=== PATIENT | female | born 1945 | race Hispanic/Latino ===

== ENCOUNTER 2017-02-19 13:09 | Inpatient (IN) | payer MEDICARE ==
[2017-02-19 13:09] VITALS: PULSE 92
[2017-02-19 13:57] VITALS: BMI 27.7
[2017-02-19] MEDS ORDERED: cefTRIAXone 1 gm 100 ML IV STA (14:40)
[2017-02-19] MEDS ORDERED: Albuterol-Ipratrop 3 mg / 0.5 (3 ml) UD IH STA (14:40)
[2017-02-19] MEDS ORDERED: Azithromycin 500MG/NS 250ml 250 ML IVPB STA (14:40)
[2017-02-19 15:26] LABS: ADD MANUAL DIFF? NO
[2017-02-19 15:40] LABS: BASO # 0.02 K/mm3 (0.0-2.0); BASO % 0.2 % (0.0-3.0); EOS # 0.2 (0.0-0.7); EOS % 1.5 % (1.5-5.0); GRAN # 10.27 (1.4-6.5); GRAN % 80.1 % (50.0-68.0); LYMPH # 1.4 (1.2-3.4); LYMPH % 10.6 % (22.0-35.0); MEAN CELL VOLUME 95.1 fL (80.0-105.0); MEAN CORPUSCULAR HEMOGLOBIN 32.3 pg (25.0-35.0); MEAN PLATELET VOLUME 9.9 fl (7.0-11.0); MONO % 7.6 % (1.0-6.0); PLATELET COUNT 207 10^3/uL (120.0-450.0); RED CELL DISTRIBUTION WIDTH 12.9 % (11.5-14.5); WHITE BLOOD COUNT 12.8 10^3/ul (4.5-11.0)
[2017-02-19 15:43] LABS: BILIRUBIN,TOTAL 0.5 mg/dL (0.2-1.3); CALCIUM 9.1 mg/dL (8.4-10.5); TOTAL PROTEIN 7.6 g/dL (5.8-8.3)
[2017-02-19 15:54] LABS: TROPONIN I 0.03 ng/mL
--- NOTE | 2017-02-19 15:54 | ED PDOC ---
Arrival/HPI - General Chief Complaint: Medical Clearance Time Seen by Provider: 02/19/17 13:26 - History of Present Illness Narrative History of Present Illness (Text): 02/19/17 15:54 71yo female with hx of CAD, CHF, DM, with cough. Also reports low grade fevers at home. No sob/clancy. Denies cp. Denies relieving or exacerbating symptoms. No other complaints. Past Medical History - Provider Review Nursing Documentation Reviewed: Yes - Infectious Disease Hx of Infectious Diseases: None - Tetanus Immunization Tetanus Immunization: Unknown - Cardiac Hx Cardiac Disorders: Yes Hx Congestive Heart Failure: Yes Hx Hypertension: Yes - Pulmonary Hx Respiratory Disorders: No - Neurological Hx Neurological Disorder: No - HEENT Hx Cataracts: Yes (bilateral laser sx) - Renal Hx Renal Failure: Yes - Endocrine/Metabolic Hx Diabetes Mellitus Type 2: Yes - Hematological/Oncological Hx Blood Disorders: No (MRSA H/O) - Integumentary Other/Comment: STage 3 sacral ulcers. BLE redness w/ scattered scabs. Under breasts folds redness. Bilateral under belly Folds redness skin excoriated - Musculoskeletal/Rheumatological Hx Arthritis: Yes - Gastrointestinal Hx Gastrointestinal Disorders: Yes (umbilical hernia) Hx Ileostomy: Yes - Genitourinary/Gynecological Hx Genitourinary Disorders: No - Psychiatric Hx Psychophysiologic Disorder: No Hx Substance Use: No - Surgical History Hx Amputation: Yes (Left great toe) Hx Cholecystectomy: Yes Hx Open Heart Surgery: Yes Other/Comment: ILEOSTOMY - Anesthesia Hx Anesthesia: Yes Hx Anesthesia Reactions: No Hx Malignant Hyperthermia: No - Suicidal Assessment Feels Threatened In Home Enviroment: No Family/Social History Family/Social History: Unknown Family HX Smoking Status: Former Smoker Hx Alcohol Use: No Hx Substance Use: No Hx Substance Use Treatment: No Allergies/Home Meds Allergies/Adverse Reactions: Allergies shellfish derived Allergy (Verified 02/19/17 13:57) ANAPHYLAXIS Home Medications: Home Meds Medication Instructions Recorded Confirmed Ascorbic Acid [Vitamin C 500 mg 500 mg PO DAILY 02/19/17 02/19/17 Tab] Aspirin [Ecotrin] 81 mg PO DAILY 02/19/17 02/19/17 Cholecalciferol [Vitamin D 1000 IU] 1,000 iu PO DAILY 02/19/17 02/19/17 Cyanocobalamin (Vitamin B-12) 1,000 mcg PO BID 02/19/17 02/19/17 [B-12] Furosemide [Lasix] 80 mg PO BID 02/19/17 02/19/17 Insulin Human NPH [Humulin N] 0 units SC BID 02/19/17 02/19/17 Insulin Human Regular [HumuLIN R] 0 units SC ACHS 02/19/17 02/19/17 Isosorbide Dinitrate 60 mg PO DAILY 02/19/17 02/19/17 Magnesium Glycinate [Mag Glycinate] 500 mg PO DAILY 02/19/17 02/19/17 Metoprolol Tartrate [Lopressor] 100 mg PO BID 02/19/17 02/19/17 Multivitamin [Multivitamins] 1 tab PO DAILY 02/19/17 02/19/17 Pantoprazole Sodium [Protonix] 40 mg PO DAILY 02/19/17 02/19/17 Potassium Chloride [Klor-Con 10 meq PO DAILY 02/19/17 02/19/17 Sprinkle] Primidone [Mysoline] 50 mg PO DAILY 02/19/17 02/19/17 metOLazone [Zaroxolyn] 2.5 mg PO DAILY 02/19/17 02/19/17 Physical Exam - Physical Exam Narrative Physical Exam (Text): - Review of Systems Constitutional: Fevers. absent: Fatigue, Weight Change Eyes: Normal ENT: denies sore throat, denies tristhmus Respiratory: cough. absent: SOB, Sputum Cardiovascular: absent: Chest Pain, Palpitations, Syncope Gastrointestinal: Normal. absent: Abdominal Pain, Diarrhea, Nausea, Vomiting Genitourinary: Normal. absent: Dysuria, Frequency, Hematuria, vaginal bleeding Musculoskeletal: Normal. absent: Arthralgias, Back Pain, Neck Pain Skin: no rashes, no erythema Neurological: absent: Focal Weakness Endocrine: Normal Hemo/Lymphatic: Normal Psychiatric: No suicidal or homicidal ideations Physical exam Patient appears age appropriate in no distress, speaking full sentences without difficulty - Systems Exam Head: Present: Atraumatic, Normocephalic Pupils: Present: PERRL Extroacular Muscles: Present: EOMI Conjunctiva: Present: Normal Mouth: Present: Moist Mucous Membranes Neck: Present: Normal Range of Motion. No: MIDLINE TENDERNESS, Paraspinal Tenderness Respiratory/Chest: Present: L. sided rhonchi, Good Air Exchange. No: Respiratory Distress, Accessory Muscle Use, Tachypneic Cardiovascular: Present: Regular Rate and Rhythm, Normal S1, S2, Peripheal Pulses Present. No: Murmurs Abdomen: Present: Normal Bowel Sounds. No: Tenderness, Distention, Peritoneal Signs, Rebound, Guarding Back: Present: Normal Inspection. No: Midline Tenderness, Paraspinal Tenderness Upper Extremity: Present: Normal Inspection. No: Cyanosis, Edema Lower Extremity: Present: Normal Inspection. No: Edema Neurological: Present: GCS=15, Speech Normal, cranial nerves II through XII fully intact with no cerebellar abnormality, neurosensory fully intact. No focal neurological deficits. Skin: Present: Warm, Dry, Normal Color. No: Rashes Lymphatic: Present: OX3, NI, NC Psychiatric: Present: Alert, Oriented x 3, Normal Insight, Normal Concentration Vital Signs Reviewed: Yes Vital Signs Temp Pulse Resp BP Pulse Ox 02/19/17 19:08 75 16 101/69 98 02/19/17 17:18 68 18 108/65 97 02/19/17 15:08 67 18 105/69 97 02/19/17 13:59 98.3 F 69 16 103/67 97 Temperature: Afebrile Blood Pressure: Normal Pulse: Regular Respiratory Rate: Normal Appearance: Positive for: Well-Appearing Pain Distress: None Mental Status: Positive for: Alert and Oriented X 3 Medical Decision Making ED Course and Treatment: 71-year-old female with history of CHF and coronary artery disease presents the emergency department with fevers, chills, cough, and left sided rhonchi on examination. Differential diagnoses includes but not limited to: Pneumonia versus CHF 02/19/17 17:06 CXR shows R. lobar infiltrate, cardiomegaly, pacemaker, no effusions. Interpreted by de abx ordered case dw Marlyn Flannery and Stephanie, aware of remote tele admission pt aware of and agrees with plan 02/19/17 17:24 EKG shows normal sinus, 80 bpm, no ST segment elevations. Interpreted by me - Lab Interpretations Microbiology Results: Microbiology Results 02/19/17 15:35 Blood-Venous Blood Culture - Preliminary NO GROWTH AFTER 3 DAYS 02/19/17 15:15 Blood-Venous Blood Culture - Preliminary NO GROWTH AFTER 3 DAYS Lab Results: 02/19/17 15:15 02/19/17 15:15 Lab Results 02/19/17 15:15: Phosphorus 4.4, Magnesium 2.2 02/19/17 15:15: Sodium 133, Potassium 4.0, Chloride 96 L, Carbon Dioxide 23, Anion Gap 18, BUN 67 H, Creatinine 2.6 H, Est GFR ( Amer) 22, Est GFR ( Non-Af Amer) 18, Random Glucose 146 H, Calcium 9.1, Total Bilirubin 0.5, AST 32 , ALT 29, Alkaline Phosphatase 100, Troponin I 0.03 D, NT-Pro-B Natriuret Pep 30057 H, Total Protein 7.6, Albumin 3.8, Globulin 3.8, Albumin/Globulin Ratio 1.0 L 02/19/17 15:15: PT 11.3, INR 1.05, APTT 34.5 H 02/19/17 15:15: WBC 12.8 H, RBC 3.68, Hgb 11.9 L, Hct 35.0 L, MCV 95.1, MCH 32.3 , MCHC 34.0, RDW 12.9, Plt Count 207, MPV 9.9, Gran % 80.1 H, Lymph % (Auto) 10.6 L, [place] % (Auto) 7.6 H, Eos % (Auto) 1.5, Baso % (Auto) 0.2, Gran # 10.27 H , Lymph # 1.4, [place] # 1.0 H, Eos # 0.2, Baso # 0.02 - RAD Interpretation Radiology Orders: 02/19/17 15:49 CHEST PORTABLE [RAD] Stat - Medication Orders Current Medication Orders: Discontinued Medications Acetaminophen (Tylenol 325mg Tab) Confirm Administered Dose 650 mg .ROUTE .STK- MED ONE Stop: 02/20/17 04:33 Last Admin: 02/20/17 22:23 Dose: Acetaminophen (Tylenol 325mg Tab) 650 mg PO ONCE ONE Stop: 02/20/17 04:31 Last Admin: 02/20/17 22:23 Dose: Acetaminophen (Tylenol 325mg Tab) 650 mg PO Q6H PRN PRN Reason: Pain, moderate (4-7) Last Admin: 02/22/17 07:51 Dose: 650 mg Albuterol/Ipratropium (Duoneb 3 Mg/0.5 Mg (3 Ml) Ud) 3 ml IH STAT STA Stop: 02/19/17 14:41 Last Admin: 02/19/17 15:25 Dose: 3 ml Ascorbic Acid (Vitamin C 500 Mg Tab) 500 mg PO DAILY [facility] Last Admin: 02/22/17 09:24 Dose: 500 mg Aspirin (Ecotrin) 81 mg PO DAILY [facility] Last Admin: 02/22/17 09:19 Dose: 81 mg Budesonide (Pulmicort Respules) 0.5 mg IH [id number] [facility] Last Admin: 02/22/17 08:39 Dose: 0.5 mg Cholecalciferol (Vitamin D) 1,000 iu PO DAILY [facility] Last Admin: 02/22/17 09:24 Dose: 1,000 iu Cyanocobalamin (Vitamin B12 1000 Mcg Tab) 1,000 mcg PO BID [facility] Last Admin: 02/22/17 09:24 Dose: 1,000 mcg Furosemide (Lasix) 80 mg PO BID [facility] Last Admin: 02/22/17 09:21 Dose: 80 mg Heparin Sodium (Porcine) (Heparin) 5,000 units SC Q12 [facility] Last Admin: 02/22/17 09:19 Dose: 5,000 units Heparin Sodium (Porcine) (Heparin Lock Flush) Confirm Administered Dose 900 unit .ROUTE .STK-MED ONE Stop: 02/20/17 12:36 Last Admin: 02/20/17 12:41 Dose: 900 unit Azithromycin (Zithromax 500mg In Ns) 250 mls @ 167 mls/hr IVPB STAT STA PRN Reason: Protocol Stop: 02/19/17 16:09 Last Admin: 02/19/17 16:26 Dose: 167 mls/hr Ceftriaxone Sodium (Rocephin 1 Gram Ivpb) 100 mls @ 200 mls/hr IV STAT STA PRN Reason: Protocol Stop: 02/19/17 15:09 Last Admin: 02/19/17 15:15 Dose: 200 mls/hr Azithromycin (Zithromax 500mg In Ns) 250 mls @ 167 mls/hr IVPB DAILY [facility] PRN Reason: Protocol Ceftriaxone Sodium (Rocephin 1 Gram Ivpb) 100 mls @ 100 mls/hr IVPB DAILY [facility] PRN Reason: Protocol Last Admin: 02/22/17 09:22 Dose: 100 mls/hr Doxycycline Hyclate 100 mg/ (Sodium Chloride) 100 mls @ 100 mls/hr IVPB Q12H [facility] Last Admin: 02/22/17 09:23 Dose: 100 mls/hr Insulin Human Lispro (Humalog Low) 0 units SC ACHS [facility] PRN Reason: Protocol Last Admin: 02/22/17 07:49 Dose: 2 units Isosorbide Mononitrate (Imdur) 60 mg PO DAILY [facility] Last Admin: 02/22/17 09:20 Dose: 60 mg Levalbuterol HCl (Xopenex) 0.63 mg IH [id number] [facility] Last Admin: 02/22/17 08:39 Dose: 0.63 mg Levalbuterol HCl (Xopenex) 0.63 mg IH Q2 PRN PRN Reason: Shortness of Breath Metolazone (Zaroxolyn) 2.5 mg PO DAILY [facility] Last Admin: 02/22/17 09:25 Dose: 2.5 mg Metoprolol Tartrate (Lopressor) 100 mg PO BID [facility] Last Admin: 02/22/17 09:21 Dose: 100 mg Multivitamins (Thera Tab) 1 tab PO DAILY [facility] Last Admin: 02/22/17 09:23 Dose: 1 tab Non-Formulary Medication (Magnesium Glycinate [Mag Glycinate]) 500 mg PO DAILY [facility] Last Admin: 02/21/17 16:42 Dose: Pantoprazole Sodium (Protonix Ec Tab) 40 mg PO DAILY [facility] Last Admin: 02/22/17 09:22 Dose: 40 mg Potassium Chloride (Klor-Con 10) 10 meq PO BRK [facility] Last Admin: 02/22/17 09:20 Dose: 10 meq Primidone (Mysoline) 50 mg PO HS [facility] Last Admin: 02/21/17 22:33 Dose: 50 mg Disposition/Present on Arrival - Present on Arrival Any Indicators Present on Arrival: No History of DVT/PE: No History of Uncontrolled Diabetes: No Urinary Catheter: No History of Decub. Ulcer: No History Surgical Site Infection Following: None - Disposition Have Diagnosis and Disposition been Completed?: Yes Diagnosis: Pneumonia Disposition: HOSPITALIZED Disposition Time: 17:09 Patient Plan: Admission Condition: GOOD
[2017-02-19 17:14] LABS: INR 1.05 (0.93-1.08); PARTIAL THROMBOPLASTIN TIME 34.5 Seconds (23.7-30.8)
--- NOTE | 2017-02-19 17:49 | CP.PCM.HP ---
<Anthony Colbert - Last Filed: 02/19/17 21:19> History of Present Illness - History of Present Illness History of Present Illness: cc: fever/cough HPI: Patient is a 71yo female with past medical history of CAD s/p CABG, CHF s/ p pacemaker placement, DM type 2, CKD, AAA s/p repair that presented c/o cough and low-grade fevers at home. Patient states that her symptoms started 5 days ago when she began to have productive cough (white phlegm) and low grade fevers (temp 99.3F) at home. She reported taking tylenol which provided moderate relief at first. She stated that she was feeling better originally, however lately her cough has been getting worse. She stated that she was seen by her PMD today, Dr. Flannery who instructed her to come to the emergency room. On arrival to the ED, patient's vitals were as follows: temperature 98.3F, heart rate 69bpm, blood pressure 103/67, respiratory rate 16, o2 saturation 97% on room air. Her labs were notable for a WBC count of 12.8 with left shift, H/H of 11.9/35.0, BUN 67, creatinine 2[place]6 [place] [address]. She denied chest pain , palpitations, SOB, abdominal pain, nausea, vomiting, focal weakness, numbness , tingling, dysuria, frequency, urgency, sick contacts, recent travel. 12 point ROS as per HPI above, otherwise negative PMHx: CAD s/p CABG, CHF s/p pacemaker placement, DM type 2, CKD, AAA s/p repair PSHx: CABG, ileostomy, endovascular repair of AAA, cholecystectomy, pacemaker placement, left toe amputation Allergies: shellfish Medications: reviewed and as per chart Social hx: former tobacco use (quit 16 yrs ago), denies alcohol and illicit drugs Family Hx: Mother: Uterine/Breast Ca; Father: CHF, throat Ca; Brother: leukemia , heart transplant Present on Admission - Present on Admission Any Indicators Present on Admission: No Past Patient History - Infectious Disease Hx of Infectious Diseases: None - Tetanus Immunizations Tetanus Immunization: Unknown - Past Social History Smoking Status: Former Smoker - CARDIAC Hx Cardiac Disorders: Yes Hx Congestive Heart Failure: Yes Hx Hypertension: Yes - PULMONARY Hx Respiratory Disorders: No - NEUROLOGICAL Hx Neurological Disorder: No - HEENT Hx Cataracts: Yes (bilateral laser sx) - RENAL Hx Renal Failure: Yes - ENDOCRINE/METABOLIC Hx Diabetes Mellitus Type 2: Yes - HEMATOLOGICAL/ONCOLOGICAL Hx Blood Disorders: No (MRSA H/O) - INTEGUMENTARY Other/Comment: STage 3 sacral ulcers. BLE redness w/ scattered scabs. Under breasts folds redness. Bilateral under belly Folds redness skin excoriated - MUSCULOSKELETAL/RHEUMATOLOGICAL Hx Arthritis: Yes - GASTROINTESTINAL Hx Gastrointestinal Disorders: Yes (umbilical hernia) Hx Ileostomy: Yes - GENITOURINARY/GYNECOLOGICAL Hx Genitourinary Disorders: No - PSYCHIATRIC Hx Psychophysiologic Disorder: No Hx Substance Use: No - SURGICAL HISTORY Hx Amputation: Yes (Left great toe) Hx Cholecystectomy: Yes Hx Open Heart Surgery: Yes Other/Comment: ILEOSTOMY - ANESTHESIA Hx Anesthesia: Yes Hx Anesthesia Reactions: No Hx Malignant Hyperthermia: No Meds Allergies/Adverse Reactions: Allergies Allergy/AdvReac Type Severity Reaction Status Date / Time shellfish derived Allergy ANAPHYLAXIS Verified 02/19/17 13:57 Physical Exam - Constitutional Appears: Non-toxic, No Acute Distress - Head Exam Head Exam: ATRAUMATIC, NORMAL INSPECTION, NORMOCEPHALIC - Eye Exam Eye Exam: EOMI, PERRL - ENT Exam ENT Exam: Mucous Membranes Moist - Neck Exam Neck exam: Positive for: Normal Inspection. Negative for: Lymphadenopathy, Tenderness, Thyromegaly - Respiratory Exam Respiratory Exam: Rhonchi. absent: Accessory Muscle Use, Clear to Auscultation Bilateral, Rales, Wheezes, Stridor - Cardiovascular Exam Cardiovascular Exam: RRR, +S1, +S2. absent: Clicks, Gallop, JVD, Rubs - GI/Abdominal Exam GI & Abdominal Exam: Normal Bowel Sounds, Soft. absent: Distended, Firm, Guarding, Rebound, Tenderness - Extremities Exam Extremities exam: Negative for: pedal edema - Neurological Exam Neurological exam: Alert, Oriented x3 - Psychiatric Exam Psychiatric exam: Normal Affect, Normal Mood - Skin Skin Exam: Dry, Intact, Normal Color, Warm Results - Vital Signs Recent Vital Signs: Last Vital Signs Temp 98.3 F 02/19/17 13:59 Pulse 68 02/19/17 17:18 Resp 18 02/19/17 17:18 BP 108/65 02/19/17 17:18 Pulse Ox 97 02/19/17 17:18 - Labs Result Diagrams: 02/19/17 15:15 02/19/17 15:15 Labs: Laboratory Results - last 24 hr 02/19/17 15:15 WBC 12.8 H RBC 3.68 Hgb 11.9 L Hct 35.0 L MCV 95.1 MCH 32.3 MCHC 34.0 RDW 12.9 Plt Count 207 MPV 9.9 Gran % 80.1 H Lymph % (Auto) 10.6 L [place] % (Auto) 7.6 H Eos % (Auto) 1.5 Baso % (Auto) 0.2 Gran # 10.27 H Lymph # 1.4 [place] # 1.0 H Eos # 0.2 Baso # 0.02 PT 11.3 INR 1.05 APTT 34.5 H Sodium 133 Potassium 4.0 Chloride 96 L Carbon Dioxide 23 Anion Gap 18 BUN 67 H Creatinine 2.6 H Est GFR ( Amer) 22 Est GFR (Non-Af Amer) 18 Random Glucose 146 H Calcium 9.1 Total Bilirubin 0.5 AST 32 ALT 29 Alkaline Phosphatase 100 Troponin I 0.03 D NT-Pro-B Natriuret Pep 55151 H Total Protein 7.6 Albumin 3.8 Globulin 3.8 Albumin/Globulin Ratio 1.0 L Assessment & Plan - Assessment and Plan (Free Text) Assessment: 71yo female with history of CAD s/p CABG, CHF s/p pacemaker placement, DM type 2 , CKD, AAA s/p repair that presented c/o cough and low-grade fevers at home admitted for community acquired pneumonia Plan: 1. Cough likely 2/2 community acquired pneumonia vs CHF exacerbation -Leukocytosis of 12.8 with left shift on admission, afebrile -CXR reviewed; concerning for possible RML infiltrate, pending official read -Continue with rocephin and azithromycin -Pending: Blood and urine cultures, strep pneum, legionella antigen 2. CHF, likely compensated -NT-proBNP 38473 -Continue home medications lasix, metolazone -Monitor I's and O's -Daily weight 3. DM type 2 -Humalog low dose ISS -Fingersticks ACHS -Consistent carb/heart healthy diet 4. CKD -Will continue to monitor renal function -monitor and replete electrolytes as needed 5. CAD -Continue metoprolol, isosorbide, ASA 81 6. GI/DVT prophylaxis -Protonix/Heparin Case discussed with attending, Dr. Flannery - Date & Time Date: 02/19/17 Time: 18:14 <Yariel Flannery - Last Filed: 03/30/17 08:06> Results - Vital Signs Recent Vital Signs: Last Vital Signs Temp 97.6 F 02/22/17 06:00 Pulse 75 02/22/17 10:00 Resp 19 02/22/17 06:00 BP 140/75 02/22/17 09:21 Pulse Ox 98 02/22/17 06:00 - Labs Result Diagrams: 02/22/17 06:30 02/22/17 06:30 Attending/Attestation - Attestation I have personally seen and examined this patient.: Yes I have fully participated in the care of the patient.: Yes I have reviewed all pertinent clinical information: Yes Notes (Text): 03/30/17 08:04 Medical record note made by the resident after discussion with my direction and input after the patient was personally seen and examined by me. I have reviewed the chart and agree that the record reflects my personal performance of history, physical, data review and course for the patient that I have planned.
[2017-02-19] MEDS ORDERED: CYANOCOBALAMIN 1000 MCG PO SCH (18:00)
[2017-02-19 18:51] LABS: MAGNESIUM 2.2 mg/dL (1.7-2.2); PHOSPHOROUS 4.4 mg/dL (2.5-4.5)
[2017-02-19] MEDS: Insulin Lispro (humaLOG) LOW Coverage SC SCH (22:45)
[2017-02-20 00:14] LABS: URINE BILIRUBIN NEGATIVE (NEGATIVE); URINE BLOOD TRACE-INTACT (NEGATIVE); URINE GLUCOSE (UA) NEGATIVE (NEGATIVE); URINE KETONE NEGATIVE (NEGATIVE); URINE LEUKOCYTE ESTERASE NEGATIVE Leu/uL (NEGATIVE); URINE PROTEIN 100 mg/dL (<30 mg/dL); URINE UROBILINOGEN 0.2 E.U./dL (<1 E.U./dL)
[2017-02-20 00:21] LABS: URINE APPEARANCE CLEAR (CLEAR); URINE COLOR YELLOW (YELLOW)
[2017-02-20 00:26] LABS: URINE EPITHELIAL CELLS 0 - 2 /hpf (0-5); URINE WBC 0 - 2 /hpf (0-6)
[2017-02-20 06:51] LABS: ADD MANUAL DIFF? NO
[2017-02-20 07:05] LABS: BASO # 0.02 K/mm3 (0.0-2.0); BASO % 0.2 % (0.0-3.0); EOS # 0.2 (0.0-0.7); EOS % 1.6 % (1.5-5.0); GRAN # 8.45 (1.4-6.5); GRAN % 77.2 % (50.0-68.0); HEMATOCRIT 34.8 % (36.0-48.0); LYMPH # 1.3 (1.2-3.4); LYMPH % 12.1 % (22.0-35.0); MEAN CELL VOLUME 94.3 fL (80.0-105.0); MEAN CORPUSCULAR HEMOGLOBIN 31.7 pg (25.0-35.0); MEAN CORPUSCULAR HGB CONC 33.6 g/dl (31.0-37.0); MONO % 8.9 % (1.0-6.0); PLATELET COUNT 202 10^3/uL (120.0-450.0); RED CELL DISTRIBUTION WIDTH 12.8 % (11.5-14.5)
[2017-02-20 07:21] LABS: BILIRUBIN,TOTAL 0.6 mg/dL (0.2-1.3); POTASSIUM 3.7 mmol/L (3.6-5.0); TOTAL PROTEIN 7.4 g/dL (5.8-8.3)
--- NOTE | 2017-02-20 08:07 | RAD ---
HISTORY: cough COMPARISON: 12/12/2014 FINDINGS: LUNGS: Bibasilar opacity new since prior examination. Infiltrate versus atelectasis. Follow-up advised. PLEURA: No significant pleural effusion identified, no pneumothorax apparent. CARDIOVASCULAR: AICD. Right central venous infusion port. No change. Sternotomy wires. Normal heart size. OSSEOUS STRUCTURES: No significant abnormalities. VISUALIZED UPPER ABDOMEN: Normal. OTHER FINDINGS: None. IMPRESSION: New bibasilar opacities, nonspecific. Rule out pneumonia. Followup advised.
[2017-02-20] MEDS ORDERED: Levalbuterol 0.63 MG/3 ML Inhal Soln UD IH PRN (08:30)
[2017-02-20] MEDS: Insulin Lispro (humaLOG) LOW Coverage SC SCH ×4 (08:30→22:05)
[2017-02-20] MEDS: Potassium Chloride 10 mEq ER Tab PO SCH (09:00)
[2017-02-20] MEDS ORDERED: Azithromycin 500MG/NS 250ml 250 ML IVPB SCH (10:00)
--- NOTE | 2017-02-20 10:04 | CON ---
DATE: 02/20/2017 PULMONARY CONSULTATION REASON FOR CONSULTATION: Pneumonia. REFERRING PHYSICIAN: Yariel Flannery MD. HISTORY OF PRESENT ILLNESS: The patient is a 71-year-old female with past medical history significant for coronary artery disease, status post coronary bypass graft surgery, recurrent congestive heart failure, end-stage cardiomyopathy, status post permanent pacemaker, diabetes mellitus, chronic kidney disease, peripheral vascular disease, who presents to [facility] with a 5-day history of progressive shortness of breath at rest, dyspnea on exertion, cough, and minimal sputum production. There is no history of chest pain, coughing up of blood, or chest pain - made worse with deep respirations. The patient does state to low-grade fevers at home. No history of chills or infectious exposure. No history of night sweats, weight loss, or appetite change prior to the above events. No history of leg or calf pains. No history of syncope or diaphoresis. No history of recent travel or trauma. REVIEW OF SYSTEMS: No history of nausea, vomiting, or diarrhea. No acute urinary symptoms. No new neurological or musculoskeletal complaints. The rest of the review of systems is negative. ALLERGIES: SHELLFISH. SOCIAL HISTORY: Positive for tobacco, negative for alcohol. FAMILY HISTORY: No inheritable diseases. HOME MEDICATIONS: Include Mysoline, Humulin, Zaroxolyn, Ecotrin, Protonix, Lopressor, Lasix, isosorbide dinitrate. PHYSICAL EXAMINATION: GENERAL: The patient appears comfortable this morning. She is not short of breath at rest. VITAL SIGNS: Temperature is 98.3, pulse 86, respirations 19, blood pressure 117 /80. Oxygen saturation on nasal cannula is 98%. HEENT: Normocephalic, atraumatic. NECK: No JVD. CARDIOVASCULAR: Systolic ejection murmur at the lower left sternal border. Positive S3 gallop. LUNGS: Minimal crackles at the bases. Minimal rhonchi. No wheezing. EXTREMITIES: Mild edema. No cyanosis, no clubbing. Calves are nontender to palpation. GASTROINTESTINAL: Abdomen is soft, nontender, nondistended. Bowel sounds are positive. SKIN: Positive for edema. No cyanosis, no clubbing. Calves are nontender to palpation. NEUROLOGIC: Limited at the present time. PERTINENT LABORATORY DATA: Chest x-ray was done and reviewed. There is a new small patchy infiltrate noted at the right base. There is also a mild increase in pulmonary vascular congestive changes. CBC: White count 11.0, hemoglobin 11.7, hematocrit 34.8, platelets of 202. Initial white count 12.8. Complete metabolic profile: BUN 63, creatinine 2.3, glucose 176, B-type natriuretic peptide 62069. The rest of the metabolic profile is within normal limits. IMPRESSION: 1. Right lower lobe pneumonia. 2. Recurrent congestive heart failure. 3. End-stage cardiomyopathy. 4. Coronary artery disease. 5. Chronic kidney disease. PLAN: The patient presents to [facility] with a 5-day history of worsening pulmonary symptoms. I did review the chest x-ray as above. There is a new patchy infiltrate noted at the right lower lobe. Arce cultures have been ordered and will be analyzed when feasible. The patient has been started on appropriate antibiotic therapy. I would continue with the current antibiotic therapy for now. There have been no temperatures measured in the hospital. The leukocytosis has now resolved. On physical exam, the patient is mild bronchospasm. I will start Xopenex nebulizer treatments and inhaled steroids this morning. The patient remains on Lasix/afterload reduction. The patient does state to feeling much better this morning - compared to the past few days. She is clinically improved. Additional pulmonary intervention will be based on the clinical status of the patient. I will discuss the above with Dr. Flannery. Thank you very much for this pulmonary consultation. Andrei Corona MD cc: [phone] TT: 02/20/2017 10:04:34 Confirmation # [id number] Dictation # [id number] MTDD
[2017-02-20] MEDS: Pantoprazole 40 mg EC Tab PO SCH (10:27)
[2017-02-20] MEDS: Multivitamin Therapeutic Tab PO SCH (10:27)
[2017-02-20] MEDS: MAGNESIUM GLYCINATE PO SCH (10:28)
[2017-02-20] MEDS: cefTRIAXone 1 gm 100 ML IVPB SCH (10:28)
[2017-02-20] MEDS: metOLazone 2.5 MG TAB PO SCH (10:38)
--- NOTE | 2017-02-20 11:22 | CARD ---
APPROVED REPORT EKG Measurement Heart [id number] <Conclusion> Normal sinus rhythm Possible Left atrial enlargement Left ventricular hypertrophy with repolarization abnormality Abnormal ECG
--- NOTE | 2017-02-20 12:47 | CON ---
DATE: 02/20/2017 HISTORY OF PRESENT ILLNESS: The patient is a 71-year-old woman who presents with pneumonia. The patient denies shortness of breath. PAST MEDICAL HISTORY: Notable for end-stage dilated cardiomyopathy with recurrent CHF and which she was treated with home inotropic therapy for a while. After much control with diet and salt intake, t he patient was weaned off the inotropic therapy and has been off inotropes for several months now. Her ejection fraction is approximately 20%. She is status post ICD placement. She denies chest pain, denies edema in the lower extremities. SOCIAL HISTORY: Denies active smoking. REVIEW OF SYSTEMS: A 14-point review of systems was reviewed in detail. The patient is free of card iac symptomatology. PHYSICAL EXAMINATION: VITAL SIGNS: Blood pressure is 120/70, heart rate is in the 80s. NECK: Negative JVD. LUNGS: Minimal crackles at the bases. HEART: Reveals S1, S2. EXTREMITIES: Without edema. LABORATORY DATA: EKG shows no acute changes. Hemoglobin is 11.7. Chemistries: Glucose is 176 with a BUN and creatinine of 63 and 2.3. ProBNP is greater than 14,000. IMPRESSION: 1. Pneumonia. 2. Mild acute systolic congestive heart failure. 3. End-stage dilated cardiomyopathy. 4. Diabetes mellitus. 5. Renal insufficiency. 6. Anemia. PLAN: Given these findings, I agree with giving IV Lasix. IV antibiotics have been ordered. There is no indication at this time for IV inotropic therapy. Vinnie Vidales MD cc: [id number] TT: 02/20/2017 12:46:22 Confirmation # [id number] Dictation # [id number] chu
[2017-02-20] MEDS: Levalbuterol 0.63 MG/3 ML Inhal Soln UD IH SCH ×2 (13:29→20:29)
--- NOTE | 2017-02-20 14:10 | CP.PCM.PN ---
<Anthony Colbert - Last Filed: 02/20/17 17:55> Subjective - Date & Time of Evaluation Date of Evaluation: 02/20/17 Time of Evaluation: 14:07 - Subjective Subjective: Medicine progress note - Anthony Colbert PGY1 Patient seen and examined at bedside this morning. No acute overnight events or new complaints. Discussed patient's test results and current plan of treatment. She is getting IV antibiotics for her CAP infection. Patient to be evaluated by cardiology and pulmonology. Objective - Vital Signs/Intake and Output Vital Signs (last 24 hours): Temp Pulse Resp BP Pulse Ox 98.3 F 90 19 120/70 98 02/20/17 01:03 02/20/17 02:00 02/20/17 01:03 02/20/17 11:59 02/20/17 13:31 - Medications Medications: Current Medications Ascorbic Acid (Vitamin C 500 Mg Tab) 500 mg PO DAILY [facility] Last Admin: 02/20/17 10:27 Dose: 500 mg Aspirin (Ecotrin) 81 mg PO DAILY [facility] Last Admin: 02/20/17 10:27 Dose: 81 mg Budesonide (Pulmicort Respules) 0.5 mg IH [id number] [facility] Cholecalciferol (Vitamin D) 1,000 iu PO DAILY [facility] Last Admin: 02/20/17 10:27 Dose: 1,000 iu Cyanocobalamin (Vitamin B12 1000 Mcg Tab) 1,000 mcg PO BID [facility] Last Admin: 02/20/17 10:38 Dose: 1,000 mcg Furosemide (Lasix) 80 mg PO BID [facility] Last Admin: 02/19/17 19:54 Dose: Not Given Heparin Sodium (Porcine) (Heparin) 5,000 units SC Q12 [facility] Last Admin: 02/20/17 10:29 Dose: 5,000 units Ceftriaxone Sodium (Rocephin 1 Gram Ivpb) 100 mls @ 100 mls/hr IVPB DAILY [facility] PRN Reason: Protocol Last Admin: 02/20/17 10:28 Dose: 100 mls/hr Doxycycline Hyclate 100 mg/ (Sodium Chloride) 100 mls @ 100 mls/hr IVPB Q12H [facility] Last Admin: 02/20/17 10:38 Dose: 100 mls/hr Insulin Human Lispro (Humalog Low) 0 units SC ACHS [facility] PRN Reason: Protocol Last Admin: 02/20/17 11:59 Dose: 4 units Isosorbide Mononitrate (Imdur) 60 mg PO DAILY [facility] Last Admin: 02/20/17 10:27 Dose: 60 mg Levalbuterol HCl (Xopenex) 0.63 mg IH [id number] [facility] Last Admin: 02/20/17 13:29 Dose: 0.63 mg Levalbuterol HCl (Xopenex) 0.63 mg IH Q2 PRN PRN Reason: Shortness of Breath Metolazone (Zaroxolyn) 2.5 mg PO DAILY [facility] Last Admin: 02/20/17 10:38 Dose: 2.5 mg Metoprolol Tartrate (Lopressor) 100 mg PO BID [facility] Last Admin: 02/19/17 19:54 Dose: Not Given Multivitamins (Thera Tab) 1 tab PO DAILY [facility] Last Admin: 02/20/17 10:27 Dose: 1 tab Non-Formulary Medication (Magnesium Glycinate [Mag Glycinate]) 500 mg PO DAILY [facility] Last Admin: 02/20/17 10:28 Dose: 500 mg Pantoprazole Sodium (Protonix Ec Tab) 40 mg PO DAILY [facility] Last Admin: 02/20/17 10:27 Dose: 40 mg Potassium Chloride (Klor-Con 10) 10 meq PO BRK [facility] Last Admin: 02/20/17 09:00 Dose: 10 meq Primidone (Mysoline) 50 mg PO HS [facility] Last Admin: 02/20/17 02:11 Dose: Not Given - Labs Labs: 02/20/17 05:00 02/20/17 06:25 PT 11.3 Seconds (9.9-11.8) 02/19/17 15:15 INR 1.05 (0.93-1.08) 02/19/17 15:15 APTT 34.5 Seconds (23.7-30.8) H 02/19/17 15:15 - Constitutional Appears: Non-toxic, No Acute Distress - Head Exam Head Exam: ATRAUMATIC, NORMAL INSPECTION, NORMOCEPHALIC - Eye Exam Eye Exam: EOMI, PERRL - ENT Exam ENT Exam: Mucous Membranes Moist - Neck Exam Neck Exam: Normal Inspection - Respiratory Exam Respiratory Exam: Rhonchi. absent: Clear to Ausculation Bilateral, Rales, Wheezes - Cardiovascular Exam Cardiovascular Exam: RRR, +S1, +S2. absent: Clicks, Gallop, Rubs, Murmur - GI/Abdominal Exam GI & Abdominal Exam: Soft, Normal Bowel Sounds. absent: Distended, Firm, Guarding, Tenderness, Rebound - Extremities Exam Extremities Exam: Normal Inspection - Neurological Exam Neurological Exam: Alert, Awake, Oriented x3 - Psychiatric Exam Psychiatric exam: Normal Affect, Normal Mood - Skin Skin Exam: Dry, Intact, Normal Color, Warm Assessment and Plan - Assessment and Plan (Free Text) Plan: 71yo female with history of CAD s/p CABG, CHF s/p pacemaker placement, DM type 2 , CKD, AAA s/p repair that presented c/o cough and low-grade fevers at home admitted for community acquired pneumonia 1. Cough likely 2/2 community acquired pneumonia vs CHF exacerbation -Leukocytosis of 12.8 with left shift on admission, afebrile -CXR reviewed; consistent with bibasilar community acquired pneumonia -Continue with rocephin and doxycycline -Pending: Blood and urine cultures, strep pneum, legionella antigen -Pulmonology consulted - Dr. Corona 2. CHF, likely compensated -NT-proBNP 35045 -Continue home medications lasix, metolazone -Monitor I's and O's -Daily weight -Cardiology consulted - Dr. Vidales 3. DM type 2 -Humalog low dose ISS -Fingersticks ACHS -Consistent carb/heart healthy diet 4. CKD -Will continue to monitor renal function -monitor and replete electrolytes as needed 5. CAD -Continue metoprolol, isosorbide, ASA 81 6. GI/DVT prophylaxis -Protonix/Heparin Case discussed with attending, Dr. Flannery <Yariel Flannery - Last Filed: 03/30/17 08:07> Objective - Vital Signs/Intake and Output Vital Signs (last 24 hours): Temp Pulse Resp BP Pulse Ox 97.6 F 75 19 140/75 98 02/22/17 06:00 02/22/17 10:00 02/22/17 06:00 02/22/17 09:21 02/22/17 06:00 - Labs Labs: 02/22/17 06:30 02/22/17 06:30 PT 11.3 Seconds (9.9-11.8) 02/19/17 15:15 INR 1.05 (0.93-1.08) 02/19/17 15:15 APTT 34.5 Seconds (23.7-30.8) H 02/19/17 15:15 Attending/Attestation - Attestation I have personally seen and examined this patient.: Yes I have fully participated in the care of the patient.: Yes I have reviewed all pertinent clinical information, including history, physical exam and plan: Yes Notes (Text): 03/30/17 08:06 Medical record note made by the resident after discussion with my direction and input after the patient was personally seen and examined by me. I have reviewed the chart and agree that the record reflects my personal performance of history, physical, data review and course for the patient that I have planned.
[2017-02-20] MEDS: Budesonide 0.5 mg/2 ml Inhal Susp UD IH SCH (20:29)
[2017-02-21] MEDS: Levalbuterol 0.63 MG/3 ML Inhal Soln UD IH SCH ×3 (02:10→19:46)
[2017-02-21] MEDS: Budesonide 0.5 mg/2 ml Inhal Susp UD IH SCH ×2 (07:49→19:46)
[2017-02-21] MEDS: Potassium Chloride 10 mEq ER Tab PO SCH (08:02)
[2017-02-21] MEDS: Insulin Lispro (humaLOG) LOW Coverage SC SCH ×4 (08:03→22:40)
[2017-02-21 08:36] LABS: ADD MANUAL DIFF? NO
[2017-02-21 08:39] LABS: BASO # 0.02 K/mm3 (0.0-2.0); BASO % 0.3 % (0.0-3.0); EOS # 0.3 (0.0-0.7); EOS % 3.7 % (1.5-5.0); GRAN # 5.25 (1.4-6.5); GRAN % 71.3 % (50.0-68.0); HEMATOCRIT 35.2 % (36.0-48.0); LYMPH # 1.2 (1.2-3.4); LYMPH % 16.7 % (22.0-35.0); MEAN CELL VOLUME 93.6 fL (80.0-105.0); MEAN CORPUSCULAR HEMOGLOBIN 31.4 pg (25.0-35.0); MEAN CORPUSCULAR HGB CONC 33.5 g/dl (31.0-37.0); MEAN PLATELET VOLUME 9.5 fl (7.0-11.0); MONO # 0.6 (0.1-0.6); PLATELET COUNT 194 10^3/uL (120.0-450.0); RED CELL DISTRIBUTION WIDTH 12.7 % (11.5-14.5); WHITE BLOOD COUNT 7.4 10^3/ul (4.5-11.0)
[2017-02-21 08:51] LABS: BILIRUBIN,TOTAL 0.5 mg/dL (0.2-1.3); CALCIUM 9.2 mg/dL (8.4-10.5); POTASSIUM 3.9 mmol/L (3.6-5.0); TOTAL PROTEIN 7.4 g/dL (5.8-8.3)
--- NOTE | 2017-02-21 10:29 | PN ---
DATE: 02/21/2017 SUBJECTIVE: The patient appears comfortable this morning. She is not short of breath at rest. PHYSICAL EXAMINATION: VITAL SIGNS: Temperature is 98.2, pulse 80, respirations 18/20, blood pressure 132/74. Oxygen saturation on room air is 97%. HEENT: Normocephalic, atraumatic. No JVD. CARDIOVASCULAR: Systolic ejection murmur at the lower left sternal border. Positive S3 gallop. LUNGS: Minimal crackles at the bases. Less rhonchi. No wheezing. EXTREMITIES: Mild edema. No cyanosis, no clubbing. Calves are nontender to palpation. GASTROINTESTINAL: Abdomen is soft, nontender, nondistended. Bowel sounds are positive. SKIN: No acute rash. NEUROLOGIC: Limited at the present time. IMPRESSION: 1. Right lower lobe pneumonia. 2. Recurrent congestive heart failure. 3. End-stage cardiomyopathy. 4. Coronary artery disease. 5. Chronic kidney disease. PLAN: The patient appears much more comfortable this morning. She is not short of breath at rest. She states she is feeling much better overall. On physical exam, there is certainly less bronchospasm noted. I will continue with the current nebulizer treatments and inhaled steroids for now. The patient also remains on antibiotic therapy. Her temperatures have resolved. Her leukocytosis has also resolved. Input by Dr. Vidales -- cardiology -- is noted. The patient remains on Lasix/afterload reduction. I have also ordered a repeat chest x-ray -- for this morning, and will check that when feasible. Clinical status of the patient is certainly improved. I have advised the patient to be out of bed and slowly increasing her activity as tolerated. I will discuss the above with Dr. Flannery. Andrei Corona MD cc: [phone] TT: 02/21/2017 10:29:13 Confirmation # [id number] Dictation # [id number] en MTDD
[2017-02-21] MEDS: cefTRIAXone 1 gm 100 ML IVPB SCH (10:34)
[2017-02-21] MEDS: Multivitamin Therapeutic Tab PO SCH (10:36)
[2017-02-21] MEDS: Pantoprazole 40 mg EC Tab PO SCH (10:36)
[2017-02-21] MEDS: metOLazone 2.5 MG TAB PO SCH (10:37)
--- NOTE | 2017-02-21 10:38 | RAD ---
HISTORY: follow up COMPARISON: 02/19/2017 TECHNIQUE: Chest PA and lateral FINDINGS: LUNGS: The bibasilar in near patchy opacities at each lung base are renoted and similar-appearing. As mentioned previously -bibasilar infiltrates and/or atelectatic changes are consistent with this. PLEURA: No significant pleural effusion identified. No pneumothorax apparent. Minimal left inferolateral pleural thickening reaction is probable CARDIOVASCULAR: Probable left ventricular enlargement -not significantly changed. AICD device in place. And a wires in place. Minimal tortuosity of the thoracic aorta similar-appearing. Right central venous port inserted- tip similar in appearance to the superior vena cava. OSSEOUS STRUCTURES: Inferior thoracic bilateral shoulder mild arthrosis VISUALIZED UPPER ABDOMEN: Normal. OTHER FINDINGS: None. IMPRESSION: Similar bibasilar linear and patchy opacities - bibasilar patchy infiltrate need be considered. Minimal left inferolateral pleural thickening also suggested. Overall the appearance is not significantly changed. No pulmonary venous congestion suggested on this exam
--- NOTE | 2017-02-21 14:29 | PN ---
DATE: 02/21/2017 The patient's breathing is stable. No shortness of breath noted. PHYSICAL EXAMINATION: VITAL SIGNS: Blood pressure varies from 132-170 systolic. The heart rate is in the 80s. NECK: Negative JVD. LUNGS: Without rales. HEART: Reveals S1, S2. EXTREMITIES: Without edema. LABORATORY DATA: BUN and creatinine are 54/1.9, glucose is 235. IMPRESSION: 1. Pneumonia. 2. End-stage dilated cardiomyopathy. 3. Coronary artery disease. 4. Diabetes mellitus. 5. Recurrent congestive heart failure, which is stable now. 6. Renal insufficiency. Given these findings, the patient is doing well. The patient is currently on antibiotics. There is no need to go back on IV Primacor. Vinnie Vidales MD cc: [id number] TT: 02/21/2017 14:28:36 Confirmation # [id number] Dictation # [id number] [email or web address]
--- NOTE | 2017-02-21 15:25 | CP.PCM.PN ---
<Anthony Colbert - Last Filed: 02/21/17 21:00> Subjective - Date & Time of Evaluation Date of Evaluation: 02/21/17 Time of Evaluation: 15:22 - Subjective Subjective: Medicine progress note - Anthony Colbert PGY1 Patient seen and examined at bedside this morning. No acute events overnight or new complaints. Patient currently on IV antibiotics for CAP, tolerating treatment well. Discussed plan with patient. Denies chest pain, palpitations, SOB. Objective - Vital Signs/Intake and Output Vital Signs (last 24 hours): Temp Pulse Resp BP Pulse Ox 98.2 F 83 20 170/93 H 97 02/21/17 06:00 02/21/17 10:36 02/21/17 06:00 02/21/17 10:36 02/21/17 06:00 Intake and Output: 02/21/17 02/21/17 06:59 18:59 Intake Total 1140 700 Balance 1140 700 - Medications Medications: Current Medications Acetaminophen (Tylenol 325mg Tab) 650 mg PO Q6H PRN PRN Reason: Pain, moderate (4-7) Last Admin: 02/21/17 00:41 Dose: 650 mg Ascorbic Acid (Vitamin C 500 Mg Tab) 500 mg PO DAILY [facility] Last Admin: 02/21/17 10:37 Dose: 500 mg Aspirin (Ecotrin) 81 mg PO DAILY [facility] Last Admin: 02/21/17 10:36 Dose: 81 mg Budesonide (Pulmicort Respules) 0.5 mg IH [id number] [facility] Last Admin: 02/21/17 07:49 Dose: 0.5 mg Cholecalciferol (Vitamin D) 1,000 iu PO DAILY [facility] Last Admin: 02/21/17 10:37 Dose: 1,000 iu Cyanocobalamin (Vitamin B12 1000 Mcg Tab) 1,000 mcg PO BID [facility] Last Admin: 02/21/17 10:37 Dose: 1,000 mcg Furosemide (Lasix) 80 mg PO BID [facility] Last Admin: 02/21/17 10:36 Dose: 80 mg Heparin Sodium (Porcine) (Heparin) 5,000 units SC Q12 [facility] Last Admin: 02/21/17 10:34 Dose: 5,000 units Ceftriaxone Sodium (Rocephin 1 Gram Ivpb) 100 mls @ 100 mls/hr IVPB DAILY [facility] PRN Reason: Protocol Last Admin: 02/21/17 10:34 Dose: 100 mls/hr Doxycycline Hyclate 100 mg/ (Sodium Chloride) 100 mls @ 100 mls/hr IVPB Q12H [facility] Last Admin: 02/21/17 10:37 Dose: 100 mls/hr Insulin Human Lispro (Humalog Low) 0 units SC ACHS [id number] PRN Reason: Protocol Last Admin: 02/21/17 12:32 Dose: 4 units Isosorbide Mononitrate (Imdur) 60 mg PO DAILY [facility] Last Admin: 02/21/17 10:36 Dose: 60 mg Levalbuterol HCl (Xopenex) 0.63 mg IH [id number] [facility] Last Admin: 02/21/17 07:49 Dose: 0.63 mg Levalbuterol HCl (Xopenex) 0.63 mg IH Q2 PRN PRN Reason: Shortness of Breath Metolazone (Zaroxolyn) 2.5 mg PO DAILY [facility] Last Admin: 02/21/17 10:37 Dose: 2.5 mg Metoprolol Tartrate (Lopressor) 100 mg PO BID [facility] Last Admin: 02/21/17 10:36 Dose: 100 mg Multivitamins (Thera Tab) 1 tab PO DAILY [facility] Last Admin: 02/21/17 10:36 Dose: 1 tab Non-Formulary Medication (Magnesium Glycinate [Mag Glycinate]) 500 mg PO DAILY [facility] Last Admin: 02/20/17 10:28 Dose: 500 mg Pantoprazole Sodium (Protonix Ec Tab) 40 mg PO DAILY [facility] Last Admin: 02/21/17 10:36 Dose: 40 mg Potassium Chloride (Klor-Con 10) 10 meq PO BRK [facility] Last Admin: 02/21/17 08:02 Dose: 10 meq Primidone (Mysoline) 50 mg PO HS [facility] Last Admin: 02/20/17 22:03 Dose: Not Given - Labs Labs: 02/21/17 07:50 02/21/17 07:50 PT 11.3 Seconds (9.9-11.8) 02/19/17 15:15 INR 1.05 (0.93-1.08) 02/19/17 15:15 APTT 34.5 Seconds (23.7-30.8) H 02/19/17 15:15 - Constitutional Appears: Well, Non-toxic, No Acute Distress - Head Exam Head Exam: ATRAUMATIC, NORMAL INSPECTION, NORMOCEPHALIC - Eye Exam Eye Exam: EOMI Pupil Exam: PERRL - ENT Exam ENT Exam: Mucous Membranes Moist - Neck Exam Neck Exam: Normal Inspection - Respiratory Exam Respiratory Exam: Rhonchi. absent: Accessory Muscle Use, Rales, Wheezes Additional comments: bilateral ronchi at the bases, improved since admission - Cardiovascular Exam Cardiovascular Exam: +S1, +S2. absent: Bradycardia, Tachycardia, Clicks, Diastolic murmur, Gallop, Rubs, Murmur - GI/Abdominal Exam GI & Abdominal Exam: Soft, Normal Bowel Sounds. absent: Firm, Guarding, Rigid, Tenderness, Rebound - Extremities Exam Extremities Exam: Normal Inspection. absent: Pedal Edema - Neurological Exam Neurological Exam: Alert, Awake, Oriented x3 - Psychiatric Exam Psychiatric exam: Normal Affect, Normal Mood - Skin Skin Exam: Dry, Intact, Normal Color, Warm Assessment and Plan - Assessment and Plan (Free Text) Plan: 71yo female with history of CAD s/p CABG, CHF s/p pacemaker placement, DM type 2 , CKD, AAA s/p repair that presented c/o cough and low-grade fevers at home admitted for community acquired pneumonia 1. Community acquired pneumonia -Leukocytosis of 12.8 with left shift on admission, afebrile -CXR reviewed; consistent with bibasilar community acquired pneumonia -Continue with rocephin and doxycycline -Blood and urine cultures reveal no growth -Pulmonology consulted - Dr. Corona 2. CHF, compensated -NT-proBNP 39885 -Continue home medications lasix, metolazone -Monitor I's and O's -Daily weight -Cardiology consulted - Dr. Vidales 3. DM type 2 -Humalog low dose ISS -Fingersticks ACHS -Consistent carb/heart healthy diet 4. CKD -Will continue to monitor renal function -monitor and replete electrolytes as needed 5. CAD -Continue metoprolol, isosorbide, ASA 81 6. GI/DVT prophylaxis -Protonix/Heparin Case discussed with attending, Dr. Flannery <Yariel Flannery - Last Filed: 03/30/17 08:07> Objective - Vital Signs/Intake and Output Vital Signs (last 24 hours): Temp Pulse Resp BP Pulse Ox 97.6 F 75 19 140/75 98 02/22/17 06:00 02/22/17 10:00 02/22/17 06:00 02/22/17 09:21 02/22/17 06:00 - Labs Labs: 02/22/17 06:30 02/22/17 06:30 PT 11.3 Seconds (9.9-11.8) 02/19/17 15:15 INR 1.05 (0.93-1.08) 02/19/17 15:15 APTT 34.5 Seconds (23.7-30.8) H 02/19/17 15:15 Attending/Attestation - Attestation I have personally seen and examined this patient.: Yes I have fully participated in the care of the patient.: Yes I have reviewed all pertinent clinical information, including history, physical exam and plan: Yes Notes (Text): 03/30/17 08:07 Medical record note made by the resident after discussion with my direction and input after the patient was personally seen and examined by me. I have reviewed the chart and agree that the record reflects my personal performance of history, physical, data review and course for the patient that I have planned.
[2017-02-21] MEDS: MAGNESIUM GLYCINATE PO SCH (16:42)
[2017-02-21 19:10] VITALS: TEMP 97.6
[2017-02-22] MEDS: Levalbuterol 0.63 MG/3 ML Inhal Soln UD IH SCH ×2 (01:56→08:39)
--- NOTE | 2017-02-22 07:48 | PN ---
DATE: 02/22/2017 SUBJECTIVE: The patient appears very comfortable at rest. She is not short of breath. PHYSICAL EXAMINATION: VITAL SIGNS: Temperature is 97.6, pulse is 70, respirations 18, blood pressure 150/86. Oxygen saturation on room air is 100%. HEENT: Normocephalic, atraumatic. No JVD. CARDIOVASCULAR: Systolic ejection murmur at the lower left sternal border. No S3 gallop. LUNGS: Very minimal crackles at the bases. Otherwise clear. EXTREMITIES: Less edema. No cyanosis, no clubbing. Calves are nontender to palpation. GASTROINTESTINAL: Abdomen is soft, nontender, nondistended. Bowel sounds are positive. SKIN: No acute rash. NEUROLOGIC: Limited at the present time. PERTINENT LABORATORY DATA: Repeat chest x-ray was done and reviewed. Compared to the film of 02/19/2017, the most current film is improved and shows a decrease in the right lower lobe infiltrate. IMPRESSION: 1. Right lower lobe pneumonia -- resolving. 2. Recurrent congestive heart failure. 3. End-stage cardiomyopathy. 4. Coronary artery disease. 5. Chronic kidney disease. PLAN: The patient appears very comfortable this morning. She is not short of breath at rest. She states she is feeling much better overall. On physical exam, her bronchospasm continues to resolve. In addition, the oxygen saturation on room air is now 100%. I will continue with the current nebulizer treatments and inhaled steroids for now. I did review the latest x-ray as above. The x-ray is improved -- with a decrease in the infiltrate noted at the right lower lobe. The patient remains on antibiotic therapy. All cultures remain negative so far. There are no temperatures noted. The leukocytosis has resolved. We can probably change to oral antibiotic therapy at this point in time. Clinical status of the patient is significantly improved -- compared to the initial presentation. I will discuss the above with Dr. Flannery. Andrei Corona MD cc: [phone] TT: 02/22/2017 07:47:32 Confirmation # [id number] Dictation # [id number] en MTDD
[2017-02-22] MEDS: Insulin Lispro (humaLOG) LOW Coverage SC SCH (07:49)
[2017-02-22 07:55] LABS: ADD MANUAL DIFF? NO
[2017-02-22 08:02] LABS: BASO # 0.01 K/mm3 (0.0-2.0); BASO % 0.1 % (0.0-3.0); EOS # 0.3 (0.0-0.7); EOS % 3.3 % (1.5-5.0); GRAN % 78.3 % (50.0-68.0); HEMATOCRIT 36.1 % (36.0-48.0); LYMPH # 1.1 (1.2-3.4); LYMPH % 12.5 % (22.0-35.0); MEAN CELL VOLUME 93.3 fL (80.0-105.0); MEAN CORPUSCULAR HEMOGLOBIN 31.5 pg (25.0-35.0); MEAN CORPUSCULAR HGB CONC 33.8 g/dl (31.0-37.0); MEAN PLATELET VOLUME 9.7 fl (7.0-11.0); MONO # 0.5 (0.1-0.6); MONO % 5.8 % (1.0-6.0); PLATELET COUNT 227 10^3/uL (120.0-450.0); RED CELL DISTRIBUTION WIDTH 12.6 % (11.5-14.5); WHITE BLOOD COUNT 8.6 10^3/ul (4.5-11.0)
[2017-02-22 08:08] VITALS: RESP 19; O2SAT 98
[2017-02-22 08:13] LABS: BILIRUBIN,TOTAL 0.5 mg/dL (0.2-1.3); CALCIUM 9.2 mg/dL (8.4-10.5); TOTAL PROTEIN 7.5 g/dL (5.8-8.3)
[2017-02-22] MEDS: Budesonide 0.5 mg/2 ml Inhal Susp UD IH SCH (08:39)
[2017-02-22] MEDS: Potassium Chloride 10 mEq ER Tab PO SCH (09:20)
[2017-02-22] MEDS: cefTRIAXone 1 gm 100 ML IVPB SCH (09:22)
[2017-02-22] MEDS: Pantoprazole 40 mg EC Tab PO SCH (09:22)
[2017-02-22] MEDS: Multivitamin Therapeutic Tab PO SCH (09:23)
[2017-02-22] MEDS: metOLazone 2.5 MG TAB PO SCH (09:25)
[2017-02-22 09:32] VITALS: BP 140/75
[2017-02-22 10:56] VITALS: PULSE 75
--- NOTE | 2017-02-22 10:59 | CP.PCM.DIS ---
<Anthony Colbert - Last Filed: 02/25/17 11:40> Provider - Provider Date of Admission: 02/19/17 17:09 Attending physician: Yariel Flannery MD Primary care physician: Yariel Flannery MD Consults: Pulmonary - Dr. Corona Cardiology - Dr. Vidales Time Spent in preparation of Discharge (in minutes): 30 Hospital Course - Lab Results Lab Results: Micro Results 02/19/17 23:45 Urine,Clean Catch Urine Culture - Final No Growth (<1,000 CFU/ML) Most Recent Lab Values WBC 8.6 10^3/ul (4.5-11.0) 02/22/17 06:30 RBC 3.87 10^6/uL (3.5-6.1) 02/22/17 06:30 Hgb 12.2 gm/dL (12.0-16.0) 02/22/17 06:30 Hct 36.1 % (36.0-48.0) 02/22/17 06:30 MCV 93.3 fL (80.0-105.0) 02/22/17 06:30 MCH 31.5 pg (25.0-35.0) 02/22/17 06:30 MCHC 33.8 g/dl (31.0-37.0) 02/22/17 06:30 RDW 12.6 % (11.5-14.5) 02/22/17 06:30 Plt Count 227 10^3/uL (120.0-450.0) 02/22/17 06:30 MPV 9.7 fl (7.0-11.0) 02/22/17 06:30 Gran % 78.3 % (50.0-68.0) H 02/22/17 06:30 Lymph % (Auto) 12.5 % (22.0-35.0) L 02/22/17 06:30 Leon % (Auto) 5.8 % (1.0-6.0) 02/22/17 06:30 Eos % (Auto) 3.3 % (1.5-5.0) 02/22/17 06:30 Baso % (Auto) 0.1 % (0.0-3.0) 02/22/17 06:30 Gran # 6.70 (1.4-6.5) H 02/22/17 06:30 Lymph # 1.1 (1.2-3.4) L 02/22/17 06:30 Leon # 0.5 (0.1-0.6) 02/22/17 06:30 Eos # 0.3 (0.0-0.7) 02/22/17 06:30 Baso # 0.01 K/mm3 (0.0-2.0) 02/22/17 06:30 PT 11.3 Seconds (9.9-11.8) 02/19/17 15:15 INR 1.05 (0.93-1.08) 02/19/17 15:15 APTT 34.5 Seconds (23.7-30.8) H 02/19/17 15:15 Sodium 133 mmol/L (132-148) 02/22/17 06:30 Potassium 4.0 mmol/L (3.6-5.0) 02/22/17 06:30 Chloride 98 mmol/L (98-107) 02/22/17 06:30 Carbon Dioxide 22 mmol/L (21-33) 02/22/17 06:30 Anion Gap 17 (10-20) 02/22/17 06:30 BUN 56 mg/dL (7-21) H 02/22/17 06:30 Creatinine 2.0 mg/dL (0.5-1.4) H 02/22/17 06:30 Est GFR ( Amer) 02/22/17 06:30 Est GFR (Non-Af Amer) 02/22/17 06:30 POC Glucose (mg/dL) 242 mg/dL (65-110) H 02/22/17 07:27 Random Glucose 222 mg/dL (70-110) H 02/22/17 06:30 Lactic Acid 1.1 mmol/L (0.7-2.1) 02/20/17 06:25 Calcium 9.2 mg/dL (8.4-10.5) 02/22/17 06:30 Phosphorus 4.4 mg/dL (2.5-4.5) 02/19/17 15:15 Magnesium 2.2 mg/dL (1.7-2.2) 02/19/17 15:15 Total Bilirubin 0.5 mg/dL (0.2-1.3) 02/22/17 06:30 AST 30 U/L (15-39) 02/22/17 06:30 ALT 24 U/L (7-56) 02/22/17 06:30 Alkaline Phosphatase 119 U/L (38-133) 02/22/17 06:30 Troponin I 0.03 ng/mL D 02/19/17 15:15 NT-Pro-B Natriuret Pep 44966 pg/mL (0-450) H 02/20/17 06:25 Total Protein 7.5 g/dL (5.8-8.3) 02/22/17 06:30 Albumin 3.8 g/dL (3.0-4.8) 02/22/17 06:30 Globulin 3.7 gm/dL 02/22/17 06:30 Albumin/Globulin Ratio 1.0 (1.1-1.8) L 02/22/17 06:30 Urine Color Yellow (YELLOW) 02/19/17 23:45 Urine Appearance Clear (CLEAR) 02/19/17 23:45 Urine pH 6.0 (4.7-8.0) 02/19/17 23:45 Ur Specific [place] 1.020 (1.005-1.035) 02/19/17 23:45 Urine Protein 100 mg/dL (<30 mg/dL) H 02/19/17 23:45 Urine Glucose (UA) Negative mg/dL (NEGATIVE) 02/19/17 23:45 Urine Ketones Negative mg/dL (NEGATIVE) 02/19/17 23:45 Urine Blood Trace-intact (NEGATIVE) H 02/19/17 23:45 Urine Nitrate Negative (NEGATIVE) 02/19/17 23:45 Urine Bilirubin Negative (NEGATIVE) 02/19/17 23:45 Urine Urobilinogen 0.2 E.U./dL (<1 E.U./dL) 02/19/17 23:45 Ur Leukocyte Esterase Negative Collins/uL (NEGATIVE) 02/19/17 23:45 Urine RBC 2 - 5 /hpf (0-2) 02/19/17 23:45 Urine WBC 0 - 2 /hpf (0-6) 02/19/17 23:45 Ur Epithelial Cells 0 - 2 /hpf (0-5) 02/19/17 23:45 - Hospital Course Hospital Course: Patient is a 71yo female with PHMx of CAD s/p CABG, CHF s/p pacemaker , DM type 2, CKD, AAA s/p repair who presented to the ED c/o cough and low- grade fevers for 5 days. In the ED, patients temperature was 98.3F. Labs were notable for WBC of 12.8 w/ left shift, H/H of 11.9/35.0, BUN 67, Cr 2[place]6 [place] [address]. On physical exam, rhonchi were noted on bilateral lower lungs. CXR revealed new bibasilar opacities. Pt immediately began antibiotic treatment for CAP with rocephin and doxycyline. Due to patients bronchospasm, pulmonlogy was consulted and nebulizer treatment was given. Given patients extensive cardiac history and labs, cardiology was also consulted. After admission, repeat CXR (PA/LAT) showed similar bibasilar linear and patchy opacities, however patient reported feeling subjectively better. Leukocytosis resolved with antibiotic treatment and the patient remained afebrile. Blood and urine cultures revealed no growth. Patient was ultimately discharged on antibiotics and was advised to f/u with PMD. Discharge Exam - Head Exam Head Exam: ATRAUMATIC, NORMAL INSPECTION, NORMOCEPHALIC - Eye Exam Eye Exam: EOMI, PERRL - Neck Exam Neck exam: Normal Inspection - Respiratory Exam Respiratory Exam: Rhonchi (mild ronchi in bilateral bases). absent: Accessory Muscle Use, Rales, Wheezes, Respiratory Distress, Stridor - Cardiovascular Exam Cardiovascular Exam: RRR, +S1, +S2. absent: Gallop, JVD, Rubs - GI/Abdominal Exam GI & Abdominal Exam: Soft. absent: Distended, Firm, Guarding, Rebound, Tenderness - Extremities Exam Extremities exam: normal inspection - Neurological Exam Neurological exam: Alert, CN II-XII Intact, Normal Gait, Oriented x3 - Psychiatric Exam Psychiatric exam: Normal Affect, Normal Mood - Skin Skin Exam: Dry, Intact, Normal Color, Warm Discharge Plan - Follow Up Plan Condition: GOOD Disposition: HOME/ ROUTINE Instructions: Pneumococcal Vaccine for Adults (DC), Pneumonia (GEN) Additional Instructions: 1. Follow up with your primary doctor, Dr. Flannery within 1-2 weeks 2. Follow up with your coach cleaner, Dr. Corona within 1-2 weeks 3. Fill the antibiotics prescribed to you and take as directed 4. Return to the emergency room should you have worsening symptoms or feel unwell Referrals: Yariel Flannery MD [Primary Care Provider] - Andrei Corona MD [Staff Provider] - <Yariel Flannery - Last Filed: 03/30/17 08:07> Provider - Provider Date of Admission: 02/19/17 17:09 Attending physician: Yariel Flannery MD Primary care physician: Yariel Flannery MD Hospital Course - Lab Results Lab Results: Micro Results 02/19/17 23:45 Urine,Clean Catch Urine Culture - Final No Growth (<1,000 CFU/ML) Most Recent Lab Values WBC 8.6 10^3/ul (4.5-11.0) 02/22/17 06:30 RBC 3.87 10^6/uL (3.5-6.1) 02/22/17 06:30 Hgb 12.2 gm/dL (12.0-16.0) 02/22/17 06:30 Hct 36.1 % (36.0-48.0) 02/22/17 06:30 MCV 93.3 fL (80.0-105.0) 02/22/17 06:30 MCH 31.5 pg (25.0-35.0) 02/22/17 06:30 MCHC 33.8 g/dl (31.0-37.0) 02/22/17 06:30 RDW 12.6 % (11.5-14.5) 02/22/17 06:30 Plt Count 227 10^3/uL (120.0-450.0) 02/22/17 06:30 MPV 9.7 fl (7.0-11.0) 02/22/17 06:30 Gran % 78.3 % (50.0-68.0) H 02/22/17 06:30 Lymph % (Auto) 12.5 % (22.0-35.0) L 02/22/17 06:30 Leon % (Auto) 5.8 % (1.0-6.0) 02/22/17 06:30 Eos % (Auto) 3.3 % (1.5-5.0) 02/22/17 06:30 Baso % (Auto) 0.1 % (0.0-3.0) 02/22/17 06:30 Gran # 6.70 (1.4-6.5) H 02/22/17 06:30 Lymph # 1.1 (1.2-3.4) L 02/22/17 06:30 Leon # 0.5 (0.1-0.6) 02/22/17 06:30 Eos # 0.3 (0.0-0.7) 02/22/17 06:30 Baso # 0.01 K/mm3 (0.0-2.0) 02/22/17 06:30 PT 11.3 Seconds (9.9-11.8) 02/19/17 15:15 INR 1.05 (0.93-1.08) 02/19/17 15:15 APTT 34.5 Seconds (23.7-30.8) H 02/19/17 15:15 Sodium 133 mmol/L (132-148) 02/22/17 06:30 Potassium 4.0 mmol/L (3.6-5.0) 02/22/17 06:30 Chloride 98 mmol/L (98-107) 02/22/17 06:30 Carbon Dioxide 22 mmol/L (21-33) 02/22/17 06:30 Anion Gap 17 (10-20) 02/22/17 06:30 BUN 56 mg/dL (7-21) H 02/22/17 06:30 Creatinine 2.0 mg/dL (0.5-1.4) H 02/22/17 06:30 Est GFR ( Amer) 02/22/17 06:30 Est GFR (Non-Af Amer) 02/22/17 06:30 POC Glucose (mg/dL) 242 mg/dL (65-110) H 02/22/17 07:27 Random Glucose 222 mg/dL (70-110) H 02/22/17 06:30 Lactic Acid 1.1 mmol/L (0.7-2.1) 02/20/17 06:25 Calcium 9.2 mg/dL (8.4-10.5) 02/22/17 06:30 Phosphorus 4.4 mg/dL (2.5-4.5) 02/19/17 15:15 Magnesium 2.2 mg/dL (1.7-2.2) 02/19/17 15:15 Total Bilirubin 0.5 mg/dL (0.2-1.3) 02/22/17 06:30 AST 30 U/L (15-39) 02/22/17 06:30 ALT 24 U/L (7-56) 02/22/17 06:30 Alkaline Phosphatase 119 U/L (38-133) 02/22/17 06:30 Troponin I 0.03 ng/mL D 02/19/17 15:15 NT-Pro-B Natriuret Pep 24751 pg/mL (0-450) H 02/20/17 06:25 Total Protein 7.5 g/dL (5.8-8.3) 02/22/17 06:30 Albumin 3.8 g/dL (3.0-4.8) 02/22/17 06:30 Globulin 3.7 gm/dL 02/22/17 06:30 Albumin/Globulin Ratio 1.0 (1.1-1.8) L 02/22/17 06:30 Urine Color Yellow (YELLOW) 02/19/17 23:45 Urine Appearance Clear (CLEAR) 02/19/17 23:45 Urine pH 6.0 (4.7-8.0) 02/19/17 23:45 Ur Specific [place] 1.020 (1.005-1.035) 02/19/17 23:45 Urine Protein 100 mg/dL (<30 mg/dL) H 02/19/17 23:45 Urine Glucose (UA) Negative mg/dL (NEGATIVE) 02/19/17 23:45 Urine Ketones Negative mg/dL (NEGATIVE) 02/19/17 23:45 Urine Blood Trace-intact (NEGATIVE) H 02/19/17 23:45 Urine Nitrate Negative (NEGATIVE) 02/19/17 23:45 Urine Bilirubin Negative (NEGATIVE) 02/19/17 23:45 Urine Urobilinogen 0.2 E.U./dL (<1 E.U./dL) 02/19/17 23:45 Ur Leukocyte Esterase Negative Collins/uL (NEGATIVE) 02/19/17 23:45 Urine RBC 2 - 5 /hpf (0-2) 02/19/17 23:45 Urine WBC 0 - 2 /hpf (0-6) 02/19/17 23:45 Ur Epithelial Cells 0 - 2 /hpf (0-5) 02/19/17 23:45 Pneumocystis Source Serum 02/19/17 15:15 S. pneumoniae Antigen Not detected 02/19/17 15:15 Attending/Attestation - Attestation I have personally seen and examined this patient.: Yes I have fully participated in the care of the patient.: Yes I have reviewed all pertinent clinical information, including history, physical exam and plan: Yes Notes (Text): 03/30/17 08:07 Medical record note made by the resident after discussion with my direction and input after the patient was personally seen and examined by me. I have reviewed the chart and agree that the record reflects my personal performance of history, physical, data review and course for the patient that I have planned.
--- NOTE | 2017-02-22 11:40 | PN ---
DATE: 02/22/2017 The patient is without shortness of breath. She is feeling well. PHYSICAL EXAMINATION: VITAL SIGNS: Blood pressure is 140/75, the heart rate is in the 70s. NECK: Negative JVD. LUNGS: Without rales. HEART: Reveals S1, S2. EXTREMITIES: Without edema. Hemoglobin is 12.2, white count is 8.6. BUN and creatinine are 56 and 2.0. IMPRESSION: 1. End-stage dilated cardiomyopathy. 2. Diabetes mellitus. 3. Renal insufficiency. 4. Pneumonia. Given these findings, the patient's cardiac status is doing well. The patient can be discharged from a cardiac perspective. Vinnie Vidales MD cc: [id number] TT: 02/22/2017 11:40:06 Confirmation # [id number] Dictation # [id number]
== END 2017-02-22 13:44 | disposition home or self-care (01) | DRG 193 ==
LOC: ED 13:09 → ERH 17:09 → 2RSO 02-20 00:02 → 3RSO 02-21 10:17
PROVIDERS: ADMIT Internal Medicine; ATTEND Internal Medicine
PROC: 3E0F7GC Introduction of Other Therapeutic Substance into Respiratory Tract, Via Natural or Artificial Opening (ICD-10-PCS; principal; 2017-02-20)
DX: J18.9 Pneumonia, unspecified organism (principal); I13.0 Hypertensive heart and chronic kidney disease with heart failure and stage 1 through stage 4 chronic kidney disease, or unspecified chronic kidney disease; I50.21 Acute systolic (congestive) heart failure; I42.0 Dilated cardiomyopathy; E11.22 Type 2 diabetes mellitus with diabetic chronic kidney disease; E11.51 Type 2 diabetes mellitus with diabetic peripheral angiopathy without gangrene; N18.9 Chronic kidney disease, unspecified; I25.10 Atherosclerotic heart disease of native coronary artery without angina pectoris; D64.9 Anemia, unspecified; Z95.810 Presence of automatic (implantable) cardiac defibrillator; Z95.1 Presence of aortocoronary bypass graft; Z87.891 Personal history of nicotine dependence; Z90.49 Acquired absence of other specified parts of digestive tract; Z82.49 Family history of ischemic heart disease and other diseases of the circulatory system; Z80.8 Family history of malignant neoplasm of other organs or systems; Z80.3 Family history of malignant neoplasm of breast; Z80.6 Family history of leukemia

== ENCOUNTER 2018-02-21 18:09 | Inpatient (IN) | payer MEDICARE ==
[2018-02-21 18:09] VITALS: PULSE 92
[2018-02-21 19:20] VITALS: BMI 28.0
--- NOTE | 2018-02-21 19:30 | ED PDOC ---
Arrival/HPI - General Chief Complaint: Medical Clearance Time Seen by Provider: 02/21/18 19:21 Historian: Patient - History of Present Illness Narrative History of Present Illness (Text): 02/21/18 19:27 A 72 year old female, whose past medical history includes CAD, stents, diabetes , and hypertension, presents to the emergency department for medical clearance to be admitted for foot surgery. Patient sent by her doctor to be admitted for scheduled further foot surgery. Patient reports having prolonged infection in the 2nd digit of left foot. Patient is currently on antibiotics. denies any fever, chills, or any other complaints at this time. PMD: Dr. Flannery Past Medical History - Provider Review Nursing Documentation Reviewed: Yes - Infectious Disease Hx of Infectious Diseases: None - Tetanus Immunization Tetanus Immunization: Unknown - Cardiac Hx Pacemaker: Yes - Pulmonary Hx Respiratory Disorders: No - Neurological Hx Neurological Disorder: No - HEENT Hx Cataracts: Yes (bilateral laser sx) - Renal Hx Renal Disorder: Yes - Endocrine/Metabolic Hx Diabetes Mellitus Type 2: Yes - Hematological/Oncological Hx Blood Disorders: No (MRSA H/O) - Integumentary Other/Comment: STage 3 sacral ulcers. BLE redness w/ scattered scabs. Under breasts folds redness. Bilateral under belly Folds redness skin excoriated - Musculoskeletal/Rheumatological Hx Arthritis: Yes - Gastrointestinal Hx Gastrointestinal Disorders: Yes (umbilical hernia) Hx Ileostomy: Yes - Genitourinary/Gynecological Hx Genitourinary Disorders: No - Psychiatric Hx Psychophysiologic Disorder: No Hx Substance Use: No - Surgical History Hx Cardiac Catheterization: Yes Hx Coronary Artery Bypass Graft: Yes (QUADRUPLE) - Anesthesia Hx Anesthesia: Yes Hx Anesthesia Reactions: No Hx Malignant Hyperthermia: No - Suicidal Assessment Feels Threatened In Home Enviroment: No Family/Social History - Physician Review Nursing Documentation Reviewed: Yes Family/Social History: No Known Family HX Smoking Status: Former Smoker Hx Alcohol Use: No Hx Substance Use: No Hx Substance Use Treatment: No Allergies/Home Meds Allergies/Adverse Reactions: Allergies shellfish derived Allergy (Verified 02/19/17 13:57) ANAPHYLAXIS Home Medications: Home Meds Medication Instructions Recorded Confirmed Ascorbic Acid [Vitamin C 500 mg 500 mg PO DAILY 02/19/17 02/21/18 Tab] Aspirin [Ecotrin] 81 mg PO DAILY 02/19/17 02/21/18 Cholecalciferol [Vitamin D 1000 IU] 1,000 iu PO DAILY 02/19/17 02/21/18 Cyanocobalamin (Vitamin B-12) 1,000 mcg PO BID 02/19/17 02/21/18 [B-12] Furosemide [Lasix] 80 mg PO BID 02/19/17 02/21/18 Insulin Human NPH [Humulin N] 6 units SC BID 02/19/17 02/21/18 Insulin Human Regular [HumuLIN R] 6 units SC ACHS 02/19/17 02/21/18 Isosorbide Dinitrate 60 mg PO DAILY 02/19/17 02/21/18 Magnesium Glycinate [Mag Glycinate] 500 mg PO DAILY 02/19/17 02/21/18 Metoprolol Tartrate [Lopressor] 100 mg PO BID 02/19/17 02/21/18 Multivitamin [Multivitamins] 1 tab PO DAILY 02/19/17 02/21/18 Pantoprazole Sodium [Protonix] 40 mg PO DAILY 02/19/17 02/21/18 Potassium Chloride [Klor-Con 10 meq PO DAILY 02/19/17 02/21/18 Sprinkle] Primidone [Mysoline] 50 mg PO HS 02/19/17 02/21/18 metOLazone [Zaroxolyn] 2.5 mg PO DAILY 02/19/17 02/21/18 Pravastatin Sodium [Pravachol] 20 mg PO DAILY 05/17/17 02/21/18 Mupirocin 1 gm TP DAILY 02/21/18 02/21/18 Review of Systems - Physician Review All systems were reviewed & negative as marked: Yes - Review of Systems Constitutional: absent: Fevers, Night Sweats Musculoskeletal: Other (prolonged infection to 2nd digit of left foot) Physical Exam Vital Signs Temp Pulse Resp BP Pulse Ox 02/21/18 18:09 97.5 F L 73 18 127/62 97 Temperature: Afebrile Blood Pressure: Normal Pulse: Regular Respiratory Rate: Normal Appearance: Positive for: Well-Appearing, Non-Toxic, Comfortable Pain Distress: None Mental Status: Positive for: Alert and Oriented X 3 - Systems Exam Head: Present: Atraumatic, Normocephalic Pupils: Present: PERRL Extroacular Muscles: Present: EOMI Respiratory/Chest: Present: Clear to Auscultation, Good Air Exchange. No: Respiratory Distress, Accessory Muscle Use Cardiovascular: Present: Regular Rate and Rhythm, Normal S1, S2. No: Murmurs Abdomen: No: Tenderness, Distention, Peritoneal Signs Upper Extremity: Present: Normal Inspection. No: Cyanosis, Edema Lower Extremity: Present: NORMAL PULSES, Normal ROM, Neurovascularly Intact, Other (healed partially amputated left great toe/erythema left 2nd toe). No: CALF TENDERNESS Neurological: Present: GCS=15, CN II-XII Intact, Speech Normal, Motor Func Grossly Intact, Normal Sensory Function Skin: Present: Warm, Dry, Normal Color. No: Rashes Psychiatric: Present: Alert, Oriented x 3, Normal Insight, Normal Concentration Medical Decision Making ED Course and Treatment: 02/21/18 19:30 Impression: 72 year old female here for medical clearance in order to be admitted for scheduled foot surgery due to prolonged infection to 2nd digit of left foot. Plan: -- EKG -- Chest X-ray -- Labs -- Blood Culture -- Reassess and disposition Progress Notes: EKG: Ordered, reviewed, and independently interpreted the EKG. Rate : 72 BPM Rhythm : NSR Interpretation : Non- specific ST-T changes. 02/21/18 21:38: Case was discussed with the medical terminologist and Dr. Winston. He accepts patient to his service. Chest X-ray read and interpreted by me shows no acute processes. - Lab Interpretations Lab Results: 02/21/18 19:55 02/21/18 19:55 Lab Results 02/21/18 19:55: PT 12.6 H, INR 1.10 H, APTT 41.8 H 02/21/18 19:55: WBC 8.8, RBC 3.53, Hgb 10.9 L, Hct 33.6 L, MCV 95.2, MCH 30.9, MCHC 32.4, RDW 12.9, Plt Count 254, MPV 9.1 02/21/18 19:55: Sodium 141, Potassium 4.8, Chloride 104, Carbon Dioxide 20 L, Anion Gap 21 H, BUN 42 H, Creatinine 3.5 H, Est GFR ( Amer) 16, Est GFR ( Non-Af Amer) 13, Random Glucose 151 H, Calcium 8.7, Total Bilirubin 0.2, AST 37 H, ALT 18, Alkaline Phosphatase 106, Total Protein 7.0, Albumin 3.9, Globulin 3.1, Albumin/Globulin Ratio 1.2 02/21/18 19:54: POC Glucose (mg/dL) 150 H - RAD Interpretation Radiology Orders: 02/21/18 19:27 CHEST PORTABLE [RAD] Stat 02/21/18 20:10 FOOT LEFT 3 VIEWS ROUTINE [RAD] Stat - Medication Orders Current Medication Orders: Ceftriaxone Sodium (Rocephin 1 Gram Ivpb) 1 gm in 100 mls @ 200 mls/hr IV ONCE STA PRN Reason: Protocol Stop: 02/21/18 22:05 Last Admin: 02/21/18 21:47 Dose: 200 mls/hr eMAR Start Stop Document 02/21/18 21:47 CNR (Rec: 02/21/18 21:48 CNR [id number]) Intravenous Solution Start Date 02/21/18 Start Time 21:47 End Date 02/21/18 End time 22:17 Total Infusion Time 30 - Scribe Statement The provider has reviewed the documentation as recorded by the Francisca Rothman Provider Scribe Attestation: All medical record entries made by the Scribjose were at my direction and personally dictated by me. I have reviewed the chart and agree that the record accurately reflects my personal performance of the history, physical exam, medical decision making, and the department course for this patient. I have also personally directed, reviewed, and agree with the discharge instructions and disposition. Disposition/Present on Arrival - Present on Arrival Any Indicators Present on Arrival: No History of DVT/PE: No History of Uncontrolled Diabetes: No Urinary Catheter: No History of Decub. Ulcer: No History Surgical Site Infection Following: None - Disposition Have Diagnosis and Disposition been Completed?: Yes Diagnosis: Toe infection, Cellulitis Disposition: HOSPITALIZED Disposition Time: 21:47 Patient Problems: Current Active Problems Problem Status Onset Cellulitis Acute Toe infection Acute Condition: STABLE Discharge Instructions (ExitCare): Cellulitis (ED) Referrals: Yariel Flannery MD [Primary Care Provider] - Follow up with primary Forms: [employer] (Azerbaijani)
[2018-02-21 20:20] LABS: HEMOGLOBIN 10.9 g/dL (12.0-16.0); MEAN CELL VOLUME 95.2 fl (80.0-105.0); MEAN CORPUSCULAR HEMOGLOBIN 30.9 pg (25.0-35.0); MEAN CORPUSCULAR HGB CONC 32.4 g/dl (31.0-37.0); MEAN PLATELET VOLUME 9.1 fl (7.0-11.0); RBC 3.53 10^6/uL (3.5-6.1); RED CELL DISTRIBUTION WIDTH 12.9 % (11.5-14.5); WHITE BLOOD COUNT 8.8 10^3/ul (4.5-11.0)
[2018-02-21 20:22] LABS: ALB/GLOB RATIO 1.2 (1.1-1.8); ALBUMIN 3.9 g/dL (3.0-4.8); CALCIUM 8.7 mg/dL (8.4-10.5)
[2018-02-21 20:23] LABS: PROTHROMBIN TIME 12.6 SECONDS (9.4-12.5)
[2018-02-21 20:24] LABS: INR 1.1 (0.93-1.08); PARTIAL THROMBOPLASTIN TIME 41.8 Seconds (25.1-36.5)
[2018-02-21] MEDS ORDERED: cefTRIAXone 1 gm 1 GM/100 ML BAG IV STA (21:36)
--- NOTE | 2018-02-21 22:32 | CP.PCM.HP ---
<Anastacio Lazaro - Last Filed: 02/22/18 00:32> History of Present Illness - History of Present Illness History of Present Illness: Medicine H&P: Dr. Winston Chief Complaint: Medical Clearance HPI: 71yo female with history of CAD s/p CABG, CHF s/p pacemaker placement, DM type 2 , CKD, AAA s/p repair presents from Dr. Flannery's office for medical clearance before getting foot surgery on her Left second digit. Patient states that her surgery is set up for Sunday morning. She states that she has had this foot infection for the past week and is taking bactrim for it at home; she admits that the infection is secondary to poor glycemic control given her past history of diabetes. 12 point ROS as per HPI above, otherwise negative PSHx: CABG, ileostomy, endovascular repair of AAA, cholecystectomy, pacemaker placement, left toe amputation PMHx: CAD s/p CABG, CHF s/p pacemaker placement, DM type 2, CKD, AAA s/p repair Allergies: Shellfish Medications: Reviewed and as per chart Social hx: Former tobacco use (quit 16 yrs ago), denies alcohol and illicit drugs Family Hx: Mother: Uterine/Breast Ca; Father: CHF, throat Ca; Brother: leukemia, heart transplant PMD: Dr. Flannery Present on Admission - Present on Admission Any Indicators Present on Admission: No Past Patient History - Infectious Disease Hx of Infectious Diseases: None - Tetanus Immunizations Tetanus Immunization: Unknown - Past Social History Smoking Status: Former Smoker - CARDIAC Hx Pacemaker: Yes - PULMONARY Hx Respiratory Disorders: No - NEUROLOGICAL Hx Neurological Disorder: No - HEENT Hx Cataracts: Yes (bilateral laser sx) - RENAL Hx Chronic Kidney Disease: Yes - ENDOCRINE/METABOLIC Hx Diabetes Mellitus Type 2: Yes - HEMATOLOGICAL/ONCOLOGICAL Hx Blood Disorders: No (MRSA H/O) - INTEGUMENTARY Other/Comment: STage 3 sacral ulcers. BLE redness w/ scattered scabs. Under breasts folds redness. Bilateral under belly Folds redness skin excoriated - MUSCULOSKELETAL/RHEUMATOLOGICAL Hx Arthritis: Yes - GASTROINTESTINAL Hx Gastrointestinal Disorders: Yes (umbilical hernia) Hx Ileostomy: Yes - GENITOURINARY/GYNECOLOGICAL Hx Genitourinary Disorders: No - PSYCHIATRIC Hx Psychophysiologic Disorder: No Hx Substance Use: No - SURGICAL HISTORY Hx Cardiac Catheterization: Yes Hx Coronary Artery Bypass Graft: Yes (QUADRUPLE) - ANESTHESIA Hx Anesthesia: Yes Hx Anesthesia Reactions: No Hx Malignant Hyperthermia: No Meds Allergies/Adverse Reactions: Allergies Allergy/AdvReac Type Severity Reaction Status Date / Time shellfish derived Allergy ANAPHYLAXIS Verified 02/19/17 13:57 Physical Exam - Constitutional Appears: Well - Head Exam Head Exam: ATRAUMATIC, NORMAL INSPECTION, NORMOCEPHALIC - Eye Exam Eye Exam: EOMI, Normal appearance, PERRL Pupil Exam: NORMAL ACCOMODATION, PERRL - ENT Exam ENT Exam: Mucous Membranes Moist, Normal Exam - Neck Exam Neck exam: Positive for: Normal Inspection - Respiratory Exam Respiratory Exam: Clear to Auscultation Bilateral, NORMAL BREATHING PATTERN - Cardiovascular Exam Cardiovascular Exam: REGULAR RHYTHM - GI/Abdominal Exam GI & Abdominal Exam: Normal Bowel Sounds, Soft. absent: Tenderness - Extremities Exam Extremities exam: Positive for: normal inspection - Back Exam Back exam: NORMAL INSPECTION - Neurological Exam Neurological exam: Alert, CN II-XII Intact, Normal Gait, Oriented x3, Reflexes Normal - Psychiatric Exam Psychiatric exam: Normal Affect, Normal Mood - Skin Skin Exam: Dry, Intact, Normal Color, Warm Results - Vital Signs Recent Vital Signs: Last Vital Signs Temp 97.5 F L 02/21/18 18:09 Pulse 73 02/21/18 18:09 Resp 18 02/21/18 18:09 BP 127/62 02/21/18 18:09 Pulse Ox 97 02/21/18 18:09 - Labs Result Diagrams: 02/21/18 19:55 02/21/18 19:55 Assessment & Plan - Assessment and Plan (Free Text) Assessment: 71yo female with history of CAD s/p CABG, CHF s/p pacemaker placement, DM type 2 , CKD, AAA s/p repair that presents for medical clearance for her left second digit foot infection. Patient has no complaints. L Foot Infection - Rocephin - Podiatry consult: Dr. Cortés Medical Clearance - EKG, Blood culture, Foot XR, Chest XR in ER CHF, likely compensated - Continue home medications lasix, metolazone - Monitor I's and O's, Daily weight DM type 2 - Humalog Med dose ISS - Fingersticks ACHS - Consistent carb/heart healthy diet CKD - Will continue to monitor renal function CAD - Continue metoprolol, isosorbide, ASA 81 GI/DVT prophylaxis -Protonix/Lovenox <Jasmyn Winston - Last Filed: 02/22/18 05:08> Results - Vital Signs Recent Vital Signs: Last Vital Signs Temp 97.9 F 02/22/18 00:24 Pulse 82 02/22/18 00:24 Resp 18 02/22/18 00:24 BP 134/73 02/22/18 00:24 Pulse Ox 97 02/21/18 22:37 - Labs Result Diagrams: 02/21/18 19:55 02/21/18 19:55 Attending/Attestation - Attestation I have personally seen and examined this patient.: Yes I have fully participated in the care of the patient.: Yes I have reviewed all pertinent clinical information: Yes Notes (Text): 02/22/18 05:04 Patient was seen when she was in the ER in bed # 5. Agree with history, physical examination, assessment and plan. ROS:chronic back pain, fracture ribs last year, b/l cataract surgery, reading glasses, left ear hearing diminished, sinusitis problem, uses inhaler sometimes, umbilical hernia presence, hld, blood transfusion history.
[2018-02-22] MEDS ORDERED: Oxycodone/Acetaminophen 5/325 mg Tab PO ONE (00:15)
[2018-02-22] MEDS: Pantoprazole 40 mg EC Tab PO SCH (06:58)
[2018-02-22 07:48] LABS: BASO # 0.02 K/mm3 (0.0-2.0); BASO % 0.2 % (0.0-3.0); EOS # 0.5 (0.0-0.7); EOS % 4.6 % (1.5-5.0); GRAN # 8.86 (1.4-6.5); GRAN % 82.9 % (50.0-68.0); HEMOGLOBIN 11.9 g/dL (12.0-16.0); LYMPH # 0.7 (1.2-3.4); LYMPH % 6.6 % (22.0-35.0); MEAN CELL VOLUME 95.1 fl (80.0-105.0); MEAN CORPUSCULAR HEMOGLOBIN 30.4 pg (25.0-35.0); MEAN PLATELET VOLUME 9.1 fl (7.0-11.0); MONO # 0.6 (0.1-0.6); MONO % 5.7 % (1.0-6.0); RBC 3.91 10^6/uL (3.5-6.1); RED CELL DISTRIBUTION WIDTH 13.1 % (11.5-14.5); WHITE BLOOD COUNT 10.7 10^3/ul (4.5-11.0)
[2018-02-22 08:18] LABS: ALB/GLOB RATIO 1.2 (1.1-1.8)
--- NOTE | 2018-02-22 08:25 | RAD ---
HISTORY: medical clearance COMPARISON: 03/20/2017 FINDINGS: LUNGS: No active pulmonary disease. PLEURA: No significant pleural effusion identified, no pneumothorax apparent. CARDIOVASCULAR: Cardiomegaly. Position/ configuration of pacemaker Satisfactory. Venous access catheter in stable, satisfactory position. OSSEOUS STRUCTURES: No significant abnormalities. VISUALIZED UPPER ABDOMEN: Normal. OTHER FINDINGS: None. IMPRESSION: No active disease. No significant interval change compared to the prior examination(s).
[2018-02-22] MEDS ORDERED: Sodium Chloride 0.9% 1,000 ML IV SCH ×2 (08:30→10:12)
--- NOTE | 2018-02-22 08:39 | RAD ---
PROCEDURE: Left Foot Radiographs. HISTORY: infection COMPARISON: 01/23/2014 FINDINGS: BONES: Status post resection of the 1st digit. JOINTS: Multiple hammertoe deformities SOFT TISSUES: Soft tissue swelling at the site of the surgical resection. No radiographic evidence of acute osteomyelitis. There appears to be a small ulcer medially. The finding is marked on the study for review. OTHER FINDINGS: None. IMPRESSION: Soft tissue swelling without acute articular or osseous abnormality.
[2018-02-22] MEDS: Insulin Reg-MEDIUM-Coverage SC SCH ×4 (08:45→23:06)
--- NOTE | 2018-02-22 09:12 | CARD ---
APPROVED REPORT EKG Measurement Heart [id number] <Conclusion> Normal sinus rhythm Possible Left atrial enlargement ST & T wave abnormality, consider lateral ischemia Prolonged QT Abnormal ECG
[2018-02-22] MEDS: metOLazone 2.5 MG TAB PO SCH (09:20)
[2018-02-22] MEDS: Potassium Chloride 10 mEq ER Tab PO SCH (09:20)
[2018-02-22] MEDS: Multivitamin Therapeutic Tab PO SCH (09:20)
[2018-02-22] MEDS: MAGNESIUM GLYCINATE PO SCH (09:29)
[2018-02-22] MEDS ORDERED: cefTRIAXone 1 gm 1 GM/100 ML BAG IVPB SCH (10:00)
[2018-02-22] MEDS ORDERED: Enoxaparin 30 mg Syringe SC SCH (10:00)
[2018-02-22] MEDS: Cholecalciferol 1,000 INTLU TAB PO SCH (10:51)
--- NOTE | 2018-02-22 11:20 | CP.PCM.PN ---
<Bri Morgan - Last Filed: 02/22/18 11:50> Subjective - Date & Time of Evaluation Date of Evaluation: 02/22/18 Time of Evaluation: 11:12 - Subjective Subjective: Internal Medicine Progress Note: Patient seen and examined at bedside. Per nursing no acute events overnight. Patient for OR on Sunday for left toe wound debridement. Medical clearance is pending. Patient reports having right hip pain, requesting Tylenol. Offers no other complaints. Denies headaches, dizziness, cp, palpitations, sob, abdominal pain, urinary symptoms, changes in bowel habits. Objective - Vital Signs/Intake and Output Vital Signs (last 24 hours): Temp Pulse Resp BP Pulse Ox 97.8 F 93 H 20 120/64 100 02/22/18 08:11 02/22/18 08:11 02/22/18 08:11 02/22/18 09:19 02/22/18 08:11 - Medications Medications: Current Medications Acetaminophen (Tylenol 325mg Tab) 650 mg PO Q6H PRN PRN Reason: Pain, moderate (4-7) Last Admin: 02/22/18 10:49 Dose: 650 mg Ascorbic Acid (Vitamin C 500 Mg Tab) 500 mg PO DAILY [facility] Last Admin: 02/22/18 09:20 Dose: 500 mg Aspirin (Ecotrin) 81 mg PO DAILY [facility] Last Admin: 02/22/18 09:20 Dose: 81 mg Atorvastatin Calcium (Lipitor) 10 mg PO DIN [facility] Cholecalciferol (Vitamin D) 1,000 intlu PO DAILY [facility] Last Admin: 02/22/18 10:51 Dose: 1,000 intlu Cyanocobalamin (Vitamin B12 1000 Mcg Tab) 1,000 mcg PO BID [facility] Last Admin: 02/22/18 09:19 Dose: 1,000 mcg Enoxaparin Sodium (Lovenox) 30 mg SC DAILY [facility] PRN Reason: Protocol Last Admin: 02/22/18 09:21 Dose: 30 mg Furosemide (Lasix) 80 mg PO BID [facility] Last Admin: 02/22/18 09:19 Dose: 80 mg Ceftriaxone Sodium (Rocephin 1 Gram Ivpb) 1 gm in 100 mls @ 100 mls/hr IVPB DAILY [facility] PRN Reason: Protocol Last Admin: 02/22/18 09:21 Dose: 100 mls/hr Sodium Chloride (Sodium Chloride 0.9%) 1,000 mls @ 50 mls/hr IV .Q20H [facility] Insulin Human Regular (Humulin R Med) 0 units SC ACHS [facility] PRN Reason: Protocol Last Admin: 02/22/18 08:45 Dose: Not Given Isosorbide Dinitrate (Isordil) 60 mg PO DAILY [facility] Last Admin: 02/22/18 10:46 Dose: 60 mg Metolazone (Zaroxolyn) 2.5 mg PO DAILY [facility] Last Admin: 02/22/18 09:20 Dose: 2.5 mg Metoprolol Tartrate (Lopressor) 100 mg PO BID [facility] Last Admin: 02/22/18 09:18 Dose: 100 mg Multivitamins (Thera Tab) 1 tab PO DAILY [facility] Last Admin: 02/22/18 09:20 Dose: 1 tab Mupirocin (Bactroban Ointment) 1 gm TOP DAILY [facility] Magnesium Glycinate [Mag Glycinate] 500 Mg (Home Med) 500 mg PO DAILY [facility] Last Admin: 02/22/18 09:29 Dose: Not Given Pantoprazole Sodium (Protonix Ec Tab) 40 mg PO 0600 [facility] Last Admin: 02/22/18 06:58 Dose: 40 mg Potassium Chloride (Klor-Con 10) 10 meq PO BRK [facility] Last Admin: 02/22/18 09:20 Dose: 10 meq Primidone (Mysoline) 50 mg PO HS [facility] - Labs Labs: PT 12.6 SECONDS (9.4-12.5) H 02/21/18 19:55 INR 1.10 (0.93-1.08) H 02/21/18 19:55 APTT 41.8 Seconds (25.1-36.5) H 02/21/18 19:55 - Constitutional Appears: Well, No Acute Distress - Head Exam Head Exam: ATRAUMATIC, NORMAL INSPECTION, NORMOCEPHALIC - Eye Exam Eye Exam: EOMI, Normal appearance Pupil Exam: NORMAL ACCOMODATION - ENT Exam ENT Exam: Mucous Membranes Moist - Neck Exam Neck Exam: Full ROM - Respiratory Exam Respiratory Exam: Clear to Ausculation Bilateral, NORMAL BREATHING PATTERN. absent: Rales, Rhonchi, Wheezes - Cardiovascular Exam Cardiovascular Exam: REGULAR RHYTHM, +S1, +S2 - GI/Abdominal Exam GI & Abdominal Exam: Soft, Normal Bowel Sounds. absent: Guarding, Rigid, Tenderness - Extremities Exam Additional comments: Left foot exam: dime sized ulceration on plantar surface on left foot; small ulceration on left toe Chronic venous stasis skin changes bilaterally - Back Exam Back Exam: NORMAL INSPECTION - Neurological Exam Neurological Exam: Alert, Awake, Oriented x3 - Psychiatric Exam Psychiatric exam: Normal Affect, Normal Mood - Skin Skin Exam: Normal Color, Warm Assessment and Plan - Assessment and Plan (Free Text) Assessment: Patient is a 71 yo female with history of CAD s/p CABG, CHF s/p pacemaker placement, DM type 2, CKD, AAA s/p repair that presents for medical clearance for her left second digit foot infection. Patient has no complaints. Left Toe ulceration -Stable, afebrile -No leukocytosis of fevers -Foot Xray shows soft tissue swelling without acute articular or osseous abnormality -Antibiotics: Rocephin 1gm daily -Podiatry consult: Dr. Cortés -Patient for OR on sunday for wound debridement with podiatry -Medical Clearance pending -Wound care as needed -Lower extremity US ordered CHF -Continue home medications Lasix, Metolazone -Monitor I's and O's, Daily weight -Last stress test showed fixed, apical inferior, inferolateralm anterolaterl defects, severe LV dysfunction -Last Echo showed LVEF 33%, moderately dilated LV, markedly dilated LA/RA -Cardiology on consult, Dr Vidales, help appreciated DM type 2 -Humalog Med dose ISS -Accuchecks ACHS -F/U HgA1C -Consistent carb/heart healthy diet Acute on Chronic Kidney Disease -BUN/Cr 42/3.5 -Baseline CR 1.5-2.0 -Patient was recently taking Bactrim for foot infection -Urine lytes pending -Will start gentle IV fluids -Monitor I/Os, daily weights -Nephrology on consult, help appreciated CAD -Continue Metoprolol, isosorbide, ASA 81 -Continue Lipitor Osteoarthritis -Tylenol 650mg PO q6H prn GI/DVT prophylaxis -Protonix/Heparin <Hermila Gusman - Last Filed: 02/22/18 16:40> Objective - Vital Signs/Intake and Output Vital Signs (last 24 hours): Temp Pulse Resp BP Pulse Ox 97.1 F L 78 20 126/71 99 02/22/18 14:00 02/22/18 14:00 02/22/18 14:00 02/22/18 14:00 02/22/18 14:00 Intake and Output: 02/22/18 02/22/18 06:59 18:59 Intake Total 960 Balance 960 - Medications Medications: Current Medications Acetaminophen (Tylenol 325mg Tab) 650 mg PO Q6H PRN PRN Reason: Pain, moderate (4-7) Last Admin: 02/22/18 10:49 Dose: 650 mg Ascorbic Acid (Vitamin C 500 Mg Tab) 500 mg PO DAILY [facility] Last Admin: 02/22/18 09:20 Dose: 500 mg Aspirin (Ecotrin) 81 mg PO DAILY [facility] Last Admin: 02/22/18 09:20 Dose: 81 mg Atorvastatin Calcium (Lipitor) 10 mg PO DIN [facility] Cholecalciferol (Vitamin D) 1,000 intlu PO DAILY [facility] Last Admin: 02/22/18 10:51 Dose: 1,000 intlu Cyanocobalamin (Vitamin B12 1000 Mcg Tab) 1,000 mcg PO BID [facility] Last Admin: 02/22/18 09:19 Dose: 1,000 mcg Furosemide (Lasix) 80 mg PO BID [facility] Last Admin: 02/22/18 09:19 Dose: 80 mg Heparin Sodium (Porcine) (Heparin) 5,000 units SC Q12 [facility] PRN Reason: Protocol Sodium Chloride (Sodium Chloride 0.9%) 1,000 mls @ 50 mls/hr IV .Q20H [facility] Ceftaroline Fosamil 200 mg/ (Sodium Chloride) 50 mls @ 50 mls/hr IVPB Q12H [facility] PRN Reason: Protocol Stop: 03/01/18 14:01 Insulin Human Regular (Humulin R Med) 0 units SC ACHS [facility] PRN Reason: Protocol Last Admin: 02/22/18 12:27 Dose: 3 units Isosorbide Dinitrate (Isordil) 60 mg PO DAILY [facility] Last Admin: 02/22/18 10:46 Dose: 60 mg Metolazone (Zaroxolyn) 2.5 mg PO DAILY [facility] Last Admin: 02/22/18 09:20 Dose: 2.5 mg Metoprolol Tartrate (Lopressor) 100 mg PO BID [facility] Last Admin: 02/22/18 09:18 Dose: 100 mg Multivitamins (Thera Tab) 1 tab PO DAILY [facility] Last Admin: 02/22/18 09:20 Dose: 1 tab Mupirocin (Bactroban Ointment) 1 gm TOP DAILY [facility] Mupirocin (Bactroban Ointment) 1 gm TOP BID [facility] Magnesium Glycinate [Mag Glycinate] 500 Mg (Home Med) 500 mg PO DAILY [facility] Last Admin: 02/22/18 09:29 Dose: Not Given Pantoprazole Sodium (Protonix Ec Tab) 40 mg PO 0600 [facility] Last Admin: 02/22/18 06:58 Dose: 40 mg Potassium Chloride (Klor-Con 10) 10 meq PO BRK [facility] Last Admin: 02/22/18 09:20 Dose: 10 meq Primidone (Mysoline) 50 mg PO HS [facility] - Labs Labs: PT 12.6 SECONDS (9.4-12.5) H 02/21/18 19:55 INR 1.10 (0.93-1.08) H 02/21/18 19:55 APTT 41.8 Seconds (25.1-36.5) H 02/21/18 19:55 Attending/Attestation - Attestation I have personally seen and examined this patient.: Yes I have fully participated in the care of the patient.: Yes I have reviewed all pertinent clinical information, including history, physical exam and plan: Yes Notes (Text): 02/22/18 16:28 71 year old female with past medical history of CAD s/p CABG, CHF s/p PPM, diabetes, CKD and AAA s/p repair who presented with left second digit foot infection. Podiatry and ID evaluations were requested. Continue with iv antibiotics. Foot xray was reviewed. CT lower extremity and extremity US is ordered. \Cardiology evaluation is requested for cardiac risk stratification for possible surgery on Sunday. Nephrology evaluation is requested for acute on chronic kidney disease. She is on gentle hydration. Hermila Gusman MD Hospitalist.
--- NOTE | 2018-02-22 13:43 | CP.PCM.CON ---
History of Present Illness - History of Present Illness History of Present Illness: Podiatry Consult note: Dr. Cortés 71 year old female patient with PMHx of CAD, CHF, DM type 2, CKD, AAA was seen and evaluated for left foot 2nd digit and submetatarsal head one wound. Patient reports that she was seen by Dr. Cortés recently who advised her to get medical clearance prior to 2nd digit procedure and sent her to PCP. Patient reports that her PCP sent her to the hospital for all the work up to be done prior to taking the patient to the OR. Patient reports that she has been taking bactrim for the past week to control the infection in her foot but has not been successful. Patient denies of having any pain today. Denies of having any recent F/N/V/C/SOB/CP. Patient denies of having any other pedal complains. PSHx: CABG, ileostomy, endovascular repair of AAA, cholecystectomy, pacemaker placement, left toe amputation PMHx: CAD s/p CABG, CHF s/p pacemaker placement, DM type 2, CKD, AAA s/p repair SHx: Former tobacco use (quit 16 yrs ago), denies alcohol and illicit drugs Allergies: N.K.D.A Review of Systems - Constitutional Constitutional: As Per HPI Past Patient History - Infectious Disease Hx of Infectious Diseases: None - Tetanus Immunizations Tetanus Immunization: Unknown - Past Social History Smoking Status: Former Smoker - CARDIAC Hx Pacemaker: Yes - PULMONARY Hx Respiratory Disorders: No - NEUROLOGICAL Hx Neurological Disorder: No - HEENT Hx Cataracts: Yes (bilateral laser sx) - RENAL Hx Chronic Kidney Disease: Yes - ENDOCRINE/METABOLIC Hx Diabetes Mellitus Type 2: Yes - HEMATOLOGICAL/ONCOLOGICAL Hx Blood Disorders: No (MRSA H/O) - INTEGUMENTARY Other/Comment: STage 3 sacral ulcers. BLE redness w/ scattered scabs. Under breasts folds redness. Bilateral under belly Folds redness skin excoriated - MUSCULOSKELETAL/RHEUMATOLOGICAL Hx Arthritis: Yes - GASTROINTESTINAL Hx Gastrointestinal Disorders: Yes (umbilical hernia) Hx Ileostomy: Yes - GENITOURINARY/GYNECOLOGICAL Hx Genitourinary Disorders: No - PSYCHIATRIC Hx Psychophysiologic Disorder: No Hx Substance Use: No - SURGICAL HISTORY Hx Cardiac Catheterization: Yes Hx Coronary Artery Bypass Graft: Yes (QUADRUPLE) - ANESTHESIA Hx Anesthesia: Yes Hx Anesthesia Reactions: No Hx Malignant Hyperthermia: No Meds Allergies/Adverse Reactions: Allergies Allergy/AdvReac Type Severity Reaction Status Date / Time shellfish derived Allergy ANAPHYLAXIS Verified 02/19/17 13:57 - Medications Medications: Current Medications Acetaminophen (Tylenol 325mg Tab) 650 mg PO Q6H PRN PRN Reason: Pain, moderate (4-7) Last Admin: 02/22/18 10:49 Dose: 650 mg Ascorbic Acid (Vitamin C 500 Mg Tab) 500 mg PO DAILY [facility] Last Admin: 02/22/18 09:20 Dose: 500 mg Aspirin (Ecotrin) 81 mg PO DAILY [facility] Last Admin: 02/22/18 09:20 Dose: 81 mg Atorvastatin Calcium (Lipitor) 10 mg PO DIN [facility] Cholecalciferol (Vitamin D) 1,000 intlu PO DAILY [facility] Last Admin: 02/22/18 10:51 Dose: 1,000 intlu Cyanocobalamin (Vitamin B12 1000 Mcg Tab) 1,000 mcg PO BID [facility] Last Admin: 02/22/18 09:19 Dose: 1,000 mcg Furosemide (Lasix) 80 mg PO BID [facility] Last Admin: 02/22/18 09:19 Dose: 80 mg Heparin Sodium (Porcine) (Heparin) 5,000 units SC Q12 [facility] PRN Reason: Protocol Ceftriaxone Sodium (Rocephin 1 Gram Ivpb) 1 gm in 100 mls @ 100 mls/hr IVPB DAILY [facility] PRN Reason: Protocol Last Admin: 02/22/18 09:21 Dose: 100 mls/hr Sodium Chloride (Sodium Chloride 0.9%) 1,000 mls @ 50 mls/hr IV .Q20H [facility] Insulin Human Regular (Humulin R Med) 0 units SC ACHS [facility] PRN Reason: Protocol Last Admin: 02/22/18 12:27 Dose: 3 units Isosorbide Dinitrate (Isordil) 60 mg PO DAILY [facility] Last Admin: 02/22/18 10:46 Dose: 60 mg Metolazone (Zaroxolyn) 2.5 mg PO DAILY [facility] Last Admin: 02/22/18 09:20 Dose: 2.5 mg Metoprolol Tartrate (Lopressor) 100 mg PO BID [facility] Last Admin: 02/22/18 09:18 Dose: 100 mg Multivitamins (Thera Tab) 1 tab PO DAILY [facility] Last Admin: 02/22/18 09:20 Dose: 1 tab Mupirocin (Bactroban Ointment) 1 gm TOP DAILY [facility] Magnesium Glycinate [Mag Glycinate] 500 Mg (Home Med) 500 mg PO DAILY [facility] Last Admin: 02/22/18 09:29 Dose: Not Given Pantoprazole Sodium (Protonix Ec Tab) 40 mg PO 0600 [facility] Last Admin: 02/22/18 06:58 Dose: 40 mg Potassium Chloride (Klor-Con 10) 10 meq PO BRK [facility] Last Admin: 02/22/18 09:20 Dose: 10 meq Primidone (Mysoline) 50 mg PO HS [facility] Physical Exam - Constitutional Appears: Well, Non-toxic, No Acute Distress - Extremities Exam Additional comments: Left LE focused exam VASC: DP/PT pulses are palpable 2/4, Cap refill time: < 3 sec to all digits, Temp gradient is warm to warm from proximal to distal, 1+ pitting edema noted on the distal medial aspect of the leg and dorsum of the left foot DERM: Circular wound measuring approx 1.5 cm x 1.5 cm x 0.1 cm noted submetatarsal head 1, no tunneling, no undermining, no active drainage, no malodor, no probe to bone, no erythema, no clinical suspicion of active infection; Wound on the dorsal aspect of the 2nd digit with active sanguineous drainage, no tunneling, no undermining, no probe to bone, periwound maceration with increase in erythema and edema noted on the digit NEURO: Protective sensation grossly diminished ORTHO: Hallux amputation on the left foot, no pain on palpation of the wound - Neurological Exam Neurological exam: Alert, Oriented x3 - Psychiatric Exam Psychiatric exam: Normal Affect, Normal Mood Results - Vital Signs Recent Vital Signs: Last Vital Signs Temp 97.8 F 02/22/18 08:11 Pulse 93 H 02/22/18 08:11 Resp 20 02/22/18 08:11 BP 120/64 02/22/18 09:19 Pulse Ox 100 02/22/18 08:11 - Labs Result Diagrams: 02/22/18 07:30 02/22/18 07:30 Labs: Laboratory Results - last 24 hr 02/22/18 11:29 POC Glucose (mg/dL) 246 H Assessment & Plan - Assessment and Plan (Free Text) Assessment: 72 year old female with cellulitic changes secondary to left 2nd digit and plantar sub-metatarsal head 1 wound Plan: Patient seen and evaluated Discussed plan with attending Dr. Cortés Labs, vitals and charts reviewed - afebrile Wound cleaned using sterile saline and dressing applied using betadine DSD Unable to obtain MRI to r/o OM due to pacemaker - CT scan ordered Plan for wound debridement/possible 2nd digit amputation of the left foot on Sunday Patient will require medical optimization Continue IV abx as per ID Bactroban ordered Surgical shoe ordered Thank you for the podiatry consult and allowing to take part in patient care Podiatry to follow patient while in-house - Date & Time Date: 02/22/18 Time: 13:58
--- NOTE | 2018-02-22 13:57 | CP.PCM.CON ---
History of Present Illness - History of Present Illness History of Present Illness: 72 year old female with PMH of CAD S/P CABG, abdominal aortic aneurysm S/P repair, S/P cholecystectomy, S/P pacemaker placement, DM, S/P left toe amputation came in to [facility] after she was sent by her Business Services Intern since it is planned that her left 2nd digit needs to be amputated. She has been on PO Bactrim for about a week now without improvement in her left 2nd digit on her foot. She denies soaking her feet in water, no walking barefoot on soil, no fever or chills, no nausea or vomiting, no chest pain, no SOB, no headache or dizziness, no abdominal pain, no diarrhea, on dysuria, no cough or colds. Infectious diseases consult is requested to further evaluate and manage. Review of Systems - Review of Systems All systems: reviewed and no additional remarkable complaints except (as per HPI ) Past Patient History - Infectious Disease Hx of Infectious Diseases: None - Tetanus Immunizations Tetanus Immunization: Unknown - Past Social History Smoking Status: Former Smoker - CARDIAC Hx Pacemaker: Yes - PULMONARY Hx Respiratory Disorders: No - NEUROLOGICAL Hx Neurological Disorder: No - HEENT Hx Cataracts: Yes (bilateral laser sx) - RENAL Hx Chronic Kidney Disease: Yes - ENDOCRINE/METABOLIC Hx Diabetes Mellitus Type 2: Yes - HEMATOLOGICAL/ONCOLOGICAL Hx Blood Disorders: No (MRSA H/O) - INTEGUMENTARY Other/Comment: STage 3 sacral ulcers. BLE redness w/ scattered scabs. Under breasts folds redness. Bilateral under belly Folds redness skin excoriated - MUSCULOSKELETAL/RHEUMATOLOGICAL Hx Arthritis: Yes - GASTROINTESTINAL Hx Gastrointestinal Disorders: Yes (umbilical hernia) Hx Ileostomy: Yes - GENITOURINARY/GYNECOLOGICAL Hx Genitourinary Disorders: No - PSYCHIATRIC Hx Psychophysiologic Disorder: No Hx Substance Use: No - SURGICAL HISTORY Hx Cardiac Catheterization: Yes Hx Coronary Artery Bypass Graft: Yes (QUADRUPLE) - ANESTHESIA Hx Anesthesia: Yes Hx Anesthesia Reactions: No Hx Malignant Hyperthermia: No Meds Allergies/Adverse Reactions: Allergies Allergy/AdvReac Type Severity Reaction Status Date / Time shellfish derived Allergy ANAPHYLAXIS Verified 02/19/17 13:57 - Medications Medications: Current Medications Acetaminophen (Tylenol 325mg Tab) 650 mg PO Q6H PRN PRN Reason: Pain, moderate (4-7) Ascorbic Acid (Vitamin C 500 Mg Tab) 500 mg PO DAILY [facility] Last Admin: 02/22/18 09:20 Dose: 500 mg Aspirin (Ecotrin) 81 mg PO DAILY [facility] Last Admin: 02/22/18 09:20 Dose: 81 mg Atorvastatin Calcium (Lipitor) 10 mg PO DIN [facility] Cholecalciferol (Vitamin D) 1,000 intlu PO DAILY [facility] Cyanocobalamin (Vitamin B12 1000 Mcg Tab) 1,000 mcg PO BID [facility] Last Admin: 02/22/18 09:19 Dose: 1,000 mcg Enoxaparin Sodium (Lovenox) 30 mg SC DAILY [facility] PRN Reason: Protocol Last Admin: 02/22/18 09:21 Dose: 30 mg Furosemide (Lasix) 80 mg PO BID [facility] Last Admin: 02/22/18 09:19 Dose: 80 mg Ceftriaxone Sodium (Rocephin 1 Gram Ivpb) 1 gm in 100 mls @ 100 mls/hr IVPB DAILY [facility] PRN Reason: Protocol Last Admin: 02/22/18 09:21 Dose: 100 mls/hr Sodium Chloride (Sodium Chloride 0.9%) 1,000 mls @ 50 mls/hr IV .Q20H [facility] Insulin Human Regular (Humulin R Med) 0 units SC ACHS [facility] PRN Reason: Protocol Last Admin: 02/22/18 08:45 Dose: Not Given Isosorbide Dinitrate (Isordil) 60 mg PO DAILY [facility] Metolazone (Zaroxolyn) 2.5 mg PO DAILY [facility] Last Admin: 02/22/18 09:20 Dose: 2.5 mg Metoprolol Tartrate (Lopressor) 100 mg PO BID [facility] Last Admin: 02/22/18 09:18 Dose: 100 mg Multivitamins (Thera Tab) 1 tab PO DAILY [facility] Last Admin: 02/22/18 09:20 Dose: 1 tab Mupirocin (Bactroban Ointment) 1 gm TOP DAILY [facility] Magnesium Glycinate [Mag Glycinate] 500 Mg (Home Med) 500 mg PO DAILY [facility] Last Admin: 02/22/18 09:29 Dose: Not Given Pantoprazole Sodium (Protonix Ec Tab) 40 mg PO 0600 [facility] Last Admin: 02/22/18 06:58 Dose: 40 mg Potassium Chloride (Klor-Con 10) 10 meq PO BRK [facility] Last Admin: 02/22/18 09:20 Dose: 10 meq Primidone (Mysoline) 50 mg PO HS [facility] Physical Exam - Constitutional Appears: Non-toxic, Chronically Ill - Head Exam Head Exam: NORMAL INSPECTION - ENT Exam ENT Exam: Mucous Membranes Moist - Neck Exam Neck exam: Negative for: Meningismus - Respiratory Exam Respiratory Exam: Decreased Breath Sounds - Cardiovascular Exam Cardiovascular Exam: +S1, +S2 - GI/Abdominal Exam GI & Abdominal Exam: Soft. absent: Tenderness - Extremities Exam Additional comments: left foot with dressings in place Results - Vital Signs Recent Vital Signs: Last Vital Signs Temp 97.8 F 02/22/18 08:11 Pulse 93 H 02/22/18 08:11 Resp 20 02/22/18 08:11 BP 120/64 02/22/18 09:19 Pulse Ox 100 02/22/18 08:11 - Labs Result Diagrams: 02/22/18 07:30 02/22/18 07:30 Assessment & Plan - Assessment and Plan (Free Text) Plan: Assessment Consider left foot 2nd digit skin and skin structure infection R/O osteomyelitis CAD S/P CABG abdominal aortic aneurysm S/P repair S/P cholecystectomy S/P pacemaker placement DM S/P left toe amputation Plan started the patient on Teflaro pending blood and wound cx; will also order duplex U/S of lower extremities to rule out PAD for OR on Sunday and will await OR cx and pathology then
--- NOTE | 2018-02-22 15:54 | US ---
PROCEDURE: Lower extremity GORDY exam HISTORY: Peripheral vascular disease with pain and ulceration. Previous smoker. Diabetes. PHYSICIAN(S): Vinnie Sarmiento MD. FINDINGS: The right resting GORDY is mildly abnormal, 0.72. The left resting GORDY is borderline abnormal, 0.88 The brachial systolic pressures are symmetric. The high thigh pressures and waveforms are relatively normal. There is a 37 mm gradient across the right knee. The right calf ankle and metatarsal waveforms are severely blunted. Findings are consistent with right distal SFA, popliteal, and/ or tibial disease. The left calf PVR waveform augments normally. The left ankle and metatarsal waveforms are relatively normal. IMPRESSION: 1. Mildly abnormal right GORDY at rest. 2. Distal right SFA, popliteal, and/ or tibial disease.
--- NOTE | 2018-02-22 17:17 | CT ---
PROCEDURE: Left Foot CT without Contrast HISTORY: r/o OM of 2nd digit COMPARISON: Left foot radiographs 02/21/2018. TECHNIQUE: A volumetric CT of the left foot was performed without intravenous contrast with reformatted datasets provided sagittal axial coronal planes. Intravenous contrast not administered as per referring physician request. Radiation dose:Total exam DLP = 327.03 mGy-cm. This CT exam was performed using one or more of the following dose reduction techniques: Automated exposure control, adjustment of the mA and/or kV according to patient size, and/or use of iterative reconstruction technique. FINDINGS: Flexion deformities of the remaining digits in this patient is status post partial amputation of the great toe limit evaluation of the digits. There is a heterogeneous density identified at the distal portion of the 2nd digit including the middle and distal phalanges suspicious for potential osteomyelitis related osteopenia but no obvious periosteal reaction is appreciable. Clinically correlate further. These changes are not appreciated at the 3rd 4th and 5th digits making this more suspicious for osteomyelitis. Three-phase nuclear bone scan may be helpful for additional characterization. Diffuse osteopenia suggests osteoporosis. No fracture or subluxation appreciable grossly. No dislocation either. degenerative osteoarthritis is appreciate throughout the interphalangeal joints diffusely as well as the metatarsophalangeal joints diffusely. Pain status post amputation across the proximal phalanx great toe. No emphysematous changes seen throughout the soft tissues of the left foot diffusely with moderate degenerative cortical sclerosis appreciate throughout the mid and hindfoot joints. Relatively prominent soft tissue edema seen throughout the digits and proximal forefoot and is mild otherwise throughout the remainder of the left foot. IMPRESSION: Findings suspicious for osteomyelitis of the middle and distal phalanges of the 2nd digit. Prominent forefoot cellulitis without emphysema or definite retained radiodense foreign body related. Prior partial amputation proximal phalanx left great toe. Moderate degenerative changes diffusely noted as per above.
--- NOTE | 2018-02-22 20:35 | CON ---
DATE: 02/22/2018 CARDIOLOGY CONSULTATION HISTORY OF PRESENT ILLNESS: The patient is a 72-year-old woman who presents with an abscess in her lower extremity. There are plans for excision. The patient's past medical history has an extensive cardiac history. 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 She was on IV Primacor for recurrent CHF for several years, it was finally stopped for almost 2 years ago when diet as well as personal behavior resulted in her CHF symptoms being controlled. She has been off Primacor for the past two years. In addition, she suffers from hypertension, diabetes mellitus, and history of recurrent pedal edema. Because of her cellulitis and abscess in the lower extremity, the patient was admitted on IV antibiotics. SOCIAL HISTORY: The patient does not smoke. REVIEW OF SYSTEMS: Reviewed in detail. All her cardiac symptoms are well-controlled. PHYSICAL EXAMINATION: VITAL SIGNS: Blood pressure 120/64, heart rates in the 90s. NECK: Negative JVD. LUNGS: Clear to auscultation. No rales noted. HEART: Reveals S1, S2. EXTREMITIES: Chronic edematous changes noted. There is cellulitis in the lower extremity. LABORATORY DATA: EKG shows a paced rhythm. Hemoglobin is 11.9, white count is 10.7. BUN and creatinine are 40 and 3.2. Glucose is 126. IMPRESSION: 1. Cellulitis and abscess in the lower extremity. 2. End-stage dilated cardiomyopathy with an ejection fraction of 23%. 3. Diabetes mellitus. 4. Renal insufficiency. 5. Peripheral vascular disease. 6. Chronic pedal edema. 7. Recurrent congestive heart failure, which is now well-controlled. 8. History of implantable cardioverter defibrillator placement. Given these findings, the patient is at increased risk for any anesthesia. However, her cardiac status is at its optimum at this time. Vinnie Vidales MD
--- NOTE | 2018-02-22 23:42 | CON ---
DATE: NEPHROLOGY CONSULTATION LOCATION: [facility], [place]. HISTORY OF PRESENT ILLNESS: A 72-year-old female with past medical history of CAD status post CABG, ischemic cardiomyopathy with severe systolic dysfunction, status post pacemaker placement, diabetes, hypertension, CKD stage IIIB, peripheral arterial disease with AAA status post endovascular repair, sent from PMD's office for medical clearance and optimization prior to left foot second digit debridement; Nephrology being consulted for acute renal failure. Patient reports feeling well overall; being treated for foot infection with Bactrim lately; otherwise patient reports no fevers or chills, having good appetite; no chest pain or palpitations; has been adherent to low-salt diet and has been on diuretics with Lasix 80 mg twice a day; lately reports increased ostomy output and more liquidy stool; patient otherwise urinating well. PAST MEDICAL HISTORY: As above. PAST SURGICAL HISTORY: Status post CABG, status post ileostomy for ischemic colitis, status post endovascular repair of AAA, status post cholecystectomy, status post pacemaker placement, status post left toe amputation. SOCIAL HISTORY: Former smoker. FAMILY HISTORY: Mother with uterine/breast cancer. Father with CHF, throat cancer. Brother with leukemia, status post placement. REVIEW OF SYSTEMS: CONSTITUTIONAL: No anorexia. No fevers, chills. HEENT: Reports vision being stable, denies being told about diabetic retinopathy. No sore throat or URI symptoms. RESPIRATORY: No difficulty breathing. CARDIOVASCULAR: No chest pain, palpitations. GASTROINTESTINAL: As per HPI. No nausea, vomiting. GENITOURINARY: No dysuria. NEUROLOGIC: Numbness in feet due to neuropathy, also with tremor of hands. PSYCHIATRIC: Denies any depression or anxiety. SKIN: Denies any itching or rashes. MUSCULOSKELETAL: Gets right hip pain, only using Tylenol and Percocet. Denies NSAID use. PHYSICAL EXAMINATION: VITAL SIGNS: This morning blood pressure 112/69, heart rate 93, respirations 20, temperature 97.8, O2 sat 100% on room air. GENERAL: No distress. Conversing coherently in full sentences. Sitting up in chair. HEENT: Moist mucous membranes. Nonicteric. No cervical lymphadenopathy. No obvious JVD. RESPIRATORY: Lungs are clear to auscultation bilaterally. No rales, no rhonchi, no wheezes. CARDIOVASCULAR: Heart sounds, S1, S2 normal. No murmurs, no gallops, no rubs. PMI displaced laterally. GASTROINTESTINAL: Abdomen soft, nontender, nondistended. GENITOURINARY: No obvious bladder distention. EXTREMITIES: No lower leg edema. SKIN: Warm. No cyanosis. PSYCHIATRIC: Normal mood, normal affect. NEUROLOGICAL: Mild tremor at rest of outstretched hands. LABORATORY DATA: This morning CBC: WBC 10.7, hemoglobin 11.9, hematocrit 37.2, platelets 235. Chemistry panel: Sodium 140, potassium 4.8, chloride 105, bicarb 23, BUN 40, creatinine 3.2, glucose 126, calcium 9, magnesium 2.1. AST 29, ALT 18, albumin 4. Hemoglobin A1c is 6.5. Chest x-ray, directly reviewed from yesterday showing some mild pulmonary vascular congestion, possibly; otherwise lungs clear. ASSESSMENT AND PLAN: 1. Acute kidney injury on chronic kidney disease, stage IIIB, most likely prerenal etiology in the setting of increased gastrointestinal losses from ostomy; otherwise, patient appears euvolemic on exam; doubt cardiorenal component currently. I agree with gentle IV fluids with NS at 60 mL/hour for next 24 hours. Should hold diuretics in the interim as we would like to expand intravascular space. Continue to avoid nephrotoxic agents. We will follow up urine electrolytes. 2. Chronic kidney disease, stage IIIB. Patient with slowly progressive proteinuric chronic kidney disease. On perusal of previous record, baseline serum creatinine four years ago was 1.4, recent baseline creatinine is about 2.2. Patient had some workup done about 5 years ago during which 24-hour urine protein revealed nephrotic range proteinuria with 11 g on collection; recent UA's have shown 2+ proteinuria; would have expected more rapid decline in renal function given severe proteinuria. However, currently shows no signs of having nephrotic syndrome (no peripheral edema, normal serum albumin). We will repeat serologic and urine workup for etiology of chronic kidney disease. We will check chronic kidney disease parameters for mineral bone disease and anemia; 3. Congestive heart failure with severe systolic dysfunction. Patient currently is not in exacerbation; however, given history of being on inotrope one year ago, would be very cautious in giving IV fluids; should reassess after 1 liter normal saline is given. 4. Hypertension. Blood pressure is currently controlled. Continue current medications while holding diuretics. 5. Foot infection. Patient is currently on ceftriaxone. No renal dose adjustment needed. Thank you for this referral. We will be following up closely. Derek Cedeno MD
[2018-02-23] MEDS: Pantoprazole 40 mg EC Tab PO SCH (06:05)
[2018-02-23 07:32] LABS: BASO # 0.01 K/mm3 (0.0-2.0); BASO % 0.1 % (0.0-3.0); EOS # 0.4 (0.0-0.7); GRAN % 80.9 % (50.0-68.0); HEMOGLOBIN 11.5 g/dL (12.0-16.0); LYMPH # 0.9 (1.2-3.4); LYMPH % 10.5 % (22.0-35.0); MEAN CELL VOLUME 95.5 fl (80.0-105.0); MEAN CORPUSCULAR HEMOGLOBIN 30.2 pg (25.0-35.0); MEAN CORPUSCULAR HGB CONC 31.6 g/dl (31.0-37.0); MEAN PLATELET VOLUME 9.3 fl (7.0-11.0); MONO # 0.4 (0.1-0.6); MONO % 4.5 % (1.0-6.0); RBC 3.81 10^6/uL (3.5-6.1); WHITE BLOOD COUNT 8.7 10^3/ul (4.5-11.0)
[2018-02-23 07:52] LABS: IRON 56 ug/dL (45-180)
[2018-02-23 08:01] LABS: % IRON SATURATION 24 % (20-55); TOTAL IRON BINDING CAPACITY 230 ug/dL (265-497)
[2018-02-23 08:04] LABS: ALB/GLOB RATIO 1.2 (1.1-1.8); ALBUMIN 3.8 g/dL (3.0-4.8); CALCIUM 8.8 mg/dL (8.4-10.5); URIC ACID 8.1 mg/dL (2.5-6.2)
--- NOTE | 2018-02-23 09:12 | CP.PCM.PN ---
Subjective - Date & Time of Evaluation Date of Evaluation: 02/23/18 Time of Evaluation: 09:09 - Subjective Subjective: Podiatry progress note: Dr. Cortés 71 year old female patient seen and evaluated for left foot 2nd digit and submetatarsal head one wound. Patient reports that she was seen by Dr. Cortés recently who advised her to get medical clearance prior to 2nd digit procedure and sent her to PCP. Patient denies of having any pain today. Denies of having any recent F/N/V/C/SOB/CP. Patient denies of having any other pedal complains. Dressing to left foot remains c/d/i. Objective - Vital Signs/Intake and Output Vital Signs (last 24 hours): Temp Pulse Resp BP Pulse Ox 97.1 F L 78 20 128/72 99 02/22/18 14:00 02/22/18 14:00 02/22/18 14:00 02/22/18 17:38 02/22/18 14:00 Intake and Output: 02/23/18 02/23/18 06:59 18:59 Intake Total 1320 Balance 1320 - Medications Medications: Current Medications Acetaminophen (Tylenol 325mg Tab) 650 mg PO Q6H PRN PRN Reason: Pain, moderate (4-7) Last Admin: 02/23/18 06:05 Dose: 650 mg Ascorbic Acid (Vitamin C 500 Mg Tab) [address] [facility] Last Admin: 02/22/18 09:20 Dose: 500 mg Aspirin (Ecotrin) [address] [facility] Last Admin: 02/22/18 09:20 Dose: 81 mg Atorvastatin Calcium (Lipitor) [address] [facility] Last Admin: 02/22/18 17:38 Dose: 10 mg Cholecalciferol (Vitamin D) 1,[address] [facility] Last Admin: 02/22/18 10:51 Dose: 1,000 intlu Cyanocobalamin (Vitamin B12 1000 Mcg Tab) 1,[address] [facility] Last Admin: 02/22/18 17:39 Dose: 1,000 mcg Furosemide (Lasix) [address] [facility] Last Admin: 02/22/18 09:19 Dose: 80 mg Heparin Sodium (Porcine) (Heparin) 5,000 units SC Q12 [facility] PRN Reason: Protocol Last Admin: 02/22/18 21:50 Dose: 5,000 units Sodium Chloride (Sodium Chloride 0.9%) 1,000 mls @ 50 mls/hr IV .Q20H [facility] Last Admin: 02/22/18 21:58 Dose: 50 mls/hr Ceftaroline Fosamil 200 mg/ (Sodium Chloride) 50 mls @ 50 mls/hr IVPB Q12H [facility] PRN Reason: Protocol Stop: 03/01/18 14:01 Last Admin: 02/23/18 01:29 Dose: 50 mls/hr Insulin Human Regular (Humulin R Med) [address] [facility] PRN Reason: Protocol Last Admin: 02/22/18 23:06 Dose: Not Given Isosorbide Dinitrate (Isordil) [address] [facility] Last Admin: 02/22/18 10:46 Dose: 60 mg Metolazone (Zaroxolyn) 2.[address] [facility] Last Admin: 02/22/18 09:20 Dose: 2.5 mg Metoprolol Tartrate (Lopressor) [address] [facility] Last Admin: 02/22/18 17:38 Dose: 100 mg Multivitamins (Thera Tab) [address] [facility] Last Admin: 02/22/18 09:20 Dose: 1 tab Mupirocin (Bactroban Ointment) [address] [facility] Last Admin: 02/22/18 09:00 Dose: Not Given Mupirocin (Bactroban Ointment) [address] [facility] Last Admin: 02/22/18 17:29 Dose: Not Given Magnesium Glycinate [Mag Glycinate] 500 Mg (Home Med) [address] [facility] Last Admin: 02/22/18 09:29 Dose: Not Given Pantoprazole Sodium (Protonix Ec Tab) [address] [facility] Last Admin: 02/23/18 06:05 Dose: 40 mg Potassium Chloride (Klor-Con 10) [address] [facility] Last Admin: 02/22/18 09:20 Dose: 10 meq Primidone (Mysoline) [address] [facility] Last Admin: 02/22/18 21:50 Dose: 50 mg - Labs Labs: 02/23/18 06:40 02/23/18 06:40 PT 12.6 SECONDS (9.4-12.5) H 02/21/18 19:55 INR 1.10 (0.93-1.08) H 02/21/18 19:55 APTT 41.8 Seconds (25.1-36.5) H 02/21/18 19:55 - Constitutional Appears: Well, Non-toxic, No Acute Distress - Extremities Exam Additional comments: Left LE focused exam VASC: DP/PT pulses are palpable 2/4, Cap refill time: < 3 sec to all digits, Temp gradient is warm to warm from proximal to distal, 1+ pitting edema noted on the distal medial aspect of the leg and dorsum of the left foot DERM: Circular wound measuring approx 1.5 cm x 1.5 cm x 0.1 cm noted submetatarsal head 1, no tunneling, no undermining, no active drainage, no malodor, no probe to bone, no erythema, no clinical suspicion of active infection; Wound on the dorsal aspect of the 2nd digit with active sanguineous drainage, no tunneling, no undermining, no probe to bone, periwound maceration with increase in erythema and edema noted on the digit NEURO: Protective sensation grossly diminished ORTHO: Hallux amputation on the left foot, no pain on palpation of the wound - Neurological Exam Neurological Exam: Alert, Awake, Oriented x3 - Psychiatric Exam Psychiatric exam: Normal Affect, Normal Mood Assessment and Plan - Assessment and Plan (Free Text) Assessment: 72 year old female with cellulitic changes secondary to left 2nd digit and plantar sub-metatarsal head 1 wound Plan: Patient seen and evaluated Discussed plan with attending Dr. Cortés Labs, vitals and charts reviewed - afebrile, WBC 8.7 Wound cleaned using sterile saline and dressing applied using betadine DSD Unable to obtain MRI to r/o OM due to pacemaker - CT scan ordered: OM of middle and distal phalanx of 2nd digit left foot Plan for wound debridement/ 2nd digit amputation of the left foot on Sunday f/u medical optimization Continue IV abx as per ID Bactroban ordered Surgical shoe ordered Podiatry to follow patient while in-house
[2018-02-23] MEDS: Cholecalciferol 1,000 INTLU TAB PO SCH (09:36)
[2018-02-23] MEDS: Potassium Chloride 10 mEq ER Tab PO SCH (09:36)
[2018-02-23] MEDS: Insulin Reg-MEDIUM-Coverage SC SCH ×3 (09:37→16:23)
[2018-02-23] MEDS: MAGNESIUM GLYCINATE PO SCH (09:50)
[2018-02-23] MEDS: Multivitamin Therapeutic Tab PO SCH (10:07)
--- NOTE | 2018-02-23 10:29 | CP.PCM.PN ---
<Bri Morgan - Last Filed: 02/23/18 11:00> Subjective - Date & Time of Evaluation Date of Evaluation: 02/23/18 Time of Evaluation: 10:27 - Subjective Subjective: Internal Medicine Progress Note: Patient seen and examined at bedside. Per nursing no acute events overnight. Patient is doing well, pain is controlled. Tolerating diet and ambulating. Denies fevers, chills, headaches, dizziness, cp, palpitations, sob, abdominal pain, urinary symptoms. Objective - Vital Signs/Intake and Output Vital Signs (last 24 hours): Temp Pulse Resp BP Pulse Ox 98.0 F 94 H 20 150/90 98 02/23/18 06:00 02/23/18 06:00 02/23/18 06:00 02/23/18 06:00 02/23/18 06:00 Intake and Output: 02/23/18 02/23/18 06:59 18:59 Intake Total 1320 Balance 1320 - Medications Medications: Current Medications Acetaminophen (Tylenol 325mg Tab) 650 mg PO Q6H PRN PRN Reason: Pain, moderate (4-7) Last Admin: 02/23/18 06:05 Dose: 650 mg Ascorbic Acid (Vitamin C 500 Mg Tab) 500 mg PO DAILY [facility] Last Admin: 02/23/18 09:36 Dose: 500 mg Aspirin (Ecotrin) 81 mg PO DAILY [facility] Last Admin: 02/23/18 09:36 Dose: 81 mg Atorvastatin Calcium (Lipitor) 10 mg PO DIN [facility] Last Admin: 02/22/18 17:38 Dose: 10 mg Cholecalciferol (Vitamin D) 1,000 intlu PO DAILY [facility] Last Admin: 02/23/18 09:36 Dose: 1,000 intlu Cyanocobalamin (Vitamin B12 1000 Mcg Tab) 1,000 mcg PO BID [facility] Last Admin: 02/22/18 17:39 Dose: 1,000 mcg Furosemide (Lasix) 80 mg PO BID [facility] Last Admin: 02/22/18 09:19 Dose: 80 mg Heparin Sodium (Porcine) (Heparin) 5,000 units SC Q12 [facility] PRN Reason: Protocol Last Admin: 02/23/18 09:35 Dose: 5,000 units Sodium Chloride (Sodium Chloride 0.9%) 1,000 mls @ 50 mls/hr IV .Q20H [facility] Last Admin: 02/22/18 21:58 Dose: 50 mls/hr Ceftaroline Fosamil 200 mg/ (Sodium Chloride) 50 mls @ 50 mls/hr IVPB Q12H [facility] PRN Reason: Protocol Stop: 03/01/18 14:01 Last Admin: 02/23/18 01:29 Dose: 50 mls/hr Insulin Human Regular (Humulin R Med) 0 units SC ACHS [facility] PRN Reason: Protocol Last Admin: 02/23/18 09:37 Dose: 1 units Isosorbide Dinitrate (Isordil) 60 mg PO DAILY [facility] Last Admin: 02/23/18 10:07 Dose: 60 mg Metolazone (Zaroxolyn) 2.5 mg PO DAILY [facility] Last Admin: 02/22/18 09:20 Dose: 2.5 mg Metoprolol Tartrate (Lopressor) 100 mg PO BID [facility] Last Admin: 02/23/18 09:36 Dose: 100 mg Multivitamins (Thera Tab) 1 tab PO DAILY [facility] Last Admin: 02/23/18 10:07 Dose: 1 tab Mupirocin (Bactroban Ointment) 1 gm TOP DAILY [facility] Last Admin: 02/23/18 09:35 Dose: 1 applic Mupirocin (Bactroban Ointment) 1 gm TOP BID [facility] Last Admin: 02/22/18 17:29 Dose: Not Given Magnesium Glycinate [Mag Glycinate] 500 Mg (Home Med) 500 mg PO DAILY [facility] Last Admin: 02/23/18 09:50 Dose: Not Given Pantoprazole Sodium (Protonix Ec Tab) 40 mg PO 0600 [facility] Last Admin: 02/23/18 06:05 Dose: 40 mg Potassium Chloride (Klor-Con 10) 10 meq PO BRK [facility] Last Admin: 02/23/18 09:36 Dose: 10 meq Primidone (Mysoline) 50 mg PO HS [facility] Last Admin: 02/22/18 21:50 Dose: 50 mg - Labs Labs: 02/23/18 06:40 02/23/18 06:40 PT 12.6 SECONDS (9.4-12.5) H 02/21/18 19:55 INR 1.10 (0.93-1.08) H 02/21/18 19:55 APTT 41.8 Seconds (25.1-36.5) H 02/21/18 19:55 - Additional Findings Additional findings: - Constitutional Appears: Well, No Acute Distress - Head Exam Head Exam: ATRAUMATIC, NORMAL INSPECTION, NORMOCEPHALIC - Eye Exam Eye Exam: EOMI, Normal appearance Pupil Exam: NORMAL ACCOMODATION - ENT Exam ENT Exam: Mucous Membranes Moist - Neck Exam Neck Exam: Full ROM - Respiratory Exam Respiratory Exam: Clear to Ausculation Bilateral, NORMAL BREATHING PATTERN. absent: Rales, Rhonchi, Wheezes - Cardiovascular Exam Cardiovascular Exam: REGULAR RHYTHM, +S1, +S2 - GI/Abdominal Exam GI & Abdominal Exam: Soft, Normal Bowel Sounds, +Ileostomy. absent: Guarding, Rigid, Tenderness - Extremities Exam Additional comments: Left foot exam: dime sized ulceration on plantar surface on left foot; small ulceration on left toe Chronic venous stasis skin changes bilaterally - Back Exam Back Exam: NORMAL INSPECTION - Neurological Exam Neurological Exam: Alert, Awake, Oriented x3 - Psychiatric Exam Psychiatric exam: Normal Affect, Normal Mood - Skin Skin Exam: Normal Color, Warm Assessment and Plan - Assessment and Plan (Free Text) Assessment: Patient is a 71 yo female with history of CAD s/p CABG, CHF s/p pacemaker placement, DM type 2, CKD, AAA s/p repair that presents for medical clearance for her left second digit foot infection. Patient has no complaints. Left Toe Osteomyeolitis/ulceration -Stable, afebrile -No leukocytosis -Foot Xray shows soft tissue swelling without acute articular or osseous abnormality -Foot CT showed findings suspicious for osteomyelolitis of middle and distal phalanges of second digit -Blood cultures no growth x 24 hours -Patient going to the OR Sunday for left 2nd digit debridement/amputation -Antibiotics: Teflaro 200mg q12H -Podiatry consult: Dr. Cortés -Cardiology: Patient increased risk for any anesthesia, cardiac status is optimum -Lower extremity US showed mildly normal Right GORDY at rest; distal right SFA, popliteal, tibial disease History CHF -Patient not in exacerbation -Will hold diuretics at this time -Monitor I's and O's, Daily weight -Last stress test showed fixed, apical inferior, inferolateral anterolateral defects, severe LV dysfunction -Last Echo showed LVEF 33%, moderately dilated LV, markedly dilated LA/RA -Cardiology on consult, Dr Vidales, help appreciated DM type 2 -Humalog Med dose ISS -Accuchecks ACHS -Hga1c 6.5 -Consistent carb/heart healthy diet Acute on Chronic Kidney Disease -BUN/Cr 43/2.9, improved with gentle hydration -Baseline CR 1.5-2.0 -Urine lytes pending -Renal workup in progress -Will discontinue fluids at this time -Hold diuresis at this time -Monitor I/Os, daily weights -Nephrology on consult, help appreciated CAD -Continue Metoprolol, isosorbide, ASA 81 -Continue Lipitor Osteoarthritis -Tylenol 650mg PO q6H prn GI/DVT prophylaxis -Protonix/Heparin Plan discussed with Dr Gusman <Hermila Gusman - Last Filed: 02/23/18 13:54> Objective - Vital Signs/Intake and Output Vital Signs (last 24 hours): Temp Pulse Resp BP Pulse Ox 98.0 F 94 H 20 150/90 98 02/23/18 06:00 02/23/18 06:00 02/23/18 06:00 02/23/18 06:00 02/23/18 06:00 Intake and Output: 02/23/18 02/23/18 06:59 18:59 Intake Total 1320 Balance 1320 - Medications Medications: Current Medications Acetaminophen (Tylenol 325mg Tab) 650 mg PO Q6H PRN PRN Reason: Pain, moderate (4-7) Last Admin: 02/23/18 06:05 Dose: 650 mg Ascorbic Acid (Vitamin C 500 Mg Tab) 500 mg PO DAILY [facility] Last Admin: 02/23/18 09:36 Dose: 500 mg Aspirin (Ecotrin) 81 mg PO DAILY [facility] Last Admin: 02/23/18 09:36 Dose: 81 mg Atorvastatin Calcium (Lipitor) 10 mg PO DIN [facility] Last Admin: 02/22/18 17:38 Dose: 10 mg Cholecalciferol (Vitamin D) 1,000 intlu PO DAILY [facility] Last Admin: 02/23/18 09:36 Dose: 1,000 intlu Cyanocobalamin (Vitamin B12 1000 Mcg Tab) 1,000 mcg PO BID [facility] Last Admin: 02/22/18 17:39 Dose: 1,000 mcg Furosemide (Lasix) 80 mg PO BID [facility] Last Admin: 02/22/18 09:19 Dose: 80 mg Heparin Sodium (Porcine) (Heparin) 5,000 units SC Q12 [facility] PRN Reason: Protocol Last Admin: 02/23/18 09:35 Dose: 5,000 units Ceftaroline Fosamil 200 mg/ (Sodium Chloride) 50 mls @ 50 mls/hr IVPB Q12H [facility] PRN Reason: Protocol Stop: 03/01/18 14:01 Last Admin: 02/23/18 01:29 Dose: 50 mls/hr Insulin Human Regular (Humulin R Med) 0 units SC ACHS [facility] PRN Reason: Protocol Last Admin: 02/23/18 09:37 Dose: 1 units Isosorbide Dinitrate (Isordil) 60 mg PO DAILY [facility] Last Admin: 02/23/18 10:07 Dose: 60 mg Metolazone (Zaroxolyn) 2.5 mg PO DAILY [facility] Last Admin: 02/22/18 09:20 Dose: 2.5 mg Metoprolol Tartrate (Lopressor) 100 mg PO BID [facility] Last Admin: 02/23/18 09:36 Dose: 100 mg Multivitamins (Thera Tab) 1 tab PO DAILY [facility] Last Admin: 02/23/18 10:07 Dose: 1 tab Mupirocin (Bactroban Ointment) 1 gm TOP DAILY [facility] Last Admin: 02/23/18 09:35 Dose: 1 applic Mupirocin (Bactroban Ointment) 1 gm TOP BID [facility] Last Admin: 02/22/18 17:29 Dose: Not Given Magnesium Glycinate [Mag Glycinate] 500 Mg (Home Med) 500 mg PO DAILY [facility] Last Admin: 02/23/18 09:50 Dose: Not Given Pantoprazole Sodium (Protonix Ec Tab) 40 mg PO 0600 [facility] Last Admin: 02/23/18 06:05 Dose: 40 mg Potassium Chloride (Klor-Con 10) 10 meq PO BRK [facility] Last Admin: 02/23/18 09:36 Dose: 10 meq Primidone (Mysoline) 50 mg PO HS [facility] Last Admin: 02/22/18 21:50 Dose: 50 mg - Labs Labs: 02/23/18 06:40 02/23/18 06:40 PT 12.6 SECONDS (9.4-12.5) H 02/21/18 19:55 INR 1.10 (0.93-1.08) H 02/21/18 19:55 APTT 41.8 Seconds (25.1-36.5) H 02/21/18 19:55 Attending/Attestation - Attestation I have personally seen and examined this patient.: Yes I have fully participated in the care of the patient.: Yes I have reviewed all pertinent clinical information, including history, physical exam and plan: Yes Notes (Text): 02/23/18 13:52 71 year old female with past medical history of CAD s/p CABG, CHF s/p PPM, diabetes, CKD and AAA s/p repair who presented with left second digit foot infection. Foot xray was reviewed. CT lower extremity is suspicous for osteomyelitis. LE ultasound was reviewed as well. Continue with iv antibiotics. ID and podiatry are followeing the patient. Cardiology evaluation was appreciated for cardiac risk stratification for possible surgery on Sunday. She is also being seen by nephrology for acute on chronic kidney disease which is improving. Hermila Gusman MD Hospitalist.
--- NOTE | 2018-02-23 13:41 | CP.PCM.PN ---
Subjective - Date & Time of Evaluation Date of Evaluation: 02/23/18 Time of Evaluation: 12:35 - Subjective Subjective: Afebrile, not in distress. Objective - Vital Signs/Intake and Output Vital Signs (last 24 hours): Temp Pulse Resp BP Pulse Ox 98.0 F 94 H 20 150/90 98 02/23/18 06:00 02/23/18 06:00 02/23/18 06:00 02/23/18 06:00 02/23/18 06:00 Intake and Output: 02/23/18 02/23/18 06:59 18:59 Intake Total 1320 Balance 1320 - Medications Medications: Current Medications Acetaminophen (Tylenol 325mg Tab) 650 mg PO Q6H PRN PRN Reason: Pain, moderate (4-7) Last Admin: 02/23/18 06:05 Dose: 650 mg Ascorbic Acid (Vitamin C 500 Mg Tab) 500 mg PO DAILY [facility] Last Admin: 02/23/18 09:36 Dose: 500 mg Aspirin (Ecotrin) 81 mg PO DAILY [facility] Last Admin: 02/23/18 09:36 Dose: 81 mg Atorvastatin Calcium (Lipitor) 10 mg PO DIN [facility] Last Admin: 02/22/18 17:38 Dose: 10 mg Cholecalciferol (Vitamin D) 1,000 intlu PO DAILY [facility] Last Admin: 02/23/18 09:36 Dose: 1,000 intlu Cyanocobalamin (Vitamin B12 1000 Mcg Tab) 1,000 mcg PO BID [facility] Last Admin: 02/22/18 17:39 Dose: 1,000 mcg Furosemide (Lasix) 80 mg PO BID [facility] Last Admin: 02/22/18 09:19 Dose: 80 mg Heparin Sodium (Porcine) (Heparin) 5,000 units SC Q12 [facility] PRN Reason: Protocol Last Admin: 02/23/18 09:35 Dose: 5,000 units Ceftaroline Fosamil 200 mg/ (Sodium Chloride) 50 mls @ 50 mls/hr IVPB Q12H [facility] PRN Reason: Protocol Stop: 03/01/18 14:01 Last Admin: 02/23/18 01:29 Dose: 50 mls/hr Insulin Human Regular (Humulin R Med) 0 units SC ACHS [facility] PRN Reason: Protocol Last Admin: 02/23/18 09:37 Dose: 1 units Isosorbide Dinitrate (Isordil) 60 mg PO DAILY [facility] Last Admin: 02/23/18 10:07 Dose: 60 mg Metolazone (Zaroxolyn) 2.5 mg PO DAILY [facility] Last Admin: 02/22/18 09:20 Dose: 2.5 mg Metoprolol Tartrate (Lopressor) 100 mg PO BID [facility] Last Admin: 02/23/18 09:36 Dose: 100 mg Multivitamins (Thera Tab) 1 tab PO DAILY [facility] Last Admin: 02/23/18 10:07 Dose: 1 tab Mupirocin (Bactroban Ointment) 1 gm TOP DAILY [facility] Last Admin: 02/23/18 09:35 Dose: 1 applic Mupirocin (Bactroban Ointment) 1 gm TOP BID [facility] Last Admin: 02/22/18 17:29 Dose: Not Given Magnesium Glycinate [Mag Glycinate] 500 Mg (Home Med) 500 mg PO DAILY [facility] Last Admin: 02/23/18 09:50 Dose: Not Given Pantoprazole Sodium (Protonix Ec Tab) 40 mg PO 0600 [facility] Last Admin: 02/23/18 06:05 Dose: 40 mg Potassium Chloride (Klor-Con 10) 10 meq PO BRK [facility] Last Admin: 02/23/18 09:36 Dose: 10 meq Primidone (Mysoline) 50 mg PO HS [facility] Last Admin: 02/22/18 21:50 Dose: 50 mg - Labs Labs: 02/23/18 06:40 02/23/18 06:40 PT 12.6 SECONDS (9.4-12.5) H 02/21/18 19:55 INR 1.10 (0.93-1.08) H 02/21/18 19:55 APTT 41.8 Seconds (25.1-36.5) H 02/21/18 19:55 - Constitutional Appears: Chronically Ill - Head Exam Head Exam: NORMAL INSPECTION - Neck Exam Neck Exam: absent: Meningismus - Respiratory Exam Respiratory Exam: Decreased Breath Sounds - Cardiovascular Exam Cardiovascular Exam: +S1, +S2 - GI/Abdominal Exam GI & Abdominal Exam: Soft. absent: Tenderness Assessment and Plan - Assessment and Plan (Free Text) Plan: Assessment Consider left foot 2nd digit skin and skin structure infection R/O osteomyelitis CAD S/P CABG abdominal aortic aneurysm S/P repair S/P cholecystectomy S/P pacemaker placement DM S/P left toe amputation Plan continue Teflaro pending blood and wound cx; follow up duplex U/S of lower extremities to rule out PAD for OR on Sunday and will await OR cx and pathology then
--- NOTE | 2018-02-23 17:49 | CP.PCM.PN ---
Subjective - Date & Time of Evaluation Date of Evaluation: 02/23/18 Time of Evaluation: 11:30 - Subjective Subjective: Patient reports feeling well; no shortness of breath, fevers/chills; tolerating diet well; no leg swelling; Objective - Vital Signs/Intake and Output Vital Signs (last 24 hours): Temp Pulse Resp BP Pulse Ox 98.0 F 73 20 134/77 99 02/23/18 14:00 02/23/18 14:00 02/23/18 14:00 02/23/18 14:00 02/23/18 14:00 Intake and Output: 02/23/18 02/23/18 06:59 18:59 Intake Total 1320 780 Balance 1320 780 - Medications Medications: Current Medications Acetaminophen (Tylenol 325mg Tab) 650 mg PO Q6H PRN PRN Reason: Pain, moderate (4-7) Last Admin: 02/23/18 16:23 Dose: 650 mg Ascorbic Acid (Vitamin C 500 Mg Tab) 500 mg PO DAILY [facility] Last Admin: 02/23/18 09:36 Dose: 500 mg Aspirin (Ecotrin) 81 mg PO DAILY [facility] Last Admin: 02/23/18 09:36 Dose: 81 mg Atorvastatin Calcium (Lipitor) 10 mg PO DIN [facility] Last Admin: 02/23/18 16:23 Dose: 10 mg Cholecalciferol (Vitamin D) 1,000 intlu PO DAILY [facility] Last Admin: 02/23/18 09:36 Dose: 1,000 intlu Cyanocobalamin (Vitamin B12 1000 Mcg Tab) 1,000 mcg PO BID [facility] Last Admin: 02/23/18 16:46 Dose: 1,000 mcg Furosemide (Lasix) 80 mg PO BID [facility] Last Admin: 02/22/18 09:19 Dose: 80 mg Heparin Sodium (Porcine) (Heparin) 5,000 units SC Q12 [facility] PRN Reason: Protocol Last Admin: 02/23/18 09:35 Dose: 5,000 units Ceftaroline Fosamil 200 mg/ (Sodium Chloride) 50 mls @ 50 mls/hr IVPB Q12H [facility] PRN Reason: Protocol Stop: 03/01/18 14:01 Last Admin: 02/23/18 15:19 Dose: 50 mls/hr Insulin Human Regular (Humulin R Med) 0 units SC ACHS [facility] PRN Reason: Protocol Last Admin: 02/23/18 16:23 Dose: 1 units Isosorbide Dinitrate (Isordil) 60 mg PO DAILY [facility] Last Admin: 02/23/18 10:07 Dose: 60 mg Metolazone (Zaroxolyn) 2.5 mg PO DAILY [facility] Last Admin: 02/22/18 09:20 Dose: 2.5 mg Metoprolol Tartrate (Lopressor) 100 mg PO BID [facility] Last Admin: 02/23/18 09:36 Dose: 100 mg Multivitamins (Thera Tab) 1 tab PO DAILY [facility] Last Admin: 02/23/18 10:07 Dose: 1 tab Mupirocin (Bactroban Ointment) 1 gm TOP DAILY [facility] Last Admin: 02/23/18 09:35 Dose: 1 applic Mupirocin (Bactroban Ointment) 1 gm TOP BID [facility] Last Admin: 02/22/18 17:29 Dose: Not Given Magnesium Glycinate [Mag Glycinate] 500 Mg (Home Med) 500 mg PO DAILY [facility] Last Admin: 02/23/18 09:50 Dose: Not Given Pantoprazole Sodium (Protonix Ec Tab) 40 mg PO 0600 [facility] Last Admin: 02/23/18 06:05 Dose: 40 mg Potassium Chloride (Klor-Con 10) 10 meq PO BRK [facility] Last Admin: 02/23/18 09:36 Dose: 10 meq Primidone (Mysoline) 50 mg PO HS [facility] Last Admin: 02/22/18 21:50 Dose: 50 mg - Labs Labs: 02/23/18 06:40 02/23/18 06:40 PT 12.6 SECONDS (9.4-12.5) H 02/21/18 19:55 INR 1.10 (0.93-1.08) H 02/21/18 19:55 APTT 41.8 Seconds (25.1-36.5) H 02/21/18 19:55 - Constitutional Appears: Non-toxic, No Acute Distress - Eye Exam Eye Exam: Scleral icterus - ENT Exam ENT Exam: Mucous Membranes Moist - Respiratory Exam Respiratory Exam: Clear to Ausculation Bilateral. absent: Respiratory Distress - Cardiovascular Exam Cardiovascular Exam: RRR, +S1, +S2. absent: Gallop, JVD - GI/Abdominal Exam GI & Abdominal Exam: Soft. absent: Distended, Tenderness - Extremities Exam Additional comments: minimal lower leg edema; - Neurological Exam Neurological Exam: Alert, Awake - Psychiatric Exam Psychiatric exam: Normal Mood. absent: Agitated - Skin Skin Exam: Warm. absent: Cyanosis Assessment and Plan (1) VALE (acute kidney injury) Assessment & Plan: VALE on CKD IIIB; consistent with pre-renal etiology in the setting of increased ostomy losses and being on aggressive diuretic regimen; renal function improved with volume replenishment; -will continue to hold diuretics and monitor renal function; holding further IVF to avoid CHF exacerbation; Status: Acute (2) CKD (chronic kidney disease) stage 3, GFR 30-59 ml/min Assessment & Plan: Proteinuric kidney disease likely due to DM; complements normal; awaiting 24 hr urine collection to assess proteinuria; Status: Chronic (3) Proteinuria Assessment & Plan: Nephrotic range proteinuria at one point; no indication of nephrotic syndrome currently; not on BRENT blockade; will make recommendations after assessing degree of proteinuria; Status: Chronic (4) CHF (congestive heart failure) Assessment & Plan: Currently euvolemic by exam/symptoms; holding diuretics as above; continue B- blockers; Status: Chronic (5) Toe infection Assessment & Plan: Currently on ceftaroline 200 mg q12h, dosed for CrCl < 15 ml/min; may need to increase dose as renal function improves; Status: Acute
[2018-02-24] MEDS: Insulin Reg-MEDIUM-Coverage SC SCH ×5 (01:28→22:00)
[2018-02-24 02:12] LABS: PH,URINE 5.5 (4.7-8.0); URINE BILIRUBIN NEGATIVE (NEGATIVE); URINE BLOOD SMALL (NEGATIVE); URINE GLUCOSE (UA) NEGATIVE (NEGATIVE); URINE LEUKOCYTE ESTERASE TRACE Leu/uL (NEGATIVE); URINE PROTEIN >=300 mg/dL (<30 mg/dL); URINE UROBILINOGEN 0.2 E.U./dL (<1 E.U./dL)
[2018-02-24 02:57] LABS: URINE APPEARANCE SLIGHT-CLOUDY (CLEAR)
[2018-02-24 02:59] LABS: URINE AMORPHOUS SEDIMENT SMALL; URINE BACTERIA TRACE (NEG); URINE RBC 15 - 20 /hpf (0-2)
[2018-02-24 03:06] LABS: CREATININE,RANDOM URINE 62 mg/dL
[2018-02-24] MEDS: Pantoprazole 40 mg EC Tab PO SCH (06:06)
[2018-02-24 07:49] LABS: BASO # 0.01 K/mm3 (0.0-2.0); BASO % 0.1 % (0.0-3.0); EOS # 0.3 (0.0-0.7); EOS % 4.4 % (1.5-5.0); GRAN # 5.61 (1.4-6.5); GRAN % 77.4 % (50.0-68.0); LYMPH # 0.9 (1.2-3.4); LYMPH % 12.6 % (22.0-35.0); MEAN CELL VOLUME 95.3 fl (80.0-105.0); MEAN CORPUSCULAR HEMOGLOBIN 30.2 pg (25.0-35.0); MEAN CORPUSCULAR HGB CONC 31.7 g/dl (31.0-37.0); MEAN PLATELET VOLUME 9.5 fl (7.0-11.0); MONO # 0.4 (0.1-0.6); MONO % 5.5 % (1.0-6.0); RBC 3.64 10^6/uL (3.5-6.1); RED CELL DISTRIBUTION WIDTH 12.9 % (11.5-14.5); WHITE BLOOD COUNT 7.3 10^3/ul (4.5-11.0)
[2018-02-24 07:51] LABS: ALB/GLOB RATIO 1.2 (1.1-1.8); ALBUMIN 3.6 g/dL (3.0-4.8)
[2018-02-24] MEDS: Potassium Chloride 10 mEq ER Tab PO SCH (08:13)
[2018-02-24] MEDS: metOLazone 2.5 MG TAB PO SCH (10:10)
[2018-02-24] MEDS: Cholecalciferol 1,000 INTLU TAB PO SCH (10:10)
[2018-02-24] MEDS: Multivitamin Therapeutic Tab PO SCH (10:10)
[2018-02-24] MEDS: MAGNESIUM GLYCINATE PO SCH (10:14)
--- NOTE | 2018-02-24 10:37 | CP.PCM.PN ---
<Bri Morgan - Last Filed: 02/24/18 11:56> Subjective - Date & Time of Evaluation Date of Evaluation: 02/24/18 Time of Evaluation: 10:35 - Subjective Subjective: Internal Medicine Progress Note: Patient seen and examined at bedside. Per nursing no acute events overnight. Patient is doing well, offers no complaints at this time. Denies headaches, dizziness, cp, palpitations, sob, abdominal pain, urinary symptoms. Possibly going to the OR tomorrow for left 2nd digit debridement/amputation. Objective - Vital Signs/Intake and Output Vital Signs (last 24 hours): Temp Pulse Resp BP Pulse Ox 98.1 F 91 H 20 115/90 97 02/24/18 06:00 02/24/18 10:11 02/24/18 06:00 02/24/18 10:11 02/24/18 06:00 Intake and Output: 02/24/18 02/24/18 06:59 18:59 Intake Total 600 180 Balance 600 180 - Medications Medications: Current Medications Acetaminophen (Tylenol 325mg Tab) 650 mg PO Q6H PRN PRN Reason: Pain, moderate (4-7) Last Admin: 02/24/18 08:06 Dose: 650 mg Ascorbic Acid (Vitamin C 500 Mg Tab) 500 mg PO DAILY [facility] Last Admin: 02/24/18 10:20 Dose: 500 mg Aspirin (Ecotrin) 81 mg PO DAILY [facility] Last Admin: 02/24/18 10:10 Dose: 81 mg Atorvastatin Calcium (Lipitor) 10 mg PO DIN [facility] Last Admin: 02/23/18 16:23 Dose: 10 mg Cholecalciferol (Vitamin D) 1,000 intlu PO DAILY [facility] Last Admin: 02/24/18 10:10 Dose: 1,000 intlu Cyanocobalamin (Vitamin B12 1000 Mcg Tab) 1,000 mcg PO BID [facility] Last Admin: 02/24/18 10:09 Dose: 1,000 mcg Furosemide (Lasix) 80 mg PO BID [facility] Last Admin: 02/22/18 09:19 Dose: 80 mg Heparin Sodium (Porcine) (Heparin) 5,000 units SC Q12 [facility] PRN Reason: Protocol Last Admin: 02/24/18 10:11 Dose: 5,000 units Ceftaroline Fosamil 200 mg/ (Sodium Chloride) 50 mls @ 50 mls/hr IVPB Q12H [facility] PRN Reason: Protocol Stop: 05/04/18 14:01 Last Admin: 02/24/18 02:11 Dose: 50 mls/hr Insulin Human Regular (Humulin R Med) 0 units SC ACHS [facility] PRN Reason: Protocol Last Admin: 02/24/18 08:13 Dose: 1 units Isosorbide Dinitrate (Isordil) 60 mg PO DAILY [facility] Last Admin: 02/24/18 10:11 Dose: 60 mg Metolazone (Zaroxolyn) 2.5 mg PO DAILY [facility] Last Admin: 02/24/18 10:10 Dose: 2.5 mg Metoprolol Tartrate (Lopressor) 100 mg PO BID [facility] Last Admin: 02/24/18 10:11 Dose: 100 mg Multivitamins (Thera Tab) 1 tab PO DAILY [facility] Last Admin: 02/24/18 10:10 Dose: 1 tab Mupirocin (Bactroban Ointment) 1 gm TOP DAILY [facility] Last Admin: 02/24/18 10:21 Dose: 1 applic Mupirocin (Bactroban Ointment) 1 gm TOP BID [facility] Last Admin: 02/22/18 17:29 Dose: Not Given Magnesium Glycinate [Mag Glycinate] 500 Mg (Home Med) 500 mg PO DAILY [facility] Last Admin: 02/24/18 10:14 Dose: Not Given Pantoprazole Sodium (Protonix Ec Tab) 40 mg PO 0600 [facility] Last Admin: 02/24/18 06:06 Dose: Not Given Potassium Chloride (Klor-Con 10) 10 meq PO BRK [facility] Last Admin: 02/24/18 08:13 Dose: 10 meq Primidone (Mysoline) 50 mg PO HS [facility] Last Admin: 02/23/18 21:46 Dose: 50 mg - Labs Labs: 02/24/18 07:00 02/24/18 07:00 PT 12.6 SECONDS (9.4-12.5) H 02/21/18 19:55 INR 1.10 (0.93-1.08) H 02/21/18 19:55 APTT 41.8 Seconds (25.1-36.5) H 02/21/18 19:55 - Additional Findings Additional findings: - Additional Findings Additional findings: - Constitutional Appears: Well, No Acute Distress - Head Exam Head Exam: ATRAUMATIC, NORMAL INSPECTION, NORMOCEPHALIC - Eye Exam Eye Exam: EOMI, Normal appearance Pupil Exam: NORMAL ACCOMODATION - ENT Exam ENT Exam: Mucous Membranes Moist - Neck Exam Neck Exam: Full ROM - Respiratory Exam Respiratory Exam: Clear to Ausculation Bilateral, NORMAL BREATHING PATTERN. absent: Rales, Rhonchi, Wheezes - Cardiovascular Exam Cardiovascular Exam: REGULAR RHYTHM, +S1, +S2 - GI/Abdominal Exam GI & Abdominal Exam: Soft, Normal Bowel Sounds, +Ileostomy. absent: Guarding, Rigid, Tenderness - Extremities Exam Additional comments: Left foot exam: dime sized ulceration on plantar surface on left foot; small ulceration on left toe Chronic venous stasis skin changes bilaterally - Back Exam Back Exam: NORMAL INSPECTION - Neurological Exam Neurological Exam: Alert, Awake, Oriented x3 - Psychiatric Exam Psychiatric exam: Normal Affect, Normal Mood - Skin Skin Exam: Normal Color, Warm Assessment and Plan - Assessment and Plan (Free Text) Assessment: Patient is a 71 yo female with history of CAD s/p CABG, CHF s/p pacemaker placement, DM type 2, CKD, AAA s/p repair that presents for medical clearance for her left second digit foot infection. Patient has no complaints. Left Toe Osteomyeolitis/ulceration -Stable, afebrile -No leukocytosis -Foot Xray shows soft tissue swelling without acute articular or osseous abnormality -Foot CT showed findings suspicious for osteomyelolitis of middle and distal phalanges of second digit -Blood cultures no growth x 48 hours -Patient going to the OR Sunday for left 2nd digit debridement/amputation -NPO after breakfast tomorrow -Antibiotics: Teflaro 200mg q12H -Podiatry consult: Dr. Cortés -Cardiology: Patient increased risk for any anesthesia, cardiac status is optimum for the OR -Lower extremity US showed mildly normal Right GORDY at rest; distal right SFA, popliteal, tibial disease History CHF -Patient not in exacerbation -Will hold diuretics at this time -Monitor I's and O's, Daily weight -Last stress test showed fixed, apical inferior, inferolateral anterolateral defects, severe LV dysfunction -Last Echo showed LVEF 33%, moderately dilated LV, markedly dilated LA/RA -Cardiology on consult, Dr Vidales, help appreciated Hyperkalemia -Potassium 5.1 today -Held oral potassium supplements -Repeat BMP this afternoon DM type 2 -Humalog Med dose ISS -Accuchecks ACHS -Hga1c 6.5 -Consistent carb/heart healthy diet Acute on Chronic Kidney Disease -BUN/Cr 41/2.5, improving -Baseline CR 1.5-2.0 -Renal workup in progress -Hold diuresis at this time -Monitor I/Os, daily weights -Nephrology on consult, help appreciated CAD -Continue Metoprolol, isosorbide, ASA 81 -Continue Lipitor Osteoarthritis -Tylenol 650mg PO q6H prn GI/DVT prophylaxis -Protonix/Heparin Plan discussed with Dr Gusman <Hermila Gusman - Last Filed: 02/24/18 12:24> Objective - Vital Signs/Intake and Output Vital Signs (last 24 hours): Temp Pulse Resp BP Pulse Ox 98.1 F 91 H 20 115/90 97 02/24/18 06:00 02/24/18 10:11 02/24/18 06:00 02/24/18 10:11 02/24/18 06:00 Intake and Output: 02/24/18 02/24/18 06:59 18:59 Intake Total 600 180 Balance 600 180 - Medications Medications: Current Medications Acetaminophen (Tylenol 325mg Tab) 650 mg PO Q6H PRN PRN Reason: Pain, moderate (4-7) Last Admin: 02/24/18 08:06 Dose: 650 mg Ascorbic Acid (Vitamin C 500 Mg Tab) 500 mg PO DAILY [facility] Last Admin: 02/24/18 10:20 Dose: 500 mg Aspirin (Ecotrin) 81 mg PO DAILY [facility] Last Admin: 02/24/18 10:10 Dose: 81 mg Atorvastatin Calcium (Lipitor) 10 mg PO DIN [facility] Last Admin: 02/23/18 16:23 Dose: 10 mg Cholecalciferol (Vitamin D) 1,000 intlu PO DAILY [facility] Last Admin: 02/24/18 10:10 Dose: 1,000 intlu Cyanocobalamin (Vitamin B12 1000 Mcg Tab) 1,000 mcg PO BID [facility] Last Admin: 02/24/18 10:09 Dose: 1,000 mcg Furosemide (Lasix) 80 mg PO BID [facility] Last Admin: 02/22/18 09:19 Dose: 80 mg Heparin Sodium (Porcine) (Heparin) 5,000 units SC Q12 [facility] PRN Reason: Protocol Last Admin: 02/24/18 10:11 Dose: 5,000 units Ceftaroline Fosamil 200 mg/ (Sodium Chloride) 50 mls @ 50 mls/hr IVPB Q12H [facility] PRN Reason: Protocol Stop: 03/01/18 14:01 Last Admin: 02/24/18 02:11 Dose: 50 mls/hr Insulin Human Regular (Humulin R Med) 0 units SC ACHS [facility] PRN Reason: Protocol Last Admin: 02/24/18 08:13 Dose: 1 units Isosorbide Dinitrate (Isordil) 60 mg PO DAILY [facility] Last Admin: 02/24/18 10:11 Dose: 60 mg Metolazone (Zaroxolyn) 2.5 mg PO DAILY [facility] Last Admin: 02/24/18 10:10 Dose: 2.5 mg Metoprolol Tartrate (Lopressor) 100 mg PO BID [facility] Last Admin: 02/24/18 10:11 Dose: 100 mg Multivitamins (Thera Tab) 1 tab PO DAILY [facility] Last Admin: 02/24/18 10:10 Dose: 1 tab Mupirocin (Bactroban Ointment) 1 gm TOP DAILY [facility] Last Admin: 02/24/18 10:21 Dose: 1 applic Mupirocin (Bactroban Ointment) 1 gm TOP BID [facility] Last Admin: 02/22/18 17:29 Dose: Not Given Magnesium Glycinate [Mag Glycinate] 500 Mg (Home Med) 500 mg PO DAILY [facility] Last Admin: 02/24/18 10:14 Dose: Not Given Pantoprazole Sodium (Protonix Ec Tab) 40 mg PO 0600 [facility] Last Admin: 02/24/18 06:06 Dose: Not Given Potassium Chloride (Klor-Con 10) 10 meq PO BRK [facility] Last Admin: 02/24/18 08:13 Dose: 10 meq Primidone (Mysoline) 50 mg PO HS [facility] Last Admin: 02/23/18 21:46 Dose: 50 mg - Labs Labs: 02/24/18 07:00 02/24/18 07:00 PT 12.6 SECONDS (9.4-12.5) H 02/21/18 19:55 INR 1.10 (0.93-1.08) H 02/21/18 19:55 APTT 41.8 Seconds (25.1-36.5) H 02/21/18 19:55 Attending/Attestation - Attestation I have personally seen and examined this patient.: Yes I have fully participated in the care of the patient.: Yes I have reviewed all pertinent clinical information, including history, physical exam and plan: Yes Notes (Text): 02/24/18 12:23 71 year old female with past medical history of CAD s/p CABG, CHF s/p PPM, diabetes, CKD and AAA s/p repair who presented with left second digit foot infection. Foot xray was reviewed. CT lower extremity is suspicious for osteomyelitis. LE ultasound was reviewed as well. Continue with iv antibiotics. ID and podiatry are following the patient. Plan is for OR tomorrow per podiatry. Cardiology evaluation was appreciated for cardiac risk stratification for above procedure. She is also being seen by nephrology for acute on chronic kidney disease which is improving. Hermila Gusman MD Hospitalist.
--- NOTE | 2018-02-24 11:30 | CP.PCM.PN ---
Subjective - Date & Time of Evaluation Date of Evaluation: 02/24/18 Time of Evaluation: 11:27 - Subjective Subjective: Podiatry progress note: Dr. Cortés 71 year old female patient seen and evaluated for left foot 2nd digit and submetatarsal head one wound. Patient reports that she was seen by Dr. Cortés recently who advised her to get medical clearance prior to 2nd digit procedure and sent her to PCP. Patient denies of having any pain today. Denies of having any recent F/N/V/C/SOB/CP. Patient denies of having any other pedal complains. Dressing to left foot remains c/d/i. Objective - Vital Signs/Intake and Output Vital Signs (last 24 hours): Temp Pulse Resp BP Pulse Ox 98.1 F 91 H 20 115/90 97 02/24/18 06:00 02/24/18 10:11 02/24/18 06:00 02/24/18 10:11 02/24/18 06:00 Intake and Output: 02/24/18 02/24/18 06:59 18:59 Intake Total 600 180 Balance 600 180 - Medications Medications: Current Medications Acetaminophen (Tylenol 325mg Tab) 650 mg PO Q6H PRN PRN Reason: Pain, moderate (4-7) Last Admin: 02/24/18 08:06 Dose: 650 mg Ascorbic Acid (Vitamin C 500 Mg Tab) 500 mg PO DAILY [facility] Last Admin: 02/24/18 10:20 Dose: 500 mg Aspirin (Ecotrin) 81 mg PO DAILY [facility] Last Admin: 02/24/18 10:10 Dose: 81 mg Atorvastatin Calcium (Lipitor) 10 mg PO DIN [facility] Last Admin: 02/23/18 16:23 Dose: 10 mg Cholecalciferol (Vitamin D) 1,000 intlu PO DAILY [facility] Last Admin: 02/24/18 10:10 Dose: 1,000 intlu Cyanocobalamin (Vitamin B12 1000 Mcg Tab) 1,000 mcg PO BID [facility] Last Admin: 02/24/18 10:09 Dose: 1,000 mcg Furosemide (Lasix) 80 mg PO BID [facility] Last Admin: 02/22/18 09:19 Dose: 80 mg Heparin Sodium (Porcine) (Heparin) 5,000 units SC Q12 [facility] PRN Reason: Protocol Last Admin: 02/24/18 10:11 Dose: 5,000 units Ceftaroline Fosamil 200 mg/ (Sodium Chloride) 50 mls @ 50 mls/hr IVPB Q12H [facility] PRN Reason: Protocol Stop: 03/01/18 14:01 Last Admin: 02/24/18 02:11 Dose: 50 mls/hr Insulin Human Regular (Humulin R Med) 0 units SC ACHS [facility] PRN Reason: Protocol Last Admin: 02/24/18 08:13 Dose: 1 units Isosorbide Dinitrate (Isordil) 60 mg PO DAILY [facility] Last Admin: 02/24/18 10:11 Dose: 60 mg Metolazone (Zaroxolyn) 2.5 mg PO DAILY [facility] Last Admin: 02/24/18 10:10 Dose: 2.5 mg Metoprolol Tartrate (Lopressor) 100 mg PO BID [facility] Last Admin: 02/24/18 10:11 Dose: 100 mg Multivitamins (Thera Tab) 1 tab PO DAILY [facility] Last Admin: 02/24/18 10:10 Dose: 1 tab Mupirocin (Bactroban Ointment) 1 gm TOP DAILY [facility] Last Admin: 02/24/18 10:21 Dose: 1 applic Mupirocin (Bactroban Ointment) 1 gm TOP BID [facility] Last Admin: 02/22/18 17:29 Dose: Not Given Magnesium Glycinate [Mag Glycinate] 500 Mg (Home Med) 500 mg PO DAILY [facility] Last Admin: 02/24/18 10:14 Dose: Not Given Pantoprazole Sodium (Protonix Ec Tab) 40 mg PO 0600 [facility] Last Admin: 02/24/18 06:06 Dose: Not Given Potassium Chloride (Klor-Con 10) 10 meq PO BRK [facility] Last Admin: 02/24/18 08:13 Dose: 10 meq Primidone (Mysoline) 50 mg PO HS [facility] Last Admin: 02/23/18 21:46 Dose: 50 mg - Labs Labs: 02/24/18 07:00 02/24/18 07:00 PT 12.6 SECONDS (9.4-12.5) H 02/21/18 19:55 INR 1.10 (0.93-1.08) H 02/21/18 19:55 APTT 41.8 Seconds (25.1-36.5) H 02/21/18 19:55 - Constitutional Appears: Well, Non-toxic, No Acute Distress - Extremities Exam Additional comments: Left LE focused exam VASC: DP/PT pulses are palpable 2/4, Cap refill time: < 3 sec to all digits, Temp gradient is warm to warm from proximal to distal, 1+ pitting edema noted on the distal medial aspect of the leg and dorsum of the left foot DERM: Circular wound measuring approx 1.5 cm x 1.5 cm x 0.1 cm noted submetatarsal head 1, no tunneling, no undermining, no active drainage, no malodor, no probe to bone, no erythema, no clinical suspicion of active infection; Wound on the dorsal aspect of the 2nd digit with no drainage, no tunneling, no undermining, no probe to bone, periwound maceration with increase in erythema and edema noted on the digit NEURO: Protective sensation grossly diminished ORTHO: Hallux amputation on the left foot, no pain on palpation of the wound - Neurological Exam Neurological Exam: Alert, Awake, Oriented x3 - Psychiatric Exam Psychiatric exam: Normal Affect, Normal Mood Assessment and Plan - Assessment and Plan (Free Text) Assessment: 72 year old female with cellulitic changes secondary to left 2nd digit and plantar sub-metatarsal head 1 wound Plan: Patient seen and evaluated Discussed plan with attending Dr. Cortés Labs, vitals and charts reviewed - afebrile, WBC 7.3 Wound cleaned using sterile saline and dressing applied using bactroban,DSD Unable to obtain MRI to r/o OM due to pacemaker - CT scan ordered: OM of middle and distal phalanx of 2nd digit left foot Plan for wound debridement/ 2nd digit amputation of the left foot on Sunday f/u medical optimization NPO after breakfast tomorrow Continue IV abx as per ID Surgical shoe ordered Podiatry to follow patient while in-house
[2018-02-24] MEDS ORDERED: Insulin Lispro 1 UNITS/0.01 ML SC STA (15:30)
[2018-02-24] MEDS ORDERED: Sod Polystyrene Sulf 15 gm/60 ml Susp PO ONE (15:30)
[2018-02-24] MEDS ORDERED: Dextrose 50% SYRINGE Inj (50 ml) IVP ONE ×2 (15:31→22:52)
[2018-02-24] MEDS ORDERED: Sodium Chloride 0.9% 250 ML IV SCH (18:45)
--- NOTE | 2018-02-24 19:19 | CP.PCM.PN ---
Subjective - Date & Time of Evaluation Date of Evaluation: 02/24/18 Time of Evaluation: 19:00 - Subjective Subjective: Patient denies sob; tolerating diet; received kayexalate earlier today for hyperkalemia; denies ever having issues with high K (get K supplementation at home); Objective - Vital Signs/Intake and Output Vital Signs (last 24 hours): Temp Pulse Resp BP Pulse Ox 97.7 F 81 20 150/81 100 02/24/18 14:00 02/24/18 17:25 02/24/18 14:00 02/24/18 18:59 02/24/18 14:00 Intake and Output: 02/24/18 02/25/18 18:59 06:59 Intake Total 1380 Balance 1380 - Medications Medications: Current Medications Acetaminophen (Tylenol 325mg Tab) 650 mg PO Q6H PRN PRN Reason: Pain, moderate (4-7) Last Admin: 02/24/18 16:30 Dose: 650 mg Ascorbic Acid (Vitamin C 500 Mg Tab) 500 mg PO DAILY [facility] Last Admin: 02/24/18 10:20 Dose: 500 mg Aspirin (Ecotrin) 81 mg PO DAILY [facility] Last Admin: 02/24/18 10:10 Dose: 81 mg Atorvastatin Calcium (Lipitor) 10 mg PO DIN [facility] Last Admin: 02/24/18 17:25 Dose: 10 mg Cholecalciferol (Vitamin D) 1,000 intlu PO DAILY [facility] Last Admin: 02/24/18 10:10 Dose: 1,000 intlu Cyanocobalamin (Vitamin B12 1000 Mcg Tab) 1,000 mcg PO BID [facility] Last Admin: 02/24/18 17:25 Dose: 1,000 mcg Furosemide (Lasix) 80 mg PO BID [facility] Last Admin: 02/24/18 17:26 Dose: Not Given Heparin Sodium (Porcine) (Heparin) 5,000 units SC Q12 [facility] PRN Reason: Protocol Last Admin: 02/24/18 10:11 Dose: 5,000 units Ceftaroline Fosamil 200 mg/ (Sodium Chloride) 50 mls @ 50 mls/hr IVPB Q12H [facility] PRN Reason: Protocol Stop: 03/01/18 14:01 Last Admin: 02/24/18 16:25 Dose: 50 mls/hr Sodium Chloride (Sodium Chloride 0.9%) 250 mls @ 60 mls/hr IV .Q4H10M [facility] Last Admin: 02/24/18 19:00 Dose: 60 mls/hr Insulin Human Regular (Humulin R Med) 0 units SC ACHS [facility] PRN Reason: Protocol Last Admin: 02/24/18 17:25 Dose: 3 units Isosorbide Dinitrate (Isordil) 60 mg PO DAILY [facility] Last Admin: 02/24/18 10:11 Dose: 60 mg Metolazone (Zaroxolyn) 2.5 mg PO DAILY [facility] Last Admin: 02/24/18 10:10 Dose: 2.5 mg Metoprolol Tartrate (Lopressor) 100 mg PO BID [facility] Last Admin: 02/24/18 17:25 Dose: 100 mg Multivitamins (Thera Tab) 1 tab PO DAILY [facility] Last Admin: 02/24/18 10:10 Dose: 1 tab Mupirocin (Bactroban Ointment) 1 gm TOP DAILY [facility] Last Admin: 02/24/18 10:21 Dose: 1 applic Mupirocin (Bactroban Ointment) 1 gm TOP BID [facility] Last Admin: 02/24/18 17:26 Dose: Not Given Magnesium Glycinate [Mag Glycinate] 500 Mg (Home Med) 500 mg PO DAILY [facility] Last Admin: 02/24/18 10:14 Dose: Not Given Pantoprazole Sodium (Protonix Ec Tab) 40 mg PO 0600 [facility] Last Admin: 02/24/18 06:06 Dose: Not Given Potassium Chloride (Klor-Con 10) 10 meq PO BRK [facility] Last Admin: 02/24/18 08:13 Dose: 10 meq Primidone (Mysoline) 50 mg PO HS [facility] Last Admin: 02/23/18 21:46 Dose: 50 mg Tramadol HCl (Ultram) 50 mg PO TID PRN PRN Reason: Pain, severe (8-10) Last Admin: 02/24/18 18:59 Dose: 50 mg - Labs Labs: 02/24/18 07:00 02/24/18 14:00 PT 12.6 SECONDS (9.4-12.5) H 02/21/18 19:55 INR 1.10 (0.93-1.08) H 02/21/18 19:55 APTT 41.8 Seconds (25.1-36.5) H 04/26/18 19:55 - Constitutional Appears: Non-toxic, No Acute Distress - Eye Exam Eye Exam: absent: Scleral icterus - ENT Exam ENT Exam: Mucous Membranes Moist - Respiratory Exam Respiratory Exam: Clear to Ausculation Bilateral. absent: Respiratory Distress - Cardiovascular Exam Cardiovascular Exam: RRR, +S1, +S2 - GI/Abdominal Exam GI & Abdominal Exam: Soft. absent: Distended, Tenderness - Extremities Exam Additional comments: Mild L lower leg edema; - Neurological Exam Neurological Exam: Alert, Awake - Psychiatric Exam Psychiatric exam: Normal Mood. absent: Agitated - Skin Skin Exam: Warm. absent: Cyanosis Assessment and Plan (1) VALE (acute kidney injury) Assessment & Plan: VALE on CKD IIIB; pre-renal etiology, improving with diuretics being held; diuretics being restarted today due to severe CHF history; should hold diuretics if ostomy output increases signficantly; Status: Acute (2) CKD (chronic kidney disease) stage 3, GFR 30-59 ml/min Assessment & Plan: Proteinuric kidney disease (~2g on 24 hr collection); likely due to DM, still awaiting rest of serologic workup; Status: Chronic (3) Proteinuria Status: Chronic (4) CHF (congestive heart failure) Assessment & Plan: Appears euvolemic, restarting diuretics as above; Status: Chronic (5) Toe infection Assessment & Plan: On ceftaroline 200 mg q12h, consider increasing dose if CrCl remains in 15-30 ml /min range; Status: Acute (6) Hyperkalemia Assessment & Plan: Etiology is unclear with no prior history; no obvious drugs that are contributory (ceftaroline has only rarely been associated with hyperkalemia); Given kayexalate, insulin, and forced diuresis with IVF/IV lasix; K improved; continue to monitor closely; low K diet; Status: Acute
[2018-02-24 20:17] LABS: CREATININE, 24 HOUR URINE 0.68 g/24 h (0.63-2.50)
[2018-02-24 20:35] LABS: ALB/GLOB RATIO 1.2 (1.1-1.8); ALBUMIN 4.3 g/dL (3.0-4.8); CALCIUM 9.3 mg/dL (8.4-10.5)
[2018-02-24] MEDS ORDERED: Dextrose 50% SYRINGE Inj (50 ml) ONE (22:52)
[2018-02-25] MEDS: Pantoprazole 40 mg EC Tab PO SCH (05:20)
[2018-02-25 06:59] LABS: BASO # 0.02 K/mm3 (0.0-2.0); BASO % 0.2 % (0.0-3.0); EOS # 0.4 (0.0-0.7); EOS % 5.1 % (1.5-5.0); GRAN # 6.57 (1.4-6.5); GRAN % 76.3 % (50.0-68.0); HEMOGLOBIN 11.2 g/dL (12.0-16.0); LYMPH # 1.1 (1.2-3.4); LYMPH % 12.6 % (22.0-35.0); MEAN CELL VOLUME 95.4 fl (80.0-105.0); MEAN CORPUSCULAR HEMOGLOBIN 30.4 pg (25.0-35.0); MEAN CORPUSCULAR HGB CONC 31.9 g/dl (31.0-37.0); MEAN PLATELET VOLUME 9.1 fl (7.0-11.0); MONO # 0.5 (0.1-0.6); MONO % 5.8 % (1.0-6.0); RBC 3.68 10^6/uL (3.5-6.1); WHITE BLOOD COUNT 8.6 10^3/ul (4.5-11.0)
[2018-02-25 07:30] LABS: ALB/GLOB RATIO 1.2 (1.1-1.8); ALBUMIN 3.8 g/dL (3.0-4.8); CALCIUM 8.9 mg/dL (8.4-10.5)
[2018-02-25] MEDS: Insulin Reg-MEDIUM-Coverage SC SCH ×4 (08:17→22:03)
[2018-02-25] MEDS ORDERED: Sod Polystyrene Sulf 15 gm/60 ml Susp PO ONE (08:18)
--- NOTE | 2018-02-25 10:20 | CP.PCM.PN ---
Subjective - Date & Time of Evaluation Date of Evaluation: 02/25/18 Time of Evaluation: 10:17 - Subjective Subjective: Podiatry progress note: Dr. Cortés 71 year old female patient seen and evaluated for left foot 2nd digit and submetatarsal head one wound. Patient reports that she was seen by Dr. Cortés earlier this morning. Patient is aware of going to surgery today for amputation of the distal 2nd digit. Denies of having any pain today. Denies of having any recent F/N/V/C/SOB/CP/headache. Denies of any other pedal complains at this time. Objective - Vital Signs/Intake and Output Vital Signs (last 24 hours): Temp Pulse Resp BP Pulse Ox 98 F 87 20 136/82 97 02/25/18 08:20 02/25/18 08:20 02/25/18 08:20 02/25/18 08:20 02/25/18 08:20 Intake and Output: 02/25/18 02/25/18 06:59 18:59 Intake Total 590 Output Total 4 Balance 586 - Medications Medications: Current Medications Acetaminophen (Tylenol 325mg Tab) 650 mg PO Q6H PRN PRN Reason: Pain, moderate (4-7) Last Admin: 02/24/18 16:30 Dose: 650 mg Ascorbic Acid (Vitamin C 500 Mg Tab) 500 mg PO DAILY [facility] Last Admin: 02/24/18 10:20 Dose: 500 mg Aspirin (Ecotrin) 81 mg PO DAILY [facility] Last Admin: 02/24/18 10:10 Dose: 81 mg Atorvastatin Calcium (Lipitor) 10 mg PO DIN [facility] Last Admin: 02/24/18 17:25 Dose: 10 mg Cholecalciferol (Vitamin D) 1,000 intlu PO DAILY [facility] Last Admin: 02/24/18 10:10 Dose: 1,000 intlu Cyanocobalamin (Vitamin B12 1000 Mcg Tab) 1,000 mcg PO BID [facility] Last Admin: 02/24/18 17:25 Dose: 1,000 mcg Furosemide (Lasix) 80 mg PO BID [facility] Last Admin: 02/24/18 17:26 Dose: Not Given Heparin Sodium (Porcine) (Heparin) 5,000 units SC Q12 [facility] PRN Reason: Protocol Last Admin: 02/24/18 10:11 Dose: 5,000 units Ceftaroline Fosamil 200 mg/ (Sodium Chloride) 50 mls @ 50 mls/hr IVPB Q12H [facility] PRN Reason: Protocol Stop: 03/01/18 14:01 Last Admin: 02/25/18 03:30 Dose: 50 mls/hr Sodium Chloride (Sodium Chloride 0.9%) 250 mls @ 60 mls/hr IV .Q4H10M [facility] Last Admin: 02/24/18 19:00 Dose: 60 mls/hr Insulin Human Regular (Humulin R Med) 0 units SC ACHS [facility] PRN Reason: Protocol Last Admin: 02/25/18 08:17 Dose: Not Given Isosorbide Dinitrate (Isordil) 60 mg PO DAILY [facility] Last Admin: 02/24/18 10:11 Dose: 60 mg Metolazone (Zaroxolyn) 2.5 mg PO DAILY [facility] Last Admin: 02/24/18 10:10 Dose: 2.5 mg Metoprolol Tartrate (Lopressor) 100 mg PO BID [facility] Last Admin: 02/24/18 17:25 Dose: 100 mg Multivitamins (Thera Tab) 1 tab PO DAILY [facility] Last Admin: 02/24/18 10:10 Dose: 1 tab Mupirocin (Bactroban Ointment) 1 gm TOP DAILY [facility] Last Admin: 02/24/18 10:21 Dose: 1 applic Mupirocin (Bactroban Ointment) 1 gm TOP BID [facility] Last Admin: 02/24/18 17:26 Dose: Not Given Magnesium Glycinate [Mag Glycinate] 500 Mg (Home Med) 500 mg PO DAILY [facility] Last Admin: 02/24/18 10:14 Dose: Not Given Pantoprazole Sodium (Protonix Ec Tab) 40 mg PO 0600 [facility] Last Admin: 02/25/18 05:20 Dose: 40 mg Potassium Chloride (Klor-Con 10) 10 meq PO BRK [facility] Last Admin: 02/24/18 08:13 Dose: 10 meq Primidone (Mysoline) 50 mg PO HS [facility] Last Admin: 02/24/18 22:25 Dose: 50 mg Tramadol HCl (Ultram) 50 mg PO TID PRN PRN Reason: Pain, severe (8-10) Last Admin: 02/24/18 18:59 Dose: 50 mg - Labs Labs: 02/25/18 06:15 02/25/18 06:15 PT 12.6 SECONDS (9.4-12.5) H 02/21/18 19:55 INR 1.10 (0.93-1.08) H 18 19:55 APTT 41.8 Seconds (25.1-36.5) H 02/21/18 19:55 - Constitutional Appears: Well, Non-toxic, No Acute Distress - Extremities Exam Additional comments: Dressing is clean, dry and intact. No strike-through noted - Neurological Exam Neurological Exam: Alert, Awake, Oriented x3 - Psychiatric Exam Psychiatric exam: Normal Affect, Normal Mood Assessment and Plan - Assessment and Plan (Free Text) Assessment: 72 year old female with cellulitic changes secondary to left 2nd digit and plantar sub-metatarsal head 1 wound Plan: Patient seen and evaluated Discussed plan with attending Dr. Cortés Labs, vitals and charts reviewed - afebrile, WBC 8.6 Dressing is clean, dry and intact Unable to obtain MRI to r/o OM due to pacemaker - CT scan ordered: OM of middle and distal phalanx of 2nd digit left foot Plan for wound debridement/ 2nd digit amputation today at 6:00 PM medical optimization appreciated NPO after breakfast today Continue IV abx as per ID Surgical shoe while ambulating Podiatry to follow patient while in-house
[2018-02-25] MEDS: Cholecalciferol 1,000 INTLU TAB PO SCH (10:50)
[2018-02-25] MEDS: Multivitamin Therapeutic Tab PO SCH (10:50)
[2018-02-25] MEDS: metOLazone 2.5 MG TAB PO SCH (10:50)
[2018-02-25] MEDS: MAGNESIUM GLYCINATE PO SCH (10:51)
--- NOTE | 2018-02-25 11:18 | CP.PCM.PN ---
<Bri Morgan - Last Filed: 02/25/18 14:11> Subjective - Date & Time of Evaluation Date of Evaluation: 02/25/18 Time of Evaluation: 11:16 - Subjective Subjective: Internal Medicine Progress Note: Patient seen and examined at bedside. Per nursing overnight patient had passing of stool per rectum twice. Patient states that since ileostomy placement 3 years ago she never experienced this. Denies any passage of stool today. She is NPO for left toe debridement/amputation. Denies headaches, dizziness, cp, palpitations, sob, abdominal pain, urinary symptoms. She did have low blood sugars yesterday, as low at 37, which has normalized after juice and D50. Objective - Vital Signs/Intake and Output Vital Signs (last 24 hours): Temp Pulse Resp BP Pulse Ox 98 F 87 20 136/82 97 02/25/18 08:20 02/25/18 08:20 02/25/18 08:20 02/25/18 08:20 02/25/18 08:20 Intake and Output: 02/25/18 02/25/18 06:59 18:59 Intake Total 590 Output Total 4 Balance 586 - Medications Medications: Current Medications Acetaminophen (Tylenol 325mg Tab) 650 mg PO Q6H PRN PRN Reason: Pain, moderate (4-7) Last Admin: 02/24/18 16:30 Dose: 650 mg Ascorbic Acid (Vitamin C 500 Mg Tab) 500 mg PO DAILY [facility] Last Admin: 02/24/18 10:20 Dose: 500 mg Aspirin (Ecotrin) 81 mg PO DAILY [facility] Last Admin: 02/24/18 10:10 Dose: 81 mg Atorvastatin Calcium (Lipitor) 10 mg PO DIN [facility] Last Admin: 02/24/18 17:25 Dose: 10 mg Cholecalciferol (Vitamin D) 1,000 intlu PO DAILY [facility] Last Admin: 02/24/18 10:10 Dose: 1,000 intlu Cyanocobalamin (Vitamin B12 1000 Mcg Tab) 1,000 mcg PO BID [facility] Last Admin: 02/24/18 17:25 Dose: 1,000 mcg Furosemide (Lasix) 80 mg PO BID [facility] Last Admin: 02/24/18 17:26 Dose: Not Given Heparin Sodium (Porcine) (Heparin) 5,000 units SC Q12 [facility] PRN Reason: Protocol Last Admin: 02/24/18 10:11 Dose: 5,000 units Ceftaroline Fosamil 200 mg/ (Sodium Chloride) 50 mls @ 50 mls/hr IVPB Q12H [facility] PRN Reason: Protocol Stop: 03/01/18 14:01 Last Admin: 02/25/18 03:30 Dose: 50 mls/hr Sodium Chloride (Sodium Chloride 0.9%) 250 mls @ 60 mls/hr IV .Q4H10M [facility] Last Admin: 02/24/18 19:00 Dose: 60 mls/hr Insulin Human Regular (Humulin R Med) 0 units SC ACHS [facility] PRN Reason: Protocol Last Admin: 02/25/18 08:17 Dose: Not Given Isosorbide Dinitrate (Isordil) 60 mg PO DAILY [facility] Last Admin: 02/24/18 10:11 Dose: 60 mg Metolazone (Zaroxolyn) 2.5 mg PO DAILY [facility] Last Admin: 02/24/18 10:10 Dose: 2.5 mg Metoprolol Tartrate (Lopressor) 100 mg PO BID [facility] Last Admin: 02/24/18 17:25 Dose: 100 mg Multivitamins (Thera Tab) 1 tab PO DAILY [facility] Last Admin: 02/24/18 10:10 Dose: 1 tab Mupirocin (Bactroban Ointment) 1 gm TOP DAILY [facility] Last Admin: 02/24/18 10:21 Dose: 1 applic Mupirocin (Bactroban Ointment) 1 gm TOP BID [facility] Last Admin: 02/24/18 17:26 Dose: Not Given Magnesium Glycinate [Mag Glycinate] 500 Mg (Home Med) 500 mg PO DAILY [facility] Last Admin: 02/24/18 10:14 Dose: Not Given Pantoprazole Sodium (Protonix Ec Tab) 40 mg PO 0600 [facility] Last Admin: 02/25/18 05:20 Dose: 40 mg Potassium Chloride (Klor-Con 10) 10 meq PO BRK [facility] Last Admin: 02/24/18 08:13 Dose: 10 meq Primidone (Mysoline) 50 mg PO HS [facility] Last Admin: 02/24/18 22:25 Dose: 50 mg Tramadol HCl (Ultram) 50 mg PO TID PRN PRN Reason: Pain, severe (8-10) Last Admin: 02/24/18 18:59 Dose: 50 mg - Labs Labs: 02/25/18 06:15 04/30/18 06:15 PT 12.6 SECONDS (9.4-12.5) H 02/21/18 19:55 INR 1.10 (0.93-1.08) H 02/21/18 19:55 APTT 41.8 Seconds (25.1-36.5) H 02/21/18 19:55 - Additional Findings Additional findings: - Constitutional Appears: Well, No Acute Distress - Head Exam Head Exam: ATRAUMATIC, NORMAL INSPECTION, NORMOCEPHALIC - Eye Exam Eye Exam: EOMI, Normal appearance Pupil Exam: NORMAL ACCOMODATION - ENT Exam ENT Exam: Mucous Membranes Moist - Neck Exam Neck Exam: Full ROM - Respiratory Exam Respiratory Exam: Clear to Ausculation Bilateral, NORMAL BREATHING PATTERN. absent: Rales, Rhonchi, Wheezes - Cardiovascular Exam Cardiovascular Exam: REGULAR RHYTHM, +S1, +S2 - GI/Abdominal Exam GI & Abdominal Exam: Soft, Normal Bowel Sounds, +Ileostomy. absent: Guarding, Rigid, Tenderness - Extremities Exam Additional comments: Left foot exam: dime sized ulceration on plantar surface on left foot; small ulceration on left toe Chronic venous stasis skin changes bilaterally - Back Exam Back Exam: NORMAL INSPECTION - Neurological Exam Neurological Exam: Alert, Awake, Oriented x3 - Psychiatric Exam Psychiatric exam: Normal Affect, Normal Mood - Skin Skin Exam: Normal Color, Warm Assessment and Plan - Assessment and Plan (Free Text) Assessment: Patient is a 71 yo female with history of CAD s/p CABG, CHF s/p pacemaker placement, DM type 2, CKD, AAA s/p repair that presents for medical clearance for her left second digit foot infection. Patient has no complaints. Left Toe Osteomyeolitis/ulceration -Stable, afebrile -No leukocytosis -Foot Xray shows soft tissue swelling without acute articular or osseous abnormality -Foot CT showed findings suspicious for osteomyelolitis of middle and distal phalanges of second digit -Blood cultures no growth x 3 days -Patient going to the OR this evening for left 2nd digit debridement/amputation -NPO after breakfast -Antibiotics: Teflaro 200mg q12H -Podiatry consult: Dr. Cortés -Cardiology: Patient increased risk for any anesthesia, cardiac status is optimum for the OR -Lower extremity US showed mildly normal Right GORDY at rest; distal right SFA, popliteal, tibial disease History CHF -Patient not in exacerbation -Diuretics restarted -Monitor I's and O's, Daily weight -Last stress test showed fixed, apical inferior, inferolateral anterolateral defects, severe LV dysfunction -Last Echo showed LVEF 33%, moderately dilated LV, markedly dilated LA/RA -Cardiology on consult, Dr Vidales, help appreciated Hyperkalemia -Potassium 6.5 yesterday, was given Kayexlate, insulin and D50 -No EKG changes were noted -Potassium this morning 5.3, another dose of Kayexylate ordered -Diuretics restarted -Will continue to monitor DM type 2 -Humalog Med dose ISS -Accuchecks Q4H while NPO -Hga1c 6.5 -Consistent carb/heart healthy diet Acute on Chronic Kidney Disease -BUN/Cr 44/2.3, improving -Baseline CR 1.5-2.0 -Renal workup in progress -Monitor I/Os, daily weights -Nephrology on consult, help appreciated CAD -Continue Metoprolol, isosorbide, ASA 81 -Continue Lipitor Osteoarthritis -Tylenol 650mg PO q6H prn GI/DVT prophylaxis -Protonix/Heparin Plan discussed with Dr Pablo <Sofía Pablo - Last Filed: 02/28/18 15:36> Objective - Vital Signs/Intake and Output Vital Signs (last 24 hours): Temp Pulse Resp BP Pulse Ox 97.9 F 72 20 122/58 L 97 02/27/18 15:02 02/27/18 15:02 02/27/18 15:02 02/27/18 16:29 02/27/18 15:02 - Labs Labs: 02/27/18 07:00 02/27/18 07:00 PT 12.6 SECONDS (9.4-12.5) H 02/21/18 19:55 INR 1.10 (0.93-1.08) H 02/21/18 19:55 APTT 41.8 Seconds (25.1-36.5) H 02/21/18 19:55 Attending/Attestation - Attestation I have personally seen and examined this patient.: Yes I have fully participated in the care of the patient.: Yes I have reviewed all pertinent clinical information, including history, physical exam and plan: Yes Notes (Text): 05/03/18 15:33 Medical record note made by the resident after discussion with my direction and input after the patient was personally seen and examined by me. I have reviewed the chart and agree that the record accurately reflects by personal performance of the history, physical exam, data review, and medical decision-making, in the course for the patient. I have also personally directed the plan of care. 71 year old female with PMH of CAD s/p CABG, CHF diabetes, CKD and AAA s/p repair who presented with left second digit foot infection. CT lower extremity is suspicous for osteomyelitis. She is on IV antibiotics as per ID .She is scheduled for amputation of toe today by Podiatry. Cardiology evaluation is appreciated. Acute on chronic renal failure is improving.Creatinin has come down to 2.3, close to base line.Nephrology is following. Management plan was discussed in detail with patient. Education was provided.
--- NOTE | 2018-02-25 11:42 | CP.PCM.PN ---
Subjective - Date & Time of Evaluation Date of Evaluation: 02/25/18 Time of Evaluation: 11:36 - Subjective Subjective: Patient reports feeling well; tolerating diet; reports urinating overnight ( after being given IV lasix dose) but not more than usual; no sob; Objective - Vital Signs/Intake and Output Vital Signs (last 24 hours): Temp Pulse Resp BP Pulse Ox 98 F 87 20 136/82 97 02/25/18 08:20 02/25/18 10:49 02/25/18 08:20 02/25/18 10:50 02/25/18 08:20 Intake and Output: 02/25/18 02/25/18 06:59 18:59 Intake Total 590 Output Total 4 Balance 586 - Medications Medications: Current Medications Acetaminophen (Tylenol 325mg Tab) 650 mg PO Q6H PRN PRN Reason: Pain, moderate (4-7) Last Admin: 02/24/18 16:30 Dose: 650 mg Ascorbic Acid (Vitamin C 500 Mg Tab) 500 mg PO DAILY [facility] Last Admin: 02/25/18 10:50 Dose: Not Given Aspirin (Ecotrin) 81 mg PO DAILY [facility] [place] Last Admin: 02/25/18 10:51 Dose: Not Given Atorvastatin Calcium (Lipitor) 10 mg PO DIN [facility] [place] Last Admin: 02/24/18 17:25 Dose: 10 mg Cholecalciferol (Vitamin D) 1,000 intlu PO DAILY [facility] [place] Last Admin: 02/25/18 10:50 Dose: Not Given Cyanocobalamin (Vitamin B12 1000 Mcg Tab) 1,000 mcg PO BID [facility] [place] Last Admin: 02/25/18 10:50 Dose: Not Given Furosemide (Lasix) 80 mg PO BID [facility] [place] Last Admin: 02/25/18 10:50 Dose: 80 mg Heparin Sodium (Porcine) (Heparin) 5,000 units SC Q12 [facility] PRN Reason: Protocol Last Admin: 02/24/18 10:11 Dose: 5,000 units Ceftaroline Fosamil 200 mg/ (Sodium Chloride) 50 mls @ 50 mls/hr IVPB Q12H [facility] [place] PRN Reason: Protocol Stop: 03/01/18 14:01 Last Admin: 02/25/18 03:30 Dose: 50 mls/hr Sodium Chloride (Sodium Chloride 0.9%) 250 mls @ 60 mls/hr IV .Q4H10M [facility] [place] Last Admin: 02/24/18 19:00 Dose: 60 mls/hr Sodium Chloride (Sodium Chloride 0.9%) 500 mls @ 80 mls/hr IV .Q6H15M [facility] [place] Stop: 02/25/18 17:59 Insulin Human Regular (Humulin R Med) 0 units SC ACHS [facility] [place] PRN Reason: Protocol Last Admin: 02/25/18 08:17 Dose: Not Given Isosorbide Dinitrate (Isordil) 60 mg PO DAILY [facility] [place] Last Admin: 02/25/18 11:01 Dose: 60 mg Metolazone (Zaroxolyn) 2.5 mg PO DAILY [facility] [place] Last Admin: 02/25/18 10:50 Dose: 2.5 mg Metoprolol Tartrate (Lopressor) 100 mg PO BID [facility] [place] Last Admin: 02/25/18 10:49 Dose: 100 mg Multivitamins (Thera Tab) 1 tab PO DAILY [facility] [place] Last Admin: 02/25/18 10:50 Dose: Not Given Mupirocin (Bactroban Ointment) 1 gm TOP DAILY [facility] [place] Last Admin: 02/24/18 10:21 Dose: 1 applic Mupirocin (Bactroban Ointment) 1 gm TOP BID [facility] [place] Last Admin: 02/24/18 17:26 Dose: Not Given Magnesium Glycinate [Mag Glycinate] 500 Mg (Home Med) 500 mg PO DAILY [facility] [place] Last Admin: 02/25/18 10:51 Dose: Not Given Pantoprazole Sodium (Protonix Ec Tab) 40 mg PO 0600 [facility] [place] Last Admin: 02/25/18 05:20 Dose: 40 mg Potassium Chloride (Klor-Con 10) 10 meq PO BRK [facility] [place] Last Admin: 02/24/18 08:13 Dose: 10 meq Primidone (Mysoline) 50 mg PO HS [facility] [place] Last Admin: 02/24/18 22:25 Dose: 50 mg Tramadol HCl (Ultram) 50 mg PO TID PRN PRN Reason: Pain, severe (8-10) Last Admin: 02/24/18 18:59 Dose: 50 mg - Labs Labs: 02/25/18 06:15 02/25/18 06:15 PT 12.6 SECONDS (9.4-12.5) H 02/21/18 19:55 INR 1.10 (0.93-1.08) H 04/26/18 19:55 APTT 41.8 Seconds (25.1-36.5) H 02/21/18 19:55 - Constitutional Appears: Non-toxic, No Acute Distress - Respiratory Exam Respiratory Exam: Clear to Ausculation Bilateral. absent: Respiratory Distress - Cardiovascular Exam Cardiovascular Exam: RRR, +S1, +S2 - GI/Abdominal Exam GI & Abdominal Exam: Soft. absent: Distended, Tenderness - Exam Exam: absent: Bladder Distension - Extremities Exam Additional comments: mild b/l lower leg edema; - Neurological Exam Neurological Exam: Alert, Awake - Psychiatric Exam Psychiatric exam: Normal Affect, Normal Mood. absent: Agitated - Skin Skin Exam: Warm. absent: Cyanosis Assessment and Plan (1) VALE (acute kidney injury) Assessment & Plan: VALE on CKD IIIB, pre-renal etiology, resolving; restarted on diuretics yesterday , continue same; Status: Acute (2) Hyperkalemia Assessment & Plan: Improved but K still mildly elevated; efficacy of kayexlate unclear s/p santino- colectomy (may work if she has some segment of colon at ostomy site); will discuss with ID regarding changing ceftaroline in the rare case that it is contributing to hyperkalemia; -continuing with IVF and lasix/metolazone for forced kaliuresis; Status: Acute (3) CKD (chronic kidney disease) stage 3, GFR 30-59 ml/min Assessment & Plan: CKD IIIB, discussed with patient regarding progressive nature of CKD; snf may benefit from BRENT blockade (2g proteinuria); still awaiting rest of serologic workup results; Status: Chronic (4) Proteinuria Status: Chronic (5) CHF (congestive heart failure) Assessment & Plan: Appears euvolemic on exam; continuing home diuretic doses; Status: Chronic (6) Toe infection Assessment & Plan: On ceftaroline; recommend to dose abx for CrCl 15-30 ml/min; Status: Acute
[2018-02-25] MEDS ORDERED: Sodium Chloride 0.9% 500 ML IV SCH (11:45)
--- NOTE | 2018-02-25 13:15 | PN ---
DATE: 02/25/2018 TIME OF PROGRESS NOTE: 0700 hours. LOCATION: Room 570, bed 2. SUBJECTIVE: This is a geriatric patient well known to me who had been followed for the last several weeks with ulceration of the second toe on the left foot over the dorsal surface. She had undergone some wound care and antibiotic treatment, which failed to alleviate or improve her symptoms. She was planned for a toe debridement this week and in attempt to get medical clearance from primary doctor, was admitted for further workup including Cardiac and Renal workup. She has been hospitalized over the weekend and had undergone workup by Cardiology, Renal, and Infectious Disease and has been cleared for surgical debridement. As of this morning, she has no general complaints. She is responsive to questioning and she reports herself anxious and anticipating her procedure today. OBJECTIVE: GENERAL: This is a 72-year-old female sitting in bed, conversational, seen with the nurse at bedside. Alert and oriented x3. VITAL SIGNS: Stable. EXTREMITIES: Her pedal pulses are palpable. Capillary return is slightly delayed at 3 seconds. Color and temperature is normal and there is +1 edema in the left foot and there continues to be a draining abscess on the dorsal aspect of the PIP joint on the left foot. The dorsal second wound continues to be with serosanguinous drainage with manipulation. The patient's epicritic sensation is significantly reduced and there is no significant pain in the left foot. There is a previously performed partial toe amputation on the first toe with a continued partial thickness ulceration on the sole of the left foot in the vicinity of the MTP, which is clean without any erythema, without any discharge. There is no significant lymphangitis. The patient has been on antibiotics for the last several days. LABORATORY DATA: Negative blood cultures. The wound cultures are still pending at this time from the hospital. Previous microbiology wound culture from 02/05/2018 reveals heavy growth of MRSA, which is sensitive to Bactrim. Arterial Doppler studies performed by Dr. Sarmiento on this admission revealed a minimal deficit on the left side in her GORDY. x-rays reveal significant claw hammer toe deformities on the toes 2 through 5 on the left foot, significant soft tissue swelling of the second toe and no evidence of acute osteo changes. A CT scan performed reveals density changes in the distal and middle phalanx of the second toe, not confirmed in the third, fourth or fifth toes. Clinically suggestive of osteomyelitis, but no obvious periosteal elevation is noted. ASSESSMENT: Diabetic foot ulcer with cellulitis in the left second toe and probable osteomyelitis of the distal half of the left second toe, probably just subacute. PLAN: The findings and plan are discussed with the patient at bedside and witnessed with the floor nurse. The anticipation is to return late this afternoon, approximately 0700 hours and to take the patient to the OR under local sedation. Since she is neuropathic, no need for general anesthesia given her cardiac and renal status. We will elect to perform amputation of the left second toe and to include the risk of that, the two distal phalanxes, middle and distal phalanx are going to stay in and cause future problem, the amputation is the better way to go in the current situation. The patient understands the plan. The patient understands the risks of proposed surgery including the possible need for future amputation or further amputation and she signed the consent form, witnessed by the nurse on the floor. We will allow breakfast and make her n.p.o. after breakfast and we will take her to the OR this evening. Vinnie Cortés DPM
[2018-02-25] MEDS ORDERED: Vancomycin 1 g Inj ONE (18:05)
[2018-02-25] MEDS ORDERED: Lidocaine 1% Inj (20ml) ONE (18:15)
[2018-02-25] MEDS ORDERED: Bupivacaine 0.5% Inj(30mL) ONE (18:15)
[2018-02-25] MEDS ORDERED: Midazolam 2 MG/2 ML VIAL ONE (18:16)
[2018-02-25] MEDS ORDERED: Metoprolol 1 mg/ml Inj IVP ONE (18:31)
[2018-02-25] MEDS ORDERED: Morphine 4 mg/ml ISec ONE (19:04)
[2018-02-25] MEDS ORDERED: Morphine 2 mg/ml ISec IVP PRN (19:15)
--- NOTE | 2018-02-25 19:19 | PCM.SURG1 ---
Surgeon's Initial Post Op Note - Surgeon's Notes Surgeon: Dr. Vinnie Cortés DPM [place]: Dr. Juliano Shaver DPM PGY-1 Type of Anesthesia: IV Sedation, Local Anesthesia Administered By: Dr. Sky BOBO Pre-Operative Diagnosis: Left foot 2nd digit OM Operative Findings: See dictation. M: Vancomycin beads; 3-0 prolene. I: Pre-op : 10 cc of 1:1 1% lidocaine plain:0.5% marcaine plain Post-Operative Diagnosis: Same Operation Performed: Left foot 2nd digit resection with application of antibiotic beads Specimen/Specimens Removed: Left foot 2nd digit at the level of mid proximal phalnax. Intra-op wound cultures Estimated Blood Loss: EBL {In ML}: 20 Blood Products Given: N/A Drains Used: No Drains Post-Op Condition: Good Date of Surgery/Procedure: 02/25/18 Time of Surgery/Procedure: 19:20
[2018-02-25] MEDS ORDERED: Oxycodone/Acetaminophen 5/325 mg Tab PO PRN (19:22)
[2018-02-26] MEDS: Oxycodone/Acetaminophen 5/325 mg Tab PO PRN ×3 (02:10→19:57)
[2018-02-26] MEDS: Pantoprazole 40 mg EC Tab PO SCH (07:12)
[2018-02-26 07:36] LABS: BASO # 0.02 K/mm3 (0.0-2.0); BASO % 0.2 % (0.0-3.0); EOS # 0.4 (0.0-0.7); EOS % 4.9 % (1.5-5.0); GRAN # 6.55 (1.4-6.5); GRAN % 77.5 % (50.0-68.0); HEMOGLOBIN 11.2 g/dL (12.0-16.0); LYMPH % 11.2 % (22.0-35.0); MEAN CELL VOLUME 96.4 fl (80.0-105.0); MEAN CORPUSCULAR HEMOGLOBIN 30.9 pg (25.0-35.0); MEAN CORPUSCULAR HGB CONC 32.1 g/dl (31.0-37.0); MEAN PLATELET VOLUME 9.5 fl (7.0-11.0); MONO # 0.5 (0.1-0.6); MONO % 6.2 % (1.0-6.0); RBC 3.62 10^6/uL (3.5-6.1); RED CELL DISTRIBUTION WIDTH 13.1 % (11.5-14.5); WHITE BLOOD COUNT 8.5 10^3/ul (4.5-11.0)
[2018-02-26] MEDS: Insulin Reg-MEDIUM-Coverage SC SCH ×4 (08:24→22:17)
[2018-02-26 08:38] LABS: ALB/GLOB RATIO 1.2 (1.1-1.8); CALCIUM 8.7 mg/dL (8.4-10.5)
[2018-02-26] MEDS: metOLazone 2.5 MG TAB PO SCH (09:25)
[2018-02-26] MEDS: Multivitamin Therapeutic Tab PO SCH (09:27)
[2018-02-26] MEDS: Cholecalciferol 1,000 INTLU TAB PO SCH (09:37)
--- NOTE | 2018-02-26 10:19 | RAD ---
PROCEDURE: Left Foot Radiographs. HISTORY: s/p left foot surgery COMPARISON: None. FINDINGS: BONES: There has been recent amputation of the 2nd toe. There is surgical packing at this site. Previous amputation of the big toe. JOINTS: Normal. SOFT TISSUES: Normal. OTHER FINDINGS: None. IMPRESSION: There has been recent amputation of the 2nd toe. There is surgical packing at this site
--- NOTE | 2018-02-26 12:23 | CP.PCM.PN ---
<Bri Morgan - Last Filed: 02/26/18 13:41> Subjective - Date & Time of Evaluation Date of Evaluation: 02/26/18 Time of Evaluation: 12:22 - Subjective Subjective: Internal Medicine Progress Note: Patient seen and examined at bedside. Per nursing no acute events overnight. Patient is s/p Left foot 2nd digit resection with application of antibiotic beads POD#1. She is doing well, pain is controlled. Ambulating and tolerating diet. Denies headaches, dizziness, cp, palpitations, sob, abdominal pain, urinary symptoms. Objective - Vital Signs/Intake and Output Vital Signs (last 24 hours): Temp Pulse Resp BP Pulse Ox 98 F 73 20 125/62 98 02/26/18 08:23 02/26/18 08:23 02/26/18 08:23 02/26/18 09:26 02/26/18 08:23 Intake and Output: 02/26/18 02/26/18 06:59 18:59 Intake Total 120 400 Balance 120 400 - Medications Medications: Current Medications Acetaminophen (Tylenol 325mg Tab) 650 mg PO Q6H PRN PRN Reason: Pain, moderate (4-7) Last Admin: 02/25/18 23:43 Dose: 650 mg Ascorbic Acid (Vitamin C 500 Mg Tab) 500 mg PO DAILY [facility] Last Admin: 02/26/18 09:25 Dose: 500 mg Aspirin (Ecotrin) 81 mg PO DAILY [facility] Last Admin: 02/26/18 09:27 Dose: 81 mg Atorvastatin Calcium (Lipitor) 10 mg PO DIN [facility] Last Admin: 02/25/18 19:53 Dose: Not Given Cholecalciferol (Vitamin D) 1,000 intlu PO DAILY [facility] Last Admin: 02/26/18 09:37 Dose: 1,000 intlu Cyanocobalamin (Vitamin B12 1000 Mcg Tab) 1,000 mcg PO BID [facility] Last Admin: 02/26/18 09:25 Dose: 1,000 mcg Furosemide (Lasix) 80 mg PO BID [facility] Last Admin: 02/26/18 09:26 Dose: 80 mg Heparin Sodium (Porcine) (Heparin) 5,000 units SC Q12 [facility] PRN Reason: Protocol Last Admin: 02/24/18 10:11 Dose: 5,000 units Ceftaroline Fosamil 200 mg/ (Sodium Chloride) 50 mls @ 50 mls/hr IVPB Q12H [facility] PRN Reason: Protocol Stop: 03/01/18 14:01 Last Admin: 02/26/18 02:18 Dose: 50 mls/hr Sodium Chloride (Sodium Chloride 0.9%) 250 mls @ 60 mls/hr IV .Q4H10M [facility] Last Admin: 02/24/18 19:00 Dose: 60 mls/hr Insulin Human Regular (Humulin R Med) 0 units SC ACHS [facility] PRN Reason: Protocol Last Admin: 02/26/18 08:24 Dose: Not Given Isosorbide Dinitrate (Isordil) 60 mg PO DAILY [facility] Last Admin: 02/26/18 10:47 Dose: 60 mg Metolazone (Zaroxolyn) 2.5 mg PO DAILY [facility] Last Admin: 02/26/18 09:25 Dose: 2.5 mg Metoprolol Tartrate (Lopressor) 100 mg PO BID [facility] Last Admin: 02/26/18 09:25 Dose: 100 mg Multivitamins (Thera Tab) 1 tab PO DAILY [facility] Last Admin: 02/26/18 09:27 Dose: 1 tab Mupirocin (Bactroban Ointment) 1 gm TOP DAILY [facility] Last Admin: 02/25/18 14:46 Dose: Not Given Mupirocin (Bactroban Ointment) 1 gm TOP BID [facility] Last Admin: 02/25/18 19:53 Dose: Not Given Magnesium Glycinate [Mag Glycinate] 500 Mg (Home Med) 500 mg PO DAILY [facility] Last Admin: 02/25/18 10:51 Dose: Not Given Oxycodone/Acetaminophen (Percocet 5/325 Mg Tab) 1 tab PO Q4H PRN PRN Reason: Pain, moderate (4-7) Stop: 02/28/18 19:23 Last Admin: 02/26/18 09:37 Dose: 1 tab Oxycodone/Acetaminophen (Percocet 5/325 Mg Tab) 2 tab PO Q4H PRN PRN Reason: Pain, severe (8-10) Stop: 02/28/18 19:23 Pantoprazole Sodium (Protonix Ec Tab) 40 mg PO 0600 [facility] Last Admin: 02/26/18 07:12 Dose: Not Given Potassium Chloride (Klor-Con 10) 10 meq PO BRK [facility] Last Admin: 02/24/18 08:13 Dose: 10 meq Primidone (Mysoline) 50 mg PO HS [facility] Last Admin: 02/25/18 22:07 Dose: 50 mg - Labs Labs: 02/26/18 07:00 02/26/18 07:00 PT 12.6 SECONDS (9.4-12.5) H 02/21/18 19:55 INR 1.10 (0.93-1.08) H 02/21/18 19:55 APTT 41.8 Seconds (25.1-36.5) H 02/21/18 19:55 - Constitutional Appears: Well, Non-toxic, No Acute Distress - Head Exam Head Exam: ATRAUMATIC, NORMAL INSPECTION, NORMOCEPHALIC - Eye Exam Eye Exam: EOMI, Normal appearance Pupil Exam: NORMAL ACCOMODATION - ENT Exam ENT Exam: Mucous Membranes Moist - Respiratory Exam Respiratory Exam: Clear to Ausculation Bilateral, NORMAL BREATHING PATTERN. absent: Rales, Rhonchi, Wheezes - Cardiovascular Exam Cardiovascular Exam: REGULAR RHYTHM, +S1, +S2 - GI/Abdominal Exam GI & Abdominal Exam: Soft, Normal Bowel Sounds. absent: Rigid, Tenderness Additional comments: +ileostomy - Extremities Exam Additional comments: left foot dressing c/d/i - Neurological Exam Neurological Exam: Alert, Awake, Oriented x3 - Psychiatric Exam Psychiatric exam: Normal Affect, Normal Mood - Skin Skin Exam: Dry, Normal Color, Warm Assessment and Plan - Assessment and Plan (Free Text) Assessment: Patient is a 71 yo female with history of CAD s/p CABG, CHF s/p pacemaker placement, DM type 2, CKD, AAA s/p repair that presents for medical clearance for her left second digit foot infection. Patient has no complaints. Left Toe Osteomyeolitis/ulceration -Stable, afebrile -No leukocytosis -Foot Xray shows soft tissue swelling without acute articular or osseous abnormality -Foot CT showed findings suspicious for osteomyelolitis of middle and distal phalanges of second digit -Patient is s/p Left foot 2nd digit resection with application of antibiotic beads POD#1 -Blood cultures no growth x 4 days -Intraop cultures and pathology pending -Antibiotics: Teflaro 200mg q12H -Podiatry consult: Dr. Cortés -Lower extremity US showed mildly normal Right GORDY at rest; distal right SFA, popliteal, tibial disease History CHF -Patient not in exacerbation -Diuretics restarted -Monitor I's and O's, Daily weight -Last stress test showed fixed, apical inferior, inferolateral anterolateral defects, severe LV dysfunction -Last Echo showed LVEF 33%, moderately dilated LV, markedly dilated LA/RA -Cardiology on consult, Dr Vidales, help appreciated Hyperkalemia -Potassium 4.5 today -Diuretics restarted -Will continue to monitor DM type 2 -Humalog Med dose ISS -Accuchecks ACHS -Hga1c 6.5 -Consistent carb/heart healthy diet Acute on Chronic Kidney Disease -BUN/Cr 43/2.4, stable -Baseline CR 1.5-2.0 -Renal workup in progress -Monitor I/Os, daily weights -Nephrology on consult, help appreciated CAD -Continue Metoprolol, isosorbide, ASA 81 -Continue Lipitor Osteoarthritis -Tylenol 650mg PO q6H prn GI/DVT prophylaxis -Protonix/Heparin Plan discussed with Dr Pablo <Sofía Pablo - Last Filed: 02/28/18 15:39> Objective - Vital Signs/Intake and Output Vital Signs (last 24 hours): Temp Pulse Resp BP Pulse Ox 97.9 F 72 20 122/58 L 97 02/27/18 15:02 02/27/18 15:02 02/27/18 15:02 02/27/18 16:29 02/27/18 15:02 - Labs Labs: 02/27/18 07:00 02/27/18 07:00 PT 12.6 SECONDS (9.4-12.5) H 02/21/18 19:55 INR 1.10 (0.93-1.08) H 02/21/18 19:55 APTT 41.8 Seconds (25.1-36.5) H 02/21/18 19:55 Attending/Attestation - Attestation I have personally seen and examined this patient.: Yes I have fully participated in the care of the patient.: Yes I have reviewed all pertinent clinical information, including history, physical exam and plan: Yes Notes (Text): 02/28/18 15:38 Medical record note made by the resident after discussion with my direction and input after the patient was personally seen and examined by me. I have reviewed the chart and agree that the record accurately reflects by personal performance of the history, physical exam, data review, and medical decision-making, in the course for the patient. I have also personally directed the plan of care. 71 year old female with PMH of CAD s/p CABG, CHF diabetes, CKD and AAA s/p repair who presented with left second digit foot infection. CT lower extremity is suspicious for osteomyelitis..She underwent Left foot 2nd digit resection with application of antibiotic beads . She is on IV antibiotics as per ID .She is scheduled for amputation of toe today by Podiatry. Acute on chronic renal failure is improving.Creatinin has come down to 2.4.Hyperkalemia os resolved.,.Nephrology is following. Management plan was discussed in detail with patient. Education was provided.
[2018-02-26 13:54] VITALS: O2SAT 97
[2018-02-26 15:18] LABS: ALBUMIN 71.9 Relative %; ALPHA-1 GLOBULIN 3.2 Relative %
--- NOTE | 2018-02-26 16:29 | CP.PCM.PN ---
Subjective - Date & Time of Evaluation Date of Evaluation: 02/26/18 Time of Evaluation: 12:20 - Subjective Subjective: No fevers, not in distress, afebrile. Had amputation of left foot 2nd digit yesterday. No diarrhea. Objective - Vital Signs/Intake and Output Vital Signs (last 24 hours): Temp Pulse Resp BP Pulse Ox 98 F 73 20 125/62 98 02/26/18 08:23 02/26/18 08:23 02/26/18 08:23 02/26/18 09:26 02/26/18 08:23 Intake and Output: 02/26/18 02/26/18 06:59 18:59 Intake Total 120 Balance 120 - Medications Medications: Current Medications Acetaminophen (Tylenol 325mg Tab) 650 mg PO Q6H PRN PRN Reason: Pain, moderate (4-7) Last Admin: 02/25/18 23:43 Dose: 650 mg Ascorbic Acid (Vitamin C 500 Mg Tab) 500 mg PO DAILY [facility] Last Admin: 02/26/18 09:25 Dose: 500 mg Aspirin (Ecotrin) 81 mg PO DAILY [facility] Last Admin: 02/26/18 09:27 Dose: 81 mg Atorvastatin Calcium (Lipitor) 10 mg PO DIN [facility] Last Admin: 02/25/18 19:53 Dose: Not Given Cholecalciferol (Vitamin D) 1,000 intlu PO DAILY [facility] Last Admin: 02/26/18 09:37 Dose: 1,000 intlu Cyanocobalamin (Vitamin B12 1000 Mcg Tab) 1,000 mcg PO BID [facility] Last Admin: 02/26/18 09:25 Dose: 1,000 mcg Furosemide (Lasix) 80 mg PO BID [facility] Last Admin: 02/26/18 09:26 Dose: 80 mg Heparin Sodium (Porcine) (Heparin) 5,000 units SC Q12 [facility] PRN Reason: Protocol Last Admin: 02/24/18 10:11 Dose: 5,000 units Ceftaroline Fosamil 200 mg/ (Sodium Chloride) 50 mls @ 50 mls/hr IVPB Q12H [facility] PRN Reason: Protocol Stop: 03/01/18 14:01 Last Admin: 02/26/18 02:18 Dose: 50 mls/hr Sodium Chloride (Sodium Chloride 0.9%) 250 mls @ 60 mls/hr IV .Q4H10M [facility] Last Admin: 02/24/18 19:00 Dose: 60 mls/hr Insulin Human Regular (Humulin R Med) 0 units SC [facility] PRN Reason: Protocol Last Admin: 02/26/18 08:24 Dose: Not Given Isosorbide Dinitrate (Isordil) 60 mg PO DAILY [facility] Last Admin: 02/25/18 11:01 Dose: 60 mg Metolazone (Zaroxolyn) 2.5 mg PO DAILY [facility] Last Admin: 02/26/18 09:25 Dose: 2.5 mg Metoprolol Tartrate (Lopressor) 100 mg PO BID [facility] Last Admin: 02/26/18 09:25 Dose: 100 mg Multivitamins (Thera Tab) 1 tab PO DAILY [facility] Last Admin: 02/26/18 09:27 Dose: 1 tab Mupirocin (Bactroban Ointment) 1 gm TOP DAILY [facility] Last Admin: 02/25/18 14:46 Dose: Not Given Mupirocin (Bactroban Ointment) 1 gm TOP BID [facility] Last Admin: 02/25/18 19:53 Dose: Not Given Magnesium Glycinate [Mag Glycinate] 500 Mg (Home Med) 500 mg PO DAILY [facility] Last Admin: 02/25/18 10:51 Dose: Not Given Oxycodone/Acetaminophen (Percocet 5/325 Mg Tab) 1 tab PO Q4H PRN PRN Reason: Pain, moderate (4-7) Stop: 02/28/18 19:23 Last Admin: 02/26/18 09:37 Dose: 1 tab Oxycodone/Acetaminophen (Percocet 5/325 Mg Tab) 2 tab PO Q4H PRN PRN Reason: Pain, severe (8-10) Stop: 02/28/18 19:23 Pantoprazole Sodium (Protonix Ec Tab) 40 mg PO 0600 [facility] Last Admin: 02/26/18 07:12 Dose: Not Given Potassium Chloride (Klor-Con 10) 10 meq PO BRK [facility] Last Admin: 02/24/18 08:13 Dose: 10 meq Primidone (Mysoline) 50 mg PO HS [facility] Last Admin: 02/25/18 22:07 Dose: 50 mg - Labs Labs: 02/26/18 07:00 02/26/18 07:00 PT 12.6 SECONDS (9.4-12.5) H 02/21/18 19:55 INR 1.10 (0.93-1.08) H 02/21/18 19:55 APTT 41.8 Seconds (25.1-36.5) H 02/21/18 19:55 - Constitutional Appears: Non-toxic, Chronically Ill - Head Exam Head Exam: NORMAL INSPECTION - ENT Exam ENT Exam: Mucous Membranes Moist - Neck Exam Neck Exam: absent: Meningismus - Respiratory Exam Respiratory Exam: Decreased Breath Sounds - Cardiovascular Exam Cardiovascular Exam: +S1, +S2 - GI/Abdominal Exam GI & Abdominal Exam: Soft. absent: Tenderness - Extremities Exam Additional comments: left foot with dressings in place Assessment and Plan - Assessment and Plan (Free Text) Plan: Assessment Consider left foot 2nd digit skin and skin structure infection R/O osteomyelitis S/P amputation CAD S/P CABG abdominal aortic aneurysm S/P repair S/P cholecystectomy S/P pacemaker placement DM S/P left toe amputation Plan continue Teflaro pending OR cultures and pathology discussed with Dr. Cedeno about patient's hyperkalemia which may be from Teflaro - serum potassium today is normal at 4.5 - will monitor clinically
[2018-02-26] MEDS: MAGNESIUM GLYCINATE PO SCH (18:17)
--- NOTE | 2018-02-26 19:18 | CP.PCM.PN ---
Subjective - Date & Time of Evaluation Date of Evaluation: 02/26/18 Time of Evaluation: 12:00 - Subjective Subjective: Patient reports feeling well; no sob; no leg swelling; Objective - Vital Signs/Intake and Output Vital Signs (last 24 hours): Temp Pulse Resp BP Pulse Ox 97.8 F 66 20 151/86 H 97 02/26/18 13:54 02/26/18 13:54 02/26/18 13:54 02/26/18 17:02 02/26/18 13:54 Intake and Output: 02/26/18 02/27/18 18:59 06:59 Intake Total 400 Balance 400 - Medications Medications: Current Medications Acetaminophen (Tylenol 325mg Tab) 650 mg PO Q6H PRN PRN Reason: Pain, moderate (4-7) Last Admin: 02/25/18 23:43 Dose: 650 mg Ascorbic Acid (Vitamin C 500 Mg Tab) 500 mg PO DAILY [facility] Last Admin: 02/26/18 09:25 Dose: 500 mg Aspirin (Ecotrin) 81 mg PO DAILY [facility] Last Admin: 02/26/18 09:27 Dose: 81 mg Atorvastatin Calcium (Lipitor) 10 mg PO DIN [facility] Last Admin: 02/26/18 17:02 Dose: 10 mg Cholecalciferol (Vitamin D) 1,000 intlu PO DAILY [facility] Last Admin: 02/26/18 09:37 Dose: 1,000 intlu Cyanocobalamin (Vitamin B12 1000 Mcg Tab) 1,000 mcg PO BID [facility] Last Admin: 02/26/18 17:00 Dose: 1,000 mcg Furosemide (Lasix) 80 mg PO BID [facility] Last Admin: 02/26/18 17:02 Dose: 80 mg Heparin Sodium (Porcine) (Heparin) 5,000 units SC Q12 [facility] PRN Reason: Protocol Last Admin: 02/24/18 10:11 Dose: 5,000 units Ceftaroline Fosamil 200 mg/ (Sodium Chloride) 50 mls @ 50 mls/hr IVPB Q12H [facility] PRN Reason: Protocol Stop: 03/01/18 14:01 Last Admin: 02/26/18 14:59 Dose: 50 mls/hr Sodium Chloride (Sodium Chloride 0.9%) 250 mls @ 60 mls/hr IV .Q4H10M [facility] Last Admin: 02/24/18 19:00 Dose: 60 mls/hr Insulin Human Regular (Humulin R Med) 0 units SC ACHS [facility] PRN Reason: Protocol Last Admin: 02/26/18 16:57 Dose: 1 units Isosorbide Dinitrate (Isordil) 60 mg PO DAILY [facility] Last Admin: 02/26/18 10:47 Dose: 60 mg Metolazone (Zaroxolyn) 2.5 mg PO DAILY [facility] Last Admin: 02/26/18 09:25 Dose: 2.5 mg Metoprolol Tartrate (Lopressor) 100 mg PO BID [facility] Last Admin: 02/26/18 17:02 Dose: 100 mg Multivitamins (Thera Tab) 1 tab PO DAILY [facility] Last Admin: 02/26/18 09:27 Dose: 1 tab Mupirocin (Bactroban Ointment) 1 gm TOP DAILY [facility] Last Admin: 02/26/18 10:00 Dose: Not Given Mupirocin (Bactroban Ointment) 1 gm TOP BID [facility] Last Admin: 02/26/18 19:04 Dose: Not Given Magnesium Glycinate [Mag Glycinate] 500 Mg (Home Med) 500 mg PO DAILY [facility] Last Admin: 02/26/18 18:17 Dose: Not Given Oxycodone/Acetaminophen (Percocet 5/325 Mg Tab) 1 tab PO Q4H PRN PRN Reason: Pain, moderate (4-7) Stop: 02/28/18 19:23 Last Admin: 02/26/18 09:37 Dose: 1 tab Oxycodone/Acetaminophen (Percocet 5/325 Mg Tab) 2 tab PO Q4H PRN PRN Reason: Pain, severe (8-10) Stop: 02/28/18 19:23 Pantoprazole Sodium (Protonix Ec Tab) 40 mg PO 0600 [facility] Last Admin: 02/26/18 07:12 Dose: Not Given Potassium Chloride (Klor-Con 10) 10 meq PO BRK [facility] Last Admin: 02/24/18 08:13 Dose: 10 meq Primidone (Mysoline) 50 mg PO HS [facility] Last Admin: 02/25/18 22:07 Dose: 50 mg - Labs Labs: 02/26/18 07:00 02/26/18 07:00 PT 12.6 SECONDS (9.4-12.5) H 02/21/18 19:55 INR 1.10 (0.93-1.08) H 02/21/18 19:55 APTT 41.8 Seconds (25.1-36.5) H 02/21/18 19:55 - Constitutional Appears: Non-toxic, No Acute Distress - Eye Exam Eye Exam: Normal appearance - ENT Exam ENT Exam: Mucous Membranes Moist - Respiratory Exam Respiratory Exam: Clear to Ausculation Bilateral. absent: Respiratory Distress - Cardiovascular Exam Cardiovascular Exam: RRR, +S1, +S2 - GI/Abdominal Exam GI & Abdominal Exam: Soft. absent: Distended, Tenderness - Extremities Exam Additional comments: mild lower leg edema; - Neurological Exam Neurological Exam: Alert, Awake - Psychiatric Exam Psychiatric exam: Normal Affect, Normal Mood. absent: Agitated - Skin Skin Exam: Warm. absent: Cyanosis Assessment and Plan (1) VALE (acute kidney injury) Assessment & Plan: VALE, improved, pre-renal etiology; patient told to cut back diuretics to lasix 40 mg bid and continue with metolazone 2.5 mg daily; needs to carefully monitor weights and edema, if any increase should go back to lasix 80 mg bid; Status: Acute (2) Hyperkalemia Assessment & Plan: Improved, advised to stay on low K diet and hold K replenishment; Status: Acute (3) CKD (chronic kidney disease) stage 3, GFR 30-59 ml/min Assessment & Plan: Proteinuric kidney disease likely due to DM; discussed role of adding ARB/FIDEL inhibitor sales recruitment specialist; should be discussed with PMD before starting; Status: Chronic (4) Proteinuria Status: Chronic (5) CHF (congestive heart failure) Assessment & Plan: Stable volume status; continuing lasix 80 mg bid today since patient was given lot of IVF earlier; Status: Chronic (6) Toe infection Status: Acute
[2018-02-27] MEDS: Pantoprazole 40 mg EC Tab PO SCH (05:33)
[2018-02-27 07:30] LABS: BASO # 0.03 K/mm3 (0.0-2.0); BASO % 0.4 % (0.0-3.0); EOS # 0.6 (0.0-0.7); EOS % 7.4 % (1.5-5.0); GRAN # 5.16 (1.4-6.5); GRAN % 69.4 % (50.0-68.0); HEMOGLOBIN 10.7 g/dL (12.0-16.0); LYMPH # 1.3 (1.2-3.4); LYMPH % 17.3 % (22.0-35.0); MEAN CELL VOLUME 95.7 fl (80.0-105.0); MEAN CORPUSCULAR HEMOGLOBIN 30.8 pg (25.0-35.0); MEAN CORPUSCULAR HGB CONC 32.2 g/dl (31.0-37.0); MEAN PLATELET VOLUME 9.3 fl (7.0-11.0); MONO # 0.4 (0.1-0.6); MONO % 5.5 % (1.0-6.0); RBC 3.47 10^6/uL (3.5-6.1); RED CELL DISTRIBUTION WIDTH 12.9 % (11.5-14.5); WHITE BLOOD COUNT 7.4 10^3/ul (4.5-11.0)
[2018-02-27] MEDS: Insulin Reg-MEDIUM-Coverage SC SCH ×2 (07:38→11:58)
[2018-02-27 07:54] LABS: ALB/GLOB RATIO 1.2 (1.1-1.8); ALBUMIN 3.5 g/dL (3.0-4.8); CALCIUM 8.5 mg/dL (8.4-10.5)
[2018-02-27 08:17] VITALS: RESP 20
[2018-02-27 09:06] LABS: ALBUMIN (PEP) 3.1 g/dL (3.8-4.8); ALPHA-1-GLOBULIN (PEP) 0.4 g/dL (0.2-0.3)
--- NOTE | 2018-02-27 09:20 | OP ---
PROCEDURE DATE: 02/25/2018 SURGEON: Vinnie Cortés DPM DISPLAY SCREEN FABRICATOR: Juliano Shaver DPM, PGY-1 ANESTHESIOLOGIST: Dr. Swanson ANESTHESIA: IV sedation with local. PREOPERATIVE DIAGNOSIS: Left foot second digit osteomyelitis. POSTOPERATIVE DIAGNOSIS: Left foot second digit osteomyelitis. NAME OF THE PROCEDURE: Left partial second digit resection with application of antibiotic beads. INDICATION: The patient is a 72-year-old female with the above diagnosis. The patient has exhausted all conservative treatment at this time and now requires surgical intervention. The patient signed the consent after careful explanation of risks, benefits, and complications and alternatives for surgical procedure, no guarantees were given or implied. The n.p.o. status was confirmed prior to taking the patient to the OR. PREPARATION: The patient was brought into the operating room and placed on the operating room table in a supine position. The timeout was performed for identification of the correct patient and the procedure. After induction of the IV sedation, the patient received total of 10 mL of 1:1 mixture of 1% lidocaine plain to 0.5% Marcaine plain in a local block V-type fashion. The left foot was then prepped and draped in a normal sterile manner and the procedure began. No tourniquet was utilized during this procedure. DESCRIPTION OF PROCEDURE: Attention was then drawn to the distal aspect of the left foot, second digit where the wound at the level of PIP joint and the wound in the plantar crease was noted. The incision was carefully planned out using a marking pen. Using a #15 blade, the incision was made over the planned site, which extended circumferentially around the level of the PIPJ on the second digit. Using a phalangeal clip the second digit was stabilized and the incision was deepened with the blade down to the level of the bone. At this time, the periosteal eric elevator was utilized to retract the periosteum from the proximal phalanx using a double action bone cutter , the proximal phalanx was cut at the level of the mid shaft. A #15 blade was utilized to detach the digit from all its attachment on the plantar aspect and the digit was passed off the operative field and was sent to pathology at this time. All nonviable soft tissue was surgically debrided down to the level of the bone and to the level of the healthy bleeding tissue. The surgical site was then copiously irrigated with saline infused with bacitracin. Deep wound cultures were taken at this time. Prior to starting this procedure, vancomycin beads were prepared on the back table in a sterile manner. The beads were now inserted into the surgical site. The surgical site was then re-approximated using 3-0 Prolene. The surgical site was then dressed with Betadine-soaked Adaptic, 4x4, and Kerlix. POSTOPERATIVE CONDITION: The patient tolerated the anesthesia and the procedure well and was escorted to the recovery room with neurovascular status intact to the left foot. The patient is to remain partial weightbearing to the heel in a surgical shoe. The patient will keep the dressing clean, dry and intact and will return to the floor where she will be followed up by Podiatry on a daily basis. Upon discharge, patient will be seen by Dr. Cortés in his office. Juliano Shaver DPM Vinnie Cortés DPM
[2018-02-27] MEDS: Oxycodone/Acetaminophen 5/325 mg Tab PO PRN ×2 (09:48→16:28)
[2018-02-27] MEDS: Cholecalciferol 1,000 INTLU TAB PO SCH (09:49)
[2018-02-27] MEDS: Multivitamin Therapeutic Tab PO SCH (09:49)
[2018-02-27] MEDS: metOLazone 2.5 MG TAB PO SCH (09:50)
--- NOTE | 2018-02-27 13:10 | CP.PCM.DIS ---
<Bri Morgan - Last Filed: 02/27/18 15:03> Provider - Provider Date of Admission: 02/22/18 08:16 Attending physician: Sofía Pablo MD Primary care physician: Yariel Flannery MD Consults: Nephrology: Wilian Cardiology: Flash Podiatry: Milana Time Spent in preparation of Discharge (in minutes): 35 Hospital Course - Lab Results Lab Results: Micro Results 02/25/18 18:50 Toe Gram Stain - Final 02/25/18 18:50 Toe Wound Culture - Preliminary NO GROWTH AFTER 24 HOURS 02/25/18 18:50 Other: Please Indicate Tissue Culture - Preliminary NO GROWTH AFTER 24 HOURS Most Recent Lab Values WBC 7.4 10^3/ul (4.5-11.0) 02/27/18 07:00 RBC 3.47 10^6/uL (3.5-6.1) L 02/27/18 07:00 Hgb 10.7 g/dL (12.0-16.0) L 02/27/18 07:00 Hct 33.2 % (36.0-48.0) L 02/27/18 07:00 MCV 95.7 fl (80.0-105.0) 02/27/18 07:00 MCH 30.8 pg (25.0-35.0) 02/27/18 07:00 MCHC 32.2 g/dl (31.0-37.0) 02/27/18 07:00 RDW 12.9 % (11.5-14.5) 02/27/18 07:00 Plt Count 185 10^3/uL (120.0-450.0) 02/27/18 07:00 MPV 9.3 fl (7.0-11.0) 02/27/18 07:00 Gran % 69.4 % (50.0-68.0) H 02/27/18 07:00 Lymph % (Auto) 17.3 % (22.0-35.0) L 02/27/18 07:00 Perkins % (Auto) 5.5 % (1.0-6.0) 02/27/18 07:00 Eos % (Auto) 7.4 % (1.5-5.0) H 02/27/18 07:00 Baso % (Auto) 0.4 % (0.0-3.0) 02/27/18 07:00 Gran # 5.16 (1.4-6.5) 02/27/18 07:00 Lymph # (Auto) 1.3 (1.2-3.4) 02/27/18 07:00 Perkins # (Auto) 0.4 (0.1-0.6) 02/27/18 07:00 Eos # (Auto) 0.6 (0.0-0.7) 02/27/18 07:00 Baso # (Auto) 0.03 K/mm3 (0.0-2.0) 02/27/18 07:00 PT 12.6 SECONDS (9.4-12.5) H 02/21/18 19:55 INR 1.10 (0.93-1.08) H 02/21/18 19:55 APTT 41.8 Seconds (25.1-36.5) H 02/21/18 19:55 Sodium 136 mmol/L (132-148) 02/27/18 07:00 Potassium 4.2 mmol/L (3.6-5.0) 02/27/18 07:00 Chloride 105 mmol/L (98-107) 02/27/18 07:00 Carbon Dioxide 20 mmol/L (21-33) L 02/27/18 07:00 Anion Gap 15 (10-20) 02/27/18 07:00 BUN 46 mg/dL (7-21) H 02/27/18 07:00 Creatinine 2.4 mg/dl (0.7-1.2) H 02/27/18 07:00 Est GFR ( Amer) 24 02/27/18 07:00 Est GFR (Non-Af Amer) 20 02/27/18 07:00 POC Glucose (mg/dL) 217 mg/dL (65-110) H 02/27/18 11:35 Random Glucose 125 mg/dL (70-110) H 02/27/18 07:00 Hemoglobin A1c 6.5 % (4.2-6.5) 02/22/18 08:00 Uric Acid 8.1 mg/dL (2.5-6.2) H 02/23/18 06:40 Calcium 8.5 mg/dL (8.4-10.5) 02/27/18 07:00 Phosphorus 4.1 mg/dL (2.5-4.5) 02/23/18 06:40 Magnesium 1.9 mg/dL (1.7-2.2) 02/25/18 06:15 Iron 56 ug/dL (45-180) 02/23/18 06:40 TIBC 230 ug/dL (265-497) L 02/23/18 06:40 % Saturation 24 % (20-55) 02/23/18 06:40 Ferritin 242.0 ng/mL 02/23/18 06:40 Total Bilirubin 0.3 mg/dL (0.2-1.3) 02/27/18 07:00 AST 26 U/L (14-36) 02/27/18 07:00 ALT 31 U/L (7-56) 02/27/18 07:00 Alkaline Phosphatase 87 U/L (38-126) 02/27/18 07:00 Total Creatine Kinase 105 U/L (35-230) 02/24/18 20:00 Total Protein 6.4 g/dL (5.8-8.3) 02/27/18 07:00 Total Protein (PEP) 6.3 g/dL (6.1-8.1) 02/23/18 06:40 Albumin 3.5 g/dL (3.0-4.8) 02/27/18 07:00 Albumin (PEP) 3.1 g/dL (3.8-4.8) L 02/23/18 06:40 Globulin 3.0 gm/dL 02/27/18 07:00 Albumin/Globulin Ratio 1.2 (1.1-1.8) 02/27/18 07:00 Yrcbp-9-Gywudzbgq 3.2 Relative % 02/23/18 19:00 Avyat-2-Keisycykg 5.0 Relative % 02/23/18 19:00 Beta Globulins 8.2 Relative % 02/23/18 19:00 Mgmy-7-Aiirglmv 0.3 g/dL (0.4-0.6) L 02/23/18 06:40 Zhcx-7-Lfzzbenr 0.3 g/dL (0.2-0.5) 02/23/18 06:40 Gamma Globulins 11.8 Relative % 02/23/18 19:00 Abnorm Protein Band 1 TEST NOT PERFORMED 02/23/18 06:40 Abnorm Protein Band 2 TEST NOT PERFORMED 02/23/18 06:40 Abnorm Protein Band 3 TEST NOT PERFORMED 02/23/18 06:40 PTH Intact Whole Molec 122 pg/mL (14-64) H 02/23/18 06:40 Urine Color yellow (YELLOW) 02/24/18 01:30 Urine Appearance Slight-cloudy (CLEAR) 02/24/18 01:30 Urine pH 5.5 (4.7-8.0) 02/24/18 01:30 Ur Specific [place] 1.020 (1.005-1.035) 02/24/18 01:30 Urine Protein >=300 mg/dL (<30 mg/dL) H 02/24/18 01:30 Urine Glucose (UA) Negative mg/dL (NEGATIVE) 02/24/18 01:30 Urine Ketones Negative mg/dL (NEGATIVE) 02/24/18 01:30 Urine Blood Small (NEGATIVE) H 02/24/18 01:30 Urine Nitrate Negative (NEGATIVE) 02/24/18 01:30 Urine Bilirubin Negative (NEGATIVE) 02/24/18 01:30 Urine Urobilinogen 0.2 E.U./dL (<1 E.U./dL) 02/24/18 01:30 Ur Leukocyte Esterase Trace Collins/uL (NEGATIVE) H 02/24/18 01:30 Urine RBC 15 - 20 /hpf (0-2) 02/24/18 01:30 Urine WBC 2 - 5 /hpf (0-6) 02/24/18 01:30 Ur Epithelial Cells 6 - 8 /hpf (0-5) 02/24/18 01:30 Amorphous Sediment Small 02/24/18 01:30 Urine Bacteria Trace (NEG) 02/24/18 01:30 Ur Random Creatinine 62 mg/dL 02/24/18 01:30 Ur Random Urea Nitrogn 454 mg/dL 02/24/18 01:30 Urine Creatinine 0.71 g/L 02/23/18 19:00 Ur Creatinine 24 Hour 0.68 g/24 h (0.63-2.50) 02/23/18 19:00 Urine Microalbumin 123.1 mg/dL 02/23/18 19:00 Ur Microalbumin 24 Hr 1169 mg/24 h (<30) H 02/23/18 19:00 Ur Total Protein 24 Hr 2114 mg/24 h (<150) H 02/23/18 19:00 Protein/Creat Ratio 24h 3125 mg/g creat (</=84) H 02/23/18 19:00 Urine Total Protein 2225 mg/L (50-240) H 02/23/18 19:00 Urine Albumin (PEP) 71.9 Relative % 02/23/18 19:00 Ur Protein Fractions See note 02/23/18 19:00 BECKY & SPEP Interp See note 02/23/18 06:40 Serum Immunofixation Not detected (Not Detected) 02/23/18 06:40 Complement C3 104.0 mg/dL (88.0-165.0) 02/23/18 06:40 Complement C4 34.0 mg/dL (14.0-44.0) 02/23/18 06:40 - Hospital Course Hospital Course: History of Present Illness: Patient is a 71 yo female with history of CAD s/p CABG, CHF s/p pacemaker placement, DM type 2, CKD, AAA s/p repair presents from Dr. Flannery's office for medical clearance before getting foot surgery on her Left second digit. Patient states that her surgery is set up for Sunday morning. She states that she has had this foot infection for the past week and is taking bactrim for it at home; she admits that the infection is secondary to poor glycemic control given her past history of diabetes. Hospital Course: Patient was admitted to Med/Surg. Foot xray showed soft tissue swelling without acute articular or osseous abnormality. Lower extremity ultrasound showed mildly abnormal right GORDY at rest, distal right SFA. popliteal, and or tibial disease. Podiatry was consulted and following. CT lower extremity was suspicious for osteomyelitis. Patient was on IV Teflaro for antibiotics. ID was consulted. Cardiology was also consulted for cardiac risk stratification. Patient was seen by Nephrology for acute on chronic kidney disease, likely pre- renal etiology. Diuretics were held initially. Patient became hyperkalemic with potassium of 6.5. EKG showed no changes. Was given Kayexylate, Insulin and D50. Potassium supplementation were discontinued. Diuretics were restarted, Potassium improved. VALE also improved and renal function stable. Patient went to the OR for Left foot 2nd digit resection with application of antibiotic beads (see operative report). Patient tolerated the procedure well. Patient was seen by PT who recommended disposition home with services. Wound culture showing no growth. Pathology pending. Per ID can discharge on PO augmentin and doxycycline. Per nephro, patient to decrease Lasix 40mg PO daily, continue with metolazone 2.5 mg daily; Patient needs to carefully monitor weights and edema, if any increase should go back to lasix 80 mg bid. On day of discharge patient is doing well, pain is controlled. She was ambulating and tolerating diet. Patient cleared for discharge home with outpatient follow up with Podiatry, Nephrology and PMD. All questions and concerns addressed. Discharge Medications: Augmentin 500/125mg PO Q12H x 10 days (renally dosed for CrCl <30) Doxycycline 100mg PO BID x 10 days Lasix 40mg PO BID Discharge Diagnosis: L 2nd digit osteomyelitis s/p resection Acute on Chronic Kidney Disease Discharge Exam - Head Exam Head Exam: ATRAUMATIC, NORMAL INSPECTION, NORMOCEPHALIC - Eye Exam Eye Exam: EOMI, Normal appearance Pupil Exam: NORMAL ACCOMODATION, PERRL - ENT Exam ENT Exam: Mucous Membranes Moist - Respiratory Exam Respiratory Exam: Clear to PA & Lateral, NORMAL BREATHING PATTERN, UNREMARKABLE. absent: Decreased Breath Sounds, Rales, Rhonchi, Wheezes, Respiratory Distress - Cardiovascular Exam Cardiovascular Exam: REGULAR RHYTHM, +S1, +S2 - GI/Abdominal Exam GI & Abdominal Exam: Normal Bowel Sounds, Soft. absent: Hyperactive Bowel Sounds, Tenderness Additional comments: +ileostomy - Extremities Exam Extremities exam: normal inspection, pedal pulses present Additional comments: No lower extremity edema - Neurological Exam Neurological exam: Alert, Normal Gait, Oriented x3 - Psychiatric Exam Psychiatric exam: Normal Affect, Normal Mood - Skin Skin Exam: Dry, Normal Color, Warm Discharge Plan - Discharge Medications Prescriptions: Amoxicillin/Clavulanate [Augmentin 500 MG-125 MG] 1 tab PO Q12H #20 tab Doxycycline Hyclate 100 mg PO BID #20 capsule Furosemide [Lasix] 40 mg PO BID #60 tab - Follow Up Plan Condition: STABLE Disposition: HOME/ ROUTINE Instructions: Dangers of Secondhand Smoke, Kidney Failure (DC), Preventing Falls, Wound Infection, Heart Failure (DC) Additional Instructions: 1. Patient clear for discharge home 2. Patient to continue medications, Lasix decreased to 40mg PO BID, Potassium has been held 3. Please have BMP rechecked in 1 week to monitor renal function and electrolytes 4. Continue measuring weights daily 5. Follow up with Podiatry, Nephrology, PMD within 1 week 6. Continue antibiotics as prescribed x 10 days Referrals: Yariel Flannery MD [Primary Care Provider] - Derek Cedeno MD [Staff Provider] - Vinnie Cortés DPM [Staff Provider] - <Sofía Pablo - Last Filed: 02/28/18 15:43> Provider - Provider Date of Admission: 02/22/18 08:16 Attending physician: Sofía Pablo MD Primary care physician: Yariel Flannery MD Hospital Course - Lab Results Lab Results: Micro Results 02/25/18 18:50 Toe Gram Stain - Final 02/25/18 18:50 Toe Anaerobic Culture - Final NO ANAEROBES ISOLATED. 02/25/18 18:50 Toe Wound Culture - Preliminary No growth. 02/25/18 18:50 Other: Please Indicate Tissue Culture - Preliminary NO GROWTH AFTER 48 HOURS Most Recent Lab Values WBC 7.4 10^3/ul (4.5-11.0) 02/27/18 07:00 RBC 3.47 10^6/uL (3.5-6.1) L 02/27/18 07:00 Hgb 10.7 g/dL (12.0-16.0) L 02/27/18 07:00 Hct 33.2 % (36.0-48.0) L 02/27/18 07:00 MCV 95.7 fl (80.0-105.0) 02/27/18 07:00 MCH 30.8 pg (25.0-35.0) 02/27/18 07:00 MCHC 32.2 g/dl (31.0-37.0) 02/27/18 07:00 RDW 12.9 % (11.5-14.5) 02/27/18 07:00 Plt Count 185 10^3/uL (120.0-450.0) 02/27/18 07:00 MPV 9.3 fl (7.0-11.0) 02/27/18 07:00 Gran % 69.4 % (50.0-68.0) H 02/27/18 07:00 Lymph % (Auto) 17.3 % (22.0-35.0) L 02/27/18 07:00 Perkins % (Auto) 5.5 % (1.0-6.0) 02/27/18 07:00 Eos % (Auto) 7.4 % (1.5-5.0) H 02/27/18 07:00 Baso % (Auto) 0.4 % (0.0-3.0) 02/27/18 07:00 Gran # 5.16 (1.4-6.5) 02/27/18 07:00 Lymph # (Auto) 1.3 (1.2-3.4) 02/27/18 07:00 Perkins # (Auto) 0.4 (0.1-0.6) 02/27/18 07:00 Eos # (Auto) 0.6 (0.0-0.7) 02/27/18 07:00 Baso # (Auto) 0.03 K/mm3 (0.0-2.0) 02/27/18 07:00 PT 12.6 SECONDS (9.4-12.5) H 02/21/18 19:55 INR 1.10 (0.93-1.08) H 02/21/18 19:55 APTT 41.8 Seconds (25.1-36.5) H 02/21/18 19:55 Sodium 136 mmol/L (132-148) 02/27/18 07:00 Potassium 4.2 mmol/L (3.6-5.0) 02/27/18 07:00 Chloride 105 mmol/L (98-107) 02/27/18 07:00 Carbon Dioxide 20 mmol/L (21-33) L 02/27/18 07:00 Anion Gap 15 (10-20) 02/27/18 07:00 BUN 46 mg/dL (7-21) H 02/27/18 07:00 Creatinine 2.4 mg/dl (0.7-1.2) H 02/27/18 07:00 Est GFR ( Amer) 24 02/27/18 07:00 Est GFR (Non-Af Amer) 20 02/27/18 07:00 POC Glucose (mg/dL) 150 mg/dL (65-110) H 02/27/18 16:03 Random Glucose 125 mg/dL (70-110) H 02/27/18 07:00 Hemoglobin A1c 6.5 % (4.2-6.5) 02/22/18 08:00 Uric Acid 8.1 mg/dL (2.5-6.2) H 02/23/18 06:40 Calcium 8.5 mg/dL (8.4-10.5) 02/27/18 07:00 Phosphorus 4.1 mg/dL (2.5-4.5) 02/23/18 06:40 Magnesium 1.9 mg/dL (1.7-2.2) 02/25/18 06:15 Iron 56 ug/dL (45-180) 02/23/18 06:40 TIBC 230 ug/dL (265-497) L 02/23/18 06:40 % Saturation 24 % (20-55) 02/23/18 06:40 Ferritin 242.0 ng/mL 02/23/18 06:40 Total Bilirubin 0.3 mg/dL (0.2-1.3) 02/27/18 07:00 AST 26 U/L (14-36) 02/27/18 07:00 ALT 31 U/L (7-56) 02/27/18 07:00 Alkaline Phosphatase 87 U/L (38-126) 02/27/18 07:00 Total Creatine Kinase 105 U/L (35-230) 02/24/18 20:00 Total Protein 6.4 g/dL (5.8-8.3) 02/27/18 07:00 Total Protein (PEP) 6.3 g/dL (6.1-8.1) 02/23/18 06:40 Albumin 3.5 g/dL (3.0-4.8) 02/27/18 07:00 Albumin (PEP) 3.1 g/dL (3.8-4.8) L 02/23/18 06:40 Globulin 3.0 gm/dL 02/27/18 07:00 Albumin/Globulin Ratio 1.2 (1.1-1.8) 02/27/18 07:00 Zepvc-8-Cpatsqvpl 3.2 Relative % 02/23/18 19:00 Blvkw-0-Fiajfsqwq 5.0 Relative % 02/23/18 19:00 Beta Globulins 8.2 Relative % 02/23/18 19:00 Xehj-9-Kdqlndqo 0.3 g/dL (0.4-0.6) L 02/23/18 06:40 Fxtk-6-Yspbbepv 0.3 g/dL (0.2-0.5) 02/23/18 06:40 Gamma Globulins 11.8 Relative % 02/23/18 19:00 Abnorm Protein Band 1 TEST NOT PERFORMED 02/23/18 06:40 Abnorm Protein Band 2 TEST NOT PERFORMED 02/23/18 06:40 Abnorm Protein Band 3 TEST NOT PERFORMED 02/23/18 06:40 25-OH Vitamin D Total 15.7 NG/ML (30.0-100.0) L 02/27/18 08:30 PTH Intact Whole Molec 122 pg/mL (14-64) H 02/23/18 06:40 Urine Color yellow (YELLOW) 02/24/18 01:30 Urine Appearance Slight-cloudy (CLEAR) 02/24/18 01:30 Urine pH 5.5 (4.7-8.0) 02/24/18 01:30 Ur Specific [place] 1.020 (1.005-1.035) 02/24/18 01:30 Urine Protein >=300 mg/dL (<30 mg/dL) H 02/24/18 01:30 Urine Glucose (UA) Negative mg/dL (NEGATIVE) 02/24/18 01:30 Urine Ketones Negative mg/dL (NEGATIVE) 02/24/18 01:30 Urine Blood Small (NEGATIVE) H 02/24/18 01:30 Urine Nitrate Negative (NEGATIVE) 02/24/18 01:30 Urine Bilirubin Negative (NEGATIVE) 02/24/18 01:30 Urine Urobilinogen 0.2 E.U./dL (<1 E.U./dL) 02/24/18 01:30 Ur Leukocyte Esterase Trace Collins/uL (NEGATIVE) H 02/24/18 01:30 Urine RBC 15 - 20 /hpf (0-2) 02/24/18 01:30 Urine WBC 2 - 5 /hpf (0-6) 02/24/18 01:30 Ur Epithelial Cells 6 - 8 /hpf (0-5) 02/24/18 01:30 Amorphous Sediment Small 02/24/18 01:30 Urine Bacteria Trace (NEG) 02/24/18 01:30 Ur Random Creatinine 62 mg/dL 02/24/18 01:30 Ur Random Urea Nitrogn 454 mg/dL 02/24/18 01:30 Ur 24 Hour Volume 0.95 liters 02/23/18 19:00 Urine Creatinine 0.71 g/L 02/23/18 19:00 Ur Creatinine 24 Hour 0.68 g/24 h (0.63-2.50) 02/23/18 19:00 Urine Microalbumin 123.1 mg/dL 02/23/18 19:00 Ur Microalbumin 24 Hr 1169 mg/24 h (<30) H 02/23/18 19:00 Ur Total Protein 24 Hr 2114 mg/24 h (<150) H 02/23/18 19:00 Protein/Creat Ratio 24h 3125 mg/g creat (</=84) H 02/23/18 19:00 Urine Total Protein 2225 mg/L (50-240) H 02/23/18 19:00 Urine Albumin (PEP) 71.9 Relative % 02/23/18 19:00 Ur Protein Fractions See note 02/23/18 19:00 BECKY & SPEP Interp See note 02/23/18 06:40 Serum Immunofixation Not detected (Not Detected) 02/23/18 06:40 Complement C3 104.0 mg/dL (88.0-165.0) 02/23/18 06:40 Complement C4 34.0 mg/dL (14.0-44.0) 02/23/18 06:40 Attending/Attestation - Attestation I have personally seen and examined this patient.: Yes I have fully participated in the care of the patient.: Yes I have reviewed all pertinent clinical information, including history, physical exam and plan: Yes Notes (Text): 02/28/18 15:40 Medical record note made by the resident after discussion with my direction and input after the patient was personally seen and examined by me. I have reviewed the chart and agree that the record accurately reflects by personal performance of the history, physical exam, data review, and medical decision-making, in the course for the patient. I have also personally directed the plan of care. 71 year old female with PMH of CAD s/p CABG, CHF diabetes, CKD and AAA s/p repair who presented with left second digit foot infection. CT lower extremity is suspicious for osteomyelitis..She is SP Left foot 2nd digit resection with application of antibiotic beads day# 2. Cultures are negative for any frowth.As per Podiatry notes, the margins were clear at the time of amputation. Case was discussed with ID and patient will be discharged home on oral Augmentrin and dixyxycline.She will follow up with Podiatry and PCP. Acute on chronic renal failure is improving.Creatinin has come down to 2.4.Hyperkalemia os resolved.,.Nephrology is following. Management plan was discussed in detail with patient. Education was provided.
[2018-02-27 15:03] VITALS: PULSE 72; TEMP 97.9
--- NOTE | 2018-02-27 15:30 | CP.PCM.PN ---
Subjective - Date & Time of Evaluation Date of Evaluation: 02/27/18 Time of Evaluation: 15:26 - Subjective Subjective: Podiatry progress note: Dr. Cortés 71 year old female patient seen at bedside 2 days s/p L foot partial 2nd digit amputation. Denies any pain to the left foot. Denies any overnight events. Denies any recent F/N/V/C/SOB/CP/headache. Objective - Vital Signs/Intake and Output Vital Signs (last 24 hours): Temp Pulse Resp BP Pulse Ox 97.9 F 72 20 130/71 97 02/27/18 15:02 02/27/18 15:02 02/27/18 15:02 02/27/18 15:02 02/27/18 15:02 Intake and Output: 02/27/18 02/27/18 06:59 18:59 Intake Total 720 Output Total 100 Balance 620 - Medications Medications: Current Medications Acetaminophen (Tylenol 325mg Tab) 650 mg PO Q6H PRN PRN Reason: Pain, moderate (4-7) Last Admin: 02/25/18 23:43 Dose: 650 mg Ascorbic Acid (Vitamin C 500 Mg Tab) 500 mg PO DAILY [facility] Last Admin: 02/27/18 09:50 Dose: 500 mg Aspirin (Ecotrin) 81 mg PO DAILY [facility] Last Admin: 02/27/18 09:47 Dose: 81 mg Atorvastatin Calcium (Lipitor) 10 mg PO DIN [facility] Last Admin: 02/26/18 17:02 Dose: 10 mg Cholecalciferol (Vitamin D) 1,000 intlu PO DAILY [facility] Last Admin: 02/27/18 09:49 Dose: 1,000 intlu Cyanocobalamin (Vitamin B12 1000 Mcg Tab) 1,000 mcg PO BID [facility] Last Admin: 02/27/18 09:50 Dose: 1,000 mcg Furosemide (Lasix) 40 mg PO BID [facility] Heparin Sodium (Porcine) (Heparin) 5,000 units SC Q12 [facility]ADHAVI PRN Reason: Protocol Last Admin: 02/27/18 09:47 Dose: 5,000 units Ceftaroline Fosamil 200 mg/ (Sodium Chloride) 50 mls @ 50 mls/hr IVPB Q12H [facility]ADHAVI PRN Reason: Protocol Stop: 03/01/18 14:01 Last Admin: 02/27/18 14:33 Dose: 50 mls/hr Insulin Human Regular (Humulin R Med) 0 units SC ACHS [facility] PRN Reason: Protocol Last Admin: 02/27/18 11:58 Dose: 3 units Isosorbide Dinitrate (Isordil) 60 mg PO DAILY [facility] Last Admin: 02/27/18 09:50 Dose: 60 mg Metolazone (Zaroxolyn) 2.5 mg PO DAILY [facility] Last Admin: 02/27/18 09:50 Dose: 2.5 mg Metoprolol Tartrate (Lopressor) 100 mg PO BID [facility] Last Admin: 02/27/18 09:49 Dose: 100 mg Multivitamins (Thera Tab) 1 tab PO DAILY [facility] Last Admin: 02/27/18 09:49 Dose: 1 tab Mupirocin (Bactroban Ointment) 1 gm TOP DAILY [facility] Last Admin: 02/26/18 10:00 Dose: Not Given Mupirocin (Bactroban Ointment) 1 gm TOP BID [facility] Last Admin: 02/26/18 19:04 Dose: Not Given Magnesium Glycinate [Mag Glycinate] 500 Mg (Home Med) 500 mg PO DAILY [facility] Last Admin: 02/26/18 18:17 Dose: Not Given Oxycodone/Acetaminophen (Percocet 5/325 Mg Tab) 1 tab PO Q4H PRN PRN Reason: Pain, moderate (4-7) Stop: 02/28/18 19:23 Last Admin: 02/27/18 09:48 Dose: 1 tab Oxycodone/Acetaminophen (Percocet 5/325 Mg Tab) 2 tab PO Q4H PRN PRN Reason: Pain, severe (8-10) Stop: 02/28/18 19:23 Last Admin: 02/26/18 23:59 Dose: 2 tab Pantoprazole Sodium (Protonix Ec Tab) 40 mg PO 0600 [facility] Last Admin: 02/27/18 05:33 Dose: Not Given Primidone (Mysoline) 50 mg PO HS [facility] Last Admin: 02/26/18 22:24 Dose: 50 mg - Labs Labs: 02/27/18 07:00 02/27/18 07:00 PT 12.6 SECONDS (9.4-12.5) H 02/21/18 19:55 INR 1.10 (0.93-1.08) H 02/21/18 19:55 APTT 41.8 Seconds (25.1-36.5) H 02/21/18 19:55 - Constitutional Appears: Well, Non-toxic, No Acute Distress - Extremities Exam Additional comments: left focused exam: Vasc: DP/PT pulses palpable 2/4. Temperature gradient warm to cool. CFT < 3 sec x 3 digits Derm: Surgical site noted to 2nd digit amputation site with prolene sutures intact, skin edges well coapted, no signs of dehiscence. Mild interdigital maceration noted between 2nd digit amp site and 3rd digit. No active drainage or purulence, no malodor, no fluctuance. No other open lesions present Neuro: Protective sensation grossly diminished Ortho: No tenderness to palpation of surgical site. Hallux and 2nd digit amputations noted - Neurological Exam Neurological Exam: Alert, Awake, Oriented x3 - Psychiatric Exam Psychiatric exam: Normal Affect, Normal Mood Assessment and Plan - Assessment and Plan (Free Text) Assessment: 72 y/o female 2 days s/p left foot partial 2nd digit amputation Plan: Patient seen and evaluated Discussed plan with attending Dr. Cortés Labs, vitals and charts reviewed - afebrile, WBC 7.4 Wound cleaned with saline and dressed with betadine, Adaptic and DSD Pt allowed full WB with use of surgical shoe at all times ambulating Upon d/c, patient to follow up with Dr. Cortés's office within 1 week
--- NOTE | 2018-02-27 15:57 | CP.PCM.PN ---
Subjective - Date & Time of Evaluation Date of Evaluation: 02/27/18 Time of Evaluation: 12:40 - Subjective Subjective: Comfortable, no fevers, had amputation of left 2nd toe of the foot done. No diarrhea. Objective - Vital Signs/Intake and Output Vital Signs (last 24 hours): Temp Pulse Resp BP Pulse Ox 98.6 F 76 20 143/68 97 02/27/18 08:16 02/27/18 08:16 02/27/18 08:16 02/27/18 09:48 02/27/18 08:16 Intake and Output: 02/27/18 02/27/18 06:59 18:59 Intake Total 720 Output Total 100 Balance 620 - Medications Medications: Current Medications Acetaminophen (Tylenol 325mg Tab) 650 mg PO Q6H PRN PRN Reason: Pain, moderate (4-7) Last Admin: 02/25/18 23:43 Dose: 650 mg Ascorbic Acid (Vitamin C 500 Mg Tab) 500 mg PO DAILY [facility] Last Admin: 02/27/18 09:50 Dose: 500 mg Aspirin (Ecotrin) 81 mg PO DAILY [facility] Last Admin: 02/27/18 09:47 Dose: 81 mg Atorvastatin Calcium (Lipitor) 10 mg PO DIN [facility] Last Admin: 02/26/18 17:02 Dose: 10 mg Cholecalciferol (Vitamin D) 1,000 intlu PO DAILY [facility] Last Admin: 02/27/18 09:49 Dose: 1,000 intlu Cyanocobalamin (Vitamin B12 1000 Mcg Tab) 1,000 mcg PO BID [facility] Last Admin: 02/27/18 09:50 Dose: 1,000 mcg Furosemide (Lasix) 40 mg PO BID [facility] Heparin Sodium (Porcine) (Heparin) 5,000 units SC Q12 [facility] PRN Reason: Protocol Last Admin: 02/27/18 09:47 Dose: 5,000 units Ceftaroline Fosamil 200 mg/ (Sodium Chloride) 50 mls @ 50 mls/hr IVPB Q12H [facility] PRN Reason: Protocol Stop: 03/01/18 14:01 Last Admin: 02/27/18 03:13 Dose: 50 mls/hr Insulin Human Regular (Humulin R Med) 0 units SC ACHS [facility] PRN Reason: Protocol Last Admin: 02/27/18 07:38 Dose: Not Given Isosorbide Dinitrate (Isordil) 60 mg PO DAILY [facility] Last Admin: 02/27/18 09:50 Dose: 60 mg Metolazone (Zaroxolyn) 2.5 mg PO DAILY [facility] Last Admin: 02/27/18 09:50 Dose: 2.5 mg Metoprolol Tartrate (Lopressor) 100 mg PO BID [facility] Last Admin: 02/27/18 09:49 Dose: 100 mg Multivitamins (Thera Tab) 1 tab PO DAILY [facility] Last Admin: 02/27/18 09:49 Dose: 1 tab Mupirocin (Bactroban Ointment) 1 gm TOP DAILY [facility] Last Admin: 02/26/18 10:00 Dose: Not Given Mupirocin (Bactroban Ointment) 1 gm TOP BID [facility] Last Admin: 02/26/18 19:04 Dose: Not Given Magnesium Glycinate [Mag Glycinate] 500 Mg (Home Med) 500 mg PO DAILY [facility] Last Admin: 02/26/18 18:17 Dose: Not Given Oxycodone/Acetaminophen (Percocet 5/325 Mg Tab) 1 tab PO Q4H PRN PRN Reason: Pain, moderate (4-7) Stop: 02/28/18 19:23 Last Admin: 02/27/18 09:48 Dose: 1 tab Oxycodone/Acetaminophen (Percocet 5/325 Mg Tab) 2 tab PO Q4H PRN PRN Reason: Pain, severe (8-10) Stop: 02/28/18 19:23 Last Admin: 02/26/18 23:59 Dose: 2 tab Pantoprazole Sodium (Protonix Ec Tab) 40 mg PO 0600 [facility] Last Admin: 02/27/18 05:33 Dose: Not Given Primidone (Mysoline) 50 mg PO [facility] Last Admin: 02/26/18 22:24 Dose: 50 mg - Labs Labs: 02/27/18 07:00 02/27/18 07:00 PT 12.6 SECONDS (9.4-12.5) H 02/21/18 19:55 INR 1.10 (0.93-1.08) H 02/21/18 19:55 APTT 41.8 Seconds (25.1-36.5) H 02/21/18 19:55 - Constitutional Appears: Non-toxic, Chronically Ill - Head Exam Head Exam: NORMAL INSPECTION - ENT Exam ENT Exam: Mucous Membranes Moist - Respiratory Exam Respiratory Exam: Decreased Breath Sounds - Cardiovascular Exam Cardiovascular Exam: +S1, +S2 - GI/Abdominal Exam GI & Abdominal Exam: Soft. absent: Tenderness - Extremities Exam Additional comments: left foot with dressings in place Assessment and Plan - Assessment and Plan (Free Text) Plan: Assessment Consider left foot 2nd digit skin and skin structure infection R/O osteomyelitis S/P amputation POD #1 CAD S/P CABG abdominal aortic aneurysm S/P repair S/P cholecystectomy S/P pacemaker placement DM S/P left toe amputation Plan continue Teflaro pending OR cultures and pathology discussed with Dr. Cedeno about patient's hyperkalemia which may be from Teflaro - serum potassium today is normal at 4.2 - will continue to monitor clinically
[2018-02-27 16:30] VITALS: BP 122/58
--- NOTE | 2018-02-27 19:00 | CP.PCM.PN ---
Objective - Vital Signs/Intake and Output Vital Signs (last 24 hours): Temp Pulse Resp BP Pulse Ox 97.9 F 72 20 122/58 L 97 02/27/18 15:02 02/27/18 15:02 02/27/18 15:02 02/27/18 16:29 02/27/18 15:02 - Labs Labs: 02/27/18 07:00 02/27/18 07:00 PT 12.6 SECONDS (9.4-12.5) H 02/21/18 19:55 INR 1.10 (0.93-1.08) H 02/21/18 19:55 APTT 41.8 Seconds (25.1-36.5) H 02/21/18 19:55 Assessment and Plan (1) VALE (acute kidney injury) Status: Acute (2) Hyperkalemia Status: Acute (3) CKD (chronic kidney disease) stage 3, GFR 30-59 ml/min Status: Chronic (4) Proteinuria Status: Chronic (5) CHF (congestive heart failure) Status: Chronic (6) Toe infection Status: Acute
[2018-02-28 09:59] LABS: COLLECTION TIME 24 Hours; TOTAL VOLUME 0.95 Liters
[2018-02-28 10:00] LABS: COLLECTION TIME 24 Hours
== END 2018-02-27 17:53 | disposition home or self-care (01) | DRG 617 ==
LOC: ED 18:09 → ERH 21:48 → 5RSO 02-22 00:15 → OBSVTOIN 02-22 08:16
PROVIDERS: ADMIT Hospitalist; ATTEND Internal Medicine
PROC: 0Y6S0Z2 Detachment at Left 2nd Toe, Mid, Open Approach (ICD-10-PCS; principal; 2018-02-25 18:00)
DX: E11.621 Type 2 diabetes mellitus with foot ulcer (principal); I13.0 Hypertensive heart and chronic kidney disease with heart failure and stage 1 through stage 4 chronic kidney disease, or unspecified chronic kidney disease; I42.0 Dilated cardiomyopathy; I50.20 Unspecified systolic (congestive) heart failure; M86.8X7 Other osteomyelitis, ankle and foot; L03.039 Cellulitis of unspecified toe; N17.9 Acute kidney failure, unspecified; E11.22 Type 2 diabetes mellitus with diabetic chronic kidney disease; E11.51 Type 2 diabetes mellitus with diabetic peripheral angiopathy without gangrene; E11.69 Type 2 diabetes mellitus with other specified complication; E87.5 Hyperkalemia; I25.10 Atherosclerotic heart disease of native coronary artery without angina pectoris; I25.5 Ischemic cardiomyopathy; I71.4 Abdominal aortic aneurysm, without rupture; L97.529 Non-pressure chronic ulcer of other part of left foot with unspecified severity; M19.90 Unspecified osteoarthritis, unspecified site; N18.3 Chronic kidney disease, stage 3 (moderate); Z79.82 Long term (current) use of aspirin; Z80.3 Family history of malignant neoplasm of breast; Z80.6 Family history of leukemia; Z80.8 Family history of malignant neoplasm of other organs or systems; Z82.49 Family history of ischemic heart disease and other diseases of the circulatory system; Z86.79 Personal history of other diseases of the circulatory system; Z87.891 Personal history of nicotine dependence; Z89.422 Acquired absence of other left toe(s); Z90.49 Acquired absence of other specified parts of digestive tract; Z93.2 Ileostomy status; Z95.0 Presence of cardiac pacemaker; Z95.1 Presence of aortocoronary bypass graft; Z95.810 Presence of automatic (implantable) cardiac defibrillator

== ENCOUNTER 2018-03-17 11:01 | Inpatient (IN) | payer MEDICARE ==
[2018-03-17 11:01] VITALS: PULSE 92
[2018-03-17 11:54] VITALS: BMI 25.3
[2018-03-17] MEDS ORDERED: Sodium Chloride 0.9% 1,000 ML IV STA (11:58)
[2018-03-17 12:18] LABS: BASO # 0.02 K/mm3 (0.0-2.0); BASO % 0.1 % (0.0-3.0); EOS % 0.3 % (1.5-5.0); GRAN # 12.13 (1.4-6.5); GRAN % 81.1 % (50.0-68.0); HEMOGLOBIN 13.2 g/dL (12.0-16.0); LYMPH # 1.7 (1.2-3.4); LYMPH % 11.3 % (22.0-35.0); MEAN CELL VOLUME 91.4 fl (80.0-105.0); MEAN CORPUSCULAR HEMOGLOBIN 31.4 pg (25.0-35.0); MEAN CORPUSCULAR HGB CONC 34.4 g/dl (31.0-37.0); MEAN PLATELET VOLUME 10.9 fl (7.0-11.0); MONO # 1.1 (0.1-0.6); MONO % 7.2 % (1.0-6.0); RBC 4.2 10^6/uL (3.5-6.1)
[2018-03-17 12:34] LABS: ALBUMIN 3.5 g/dL (3.0-4.8); CALCIUM 8.6 mg/dL (8.4-10.5)
[2018-03-17] MEDS ORDERED: Morphine 2 mg/ml ISec IVP STA (12:58)
--- NOTE | 2018-03-17 12:59 | CT ---
PROCEDURE: CT Abdomen and Pelvis without intravenous contrast HISTORY: diffuse abdominal pain COMPARISON: 01/22/2017 abdominal ultrasound. 08/14/2014 CT abdomen and pelvis. TECHNIQUE: Unenhanced study. Neither oral nor intravenous contrast administered. Sensitivity and specificity for acute inflammatory processes limited by the absence of oral and intravenous contrast. Radiation dose: Total exam DLP = 731.96 mGy-cm. This CT exam was performed using one or more of the following dose reduction techniques: Automated exposure control, adjustment of the mA and/or kV according to patient size, and/or use of iterative reconstruction technique. FINDINGS: LOWER THORAX: Unremarkable. LIVER: Unremarkable. No gross lesion or ductal dilatation. GALLBLADDER AND BILE DUCTS: Status post cholecystectomy. No abnormality is seen in the gallbladder fossa. PANCREAS: Unremarkable. No gross lesion or ductal dilatation. SPLEEN: Unremarkable. ADRENALS: Unremarkable. No mass. KIDNEYS AND URETERS: Right kidney: Multiple simple cysts. 4 mm upper pole nonobstructing calculus. Left kidney: Multiple simple exophytic cysts. Unremarkable. No hydronephrosis. No solid mass. VASCULATURE: Stable could appearance, configuration of [place] abdominal aortic aneurysm and stent grafts. Maximum measurements of the [place] aorta 6.3 x 7.1 cm. BOWEL: Large ventral hernia similar finding identified previously. Right lower quadrant ostomy. This appears to be unremarkable without evidence of incarceration or proximal obstruction. Fecal impaction without mechanical obstruction. APPENDIX: Unremarkable. Normal appendix. PERITONEUM: Unremarkable. No free fluid. No free air. LYMPH NODES: Unremarkable. No enlarged lymph nodes. BLADDER: Unremarkable. REPRODUCTIVE: Unremarkable. BONES: No acute fracture. Severe degenerative changes right hip with subchondral sclerosis and cyst formation in the acetabulum and femoral head. Kyphosis related to compression deformity L1 vertebral body a new finding compared to the prior CT 08/14/2014. OTHER FINDINGS: None. IMPRESSION: No acute findings related to/accounting for the clinical presentation. Additional benign and/or incidental findings described above. Limitations of the current examination: Absence of oral and intravenous contrast given the findings on the current study an the clinical presentation.
--- NOTE | 2018-03-17 13:15 | ED PDOC ---
Arrival/HPI - General Chief Complaint: Abdominal Pain Time Seen by Provider: 03/17/18 11:41 Historian: Patient - History of Present Illness Narrative History of Present Illness (Text): 03/17/18 11:55 A 73 year old female, whose past medical history includes CAD, stents, diabetes , and hypertension, presents to the emergency department complaining of increasing abdominal pain 6 days. Patient reports also experiencing nausea and appetite changes. Mentions having recent toe amputation 2 weeks ago. Patient denies any fever, vomiting, diarrhea, hematuria, bloody stool, or any other complaints at this time. PMD: Dr. Flannery Time/Duration: < week (6 days) Past Medical History - Provider Review Nursing Documentation Reviewed: Yes - Infectious Disease Hx of Infectious Diseases: None - Tetanus Immunization Tetanus Immunization: Unknown - Cardiac Hx Pacemaker: Yes - Pulmonary Hx Respiratory Disorders: No - Neurological Hx Neurological Disorder: No - HEENT Hx Cataracts: Yes (bilateral laser sx) - Renal Hx Renal Disorder: Yes - Endocrine/Metabolic Hx Diabetes Mellitus Type 2: Yes - Hematological/Oncological Hx Blood Transfusions: No Hx Blood Transfusion Reaction: No - Integumentary Other/Comment: STage 3 sacral ulcers. BLE redness w/ scattered scabs. Under breasts folds redness. Bilateral under belly Folds redness skin excoriated - Musculoskeletal/Rheumatological Hx Arthritis: Yes - Gastrointestinal Hx Gastrointestinal Disorders: Yes (umbilical hernia) Hx Ileostomy: Yes - Genitourinary/Gynecological Hx Genitourinary Disorders: No - Psychiatric Hx Psychophysiologic Disorder: No Hx Substance Use: No - Surgical History Hx Amputation: Yes (left foot 2nd digit) - Anesthesia Hx Anesthesia Reactions: No Hx Malignant Hyperthermia: No - Suicidal Assessment Feels Threatened In Home Enviroment: No Family/Social History - Physician Review Nursing Documentation Reviewed: Yes Family/Social History: No Known Family HX Smoking Status: Former Smoker Hx Alcohol Use: No Hx Substance Use: No Hx Substance Use Treatment: No Allergies/Home Meds Allergies/Adverse Reactions: Allergies shellfish derived Allergy (Verified 02/19/17 13:57) ANAPHYLAXIS Home Medications: Home Meds Medication Instructions Recorded Confirmed Ascorbic Acid [Vitamin C 500 mg 500 mg PO DAILY 02/19/17 03/17/18 Tab] Aspirin [Ecotrin] 81 mg PO DAILY 02/19/17 03/17/18 Cholecalciferol [Vitamin D 1000 IU] 1,000 iu PO DAILY 02/19/17 03/17/18 Cyanocobalamin (Vitamin B-12) 1,000 mcg PO BID 02/19/17 03/17/18 [B-12] Insulin Human NPH [Humulin N] 6 units SC BID 02/19/17 03/17/18 Insulin Human Regular [HumuLIN R] 6 units SC ACHS 02/19/17 03/17/18 Isosorbide Dinitrate 60 mg PO DAILY 02/19/17 03/17/18 Magnesium Glycinate [Mag Glycinate] 500 mg PO DAILY 02/19/17 03/17/18 Metoprolol Tartrate [Lopressor] 100 mg PO BID 02/19/17 03/17/18 Multivitamin [Multivitamins] 1 tab PO DAILY 02/19/17 03/17/18 Pantoprazole Sodium [Protonix] 40 mg PO 0700 02/19/17 03/17/18 Primidone [Mysoline] 50 mg PO HS 02/19/17 03/17/18 metOLazone [Zaroxolyn] 2.5 mg PO DAILY 02/19/17 03/17/18 Pravastatin Sodium [Pravachol] 20 mg PO DIN 05/17/17 03/17/18 Review of Systems - Physician Review All systems were reviewed & negative as marked: Yes - Review of Systems Constitutional: absent: Fevers Gastrointestinal: Abdominal Pain, Nausea, Appetite Changes. absent: Stool Changes (no bloody stool), Diarrhea, Vomiting Genitourinary Female: absent: Hematuria Physical Exam Vital Signs Temp Pulse Resp BP Pulse Ox 03/17/18 13:39 80 18 151/78 H 100 03/17/18 11:02 97.7 F 67 18 119/74 100 Temperature: Afebrile Blood Pressure: Normal Pulse: Regular Respiratory Rate: Normal Appearance: Positive for: Well-Appearing, Non-Toxic, Comfortable Pain Distress: None Mental Status: Positive for: Alert and Oriented X 3 - Systems Exam Head: Present: Atraumatic, Normocephalic Pupils: Present: PERRL Extroacular Muscles: Present: EOMI Conjunctiva: Present: Normal Mouth: Present: Moist Mucous Membranes Respiratory/Chest: Present: Clear to Auscultation, Good Air Exchange. No: Respiratory Distress, Accessory Muscle Use Cardiovascular: Present: Regular Rate and Rhythm, Normal S1, S2. No: Murmurs Abdomen: Present: Tenderness (diffusely tender ecchymosis to left side) Rectal: Present: Other (normal color stool) Upper Extremity: Present: Normal Inspection. No: Cyanosis, Edema Lower Extremity: Present: Normal Inspection. No: Edema Neurological: Present: GCS=15, CN II-XII Intact, Speech Normal Skin: Present: Warm, Dry, Normal Color. No: Rashes, Other (no skin infections) Psychiatric: Present: Alert, Oriented x 3, Normal Insight, Normal Concentration Medical Decision Making ED Course and Treatment: 03/17/18 11:58 Impression: 73 year old female with increasing abdominal pain, nausea, and appetite changes. Physical exam shows diffusely tender ecchymosis to left side secondary to heparin injection from previous admission; no skin infection; normal color stool; no other acute findings on examination. Plan: -- Abd/Pelvis CT -- Labs -- Zofran -- IV Fluids -- Urinalysis -- Urine Culture -- Reassess and disposition Prior Visits: Notes and results from previous visits were reviewed. Patient was last seen in the emergency department on 02/21/2018 for medical clearance to be admitted for foot surgery. Patient was admitted. Progress Notes: 03/17/2018 12:57 Abd/Pelvis CT FINDINGS: LOWER THORAX: Unremarkable. LIVER: Unremarkable. No gross lesion or ductal dilatation. GALLBLADDER AND BILE DUCTS: Status post cholecystectomy. No abnormality is seen in the gallbladder fossa. PANCREAS: Unremarkable. No gross lesion or ductal dilatation. SPLEEN: Unremarkable. ADRENALS: Unremarkable. No mass. KIDNEY AND URETERS: Right kidney: Multiple simple cysts. 4mm upper pole nonobstructing calculus. Left kidney: Multiple simple exophytic cysts. Unremarkable. No hydroneprosis. No solid mass. VASCULATURE: Stable could appearance, configuration of [place] abdominal aoritc anerysm and stent grafts. maximum measurements of the [place] aortic 6.3 x 7.1 cm. BOWEL: Large ventral hernia similar finding identified previously. Right lower quadrant ostomy. This appears to be unremarkable without evidence of incarceration or proximal obstruction. Fecal impaction without mechanical obstruction. APPENDIX: Unremarkable. Normal appendix. PERITONEUM: Unremarkable. No free fluid. No free air. LYMPH NODES: Unremarkable. No enlarged lymph nodes. BLADDER: Unremarkable. REPRODUCTIVE: Unremarkable. bones: No acute fracture. Severe degenerative changes right hip with subchondral scelorsis and cyst formation in the acetabulum and femoral head. Kyphosis related to compression deformity L1 vertebral body a new finding compared to the prior CT 08/14/2014. OTHER FINDINGS: None. IMPRESSION: No acute findings related to/accounting for the clinical presentation. Additional benig and/or incidental findings described above. Limitattions of the current examination: Absence of oral and intravenous contrast given the findings on the current study and the clinical presentation. Dictator: Erich Oconnor MD 03/17/2018 13:32 Patient known to have pancreatitis in the past. Patient to be admitted to hospitalist on medical floor. - Lab Interpretations Lab Results: 03/17/18 12:00 03/17/18 12:00 Lab Results 03/17/18 12:00: Triglycerides 101, Cholesterol 100 L, LDL Cholesterol Direct 43 , HDL Cholesterol 35 03/17/18 12:00: Sodium 137, Potassium 3.8, Chloride 96 L, Carbon Dioxide 24, Anion Gap 21 H, BUN 106 H, Creatinine 2.3 H, Est GFR ( Amer) 25, Est GFR (Non-Af Amer) 21, Random Glucose 195 H, Calcium 8.6, Magnesium 1.8, Total Bilirubin 0.8, AST 31, ALT 27, Alkaline Phosphatase 211 H D, Total Protein 7.0, Albumin 3.5, Globulin 3.4, Albumin/Globulin Ratio 1.0 L, Lipase 2873 H 03/17/18 12:00: WBC 15.0 H D, RBC 4.20, Hgb 13.2 D, Hct 38.4, MCV 91.4 D, MCH 31.4, MCHC 34.4, RDW 13.0, Plt Count 196, MPV 10.9, Gran % 81.1 H, Lymph % (Auto ) 11.3 L, [place] % (Auto) 7.2 H, Eos % (Auto) 0.3 L, Baso % (Auto) 0.1, Gran # 12.13 H, Lymph # (Auto) 1.7, [place] # (Auto) 1.1 H, Eos # (Auto) 0.0, Baso # (Auto ) 0.02 I have reviewed the lab results: Yes - RAD Interpretation Radiology Orders: 03/17/18 11:58 ABD & PELVIS W/O PO OR IV CONT [CT] Stat - Medication Orders Current Medication Orders: Amoxicillin/Clavulanate Potassium (Augmentin 500 Mg-125 Mg Tab) 1 tab PO Q12H [facility] PRN Reason: Protocol Last Admin: 03/17/18 18:11 Dose: 1 tab Ascorbic Acid (Vitamin C 500 Mg Tab) 500 mg PO DAILY [facility] Aspirin (Ecotrin) 81 mg PO DAILY [facility] Atorvastatin Calcium (Lipitor) 10 mg PO DIN [facility] Last Admin: 03/17/18 18:06 Dose: 10 mg Cholecalciferol (Vitamin D) 1,000 intlu PO DAILY [facility] Cyanocobalamin (Vitamin B12 1000 Mcg Tab) 1,000 mcg PO BID [facility] Last Admin: 03/17/18 18:09 Dose: 1,000 mcg Doxycycline Hyclate (Doryx) 100 mg PO BID [facility] PRN Reason: Protocol Last Admin: 03/17/18 18:48 Dose: 100 mg Sodium Chloride (Sodium Chloride 0.9%) 1,500 mls @ 75 mls/hr IV .Q20H [facility] Last Admin: 03/17/18 18:16 Dose: 75 mls/hr eMAR Start Stop Document 03/17/18 18:16 [facility] (Rec: 03/17/18 18[facility]16 [id number] Solution Start Date 03/17/18 Start Time 16:00 Insulin Human Regular (Humulin R Med) 0 units SC ACHS [facility] PRN Reason: Protocol Metoprolol Tartrate (Lopressor) 100 mg PO BRKDIN [facility] Last Admin: 03/17/18 18:06 Dose: 100 mg MAR Pulse and Blood Pressure Document 03/17/18 18:06 [facility] (Rec: 03/17/18 18:07 [id number] Blood Pressure Blood Pressure (100/60-150/90) 140/80 Morphine Sulfate (Morphine) 1 mg IVP Q3H PRN PRN Reason: Pain, severe (8-10) Multivitamins (Thera Tab) 1 tab PO DAILY [facility] Non-Formulary Medication (Isosorbide Dinitrate [Isosorbide Dinitrate]) 60 mg PO DAILY [facility] Non-Formulary Medication (Magnesium Glycinate [Mag Glycinate]) 500 mg PO DAILY [facility] Ondansetron HCl (Zofran Inj) 4 mg IVP Q6H PRN PRN Reason: Nausea/Vomiting Pantoprazole Sodium (Protonix Inj) 40 mg IVP DAILY [facility] Last Admin: 03/17/18 18:09 Dose: 40 mg IVP Administration Document 03/17/18 18:09 [facility] (Rec: 03/17/18 18:09 [id number]) Charges for Administration # of IVP Administrations 1 Primidone (Mysoline) 50 mg PO HS [facility] Discontinued Medications Sodium Chloride (Sodium Chloride 0.9%) 1,000 mls @ 100 mls/hr IV .Q10H [facility] Stop: 03/17/18 21:57 Last Admin: 03/17/18 12:18 Dose: 100 mls/hr eMAR Start Stop Document 03/17/18 12:18 [facility] (Rec: 03/17/18 12:18 [facility] [id number]) Intravenous Solution Start Date 03/17/18 Start Time 12:18 Morphine Sulfate (Morphine) 2 mg IVP STAT STA Stop: 03/17/18 12:59 Last Admin: 03/17/18 13:05 Dose: 2 mg MAR Pain Assessment Document 03/17/18 13:05 [facility] (Rec: 03/17/18 13:05 [facility]MD [id number]) Pain Reassessment Is this a pain reassessment? No Presence of Pain Presence of Pain Yes IVP Administration Document 03/17/18 13:05 [facility] (Rec: 03/17/18 13:05 [facility]MD [id number]) Charges for Administration # of IVP Administrations 1 Ondansetron HCl (Zofran Inj) 8 mg IVP STAT STA Stop: 03/17/18 11:59 Last Admin: 03/17/18 12:18 Dose: 8 mg IVP Administration Document 03/17/18 12:18 [facility] (Rec: 03/17/18 12:18 GMD [id number]) Charges for Administration # of IVP Administrations 1 - Scribe Statement The provider has reviewed the documentation as recorded by the Francisca Rothman Provider Scribe Attestation: All medical record entries made by the Scribe were at my direction and personally dictated by me. I have reviewed the chart and agree that the record accurately reflects my personal performance of the history, physical exam, medical decision making, and the department course for this patient. I have also personally directed, reviewed, and agree with the discharge instructions and disposition. Disposition/Present on Arrival - Present on Arrival Any Indicators Present on Arrival: No History of DVT/PE: No History of Uncontrolled Diabetes: No Urinary Catheter: No History of Decub. Ulcer: No History Surgical Site Infection Following: None - Disposition Have Diagnosis and Disposition been Completed?: Yes Diagnosis: CKD (chronic kidney disease) stage 3, GFR 30-59 ml/min, Pancreatitis Disposition: HOSPITALIZED Disposition Time: 12:40 Condition: STABLE
[2018-03-17 14:25] LABS: HDL CHOLESTEROL 35 mg/dL (29-60)
[2018-03-17 14:36] LABS: LDL CHOLESTEROL 43 mg/dL (0-129)
[2018-03-17] MEDS ORDERED: Morphine 2 mg/ml ISec IVP PRN (15:45)
[2018-03-17 15:58] LABS: URINE APPEARANCE SLIGHT-CLOUDY (CLEAR); URINE BILIRUBIN NEGATIVE (NEGATIVE); URINE BLOOD TRACE-INTACT (NEGATIVE); URINE COLOR YELLOW (YELLOW); URINE GLUCOSE (UA) NEGATIVE (NEGATIVE); URINE LEUKOCYTE ESTERASE TRACE Leu/uL (NEGATIVE); URINE PROTEIN 100 mg/dL (<30 mg/dL); URINE UROBILINOGEN 0.2 E.U./dL (<1 E.U./dL)
--- NOTE | 2018-03-17 16:27 | CP.PCM.HP ---
History of Present Illness - History of Present Illness History of Present Illness: PGY-[address] Pablo Ms Suma Min, 71 F, with PMHx CAD s/p CABG, cardiomyopathy/CHF s/p pacemaker placement, DM type 2 (IDDM), CKD stage 4, AAA s/p repair, coloectomy due to surgical complication, came to the ED for abdominal pain. Pt started to have epigastric abdominal comfort 1 week ago and progressively getting worse to 8/10 today. (+) poor appetite. Denies watery bowel movement, N/V, Pt had L 2nd toe amputation on 02/[address] Cortés and discharged with (and currently on) PO Doxycycline and augmentin for a total of 6-8 week course. In the ED: VS stable. WBC 15. Cre 2.3 at baseline. LFT normal. Lipase 2873. triglyceride 101. CT A/P w/o contrast showed unremarkable pancreas. ROS: (+) 17 lb loss from 179 lb (02/21/18) to 162 lb today (+) epigastric abdominal pain (+) decrease sensation distal legs Denies BLANCO, dizziness, CP, SOB, N/V/D/C, change in ostomy output, dysuria PSHx: CAD s/p CABG cardiomyopathy/CHF s/p pacemaker placement DM type 2 (IDDM) A1C 6.5 on 02/22/18 CKD stage 4 AAA s/p repair PSH: coloectomy due to surgical complication leading to bowel gangrene CABG, pacemaker placement, AAA with endovascular repair and stent cholecystectomy left toe amputation Family Hx: Mother: Uterine/Breast Ca Father: CHF, throat Ca Brother: leukemia, heart transplant SH: Former tobacco use (quit 2000) Denies alcohol and illicit drugs Allergies: Shellfish Medications: Reviewed PMD: Dr. Flannery Present on Admission - Present on Admission Any Indicators Present on Admission: No Past Patient History - Infectious Disease Hx of Infectious Diseases: None - Tetanus Immunizations Tetanus Immunization: Unknown - Past Social History Smoking Status: Former Smoker - CARDIAC Hx Congestive Heart Failure: Yes Hx Hypertension: Yes Hx Mitral Valve Prolapse: Yes Hx Pacemaker: Yes Hx Peripheral Edema: Yes - PULMONARY Hx Respiratory Disorders: No - NEUROLOGICAL Hx Neurological Disorder: No - HEENT Hx Cataracts: Yes (bilateral laser sx) - RENAL Hx Chronic Kidney Disease: Yes - ENDOCRINE/METABOLIC Hx Diabetes Mellitus Type 2: Yes - HEMATOLOGICAL/ONCOLOGICAL Hx Blood Disorders: No (MRSA H/O) - INTEGUMENTARY Other/Comment: STage 3 sacral ulcers. BLE redness w/ scattered scabs. Under breasts folds redness. Bilateral under belly Folds redness skin excoriated - MUSCULOSKELETAL/RHEUMATOLOGICAL Hx Arthritis: Yes Hx Back Pain: Yes Hx Falls: No - GASTROINTESTINAL Hx Gastrointestinal Disorders: Yes (umbilical hernia) Hx Ileostomy: Yes - GENITOURINARY/GYNECOLOGICAL Hx Genitourinary Disorders: No - PSYCHIATRIC Hx Psychophysiologic Disorder: No - SURGICAL HISTORY Hx Surgeries: Yes Hx Amputation: Yes (left foot 2nd digit) Hx Cholecystectomy: Yes Hx Coronary Stent: Yes Hx Open Heart Surgery: Yes - ANESTHESIA Hx Anesthesia Reactions: No Hx Malignant Hyperthermia: No Meds Allergies/Adverse Reactions: Allergies Allergy/AdvReac Type Severity Reaction Status Date / Time shellfish derived Allergy ANAPHYLAXIS Verified 02/19/17 13:57 Physical Exam - Constitutional Appears: No Acute Distress - Head Exam Head Exam: ATRAUMATIC, NORMAL INSPECTION, NORMOCEPHALIC - Eye Exam Eye Exam: EOMI, Normal appearance, PERRL. absent: Scleral icterus Pupil Exam: NORMAL ACCOMODATION - ENT Exam ENT Exam: Mucous Membranes Moist - Neck Exam Additional comments: supple, no jvd - Respiratory Exam Respiratory Exam: Clear to Auscultation Bilateral. absent: Rales, Rhonchi, Wheezes - Cardiovascular Exam Cardiovascular Exam: REGULAR RHYTHM, +S1, +S2. absent: Systolic Murmur - GI/Abdominal Exam GI & Abdominal Exam: Normal Bowel Sounds, Soft, Tenderness (epigastric). absent : Rigid - Extremities Exam Extremities exam: Positive for: normal capillary refill, normal inspection, pedal pulses present. Negative for: calf tenderness, pedal edema - Neurological Exam Neurological exam: Alert, Oriented x3 - Psychiatric Exam Psychiatric exam: Normal Affect, Normal Mood - Skin Skin Exam: Dry, Warm Results - Vital Signs Recent Vital Signs: Last Vital Signs Temp 97.6 F 03/17/18 15:04 Pulse 52 L 03/17/18 15:04 Resp 20 03/17/18 15:04 BP 138/78 03/17/18 15:04 Pulse Ox 100 03/17/18 15:04 - Labs Result Diagrams: 03/17/18 12:00 03/17/18 12:00 Labs: Laboratory Results - last 24 hr 03/17/18 15:53 Urine Color Yellow Urine Appearance Slight-cloudy Urine pH 6.0 Ur Specific [place] 1.020 Urine Protein 100 H Urine Glucose (UA) Negative Urine Ketones Negative Urine Blood Trace-intact H Urine Nitrate Negative Urine Bilirubin Negative Urine Urobilinogen 0.2 Ur Leukocyte Esterase Trace H Urine RBC 1 - 3 Urine WBC 1 - 3 Ur Epithelial Cells 1 - 3 Assessment & Plan - Assessment and Plan (Free Text) Plan: Ms Suma Min, 71 F, with PMHx CAD s/p CABG (EF 33 in 2017), cardiomyopathy/ CHF s/p pacemaker placement, DM type 2 (IDDM), CKD stage 4, AAA s/p repair, coloectomy due to surgical complication, came to the ED for abdominal pain. Pt started to have epigastric abdominal comfort 1 week ago and progressively getting worse to 8/10 today. Pt had L 2nd toe amputation on 02/[address] Cortés and discharged with (and currently on) PO Doxycycline and augmentin for a total of 6-8 week course. In the ED, VS stable. WBC 15. Cre 2.3 at baseline. LFT normal. Lipase 2873. triglyceride 101. CT A/P w/o contrast showed unremarkable pancreas. No urinary symptoms. Pancreatitis Not caused by ETOH, Triglyceride, gallstone. Questionable Medication induce - likely diuretics causing ischemia at pancreas. No documented pancreatitis s/e on augmentin/doxycycline PDRs - Consult GI - NS@75 for 1.5 L, repeat CXR AM to r/o fluid overload - Hold BP meds because fluid is given. Re-assess tomorrow whether to resume BP meds Leukocytosis likely reactive to pancreatitis - Pending urine culture. U/A looks unremarkable S/P amputation for cellulitis - consult Dr Cortés - Continue ABX, f/u with Podiatry IDDM2 - A1C 6.5 on 02/22/18 - ISSS and Accucheck Hx CAD s/p CABG Hx cardiomyopathy/CHF s/p pacemaker placement HLD - Continue home Imdur 30 daily, statin, metoprolol CKD stage 4. Cre 2.3 at baseline - continue to trend cre Prophylaxis - heparin Q8 SC - protonix IV ?Essential tremor on primidone CLD with home vitamins PVX: heparin SC q8, home protonix s/r/d/w Dr. Pablo
[2018-03-17] MEDS ORDERED: Non Formulary Medication (Metoprolol Tartrate [Lopressor] 100 MG) PO SCH (18:00)
[2018-03-17] MEDS ORDERED: CYANOCOBALAMIN 1000 MCG PO SCH (18:00)
[2018-03-17] MEDS: Amoxicillin-Clav 500-125 mg Tab PO SCH (18:11)
[2018-03-17] MEDS: Sodium Chloride 0.9% 1,500 ML IV SCH (18:16)
[2018-03-17] MEDS: Morphine 4 mg/ml ISec IVP PRN (21:38)
[2018-03-17] MEDS: Insulin Reg-MEDIUM-Coverage SC SCH (21:40)
[2018-03-18] MEDS: Morphine 4 mg/ml ISec IVP PRN ×5 (01:34→17:22)
[2018-03-18] MEDS: Amoxicillin-Clav 500-125 mg Tab PO SCH ×2 (05:27→17:21)
[2018-03-18] MEDS ORDERED: Pantoprazole 40 mg EC Tab PO SCH (07:00)
[2018-03-18 07:03] LABS: BASO # 0.03 K/mm3 (0.0-2.0); BASO % 0.2 % (0.0-3.0); EOS # 0.2 (0.0-0.7); EOS % 1.8 % (1.5-5.0); GRAN # 8.61 (1.4-6.5); GRAN % 65.8 % (50.0-68.0); HEMOGLOBIN 12.8 g/dL (12.0-16.0); LYMPH # 2.7 (1.2-3.4); LYMPH % 20.9 % (22.0-35.0); MEAN CELL VOLUME 92.9 fl (80.0-105.0); MEAN CORPUSCULAR HEMOGLOBIN 31.1 pg (25.0-35.0); MEAN CORPUSCULAR HGB CONC 33.5 g/dl (31.0-37.0); MEAN PLATELET VOLUME 11.1 fl (7.0-11.0); MONO # 1.5 (0.1-0.6); MONO % 11.3 % (1.0-6.0); RBC 4.11 10^6/uL (3.5-6.1); RED CELL DISTRIBUTION WIDTH 13.2 % (11.5-14.5); WHITE BLOOD COUNT 13.1 10^3/ul (4.5-11.0)
[2018-03-18 07:56] LABS: ALB/GLOB RATIO 0.9 (1.1-1.8); ALBUMIN 3.2 g/dL (3.0-4.8); CALCIUM 8.4 mg/dL (8.4-10.5)
[2018-03-18] MEDS: Insulin Reg-MEDIUM-Coverage SC SCH ×3 (08:00→17:00)
[2018-03-18] MEDS: Cholecalciferol 1,000 INTLU TAB PO SCH (09:23)
[2018-03-18] MEDS: Multivitamin Therapeutic Tab PO SCH (09:24)
[2018-03-18] MEDS: MAGNESIUM GLYCINATE PO SCH (10:00)
[2018-03-18] MEDS ORDERED: Non Formulary Medication (Multivitamin [Multivitamins] 1 TAB) PO SCH (10:00)
--- NOTE | 2018-03-18 10:37 | RAD ---
HISTORY: R/O fluid overload COMPARISON: 02/21/2018 TECHNIQUE: Chest PA and lateral FINDINGS: LUNGS: No active pulmonary disease. PLEURA: No significant pleural effusion identified. No pneumothorax apparent. CARDIOVASCULAR: Moderate cardiomegaly OSSEOUS STRUCTURES: No significant abnormalities. VISUALIZED UPPER ABDOMEN: Normal. OTHER FINDINGS: Pacemaker and Port-A-Cath IMPRESSION: No active disease.
--- NOTE | 2018-03-18 10:51 | CP.PCM.CON ---
<Emy Holder - Last Filed: 03/18/18 17:19> History of Present Illness - History of Present Illness History of Present Illness: PGY- 2 GI consult note for Dr. Tomas's service 71 yo Female with PMH CAD s/p CABG, cardiomyopathy, CHF s/p pacemaker placement , DM type 2, CKD stage 4, AAA s/p repair, coloectomy due to surgical complication, came to the ED for abdominal pain. Patient states that she started to have epigastric abdominal comfort 1 week ago and progressively getting worse to 7/10 today, she states the worse was yesterday. She states that pain radiates to the back. She also reports poor appetite. She states that the stool from her ostomy is normal. She denies N/V, Patient recently had toe amputation and is currently on PO Doxycycline and augmentin for a total of 6-8 week course. In the ED LFT were normal however Lipase was elevated at 2873. CT A /P w/o contrast showed unremarkable pancreas with cholecystectomy. Patient states that she previously had pancreatitis. She denies headache, dizziness, CP , SOB, N/V, diarrhea, constipation change in ostomy output, dysuria PMH: CAD s/p CABG, cardiomyopathy, CHF s/p pacemaker placement, DM type 2, CKD stage 4, AAA s/p repair, coloectomy PSH: CABG, pacemaker placement, coloectomy due to surgical complication leading to bowel gangrene, AAA with endovascular repair and stent, cholecystectomy, left toe amputation family History: Mother: Uterine/Breast Ca, Father: CHF, throat Ca, Brother: leukemia, heart transplant social history: Former tobacco use (quit 2000), Denies alcohol and illicit drugs Allergies: Shellfish Review of Systems - Review of Systems All systems: reviewed and no additional remarkable complaints except Past Patient History - Infectious Disease Hx of Infectious Diseases: None - Tetanus Immunizations Tetanus Immunization: Unknown - Past Social History Smoking Status: Former Smoker - CARDIAC Hx Pacemaker: Yes - PULMONARY Hx Respiratory Disorders: No - NEUROLOGICAL Hx Neurological Disorder: No - HEENT Hx Cataracts: Yes (bilateral laser sx) - RENAL Hx Chronic Kidney Disease: Yes - ENDOCRINE/METABOLIC Hx Diabetes Mellitus Type 2: Yes - HEMATOLOGICAL/ONCOLOGICAL Hx Blood Transfusions: No Hx Blood Transfusion Reaction: No - INTEGUMENTARY Other/Comment: STage 3 sacral ulcers. BLE redness w/ scattered scabs. Under breasts folds redness. Bilateral under belly Folds redness skin excoriated - MUSCULOSKELETAL/RHEUMATOLOGICAL Hx Arthritis: Yes - GASTROINTESTINAL Hx Gastrointestinal Disorders: Yes (umbilical hernia) Hx Ileostomy: Yes - GENITOURINARY/GYNECOLOGICAL Hx Genitourinary Disorders: No - PSYCHIATRIC Hx Psychophysiologic Disorder: No Hx Substance Use: No - SURGICAL HISTORY Hx Amputation: Yes (left foot 2nd digit) - ANESTHESIA Hx Anesthesia Reactions: No Hx Malignant Hyperthermia: No Meds Allergies/Adverse Reactions: Allergies Allergy/AdvReac Type Severity Reaction Status Date / Time shellfish derived Allergy ANAPHYLAXIS Verified 02/19/17 13:57 - Medications Medications: Current Medications Amoxicillin/Clavulanate Potassium (Augmentin 500 Mg-125 Mg Tab) 1 tab PO Q12H [facility] PRN Reason: Protocol Last Admin: 03/18/18 05:27 Dose: 1 tab Ascorbic Acid (Vitamin C 500 Mg Tab) 500 mg PO DAILY [facility] Last Admin: 03/18/18 09:23 Dose: 500 mg Aspirin (Ecotrin) 81 mg PO DAILY [facility] Last Admin: 03/18/18 09:24 Dose: 81 mg Atorvastatin Calcium (Lipitor) 10 mg PO DIN [facility] Last Admin: 03/17/18 18:06 Dose: 10 mg Cholecalciferol (Vitamin D) 1,000 intlu PO DAILY [facility] Last Admin: 03/18/18 09:23 Dose: 1,000 intlu Cyanocobalamin (Vitamin B12 1000 Mcg Tab) 1,000 mcg PO BID [facility] Last Admin: 03/18/18 09:23 Dose: 1,000 mcg Doxycycline Hyclate (Doryx) 100 mg PO BID [facility] PRN Reason: Protocol Last Admin: 03/18/18 09:23 Dose: 100 mg Heparin Sodium (Porcine) (Heparin) 5,000 units SC Q8 [facility] PRN Reason: Protocol Sodium Chloride (Sodium Chloride 0.9%) 1,500 mls @ 75 mls/hr IV .Q20H [facility] Last Admin: 03/17/18 18:16 Dose: 75 mls/hr Insulin Human Regular (Humulin R Med) 0 units SC ACHS [facility] PRN Reason: Protocol Last Admin: 03/18/18 08:00 Dose: Not Given Isosorbide Dinitrate (Isordil) 60 mg PO DAILY [facility] Metoprolol Tartrate (Lopressor) 100 mg PO BRKDIN [facility] Last Admin: 03/18/18 09:23 Dose: 100 mg Morphine Sulfate (Morphine) 1 mg IVP Q3H PRN PRN Reason: Pain, severe (8-10) Last Admin: 03/18/18 08:45 Dose: 1 mg Multivitamins (Thera Tab) 1 tab PO DAILY [facility] Last Admin: 03/18/18 09:24 Dose: 1 tab Magnesium Glycinate [Mag Glycinate] 500 Mg 500 mg PO DAILY [facility] Ondansetron HCl (Zofran Inj) 4 mg IVP Q6H PRN PRN Reason: Nausea/Vomiting Pantoprazole Sodium (Protonix Inj) 40 mg IVP DAILY [facility] Last Admin: 03/18/18 09:24 Dose: 40 mg Primidone (Mysoline) 50 mg PO HS [facility] Last Admin: 03/17/18 21:40 Dose: 50 mg Physical Exam - Constitutional Appears: No Acute Distress - Head Exam Head Exam: ATRAUMATIC, NORMOCEPHALIC - Eye Exam Eye Exam: EOMI, Normal appearance - ENT Exam ENT Exam: Mucous Membranes Moist - Respiratory Exam Respiratory Exam: Clear to Auscultation Bilateral, NORMAL BREATHING PATTERN. absent: Decreased Breath Sounds, Rales, Rhonchi, Wheezes, Respiratory Distress - Cardiovascular Exam Cardiovascular Exam: REGULAR RHYTHM, +S1, +S2. absent: Bradycardia, Tachycardia , Systolic Murmur - GI/Abdominal Exam GI & Abdominal Exam: Normal Bowel Sounds, Soft, Tenderness (mild, epigastric). absent: Distended, Firm, Guarding, Hernia Additional comments: ostomy in place - Extremities Exam Extremities exam: Positive for: normal inspection. Negative for: pedal edema, tenderness - Neurological Exam Neurological exam: Alert, Oriented x3 - Skin Skin Exam: Dry, Intact, Normal Color, Warm Results - Vital Signs Recent Vital Signs: Last Vital Signs Temp 98.2 F 03/18/18 06:00 Pulse 72 03/18/18 09:23 Resp 20 03/18/18 06:00 BP 134/70 03/18/18 09:23 Pulse Ox 98 03/18/18 06:00 - Labs Result Diagrams: 03/18/18 06:15 03/18/18 06:15 Labs: Laboratory Results - last 24 hr 03/17/18 03/18/18 03/18/18 15:53 06:15 06:15 WBC 13.1 H RBC 4.11 Hgb 12.8 Hct 38.2 MCV 92.9 MCH 31.1 MCHC 33.5 RDW 13.2 Plt Count 201 MPV 11.1 H Gran % 65.8 Lymph % (Auto) 20.9 L [place] % (Auto) 11.3 H Eos % (Auto) 1.8 Baso % (Auto) 0.2 Gran # 8.61 H Lymph # (Auto) 2.7 [place] # (Auto) 1.5 H Eos # (Auto) 0.2 Baso # (Auto) 0.03 Sodium 137 Potassium 4.1 Chloride 99 Carbon Dioxide 27 Anion Gap 15 BUN 87 H Creatinine 2.0 H Est GFR ( Amer) 30 Est GFR (Non-Af Amer) 24 Random Glucose 139 H Calcium 8.4 Total Bilirubin 0.5 AST 33 ALT 24 Alkaline Phosphatase 194 H Total Protein 6.6 Albumin 3.2 Globulin 3.4 Albumin/Globulin Ratio 0.9 L Urine Color Yellow Urine Appearance Slight-cloudy Urine pH 6.0 Ur Specific [place] 1.020 Urine Protein 100 H Urine Glucose (UA) Negative Urine Ketones Negative Urine Blood Trace-intact H Urine Nitrate Negative Urine Bilirubin Negative Urine Urobilinogen 0.2 Ur Leukocyte Esterase Trace H Urine RBC 1 - 3 Urine WBC 1 - 3 Ur Epithelial Cells 1 - 3 Assessment & Plan - Assessment and Plan (Free Text) Assessment: 71 yo Female with PMH CAD s/p CABG, cardiomyopathy, CHF s/p pacemaker placement , DM type 2, CKD stage 4, AAA s/p repair, coloectomy due to surgical complication, came to the ED for abdominal pain due to pancreatits vs enteritis vs ischemic bowel . Plan: - CT abd/pel without contrast showed no acute findings - patient can not have MRI due to pacemaker - consider US to r/o CBD pathology or CT with PO contrast - continue abx - continue CLD case maximiliano nd discussed with Dr. Tomas <Crystal Tomas V - Last Filed: 03/19/18 00:13> Meds - Medications Medications: Current Medications Ascorbic Acid (Vitamin C 500 Mg Tab) 500 mg PO DAILY [facility] Last Admin: 03/18/18 09:23 Dose: 500 mg Aspirin (Ecotrin) 81 mg PO DAILY [facility] Last Admin: 03/18/18 09:24 Dose: 81 mg Atorvastatin Calcium (Lipitor) 10 mg PO DIN [facility] Last Admin: 03/18/18 17:21 Dose: 10 mg Cholecalciferol (Vitamin D) 1,000 intlu PO DAILY [facility] Last Admin: 03/18/18 09:23 Dose: 1,000 intlu Cyanocobalamin (Vitamin B12 1000 Mcg Tab) 1,000 mcg PO BID [facility] Last Admin: 03/18/18 17:21 Dose: 1,000 mcg Heparin Sodium (Porcine) (Heparin) 5,000 units SC Q8 [facility] PRN Reason: Protocol Last Admin: 03/18/18 21:28 Dose: 5,000 units Sodium Chloride (Sodium Chloride 0.9%) 1,500 mls @ 75 mls/hr IV .Q20H [facility] Last Admin: 03/17/18 18:16 Dose: 75 mls/hr Piperacillin Sod/Tazobactam Sod (Zosyn 2.25 Gm In 0.9% 100 Ml) 2.25 gm in 100 mls @ 100 mls/hr IVPB Q8 [facility] PRN Reason: Protocol Stop: 03/25/18 22:01 Last Admin: 03/18/18 21:29 Dose: 100 mls/hr Insulin Human Regular (Humulin R Med) 0 units SC ACHS [facility] PRN Reason: Protocol Last Admin: 03/18/18 17:00 Dose: 5 units Isosorbide Dinitrate (Isordil) 60 mg PO DAILY [facility] Last Admin: 03/18/18 11:00 Dose: 60 mg Metoprolol Tartrate (Lopressor) 100 mg PO BRKDIN [facility] Last Admin: 03/18/18 17:21 Dose: 100 mg Morphine Sulfate (Morphine) 1 mg IVP Q3H PRN PRN Reason: Pain, severe (8-10) Last Admin: 03/18/18 17:22 Dose: 1 mg Multivitamins (Thera Tab) 1 tab PO DAILY [facility] Last Admin: 03/18/18 09:24 Dose: 1 tab Magnesium Glycinate [Mag Glycinate] 500 Mg 500 mg PO DAILY [facility] Last Admin: 03/18/18 10:00 Dose: Not Given Ondansetron HCl (Zofran Inj) 4 mg IVP Q6H PRN PRN Reason: Nausea/Vomiting Pantoprazole Sodium (Protonix Inj) 40 mg IVP DAILY [facility] Last Admin: 03/18/18 09:24 Dose: 40 mg Primidone (Mysoline) 50 mg PO HS [id number] Last Admin: 03/18/18 21:29 Dose: 50 mg Results - Vital Signs Recent Vital Signs: Last Vital Signs Temp 98.2 F 03/18/18 23:12 Pulse 58 L 03/18/18 23:12 Resp 16 03/18/18 23:12 BP 139/74 03/18/18 23:12 Pulse Ox 100 03/18/18 23:12 - Labs Result Diagrams: 03/18/18 06:15 03/18/18 06:15 Labs: Laboratory Results - last 24 hr 03/17/18 03/17/18 03/18/18 15:57 21:35 06:15 WBC 13.1 H RBC 4.11 Hgb 12.8 Hct 38.2 MCV 92.9 MCH 31.1 MCHC 33.5 RDW 13.2 Plt Count 201 MPV 11.1 H Gran % 65.8 Lymph % (Auto) 20.9 L [place] % (Auto) 11.3 H Eos % (Auto) 1.8 Baso % (Auto) 0.2 Gran # 8.61 H Lymph # (Auto) 2.7 [place] # (Auto) 1.5 H Eos # (Auto) 0.2 Baso # (Auto) 0.03 Sodium Potassium Chloride Carbon Dioxide Anion Gap BUN Creatinine Est GFR ( Amer) Est GFR (Non-Af Amer) POC Glucose (mg/dL) 177 H 212 H Random Glucose Calcium Total Bilirubin AST ALT Alkaline Phosphatase Total Protein Albumin Globulin Albumin/Globulin Ratio 03/18/18 03/18/18 03/18/18 06:15 06:46 11:17 WBC RBC Hgb Hct MCV MCH MCHC RDW Plt Count MPV Gran % Lymph % (Auto) [place] % (Auto) Eos % (Auto) Baso % (Auto) Gran # Lymph # (Auto) [place] # (Auto) Eos # (Auto) Baso # (Auto) Sodium 137 Potassium 4.1 Chloride 99 Carbon Dioxide 27 Anion Gap 15 BUN 87 H Creatinine 2.0 H Est GFR ( Amer) 30 Est GFR (Non-Af Amer) 24 POC Glucose (mg/dL) 125 H 302 H Random Glucose 139 H Calcium 8.4 Total Bilirubin 0.5 AST 33 ALT 24 Alkaline Phosphatase 194 H Total Protein 6.6 Albumin 3.2 Globulin 3.4 Albumin/Globulin Ratio 0.9 L 03/18/18 03/18/18 03/18/18 15:57 21:59 23:02 WBC RBC Hgb Hct MCV MCH MCHC RDW Plt Count MPV Gran % Lymph % (Auto) [place] % (Auto) Eos % (Auto) Baso % (Auto) Gran # Lymph # (Auto) [place] # (Auto) Eos # (Auto) Baso # (Auto) Sodium Potassium Chloride Carbon Dioxide Anion Gap BUN Creatinine Est GFR ( Amer) Est GFR (Non-Af Amer) POC Glucose (mg/dL) 255 H 65 127 H Random Glucose Calcium Total Bilirubin AST ALT Alkaline Phosphatase Total Protein Albumin Globulin Albumin/Globulin Ratio Attending/Attestation - Attestation I have personally seen and examined this patient.: Yes I have fully participated in the care of the patient.: Yes I have reviewed all pertinent clinical information: Yes Notes (Text): rosanna 03/19/18 00:13
--- NOTE | 2018-03-18 12:43 | CP.PCM.CON ---
History of Present Illness - History of Present Illness History of Present Illness: Podiatry Consult Note- Dr. Cortés 73 y.o female with PMHx of CAD s/p CABG, cardiomyopathy, CHF s/p pacemaker placement, DM type 2, CKD stage 4, AAA s/p repair, coloectomy seen and evaluated at bedside for s/p 2nd left amputation (DOS: 02/25/18) by Dr. Cortés and left hallux ulceration. Patient was admitted for abdominal pain. Patient reports that she had OM of the 2nd digit in which the digit was amputated and given oral antibiotics Doxycycline and Augmentin to take. Patient reports that she has been taking the antibiotics for 2 weeks. Reports no problems with the antibiotics for the first week. Reports that last week her abdominal pain started in which she reports may be due to the antibiotics. Patient reports she is suppose to follow up with Dr. Cortés this for a post op check and removal of sutures. Per Dr. Cortés, her dressing has to be changed daily with clean gauze and dsd which she has been compliant. She has been ambulating in surgical shoe. Patient has no complaints to her LE at this time. Denies any pain to the LE. Denies nausea, fever, shortness of breath, chest pain, or chills. Denies calf tenderness or pain. PMH: CAD s/p CABG, cardiomyopathy, CHF s/p pacemaker placement, DM type 2, CKD stage 4, AAA s/p repair, coloectomy PSH: CABG, pacemaker placement, coloectomy due to surgical complication leading to bowel gangrene, AAA with endovascular repair and stent, cholecystectomy, left toe amputation FH: Mother: Uterine/Breast Ca, Father: CHF, throat Ca, Brother: leukemia, heart transplant SH: Former tobacco use (quit 2000), denies alcohol and illicit drugs ALL: Shellfish MEDS: see DEC list Past Patient History - Infectious Disease Hx of Infectious Diseases: None - Tetanus Immunizations Tetanus Immunization: Unknown - Past Social History Smoking Status: Former Smoker - CARDIAC Hx Pacemaker: Yes - PULMONARY Hx Respiratory Disorders: No - NEUROLOGICAL Hx Neurological Disorder: No - HEENT Hx Cataracts: Yes (bilateral laser sx) - RENAL Hx Chronic Kidney Disease: Yes - ENDOCRINE/METABOLIC Hx Diabetes Mellitus Type 2: Yes - HEMATOLOGICAL/ONCOLOGICAL Hx Blood Transfusions: No Hx Blood Transfusion Reaction: No - INTEGUMENTARY Other/Comment: STage 3 sacral ulcers. BLE redness w/ scattered scabs. Under breasts folds redness. Bilateral under belly Folds redness skin excoriated - MUSCULOSKELETAL/RHEUMATOLOGICAL Hx Arthritis: Yes - GASTROINTESTINAL Hx Gastrointestinal Disorders: Yes (umbilical hernia) Hx Ileostomy: Yes - GENITOURINARY/GYNECOLOGICAL Hx Genitourinary Disorders: No - PSYCHIATRIC Hx Psychophysiologic Disorder: No Hx Substance Use: No - SURGICAL HISTORY Hx Amputation: Yes (left foot 2nd digit) - ANESTHESIA Hx Anesthesia Reactions: No Hx Malignant Hyperthermia: No Meds Allergies/Adverse Reactions: Allergies Allergy/AdvReac Type Severity Reaction Status Date / Time shellfish derived Allergy ANAPHYLAXIS Verified 02/19/17 13:57 - Medications Medications: Current Medications Amoxicillin/Clavulanate Potassium (Augmentin 500 Mg-125 Mg Tab) 1 tab PO Q12H [facility] PRN Reason: Protocol Last Admin: 03/18/18 05:27 Dose: 1 tab Ascorbic Acid (Vitamin C 500 Mg Tab) 500 mg PO DAILY [facility] Last Admin: 03/18/18 09:23 Dose: 500 mg Aspirin (Ecotrin) 81 mg PO DAILY [facility] Last Admin: 03/18/18 09:24 Dose: 81 mg Atorvastatin Calcium (Lipitor) 10 mg PO DIN [facility] Last Admin: 03/17/18 18:06 Dose: 10 mg Cholecalciferol (Vitamin D) 1,000 intlu PO DAILY [facility] Last Admin: 03/18/18 09:23 Dose: 1,000 intlu Cyanocobalamin (Vitamin B12 1000 Mcg Tab) 1,000 mcg PO BID [facility] Last Admin: 03/18/18 09:23 Dose: 1,000 mcg Doxycycline Hyclate (Doryx) 100 mg PO BID [facility] PRN Reason: Protocol Last Admin: 03/18/18 09:23 Dose: 100 mg Heparin Sodium (Porcine) (Heparin) 5,000 units SC Q8 [facility] PRN Reason: Protocol Sodium Chloride (Sodium Chloride 0.9%) 1,500 mls @ 75 mls/hr IV .Q20H [facility] Last Admin: 03/17/18 18:16 Dose: 75 mls/hr Insulin Human Regular (Humulin R Med) 0 units SC ACHS [facility] PRN Reason: Protocol Last Admin: 03/18/18 11:55 Dose: 7 units Isosorbide Dinitrate (Isordil) 60 mg PO DAILY [facility] Metoprolol Tartrate (Lopressor) 100 mg PO BRKDIN [facility] Last Admin: 03/18/18 09:23 Dose: 100 mg Morphine Sulfate (Morphine) 1 mg IVP Q3H PRN PRN Reason: Pain, severe (8-10) Last Admin: 03/18/18 11:54 Dose: 1 mg Multivitamins (Thera Tab) 1 tab PO DAILY [facility] Last Admin: 03/18/18 09:24 Dose: 1 tab Magnesium Glycinate [Mag Glycinate] 500 Mg 500 mg PO DAILY [facility] Ondansetron HCl (Zofran Inj) 4 mg IVP Q6H PRN PRN Reason: Nausea/Vomiting Pantoprazole Sodium (Protonix Inj) 40 mg IVP DAILY [facility] Last Admin: 03/18/18 09:24 Dose: 40 mg Primidone (Mysoline) 50 mg PO HS [facility] Last Admin: 03/17/18 21:40 Dose: 50 mg Physical Exam - Constitutional Appears: Well, Non-toxic, No Acute Distress - Extremities Exam Extremities exam: Negative for: calf tenderness Additional comments: VASC: DP/PT pulses palpable 1/4. Temperature gradient warm to cool. CFT < 3 sec x 3 digits. No edema noted to the LE. Venous stasis changes noted to the anterior leg. DERM: Surgical site noted to 2nd digit amputation site with prolene sutures intact, skin edges well coapted, no signs of dehiscence. No interdigital maceration No active drainage or purulence, no malodor, no fluctuance. No erythema. No streaking. Mild xerosis noted to dorsum of the left foot. Circular ulceration noted to submet 1 callus to the left foot measures approximately .5 x .5 x .1 cm with mainly granular base, intact hyperkeratotic rim to the periwound, no erythema, no streaking, no probe to bone, no malodor, no purulence, no maceration, no tunneling noted. There are no clinical signs of infection to the lower extremity. NEURO: Protective sensation grossly diminished ORTHO: No tenderness to palpation of surgical site. Hallux and 2nd digit amputations noted. - Neurological Exam Neurological exam: Alert, Oriented x3 - Psychiatric Exam Psychiatric exam: Normal Affect, Normal Mood Results - Vital Signs Recent Vital Signs: Last Vital Signs Temp 98.2 F 03/18/18 06:00 Pulse 72 03/18/18 09:23 Resp 20 03/18/18 06:00 BP 134/70 03/18/18 09:23 Pulse Ox 98 03/18/18 06:00 - Labs Result Diagrams: 03/18/18 06:15 03/18/18 06:15 Labs: Laboratory Results - last 24 hr 03/17/18 03/18/18 03/18/18 15:53 06:15 06:15 WBC 13.1 H RBC 4.11 Hgb 12.8 Hct 38.2 MCV 92.9 MCH 31.1 MCHC 33.5 RDW 13.2 Plt Count 201 MPV 11.1 H Gran % 65.8 Lymph % (Auto) 20.9 L [place] % (Auto) 11.3 H Eos % (Auto) 1.8 Baso % (Auto) 0.2 Gran # 8.61 H Lymph # (Auto) 2.7 [place] # (Auto) 1.5 H Eos # (Auto) 0.2 Baso # (Auto) 0.03 Sodium 137 Potassium 4.1 Chloride 99 Carbon Dioxide 27 Anion Gap 15 BUN 87 H Creatinine 2.0 H Est GFR ( Amer) 30 Est GFR (Non-Af Amer) 24 Random Glucose 139 H Calcium 8.4 Total Bilirubin 0.5 AST 33 ALT 24 Alkaline Phosphatase 194 H Total Protein 6.6 Albumin 3.2 Globulin 3.4 Albumin/Globulin Ratio 0.9 L Urine Color Yellow Urine Appearance Slight-cloudy Urine pH 6.0 Ur Specific [place] 1.020 Urine Protein 100 H Urine Glucose (UA) Negative Urine Ketones Negative Urine Blood Trace-intact H Urine Nitrate Negative Urine Bilirubin Negative Urine Urobilinogen 0.2 Ur Leukocyte Esterase Trace H Urine RBC 1 - 3 Urine WBC 1 - 3 Ur Epithelial Cells 1 - 3 Assessment & Plan - Assessment and Plan (Free Text) Assessment: 73 y.o female with PMHx of CAD s/p CABG, cardiomyopathy, CHF s/p pacemaker placement, DM type 2, CKD stage 4, AAA s/p repair, coloectomy s/p 2nd left amputation secondary to 2nd digit OM (DOS: 02/25/18) by Dr. Cortés and left hallux ulceration secondary to pressure and DM- stable, no infection Plan: Patient examined and evaluated Discussed plan in detail with attending Dr. Cortés Labs, vitals, chart reviewed- afebrile, WBC=13.1 today (15.0 on 03/17/18) Cleansed ulceration and surgical site with saline and betadine Dressed ulceration and surgical site with gauze, dsd and paper tape Continue with abx Patient to ambulate with surgical shoe Will continue to follow patient while in house Thank you for allowing us to take part in patient's care
--- NOTE | 2018-03-18 14:30 | CP.PCM.PN ---
<Alex Barnes - Last Filed: 03/18/18 14:26> Subjective - Date & Time of Evaluation Date of Evaluation: 03/18/18 Time of Evaluation: 14:26 - Subjective Subjective: patient seen and examined at bedside. Doing well. Belly pain has almost resolved. Tolerating diet with no issue. No other complaints at this time. Objective - Vital Signs/Intake and Output Vital Signs (last 24 hours): Temp Pulse Resp BP Pulse Ox 98.2 F 72 20 134/70 98 03/18/18 06:00 03/18/18 09:23 03/18/18 06:00 03/18/18 09:23 03/18/18 06:00 Intake and Output: 03/18/18 03/18/18 06:59 18:59 Intake Total 780 960 Balance 780 960 - Medications Medications: Current Medications Amoxicillin/Clavulanate Potassium (Augmentin 500 Mg-125 Mg Tab) 1 tab PO Q12H [facility] PRN Reason: Protocol Last Admin: 03/18/18 05:27 Dose: 1 tab Ascorbic Acid (Vitamin C 500 Mg Tab) 500 mg PO DAILY [facility] Last Admin: 03/18/18 09:23 Dose: 500 mg Aspirin (Ecotrin) 81 mg PO DAILY [facility] Last Admin: 03/18/18 09:24 Dose: 81 mg Atorvastatin Calcium (Lipitor) 10 mg PO DIN [facility] Last Admin: 03/17/18 18:06 Dose: 10 mg Cholecalciferol (Vitamin D) 1,000 intlu PO DAILY [facility] Last Admin: 03/18/18 09:23 Dose: 1,000 intlu Cyanocobalamin (Vitamin B12 1000 Mcg Tab) 1,000 mcg PO BID [facility] Last Admin: 03/18/18 09:23 Dose: 1,000 mcg Doxycycline Hyclate (Doryx) 100 mg PO BID [facility] PRN Reason: Protocol Last Admin: 03/18/18 09:23 Dose: 100 mg Heparin Sodium (Porcine) (Heparin) 5,000 units SC Q8 [facility] PRN Reason: Protocol Sodium Chloride (Sodium Chloride 0.9%) 1,500 mls @ 75 mls/hr IV .Q20H [facility] Last Admin: 03/17/18 18:16 Dose: 75 mls/hr Insulin Human Regular (Humulin R Med) 0 units SC ACHS [facility] PRN Reason: Protocol Last Admin: 03/18/18 11:55 Dose: 7 units Isosorbide Dinitrate (Isordil) 60 mg PO DAILY [facility] Metoprolol Tartrate (Lopressor) 100 mg PO BRKDIN [facility] Last Admin: 03/18/18 09:23 Dose: 100 mg Morphine Sulfate (Morphine) 1 mg IVP Q3H PRN PRN Reason: Pain, severe (8-10) Last Admin: 03/18/18 11:54 Dose: 1 mg Multivitamins (Thera Tab) 1 tab PO DAILY [facility] Last Admin: 03/18/18 09:24 Dose: 1 tab Magnesium Glycinate [Mag Glycinate] 500 Mg 500 mg PO DAILY [facility] Ondansetron HCl (Zofran Inj) 4 mg IVP Q6H PRN PRN Reason: Nausea/Vomiting Pantoprazole Sodium (Protonix Inj) 40 mg IVP DAILY [facility] Last Admin: 03/18/18 09:24 Dose: 40 mg Primidone (Mysoline) 50 mg PO HS [facility] Last Admin: 03/17/18 21:40 Dose: 50 mg - Labs Labs: 03/18/18 06:15 03/18/18 06:15 - Constitutional Appears: Well - Head Exam Head Exam: ATRAUMATIC, NORMAL INSPECTION, NORMOCEPHALIC - Eye Exam Eye Exam: EOMI, Normal appearance, PERRL Pupil Exam: NORMAL ACCOMODATION, PERRL - ENT Exam ENT Exam: Mucous Membranes Moist, Normal Exam - Neck Exam Neck Exam: Full ROM, Normal Inspection. absent: Lymphadenopathy - Respiratory Exam Respiratory Exam: Clear to Ausculation Bilateral, NORMAL BREATHING PATTERN - Cardiovascular Exam Cardiovascular Exam: REGULAR RHYTHM, +S1, +S2. absent: Murmur - GI/Abdominal Exam GI & Abdominal Exam: Soft, Normal Bowel Sounds. absent: Tenderness - Extremities Exam Extremities Exam: Full ROM, Normal Capillary Refill, Normal Inspection. absent : Joint Swelling, Pedal Edema - Back Exam Back Exam: NORMAL INSPECTION - Neurological Exam Neurological Exam: Alert, Awake, CN II-XII Intact, Normal Gait, Oriented x3 - Psychiatric Exam Psychiatric exam: Normal Affect, Normal Mood - Skin Skin Exam: Dry, Intact, Normal Color, Warm Assessment and Plan (1) Pancreatitis Assessment & Plan: GI (Genoveva) CLD Zofran Morphine NS @ 75, low because of CHF Status: Acute (2) Amputated toe Assessment & Plan: Pods (Cortés) ID (Nnamdi) Patient has been on Augmentin/doxy. Will need ID to see if we can change antibiotics Status: Chronic (3) CHF (congestive heart failure) Assessment & Plan: Lipitor 10 PO QD ASA 81mg QD Metoprolol 100 PO BID Isordil 60 PO QD Primidone 50 PO HS Status: Chronic (4) Prophylactic measure Assessment & Plan: heparin SC Q8 Protonix 50 IV QD SCD Status: Acute <Doris eKlley B - Last Filed: 03/19/18 11:50> Objective - Vital Signs/Intake and Output Vital Signs (last 24 hours): Temp Pulse Resp BP Pulse Ox 97.5 F L 66 20 121/61 100 03/19/18 08:29 03/19/18 08:29 03/19/18 08:29 03/19/18 08:29 03/19/18 08:29 Intake and Output: 03/19/18 03/19/18 06:59 18:59 Intake Total 120 Balance 120 - Medications Medications: Current Medications Ascorbic Acid (Vitamin C 500 Mg Tab) 500 mg PO DAILY [facility] Last Admin: 03/19/18 09:40 Dose: 500 mg Aspirin (Ecotrin) 81 mg PO DAILY [facility] Last Admin: 03/19/18 09:40 Dose: 81 mg Atorvastatin Calcium (Lipitor) 10 mg PO DIN [facility] Last Admin: 03/18/18 17:21 Dose: 10 mg Cholecalciferol (Vitamin D) 1,000 intlu PO DAILY [facility] Last Admin: 03/19/18 09:40 Dose: 1,000 intlu Cyanocobalamin (Vitamin B12 1000 Mcg Tab) 1,000 mcg PO BID [facility] Last Admin: 03/19/18 09:44 Dose: 1,000 mcg Heparin Sodium (Porcine) (Heparin) 5,000 units SC Q8 [facility] PRN Reason: Protocol Last Admin: 03/19/18 05:40 Dose: 5,000 units Piperacillin Sod/Tazobactam Sod (Zosyn 2.25 Gm In 0.9% 100 Ml) 2.25 gm in 100 mls @ 100 mls/hr IVPB Q8 [facility] PRN Reason: Protocol Stop: 03/25/18 22:01 Last Admin: 03/19/18 05:35 Dose: 100 mls/hr Insulin Human Regular (Humulin R Med) 0 units SC ACHS [facility] PRN Reason: Protocol Last Admin: 03/19/18 07:23 Dose: Not Given Isosorbide Dinitrate (Isordil) 60 mg PO DAILY [facility] Last Admin: 03/19/18 09:44 Dose: 60 mg Metoprolol Tartrate (Lopressor) 100 mg PO BRKDIN [facility] Last Admin: 03/19/18 08:01 Dose: 100 mg Morphine Sulfate (Morphine) 1 mg IVP Q3H PRN PRN Reason: Pain, severe (8-10) Last Admin: 03/19/18 07:32 Dose: 1 mg Multivitamins (Thera Tab) 1 tab PO DAILY [facility] Last Admin: 03/19/18 09:44 Dose: 1 tab Magnesium Glycinate [Mag Glycinate] 500 Mg 500 mg PO DAILY [facility] Last Admin: 03/19/18 09:40 Dose: Not Given Ondansetron HCl (Zofran Inj) 4 mg IVP Q6H PRN PRN Reason: Nausea/Vomiting Pantoprazole Sodium (Protonix Inj) 40 mg IVP DAILY [facility] Last Admin: 03/19/18 09:40 Dose: 40 mg Primidone (Mysoline) 50 mg PO HS [facility] Last Admin: 03/18/18 21:29 Dose: 50 mg - Labs Labs: 03/19/18 07:00 03/19/18 07:00 Attending/Attestation - Attestation I have personally seen and examined this patient.: Yes I have fully participated in the care of the patient.: Yes I have reviewed all pertinent clinical information, including history, physical exam and plan: Yes Notes (Text): I have seen and examined the patient at the bedside. Agree with the above note with the following additions/ exceptions: Briefly this is 71 year old female with history of CAD s/p CABG, cardiomyopathy, CHF due to systolic dysfunction ( EF~33%), CKD stage 4, DM-2, AAA s/p repair, coloectomy due to surgical complication, came to the ED for abdominal pain. elevate lipase most likely due to pancreatits. CT was unremarkable. Will start clear liquid diet. Patient had cholecystectomy in the past. Denies use of alcohol. She was on augmentin and doxy for diabetic foot s/p toe resection. Will hold tetracycline as there is some evidence of doxy causing drug induced pancreatitis. Will consult ID. Upon discharge patient will follow up with Dr Walters.
[2018-03-18] MEDS: Piperacillin/Tazobact 2.25gm 2.25 GM/100 ML BAG IVPB SCH (21:29)
[2018-03-19] MEDS: Insulin Reg-MEDIUM-Coverage SC SCH ×4 (01:26→17:18)
[2018-03-19] MEDS: Morphine 4 mg/ml ISec IVP PRN ×5 (02:19→22:14)
[2018-03-19] MEDS: Sodium Chloride 0.9% 1,500 ML IV SCH ×2 (03:40→09:40)
[2018-03-19] MEDS: Piperacillin/Tazobact 2.25gm 2.25 GM/100 ML BAG IVPB SCH ×3 (05:35→22:05)
[2018-03-19 07:58] LABS: BASO # 0.02 K/mm3 (0.0-2.0); BASO % 0.2 % (0.0-3.0); EOS # 0.3 (0.0-0.7); EOS % 2.7 % (1.5-5.0); GRAN # 8.41 (1.4-6.5); GRAN % 66.8 % (50.0-68.0); HEMOGLOBIN 12.1 g/dL (12.0-16.0); LYMPH # 2.9 (1.2-3.4); LYMPH % 22.7 % (22.0-35.0); MEAN CELL VOLUME 93.4 fl (80.0-105.0); MEAN CORPUSCULAR HEMOGLOBIN 30.6 pg (25.0-35.0); MEAN CORPUSCULAR HGB CONC 32.7 g/dl (31.0-37.0); MEAN PLATELET VOLUME 10.8 fl (7.0-11.0); MONO % 7.6 % (1.0-6.0); RBC 3.96 10^6/uL (3.5-6.1); RED CELL DISTRIBUTION WIDTH 13.1 % (11.5-14.5); WHITE BLOOD COUNT 12.6 10^3/ul (4.5-11.0)
[2018-03-19 08:04] LABS: ALB/GLOB RATIO 0.9 (1.1-1.8); ALBUMIN 2.9 g/dL (3.0-4.8); CALCIUM 8.3 mg/dL (8.4-10.5)
[2018-03-19] MEDS: Cholecalciferol 1,000 INTLU TAB PO SCH (09:40)
[2018-03-19] MEDS: MAGNESIUM GLYCINATE PO SCH (09:40)
[2018-03-19] MEDS: Multivitamin Therapeutic Tab PO SCH (09:44)
--- NOTE | 2018-03-19 09:48 | PN ---
DATE: 03/19/2018 TIME OF PROGRESS NOTE: 0700 hours. LOCATION OF THE PATIENT: In room 571, bed 2 of [facility]. SUBJECTIVE: The patient was admitted 2 days ago with acute onset of epigastric abdominal pain and progressive worsening over several days. She is currently inpatient, actively under workup for possible pancreatitis. Her past medical history includes significant diabetes with neuropathy; previous amputations; most recently is 02/25/2018, the left second toe was amputated for osteomyelitis of the digit. She is currently finishing a prolonged course of oral antibiotic at home prior to this episode. Past medical history is also positive for significant CAD, previous aortic repair, previous abdominal surgery with complications, significant neuropathy, hypertension, CKD and weak ambulation because of neuropathy and prior amputations. Other than her current GI complaints, the patient reports no complaints of discomfort or pain or problems with bandaging of the feet or the left foot particularly. OBJECTIVE: The patient is coming out of the bathroom this morning, alert and oriented x3. Vital signs stable. Ambulating with assistance. She lies in the bed for examination. Her vital signs are stable. She is in no apparent acute distress. The bilateral lower extremity examination reveals no evidence of significant lower extremity edema. There is the bandaging on the left foot where there remains a partial-thickness, less than 0.5 cm diameter improving diabetic ulcer under the stump of the previously amputated first toe. There is the surgical wound site approximately 3 weeks old today with 6 simple sutures and a well coapted incision with no evidence of erythema. No discharge noted. There is no erythema in the left foot at all. There is no proximal lymphangitis or striations. There is no decubitus on the heel or the ankle of either foot. There is a small dry blood blister at the distal tuft of the right third toe. There is a standard onychomycosis of the remaining toes and a significant pes planovalgus and ankle valgus consistent with her neuro arthropathy. ASSESSMENT AND PLAN: This is a 73-year-old white female, well known to me, currently admitted for gastrointestinal workup and possible pancreatitis, who is 3 weeks status post amputation of left second digit and no other significant pedal complaints. We elected to perform suture removal this morning using suture removal kit at the bedside. All 6 simple sutures were removed from the surgical site. There is no dehiscence. There is no discharge. There is no failure of the coaptation of the incisional edges. The small one half centimeter partial thickness remaining ulceration on the stump of the left first toe is cleaned. It is dressed with an Optifoam and Hydrogel. The surgical suture removal site is painted with Betadine, just a dry gauze. The patient will undergo dressing changes every 1 to 2 days with Hydrogel and Optifoam on the remaining ulcer. She will continue to use her cut open postoperative surgical shoe on the left side with her diabetic insole to ensure completion of the ulcer care on the left side. My resident will follow the patient during her hospital course for her pedal conditions and we will follow the patient after discharge in our office as per usual. Vinnie Cortés DPM
--- NOTE | 2018-03-19 11:23 | CP.PCM.PN ---
<Aishwarya Alicia - Last Filed: 03/19/18 14:00> Subjective - Date & Time of Evaluation Date of Evaluation: 03/19/18 Time of Evaluation: 07:20 - Subjective Subjective: IM progress note for Dr. Mela Alicia, PGY-1 Pt S & E at bedside at 0720 Pt reports continued, mild-moderate periumbilical & epigastric pain. Having normal fecal output to ileostomy. Denies N & V, F & C, diarrhea, constipation, chest pain, SOB. Objective - Vital Signs/Intake and Output Vital Signs (last 24 hours): Temp Pulse Resp BP Pulse Ox 97.5 F L 66 20 121/61 100 03/19/18 08:29 03/19/18 08:29 03/19/18 08:29 03/19/18 08:29 03/19/18 08:29 Intake and Output: 03/19/18 03/19/18 06:59 18:59 Intake Total 120 Balance 120 - Medications Medications: Current Medications Ascorbic Acid (Vitamin C 500 Mg Tab) 500 mg PO DAILY [facility] Last Admin: 03/19/18 09:40 Dose: 500 mg Aspirin (Ecotrin) 81 mg PO DAILY [facility] Last Admin: 03/19/18 09:40 Dose: 81 mg Atorvastatin Calcium (Lipitor) 10 mg PO DIN [facility] Last Admin: 03/18/18 17:21 Dose: 10 mg Cholecalciferol (Vitamin D) 1,000 intlu PO DAILY [facility] Last Admin: 03/19/18 09:40 Dose: 1,000 intlu Cyanocobalamin (Vitamin B12 1000 Mcg Tab) 1,000 mcg PO BID [facility] Last Admin: 03/19/18 09:44 Dose: 1,000 mcg Heparin Sodium (Porcine) (Heparin) 5,000 units SC Q8 [facility] PRN Reason: Protocol Last Admin: 03/19/18 05:40 Dose: 5,000 units Sodium Chloride (Sodium Chloride 0.9%) 1,500 mls @ 75 mls/hr IV .Q20H [facility] Last Admin: 03/19/18 09:40 Dose: 75 mls/hr Piperacillin Sod/Tazobactam Sod (Zosyn 2.25 Gm In 0.9% 100 Ml) 2.25 gm in 100 mls @ 100 mls/hr IVPB Q8 [facility] PRN Reason: Protocol Stop: 03/25/18 22:01 Last Admin: 03/19/18 05:35 Dose: 100 mls/hr Insulin Human Regular (Humulin R Med) 0 units SC ACHS [facility] PRN Reason: Protocol Last Admin: 03/19/18 07:23 Dose: Not Given Isosorbide Dinitrate (Isordil) 60 mg PO DAILY [facility] Last Admin: 03/19/18 09:44 Dose: 60 mg Metoprolol Tartrate (Lopressor) 100 mg PO BRKDIN [facility] Last Admin: 03/19/18 08:01 Dose: 100 mg Morphine Sulfate (Morphine) 1 mg IVP Q3H PRN PRN Reason: Pain, severe (8-10) Last Admin: 03/19/18 07:32 Dose: 1 mg Multivitamins (Thera Tab) 1 tab PO DAILY [facility] Last Admin: 03/19/18 09:44 Dose: 1 tab Magnesium Glycinate [Mag Glycinate] 500 Mg 500 mg PO DAILY [facility] Last Admin: 03/19/18 09:40 Dose: Not Given Ondansetron HCl (Zofran Inj) 4 mg IVP Q6H PRN PRN Reason: Nausea/Vomiting Pantoprazole Sodium (Protonix Inj) 40 mg IVP DAILY [facility] Last Admin: 03/19/18 09:40 Dose: 40 mg Primidone (Mysoline) 50 mg PO HS [facility] Last Admin: 03/18/18 21:29 Dose: 50 mg - Labs Labs: 03/19/18 07:00 03/19/18 07:00 - Constitutional Appears: Non-toxic, No Acute Distress - Head Exam Head Exam: ATRAUMATIC, NORMAL INSPECTION, NORMOCEPHALIC - Eye Exam Eye Exam: EOMI, Normal appearance - ENT Exam ENT Exam: Mucous Membranes Moist, Normal Exam - Neck Exam Neck Exam: Full ROM, Normal Inspection - Respiratory Exam Respiratory Exam: Clear to Ausculation Bilateral, NORMAL BREATHING PATTERN. absent: Rales, Rhonchi, Wheezes - Cardiovascular Exam Cardiovascular Exam: REGULAR RHYTHM, +S1, +S2 - GI/Abdominal Exam GI & Abdominal Exam: Soft, Tenderness (epigastric, periumbilical), Normal Bowel Sounds. absent: Distended, Guarding, Rigid - Extremities Exam Extremities Exam: Full ROM, Normal Inspection - Neurological Exam Neurological Exam: Alert, Awake, CN II-XII Intact, Oriented x3 - Psychiatric Exam Psychiatric exam: Normal Affect, Normal Mood - Skin Skin Exam: Dry, Intact, Normal Color, Warm Assessment and Plan - Assessment and Plan (Free Text) Assessment: 73F w/abdominal pain 2/2 pancreatitis Plan: pancreatitis FLD Zofran Morphine NS@75 FU Ab U/S FU urine cx GI following Amputated toe Zosyn FU blood cx Pods following- cont abx, ambulate w/surgical shoe, wound care ID following DM ISS Accuchecks Diabetic diet CHF Lipitor ASA Metoprolol Isordil Primidone Vitamin imbalances Cont home med- Vitamin D, MV, Mag glycinate GI/DVT ppx Heparin PTX SCD Dispo: PT cameron STARR attending Maral, PGY-1 <Doris Kelley B - Last Filed: 03/19/18 14:40> Objective - Vital Signs/Intake and Output Vital Signs (last 24 hours): Temp Pulse Resp BP Pulse Ox 97.5 F L 66 20 121/61 100 03/19/18 08:29 03/19/18 08:29 03/19/18 08:29 03/19/18 08:29 03/19/18 08:29 Intake and Output: 03/19/18 03/19/18 06:59 18:59 Intake Total 120 Balance 120 - Medications Medications: Current Medications Ascorbic Acid (Vitamin C 500 Mg Tab) 500 mg PO DAILY [facility] Last Admin: 03/19/18 09:40 Dose: 500 mg Aspirin (Ecotrin) 81 mg PO DAILY [facility] Last Admin: 03/19/18 09:40 Dose: 81 mg Atorvastatin Calcium (Lipitor) 10 mg PO DIN [facility] Last Admin: 03/18/18 17:21 Dose: 10 mg Cholecalciferol (Vitamin D) 1,000 intlu PO DAILY [facility] Last Admin: 03/19/18 09:40 Dose: 1,000 intlu Cyanocobalamin (Vitamin B12 1000 Mcg Tab) 1,000 mcg PO BID [facility] Last Admin: 03/19/18 09:44 Dose: 1,000 mcg Heparin Sodium (Porcine) (Heparin) 5,000 units SC Q8 [facility] PRN Reason: Protocol Last Admin: 03/19/18 13:30 Dose: Not Given Piperacillin Sod/Tazobactam Sod (Zosyn 2.25 Gm In 0.9% 100 Ml) 2.25 gm in 100 mls @ 100 mls/hr IVPB Q8 [facility] PRN Reason: Protocol Stop: 03/25/18 22:01 Last Admin: 03/19/18 13:30 Dose: 100 mls/hr Insulin Human Regular (Humulin R Med) 0 units SC ACHS [facility] PRN Reason: Protocol Last Admin: 03/19/18 11:40 Dose: Not Given Isosorbide Dinitrate (Isordil) 60 mg PO DAILY [facility] Last Admin: 03/19/18 09:44 Dose: 60 mg Metoprolol Tartrate (Lopressor) 100 mg PO BRKDIN [facility] Last Admin: 03/19/18 08:01 Dose: 100 mg Morphine Sulfate (Morphine) 1 mg IVP Q3H PRN PRN Reason: Pain, severe (8-10) Last Admin: 03/19/18 13:15 Dose: 1 mg Multivitamins (Thera Tab) 1 tab PO DAILY [facility] Last Admin: 03/19/18 09:44 Dose: 1 tab Magnesium Glycinate [Mag Glycinate] 500 Mg 500 mg PO DAILY [facility] Last Admin: 03/19/18 09:40 Dose: Not Given Ondansetron HCl (Zofran Inj) 4 mg IVP Q6H PRN PRN Reason: Nausea/Vomiting Pantoprazole Sodium (Protonix Inj) 40 mg IVP DAILY [facility] Last Admin: 03/19/18 09:40 Dose: 40 mg Primidone (Mysoline) 50 mg PO HS [facility] Last Admin: 03/18/18 21:29 Dose: 50 mg - Labs Labs: 03/19/18 07:00 03/19/18 07:00 Attending/Attestation - Attestation I have personally seen and examined this patient.: Yes I have fully participated in the care of the patient.: Yes I have reviewed all pertinent clinical information, including history, physical exam and plan: Yes Notes (Text): I have seen and examined the patient at the bedside. Agree with the above note with the following additions/ exceptions: Briefly this is 71 year old female with history of CAD s/p CABG, cardiomyopathy, CHF due to systolic dysfunction ( EF~33%), CKD stage 4, DM-2, AAA s/p repair, coloectomy due to surgical complication, came to the ED for abdominal pain, elevated lipase most likely due to pancreatits. CT was unremarkable. Patient is tolerating clear liquid diet. Patient had cholecystectomy in the past. Denies use of alcohol. She was on augmentin and doxy for diabetic foot infection s/p toe resection. Will hold tetracycline as there is some evidence of tetracycline causing drug induced pancreatitis. ID consult appreciated. Antibiotics switched to zosyn for now. Etiology of pancreatitis is unclear. US ordered to rule out CBD stone. Upon discharge patient will follow up with Dr Walters.
--- NOTE | 2018-03-19 11:45 | CP.PCM.PN ---
<Emy Holder - Last Filed: 03/20/18 07:23> Subjective - Date & Time of Evaluation Date of Evaluation: 03/19/18 Time of Evaluation: 10:30 - Subjective Subjective: PGY-[address] Tomas's service Patient seen and examined at bedside. No acute distress. Patient states the pain is better and she denies n/v, diarrhea. Patient states that she is tolerating the CLD, and has an appetite and would like at advance her diet. Objective - Vital Signs/Intake and Output Vital Signs (last 24 hours): Temp Pulse Resp BP Pulse Ox 97.5 F L 66 20 121/61 100 03/19/18 08:29 03/19/18 08:29 03/19/18 08:29 03/19/18 08:29 03/19/18 08:29 Intake and Output: 03/19/18 03/19/18 06:59 18:59 Intake Total 120 Balance 120 - Medications Medications: Current Medications Ascorbic Acid (Vitamin C 500 Mg Tab) 500 mg PO DAILY [facility] Last Admin: 03/19/18 09:40 Dose: 500 mg Aspirin (Ecotrin) 81 mg PO DAILY [facility] Last Admin: 03/19/18 09:40 Dose: 81 mg Atorvastatin Calcium (Lipitor) 10 mg PO DIN [facility] Last Admin: 03/18/18 17:21 Dose: 10 mg Cholecalciferol (Vitamin D) 1,000 intlu PO DAILY [facility] Last Admin: 03/19/18 09:40 Dose: 1,000 intlu Cyanocobalamin (Vitamin B12 1000 Mcg Tab) 1,000 mcg PO BID [facility] Last Admin: 03/19/18 09:44 Dose: 1,000 mcg Heparin Sodium (Porcine) (Heparin) 5,000 units SC Q8 [facility] PRN Reason: Protocol Last Admin: 03/19/18 05:40 Dose: 5,000 units Piperacillin Sod/Tazobactam Sod (Zosyn 2.25 Gm In 0.9% 100 Ml) 2.25 gm in 100 mls @ 100 mls/hr IVPB Q8 [facility] PRN Reason: Protocol Stop: 03/25/18 22:01 Last Admin: 03/19/18 05:35 Dose: 100 mls/hr Insulin Human Regular (Humulin R Med) 0 units SC ACHS [facility] PRN Reason: Protocol Last Admin: 03/19/18 11:40 Dose: Not Given Isosorbide Dinitrate (Isordil) 60 mg PO DAILY [facility] Last Admin: 03/19/18 09:44 Dose: 60 mg Metoprolol Tartrate (Lopressor) 100 mg PO BRKDIN [facility] Last Admin: 03/19/18 08:01 Dose: 100 mg Morphine Sulfate (Morphine) 1 mg IVP Q3H PRN PRN Reason: Pain, severe (8-10) Last Admin: 03/19/18 07:32 Dose: 1 mg Multivitamins (Thera Tab) 1 tab PO DAILY [facility] Last Admin: 03/19/18 09:44 Dose: 1 tab Magnesium Glycinate [Mag Glycinate] 500 Mg 500 mg PO DAILY [facility] Last Admin: 03/19/18 09:40 Dose: Not Given Ondansetron HCl (Zofran Inj) 4 mg IVP Q6H PRN PRN Reason: Nausea/Vomiting Pantoprazole Sodium (Protonix Inj) 40 mg IVP DAILY [facility] Last Admin: 03/19/18 09:40 Dose: 40 mg Primidone (Mysoline) 50 mg PO HS [facility] Last Admin: 03/18/18 21:29 Dose: 50 mg - Labs Labs: 03/19/18 07:00 03/19/18 07:00 - Constitutional Appears: No Acute Distress - Head Exam Head Exam: ATRAUMATIC, NORMAL INSPECTION, NORMOCEPHALIC - Eye Exam Eye Exam: EOMI, Normal appearance - ENT Exam ENT Exam: Mucous Membranes Moist - Respiratory Exam Respiratory Exam: Clear to Ausculation Bilateral, NORMAL BREATHING PATTERN. absent: Rales, Rhonchi, Wheezes, Respiratory Distress, Stridor - Cardiovascular Exam Cardiovascular Exam: REGULAR RHYTHM, +S1, +S2. absent: Bradycardia, Tachycardia , Murmur - GI/Abdominal Exam GI & Abdominal Exam: Soft, Tenderness, Normal Bowel Sounds. absent: Distended, Firm, Guarding, Hypoactive Bowel Sounds - Extremities Exam Extremities Exam: Normal Inspection. absent: Pedal Edema, Tenderness - Neurological Exam Neurological Exam: Alert, Awake, Oriented x3 - Skin Skin Exam: Dry, Intact, Normal Color, Warm Assessment and Plan - Assessment and Plan (Free Text) Assessment: 71 yo Female with PMH CAD s/p CABG, cardiomyopathy, CHF s/p pacemaker placement , DM type 2, CKD stage 4, AAA s/p repair, coloectomy due to surgical complication, came to the ED for abdominal pain due to pancreatits vs enteritis vs ischemic bowel . Plan: - CT abd/pel without contrast showed no acute findings - patient can not have MRI due to pacemaker - US is pending - continue abx - diet advance to full liquid diet - consider EUS if no improvement case seen and discussed with Dr. Tomas <Crystal Tomas V - Last Filed: 03/21/18 00:00> Objective - Vital Signs/Intake and Output Vital Signs (last 24 hours): Temp Pulse Resp BP Pulse Ox 98.2 F 66 22 133/77 97 03/20/18 22:00 03/20/18 22:00 03/20/18 22:00 03/20/18 22:00 03/20/18 22:00 Intake and Output: 03/20/18 03/21/18 18:59 06:59 Intake Total 720 960 Output Total 4 Balance 720 956 - Medications Medications: Current Medications Ascorbic Acid (Vitamin C 500 Mg Tab) 500 mg PO DAILY [facility] Last Admin: 03/20/18 09:23 Dose: 500 mg Aspirin (Ecotrin) 81 mg PO DAILY [facility] Last Admin: 03/20/18 09:23 Dose: 81 mg Atorvastatin Calcium (Lipitor) 10 mg PO DIN [facility] Last Admin: 03/20/18 17:39 Dose: 10 mg Cholecalciferol (Vitamin D) 1,000 intlu PO DAILY [facility] Last Admin: 03/20/18 09:22 Dose: 1,000 intlu Cyanocobalamin (Vitamin B12 1000 Mcg Tab) 1,000 mcg PO BID [facility] Last Admin: 03/20/18 17:39 Dose: 1,000 mcg Heparin Sodium (Porcine) (Heparin) 5,000 units SC Q8 [facility] PRN Reason: Protocol Last Admin: 03/20/18 21:33 Dose: 5,000 units Insulin Human Regular (Humulin R Med) 0 units SC ACHS [facility] PRN Reason: Protocol Last Admin: 03/20/18 16:49 Dose: 3 units Isosorbide Dinitrate (Isordil) 60 mg PO DAILY [facility] Last Admin: 03/20/18 09:22 Dose: 60 mg Metoprolol Tartrate (Lopressor) 100 mg PO BRKDIN [facility] Last Admin: 03/20/18 17:38 Dose: 100 mg Multivitamins (Thera Tab) 1 tab PO DAILY [facility] Last Admin: 03/20/18 09:22 Dose: 1 tab Magnesium Glycinate [Mag Glycinate] 500 Mg 500 mg PO DAILY [facility] Last Admin: 03/20/18 10:00 Dose: Not Given Ondansetron HCl (Zofran Inj) 4 mg IVP Q6H PRN PRN Reason: Nausea/Vomiting Pantoprazole Sodium (Protonix Ec Tab) 40 mg PO ACB [facility] Primidone (Mysoline) 50 mg PO HS [facility] Last Admin: 03/20/18 21:33 Dose: 50 mg - Labs Labs: 03/20/18 06:30 03/20/18 06:30 Attending/Attestation - Attestation I have personally seen and examined this patient.: Yes I have fully participated in the care of the patient.: Yes I have reviewed all pertinent clinical information, including history, physical exam and plan: Yes Notes (Text): This is an addendum to GI progress report dictated by the [employer]maker [employer].The patient was seen and examined earlier. Medical records, lab studies, imagings were reviewed. Last 24 hours events reviewed. Agreed with the above treatment plan as outlined in [employer] 's notes the with the addition of the following 03/21/18 00:00
--- NOTE | 2018-03-19 16:02 | US ---
HISTORY: ab pain COMPARISON: None. TECHNIQUE: Sonographic evaluation of the abdomen. FINDINGS: LIVER: Measures 15.3 cm. Normal echogenicity of the liver parenchyma. No mass. No intrahepatic bile duct dilatation. GALLBLADDER: Removed COMMON BILE DUCT: Measures 10 mm. No stones. No dilatation. PANCREAS: Unremarkable as visualized. No mass. No ductal dilatation. RIGHT KIDNEY: Measures 11.7 x 5.0 x 4.5cm. Normal echogenicity. No calculus, mass, or hydronephrosis. Multiple simple cysts ranging in size from 1-1.8 cm LEFT KIDNEY: Measures 10.3 x 4.8 x 4.8cm. Normal echogenicity. No calculus, mass, or hydronephrosis. Multiple simple cysts ranging in size from 0.9 cm to 2.5 cm SPLEEN: Normal in size and contour. No mass. 9.0 x 4.2 x 4.4 cm AORTA: No aneurysmal dilatation. IVC: Unremarkable. OTHER FINDINGS: None. IMPRESSION: No acute findings
--- NOTE | 2018-03-20 01:41 | CON ---
DATE: 03/19/2018 HISTORY OF PRESENT ILLNESS: The patient is in bed, in room 571, bed 2, was seen. The patient's at the bedside. Had complained of a chief complaint of abdominal pain times several days. HISTORY OF PRESENT ILLNESS: This is a 73-year-old female, known from previous admissions with chronic obstructive lung disease that is end-stage with diabetes mellitus, congestive heart failure, cardiomyopathy, peripheral artery disease, hypertension, ischemic colitis, renal insufficiency, history of Clostridium bacteremia, who has had colectomy, ileostomy, coronary bypass graft, cholecystectomy, abdominal aortic aneurysm repair, cataract surgery, tonsillectomy, has a pacemaker. Has allergy to shellfish. Admitted with diagnosis of abdominal pain. Infectious Disease consultation requested. The patient has had abdominal pain in her midepigastric location and radiating to the back, associated with nausea and no fevers and no chills. No chest pain or shortness of breath. No dysuria or frequency. No headaches or blurred vision. No new joint pain. REVIEW OF SYSTEMS: Twelve-point review of systems is performed. PAST MEDICAL HISTORY: Significant for end-stage chronic obstructive lung disease, also with diabetes mellitus, cardiomyopathy, congestive heart failure, peripheral artery disease, hypertension, ischemic colitis, renal insufficiency, Clostridium bacteremia. PAST SURGICAL HISTORY: Significant for tonsillectomy, pacemaker, cataract surgery, abdominal aortic aneurysm repair, cholecystectomy, coronary artery bypass graft, ileostomy and colectomy. The patient is allergic to shellfish. MEDICATIONS: With pravastatin, pantoprazole, primidone, vitamins, metoprolol, isosorbide, insulin, Lasix. PHYSICAL EXAMINATION: VITAL SIGNS: The patient is in bed with a temperature of 97, blood pressure is 130/60, respiratory rate of 20, heart rate of 58. HEENT: Examination of HEENT is unremarkable. NECK: Supple. LUNGS: Have decreased breath sounds. HEART: Normal S1, S2. ABDOMEN: Mild tenderness. No rebound or guarding. No masses. LABORATORY DATA: Laboratory examination reveals a white count of 12,600, it was as high as 15,000; hemoglobin of 13; platelets of 196. BUN of 69, creatinine of 1.8, creatinine was higher at 2.4. The patient has had renal disease. The patient's lipase is almost 2873. Urinalysis is noted. ASSESSMENT AND PLAN: A 73-year-old female with end-stage chronic obstructive lung disease, diabetes, congestive heart failure and cardiomyopathy, peripheral artery disease, hypertension, ischemic colitis, renal insufficiency, Clostridium bacteremia in the past, presenting with epigastric pain consistent with pancreatitis and with elevated lipase. The patient meets the #1 criteria for pancreatitis, although had a CT scan which was negative for pancreatitis. The patient's urine culture is negative. The blood cultures are pending. Must rule out gastrointestinal pathology, retained stones, although the CAT scan does not show. An ultrasound of the abdomen is also negative and alk phos is mildly elevated. We will treat the patient with Zosyn, must also rule out medication induced. On the summary, it is written that the patient is on doxycycline and as the patient was on doxycycline as outpatient, it can cause pancreatitis. We will obtain more information on that and we will make further recommendations upon availability of the gastrointestinal workup and we will follow with you. José Luis Trevino MD
[2018-03-20] MEDS: Morphine 4 mg/ml ISec IVP PRN ×2 (04:10→09:22)
[2018-03-20] MEDS: Insulin Reg-MEDIUM-Coverage SC SCH ×5 (04:31→22:03)
[2018-03-20] MEDS: Piperacillin/Tazobact 2.25gm 2.25 GM/100 ML BAG IVPB SCH (05:22)
[2018-03-20 06:55] LABS: BASO # 0.03 K/mm3 (0.0-2.0); BASO % 0.2 % (0.0-3.0); EOS # 0.4 (0.0-0.7); EOS % 2.7 % (1.5-5.0); GRAN # 10.12 (1.4-6.5); GRAN % 72.3 % (50.0-68.0); HEMOGLOBIN 12.2 g/dL (12.0-16.0); LYMPH # 2.6 (1.2-3.4); LYMPH % 18.4 % (22.0-35.0); MEAN CELL VOLUME 94.7 fl (80.0-105.0); MEAN CORPUSCULAR HEMOGLOBIN 30.8 pg (25.0-35.0); MEAN CORPUSCULAR HGB CONC 32.5 g/dl (31.0-37.0); MEAN PLATELET VOLUME 10.8 fl (7.0-11.0); MONO # 0.9 (0.1-0.6); MONO % 6.4 % (1.0-6.0); RBC 3.96 10^6/uL (3.5-6.1); RED CELL DISTRIBUTION WIDTH 13.3 % (11.5-14.5)
[2018-03-20 07:08] LABS: ALB/GLOB RATIO 0.8 (1.1-1.8); ALBUMIN 2.8 g/dL (3.0-4.8); CALCIUM 8.4 mg/dL (8.4-10.5)
--- NOTE | 2018-03-20 08:22 | CP.PCM.PN ---
<Vinod Hester - Last Filed: 03/20/18 14:34> Subjective - Date & Time of Evaluation Date of Evaluation: 03/20/18 Time of Evaluation: 09:00 - Subjective Subjective: Medicine Note for Dr. eVntura Patient seen and examined at bedside. No acute event overnight. Patient has mild pain today but states has improved. SHe is tolerating full liquids. She would like to try soft diet. Denies fever/chills and nausea/vomiting. She is having normal BMs. No other complaints at this time. Objective - Vital Signs/Intake and Output Vital Signs (last 24 hours): Temp Pulse Resp BP Pulse Ox 97.8 F 62 20 151/70 H 97 03/20/18 07:54 03/20/18 07:54 03/20/18 07:54 03/20/18 07:54 03/20/18 07:54 Intake and Output: 03/20/18 03/20/18 06:59 18:59 Intake Total 900 Balance 900 - Medications Medications: Current Medications Ascorbic Acid (Vitamin C 500 Mg Tab) 500 mg PO DAILY [facility] Last Admin: 03/19/18 09:40 Dose: 500 mg Aspirin (Ecotrin) 81 mg PO DAILY [facility] Last Admin: 03/19/18 09:40 Dose: 81 mg Atorvastatin Calcium (Lipitor) 10 mg PO DIN [facility] Last Admin: 03/19/18 17:18 Dose: 10 mg Cholecalciferol (Vitamin D) 1,000 intlu PO DAILY [facility] Last Admin: 03/19/18 09:40 Dose: 1,000 intlu Cyanocobalamin (Vitamin B12 1000 Mcg Tab) 1,000 mcg PO BID [facility] Last Admin: 03/19/18 17:18 Dose: 1,000 mcg Heparin Sodium (Porcine) (Heparin) 5,000 units SC Q8 [facility] PRN Reason: Protocol Last Admin: 03/20/18 05:22 Dose: 5,000 units Piperacillin Sod/Tazobactam Sod (Zosyn 2.25 Gm In 0.9% 100 Ml) 2.25 gm in 100 mls @ 100 mls/hr IVPB Q8 [facility] PRN Reason: Protocol Stop: 03/25/18 22:01 Last Admin: 03/20/18 05:22 Dose: 100 mls/hr Insulin Human Regular (Humulin R Med) 0 units SC ACHS [facility] PRN Reason: Protocol Last Admin: 03/20/18 04:31 Dose: Not Given Isosorbide Dinitrate (Isordil) 60 mg PO DAILY [facility] Last Admin: 03/19/18 09:44 Dose: 60 mg Metoprolol Tartrate (Lopressor) 100 mg PO BRKDIN [facility] Last Admin: 03/19/18 17:18 Dose: 100 mg Morphine Sulfate (Morphine) 1 mg IVP Q3H PRN PRN Reason: Pain, severe (8-10) Last Admin: 03/20/18 04:10 Dose: 1 mg Multivitamins (Thera Tab) 1 tab PO DAILY [facility] Last Admin: 03/19/18 09:44 Dose: 1 tab Magnesium Glycinate [Mag Glycinate] 500 Mg 500 mg PO DAILY [facility] Last Admin: 03/19/18 09:40 Dose: Not Given Ondansetron HCl (Zofran Inj) 4 mg IVP Q6H PRN PRN Reason: Nausea/Vomiting Pantoprazole Sodium (Protonix Inj) 40 mg IVP DAILY [facility] Last Admin: 03/19/18 09:40 Dose: 40 mg Primidone (Mysoline) 50 mg PO HS [facility] Last Admin: 03/19/18 22:04 Dose: 50 mg - Labs Labs: 03/20/18 06:30 03/20/18 06:30 - Additional Findings Additional findings: - Constitutional Appears: Non-toxic, No Acute Distress - Head Exam Head Exam: ATRAUMATIC, NORMAL INSPECTION, NORMOCEPHALIC - Eye Exam Eye Exam: EOMI, Normal appearance - ENT Exam ENT Exam: Mucous Membranes Moist, Normal Exam - Neck Exam Neck Exam: Full ROM, Normal Inspection - Respiratory Exam Respiratory Exam: Clear to Ausculation Bilateral, NORMAL BREATHING PATTERN. absent: Rales, Rhonchi, Wheezes - Cardiovascular Exam Cardiovascular Exam: REGULAR RHYTHM, +S1, +S2 - GI/Abdominal Exam GI & Abdominal Exam: Soft, Tenderness (mild epigastric), Normal Bowel Sounds. absent: Distended, Guarding, Rigid - Extremities Exam Extremities Exam: Full ROM, Normal Inspection - Neurological Exam Neurological Exam: Alert, Awake, CN II-XII Intact, Oriented x3 - Psychiatric Exam Psychiatric exam: Normal Affect, Normal Mood - Skin Skin Exam: Dry, Intact, Normal Color, Warm Assessment and Plan - Assessment and Plan (Free Text) Assessment: 73F presents for acute pancreatitis secondary to outpatient doxycyline use 1. Pancreatitis Sooft Zofran Morphine NS@75 GI consult 2. s/p Left 2nd toe amputation Zosyn f/u blood cx Podiatry consult ambulation with surgical shoe wound care ID consult 3. DM ISS Accuchecks HHD mod carb 4. CHF Lipitor ASA Metoprolol Isordil Primidone Intake and output 5. Prophylactic Measures Heparin PTX SCD PT/OT Case discussed with Dr. Lorenzo Hester PGY1 <Mert Ventura - Last Filed: 03/20/18 17:20> Objective - Vital Signs/Intake and Output Vital Signs (last 24 hours): Temp Pulse Resp BP Pulse Ox 98.6 F 62 20 135/74 98 03/20/18 14:54 03/20/18 14:54 03/20/18 14:54 03/20/18 14:54 03/20/18 14:54 Intake and Output: 03/20/18 03/20/18 06:59 18:59 Intake Total 900 720 Balance 900 720 - Medications Medications: Current Medications Ascorbic Acid (Vitamin C 500 Mg Tab) 500 mg PO DAILY [facility] Last Admin: 03/20/18 09:23 Dose: 500 mg Aspirin (Ecotrin) 81 mg PO DAILY [facility] Last Admin: 03/20/18 09:23 Dose: 81 mg Atorvastatin Calcium (Lipitor) 10 mg PO DIN [facility] Last Admin: 03/19/18 17:18 Dose: 10 mg Cholecalciferol (Vitamin D) 1,000 intlu PO DAILY [facility] Last Admin: 03/20/18 09:22 Dose: 1,000 intlu Cyanocobalamin (Vitamin B12 1000 Mcg Tab) 1,000 mcg PO BID [facility] Last Admin: 03/20/18 09:23 Dose: 1,000 mcg Heparin Sodium (Porcine) (Heparin) 5,000 units SC Q8 [facility] PRN Reason: Protocol Last Admin: 03/20/18 15:20 Dose: 5,000 units Insulin Human Regular (Humulin R Med) 0 units SC ACHS [facility] PRN Reason: Protocol Last Admin: 03/20/18 16:49 Dose: 3 units Isosorbide Dinitrate (Isordil) 60 mg PO DAILY [facility] Last Admin: 03/20/18 09:22 Dose: 60 mg Metoprolol Tartrate (Lopressor) 100 mg PO BRKDIN [facility] Last Admin: 03/20/18 09:24 Dose: 100 mg Multivitamins (Thera Tab) 1 tab PO DAILY [facility] Last Admin: 03/20/18 09:22 Dose: 1 tab Magnesium Glycinate [Mag Glycinate] 500 Mg 500 mg PO DAILY [facility] Last Admin: 03/20/18 10:00 Dose: Not Given Ondansetron HCl (Zofran Inj) 4 mg IVP Q6H PRN PRN Reason: Nausea/Vomiting Pantoprazole Sodium (Protonix Ec Tab) 40 mg PO ACB [facility] Primidone (Mysoline) 50 mg PO HS [facility] Last Admin: 03/19/18 22:04 Dose: 50 mg - Labs Labs: 03/20/18 06:30 03/20/18 06:30 Attending/Attestation - Attestation I have personally seen and examined this patient.: Yes I have fully participated in the care of the patient.: Yes I have reviewed all pertinent clinical information, including history, physical exam and plan: Yes Notes (Text): acute pancreatitis secondary to outpatient doxycyline use
[2018-03-20] MEDS: Multivitamin Therapeutic Tab PO SCH (09:22)
[2018-03-20] MEDS: Cholecalciferol 1,000 INTLU TAB PO SCH (09:22)
[2018-03-20] MEDS: MAGNESIUM GLYCINATE PO SCH (10:00)
--- NOTE | 2018-03-20 10:59 | CP.PCM.PN ---
<Emy Holder - Last Filed: 03/20/18 15:42> Subjective - Date & Time of Evaluation Date of Evaluation: 03/20/18 Time of Evaluation: 09:00 - Subjective Subjective: PGY-[address] Tomas's service Patient seen and examined at bedside. No acute distress. Patient states the pain is better and she denies n/v, diarrhea. Patient states that she is tolerating the CLD, would like at advance her diet. Objective - Vital Signs/Intake and Output Vital Signs (last 24 hours): Temp Pulse Resp BP Pulse Ox 97.8 F 62 20 150/70 97 03/20/18 07:54 03/20/18 09:24 03/20/18 07:54 03/20/18 09:24 03/20/18 07:54 Intake and Output: 03/20/18 03/20/18 06:59 18:59 Intake Total 900 Balance 900 - Medications Medications: Current Medications Ascorbic Acid (Vitamin C 500 Mg Tab) 500 mg PO DAILY [facility] Last Admin: 03/20/18 09:23 Dose: 500 mg Aspirin (Ecotrin) 81 mg PO DAILY [facility] Last Admin: 03/20/18 09:23 Dose: 81 mg Atorvastatin Calcium (Lipitor) 10 mg PO DIN [facility] Last Admin: 03/19/18 17:18 Dose: 10 mg Cholecalciferol (Vitamin D) 1,000 intlu PO DAILY [facility] Last Admin: 03/20/18 09:22 Dose: 1,000 intlu Cyanocobalamin (Vitamin B12 1000 Mcg Tab) 1,000 mcg PO BID [facility] Last Admin: 03/20/18 09:23 Dose: 1,000 mcg Heparin Sodium (Porcine) (Heparin) 5,000 units SC Q8 [facility] PRN Reason: Protocol Last Admin: 03/20/18 05:22 Dose: 5,000 units Piperacillin Sod/Tazobactam Sod (Zosyn 2.25 Gm In 0.9% 100 Ml) 2.25 gm in 100 mls @ 100 mls/hr IVPB Q8 [facility] PRN Reason: Protocol Stop: 03/25/18 22:01 Last Admin: 03/20/18 05:22 Dose: 100 mls/hr Insulin Human Regular (Humulin R Med) 0 units SC ACHS [facility] PRN Reason: Protocol Last Admin: 03/20/18 08:00 Dose: Not Given Isosorbide Dinitrate (Isordil) 60 mg PO DAILY [facility] Last Admin: 03/20/18 09:22 Dose: 60 mg Metoprolol Tartrate (Lopressor) 100 mg PO BRKDIN [facility] Last Admin: 03/20/18 09:24 Dose: 100 mg Multivitamins (Thera Tab) 1 tab PO DAILY [facility] Last Admin: 03/20/18 09:22 Dose: 1 tab Magnesium Glycinate [Mag Glycinate] 500 Mg 500 mg PO DAILY [facility] Last Admin: 03/19/18 09:40 Dose: Not Given Ondansetron HCl (Zofran Inj) 4 mg IVP Q6H PRN PRN Reason: Nausea/Vomiting Pantoprazole Sodium (Protonix Inj) 40 mg IVP DAILY [facility] Last Admin: 03/20/18 09:24 Dose: 40 mg Primidone (Mysoline) 50 mg PO HS [facility] Last Admin: 03/19/18 22:04 Dose: 50 mg - Labs Labs: 03/20/18 06:30 03/20/18 06:30 - Constitutional Appears: No Acute Distress - Head Exam Head Exam: ATRAUMATIC, NORMAL INSPECTION, NORMOCEPHALIC - Eye Exam Eye Exam: EOMI, Normal appearance - ENT Exam ENT Exam: Mucous Membranes Moist - Respiratory Exam Respiratory Exam: NORMAL BREATHING PATTERN. absent: Respiratory Distress - GI/Abdominal Exam GI & Abdominal Exam: Soft. absent: Distended, Firm, Guarding, Rigid, Tenderness , Hernia, Mass - Extremities Exam Extremities Exam: Normal Inspection - Neurological Exam Neurological Exam: Alert, Awake, Oriented x3 Assessment and Plan - Assessment and Plan (Free Text) Assessment: 71 yo Female with PMH CAD s/p CABG, cardiomyopathy, CHF s/p pacemaker placement , DM type 2, CKD stage 4, AAA s/p repair, coloectomy due to surgical complication, came to the ED for abdominal pain due to pancreatits vs enteritis vs ischemic bowel . Plan: - CT abd/pel without contrast showed no acute findings - patient can not have MRI due to pacemaker - US of abd showed no acute findings - lipase down trending - continue reglan - continue abx, will need to be discharged on PO antibiotics for 7-10 days - diet advance to low residual, low fat diet - consider EUS outpatient case seen and discussed with Dr. Tomas <Crystal Tomas Last Filed: 03/20/18 23:45> Objective - Vital Signs/Intake and Output Vital Signs (last 24 hours): Temp Pulse Resp BP Pulse Ox 98.2 F 66 22 133/77 97 03/20/18 22:00 03/20/18 22:00 03/20/18 22:00 03/20/18 22:00 03/20/18 22:00 Intake and Output: 03/20/18 03/21/18 18:59 06:59 Intake Total 720 960 Output Total 4 Balance 720 956 - Medications Medications: Current Medications Ascorbic Acid (Vitamin C 500 Mg Tab) 500 mg PO DAILY [facility] Last Admin: 03/20/18 09:23 Dose: 500 mg Aspirin (Ecotrin) 81 mg PO DAILY [facility] Last Admin: 03/20/18 09:23 Dose: 81 mg Atorvastatin Calcium (Lipitor) 10 mg PO DIN [facility] Last Admin: 03/20/18 17:39 Dose: 10 mg Cholecalciferol (Vitamin D) 1,000 intlu PO DAILY [facility] Last Admin: 03/20/18 09:22 Dose: 1,000 intlu Cyanocobalamin (Vitamin B12 1000 Mcg Tab) 1,000 mcg PO BID [facility] Last Admin: 03/20/18 17:39 Dose: 1,000 mcg Heparin Sodium (Porcine) (Heparin) 5,000 units SC Q8 [facility] PRN Reason: Protocol Last Admin: 03/20/18 21:33 Dose: 5,000 units Insulin Human Regular (Humulin R Med) 0 units SC ACHS [facility] PRN Reason: Protocol Last Admin: 03/20/18 16:49 Dose: 3 units Isosorbide Dinitrate (Isordil) 60 mg PO DAILY [facility] Last Admin: 03/20/18 09:22 Dose: 60 mg Metoprolol Tartrate (Lopressor) 100 mg PO BRKDIN [facility] Last Admin: 03/20/18 17:38 Dose: 100 mg Multivitamins (Thera Tab) 1 tab PO DAILY [facility] Last Admin: 03/20/18 09:22 Dose: 1 tab Magnesium Glycinate [Mag Glycinate] 500 Mg 500 mg PO DAILY [facility] Last Admin: 03/20/18 10:00 Dose: Not Given Ondansetron HCl (Zofran Inj) 4 mg IVP Q6H PRN PRN Reason: Nausea/Vomiting Pantoprazole Sodium (Protonix Ec Tab) 40 mg PO ACB [facility] Primidone (Mysoline) 50 mg PO HS [facility] Last Admin: 03/20/18 21:33 Dose: 50 mg - Labs Labs: 03/20/18 06:30 03/20/18 06:30 Attending/Attestation - Attestation I have personally seen and examined this patient.: Yes I have fully participated in the care of the patient.: Yes I have reviewed all pertinent clinical information, including history, physical exam and plan: Yes Notes (Text): This is an addendum to GI progress report dictated by the Traffic Circuit Engineer.The patient was seen and examined earlier. Medical records, lab studies, imagings were reviewed. Last 24 hours events reviewed. Agreed with the above treatment plan as outlined in Traffic Circuit Engineer 's notes the with the addition of the following 03/20/18 23:45
--- NOTE | 2018-03-20 11:24 | CP.PCM.PN ---
Subjective - Date & Time of Evaluation Date of Evaluation: 03/20/18 Time of Evaluation: 11:20 - Subjective Subjective: Podiatry Progress Note- Dr. Cortés 73 y.o female with PMHx of CAD s/p CABG, cardiomyopathy, CHF s/p pacemaker placement, DM type 2, CKD stage 4, AAA s/p repair, coloectomy seen and evaluated at bedside for s/p 2nd left amputation (DOS: 02/25/18) by Dr. Cortés and left hallux ulceration-stable. Patient is laying comfortably in bed, in NAD , and AA0x3. seen at bedside during visitation. Patient denies acute overnight events. Reports no pain to the LE. Reports pain to the abdominal improved. Feels much better today. No new pedal complaints. Denies nausea, fever , shortness of breath, chest pain, or chills. Objective - Vital Signs/Intake and Output Vital Signs (last 24 hours): Temp Pulse Resp BP Pulse Ox 97.8 F 62 20 150/70 97 03/20/18 07:54 03/20/18 09:24 03/20/18 07:54 03/20/18 09:24 03/20/18 07:54 Intake and Output: 03/20/18 03/20/18 06:59 18:59 Intake Total 900 Balance 900 - Medications Medications: Current Medications Ascorbic Acid (Vitamin C 500 Mg Tab) 500 mg PO DAILY [facility] Last Admin: 03/20/18 09:23 Dose: 500 mg Aspirin (Ecotrin) 81 mg PO DAILY [facility] Last Admin: 03/20/18 09:23 Dose: 81 mg Atorvastatin Calcium (Lipitor) 10 mg PO DIN [facility] Last Admin: 03/19/18 17:18 Dose: 10 mg Cholecalciferol (Vitamin D) 1,000 intlu PO DAILY [facility] Last Admin: 03/20/18 09:22 Dose: 1,000 intlu Cyanocobalamin (Vitamin B12 1000 Mcg Tab) 1,000 mcg PO BID [facility] Last Admin: 03/20/18 09:23 Dose: 1,000 mcg Heparin Sodium (Porcine) (Heparin) 5,000 units SC Q8 [facility] PRN Reason: Protocol Last Admin: 03/20/18 05:22 Dose: 5,000 units Insulin Human Regular (Humulin R Med) 0 units SC ACHS [facility] PRN Reason: Protocol Last Admin: 03/20/18 08:00 Dose: Not Given Isosorbide Dinitrate (Isordil) 60 mg PO DAILY [facility] Last Admin: 03/20/18 09:22 Dose: 60 mg Metoprolol Tartrate (Lopressor) 100 mg PO BRKDIN [facility] Last Admin: 03/20/18 09:24 Dose: 100 mg Multivitamins (Thera Tab) 1 tab PO DAILY [facility] Last Admin: 03/20/18 09:22 Dose: 1 tab Magnesium Glycinate [Mag Glycinate] 500 Mg 500 mg PO DAILY [facility] Last Admin: 03/19/18 09:40 Dose: Not Given Ondansetron HCl (Zofran Inj) 4 mg IVP Q6H PRN PRN Reason: Nausea/Vomiting Pantoprazole Sodium (Protonix Inj) 40 mg IVP DAILY [facility] Last Admin: 03/20/18 09:24 Dose: 40 mg Primidone (Mysoline) 50 mg PO HS [facility] Last Admin: 03/19/18 22:04 Dose: 50 mg - Labs Labs: 03/20/18 06:30 03/20/18 06:30 - Constitutional Appears: Well, Non-toxic, No Acute Distress - Extremities Exam Extremities Exam: absent: Calf Tenderness Additional comments: VASC: DP/PT pulses palpable 1/4. Temperature gradient warm to cool. CFT < 3 sec x 3 digits. No edema noted to the LE. Venous stasis changes noted to the anterior leg. DERM: Dressing c/d/i without strikethrough NEURO: Protective sensation grossly diminished ORTHO: No tenderness to palpation of surgical site. Hallux and 2nd digit amputations noted. - Neurological Exam Neurological Exam: Alert, Awake, Oriented x3 - Psychiatric Exam Psychiatric exam: Normal Affect, Normal Mood Assessment and Plan - Assessment and Plan (Free Text) Assessment: 73 y.o female with PMHx of CAD s/p CABG, cardiomyopathy, CHF s/p pacemaker placement, DM type 2, CKD stage 4, AAA s/p repair, coloectomy s/p 2nd left amputation secondary to 2nd digit OM (DOS: 02/25/18) by Dr. Cortés and left hallux ulceration secondary to pressure and DM- stable, no infection Plan: Patient examined and evaluated Discussed plan in detail with attending Dr. Cortés Labs, vitals, chart reviewed Dressing is c/d/i without strikethrough. Keep dressing on intact. Do not get wet Dressing to be changed every 1-2 days with betadine to the left surgical site and dsd and right ulceration with hydrogel and optifoam Patient to ambulate with surgical shoe Patient is stable per podiatry Upon, discharge patient to follow up with Dr. Cortés in office within 1 week
--- NOTE | 2018-03-20 12:12 | PN ---
DATE: 03/20/2018 SUBJECTIVE: PHYSICAL EXAMINATION: VITAL SIGNS: Blood pressure is 150/70, respiratory rate of 20 heart rate of 57. HEENT: Examination of HEENT is unremarkable. NECK: Supple. LUNGS: Have decreased breath sounds. HEART: Normal S1, S2. ABDOMEN: Soft. LABORATORY EXAMINATION: Reveals a white count of 14,000, hemoglobin of 12, platelet of 185. Chemistries are noted. Urinalysis is noted. Microbiology reveals the blood cultures are negative. ASSESSMENT AND PLAN: A 73-year-old female, admitted with #1 is pancreatitis both clinically with epigastric pain and elevated lipase three times upper above normal. She is by definition has pancreatitis secondary to the patient was on tetracycline, most likely the cause in a patient who has end-stage chronic obstructive lung disease, diabetes, congestive heart failure, cardiomyopathy, peripheral artery disease, hypertension, ischemic colitis, renal insufficiency, history of Clostridium bacteremia. The patient states that she was on amoxicillin and doxycycline. With the doxycycline may give pancreatitis. At this time with negative blood cultures, negative urine cultures, we will discontinue Zosyn. No antibiotics indicated at this time. José Luis Trevino MD
[2018-03-20 22:18] VITALS: TEMP 98.2
[2018-03-21] MEDS: Pantoprazole 40 mg EC Tab PO SCH ×2 (06:02→10:18)
[2018-03-21 07:18] LABS: BASO # 0.02 K/mm3 (0.0-2.0); BASO % 0.2 % (0.0-3.0); EOS # 0.3 (0.0-0.7); EOS % 2.2 % (1.5-5.0); GRAN # 9.2 (1.4-6.5); GRAN % 76.7 % (50.0-68.0); LYMPH # 1.8 (1.2-3.4); LYMPH % 15.3 % (22.0-35.0); MEAN CELL VOLUME 93.3 fl (80.0-105.0); MEAN CORPUSCULAR HEMOGLOBIN 30.8 pg (25.0-35.0); MEAN CORPUSCULAR HGB CONC 33.1 g/dl (31.0-37.0); MEAN PLATELET VOLUME 10.7 fl (7.0-11.0); MONO # 0.7 (0.1-0.6); MONO % 5.6 % (1.0-6.0); RBC 3.89 10^6/uL (3.5-6.1); RED CELL DISTRIBUTION WIDTH 13.1 % (11.5-14.5)
[2018-03-21 08:25] LABS: ALB/GLOB RATIO 0.9 (1.1-1.8); ALBUMIN 2.8 g/dL (3.0-4.8); CALCIUM 8.8 mg/dL (8.4-10.5)
[2018-03-21 08:34] VITALS: BP 130/54; PULSE 60; RESP 20; O2SAT 100
[2018-03-21] MEDS: Insulin Reg-MEDIUM-Coverage SC SCH ×2 (10:17→11:54)
[2018-03-21] MEDS: Cholecalciferol 1,000 INTLU TAB PO SCH (10:18)
[2018-03-21] MEDS: Multivitamin Therapeutic Tab PO SCH (10:18)
[2018-03-21] MEDS: MAGNESIUM GLYCINATE PO SCH (10:18)
--- NOTE | 2018-03-21 11:42 | CP.PCM.DIS ---
<Vinod Hester - Last Filed: 03/21/18 13:09> Provider - Provider Date of Admission: 03/17/18 13:12 Attending physician: Doris Kelley MD Primary care physician: Yariel Flannery MD Consults: GI: Genoveva Podiatry: Cortés ID: Kamila Time Spent in preparation of Discharge (in minutes): 45 Hospital Course - Lab Results Lab Results: Micro Results 03/18/18 20:33 Blood-Venous Blood Culture - Preliminary NO GROWTH AFTER 48 HOURS 03/18/18 20:33 Blood-Venous Blood Culture - Preliminary NO GROWTH AFTER 48 HOURS 03/17/18 15:53 Urine Urine Culture - Final No Growth (<1,000 CFU/ML) Most Recent Lab Values WBC 12.0 10^3/ul (4.5-11.0) H 03/21/18 06:45 RBC 3.89 10^6/uL (3.5-6.1) 03/21/18 06:45 Hgb 12.0 g/dL (12.0-16.0) 03/21/18 06:45 Hct 36.3 % (36.0-48.0) 03/21/18 06:45 MCV 93.3 fl (80.0-105.0) 03/21/18 06:45 MCH 30.8 pg (25.0-35.0) 03/21/18 06:45 MCHC 33.1 g/dl (31.0-37.0) 03/21/18 06:45 RDW 13.1 % (11.5-14.5) 03/21/18 06:45 Plt Count 182 10^3/uL (120.0-450.0) 03/21/18 06:45 MPV 10.7 fl (7.0-11.0) 03/21/18 06:45 Gran % 76.7 % (50.0-68.0) H 03/21/18 06:45 Lymph % (Auto) 15.3 % (22.0-35.0) L 03/21/18 06:45 [place] % (Auto) 5.6 % (1.0-6.0) 03/21/18 06:45 Eos % (Auto) 2.2 % (1.5-5.0) 03/21/18 06:45 Baso % (Auto) 0.2 % (0.0-3.0) 03/21/18 06:45 Gran # 9.20 (1.4-6.5) H 03/21/18 06:45 Lymph # (Auto) 1.8 (1.2-3.4) 03/21/18 06:45 [place] # (Auto) 0.7 (0.1-0.6) H 03/21/18 06:45 Eos # (Auto) 0.3 (0.0-0.7) 03/21/18 06:45 Baso # (Auto) 0.02 K/mm3 (0.0-2.0) 03/21/18 06:45 Sodium 139 mmol/L (132-148) 03/21/18 06:45 Potassium 4.9 mmol/L (3.6-5.0) 03/21/18 06:45 Chloride 103 mmol/L (98-107) 03/21/18 06:45 Carbon Dioxide 23 mmol/L (21-33) 03/21/18 06:45 Anion Gap 18 (10-20) 03/21/18 06:45 BUN 55 mg/dL (7-21) H 03/21/18 06:45 Creatinine 1.6 mg/dl (0.7-1.2) H 03/21/18 06:45 Est GFR ( Amer) 38 03/21/18 06:45 Est GFR (Non-Af Amer) 32 03/21/18 06:45 POC Glucose (mg/dL) 282 mg/dL (65-110) H 03/21/18 11:04 Random Glucose 146 mg/dL (70-110) H 03/21/18 06:45 Calcium 8.8 mg/dL (8.4-10.5) 03/21/18 06:45 Magnesium 1.8 mg/dL (1.7-2.2) 03/17/18 12:00 Total Bilirubin 0.6 mg/dL (0.2-1.3) 03/21/18 06:45 AST 25 U/L (14-36) 03/21/18 06:45 ALT 26 U/L (7-56) 03/21/18 06:45 Alkaline Phosphatase 201 U/L (38-126) H 03/21/18 06:45 Total Protein 6.0 g/dL (5.8-8.3) 03/21/18 06:45 Albumin 2.8 g/dL (3.0-4.8) L 03/21/18 06:45 Globulin 3.1 gm/dL 03/21/18 06:45 Albumin/Globulin Ratio 0.9 (1.1-1.8) L 03/21/18 06:45 Triglycerides 101 mg/dL (35-160) 03/17/18 12:00 Cholesterol 100 mg/dL (130-200) L 03/17/18 12:00 LDL Cholesterol Direct 43 mg/dL (0-129) 03/17/18 12:00 HDL Cholesterol 35 mg/dL (29-60) 03/17/18 12:00 Lipase 1030 U/L (23-300) H 03/20/18 06:30 Urine Color Yellow (YELLOW) 03/17/18 15:53 Urine Appearance Slight-cloudy (CLEAR) 03/17/18 15:53 Urine pH 6.0 (4.7-8.0) 03/17/18 15:53 Ur Specific [place] 1.020 (1.005-1.035) 03/17/18 15:53 Urine Protein 100 mg/dL (<30 mg/dL) H 03/17/18 15:53 Urine Glucose (UA) Negative mg/dL (NEGATIVE) 03/17/18 15:53 Urine Ketones Negative mg/dL (NEGATIVE) 03/17/18 15:53 Urine Blood Trace-intact (NEGATIVE) H 03/17/18 15:53 Urine Nitrate Negative (NEGATIVE) 03/17/18 15:53 Urine Bilirubin Negative (NEGATIVE) 03/17/18 15:53 Urine Urobilinogen 0.2 E.U./dL (<1 E.U./dL) 03/17/18 15:53 Ur Leukocyte Esterase Trace Collins/uL (NEGATIVE) H 03/17/18 15:53 Urine RBC 1 - 3 /hpf (0-2) 03/17/18 15:53 Urine WBC 1 - 3 /hpf (0-6) 03/17/18 15:53 Ur Epithelial Cells 1 - 3 /hpf (0-5) 03/17/18 15:53 - Hospital Course Hospital Course: 71 F, with PMHx CAD s/p CABG, cardiomyopathy/CHF s/p pacemaker placement, DM type 2 (IDDM), CKD stage 4, AAA s/p repair, coloectomy due to surgical complication, came to the ED for abdominal pain. Pt started to have epigastric abdominal comfort 1 week ago and progressively getting worse to 8/10 today. (+) poor appetite. Denies watery bowel movement, N/V, Pt had L 2nd toe amputation on 02/[address] Cortés and discharged with (and currently on) PO Doxycycline and augmentin for a total of 6-8 week course. In the ED: VS stable. WBC 15. Cre 2.3 at baseline. LFT normal. Lipase 2873. triglyceride 101. CT A/P w/o contrast showed unremarkable pancreas. Patient was admitted for acute pancreatitis likely secondary to antibiotic use. She was started on IV fluids and given pain medications as needed. She was ordered Zofran PRN and started on CLD. Her antibiotics were changed. GI, ID and Podiatry were all consulted to assist on the case. Over the next 3 days, patient received conservative management as described above and clinically improved. She was tolerating low residue diet, having normal BM, and not requiring pain medications. On 03/21 she was deemed medically stable for discharge by Dr. Kelley. Patient was instructed to adhere to low residue diet and follow with GI as outpatient. She was also instructed to follow up with PMD. (This is a summary of the hospital course. Please refer to EMR for more details. ) Discharge Exam - Head Exam Head Exam: ATRAUMATIC, NORMAL INSPECTION, NORMOCEPHALIC - Eye Exam Eye Exam: EOMI, Normal appearance Pupil Exam: PERRL - ENT Exam ENT Exam: Mucous Membranes Moist - Respiratory Exam Respiratory Exam: Clear to PA & Lateral, NORMAL BREATHING PATTERN - Cardiovascular Exam Cardiovascular Exam: REGULAR RHYTHM, +S1, +S2 - GI/Abdominal Exam GI & Abdominal Exam: Normal Bowel Sounds, Soft. absent: Distended, Firm, Mass, Rebound, Tenderness - Extremities Exam Extremities exam: normal capillary refill, pedal pulses present - Back Exam Back exam: absent: CVA tenderness (L), CVA tenderness (R) - Neurological Exam Neurological exam: Alert, CN II-XII Intact, Oriented x3 - Psychiatric Exam Psychiatric exam: Normal Affect, Normal Mood - Skin Skin Exam: Dry, Intact, Normal Color, Warm Discharge Plan - Follow Up Plan Condition: GOOD Disposition: HOME/ ROUTINE Instructions: Low Cholesterol, Saturated Fat, and Trans Fat Diet , Low Fiber Diet, Acute Abdomen (Belly Pain), Adult (DC), Pancreatitis (DC) Additional Instructions: Resume all home medications as previously prescribed Follow up with PMD and GI within 1-2 weeks Follow a low residue diet until follow up Please return to ED if symptoms persist or condition worsens Referrals: Yariel Flannery MD [Primary Care Provider] - Crystal Tomas MD [Medical Doctor] - <Doris Kelley - Last Filed: 03/21/18 13:17> Provider - Provider Date of Admission: 03/17/18 13:12 Attending physician: Doris Kelley MD Primary care physician: Yariel Flannery MD Hospital Course - Lab Results Lab Results: Micro Results 03/18/18 20:33 Blood-Venous Blood Culture - Preliminary NO GROWTH AFTER 48 HOURS 03/18/18 20:33 Blood-Venous Blood Culture - Preliminary NO GROWTH AFTER 48 HOURS 03/17/18 15:53 Urine Urine Culture - Final No Growth (<1,000 CFU/ML) Most Recent Lab Values WBC 12.0 10^3/ul (4.5-11.0) H 03/21/18 06:45 RBC 3.89 10^6/uL (3.5-6.1) 03/21/18 06:45 Hgb 12.0 g/dL (12.0-16.0) 03/21/18 06:45 Hct 36.3 % (36.0-48.0) 03/21/18 06:45 MCV 93.3 fl (80.0-105.0) 03/21/18 06:45 MCH 30.8 pg (25.0-35.0) 03/21/18 06:45 MCHC 33.1 g/dl (31.0-37.0) 03/21/18 06:45 RDW 13.1 % (11.5-14.5) 03/21/18 06:45 Plt Count 182 10^3/uL (120.0-450.0) 03/21/18 06:45 MPV 10.7 fl (7.0-11.0) 03/21/18 06:45 Gran % 76.7 % (50.0-68.0) H 03/21/18 06:45 Lymph % (Auto) 15.3 % (22.0-35.0) L 03/21/18 06:45 [place] % (Auto) 5.6 % (1.0-6.0) 03/21/18 06:45 Eos % (Auto) 2.2 % (1.5-5.0) 03/21/18 06:45 Baso % (Auto) 0.2 % (0.0-3.0) 03/21/18 06:45 Gran # 9.20 (1.4-6.5) H 03/21/18 06:45 Lymph # (Auto) 1.8 (1.2-3.4) 03/21/18 06:45 [place] # (Auto) 0.7 (0.1-0.6) H 03/21/18 06:45 Eos # (Auto) 0.3 (0.0-0.7) 03/21/18 06:45 Baso # (Auto) 0.02 K/mm3 (0.0-2.0) 03/21/18 06:45 Sodium 139 mmol/L (132-148) 03/21/18 06:45 Potassium 4.9 mmol/L (3.6-5.0) 03/21/18 06:45 Chloride 103 mmol/L (98-107) 03/21/18 06:45 Carbon Dioxide 23 mmol/L (21-33) 03/21/18 06:45 Anion Gap 18 (10-20) 03/21/18 06:45 BUN 55 mg/dL (7-21) H 03/21/18 06:45 Creatinine 1.6 mg/dl (0.7-1.2) H 03/21/18 06:45 Est GFR ( Amer) 38 03/21/18 06:45 Est GFR (Non-Af Amer) 32 03/21/18 06:45 POC Glucose (mg/dL) 282 mg/dL (65-110) H 03/21/18 11:04 Random Glucose 146 mg/dL (70-110) H 03/21/18 06:45 Calcium 8.8 mg/dL (8.4-10.5) 03/21/18 06:45 Magnesium 1.8 mg/dL (1.7-2.2) 03/17/18 12:00 Total Bilirubin 0.6 mg/dL (0.2-1.3) 03/21/18 06:45 AST 25 U/L (14-36) 03/21/18 06:45 ALT 26 U/L (7-56) 03/21/18 06:45 Alkaline Phosphatase 201 U/L (38-126) H 03/21/18 06:45 Total Protein 6.0 g/dL (5.8-8.3) 03/21/18 06:45 Albumin 2.8 g/dL (3.0-4.8) L 03/21/18 06:45 Globulin 3.1 gm/dL 03/21/18 06:45 Albumin/Globulin Ratio 0.9 (1.1-1.8) L 03/21/18 06:45 Triglycerides 101 mg/dL (35-160) 03/17/18 12:00 Cholesterol 100 mg/dL (130-200) L 03/17/18 12:00 LDL Cholesterol Direct 43 mg/dL (0-129) 03/17/18 12:00 HDL Cholesterol 35 mg/dL (29-60) 03/17/18 12:00 Lipase 1030 U/L (23-300) H 03/20/18 06:30 Urine Color Yellow (YELLOW) 03/17/18 15:53 Urine Appearance Slight-cloudy (CLEAR) 03/17/18 15:53 Urine pH 6.0 (4.7-8.0) 03/17/18 15:53 Ur Specific [place] 1.020 (1.005-1.035) 03/17/18 15:53 Urine Protein 100 mg/dL (<30 mg/dL) H 03/17/18 15:53 Urine Glucose (UA) Negative mg/dL (NEGATIVE) 03/17/18 15:53 Urine Ketones Negative mg/dL (NEGATIVE) 03/17/18 15:53 Urine Blood Trace-intact (NEGATIVE) H 03/17/18 15:53 Urine Nitrate Negative (NEGATIVE) 03/17/18 15:53 Urine Bilirubin Negative (NEGATIVE) 03/17/18 15:53 Urine Urobilinogen 0.2 E.U./dL (<1 E.U./dL) 03/17/18 15:53 Ur Leukocyte Esterase Trace [place]/uL (NEGATIVE) H 03/17/18 15:53 Urine RBC 1 - 3 /hpf (0-2) 03/17/18 15:53 Urine WBC 1 - 3 /hpf (0-6) 03/17/18 15:53 Ur Epithelial Cells 1 - 3 /hpf (0-5) 03/17/18 15:53 Attending/Attestation - Attestation I have personally seen and examined this patient.: Yes I have fully participated in the care of the patient.: Yes I have reviewed all pertinent clinical information, including history, physical exam and plan: Yes Notes (Text): I have seen and examined the patient at the bedside. Agree with the above note with the following additions/ exceptions: Briefly this is 71 year old female with history of CAD s/p CABG, cardiomyopathy, CHF due to systolic dysfunction ( EF~33%), CKD stage 4, DM-2, AAA s/p repair, coloectomy due to surgical complication, came to the ED for abdominal pain, elevated lipase most likely due to pancreatits. CT was unremarkable. Patient is tolerating regular diet. Patient had cholecystectomy in the past. Denies use of alcohol. She was on augmentin and doxy for diabetic foot infection s/p toe resection. Will hold tetracycline as there is some evidence of tetracycline causing drug induced pancreatitis. ID consult appreciated. No need for antibiotics as per podiatry and ID. Etiology of pancreatitis is unclear. US negative for CBD stone. Patient need EUS as an outpatient. Upon discharge patient will follow up with Dr Walters.
--- NOTE | 2018-03-21 13:06 | CP.PCM.PN ---
Subjective - Date & Time of Evaluation Date of Evaluation: 03/21/18 Time of Evaluation: 13:03 - Subjective Subjective: Podiatry Progress Note- Dr. Cortés 73 y.o female with PMHx of CAD s/p CABG, cardiomyopathy, CHF s/p pacemaker placement, DM type 2, CKD stage 4, AAA s/p repair, coloectomy seen and evaluated at bedside for s/p 2nd left amputation (DOS: 02/25/18) by Dr. Cortés and left hallux ulceration-stable. Patient is laying comfortably in bed, in NAD , and AA0x3. Patient denies acute overnight events. Reports no pain to the LE. No new pedal complaints. Denies nausea, fever, shortness of breath, chest pain, or chills. Objective - Vital Signs/Intake and Output Vital Signs (last 24 hours): Temp Pulse Resp BP Pulse Ox 98.2 F 60 20 130/54 L 100 03/21/18 08:33 03/21/18 08:40 03/21/18 08:33 03/21/18 08:40 03/21/18 08:33 Intake and Output: 03/21/18 03/21/18 06:59 18:59 Intake Total 960 Output Total 4 Balance 956 - Medications Medications: Current Medications Ascorbic Acid (Vitamin C 500 Mg Tab) 500 mg PO DAILY [facility] Last Admin: 03/21/18 10:18 Dose: 500 mg Aspirin (Ecotrin) 81 mg PO DAILY [facility] Last Admin: 03/21/18 10:18 Dose: 81 mg Atorvastatin Calcium (Lipitor) 10 mg PO DIN [facility] Last Admin: 03/20/18 17:39 Dose: 10 mg Cholecalciferol (Vitamin D) 1,000 intlu PO DAILY [facility] Last Admin: 03/21/18 10:18 Dose: 1,000 intlu Cyanocobalamin (Vitamin B12 1000 Mcg Tab) 1,000 mcg PO BID [facility] Last Admin: 03/21/18 10:18 Dose: 1,000 mcg Famotidine (Pepcid) 20 mg PO 1000,2200 [facility] Heparin Sodium (Porcine) (Heparin) 5,000 units SC Q8 [facility] PRN Reason: Protocol Last Admin: 03/21/18 06:02 Dose: 5,000 units Insulin Human Regular (Humulin R Med) 0 units SC ACHS [facility] PRN Reason: Protocol Last Admin: 03/21/18 11:54 Dose: 5 units Isosorbide Dinitrate (Isordil) 60 mg PO DAILY [facility] Last Admin: 03/21/18 10:18 Dose: 60 mg Metoprolol Tartrate (Lopressor) 100 mg PO BRKDIN [facility] Last Admin: 03/21/18 08:40 Dose: 100 mg Multivitamins (Thera Tab) 1 tab PO DAILY [facility] Last Admin: 03/21/18 10:18 Dose: 1 tab Magnesium Glycinate [Mag Glycinate] 500 Mg 500 mg PO DAILY [facility] Last Admin: 03/21/18 10:18 Dose: Not Given Ondansetron HCl (Zofran Inj) 4 mg IVP Q6H PRN PRN Reason: Nausea/Vomiting Primidone (Mysoline) 50 mg PO HS [facility] Last Admin: 03/20/18 21:33 Dose: 50 mg - Labs Labs: 03/21/18 06:45 03/21/18 06:45 - Constitutional Appears: Well, Non-toxic, No Acute Distress - Extremities Exam Extremities Exam: absent: Calf Tenderness Additional comments: VASC: DP/PT pulses palpable 1/4. Temperature gradient warm to cool. CFT < 3 sec x 3 digits. No edema noted to the LE. Venous stasis changes noted to the anterior leg. DERM: completely healed 2nd digit amputation site, tiny circular ulceration noted to submet 1 callus to the left foot measures approximately .5 x .5 x .1 cm with mainly granular base, intact hyperkeratotic rim to the periwound, no erythema, no streaking, no probe to bone, no malodor, no purulence, no maceration, no tunneling noted. There are no clinical signs of infection to the lower extremity. NEURO: Protective sensation grossly diminished ORTHO: No tenderness to palpation of surgical site. Hallux and 2nd digit amputations noted. - Neurological Exam Neurological Exam: Alert, Awake, Oriented x3 - Psychiatric Exam Psychiatric exam: Normal Affect, Normal Mood Assessment and Plan - Assessment and Plan (Free Text) Assessment: 73 y.o female with PMHx of CAD s/p CABG, cardiomyopathy, CHF s/p pacemaker placement, DM type 2, CKD stage 4, AAA s/p repair, coloectomy s/p 2nd left amputation secondary to 2nd digit OM (DOS: 02/25/18) by Dr. Cortés with left hallux ulceration secondary to pressure and DM- stable, no infection Plan: Patient examined and evaluated Discussed plan in detail with attending Dr. Cortés Labs, vitals, chart reviewed No dressing to the 2nd digit amputation site- completely healed left ulceration with hydrogel and optifoam Patient to ambulate with surgical shoe Patient is stable per podiatry Upon, discharge patient to follow up with Dr. Cortés in office within 1 week Dressing to be changed every 1-2 days to left ulceration with hydrogel and optifoam
--- NOTE | 2018-03-21 16:49 | CP.PCM.PN ---
Subjective - Date & Time of Evaluation Date of Evaluation: 03/21/18 Time of Evaluation: 10:20 - Subjective Subjective: Seen and examined at the bedside earlier today, chart reviewed. at bedside. Patient with no new complaints. Denies nausea, vomiting, or abdominal pain. No reports of diarrhea. Tolerating oral intake. No complaints of overt GIB. Objective - Vital Signs/Intake and Output Vital Signs (last 24 hours): Temp Pulse Resp BP Pulse Ox 98.2 F 60 20 130/54 L 100 03/21/18 08:33 03/21/18 08:40 03/21/18 08:33 03/21/18 08:40 03/21/18 08:33 Intake and Output: 03/21/18 03/21/18 06:59 18:59 Intake Total 960 840 Output Total 4 Balance 956 840 - Labs Labs: 03/21/18 06:45 03/21/18 06:45 - Constitutional Appears: No Acute Distress - Head Exam Head Exam: NORMOCEPHALIC - Eye Exam Eye Exam: Normal appearance. absent: Scleral icterus - ENT Exam ENT Exam: Mucous Membranes Moist - Respiratory Exam Respiratory Exam: NORMAL BREATHING PATTERN. absent: Respiratory Distress - Cardiovascular Exam Cardiovascular Exam: +S1, +S2 - GI/Abdominal Exam GI & Abdominal Exam: Soft, Normal Bowel Sounds. absent: Guarding, Tenderness, Rebound - Extremities Exam Extremities Exam: absent: Calf Tenderness, Pedal Edema - Neurological Exam Neurological Exam: Alert, Awake, Oriented x3 - Skin Skin Exam: absent: Dry, Warm Assessment and Plan - Assessment and Plan (Free Text) Assessment: Assessment: Abdominal pain, pancreatitis versus enteritis versus ischemic bowel Diarrhea likely secondary to antibiotics Coronary artery disease status post CABG Pacemaker Chronic kidney disease History of AAA status post repair Colectomy secondary to surgical complication Plan: - CT abd/pel without contrast showed no acute findings - patient can not have MRI due to pacemaker - US of abd showed no acute findings - lipase down trending - continue reglan - on antibiotic, recommend to discharge on PO antibiotics for 7-10 days - diet advance to low residual, low fat diet - consider EUS outpatient Seen and discussed with Dr. Tomas
--- NOTE | 2018-03-21 22:03 | PN ---
DATE: 03/21/2018 SUBJECTIVE: The patient was seen earlier this morning in room 571, bed 2. The patient's was present in the room and she is doing much better. No nausea. No vomiting. No abdominal pain. No diarrhea or constipation. PHYSICAL EXAMINATION: VITAL SIGNS: Temperature is 98, blood pressure is 130/50, respiratory rate of 20, heart rate of 60. HEENT: Examination of HEENT is unremarkable. NECK: Supple. LUNGS: Have decreased breath sounds. HEART: Normal S1 and S2. ABDOMEN: Soft. There is no rebound or guarding. LABORATORY DATA: Laboratory examination reveals a white count of 12,000, hemoglobin of 12, platelets of 182. Chemistries reveals a BUN of 65, creatinine of 1.6. Urinalysis is noted. Microbiology is negative. ASSESSMENT AND PLAN: This is a 73-year-old female, admitted with pancreatitis. She both meets clinical criteria and elevated lipase three times the upper limit that was normal. Pancreatitis secondary to the patient was on doxycycline, most likely the cause in a patient with end-stage obstructive lung disease, diabetes, congestive heart failure, cardiomyopathy and peripheral artery disease, hypertension, ischemic colitis, renal insufficiency, history of Clostridium bacteremia. Currently, now off of antibiotics. The patient will discharge today. No further antibiotics. Case is discussed with the patient and the patient's . José Luis Trevino MD
== END 2018-03-21 13:28 | disposition home or self-care (01) | DRG 439 ==
LOC: ED 11:01 → ERH 13:12 → 5RSO 14:12
PROVIDERS: ADMIT Internal Medicine; ATTEND Hospitalist
DX: K85.30 Drug induced acute pancreatitis without necrosis or infection (principal); I13.0 Hypertensive heart and chronic kidney disease with heart failure and stage 1 through stage 4 chronic kidney disease, or unspecified chronic kidney disease; N18.4 Chronic kidney disease, stage 4 (severe); I42.9 Cardiomyopathy, unspecified; I50.20 Unspecified systolic (congestive) heart failure; E11.22 Type 2 diabetes mellitus with diabetic chronic kidney disease; E11.40 Type 2 diabetes mellitus with diabetic neuropathy, unspecified; E11.51 Type 2 diabetes mellitus with diabetic peripheral angiopathy without gangrene; E11.628 Type 2 diabetes mellitus with other skin complications; I25.10 Atherosclerotic heart disease of native coronary artery without angina pectoris; I34.1 Nonrheumatic mitral (valve) prolapse; J44.9 Chronic obstructive pulmonary disease, unspecified; L08.9 Local infection of the skin and subcutaneous tissue, unspecified; Z79.4 Long term (current) use of insulin; Z79.82 Long term (current) use of aspirin; Z80.3 Family history of malignant neoplasm of breast; Z80.6 Family history of leukemia; Z80.8 Family history of malignant neoplasm of other organs or systems; Z82.49 Family history of ischemic heart disease and other diseases of the circulatory system; Z86.79 Personal history of other diseases of the circulatory system; Z87.891 Personal history of nicotine dependence; Z89.422 Acquired absence of other left toe(s); Z90.49 Acquired absence of other specified parts of digestive tract; Z91.013 Allergy to seafood; Z95.0 Presence of cardiac pacemaker; Z95.1 Presence of aortocoronary bypass graft; Z95.5 Presence of coronary angioplasty implant and graft

== ENCOUNTER 2018-04-25 17:05 | Inpatient (IN) | payer MEDICARE ==
[2018-04-25 17:06] VITALS: PULSE 92
[2018-04-25 17:13] VITALS: BMI 27.6
--- NOTE | 2018-04-25 18:05 | ED PDOC ---
Arrival/HPI - General Chief Complaint: Lower Extremity Problem/Injury Time Seen by Provider: 04/25/18 17:21 Historian: Patient - History of Present Illness Narrative History of Present Illness (Text): 04/25/18 18:00 73 year old female, whose past medical history includes CAD s/p CABG, cardiomyopathy, CHF, pacemaker, diabetes, AAA repair, coloectomy, CKD stage 4, who presents to the emergency department complaining of difficulty walking today. Patient has arthritis in hips and knees, usually uses a walker. Today, patient notes her knees and hips were too weak to walk up the stairs, so she had to crawl up on her knees. Patient denies any fever, chills, chest pain, shortness of breath, nausea, vomiting, diarrhea, back pain, neck pain, headache , dizziness, or any other complaints. PMD: Dr. Kennedy Time/Duration: Other (today) Symptom Onset: Sudden Symptom Course: Unchanged Activities at Onset: Light Context: Home Past Medical History - Provider Review Nursing Documentation Reviewed: Yes - Infectious Disease Hx of Infectious Diseases: None - Tetanus Immunization Tetanus Immunization: Unknown - Cardiac Hx Pacemaker: Yes - Pulmonary Hx Respiratory Disorders: No - Neurological Hx Neurological Disorder: No - HEENT Hx Cataracts: Yes (bilateral laser sx) - Renal Hx Renal Disorder: Yes - Endocrine/Metabolic Hx Diabetes Mellitus Type 2: Yes - Hematological/Oncological Hx Blood Transfusions: No Hx Blood Transfusion Reaction: No - Integumentary Other/Comment: STage 3 sacral ulcers. BLE redness w/ scattered scabs. Under breasts folds redness. Bilateral under belly Folds redness skin excoriated - Musculoskeletal/Rheumatological Hx Arthritis: Yes - Gastrointestinal Hx Gastrointestinal Disorders: Yes (umbilical hernia) Hx Ileostomy: Yes - Genitourinary/Gynecological Hx Genitourinary Disorders: No - Psychiatric Hx Psychophysiologic Disorder: No Hx Substance Use: No - Surgical History Hx Amputation: Yes (left foot 2nd digit) - Anesthesia Hx Anesthesia: Yes Hx Anesthesia Reactions: No Hx Malignant Hyperthermia: No - Suicidal Assessment Feels Threatened In Home Enviroment: No Family/Social History - Physician Review Nursing Documentation Reviewed: Yes Family/Social History: Unknown Family HX Smoking Status: Former Smoker Hx Alcohol Use: No Hx Substance Use: No Hx Substance Use Treatment: No Allergies/Home Meds Allergies/Adverse Reactions: Allergies doxycycline Allergy (Verified 04/25/18 18:00) ANAPHYLAXIS shellfish derived Allergy (Verified 02/19/17 13:57) ANAPHYLAXIS Home Medications: Home Meds Medication Instructions Recorded Confirmed Ascorbic Acid [Vitamin C 500 mg 500 mg PO DAILY 02/19/17 03/28/18 Tab] Aspirin [Ecotrin] 81 mg PO DAILY 02/19/17 03/28/18 Cholecalciferol [Vitamin D 1000 IU] 1,000 iu PO DAILY 02/19/17 03/28/18 Cyanocobalamin (Vitamin B-12) 1,000 mcg PO BID 02/19/17 03/28/18 [B-12] Insulin Human NPH [Humulin N] 6 units SC BID 02/19/17 03/28/18 Insulin Human Regular [HumuLIN R] 6 units SC ACHS 02/19/17 03/28/18 Isosorbide Dinitrate 60 mg PO DAILY 02/19/17 03/28/18 Magnesium Glycinate [Mag Glycinate] 500 mg PO DAILY 02/19/17 03/28/18 Metoprolol Tartrate [Lopressor] 100 mg PO BID 02/19/17 03/28/18 Multivitamin [Multivitamins] 1 tab PO DAILY 02/19/17 03/28/18 Pantoprazole Sodium [Protonix] 40 mg PO 0700 02/19/17 03/28/18 Primidone [Mysoline] 50 mg PO HS 02/19/17 03/28/18 metOLazone [Zaroxolyn] 2.5 mg PO DAILY 02/19/17 03/28/18 Pravastatin Sodium [Pravachol] 20 mg PO DIN 05/17/17 03/28/18 Review of Systems - Physician Review All systems were reviewed & negative as marked: Yes - Review of Systems Constitutional: Normal Eyes: Normal ENT: Normal Respiratory: Normal. absent: SOB, Cough Cardiovascular: Normal. absent: Chest Pain Gastrointestinal: Normal. absent: Abdominal Pain, Diarrhea, Nausea, Vomiting Genitourinary Female: Normal. absent: Dysuria, Frequency, Hematuria Musculoskeletal: Other (knee and hip pain). absent: Back Pain, Neck Pain Skin: Normal. absent: Rash Neurological: Normal. absent: Headache, Dizziness Endocrine: Normal Hemo/Lymphatic: Normal Psychiatric: Normal Physical Exam Vital Signs Reviewed: Yes Vital Signs Temp Pulse Resp BP Pulse Ox 04/25/18 17:12 97.9 F 83 18 125/76 100 Temperature: Afebrile Blood Pressure: Normal Pulse: Regular Respiratory Rate: Normal Appearance: Positive for: Well-Appearing, Non-Toxic, Comfortable Pain Distress: None Mental Status: Positive for: Alert and Oriented X 3 - Systems Exam Head: Present: Atraumatic, Normocephalic Pupils: Present: PERRL Extroacular Muscles: Present: EOMI Conjunctiva: Present: Normal Mouth: Present: Moist Mucous Membranes Neck: Present: Normal Range of Motion. No: Meningeal Signs, MIDLINE TENDERNESS , Paraspinal Tenderness Respiratory/Chest: Present: Clear to Auscultation, Good Air Exchange. No: Respiratory Distress, Accessory Muscle Use Cardiovascular: Present: Regular Rate and Rhythm, Normal S1, S2. No: Murmurs Abdomen: No: Tenderness, Distention, Peritoneal Signs Back: Present: Normal Inspection. No: CVA Tenderness, Midline Tenderness Upper Extremity: Present: Normal Inspection. No: Cyanosis, Edema Lower Extremity: Present: Normal ROM (Full ROM hips bilaterally), Other (Pain with movement in knees bilaterally). No: Edema, CALF TENDERNESS Neurological: Present: GCS=15, CN II-XII Intact, Speech Normal Skin: Present: Warm, Dry, Abrasion (abrasions on knees bilaterally). No: Rashes Psychiatric: Present: Alert, Oriented x 3, Normal Insight, Normal Concentration Medical Decision Making ED Course and Treatment: 04/25/18 18:08 Impression: 73 year old female presents to the emergency department complaining of difficulty walking. Differential Diagnosis included but are not limited to: Knee Abrasions Plan: -- Labs -- Xray knees bilateral -- Xray Pelvis -- Tylenol -- RN applied bacitracin to wounds -- Tetanus up to date. -- Reassess and disposition Progress Notes: 04/25/18 18:53 Patient signed out to Dr. Coker to f/u Xrays, Labs, reevaluate and disposition. - RAD Interpretation Radiology Orders: 04/25/18 18:03 KNEES BILATERAL [RAD] Stat 04/25/18 18:04 PELVIS ONE VIEW [RAD] Stat - Medication Orders Current Medication Orders: Discontinued Medications Acetaminophen (Tylenol 325mg Tab) 650 mg PO STAT STA Stop: 04/25/18 18:04 Last Admin: 04/25/18 18:42 Dose: 650 mg MAR Pain/Vitals Document 04/25/18 18:42 EQ (Rec: 04/25/18 18:43 EQ [id number] Pain Reassessment Is This A Pain ReAssessment? No Sleep Is patient sleeping during reassessment? No Presence of Pain Presence of Pain Yes Bacitracin (Bacitracin) 1 ea TOP ONCE ONE Stop: 04/25/18 18:47 - Scribe Statement The provider has reviewed the documentation as recorded by the Scribjose Lares All medical record entries made by the Scribe were at my direction and personally dictated by me. I have reviewed the chart and agree that the record accurately reflects my personal performance of the history, physical exam, medical decision making, and the department course for this patient. I have also personally directed, reviewed, and agree with the discharge instructions and disposition. Disposition/Present on Arrival - Present on Arrival Any Indicators Present on Arrival: No History of DVT/PE: No History of Uncontrolled Diabetes: No Urinary Catheter: No History of Decub. Ulcer: No History Surgical Site Infection Following: None - Disposition Have Diagnosis and Disposition been Completed?: No Diagnosis: Abrasion of knee, bilateral, Leg weakness, bilateral Disposition Time: 18:55 Condition: FAIR Discharge Instructions (ExitCare): Weakness (ED) Forms: [employer] [place] ([place])
[2018-04-25] MEDS ORDERED: Bacitracin 500 Units/gm Oint Foilpak UD TOP ONE (18:46)
[2018-04-25 18:59] LABS: ALB/GLOB RATIO 1.1 (1.1-1.8); ALBUMIN 3.4 g/dL (3.0-4.8); ALT/SGPT 16 U/L (7-56); AST/SGOT 31 U/L (14-36); BLOOD UREA NITROGEN 27 mg/dL (7-21); CALCIUM 8.6 mg/dL (8.4-10.5); GFR AFRICAN-AMERICAN 33; GFR NON-AFRICAN AMERICAN 28
[2018-04-25 19:01] LABS: BASO # 0.02 K/mm3 (0.0-2.0); BASO % 0.2 % (0.0-3.0); EOS # 0.1 (0.0-0.7); EOS % 0.7 % (1.5-5.0); GRAN # 10.02 (1.4-6.5); GRAN % 83.7 % (50.0-68.0); HEMOGLOBIN 11.6 g/dL (12.0-16.0); LYMPH # 1.3 (1.2-3.4); LYMPH % 10.6 % (22.0-35.0); MEAN CELL VOLUME 98.7 fl (80.0-105.0); MEAN CORPUSCULAR HEMOGLOBIN 31.3 pg (25.0-35.0); MEAN CORPUSCULAR HGB CONC 31.7 g/dl (31.0-37.0); MEAN PLATELET VOLUME 9.7 fl (7.0-11.0); MONO # 0.6 (0.1-0.6); MONO % 4.8 % (1.0-6.0); RBC 3.71 10^6/uL (3.5-6.1); RED CELL DISTRIBUTION WIDTH 13.7 % (11.5-14.5)
[2018-04-25] MEDS ORDERED: Oxycodone/Acetaminophen 5/325 mg Tab PO STA (19:52)
[2018-04-25 20:20] LABS: URINE BILIRUBIN NEGATIVE (NEGATIVE); URINE BLOOD TRACE-INTACT (NEGATIVE); URINE GLUCOSE (UA) NEGATIVE (NEGATIVE); URINE LEUKOCYTE ESTERASE SMALL Leu/uL (NEGATIVE); URINE PROTEIN 100 mg/dL (<30 mg/dL); URINE UROBILINOGEN 0.2 E.U./dL (<1 E.U./dL)
[2018-04-25 20:21] LABS: URINE APPEARANCE CLEAR (CLEAR); URINE COLOR STRAW (YELLOW)
[2018-04-25 20:25] LABS: URINE RBC 0 - 2 /hpf (0-2); URINE WBC 0 - 2 /hpf (0-6)
--- NOTE | 2018-04-25 22:02 | CP.PCM.HP ---
<Jeff Rico - Last Filed: 04/26/18 05:51> History of Present Illness - History of Present Illness History of Present Illness: 73 year old male with a past medical history of aaa repair, colectomy, ckd stage 4, cap s/p CABG, cardiomyopathy, CHF, pacemaker, DM, who comes in today complaining of difficulty walking that started today. The patient states she was returning home and walking up her stairs when mid-way to the top she felt her knees get weak like they would silvio under her. She reports having to climb the remainder of the stairs on her hands and feet to reach the top. The patient reports this was the instance of this occurring. She denies any chest pain, palpitations, lightheadedness, dizziness, headache, syncopal episodes, fevers, chills, or any other complaints. PMD: Dr. Walters Tailercpa: Dr. Vidales Past medical history: AA repair, colectomy, CKD stage 4, cad s/p CABG, cardiomyopathy, chf, pacemaker, DM Medications: Allergies: Doxycycline, shellfish Surgical history: Left toes removal, ileostomy,Cholecystectomy Present on Admission - Present on Admission Any Indicators Present on Admission: No Review of Systems - Constitutional Constitutional: Weakness. absent: Anorexia, Daytime Sleepiness, Headache, Night Sweats, Sleep Apnea - EENT Eyes: absent: Blurred Vision, Discharge, Loss of Peripheral Vision, Sees Flashes , Loss of Vision Ears: absent: Ear Discharge, Dizziness Nose/Mouth/Throat: absent: Nasal Congestion, Post Nasal Drip, Dental Pain, Mouth Lesions, Throat Swelling - Cardiovascular Cardiovascular: absent: Chest Pain, Claudication, Irregular Heart Rhythm, Leg Edema, Paroxysmal Nocturnal Dyspnea, Rapid Heart Rate, Syncope - Respiratory Respiratory: absent: Cough, Dyspnea, Hemoptysis, Pain on Inspiration - Gastrointestinal Gastrointestinal: absent: Belching, Bloating, Coffee Ground Emesis, Constipation , Dysphagia, Excessive Flatus, Vomiting - Musculoskeletal Musculoskeletal: Muscle Weakness. absent: Arthralgias, Loss of Height, Myalgias , Neck Pain, Numbness - Integumentary Integumentary: absent: Alopecia, Bleeding Lesions, Lesions, Skin Pain, Jaundice - Neurological Neurological: absent: Headaches, Lack of Coordination, Tremor, Vertigo, Weakness - Psychiatric Psychiatric: absent: Anxiety, Change in Appetite, Difficulty Concentrating, Paranoia, Suicidal Ideation - Endocrine Endocrine: absent: Polydipsia, Polyphagia, Polyuria - Hematologic/Lymphatic Hematologic: absent: Easy Bleeding (Difficulty ambulating), Easy Bruising Past Patient History - Infectious Disease Hx of Infectious Diseases: None - Tetanus Immunizations Tetanus Immunization: Unknown - Past Social History Smoking Status: Former Smoker - CARDIAC Hx Pacemaker: Yes - PULMONARY Hx Respiratory Disorders: No - NEUROLOGICAL Hx Neurological Disorder: No - HEENT Hx Cataracts: Yes (bilateral laser sx) - RENAL Hx Chronic Kidney Disease: Yes - ENDOCRINE/METABOLIC Hx Diabetes Mellitus Type 2: Yes - HEMATOLOGICAL/ONCOLOGICAL Hx Blood Transfusions: No Hx Blood Transfusion Reaction: No - INTEGUMENTARY Other/Comment: STage 3 sacral ulcers. BLE redness w/ scattered scabs. Under breasts folds redness. Bilateral under belly Folds redness skin excoriated - MUSCULOSKELETAL/RHEUMATOLOGICAL Hx Arthritis: Yes - GASTROINTESTINAL Hx Gastrointestinal Disorders: Yes (umbilical hernia) Hx Ileostomy: Yes - GENITOURINARY/GYNECOLOGICAL Hx Genitourinary Disorders: No - PSYCHIATRIC Hx Psychophysiologic Disorder: No Hx Substance Use: No - SURGICAL HISTORY Hx Amputation: Yes (left foot 2nd digit) - ANESTHESIA Hx Anesthesia: Yes Hx Anesthesia Reactions: No Hx Malignant Hyperthermia: No Meds Allergies/Adverse Reactions: Allergies Allergy/AdvReac Type Severity Reaction Status Date / Time doxycycline Allergy ANAPHYLAXIS Verified 04/25/18 18:00 shellfish derived Allergy ANAPHYLAXIS Verified 02/19/17 13:57 Physical Exam - Head Exam Head Exam: ATRAUMATIC, NORMAL INSPECTION, NORMOCEPHALIC - Eye Exam Eye Exam: EOMI, Normal appearance, PERRL. absent: Periorbital tenderness Pupil Exam: NORMAL ACCOMODATION, PERRL - ENT Exam ENT Exam: Mucous Membranes Moist, Normal Exam. absent: Normal Oropharynx - Neck Exam Neck exam: Positive for: Normal Inspection - Respiratory Exam Respiratory Exam: Clear to Auscultation Bilateral, NORMAL BREATHING PATTERN - Cardiovascular Exam Cardiovascular Exam: REGULAR RHYTHM, +S1, +S2 - GI/Abdominal Exam GI & Abdominal Exam: Normal Bowel Sounds, Soft - Extremities Exam Extremities exam: Positive for: normal inspection. Negative for: pedal edema, tenderness - Back Exam Back exam: NORMAL INSPECTION. absent: CVA tenderness (L), CVA tenderness (R), paraspinal tenderness - Neurological Exam Neurological exam: Alert, Oriented x3 - Psychiatric Exam Psychiatric exam: Normal Mood - Skin Skin Exam: Dry, Intact Results - Vital Signs Recent Vital Signs: Last Vital Signs Temp 97.9 F 04/25/18 17:12 Pulse 79 04/25/18 19:17 Resp 18 04/25/18 19:17 BP 121/71 04/25/18 19:17 Pulse Ox 100 04/25/18 19:17 - Labs Result Diagrams: 04/25/18 18:40 04/25/18 18:40 Labs: Laboratory Results - last 24 hr 04/25/18 20:02 Urine Color Straw Urine Appearance Clear Urine pH 6.0 Ur Specific [place] 1.015 Urine Protein 100 H Urine Glucose (UA) Negative Urine Ketones Negative Urine Blood Trace-intact H Urine Nitrate Negative Urine Bilirubin Negative Urine Urobilinogen 0.2 Ur Leukocyte Esterase Small H Urine RBC 0 - 2 Urine WBC 0 - 2 Ur Epithelial Cells None Assessment & Plan - Assessment and Plan (Free Text) Assessment: 73 year old male with a past medical history of aaa repair, colectomy, ckd stage 4, cap s/p CABG, cardiomyopathy, CHF, pacemaker and DM who is being admitted for difficulty walking. Plan: 1. Difficulty ambulating/walking -Pelvis and knee xray are negative. -Hip ct ordered. Will f/u with results. -IV Morphine for pain medication -Physical therapy consulted. Help appreciated. 2.hx of DM -Home medications held. -ISS. -Accu checks ACHS -Mod consistent carb diet. 3. hx of CHF -ASA -Metoprolol -Intake and output 4. Leukocytosis -WBC 12,000 upon admission. -Repeat CBC in A.M. -Urine culture ordered. F/u with results. 5.?UTI -Small leukocyte esterase upon admission. -Patient asymptomatic. Will repeat U/A in the A.M. PPX -Protonix -SCD's Case discussed with Dr. Catrachito Rico, PGY-1 <Jasmyn Winston - Last Filed: 04/26/18 06:02> Results - Vital Signs Recent Vital Signs: Last Vital Signs Temp 97.4 F L 04/26/18 00:58 Pulse 84 04/26/18 00:58 Resp 20 04/26/18 00:58 BP 152/87 H 04/26/18 00:58 Pulse Ox 100 04/25/18 22:35 - Labs Result Diagrams: 04/25/18 18:40 04/25/18 18:40 Labs: Laboratory Results - last 24 hr 04/25/18 04/25/18 20:02 22:49 POC Glucose (mg/dL) 94 Urine Color Straw Urine Appearance Clear Urine pH 6.0 Ur Specific [place] 1.015 Urine Protein 100 H Urine Glucose (UA) Negative Urine Ketones Negative Urine Blood Trace-intact H Urine Nitrate Negative Urine Bilirubin Negative Urine Urobilinogen 0.2 Ur Leukocyte Esterase Small H Urine RBC 0 - 2 Urine WBC 0 - 2 Ur Epithelial Cells None Attending/Attestation - Attestation I have personally seen and examined this patient.: Yes I have fully participated in the care of the patient.: Yes I have reviewed all pertinent clinical information: Yes Notes (Text): 04/26/18 06:01 Oli was seen when she was in bed # 18 in the ER . Agree with history, physical examination, assessment and plan.
--- NOTE | 2018-04-25 23:28 | ED PDOC ---
Physical Exam Vital Signs Temp Pulse Resp BP Pulse Ox 04/25/18 22:35 78 18 122/79 100 04/25/18 22:17 74 18 118/68 100 04/25/18 19:17 79 18 121/71 100 04/25/18 17:12 97.9 F 83 18 125/76 100 Medical Decision Making ED Course and Treatment: 04/25/18 19:00 Patient endorsed to me by . Urinalysis and X-ray was negative. Ordered CT to rule out hip fracture. 04/25/18 Patient admitted for gait disturbance. 04/25/18 CT Left Lower Extremity Without Intravenous Contrast, Hip: FINDINGS: Bones/joints: No acute fracture. No dislocation. Soft tissues: Unremarkable. IMPRESSION: No acute traumatic osseous injury. CT Right Lower Extremity Without Intravenous Contrast, Hip: COMPARISON: CT - EXT LOWER W/O CONTRAST LEFT 2018-02-22 16:00 FINDINGS: Bones/joints: No acute fracture. No dislocation. Severe degenerative changes in the right hip with joint space narrowing, irregularity along the articular surfaces of the acetabulum and femoral head, increased sclerosis and subchondral cyst formation. Irregular increased sclerosis in the right femoral neck, stable. Suggestion of a mild right hip joint effusion Soft tissues: Unremarkable. Vasculature: Distal end of left iliac stent. Iliac and femoral arterial calcified plaque. Bowel: Partially visualized broad midline ventral pelvic wall hernia containing multiple segments of nonobstructed bowel. Partially visualized right ventral wall ostomy and parastomal hernia containing segment of nonobstructed bowel. Feces mildly distends the rectosigmoid colon, stable from prior exam. Sigmoid colon is otherwise diffusely decompressed with a suture line proximally likely relating to large bowel resection. IMPRESSION: Advanced degenerative/arthritic changes in the right hip with no acute traumatic osseous injury. Possible mild right hip joint effusion, stable. Nonacute findings as above. Dictated and Authenticated by: Segundo Jimenez MD - Lab Interpretations Lab Results: 04/25/18 18:40 04/25/18 18:40 Lab Results 04/25/18 18:40: Sodium 139, Potassium 5.0, Chloride 104, Carbon Dioxide 24, Anion Gap 16, BUN 27 H, Creatinine 1.8 H, Est GFR ( Amer) 33, Est GFR ( Non-Af Amer) 28, Random Glucose 137 H, Calcium 8.6, Total Bilirubin < 0.1 L, AST 31, ALT 16, Alkaline Phosphatase 129 H D, Total Protein 6.5, Albumin 3.4, Globulin 3.1, Albumin/Globulin Ratio 1.1 04/25/18 18:40: WBC 12.0 H, RBC 3.71, Hgb 11.6 L, Hct 36.6, MCV 98.7 D, MCH 31.3, MCHC 31.7, RDW 13.7, Plt Count 211, MPV 9.7, Gran % 83.7 H, Lymph % (Auto ) 10.6 L, Bartholomew % (Auto) 4.8, Eos % (Auto) 0.7 L, Baso % (Auto) 0.2, Gran # 10.02 H, Lymph # (Auto) 1.3, Bartholomew # (Auto) 0.6, Eos # (Auto) 0.1, Baso # (Auto) 0.02 - RAD Interpretation Radiology Orders: 04/25/18 18:03 KNEES BILATERAL [RAD] Stat 04/25/18 18:04 PELVIS ONE VIEW [RAD] Stat 04/25/18 19:38 CT HIP W/O CONTRAST BILATERAL [CT] Stat - Medication Orders Current Medication Orders: Insulin Human Regular (Humulin R Low) 0 units SC ACHS MADHAVI PRN Reason: Protocol Pantoprazole Sodium (Protonix Inj) 40 mg IVP DAILY MADHAVI Discontinued Medications Acetaminophen (Tylenol 325mg Tab) 650 mg PO STAT STA Stop: 04/25/18 18:04 Last Admin: 04/25/18 18:42 Dose: 650 mg MAR Pain/Vitals Document 04/25/18 18:42 EQ (Rec: 04/25/18 18:43 EQ [email or web address] Pain Reassessment Is This A Pain ReAssessment? No Sleep Is patient sleeping during reassessment? No Presence of Pain Presence of Pain Yes Bacitracin (Bacitracin) 1 ea TOP ONCE ONE Stop: 04/25/18 18:47 Oxycodone/Acetaminophen (Percocet 5/325 Mg Tab) 1 tab PO STAT STA Stop: 04/25/18 19:53 Last Admin: 04/25/18 20:08 Dose: 1 tab MAR Pain Assessment Document 04/25/18 20:08 AD (Rec: 04/25/18 20:08 AD [email or web address] Pain Reassessment Is this a pain reassessment? No Presence of Pain Presence of Pain Yes Description Intensity of Pain at present 8 Disposition/Present on Arrival - Present on Arrival Any Indicators Present on Arrival: No History of DVT/PE: No History of Uncontrolled Diabetes: No Urinary Catheter: No History of Decub. Ulcer: No History Surgical Site Infection Following: None - Disposition Have Diagnosis and Disposition been Completed?: Yes Diagnosis: Abrasion of knee, bilateral, Leg weakness, bilateral, Effusion of hip joint, right Disposition: HOSPITALIZED Disposition Time: 22:00 Patient Plan: Admission Patient Problems: Current Active Problems Problem Status Onset Abrasion of knee, bilateral Acute Leg weakness, bilateral Acute Condition: FAIR
[2018-04-26] MEDS: Morphine 2 mg/2 mL syringe IVP PRN ×5 (00:04→22:40)
[2018-04-26 07:03] LABS: BASO # 0.02 K/mm3 (0.0-2.0); BASO % 0.2 % (0.0-3.0); EOS # 0.2 (0.0-0.7); EOS % 1.7 % (1.5-5.0); GRAN # 7.47 (1.4-6.5); GRAN % 79.6 % (50.0-68.0); HEMOGLOBIN 10.9 g/dL (12.0-16.0); LYMPH # 1.2 (1.2-3.4); LYMPH % 12.3 % (22.0-35.0); MEAN CELL VOLUME 97.2 fl (80.0-105.0); MEAN CORPUSCULAR HGB CONC 31.9 g/dl (31.0-37.0); MEAN PLATELET VOLUME 9.8 fl (7.0-11.0); MONO # 0.6 (0.1-0.6); MONO % 6.2 % (1.0-6.0); RBC 3.52 10^6/uL (3.5-6.1); RED CELL DISTRIBUTION WIDTH 13.8 % (11.5-14.5); WHITE BLOOD COUNT 9.4 10^3/ul (4.5-11.0)
[2018-04-26] MEDS ORDERED: Magnesium Sulfate 2 gm/50 ml 2 GM/50 ML BAG IV ONE (07:08)
[2018-04-26] MEDS: Insulin Reg-LOW-Coverage SC SCH ×4 (08:00→23:58)
--- NOTE | 2018-04-26 09:06 | CT ---
PROCEDURE: HISTORY: non ambulatory COMPARISON: none TECHNIQUE: FINDINGS: Markedly severe degenerative changes of the right hip with joint space narrowing, subchondral sclerosis, marginal spur formation as well as extensive subchondral cyst formation in the femoral and acetabulum. No acute fracture or dislocation. No acute fracture dislocation of the left hip. Lower anterior abdominal wall hernia as well as right lower quadrant ostomy. IMPRESSION: Markedly severe degenerative changes of the right hip.
[2018-04-26] MEDS: metOLazone 2.5 MG TAB PO SCH (10:05)
--- NOTE | 2018-04-26 10:25 | RAD ---
PROCEDURE: Radiographs of the pelvis. HISTORY: Pain; rule out fracture. COMPARISON: Comparison made with CT scan of the pelvis dated 04/25/2018 FINDINGS: BONES: Significant degenerative osteoarthritis right hip. No evidence of acute displaced fracture nor dislocation. Osseous structures otherwise intact. JOINTS: Sacroiliac Joints: Intact though there does appear to be mild sclerosis. Pubic Symphysis: Intact. OTHER FINDINGS: Note also made of multiple endovascular stent grafts within the abdominal aorta and iliac arteries. IMPRESSION: No evidence of acute fracture. Significant degenerative osteoarthritis right hip joint.
--- NOTE | 2018-04-26 10:53 | RAD ---
PROCEDURE: Bilateral Knee Radiographs. HISTORY: knee pain r/o fx COMPARISON: None. FINDINGS: BONES: No evidence of acute displaced fracture nor dislocation. The osseous structures intact. JOINTS: Left knee findings: No evidence of acute displaced fracture nor dislocation. Tricompartmental degenerative osteoarthritis with joint space narrowing, with small marginal medial and lateral osteophyte formation. In addition, there also appears to be a small amount of calcification within the lateral joint space margin possibly representing chondrocalcinosis. Rule out CPPD. Questionable tiny amount of calcification medial aspect medial compartment. In addition, significant patellofemoral degenerative osteoarthritis with anterior patella enthesophyte formation. Small to medium size suprapatellar joint effusion. Right knee findings: No evidence of acute displaced fracture nor dislocation. . There appears to be some very minor medial joint space narrowing. . Minor degenerative changes patellofemoral compartment. Anterior patella enthesophyte formation. There is a small suprapatellar joint effusion. SOFT TISSUES: Vascular calcifications are present bilaterally. Mental column small vascular clips medial soft tissues of the left lower extremity consistent with prior venous graft harvest JOINT EFFUSION: As above OTHER FINDINGS: None. IMPRESSION: DJD both knees left greater than right with bilateral joint effusions left slightly larger than right as well.
--- NOTE | 2018-04-26 12:00 | CP.PCM.PN ---
<Marycarmen Hanks - Last Filed: 04/26/18 12:16> Subjective - Date & Time of Evaluation Date of Evaluation: 04/26/18 Time of Evaluation: 11:57 - Subjective Subjective: Marycarmen Hanks, PGY1, Medicine Progress Note for Dr Parada: Patient seen and examined at bedside. No acute events overnight. Patient states that she still feels generalized weakness. Denies cough, cold, paralysis, diarrhea, constipation, fevers, chills, nausea, vomiting, cp, sob, abdominal pain, leg swelling. Objective - Vital Signs/Intake and Output Vital Signs (last 24 hours): Temp Pulse Resp BP Pulse Ox 98.7 F 88 18 150/90 95 04/26/18 06:00 04/26/18 06:00 04/26/18 06:00 04/26/18 10:04 04/26/18 06:00 Intake and Output: 04/26/18 04/26/18 06:59 18:59 Intake Total 120 Balance 120 - Medications Medications: Current Medications Ascorbic Acid (Vitamin C 500 Mg Tab) 500 mg PO DAILY [facility] Last Admin: 04/26/18 10:05 Dose: 500 mg Aspirin (Ecotrin) 81 mg PO DAILY [facility] Last Admin: 04/26/18 10:05 Dose: 81 mg Cholecalciferol (Vitamin D) 1,000 intlu PO DAILY [facility] Cyanocobalamin (Vitamin B12 1000 Mcg Tab) 1,000 mcg PO BID [facility] Last Admin: 04/26/18 10:05 Dose: 1,000 mcg Furosemide (Lasix) 40 mg PO BID [facility] Last Admin: 04/26/18 10:04 Dose: 40 mg Insulin Human Regular (Humulin R Low) 0 units SC ACHS [facility] PRN Reason: Protocol Last Admin: 04/26/18 08:00 Dose: Not Given Isosorbide Dinitrate (Isordil) 60 mg PO DAILY [facility] Last Admin: 04/26/18 10:04 Dose: 60 mg Metolazone (Zaroxolyn) 2.5 mg PO DAILY [facility] Last Admin: 04/26/18 10:05 Dose: 2.5 mg Metoprolol Tartrate (Lopressor) 100 mg PO BRKDIN [facility] Last Admin: 04/26/18 10:04 Dose: 100 mg Morphine Sulfate (Morphine) 1 mg IVP Q4H PRN PRN Reason: Pain, severe (8-10) Last Admin: 04/26/18 10:02 Dose: 1 mg Pantoprazole Sodium (Protonix Ec Tab) 40 mg PO 0600 [facility] Primidone (Mysoline) 50 mg PO HS [facility] - Labs Labs: 04/26/18 05:00 04/26/18 05:00 - Constitutional Appears: Non-toxic, No Acute Distress - Head Exam Head Exam: ATRAUMATIC, NORMOCEPHALIC - Eye Exam Eye Exam: EOMI, PERRL. absent: Conjunctival injection, Nystagmus, Scleral icterus Pupil Exam: NORMAL ACCOMODATION, PERRL. absent: Fixed, Irregular, Miosis, Unequal - ENT Exam ENT Exam: Mucous Membranes Moist - Neck Exam Neck Exam: Full ROM - Respiratory Exam Respiratory Exam: Clear to Ausculation Bilateral, NORMAL BREATHING PATTERN. absent: Accessory Muscle Use, Chest Wall Tenderness, Rales, Rhonchi, Wheezes, Respiratory Distress, Stridor - Cardiovascular Exam Cardiovascular Exam: RRR, +S1, +S2, Murmur - GI/Abdominal Exam GI & Abdominal Exam: Soft, Normal Bowel Sounds. absent: Distended, Firm, Rigid , Tenderness, Mass, Organomegaly, Rebound Additional comments: + ileostomy bag in RLQ - Extremities Exam Extremities Exam: Normal Inspection. absent: Calf Tenderness, Pedal Edema - Back Exam Back Exam: NORMAL INSPECTION. absent: CVA tenderness (L), CVA tenderness (R) - Neurological Exam Neurological Exam: Alert, Awake, Oriented x3 Neuro motor strength exam: Left Upper Extremity: 5, Right Upper Extremity: 5, Left Lower Extremity: 4, Right Lower Extremity: 4 Additional comments: + sensation intact. Left big toe covered in dressing - Psychiatric Exam Psychiatric exam: Normal Affect, Normal Mood - Skin Skin Exam: Dry, Normal Color, Warm Assessment and Plan - Assessment and Plan (Free Text) Assessment: 73 year old male with PMH AAA repair, CAD s/p CABG, chronic ataxia, colectomy s/ p ischemic colitis, ckd stage 4, cardiomyopathy, CHF (EF 33% on 04/2017), pacemaker and DM, admitted for difficulty ambulating: Difficulty ambulating: -Pelvis and knee xray are negative. -Hip CT shows markedly severe degenerative changes of right hip. Discussed with patient and , states that she is aware and does not want hip replacement. -IV Morphine prn pain -Physical therapy: TCU -TCU eval -Podiatry consulted. f/u recs hx of DM: -Home medications held. -A1c 6.5 on 01/2018 -ISS. -Accu checks ACHS -Mod consistent carb diet. hx of CHF: -ASA -Metoprolol -Intake and output Leukocytosis -WBC 12,000 upon admission. -Resolved -UA shows mild infection. Patient asymptomatic. -monitor PPX -Protonix -SCD's Dispo: TCU eval. Case seen and discussed with Dr Parada. Marycarmen Hanks, PGY1 <Gerry Parada - Last Filed: 04/28/18 10:01> Objective - Vital Signs/Intake and Output Vital Signs (last 24 hours): Temp Pulse Resp BP Pulse Ox 99 F 91 H 20 138/71 96 04/28/18 08:22 04/28/18 08:22 04/28/18 08:22 04/28/18 08:22 04/28/18 08:22 Intake and Output: 04/28/18 04/28/18 06:59 18:59 Intake Total 660 Output Total 300 Balance 360 - Medications Medications: Current Medications Ascorbic Acid (Vitamin C 500 Mg Tab) 500 mg PO DAILY [facility] Last Admin: 04/27/18 10:23 Dose: 500 mg Aspirin (Ecotrin) 81 mg PO DAILY [facility] Last Admin: 04/27/18 10:23 Dose: 81 mg Cholecalciferol (Vitamin D) 1,000 intlu PO DAILY [facility] Last Admin: 04/27/18 10:23 Dose: 1,000 intlu Cyanocobalamin (Vitamin B12 1000 Mcg Tab) 1,000 mcg PO BID [facility] Last Admin: 04/27/18 17:18 Dose: 1,000 mcg Furosemide (Lasix) 40 mg PO BID [facility] Last Admin: 04/27/18 17:18 Dose: 40 mg Insulin Human Regular (Humulin R Low) 0 units SC [facility] PRN Reason: Protocol Last Admin: 04/28/18 08:07 Dose: 2 units Isosorbide Dinitrate (Isordil) 60 mg PO DAILY [facility] Last Admin: 04/27/18 10:23 Dose: 60 mg Metolazone (Zaroxolyn) 2.5 mg PO DAILY [facility] Last Admin: 04/27/18 10:23 Dose: 2.5 mg Metoprolol Tartrate (Lopressor) 100 mg PO BRKDIN [facility] Last Admin: 04/28/18 08:09 Dose: 100 mg Morphine Sulfate (Morphine) 1 mg IVP Q4H PRN PRN Reason: Pain, severe (8-10) Last Admin: 04/28/18 05:21 Dose: 1 mg Pantoprazole Sodium (Protonix Ec Tab) 40 mg PO 0600 [facility] Last Admin: 04/28/18 05:22 Dose: 40 mg Primidone (Mysoline) 50 mg PO HS [facility] Last Admin: 04/27/18 21:55 Dose: 50 mg - Labs Labs: 04/28/18 05:15 04/28/18 05:15 Attending/Attestation - Attestation I have personally seen and examined this patient.: Yes I have fully participated in the care of the patient.: Yes I have reviewed all pertinent clinical information, including history, physical exam and plan: Yes Notes (Text): 04/28/18 09:59 Attending note; Patient seen and examined with resident. Patient is a 73 year old male with PMH AAA repair, CAD s/p CABG, chronic ataxia , colectomy s/p ischemic colitis, ckd stage , cardiomyopathy, CHF (EF 33% on 2016), pacemaker and DM, admitted for difficulty and fall. Patient has recent toe amputation. Currently walking with the shoe. Podiatry evaluation with Dr. Cortés requested. Continue local wound care of the left toe. gait instability; physical therapy evaluation requested. TCU recommended. We'll transfer to TCU once accepted.
[2018-04-26] MEDS: Cholecalciferol 1,000 INTLU TAB PO SCH (17:02)
[2018-04-27 05:51] LABS: BASO # 0.02 K/mm3 (0.0-2.0); BASO % 0.2 % (0.0-3.0); EOS # 0.4 (0.0-0.7); GRAN # 6.44 (1.4-6.5); GRAN % 69.8 % (50.0-68.0); HEMOGLOBIN 10.5 g/dL (12.0-16.0); LYMPH # 1.7 (1.2-3.4); LYMPH % 18.1 % (22.0-35.0); MEAN CELL VOLUME 98.2 fl (80.0-105.0); MEAN CORPUSCULAR HEMOGLOBIN 30.8 pg (25.0-35.0); MEAN CORPUSCULAR HGB CONC 31.3 g/dl (31.0-37.0); MONO # 0.7 (0.1-0.6); MONO % 7.9 % (1.0-6.0); RBC 3.41 10^6/uL (3.5-6.1); RED CELL DISTRIBUTION WIDTH 13.6 % (11.5-14.5); WHITE BLOOD COUNT 9.2 10^3/ul (4.5-11.0)
[2018-04-27] MEDS: Pantoprazole 40 mg EC Tab PO SCH (06:05)
[2018-04-27] MEDS: Morphine 2 mg/2 mL syringe IVP PRN (06:05)
[2018-04-27 06:09] LABS: ALBUMIN 2.9 g/dL (3.0-4.8); CALCIUM 8.1 mg/dL (8.4-10.5)
[2018-04-27] MEDS: Insulin Reg-LOW-Coverage SC SCH ×4 (08:22→21:55)
--- NOTE | 2018-04-27 09:30 | CP.PCM.CON ---
History of Present Illness - History of Present Illness History of Present Illness: Podiatry Consult Note for Dr. Vinnie Cortés 73 yo female with PMHx of CAD s/p CABG, cardiomyopathy, CHF s/p pacemaker placement, DM type 2, CKD stage 4, AAA s/p repair, coloectomy seen at bedside for left submetatarsal 1 wound. Patient is AAOX3 and in NAD. She notes that she has had the wound for over a year, and sees Dr. Cortés in office for continued local wound care. Patient believes that the wound is improving. Patient states that she is in no pain today to the left plantar wound. However, she does note that she has been experiencing lower extremity weakness when she walks, which led her to present to [facility] [place] [facility] [place]. Denies any other pedal complaints at this time. She denies any N/V/F/SOB/CP/C. Review of Systems - Review of Systems All systems: reviewed and no additional remarkable complaints except (as per HPI ) Past Patient History - Infectious Disease Hx of Infectious Diseases: None - Tetanus Immunizations Tetanus Immunization: Unknown - Past Social History Smoking Status: Former Smoker - CARDIAC Hx Pacemaker: Yes - PULMONARY Hx Respiratory Disorders: No - NEUROLOGICAL Hx Neurological Disorder: No - HEENT Hx Cataracts: Yes (bilateral laser sx) - RENAL Hx Chronic Kidney Disease: Yes - ENDOCRINE/METABOLIC Hx Diabetes Mellitus Type 2: Yes - HEMATOLOGICAL/ONCOLOGICAL Hx Blood Transfusions: No Hx Blood Transfusion Reaction: No - INTEGUMENTARY Other/Comment: STage 3 sacral ulcers. BLE redness w/ scattered scabs. Under breasts folds redness. Bilateral under belly Folds redness skin excoriated - MUSCULOSKELETAL/RHEUMATOLOGICAL Hx Arthritis: Yes - GASTROINTESTINAL Hx Gastrointestinal Disorders: Yes (umbilical hernia) Hx Ileostomy: Yes - GENITOURINARY/GYNECOLOGICAL Hx Genitourinary Disorders: No - PSYCHIATRIC Hx Psychophysiologic Disorder: No Hx Substance Use: No - SURGICAL HISTORY Hx Amputation: Yes (left foot 2nd digit) - ANESTHESIA Hx Anesthesia: Yes Hx Anesthesia Reactions: No Hx Malignant Hyperthermia: No Meds Allergies/Adverse Reactions: Allergies Allergy/AdvReac Type Severity Reaction Status Date / Time doxycycline Allergy ANAPHYLAXIS Verified 04/25/18 18:00 shellfish derived Allergy ANAPHYLAXIS Verified 02/19/17 13:57 - Medications Medications: Current Medications Ascorbic Acid (Vitamin C 500 Mg Tab) 500 mg PO DAILY [facility] Last Admin: 04/26/18 10:05 Dose: 500 mg Aspirin (Ecotrin) 81 mg PO DAILY [facility] Last Admin: 04/26/18 10:05 Dose: 81 mg Cholecalciferol (Vitamin D) 1,000 intlu PO DAILY [facility] Last Admin: 04/26/18 17:02 Dose: 1,000 intlu Cyanocobalamin (Vitamin B12 1000 Mcg Tab) 1,000 mcg PO BID [facility] Last Admin: 04/26/18 17:02 Dose: 1,000 mcg Furosemide (Lasix) 40 mg PO BID [facility] Last Admin: 04/26/18 17:02 Dose: 40 mg Insulin Human Regular (Humulin R Low) 0 units SC ACHS [facility] PRN Reason: Protocol Last Admin: 04/27/18 08:22 Dose: 1 units Isosorbide Dinitrate (Isordil) 60 mg PO DAILY [facility] Last Admin: 04/26/18 10:04 Dose: 60 mg Metolazone (Zaroxolyn) 2.5 mg PO DAILY [facility] Last Admin: 04/26/18 10:05 Dose: 2.5 mg Metoprolol Tartrate (Lopressor) 100 mg PO BRKDIN [facility] Last Admin: 04/27/18 08:23 Dose: 100 mg Morphine Sulfate (Morphine) 1 mg IVP Q4H PRN PRN Reason: Pain, severe (8-10) Last Admin: 04/27/18 06:05 Dose: 1 mg Pantoprazole Sodium (Protonix Ec Tab) 40 mg PO 0600 [facility] Last Admin: 04/27/18 06:05 Dose: 40 mg Primidone (Mysoline) 50 mg PO HS [facility] Last Admin: 04/26/18 21:27 Dose: 50 mg Physical Exam - Constitutional Appears: Well, Non-toxic, No Acute Distress - Head Exam Head Exam: ATRAUMATIC, NORMOCEPHALIC - Extremities Exam Additional comments: LLE focused exam: Vascular: DP 1/4 and PT 1/4. CFT <3 seconds to 3 digits. Pedal hair absent. Temperature gradient warm to cool. No edema noted to leg. Ortho: Partial hallux amputation. Second digit amputation. MMT 5/5. No tenderness to palpation to left hallux wound. Neuro: Gross sensation intact. Protective sensation diminished. Derm: Left plantar submetatarsal head 1 wound measuring .9x.8x.2 cm. Minimal maceration periwound. Mild serous drainage. No evidence of purulence. No erythema noted. No signs of ascending cellulitis. No clinical signs of infection. Hemosiderin deposits and hyperpigmentation noted to anterior leg. Second digit amputation site healed with skin edges well coapted and no open lesions noted. - Neurological Exam Neurological exam: Alert, Oriented x3 - Psychiatric Exam Psychiatric exam: Normal Affect, Normal Mood Results - Vital Signs Recent Vital Signs: Last Vital Signs Temp 98.2 F 04/27/18 08:00 Pulse 82 04/27/18 08:23 Resp 18 04/27/18 08:00 BP 175/81 H 04/27/18 08:23 Pulse Ox 94 L 04/27/18 08:00 - Labs Result Diagrams: 04/27/18 05:27 04/27/18 05:27 Labs: Laboratory Results - last 24 hr 04/26/18 04/26/18 04/26/18 12:30 16:38 21:58 WBC RBC Hgb Hct MCV MCH MCHC RDW Plt Count MPV Gran % Lymph % (Auto) Major % (Auto) Eos % (Auto) Baso % (Auto) Gran # Lymph # (Auto) Major # (Auto) Eos # (Auto) Baso # (Auto) Sodium Potassium Chloride Carbon Dioxide Anion Gap BUN Creatinine Est GFR ( Amer) Est GFR (Non-Af Amer) POC Glucose (mg/dL) 222 H 169 H Random Glucose Hemoglobin A1c 6.1 Calcium Total Bilirubin AST ALT Alkaline Phosphatase Total Protein Albumin Globulin Albumin/Globulin Ratio 04/27/18 04/27/18 04/27/18 05:27 05:27 06:33 WBC 9.2 RBC 3.41 L Hgb 10.5 L Hct 33.5 L MCV 98.2 MCH 30.8 MCHC 31.3 RDW 13.6 Plt Count 180 MPV 10.0 Gran % 69.8 H Lymph % (Auto) 18.1 L Major % (Auto) 7.9 H Eos % (Auto) 4.0 Baso % (Auto) 0.2 Gran # 6.44 Lymph # (Auto) 1.7 Major # (Auto) 0.7 H Eos # (Auto) 0.4 Baso # (Auto) 0.02 Sodium 135 Potassium 4.1 Chloride 100 Carbon Dioxide 27 Anion Gap 11 BUN 36 H Creatinine 2.0 H Est GFR ( Amer) 30 Est GFR (Non-Af Amer) 24 POC Glucose (mg/dL) 168 H Random Glucose 163 H Hemoglobin A1c Calcium 8.1 L Total Bilirubin 0.6 AST 35 ALT 18 Alkaline Phosphatase 96 Total Protein 5.8 Albumin 2.9 L Globulin 2.9 Albumin/Globulin Ratio 1.0 L Assessment & Plan - Assessment and Plan (Free Text) Assessment: 73 yo female with PMHx of CAD s/p CABG, cardiomyopathy, CHF s/p pacemaker placement, DM type 2, CKD stage 4, AAA s/p repair, coloectomy seen at bedside for left submetatarsal head 1 wound. Plan: Patient seen and evaluated Discussed plan with Dr. Cortés Afebrile overnight- 98.2 (04/26/2018) Absent leukocytosis Bilateral foot and ankle XR reviewed: unremarkable Wound cleansed with saline and dressed with Maxorb and Optifoam Culture of left ulceration taken Continue PT/OT Podiatry to follow while patient is in house
--- NOTE | 2018-04-27 09:35 | RAD ---
PROCEDURE: Bilateral Feet Radiographs. HISTORY: Pain comment eric dysfunction COMPARISON: None. FINDINGS: BONES: Right Foot: Normal. No fracture. Left Foot: Postoperative findings related to 1st and 2nd digit resection. JOINTS: Right Foot: Severe hallux valgus deformity. Multiple hammertoe deformities. Left Foot: Hammertoe deformity/ subluxed 3rd metatarsal phalangeal joint. SOFT TISSUES: Right Foot: Normal. Left Foot: Normal. OTHER FINDINGS: None. IMPRESSION: No acute findings related to/accounting for the clinical presentation.
--- NOTE | 2018-04-27 09:36 | RAD ---
PROCEDURE: Bilateral ankles HISTORY: pain COMPARISON: April 26, 2018. TECHNIQUE: Standard protocol for this study/examination. FINDINGS: No acute osseous or articular abnormalities. Asymmetrical soft tissue swelling lateral malleolar region right ankle compared to. IMPRESSION: No acute findings related to/accounting for the clinical presentation.
--- NOTE | 2018-04-27 10:19 | CP.PCM.PN ---
<Marycarmen Hanks - Last Filed: 04/27/18 10:14> Subjective - Date & Time of Evaluation Date of Evaluation: 04/27/18 Time of Evaluation: 10:14 - Subjective Subjective: Marycarmen Hanks, PGY1, Medicine Progress Note for Dr Parada: Patient seen and examined at bedside. No acute events overnight. Patient still reports difficulty ambulating and decreased strength. Denies fever, chills, nausea, vomiting, progressive weakness, abdominal pain, leg swelling, wound drainage from left toe amputation. Objective - Vital Signs/Intake and Output Vital Signs (last 24 hours): Temp Pulse Resp BP Pulse Ox 98.2 F 82 18 175/81 H 94 L 04/27/18 08:00 04/27/18 08:23 04/27/18 08:00 04/27/18 08:23 04/27/18 08:00 Intake and Output: 04/27/18 04/27/18 06:59 18:59 Intake Total 180 Balance 180 - Medications Medications: Current Medications Ascorbic Acid (Vitamin C 500 Mg Tab) 500 mg PO DAILY [facility] Last Admin: 04/26/18 10:05 Dose: 500 mg Aspirin (Ecotrin) 81 mg PO DAILY [facility] Last Admin: 04/26/18 10:05 Dose: 81 mg Cholecalciferol (Vitamin D) 1,000 intlu PO DAILY [facility] Last Admin: 04/26/18 17:02 Dose: 1,000 intlu Cyanocobalamin (Vitamin B12 1000 Mcg Tab) 1,000 mcg PO BID [facility] Last Admin: 04/26/18 17:02 Dose: 1,000 mcg Furosemide (Lasix) 40 mg PO BID [facility] Last Admin: 04/26/18 17:02 Dose: 40 mg Insulin Human Regular (Humulin R Low) 0 units SC [facility] PRN Reason: Protocol Last Admin: 04/27/18 08:22 Dose: 1 units Isosorbide Dinitrate (Isordil) 60 mg PO DAILY [facility] Last Admin: 04/26/18 10:04 Dose: 60 mg Metolazone (Zaroxolyn) 2.5 mg PO DAILY [facility] Last Admin: 04/26/18 10:05 Dose: 2.5 mg Metoprolol Tartrate (Lopressor) 100 mg PO BRKDIN [facility] Last Admin: 04/27/18 08:23 Dose: 100 mg Morphine Sulfate (Morphine) 1 mg IVP Q4H PRN PRN Reason: Pain, severe (8-10) Last Admin: 04/27/18 06:05 Dose: 1 mg Pantoprazole Sodium (Protonix Ec Tab) 40 mg PO 0600 [facility] Last Admin: 04/27/18 06:05 Dose: 40 mg Primidone (Mysoline) 50 mg PO HS [facility] Last Admin: 04/26/18 21:27 Dose: 50 mg - Labs Labs: 04/27/18 05:27 04/27/18 05:27 - Additional Findings Additional findings: - Constitutional Appears: Non-toxic, No Acute Distress - Head Exam Head Exam: ATRAUMATIC, NORMOCEPHALIC - Eye Exam Eye Exam: EOMI, PERRL. absent: Conjunctival injection, Nystagmus, Scleral icterus Pupil Exam: NORMAL ACCOMODATION, PERRL. absent: Fixed, Irregular, Miosis, Unequal - ENT Exam ENT Exam: Mucous Membranes Moist - Neck Exam Neck Exam: Full ROM - Respiratory Exam Respiratory Exam: Clear to Ausculation Bilateral, NORMAL BREATHING PATTERN. absent: Accessory Muscle Use, Chest Wall Tenderness, Rales, Rhonchi, Wheezes, Respiratory Distress, Stridor - Cardiovascular Exam Cardiovascular Exam: RRR, +S1, +S2, Murmur - GI/Abdominal Exam GI & Abdominal Exam: Soft, Normal Bowel Sounds. absent: Distended, Firm, Rigid , Tenderness, Mass, Organomegaly, Rebound Additional comments: + ileostomy bag in RLQ - Extremities Exam Extremities Exam: Normal Inspection. absent: Calf Tenderness, Pedal Edema - Back Exam Back Exam: NORMAL INSPECTION. absent: CVA tenderness (L), CVA tenderness (R) - Neurological Exam Neurological Exam: Alert, Awake, Oriented x3 Neuro motor strength exam: Left Upper Extremity: 5, Right Upper Extremity: 5, Left Lower Extremity: 4, Right Lower Extremity: 4 Additional comments: + sensation intact. Left big toe, amputated, covered in dressing - Psychiatric Exam Psychiatric exam: Normal Affect, Normal Mood - Skin Skin Exam: Dry, Normal Color, Warm Assessment and Plan - Assessment and Plan (Free Text) Assessment: 73 year old male with PMH AAA repair, CAD s/p CABG, chronic ataxia, colectomy s/ p ischemic colitis, ckd stage 4, cardiomyopathy, CHF (EF 33% on 04/2017), pacemaker and DM, admitted for difficulty ambulating likely multifactorial ( peripheral neuropathy, left foot wound/amputation, right hip OA). Physical therapy recommends TCU, scheduled for placement tomorrow: Difficulty ambulating: -Pelvis, knee, bilateral ankle xrays are negative. -Hip CT shows markedly severe degenerative changes of right hip. Discussed with patient and , states that she is aware and does not want hip replacement. -IV Morphine prn pain -Physical therapy: TCU -Podiatry consulted. appreciate recs. f/u would culture. hx of DM: -Home medications held. -A1c 6.5 on 01/2018 -ISS. -Accu checks ACHS -Mod consistent carb diet. hx of CHF: -ASA -Metoprolol -Intake and output Leukocytosis -WBC 12,000 upon admission. -Resolved -UA shows mild infection. Patient asymptomatic. -monitor PPX -Protonix -SCD's Dispo: to be transferred to TCU on Sunday. Case seen and discussed with Dr Parada. Marycarmen Hanks, PGY1 <Gerry Parada - Last Filed: 04/28/18 10:04> Objective - Vital Signs/Intake and Output Vital Signs (last 24 hours): Temp Pulse Resp BP Pulse Ox 99 F 91 H 20 128/76 96 04/28/18 08:22 04/28/18 08:22 04/28/18 08:22 04/28/18 09:53 04/28/18 08:22 Intake and Output: 04/28/18 04/28/18 06:59 18:59 Intake Total 660 Output Total 300 Balance 360 - Medications Medications: Current Medications Ascorbic Acid (Vitamin C 500 Mg Tab) 500 mg PO DAILY [facility] Last Admin: 04/28/18 09:54 Dose: 500 mg Aspirin (Ecotrin) 81 mg PO DAILY [facility] Last Admin: 04/28/18 09:53 Dose: 81 mg Cholecalciferol (Vitamin D) 1,000 intlu PO DAILY [facility] Last Admin: 04/28/18 09:54 Dose: 1,000 intlu Cyanocobalamin (Vitamin B12 1000 Mcg Tab) 1,000 mcg PO BID [facility] Last Admin: 04/28/18 09:54 Dose: 1,000 mcg Furosemide (Lasix) 40 mg PO BID [facility] Last Admin: 04/28/18 09:53 Dose: 40 mg Insulin Human Regular (Humulin R Low) 0 units SC [facility] PRN Reason: Protocol Last Admin: 04/28/18 08:07 Dose: 2 units Isosorbide Dinitrate (Isordil) 60 mg PO DAILY [facility] Last Admin: 04/28/18 09:53 Dose: 60 mg Metolazone (Zaroxolyn) 2.5 mg PO DAILY [facility] Last Admin: 04/28/18 09:54 Dose: 2.5 mg Metoprolol Tartrate (Lopressor) 100 mg PO BRKDIN [facility] Last Admin: 04/28/18 08:09 Dose: 100 mg Morphine Sulfate (Morphine) 1 mg IVP Q4H PRN PRN Reason: Pain, severe (8-10) Last Admin: 04/28/18 09:54 Dose: 1 mg Pantoprazole Sodium (Protonix Ec Tab) 40 mg PO 0600 [facility] Last Admin: 04/28/18 05:22 Dose: 40 mg Primidone (Mysoline) 50 mg PO HS [facility] Last Admin: 04/27/18 21:55 Dose: 50 mg - Labs Labs: 04/28/18 05:15 04/28/18 05:15 Attending/Attestation - Attestation I have personally seen and examined this patient.: Yes I have fully participated in the care of the patient.: Yes I have reviewed all pertinent clinical information, including history, physical exam and plan: Yes Notes (Text): 04/28/18 10:01 Attending note; Patient seen and examined with resident. Patient is a 73 year old male with PMH AAA repair, CAD s/p CABG, chronic ataxia , colectomy s/p ischemic colitis, ckd stage , cardiomyopathy, CHF (EF 33% on 2016), pacemaker and DM, admitted for difficulty and fall. Patient has recent toe amputation with clear margin. Currently walking with the shoe. Continue local wound care of the left toe. Patient is afebrile and nontoxic. Wound culture sent. Podiatry evaluation appreciated. chronic kidney disease; creatinine is stable at 1.9-2. gait instability; physical therapy evaluation appreciated . TCU recommended. We'll transfer to TCU once accepted. Upon discharge patient will follow-up with PMD . 04/28/18 10:02 04/28/18 10:04
[2018-04-27] MEDS: metOLazone 2.5 MG TAB PO SCH (10:23)
[2018-04-27] MEDS: Cholecalciferol 1,000 INTLU TAB PO SCH (10:23)
[2018-04-27] MEDS: Morphine 2 mg/ml ISec IVP PRN ×2 (10:45→20:47)
[2018-04-28] MEDS: Morphine 2 mg/ml ISec IVP PRN ×3 (01:20→09:54)
[2018-04-28] MEDS: Pantoprazole 40 mg EC Tab PO SCH (05:22)
[2018-04-28 05:49] LABS: BASO # 0.01 K/mm3 (0.0-2.0); BASO % 0.1 % (0.0-3.0); EOS # 0.3 (0.0-0.7); EOS % 2.2 % (1.5-5.0); GRAN # 8.82 (1.4-6.5); HEMOGLOBIN 10.4 g/dL (12.0-16.0); LYMPH # 1.4 (1.2-3.4); LYMPH % 12.6 % (22.0-35.0); MEAN CORPUSCULAR HGB CONC 31.9 g/dl (31.0-37.0); MEAN PLATELET VOLUME 9.7 fl (7.0-11.0); MONO # 0.9 (0.1-0.6); MONO % 8.1 % (1.0-6.0); RBC 3.36 10^6/uL (3.5-6.1); RED CELL DISTRIBUTION WIDTH 13.3 % (11.5-14.5); WHITE BLOOD COUNT 11.5 10^3/ul (4.5-11.0)
[2018-04-28 06:18] LABS: ALBUMIN 2.9 g/dL (3.0-4.8); CALCIUM 7.9 mg/dL (8.4-10.5)
[2018-04-28] MEDS: Insulin Reg-LOW-Coverage SC SCH ×4 (08:07→22:28)
[2018-04-28] MEDS: Cholecalciferol 1,000 INTLU TAB PO SCH (09:54)
[2018-04-28] MEDS: metOLazone 2.5 MG TAB PO SCH (09:54)
--- NOTE | 2018-04-28 10:09 | CP.PCM.PN ---
Subjective - Date & Time of Evaluation Date of Evaluation: 04/28/18 Time of Evaluation: 10:06 - Subjective Subjective: Podiatry Progress notes for attending Dr. Vinnie Cortés 73 Y/O F patient seen and evaluated at bedside for L sub 1st met head wound. Patient resting comfortably in bed, NAD. No acute events overnight. Patient reports pain in her feet from previous lower extremity weakness s/p fall at home , however states pain is slowly improving. Patient states she has not tried ambulating this admission. Dressing to left foot remains clean/dry/intact. Denies N/V/F/D/C/SOB/BLANCO/dizziness. Offers no other complaints. Objective - Vital Signs/Intake and Output Vital Signs (last 24 hours): Temp Pulse Resp BP Pulse Ox 99 F 91 H 20 128/76 96 04/28/18 08:22 04/28/18 08:22 04/28/18 08:22 04/28/18 09:53 04/28/18 08:22 Intake and Output: 04/28/18 04/28/18 06:59 18:59 Intake Total 660 Output Total 300 Balance 360 - Medications Medications: Current Medications Ascorbic Acid (Vitamin C 500 Mg Tab) 500 mg PO DAILY [facility] Last Admin: 04/28/18 09:54 Dose: 500 mg Aspirin (Ecotrin) 81 mg PO DAILY [facility] Last Admin: 04/28/18 09:53 Dose: 81 mg Cholecalciferol (Vitamin D) 1,000 intlu PO DAILY [facility] Last Admin: 04/28/18 09:54 Dose: 1,000 intlu Cyanocobalamin (Vitamin B12 1000 Mcg Tab) 1,000 mcg PO BID [facility] Last Admin: 04/28/18 09:54 Dose: 1,000 mcg Furosemide (Lasix) 40 mg PO BID [facility] Last Admin: 04/28/18 09:53 Dose: 40 mg Insulin Human Regular (Humulin R Low) 0 units SC ACHS [facility] PRN Reason: Protocol Last Admin: 04/28/18 08:07 Dose: 2 units Isosorbide Dinitrate (Isordil) 60 mg PO DAILY [facility] Last Admin: 04/28/18 09:53 Dose: 60 mg Metolazone (Zaroxolyn) 2.5 mg PO DAILY [facility] Last Admin: 04/28/18 09:54 Dose: 2.5 mg Metoprolol Tartrate (Lopressor) 100 mg PO BRKDIN [facility] Last Admin: 04/28/18 08:09 Dose: 100 mg Morphine Sulfate (Morphine) 2 mg IVP Q6 [facility] Nystatin (Nystop Topical Powder) 1 gm TOP BID [facility] Pantoprazole Sodium (Protonix Ec Tab) 40 mg PO 0600 [facility] Last Admin: 04/28/18 05:22 Dose: 40 mg Primidone (Mysoline) 50 mg PO HS [facility] Last Admin: 04/27/18 21:55 Dose: 50 mg - Labs Labs: 04/28/18 05:15 04/28/18 05:15 - Constitutional Appears: Well, Non-toxic, No Acute Distress - Head Exam Head Exam: ATRAUMATIC, NORMOCEPHALIC - Extremities Exam Additional comments: Left LE focused exam: Vascular: DP 1/4, PT 1/4. Cap refill <3 seconds to all digits. Pedal hair absent. Temperature gradient warm to cool. No edema noted to leg. Neuro: Gross sensation intact. Protective sensation diminished. Derm: Left plantar submetatarsal head 1 wound measuring 0.9x0.8x0.2 cm. No maceration noted serafin-wound. Minimal serous drainage. No purulence. No erythema noted. No signs of ascending cellulitis. No clinical signs of active infection. Hemosiderin deposits with hyperpigmentation noted to anterior leg. Second digit amputation site healed with no open lesions noted. MSK: Partial hallux amputation. Second digit amputation. MMT 5/5. No tenderness to palpation to left hallux wound. - Neurological Exam Neurological Exam: Alert, Awake, Oriented x3 - Psychiatric Exam Psychiatric exam: Normal Affect, Normal Mood Assessment and Plan - Assessment and Plan (Free Text) Assessment: 73 Y/O F patient with L sub 1st met head ulcer, stable Plan: Patient seen and evaluated at bedside Discussed with attending, Dr. Vinnie Cortés Afebrile T99, WBC increasing 11.5 (trending upwards, 9.2 yesterday 04/27/18) Bilateral foot and ankle XR: unremarkable Continue local wound care - Maxorb and Optifoam L foot f/u left foot wound culture Continue PT/OT Podiatry will follow
--- NOTE | 2018-04-28 10:20 | CP.PCM.PN ---
<Marycarmen Hanks - Last Filed: 04/28/18 10:33> Subjective - Date & Time of Evaluation Date of Evaluation: 04/28/18 Time of Evaluation: 10:18 - Subjective Subjective: Marycarmen Hanks, PGY1, Medicine Progress Note for Dr Parada: Patient seen and examined at bedside. No acute events overnight. Patient reports increased pain in LLE. Also reports redness/rash beneath breasts. Patient still reports difficulty ambulating and decreased strength. Denies fever , chills, nausea, vomiting, leg swelling, urinary symptoms. Objective - Vital Signs/Intake and Output Vital Signs (last 24 hours): Temp Pulse Resp BP Pulse Ox 99 F 91 H 20 128/76 96 04/28/18 08:22 04/28/18 08:22 04/28/18 08:22 04/28/18 09:53 04/28/18 08:22 Intake and Output: 04/28/18 04/28/18 06:59 18:59 Intake Total 660 Output Total 300 Balance 360 - Medications Medications: Current Medications Ascorbic Acid (Vitamin C 500 Mg Tab) 500 mg PO DAILY [facility] Last Admin: 04/28/18 09:54 Dose: 500 mg Aspirin (Ecotrin) 81 mg PO DAILY [facility] Last Admin: 04/28/18 09:53 Dose: 81 mg Cholecalciferol (Vitamin D) 1,000 intlu PO DAILY [facility] Last Admin: 04/28/18 09:54 Dose: 1,000 intlu Cyanocobalamin (Vitamin B12 1000 Mcg Tab) 1,000 mcg PO BID [facility] Last Admin: 04/28/18 09:54 Dose: 1,000 mcg Furosemide (Lasix) 40 mg PO BID [facility] Last Admin: 04/28/18 09:53 Dose: 40 mg Insulin Human Regular (Humulin R Low) 0 units SC [facility] PRN Reason: Protocol Last Admin: 04/28/18 08:07 Dose: 2 units Isosorbide Dinitrate (Isordil) 60 mg PO DAILY [facility] Last Admin: 04/28/18 09:53 Dose: 60 mg Metolazone (Zaroxolyn) 2.5 mg PO DAILY [facility] Last Admin: 04/28/18 09:54 Dose: 2.5 mg Metoprolol Tartrate (Lopressor) 100 mg PO BRKDIN [facility] Last Admin: 04/28/18 08:09 Dose: 100 mg Morphine Sulfate (Morphine) 2 mg IVP Q6 [facility] Nystatin (Nystop Topical Powder) 1 gm TOP BID [facility] Pantoprazole Sodium (Protonix Ec Tab) 40 mg PO 0600 [facility] Last Admin: 04/28/18 05:22 Dose: 40 mg Primidone (Mysoline) 50 mg PO HS [facility] Last Admin: 04/27/18 21:55 Dose: 50 mg - Labs Labs: 04/28/18 05:15 04/28/18 05:15 - Additional Findings Additional findings: - Constitutional Appears: Non-toxic, No Acute Distress - Head Exam Head Exam: ATRAUMATIC, NORMOCEPHALIC - Eye Exam Eye Exam: EOMI, PERRL. absent: Conjunctival injection, Nystagmus, Scleral icterus Pupil Exam: NORMAL ACCOMODATION, PERRL. absent: Fixed, Irregular, Miosis, Unequal - ENT Exam ENT Exam: Mucous Membranes Moist - Neck Exam Neck Exam: Full ROM - Respiratory Exam Respiratory Exam: Clear to Ausculation Bilateral, NORMAL BREATHING PATTERN. absent: Accessory Muscle Use, Chest Wall Tenderness, Rales, Rhonchi, Wheezes, Respiratory Distress, Stridor - Cardiovascular Exam Cardiovascular Exam: RRR, +S1, +S2, Murmur - GI/Abdominal Exam GI & Abdominal Exam: Soft, Normal Bowel Sounds. absent: Distended, Firm, Rigid , Tenderness, Mass, Organomegaly, Rebound Additional comments: + ileostomy bag in RLQ - Extremities Exam Extremities Exam: Normal Inspection. absent: Calf Tenderness, Pedal Edema - Back Exam Back Exam: NORMAL INSPECTION. absent: CVA tenderness (L), CVA tenderness (R) - Neurological Exam Neurological Exam: Alert, Awake, Oriented x3 Neuro motor strength exam: Left Upper Extremity: 5, Right Upper Extremity: 5, Left Lower Extremity: 4, Right Lower Extremity: 4 Additional comments: + sensation intact. Left big toe, amputated, covered in dressing - Psychiatric Exam Psychiatric exam: Normal Affect, Normal Mood - Skin Skin Exam: Dry, Normal Color, Warm Assessment and Plan - Assessment and Plan (Free Text) Assessment: 73 year old male with PMH AAA repair, CAD s/p CABG, chronic ataxia, colectomy s/ p ischemic colitis, ckd stage 4, cardiomyopathy, CHF (EF 33% on 04/2017), pacemaker and DM, admitted for difficulty ambulating likely multifactorial ( peripheral neuropathy, left foot wound/amputation, right hip OA). Physical therapy recommends TCU, awaiting insurance authorization: Difficulty ambulating: -Pelvis, knee, bilateral ankle xrays are negative. -Hip CT shows markedly severe degenerative changes of right hip. Discussed with patient and , states that she is aware and does not want hip replacement. -IV Morphine 2 q6 prn pain -Physical therapy: TCU -Podiatry consulted. appreciate recs. f/u would culture. Rash: - noted under breasts - Nystatin hx of DM: -Home medications held. -A1c 6.5 on 01/2018 -ISS. -Accu checks ACHS -Mod consistent carb diet. hx of CHF: -ASA -Metoprolol -Intake and output Leukocytosis -mild 11.5 today -UA shows mild infection. Patient asymptomatic. -monitor PPX -Protonix -SCD's Dispo: awaiting insurance authorization to go to TCU Case seen and discussed with Dr Parada. Marycarmen Hanks, PGY1 <Gerry Parada - Last Filed: 04/28/18 11:08> Objective - Vital Signs/Intake and Output Vital Signs (last 24 hours): Temp Pulse Resp BP Pulse Ox 99 F 91 H 20 128/76 96 04/28/18 08:22 04/28/18 08:22 04/28/18 08:22 04/28/18 09:53 04/28/18 08:22 Intake and Output: 04/28/18 04/28/18 06:59 18:59 Intake Total 660 Output Total 300 Balance 360 - Medications Medications: Current Medications Ascorbic Acid (Vitamin C 500 Mg Tab) 500 mg PO DAILY [facility] Last Admin: 04/28/18 09:54 Dose: 500 mg Aspirin (Ecotrin) 81 mg PO DAILY [facility] Last Admin: 04/28/18 09:53 Dose: 81 mg Cholecalciferol (Vitamin D) 1,000 intlu PO DAILY [facility] Last Admin: 04/28/18 09:54 Dose: 1,000 intlu Cyanocobalamin (Vitamin B12 1000 Mcg Tab) 1,000 mcg PO BID [facility] Last Admin: 04/28/18 09:54 Dose: 1,000 mcg Furosemide (Lasix) 40 mg PO BID [facility] Last Admin: 04/28/18 09:53 Dose: 40 mg Insulin Human Regular (Humulin R Low) 0 units SC ACHS [facility] PRN Reason: Protocol Last Admin: 04/28/18 08:07 Dose: 2 units Isosorbide Dinitrate (Isordil) 60 mg PO DAILY [facility] Last Admin: 04/28/18 09:53 Dose: 60 mg Metolazone (Zaroxolyn) 2.5 mg PO DAILY [facility] Last Admin: 04/28/18 09:54 Dose: 2.5 mg Metoprolol Tartrate (Lopressor) 100 mg PO BRKDIN [facility] Last Admin: 04/28/18 08:09 Dose: 100 mg Morphine Sulfate (Morphine) 2 mg IVP Q6 [facility] Nystatin (Nystop Topical Powder) 1 gm TOP BID [facility] Pantoprazole Sodium (Protonix Ec Tab) 40 mg PO 0600 [facility] Last Admin: 04/28/18 05:22 Dose: 40 mg Primidone (Mysoline) 50 mg PO HS [facility] Last Admin: 04/27/18 21:55 Dose: 50 mg - Labs Labs: 04/28/18 05:15 04/28/18 05:15 Attending/Attestation - Attestation I have personally seen and examined this patient.: Yes I have fully participated in the care of the patient.: Yes I have reviewed all pertinent clinical information, including history, physical exam and plan: Yes Notes (Text): 04/28/18 11:05 Attending note; Patient seen and examined with resident. Patient is a 73 year old male with PMH AAA repair, CAD s/p CABG, chronic ataxia , colectomy s/p ischemic colitis, ckd stage , cardiomyopathy, CHF (EF 33% on 2016), pacemaker and DM, admitted for difficulty and fall. X-rays negative so far. Patient has significant degenerative right hip disease. Refused surgery/ orthopedic consultation. Patient has recent toe amputation with clear margin. Currently walking with the shoe. Continue local wound care of the left toe. Patient is afebrile and nontoxic. Wound culture sent. Podiatry evaluation appreciated. dressing done. chronic kidney disease; creatinine is stable at 1.9-2. gait instability; physical therapy evaluation appreciated. TCU recommended. evaluation requested. Pending authorization. Possible transfer to TCU tomorrow. Upon discharge patient will follow-up with PMD .
[2018-04-28] MEDS: Nystatin 100,000 Units/gm Topical Pow(15 gm) TOP SCH ×2 (10:30→17:38)
[2018-04-28] MEDS: Morphine 2 mg/ml ISec IVP SCH ×3 (11:57→23:30)
[2018-04-28 13:21] LABS: URINE BILIRUBIN NEGATIVE (NEGATIVE); URINE BLOOD SMALL (NEGATIVE); URINE GLUCOSE (UA) 100 mg/dL (NEGATIVE); URINE LEUKOCYTE ESTERASE MODERATE Leu/uL (NEGATIVE); URINE PROTEIN 100 mg/dL (<30 mg/dL); URINE UROBILINOGEN 0.2 E.U./dL (<1 E.U./dL)
[2018-04-28 13:22] LABS: URINE APPEARANCE CLEAR (CLEAR); URINE COLOR YELLOW (YELLOW)
[2018-04-28 13:24] LABS: URINE BACTERIA LARGE (NEG)
[2018-04-28 13:25] LABS: URINE AMORPHOUS SEDIMENT FEW; URINE WBC 25 - 30 /hpf (0-6)
[2018-04-29] MEDS: Morphine 2 mg/ml ISec IVP SCH ×2 (05:54→12:46)
[2018-04-29] MEDS: Pantoprazole 40 mg EC Tab PO SCH (05:55)
[2018-04-29 07:21] VITALS: RESP 20
[2018-04-29 07:37] LABS: BASO # 0.02 K/mm3 (0.0-2.0); BASO % 0.2 % (0.0-3.0); EOS # 0.4 (0.0-0.7); EOS % 4.3 % (1.5-5.0); GRAN # 7.29 (1.4-6.5); GRAN % 74.2 % (50.0-68.0); LYMPH # 1.3 (1.2-3.4); LYMPH % 12.9 % (22.0-35.0); MEAN CELL VOLUME 96.9 fl (80.0-105.0); MEAN CORPUSCULAR HEMOGLOBIN 31.1 pg (25.0-35.0); MEAN CORPUSCULAR HGB CONC 32.1 g/dl (31.0-37.0); MEAN PLATELET VOLUME 10.3 fl (7.0-11.0); MONO # 0.8 (0.1-0.6); MONO % 8.4 % (1.0-6.0); RBC 3.22 10^6/uL (3.5-6.1); RED CELL DISTRIBUTION WIDTH 13.2 % (11.5-14.5); WHITE BLOOD COUNT 9.8 10^3/ul (4.5-11.0)
[2018-04-29 07:44] LABS: ALBUMIN 2.9 g/dL (3.0-4.8)
[2018-04-29] MEDS: Insulin Reg-LOW-Coverage SC SCH ×3 (08:15→16:15)
--- NOTE | 2018-04-29 08:49 | CP.PCM.PN ---
Subjective - Date & Time of Evaluation Date of Evaluation: 04/29/18 Time of Evaluation: 08:41 - Subjective Subjective: Podiatry Progress Note - Dr. Vinnie Cortés 73 y/o female patient seen and evaluated at bedside this morning with attending Dr. Cortés for left foot sub 1st met head ulceration. Patient resting comfortably in bed in NAD. No acute events overnight. Dressing to left foot remains clean/dry/intact. She denies having any pain to the left foot. States her pain and discomfort is in her legs. Denies N/V/F/D/C/SOB/BLANCO/dizziness. Objective - Vital Signs/Intake and Output Vital Signs (last 24 hours): Temp Pulse Resp BP Pulse Ox 98.8 F 85 20 131/80 96 04/29/18 07:20 04/29/18 07:20 04/29/18 07:20 04/29/18 07:20 04/29/18 07:20 Intake and Output: 04/29/18 04/29/18 06:59 18:59 Intake Total 620 Output Total 450 Balance 170 - Medications Medications: Current Medications Ascorbic Acid (Vitamin C 500 Mg Tab) 500 mg PO DAILY [facility] Last Admin: 04/28/18 09:54 Dose: 500 mg Aspirin (Ecotrin) 81 mg PO DAILY [facility] Last Admin: 04/28/18 09:53 Dose: 81 mg Cholecalciferol (Vitamin D) 1,000 intlu PO DAILY [facility] Last Admin: 04/28/18 09:54 Dose: 1,000 intlu Cyanocobalamin (Vitamin B12 1000 Mcg Tab) 1,000 mcg PO BID [facility] Last Admin: 04/28/18 17:37 Dose: 1,000 mcg Furosemide (Lasix) 40 mg PO BID [facility] Last Admin: 04/28/18 17:36 Dose: 40 mg Insulin Human Regular (Humulin R Low) 0 units SC [facility] PRN Reason: Protocol Last Admin: 04/29/18 08:15 Dose: 2 units Isosorbide Dinitrate (Isordil) 60 mg PO DAILY [facility] Last Admin: 04/28/18 09:53 Dose: 60 mg Metolazone (Zaroxolyn) 2.5 mg PO DAILY [facility] Last Admin: 04/28/18 09:54 Dose: 2.5 mg Metoprolol Tartrate (Lopressor) 100 mg PO BRKDIN [facility] Last Admin: 04/28/18 17:36 Dose: 100 mg Morphine Sulfate (Morphine) 2 mg IVP Q6 [facility] Last Admin: 04/29/18 05:54 Dose: 2 mg Nystatin (Nystop Topical Powder) 1 gm TOP BID [facility] Last Admin: 04/28/18 17:38 Dose: 1 applic Pantoprazole Sodium (Protonix Ec Tab) 40 mg PO 0600 [facility] Last Admin: 04/29/18 05:55 Dose: 40 mg Primidone (Mysoline) 50 mg PO HS [facility] Last Admin: 04/28/18 22:32 Dose: 50 mg - Labs Labs: 04/29/18 06:00 04/29/18 06:00 - Constitutional Appears: Well, Non-toxic, No Acute Distress - Extremities Exam Additional comments: Left LE focused exam: Vascular: DP 1/4, PT 1/4. Cap refill <3 seconds to all digits. Pedal hair growth absent. Temperature gradient warm to cool. No edema noted to leg. Neuro: Gross sensation intact. Protective sensation diminished. Derm: Left plantar submetatarsal head 1 wound measuring 0.9cm x0.8cm x 0.2 cm. Wound bed is fibrogranular in nature. Erika-wound (-) for erythema or maceration. Mild hyperkeratotic skin formation noted to wound borders. Minimal serous drainage noted on prior dressing. No purulence. No signs of ascending cellulitis. No clinical signs of active infection. Hemosiderin deposits with hyperpigmentation noted to anterior leg. Second digit amputation site healed with no open lesions noted. Ortho: Partial hallux amputation noted. Second digit amputation. MMT 5/5. No tenderness to palpation to plantar hallux wound. - Neurological Exam Neurological Exam: Alert, Awake, Oriented x3 - Psychiatric Exam Psychiatric exam: Normal Affect, Normal Mood Assessment and Plan - Assessment and Plan (Free Text) Assessment: 73 y/o female patient with left foot sub 1st met head ulceration Plan: Patient seen and evaluated at bedside with attending, Dr. Vinnie Cortés Bilateral foot and ankle x-rays show no remarkable findings Podiatry to continue with local wound care Wound cleaned with saline and dressed with Maxorb and Optifoam Wound cx left foot prelim shows growth of gram + cocci Continue PT/OT Podiatry will continue to follow
[2018-04-29] MEDS: metOLazone 2.5 MG TAB PO SCH (10:14)
[2018-04-29] MEDS: Cholecalciferol 1,000 INTLU TAB PO SCH (10:15)
[2018-04-29] MEDS: Nystatin 100,000 Units/gm Topical Pow(15 gm) TOP SCH (10:16)
--- NOTE | 2018-04-29 12:27 | CP.PCM.DIS ---
Provider - Provider Date of Admission: 04/26/18 12:03 Attending physician: Gerry Parada MD Time Spent in preparation of Discharge (in minutes): 45 Hospital Course - Lab Results Lab Results: Micro Results 04/28/18 13:00 Urine,Clean Catch Urine Culture - Preliminary Gram Positive Cocci 04/27/18 14:29 Foot - Left Gram Stain - Final 04/27/18 14:29 Foot - Left Wound Culture - Final Enterococcus Faecalis Most Recent Lab Values WBC 9.8 10^3/ul (4.5-11.0) 04/29/18 06:00 RBC 3.22 10^6/uL (3.5-6.1) L 04/29/18 06:00 Hgb 10.0 g/dL (12.0-16.0) L 04/29/18 06:00 Hct 31.2 % (36.0-48.0) L 04/29/18 06:00 MCV 96.9 fl (80.0-105.0) 04/29/18 06:00 MCH 31.1 pg (25.0-35.0) 04/29/18 06:00 MCHC 32.1 g/dl (31.0-37.0) 04/29/18 06:00 RDW 13.2 % (11.5-14.5) 04/29/18 06:00 Plt Count 183 10^3/uL (120.0-450.0) 04/29/18 06:00 MPV 10.3 fl (7.0-11.0) 04/29/18 06:00 Gran % 74.2 % (50.0-68.0) H 04/29/18 06:00 Lymph % (Auto) 12.9 % (22.0-35.0) L 04/29/18 06:00 Cobb % (Auto) 8.4 % (1.0-6.0) H 04/29/18 06:00 Eos % (Auto) 4.3 % (1.5-5.0) 04/29/18 06:00 Baso % (Auto) 0.2 % (0.0-3.0) 04/29/18 06:00 Gran # 7.29 (1.4-6.5) H 04/29/18 06:00 Lymph # (Auto) 1.3 (1.2-3.4) 04/29/18 06:00 Cobb # (Auto) 0.8 (0.1-0.6) H 04/29/18 06:00 Eos # (Auto) 0.4 (0.0-0.7) 04/29/18 06:00 Baso # (Auto) 0.02 K/mm3 (0.0-2.0) 04/29/18 06:00 Sodium 132 mmol/L (132-148) 04/29/18 06:00 Potassium 4.1 mmol/L (3.6-5.0) 04/29/18 06:00 Chloride 97 mmol/L (98-107) L 04/29/18 06:00 Carbon Dioxide 27 mmol/L (21-33) 04/29/18 06:00 Anion Gap 13 (10-20) 04/29/18 06:00 BUN 47 mg/dL (7-21) H 04/29/18 06:00 Creatinine 2.1 mg/dl (0.7-1.2) H 04/29/18 06:00 Est GFR ( Amer) 28 04/29/18 06:00 Est GFR (Non-Af Amer) 23 04/29/18 06:00 POC Glucose (mg/dL) 294 mg/dL (65-110) H 04/29/18 11:17 Random Glucose 237 mg/dL (70-110) H 04/29/18 06:00 Hemoglobin A1c 6.1 % (4.2-6.5) 04/26/18 12:30 Calcium 8.0 mg/dL (8.4-10.5) L 04/29/18 06:00 Phosphorus 3.7 mg/dL (2.5-4.5) 04/26/18 05:00 Magnesium 1.5 mg/dL (1.7-2.2) L 04/26/18 05:00 Total Bilirubin 0.5 mg/dL (0.2-1.3) 04/29/18 06:00 AST 22 U/L (14-36) 04/29/18 06:00 ALT 18 U/L (7-56) 04/29/18 06:00 Alkaline Phosphatase 87 U/L (38-126) 04/29/18 06:00 Total Protein 5.9 g/dL (5.8-8.3) 04/29/18 06:00 Albumin 2.9 g/dL (3.0-4.8) L 04/29/18 06:00 Globulin 2.9 gm/dL 04/29/18 06:00 Albumin/Globulin Ratio 1.0 (1.1-1.8) L 04/29/18 06:00 Urine Color Yellow (YELLOW) 04/28/18 13:00 Urine Appearance Clear (CLEAR) 04/28/18 13:00 Urine pH 6.0 (4.7-8.0) 04/28/18 13:00 Ur Specific [place] 1.025 (1.005-1.035) 04/28/18 13:00 Urine Protein 100 mg/dL (<30 mg/dL) H 04/28/18 13:00 Urine Glucose (UA) 100 mg/dL (NEGATIVE) H 04/28/18 13:00 Urine Ketones Negative mg/dL (NEGATIVE) 04/28/18 13:00 Urine Blood Small (NEGATIVE) H 04/28/18 13:00 Urine Nitrate Negative (NEGATIVE) 04/28/18 13:00 Urine Bilirubin Negative (NEGATIVE) 04/28/18 13:00 Urine Urobilinogen 0.2 E.U./dL (<1 E.U./dL) 04/28/18 13:00 Ur Leukocyte Esterase Moderate [place]/uL (NEGATIVE) H 04/28/18 13:00 Urine RBC 10 - 15 /hpf (0-2) 04/28/18 13:00 Urine WBC 25 - 30 /hpf (0-6) 04/28/18 13:00 Ur Epithelial Cells 4 - 5 /hpf (0-5) 04/28/18 13:00 Amorphous Sediment Few 04/28/18 13:00 Urine Bacteria Large (NEG) 04/28/18 13:00 Urine Other Uyeast 04/28/18 13:00 - Hospital Course Hospital Course: Patient is a 73 year old female with a past medical history of aaa repair, colectomy, ckd stage 4, cap s/p CABG, cardiomyopathy, CHF, pacemaker, DM, who comes in today complaining of difficulty walking. With the use of physical examination, labwork, and imaging the patient was treated for her difficulty in ambulating along with her chronic medical conditions. During her hospital stay, the patient was seen by podiatry (Dr. Cortés). Whose recommendations were appreciated in the management of this patient. Podiatry recommended local wound care and continue with physical therapy. During the course of her stay, the patient underwent x-rays of the foot, ankle, knees, and hips. Patient also underwent hip CT and EKG which were utilized in the management of her care. EKG showed sinus rhythm with premature atrial complexes, left ventricular hypertrophy with repolarization abnormality, and marked ST abnormality consistent with ischemia. Foot and ankle xrays were negative for fractures or acute changes. Knee xray showed degenerative changes to both knees with the left greater than the right with bilateral joint effusions on the left slightly larger than the right.Hip xray showed significant degenerative osteoarthritis of the right hip. CT of the hip also showed severe degenerative changes of the right hip. Patient is now medically stable for transfer to the TCU. Discharge Exam - Head Exam Head Exam: ATRAUMATIC, NORMOCEPHALIC Discharge Plan - Follow Up Plan Condition: FAIR Disposition: TRANSF TO SNF Instructions: Skin Abrasions, Chronic Kidney Disease, Weakness (GEN) Additional Instructions: You have been discharged from [facility]. You will be going to TRCU your pmd will follow you there. Referrals: Vinnie Cortés DPM [Staff Provider] -
--- NOTE | 2018-04-29 15:18 | CARD ---
APPROVED REPORT EKG Measurement Heart [id number] <Conclusion> Sinus rhythm with premature atrial complexes Left ventricular hypertrophy with repolarization abnormality Marked ST abnormality c/w ischemia IMI, age unknown Mildly prolonged QTc
[2018-04-29 15:50] VITALS: BP 132/69; PULSE 76; TEMP 98.6; O2SAT 94
== END 2018-04-29 16:56 | DRG 554 ==
LOC: ED 17:05 → ERH 19:55 → 5RNO 22:40 → OBSVTOIN 04-26 12:03 → 5RSO 04-26 18:03
PROVIDERS: ADMIT Internal Medicine; ATTEND Internal Medicine
DX: M16.11 Unilateral primary osteoarthritis, right hip (principal); N18.4 Chronic kidney disease, stage 4 (severe); I42.9 Cardiomyopathy, unspecified; I25.10 Atherosclerotic heart disease of native coronary artery without angina pectoris; E11.22 Type 2 diabetes mellitus with diabetic chronic kidney disease; I50.9 Heart failure, unspecified; R21 Rash and other nonspecific skin eruption; R27.0 Ataxia, unspecified; L97.529 Non-pressure chronic ulcer of other part of left foot with unspecified severity; E11.621 Type 2 diabetes mellitus with foot ulcer; S80.211A Abrasion, right knee, initial encounter; S80.212A Abrasion, left knee, initial encounter; W19.XXXA Unspecified fall, initial encounter; Y92.009 Unspecified place in unspecified non-institutional (private) residence as the place of occurrence of the external cause; Z86.79 Personal history of other diseases of the circulatory system; Z95.1 Presence of aortocoronary bypass graft; Z95.0 Presence of cardiac pacemaker; Z90.49 Acquired absence of other specified parts of digestive tract; Z87.891 Personal history of nicotine dependence

== ENCOUNTER 2018-04-29 17:00 | Inpatient (IN) | payer OTHER, MEDICARE ==
[2018-04-29] MEDS: Morphine 2 mg/ml ISec IVP SCH (19:28)
[2018-04-29] MEDS: Insulin Reg-LOW-Coverage SC SCH (22:46)
[2018-04-30] MEDS: Morphine 2 mg/ml ISec IVP SCH ×3 (00:06→13:33)
[2018-04-30] MEDS: Pantoprazole 40 mg EC Tab PO SCH (05:41)
[2018-04-30] MEDS: Insulin Reg-LOW-Coverage SC SCH ×4 (06:41→22:21)
[2018-04-30] MEDS: Nystatin 100,000 Units/gm Topical Pow(15 gm) TOP SCH ×2 (10:10→18:11)
[2018-04-30] MEDS: Cholecalciferol 1,000 INTLU TAB PO SCH (10:10)
[2018-04-30] MEDS: metOLazone 2.5 MG TAB PO SCH (10:11)
[2018-04-30] MEDS ORDERED: Bacitracin 500 Units/gm Oint Foilpak UD TOP SCH (10:45)
--- NOTE | 2018-04-30 11:50 | CP.PCM.CON ---
History of Present Illness - History of Present Illness History of Present Illness: Podiatry Consult Note - Dr. Ginger Cortés 73 yo female with PMHx of CAD s/p CABG, cardiomyopathy, CHF s/p pacemaker placement, DM type 2, CKD stage 4, AAA s/p repair, colectomy seen in TCU this afternoon regarding left foot ulceration sub met 1. Pt is known to Dr. Cortés's service and was recently followed while in house at [facility] for lower extremity weakness and gait dysfunction. Pt denies any pain to the foot at the ulceration site. States her legs are uncomfortable but she plans on doing her best to participate in physical therapy. Denies any other pedal complaints. Denies F/C/N/V/CP/SOB Past Patient History - Infectious Disease Hx of Infectious Diseases: None - Tetanus Immunizations Tetanus Immunization: Unknown - Past Social History Smoking Status: Former Smoker - CARDIAC Hx Pacemaker: Yes - PULMONARY Hx Respiratory Disorders: No - NEUROLOGICAL Hx Neurological Disorder: No - HEENT Hx Cataracts: Yes (bilateral laser sx) - RENAL Hx Chronic Kidney Disease: Yes - ENDOCRINE/METABOLIC Hx Diabetes Mellitus Type 2: Yes - HEMATOLOGICAL/ONCOLOGICAL Hx Blood Transfusions: No Hx Blood Transfusion Reaction: No - INTEGUMENTARY Other/Comment: STage 3 sacral ulcers. BLE redness w/ scattered scabs. Under breasts folds redness. Bilateral under belly Folds redness skin excoriated - MUSCULOSKELETAL/RHEUMATOLOGICAL Hx Arthritis: Yes - GASTROINTESTINAL Hx Gastrointestinal Disorders: Yes (umbilical hernia) Hx Ileostomy: Yes - GENITOURINARY/GYNECOLOGICAL Hx Reproductive Disorders: Yes - PSYCHIATRIC Hx Psychophysiologic Disorder: No Hx Substance Use: No - SURGICAL HISTORY Hx Amputation: Yes (left foot 2nd digit) - ANESTHESIA Hx Anesthesia: Yes Hx Anesthesia Reactions: No Hx Malignant Hyperthermia: No Meds Allergies/Adverse Reactions: Allergies Allergy/AdvReac Type Severity Reaction Status Date / Time doxycycline Allergy ANAPHYLAXIS Verified 04/29/18 21:11 shellfish derived Allergy ANAPHYLAXIS Verified 04/29/18 21:11 - Medications Medications: Current Medications Ascorbic Acid (Vitamin C 500 Mg Tab) 500 mg PO DAILY MADHAVI PRN Reason: Protocol Last Admin: 04/30/18 10:10 Dose: 500 mg Aspirin (Ecotrin) 81 mg PO 0800 MADHAVI PRN Reason: Protocol Last Admin: 04/30/18 08:10 Dose: 81 mg Bacitracin (Bacitracin) 1 ea TOP BID MADHAVI PRN Reason: Protocol Bacitracin (Bacitracin) 1 gm TOP DAILY MADHAVI Cholecalciferol (Vitamin D) 1,000 intlu PO DAILY MADHAVI PRN Reason: Protocol Last Admin: 04/30/18 10:10 Dose: 1,000 intlu Ciprofloxacin (Cipro) 500 mg PO Q18H MADHAVI PRN Reason: Protocol Stop: 04/30/18 18:24 Last Admin: 04/29/18 21:45 Dose: 500 mg Cyanocobalamin (Vitamin B12 1000 Mcg Tab) 1,000 mcg PO DAILY MADHAVI PRN Reason: Protocol Last Admin: 04/30/18 10:11 Dose: 1,000 mcg Furosemide (Lasix) 40 mg PO 0600,1800 MADHAVI PRN Reason: Protocol Last Admin: 04/30/18 05:40 Dose: 40 mg Insulin Human Regular (Humulin R Low) 0 units SC ACHS MADHAVI PRN Reason: Protocol Last Admin: 04/30/18 06:41 Dose: 2 unit Isosorbide Dinitrate (Isordil) 60 mg PO 0600 MADHAVI PRN Reason: Protocol Last Admin: 04/30/18 05:41 Dose: 60 mg Metolazone (Zaroxolyn) 2.5 mg PO DAILY MADHAVI PRN Reason: Protocol Last Admin: 04/30/18 10:11 Dose: 2.5 mg Metoprolol Tartrate (Lopressor) 100 mg PO 0800,1800 MADHAVI PRN Reason: Protocol Last Admin: 04/30/18 08:10 Dose: 100 mg Morphine Sulfate (Morphine) 2 mg IVP Q6H MADHAVI Last Admin: 04/30/18 05:41 Dose: 2 mg Nystatin (Nystop Topical Powder) 0 gm TOP BID MADHAVI PRN Reason: Protocol Last Admin: 04/30/18 10:10 Dose: 1 applic Pantoprazole Sodium (Protonix Ec Tab) 40 mg PO 0600 MADHAVI PRN Reason: Protocol Last Admin: 04/30/18 05:41 Dose: 40 mg Primidone (Mysoline) 50 mg PO HS MADHAVI PRN Reason: Protocol Last Admin: 04/29/18 21:46 Dose: 50 mg Physical Exam - Constitutional Appears: Well, Non-toxic, No Acute Distress - Extremities Exam Additional comments: Left LE focused exam: Vascular: DP 1/4, PT 1/4. CFT <3 seconds to all digits. Pedal hair growth absent. Temperature gradient warm to cool. No edema noted to leg. Neuro: Gross sensation intact. Protective sensation diminished. Derm: Left plantar submetatarsal head 1 wound measuring 0.9cm x0.8cm x 0.2 cm. Wound bed is fibrogranular in nature. Erika-wound (-) for erythema or maceration. Mild hyperkeratotic skin formation noted to wound borders. Minimal serous drainage noted on prior dressing. No purulence. No signs of ascending cellulitis. No clinical signs of active infection. Hemosiderin deposits with hyperpigmentation noted to anterior leg. Second digit amputation site healed with no open lesions noted. Ortho: Partial hallux amputation noted. Second digit amputation. MMT 5/5. No tenderness to palpation to plantar hallux wound. - Neurological Exam Neurological exam: Alert, Oriented x3 - Psychiatric Exam Psychiatric exam: Normal Affect, Normal Mood Results - Vital Signs Recent Vital Signs: Last Vital Signs Temp 98.4 F 04/30/18 10:00 Pulse 78 04/30/18 10:46 Resp 18 04/30/18 10:00 BP 114/70 04/30/18 10:00 Pulse Ox 96 04/30/18 10:00 - Labs Labs: Laboratory Results - last 24 hr 04/29/18 04/30/18 22:12 04:36 POC Glucose (mg/dL) 213 H 206 H Assessment & Plan - Assessment and Plan (Free Text) Assessment: 73 y/o female patient with left foot sub 1st met head ulceration Plan: Patient seen and evaluated at bedside in TCU Discussed with attending, Dr. Vinnie Cortés Bilateral foot and ankle x-rays show no remarkable findings Wound cleaned with saline and dressed with Maxorb and Optifoam Wound cx left foot - Enterococcus faecalis Continue abx- Ciprofloxacin Podiatry to continue with local wound care Continue PT/OT in TCU Podiatry will continue to follow patient
[2018-04-30] MEDS: Bacitracin Ointment 30 GM TUBE TOP SCH (12:17)
[2018-04-30] MEDS ORDERED: Morphine 2 mg/ml ISec IVP PRN (13:51)
--- NOTE | 2018-04-30 15:08 | CP.PCM.HP ---
<Javier Boyce - Last Filed: 04/30/18 15:01> History of Present Illness - History of Present Illness History of Present Illness: Patient is a 73 year old female with a past medical history of aaa repair, colectomy s/p iscemic colitis, Chronic Kidney Disease stage 4, Coronary artery disease s/p CABG, cardiomyopathy, Congestive heart failure with pacemaker, Diabetes mellitus type 2. Patient was admitted to [facility] for difficulty in ambulating on 04/25/2018. The patient states she was walking up the stairs of her apartment when mid-way to the top she felt her knees buckled and she fell hitting her head. She reports having to climb the remainder of the stairs on her hands and feet to reach the top. She denies any chest pain, palpitations, lightheadedness, dizziness, headache, syncopal episodes, fevers, chills, or any other complaints. PMD: Dr. Walters Acid Operator: Dr. Vidales Present on Admission - Present on Admission Any Indicators Present on Admission: No History of DVT/PE: No History of Uncontrolled Diabetes: No Urinary Catheter: No Decubitus Ulcer Present: No History Surgical Site Infection Following: None Review of Systems - Constitutional Constitutional: absent: Anorexia, Chills, Frequent Falls, Headache, Weight Gain , Weight Loss - EENT Eyes: absent: Blurred Vision, Change in Vision Ears: absent: Decreased Hearing, Ear Pain Nose/Mouth/Throat: absent: Nasal Congestion, Nasal Discharge - Breasts Breasts: Skin Changes, Other (Rash area under breasts) - Cardiovascular Cardiovascular: Leg Edema. absent: Chest Pain, Irregular Heart Rhythm - Respiratory Respiratory: absent: Cough, Dyspnea, Wheezing - Genitourinary Genitourinary: absent: Dysuria, Flank Pain - Musculoskeletal Musculoskeletal: Abnormal Gait (Patient has trouble ambulating), Deformity ( Left foot second digit s/p amputation) - Integumentary Integumentary: Pruritus, Rash (Skin underneath the breast) - Neurological Neurological: Abnormal Gait. absent: Dizziness, Headaches - Psychiatric Psychiatric: absent: Confusion, Depression - Endocrine Endocrine: absent: Fatigue, Palpitations - Hematologic/Lymphatic Hematologic: absent: Easy Bleeding, Easy Bruising Past Patient History - Infectious Disease Hx of Infectious Diseases: None - Tetanus Immunizations Tetanus Immunization: Unknown - Past Medical History & Family History Past Medical History?: Yes - Past Social History Smoking Status: Former Smoker Drugs: Denies Home Situation {Lives}: With Family Domestic Violence: Negative - CARDIAC Hx Cardiac Disorders: Yes (CAD s/p CABG) Hx Pacemaker: Yes - PULMONARY Hx Respiratory Disorders: No - NEUROLOGICAL Hx Neurological Disorder: No - HEENT Hx Cataracts: Yes (bilateral laser sx) - RENAL Hx Chronic Kidney Disease: Yes - ENDOCRINE/METABOLIC Hx Diabetes Mellitus Type 2: Yes - HEMATOLOGICAL/ONCOLOGICAL Hx Blood Transfusions: No Hx Blood Transfusion Reaction: No - INTEGUMENTARY Other/Comment: STage 3 sacral ulcers. BLE redness w/ scattered scabs. Under breasts folds redness. Bilateral under belly Folds redness skin excoriated - MUSCULOSKELETAL/RHEUMATOLOGICAL Hx Arthritis: Yes - GASTROINTESTINAL Hx Gastrointestinal Disorders: Yes (umbilical hernia) Hx Ileostomy: Yes (s/p ischemic colitis) - GENITOURINARY/GYNECOLOGICAL Hx Reproductive Disorders: No - PSYCHIATRIC Hx Psychophysiologic Disorder: No Hx Substance Use: No - SURGICAL HISTORY Hx Abdominal Aortic Aneurysm Repair: Yes Hx Amputation: Yes (left foot 2nd digit) Hx Coronary Artery Bypass Graft: Yes Hx Eye Surgery: Yes (Cataracts laser) - ANESTHESIA Hx Anesthesia: Yes Hx Anesthesia Reactions: No Hx Malignant Hyperthermia: No Meds Allergies/Adverse Reactions: Allergies Allergy/AdvReac Type Severity Reaction Status Date / Time doxycycline Allergy ANAPHYLAXIS Verified 04/29/18 21:11 shellfish derived Allergy ANAPHYLAXIS Verified 04/29/18 21:11 Physical Exam - Constitutional Appears: Well, No Acute Distress - Head Exam Head Exam: ATRAUMATIC, NORMAL INSPECTION, NORMOCEPHALIC - Eye Exam Eye Exam: Normal appearance - ENT Exam ENT Exam: Mucous Membranes Moist - Respiratory Exam Respiratory Exam: Clear to Auscultation Bilateral, NORMAL BREATHING PATTERN - Cardiovascular Exam Cardiovascular Exam: REGULAR RHYTHM, +S1, +S2 - GI/Abdominal Exam GI & Abdominal Exam: Normal Bowel Sounds, Soft - Rectal Exam Rectal Exam: Deferred - Extremities Exam Extremities exam: Negative for: normal inspection (left second toe s/p amputation, wound dressing left big toe) - Neurological Exam Neurological exam: Abnormal Gait, Alert, Oriented x3 - Psychiatric Exam Psychiatric exam: Normal Affect, Normal Mood - Skin Skin Exam: Dry, Warm Results - Vital Signs Recent Vital Signs: Last Vital Signs Temp 98.4 F 04/30/18 10:00 Pulse 78 04/30/18 10:46 Resp 18 04/30/18 10:00 BP 114/70 04/30/18 10:00 Pulse Ox 96 04/30/18 10:00 - Labs Labs: Laboratory Results - last 24 hr 04/29/18 04/30/18 04/30/18 22:12 04:36 11:50 POC Glucose (mg/dL) 213 H 206 H 281 H Assessment & Plan - Assessment and Plan (Free Text) Assessment: 73 year old female with a past medical history of AAA repair, colectomy s/p ischemic colitis, CKD stage 4, CAD s/p CABG, cardiomyopathy, CHF, pacemaker and DM who is being admitted for difficulty ambulating. 1. Difficulty ambulating/walking -Pelvis and knee xray are negative. -Hip CT showed severe degenerative changes on the right. Patient is aware and declined hip replacement surgery. -IV Morphine PRN for pain medication 2. UTI -UA: Leukocyte esterase is positive, bacteria and yeast present. -Urine culture: Gram positive cocci -Patient is on Ciprofloxacin 500mg BID 3. Wound on left toe -Regular dressing changes -continue to monitor 4. Hx of DM -Home medications held. -ISS. -Accu checks ACHS -Mod consistent carb diet. 5. Hx of CHF -ASA 81mg -Metoprolol -Intake and output - Date & Time Date: 04/30/18 Time: 15:26 <Melissa Shaver - Last Filed: 05/01/18 14:46> Results - Vital Signs Recent Vital Signs: Last Vital Signs Temp 97.9 F 05/01/18 06:00 Pulse 83 05/01/18 08:23 Resp 20 05/01/18 06:00 BP 156/85 H 05/01/18 08:23 Pulse Ox 95 05/01/18 06:00 - Labs Labs: Laboratory Results - last 24 hr 04/30/18 04/30/18 05/01/18 17:21 21:42 04:46 POC Glucose (mg/dL) 300 H 306 H 324 H 05/01/18 11:04 POC Glucose (mg/dL) 352 H Attending/Attestation - Attestation I have personally seen and examined this patient.: Yes I have fully participated in the care of the patient.: Yes I have reviewed all pertinent clinical information: Yes Notes (Text): Patient seen and examined by me at 9:45 AM 04/30/18 with resident at bedside. Case including physical assessment and plan discussed in detail with resident. Agree with above with following additions/changes. Patient was admitted to the hospital 04/26/2018 for gait instability. Patient had x-rays of the knees done which showed bilateral DJD with left being worse than the right as well as bilateral joint effusions. Pelvic x-ray showed significant degenerative osteoarthritis of the right hip joint. CT of the hips showed markedly severe degenerative changes of the right hip. Patient did not want to see orthopedics and does not want any intervention done for this. This was discussed in detail with the patient. Patient also had bilateral knee abrasions. Patient also had a left metatarsal head ulcer of the left foot. She was followed by podiatry. Patient was seen by physical therapy. Rehabilitation was recommended. Patient was transferred to rehabilitation. Patient seen in TCU. Patient states that she is feeling pretty good. Roe of right hip pain and bilateral knee pain. States she is, however, doing well and physical therapy. She states that she is ambulating with physical therapy. She denies any chest pain or shortness of breath. No nausea vomiting or abdominal pain. No dysuria. No diarrhea or constipation. Physical exam: Gen: Patient is awake and alert sitting up in chair in no acute distress HEENT: Normocephalic atraumatic. extraocular muscles intact. Pupils equal and reactive. Pharynx is pink and moist. No pharyngeal erythema or exudate appreciated. Neck is supple. Pulmonary: Normal respiratory effort No rhonchi, rales or wheezing appreciated. Cardiovascular: Normal rhythm. Normal S1 and S2. No murmurs or gallops appreciated. Gastrointestinal: Soft, nontender, nondistended. Positive bowel sounds all 4 quadrants. No guarding. No masses appreciated. Musculoskeletal: Moves all extremities. No calf tenderness. No CVA tenderness. Central nervous system: AAO 3 Dermatologic: Skin warm and dry, positive healing left metatarsal head ulcer of left foot, positive bilateral healing knee abrasions Assessment and plan: Patient is a 73-year-old female with past medical history significant for ischemic cardiomyopathy, chronic systolic CHF, coronary artery disease status post CABG, type 2 diabetes, and chronic kidney disease that presented with gait instability. Patient was seen by physical therapy who recommended TCU. Patient has severe degenerative changes of the right hip as well as bilateral knee DJD. She refuses any intervention. Patient to continue physical therapy. Ischemic cardiomyopathy, chronic systolic CHF, coronary artery disease, are stable. Continue with current medications. Patient is being followed by podiatry for left foot ulcer. Continue local wound care. Case was discussed with patient regarding current diagnosis and treatment
[2018-04-30] MEDS: Morphine 2 mg/2 mL syringe IVP PRN ×2 (15:47→23:39)
[2018-05-01] MEDS: Pantoprazole 40 mg EC Tab PO SCH (05:36)
[2018-05-01] MEDS: Morphine 2 mg/2 mL syringe IVP PRN (05:40)
[2018-05-01] MEDS: Insulin Reg-LOW-Coverage SC SCH ×4 (06:39→21:28)
[2018-05-01] MEDS: Nystatin 100,000 Units/gm Topical Pow(15 gm) TOP SCH ×2 (10:50→18:23)
[2018-05-01] MEDS: Bacitracin Ointment 30 GM TUBE TOP SCH (11:04)
[2018-05-01] MEDS: Cholecalciferol 1,000 INTLU TAB PO SCH (11:06)
[2018-05-01] MEDS: metOLazone 2.5 MG TAB PO SCH (11:07)
--- NOTE | 2018-05-01 12:46 | CP.PCM.PN ---
Subjective - Date & Time of Evaluation Date of Evaluation: 05/01/18 Time of Evaluation: 12:43 - Subjective Subjective: Podiatry progress note for Dr Cortés, 73 yo female seen in TCU this morning regarding left foot ulceration sub met 1. Pt denies any pain to the foot at the ulceration site. Patient denies any acute overnight events. Dressing is noted to be clean, dry and intact. Denies any other pedal complaints. Denies F/C/N/V/CP/SOB Objective - Vital Signs/Intake and Output Vital Signs (last 24 hours): Temp Pulse Resp BP Pulse Ox 97.9 F 83 20 156/85 H 95 05/01/18 06:00 05/01/18 08:23 05/01/18 06:00 05/01/18 08:23 05/01/18 06:00 - Medications Medications: Current Medications Ascorbic Acid (Vitamin C 500 Mg Tab) 500 mg PO DAILY MADHAVI PRN Reason: Protocol Last Admin: 05/01/18 11:06 Dose: 500 mg Aspirin (Ecotrin) 81 mg PO 0800 MADHAVI PRN Reason: Protocol Last Admin: 05/01/18 08:19 Dose: 81 mg Bacitracin (Bacitracin) 1 gm TOP DAILY MADHAVI Last Admin: 05/01/18 11:04 Dose: 1 applic Cholecalciferol (Vitamin D) 1,000 intlu PO DAILY MADHAVI PRN Reason: Protocol Last Admin: 05/01/18 11:06 Dose: 1,000 intlu Cyanocobalamin (Vitamin B12 1000 Mcg Tab) 1,000 mcg PO DAILY MADHAVI PRN Reason: Protocol Last Admin: 05/01/18 11:06 Dose: 1,000 mcg Furosemide (Lasix) 40 mg PO 0600,1800 MADHAVI PRN Reason: Protocol Last Admin: 05/01/18 05:37 Dose: 40 mg Insulin Human Regular (Humulin R Low) 0 units SC ACHS MADHAVI PRN Reason: Protocol Last Admin: 05/01/18 12:22 Dose: 5 unit Isosorbide Dinitrate (Isordil) 60 mg PO 0600 MADHAVI PRN Reason: Protocol Last Admin: 05/01/18 05:37 Dose: 60 mg Metolazone (Zaroxolyn) 2.5 mg PO DAILY MADHAVI PRN Reason: Protocol Last Admin: 05/01/18 11:07 Dose: 2.5 mg Metoprolol Tartrate (Lopressor) 100 mg PO 0800,1800 MADHAVI PRN Reason: Protocol Last Admin: 05/01/18 08:23 Dose: 100 mg Nystatin (Nystop Topical Powder) 0 gm TOP BID MADHAVI PRN Reason: Protocol Last Admin: 05/01/18 10:50 Dose: 1 applic Oxycodone/Acetaminophen (Percocet 5/325 Mg Tab) 1 tab PO Q6H PRN PRN Reason: Pain, severe (8-10) Stop: 05/04/18 08:45 Pantoprazole Sodium (Protonix Ec Tab) 40 mg PO 0600 MADHAVI PRN Reason: Protocol Last Admin: 05/01/18 05:36 Dose: 40 mg Primidone (Mysoline) 50 mg PO HS MADHAVI PRN Reason: Protocol Last Admin: 04/30/18 21:14 Dose: 50 mg - Constitutional Appears: Well, Non-toxic, No Acute Distress - Head Exam Head Exam: ATRAUMATIC, NORMOCEPHALIC - Extremities Exam Additional comments: Left LE focused exam: Vascular: DP 1/4, PT 1/4. CFT <3 seconds to all digits. Pedal hair growth absent. Temperature gradient warm to cool. No edema noted to leg. Neuro: Protective sensation diminished. Derm: Left plantar submetatarsal head 1 wound measuring 0.9cm x0.8cm x 0.2 cm. Wound bed is fibrogranular in nature. Erika-wound (-) for erythema or maceration. Mild hyperkeratotic skin formation noted to wound borders. Minimal serous drainage noted on prior dressing. No purulence. No signs of ascending cellulitis. No clinical signs of active infection. Previous second digit amp noted Ortho: Partial hallux amputation noted. Second digit amputation. MMT 5/5. No tenderness to palpation to plantar hallux wound. - Neurological Exam Neurological Exam: Alert, Awake, Oriented x3 - Psychiatric Exam Psychiatric exam: Normal Affect, Normal Mood - Skin Skin Exam: Normal Color Assessment and Plan - Assessment and Plan (Free Text) Assessment: 73 y/o female patient with left foot sub 1st met head ulceration Plan: Plan: Patient seen and evaluated at bedside in TCU Discussed with attending, Dr. Vinnie Cortés Chart, labs and vitals reviewed; afebrile Bilateral foot and ankle x-rays show no remarkable findings Wound dressed with Maxorb and Optifoam Wound cx left foot - Enterococcus faecalis Continue abx- Ciprofloxacin Podiatry to continue with local wound care Continue PT/OT in TCU Podiatry will continue to follow patient
[2018-05-01] MEDS: Oxycodone/Acetaminophen 5/325 mg Tab PO PRN ×2 (15:31→23:24)
[2018-05-02] MEDS: Pantoprazole 40 mg EC Tab PO SCH (05:28)
[2018-05-02] MEDS: Oxycodone/Acetaminophen 5/325 mg Tab PO PRN ×3 (06:32→21:49)
[2018-05-02] MEDS: Insulin Reg-LOW-Coverage SC SCH ×4 (06:37→22:29)
--- NOTE | 2018-05-02 09:08 | CP.PCM.PN ---
<Javier Boyce - Last Filed: 05/02/18 16:39> Subjective - Date & Time of Evaluation Date of Evaluation: 05/02/18 Time of Evaluation: 13:22 - Subjective Subjective: Patient seen and examined at bedside. Patient has no complains at this time. Patient denies having any chest pain, shortness of breath, fevers, or chills. Objective - Vital Signs/Intake and Output Vital Signs (last 24 hours): Temp Pulse Resp BP Pulse Ox 98.3 F 69 18 145/79 98 05/01/18 16:00 05/01/18 16:00 05/01/18 16:00 05/02/18 08:24 05/01/18 16:00 - Medications Medications: Current Medications Ascorbic Acid (Vitamin C 500 Mg Tab) 500 mg PO DAILY MADHAVI PRN Reason: Protocol Last Admin: 05/01/18 11:06 Dose: 500 mg Aspirin (Ecotrin) 81 mg PO 0800 MADHAVI PRN Reason: Protocol Last Admin: 05/02/18 08:25 Dose: 81 mg Bacitracin (Bacitracin) 1 gm TOP DAILY MADHAVI Last Admin: 05/01/18 11:04 Dose: 1 applic Cholecalciferol (Vitamin D) 1,000 intlu PO DAILY MADHAVI PRN Reason: Protocol Last Admin: 05/01/18 11:06 Dose: 1,000 intlu Ciprofloxacin (Cipro) 500 mg PO Q12 MADHAVI PRN Reason: Protocol Stop: 05/02/18 13:29 Last Admin: 05/01/18 21:26 Dose: 500 mg Cyanocobalamin (Vitamin B12 1000 Mcg Tab) 1,000 mcg PO DAILY MADHAVI PRN Reason: Protocol Last Admin: 05/01/18 11:06 Dose: 1,000 mcg Furosemide (Lasix) 40 mg PO 0600,1800 MADHAVI PRN Reason: Protocol Last Admin: 05/02/18 05:28 Dose: 40 mg Insulin Human Regular (Humulin R Low) 0 units SC ACHS MADHAVI PRN Reason: Protocol Last Admin: 05/02/18 06:37 Dose: 2 unit Isosorbide Dinitrate (Isordil) 60 mg PO 0600 MADHAVI PRN Reason: Protocol Last Admin: 05/02/18 05:28 Dose: 60 mg Metolazone (Zaroxolyn) 2.5 mg PO DAILY MADHAVI PRN Reason: Protocol Last Admin: 05/01/18 11:07 Dose: 2.5 mg Metoprolol Tartrate (Lopressor) 100 mg PO 0800,1800 MADHAVI PRN Reason: Protocol Last Admin: 05/02/18 08:24 Dose: 100 mg Nystatin (Nystop Topical Powder) 0 gm TOP BID MADHAVI PRN Reason: Protocol Last Admin: 05/01/18 18:23 Dose: 1 applic Oxycodone/Acetaminophen (Percocet 5/325 Mg Tab) 1 tab PO Q6H PRN PRN Reason: Pain, severe (8-10) Stop: 05/04/18 08:45 Last Admin: 05/02/18 06:32 Dose: 1 tab Pantoprazole Sodium (Protonix Ec Tab) 40 mg PO 0600 MADHAVI PRN Reason: Protocol Last Admin: 05/02/18 05:28 Dose: 40 mg Primidone (Mysoline) 50 mg PO HS MADHAVI PRN Reason: Protocol Last Admin: 05/01/18 21:26 Dose: 50 mg - Head Exam Head Exam: ATRAUMATIC, NORMAL INSPECTION - Eye Exam Eye Exam: Normal appearance - ENT Exam ENT Exam: Mucous Membranes Moist - Respiratory Exam Respiratory Exam: Clear to Ausculation Bilateral, NORMAL BREATHING PATTERN - Cardiovascular Exam Cardiovascular Exam: REGULAR RHYTHM, +S1, +S2 - GI/Abdominal Exam GI & Abdominal Exam: Soft, Normal Bowel Sounds. absent: Tenderness - Extremities Exam Extremities Exam: absent: Calf Tenderness, Full ROM Additional comments: Left foot wound dressing Clean, dry, and intact - Neurological Exam Neurological Exam: Alert, Awake, Oriented x3 - Psychiatric Exam Psychiatric exam: Normal Affect, Normal Mood - Skin Skin Exam: Dry, Normal Color, Warm Assessment and Plan - Assessment and Plan (Free Text) Assessment: Assessment: 73 year old female with a past medical history of AAA repair, colectomy s/p ischemic colitis, CKD stage 4, CAD s/p CABG, cardiomyopathy, CHF, pacemaker and DM who is being admitted for difficulty ambulating and wound on the left foot. Plan: Difficulty ambulating - Pelvis and knee xray are negative. - Hip CT showed severe degenerative changes on the right. Patient is aware and declined hip replacement surgery. - V Morphine PRN for pain medication - Continue PT/OT in TCU UTI - UA: Leukocyte esterase is positive, bacteria and yeast present. - Urine culture: Gram positive cocci - Patient received her last dose of Ciprofloxacin 500mg today. - Patient does not show any urinary symptoms - Will repeat UA tomorrow Wound on left toe - Regular dressing changes - Podiatry is on board, recommendations appreciated - Wound cx left foot - Enterococcus faecalis Hx of DM - Home medications held. - Blood glucose levels have been in the 300's. - Start Insulin Nph (intermediate-acting) - Continue Insulin regular - Accu checks ACHS - Mod consistent carb diet. Hx of CHF - Continue ASA 81mg - Continue Metoprolol Patient seen with and planned approved by attending physician Dr. Shaver <Melissa Shaver R - Last Filed: 05/02/18 18:12> Objective - Vital Signs/Intake and Output Vital Signs (last 24 hours): Temp Pulse Resp BP Pulse Ox 98.6 F 75 18 149/76 96 05/02/18 16:00 05/02/18 16:00 05/02/18 16:00 05/02/18 16:00 05/02/18 16:00 - Medications Medications: Current Medications Ascorbic Acid (Vitamin C 500 Mg Tab) 500 mg PO DAILY MADHAVI PRN Reason: Protocol Last Admin: 05/02/18 09:58 Dose: 500 mg Aspirin (Ecotrin) 81 mg PO 0800 MADHAVI PRN Reason: Protocol Last Admin: 05/02/18 08:25 Dose: 81 mg Bacitracin (Bacitracin) 1 gm TOP DAILY MADHAVI Last Admin: 05/02/18 09:46 Dose: 1 applic Cholecalciferol (Vitamin D) 1,000 intlu PO DAILY MADHAVI PRN Reason: Protocol Last Admin: 05/02/18 09:47 Dose: 1,000 intlu Cyanocobalamin (Vitamin B12 1000 Mcg Tab) 1,000 mcg PO DAILY MADHAVI PRN Reason: Protocol Last Admin: 05/02/18 09:59 Dose: 1,000 mcg Furosemide (Lasix) 40 mg PO 0600,1800 MADHAVI PRN Reason: Protocol Last Admin: 05/02/18 05:28 Dose: 40 mg Insulin Human NPH (Humulin N) 6 units SC BID MADHAVI Last Admin: 05/02/18 17:38 Dose: 6 units Insulin Human Regular (Humulin R Low) 0 units SC ACHS MADHAVI PRN Reason: Protocol Last Admin: 05/02/18 17:39 Dose: 4 unit Isosorbide Dinitrate (Isordil) 60 mg PO 0600 MADHAVI PRN Reason: Protocol Last Admin: 05/02/18 05:28 Dose: 60 mg Metolazone (Zaroxolyn) 2.5 mg PO DAILY MADHAVI PRN Reason: Protocol Last Admin: 05/02/18 09:47 Dose: 2.5 mg Metoprolol Tartrate (Lopressor) 100 mg PO 0800,1800 MADHAVI PRN Reason: Protocol Last Admin: 05/02/18 08:24 Dose: 100 mg Nystatin (Nystop Topical Powder) 0 gm TOP BID MADHAVI PRN Reason: Protocol Last Admin: 05/02/18 09:47 Dose: 1 applic Oxycodone/Acetaminophen (Percocet 5/325 Mg Tab) 1 tab PO Q6H PRN PRN Reason: Pain, severe (8-10) Stop: 05/04/18 08:45 Last Admin: 05/02/18 14:48 Dose: 1 tab Pantoprazole Sodium (Protonix Ec Tab) 40 mg PO 0600 MADHAVI PRN Reason: Protocol Last Admin: 05/02/18 05:28 Dose: 40 mg Primidone (Mysoline) 50 mg PO HS MADHAVI PRN Reason: Protocol Last Admin: 05/01/18 21:26 Dose: 50 mg Attending/Attestation - Attestation I have personally seen and examined this patient.: Yes I have fully participated in the care of the patient.: Yes I have reviewed all pertinent clinical information, including history, physical exam and plan: Yes Notes (Text): Patient seen and examined by me at 11:30AM with resident at bedside. Case including physical assessment and plan discussed in detail with resident. Agree with above with following additions/changes. Patient states she is doing pretty good. She states that she is doing well with physical therapy. Still has bilateral knee pain. Also with chronic right hip pain. States knee abrasions are improving. She denies any chest pain or shortness of breath. No nausea vomiting or abdominal pain. No dysuria. No diarrhea or constipation. No headaches or dizziness. No fevers or chills. Physical exam: Gen: Patient is awake and alert sitting up in bed in no acute distress HEENT: Normocephalic atraumatic. extraocular muscles intact. Pupils equal and reactive. Pharynx is pink and moist. No pharyngeal erythema or exudate appreciated. Neck is supple. Pulmonary: Normal respiratory effort No rhonchi, rales or wheezing appreciated. Cardiovascular: Normal rhythm. Normal S1 and S2. No murmurs or gallops appreciated. Gastrointestinal: Soft, nontender, nondistended. Positive bowel sounds all 4 quadrants. No guarding. No masses appreciated. Musculoskeletal: Moves all extremities. No calf tenderness. No CVA tenderness. Central nervous system: AAO 3 Dermatologic: Skin warm and dry, positive healing left metatarsal head ulcer of left foot, positive bilateral healing knee abrasions Assessment and plan: Patient is a 73-year-old female with past medical history significant for ischemic cardiomyopathy, chronic systolic CHF, coronary artery disease status post CABG, type 2 diabetes, and chronic kidney disease that presented with gait instability. Patient has severe degenerative changes of the right hip as well as bilateral knee DJD. Refusing any intervention. Continue physical therapy as tolerated. Ischemic cardiomyopathy, chronic systolic CHF, coronary artery disease, are stable. Continue with current medications. Continue local wound care for left diabetic foot ulcer. Podiatry following recommendations appreciated. Patient is status post debridement, postop day #1. Patient completed ciprofloxacin for Enterococcus faecalis UTI as well as Enterococcus faecalis positive wound culture. Patient with uncontrolled blood sugars. Patient restarted on her home insulin. Continue with insulin sliding scale. Monitor Accu-Cheks. Case was discussed in detail with patient regarding current diagnosis and treatment
[2018-05-02] MEDS: Bacitracin Ointment 30 GM TUBE TOP SCH (09:46)
[2018-05-02] MEDS: Nystatin 100,000 Units/gm Topical Pow(15 gm) TOP SCH ×2 (09:47→18:02)
[2018-05-02] MEDS: Cholecalciferol 1,000 INTLU TAB PO SCH (09:47)
[2018-05-02] MEDS: metOLazone 2.5 MG TAB PO SCH (09:47)
--- NOTE | 2018-05-02 11:42 | CP.PCM.PN ---
Subjective - Date & Time of Evaluation Date of Evaluation: 05/02/18 Time of Evaluation: 11:36 - Subjective Subjective: Podiatry Progress Note - Dr. Ginger Cortés 73 y/o female seen at bedside in TCU with attending Dr. Vinnie Cortés for left foot diabetic ulcer. Pt resting comfortably in bed in NAD. States she has been walking a lot with physical therapy and her legs are feeling much better. Continues to deny pain at ulcer site. States she has some pain in the toenails as they are long and press into her skin. Denies F/C/N/V/CP/SOB. Objective - Vital Signs/Intake and Output Vital Signs (last 24 hours): Temp Pulse Resp BP Pulse Ox 98.3 F 69 18 145/79 98 05/01/18 16:00 05/01/18 16:00 05/01/18 16:00 05/02/18 08:24 05/01/18 16:00 - Medications Medications: Current Medications Ascorbic Acid (Vitamin C 500 Mg Tab) 500 mg PO DAILY MADHAVI PRN Reason: Protocol Last Admin: 05/02/18 09:58 Dose: 500 mg Aspirin (Ecotrin) 81 mg PO 0800 MADHAVI PRN Reason: Protocol Last Admin: 05/02/18 08:25 Dose: 81 mg Bacitracin (Bacitracin) 1 gm TOP DAILY MADHAVI Last Admin: 05/02/18 09:46 Dose: 1 applic Cholecalciferol (Vitamin D) 1,000 intlu PO DAILY MADHAVI PRN Reason: Protocol Last Admin: 05/02/18 09:47 Dose: 1,000 intlu Cyanocobalamin (Vitamin B12 1000 Mcg Tab) 1,000 mcg PO DAILY MADHAVI PRN Reason: Protocol Last Admin: 05/02/18 09:59 Dose: 1,000 mcg Furosemide (Lasix) 40 mg PO 0600,1800 MADHAVI PRN Reason: Protocol Last Admin: 05/02/18 05:28 Dose: 40 mg Insulin Human Regular (Humulin R Low) 0 units SC ACHS MADHAVI PRN Reason: Protocol Last Admin: 05/02/18 06:37 Dose: 2 unit Isosorbide Dinitrate (Isordil) 60 mg PO 0600 MADHAVI PRN Reason: Protocol Last Admin: 05/02/18 05:28 Dose: 60 mg Metolazone (Zaroxolyn) 2.5 mg PO DAILY MADHAVI PRN Reason: Protocol Last Admin: 05/02/18 09:47 Dose: 2.5 mg Metoprolol Tartrate (Lopressor) 100 mg PO 0800,1800 MADHAVI PRN Reason: Protocol Last Admin: 05/02/18 08:24 Dose: 100 mg Nystatin (Nystop Topical Powder) 0 gm TOP BID MADHAVI PRN Reason: Protocol Last Admin: 05/02/18 09:47 Dose: 1 applic Oxycodone/Acetaminophen (Percocet 5/325 Mg Tab) 1 tab PO Q6H PRN PRN Reason: Pain, severe (8-10) Stop: 05/04/18 08:45 Last Admin: 05/02/18 06:32 Dose: 1 tab Pantoprazole Sodium (Protonix Ec Tab) 40 mg PO 0600 MADHAVI PRN Reason: Protocol Last Admin: 05/02/18 05:28 Dose: 40 mg Primidone (Mysoline) 50 mg PO HS MADHAVI PRN Reason: Protocol Last Admin: 05/01/18 21:26 Dose: 50 mg - Constitutional Appears: Well, Non-toxic, No Acute Distress - Extremities Exam Additional comments: LE focused exam: Vascular: DP 1/4, PT 1/4 B/L. CFT <3 seconds to all digits. Pedal hair growth absent. Temperature gradient warm to cool. No edema noted to leg. Neuro: Protective sensation diminished. Derm: Left plantar submetatarsal head 1 wound measuring 0.9cm x0.8cm x 0.2 cm. Wound bed is fibrogranular in nature. Erika-wound (-) for erythema or maceration. Mild hyperkeratotic skin formation noted to wound borders. Minimal serous drainage noted on prior dressing. No purulence. No signs of ascending cellulitis. No clinical signs of active infection. Thickened elongated toenails x 8 with subungual debris noted. Ortho: Partial left hallux amputation noted. Left second digit amputation.Tenderness to palpation of thickened toenails. Rigid hammertoe contractures are noted to all lesser digits of R foot and 3rd-5th digits of L foot. MMT 5/5. No tenderness to palpation to plantar hallux wound. - Neurological Exam Neurological Exam: Alert, Awake, Oriented x3 - Psychiatric Exam Psychiatric exam: Normal Affect, Normal Mood - Skin Skin Exam: Normal Color Assessment and Plan - Assessment and Plan (Free Text) Assessment: 73 y/o female patient with left foot sub 1st met head ulceration Plan: Plan: Patient seen and evaluated at bedside in TCU Discussed with attending, Dr. Vinnie Cortés Chart, labs and vitals reviewed; afebrile Bilateral foot and ankle x-rays show no remarkable findings Wound dressed with Maxorb and Optifoam Wound cx left foot - Enterococcus faecalis Continue abx- Ciprofloxacin Podiatry to continue with local wound care Continue PT/OT in TCU Podiatry will continue to follow patient - Neurological Exam Neurological Exam: Alert, Awake, Oriented x3 - Psychiatric Exam Psychiatric exam: Normal Affect, Normal Mood Assessment and Plan - Assessment and Plan (Free Text) Assessment: 73 y/o female patient with 1) left foot sub 1st met head ulceration and 2) painful tinea unguium to bilateral feet Plan: Patient seen and evaluated at bedside in TCU with attending, Dr. Vinnie Cortés Chart, labs and vitals reviewed; afebrile Bilateral foot and ankle x-rays show no remarkable findings Wound dressed with Maxorb and Optifoam Wound cx left foot - Enterococcus faecalis Podiatry to continue with local wound care Aseptic debridement of toenails x8 with sterile nippers and curette Pt tolerated procedure without incident Continue PT/OT in TCU Podiatry will continue to follow patient
[2018-05-02] MEDS: Insulin Human NPH 1 UNITS/0.01 ML SC SCH (17:38)
[2018-05-03] MEDS: Pantoprazole 40 mg EC Tab PO SCH (06:33)
[2018-05-03] MEDS: Oxycodone/Acetaminophen 5/325 mg Tab PO PRN ×3 (06:39→21:14)
[2018-05-03] MEDS: Insulin Reg-LOW-Coverage SC SCH ×4 (07:36→21:43)
--- NOTE | 2018-05-03 08:10 | PN ---
DATE: 05/02/2018 TIME OF PROGRESS NOTE: 0730 hours. LOCATION: The patient is in Transitional Care Unit, room 304, bed 1. SUBJECTIVE: This is a white female, insensate diabetic. The patient is well known to me over the years with multiple previous pedal history of diabetic ulceration and diabetic partial amputation. Currently struggling for the last six months with an off again and on again diabetic ulcer on the sole of the left foot under the stump of the first metatarsal head. She has progressed well recently with orthopedic shoes and orthopedic molds to offload the pressure area and the wound is near healing at the time that she ended up having a fall and admitted to the hospital and now in Transitional Unit for rehabilitation and gait training. Extensive medical history is reviewed with her including cardiac valvular history of aortic aneurysm and currently increasing orthopedic complaints of lower extremity adding to her relative gait weakness and high risk fall. OBJECTIVE: GENERAL: The patient is alert and oriented x3. In no acute distress, sitting in bed, preparing to have breakfast. VITAL SIGNS: Stable. EXTREMITIES: She has no complaints of lower extremity pain; as we speak, she admits to getting daily exercise and wearing her orthopedic shoe gear when doing so. She has weak pulses. The extremity is warm on both sides. There is no calf edema or calf tenderness. There is no foot edema. There is no evidence of erythema, heat, or cellulitis. There is no active discharge. The dressing on the sole of the left foot is removed and there is no significant discharge on the dressing. There is no malodor. There is hyperkeratosis in the area of the first metatarsal stump on the left foot with a small fissure-style residual dermal ulceration in the skin. No discharge. No sinus. No penetration. LABORATORY DATA: Prior x-rays are read as unremarkable. She does have hypertrophic and mycotic toenails and complaints of some discomfort with these currently. ASSESSMENT AND PLAN: The patient is currently medically stable and giving her active rehabilitation while in the Transitional Care Unit. The left foot ulceration is minimal and with no evidence of any infectious processes going on and appears to be responding to the local wound care and the orthopedic shoe use. The wound is redressed today with Optifoam and the patient is advised to maintain the local wound care even after discharge while in the TCU, will be performed by my resident. I see no indication from the respective for any antibiotic requirements for the patient and no limitations in her ability to gait train and muscle strengthen for fall prevention purposes and recommend that the therapy be continued and performed aggressively. I advised the patient that we will follow up next week to make a final predischarge assessment and follow up in the office for her local wound care. We will arrange for some diabetic foot care to be performed today or tomorrow with dressing changes. Vinnie Cortés DPM
--- NOTE | 2018-05-03 08:22 | CON ---
DATE: 05/02/2018 LOCATION: The patient is seen earlier this morning in room 304. CHIEF COMPLAINT: Left toe ulcer times several months. HISTORY OF PRESENT ILLNESS: This is a 73-year-old female known to me from previous admissions, history of coronary artery disease, history of abdominal aortic aneurysm with repair, history of diabetes mellitus. On last admission, the patient had pancreatitis secondary to doxycycline was given as an outpatient and chronic obstructive lung disease, congestive heart failure, cardiomyopathy, severe peripheral arterial disease. The patient had ischemic colitis in the past, renal disease, Clostridium bacteremia, who is now on Transitional Care and the patient had a foot ulcer that was being cared for Podiatry and Infectious Disease consultation was requested for antibiotic choice. REVIEW OF SYSTEMS: Reveals the patient has no fevers, no chills, no nausea. It has been there for months, has been followed by Dr. Cortés and has been managing foot. No chest pain, no shortness of breath. The patient is doing well. No abdominal pain or diarrhea. REVIEW OF SYSTEMS: A 12-point review of systems is performed. PAST MEDICAL HISTORY: Significant for diabetes mellitus, coronary artery disease, abdominal aortic aneurysm, pancreatitis, chronic congestive heart failure, cardiomyopathy, peripheral artery disease, ischemic colitis and Clostridium bacteremia, renal insufficiency and chronic left foot ulcer. PAST SURGICAL HISTORY: Significant for coronary artery bypass graft, abdominal aortic aneurysm repair, cholecystectomy, pacemaker, left toe amputation and colectomy. ALLERGIES: IT SHOULD BE LISTED THAT THE PATIENT IS ALLERGIC TO DOXYCYCLINE, IT IS NOT TRUE ALLERGY. SHE DEVELOPED PANCREATITIS FROM IT. MEDICATIONS AT HOME: Revealed propofol, Protonix, multivitamins, Lopressor, insulin, Ecotrin and furosemide. PHYSICAL EXAMINATION GENERAL: The patient is in bed, in no acute distress, answering questions appropriately. VITAL SIGNS: Temperature of 98, blood pressure is 140/70, pulse of 69, respiratory rate of 18. HEENT: Unremarkable. NECK: Supple. LUNGS: Have decreased breath sounds. HEART: Normal S1, S2. ABDOMEN: Soft, nontender. EXTREMITIES: Examination of the foot reveals the foot is clean with very small opening, no discharge, no erythema, no evidence of infection. LABORATORY DATA: Microbiology reveals the patient's foot culture had grown Enterococcus and urine culture also had grown Enterococcus. ASSESSMENT AND PLAN: A 73-year-old female who has a history of coronary artery disease, abdominal aortic aneurysm, diabetes, chronic obstructive lung disease, congestive heart failure, cardiomyopathy, peripheral artery disease, history of ischemic colitis, renal disease. Now, the patient also with a pacemaker and multiple surgeries including colectomy with left foot sub first metatarsal head ulceration, no evidence of infection with Enterococcus, probably not a pathogen and only a colonizer. We will discontinue the Cipro. No need for any antibiotics. This has been going on for some time and the patient did have a foot x-ray which has no evidence of osteomyelitis. By now it would have been positive since it has been going on for months. Soft tissue infection, no need for antibiotics, local wound care. We will follow with you. José Luis Trevino MD
[2018-05-03] MEDS: Bacitracin Ointment 30 GM TUBE TOP SCH (10:53)
[2018-05-03] MEDS: Insulin Human NPH 1 UNITS/0.01 ML SC SCH ×2 (10:53→17:28)
[2018-05-03] MEDS: metOLazone 2.5 MG TAB PO SCH (10:54)
[2018-05-03] MEDS: Cholecalciferol 1,000 INTLU TAB PO SCH (10:54)
[2018-05-03] MEDS: Nystatin 100,000 Units/gm Topical Pow(15 gm) TOP SCH ×2 (10:54→18:14)
--- NOTE | 2018-05-03 12:43 | CP.PCM.PN ---
Subjective - Date & Time of Evaluation Date of Evaluation: 05/03/18 Time of Evaluation: 12:41 - Subjective Subjective: Podiatry Progress Note - Dr. Ginger Cortés 73 y/o female seen at bedside in TCU for left foot diabetic ulcer. Pt resting comfortably in bedside chair today in NAD. Says her legs feel better and the walking has improved daily. Continues to deny pain at ulcer site. Denies F/C/N/V /CP/SOB. Objective - Vital Signs/Intake and Output Vital Signs (last 24 hours): Temp Pulse Resp BP Pulse Ox 97.5 F L 75 16 141/48 L 96 05/03/18 05:53 05/03/18 08:20 05/03/18 05:53 05/03/18 08:20 05/03/18 05:53 - Medications Medications: Current Medications Ascorbic Acid (Vitamin C 500 Mg Tab) 500 mg PO DAILY [facility] PRN Reason: Protocol Last Admin: 05/03/18 10:54 Dose: 500 mg Aspirin (Ecotrin) 81 mg PO 0800 [facility] PRN Reason: Protocol Last Admin: 05/03/18 08:19 Dose: 81 mg Bacitracin (Bacitracin) 1 gm TOP DAILY [facility] Last Admin: 05/03/18 10:53 Dose: 1 applic Cholecalciferol (Vitamin D) 1,000 intlu PO DAILY [facility] PRN Reason: Protocol Last Admin: 05/03/18 10:54 Dose: 1,000 intlu Cyanocobalamin (Vitamin B12 1000 Mcg Tab) 1,000 mcg PO DAILY [facility] PRN Reason: Protocol Last Admin: 05/03/18 10:54 Dose: 1,000 mcg Furosemide (Lasix) 40 mg PO 0600,1800 [facility] PRN Reason: Protocol Last Admin: 05/03/18 06:33 Dose: 40 mg Insulin Human NPH (Humulin N) 6 units SC BID [facility] Last Admin: 05/03/18 10:53 Dose: 6 units Insulin Human Regular (Humulin R Low) 0 units SC ACHS [facility] PRN Reason: Protocol Last Admin: 05/03/18 12:11 Dose: 5 unit Isosorbide Dinitrate (Isordil) 60 mg PO 0600 [facility] PRN Reason: Protocol Last Admin: 05/03/18 06:32 Dose: 60 mg Metolazone (Zaroxolyn) 2.5 mg PO DAILY [facility] PRN Reason: Protocol Last Admin: 05/03/18 10:54 Dose: 2.5 mg Metoprolol Tartrate (Lopressor) 100 mg PO 0800,1800 [facility] PRN Reason: Protocol Last Admin: 05/03/18 08:20 Dose: 100 mg Nystatin (Nystop Topical Powder) 0 gm TOP BID [facility] PRN Reason: Protocol Last Admin: 05/03/18 10:54 Dose: 1 applic Oxycodone/Acetaminophen (Percocet 5/325 Mg Tab) 1 tab PO Q6H PRN PRN Reason: Pain, severe (8-10) Stop: 05/04/18 08:45 Last Admin: 05/03/18 06:39 Dose: 1 tab Pantoprazole Sodium (Protonix Ec Tab) 40 mg PO 0600 [facility] PRN Reason: Protocol Last Admin: 05/03/18 06:33 Dose: 40 mg Primidone (Mysoline) 50 mg PO HS [facility] PRN Reason: Protocol Last Admin: 05/02/18 21:45 Dose: 50 mg - Constitutional Appears: Well, Non-toxic, No Acute Distress - Extremities Exam Additional comments: LE focused exam: Vascular: DP 1/4, PT 1/4 B/L. CFT <3 seconds to all digits. Pedal hair growth absent. Temperature gradient warm to cool. No edema noted to leg. Neuro: Protective sensation diminished. Derm: Left plantar submetatarsal head 1 wound measuring 0.7cm x0.7cm x 0.2 cm. Wound bed is fibrogranular in nature. Erika-wound (-) for erythema or maceration. Mild hyperkeratotic skin formation noted to wound borders. Minimal serous drainage noted on prior dressing. No purulence. No signs of ascending cellulitis. No clinical signs of active infection. Ortho: Partial left hallux amputation noted. Left second digit amputation. Rigid hammertoe contractures are noted to all lesser digits of R foot and 3rd- 5th digits of L foot. MMT 5/5. No tenderness to palpation to plantar hallux wound. - Neurological Exam Neurological Exam: Alert, Awake, Oriented x3 - Psychiatric Exam Psychiatric exam: Normal Affect, Normal Mood Assessment and Plan - Assessment and Plan (Free Text) Assessment: 73 y/o female patient with left foot sub 1st met head ulceration Plan: Patient seen and evaluated at bedside in TCU Discussed with attending, Dr. Vinnie Cortés Chart, labs and vitals reviewed; afebrile Bilateral foot and ankle x-rays show no remarkable findings Wound cx left foot - Enterococcus faecalis Continue abx- Ciprofloxacin Podiatry to continue with local wound care - wound cleaned with saline and dressed with Maxorb and Optifoam Continue PT/OT in TCU Podiatry will continue to follow patient
--- NOTE | 2018-05-03 23:49 | PN ---
DATE: 05/03/2018 SUBJECTIVE: The patient is in bed, in no acute distress. Seen early this morning in room 304. PHYSICAL EXAMINATION: VITAL SIGNS: Temperature is 98, blood pressure is 150/80, respiratory rate of 20. HEENT: Unremarkable. NECK: Supple. LUNGS: Decreased breath sounds. HEART: Normal S1, S2. ABDOMEN: Soft. LABORATORY EXAMINATION: Labs are reviewed. ASSESSMENT AND PLAN: A 73-year-old female with diabetes mellitus, coronary artery disease, abdominal aortic aneurysm, pancreatitis, chronic congestive heart failure, cardiomyopathy, peripheral arterial disease, ischemic colitis, history of Clostridium, bacteremia, renal insufficiency, chronic left foot ulcer with pacemaker and with a left foot sub first metatarsal head ulceration, no evidence of infection, off of antibiotics, Enterococcus Citrobacter not a pathogen of the foot. José Luis Trevino MD
[2018-05-04] MEDS: Oxycodone/Acetaminophen 5/325 mg Tab PO PRN ×4 (02:15→23:24)
[2018-05-04] MEDS: Pantoprazole 40 mg EC Tab PO SCH (06:02)
[2018-05-04] MEDS: Insulin Reg-LOW-Coverage SC SCH (06:31)
--- NOTE | 2018-05-04 07:52 | CP.PCM.PN ---
<Geneva Mckeon - Last Filed: 05/04/18 17:06> Subjective - Date & Time of Evaluation Date of Evaluation: 05/04/18 Time of Evaluation: 07:37 - Subjective Subjective: Geneva Mckeon D.O. PGY1 -- Nurseryperson -- Medicine Progress Note Patient was seen at bedside this morning. Per patient, she is doing well today. Patient reports itchy left knee, otherwise no complaints. Patient is tolerating PO diet, and ostomy is functioning properly with stool present. Patient says she was able to get out of bed with PT twice yesterday and was able to walk to the nursing station and back with resting in between. Patient denies chest pain , shortness of breath, abdominal pain, knee pain, muscle aches, fever, chills, dizziness, and/or nausea. Objective - Vital Signs/Intake and Output Vital Signs (last 24 hours): Temp Pulse Resp BP Pulse Ox 98 F 70 20 151/69 H 99 05/03/18 16:00 05/03/18 16:00 05/03/18 16:00 05/04/18 06:00 05/03/18 16:00 Intake and Output: 05/04/18 05/04/18 06:59 18:59 Intake Total 580 Output Total 1151 Balance -571 - Medications Medications: Current Medications Ascorbic Acid (Vitamin C 500 Mg Tab) 500 mg PO DAILY [facility]I PRN Reason: Protocol Last Admin: 05/03/18 10:54 Dose: 500 mg Aspirin (Ecotrin) 81 mg PO 0800 [facility] PRN Reason: Protocol Last Admin: 05/03/18 08:19 Dose: 81 mg Bacitracin (Bacitracin) 1 gm TOP DAILY [facility] Last Admin: 05/03/18 10:53 Dose: 1 applic Cholecalciferol (Vitamin D) 1,000 intlu PO DAILY [facility] PRN Reason: Protocol Last Admin: 05/03/18 10:54 Dose: 1,000 intlu Cyanocobalamin (Vitamin B12 1000 Mcg Tab) 1,000 mcg PO DAILY [facility] PRN Reason: Protocol Last Admin: 05/03/18 10:54 Dose: 1,000 mcg Furosemide (Lasix) 40 mg PO 0600,1800 [facility] PRN Reason: Protocol Last Admin: 05/04/18 06:00 Dose: 40 mg Insulin Human NPH (Humulin N) 6 units SC BID [facility] Last Admin: 05/03/18 17:28 Dose: 6 units Insulin Human Regular (Humulin R Med) 0 units SC ACHS [facility] PRN Reason: Protocol Isosorbide Dinitrate (Isordil) 60 mg PO 0600 [facility] PRN Reason: Protocol Last Admin: 05/04/18 06:00 Dose: 60 mg Metolazone (Zaroxolyn) 2.5 mg PO DAILY [facility] PRN Reason: Protocol Last Admin: 05/03/18 10:54 Dose: 2.5 mg Metoprolol Tartrate (Lopressor) 100 mg PO 0800,1800 [facility] PRN Reason: Protocol Last Admin: 05/03/18 18:13 Dose: 100 mg Nystatin (Nystop Topical Powder) 0 gm TOP BID [facility] PRN Reason: Protocol Last Admin: 05/03/18 18:14 Dose: 1 applic Oxycodone/Acetaminophen (Percocet 5/325 Mg Tab) 1 tab PO Q6H PRN PRN Reason: Pain, severe (8-10) Stop: 05/04/18 08:45 Last Admin: 05/04/18 02:15 Dose: 1 tab Pantoprazole Sodium (Protonix Ec Tab) 40 mg PO 0600 [facility] PRN Reason: Protocol Last Admin: 05/04/18 06:02 Dose: 40 mg Primidone (Mysoline) 50 mg PO HS [facility] PRN Reason: Protocol Last Admin: 05/03/18 21:14 Dose: 50 mg - Constitutional Appears: Well, Non-toxic, No Acute Distress - Head Exam Head Exam: ATRAUMATIC, NORMAL INSPECTION, NORMOCEPHALIC - Eye Exam Eye Exam: EOMI, Normal appearance Pupil Exam: NORMAL ACCOMODATION - ENT Exam ENT Exam: Mucous Membranes Moist, Normal Exam - Neck Exam Neck Exam: Full ROM, Normal Inspection - Respiratory Exam Respiratory Exam: Clear to Ausculation Bilateral, NORMAL BREATHING PATTERN. absent: Accessory Muscle Use, Chest Wall Tenderness, Decreased Breath Sounds, Rhonchi, Wheezes, Respiratory Distress - Cardiovascular Exam Cardiovascular Exam: REGULAR RHYTHM. absent: Bradycardia, Tachycardia, Gallop, Rubs, Murmur - GI/Abdominal Exam GI & Abdominal Exam: Soft, Normal Bowel Sounds. absent: Distended, Firm, Guarding, Tenderness, Hypoactive Bowel Sounds Additional comments: ostomy is properly placed and is functioning properly. - Extremities Exam Extremities Exam: Full ROM, Normal Capillary Refill, Normal Inspection Additional comments: bilateral knees with dressing and with mild saturation with serosanguineous output. wound on left toe with dressing. - Back Exam Back Exam: NORMAL INSPECTION. absent: muscle spasm - Neurological Exam Neurological Exam: Alert, Awake, CN II-XII Intact, Normal Gait, Oriented x3 - Psychiatric Exam Psychiatric exam: Normal Affect, Normal Mood - Skin Skin Exam: Dry, Intact, Normal Color, Warm Assessment and Plan - Assessment and Plan (Free Text) Assessment: 73 year old female with a past medical history of abdominal aortic aneurysm repair, colectomy status post ischemic colitis, chronic kidney disease stage 4, coronary artery disease status post coronary artery bypass grafting, cardiomyopathy, congestive heart failure, pacemaker and diabetes mellitus who was admitted for difficulty ambulating and wound on the left foot. Patient now in TCU for rehab. Assessment and Plan: Difficulty ambulating, improved Continue PT/OT Pelvis and knee xray are negative Hip CT showed severe degenerative changes on the right. Patient is aware and declined hip replacement surgery Percocet 5/325 PRN for severe pain Wound on left toe, improved Regular dressing changes Podiatry is on board, recommendations appreciated Wound culture left foot - Enterococcus faecalis Urinary tract infection, resolved Patient was treated with Cipro for 5 days Currently asymptomatic Urine analysis: Leukocyte esterase is positive, bacteria and yeast present Urine culture: Gram positive cocci History of Diabetes Mellitus, POC Glucose today: 169 Insulin sliding scale changed from low to medium POC glucose on 7: 356 Start Insulin NPH Continue insulin regular Accu checks before eating and before bedtime Mod consistent carb diet History of Congestive Heart Failure Continue ASA 81mg Continue Metoprolol Monitor Patient seen with and case discussed in detail with Attending Physician Christine Vora D.O. -- Nurseryperson PGY1 <Melissa Shaver R - Last Filed: 05/04/18 20:32> Objective - Vital Signs/Intake and Output Vital Signs (last 24 hours): Temp Pulse Resp BP Pulse Ox 97.7 F 65 18 132/66 100 05/04/18 16:00 05/04/18 17:19 05/04/18 16:00 05/04/18 17:19 05/04/18 16:12 - Medications Medications: Current Medications Ascorbic Acid (Vitamin C 500 Mg Tab) 500 mg PO DAILY [facility] PRN Reason: Protocol Last Admin: 05/04/18 10:22 Dose: 500 mg Aspirin (Ecotrin) 81 mg PO 0800 [facility] PRN Reason: Protocol Last Admin: 05/04/18 07:49 Dose: 81 mg Bacitracin (Bacitracin) 1 gm TOP DAILY [facility] Last Admin: 05/04/18 10:21 Dose: 1 applic Cholecalciferol (Vitamin D) 1,000 intlu PO DAILY [facility] PRN Reason: Protocol Last Admin: 05/04/18 10:22 Dose: 1,000 intlu Cyanocobalamin (Vitamin B12 1000 Mcg Tab) 1,000 mcg PO DAILY [facility] PRN Reason: Protocol Last Admin: 05/04/18 10:22 Dose: 1,000 mcg Furosemide (Lasix) 40 mg PO 0600,1800 [facility] PRN Reason: Protocol Last Admin: 05/04/18 17:19 Dose: 40 mg Insulin Human NPH (Humulin N) 6 units SC BID [facility] Last Admin: 05/04/18 17:20 Dose: 6 units Insulin Human Regular (Humulin R Med) 0 units SC ACHS [facility] PRN Reason: Protocol Last Admin: 05/04/18 17:13 Dose: Not Given Isosorbide Dinitrate (Isordil) 60 mg PO 0600 [facility] PRN Reason: Protocol Last Admin: 05/04/18 06:00 Dose: 60 mg Metolazone (Zaroxolyn) 2.5 mg PO DAILY [facility] PRN Reason: Protocol Last Admin: 05/04/18 10:22 Dose: 2.5 mg Metoprolol Tartrate (Lopressor) 100 mg PO 0800,1800 [facility] PRN Reason: Protocol Last Admin: 05/04/18 17:19 Dose: 100 mg Nystatin (Nystop Topical Powder) 0 gm TOP BID [facility] PRN Reason: Protocol Last Admin: 05/04/18 17:20 Dose: 1 applic Oxycodone/Acetaminophen (Percocet 5/325 Mg Tab) 1 tab PO Q6H PRN PRN Reason: Pain, severe (8-10) Stop: 05/07/18 10:37 Last Admin: 05/04/18 17:30 Dose: 1 tab Pantoprazole Sodium (Protonix Ec Tab) 40 mg PO 0600 [facility] PRN Reason: Protocol Last Admin: 05/04/18 06:02 Dose: 40 mg Primidone (Mysoline) 50 mg PO HS [facility] PRN Reason: Protocol Last Admin: 05/03/18 21:14 Dose: 50 mg Attending/Attestation - Attestation I have personally seen and examined this patient.: Yes I have fully participated in the care of the patient.: Yes I have reviewed all pertinent clinical information, including history, physical exam and plan: Yes Notes (Text): Patient seen and examined by me at 12:35PM with resident at bedside. Case including physical assessment and plan discussed in detail with resident. Agree with above with following additions/changes. Patient states she is doing well. Complains of itching at left knee abrasion site. Patient states knee pain has improved. Right hip pain is stable. States she takes pain medications when pain is severe. She denies any chest pain or shortness of breath. No nausea vomiting or abdominal pain. No dysuria. No diarrhea or constipation. No headaches or dizziness. No fevers or chills. Physical exam: Gen: Patient is awake and alert sitting up in bed in no acute distress HEENT: Normocephalic atraumatic. extraocular muscles intact. Pupils equal and reactive. Pharynx is pink and moist. No pharyngeal erythema or exudate appreciated. Neck is supple. Pulmonary: Normal respiratory effort No rhonchi, rales or wheezing appreciated. Cardiovascular: Normal rhythm. Normal S1 and S2. No murmurs or gallops appreciated. Gastrointestinal: Soft, nontender, nondistended. Positive bowel sounds all 4 quadrants. No guarding. No masses appreciated. Musculoskeletal: Moves all extremities. No calf tenderness. No CVA tenderness. Central nervous system: AAO 3 Dermatologic: Skin warm and dry, positive healing left metatarsal head ulcer of left foot, positive bilateral healing knee abrasions Assessment and plan: Patient is a 73-year-old female with past medical history significant for ischemic cardiomyopathy, chronic systolic CHF, coronary artery disease status post CABG, type 2 diabetes, and chronic kidney disease that presented with gait instability likely secondary to severe degenerative changes of the right hip as well as bilateral knee DJD. Continues to refuse any intervention. Continue physical therapy as tolerated. Ischemic cardiomyopathy, chronic systolic CHF, coronary artery disease, are stable, no acute issues. Continue with current medications. Continue local wound care for left diabetic foot ulcer. Podiatry following recommendations appreciated. Patient is status post debridement, postop day #2. Patient completed ciprofloxacin for Enterococcus faecalis UTI. Enterococcus faecalis positive wound culture unlikely true positive per ID. ID following, recommendations appreciated. Blood sugars better controlled. Continue with home insulin. Continue with insulin sliding scale. Continue to monitor Accu-Cheks. Case was discussed in detail with patient and biomedical field service engineer regarding current diagnosis and treatment
--- NOTE | 2018-05-04 08:17 | PN ---
DATE: 05/04/2018 SUBJECTIVE: The patient is in bed, in no acute distress. PHYSICAL EXAMINATION: VITAL SIGNS: Temperature is 98, blood pressure is 150/60, respiratory rate of 20, heart rate of 70. HEENT: Examination of HEENT is unremarkable. NECK: Supple. LUNGS: Have decreased breath sounds. HEART: Normal S1 and S2. ABDOMEN: Soft. LABORATORY DATA: Laboratory examination is noted. ASSESSMENT AND PLAN: A 73-year-old female with diabetes, coronary artery disease, abdominal aortic aneurysm, pancreatitis, congestive heart failure, cardiomyopathy, peripheral arterial disease, ischemic colitis, history of Clostridium bacteremia, renal insufficiency, chronic left foot ulcer, pacemaker with a left foot first metatarsal head ulceration. No evidence of infection. She is currently off of antibiotics. The Enterococcus is cultured. Enterococcus is most likely not a pathogen. Review of orders reveals the patient is off of antibiotics. José Luis Trevino MD
[2018-05-04] MEDS: Bacitracin Ointment 30 GM TUBE TOP SCH (10:21)
[2018-05-04] MEDS: Nystatin 100,000 Units/gm Topical Pow(15 gm) TOP SCH ×2 (10:21→17:20)
[2018-05-04] MEDS: Cholecalciferol 1,000 INTLU TAB PO SCH (10:22)
[2018-05-04] MEDS: metOLazone 2.5 MG TAB PO SCH (10:22)
[2018-05-04] MEDS: Insulin Human NPH 1 UNITS/0.01 ML SC SCH ×2 (10:24→17:20)
--- NOTE | 2018-05-04 11:22 | CP.PCM.PN ---
Subjective - Date & Time of Evaluation Date of Evaluation: 05/04/18 Time of Evaluation: 11:18 - Subjective Subjective: Podiatry progress note for Dr. Cortés 73 y/o female seen at bedside in TCU resting comfortably for left foot diabetic ulcer. Pt NAD and AAOx3. Says her legs feel better and the walking has improved daily. Continues to deny pain at ulcer site. Denies F/C/N/V/CP/SOB/posterior calf pain. Denies new pedal complaints. Objective - Vital Signs/Intake and Output Vital Signs (last 24 hours): Temp Pulse Resp BP Pulse Ox 98.1 F 72 20 129/82 97 05/04/18 10:00 05/04/18 10:00 05/04/18 10:00 05/04/18 10:00 05/04/18 10:00 Intake and Output: 05/04/18 05/04/18 06:59 18:59 Intake Total 580 Output Total 1151 Balance -571 - Medications Medications: Current Medications Ascorbic Acid (Vitamin C 500 Mg Tab) 500 mg PO DAILY [facility] PRN Reason: Protocol Last Admin: 05/04/18 10:22 Dose: 500 mg Aspirin (Ecotrin) 81 mg PO 0800 [facility] PRN Reason: Protocol Last Admin: 05/04/18 07:49 Dose: 81 mg Bacitracin (Bacitracin) 1 gm TOP DAILY [facility] Last Admin: 05/04/18 10:21 Dose: 1 applic Cholecalciferol (Vitamin D) 1,000 intlu PO DAILY [facility] PRN Reason: Protocol Last Admin: 05/04/18 10:22 Dose: 1,000 intlu Cyanocobalamin (Vitamin B12 1000 Mcg Tab) 1,000 mcg PO DAILY [facility] PRN Reason: Protocol Last Admin: 05/04/18 10:22 Dose: 1,000 mcg Furosemide (Lasix) 40 mg PO 0600,1800 [facility] PRN Reason: Protocol Last Admin: 05/04/18 06:00 Dose: 40 mg Insulin Human NPH (Humulin N) 6 units SC BID [facility] Last Admin: 05/04/18 10:24 Dose: 6 units Insulin Human Regular (Humulin R Med) 0 units SC ACHS [facility] PRN Reason: Protocol Isosorbide Dinitrate (Isordil) 60 mg PO 0600 [facility] PRN Reason: Protocol Last Admin: 05/04/18 06:00 Dose: 60 mg Metolazone (Zaroxolyn) 2.5 mg PO DAILY [facility] PRN Reason: Protocol Last Admin: 05/04/18 10:22 Dose: 2.5 mg Metoprolol Tartrate (Lopressor) 100 mg PO 0800,1800 [facility] PRN Reason: Protocol Last Admin: 05/04/18 07:58 Dose: 100 mg Nystatin (Nystop Topical Powder) 0 gm TOP BID [facility] PRN Reason: Protocol Last Admin: 05/04/18 10:21 Dose: 1 applic Oxycodone/Acetaminophen (Percocet 5/325 Mg Tab) 1 tab PO Q6H PRN PRN Reason: Pain, severe (8-10) Stop: 05/07/18 10:37 Last Admin: 05/04/18 10:59 Dose: 1 tab Pantoprazole Sodium (Protonix Ec Tab) 40 mg PO 0600 [facility] PRN Reason: Protocol Last Admin: 05/04/18 06:02 Dose: 40 mg Primidone (Mysoline) 50 mg PO HS [facility] PRN Reason: Protocol Last Admin: 05/03/18 21:14 Dose: 50 mg - Constitutional Appears: Well, Non-toxic, No Acute Distress - Head Exam Head Exam: ATRAUMATIC, NORMOCEPHALIC - Extremities Exam Additional comments: LE focused exam Vasc - DP 1/4, PT 1/4 B/L. CFT <3 seconds to all digits. Pedal hair growth absent. Temperature gradient warm to cool. No edema noted to leg. Neuro - Protective sensation diminished. Derm - Left plantar submetatarsal head 1 wound measuring 0.7cm x0.7cm x 0.2 cm. Wound bed is fibrogranular in nature. Erika-wound (-) for erythema or maceration. Mild hyperkeratotic skin formation noted to wound borders. Minimal serous drainage noted on prior dressing. No purulence. No signs of ascending cellulitis. No clinical signs of active infection. Ortho - Partial left hallux amputation noted. Left second digit amputation. Rigid hammertoe contractures are noted to all lesser digits of R foot and 3rd- 5th digits of L foot. MMT 5/5. No tenderness to palpation to plantar hallux wound. - Neurological Exam Neurological Exam: Alert, Awake, Oriented x3 - Psychiatric Exam Psychiatric exam: Normal Affect, Normal Mood Assessment and Plan - Assessment and Plan (Free Text) Assessment: 73 y/o female patient with left foot sub 1st met head ulceration Plan: Pt seen and examined Discussed in detail with attending Dr. Cortés Chart, labs and vitals reviewed; afebrile Bilateral foot and ankle x-rays show no remarkable findings Wound cx left foot - Enterococcus faecalis Continue abx- Ciprofloxacin Podiatry to continue with local wound care - wound cleaned with saline and dressed with Maxorb and Optifoam Continue PT/OT in TCU Podiatry will continue to follow patient
[2018-05-04] MEDS: Insulin Reg-MEDIUM-Coverage SC SCH ×3 (12:08→21:42)
[2018-05-05] MEDS: Pantoprazole 40 mg EC Tab PO SCH (06:11)
[2018-05-05] MEDS: Insulin Reg-MEDIUM-Coverage SC SCH ×4 (06:34→21:29)
[2018-05-05] MEDS: Oxycodone/Acetaminophen 5/325 mg Tab PO PRN ×3 (06:56→21:26)
[2018-05-05] MEDS: Bacitracin Ointment 30 GM TUBE TOP SCH (10:24)
[2018-05-05] MEDS: Insulin Human NPH 1 UNITS/0.01 ML SC SCH ×2 (10:24→17:28)
[2018-05-05] MEDS: Nystatin 100,000 Units/gm Topical Pow(15 gm) TOP SCH ×2 (10:25→17:29)
[2018-05-05] MEDS: Cholecalciferol 1,000 INTLU TAB PO SCH (10:25)
[2018-05-05] MEDS: metOLazone 2.5 MG TAB PO SCH (10:25)
--- NOTE | 2018-05-05 10:34 | CP.PCM.PN ---
Subjective - Date & Time of Evaluation Date of Evaluation: 05/05/18 Time of Evaluation: 10:30 - Subjective Subjective: Podiatry progress note for Dr. Cortés 73 y/o female seen at bedside in TCU resting comfortably for left foot diabetic ulcer. Pt NAD and AAOx3. Says her legs feel better and the walking has improved daily. States that her ankles were bothering her a little more than usual while at PT today. Continues to deny pain at ulcer site. Denies F/C/N/V/CP/SOB/ posterior calf pain. Denies new pedal complaints. Objective - Vital Signs/Intake and Output Vital Signs (last 24 hours): Temp Pulse Resp BP Pulse Ox 98.3 F 77 18 130/74 96 05/05/18 10:00 05/05/18 10:00 05/05/18 10:00 05/05/18 10:00 05/05/18 10:00 Intake and Output: 05/05/18 05/05/18 06:59 18:59 Intake Total 420 Output Total 600 Balance -180 - Medications Medications: Current Medications Ascorbic Acid (Vitamin C 500 Mg Tab) 500 mg PO DAILY MADHAVI PRN Reason: Protocol Last Admin: 05/05/18 10:25 Dose: 500 mg Aspirin (Ecotrin) 81 mg PO 0800 MADHAVI PRN Reason: Protocol Last Admin: 05/05/18 07:50 Dose: 81 mg Bacitracin (Bacitracin) 1 gm TOP DAILY MADHAVI Last Admin: 05/05/18 10:24 Dose: 1 applic Cholecalciferol (Vitamin D) 1,000 intlu PO DAILY MADHAVI PRN Reason: Protocol Last Admin: 05/05/18 10:25 Dose: 1,000 intlu Cyanocobalamin (Vitamin B12 1000 Mcg Tab) 1,000 mcg PO DAILY MADHAVI PRN Reason: Protocol Last Admin: 05/05/18 10:25 Dose: 1,000 mcg Furosemide (Lasix) 40 mg PO 0600,1800 MADHAVI PRN Reason: Protocol Last Admin: 05/05/18 06:11 Dose: 40 mg Insulin Human NPH (Humulin N) 6 units SC BID MADHAVI Last Admin: 05/05/18 10:24 Dose: 6 units Insulin Human Regular (Humulin R Med) 0 units SC ACHS MADHAVI PRN Reason: Protocol Last Admin: 05/05/18 06:34 Dose: 1 unit Isosorbide Dinitrate (Isordil) 60 mg PO 0600 MADHAVI PRN Reason: Protocol Last Admin: 05/05/18 06:11 Dose: 60 mg Metolazone (Zaroxolyn) 2.5 mg PO DAILY MADHAVI PRN Reason: Protocol Last Admin: 05/05/18 10:25 Dose: 2.5 mg Metoprolol Tartrate (Lopressor) 100 mg PO 0800,1800 MADHAVI PRN Reason: Protocol Last Admin: 05/05/18 07:50 Dose: 100 mg Nystatin (Nystop Topical Powder) 0 gm TOP BID MADHAVI PRN Reason: Protocol Last Admin: 05/05/18 10:25 Dose: 1 applic Oxycodone/Acetaminophen (Percocet 5/325 Mg Tab) 1 tab PO Q6H PRN PRN Reason: Pain, severe (8-10) Stop: 05/07/18 10:37 Last Admin: 05/05/18 06:56 Dose: 1 tab Pantoprazole Sodium (Protonix Ec Tab) 40 mg PO 0600 MADHAVI PRN Reason: Protocol Last Admin: 05/05/18 06:11 Dose: 40 mg Primidone (Mysoline) 50 mg PO HS MADHAVI PRN Reason: Protocol Last Admin: 05/04/18 21:16 Dose: 50 mg - Constitutional Appears: Well, Non-toxic, No Acute Distress - Head Exam Head Exam: ATRAUMATIC, NORMOCEPHALIC - Extremities Exam Additional comments: LE focused exam Vasc - DP 1/4, PT 1/4 B/L. CFT <3 seconds to all digits. Pedal hair growth absent. Temperature gradient warm to cool. No edema noted to leg. Neuro - Protective sensation diminished. Derm - Left plantar submetatarsal head 1 wound measuring 0.7cm x0.7cm x 0.2 cm. Wound bed is fibrogranular in nature. Erika-wound (-) for erythema or maceration. Mild hyperkeratotic skin formation noted to wound borders. Minimal serous drainage noted on prior dressing. No purulence. No signs of ascending cellulitis. No clinical signs of active infection. Ortho - Partial left hallux amputation noted. Left second digit amputation. Rigid hammertoe contractures are noted to all lesser digits of R foot and 3rd- 5th digits of L foot. MMT 5/5. No tenderness to palpation to plantar hallux wound. - Neurological Exam Neurological Exam: Alert, Awake, Oriented x3 - Psychiatric Exam Psychiatric exam: Normal Affect, Normal Mood Assessment and Plan - Assessment and Plan (Free Text) Assessment: 73 y/o female patient with left foot sub 1st met head ulceration Plan: Pt seen and examined Discussed in detail with attending Dr. Cortés Chart, labs and vitals reviewed; afebrile Bilateral foot and ankle x-rays show no remarkable findings Wound cx left foot - Enterococcus faecalis Podiatry to continue with local wound care - wound cleaned with saline and dressed with Maxorb and Optifoam Continue PT/OT in TCU Podiatry will continue to follow patient
--- NOTE | 2018-05-05 14:40 | PN ---
DATE: 05/05/2018 SUBJECTIVE: The patient is in 304, was seen in no acute distress, nontoxic. PHYSICAL EXAMINATION: VITAL SIGNS: On exam, temperature is 97, blood pressure is 136/70, respiratory rate of 18. HEENT: Examination of HEENT is unremarkable. NECK: Supple. LUNGS: Have decreased breath sounds. HEART: Normal S1, S2. ABDOMEN: Soft, nontender. LABORATORY DATA: Laboratory examination reveals as noted. ASSESSMENT AND PLAN: A 73-year-old female with diabetes mellitus, coronary artery disease, abdominal aortic aneurysm, pancreatitis, congestive heart failure, cardiomyopathy, peripheral arterial disease, ischemic colitis, history of Clostridium bacteremia, renal insufficiency, chronic left foot ulcer, pacemaker, left first metatarsal head ulceration. No evidence of infection. Currently, off of antibiotics and the patient is at risk for developing nosocomial infections. We will follow with you. José Luis Trevino MD
[2018-05-06] MEDS: Pantoprazole 40 mg EC Tab PO SCH (05:38)
[2018-05-06] MEDS: Oxycodone/Acetaminophen 5/325 mg Tab PO PRN ×3 (05:38→22:17)
[2018-05-06] MEDS: Insulin Reg-MEDIUM-Coverage SC SCH ×4 (06:33→22:15)
--- NOTE | 2018-05-06 07:34 | CP.PCM.PN ---
Subjective - Date & Time of Evaluation Date of Evaluation: 05/06/18 Time of Evaluation: 07:34 - Subjective Subjective: Podiatry Progress Note 73 y/o female seen and examined at bedside this morning with attending Dr. Cortés regarding left foot sub met 1 ulceration. Pt says she is walking well and working with physical therapy often while in rehab. Denies pain to the left foot or to either leg at this time. Dressings have remained clean dry and intact to her left foot. States she is walking with a surgical shoe for her left foot. Denies F/C/N/V/CP/SOB Objective - Vital Signs/Intake and Output Vital Signs (last 24 hours): Temp Pulse Resp BP Pulse Ox 98.5 F 75 20 138/73 95 05/06/18 06:00 05/06/18 06:00 05/06/18 06:00 05/06/18 06:00 05/06/18 06:00 Intake and Output: 05/06/18 05/06/18 06:59 18:59 Intake Total 420 Output Total 600 Balance -180 - Medications Medications: Current Medications Ascorbic Acid (Vitamin C 500 Mg Tab) 500 mg PO DAILY MADHAVI PRN Reason: Protocol Last Admin: 05/05/18 10:25 Dose: 500 mg Aspirin (Ecotrin) 81 mg PO 0800 MADHAVI PRN Reason: Protocol Last Admin: 05/05/18 07:50 Dose: 81 mg Bacitracin (Bacitracin) 1 gm TOP DAILY MADHAVI Last Admin: 05/05/18 10:24 Dose: 1 applic Cholecalciferol (Vitamin D) 1,000 intlu PO DAILY MADHAVI PRN Reason: Protocol Last Admin: 05/05/18 10:25 Dose: 1,000 intlu Cyanocobalamin (Vitamin B12 1000 Mcg Tab) 1,000 mcg PO DAILY MADHAVI PRN Reason: Protocol Last Admin: 05/05/18 10:25 Dose: 1,000 mcg Furosemide (Lasix) 40 mg PO 0600,1800 MADHAVI PRN Reason: Protocol Last Admin: 05/06/18 05:38 Dose: 40 mg Insulin Human NPH (Humulin N) 6 units SC BID MADHAVI Last Admin: 05/05/18 17:28 Dose: 6 units Insulin Human Regular (Humulin R Med) 0 units SC ACHS MADHAVI PRN Reason: Protocol Last Admin: 05/06/18 06:33 Dose: 1 unit Isosorbide Dinitrate (Isordil) 60 mg PO 0600 MADHAVI PRN Reason: Protocol Last Admin: 05/06/18 05:39 Dose: 60 mg Metolazone (Zaroxolyn) 2.5 mg PO DAILY MADHAVI PRN Reason: Protocol Last Admin: 05/05/18 10:25 Dose: 2.5 mg Metoprolol Tartrate (Lopressor) 100 mg PO 0800,1800 MADHAVI PRN Reason: Protocol Last Admin: 05/05/18 17:27 Dose: 100 mg Nystatin (Nystop Topical Powder) 0 gm TOP BID MADHAVI PRN Reason: Protocol Last Admin: 05/05/18 17:29 Dose: 1 applic Oxycodone/Acetaminophen (Percocet 5/325 Mg Tab) 1 tab PO Q6H PRN PRN Reason: Pain, severe (8-10) Stop: 05/07/18 10:37 Last Admin: 05/06/18 05:38 Dose: 1 tab Pantoprazole Sodium (Protonix Ec Tab) 40 mg PO 0600 MADHAVI PRN Reason: Protocol Last Admin: 05/06/18 05:38 Dose: 40 mg Primidone (Mysoline) 50 mg PO HS MADHAVI PRN Reason: Protocol Last Admin: 05/05/18 21:27 Dose: 50 mg - Constitutional Appears: Well, Non-toxic, No Acute Distress - Extremities Exam Additional comments: Lower extremity focused exam: Vasc - DP 1/4, PT 1/4 B/L. CFT <3 seconds to all digits. Pedal hair growth absent. Temperature gradient warm to cool. No edema noted to leg. Neuro - Protective sensation diminished. Derm - Left plantar submetatarsal head 1 ulceration noted to be healed at this time with overlying hyperkeratotic tissue noted to roof of ulceration site. Erika -wound (-) for erythema or maceration. No purulence or drainage noted. No signs of ascending cellulitis. No clinical signs of active infection. Ortho - Partial left hallux amputation noted. Left second digit amputation. Rigid hammertoe contractures are noted to all lesser digits of R foot and 3rd- 5th digits of L foot. MMT 5/5. No tenderness to palpation to plantar hallux wound. - Neurological Exam Neurological Exam: Alert, Awake, Oriented x3 - Psychiatric Exam Psychiatric exam: Normal Affect, Normal Mood Assessment and Plan - Assessment and Plan (Free Text) Assessment: 73 y/o female patient with left foot sub 1st met head ulceration Plan: Pt seen and examined with attending Dr. Cortés Chart, labs and vitals reviewed; afebrile, NNL Bilateral foot and ankle x-rays show no remarkable findings Wound cx left foot - Enterococcus faecalis Pt has completed course of abx Optifoam bandage applied to ulcer site for protection when ambulating Continue PT/OT in TCU Pt is stable for discharge from podiatry standpoint Podiatry will continue to follow patient
--- NOTE | 2018-05-06 09:12 | CP.PCM.PN ---
<Javier Boyce - Last Filed: 05/06/18 13:42> Subjective - Date & Time of Evaluation Date of Evaluation: 05/06/18 Time of Evaluation: 12:51 - Subjective Subjective: Medicine progress note: Patient seen and examined at bedside, no acute events overnight. Patient offered no new complaints at this time. Denies chest pain, shortness of breath, fevers, or chills. Objective - Vital Signs/Intake and Output Vital Signs (last 24 hours): Temp Pulse Resp BP Pulse Ox 98.5 F 75 20 138/73 95 05/06/18 06:00 05/06/18 06:00 05/06/18 06:00 05/06/18 07:36 05/06/18 06:00 Intake and Output: 05/06/18 05/06/18 06:59 18:59 Intake Total 420 Output Total 600 Balance -180 - Medications Medications: Current Medications Ascorbic Acid (Vitamin C 500 Mg Tab) 500 mg PO DAILY MADHAVI PRN Reason: Protocol Last Admin: 05/05/18 10:25 Dose: 500 mg Aspirin (Ecotrin) 81 mg PO 0800 MADHAVI PRN Reason: Protocol Last Admin: 05/06/18 07:36 Dose: 81 mg Bacitracin (Bacitracin) 1 gm TOP DAILY MADHAVI Last Admin: 05/05/18 10:24 Dose: 1 applic Cholecalciferol (Vitamin D) 1,000 intlu PO DAILY MADHAVI PRN Reason: Protocol Last Admin: 05/05/18 10:25 Dose: 1,000 intlu Cyanocobalamin (Vitamin B12 1000 Mcg Tab) 1,000 mcg PO DAILY MADHAVI PRN Reason: Protocol Last Admin: 05/05/18 10:25 Dose: 1,000 mcg Furosemide (Lasix) 40 mg PO 0600,1800 MADHAVI PRN Reason: Protocol Last Admin: 05/06/18 05:38 Dose: 40 mg Insulin Human NPH (Humulin N) 6 units SC BID MADHAVI Last Admin: 05/05/18 17:28 Dose: 6 units Insulin Human Regular (Humulin R Med) 0 units SC ACHS MADHAVI PRN Reason: Protocol Last Admin: 05/06/18 06:33 Dose: 1 unit Isosorbide Dinitrate (Isordil) 60 mg PO 0600 MADHAVI PRN Reason: Protocol Last Admin: 05/06/18 05:39 Dose: 60 mg Metolazone (Zaroxolyn) 2.5 mg PO DAILY MADHAVI PRN Reason: Protocol Last Admin: 05/05/18 10:25 Dose: 2.5 mg Metoprolol Tartrate (Lopressor) 100 mg PO 0800,1800 MADHAVI PRN Reason: Protocol Last Admin: 05/06/18 07:36 Dose: 100 mg Nystatin (Nystop Topical Powder) 0 gm TOP BID MADHAVI PRN Reason: Protocol Last Admin: 05/05/18 17:29 Dose: 1 applic Oxycodone/Acetaminophen (Percocet 5/325 Mg Tab) 1 tab PO Q6H PRN PRN Reason: Pain, severe (8-10) Stop: 05/07/18 10:37 Last Admin: 05/06/18 05:38 Dose: 1 tab Pantoprazole Sodium (Protonix Ec Tab) 40 mg PO 0600 MADHAVI PRN Reason: Protocol Last Admin: 05/06/18 05:38 Dose: 40 mg Primidone (Mysoline) 50 mg PO HS MADHAVI PRN Reason: Protocol Last Admin: 05/05/18 21:27 Dose: 50 mg - Constitutional Appears: Well, No Acute Distress - Head Exam Head Exam: ATRAUMATIC, NORMAL INSPECTION - Eye Exam Eye Exam: Normal appearance - ENT Exam ENT Exam: Mucous Membranes Moist - Respiratory Exam Respiratory Exam: Clear to Ausculation Bilateral. absent: Rales, Rhonchi, Wheezes - Cardiovascular Exam Cardiovascular Exam: REGULAR RHYTHM, +S1, +S2. absent: Rubs, Murmur - GI/Abdominal Exam GI & Abdominal Exam: Soft, Normal Bowel Sounds. absent: Tenderness - Extremities Exam Additional comments: Dressing on left foot is clean/dry/intact - Neurological Exam Neurological Exam: Alert, Awake, Oriented x3 - Psychiatric Exam Psychiatric exam: Normal Affect, Normal Mood - Skin Skin Exam: Dry, Warm Assessment and Plan - Assessment and Plan (Free Text) Assessment: 73 year old female with a past medical history of AAA repair, colectomy s/p ischemic colitis, CKD stage 4, CAD s/p CABG, cardiomyopathy, CHF, pacemaker and DM who is being admitted for difficulty ambulating and wound on the left foot. Plan: Difficulty ambulating: Likely due to severe osteoarthritis of the right hip and recent amputated left toes. - Pelvis and knee xray are negative. - Hip CT showed severe degenerative changes on the right. Patient is aware and declined hip replacement surgery. - Continue PT/OT in TCU UTI- Gram positive cocci- resolved - Patient received 5 days of cipro - Remains afebrile - Patient does not show any urinary symptoms Wound on left toe - Regular dressing changes as per podiatry. - Wound cx left foot - Enterococcus faecalis - Status post 5 days of Cipro - Pt is stable for discharge as from podiatry point of view - As per podiatry, the wound is healed and no signs of active infection Hx of DM - Continue long acting and pre-meal insulin. - Continue with insulin sliding scale. - Accu checks ACHS - Mod consistent carb diet. Hx of CHF - Continue ASA, metoprolol, lasix - As per cardiology, patient's cardiac status is optimized at this time Patient seen, examined, and case discussed with Dr. Parada. <Gerry Parada - Last Filed: 05/06/18 16:37> Objective - Vital Signs/Intake and Output Vital Signs (last 24 hours): Temp Pulse Resp BP Pulse Ox 98.5 F 75 20 138/73 95 05/06/18 06:00 05/06/18 06:00 05/06/18 06:00 05/06/18 07:36 05/06/18 06:00 Intake and Output: 05/06/18 05/06/18 06:59 18:59 Intake Total 420 Output Total 600 Balance -180 - Medications Medications: Current Medications Ascorbic Acid (Vitamin C 500 Mg Tab) 500 mg PO DAILY MADHAVI PRN Reason: Protocol Last Admin: 05/06/18 10:29 Dose: 500 mg Aspirin (Ecotrin) 81 mg PO 0800 MADHAVI PRN Reason: Protocol Last Admin: 05/06/18 07:36 Dose: 81 mg Bacitracin (Bacitracin) 1 gm TOP DAILY MADHAVI Last Admin: 05/06/18 10:28 Dose: 1 applic Cholecalciferol (Vitamin D) 1,000 intlu PO DAILY MADHAVI PRN Reason: Protocol Last Admin: 05/06/18 10:29 Dose: 1,000 intlu Cyanocobalamin (Vitamin B12 1000 Mcg Tab) 1,000 mcg PO DAILY MADHAVI PRN Reason: Protocol Last Admin: 05/06/18 10:29 Dose: 1,000 mcg Furosemide (Lasix) 40 mg PO 0600,1800 MADHAVI PRN Reason: Protocol Last Admin: 05/06/18 05:38 Dose: 40 mg Insulin Human NPH (Humulin N) 6 units SC BID MADHAVI Last Admin: 05/06/18 10:28 Dose: 6 units Insulin Human Regular (Humulin R Med) 0 units SC ACHS MADHAVI PRN Reason: Protocol Last Admin: 05/06/18 12:02 Dose: 7 unit Isosorbide Dinitrate (Isordil) 60 mg PO 0600 MADHAVI PRN Reason: Protocol Last Admin: 05/06/18 05:39 Dose: 60 mg Metolazone (Zaroxolyn) 2.5 mg PO DAILY MADHAVI PRN Reason: Protocol Last Admin: 05/06/18 10:29 Dose: 2.5 mg Metoprolol Tartrate (Lopressor) 100 mg PO 0800,1800 MADHAVI PRN Reason: Protocol Last Admin: 05/06/18 07:36 Dose: 100 mg Nystatin (Nystop Topical Powder) 0 gm TOP BID MADHAVI PRN Reason: Protocol Last Admin: 05/06/18 10:29 Dose: 1 applic Oxycodone/Acetaminophen (Percocet 5/325 Mg Tab) 1 tab PO Q6H PRN PRN Reason: Pain, severe (8-10) Stop: 05/07/18 10:37 Last Admin: 05/06/18 15:54 Dose: 1 tab Pantoprazole Sodium (Protonix Ec Tab) 40 mg PO 0600 MADHAVI PRN Reason: Protocol Last Admin: 05/06/18 05:38 Dose: 40 mg Primidone (Mysoline) 50 mg PO HS MADHAVI PRN Reason: Protocol Last Admin: 05/05/18 21:27 Dose: 50 mg Attending/Attestation - Attestation I have personally seen and examined this patient.: Yes I have fully participated in the care of the patient.: Yes I have reviewed all pertinent clinical information, including history, physical exam and plan: Yes Notes (Text): 05/06/18 16:32 Attending note; Patient seen and examined with resident in TCU. Patient's by the bedside. Patient denies any complaints. Getting physical therapy. Patient is a 73 year old male with PMH AAA repair, CAD s/p CABG, chronic ataxia , colectomy s/p ischemic colitis, ckd , cardiomyopathy, dilated cardiomyopathy, pacemaker and DM is admitted for difficulty and fall. Patient has significant degenerative right hip disease. Refused surgery/ orthopedic consultation. Currently getting physical therapy and occupational therapy. Left foot dressing done by podiatry. Needs follow-up with Dr. Cortés as outpatient. Cardiology evaluation with Dr. Vidales appreciated. Continue aspirin, metoprolol and Lasix. stable cardiac status. Plan for discharge tomorrow. Case discussed with physical therapist and social worker school in detail. Case discussed with PMD in detail. Upon discharge patient will follow-up with PMD .
[2018-05-06] MEDS: Bacitracin Ointment 30 GM TUBE TOP SCH (10:28)
[2018-05-06] MEDS: Insulin Human NPH 1 UNITS/0.01 ML SC SCH ×2 (10:28→18:07)
[2018-05-06] MEDS: metOLazone 2.5 MG TAB PO SCH (10:29)
[2018-05-06] MEDS: Cholecalciferol 1,000 INTLU TAB PO SCH (10:29)
[2018-05-06] MEDS: Nystatin 100,000 Units/gm Topical Pow(15 gm) TOP SCH ×2 (10:29→18:07)
--- NOTE | 2018-05-06 10:47 | CON ---
DATE: 05/06/2018 CARDIOLOGY CONSULTATION HISTORY: The patient is a 73-year-old woman, who presents with difficulty walking. The patient's past medical history includes end-stage dilated cardiomyopathy, treated for prolonged period of time on intravenous home ionotropic therapy. The patient suffers from coronary artery disease. Her cardiac risk factors includes diabetes mellitus and hypercholesterolemia. Currently, the patient is without shortness of breath, without chest pain. SOCIAL HISTORY: The patient does not smoke. REVIEW OF SYSTEMS: Fourteen-point review of systems reveals no angina, no dyspnea. Trace edema. Marked weakness with difficulty walking. No PND. No orthopnea. PHYSICAL EXAMINATION: VITAL SIGNS: Stable. NECK: Negative JVD. LUNGS: Without rales. HEART: Reveals S1, S2. EXTREMITIES: Without edema. LABORATORY DATA: Laboratories were reviewed. IMPRESSION: 1. No active congestive heart failure. 2. End-stage dilated cardiomyopathy. 3. Coronary artery disease. 4. Diabetes mellitus. 5. Weakness. PLAN: Given these findings, the patient's cardiac status is at its optimum at this time. We will continue her Lasix twice a day. Continue physical therapy in the TCU. Vinnie Vidales MD
[2018-05-06 16:34] VITALS: RESP 16; TEMP 98.6; O2SAT 97
--- NOTE | 2018-05-06 21:22 | CP.PCM.PN ---
Subjective - Date & Time of Evaluation Date of Evaluation: 05/06/18 Time of Evaluation: 08:50 - Subjective Subjective: No fevers, comfortable. Objective - Vital Signs/Intake and Output Vital Signs (last 24 hours): Temp Pulse Resp BP Pulse Ox 98.5 F 75 20 138/73 95 05/06/18 06:00 05/06/18 06:00 05/06/18 06:00 05/06/18 07:36 05/06/18 06:00 Intake and Output: 05/06/18 05/06/18 06:59 18:59 Intake Total 420 Output Total 600 Balance -180 - Medications Medications: Current Medications Ascorbic Acid (Vitamin C 500 Mg Tab) 500 mg PO DAILY MADHAVI PRN Reason: Protocol Last Admin: 05/05/18 10:25 Dose: 500 mg Aspirin (Ecotrin) 81 mg PO 0800 MADHAVI PRN Reason: Protocol Last Admin: 05/06/18 07:36 Dose: 81 mg Bacitracin (Bacitracin) 1 gm TOP DAILY MADHAVI Last Admin: 05/05/18 10:24 Dose: 1 applic Cholecalciferol (Vitamin D) 1,000 intlu PO DAILY MADHAVI PRN Reason: Protocol Last Admin: 05/05/18 10:25 Dose: 1,000 intlu Cyanocobalamin (Vitamin B12 1000 Mcg Tab) 1,000 mcg PO DAILY MADHAVI PRN Reason: Protocol Last Admin: 05/05/18 10:25 Dose: 1,000 mcg Furosemide (Lasix) 40 mg PO 0600,1800 MADHAVI PRN Reason: Protocol Last Admin: 05/06/18 05:38 Dose: 40 mg Insulin Human NPH (Humulin N) 6 units SC BID MADHAVI Last Admin: 05/05/18 17:28 Dose: 6 units Insulin Human Regular (Humulin R Med) 0 units SC ACHS MADHAVI PRN Reason: Protocol Last Admin: 05/06/18 06:33 Dose: 1 unit Isosorbide Dinitrate (Isordil) 60 mg PO 0600 MADHAVI PRN Reason: Protocol Last Admin: 05/06/18 05:39 Dose: 60 mg Metolazone (Zaroxolyn) 2.5 mg PO DAILY MADHAVI PRN Reason: Protocol Last Admin: 05/05/18 10:25 Dose: 2.5 mg Metoprolol Tartrate (Lopressor) 100 mg PO 0800,1800 MADHAVI PRN Reason: Protocol Last Admin: 05/06/18 07:36 Dose: 100 mg Nystatin (Nystop Topical Powder) 0 gm TOP BID MADHAVI PRN Reason: Protocol Last Admin: 05/05/18 17:29 Dose: 1 applic Oxycodone/Acetaminophen (Percocet 5/325 Mg Tab) 1 tab PO Q6H PRN PRN Reason: Pain, severe (8-10) Stop: 05/07/18 10:37 Last Admin: 05/06/18 05:38 Dose: 1 tab Pantoprazole Sodium (Protonix Ec Tab) 40 mg PO 0600 MADHAVI PRN Reason: Protocol Last Admin: 05/06/18 05:38 Dose: 40 mg Primidone (Mysoline) 50 mg PO HS MADHAVI PRN Reason: Protocol Last Admin: 05/05/18 21:27 Dose: 50 mg - Constitutional Appears: Chronically Ill - Head Exam Head Exam: NORMAL INSPECTION - Respiratory Exam Respiratory Exam: Decreased Breath Sounds - Cardiovascular Exam Cardiovascular Exam: +S1, +S2 - GI/Abdominal Exam GI & Abdominal Exam: Soft. absent: Tenderness Assessment and Plan - Assessment and Plan (Free Text) Plan: Assessment S/P left foot 2nd digit skin and skin structure infection CAD S/P CABG abdominal aortic aneurysm S/P repair S/P cholecystectomy S/P pacemaker placement DM S/P left toe amputation Plan continue to monitor off antibiotics since she is at risk for nosocomial infections
[2018-05-07] MEDS: Pantoprazole 40 mg EC Tab PO SCH (05:53)
[2018-05-07 05:55] VITALS: BP 153/72
[2018-05-07] MEDS: Insulin Reg-MEDIUM-Coverage SC SCH ×2 (06:57→11:47)
[2018-05-07] MEDS: Insulin Human NPH 1 UNITS/0.01 ML SC SCH (09:32)
[2018-05-07] MEDS: Bacitracin Ointment 30 GM TUBE TOP SCH (09:32)
[2018-05-07] MEDS: Cholecalciferol 1,000 INTLU TAB PO SCH (09:33)
[2018-05-07] MEDS: Nystatin 100,000 Units/gm Topical Pow(15 gm) TOP SCH (09:33)
[2018-05-07] MEDS: metOLazone 2.5 MG TAB PO SCH (09:34)
[2018-05-07 09:37] VITALS: PULSE 78
--- NOTE | 2018-05-07 10:08 | PN ---
DATE: 05/07/2018 CARDIOLOGY FOLLOWUP SUBJECTIVE: The patient is without shortness of breath. PHYSICAL EXAMINATION VITAL SIGNS: Blood pressure is 153/72, heart rate is in the 80s. NECK: Negative JVD LUNGS: No rales noted. HEART: Reveals S1, S2. EXTREMITIES: Mild edema. LABORATORY DATA: Glucose is 183. IMPRESSION: 1. Wound care. 2. Dilated cardiomyopathy. 3. Coronary artery disease. 4. Coronary artery bypass surgery. 5. Diabetes mellitus. 6. Chronic obstructive pulmonary disease. Given these findings, the patient is hemodynamically stable. We will continue on antibiotics. Vinnie Vidales MD
--- NOTE | 2018-05-07 10:51 | CP.PCM.PN ---
Subjective - Date & Time of Evaluation Date of Evaluation: 05/07/18 Time of Evaluation: 09:45 - Subjective Subjective: Comfortable in bed, no fevers. Objective - Vital Signs/Intake and Output Vital Signs (last 24 hours): Temp Pulse Resp BP Pulse Ox 98.6 F 68 16 153/72 H 97 05/06/18 16:00 05/06/18 18:06 05/06/18 16:00 05/07/18 05:52 05/06/18 16:00 Intake and Output: 05/07/18 05/07/18 06:59 18:59 Intake Total 360 Output Total 600 Balance -240 - Medications Medications: Current Medications Ascorbic Acid (Vitamin C 500 Mg Tab) 500 mg PO DAILY MADHAVI PRN Reason: Protocol Last Admin: 05/06/18 10:29 Dose: 500 mg Aspirin (Ecotrin) 81 mg PO 0800 MADHAVI PRN Reason: Protocol Last Admin: 05/06/18 07:36 Dose: 81 mg Bacitracin (Bacitracin) 1 gm TOP DAILY MADHAVI Last Admin: 05/06/18 10:28 Dose: 1 applic Cholecalciferol (Vitamin D) 1,000 intlu PO DAILY MADHAVI PRN Reason: Protocol Last Admin: 05/06/18 10:29 Dose: 1,000 intlu Cyanocobalamin (Vitamin B12 1000 Mcg Tab) 1,000 mcg PO DAILY MADHAVI PRN Reason: Protocol Last Admin: 05/06/18 10:29 Dose: 1,000 mcg Furosemide (Lasix) 40 mg PO 0600,1800 MADHAVI PRN Reason: Protocol Last Admin: 05/07/18 05:52 Dose: 40 mg Insulin Human NPH (Humulin N) 6 units SC BID MADHAVI Last Admin: 05/06/18 18:07 Dose: 6 units Insulin Human Regular (Humulin R Med) 0 units SC ACHS MADHAVI PRN Reason: Protocol Last Admin: 05/07/18 06:57 Dose: 1 unit Isosorbide Dinitrate (Isordil) 60 mg PO 0600 MADHAVI PRN Reason: Protocol Last Admin: 05/07/18 05:51 Dose: 60 mg Metolazone (Zaroxolyn) 2.5 mg PO DAILY MADHAVI PRN Reason: Protocol Last Admin: 05/06/18 10:29 Dose: 2.5 mg Metoprolol Tartrate (Lopressor) 100 mg PO 0800,1800 MADHAVI PRN Reason: Protocol Last Admin: 05/06/18 18:06 Dose: 100 mg Nystatin (Nystop Topical Powder) 0 gm TOP BID MADHAVI PRN Reason: Protocol Last Admin: 05/06/18 18:07 Dose: 1 applic Oxycodone/Acetaminophen (Percocet 5/325 Mg Tab) 1 tab PO Q6H PRN PRN Reason: Pain, severe (8-10) Stop: 05/07/18 10:37 Last Admin: 05/06/18 22:17 Dose: 1 tab Pantoprazole Sodium (Protonix Ec Tab) 40 mg PO 0600 MADHAVI PRN Reason: Protocol Last Admin: 05/07/18 05:53 Dose: 40 mg Primidone (Mysoline) 50 mg PO HS MADHAVI PRN Reason: Protocol Last Admin: 05/06/18 22:16 Dose: 50 mg - Constitutional Appears: Chronically Ill - Head Exam Head Exam: NORMAL INSPECTION - Respiratory Exam Respiratory Exam: Decreased Breath Sounds - Cardiovascular Exam Cardiovascular Exam: +S1, +S2 - GI/Abdominal Exam GI & Abdominal Exam: Soft. absent: Tenderness Assessment and Plan - Assessment and Plan (Free Text) Plan: Assessment S/P left foot 2nd digit skin and skin structure infection CAD S/P CABG abdominal aortic aneurysm S/P repair S/P cholecystectomy S/P pacemaker placement DM S/P left toe amputation Plan continue to monitor off antibiotics since she is at risk for hospital-acquired infections
--- NOTE | 2018-05-07 12:28 | CP.PCM.DIS ---
<IsabellJavier ernst - Last Filed: 05/07/18 21:14> Provider - Provider Date of Admission: 04/29/18 17:00 Attending physician: Gerry Parada MD Time Spent in preparation of Discharge (in minutes): 45 Hospital Course - Lab Results Lab Results: Most Recent Lab Values POC Glucose (mg/dL) 387 mg/dL (65-110) H 05/07/18 11:16 - Hospital Course Hospital Course: Ms. Min is a 73 year old female with a past medical history of abdominal aortic aneurysm repair, colectomy status post ischemic colitis, chronic kidney disease stage 4, coronary artery disease status post coronary artery bypass grafting, cardiomyopathy, congestive heart failure, pacemaker and diabetes mellitus who was admitted for difficulty ambulating and wound on the left foot. During her hospital stay, the patient was seen by podiatry (Dr. Cortés). Podiatry managed the patient's wound and continue to keep the dressing clean with daily dressing changes. Optifoam bandage was also applied to the ulcer site for protection when ambulating. Cardiology (Dr. Vidales) examined the patient for her cardiac history of non-active CHF, cardiomyopathy, and CAD. Cardiology recommended the patient to continue taking her furosemide twice a day and found that the patient's cardiac status is at its optimum at this time. Infectious disease (Dr. Trevino and Dr. Coto) examined the patient and recommended that the wound to be monitored closely since the patient is at risk for nosocomial infections. However, no antibiotics was needed at the time. During the course of her stay, the patient underwent x-rays of the foot, ankle, knees, and hips. Patient also underwent hip CT and EKG which were utilized in the management of her care. EKG showed sinus rhythm with premature atrial complexes , left ventricular hypertrophy with repolarization abnormality, and marked ST abnormality consistent with ischemia. Foot and ankle x-rays were negative for fractures or acute changes. Knee x-ray showed degenerative changes to both knees with the left greater than the right with bilateral joint effusions on the left slightly larger than the right. Hip x-ray showed significant degenerative osteoarthritis of the right hip. CT of the hip also showed severe degenerative changes of the right hip. Patient was instructed to resume home medications which include: ASA, metolazone, primidone, pravastatin, metoprolol, isosorbide nitrate, insulin, furosemide, vitamin B12, Vitamin D, and vitamin C. Patient was instructed to resume activity as tolerated and continue to eat a heart healthy diet at home. Patient was educated on the correct way to take medications and asked to follow up with her primary care doctor and podiatry within 3-5 days after discharge. Patient further informed to return to the ED for worsening of symptoms.Patient is now medically optimized for discharge. Discharge Exam - Head Exam Head Exam: ATRAUMATIC, NORMAL INSPECTION - Eye Exam Eye Exam: Normal appearance - ENT Exam ENT Exam: Mucous Membranes Moist - Respiratory Exam Respiratory Exam: Clear to PA & Lateral. absent: Rales, Rhonchi, Wheezes - Cardiovascular Exam Cardiovascular Exam: REGULAR RHYTHM, +S1, +S2. absent: Gallop, Rubs, Systolic Murmur - GI/Abdominal Exam GI & Abdominal Exam: Normal Bowel Sounds, Soft. absent: Tenderness Additional comments: Colostomy bag present on right side of the abdomen. - Extremities Exam Additional comments: Dressing on left foot is clean, dry, and intact - Neurological Exam Neurological exam: Alert, Oriented x3 - Psychiatric Exam Psychiatric exam: Normal Affect, Normal Mood - Skin Skin Exam: Dry, Warm Discharge Plan - Follow Up Plan Condition: GOOD Disposition: DISCHARGED TO HOME CARE Instructions: Renal Failure Diet (DC) Additional Instructions: 1. Follow up with primary care doctor 5-7 days after discharge, please discuss with primary care doctor for blood sugar monitoring. 2. Resume home medications as per discharge instructions. 3. Please follow up with podiatry as outpatient. 4. Please return to emergency department for reoccurring symptoms or any other symptoms requiring any medical attention. <Gerry Parada - Last Filed: 05/08/18 15:23> Provider - Provider Date of Admission: 04/29/18 17:00 Attending physician: Gerry Parada MD Hospital Course - Lab Results Lab Results: Most Recent Lab Values POC Glucose (mg/dL) 387 mg/dL (65-110) H 05/07/18 11:16 Attending/Attestation - Attestation I have personally seen and examined this patient.: Yes I have fully participated in the care of the patient.: Yes I have reviewed all pertinent clinical information, including history, physical exam and plan: Yes Notes (Text): 05/08/18 15:22 Attending note; Patient seen and examined with resident in TCU. Patient's by the bedside. Patient denies any complaints. Patient is a 73 year old male with PMH AAA repair, CAD s/p CABG, chronic ataxia , colectomy s/p ischemic colitis, ckd , cardiomyopathy, dilated cardiomyopathy, pacemaker and DM is admitted for difficulty and fall. Patient has significant degenerative right hip disease. Refused surgery/ orthopedic consultation. Currently getting physical therapy and occupational therapy. Left foot dressing done by podiatry. Needs follow-up with Dr. Cortés as outpatient. Cardiology evaluation with Dr. Vidales appreciated. Continue aspirin, metoprolol and Lasix. stable cardiac status. Case discussed with physical therapist and mental health social worker in detail. discharge home today. Case discussed with PMD in detail. Upon discharge patient will follow-up with PMD .
== END 2018-05-07 14:30 | disposition home health service (06) | DRG 637 ==
LOC: TRCU 17:00
PROVIDERS: ADMIT Internal Medicine; ATTEND Internal Medicine
PROC: F07Z9FZ Gait Training/Functional Ambulation Treatment using Assistive, Adaptive, Supportive or Protective Equipment (ICD-10-PCS; principal; 2018-04-30)
PROC: F07M6ZZ Therapeutic Exercise Treatment of Musculoskeletal System - Whole Body (ICD-10-PCS; 2018-04-30)
PROC: F08Z2ZZ Grooming/Personal Hygiene Treatment (ICD-10-PCS; 2018-04-30)
PROC: F08Z1ZZ Dressing Techniques Treatment (ICD-10-PCS; 2018-04-30)
PROC: F08Z4ZZ Home Management Treatment (ICD-10-PCS; 2018-04-30)
PROC: F08Z0ZZ Bathing/Showering Techniques Treatment (ICD-10-PCS; 2018-04-30)
DX: E11.621 Type 2 diabetes mellitus with foot ulcer (principal); K85.90 Acute pancreatitis without necrosis or infection, unspecified; N39.0 Urinary tract infection, site not specified; R78.81 Bacteremia; I42.0 Dilated cardiomyopathy; I50.22 Chronic systolic (congestive) heart failure; K55.9 Vascular disorder of intestine, unspecified; E11.51 Type 2 diabetes mellitus with diabetic peripheral angiopathy without gangrene; G89.29 Other chronic pain; B35.1 Tinea unguium; B95.2 Enterococcus as the cause of diseases classified elsewhere; E11.22 Type 2 diabetes mellitus with diabetic chronic kidney disease; L97.529 Non-pressure chronic ulcer of other part of left foot with unspecified severity; M16.11 Unilateral primary osteoarthritis, right hip; M17.0 Bilateral primary osteoarthritis of knee; N18.4 Chronic kidney disease, stage 4 (severe); S80.212A Abrasion, left knee, initial encounter; I25.10 Atherosclerotic heart disease of native coronary artery without angina pectoris; I25.5 Ischemic cardiomyopathy; I49.1 Atrial premature depolarization; J44.9 Chronic obstructive pulmonary disease, unspecified; T36.4X5A Adverse effect of tetracyclines, initial encounter; W19.XXXA Unspecified fall, initial encounter; Y93.01 Activity, walking, marching and hiking; Y92.039 Unspecified place in apartment as the place of occurrence of the external cause; Z79.4 Long term (current) use of insulin; Z79.82 Long term (current) use of aspirin; Z86.79 Personal history of other diseases of the circulatory system; Z87.19 Personal history of other diseases of the digestive system; Z87.891 Personal history of nicotine dependence; Z89.422 Acquired absence of other left toe(s); Z90.49 Acquired absence of other specified parts of digestive tract; Z95.0 Presence of cardiac pacemaker; Z95.1 Presence of aortocoronary bypass graft

== ENCOUNTER 2018-07-29 16:04 | Inpatient (IN) | payer MEDICARE ==
[2018-07-29 16:05] VITALS: PULSE 92
--- NOTE | 2018-07-29 16:59 | ED PDOC ---
Arrival/HPI - General Chief Complaint: Lower Extremity Problem/Injury Time Seen by Provider: 07/29/18 16:13 Historian: Patient - History of Present Illness Narrative History of Present Illness (Text): 07/29/18 16:37 A 73 year old female, whose past medical history includes CAD s/p CABG, cardiomyopathy, CHF, pacemaker, diabetes, AAA repair, colectomy, and CKD stage 4, presents to the emergency department complaining of generalized weakness and fatigue for 3 months. Patient reports she was admitted here before in the past and was in rehab for some time. She was assigned a home physical therapist, however the PT resulted in leaving the patient. Afterwards, patient's condition worsened, with developing shortness of breath and left lower extremity swelling. Over the last few days/weeks, patient's condition has worsened. Patient saw her PMD, who sent patient to the emergency department for evaluation. Patient denies fever, cough, chest pain, or any other complaints at this time. Denies any history of EtOH abuse, and no longer a smoker. PMD: Dr. Flannery Associated Symptoms (Text): 07/29/18 17:18 Patient and family complaining of generalized weakness and fatigue and difficulty ambulating for approximately 3 months. Patient was admitted with similar complaints at that time. She had physical therapy while in the hospital. She had physical therapy at home, but her insurance benefits ran out and her physical therapy was stopped. Since then she has begun to go downhill. There is now some swelling of the left lower extremity. She also has some shortness of breath. No cough. No chest pain. No fever or chills. Past Medical History - Provider Review Nursing Documentation Reviewed: Yes - Infectious Disease Hx of Infectious Diseases: None - Tetanus Immunization Tetanus Immunization: Unknown - Cardiac Hx Cardiac Disorders: Yes (CAD s/p CABG) Hx Pacemaker: Yes - Pulmonary Hx Respiratory Disorders: No - Neurological Hx Neurological Disorder: No - HEENT Hx Cataracts: Yes (bilateral laser sx) - Renal Hx Renal Disorder: Yes - Endocrine/Metabolic Hx Diabetes Mellitus Type 2: Yes - Hematological/Oncological Hx Blood Transfusions: No Hx Blood Transfusion Reaction: No - Integumentary Other/Comment: STage 3 sacral ulcers. BLE redness w/ scattered scabs. Under breasts folds redness. Bilateral under belly Folds redness skin excoriated - Musculoskeletal/Rheumatological Hx Arthritis: Yes - Gastrointestinal Hx Gastrointestinal Disorders: Yes (umbilical hernia) Hx Ileostomy: Yes (s/p ischemic colitis) - Genitourinary/Gynecological Hx Reproductive Disorders: No - Psychiatric Hx Psychophysiologic Disorder: No Hx Substance Use: No - Surgical History Hx Abdominal Aortic Aneurysm Repair: Yes Hx Eye Surgery: Yes (Cataracts laser) - Anesthesia Hx Anesthesia: Yes Hx Anesthesia Reactions: No Hx Malignant Hyperthermia: No - Suicidal Assessment Feels Threatened In Home Enviroment: No Family/Social History - Physician Review Nursing Documentation Reviewed: Yes Family/Social History: No Known Family HX Smoking Status: Former Smoker Hx Alcohol Use: No Hx Substance Use: No Hx Substance Use Treatment: No Allergies/Home Meds Allergies/Adverse Reactions: Allergies doxycycline Allergy (Verified 04/29/18 21:11) ANAPHYLAXIS shellfish derived Allergy (Verified 04/29/18 21:11) ANAPHYLAXIS Home Medications: Home Meds Medication Instructions Recorded Confirmed Ascorbic Acid [Vitamin C 500 mg 500 mg PO DAILY 02/19/17 04/29/18 Tab] Aspirin [Ecotrin] 81 mg PO DAILY 02/19/17 04/29/18 Cholecalciferol [Vitamin D 1000 IU] 1,000 iu PO DAILY 02/19/17 04/29/18 Cyanocobalamin (Vitamin B-12) 1,000 mcg PO BID 02/19/17 04/29/18 [B-12] Insulin Human NPH [Humulin N] 6 units SC BID 02/19/17 04/29/18 Insulin Human Regular [HumuLIN R] 6 units SC ACHS 02/19/17 04/29/18 Isosorbide Dinitrate 60 mg PO DAILY 02/19/17 04/29/18 Metoprolol Tartrate [Lopressor] 100 mg PO BID 02/19/17 04/29/18 Multivitamin [Multivitamins] 1 tab PO DAILY 02/19/17 04/29/18 Primidone [Mysoline] 50 mg PO HS 02/19/17 04/29/18 metOLazone [Zaroxolyn] 2.5 mg PO DAILY 02/19/17 04/29/18 Pravastatin Sodium [Pravachol] 20 mg PO DIN 05/17/17 04/29/18 Review of Systems - Physician Review All systems were reviewed & negative as marked: Yes - Review of Systems Constitutional: Fatigue, Other (generalized weakness). absent: Fevers Respiratory: SOB. absent: Cough, Wheezing Cardiovascular: absent: Chest Pain, Palpitations, Syncope Gastrointestinal: absent: Abdominal Pain, Nausea, Vomiting Musculoskeletal: Other (left lower extremity swelling) Neurological: absent: Headache, Dizziness, Focal Weakness Physical Exam Vital Signs Reviewed: Yes Vital Signs Temp Pulse Resp BP Pulse Ox 07/29/18 16:39 98.3 F 67 18 138/85 100 Temperature: Afebrile Blood Pressure: Normal Pulse: Regular Respiratory Rate: Normal Appearance: Positive for: Well-Appearing, Non-Toxic, Comfortable Pain Distress: None Mental Status: Positive for: Alert and Oriented X 3 Finger Stick Blood Glucose: 179 - Systems Exam Head: Present: Atraumatic, Normocephalic Pupils: Present: PERRL Extroacular Muscles: Present: EOMI Conjunctiva: Present: Normal Mouth: Present: Moist Mucous Membranes Pharnyx: No: ERYTHEMA, EXUDATE, TONSILS ENLARGED Neck: Present: Normal Range of Motion Respiratory/Chest: Present: Good Air Exchange, Decreased Breath Sounds, Rales (mild bibasilar rales). No: Respiratory Distress, Accessory Muscle Use, Wheezes, Retracting, Rhonchi, Tachypneic, Tender to Palpation Cardiovascular: Present: Regular Rate and Rhythm, Normal S1, S2. No: Murmurs Abdomen: No: Tenderness, Distention, Peritoneal Signs, Rebound, Guarding Back: Present: Normal Inspection Upper Extremity: Present: Normal Inspection. No: Cyanosis, Edema Lower Extremity: Present: Tenderness (left lower extremity), Swelling (left lower extremity), Other (left foot 1st and 2nd digit amputation, healing ulcer to anterior left grover; chronic venous stasis bilaterally.). No: NORMAL PULSES (unable to palpate pulse) Neurological: Present: GCS=15, CN II-XII Intact, Speech Normal, Motor Func Grossly Intact Skin: Present: Warm, Dry, Normal Color. No: Rashes Psychiatric: Present: Alert, Oriented x 3, Normal Insight, Normal Concentration Medical Decision Making ED Course and Treatment: 07/29/18 16:40 Impression: 73 year old female with generalized weakness and fatigue. Plan: -- EKG -- Chest X-ray -- Labs -- Venous Blood Gas -- Lower Extremity Ultrasound -- Reassess and disposition Prior Visits: Notes and results from previous visits were reviewed. Patient was last seen here in the emergency department on 04/26/2018 for difficulty ambulating. Progress Notes: 07/29/18 17:20 EKG shows normal sinus rhythm rate approximately [address] and T- wave changes 07/29/2018 17:14 Chest X-ray IMPRESSION: Possible early right lower lobe infiltrate. Follow-up advised. Dictator: Vinnie Landaverde MD - RAD Interpretation Radiology Orders: 07/29/18 16:40 DUPLEX LOWER EXTRM VEIN BILAT [US] Stat 07/29/18 16:41 CHEST PORTABLE [RAD] Stat X-ray chest one view as read by the radiologist is positive for a right lower lobe pneumonia. Bilateral lower extremity venous Doppler is read by the radiologist as negative for DVT. Fashion Marketer: Radiologist - Scribe Statement The provider has reviewed the documentation as recorded by the Scribe Bernadette Rothman Provider Scribe Provider Scribe Attestation: All medical record entries made by the Scribe were at my direction and personally dictated by me. I have reviewed the chart and agree that the record accurately reflects my personal performance of the history, physical exam, medical decision making, and the department course for this patient. I have also personally directed, reviewed, and agree with the discharge instructions and disposition. Disposition/Present on Arrival - Present on Arrival Any Indicators Present on Arrival: No History of DVT/PE: No History of Uncontrolled Diabetes: No Urinary Catheter: No History of Decub. Ulcer: No History Surgical Site Infection Following: None - Disposition Have Diagnosis and Disposition been Completed?: Yes Diagnosis: CHF (congestive heart failure), Leg weakness, bilateral, Pneumonia Disposition: HOSPITALIZED Disposition Time: 18:53 Patient Plan: Admission, Telemetry Condition: FAIR Discharge Instructions (ExitCare): Heart Failure (ED), Weakness (ED) Referrals: Yariel Flannery MD [Primary Care Provider] - Follow up with primary Forms: [employer] (Polish)
--- NOTE | 2018-07-29 17:16 | RAD ---
Date of service: 07/29/2018 HISTORY: sob COMPARISON: 03/18/2018 FINDINGS: LUNGS: Patchy opacity at right base. Possible pneumonia. Follow-up advised. PLEURA: No significant pleural effusion identified, no pneumothorax apparent. CARDIOVASCULAR: Mild cardiomegaly. AICD. Sternotomy wires. Right central venous infusion port. OSSEOUS STRUCTURES: No significant abnormalities. VISUALIZED UPPER ABDOMEN: Normal. OTHER FINDINGS: None. IMPRESSION: Possible early right lower lobe infiltrate. Follow-up advised.
[2018-07-29 17:48] LABS: BASO # 0.02 K/mm3 (0.0-2.0); BASO % 0.2 % (0.0-3.0); EOS # 0.2 (0.0-0.7); EOS % 1.8 % (1.5-5.0); GRAN # 6.61 (1.4-6.5); GRAN % 77.9 % (50.0-68.0); HEMOGLOBIN 11.3 g/dL (12.0-16.0); LYMPH % 12.3 % (22.0-35.0); MEAN CELL VOLUME 95.1 fl (80.0-105.0); MEAN CORPUSCULAR HEMOGLOBIN 30.8 pg (25.0-35.0); MEAN CORPUSCULAR HGB CONC 32.4 g/dl (31.0-37.0); MEAN PLATELET VOLUME 8.8 fl (7.0-11.0); MONO # 0.7 (0.1-0.6); MONO % 7.8 % (1.0-6.0); RBC 3.67 10^6/uL (3.5-6.1); RED CELL DISTRIBUTION WIDTH 14.6 % (11.5-14.5); WHITE BLOOD COUNT 8.5 10^3/ul (4.5-11.0)
[2018-07-29 17:51] LABS: VENOUS BLOOD GAS BASE EXCESS -2.5 mmol/L (0.0-2.0); VENOUS BLOOD GAS PO2 48 mm/Hg (30-55); VENOUS BLOOD PH 7.31 (7.32-7.43)
[2018-07-29 18:00] LABS: ALB/GLOB RATIO 1.3 (1.1-1.8); ALBUMIN 3.6 g/dL (3.0-4.8); CALCIUM 8.4 mg/dL (8.4-10.5)
[2018-07-29] MEDS ORDERED: cefTRIAXone 1 gm 1 GM/100 ML BAG IVPB STA (18:09)
[2018-07-29] MEDS ORDERED: Azithromycin 500MG/NS 250ml 500 MG/250 ML BAG IVPB STA (18:10)
[2018-07-29 18:11] LABS: TROPONIN I 0.02 ng/mL
[2018-07-29 18:34] LABS: INR 1.25; PARTIAL THROMBOPLASTIN TIME 35.1 Seconds (25.1-36.5); PROTHROMBIN TIME 14.3 SECONDS (9.4-12.5)
--- NOTE | 2018-07-29 19:43 | CP.PCM.HP ---
History of Present Illness - History of Present Illness History of Present Illness: PGY-[address] Kelley CC: Sudden weakness and ambulation difficulty Ms Min, 73 F, with PMH CAD s/p CABG & AICD, systolic CHF with End-staged dilated cardiomyopathy s/p IV home inotropic therapy, diabetes with L toe amputation, AAA repair, colostomy s/p colectomy due to ischemic colitis, CKD stage 4, and chronic ataxia with DJD, presents to the emergency department complaining of sudden worsening of generalized weakness, fatigue, and difficulty ambulating x 1 day. Pt was celebrating her 62 anniversary yesterday at home with family. She ate some high salt food, eg pizza, wings. At 8pm, pt suddenly could not stand up from sitting to use the bathroom, and required 2 people assist. She didn't want to came to ED last night because of the anniversary so she came to the ED today. She noticed that she started to have dry coughs x 2 days and increase SOB while ambulating at home. Denies sick contact, recent travel, change in meds, nor skip meds. At baseline, she slept on 2 pillows, (+) mild orthopnea, no home o2, off milrinone gtt x 3 years, (+) SOB yesterday ambulate at home, but no SOB at home at baseline. Pt was admitted at [facility] 3 months ago for gait instability s/p fall, found to have severe R hip DJD, opted not to have ortho-intervention, finished rehab in [facility], and started home PT. However, her insurance benefits ran out and her physical therapy was stopped 2-3weeks ago. ROS - (+) cough, (+) increase SOB Denies fever, chills, runny nose, sore throat, CP, palpitation, N/V/D/C, abdominal pain, dysuria. Denies focal neurol deficit, diploplia, BLANCO Denies any history of EtOH abuse, and no longer a smoker. PMD: Dr. Flannery Cardio: Dr Vidales PMH CAD s/p CABG and AICD End-staged dilated cardiomyopathy s/p IV home inotropic therapy 2014 CHF, systolic (EF 30s, 2017, RVSP 24) diabetes (IDDM x 20 years, A1C 6.29 March 2018) with L toes amputation CKD stage 4 chronic ataxia with DJD Chronic sacral ulcers Umbilical hernia PSH L foot 1st and 2nd digit amputation, 2016, 2017 Port-a-cath placement for milrinone, 2015 AAA repair colectomy s/p ischemic colitis & colostomy creation Cataract b/l s/p pura Sx FH Mom - breast ca, DM; Dad - throat ca SH Former smoker. Denies drug/drink. Walk w rolling walker Independent in 5/6 ADLs at baseline (eating, bathing, dressing, toling, transfering, toileting) cooks and help sort/administer pills All Doxycycline Shell-fish Med See BROOK Present on Admission - Present on Admission Any Indicators Present on Admission: Yes Decubitus Ulcer Present: Yes Decubitus Ulcer Stage: I Past Patient History - Infectious Disease Hx of Infectious Diseases: None - Tetanus Immunizations Tetanus Immunization: Unknown - Past Medical History & Family History Past Medical History?: Yes - Past Social History Smoking Status: Former Smoker - CARDIAC Hx Cardiac Disorders: Yes (CAD s/p CABG) Hx Pacemaker: Yes - PULMONARY Hx Respiratory Disorders: No - NEUROLOGICAL Hx Neurological Disorder: No - HEENT Hx Cataracts: Yes (bilateral laser sx) - RENAL Hx Chronic Kidney Disease: Yes - ENDOCRINE/METABOLIC Hx Diabetes Mellitus Type 2: Yes - HEMATOLOGICAL/ONCOLOGICAL Hx Blood Transfusions: No Hx Blood Transfusion Reaction: No - INTEGUMENTARY Other/Comment: STage 3 sacral ulcers. BLE redness w/ scattered scabs. Under breasts folds redness. Bilateral under belly Folds redness skin excoriated - MUSCULOSKELETAL/RHEUMATOLOGICAL Hx Arthritis: Yes - GASTROINTESTINAL Hx Gastrointestinal Disorders: Yes (umbilical hernia) Hx Ileostomy: Yes (s/p ischemic colitis) - GENITOURINARY/GYNECOLOGICAL Hx Reproductive Disorders: No - PSYCHIATRIC Hx Psychophysiologic Disorder: No Hx Substance Use: No - SURGICAL HISTORY Hx Abdominal Aortic Aneurysm Repair: Yes Hx Eye Surgery: Yes (Cataracts laser) - ANESTHESIA Hx Anesthesia: Yes Hx Anesthesia Reactions: No Hx Malignant Hyperthermia: No Meds Allergies/Adverse Reactions: Allergies Allergy/AdvReac Type Severity Reaction Status Date / Time amoxicillin [From Augmentin] Allergy ANAPHYLAXIS Verified 07/29/18 20:50 clavulanic acid Allergy ANAPHYLAXIS Verified 07/29/18 20:50 [From Augmentin] doxycycline Allergy ANAPHYLAXIS Verified 04/29/18 21:11 shellfish derived Allergy ANAPHYLAXIS Verified 04/29/18 21:11 Physical Exam - Constitutional Appears: No Acute Distress - Head Exam Head Exam: ATRAUMATIC, NORMAL INSPECTION, NORMOCEPHALIC - Eye Exam Eye Exam: EOMI, Normal appearance, PERRL. absent: Scleral icterus Pupil Exam: NORMAL ACCOMODATION - ENT Exam ENT Exam: Mucous Membranes Moist - Neck Exam Additional comments: (+) JVD distention - Respiratory Exam Respiratory Exam: Decreased Breath Sounds (RLL with mild E-A egophony), Clear to Auscultation Bilateral, Rales (b/l lung bases). absent: Rhonchi, Wheezes - Cardiovascular Exam Cardiovascular Exam: REGULAR RHYTHM, +S1, +S2 - GI/Abdominal Exam GI & Abdominal Exam: Normal Bowel Sounds, Soft. absent: Tenderness Additional comments: (+) hernia; (+) colostomy intact, no leakage/erythema - Extremities Exam Extremities exam: Positive for: pedal edema (mild 1+ pitting), pedal pulses present (barely able to palpate b/l; (+) stasis dermatitis; L toes #1-2 amputation, healed well. Dressing at bottom L foot d/c/i). Negative for: calf tenderness, tenderness - Back Exam Back exam: absent: CVA tenderness (L), CVA tenderness (R), paraspinal tenderness Additional comments: (+) 4 inch x 4 inch, erythema sacral, stage 1 - Neurological Exam Neurological exam: Alert, CN II-XII Intact, Oriented x3 Additional comments: No slurred speech Move all extremities equally sensation and motor grossly intact - Psychiatric Exam Psychiatric exam: Normal Affect, Normal Mood - Skin Skin Exam: Dry, Warm Results - Vital Signs Recent Vital Signs: Last Vital Signs Temp 98.3 F 07/29/18 16:39 Pulse 67 07/29/18 16:39 Resp 18 07/29/18 16:39 BP 138/85 07/29/18 19:30 Pulse Ox 100 07/29/18 16:39 - Labs Result Diagrams: 07/29/18 17:30 07/29/18 17:30 Labs: Laboratory Results - last 24 hr 07/29/18 07/29/18 07/29/18 17:30 17:30 17:30 WBC 8.5 RBC 3.67 Hgb 11.3 L Hct 34.9 L MCV 95.1 MCH 30.8 MCHC 32.4 RDW 14.6 H Plt Count 205 MPV 8.8 Gran % 77.9 H Lymph % (Auto) 12.3 L Cooper % (Auto) 7.8 H Eos % (Auto) 1.8 Baso % (Auto) 0.2 Gran # 6.61 H Lymph # (Auto) 1.0 L Cooper # (Auto) 0.7 H Eos # (Auto) 0.2 Baso # (Auto) 0.02 PT 14.3 H INR 1.25 APTT 35.1 D-Dimer, Quantitative 1478 H pO2 48 VBG pH 7.31 L VBG pCO2 48.0 VBG HCO3 24.2 VBG Total CO2 25.7 VBG O2 Sat (Calc) 83.1 H VBG Base Excess -2.5 L VBG Potassium 3.8 Sodium 132.0 Chloride 101.0 Glucose 125 H Lactate 1.2 FiO2 21.0 Potassium Carbon Dioxide Anion Gap BUN Creatinine Est GFR ( Amer) Est GFR (Non-Af Amer) Random Glucose Calcium Magnesium Total Bilirubin AST ALT Alkaline Phosphatase Lactate Dehydrogenase Total Creatine Kinase Troponin I NT-Pro-B Natriuret Pep Total Protein Albumin Globulin Albumin/Globulin Ratio Venous Blood Potassium 3.8 07/29/18 17:30 WBC RBC Hgb Hct MCV MCH MCHC RDW Plt Count MPV Gran % Lymph % (Auto) Cooper % (Auto) Eos % (Auto) Baso % (Auto) Gran # Lymph # (Auto) Cooper # (Auto) Eos # (Auto) Baso # (Auto) PT INR APTT D-Dimer, Quantitative pO2 VBG pH VBG pCO2 VBG HCO3 VBG Total CO2 VBG O2 Sat (Calc) VBG Base Excess VBG Potassium Sodium 133 Chloride 100 Glucose Lactate FiO2 Potassium 3.9 Carbon Dioxide 24 Anion Gap 13 BUN 52 H Creatinine 1.8 H Est GFR ( Amer) 33 Est GFR (Non-Af Amer) 28 Random Glucose 118 H Calcium 8.4 Magnesium 2.3 H Total Bilirubin 0.3 AST 27 ALT 25 Alkaline Phosphatase 91 Lactate Dehydrogenase 519 Total Creatine Kinase 127 Troponin I 0.02 D NT-Pro-B Natriuret Pep 28922 H Total Protein 6.4 Albumin 3.6 Globulin 2.9 Albumin/Globulin Ratio 1.3 Venous Blood Potassium Assessment & Plan - Assessment and Plan (Free Text) Plan: Ms Min, 73 F, with PMH CAD s/p CABG & AICD, systolic CHF (EF 30s, 2017, RVSP 24) with End-staged dilated cardiomyopathy s/p IV home inotropic therapy, diabetes with L toe amputation, AAA repair, colostomy s/p colectomy due to ischemic colitis, CKD stage 4, and chronic ataxia with DJD, admitted for sudden worsening of generalized weakness, difficulty ambulating, community acquired pneumonia, possibly systolic CHF exacerbation. In the ED, VS stable. No leukocytosis. lactate 1.2. CXR showed RLL infiltrates likely Pneumonia. EKG showed NSR @65, TWI @ lateral inferior leads, with QTc 475. D-dimer 1478 but negative b/l LLE doppler, which had ruled out PE/DVT Community acquired pneumina (CURB-65: 2/5 for age and BUN > 20) Questionable amoxicillin allergy Doxycyclin allergy QT prolong at 475 - S/p 1 dose of rocephin and azithromycin in ED with no adverse reaction. Pt's hushand endorsed that pt became very sick last time on these abx, and Dr Flannery advised not to use augmentin/doxy. ID consult for possibly switch to levoquine. If ID wants to continue rocephin/azithromycin, next dose due at Sunday 18:00. - Blood cx and urine cx to r/o other sources of infection because pt has a chronic port - pending procalc CHF exacerbation, systolic - Got lasix 40 IVx1 in ED - Telemetry; EKG has no sig changes compared to the one in February - strict i/o; daily wt - Increase lasix to 40IV BID. Monitor K, Na, and Bun/Cre - For CAD, Continue home ASA, isosorbide, metoprolol, statin - For LE edema, continue home metolazine Worsening of LE strength & gait dysfunction likely due to infection and deconditioning - physical and occupational therapy - may need podiatry to clarify wt bearing status due to chronic L foot wound Chronic sacral ulcer, leg wound (possibly due to sub-optimal circulation), and colostomy - Wound care referral - Podiatry counsult - Turn Q2 DM - A1C, continue home insulin NPH 6 BID and inulin 6 ACHS with sliding scale coverage. Accucheck CKD stage 4 - at baseline. Continue to trend BUN/Cre Stage 1 scral ulcer - turn q2, multivitamin chronic anemia at baseline Hb 10-11, asymptomatic - continue to observe. Consider outpatient work-up Essential tremor - continue home primidone Prophylaxis - protonix, heparin SC s/r/d/w Dr Kelley
--- NOTE | 2018-07-29 19:46 | US ---
HISTORY: Leg pain and swelling. Evaluate for DVT PHYSICIAN(S): Vinnie Sarmiento MD. TECHNIQUE: Duplex sonography and color-flow Doppler with graded compression were used to evaluate the deep venous systems of both lower extremities. The exam is somewhat limited by edema FINDINGS: The visualized deep venous systems of both lower extremities are sonographically normal and compressible. Normal wave forms and augmentation are seen. There is no sonographic evidence for deep venous thrombosis in the visualized segments of both lower extremities. IMPRESSION: No sonographic evidence for deep venous thrombosis in the visualized segments of both lower extremities.
--- NOTE | 2018-07-29 20:41 | CARD ---
APPROVED REPORT Date of service: 07/29/2018 EKG Measurement Heart [id number] <Conclusion> Normal sinus rhythm ST & T wave abnormality, consider inferolateral ischemia Prolonged QT Abnormal ECG
[2018-07-29 21:15] LABS: URINE BILIRUBIN NEGATIVE (NEGATIVE); URINE BLOOD LARGE (NEGATIVE); URINE GLUCOSE (UA) NEGATIVE (NEGATIVE); URINE LEUKOCYTE ESTERASE TRACE Leu/uL (NEGATIVE); URINE PROTEIN 100 mg/dL (<30 mg/dL); URINE UROBILINOGEN 0.2 E.U./dL (<1 E.U./dL)
[2018-07-29 21:21] LABS: URINE APPEARANCE CLEAR (CLEAR); URINE COLOR LIGHT YELLOW (YELLOW)
[2018-07-29 21:41] LABS: URINE EPITHELIAL CELLS 0 - 2 /hpf (0-5); URINE WBC 0 - 2 /hpf (0-6)
[2018-07-29 21:42] LABS: URINE BACTERIA NEG (NEG)
[2018-07-29] MEDS: Insulin Lispro (humaLOG) LOW Coverage SC SCH (22:30)
[2018-07-29] MEDS: Aztreonam 1 Gm in NS 100mL 100 ML IVPB SCH (23:00)
[2018-07-30] MEDS: Linezolid 600 mg in D5W 300 ml 600 MG/300 ML BAG IVPB SCH ×3 (01:26→21:30)
[2018-07-30] MEDS ORDERED: Morphine 2 mg/ml ISec IM STA (02:00)
[2018-07-30] MEDS ORDERED: Morphine 2 mg/ml ISec IVP STA (02:01)
[2018-07-30] MEDS: Insulin Reg-MEDIUM-Coverage SC SCH ×3 (02:08→12:38)
[2018-07-30 05:04] VITALS: BMI 29.4
[2018-07-30] MEDS: Pantoprazole 40 mg EC Tab PO SCH (05:46)
[2018-07-30 06:35] LABS: BASO # 0.02 K/mm3 (0.0-2.0); BASO % 0.2 % (0.0-3.0); EOS # 0.1 (0.0-0.7); EOS % 0.5 % (1.5-5.0); GRAN # 10.46 (1.4-6.5); GRAN % 90.4 % (50.0-68.0); HEMOGLOBIN 11.8 g/dL (12.0-16.0); LYMPH # 0.5 (1.2-3.4); LYMPH % 4.1 % (22.0-35.0); MEAN CELL VOLUME 94.6 fl (80.0-105.0); MEAN CORPUSCULAR HEMOGLOBIN 30.5 pg (25.0-35.0); MEAN CORPUSCULAR HGB CONC 32.2 g/dl (31.0-37.0); MONO # 0.6 (0.1-0.6); MONO % 4.8 % (1.0-6.0); PLATELET COUNT 215 10^3/uL (120.0-450.0); RBC 3.87 10^6/uL (3.5-6.1); RED CELL DISTRIBUTION WIDTH 14.5 % (11.5-14.5); WHITE BLOOD COUNT 11.6 10^3/ul (4.5-11.0)
[2018-07-30 07:24] LABS: ALB/GLOB RATIO 1.2 (1.1-1.8); ALBUMIN 3.6 g/dL (3.0-4.8); CALCIUM 8.6 mg/dL (8.4-10.5)
[2018-07-30] MEDS: Insulin Lispro (humaLOG) LOW Coverage SC SCH ×2 (08:21→12:39)
[2018-07-30] MEDS: Milrinone 20mg/100ml D5W 100 ML IV PRN ×2 (08:27→18:04)
[2018-07-30 08:32] LABS: EOSINOPHIL 1 % (0.0-3.0); LYMPHOCYTE 1 % (22.0-35.0); MONOCYTE 4 % (1.0-6.0); NEUTROPHIL 95 % (50.0-70.0)
[2018-07-30 08:33] LABS: OVALOCYTES SLIGHT; PLATELET ESTIMATE NORMAL (NORMAL)
[2018-07-30] MEDS ORDERED: Primacor 1 mg/ml Inj (10 ml) IVP ONE (09:00)
[2018-07-30] MEDS: Multivitamin Therapeutic Tab PO SCH (09:58)
[2018-07-30] MEDS: Cholecalciferol 1,000 INTLU TAB PO SCH (09:58)
[2018-07-30] MEDS: Aztreonam 1 Gm in NS 100mL 100 ML IVPB SCH ×2 (09:59→21:30)
[2018-07-30] MEDS: metOLazone 2.5 MG TAB PO SCH (09:59)
[2018-07-30] MEDS ORDERED: Insulin Human NPH 1 UNITS/0.01 ML SC SCH (10:00)
--- NOTE | 2018-07-30 13:08 | CP.PCM.CON ---
History of Present Illness - History of Present Illness History of Present Illness: Podiatry Consult Note for Dr. Cortés: 73 yo female patient, with PMHx of CAD, cardiomyopathy, CHF with pacemaker placement, DM, CKD stage 4, seen and evaluated, for left foot pain. Patient is resting in bed comfortably and in NAD. She states she is a regular patient of Dr. Cortés. She notes that she has been having pain to the left heel while she lays in bed and also to the left bottom of her big toe. Patient denies any other pedal complaints at this time. Denies N/V/F/SOB/CP PMHx: CAD, cardiomyopathy, CHF with pacemaker placement, DM, CKD stage 4 ALL: Amoxicillin, Clavulanic acid, Doxycycline, Shellfish SHx: Former tobacco use Review of Systems - Review of Systems Review of Systems: As per HPI Past Patient History - Infectious Disease Hx of Infectious Diseases: None - Tetanus Immunizations Tetanus Immunization: Unknown - Past Medical History & Family History Past Medical History?: Yes - Past Social History Smoking Status: Former Smoker - CARDIAC Hx Cardiac Disorders: Yes (CAD s/p CABG, AICD, AAA repair,) Hx Congestive Heart Failure: Yes (Systolic CHF with end stage dilated cardiomyopathy) - PULMONARY Hx Respiratory Disorders: No - NEUROLOGICAL Hx Neurological Disorder: No - HEENT Hx Cataracts: Yes (bilateral laser sx) - RENAL Hx Chronic Kidney Disease: Yes - ENDOCRINE/METABOLIC Hx Diabetes Mellitus Type 2: Yes - HEMATOLOGICAL/ONCOLOGICAL Hx Blood Transfusions: No Hx Blood Transfusion Reaction: No - INTEGUMENTARY Other/Comment: STage 3 sacral ulcers. BLE redness w/ scattered scabs. Under b reasts folds redness. Bilateral under belly Folds redness skin excoriated - MUSCULOSKELETAL/RHEUMATOLOGICAL Hx Arthritis: Yes - GASTROINTESTINAL Hx Gastrointestinal Disorders: Yes (umbilical hernia) Hx Ileostomy: Yes (s/p ischemic colitis) - GENITOURINARY/GYNECOLOGICAL Hx Reproductive Disorders: No - PSYCHIATRIC Hx Psychophysiologic Disorder: No Hx Substance Use: No - SURGICAL HISTORY Hx Abdominal Aortic Aneurysm Repair: Yes Hx Eye Surgery: Yes (Cataracts laser) - ANESTHESIA Hx Anesthesia: Yes Hx Anesthesia Reactions: No Hx Malignant Hyperthermia: No Meds Allergies/Adverse Reactions: Allergies Allergy/AdvReac Type Severity Reaction Status Date / Time amoxicillin [From Augmentin] Allergy ANAPHYLAXIS Verified 07/29/18 20:50 clavulanic acid Allergy ANAPHYLAXIS Verified 07/29/18 20:50 [From Augmentin] doxycycline Allergy ANAPHYLAXIS Verified 04/29/18 21:11 shellfish derived Allergy ANAPHYLAXIS Verified 04/29/18 21:11 - Medications Medications: Current Medications Ascorbic Acid (Vitamin C 500 Mg Tab) 500 mg PO DAILY [facility] Last Admin: 07/30/18 09:59 Dose: 500 mg Aspirin (Ecotrin) 81 mg PO DAILY [facility] Last Admin: 07/30/18 09:58 Dose: 81 mg Atorvastatin Calcium (Lipitor) 10 mg PO DIN [facility] Cholecalciferol (Vitamin D) 1,000 intlu PO DAILY [facility] Last Admin: 07/30/18 09:58 Dose: 1,000 intlu Cyanocobalamin (Vitamin B12 1000 Mcg Tab) 1,000 mcg PO BID [facility] Last Admin: 07/30/18 09:58 Dose: 1,000 mcg Furosemide (Lasix) 40 mg IVP BID [facility] Last Admin: 07/30/18 09:58 Dose: 40 mg Heparin Sodium (Porcine) (Heparin) 5,000 units SC Q8 [facility]; Protocol Last Admin: 07/30/18 05:46 Dose: Not Given Aztreonam (Azactam 1 Gm) 100 mls @ 100 mls/hr IVPB Q12 [facility]; Protocol Stop: 08/05/18 22:01 Last Admin: 07/30/18 09:59 Dose: 100 mls/hr Linezolid (Zyvox 600mg/300ml D5w) 600 mg in 300 mls @ 200 mls/hr IVPB Q12 [facility]; Protocol Stop: 08/05/18 23:46 Last Admin: 07/30/18 01:26 Dose: 200 mls/hr Milrinone Lactate/Dextrose (Primacor 20mg/100ml D5w) 100 mls @ 9.338 mls/hr IV .[id number] PRN; Protocol PRN Reason: TITRATE PER MD ORDER Last Admin: 07/30/18 08:27 Dose: 0.375 mcg/kg/min, 9.338 mls/hr Insulin Human Regular (Humulin R Low) 0 units SC ACHS [facility]; Protocol Isosorbide Mononitrate (Imdur) 60 mg PO DAILY [facility] Last Admin: 07/30/18 09:58 Dose: 60 mg Metolazone (Zaroxolyn) 2.5 mg PO DAILY [facility] Last Admin: 07/30/18 09:59 Dose: 2.5 mg Metoprolol Tartrate (Lopressor) 100 mg PO BRKDIN [facility] Last Admin: 07/30/18 08:27 Dose: 100 mg Multivitamins (Thera Tab) 1 tab PO DAILY [facility] Last Admin: 07/30/18 09:58 Dose: 1 tab Pantoprazole Sodium (Protonix Ec Tab) 40 mg PO 0600 [facility] Last Admin: 07/30/18 05:46 Dose: 40 mg Primidone (Mysoline) 50 mg PO HS [facility] Last Admin: 07/29/18 23:00 Dose: 50 mg Physical Exam - Constitutional Appears: Well, Non-toxic, No Acute Distress - Head Exam Head Exam: ATRAUMATIC, NORMOCEPHALIC - Extremities Exam Additional comments: Lower extremity focused exam: Vasc: DP 1/4, PT 1/4 bilaterally. CFT <3 seconds to digits, temperature gradient warm to cool, mild edema noted circumfrentially to legs bilaterally Ortho: Partial left hallux amputation and second digit amputation. Rigid hammertoe contractures to lesser digits on the R foot. Tenderness to palpation of left heel Neuro: Gross sensation intact, protective sensation diminished Derm: Left plantar submetatarsal head 1 ulceration noted, purulence noted, macerated serafin-wound, does not probe to bone, granular base, no malodor, no tunneling or tracking noted. No cellulitis or erythema noted. Hyperpigmentation noted to anterior aspect of legs bilaterally. Previous anterior leg wound with scab noted in place. Friable skin noted to left plantar heel. - Neurological Exam Neurological exam: Alert, Oriented x3 - Psychiatric Exam Psychiatric exam: Normal Affect, Normal Mood Results - Vital Signs Recent Vital Signs: Last Vital Signs Temp 99 F 07/30/18 12:00 Pulse 78 07/30/18 12:00 Resp 18 07/30/18 12:00 BP 114/54 L 07/30/18 12:00 Pulse Ox 97 07/30/18 06:00 - Labs Result Diagrams: 07/30/18 06:00 07/30/18 06:00 Labs: Laboratory Results - last 24 hr 07/29/18 07/29/18 07/29/18 17:30 17:30 17:30 WBC 8.5 RBC 3.67 Hgb 11.3 L Hct 34.9 L MCV 95.1 MCH 30.8 MCHC 32.4 RDW 14.6 H Plt Count 205 MPV 8.8 Gran % 77.9 H Lymph % (Auto) 12.3 L Garden % (Auto) 7.8 H Eos % (Auto) 1.8 Baso % (Auto) 0.2 Gran # 6.61 H Lymph # (Auto) 1.0 L [place] # (Auto) 0.7 H Eos # (Auto) 0.2 Baso # (Auto) 0.02 Neutrophils % (Manual) Lymphocytes % (Manual) Monocytes % (Manual) Eosinophils % (Manual) Platelet Evaluation Ovalocytes PT 14.3 H INR 1.25 APTT 35.1 D-Dimer, Quantitative 1478 H pO2 48 VBG pH 7.31 L VBG pCO2 48.0 VBG HCO3 24.2 VBG Total CO2 25.7 VBG O2 Sat (Calc) 83.1 H VBG Base Excess -2.5 L VBG Potassium 3.8 Sodium 132.0 Chloride 101.0 Glucose 125 H Lactate 1.2 FiO2 21.0 Potassium Carbon Dioxide Anion Gap BUN Creatinine Est GFR ( Amer) Est GFR (Non-Af Amer) POC Glucose (mg/dL) Random Glucose Calcium Magnesium Total Bilirubin AST ALT Alkaline Phosphatase Lactate Dehydrogenase Total Creatine Kinase Troponin I NT-Pro-B Natriuret Pep Total Protein Albumin Globulin Albumin/Globulin Ratio Procalcitonin Venous Blood Potassium 3.8 Urine Color Urine Appearance Urine pH Ur Specific [place] Urine Protein Urine Glucose (UA) Urine Ketones Urine Blood Urine Nitrate Urine Bilirubin Urine Urobilinogen Ur Leukocyte Esterase Urine RBC Urine WBC Ur Epithelial Cells Urine Bacteria 07/29/18 07/29/18 07/29/18 17:30 19:37 22:10 WBC RBC Hgb Hct MCV MCH MCHC RDW Plt Count MPV Gran % Lymph % (Auto) Garden % (Auto) Eos % (Auto) Baso % (Auto) Gran # Lymph # (Auto) [place] # (Auto) Eos # (Auto) Baso # (Auto) Neutrophils % (Manual) Lymphocytes % (Manual) Monocytes % (Manual) Eosinophils % (Manual) Platelet Evaluation Ovalocytes PT INR APTT D-Dimer, Quantitative pO2 VBG pH VBG pCO2 VBG HCO3 VBG Total CO2 VBG O2 Sat (Calc) VBG Base Excess VBG Potassium Sodium 133 Chloride 100 Glucose Lactate FiO2 Potassium 3.9 Carbon Dioxide 24 Anion Gap 13 BUN 52 H Creatinine 1.8 H Est GFR ( Amer) 33 Est GFR (Non-Af Amer) 28 POC Glucose (mg/dL) 92 Random Glucose 118 H Calcium 8.4 Magnesium 2.3 H Total Bilirubin 0.3 AST 27 ALT 25 Alkaline Phosphatase 91 Lactate Dehydrogenase 519 Total Creatine Kinase 127 Troponin I 0.02 D NT-Pro-B Natriuret Pep 92666 H Total Protein 6.4 Albumin 3.6 Globulin 2.9 Albumin/Globulin Ratio 1.3 Procalcitonin Venous Blood Potassium Urine Color Light yellow Urine Appearance Clear Urine pH 6.0 Ur Specific [place] 1.015 Urine Protein 100 H Urine Glucose (UA) Negative Urine Ketones Negative Urine Blood Large H Urine Nitrate Negative Urine Bilirubin Negative Urine Urobilinogen 0.2 Ur Leukocyte Esterase Trace H Urine RBC 2 - 5 Urine WBC 0 - 2 Ur Epithelial Cells 0 - 2 Urine Bacteria Neg 07/30/18 07/30/18 07/30/18 06:00 06:00 06:00 WBC 11.6 H D RBC 3.87 Hgb 11.8 L Hct 36.6 MCV 94.6 MCH 30.5 MCHC 32.2 RDW 14.5 Plt Count 215 MPV 9.0 Gran % 90.4 H Lymph % (Auto) 4.1 L [place] % (Auto) 4.8 Eos % (Auto) 0.5 L Baso % (Auto) 0.2 Gran # 10.46 H Lymph # (Auto) 0.5 L [place] # (Auto) 0.6 Eos # (Auto) 0.1 Baso # (Auto) 0.02 Neutrophils % (Manual) 95 H Lymphocytes % (Manual) 1 L Monocytes % (Manual) 4 Eosinophils % (Manual) 1 Platelet Evaluation Normal Ovalocytes Slight PT INR APTT D-Dimer, Quantitative pO2 VBG pH VBG pCO2 VBG HCO3 VBG Total CO2 VBG O2 Sat (Calc) VBG Base Excess VBG Potassium Sodium 133 Chloride 99 Glucose Lactate FiO2 Potassium 3.6 Carbon Dioxide 23 Anion Gap 15 BUN 48 H Creatinine 1.6 H Est GFR ( Amer) 38 Est GFR (Non-Af Amer) 32 POC Glucose (mg/dL) Random Glucose 160 H Calcium 8.6 Magnesium 2.0 Total Bilirubin 0.4 AST 29 ALT 17 Alkaline Phosphatase 100 Lactate Dehydrogenase Total Creatine Kinase Troponin I NT-Pro-B Natriuret Pep Total Protein 6.6 Albumin 3.6 Globulin 3.1 Albumin/Globulin Ratio 1.2 Procalcitonin 0.07 L Venous Blood Potassium Urine Color Urine Appearance Urine pH Ur Specific [place] Urine Protein Urine Glucose (UA) Urine Ketones Urine Blood Urine Nitrate Urine Bilirubin Urine Urobilinogen Ur Leukocyte Esterase Urine RBC Urine WBC Ur Epithelial Cells Urine Bacteria 07/30/18 07/30/18 08:12 11:24 WBC RBC Hgb Hct MCV MCH MCHC RDW Plt Count MPV Gran % Lymph % (Auto) [place] % (Auto) Eos % (Auto) Baso % (Auto) Gran # Lymph # (Auto) [place] # (Auto) Eos # (Auto) Baso # (Auto) Neutrophils % (Manual) Lymphocytes % (Manual) Monocytes % (Manual) Eosinophils % (Manual) Platelet Evaluation Ovalocytes PT INR APTT D-Dimer, Quantitative pO2 VBG pH VBG pCO2 VBG HCO3 VBG Total CO2 VBG O2 Sat (Calc) VBG Base Excess VBG Potassium Sodium Chloride Glucose Lactate FiO2 Potassium Carbon Dioxide Anion Gap BUN Creatinine Est GFR ( Amer) Est GFR (Non-Af Amer) POC Glucose (mg/dL) 140 H 190 H Random Glucose Calcium Magnesium Total Bilirubin AST ALT Alkaline Phosphatase Lactate Dehydrogenase Total Creatine Kinase Troponin I NT-Pro-B Natriuret Pep Total Protein Albumin Globulin Albumin/Globulin Ratio Procalcitonin Venous Blood Potassium Urine Color Urine Appearance Urine pH Ur Specific [place] Urine Protein Urine Glucose (UA) Urine Ketones Urine Blood Urine Nitrate Urine Bilirubin Urine Urobilinogen Ur Leukocyte Esterase Urine RBC Urine WBC Ur Epithelial Cells Urine Bacteria Assessment & Plan - Assessment and Plan (Free Text) Assessment: 73 yo female patient, with PMHx of CAD, cardiomyopathy, CHF with pacemaker placement, DM, CKD stage 4, seen and evaluated, for left submetatarsal 1 ulc eration Plan: Patient seen and evaluated at bedside Discussed in detail with Dr. Cortés Chart, labs, and vitals reviewed; afebrile, leukocytosis Sub met 1 hallux wound cultured; pending Wound cleansed and dressed with optifoam Multipodus boots ordered and patient encouraged to wear them at all times while in bed ID reccs appreciated Podiatry will continue to follow while in house Thank you for the consult - Date & Time Date: 07/30/18 Time: 13:12
[2018-07-30] MEDS: Insulin Reg-LOW-Coverage SC SCH ×2 (17:23→23:01)
--- NOTE | 2018-07-30 18:28 | CP.PCM.PN ---
<Tiffany Egan - Last Filed: 07/30/18 18:24> Subjective - Date & Time of Evaluation Date of Evaluation: 07/30/18 Time of Evaluation: 09:50 - Subjective Subjective: PGY-1 Tiffany Egan Medicine Progress Note for Dr. Pablo's service Patient seen and examined at bedside. She still complains of feeling fatigued, short of breath and right lower extremity pain worse than right. She also admits to orthopnea and using the bathroom more often due to being on Lasix. She otherwise denies any chest pain, fever, cough, chills, N/V/D. Objective - Vital Signs/Intake and Output Vital Signs (last 24 hours): Temp Pulse Resp BP Pulse Ox 97.8 F 79 18 109/60 97 07/30/18 17:53 07/30/18 18:04 07/30/18 17:53 07/30/18 18:04 07/30/18 06:00 Intake and Output: 07/30/18 07/30/18 06:59 18:59 Intake Total 360 610 Output Total 950 Balance -590 610 - Medications Medications: Current Medications Ascorbic Acid (Vitamin C 500 Mg Tab) 500 mg PO DAILY [facility] Last Admin: 07/30/18 09:59 Dose: 500 mg Aspirin (Ecotrin) 81 mg PO DAILY [facility] Last Admin: 07/30/18 09:58 Dose: 81 mg Atorvastatin Calcium (Lipitor) 10 mg PO DIN [facility] Last Admin: 07/30/18 17:28 Dose: 10 mg Cholecalciferol (Vitamin D) 1,000 intlu PO DAILY [facility] Last Admin: 07/30/18 09:58 Dose: 1,000 intlu Cyanocobalamin (Vitamin B12 1000 Mcg Tab) 1,000 mcg PO BID [facility] Last Admin: 07/30/18 17:28 Dose: 1,000 mcg Furosemide (Lasix) 40 mg IVP BID [facility] Last Admin: 07/30/18 17:28 Dose: 40 mg Heparin Sodium (Porcine) (Heparin) 5,000 units SC Q8 [facility]; Protocol Last Admin: 07/30/18 14:32 Dose: 5,000 units Aztreonam (Azactam 1 Gm) 100 mls @ 100 mls/hr IVPB Q12 [facility]; Protocol Stop: 08/05/18 22:01 Last Admin: 07/30/18 09:59 Dose: 100 mls/hr Linezolid (Zyvox 600mg/300ml D5w) 600 mg in 300 mls @ 200 mls/hr IVPB Q12 [facility]; Protocol Stop: 08/05/18 23:46 Last Admin: 07/30/18 14:32 Dose: 200 mls/hr Milrinone Lactate/Dextrose (Primacor 20mg/100ml D5w) 100 mls @ 9.338 mls/hr IV .[id number] PRN; Protocol PRN Reason: TITRATE PER MD ORDER Last Admin: 07/30/18 18:04 Dose: 0.375 mcg/kg/min, 9.338 mls/hr Insulin Human Regular (Humulin R Low) 0 units SC ACHS [facility]; Protocol Last Admin: 07/30/18 17:23 Dose: Not Given Isosorbide Mononitrate (Imdur) 60 mg PO DAILY [facility] Last Admin: 07/30/18 09:58 Dose: 60 mg Metolazone (Zaroxolyn) 2.5 mg PO DAILY [facility] Last Admin: 07/30/18 09:59 Dose: 2.5 mg Metoprolol Tartrate (Lopressor) 100 mg PO BRKDIN [facility] Last Admin: 07/30/18 17:28 Dose: 100 mg Multivitamins (Thera Tab) 1 tab PO DAILY [facility] Last Admin: 07/30/18 09:58 Dose: 1 tab Pantoprazole Sodium (Protonix Ec Tab) 40 mg PO 0600 [facility] Last Admin: 07/30/18 05:46 Dose: 40 mg Primidone (Mysoline) 50 mg PO HS [facility] Last Admin: 07/29/18 23:00 Dose: 50 mg - Labs Labs: 07/30/18 06:00 07/30/18 06:00 PT 14.3 SECONDS (9.4-12.5) H 07/29/18 17:30 INR 1.25 07/29/18 17:30 APTT 35.1 Seconds (25.1-36.5) 07/29/18 17:30 - Constitutional Appears: Non-toxic, No Acute Distress - Head Exam Head Exam: NORMAL INSPECTION, NORMOCEPHALIC - Eye Exam Eye Exam: EOMI, Normal appearance. absent: Nystagmus, Scleral icterus - ENT Exam ENT Exam: Mucous Membranes Moist - Respiratory Exam Respiratory Exam: Rales, NORMAL BREATHING PATTERN. absent: Accessory Muscle Use, Rhonchi, Wheezes, Respiratory Distress - Cardiovascular Exam Cardiovascular Exam: REGULAR RHYTHM, +S1, +S2 - GI/Abdominal Exam GI & Abdominal Exam: Soft, Normal Bowel Sounds. absent: Tenderness - Extremities Exam Extremities Exam: Normal Inspection, Pedal Edema. absent: Calf Tenderness - Back Exam Back Exam: NORMAL INSPECTION - Neurological Exam Neurological Exam: Alert, Awake, Oriented x3 - Psychiatric Exam Psychiatric exam: Normal Affect, Normal Mood - Skin Skin Exam: Intact, Normal Color Assessment and Plan - Assessment and Plan (Free Text) Assessment: Ms Min, 73 F, with PMH CAD s/p CABG & AICD, systolic CHF (EF 30s, 2017, RVSP 24) with End-staged dilated cardiomyopathy s/p IV home inotropic therapy, diabetes with L toe amputation, AAA repair, colostomy s/p colectomy due to ischemic colitis, CKD stage 4, and chronic ataxia with DJD, admitted for systolic CHF exacerbation and community acquired pneumonia. Plan: Acute Exacerbation of CHF Patient recieved got Lasix 40 IV x 1 in ED. Continue with Lasix 40 mg IV BID. Imdur 60mg po daily Strict I/O and daily weights Continue with Milrinone 20 mg/ 100 ml drip as per Cardio recc. Stop IV fluids. For CAD- continue ASA, isosorbide, metoprolol, statin For leg edema Left worse than right, continue with metolazone 2.5 mg Community acquired Pneumonia ID consulted- Dr. Trevino- appreciate recs S/p 1 dose of rocephin and azithromycin in ED with no adverse reaction. Continue on Azactam 1 gm IV q12h and Zyvox 600 mg IV q12h. Mild leukocytosis noted; afebrile Follow up on blood and urine culture to rule out other sources of infection as patient has a chronic port. Lower extremity weakness and gait dysfunction Podiatry to follow while in house ambulates with walker and assistance at home Left submetatarsal ulceration and stage 1 sacral ulcer Sub met 1 hallux wound cultured; pending, wound cleansed and dressed with optifoam. Awaiting ID recc. Multipodus boots ordered and patient encouraged to wear them at all times while in bed Turn Q2 DM ISS- low dose ACHS CKD Stage 4 Patient at baseline. Continue to trend BUN/Creat Chronic anemia Baseline Hgb of 11.8 and asymptomatic. Hemodynamically stable Essential tremor Continue home primidone Ppx: GI ppx- Protonix 40 mg qd DVT ppx- heparin 5000 C q8h <Sofía Pablo - Last Filed: 08/03/18 16:08> Objective - Vital Signs/Intake and Output Vital Signs (last 24 hours): Temp Pulse Resp BP Pulse Ox 98.1 F 97 H 18 146/83 97 08/03/18 12:00 08/03/18 12:00 08/03/18 12:00 08/03/18 12:00 08/03/18 05:38 Intake and Output: 08/03/18 08/03/18 06:59 18:59 Intake Total 540 Output Total 800 Balance -260 - Medications Medications: Current Medications Acetaminophen (Tylenol 325mg Tab) 650 mg PO Q6H PRN PRN Reason: Pain, Mild (1-3) Last Admin: 08/02/18 22:23 Dose: 650 mg Albuterol/Ipratropium (Duoneb 3 Mg/0.5 Mg (3 Ml) Ud) 3 ml IH [id number] PRN PRN Reason: Shortness of Breath Last Admin: 08/02/18 05:48 Dose: 3 ml Ascorbic Acid (Vitamin C 500 Mg Tab) 500 mg PO DAILY [facility] Last Admin: 08/03/18 10:14 Dose: 500 mg Aspirin (Ecotrin) 81 mg PO DAILY [facility] Last Admin: 08/03/18 10:14 Dose: 81 mg Atorvastatin Calcium (Lipitor) 10 mg PO DIN [facility] Last Admin: 08/02/18 17:40 Dose: 10 mg Calcium Carbonate (Oscal) 500 mg PO DAILY [facility] Last Admin: 08/03/18 10:14 Dose: 500 mg Cholecalciferol (Vitamin D) 1,000 intlu PO DAILY [facility] Last Admin: 08/03/18 10:14 Dose: 1,000 intlu Cyanocobalamin (Vitamin B12 1000 Mcg Tab) 1,000 mcg PO BID [facility] Last Admin: 08/03/18 10:14 Dose: 1,000 mcg Furosemide (Lasix) 40 mg PO BID [facility] Last Admin: 08/03/18 10:14 Dose: 40 mg Heparin Sodium (Porcine) (Heparin) 5,000 units SC Q8 [facility]; Protocol Last Admin: 08/03/18 14:31 Dose: Not Given Aztreonam (Azactam 1 Gm) 100 mls @ 100 mls/hr IVPB Q12 [facility]; Protocol Stop: 08/05/18 22:01 Last Admin: 08/03/18 10:07 Dose: 100 mls/hr Linezolid (Zyvox 600mg/300ml D5w) 600 mg in 300 mls @ 200 mls/hr IVPB Q12 [facility]; Protocol Stop: 08/05/18 23:46 Last Admin: 08/03/18 11:11 Dose: 200 mls/hr Insulin Human Regular (Humulin R Low) 0 units SC ACHS [facility]; Protocol Last Admin: 08/03/18 12:21 Dose: 2 unit Isosorbide Mononitrate (Imdur) 60 mg PO DAILY [facility] Last Admin: 08/03/18 10:14 Dose: 60 mg Lisinopril (Zestril) 5 mg PO DAILY [facility] Last Admin: 08/03/18 10:05 Dose: 5 mg Metolazone (Zaroxolyn) 5 mg PO DAILY [facility] Metoprolol Tartrate (Lopressor) 100 mg PO BRKDIN [facility] Last Admin: 08/03/18 08:04 Dose: 100 mg Multivitamins (Thera Tab) 1 tab PO DAILY [facility] Last Admin: 08/03/18 10:14 Dose: 1 tab Pantoprazole Sodium (Protonix Ec Tab) 40 mg PO 0600 [facility] Last Admin: 08/03/18 05:54 Dose: 40 mg Primidone (Mysoline) 50 mg PO HS [facility] Last Admin: 08/02/18 22:23 Dose: 50 mg Spironolactone (Aldactone) 25 mg PO DAILY [facility] Last Admin: 08/02/18 10:28 Dose: 25 mg - Labs Labs: 08/03/18 05:30 08/03/18 05:30 PT 14.3 SECONDS (9.4-12.5) H 07/29/18 17:30 INR 1.25 07/29/18 17:30 APTT 35.1 Seconds (25.1-36.5) 07/29/18 17:30 Attending/Attestation - Attestation I have personally seen and examined this patient.: Yes I have fully participated in the care of the patient.: Yes I have reviewed all pertinent clinical information, including history, physical exam and plan: Yes
[2018-07-31] MEDS: Milrinone 20mg/100ml D5W 100 ML IV PRN ×3 (02:02→22:06)
[2018-07-31] MEDS: Pantoprazole 40 mg EC Tab PO SCH (05:02)
--- NOTE | 2018-07-31 05:14 | CON ---
DATE: 07/30/2018 LOCATION: The patient was seen earlier this morning in 263, bed 1. CHIEF COMPLAINT: Shortness of breath, lower extremity edema and erythema times several days. HISTORY OF PRESENT ILLNESS: This is a 73-year-old female known to me from multiple admissions with coronary artery disease, cardiomyopathy, congestive heart failure, diabetes mellitus, history of Clostridium bacteremia, history of abdominal aortic aneurysm, chronic kidney disease, cataract, history of ischemic colitis requiring ileostomy, colectomy. The patient also had a left toe amputation and cholecystectomy, coronary bypass graft, pacemaker, who is admitted now with shortness of breath that is progressing with lower extremity edema and erythema, more so on the left than on right leg. No fevers, no chills. REVIEW OF SYSTEMS: Reveals no chest pain. There is shortness of breath. No hemoptysis. No abdominal pain, diarrhea or constipation. No dysuria or frequency. No headaches or blurred vision. A 12-point review of systems is performed. PAST MEDICAL HISTORY: Significant for cardiomyopathy, coronary artery disease, congestive heart failure, diabetes, Clostridium bacteremia, abdominal aortic aneurysm, chronic kidney disease, cataract, ischemic colitis. PAST SURGICAL HISTORY: Significant for coronary bypass graft, pacemaker, colectomy, ileostomy, umbilical hernia, left toe amputation and cholecystectomy. ALLERGIES: THE PATIENT IS ALLERGIC TO AMOXICILLIN, CLAVULANIC ACID, DOXYCYCLINE, SHELLFISH. MEDICATIONS AT HOME: Reviewed, include the patient to be on pravastatin, vitamins, insulin, isosorbide. PHYSICAL EXAMINATION: GENERAL: The patient is in bed, comfortable with mild shortness of breath, answered questions appropriately, awake and alert, oriented x3. VITAL SIGNS: With a temperature of 99; heart rate was 93, was up to 121 earlier; respiratory rate of 18, was up to 20; with a blood pressure of 109/60. HEENT: Examination of HEENT is unremarkable. NECK: Supple. LUNGS: Have decreased breath sounds. HEART: Normal S1, S2. ABDOMEN: Soft, nontender. No organomegaly. No rebound, no guarding, no masses. EXTREMITIES: Examination of lower extremities reveals bilateral edema and erythema on the left leg more than the right. No discharge. Chronic changes on top of acute changes. LABORATORY EXAMINATION: Reveals a white count of 8.5, hemoglobin of 11.6 and coagulation is noted. Chemistries reveals a BUN of 48, creatinine of 1.6, procalcitonin 0.07. Urinalysis is noted. BNP shows to be 32,900. Urinalysis is noted. Chest x-ray shows a right lower lobe infiltrate. ASSESSMENT AND PLAN: This 73-year-old female with coronary artery disease, cardiomyopathy, congestive heart failure, diabetes mellitus, abdominal aortic aneurysm, chronic kidney disease stage IV with cataract with ischemic colitis. 1. Acute systolic congestive heart failure on top of chronic congestive heart failure with a right community-acquired pneumonia and left lower leg cellulitis and multiple allergies. We will treat the patient with Zyvox and Azactam pending pancultures, blood, urine, sputum, methicillin-resistant Staphylococcus aureus screen, urine for Legionella antigen and we will make further recommendations upon availability of initial workup results and culture results and clinical response. José Luis Trevino MD
[2018-07-31 07:17] LABS: BASO # 0.01 K/mm3 (0.0-2.0); BASO % 0.1 % (0.0-3.0); EOS # 0.4 (0.0-0.7); EOS % 3.4 % (1.5-5.0); GRAN # 10.11 (1.4-6.5); GRAN % 80.9 % (50.0-68.0); HEMOGLOBIN 10.8 g/dL (12.0-16.0); LYMPH % 7.9 % (22.0-35.0); MEAN CELL VOLUME 94.8 fl (80.0-105.0); MEAN CORPUSCULAR HEMOGLOBIN 29.7 pg (25.0-35.0); MEAN CORPUSCULAR HGB CONC 31.3 g/dl (31.0-37.0); MEAN PLATELET VOLUME 9.4 fl (7.0-11.0); MONO % 7.7 % (1.0-6.0); RBC 3.64 10^6/uL (3.5-6.1); RED CELL DISTRIBUTION WIDTH 14.7 % (11.5-14.5); WHITE BLOOD COUNT 12.5 10^3/ul (4.5-11.0)
[2018-07-31 07:28] LABS: ALB/GLOB RATIO 1.2 (1.1-1.8); CALCIUM 7.9 mg/dL (8.4-10.5)
[2018-07-31] MEDS: Insulin Reg-LOW-Coverage SC SCH ×4 (08:26→21:40)
--- NOTE | 2018-07-31 08:26 | CON ---
DATE: 07/31/2018 CARDIOLOGY CONSULTATION HISTORY: The patient is a 73-year-old woman with history of end-stage dilated cardiomyopathy secondary to diffuse coronary artery disease, who presents with pedal edema as well as recurrent CHF. The patient's past medical history is notable for diabetes mellitus, multivessel PTCA, history of recurrent CHF, treated with home Primacor, which over the past several months has been stopped due to improvement of her LV function. Currently, the patient denies chest pain. She does admit to pedal edema. SOCIAL HISTORY: The patient does not smoke. REVIEW OF SYSTEMS: Fourteen-point review of systems is reviewed in detail. Erythema in the lower extremities and swelling are her primary concern as well as dyspnea. No angina. PHYSICAL EXAMINATION: VITAL SIGNS: Blood pressure is 113/68, the heart rate is in the 80s. NECK: Negative JVD. LUNGS: Crackles at the bases. HEART: Reveals S1, S2. II/ systolic ejection murmur. EXTREMITIES: Erythema as well as edema in the lower extremities. LABORATORY DATA: BUN and creatinine are 48 and 1.6, glucose is 172, hemoglobin is 11.8 with a white count of 11.6. IMPRESSION: 1. Acute systolic congestive heart failure. 2. End-stage ischemic dilated cardiomyopathy. 3. Multivessel coronary artery disease. 4. Cellulitis of the lower extremities. 5. Diabetes mellitus. 6. Dyspnea. 7. Renal insufficiency with a prerenal component. PLAN: Given these findings, we will continue on IV Primacor for the next 24-48 hours. IV antibiotics have been ordered. We will continue with the IV Lasix. Vinnie Vidales MD
[2018-07-31] MEDS: Multivitamin Therapeutic Tab PO SCH (09:38)
[2018-07-31] MEDS: Cholecalciferol 1,000 INTLU TAB PO SCH (09:38)
[2018-07-31] MEDS: Aztreonam 1 Gm in NS 100mL 100 ML IVPB SCH ×2 (09:38→21:00)
[2018-07-31] MEDS: metOLazone 2.5 MG TAB PO SCH (09:38)
[2018-07-31] MEDS: Linezolid 600 mg in D5W 300 ml 600 MG/300 ML BAG IVPB SCH ×2 (11:11→21:00)
--- NOTE | 2018-07-31 12:02 | CP.PCM.PN ---
Subjective - Date & Time of Evaluation Date of Evaluation: 07/31/18 Time of Evaluation: 11:59 - Subjective Subjective: Podiatry Progress Note for Dr. Cortés: 73 yo female patient, seen and evaluated, for left foot submet 1 ulceration. Patient is AAOx3 and in NAD. Patient admits to pain L > R in her heels. Patient denies any other pedal complaints at this time. Denies N/V/F. Objective - Vital Signs/Intake and Output Vital Signs (last 24 hours): Temp Pulse Resp BP Pulse Ox 98.0 F 73 19 125/65 99 07/31/18 06:00 07/31/18 11:48 07/31/18 06:00 07/31/18 11:48 07/31/18 06:00 Intake and Output: 07/31/18 07/31/18 06:59 18:59 Intake Total 1360 Output Total 1300 Balance 60 - Medications Medications: Current Medications Ascorbic Acid (Vitamin C 500 Mg Tab) 500 mg PO DAILY [facility] Last Admin: 07/31/18 09:38 Dose: 500 mg Aspirin (Ecotrin) 81 mg PO DAILY [facility] Last Admin: 07/31/18 09:38 Dose: 81 mg Atorvastatin Calcium (Lipitor) 10 mg PO DIN [facility] Last Admin: 07/30/18 17:28 Dose: 10 mg Cholecalciferol (Vitamin D) 1,000 intlu PO DAILY [facility] Last Admin: 07/31/18 09:38 Dose: 1,000 intlu Cyanocobalamin (Vitamin B12 1000 Mcg Tab) 1,000 mcg PO BID [facility] Last Admin: 07/31/18 09:38 Dose: 1,000 mcg Furosemide (Lasix) 40 mg IVP BID [facility] Last Admin: 07/31/18 09:37 Dose: 40 mg Heparin Sodium (Porcine) (Heparin) 5,000 units SC Q8 [facility]; Protocol Last Admin: 07/31/18 05:02 Dose: 5,000 units Aztreonam (Azactam 1 Gm) 100 mls @ 100 mls/hr IVPB Q12 [id number]; Protocol Stop: 08/05/18 22:01 Last Admin: 07/31/18 09:38 Dose: 100 mls/hr Linezolid (Zyvox 600mg/300ml D5w) 600 mg in 300 mls @ 200 mls/hr IVPB Q12 [facility]; Protocol Stop: 08/05/18 23:46 Last Admin: 07/31/18 11:11 Dose: 200 mls/hr Milrinone Lactate/Dextrose (Primacor 20mg/100ml D5w) 100 mls @ 9.338 mls/hr IV .[id number] PRN; Protocol PRN Reason: TITRATE PER MD ORDER Last Admin: 07/31/18 02:02 Dose: 0.375 mcg/kg/min, 9.338 mls/hr Insulin Human Regular (Humulin R Low) 0 units SC ACHS [facility]; Protocol Last Admin: 07/31/18 08:26 Dose: Not Given Isosorbide Mononitrate (Imdur) 60 mg PO DAILY [facility] Last Admin: 07/31/18 09:38 Dose: 60 mg Lisinopril (Zestril) 5 mg PO DAILY [facility] Last Admin: 07/31/18 11:48 Dose: 5 mg Metolazone (Zaroxolyn) 2.5 mg PO DAILY [facility] Last Admin: 07/31/18 09:38 Dose: 2.5 mg Metoprolol Tartrate (Lopressor) 100 mg PO BRKDIN [facility] Last Admin: 07/31/18 09:37 Dose: 100 mg Multivitamins (Thera Tab) 1 tab PO DAILY [facility] Last Admin: 07/31/18 09:38 Dose: 1 tab Pantoprazole Sodium (Protonix Ec Tab) 40 mg PO 0600 [facility] Last Admin: 07/31/18 05:02 Dose: 40 mg Primidone (Mysoline) 50 mg PO HS [facility] Last Admin: 07/30/18 21:31 Dose: 50 mg Spironolactone (Aldactone) 25 mg PO DAILY [facility] Last Admin: 07/31/18 11:44 Dose: 25 mg - Labs Labs: 07/31/18 06:30 07/31/18 06:30 PT 14.3 SECONDS (9.4-12.5) H 07/29/18 17:30 INR 1.25 07/29/18 17:30 APTT 35.1 Seconds (25.1-36.5) 07/29/18 17:30 - Constitutional Appears: Well, Non-toxic, No Acute Distress - Head Exam Head Exam: ATRAUMATIC, NORMOCEPHALIC - Extremities Exam Additional comments: Lower extremity focused exam: Vasc: DP 1/4, PT 1/4 bilaterally. CFT <3 seconds to digits, temperature gradient warm to cool, mild edema noted circumfrentially to legs bilaterally Ortho: Partial left hallux amputation and second digit amputation. Rigid hammertoe contractures to lesser digits on the R foot. Tenderness to palpation of left heel Neuro: Gross sensation intact, protective sensation diminished Derm: Left plantar submetatarsal head 1 ulceration noted, purulence noted, about 1/2 cc of purulence expressed, resolving macerated serafin-wound, does not probe to bone, granular base, no malodor, no tunneling or tracking noted. No cellulitis or erythema noted. Hyperpigmentation noted to anterior aspect of legs bilaterally. Friable skin noted to left plantar heel. - Neurological Exam Neurological Exam: Alert, Awake, Oriented x3 - Skin Skin Exam: Normal Color, Warm Assessment and Plan - Assessment and Plan (Free Text) Assessment: 73 yo female patient, seen and evaluated, for left submetatarsal 1 ulceration Plan: Patient seen and evaluated at bedside Discussed in detail with Dr. Cortés Chart, labs, and vitals reviewed; afebrile, leukocytosis L foot x-ray; ordered Sub met 1 hallux wound cultured; pending Purulence expressed from wound, wound cleansed with saline and dressed with optifoam Multipodus boots worn by patient; patient to wear them at all times while in bed to prevent heel breakdown Antibiotics per ID reccs; Zyvox and Azactam Podiatry will continue to follow while in house
[2018-07-31] MEDS ORDERED: Potassium Chloride 20 mEq ER Tab PO STA (13:03)
--- NOTE | 2018-07-31 14:53 | RAD ---
Date of service: 07/31/2018 PROCEDURE: Left Foot Radiographs. HISTORY: foot ulcer COMPARISON: None. FINDINGS: BONES: Previous amputations of the 1st and 2nd toes. Chronic appearing fractures of the medial and lateral malleolus. No evidence of osteomyelitis JOINTS: Normal. SOFT TISSUES: Normal. OTHER FINDINGS: None. IMPRESSION: No evidence of osteomyelitis
--- NOTE | 2018-07-31 15:43 | CP.PCM.PN ---
<Tiffany Egan - Last Filed: 07/31/18 15:40> Subjective - Date & Time of Evaluation Date of Evaluation: 07/31/18 Time of Evaluation: 10:20 - Subjective Subjective: PGY-1 Tiffany Egan Medicine Progress Note for Dr. Pablo's service Patient seen and examined at bedside. She states she feels much better today-she is less fatigued, less short of breath, but still complains of pain in her right leg worse than left. Yesterday, patient received tramadol for her leg pain, which somewhat alleviated her pain. She still admits to orthopnea and using the bathroom more often due to being on Lasix. She otherwise denies any chest pain, fever, cough, chills, N/V/D, fevers, or dysuria. Objective - Vital Signs/Intake and Output Vital Signs (last 24 hours): Temp Pulse Resp BP Pulse Ox 97.5 F L 77 19 137/74 97 07/31/18 12:00 07/31/18 14:00 07/31/18 12:00 07/31/18 12:00 07/31/18 13:40 Intake and Output: 07/31/18 07/31/18 06:59 18:59 Intake Total 1360 100 Output Total 1300 Balance 60 100 - Medications Medications: Current Medications Ascorbic Acid (Vitamin C 500 Mg Tab) 500 mg PO DAILY [facility] Last Admin: 07/31/18 09:38 Dose: 500 mg Aspirin (Ecotrin) 81 mg PO DAILY [facility] Last Admin: 07/31/18 09:38 Dose: 81 mg Atorvastatin Calcium (Lipitor) 10 mg PO DIN [facility] Last Admin: 07/30/18 17:28 Dose: 10 mg Cholecalciferol (Vitamin D) 1,000 intlu PO DAILY [facility] Last Admin: 07/31/18 09:38 Dose: 1,000 intlu Cyanocobalamin (Vitamin B12 1000 Mcg Tab) 1,000 mcg PO BID [facility] Last Admin: 07/31/18 09:38 Dose: 1,000 mcg Furosemide (Lasix) 40 mg IVP BID [facility] Last Admin: 07/31/18 09:37 Dose: 40 mg Heparin Sodium (Porcine) (Heparin) 5,000 units SC Q8 [facility]; Protocol Last Admin: 07/31/18 13:31 Dose: 5,000 units Aztreonam (Azactam 1 Gm) 100 mls @ 100 mls/hr IVPB Q12 [facility]; Protocol Stop: 08/05/18 22:01 Last Admin: 07/31/18 09:38 Dose: 100 mls/hr Linezolid (Zyvox 600mg/300ml D5w) 600 mg in 300 mls @ 200 mls/hr IVPB Q12 [facility]; Protocol Stop: 08/05/18 23:46 Last Admin: 07/31/18 11:11 Dose: 200 mls/hr Milrinone Lactate/Dextrose (Primacor 20mg/100ml D5w) 100 mls @ 9.338 mls/hr IV .[id number] PRN; Protocol PRN Reason: TITRATE PER MD ORDER Last Admin: 07/31/18 13:31 Dose: 0.375 mcg/kg/min, 9.338 mls/hr Insulin Human Regular (Humulin R Low) 0 units SC ACHS [facility]; Protocol Last Admin: 07/31/18 15:25 Dose: 1 unit Isosorbide Mononitrate (Imdur) 60 mg PO DAILY [facility] Last Admin: 07/31/18 09:38 Dose: 60 mg Lisinopril (Zestril) 5 mg PO DAILY [facility] Last Admin: 07/31/18 11:48 Dose: 5 mg Metolazone (Zaroxolyn) 2.5 mg PO DAILY [facility] Last Admin: 07/31/18 09:38 Dose: 2.5 mg Metoprolol Tartrate (Lopressor) 100 mg PO BRKDIN [facility] Last Admin: 07/31/18 09:37 Dose: 100 mg Multivitamins (Thera Tab) 1 tab PO DAILY [facility] Last Admin: 07/31/18 09:38 Dose: 1 tab Pantoprazole Sodium (Protonix Ec Tab) 40 mg PO 0600 [facility] Last Admin: 07/31/18 05:02 Dose: 40 mg Primidone (Mysoline) 50 mg PO HS [facility] Last Admin: 07/30/18 21:31 Dose: 50 mg Spironolactone (Aldactone) 25 mg PO DAILY [facility] Last Admin: 07/31/18 11:44 Dose: 25 mg - Labs Labs: 07/31/18 06:30 07/31/18 06:30 PT 14.3 SECONDS (9.4-12.5) H 07/29/18 17:30 INR 1.25 07/29/18 17:30 APTT 35.1 Seconds (25.1-36.5) 07/29/18 17:30 - Constitutional Appears: Non-toxic, No Acute Distress - Eye Exam Eye Exam: EOMI, Normal appearance. absent: Nystagmus, Scleral icterus - Respiratory Exam Respiratory Exam: Clear to Ausculation Bilateral, NORMAL BREATHING PATTERN. absent: Rales, Rhonchi, Wheezes - Cardiovascular Exam Cardiovascular Exam: REGULAR RHYTHM, +S1, +S2. absent: JVD - GI/Abdominal Exam GI & Abdominal Exam: Soft, Normal Bowel Sounds. absent: Tenderness - Extremities Exam Additional comments: +1 pedal edema - Neurological Exam Neurological Exam: Alert, Awake, Oriented x3 - Psychiatric Exam Psychiatric exam: Normal Affect, Normal Mood - Skin Skin Exam: Intact, Normal Color Assessment and Plan - Assessment and Plan (Free Text) Assessment: Patient is a 73 F, with PMH CAD s/p CABG & AICD, systolic CHF (EF 30s, 2017, RVSP 24) with End-staged dilated cardiomyopathy s/p IV home inotropic therapy, diabetes with L toe amputation, AAA repair, colostomy s/p colectomy due to ischemic colitis, CKD stage 4, and chronic ataxia with DJD, admitted for systolic CHF exacerbation and community acquired pneumonia. On milirinone and lasix 40mg IVP bid for exacerbation of chf Plan: Acute Exacerbation of CHF Cardio consult: Cotinue on IV primacor 20 mg/100 ml for next 24-48 hours. Continue with IV lasix 40 mg bid. Strict I/O and daily weights, fluid restriction 1200 with diet Continue with Lopressor 100 mg bid, aspirin 81 mg, imdur 60 mg qd, lipitor 10 mg qd. Added lisinopril 5 mg qd and spirinolactone 25 mg qd. Hyponatremia noted likely 2/2 fluid overload; Patient on lasix and fluid restriction and milirinone Imdur 60mg po daily; Metolazone 2.5mg po daily; Last echo- 05/14. Repeat Echo pending Community acquired Pneumonia ID consulted- Dr. Trevino- Continue on Azactam 1 gm IV q12h and Zyvox 600 mg IV q12h. Procalcitonin; 0.07, Blood cultures no growth day 2, pending urine and sputum culture Mild leukocytosis noted; afebrile Repeat chest x-ray in AM Lower extremity weakness and gait dysfunction Likely 2/2 DJD Podiatry to follow while in house ambulates with walker and assistance at home Left submetatarsal ulceration and stage 1 sacral ulcer Sub met 1 hallux wound cultured; pending. Purulence expressed from wound, wound cleansed with saline and dressed with optifoam Continue with Zyvox and Azactam Foot Xrays ordered Multipodus boots worn by patient and encouraged to wear them at all times while in bed Turn Q2 Hypokalemia K: 3.5, Ordered K-Cl 20 meq PO Recheck CMP tomorrow DM ISS- low dose ACHS CKD Stage 4 Patient at baseline. Continue to trend BUN/Creat Chronic anemia Baseline Hgb of 11.8 and asymptomatic. Hemodynamically stable Essential tremor Primidone 50mg po HS PPx GI ppx- Protonix 40 mg qd DVT ppx- heparin 5000 C q8h <Sofía Pablo - Last Filed: 08/03/18 16:07> Objective - Vital Signs/Intake and Output Vital Signs (last 24 hours): Temp Pulse Resp BP Pulse Ox 98.1 F 97 H 18 146/83 97 08/03/18 12:00 08/03/18 12:00 08/03/18 12:00 08/03/18 12:00 08/03/18 05:38 Intake and Output: 08/03/18 08/03/18 06:59 18:59 Intake Total 540 Output Total 800 Balance -260 - Medications Medications: Current Medications Acetaminophen (Tylenol 325mg Tab) 650 mg PO Q6H PRN PRN Reason: Pain, Mild (1-3) Last Admin: 08/02/18 22:23 Dose: 650 mg Albuterol/Ipratropium (Duoneb 3 Mg/0.5 Mg (3 Ml) Ud) 3 ml IH [id number] PRN PRN Reason: Shortness of Breath Last Admin: 08/02/18 05:48 Dose: 3 ml Ascorbic Acid (Vitamin C 500 Mg Tab) 500 mg PO DAILY [facility] Last Admin: 08/03/18 10:14 Dose: 500 mg Aspirin (Ecotrin) 81 mg PO DAILY [facility] Last Admin: 08/03/18 10:14 Dose: 81 mg Atorvastatin Calcium (Lipitor) 10 mg PO DIN [facility] Last Admin: 08/02/18 17:40 Dose: 10 mg Calcium Carbonate (Oscal) 500 mg PO DAILY [facility] Last Admin: 08/03/18 10:14 Dose: 500 mg Cholecalciferol (Vitamin D) 1,000 intlu PO DAILY [facility] Last Admin: 08/03/18 10:14 Dose: 1,000 intlu Cyanocobalamin (Vitamin B12 1000 Mcg Tab) 1,000 mcg PO BID [facility] Last Admin: 08/03/18 10:14 Dose: 1,000 mcg Furosemide (Lasix) 40 mg PO BID [facility] Last Admin: 08/03/18 10:14 Dose: 40 mg Heparin Sodium (Porcine) (Heparin) 5,000 units SC Q8 [facility]; Protocol Last Admin: 08/03/18 14:31 Dose: Not Given Aztreonam (Azactam 1 Gm) 100 mls @ 100 mls/hr IVPB Q12 [facility]; Protocol Stop: 08/05/18 22:01 Last Admin: 08/03/18 10:07 Dose: 100 mls/hr Linezolid (Zyvox 600mg/300ml D5w) 600 mg in 300 mls @ 200 mls/hr IVPB Q12 [facility]; Protocol Stop: 08/05/18 23:46 Last Admin: 08/03/18 11:11 Dose: 200 mls/hr Insulin Human Regular (Humulin R Low) 0 units SC ACHS [facility]; Protocol Last Admin: 08/03/18 12:21 Dose: 2 unit Isosorbide Mononitrate (Imdur) 60 mg PO DAILY [facility] Last Admin: 08/03/18 10:14 Dose: 60 mg Lisinopril (Zestril) 5 mg PO DAILY [facility] Last Admin: 08/03/18 10:05 Dose: 5 mg Metolazone (Zaroxolyn) 5 mg PO DAILY [facility] Metoprolol Tartrate (Lopressor) 100 mg PO BRKDIN [facility] Last Admin: 08/03/18 08:04 Dose: 100 mg Multivitamins (Thera Tab) 1 tab PO DAILY [facility] Last Admin: 08/03/18 10:14 Dose: 1 tab Pantoprazole Sodium (Protonix Ec Tab) 40 mg PO 0600 [facility] Last Admin: 08/03/18 05:54 Dose: 40 mg Primidone (Mysoline) 50 mg PO HS [facility] Last Admin: 08/02/18 22:23 Dose: 50 mg Spironolactone (Aldactone) 25 mg PO DAILY [facility] Last Admin: 08/02/18 10:28 Dose: 25 mg - Labs Labs: 08/03/18 05:30 08/03/18 05:30 PT 14.3 SECONDS (9.4-12.5) H 07/29/18 17:30 INR 1.25 07/29/18 17:30 APTT 35.1 Seconds (25.1-36.5) 07/29/18 17:30 Attending/Attestation - Attestation I have personally seen and examined this patient.: Yes I have fully participated in the care of the patient.: Yes I have reviewed all pertinent clinical information, including history, physical exam and plan: Yes Notes (Text): 08/03/18 16:07 Medical record note made by the resident after discussion with my direction and input after the patient was personally seen and examined by me. I have reviewed the chart and agree that the record accurately reflects by personal performance of the history, physical exam, data review, and medical decision-making, in the course for the patient. I have also personally directed the plan of care.
--- NOTE | 2018-07-31 16:18 | PN ---
DATE: 07/30/2018 TIME OF CONSULTATION: 1815 hours. LOCATION OF CONSULTATION: Room 263, bed 1. REASON FOR PROGRESS NOTE: The patient had been seen by my resident on consultation for a wound on the left leg and left foot earlier this afternoon and we need to evaluate the same. SUBJECTIVE: The patient is a longstanding patient of mine who has been a longstanding diabetic with multiple comorbidities including CAD and congestive heart failure, previous septic conditions, history of abdominal aortic aneurysm, CKD and more recently, gait weakness with history of falls. She presented to the ED on Sunday after having had a day of inability to walk, having to crawl and be carried about her apartment of a fairly sudden onset over a 24 to 48 hour period. She is currently under workup by Medicine, Cardiology, Renal and Infectious Disease with suspected pneumonia and flare of congestive heart conditions. She is awake and in bed at the time of my visit and complains of no pain or problems with either leg or foot except her inability to walk. She had Therapy visit earlier today and was unable to get out of bed. She will need assistance with walking. She has still a flare up in her previously healed submet 1 left foot ulceration and continued to improve old blister formation on the anterior left grover that she reports no pain and although there is a history of neuropathy. OBJECTIVE: GENERAL: She is alert and oriented x3. Her is with her at bedside. Her general appearance is comfortable without any shortness of breath and she answers questions appropriately. VITAL SIGNS: Essentially stable. She has significant cardiomyopathy and CAD with congestive heart failure. EXTREMITIES: Her lower extremity evaluation reveals warm extremities. No evidence of acute cellulitis. There is nonpalpable PT and very weak DP consistent with a PAD status. There is reduced light touch and proprioception consistent with her longstanding diabetic neuropathy. There is previous amputation of the left great toe of multiple years, which is well healed. There is an anterior left grover 0.75 cm dry, almost escharotic previous blister with no local erythema or discharge of any kind. There is a plantar ulceration on the sole of the left first met with an opening to the subcutaneous tissues. No tendon or deep fascial structures are appreciated in the wound. The size is approximately 1 x 1 cm with a surrounding 1.5 cm area of loose macerated epidermis and dermis. Upon palpation, there is serosanguineous pus excrescence, which had been previously cultured this afternoon by my resident. There is no lymphangitis or streaking noted on the sole of the foot or course to the top of the left foot. There was no heel decubiti, no ankle decubiti, no calf tenderness and a negative Bryant's sign on both feet. The right foot has no open wounds of any kind. The muscle power is reduced and muscle mass is somewhat reduced in the lower legs bilaterally. ASSESSMENT: This is a neuropathic, diabetic with chronic kidney disease, coronary artery disease, peripheral artery disease, congestive heart condition. Workup and under care for probable pneumonia and congestive heart failure flare-up who presents with a preexisting ongoing diabetic ulceration on the sole of the left foot, which is currently in a mild flare-up. PLAN: Podiatry will follow and manage the ulceration on the sole of the left foot for this patient. My resident will everyday and do wound care dressing changes. On next followup, we will probably do a wound debridement at this bedside. No need to take the patient to the operating room. No need for any form of anesthesia because of the neuropathy. We will not anticipate any major interactions. We will ensure that x-ray and possible MRI are obtained when convenient with rest of the patient's medical workup. We will maintain wound care and dressing on a daily basis and the patient will be allowed physical therapy to improve her gait status so long as she wears her orthopedic molded shoe during out of bed events. Vinnie Cortés DPM
[2018-08-01] MEDS ORDERED: Oxycodone/Acetaminophen 5/325 mg Tab PO STA (01:20)
[2018-08-01] MEDS: Pantoprazole 40 mg EC Tab PO SCH (05:14)
[2018-08-01 06:23] LABS: BASO # 0.01 K/mm3 (0.0-2.0); BASO % 0.1 % (0.0-3.0); EOS # 0.6 (0.0-0.7); EOS % 7.2 % (1.5-5.0); GRAN # 5.54 (1.4-6.5); GRAN % 68.8 % (50.0-68.0); HEMOGLOBIN 10.1 g/dL (12.0-16.0); LYMPH # 1.2 (1.2-3.4); LYMPH % 14.8 % (22.0-35.0); MEAN CELL VOLUME 94.6 fl (80.0-105.0); MEAN CORPUSCULAR HEMOGLOBIN 30.1 pg (25.0-35.0); MEAN CORPUSCULAR HGB CONC 31.9 g/dl (31.0-37.0); MONO # 0.7 (0.1-0.6); MONO % 9.1 % (1.0-6.0); RBC 3.35 10^6/uL (3.5-6.1); RED CELL DISTRIBUTION WIDTH 14.3 % (11.5-14.5); WHITE BLOOD COUNT 8.1 10^3/ul (4.5-11.0)
[2018-08-01] MEDS: Milrinone 20mg/100ml D5W 100 ML IV PRN (06:31)
[2018-08-01 06:46] LABS: ALB/GLOB RATIO 1.1 (1.1-1.8); ALBUMIN 2.9 g/dL (3.0-4.8); CALCIUM 7.5 mg/dL (8.4-10.5)
--- NOTE | 2018-08-01 07:22 | CP.PCM.PN ---
<Tiffany Egan - Last Filed: 08/01/18 15:03> Subjective - Date & Time of Evaluation Date of Evaluation: 08/01/18 Time of Evaluation: 09:50 - Subjective Subjective: PGY-1 Medicine Progress Note For Dr. Pablo's service Patient seen and examined at bedside. Patient offers no acute complaints. Patient reports improved breathing from yesterday. Patient denies chest pain, sob, n/v, constipation or diarrhea, dysuria. Objective - Vital Signs/Intake and Output Vital Signs (last 24 hours): Temp Pulse Resp BP Pulse Ox 98.0 F 74 20 106/49 L 99 08/01/18 05:56 08/01/18 06:31 08/01/18 05:56 08/01/18 06:31 08/01/18 05:56 Intake and Output: 08/01/18 08/01/18 06:59 18:59 Intake Total 1848 Output Total 800 Balance 1048 - Medications Medications: Current Medications Ascorbic Acid (Vitamin C 500 Mg Tab) 500 mg PO DAILY [facility] Last Admin: 07/31/18 09:38 Dose: 500 mg Aspirin (Ecotrin) 81 mg PO DAILY [facility] Last Admin: 07/31/18 09:38 Dose: 81 mg Atorvastatin Calcium (Lipitor) 10 mg PO DIN [facility] Last Admin: 07/31/18 18:18 Dose: 10 mg Cholecalciferol (Vitamin D) 1,000 intlu PO DAILY [facility] Last Admin: 07/31/18 09:38 Dose: 1,000 intlu Cyanocobalamin (Vitamin B12 1000 Mcg Tab) 1,000 mcg PO BID [facility] Last Admin: 07/31/18 18:18 Dose: 1,000 mcg Furosemide (Lasix) 40 mg IVP BID [facility] Last Admin: 07/31/18 18:17 Dose: 40 mg Heparin Sodium (Porcine) (Heparin) 5,000 units SC Q8 [facility]; Protocol Last Admin: 08/01/18 05:15 Dose: 5,000 units Aztreonam (Azactam 1 Gm) 100 mls @ 100 mls/hr IVPB Q12 [facility]; Protocol Stop: 08/05/18 22:01 Last Admin: 07/31/18 21:00 Dose: 100 mls/hr Linezolid (Zyvox 600mg/300ml D5w) 600 mg in 300 mls @ 200 mls/hr IVPB Q12 [facility]; Protocol Stop: 08/05/18 23:46 Last Admin: 07/31/18 21:00 Dose: 200 mls/hr Milrinone Lactate/Dextrose (Primacor 20mg/100ml D5w) 100 mls @ 9.338 mls/hr IV .[id number] PRN; Protocol PRN Reason: TITRATE PER MD ORDER Last Admin: 08/01/18 06:31 Dose: 0.375 mcg/kg/min, 9.338 mls/hr Insulin Human Regular (Humulin R Low) 0 units SC ACHS [facility]; Protocol Last Admin: 07/31/18 21:40 Dose: Not Given Isosorbide Mononitrate (Imdur) 60 mg PO DAILY [facility] Last Admin: 07/31/18 09:38 Dose: 60 mg Lisinopril (Zestril) 5 mg PO DAILY [facility] Last Admin: 07/31/18 11:48 Dose: 5 mg Metolazone (Zaroxolyn) 2.5 mg PO DAILY [facility] Last Admin: 07/31/18 09:38 Dose: 2.5 mg Metoprolol Tartrate (Lopressor) 100 mg PO BRKDIN [facility] Last Admin: 07/31/18 18:17 Dose: 100 mg Multivitamins (Thera Tab) 1 tab PO DAILY [facility] Last Admin: 07/31/18 09:38 Dose: 1 tab Pantoprazole Sodium (Protonix Ec Tab) 40 mg PO 0600 [facility] Last Admin: 08/01/18 05:14 Dose: 40 mg Primidone (Mysoline) 50 mg PO HS [facility] Last Admin: 07/31/18 20:59 Dose: 50 mg Spironolactone (Aldactone) 25 mg PO DAILY [facility] Last Admin: 07/31/18 11:44 Dose: 25 mg - Labs Labs: 08/01/18 05:55 08/01/18 05:55 PT 14.3 SECONDS (9.4-12.5) H 07/29/18 17:30 INR 1.25 07/29/18 17:30 APTT 35.1 Seconds (25.1-36.5) 07/29/18 17:30 - Constitutional Appears: Non-toxic, No Acute Distress - Head Exam Head Exam: NORMAL INSPECTION, NORMOCEPHALIC - Eye Exam Eye Exam: EOMI, Normal appearance. absent: Nystagmus, Scleral icterus - ENT Exam ENT Exam: Mucous Membranes Moist - Respiratory Exam Respiratory Exam: Rales, NORMAL BREATHING PATTERN. absent: Accessory Muscle Use, Rhonchi, Wheezes, Respiratory Distress - Cardiovascular Exam Cardiovascular Exam: REGULAR RHYTHM, +S1, +S2. absent: JVD - GI/Abdominal Exam GI & Abdominal Exam: Soft, Normal Bowel Sounds. absent: Distended, Firm, Guarding, Tenderness - Extremities Exam Additional comments: currently wearing multipodus boots +1 pedal edema submetatarsal 1 ulceration dressed wtih xeroform optifoam and DSD - Neurological Exam Neurological Exam: Alert, Awake, Oriented x3 - Psychiatric Exam Psychiatric exam: Normal Affect, Normal Mood - Skin Skin Exam: Intact, Normal Color Assessment and Plan - Assessment and Plan (Free Text) Assessment: Patient is a 73 F, with PMH CAD s/p CABG & AICD, systolic CHF (EF 30s, 2017, RVSP 24) with End-staged dilated cardiomyopathy s/p IV home inotropic therapy, diabetes with L toe amputation, AAA repair, colostomy s/p colectomy due to ischemic colitis, CKD stage 4, and chronic ataxia with DJD, admitted for systoli c CHF exacerbation and community acquired pneumonia. On milirinone and lasix 40mg IVP bid for exacerbation of chf. Discontinued milirinone as per cardio. Hyponatremia noted will trend daily weights and Is/Os for further medication adjustments Plan: Acute Exacerbation of CHF Cardio consult: Dc'ed Primicor. Continue with IV lasix 40 mg bid. Strict I/O and daily weights, fluid restriction 1200 with diet BNP trending down; Repeat Cxray 08-01-18 shows less congestion Continue with Lopressor 100 mg bid, aspirin 81 mg, imdur 60 mg qd, lipitor 10 mg qd. Added lisinopril 5 mg qd and spirinolactone 25 mg qd; Metolazone 2.5mg po daily; Last echo- 05/14. Repeat Echo pending Community acquired Pneumonia ID consulted- Dr. Trevino- Continue on Azactam 1 gm IV q12h and Zyvox 600 mg IV q12h. Procalcitonin; 0.07, Blood cultures no growth day 2, pending urine and sputum culture Mild leukocytosis noted; afebrile Repeat chest x-ray in AM Hyponatremia noted likely 2/2 fluid overload Patient on lasix and fluid restriction and milirinone Strict I/O and daily weights; Repeat CMP in AM Left submetatarsal ulceration and stage 1 sacral ulcer Podiatry consulted- surgical debridement perfromed bedside with blade and pickup; previous cultures pending Sub met 1 hallux wound cultured; pending. Purulence expressed from wound, wound cleansed with saline and dressed with optifoam Continue with Zyvox and Azactam Foot Xrays shows no signs of osteomyeltisi Multipodus boots worn by patient and encouraged to wear them at all times while in bed Lower extremity weakness and gait dysfunction Likely 2/2 DJD Podiatry to follow while in house ambulates with walker and assistance at home DM ISS- low dose ACHS CKD Stage 4 Patient at baseline. Continue to trend BUN/Creat Chronic anemia Hemodynamically stable Continue to monitor with serial CBCs Essential tremor Primidone 50mg po HS PPx GI ppx- Protonix 40 mg qd DVT ppx- heparin 5000 C q8h Medical Management discussed with Dr. Bev Egan PGY-1 <Sofía Pablo - Last Filed: 08/03/18 16:07> Objective - Vital Signs/Intake and Output Vital Signs (last 24 hours): Temp Pulse Resp BP Pulse Ox 98.1 F 97 H 18 146/83 97 08/03/18 12:00 08/03/18 12:00 08/03/18 12:00 08/03/18 12:00 08/03/18 05:38 Intake and Output: 08/03/18 08/03/18 06:59 18:59 Intake Total 540 Output Total 800 Balance -260 - Medications Medications: Current Medications Acetaminophen (Tylenol 325mg Tab) 650 mg PO Q6H PRN PRN Reason: Pain, Mild (1-3) Last Admin: 08/02/18 22:23 Dose: 650 mg Albuterol/Ipratropium (Duoneb 3 Mg/0.5 Mg (3 Ml) Ud) 3 ml IH [id number] PRN PRN Reason: Shortness of Breath Last Admin: 08/02/18 05:48 Dose: 3 ml Ascorbic Acid (Vitamin C 500 Mg Tab) 500 mg PO DAILY [facility] Last Admin: 08/03/18 10:14 Dose: 500 mg Aspirin (Ecotrin) 81 mg PO DAILY [facility] Last Admin: 08/03/18 10:14 Dose: 81 mg Atorvastatin Calcium (Lipitor) 10 mg PO DIN [facility] Last Admin: 08/02/18 17:40 Dose: 10 mg Calcium Carbonate (Oscal) 500 mg PO DAILY [facility] Last Admin: 08/03/18 10:14 Dose: 500 mg Cholecalciferol (Vitamin D) 1,000 intlu PO DAILY [facility] Last Admin: 08/03/18 10:14 Dose: 1,000 intlu Cyanocobalamin (Vitamin B12 1000 Mcg Tab) 1,000 mcg PO BID [facility] Last Admin: 08/03/18 10:14 Dose: 1,000 mcg Furosemide (Lasix) 40 mg PO BID [facility] Last Admin: 08/03/18 10:14 Dose: 40 mg Heparin Sodium (Porcine) (Heparin) 5,000 units SC Q8 [facility]; Protocol Last Admin: 08/03/18 14:31 Dose: Not Given Aztreonam (Azactam 1 Gm) 100 mls @ 100 mls/hr IVPB Q12 [facility]; Protocol Stop: 08/05/18 22:01 Last Admin: 08/03/18 10:07 Dose: 100 mls/hr Linezolid (Zyvox 600mg/300ml D5w) 600 mg in 300 mls @ 200 mls/hr IVPB Q12 [facility]; Protocol Stop: 08/05/18 23:46 Last Admin: 08/03/18 11:11 Dose: 200 mls/hr Insulin Human Regular (Humulin R Low) 0 units SC ACHS [facility]; Protocol Last Admin: 08/03/18 12:21 Dose: 2 unit Isosorbide Mononitrate (Imdur) 60 mg PO DAILY [facility] Last Admin: 08/03/18 10:14 Dose: 60 mg Lisinopril (Zestril) 5 mg PO DAILY [facility] Last Admin: 08/03/18 10:05 Dose: 5 mg Metolazone (Zaroxolyn) 5 mg PO DAILY [facility] Metoprolol Tartrate (Lopressor) 100 mg PO BRKDIN [facility] Last Admin: 08/03/18 08:04 Dose: 100 mg Multivitamins (Thera Tab) 1 tab PO DAILY [facility] Last Admin: 08/03/18 10:14 Dose: 1 tab Pantoprazole Sodium (Protonix Ec Tab) 40 mg PO 0600 [facility] Last Admin: 08/03/18 05:54 Dose: 40 mg Primidone (Mysoline) 50 mg PO HS [facility] Last Admin: 08/02/18 22:23 Dose: 50 mg Spironolactone (Aldactone) 25 mg PO DAILY [facility] Last Admin: 08/02/18 10:28 Dose: 25 mg - Labs Labs: 08/03/18 05:30 08/03/18 05:30 PT 14.3 SECONDS (9.4-12.5) H 07/29/18 17:30 INR 1.25 07/29/18 17:30 APTT 35.1 Seconds (25.1-36.5) 07/29/18 17:30 Attending/Attestation - Attestation I have personally seen and examined this patient.: Yes I have fully participated in the care of the patient.: Yes I have reviewed all pertinent clinical information, including history, physical exam and plan: Yes Notes (Text): 08/03/18 16:07 Medical record note made by the resident after discussion with my direction and input after the patient was personally seen and examined by me. I have reviewed the chart and agree that the record accurately reflects by personal performance of the history, physical exam, data review, and medical decision-making, in the course for the patient. I have also personally directed the plan of care.
--- NOTE | 2018-08-01 08:12 | PN ---
DATE: 07/31/2018 SUBJECTIVE: The patient seen early this morning in room 263, bed 1. No fevers, no chills. Uneventful night. PHYSICAL EXAMINATION: VITAL SIGNS: Temperature is 97, blood pressure is 130/70, respiratory rate of 19, heart rate of 73. HEENT: Unremarkable. NECK: Supple. LUNGS: Decreased breath sounds. HEART: Normal S1, S2. ABDOMEN: Soft. LABORATORY EXAMINATION: Reveals a white count of 12,500, hemoglobin of 10, and platelets of 200. Chemistries reveal a BUN of 47, creatinine of 1.8. Urinalysis is noted. Serology, urine for Legionella antigen is negative. Microbiology reveals the blood cultures are no growth. Left foot culture is pending. Examination of leg with less edema in the left leg with erythema is improved. The patient is on aztreonam and linezolid. ASSESSMENT AND PLAN: A 73-year-old female with coronary artery disease, cardiomyopathy, congestive heart failure, diabetes mellitus, abdominal aortic aneurysm, chronic kidney disease stage IV, cataracts, and ischemic colitis by history; admitted with; 1. Acute systolic congestive heart failure on top of chronic congestive heart failure with right community-acquired pneumonia and left lower leg extremity cellulitis. THE PATIENT WITH MULTIPLE ALLERGIES. Currently on day #3 of Zyvox and aztreonam. The left leg is improving and we will follow with you. Urine for Legionella antigen is negative. Urinalysis is noted. We will check on the final culture results and make further recommendations including the wound culture results. José Luis Trevino MD
[2018-08-01] MEDS: Insulin Reg-LOW-Coverage SC SCH ×4 (08:34→22:43)
--- NOTE | 2018-08-01 09:08 | PN ---
DATE: 08/01/2018 SUBJECTIVE: Patient is comfortable without shortness of breath. PHYSICAL EXAMINATION: VITAL SIGNS: Blood pressure is 106/50, heart rate is in the 70s. NECK: Negative JVD. LUNGS: Without rales. HEART: S1, S2. EXTREMITIES: Bandaged secondary to after the procedure. LABORATORY DATA: BUN and creatinine 54 and 2.2. Hemoglobin is 10.1. IMPRESSION: 1. End-stage dilated cardiomyopathy. 2. Coronary artery disease. 3. Congestive heart failure, which is better. 4. Cellulitis. 5. Renal insufficiency. Given these findings, will discontinue the milrinone today. Patient's cardiac status is at its baseline. Vinnie Vidales MD
--- NOTE | 2018-08-01 09:46 | RAD ---
Date of service: 08/01/2018 HISTORY: shortness of breath COMPARISON: 07/29/2018. FINDINGS: Right-sided MediPort terminates at the cavoatrial junction. LUNGS: The lungs are hyperinflated. There is severe pulmonary venous congestion. PLEURA: No significant pleural effusion identified, no pneumothorax apparent. CARDIOVASCULAR: There is severe cardiomegaly. Status post CAB Stable position of left-sided permanent pacing device. OSSEOUS STRUCTURES: No significant abnormalities. VISUALIZED UPPER ABDOMEN: Normal. OTHER FINDINGS: None. IMPRESSION: Interval development of congestive heart failure. Background of COPD.
--- NOTE | 2018-08-01 10:46 | CP.PCM.PN ---
Subjective - Date & Time of Evaluation Date of Evaluation: 08/01/18 Time of Evaluation: 10:43 - Subjective Subjective: Podiatry Progress Note for Dr. Cortés: 73 yo female patient, seen and evaluated, at bedside with Dr. Cortés for left submetatarsal 1 ulceration. Patient is AAOx3 and in NAD. She states that the pain in her heels is resolving. She continues to wear multipodus boots while in bed. Patient denies N/V/F/SOB/CP. Objective - Vital Signs/Intake and Output Vital Signs (last 24 hours): Temp Pulse Resp BP Pulse Ox 98.0 F 74 20 106/49 L 99 08/01/18 05:56 08/01/18 08:34 08/01/18 05:56 08/01/18 06:31 08/01/18 05:56 Intake and Output: 08/01/18 08/01/18 06:59 18:59 Intake Total 1848 Output Total 800 Balance 1048 - Medications Medications: Current Medications Ascorbic Acid (Vitamin C 500 Mg Tab) 500 mg PO DAILY [facility] Last Admin: 07/31/18 09:38 Dose: 500 mg Aspirin (Ecotrin) 81 mg PO DAILY [facility] Last Admin: 07/31/18 09:38 Dose: 81 mg Atorvastatin Calcium (Lipitor) 10 mg PO DIN [facility] Last Admin: 07/31/18 18:18 Dose: 10 mg Cholecalciferol (Vitamin D) 1,000 intlu PO DAILY [facility] Last Admin: 07/31/18 09:38 Dose: 1,000 intlu Cyanocobalamin (Vitamin B12 1000 Mcg Tab) 1,000 mcg PO BID [facility] Last Admin: 07/31/18 18:18 Dose: 1,000 mcg Furosemide (Lasix) 40 mg IVP BID [facility] Last Admin: 07/31/18 18:17 Dose: 40 mg Heparin Sodium (Porcine) (Heparin) 5,000 units SC Q8 [facility]; Protocol Last Admin: 08/01/18 05:15 Dose: 5,000 units Aztreonam (Azactam 1 Gm) 100 mls @ 100 mls/hr IVPB Q12 [facility]; Protocol Stop: 08/05/18 22:01 Last Admin: 07/31/18 21:00 Dose: 100 mls/hr Linezolid (Zyvox 600mg/300ml D5w) 600 mg in 300 mls @ 200 mls/hr IVPB Q12 [facility]; Protocol Stop: 08/05/18 23:46 Last Admin: 07/31/18 21:00 Dose: 200 mls/hr Insulin Human Regular (Humulin R Low) 0 units SC ACHS [facility]; Protocol Last Admin: 08/01/18 08:34 Dose: 1 unit Isosorbide Mononitrate (Imdur) 60 mg PO DAILY [facility] Last Admin: 07/31/18 09:38 Dose: 60 mg Lisinopril (Zestril) 5 mg PO DAILY [facility] Last Admin: 07/31/18 11:48 Dose: 5 mg Metolazone (Zaroxolyn) 2.5 mg PO DAILY [facility] Last Admin: 07/31/18 09:38 Dose: 2.5 mg Metoprolol Tartrate (Lopressor) 100 mg PO BRKDIN [facility] Last Admin: 08/01/18 08:34 Dose: 100 mg Multivitamins (Thera Tab) 1 tab PO DAILY [facility] Last Admin: 07/31/18 09:38 Dose: 1 tab Pantoprazole Sodium (Protonix Ec Tab) 40 mg PO 0600 [facility] Last Admin: 08/01/18 05:14 Dose: 40 mg Primidone (Mysoline) 50 mg PO HS [facility] Last Admin: 07/31/18 20:59 Dose: 50 mg Spironolactone (Aldactone) 25 mg PO DAILY [facility] Last Admin: 07/31/18 11:44 Dose: 25 mg - Labs Labs: 08/01/18 05:55 08/01/18 05:55 PT 14.3 SECONDS (9.4-12.5) H 07/29/18 17:30 INR 1.25 07/29/18 17:30 APTT 35.1 Seconds (25.1-36.5) 07/29/18 17:30 - Constitutional Appears: Well, Non-toxic, No Acute Distress - Head Exam Head Exam: ATRAUMATIC, NORMOCEPHALIC - Extremities Exam Additional comments: Lower extremity focused exam: Vasc: DP 1/4, PT 1/4 bilaterally, CFT <3 seconds to digits, TG warm to cool, mild edema noted circumfrentially to legs bilaterally Ortho: Partial left hallux amputation and second digit amputation. Rigid hammertoe contractures to lesser digits on the R foot. Neuro: Gross sensation intact, protective sensation diminished/absent Derm: Left plantar submetatarsal head 1 ulceration, no purulence or drainage appreciated, no probe to bone, no malodor, no tunneling or tracking. No cellulitis or erythema noted. - Neurological Exam Neurological Exam: Alert, Awake, Oriented x3 - Psychiatric Exam Psychiatric exam: Normal Affect, Normal Mood Assessment and Plan - Assessment and Plan (Free Text) Assessment: 73 yo female patient, seen and evaluated, at bedside with Dr. Cortés for left submetatarsal 1 ulceration Plan: Patient seen and evaluated at bedside with Dr. Cortés Chart, labs, vitals reviewed; afebrile, absent leukocytosis (08/01/18) L foot x-ray; No OM appreciated Submetatarsal 1 ulceration surgical debridement performed bedside with blade and pickup. No anesthesia administered due to neuropathy. No specimens sent, previous cultures taken and pending Wound dressed with xeroform, optifoam, and DSD Continue with multipodus boots; patient to wear at all times while in bed Antibiotics per ID reccs; Zyvox Azactam Will continue to follow while in house
[2018-08-01] MEDS: Cholecalciferol 1,000 INTLU TAB PO SCH (11:00)
[2018-08-01] MEDS: metOLazone 2.5 MG TAB PO SCH (11:00)
[2018-08-01] MEDS: Multivitamin Therapeutic Tab PO SCH (11:00)
[2018-08-01] MEDS: Aztreonam 1 Gm in NS 100mL 100 ML IVPB SCH ×2 (11:00→21:40)
[2018-08-01] MEDS: Linezolid 600 mg in D5W 300 ml 600 MG/300 ML BAG IVPB SCH ×2 (12:10→21:39)
--- NOTE | 2018-08-01 15:02 | RAD ---
Date of service: 08/01/2018 HISTORY: shortness of breath COMPARISON: Earlier same day FINDINGS: LUNGS: There is moderate vascular congestion and interstitial infiltrate at the right lung base. PLEURA: No significant pleural effusion identified, no pneumothorax apparent. CARDIOVASCULAR: Moderate cardiomegaly OSSEOUS STRUCTURES: No significant abnormalities. VISUALIZED UPPER ABDOMEN: Normal. OTHER FINDINGS: Pacemaker. Port-A-Cath IMPRESSION: There is moderate vascular congestion and interstitial infiltrate at the right lung base.
--- NOTE | 2018-08-01 16:14 | CARD ---
APPROVED REPORT Date of service: 07/31/2018 EXAM: Two-dimensional and M-mode echocardiogram with Doppler and color Doppler. INDICATION Congestive Heart Failure 2D DIMENSIONS Left Atrium (2D)5.6 (1.6-4.0cm)IVSd1.1 (0.7-1.1cm) LVDd6.3 (3.9-5.9cm)PWd1.1 (0.7-1.1cm) LVDs5.4 (2.5-4.0cm)FS (%) 14.9 % LVEF (%)30.8 (>50%) M-Mode DIMENSIONS Aortic Root2.40 (2.2-3.7cm)Aortic Cusp Exc.1.30 (1.5-2.0cm) Aortic Valve AoV Peak Roansvat806.0cm/Nelly Peak GR.7mmHg Mitral Valve E/A ratio0.0 TDI E/Lateral E'0.0E/Medial E'0.0 Tricuspid Valve TR Peak [id number] Peak Gr.48mmHg [id number] LEFT VENTRICLE There is mild concentric left ventricular hypertrophy. The ejection fraction is moderately to severely impaired. RIGHT VENTRICLE The right ventricle is mildly dilated. There is a pacemaker lead in the right ventricle. ATRIA The left atrium is moderately dilated. The right atrium is moderately dilated. AORTIC VALVE The aortic valve is calcified but opens well. MITRAL VALVE The mitral valve is calcified but opens well. Mitral annular calcification is mild to moderate. Mitral regurgitation is moderate. TRICUSPID VALVE The tricuspid valve leaflets are thickened , but open well. There is moderate tricuspid regurgitation. There is moderate pulmonary hypertension. PULMONIC VALVE The pulmonic valve is mildly thickened. PERICARDIAL EFFUSION There is no pericardial effusion. <Conclusion> Dilated LV Moderate to severe LV hypokinesis Moderate MR and TR Dilated LA and RA Moderate pulmonary hypertension PPM in RV noted
[2018-08-01] MEDS ORDERED: oxyCODONE 5 mg Immediate Release Tab PO STA (16:52)
[2018-08-02] MEDS: Albuterol-Ipratrop 3 mg / 0.5 (3 ml) UD IH PRN ×2 (02:29→05:48)
[2018-08-02] MEDS: Pantoprazole 40 mg EC Tab PO SCH (05:29)
[2018-08-02 06:36] LABS: BASO # 0.01 K/mm3 (0.0-2.0); BASO % 0.1 % (0.0-3.0); EOS # 0.5 (0.0-0.7); EOS % 5.6 % (1.5-5.0); GRAN # 6.03 (1.4-6.5); GRAN % 75.2 % (50.0-68.0); HEMOGLOBIN 11.1 g/dL (12.0-16.0); LYMPH # 0.9 (1.2-3.4); MEAN CELL VOLUME 93.2 fl (80.0-105.0); MEAN CORPUSCULAR HEMOGLOBIN 30.4 pg (25.0-35.0); MEAN CORPUSCULAR HGB CONC 32.6 g/dl (31.0-37.0); MEAN PLATELET VOLUME 9.4 fl (7.0-11.0); MONO # 0.7 (0.1-0.6); MONO % 8.1 % (1.0-6.0); RBC 3.65 10^6/uL (3.5-6.1)
[2018-08-02 07:41] LABS: ALB/GLOB RATIO 1.1 (1.1-1.8); ALBUMIN 3.2 g/dL (3.0-4.8); CALCIUM 7.4 mg/dL (8.4-10.5)
[2018-08-02] MEDS: Insulin Reg-LOW-Coverage SC SCH ×4 (08:37→22:08)
--- NOTE | 2018-08-02 09:01 | PN ---
DATE: 08/01/2018 SUBJECTIVE: The patient is in bed, was seen earlier in [facility], bed 2. Her respiration has much improved. She is much more comfortable. PHYSICAL EXAMINATION: VITAL SIGNS: On exam, temperature is 97, blood pressure is 130/70, respiratory rate of 18. HEENT: Examination of HEENT is unremarkable. NECK: Supple. LUNGS: Have decreased breath sounds. HEART: Normal S1, S2. ABDOMEN: Soft, nontender. LABORATORY DATA: Laboratory examination reveals the patient's white count is 8, hemoglobin of 10. Chemistries are noted. Creatinine is 2.2. Serology is noted. Microbiology reveals the blood cultures are no growth. Urine cultures are contamination. MRSA screen is negative. The foot culture is with gram-positive cocci. Examination of leg is much improved. The patient is currently on Zyvox and Azactam. ASSESSMENT AND PLAN: A 73-year-old female known to me from previous admissions, who was admitted with acute, systolic congestive heart failure on top of chronic congestive heart failure and right community-acquired pneumonia, left lower leg extremity cellulitis with gram-positive cocci, on Zyvox and aztreonam day #4, in a patient with history of cardiomyopathy, congestive heart failure, diabetes, abdominal aortic aneurysm, ischemic colitis and stage IV kidney disease. Overall prognosis is poor. We will follow closely with you. José Luis Trevino MD
[2018-08-02] MEDS: Cholecalciferol 1,000 INTLU TAB PO SCH (10:28)
[2018-08-02] MEDS: metOLazone 2.5 MG TAB PO SCH (10:28)
[2018-08-02] MEDS: Multivitamin Therapeutic Tab PO SCH (10:28)
[2018-08-02] MEDS: Aztreonam 1 Gm in NS 100mL 100 ML IVPB SCH ×2 (10:29→22:22)
--- NOTE | 2018-08-02 10:49 | PN ---
DATE: 08/02/2018 SUBJECTIVE: The patient is off IV Primacor. Her breathing is good. PHYSICAL EXAMINATION: VITAL SIGNS: Blood pressure 130/70, heart rate is in the 80s. NECK: Negative JVD. LUNGS: Without rales. HEART: S1, S2. EXTREMITIES: Still bandaged. LABORATORY DATA: Hemoglobin is 11.1. Chemistries, BUN and creatinine of 52 and 2.3, glucose is 192. IMPRESSION: 1. Cellulitis of the lower extremities. 2. Renal insufficiency. 3. End-stage dilated cardiomyopathy. 4. Resolution of congestive heart failure. 5. Coronary artery disease. 6. Diabetes mellitus. Given these findings, we will discontinue her nasal O2. We will change her Lasix to p.o. Lasix. Vinnie Vidales MD
--- NOTE | 2018-08-02 10:50 | CP.PCM.PN ---
Subjective - Date & Time of Evaluation Date of Evaluation: 08/02/18 Time of Evaluation: 10:45 - Subjective Subjective: Podiatry Progress Note for Dr. Cortés: 73 yo female patient, seen and evaluated for submetatarsal 1 ulceration. Patient is resting comfortably in bed and denies any acute overnight events. She states that the pain to her heels has resolved but she is having right groin pain. Denies any new pedal complaints. Denies N/V/F/SOB/CP. Objective - Vital Signs/Intake and Output Vital Signs (last 24 hours): Temp Pulse Resp BP Pulse Ox 97.4 F L 75 20 128/69 99 08/02/18 06:00 08/02/18 10:26 08/02/18 06:00 08/02/18 10:33 08/02/18 06:00 Intake and Output: 08/02/18 08/02/18 06:59 18:59 Intake Total 400 Output Total 600 Balance -200 - Medications Medications: Current Medications Albuterol/Ipratropium (Duoneb 3 Mg/0.5 Mg (3 Ml) Ud) 3 ml IH [id number] PRN PRN Reason: Shortness of Breath Last Admin: 08/02/18 05:48 Dose: 3 ml Ascorbic Acid (Vitamin C 500 Mg Tab) 500 mg PO DAILY [facility] [place] Last Admin: 08/02/18 10:28 Dose: 500 mg Aspirin (Ecotrin) 81 mg PO DAILY [facility] Last Admin: 08/02/18 10:28 Dose: 81 mg Atorvastatin Calcium (Lipitor) 10 mg PO DIN [facility] Last Admin: 08/01/18 17:32 Dose: 10 mg Cholecalciferol (Vitamin D) 1,000 intlu PO DAILY [facility] [place] Last Admin: 08/02/18 10:28 Dose: 1,000 intlu Cyanocobalamin (Vitamin B12 1000 Mcg Tab) 1,000 mcg PO BID [facility] Last Admin: 08/01/18 17:32 Dose: 1,000 mcg Furosemide (Lasix) 40 mg PO BID [facility] Last Admin: 08/02/18 10:33 Dose: 40 mg Heparin Sodium (Porcine) (Heparin) 5,000 units SC Q8 [facility] [place]; Protocol Last Admin: 08/02/18 05:29 Dose: 5,000 units Aztreonam (Azactam 1 Gm) 100 mls @ 100 mls/hr IVPB Q12 [facility] [place]; Protocol Stop: 08/05/18 22:01 Last Admin: 08/02/18 10:29 Dose: 100 mls/hr Linezolid (Zyvox 600mg/300ml D5w) 600 mg in 300 mls @ 200 mls/hr IVPB Q12 [facility] [place]; Protocol Stop: 08/05/18 23:46 Last Admin: 08/01/18 21:39 Dose: 200 mls/hr Insulin Human Regular (Humulin R Low) 0 units SC ACHS [facility] [place]; Protocol Last Admin: 08/02/18 08:37 Dose: 3 unit Isosorbide Mononitrate (Imdur) 60 mg PO DAILY [facility] [place] Last Admin: 08/02/18 10:26 Dose: 60 mg Lisinopril (Zestril) 5 mg PO DAILY [facility] [place] Last Admin: 08/02/18 10:26 Dose: 5 mg Metolazone (Zaroxolyn) 2.5 mg PO DAILY [facility] [place] Last Admin: 08/02/18 10:28 Dose: 2.5 mg Metoprolol Tartrate (Lopressor) 100 mg PO BRKDIN [facility] Last Admin: 08/02/18 08:37 Dose: 100 mg Multivitamins (Thera Tab) 1 tab PO DAILY [facility] [place] Last Admin: 08/02/18 10:28 Dose: 1 tab Pantoprazole Sodium (Protonix Ec Tab) 40 mg PO 0600 [facility] Last Admin: 08/02/18 05:29 Dose: 40 mg Primidone (Mysoline) 50 mg PO HS [facility] [place] Last Admin: 08/01/18 21:38 Dose: 50 mg Spironolactone (Aldactone) 25 mg PO DAILY [facility] [place] Last Admin: 08/02/18 10:28 Dose: 25 mg - Labs Labs: 08/02/18 06:00 08/02/18 06:00 PT 14.3 SECONDS (9.4-12.5) H 07/29/18 17:30 INR 1.25 07/29/18 17:30 APTT 35.1 Seconds (25.1-36.5) 07/29/18 17:30 - Constitutional Appears: Well, Non-toxic, No Acute Distress - Head Exam Head Exam: ATRAUMATIC, NORMOCEPHALIC - Extremities Exam Additional comments: Lower extremity focused exam: Vasc: DP 1/4, PT 1/4 bilaterally, CFT <3 seconds to digits, TG warm to cool, mild edema noted circumfrentially to legs bilaterally Ortho: Partial left hallux amputation and second digit amputation. Rigid hammertoe contractures to lesser digits on the R foot, no tenderness upon palpation upon calf compression bilaterallly Neuro: Gross sensation intact, protective sensation absent Derm: Left plantar submetatarsal head 1 ulceration, mild sanginous drainage appreciated, no probe to bone, no malodor, no tunneling or tracking. No cellulitis or erythema noted. - Neurological Exam Neurological Exam: Alert, Awake, Oriented x3 - Psychiatric Exam Psychiatric exam: Normal Affect, Normal Mood Assessment and Plan - Assessment and Plan (Free Text) Assessment: 73 yo female patient, seen and evaluated, for left submetatarsal 1 ulceration Plan: Patient seen and evaluated at bedside Patient plan discussed in detail with Dr. Cortés Chart, labs, vitals reviewed; afebrile, absent leukocytosis (08/02/18) Submetarsal 1 ulceration cleansed with saline and dressed with Optifoam and DSD. Wound cx (07/30); gram + cocci, final report pending L foot x-ray (07/31); No OM appreciated Continue with multipodus boots; patient to wear at all times while in bed Antibiotics per ID reccs; Zyvox Azactam Will continue to follow while in house
--- NOTE | 2018-08-02 11:43 | CP.PCM.CON ---
<Talia Ratliff - Last Filed: 08/02/18 14:45> History of Present Illness - History of Present Illness History of Present Illness: Talia Ratliff DO, PGY-2: Nephrology Consult Note for Dr. 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 Cardiology and Infectious Disease are following. Nephrology was consulted for VALE on CKD and Hyponatremia in the setting of aggressive diuresis. Patient denies fever, chills, nausea, vomiting, diarrhea, chest pain, palpitations, dysgeusia, dyspnea (but is not ambulating). Otherwise, 12 point ROS is negative. 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, AAA repair, colectomy s/p ischemic colitis & colostomy creation, Cataract b/l s/p pura Sx FH: Mom - breast ca, DM; Dad - throat ca Social History: Former smoker, denies alcohol or illicit drug use; cooks and help sort/administer pills Allergies: Doxycycline, Shellfish, Augmentin Review of Systems - Review of Systems All systems: reviewed and no additional remarkable complaints except (as per HPI) Past Patient History - Infectious Disease Hx of Infectious Diseases: None - Tetanus Immunizations Tetanus Immunization: Unknown - Past Medical History & Family History Past Medical History?: Yes - Past Social History Smoking Status: Former Smoker - CARDIAC Hx Cardiac Disorders: Yes (CABG; AICD) Hx Congestive Heart Failure: Yes Hx Hypertension: Yes - PULMONARY Hx Respiratory Disorders: No - NEUROLOGICAL Hx Neurological Disorder: No - HEENT Hx Cataracts: Yes (bilateral laser sx) - RENAL Hx Chronic Kidney Disease: Yes - ENDOCRINE/METABOLIC Hx Diabetes Mellitus Type 2: Yes - HEMATOLOGICAL/ONCOLOGICAL Hx Blood Transfusions: No Hx Blood Transfusion Reaction: No - INTEGUMENTARY Other/Comment: STage 3 sacral ulcers. BLE redness w/ scattered scabs. Under breasts folds redness. Bilateral under belly Folds redness skin excoriated - MUSCULOSKELETAL/RHEUMATOLOGICAL Hx Arthritis: Yes - GASTROINTESTINAL Hx Gastrointestinal Disorders: Yes (umbilical hernia) Hx Ileostomy: Yes (s/p ischemic colitis) - GENITOURINARY/GYNECOLOGICAL Hx Reproductive Disorders: No - PSYCHIATRIC Hx Psychophysiologic Disorder: No Hx Substance Use: No - SURGICAL HISTORY Hx Abdominal Aortic Aneurysm Repair: Yes Hx Eye Surgery: Yes (Cataracts laser) - ANESTHESIA Hx Anesthesia: Yes Hx Anesthesia Reactions: No Hx Malignant Hyperthermia: No Meds Allergies/Adverse Reactions: Allergies Allergy/AdvReac Type Severity Reaction Status Date / Time amoxicillin [From Augmentin] Allergy ANAPHYLAXIS Verified 07/29/18 20:50 clavulanic acid Allergy ANAPHYLAXIS Verified 07/29/18 20:50 [From Augmentin] doxycycline Allergy ANAPHYLAXIS Verified 04/29/18 21:11 shellfish derived Allergy ANAPHYLAXIS Verified 04/29/18 21:11 - Medications Medications: Current Medications Albuterol/Ipratropium (Duoneb 3 Mg/0.5 Mg (3 Ml) Ud) 3 ml IH [id number] PRN PRN Reason: Shortness of Breath Last Admin: 08/02/18 05:48 Dose: 3 ml Ascorbic Acid (Vitamin C 500 Mg Tab) 500 mg PO DAILY [facility] Last Admin: 08/02/18 10:28 Dose: 500 mg Aspirin (Ecotrin) 81 mg PO DAILY [facility] Last Admin: 08/02/18 10:28 Dose: 81 mg Atorvastatin Calcium (Lipitor) 10 mg PO DIN [facility] Last Admin: 08/01/18 17:32 Dose: 10 mg Cholecalciferol (Vitamin D) 1,000 intlu PO DAILY [facility] Last Admin: 08/02/18 10:28 Dose: 1,000 intlu Cyanocobalamin (Vitamin B12 1000 Mcg Tab) 1,000 mcg PO BID [facility] Last Admin: 08/01/18 17:32 Dose: 1,000 mcg Furosemide (Lasix) 40 mg PO BID [facility] Last Admin: 08/02/18 10:33 Dose: 40 mg Heparin Sodium (Porcine) (Heparin) 5,000 units SC Q8 [facility]; Protocol Last Admin: 08/02/18 05:29 Dose: 5,000 units Aztreonam (Azactam 1 Gm) 100 mls @ 100 mls/hr IVPB Q12 [facility]; Protocol Stop: 08/05/18 22:01 Last Admin: 08/02/18 10:29 Dose: 100 mls/hr Linezolid (Zyvox 600mg/300ml D5w) 600 mg in 300 mls @ 200 mls/hr IVPB Q12 [facility]; Protocol Stop: 08/05/18 23:46 Last Admin: 08/01/18 21:39 Dose: 200 mls/hr Insulin Human Regular (Humulin R Low) 0 units SC ACHS [facility]; Protocol Last Admin: 08/02/18 08:37 Dose: 3 unit Isosorbide Mononitrate (Imdur) 60 mg PO DAILY [facility] Last Admin: 08/02/18 10:26 Dose: 60 mg Lisinopril (Zestril) 5 mg PO DAILY [facility] Last Admin: 08/02/18 10:26 Dose: 5 mg Metolazone (Zaroxolyn) 2.5 mg PO DAILY [facility] Last Admin: 08/02/18 10:28 Dose: 2.5 mg Metoprolol Tartrate (Lopressor) 100 mg PO BRKDIN [facility] Last Admin: 08/02/18 08:37 Dose: 100 mg Multivitamins (Thera Tab) 1 tab PO DAILY [facility] Last Admin: 08/02/18 10:28 Dose: 1 tab Pantoprazole Sodium (Protonix Ec Tab) 40 mg PO 0600 [facility] Last Admin: 08/02/18 05:29 Dose: 40 mg Primidone (Mysoline) 50 mg PO HS [facility] Last Admin: 08/01/18 21:38 Dose: 50 mg Spironolactone (Aldactone) 25 mg PO DAILY [facility] Last Admin: 08/02/18 10:28 Dose: 25 mg Physical Exam - Constitutional Appears: Non-toxic, No Acute Distress - Head Exam Head Exam: ATRAUMATIC, NORMOCEPHALIC - Eye Exam Eye Exam: EOMI, Normal appearance - ENT Exam ENT Exam: Mucous Membranes Moist - Neck Exam Neck exam: Positive for: Normal Inspection - Respiratory Exam Respiratory Exam: Rales, NORMAL BREATHING PATTERN. absent: Accessory Muscle Use - Cardiovascular Exam Cardiovascular Exam: RRR, +S1, +S2 - GI/Abdominal Exam GI & Abdominal Exam: Normal Bowel Sounds, Soft - Extremities Exam Extremities exam: Negative for: calf tenderness, pedal edema Additional comments: changes of chronic venous stasis and ulcers in anterior shins b/l, left foot dressing intact - Neurological Exam Neurological exam: Alert, CN II-XII Intact, Oriented x3 - Psychiatric Exam Psychiatric exam: Normal Affect, Normal Mood - Skin Skin Exam: Dry, Intact, Normal Color, Warm Results - Vital Signs Recent Vital Signs: Last Vital Signs Temp 97.4 F L 08/02/18 06:00 Pulse 75 08/02/18 10:26 Resp 20 08/02/18 06:00 BP 128/69 08/02/18 10:33 Pulse Ox 99 08/02/18 06:00 - Labs Result Diagrams: 08/02/18 06:00 08/02/18 06:00 Labs: Laboratory Results - last 24 hr 08/01/18 08/01/18 08/01/18 06:00 11:54 17:13 WBC RBC Hgb Hct MCV MCH MCHC RDW Plt Count MPV Gran % Lymph % (Auto) [place] % (Auto) Eos % (Auto) Baso % (Auto) Gran # Lymph # (Auto) [place] # (Auto) Eos # (Auto) Baso # (Auto) Sodium Potassium Chloride Carbon Dioxide Anion Gap BUN Creatinine Est GFR ( Amer) Est GFR (Non-Af Amer) POC Glucose (mg/dL) 193 H 197 H Random Glucose Calcium Magnesium Total Bilirubin AST ALT Alkaline Phosphatase NT-Pro-B Natriuret Pep 78554 H Total Protein Albumin Globulin Albumin/Globulin Ratio 08/01/18 08/02/18 08/02/18 22:24 06:00 06:00 WBC 8.0 RBC 3.65 Hgb 11.1 L Hct 34.0 L MCV 93.2 MCH 30.4 MCHC 32.6 RDW 14.0 Plt Count 193 MPV 9.4 Gran % 75.2 H Lymph % (Auto) 11.0 L [place] % (Auto) 8.1 H Eos % (Auto) 5.6 H Baso % (Auto) 0.1 Gran # 6.03 Lymph # (Auto) 0.9 L [place] # (Auto) 0.7 H Eos # (Auto) 0.5 Baso # (Auto) 0.01 Sodium 124 L Potassium 4.3 Chloride 92 L Carbon Dioxide 21 Anion Gap 15 BUN 52 H Creatinine 2.3 H Est GFR ( Amer) 25 Est GFR (Non-Af Amer) 21 POC Glucose (mg/dL) 247 H Random Glucose 192 H Calcium 7.4 L Magnesium 1.8 Total Bilirubin 0.2 AST 24 ALT 19 Alkaline Phosphatase 91 NT-Pro-B Natriuret Pep Total Protein 6.0 Albumin 3.2 Globulin 2.8 Albumin/Globulin Ratio 1.1 Assessment & Plan - Assessment and Plan (Free Text) Assessment: 73 year old female with a past medical history of CAD, CABG, DM II, CKD 3/4A, left foot surgery who presented with pain and difficulty with ambulation and was found to have a CHF exacerbation, left leg cellulitis, and possible pneumonia. She was treated with aggressive diuresis and IV antibiotics. She has a corrected Na of 126 and has had a rise in her serum Creatinine. Nephrology was consulted for hyponatremia and VALE on CKD. We recommend holding Aldactone and the thiazide diuretic. Continue with Lasix and ACEI. Etiology of VALE is likely secondary to aggressive diuresis. We will given a one time dose of Tolvaptan 15 mg for her hyponatremia. We will continue to follow with you. Case was reviewed and discussed with attending physician, Dr. Cedeno - Date & Time Date: 08/02/18 Time: 14:53 <Derek Cedeno - Last Filed: 08/03/18 03:05> Meds - Medications Medications: Current Medications Acetaminophen (Tylenol 325mg Tab) 650 mg PO Q6H PRN PRN Reason: Pain, Mild (1-3) Last Admin: 08/02/18 22:23 Dose: 650 mg Albuterol/Ipratropium (Duoneb 3 Mg/0.5 Mg (3 Ml) Ud) 3 ml IH [id number] PRN PRN Reason: Shortness of Breath Last Admin: 08/02/18 05:48 Dose: 3 ml Ascorbic Acid (Vitamin C 500 Mg Tab) 500 mg PO DAILY [facility] Last Admin: 08/02/18 10:28 Dose: 500 mg Aspirin (Ecotrin) 81 mg PO DAILY [facility] Last Admin: 08/02/18 10:28 Dose: 81 mg Atorvastatin Calcium (Lipitor) 10 mg PO DIN [facility] Last Admin: 08/02/18 17:40 Dose: 10 mg Calcium Carbonate (Oscal) 500 mg PO DAILY [facility] Cholecalciferol (Vitamin D) 1,000 intlu PO DAILY [facility] Last Admin: 08/02/18 10:28 Dose: 1,000 intlu Cyanocobalamin (Vitamin B12 1000 Mcg Tab) 1,000 mcg PO BID [facility] Last Admin: 08/02/18 17:40 Dose: 1,000 mcg Furosemide (Lasix) 40 mg PO BID [facility] Last Admin: 08/02/18 17:40 Dose: 40 mg Heparin Sodium (Porcine) (Heparin) 5,000 units SC Q8 [facility]; Protocol Last Admin: 08/02/18 22:07 Dose: Not Given Aztreonam (Azactam 1 Gm) 100 mls @ 100 mls/hr IVPB Q12 [facility]; Protocol Stop: 08/05/18 22:01 Last Admin: 08/02/18 22:22 Dose: 100 mls/hr Linezolid (Zyvox 600mg/300ml D5w) 600 mg in 300 mls @ 200 mls/hr IVPB Q12 [facility]; Protocol Stop: 08/05/18 23:46 Last Admin: 08/02/18 22:22 Dose: 200 mls/hr Insulin Human Regular (Humulin R Low) 0 units SC ACHS [facility]; Protocol Last Admin: 08/02/18 22:08 Dose: Not Given Isosorbide Mononitrate (Imdur) 60 mg PO DAILY [facility] Last Admin: 08/02/18 10:26 Dose: 60 mg Lisinopril (Zestril) 5 mg PO DAILY [facility] Last Admin: 08/02/18 10:26 Dose: 5 mg Metolazone (Zaroxolyn) 2.5 mg PO DAILY [facility] Last Admin: 08/02/18 10:28 Dose: 2.5 mg Metoprolol Tartrate (Lopressor) 100 mg PO BRKDIN [facility] Last Admin: 08/02/18 17:40 Dose: 100 mg Multivitamins (Thera Tab) 1 tab PO DAILY [facility] Last Admin: 08/02/18 10:28 Dose: 1 tab Pantoprazole Sodium (Protonix Ec Tab) 40 mg PO 0600 [facility] Last Admin: 08/02/18 05:29 Dose: 40 mg Primidone (Mysoline) 50 mg PO HS [facility] Last Admin: 08/02/18 22:23 Dose: 50 mg Spironolactone (Aldactone) 25 mg PO DAILY [facility] Last Admin: 08/02/18 10:28 Dose: 25 mg Results - Vital Signs Recent Vital Signs: Last Vital Signs Temp 97.5 F L 08/02/18 23:58 Pulse 75 08/02/18 23:58 Resp 20 08/02/18 23:58 BP 119/78 08/02/18 23:58 Pulse Ox 98 08/02/18 23:58 - Labs Result Diagrams: 08/02/18 06:00 08/02/18 06:00 Labs: Laboratory Results - last 24 hr 08/01/18 08/02/18 08/02/18 22:24 06:00 06:00 WBC 8.0 RBC 3.65 Hgb 11.1 L Hct 34.0 L MCV 93.2 MCH 30.4 MCHC 32.6 RDW 14.0 Plt Count 193 MPV 9.4 Gran % 75.2 H Lymph % (Auto) 11.0 L [place] % (Auto) 8.1 H Eos % (Auto) 5.6 H Baso % (Auto) 0.1 Gran # 6.03 Lymph # (Auto) 0.9 L [place] # (Auto) 0.7 H Eos # (Auto) 0.5 Baso # (Auto) 0.01 Sodium 124 L Potassium 4.3 Chloride 92 L Carbon Dioxide 21 Anion Gap 15 BUN 52 H Creatinine 2.3 H Est GFR ( Amer) 25 Est GFR (Non-Af Amer) 21 POC Glucose (mg/dL) 247 H Random Glucose 192 H Calcium 7.4 L Magnesium 1.8 Total Bilirubin 0.2 AST 24 ALT 19 Alkaline Phosphatase 91 Total Protein 6.0 Albumin 3.2 Globulin 2.8 Albumin/Globulin Ratio 1.1 25-OH Vitamin D Total Urine Osmolality Ur Random Sodium Ur Random Urea Nitrogn 08/02/18 08/02/18 08/02/18 07:16 11:45 12:22 WBC RBC Hgb Hct MCV MCH MCHC RDW Plt Count MPV Gran % Lymph % (Auto) [place] % (Auto) Eos % (Auto) Baso % (Auto) Gran # Lymph # (Auto) [place] # (Auto) Eos # (Auto) Baso # (Auto) Sodium Potassium Chloride Carbon Dioxide Anion Gap BUN Creatinine Est GFR ( Amer) Est GFR (Non-Af Amer) POC Glucose (mg/dL) 225 H 246 H Random Glucose Calcium Magnesium Total Bilirubin AST ALT Alkaline Phosphatase Total Protein Albumin Globulin Albumin/Globulin Ratio 25-OH Vitamin D Total 25.9 L Urine Osmolality Ur Random Sodium Ur Random Urea Nitrogn 08/02/18 08/02/18 08/02/18 13:30 17:09 21:02 WBC RBC Hgb Hct MCV MCH MCHC RDW Plt Count MPV Gran % Lymph % (Auto) [place] % (Auto) Eos % (Auto) Baso % (Auto) Gran # Lymph # (Auto) [place] # (Auto) Eos # (Auto) Baso # (Auto) Sodium Potassium Chloride Carbon Dioxide Anion Gap BUN Creatinine Est GFR ( Amer) Est GFR (Non-Af Amer) POC Glucose (mg/dL) 180 H 154 H Random Glucose Calcium Magnesium Total Bilirubin AST ALT Alkaline Phosphatase Total Protein Albumin Globulin Albumin/Globulin Ratio 25-OH Vitamin D Total Urine Osmolality 263 L Ur Random Sodium 22 Ur Random Urea Nitrogn 362 08/03/18 00:30 WBC RBC Hgb Hct MCV MCH MCHC RDW Plt Count MPV Gran % Lymph % (Auto) [place] % (Auto) Eos % (Auto) Baso % (Auto) Gran # Lymph # (Auto) [place] # (Auto) Eos # (Auto) Baso # (Auto) Sodium Potassium Chloride Carbon Dioxide Anion Gap BUN Creatinine Est GFR ( Amer) Est GFR (Non-Af Amer) POC Glucose (mg/dL) Random Glucose Calcium Magnesium Total Bilirubin AST ALT Alkaline Phosphatase Total Protein Albumin Globulin Albumin/Globulin Ratio 25-OH Vitamin D Total Urine Osmolality 245 L Ur Random Sodium 16 Ur Random Urea Nitrogn Attending/Attestation - Attestation I have personally seen and examined this patient.: Yes I have fully participated in the care of the patient.: Yes I have reviewed all pertinent clinical information: Yes Notes (Text): Patient seen and examined; I agree with the resident's note as above with the following additions/edits: 73 yo F w/ pmh of CAD s/p CABG, systolic CHF with EF of 30% s/p AICD (on home milrinone at one point but able to be discontinued), diabetes mellitus, abdomina l aortic aneurysm repair, CKD stage IIIB, admitted with generalized weakness; nephrology being consulted for VALE and hyponatremia that ensued during current admission; Patient denies having any increased dyspnea lately, however, did have significant leg swelling on presentation and was started on IV lasix 40 mg bid (takes PO lasix 40 mg bid at home); currently appears euvolemic on exam; VALE likely secondary to over-diuresis; stable respiratory status with review of CXR showing no significant increase in vascular congestion; Hyponatremia also likely secondary to volume depletion with inadequate PO fluid restriction; Otherwise, patient has 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; previous serologic workup for other causes was unremarkable; of note, patient had a previous 24 hr urine collection that showed grossly nephrotic range proteinuria, but when repeated earlier this year was only ~2g; -Agree with changing back IV lasix to PO; -Holding thiazide diuretic and aldactone (both pre-dispose to hyponatremia compared to loop diuretic); -Giving dose of tolvaptan 15 mg x 1; -PO fluid restriction to 1.5L daily (can start from tomorrow as generally fluid restriction is not advised with tolvaptan); -Continue lisinopril and rest of anti-htn agents; BP relatively controlled; Thank you for this referral, we will continue to follow.
[2018-08-02] MEDS: Linezolid 600 mg in D5W 300 ml 600 MG/300 ML BAG IVPB SCH ×2 (12:33→22:22)
[2018-08-02 13:59] LABS: OSMOLALITY,URINE 263 mosm/kg (300-1000)
--- NOTE | 2018-08-02 14:41 | CP.PCM.PN ---
Addendum entered and electronically signed by Tiffany Egan DO 08/02/18 15:32: As per nephro Tolvaptan 15mg po once Original Note: <Tiffany Egan - Last Filed: 08/02/18 14:38> Subjective - Date & Time of Evaluation Date of Evaluation: 08/02/18 Time of Evaluation: 10:25 - Subjective Subjective: PGY-1 Medicine Progress Note for Dr. Pablo's service Patient seen and examined at bedside. Patient reports her breathing is much better from yesterday. Patient reports right hip pain which is a chronic issue for her. She denies any other complaints such as fever, chills, chest pain, n/v/c/d, generalized weakness. Objective - Vital Signs/Intake and Output Vital Signs (last 24 hours): Temp Pulse Resp BP Pulse Ox 97.5 F L 73 18 134/81 99 08/02/18 12:00 08/02/18 12:00 08/02/18 12:00 08/02/18 12:00 08/02/18 06:00 Intake and Output: 08/02/18 08/02/18 06:59 18:59 Intake Total 400 Output Total 600 Balance -200 - Medications Medications: Current Medications Acetaminophen (Tylenol 325mg Tab) 650 mg PO Q6H PRN PRN Reason: Pain, Mild (1-3) Albuterol/Ipratropium (Duoneb 3 Mg/0.5 Mg (3 Ml) Ud) 3 ml IH [id number] PRN PRN Reason: Shortness of Breath Last Admin: 08/02/18 05:48 Dose: 3 ml Ascorbic Acid (Vitamin C 500 Mg Tab) 500 mg PO DAILY [facility] Last Admin: 08/02/18 10:28 Dose: 500 mg Aspirin (Ecotrin) 81 mg PO DAILY [facility] Last Admin: 08/02/18 10:28 Dose: 81 mg Atorvastatin Calcium (Lipitor) 10 mg PO DIN [facility] Last Admin: 08/01/18 17:32 Dose: 10 mg Calcium Carbonate (Oscal) 500 mg PO DAILY [facility] Cholecalciferol (Vitamin D) 1,000 intlu PO DAILY [facility] Last Admin: 08/02/18 10:28 Dose: 1,000 intlu Cyanocobalamin (Vitamin B12 1000 Mcg Tab) 1,000 mcg PO BID [facility] Last Admin: 08/02/18 10:28 Dose: 1,000 mcg Furosemide (Lasix) 40 mg PO BID [facility] Last Admin: 08/02/18 10:33 Dose: 40 mg Heparin Sodium (Porcine) (Heparin) 5,000 units SC Q8 [facility]; Protocol Last Admin: 08/02/18 13:29 Dose: 5,000 units Aztreonam (Azactam 1 Gm) 100 mls @ 100 mls/hr IVPB Q12 [facility]; Protocol Stop: 08/05/18 22:01 Last Admin: 08/02/18 10:29 Dose: 100 mls/hr Linezolid (Zyvox 600mg/300ml D5w) 600 mg in 300 mls @ 200 mls/hr IVPB Q12 [facility]; Protocol Stop: 08/05/18 23:46 Last Admin: 08/02/18 12:33 Dose: 200 mls/hr Calcium Gluconate 1,000 mg/ (Sodium Chloride) 110 mls @ 110 mls/hr IVPB ONCE ONE Stop: 08/02/18 15:29 Insulin Human Regular (Humulin R Low) 0 units SC ACHS [facility]; Protocol Last Admin: 08/02/18 12:32 Dose: 2 unit Isosorbide Mononitrate (Imdur) 60 mg PO DAILY [facility] Last Admin: 08/02/18 10:26 Dose: 60 mg Lisinopril (Zestril) 5 mg PO DAILY [facility] Last Admin: 08/02/18 10:26 Dose: 5 mg Metolazone (Zaroxolyn) 2.5 mg PO DAILY [facility] Last Admin: 08/02/18 10:28 Dose: 2.5 mg Metoprolol Tartrate (Lopressor) 100 mg PO BRKDIN [facility] Last Admin: 08/02/18 08:37 Dose: 100 mg Multivitamins (Thera Tab) 1 tab PO DAILY [facility] Last Admin: 08/02/18 10:28 Dose: 1 tab Pantoprazole Sodium (Protonix Ec Tab) 40 mg PO 0600 [facility] Last Admin: 08/02/18 05:29 Dose: 40 mg Primidone (Mysoline) 50 mg PO HS [facility] Last Admin: 08/01/18 21:38 Dose: 50 mg Spironolactone (Aldactone) 25 mg PO DAILY [facility] Last Admin: 08/02/18 10:28 Dose: 25 mg - Labs Labs: 08/02/18 06:00 08/02/18 06:00 PT 14.3 SECONDS (9.4-12.5) H 07/29/18 17:30 INR 1.25 07/29/18 17:30 APTT 35.1 Seconds (25.1-36.5) 07/29/18 17:30 - Constitutional Appears: Non-toxic, No Acute Distress - Head Exam Head Exam: NORMAL INSPECTION, NORMOCEPHALIC - Eye Exam Eye Exam: EOMI, Normal appearance. absent: Nystagmus, Scleral icterus - Respiratory Exam Respiratory Exam: Clear to Ausculation Bilateral, NORMAL BREATHING PATTERN. absent: Rales, Rhonchi, Wheezes - Cardiovascular Exam Cardiovascular Exam: REGULAR RHYTHM, +S1, +S2 - GI/Abdominal Exam GI & Abdominal Exam: Soft, Normal Bowel Sounds. absent: Distended, Firm, Guarding, Tenderness Additional comments: colostomy bag in place - Extremities Exam Extremities Exam: Normal Inspection. absent: Calf Tenderness, Pedal Edema Additional comments: currently wearing multipodus boots submetatarsal 1 ulceration dressed wtih xeroform optifoam and DSD - Neurological Exam Neurological Exam: Alert, Awake, Oriented x3 - Psychiatric Exam Psychiatric exam: Normal Affect, Normal Mood - Skin Skin Exam: Intact, Normal Color Assessment and Plan - Assessment and Plan (Free Text) Assessment: Patient is a 73 F, with PMH CAD s/p CABG & AICD, systolic CHF (EF 30s, 2017, RVSP 24) with End-staged dilated cardiomyopathy s/p IV home inotropic therapy, diabetes with L toe amputation, AAA repair, colostomy s/p colectomy due to ischemic colitis, CKD stage 4, and chronic ataxia with DJD, admitted for systolic CHF exacerbation and community acquired pneumonia. On milirinone and lasix 40mg IVP bid for exacerbation of chf. Discontinued milirinone as per cardio. Hyponatremia noted will trend daily weights and Is/Os for further medication adjustments. Nero consulted for worsening hyponatremia and VALE. Plan: Acute Exacerbation of CHF Cardio consult: - Will change to Lasix 40 mg PO bid Echo from 07/31- Dilated LV. Moderate to severe LV hypokinesis. Moderate MR and TR. Dilated LA and RA. Moderate pulmonary hypertension. PPM in RV noted. LVEF: 30.8% Strict I/O and daily weights, fluid restriction 1200 with diet Continue with Lopressor 100 mg bid, aspirin 81 mg, imdur 60 mg qd, lipitor 10 mg qd, lisinopril 5 mg qd, spirinolactone 25 mg qd; Metolazone 2.5mg po daily. Community acquired Pneumonia ID consulted- Dr. Trevino- Continue on Azactam 1 gm IV q12h (Day 5) and Zyvox 600 mg IV q12h (Day 5) Chest xray from 08/01-There is moderate vascular congestion and interstitial infiltrate at the right lung base. MRSA-negative, Urine culture-multiple species, probable contamination, Blood culture-no growth after 3 days, procalcitonin: 0.07, L.pneumophilia ag: negative No leukocytosis, afebrile, asymptomatic VALE on CKD stage 4 Nephro Consulted- Dr. Cornelio castro appreciated Likely prerenal in the setting of over diuresis Switched Lasix to 40 po bid Hyponatremia Nephro consulted: Dr. Cornelio castro appreciated Fluid restrictio; Lasix 40mg po bid Strict I/O and daily weights; Repeat CMP in AM Hypocalcemia noted likely 2/2 diuretic use vs. Vit. D deficiency Dr. Cedeno consulted- recommendations appreciated Ca today: 7.4. Ordered Calcium gluconate 1000 mg IV once, then Calcium carbonate 500 mg 1QD. Also ordered Vit D level. Vit D level pending; Repeat CMP in AM Left submetatarsal ulceration and stage 1 sacral ulcer ID consulted - Dr. Trevino - recommendations appreciated Podiatry consulted- Submetarsal 1 ulceration cleansed with saline and dressed with Optifoam and DSD after surgical debridement yesterday. Foot Xrays shows no signs of osteomyelitis Sub met 1 hallux wound cultured: coagulase negative staph. Await ID reccs. Continue with Zyvox and Azactam Lower extremity weakness and gait dysfunction Complains of right hip/lower extremity pain-ordered Tylenol 650 mg po Q6h prn Likely 2/2 DJD Podiatry to follow while in house ambulates with walker and assistance at home DM ISS- low dose ACHS Chronic anemia Hemodynamically stable Continue to monitor with serial CBCs Essential tremor Primidone 50mg po HS PPx GI ppx- Protonix 40 mg qd DVT ppx- heparin 5000 C q8h <Sofía Pablo - Last Filed: 08/03/18 16:06> Objective - Vital Signs/Intake and Output Vital Signs (last 24 hours): Temp Pulse Resp BP Pulse Ox 98.1 F 97 H 18 146/83 97 08/03/18 12:00 08/03/18 12:00 08/03/18 12:00 08/03/18 12:00 08/03/18 05:38 Intake and Output: 08/03/18 08/03/18 06:59 18:59 Intake Total 540 Output Total 800 Balance -260 - Medications Medications: Current Medications Acetaminophen (Tylenol 325mg Tab) 650 mg PO Q6H PRN PRN Reason: Pain, Mild (1-3) Last Admin: 08/02/18 22:23 Dose: 650 mg Albuterol/Ipratropium (Duoneb 3 Mg/0.5 Mg (3 Ml) Ud) 3 ml IH [id number] PRN PRN Reason: Shortness of Breath Last Admin: 08/02/18 05:48 Dose: 3 ml Ascorbic Acid (Vitamin C 500 Mg Tab) 500 mg PO DAILY [facility] Last Admin: 08/03/18 10:14 Dose: 500 mg Aspirin (Ecotrin) 81 mg PO DAILY [facility] Last Admin: 08/03/18 10:14 Dose: 81 mg Atorvastatin Calcium (Lipitor) 10 mg PO DIN [facility] Last Admin: 08/02/18 17:40 Dose: 10 mg Calcium Carbonate (Oscal) 500 mg PO DAILY [facility] Last Admin: 08/03/18 10:14 Dose: 500 mg Cholecalciferol (Vitamin D) 1,000 intlu PO DAILY [facility] Last Admin: 08/03/18 10:14 Dose: 1,000 intlu Cyanocobalamin (Vitamin B12 1000 Mcg Tab) 1,000 mcg PO BID [facility] Last Admin: 08/03/18 10:14 Dose: 1,000 mcg Furosemide (Lasix) 40 mg PO BID [facility] Last Admin: 08/03/18 10:14 Dose: 40 mg Heparin Sodium (Porcine) (Heparin) 5,000 units SC Q8 [facility]; Protocol Last Admin: 08/03/18 14:31 Dose: Not Given Aztreonam (Azactam 1 Gm) 100 mls @ 100 mls/hr IVPB Q12 [facility]; Protocol Stop: 08/05/18 22:01 Last Admin: 08/03/18 10:07 Dose: 100 mls/hr Linezolid (Zyvox 600mg/300ml D5w) 600 mg in 300 mls @ 200 mls/hr IVPB Q12 [facility]; Protocol Stop: 08/05/18 23:46 Last Admin: 08/03/18 11:11 Dose: 200 mls/hr Insulin Human Regular (Humulin R Low) 0 units SC ACHS [facility]; Protocol Last Admin: 08/03/18 12:21 Dose: 2 unit Isosorbide Mononitrate (Imdur) 60 mg PO DAILY [facility] Last Admin: 08/03/18 10:14 Dose: 60 mg Lisinopril (Zestril) 5 mg PO DAILY [facility] Last Admin: 08/03/18 10:05 Dose: 5 mg Metolazone (Zaroxolyn) 5 mg PO DAILY [facility] Metoprolol Tartrate (Lopressor) 100 mg PO BRKDIN [facility] Last Admin: 08/03/18 08:04 Dose: 100 mg Multivitamins (Thera Tab) 1 tab PO DAILY [facility] Last Admin: 08/03/18 10:14 Dose: 1 tab Pantoprazole Sodium (Protonix Ec Tab) 40 mg PO 0600 [facility] Last Admin: 08/03/18 05:54 Dose: 40 mg Primidone (Mysoline) 50 mg PO HS [facility] Last Admin: 08/02/18 22:23 Dose: 50 mg Spironolactone (Aldactone) 25 mg PO DAILY [facility] Last Admin: 08/02/18 10:28 Dose: 25 mg - Labs Labs: 08/03/18 05:30 08/03/18 05:30 PT 14.3 SECONDS (9.4-12.5) H 07/29/18 17:30 INR 1.25 07/29/18 17:30 APTT 35.1 Seconds (25.1-36.5) 07/29/18 17:30 Attending/Attestation - Attestation I have personally seen and examined this patient.: Yes I have fully participated in the care of the patient.: Yes I have reviewed all pertinent clinical information, including history, physical exam and plan: Yes Notes (Text): 08/03/18 16:06 Medical record note made by the resident after discussion with my direction and input after the patient was personally seen and examined by me. I have reviewed the chart and agree that the record accurately reflects by personal performance of the history, physical exam, data review, and medical decision-making, in the course for the patient. I have also personally directed the plan of care.
[2018-08-02] MEDS ORDERED: Tolvaptan 15 MG TAB PO ONE (14:51)
--- NOTE | 2018-08-02 17:28 | CP.PCM.PN ---
Subjective - Date & Time of Evaluation Date of Evaluation: 08/02/18 Time of Evaluation: 08:10 - Subjective Subjective: Left leg is feeling better, no fevers, not in distress. Objective - Vital Signs/Intake and Output Vital Signs (last 24 hours): Temp Pulse Resp BP Pulse Ox 98.2 F 75 18 149/94 H 98 08/02/18 17:08 08/02/18 17:08 08/02/18 17:08 08/02/18 17:08 08/02/18 17:08 Intake and Output: 08/02/18 08/02/18 06:59 18:59 Intake Total 400 Output Total 600 Balance -200 - Medications Medications: Current Medications Acetaminophen (Tylenol 325mg Tab) 650 mg PO Q6H PRN PRN Reason: Pain, Mild (1-3) Last Admin: 08/02/18 16:07 Dose: 650 mg Albuterol/Ipratropium (Duoneb 3 Mg/0.5 Mg (3 Ml) Ud) 3 ml IH [id number] PRN PRN Reason: Shortness of Breath Last Admin: 08/02/18 05:48 Dose: 3 ml Ascorbic Acid (Vitamin C 500 Mg Tab) 500 mg PO DAILY [facility] Last Admin: 08/02/18 10:28 Dose: 500 mg Aspirin (Ecotrin) 81 mg PO DAILY [facility] Last Admin: 08/02/18 10:28 Dose: 81 mg Atorvastatin Calcium (Lipitor) 10 mg PO DIN [facility] Last Admin: 08/01/18 17:32 Dose: 10 mg Calcium Carbonate (Oscal) 500 mg PO DAILY [facility] Cholecalciferol (Vitamin D) 1,000 intlu PO DAILY [facility] Last Admin: 08/02/18 10:28 Dose: 1,000 intlu Cyanocobalamin (Vitamin B12 1000 Mcg Tab) 1,000 mcg PO BID [facility] Last Admin: 08/02/18 10:28 Dose: 1,000 mcg Furosemide (Lasix) 40 mg PO BID [facility] Last Admin: 08/02/18 10:33 Dose: 40 mg Heparin Sodium (Porcine) (Heparin) 5,000 units SC Q8 [facility]; Protocol Last Admin: 08/02/18 13:29 Dose: 5,000 units Aztreonam (Azactam 1 Gm) 100 mls @ 100 mls/hr IVPB Q12 [facility]; Protocol Stop: 08/05/18 22:01 Last Admin: 08/02/18 10:29 Dose: 100 mls/hr Linezolid (Zyvox 600mg/300ml D5w) 600 mg in 300 mls @ 200 mls/hr IVPB Q12 [facility]; Protocol Stop: 08/05/18 23:46 Last Admin: 08/02/18 12:33 Dose: 200 mls/hr Insulin Human Regular (Humulin R Low) 0 units SC ACHS [facility]; Protocol Last Admin: 08/02/18 12:32 Dose: 2 unit Isosorbide Mononitrate (Imdur) 60 mg PO DAILY [facility] Last Admin: 08/02/18 10:26 Dose: 60 mg Lisinopril (Zestril) 5 mg PO DAILY [facility] Last Admin: 08/02/18 10:26 Dose: 5 mg Metolazone (Zaroxolyn) 2.5 mg PO DAILY [facility] Last Admin: 08/02/18 10:28 Dose: 2.5 mg Metoprolol Tartrate (Lopressor) 100 mg PO BRKDIN [facility] Last Admin: 08/02/18 08:37 Dose: 100 mg Multivitamins (Thera Tab) 1 tab PO DAILY [facility] Last Admin: 08/02/18 10:28 Dose: 1 tab Pantoprazole Sodium (Protonix Ec Tab) 40 mg PO 0600 [facility] Last Admin: 08/02/18 05:29 Dose: 40 mg Primidone (Mysoline) 50 mg PO HS [facility] Last Admin: 08/01/18 21:38 Dose: 50 mg Spironolactone (Aldactone) 25 mg PO DAILY [facility] Last Admin: 08/02/18 10:28 Dose: 25 mg - Labs Labs: 08/02/18 06:00 08/02/18 06:00 PT 14.3 SECONDS (9.4-12.5) H 07/29/18 17:30 INR 1.25 07/29/18 17:30 APTT 35.1 Seconds (25.1-36.5) 07/29/18 17:30 - Constitutional Appears: Chronically Ill - Head Exam Head Exam: NORMAL INSPECTION - Respiratory Exam Respiratory Exam: Decreased Breath Sounds - Cardiovascular Exam Cardiovascular Exam: +S1, +S2 - GI/Abdominal Exam GI & Abdominal Exam: Soft. absent: Tenderness Assessment and Plan - Assessment and Plan (Free Text) Plan: Assessment left leg cellulitis as well as right sided community-acquired pneumonia S/P left foot 2nd digit skin and skin structure infection CAD S/P CABG abdominal aortic aneurysm S/P repair S/P cholecystectomy S/P pacemaker placement DM S/P left toe amputation Plan continue Zyovx and Azactam day 4 for 7-10 days
[2018-08-03 00:55] LABS: OSMOLALITY,URINE 245 mosm/kg (300-1000)
[2018-08-03] MEDS: Pantoprazole 40 mg EC Tab PO SCH (05:54)
[2018-08-03 06:28] LABS: BASO # 0.02 K/mm3 (0.0-2.0); BASO % 0.3 % (0.0-3.0); EOS # 0.5 (0.0-0.7); EOS % 6.3 % (1.5-5.0); GRAN # 5.15 (1.4-6.5); GRAN % 70.2 % (50.0-68.0); HEMOGLOBIN 11.6 g/dL (12.0-16.0); LYMPH # 1.2 (1.2-3.4); LYMPH % 15.7 % (22.0-35.0); MEAN CELL VOLUME 90.9 fl (80.0-105.0); MEAN CORPUSCULAR HEMOGLOBIN 30.1 pg (25.0-35.0); MEAN CORPUSCULAR HGB CONC 33.1 g/dl (31.0-37.0); MONO # 0.6 (0.1-0.6); MONO % 7.5 % (1.0-6.0); RBC 3.85 10^6/uL (3.5-6.1); RED CELL DISTRIBUTION WIDTH 13.9 % (11.5-14.5); WHITE BLOOD COUNT 7.3 10^3/ul (4.5-11.0)
[2018-08-03 06:32] LABS: IRON 47 ug/dL (45-180)
[2018-08-03 06:36] LABS: ALB/GLOB RATIO 1.1 (1.1-1.8); ALBUMIN 3.3 g/dL (3.0-4.8); CALCIUM 8.2 mg/dL (8.4-10.5)
[2018-08-03 06:42] LABS: % IRON SATURATION 16 % (20-55); TOTAL IRON BINDING CAPACITY 288 ug/dL (265-497)
[2018-08-03] MEDS: Insulin Reg-LOW-Coverage SC SCH ×4 (08:04→23:11)
--- NOTE | 2018-08-03 08:23 | CP.PCM.PN ---
Subjective - Date & Time of Evaluation Date of Evaluation: 08/03/18 Time of Evaluation: 08:12 - Subjective Subjective: Podiatry - Dr. Cortés 73F seen and examined at bedside this AM for left foot submetatarsal 1 ulceration. Patient resting comfortably, NAD. No acute events overnight. Denies any pain to left foot wound; offers no new pedal complaints. Denies N/V/F/D/C/SOB/BLANCO/CP. Objective - Vital Signs/Intake and Output Vital Signs (last 24 hours): Temp Pulse Resp BP Pulse Ox 98.0 F 75 19 150/66 97 08/03/18 05:38 08/03/18 08:04 08/03/18 05:38 08/03/18 08:04 08/03/18 05:38 Intake and Output: 08/03/18 08/03/18 06:59 18:59 Intake Total 540 Output Total 800 Balance -260 - Medications Medications: Current Medications Acetaminophen (Tylenol 325mg Tab) 650 mg PO Q6H PRN PRN Reason: Pain, Mild (1-3) Last Admin: 08/02/18 22:23 Dose: 650 mg Albuterol/Ipratropium (Duoneb 3 Mg/0.5 Mg (3 Ml) Ud) 3 ml IH [id number] PRN PRN Reason: Shortness of Breath Last Admin: 08/02/18 05:48 Dose: 3 ml Ascorbic Acid (Vitamin C 500 Mg Tab) 500 mg PO DAILY [facility] Last Admin: 08/02/18 10:28 Dose: 500 mg Aspirin (Ecotrin) 81 mg PO DAILY [facility] Last Admin: 08/02/18 10:28 Dose: 81 mg Atorvastatin Calcium (Lipitor) 10 mg PO DIN [facility] Last Admin: 08/02/18 17:40 Dose: 10 mg Calcium Carbonate (Oscal) 500 mg PO DAILY [facility] Cholecalciferol (Vitamin D) 1,000 intlu PO DAILY [facility] Last Admin: 08/02/18 10:28 Dose: 1,000 intlu Cyanocobalamin (Vitamin B12 1000 Mcg Tab) 1,000 mcg PO BID [facility] Last Admin: 08/02/18 17:40 Dose: 1,000 mcg Furosemide (Lasix) 40 mg PO BID [facility] Last Admin: 08/02/18 17:40 Dose: 40 mg Heparin Sodium (Porcine) (Heparin) 5,000 units SC Q8 [facility]; Protocol Last Admin: 08/03/18 05:05 Dose: Not Given Aztreonam (Azactam 1 Gm) 100 mls @ 100 mls/hr IVPB Q12 [facility]; Protocol Stop: 08/05/18 22:01 Last Admin: 08/02/18 22:22 Dose: 100 mls/hr Linezolid (Zyvox 600mg/300ml D5w) 600 mg in 300 mls @ 200 mls/hr IVPB Q12 [facility]; Protocol Stop: 08/05/18 23:46 Last Admin: 08/02/18 22:22 Dose: 200 mls/hr Insulin Human Regular (Humulin R Low) 0 units SC ACHS [facility]; Protocol Last Admin: 08/03/18 08:04 Dose: 1 unit Isosorbide Mononitrate (Imdur) 60 mg PO DAILY [facility] Last Admin: 08/02/18 10:26 Dose: 60 mg Lisinopril (Zestril) 5 mg PO DAILY [facility] Last Admin: 08/02/18 10:26 Dose: 5 mg Metolazone (Zaroxolyn) 2.5 mg PO DAILY [facility] Last Admin: 08/02/18 10:28 Dose: 2.5 mg Metoprolol Tartrate (Lopressor) 100 mg PO BRKDIN [facility] Last Admin: 08/03/18 08:04 Dose: 100 mg Multivitamins (Thera Tab) 1 tab PO DAILY [facility] Last Admin: 08/02/18 10:28 Dose: 1 tab Pantoprazole Sodium (Protonix Ec Tab) 40 mg PO 0600 [facility] Last Admin: 08/03/18 05:54 Dose: 40 mg Primidone (Mysoline) 50 mg PO HS [facility] Last Admin: 08/02/18 22:23 Dose: 50 mg Spironolactone (Aldactone) 25 mg PO DAILY [facility] Last Admin: 08/02/18 10:28 Dose: 25 mg - Labs Labs: 08/03/18 05:30 08/03/18 05:30 PT 14.3 SECONDS (9.4-12.5) H 07/29/18 17:30 INR 1.25 07/29/18 17:30 APTT 35.1 Seconds (25.1-36.5) 07/29/18 17:30 - Constitutional Appears: Well, Non-toxic, No Acute Distress - Extremities Exam Additional comments: Lower extremity focused exam: Vasc: DP 1/4, PT 1/4 bilaterally, CFT <3 seconds to digits, TG warm to warm, +1 pitting edema noted circumfrentially to legs bilaterally Ortho: No pain on palpation left plantar foot wound. Partial left hallux amputation and second digit amputation. Rigid hammertoe contractures to lesser digits on the R foot, no tenderness upon palpation upon calf compression bilaterallly Neuro: Gross sensation intact, protective sensation absent Derm: Left plantar submetatarsal head 1 ulceration measuring approximately 0.1 x 0.1 x 0.1 cm - noted to have a 100% granular base with evidence of epithelialization, mild serosanginous drainage appreciated, no probe to bone, no malodor, no tunneling or tracking. No cellulitis or erythema noted. - Neurological Exam Neurological Exam: Alert, Awake, Oriented x3 - Psychiatric Exam Psychiatric exam: Normal Affect, Normal Mood Assessment and Plan - Assessment and Plan (Free Text) Assessment: 73F with left submetatarsal 1 ulceration Plan: Patient seen and evaluated Discussed with attending, Dr. Milana TEAGUE, WBC 7.3 L foot x-ray (07/31); No OM appreciated L foot wound culture (07/30): coagulase neg staphylococcus Continue local wound care: saline cleanse, optifoam Continue multipodus boots at all times in bed ID recs appreciated - continue Zyovx and Azactam day 5 for 7-10 days Podiatry will continue to follow
[2018-08-03] MEDS: Aztreonam 1 Gm in NS 100mL 100 ML IVPB SCH ×2 (10:07→21:20)
[2018-08-03] MEDS: Cholecalciferol 1,000 INTLU TAB PO SCH (10:14)
[2018-08-03] MEDS: Multivitamin Therapeutic Tab PO SCH (10:14)
[2018-08-03] MEDS: Linezolid 600 mg in D5W 300 ml 600 MG/300 ML BAG IVPB SCH ×2 (11:11→21:20)
[2018-08-03] MEDS ORDERED: metOLazone 5 MG TAB PO SCH (12:06)
--- NOTE | 2018-08-03 12:22 | RAD ---
Date of service: 08/03/2018 HISTORY: shortness of breath, chf COMPARISON: 08/01/2018 FINDINGS: LUNGS: Improved vascular and interstitial congestion PLEURA: No significant pleural effusion identified, no pneumothorax apparent. CARDIOVASCULAR: Moderate cardiomegaly. OSSEOUS STRUCTURES: No significant abnormalities. VISUALIZED UPPER ABDOMEN: Normal. OTHER FINDINGS: None. IMPRESSION: Improved CHF
--- NOTE | 2018-08-03 12:25 | CP.PCM.PN ---
<Tiffany Egan - Last Filed: 08/03/18 12:22> Subjective - Date & Time of Evaluation Date of Evaluation: 08/03/18 Time of Evaluation: 10:10 - Subjective Subjective: PGY-1 Medicine Progress Note Patient seen and examined at bedside. Patient reports improved breathing requiring no nasal cannula. Patient denies chest pain, sob, n/v, constipation or diarrhea, dysuria. Objective - Vital Signs/Intake and Output Vital Signs (last 24 hours): Temp Pulse Resp BP Pulse Ox 98.0 F 74 19 125/75 97 08/03/18 05:38 08/03/18 10:05 08/03/18 05:38 08/03/18 10:14 08/03/18 05:38 Intake and Output: 08/03/18 08/03/18 06:59 18:59 Intake Total 540 Output Total 800 Balance -260 - Medications Medications: Current Medications Acetaminophen (Tylenol 325mg Tab) 650 mg PO Q6H PRN PRN Reason: Pain, Mild (1-3) Last Admin: 08/02/18 22:23 Dose: 650 mg Albuterol/Ipratropium (Duoneb 3 Mg/0.5 Mg (3 Ml) Ud) 3 ml IH [id number] PRN PRN Reason: Shortness of Breath Last Admin: 08/02/18 05:48 Dose: 3 ml Ascorbic Acid (Vitamin C 500 Mg Tab) 500 mg PO DAILY [facility] Last Admin: 08/03/18 10:14 Dose: 500 mg Aspirin (Ecotrin) 81 mg PO DAILY [facility] Last Admin: 08/03/18 10:14 Dose: 81 mg Atorvastatin Calcium (Lipitor) 10 mg PO DIN [facility] Last Admin: 08/02/18 17:40 Dose: 10 mg Calcium Carbonate (Oscal) 500 mg PO DAILY [facility] Last Admin: 08/03/18 10:14 Dose: 500 mg Cholecalciferol (Vitamin D) 1,000 intlu PO DAILY [facility] Last Admin: 08/03/18 10:14 Dose: 1,000 intlu Cyanocobalamin (Vitamin B12 1000 Mcg Tab) 1,000 mcg PO BID [facility] Last Admin: 08/03/18 10:14 Dose: 1,000 mcg Furosemide (Lasix) 40 mg PO BID [facility] Last Admin: 08/03/18 10:14 Dose: 40 mg Heparin Sodium (Porcine) (Heparin) 5,000 units SC Q8 [facility]; Protocol Last Admin: 08/03/18 05:05 Dose: Not Given Aztreonam (Azactam 1 Gm) 100 mls @ 100 mls/hr IVPB Q12 [id number]; Protocol Stop: 08/05/18 22:01 Last Admin: 08/03/18 10:07 Dose: 100 mls/hr Linezolid (Zyvox 600mg/300ml D5w) 600 mg in 300 mls @ 200 mls/hr IVPB Q12 [id number]; Protocol Stop: 08/05/18 23:46 Last Admin: 08/03/18 11:11 Dose: 200 mls/hr Insulin Human Regular (Humulin R Low) 0 units SC ACHS [facility]; Protocol Last Admin: 08/03/18 08:04 Dose: 1 unit Isosorbide Mononitrate (Imdur) 60 mg PO DAILY [facility] Last Admin: 08/03/18 10:14 Dose: 60 mg Lisinopril (Zestril) 5 mg PO DAILY [facility] Last Admin: 08/03/18 10:05 Dose: 5 mg Metolazone (Zaroxolyn) 2.5 mg PO DAILY [facility] Last Admin: 08/02/18 10:28 Dose: 2.5 mg Metoprolol Tartrate (Lopressor) 100 mg PO BRKDIN [facility] Last Admin: 08/03/18 08:04 Dose: 100 mg Multivitamins (Thera Tab) 1 tab PO DAILY [facility] Last Admin: 08/03/18 10:14 Dose: 1 tab Pantoprazole Sodium (Protonix Ec Tab) 40 mg PO 0600 [facility] Last Admin: 08/03/18 05:54 Dose: 40 mg Primidone (Mysoline) 50 mg PO HS [facility] Last Admin: 08/02/18 22:23 Dose: 50 mg Spironolactone (Aldactone) 25 mg PO DAILY [facility] Last Admin: 08/02/18 10:28 Dose: 25 mg - Labs Labs: 08/03/18 05:30 08/03/18 05:30 PT 14.3 SECONDS (9.4-12.5) H 07/29/18 17:30 INR 1.25 07/29/18 17:30 APTT 35.1 Seconds (25.1-36.5) 07/29/18 17:30 - Additional Findings Additional findings: - Constitutional Appears: Non-toxic, No Acute Distress - Head Exam Head Exam: NORMAL INSPECTION, NORMOCEPHALIC - Eye Exam Eye Exam: EOMI, Normal appearance. absent: Nystagmus, Scleral icterus - Respiratory Exam Respiratory Exam: Clear to Ausculation Bilateral, NORMAL BREATHING PATTERN. absent: Rales, Rhonchi, Wheezes - Cardiovascular Exam Cardiovascular Exam: REGULAR RHYTHM, +S1, +S2 - GI/Abdominal Exam GI & Abdominal Exam: Soft, Normal Bowel Sounds. absent: Distended, Firm, Guarding, Tenderness Additional comments: colostomy bag in place - Extremities Exam Extremities Exam: Normal Inspection. absent: Calf Tenderness, Pedal Edema Additional comments: currently wearing multipodus boots submetatarsal 1 ulceration dressed wtih xeroform optifoam and DSD - Neurological Exam Neurological Exam: Alert, Awake, Oriented x3 - Psychiatric Exam Psychiatric exam: Normal Affect, Normal Mood - Skin Skin Exam: Intact, Normal Color Assessment and Plan - Assessment and Plan (Free Text) Assessment: Patient is a 73 F, with PMH CAD s/p CABG & AICD, systolic CHF (EF 30s, 2017, RV SP 24) with End-staged dilated cardiomyopathy s/p IV home inotropic therapy, diabetes with L toe amputation, AAA repair, colostomy s/p colectomy due to ischemic colitis, CKD stage 4, and chronic ataxia with DJD, admitted for systolic CHF exacerbation and community acquired pneumonia. On milirinone and lasix 40mg IVP bid for exacerbation of chf. Discontinued milirinone as per cardio. Hyponatremia noted will trend daily weights and Is/Os for further medication adjustments. Nero consulted for worsening hyponatremia and VALE. Tolvaptan was administered yesterday. Plan: Acute Exacerbation of CHF Cardio consult: - Will change to Lasix 40 mg PO bid, Held lisinopril 5 mg qd, spirinolactone 25 mg qd in setting of hyponatremia Echo from 07/31- Dilated LV. Moderate to severe LV hypokinesis. Moderate MR and TR. Dilated LA and RA. Moderate pulmonary hypertension. PPM in RV noted. LVEF: 30% Strict I/O and daily weights, fluid restriction 1200 with diet; Lasix 40mg po bid Continue with Lopressor 100 mg bid, aspirin 81 mg, imdur 60 mg qd, lipitor 10 mg qd, Metolazone 2.5mg po daily. Community acquired Pneumonia ID consulted- Dr. Trevino- Continue on Azactam 1 gm IV q12h (Day 6) and Zyvox 600 mg IV q12h (Day 6) Chest xray from 08/01-There is moderate vascular congestion and interstitial infiltrate at the right lung base. MRSA-negative, Urine culture-multiple species, probable contamination, Blood culture-no growth after 3 days, procalcitonin: 0.07, L.pneumophilia ag: negative No leukocytosis, afebrile, asymptomatic VALE on CKD stage 4 Nephro Consulted- Dr. Cedeno- recs appreciated Likely prerenal in the setting of over diuresis Switched Lasix to 40 po bid Monitor with repeat CMPs Hyponatremia Nephro consulted: Dr. Cedeno- Tolvaptan 15mg x 1, Held lisinopril 5 mg qd, spirinolactone 25 mg qd in setting of hyponatremia Fluid restrictio; Lasix 40mg po bid Strict I/O and daily weights; Repeat CMP in AM Hypocalcemia noted likely 2/2 diuretic use vs. Vit. D deficiency Dr. Cedeno consulted- recommendations appreciated Ca today: 8.2. Calcium carbonate 500 mg daily Vit D level 25.9; Cholecalciferol 1000 intlu po daily Left submetatarsal ulceration and stage 1 sacral ulcer ID consulted - Dr. Trevino - recommendations appreciated Podiatry consulted- Submetarsal 1 ulceration cleansed with saline and dressed with Optifoam and DSD after surgical debridement yesterday. Foot Xrays shows no signs of osteomyelitis Sub met 1 hallux wound cultured: coagulase negative staph. Await ID reccs. Continue with Zyvox and Azactam Lower extremity weakness and gait dysfunction Complains of right hip/lower extremity pain-ordered Tylenol 650 mg po Q6h prn Likely 2/2 DJD Podiatry to follow while in house ambulates with walker and assistance at home DM ISS- low dose ACHS Chronic anemia Hemodynamically stable Continue to monitor with serial CBCs Essential tremor Primidone 50mg po HS PPx GI ppx- Protonix 40 mg qd DVT ppx- heparin 5000 C q8h Medical Management discussed with Dr. Pablo PGY-1 Tiffany Egan <Sofía Pablo - Last Filed: 08/03/18 16:06> Objective - Vital Signs/Intake and Output Vital Signs (last 24 hours): Temp Pulse Resp BP Pulse Ox 98.1 F 97 H 18 146/83 97 08/03/18 12:00 08/03/18 12:00 08/03/18 12:00 08/03/18 12:00 08/03/18 05:38 Intake and Output: 08/03/18 08/03/18 06:59 18:59 Intake Total 540 Output Total 800 Balance -260 - Medications Medications: Current Medications Acetaminophen (Tylenol 325mg Tab) 650 mg PO Q6H PRN PRN Reason: Pain, Mild (1-3) Last Admin: 08/02/18 22:23 Dose: 650 mg Albuterol/Ipratropium (Duoneb 3 Mg/0.5 Mg (3 Ml) Ud) 3 ml IH [id number] PRN PRN Reason: Shortness of Breath Last Admin: 08/02/18 05:48 Dose: 3 ml Ascorbic Acid (Vitamin C 500 Mg Tab) 500 mg PO DAILY [facility] Last Admin: 08/03/18 10:14 Dose: 500 mg Aspirin (Ecotrin) 81 mg PO DAILY [facility] Last Admin: 08/03/18 10:14 Dose: 81 mg Atorvastatin Calcium (Lipitor) 10 mg PO DIN [facility] Last Admin: 08/02/18 17:40 Dose: 10 mg Calcium Carbonate (Oscal) 500 mg PO DAILY [facility] Last Admin: 08/03/18 10:14 Dose: 500 mg Cholecalciferol (Vitamin D) 1,000 intlu PO DAILY [facility] Last Admin: 08/03/18 10:14 Dose: 1,000 intlu Cyanocobalamin (Vitamin B12 1000 Mcg Tab) 1,000 mcg PO BID [facility] Last Admin: 08/03/18 10:14 Dose: 1,000 mcg Furosemide (Lasix) 40 mg PO BID [facility] Last Admin: 08/03/18 10:14 Dose: 40 mg Heparin Sodium (Porcine) (Heparin) 5,000 units SC Q8 [facility]; Protocol Last Admin: 08/03/18 14:31 Dose: Not Given Aztreonam (Azactam 1 Gm) 100 mls @ 100 mls/hr IVPB Q12 [facility]; Protocol Stop: 08/05/18 22:01 Last Admin: 08/03/18 10:07 Dose: 100 mls/hr Linezolid (Zyvox 600mg/300ml D5w) 600 mg in 300 mls @ 200 mls/hr IVPB Q12 [facility]; Protocol Stop: 08/05/18 23:46 Last Admin: 08/03/18 11:11 Dose: 200 mls/hr Insulin Human Regular (Humulin R Low) 0 units SC ACHS [facility]; Protocol Last Admin: 08/03/18 12:21 Dose: 2 unit Isosorbide Mononitrate (Imdur) 60 mg PO DAILY [facility] Last Admin: 08/03/18 10:14 Dose: 60 mg Lisinopril (Zestril) 5 mg PO DAILY [facility] Last Admin: 08/03/18 10:05 Dose: 5 mg Metolazone (Zaroxolyn) 5 mg PO DAILY [facility] Metoprolol Tartrate (Lopressor) 100 mg PO BRKDIN [facility] Last Admin: 08/03/18 08:04 Dose: 100 mg Multivitamins (Thera Tab) 1 tab PO DAILY [facility] Last Admin: 08/03/18 10:14 Dose: 1 tab Pantoprazole Sodium (Protonix Ec Tab) 40 mg PO 0600 [facility] Last Admin: 08/03/18 05:54 Dose: 40 mg Primidone (Mysoline) 50 mg PO HS [facility] Last Admin: 08/02/18 22:23 Dose: 50 mg Spironolactone (Aldactone) 25 mg PO DAILY [facility] Last Admin: 08/02/18 10:28 Dose: 25 mg - Labs Labs: 08/03/18 05:30 08/03/18 05:30 PT 14.3 SECONDS (9.4-12.5) H 07/29/18 17:30 INR 1.25 07/29/18 17:30 APTT 35.1 Seconds (25.1-36.5) 07/29/18 17:30 Attending/Attestation - Attestation I have personally seen and examined this patient.: Yes I have fully participated in the care of the patient.: Yes I have reviewed all pertinent clinical information, including history, physical exam and plan: Yes Notes (Text): 08/03/18 15:59 Medical record note made by the resident after discussion with my direction and input after the patient was personally seen and examined by me. I have reviewed the chart and agree that the record accurately reflects by personal performance of the history, physical exam, data review, and medical decision-making, in the course for the patient. I have also personally directed the plan of care. 73 F, with PMH CAD s/p CABG & AICD, systolic CHF (EF 30s, 2017, RVSP 24) with End-staged dilated cardiomyopathy previously was IV home inotropic therapy, diabetes with L toe amputation, AAA repair, colostomy s/p colectomy due to ischemic colitis, CKD stage 4, and chronic ataxia with DJD,was admitted for acute on chronic systolic CHF exacerbation and pneumonia. CHF .She is SP milirinone and IV lasix 40mg IVP BID Leg Now on oral lasix.Leg swelling and lung congestion has improved.She is also on Lisinopril and Metoprolol. Pneumonia, Procalcitonin level was normal.Antibiotics can be changed to oral,ID is following. Left foot infected Diabetic foot, SP I/D wound cultures are growing coagulase negative stap.Foot X ray was negative for osteomylitis. ID and Podiatry is following Hyponatremia is likely due to overdiuresis. Hyponatremia is stable.Nephrology is following. Management plan was discussed in detail with patient. Education was provided. 08/03/18 16:05
[2018-08-03] MEDS ORDERED: Oxycodone/Acetaminophen 5/325 mg Tab PO ONE (14:40)
--- NOTE | 2018-08-03 16:00 | CP.PCM.PN ---
Subjective - Date & Time of Evaluation Date of Evaluation: 08/03/18 Time of Evaluation: 11:40 - Subjective Subjective: Left leg and foot is feeling better, no fevers, not in distress. Objective - Vital Signs/Intake and Output Vital Signs (last 24 hours): Temp Pulse Resp BP Pulse Ox 98.0 F 74 19 125/75 97 08/03/18 05:38 08/03/18 10:05 08/03/18 05:38 08/03/18 10:14 08/03/18 05:38 Intake and Output: 08/03/18 08/03/18 06:59 18:59 Intake Total 540 Output Total 800 Balance -260 - Medications Medications: Current Medications Acetaminophen (Tylenol 325mg Tab) 650 mg PO Q6H PRN PRN Reason: Pain, Mild (1-3) Last Admin: 08/02/18 22:23 Dose: 650 mg Albuterol/Ipratropium (Duoneb 3 Mg/0.5 Mg (3 Ml) Ud) 3 ml IH [id number] PRN PRN Reason: Shortness of Breath Last Admin: 08/02/18 05:48 Dose: 3 ml Ascorbic Acid (Vitamin C 500 Mg Tab) 500 mg PO DAILY [facility] Last Admin: 08/03/18 10:14 Dose: 500 mg Aspirin (Ecotrin) 81 mg PO DAILY [facility] Last Admin: 08/03/18 10:14 Dose: 81 mg Atorvastatin Calcium (Lipitor) 10 mg PO DIN [facility] Last Admin: 08/02/18 17:40 Dose: 10 mg Calcium Carbonate (Oscal) 500 mg PO DAILY [facility] Last Admin: 08/03/18 10:14 Dose: 500 mg Cholecalciferol (Vitamin D) 1,000 intlu PO DAILY [facility] Last Admin: 08/03/18 10:14 Dose: 1,000 intlu Cyanocobalamin (Vitamin B12 1000 Mcg Tab) 1,000 mcg PO BID [facility] Last Admin: 08/03/18 10:14 Dose: 1,000 mcg Furosemide (Lasix) 40 mg PO BID [facility] Last Admin: 08/03/18 10:14 Dose: 40 mg Heparin Sodium (Porcine) (Heparin) 5,000 units SC Q8 [facility]; Protocol Last Admin: 08/03/18 05:05 Dose: Not Given Aztreonam (Azactam 1 Gm) 100 mls @ 100 mls/hr IVPB Q12 [facility]; Protocol Stop: 08/05/18 22:01 Last Admin: 08/03/18 10:07 Dose: 100 mls/hr Linezolid (Zyvox 600mg/300ml D5w) 600 mg in 300 mls @ 200 mls/hr IVPB Q12 [facility]; Protocol Stop: 08/05/18 23:46 Last Admin: 08/03/18 11:11 Dose: 200 mls/hr Insulin Human Regular (Humulin R Low) 0 units SC ACHS [facility]; Protocol Last Admin: 08/03/18 08:04 Dose: 1 unit Isosorbide Mononitrate (Imdur) 60 mg PO DAILY [facility] Last Admin: 08/03/18 10:14 Dose: 60 mg Lisinopril (Zestril) 5 mg PO DAILY [facility] Last Admin: 08/03/18 10:05 Dose: 5 mg Metolazone (Zaroxolyn) 2.5 mg PO DAILY [facility] Last Admin: 08/02/18 10:28 Dose: 2.5 mg Metoprolol Tartrate (Lopressor) 100 mg PO BRKDIN [facility] Last Admin: 08/03/18 08:04 Dose: 100 mg Multivitamins (Thera Tab) 1 tab PO DAILY [facility] Last Admin: 08/03/18 10:14 Dose: 1 tab Pantoprazole Sodium (Protonix Ec Tab) 40 mg PO 0600 [facility] Last Admin: 08/03/18 05:54 Dose: 40 mg Primidone (Mysoline) 50 mg PO HS [facility] Last Admin: 08/02/18 22:23 Dose: 50 mg Spironolactone (Aldactone) 25 mg PO DAILY [facility] Last Admin: 08/02/18 10:28 Dose: 25 mg - Labs Labs: 08/03/18 05:30 08/03/18 05:30 PT 14.3 SECONDS (9.4-12.5) H 07/29/18 17:30 INR 1.25 07/29/18 17:30 APTT 35.1 Seconds (25.1-36.5) 07/29/18 17:30 - Constitutional Appears: Chronically Ill - Head Exam Head Exam: NORMAL INSPECTION - Neck Exam Neck Exam: absent: Meningismus - Respiratory Exam Respiratory Exam: Decreased Breath Sounds - Cardiovascular Exam Cardiovascular Exam: +S1, +S2 - GI/Abdominal Exam GI & Abdominal Exam: Soft. absent: Tenderness Assessment and Plan - Assessment and Plan (Free Text) Plan: Assessment left leg cellulitis as well as right sided community-acquired pneumonia S/P left foot 2nd digit skin and skin structure infection CAD S/P CABG abdominal aortic aneurysm S/P repair S/P cholecystectomy S/P pacemaker placement DM S/P left toe amputation Plan continue Zyovx and Azactam day 5 for 7-10 days
--- NOTE | 2018-08-03 17:15 | PN ---
DATE: 08/03/2018 SUBJECTIVE: The patient has no complaints of any chest pain, no shortness of breath. PHYSICAL EXAMINATION: VITAL SIGNS: Temperature is 98, pulse is 75, blood pressure is 125/75, respirations 19, O2 saturation 97%. GENERAL: The patient is lying in bed, flat, comfortable. HEENT: No oral lesion. Anicteric sclerae. Moist mucosa. NECK: No JVD, adenopathy, or thyromegaly. CARDIOVASCULAR: S1 and S2, regular. No murmurs, rubs, or gallops. LUNGS: Clear to auscultation bilaterally. No wheeze, rales, or rhonchi. ABDOMEN: Bowel sounds are positive, soft, nontender and nondistended. EXTREMITIES: No cyanosis, clubbing or edema. LABORATORY DATA: White count is 7.3, hemoglobin of 11.6. Chemistry shows sodium of 125, creatinine is 2.1, iron saturation is 16%. Urine sodium is 16. Urine osmolality is 245. ASSESSMENT: 1. Hyponatremia. 2. Acute kidney injury with chronic kidney disease 3. 3. Congestive heart failure secondary to systolic dysfunction with ejection fraction of 30%. 4. Coronary artery disease status post coronary artery bypass grafting. 5. Diabetes type 2. 6. Lower extremity edema. 7. Community-acquired pneumonia. 8. Left leg cellulitis. PLAN: The patient has hyponatremia. The patient's sodium is stable at 125. She is on Aldactone for her CHF, but has been placed on hold. She is receiving aztreonam for antibiotics. She has blood cultures that have been negative. She does have coag-negative staph on her wound culture. The patient is on Lipitor for dyslipidemia. The patient is on lisinopril for her CHF. She is getting antibiotics with the linezolid. Her BNP was significantly elevated when she came into the hospital. She had a chest x-ray that shows moderate vascular congestion. The patient will need fluid restriction. I think that the patient is hypovolemic given the chest x-ray, lower extremity edema and elevated BNP. The patient had 1800 of urine output, a total in was 1020. She should continue with diuresis. The patient was given a dose of tolvaptan yesterday. She is receiving metolazone. The patient is on Lasix 40 mg b.i.d. I will increase the patient's Zaroxolyn to 5 mg. To continue with the diuresis process. The patient's blood pressure is 125/75, so she could be able to tolerate. The patient has left leg cellulitis and community-acquired pneumonia. The patient's ferritin is pending, maybe iron deficient and we will await ferritin results. She has a chest x-ray that has been ordered and the result is pending. I did review the ID note. The patient is on day #5 of antibiotics with Zyvox and Azactam. THE PATIENT HAS PENICILLIN ALLERGY. This is coverage from Nephrology with Dr. Cedeno. Lucas Hernandez MD
[2018-08-04] MEDS ORDERED: Oxycodone/Acetaminophen 5/325 mg Tab PO STA (02:10)
[2018-08-04] MEDS: Albuterol-Ipratrop 3 mg / 0.5 (3 ml) UD IH PRN ×2 (02:32→07:50)
[2018-08-04] MEDS ORDERED: Albuterol-Ipratrop 3 mg / 0.5 (3 ml) UD IH STA (03:29)
--- NOTE | 2018-08-04 06:26 | CP.PCM.PN ---
Subjective - Date & Time of Evaluation Date of Evaluation: 08/04/18 Time of Evaluation: 09:45 - Subjective Subjective: PGY-1 Medicine Progress Note for Dr. Pablo's service Patient seen and examined at bedside. Patient offers no acute complaints. Patient later in the day complained of leg pain. Patient denies fevers, chills, chest pain, sob, n/v, constipation or diarrhea, weakness. Objective - Vital Signs/Intake and Output Vital Signs (last 24 hours): Temp Pulse Resp BP Pulse Ox 98 F 81 20 149/99 H 99 08/04/18 00:01 08/04/18 05:21 08/04/18 03:01 08/04/18 03:14 08/04/18 03:01 Intake and Output: 08/03/18 08/04/18 18:59 06:59 Intake Total 1000 240 Output Total 3000 300 Balance -1999 -60 - Medications Medications: Current Medications Acetaminophen (Tylenol 325mg Tab) 650 mg PO Q6H PRN PRN Reason: Pain, Mild (1-3) Last Admin: 08/03/18 21:22 Dose: 650 mg Albuterol/Ipratropium (Duoneb 3 Mg/0.5 Mg (3 Ml) Ud) 3 ml IH [id number] PRN PRN Reason: Shortness of Breath Last Admin: 08/04/18 02:32 Dose: 3 ml Ascorbic Acid (Vitamin C 500 Mg Tab) 500 mg PO DAILY [facility] Last Admin: 08/03/18 10:14 Dose: 500 mg Aspirin (Ecotrin) 81 mg PO DAILY [facility] Last Admin: 08/03/18 10:14 Dose: 81 mg Atorvastatin Calcium (Lipitor) 10 mg PO DIN [facility] Last Admin: 08/03/18 17:55 Dose: 10 mg Calcium Carbonate (Oscal) 500 mg PO DAILY [facility] Last Admin: 08/03/18 10:14 Dose: 500 mg Cholecalciferol (Vitamin D) 1,000 intlu PO DAILY [facility] Last Admin: 08/03/18 10:14 Dose: 1,000 intlu Cyanocobalamin (Vitamin B12 1000 Mcg Tab) 1,000 mcg PO BID [facility] Last Admin: 08/03/18 17:57 Dose: 1,000 mcg Furosemide (Lasix) 40 mg PO BID [facility] Last Admin: 08/03/18 17:55 Dose: 40 mg Heparin Sodium (Porcine) (Heparin) 5,000 units SC Q8 [facility]; Protocol Last Admin: 08/03/18 21:18 Dose: 5,000 units Aztreonam (Azactam 1 Gm) 100 mls @ 100 mls/hr IVPB Q12 [facility]; Protocol Stop: 08/05/18 22:01 Last Admin: 08/03/18 21:20 Dose: 100 mls/hr Linezolid (Zyvox 600mg/300ml D5w) 600 mg in 300 mls @ 200 mls/hr IVPB Q12 [facility]; Protocol Stop: 08/05/18 23:46 Last Admin: 08/03/18 21:20 Dose: 200 mls/hr Insulin Human Regular (Humulin R Low) 0 units SC ACHS [facility]; Protocol Last Admin: 08/03/18 23:11 Dose: Not Given Isosorbide Mononitrate (Imdur) 60 mg PO DAILY [facility] Last Admin: 08/03/18 10:14 Dose: 60 mg Lisinopril (Zestril) 5 mg PO DAILY [facility] Last Admin: 08/03/18 10:05 Dose: 5 mg Metolazone (Zaroxolyn) 5 mg PO DAILY [facility] Metoprolol Tartrate (Lopressor) 100 mg PO BRKDIN [facility] Last Admin: 08/03/18 17:55 Dose: 100 mg Multivitamins (Thera Tab) 1 tab PO DAILY [facility] Last Admin: 08/03/18 10:14 Dose: 1 tab Pantoprazole Sodium (Protonix Ec Tab) 40 mg PO 0600 [facility] Last Admin: 08/03/18 05:54 Dose: 40 mg Primidone (Mysoline) 50 mg PO HS [facility] Last Admin: 08/03/18 21:18 Dose: 50 mg Spironolactone (Aldactone) 25 mg PO DAILY [facility] Last Admin: 08/02/18 10:28 Dose: 25 mg - Labs Labs: 08/03/18 05:30 08/03/18 05:30 PT 14.3 SECONDS (9.4-12.5) H 07/29/18 17:30 INR 1.25 07/29/18 17:30 APTT 35.1 Seconds (25.1-36.5) 07/29/18 17:30 - Additional Findings Additional findings: - Constitutional Appears: Non-toxic, No Acute Distress - Head Exam Head Exam: NORMAL INSPECTION, NORMOCEPHALIC - Eye Exam Eye Exam: EOMI, Normal appearance. absent: Nystagmus, Scleral icterus - Respiratory Exam Respiratory Exam: Clear to Ausculation Bilateral, NORMAL BREATHING PATTERN. absent: Rales, Rhonchi, Wheezes - Cardiovascular Exam Cardiovascular Exam: REGULAR RHYTHM, +S1, +S2 - GI/Abdominal Exam GI & Abdominal Exam: Soft, Normal Bowel Sounds. absent: Distended, Firm, Guarding, Tenderness Additional comments: colostomy bag in place - Extremities Exam Extremities Exam: Normal Inspection. absent: Calf Tenderness, Pedal Edema Additional comments: currently wearing multipodus boots submetatarsal 1 ulceration dressed wtih xeroform optifoam and DSD - Neurological Exam Neurological Exam: Alert, Awake, Oriented x3 - Psychiatric Exam Psychiatric exam: Normal Affect, Normal Mood - Skin Skin Exam: Intact, Normal Color Assessment and Plan - Assessment and Plan (Free Text) Assessment: Patient is a 73 F, with PMH CAD s/p CABG & AICD, systolic CHF (EF 30s, 2017, RVSP 24) with End-staged dilated cardiomyopathy s/p IV home inotropic therapy, diabetes with L toe amputation, AAA repair, colostomy s/p colectomy due to ischemic colitis, CKD stage 4, and chronic ataxia with DJD, admitted for systolic CHF exacerbation and community acquired pneumonia. On milirinone and lasix 40mg IVP bid for exacerbation of chf. Discontinued milirinone as per cardio. Hyponatremia noted will trend daily weights and Is/Os for further medication adjustments. Nero consulted for worsening hyponatremia and VALE. Tolvaptan was administered yesterday. TCU eval placed. Course of Abx to be completed 08/04 and 08/05 for azactam and Linezolid respectively Plan: Acute Exacerbation of CHF Cardio consult: - Will change to Lasix 40 mg PO bid, Held lisinopril 5 mg qd, spirinolactone 25 mg qd in setting of hyponatremia Echo from 07/31- Dilated LV. Moderate to severe LV hypokinesis. Moderate MR and TR. Dilated LA and RA. Moderate pulmonary hypertension. PPM in RV noted. LVEF: 30% Strict I/O and daily weights, fluid restriction 1200 with diet; Lasix 40mg po bid Continue with Lopressor 100 mg bid, aspirin 81 mg, imdur 60 mg qd, lipitor 10 mg qd, Metolazone 2.5mg po daily. Community acquired Pneumonia ID consulted- Dr. Trevino- Continue on Azactam 1 gm IV q12h (Day 8) and Zyvox 600 mg IV q12h (Day 7) Chest xray from 08/01-There is moderate vascular congestion and interstitial infiltrate at the right lung base. MRSA-negative, Urine culture-multiple species, probable contamination, Blood culture-no growth after 3 days, procalcitonin: 0.07, L.pneumophilia ag: negative No leukocytosis, afebrile, asymptomatic VALE on CKD stage 4 Nephro Consulted- Dr. Cedeno- recs updated as below Likely prerenal in the setting of over diuresis Switched Lasix to 40 po bid, continue metolazone, fluid restriction Monitor with repeat CMPs Hyponatremia Nephro consulted: Dr. Cedeno- Tolvaptan 15mg x 1, Held lisinopril 5 mg qd, spirinolactone 25 mg qd in setting of hyponatremia Fluid restrictio; Lasix 40mg po bid Strict I/O and daily weights; Repeat CMP in AM Hypocalcemia noted likely 2/2 diuretic use vs. Vit. D deficiency Dr. Cedeno consulted- recommendations appreciated Ca today: 8.2. Calcium carbonate 500 mg daily Vit D level 25.9; Cholecalciferol 1000 intlu po daily Left submetatarsal ulceration and stage 1 sacral ulcer ID consulted - Dr. Trevino - recommendations appreciated Podiatry consulted- Submetarsal 1 ulceration cleansed with saline and dressed with Optifoam and DSD after surgical debridement yesterday. Foot Xrays shows no signs of osteomyelitis Sub met 1 hallux wound cultured: coagulase negative staph. Await ID reccs. Continue with Zyvox and Azactam Lower extremity weakness and gait dysfunction Complains of right hip/lower extremity pain-ordered Tylenol 650 mg po Q6h prn Likely 2/2 DJD Podiatry to follow while in house ambulates with walker and assistance at home DM ISS- low dose ACHS Chronic anemia Hemodynamically stable Continue to monitor with serial CBCs Essential tremor Primidone 50mg po HS PPx GI ppx- Protonix 40 mg qd DVT ppx- heparin 5000 C q8h Medical Management discussed with Dr. Pablo PGY-1 Tiffany Egan
[2018-08-04] MEDS: Pantoprazole 40 mg EC Tab PO SCH (06:45)
[2018-08-04 07:54] LABS: BASO # 0.02 K/mm3 (0.0-2.0); BASO % 0.3 % (0.0-3.0); EOS # 0.2 (0.0-0.7); EOS % 3.4 % (1.5-5.0); GRAN # 4.77 (1.4-6.5); GRAN % 70.5 % (50.0-68.0); HEMOGLOBIN 11.9 g/dL (12.0-16.0); LYMPH # 1.3 (1.2-3.4); LYMPH % 19.4 % (22.0-35.0); MEAN CELL VOLUME 91.9 fl (80.0-105.0); MEAN CORPUSCULAR HEMOGLOBIN 30.1 pg (25.0-35.0); MEAN CORPUSCULAR HGB CONC 32.7 g/dl (31.0-37.0); MEAN PLATELET VOLUME 9.4 fl (7.0-11.0); MONO # 0.4 (0.1-0.6); MONO % 6.4 % (1.0-6.0); RBC 3.96 10^6/uL (3.5-6.1); RED CELL DISTRIBUTION WIDTH 13.9 % (11.5-14.5); WHITE BLOOD COUNT 6.8 10^3/ul (4.5-11.0)
[2018-08-04] MEDS: Insulin Reg-LOW-Coverage SC SCH ×4 (08:33→21:16)
[2018-08-04 08:48] LABS: ALB/GLOB RATIO 1.1 (1.1-1.8); ALBUMIN 3.3 g/dL (3.0-4.8); CALCIUM 8.2 mg/dL (8.4-10.5)
--- NOTE | 2018-08-04 09:57 | PN ---
DATE: 08/04/2018 SUBJECTIVE: The patient has no complaints of any chest pain. No shortness of breath. She states she does feel better. PHYSICAL EXAMINATION: VITAL SIGNS: Temperature is 98, pulse of 82, blood pressure is 147/84, respirations 20. GENERAL: The patient is lying in bed, flat, comfortable. HEENT: No oral lesion. Anicteric sclerae. Moist mucosa. NECK: No JVD, adenopathy, or thyromegaly. CARDIOVASCULAR: S1 and S2, regular. No murmurs, rubs, or gallops. LUNGS: Clear to auscultation bilaterally. No wheeze, rales, or rhonchi. ABDOMEN: Bowel sounds are positive, soft, nontender and nondistended. EXTREMITIES: No cyanosis, clubbing. Lower extremity, 1+ edema. Chest x-ray shows improved CHF. ASSESSMENT: 1. Hyponatremia. 2. Acute kidney injury with chronic kidney disease stage 3. 3. Congestive heart failure secondary to systolic dysfunction with an ejection fraction of 30%. 4. Coronary artery disease, status post coronary artery bypass graft. 5. Diabetes type 2. 6. Lower extremity edema, improving. 7. Community acquired pneumonia. 8. Left leg cellulitis. PLAN: The patient has sodium that is mildly improved at 127. She has a creatinine that is 2.2, which is about the same as the last few days. Clinically, she does feel that she is feeling that she is breathing much better. She has a chest x-ray that is improved as well. The patient is currently receiving Lasix twice a day. She is on Lipitor for dyslipidemia. She is going to continue with her metolazone. I did increase the metolazone yesterday. The patient's output has been fairly significant. She has about 3 L of urine output. She does have water at the bedside and she should have fluid restriction. She is on aztreonam for antibiotic. She has left foot culture that shows coag-negative Staph. She is currently on a renal diet. She is to have repeat blood work done again tomorrow. Continue current treatment. Lucas Hernandez MD [facility] # [id number]
[2018-08-04] MEDS: Linezolid 600 mg in D5W 300 ml 600 MG/300 ML BAG IVPB SCH ×2 (10:18→21:39)
[2018-08-04] MEDS: Cholecalciferol 1,000 INTLU TAB PO SCH (10:19)
[2018-08-04] MEDS: Multivitamin Therapeutic Tab PO SCH (10:19)
[2018-08-04] MEDS: Aztreonam 1 Gm in NS 100mL 100 ML IVPB SCH ×2 (12:37→21:38)
--- NOTE | 2018-08-04 13:34 | CP.PCM.PN ---
Subjective - Date & Time of Evaluation Date of Evaluation: 08/04/18 Time of Evaluation: 13:31 - Subjective Subjective: Podiatry - Dr. Cortés 73F seen and examined at bedside this AM concerning left foot submetatarsal 1 ulceration. Patient resting comfortably, hemodynamically stable and NAD. No acute events overnight. No new lower extremity complaints. Dressing to LLE clean/dry/intact with multipodus boots present bilaterally. Denies N/V/F/D/C/SOB/BLANCO/CP. Objective - Vital Signs/Intake and Output Vital Signs (last 24 hours): Temp Pulse Resp BP Pulse Ox 97.7 F 69 19 144/89 98 08/04/18 12:00 08/04/18 12:00 08/04/18 12:00 08/04/18 12:00 08/04/18 06:00 Intake and Output: 08/04/18 08/04/18 06:59 18:59 Intake Total 640 Output Total 300 Balance 340 - Medications Medications: Current Medications Acetaminophen (Tylenol 325mg Tab) 650 mg PO Q6H PRN PRN Reason: Pain, Mild (1-3) Last Admin: 08/03/18 21:22 Dose: 650 mg Albuterol/Ipratropium (Duoneb 3 Mg/0.5 Mg (3 Ml) Ud) 3 ml IH [id number] PRN PRN Reason: Shortness of Breath Last Admin: 08/04/18 07:50 Dose: 3 ml Ascorbic Acid (Vitamin C 500 Mg Tab) 500 mg PO DAILY [facility] Last Admin: 08/04/18 10:19 Dose: 500 mg Aspirin (Ecotrin) 81 mg PO DAILY [facility] Last Admin: 08/04/18 10:19 Dose: 81 mg Atorvastatin Calcium (Lipitor) 10 mg PO DIN [facility] Last Admin: 08/03/18 17:55 Dose: 10 mg Calcium Carbonate (Oscal) 500 mg PO DAILY [facility] Last Admin: 08/04/18 10:19 Dose: 500 mg Cholecalciferol (Vitamin D) 1,000 intlu PO DAILY [facility] Last Admin: 08/04/18 10:19 Dose: 1,000 intlu Cyanocobalamin (Vitamin B12 1000 Mcg Tab) 1,000 mcg PO BID [facility] Last Admin: 08/04/18 10:19 Dose: 1,000 mcg Furosemide (Lasix) 40 mg PO BID [facility] Last Admin: 08/04/18 10:19 Dose: 40 mg Heparin Sodium (Porcine) (Heparin) 5,000 units SC Q8 [facility]; Protocol Last Admin: 08/04/18 06:45 Dose: Not Given Aztreonam (Azactam 1 Gm) 100 mls @ 100 mls/hr IVPB Q12 [facility]; Protocol Stop: 08/05/18 22:01 Last Admin: 08/04/18 12:37 Dose: 100 mls/hr Linezolid (Zyvox 600mg/300ml D5w) 600 mg in 300 mls @ 200 mls/hr IVPB Q12 [facility]; Protocol Stop: 08/05/18 23:46 Last Admin: 08/04/18 10:18 Dose: 200 mls/hr Insulin Human Regular (Humulin R Low) 0 units SC ACHS [facility]; Protocol Last Admin: 08/04/18 12:37 Dose: 2 unit Isosorbide Mononitrate (Imdur) 60 mg PO DAILY [facility] Last Admin: 08/04/18 10:19 Dose: 60 mg Lisinopril (Zestril) 5 mg PO DAILY [facility] Last Admin: 08/04/18 10:19 Dose: 5 mg Metolazone (Zaroxolyn) 5 mg PO DAILY [facility] Metoprolol Tartrate (Lopressor) 100 mg PO BRKDIN [facility] Last Admin: 08/04/18 08:33 Dose: 100 mg Multivitamins (Thera Tab) 1 tab PO DAILY [facility] Last Admin: 08/04/18 10:19 Dose: 1 tab Pantoprazole Sodium (Protonix Ec Tab) 40 mg PO 0600 [facility] Last Admin: 08/04/18 06:45 Dose: 40 mg Primidone (Mysoline) 50 mg PO HS [facility] Last Admin: 08/03/18 21:18 Dose: 50 mg Spironolactone (Aldactone) 25 mg PO DAILY [facility] Last Admin: 08/02/18 10:28 Dose: 25 mg - Labs Labs: 08/04/18 07:00 08/04/18 07:00 PT 14.3 SECONDS (9.4-12.5) H 07/29/18 17:30 INR 1.25 07/29/18 17:30 APTT 35.1 Seconds (25.1-36.5) 07/29/18 17:30 - Constitutional Appears: Well, Non-toxic, No Acute Distress - Extremities Exam Additional comments: Lower extremity focused exam: Vasc: DP 1/4, PT 1/4 bilaterally, CFT <3 seconds to digits, TG warm to warm, +1 pitting edema noted circumfrentially to legs bilaterally Ortho: No pain on palpation left plantar foot wound. Partial left hallux amputation and second digit amputation. Rigid hammertoe contractures to lesser digits on the R foot, no tenderness upon palpation upon calf compression bila terallly Neuro: Gross sensation intact, protective sensation absent Derm: Left plantar submetatarsal head 1 ulceration measuring approximately 0.1 x 0.2 x 0.1 cm - noted to have a 100% granular base with evidence of epithelialization, mild serosanginous drainage appreciated, no probe to bone, no malodor, no tunneling or tracking. No cellulitis or erythema noted. - Neurological Exam Neurological Exam: Alert, Awake, Oriented x3 - Psychiatric Exam Psychiatric exam: Normal Affect, Normal Mood Assessment and Plan - Assessment and Plan (Free Text) Assessment: 73F with left submetatarsal 1 ulceration Plan: Patient seen and evaluated Discussed with attending, Dr. Milana TEAGUE, WBC 6.8 L foot x-ray (07/31); No OM appreciated L foot wound culture (07/30): coagulase neg staphylococcus Continue local wound care: saline cleanse, optifoam Continue multipodus boots at all times in bed ID recs appreciated - continue Zyovx and Azactam day 6 for 7-10 days Continue PT/OT Podiatry will continue to follow
--- NOTE | 2018-08-04 14:27 | CP.PCM.PN ---
Subjective - Date & Time of Evaluation Date of Evaluation: 08/04/18 Time of Evaluation: 13:00 - Subjective Subjective: No fevers, no increased pain in the left foot or leg. Objective - Vital Signs/Intake and Output Vital Signs (last 24 hours): Temp Pulse Resp BP Pulse Ox 98 F 83 20 152/88 H 98 08/04/18 06:00 08/04/18 06:00 08/04/18 06:00 08/04/18 06:00 08/04/18 06:00 Intake and Output: 08/04/18 08/04/18 06:59 18:59 Intake Total 640 Output Total 300 Balance 340 - Medications Medications: Current Medications Acetaminophen (Tylenol 325mg Tab) 650 mg PO Q6H PRN PRN Reason: Pain, Mild (1-3) Last Admin: 08/03/18 21:22 Dose: 650 mg Albuterol/Ipratropium (Duoneb 3 Mg/0.5 Mg (3 Ml) Ud) 3 ml IH [id number] PRN PRN Reason: Shortness of Breath Last Admin: 08/04/18 07:50 Dose: 3 ml Ascorbic Acid (Vitamin C 500 Mg Tab) 500 mg PO DAILY [facility] Last Admin: 08/03/18 10:14 Dose: 500 mg Aspirin (Ecotrin) 81 mg PO DAILY [facility] Last Admin: 08/03/18 10:14 Dose: 81 mg Atorvastatin Calcium (Lipitor) 10 mg PO DIN [facility] Last Admin: 08/03/18 17:55 Dose: 10 mg Calcium Carbonate (Oscal) 500 mg PO DAILY [facility] Last Admin: 08/03/18 10:14 Dose: 500 mg Cholecalciferol (Vitamin D) 1,000 intlu PO DAILY [facility] Last Admin: 08/03/18 10:14 Dose: 1,000 intlu Cyanocobalamin (Vitamin B12 1000 Mcg Tab) 1,000 mcg PO BID [facility] Last Admin: 08/03/18 17:57 Dose: 1,000 mcg Furosemide (Lasix) 40 mg PO BID [facility] Last Admin: 08/03/18 17:55 Dose: 40 mg Heparin Sodium (Porcine) (Heparin) 5,000 units SC Q8 [facility]; Protocol Last Admin: 08/04/18 06:45 Dose: Not Given Aztreonam (Azactam 1 Gm) 100 mls @ 100 mls/hr IVPB Q12 [facility]; Protocol Stop: 10/08/18 22:01 Last Admin: 08/03/18 21:20 Dose: 100 mls/hr Linezolid (Zyvox 600mg/300ml D5w) 600 mg in 300 mls @ 200 mls/hr IVPB Q12 [facility]; Protocol Stop: 08/05/18 23:46 Last Admin: 08/03/18 21:20 Dose: 200 mls/hr Insulin Human Regular (Humulin R Low) 0 units SC ACHS [facility]; Protocol Last Admin: 08/03/18 23:11 Dose: Not Given Isosorbide Mononitrate (Imdur) 60 mg PO DAILY [facility] Last Admin: 08/03/18 10:14 Dose: 60 mg Lisinopril (Zestril) 5 mg PO DAILY [facility] Last Admin: 08/03/18 10:05 Dose: 5 mg Metolazone (Zaroxolyn) 5 mg PO DAILY [facility] Metoprolol Tartrate (Lopressor) 100 mg PO BRKDIN [facility] Last Admin: 08/03/18 17:55 Dose: 100 mg Multivitamins (Thera Tab) 1 tab PO DAILY [facility] Last Admin: 08/03/18 10:14 Dose: 1 tab Pantoprazole Sodium (Protonix Ec Tab) 40 mg PO 0600 [facility] Last Admin: 08/04/18 06:45 Dose: 40 mg Primidone (Mysoline) 50 mg PO HS [facility] Last Admin: 08/03/18 21:18 Dose: 50 mg Spironolactone (Aldactone) 25 mg PO DAILY [facility] Last Admin: 08/02/18 10:28 Dose: 25 mg - Labs Labs: 08/04/18 07:00 08/03/18 05:30 PT 14.3 SECONDS (9.4-12.5) H 07/29/18 17:30 INR 1.25 07/29/18 17:30 APTT 35.1 Seconds (25.1-36.5) 07/29/18 17:30 - Constitutional Appears: No Acute Distress, Chronically Ill - Head Exam Head Exam: NORMAL INSPECTION - Respiratory Exam Respiratory Exam: Decreased Breath Sounds - Cardiovascular Exam Cardiovascular Exam: +S1, +S2 - GI/Abdominal Exam GI & Abdominal Exam: Soft. absent: Tenderness - Extremities Exam Additional comments: left leg and foot with dressings in place Assessment and Plan - Assessment and Plan (Free Text) Plan: Assessment left leg cellulitis as well as right sided community-acquired pneumonia S/P left foot 2nd digit skin and skin structure infection CAD S/P CABG abdominal aortic aneurysm S/P repair S/P cholecystectomy S/P pacemaker placement DM S/P left toe amputation Plan continue Zyvox and Azactam day 6 for 7-10 days and will monitor clinically
[2018-08-04] MEDS: Oxycodone/Acetaminophen 5/325 mg Tab PO PRN (15:30)
[2018-08-05] MEDS: Oxycodone/Acetaminophen 5/325 mg Tab PO PRN (03:49)
[2018-08-05] MEDS: Pantoprazole 40 mg EC Tab PO SCH (05:58)
[2018-08-05 07:04] LABS: BASO # 0.03 K/mm3 (0.0-2.0); BASO % 0.4 % (0.0-3.0); EOS # 0.4 (0.0-0.7); EOS % 4.7 % (1.5-5.0); GRAN # 6.17 (1.4-6.5); GRAN % 74.8 % (50.0-68.0); HEMOGLOBIN 11.6 g/dL (12.0-16.0); LYMPH # 1.1 (1.2-3.4); LYMPH % 13.7 % (22.0-35.0); MEAN CELL VOLUME 93.2 fl (80.0-105.0); MEAN CORPUSCULAR HEMOGLOBIN 30.3 pg (25.0-35.0); MEAN CORPUSCULAR HGB CONC 32.5 g/dl (31.0-37.0); MEAN PLATELET VOLUME 9.4 fl (7.0-11.0); MONO # 0.5 (0.1-0.6); MONO % 6.4 % (1.0-6.0); RBC 3.83 10^6/uL (3.5-6.1); RED CELL DISTRIBUTION WIDTH 14.2 % (11.5-14.5); WHITE BLOOD COUNT 8.3 10^3/ul (4.5-11.0)
[2018-08-05 07:17] LABS: ALB/GLOB RATIO 1.1 (1.1-1.8); ALBUMIN 2.9 g/dL (3.0-4.8)
[2018-08-05] MEDS ORDERED: Tolvaptan 15 MG TAB PO ONE (07:58)
[2018-08-05] MEDS: Albuterol-Ipratrop 3 mg / 0.5 (3 ml) UD IH PRN ×2 (08:04→15:20)
[2018-08-05] MEDS: Insulin Reg-LOW-Coverage SC SCH ×3 (08:16→17:10)
--- NOTE | 2018-08-05 09:04 | CP.PCM.PN ---
Objective - Vital Signs/Intake and Output Vital Signs (last 24 hours): Temp Pulse Resp BP Pulse Ox 98.2 F 95 H 18 160/82 H 96 08/05/18 06:00 08/05/18 08:16 08/05/18 06:00 08/05/18 08:16 08/05/18 06:00 Intake and Output: 08/05/18 08/05/18 06:59 18:59 Intake Total 880 Output Total 700 Balance 180 - Medications Medications: Current Medications Acetaminophen (Tylenol 325mg Tab) 650 mg PO Q6H PRN PRN Reason: Pain, Mild (1-3) Last Admin: 08/04/18 21:41 Dose: 650 mg Albuterol/Ipratropium (Duoneb 3 Mg/0.5 Mg (3 Ml) Ud) 3 ml IH [id number] PRN PRN Reason: Shortness of Breath Last Admin: 08/05/18 08:04 Dose: 3 ml Ascorbic Acid (Vitamin C 500 Mg Tab) 500 mg PO DAILY [facility] Last Admin: 08/04/18 10:19 Dose: 500 mg Aspirin (Ecotrin) 81 mg PO DAILY [facility] Last Admin: 08/04/18 10:19 Dose: 81 mg Atorvastatin Calcium (Lipitor) 10 mg PO DIN [facility] Last Admin: 08/04/18 17:38 Dose: 10 mg Calcium Carbonate (Oscal) 500 mg PO DAILY [facility] Last Admin: 08/04/18 10:19 Dose: 500 mg Cholecalciferol (Vitamin D) 1,000 intlu PO DAILY [facility] Last Admin: 08/04/18 10:19 Dose: 1,000 intlu Cyanocobalamin (Vitamin B12 1000 Mcg Tab) 1,000 mcg PO BID [facility] Last Admin: 08/04/18 17:38 Dose: 1,000 mcg Furosemide (Lasix) 40 mg PO BID [facility] Last Admin: 08/04/18 17:39 Dose: 40 mg Heparin Sodium (Porcine) (Heparin) 5,000 units SC Q8 [facility]; Protocol Last Admin: 08/05/18 05:59 Dose: 5,000 units Aztreonam (Azactam 1 Gm) 100 mls @ 100 mls/hr IVPB Q12 [facility]; Protocol Stop: 08/05/18 22:01 Last Admin: 08/04/18 21:38 Dose: 100 mls/hr Linezolid (Zyvox 600mg/300ml D5w) 600 mg in 300 mls @ 200 mls/hr IVPB Q12 [facility]; Protocol Stop: 08/05/18 23:46 Last Admin: 08/04/18 21:39 Dose: 200 mls/hr Insulin Human Regular (Humulin R Low) 0 units SC ACHS [facility]; Protocol Last Admin: 08/05/18 08:16 Dose: 1 unit Isosorbide Mononitrate (Imdur) 60 mg PO DAILY [facility] Last Admin: 08/04/18 10:19 Dose: 60 mg Lisinopril (Zestril) 10 mg PO DAILY [facility] Metolazone (Zaroxolyn) 5 mg PO DAILY [facility] Metoprolol Tartrate (Lopressor) 100 mg PO BRKDIN [facility] Last Admin: 08/05/18 08:16 Dose: 100 mg Multivitamins (Thera Tab) 1 tab PO DAILY [facility] Last Admin: 08/04/18 10:19 Dose: 1 tab Oxycodone/Acetaminophen (Percocet 5/325 Mg Tab) 1 tab PO DAILY PRN PRN Reason: Pain, Mild (1-3) Stop: 08/07/18 15:16 Last Admin: 08/05/18 03:49 Dose: 1 tab Pantoprazole Sodium (Protonix Ec Tab) 40 mg PO 0600 [facility] Last Admin: 08/05/18 05:58 Dose: 40 mg Primidone (Mysoline) 50 mg PO HS [facility] Last Admin: 08/04/18 21:38 Dose: 50 mg Spironolactone (Aldactone) 25 mg PO DAILY [facility] Last Admin: 08/02/18 10:28 Dose: 25 mg - Labs Labs: 08/05/18 06:30 08/05/18 06:30 PT 14.3 SECONDS (9.4-12.5) H 07/29/18 17:30 INR 1.25 07/29/18 17:30 APTT 35.1 Seconds (25.1-36.5) 07/29/18 17:30
[2018-08-05] MEDS: Linezolid 600 mg in D5W 300 ml 600 MG/300 ML BAG IVPB SCH (09:49)
[2018-08-05] MEDS: Multivitamin Therapeutic Tab PO SCH (09:50)
[2018-08-05] MEDS: Aztreonam 1 Gm in NS 100mL 100 ML IVPB SCH (09:50)
[2018-08-05] MEDS: Cholecalciferol 1,000 INTLU TAB PO SCH (09:51)
[2018-08-05] MEDS ORDERED: Magnesium Sulfate 2 GM in Sodium Chloride 0.9% 100 ML IVPB ONE (10:10)
--- NOTE | 2018-08-05 10:58 | CP.PCM.PN ---
Subjective - Date & Time of Evaluation Date of Evaluation: 08/05/18 Time of Evaluation: 10:57 - Subjective Subjective: Podiatry Progress Note for Dr. Cortés 73 yo female seen and examined at bedside this morning for left foot submetatarsal 1 ulceration. Patient is resting comfortably and in NAD. She denies any pain to the ulceration site. Patient is accompanied by her at bedside. Denies N/V/F/SOB/CP/C. Objective - Vital Signs/Intake and Output Vital Signs (last 24 hours): Temp Pulse Resp BP Pulse Ox 98.2 F 83 18 150/80 96 08/05/18 06:00 08/05/18 10:00 08/05/18 06:00 08/05/18 09:53 08/05/18 06:00 Intake and Output: 08/05/18 08/05/18 06:59 18:59 Intake Total 880 Output Total 700 Balance 180 - Medications Medications: Current Medications Acetaminophen (Tylenol 325mg Tab) 650 mg PO Q6H PRN PRN Reason: Pain, Mild (1-3) Last Admin: 08/04/18 21:41 Dose: 650 mg Albuterol/Ipratropium (Duoneb 3 Mg/0.5 Mg (3 Ml) Ud) 3 ml IH [id number] PRN PRN Reason: Shortness of Breath Last Admin: 08/05/18 08:04 Dose: 3 ml Ascorbic Acid (Vitamin C 500 Mg Tab) 500 mg PO DAILY [facility] Last Admin: 08/05/18 09:50 Dose: 500 mg Aspirin (Ecotrin) 81 mg PO DAILY [facility] Last Admin: 08/05/18 09:50 Dose: 81 mg Atorvastatin Calcium (Lipitor) 10 mg PO DIN [facility] Last Admin: 08/04/18 17:38 Dose: 10 mg Calcium Carbonate (Oscal) 500 mg PO DAILY [facility] Last Admin: 08/05/18 09:52 Dose: 500 mg Cholecalciferol (Vitamin D) 1,000 intlu PO DAILY [facility] Last Admin: 08/05/18 09:51 Dose: 1,000 intlu Cyanocobalamin (Vitamin B12 1000 Mcg Tab) 1,000 mcg PO BID [facility] Last Admin: 08/05/18 09:50 Dose: 1,000 mcg Furosemide (Lasix) 40 mg PO BID [facility] Last Admin: 10/08/18 09:53 Dose: 40 mg Heparin Sodium (Porcine) (Heparin) 5,000 units SC Q8 [facility]; Protocol Last Admin: 08/05/18 05:59 Dose: 5,000 units Aztreonam (Azactam 1 Gm) 100 mls @ 100 mls/hr IVPB Q12 [facility]; Protocol Stop: 08/05/18 22:01 Last Admin: 08/05/18 09:50 Dose: 100 mls/hr Linezolid (Zyvox 600mg/300ml D5w) 600 mg in 300 mls @ 200 mls/hr IVPB Q12 [facility]; Protocol Stop: 08/05/18 23:46 Last Admin: 08/05/18 09:49 Dose: 200 mls/hr Magnesium Sulfate 2 gm/ Sodium (Chloride) 104 mls @ 102 mls/hr IVPB ONCE ONE Stop: 08/05/18 11:11 Insulin Human Regular (Humulin R Low) 0 units SC ACHS [facility]; Protocol Last Admin: 08/05/18 08:16 Dose: 1 unit Isosorbide Mononitrate (Imdur) 60 mg PO DAILY [facility] Last Admin: 08/05/18 09:50 Dose: 60 mg Lisinopril (Zestril) 10 mg PO DAILY [facility] Last Admin: 08/05/18 09:53 Dose: 10 mg Metolazone (Zaroxolyn) 5 mg PO DAILY [facility] Metoprolol Tartrate (Lopressor) 100 mg PO BRKDIN [facility] Last Admin: 08/05/18 08:16 Dose: 100 mg Multivitamins (Thera Tab) 1 tab PO DAILY [facility] Last Admin: 08/05/18 09:50 Dose: 1 tab Oxycodone/Acetaminophen (Percocet 5/325 Mg Tab) 1 tab PO DAILY PRN PRN Reason: Pain, Mild (1-3) Stop: 08/07/18 15:16 Last Admin: 08/05/18 03:49 Dose: 1 tab Pantoprazole Sodium (Protonix Ec Tab) 40 mg PO 0600 [facility] Last Admin: 08/05/18 05:58 Dose: 40 mg Primidone (Mysoline) 50 mg PO HS [facility] Last Admin: 08/04/18 21:38 Dose: 50 mg Spironolactone (Aldactone) 25 mg PO DAILY [facility] Last Admin: 08/02/18 10:28 Dose: 25 mg - Labs Labs: 08/05/18 06:30 08/05/18 06:30 PT 14.3 SECONDS (9.4-12.5) H 07/29/18 17:30 INR 1.25 07/29/18 17:30 APTT 35.1 Seconds (25.1-36.5) 07/29/18 17:30 - Constitutional Appears: Well, Non-toxic, No Acute Distress - Head Exam Head Exam: ATRAUMATIC, NORMOCEPHALIC - Extremities Exam Additional comments: Lower extremity focused exam: Vasc: DP 1/4, PT 1/4 bilaterally, CFT <3 seconds to digits, TG warm to warm, +1 pitting edema noted circumfrentially to legs bilaterally Ortho: No pain on palpation left plantar foot wound. Partial left hallux amputation and second digit amputation. Rigid hammertoe contractures to lesser digits on the R foot, no tenderness upon palpation upon calf compression bilaterally Neuro: Gross sensation intact, protective sensation absent Derm: Left plantar submetatarsal head 1 ulceration measuring approximately 0.1 x 0.2 x 0.1 cm - 100% granular base with evidence of epithelialization no drainage appreciated, no probe to bone, no malodor, no tunneling or tracking. No cellulitis or erythema noted. - Neurological Exam Neurological Exam: Alert, Awake, Oriented x3 - Psychiatric Exam Psychiatric exam: Normal Affect, Normal Mood Assessment and Plan - Assessment and Plan (Free Text) Assessment: 73 yo female with left submetatarsal 1 ulceration Plan: Patient seen and evaluated, discussed with attending, Dr. Milana Morgan foot x-ray (07/31); No OM appreciated L foot wound culture (07/30): coagulase neg staphylococcus Continue local wound care: saline cleanse, optifoam to submet 1 ulceration Discussed with patient the importance of wearing multipodus boots at all times in bed ID recs appreciated; continue Zyovx and Azactam day 6 for 7-10 days Podiatry will continue to follow while in house Upon discharge, patient to follow up with Dr. Cortés in office
--- NOTE | 2018-08-05 11:32 | PN ---
DATE: 08/05/2018 CARDIOLOGY FOLLOWUP SUBJECTIVE: The patient is without dyspnea. PHYSICAL EXAMINATION: VITAL SIGNS: Blood pressure is 150/80, heart rates in the 70s. NECK: Negative JVD. LUNGS: Without rales. HEART: S1 and S2. EXTREMITIES: Hemoglobin is 11.6. Chemistries: BUN and creatinine is 56 and 1.8. IMPRESSION: 1. Infection of the lower extremities. 2. End-stage dilated cardiomyopathy. 3. History of congestive heart failure. 4. Coronary artery disease. 5. Dyspnea, which is resolved. PLAN: Given these findings, the patient is currently being treated for infection of the lower extremities. Currently on IV antibiotics. Vinnie Vidales MD
[2018-08-05] MEDS ORDERED: Influenza Vaccine 60 mcg/0.5 mL SYR (4YR UP) IM ONE (13:30)
--- NOTE | 2018-08-05 13:55 | CP.PCM.DIS ---
Provider - Provider Date of Admission: 07/29/18 18:53 Attending physician: Sofía Pablo MD Primary care physician: Yariel Flannery MD Time Spent in preparation of Discharge (in minutes): 45 Hospital Course - Lab Results Lab Results: Micro Results 07/29/18 18:00 Blood-Venous Blood Culture - Final NO GROWTH AFTER 5 DAYS 07/29/18 18:00 Blood-Venous Gram Stain - Final TEST NOT PERFORMED 07/29/18 17:30 Blood-Venous Blood Culture - Final NO GROWTH AFTER 5 DAYS 07/29/18 17:30 Blood-Venous Gram Stain - Final TEST NOT PERFORMED 07/30/18 14:15 Foot - Left Gram Stain - Final 07/30/18 14:15 Foot - Left Wound Culture - Final Coagulase Neg Staphylococcus 07/31/18 04:50 Naris MRSA Culture (Admit) - Final MRSA NOT DETECTED 07/29/18 19:31 Urine Urine Culture - Final 10-50,000 CFU/ML. MULTIPLE SPECIES. PROBABLE CONTAMINATION. Most Recent Lab Values WBC 8.3 10^3/ul (4.5-11.0) D 08/05/18 06:30 RBC 3.83 10^6/uL (3.5-6.1) 08/05/18 06:30 Hgb 11.6 g/dL (12.0-16.0) L 08/05/18 06:30 Hct 35.7 % (36.0-48.0) L 08/05/18 06:30 MCV 93.2 fl (80.0-105.0) 08/05/18 06:30 MCH 30.3 pg (25.0-35.0) 08/05/18 06:30 MCHC 32.5 g/dl (31.0-37.0) 08/05/18 06:30 RDW 14.2 % (11.5-14.5) 08/05/18 06:30 Plt Count 199 10^3/uL (120.0-450.0) 08/05/18 06:30 MPV 9.4 fl (7.0-11.0) 08/05/18 06:30 Gran % 74.8 % (50.0-68.0) H 08/05/18 06:30 Lymph % (Auto) 13.7 % (22.0-35.0) L 08/05/18 06:30 Jerauld % (Auto) 6.4 % (1.0-6.0) H 08/05/18 06:30 Eos % (Auto) 4.7 % (1.5-5.0) 08/05/18 06:30 Baso % (Auto) 0.4 % (0.0-3.0) 08/05/18 06:30 Gran # 6.17 (1.4-6.5) 08/05/18 06:30 Lymph # (Auto) 1.1 (1.2-3.4) L 08/05/18 06:30 Jerauld # (Auto) 0.5 (0.1-0.6) 08/05/18 06:30 Eos # (Auto) 0.4 (0.0-0.7) 08/05/18 06:30 Baso # (Auto) 0.03 K/mm3 (0.0-2.0) 08/05/18 06:30 Neutrophils % (Manual) 95 % (50.0-70.0) H 07/30/18 06:00 Lymphocytes % (Manual) 1 % (22.0-35.0) L 07/30/18 06:00 Monocytes % (Manual) 4 % (1.0-6.0) 07/30/18 06:00 Eosinophils % (Manual) 1 % (0.0-3.0) 07/30/18 06:00 Platelet Evaluation Normal (NORMAL) 07/30/18 06:00 Ovalocytes Slight 07/30/18 06:00 PT 14.3 SECONDS (9.4-12.5) H 07/29/18 17:30 INR 1.25 07/29/18 17:30 APTT 35.1 Seconds (25.1-36.5) 07/29/18 17:30 D-Dimer, Quantitative 1478 ng/mlDDU (0-243) H 07/29/18 17:30 pO2 48 mm/Hg (30-55) 07/29/18 17:30 VBG pH 7.31 (7.32-7.43) L 07/29/18 17:30 VBG pCO2 48.0 (40-60) 07/29/18 17:30 VBG HCO3 24.2 mmol/l (21-28) 07/29/18 17:30 VBG Total CO2 25.7 mmol.L (22-28) 07/29/18 17:30 VBG O2 Sat (Calc) 83.1 % (40-65) H 07/29/18 17:30 VBG Base Excess -2.5 mmol/L (0.0-2.0) L 07/29/18 17:30 VBG Potassium 3.8 mmol/L (3.6-5.2) 07/29/18 17:30 Sodium 132.0 mmol/L (132-148) 07/29/18 17:30 Chloride 101.0 mmol/L (98-107) 07/29/18 17:30 Glucose 125 mg/dl (65-105) H 07/29/18 17:30 Lactate 1.2 mmol/L (0.7-2.1) 07/29/18 17:30 FiO2 21.0 % 07/29/18 17:30 Sodium 127 mmol/L (132-148) L 08/05/18 06:30 Potassium 4.1 mmol/L (3.6-5.0) 08/05/18 06:30 Chloride 98 mmol/L (98-107) 08/05/18 06:30 Carbon Dioxide 19 mmol/L (21-33) L 08/05/18 06:30 Anion Gap 15 (10-20) 08/05/18 06:30 BUN 56 mg/dL (7-21) H 08/05/18 06:30 Creatinine 1.8 mg/dl (0.7-1.2) H 08/05/18 06:30 Est GFR ( Amer) 33 08/05/18 06:30 Est GFR (Non-Af Amer) 28 08/05/18 06:30 POC Glucose (mg/dL) 253 mg/dL (65-110) H 08/05/18 11:16 Random Glucose 188 mg/dL (70-110) H 08/05/18 06:30 Serum Osmolality 277 mosm/kg (272-300) 08/03/18 05:30 Calcium 7.0 mg/dL (8.4-10.5) L 08/05/18 06:30 Magnesium 1.5 mg/dL (1.7-2.2) L 08/05/18 06:30 Iron 47 ug/dL (45-180) 08/03/18 05:30 TIBC 288 ug/dL (265-497) 08/03/18 05:30 % Saturation 16 % (20-55) L 08/03/18 05:30 Ferritin 102.0 ng/mL 08/03/18 05:30 Total Bilirubin 0.3 mg/dL (0.2-1.3) 08/05/18 06:30 AST 27 U/L (14-36) 08/05/18 06:30 ALT 26 U/L (7-56) 08/05/18 06:30 Alkaline Phosphatase 83 U/L (38-126) 08/05/18 06:30 Lactate Dehydrogenase 519 U/L (333-699) 07/29/18 17:30 Total Creatine Kinase 127 U/L (35-230) 07/29/18 17:30 Troponin I 0.02 ng/mL D 07/29/18 17:30 NT-Pro-B Natriuret Pep 22459 pg/mL (0-450) H 08/03/18 12:00 Total Protein 5.5 g/dL (5.8-8.3) L 08/05/18 06:30 Albumin 2.9 g/dL (3.0-4.8) L 08/05/18 06:30 Globulin 2.6 gm/dL 08/05/18 06:30 Albumin/Globulin Ratio 1.1 (1.1-1.8) 08/05/18 06:30 25-OH Vitamin D Total 25.9 NG/ML (30.0-100.0) L 08/02/18 11:45 Procalcitonin 0.07 NG/ML (0.19-0.49) L 07/30/18 06:00 Venous Blood Potassium 3.8 mmol/L (3.6-5.2) 07/29/18 17:30 Urine Color Light yellow (YELLOW) 07/29/18 19:37 Urine Appearance Clear (CLEAR) 07/29/18 19:37 Urine pH 6.0 (4.7-8.0) 07/29/18 19:37 Ur Specific [place] 1.015 (1.005-1.035) 07/29/18 19:37 Urine Protein 100 mg/dL (<30 mg/dL) H 07/29/18 19:37 Urine Glucose (UA) Negative mg/dL (NEGATIVE) 07/29/18 19:37 Urine Ketones Negative mg/dL (NEGATIVE) 07/29/18 19:37 Urine Blood Large (NEGATIVE) H 07/29/18 19:37 Urine Nitrate Negative (NEGATIVE) 07/29/18 19:37 Urine Bilirubin Negative (NEGATIVE) 07/29/18 19:37 Urine Urobilinogen 0.2 E.U./dL (<1 E.U./dL) 07/29/18 19:37 Ur Leukocyte Esterase Trace Collins/uL (NEGATIVE) H 07/29/18 19:37 Urine RBC 2 - 5 /hpf (0-2) 07/29/18 19:37 Urine WBC 0 - 2 /hpf (0-6) 07/29/18 19:37 Ur Epithelial Cells 0 - 2 /hpf (0-5) 07/29/18 19:37 Urine Bacteria Neg (NEG) 07/29/18 19:37 Urine Osmolality 245 mosm/kg (300-1000) L 08/03/18 00:30 Ur Random Sodium 16 meq/L 08/03/18 00:30 Ur Random Urea Nitrogn 362 mg/dL 08/02/18 13:30 Ur L.pneumophila Ag Negative (NEGATIVE) 07/31/18 05:30 - Hospital Course Hospital Course: Upon Admission Ms Min, 73 F, with PMH CAD s/p CABG & AICD, systolic CHF with End-staged dilated cardiomyopathy s/p IV home inotropic therapy, diabetes with L toe amputation, AAA repair, colostomy s/p colectomy due to ischemic colitis, CKD stage 4, and chronic ataxia with DJD, presents to the emergency department complaining of sudden worsening of generalized weakness, fatigue, and difficulty ambulating x 1 day. Pt was celebrating her 62 anniversary yesterday at home with family. She ate some high salt food, eg pizza, wings. At 8pm, pt suddenly could not stand up from sitting to use the bathroom, and required 2 people assist. She didn't want to came to ED last night because of the anniversary so she came to the ED today. She noticed that she started to have dry coughs x 2 days and increase SOB while ambulating at home. Denies sick contact, recent travel, change in meds, nor skip meds. At baseline, she slept on 2 pillows, (+) mild orthopnea, no home o2, off milrinone gtt x 3 years, (+) SOB yesterday ambulate at home, but no SOB at home at baseline. Hospital Course Patient is a 73 F admitted for systolic CHF exacerbation and community acquired pneumonia. Cardiology was consulted and patient was started on milirinone drip and lasix 40mg IVP bid for exacerbation of chf. Patient's EF was 30.8 on echocardiogram. Podiatry was consulted for foot ulcer on the left extremity. Wound was cleaned by podiatry due to purulence expressed from found and ID started patient on a 7 day course of zyvox and azactam. Nephrology was consulted for worsening asymptomatic hyponatremia and VALE. Nephro changed lasix to po because it was believed the VALE was due to aggressive diuresis. Nephro switched diuretics to loop diuretic in setting of hyponatremia and fluid restriction was placed of 1500. Daily weights and strict Is/Os were monitored. 1x dose of tolvaptan was administered due to continued hyponatremia. Patient hyponatremic but likely due to difficulties with fluid restriction secondary to IV abx which will be completed after a 7 day course. Patient stable for transfer to TCU as patient is asymptomatic in terms of hyponatremia. Sodium is trending up. Patient leg swelling and breathing have improved significantly. Patient agrees and has no acute complaints upon transfer to TCU discussion. Discharge Plan Patient is stable for discharge to TCU as per Dr. Herman. Patient will continue to have further rehabilitation to gain her strength before discharge to home. Upon discharge from hospital, patient will continue medications that she is being transferred to TCU with. Patient will followup with her primary medical doctor Dr. Flannery within 3-5 days of discharge from hospital. Patient understands the plan and agrees to the above. Disclaimer: Written above is a synopsis of patient current hospital admission. For full report refer to EMR. Discharge Exam - Head Exam Head Exam: ATRAUMATIC, NORMOCEPHALIC - Eye Exam Eye Exam: EOMI, Normal appearance. absent: Nystagmus, Scleral icterus - Respiratory Exam Respiratory Exam: NORMAL BREATHING PATTERN. absent: Rales, Rhonchi, Wheezes, Respiratory Distress - Cardiovascular Exam Cardiovascular Exam: REGULAR RHYTHM, +S1, +S2. absent: Tachycardia - GI/Abdominal Exam GI & Abdominal Exam: Normal Bowel Sounds. absent: Distended, Firm, Guarding, Tenderness - Extremities Exam Extremities exam: normal inspection Additional comments: minimal edemal in legs - Neurological Exam Neurological exam: Alert, CN II-XII Intact, Oriented x3 - Psychiatric Exam Psychiatric exam: Normal Affect, Normal Mood - Skin Skin Exam: Intact, Normal Color Discharge Plan - Follow Up Plan Condition: FAIR Disposition: REHAB FACILITY/REHAB UNIT Instructions: Heart Failure (ED), Heart Failure (DC), Heart Failure (GEN), Pacemaker (DC), Pacemaker (GEN), Pulmonary Edema (DC), Pulmonary Edema (GEN), Ascites (DC), Ascites (GEN), Weakness (ED) Additional Instructions: Patient is stable for discharge to TCU for further rehabilitation prior to discharge from hospital. Patient will complete final day of antibiotics today as per ID for a 7 day course. If patient requires 10 days will complete in TCU. Resume medications as per medication reconciliation list. Upon discharge from hospital patient should followup within 3-5 days of discharge with primary medical doctor, Dr. Flannery. Patient is to seek medical attention if signs or symptoms return or worsen. Referrals: Yariel Flannery MD [Primary Care Provider] - Follow up with primary
[2018-08-05] MEDS ORDERED: Oxycodone/Acetaminophen 5/325 mg Tab PO STA (15:01)
--- NOTE | 2018-08-05 16:05 | CP.PCM.PN ---
Subjective - Date & Time of Evaluation Date of Evaluation: 08/05/18 Time of Evaluation: 09:50 - Subjective Subjective: No fevers, not in distress, improved pain in the left leg. Objective - Vital Signs/Intake and Output Vital Signs (last 24 hours): Temp Pulse Resp BP Pulse Ox 97.5 F L 68 20 139/78 96 08/05/18 12:00 08/05/18 12:00 08/05/18 12:00 08/05/18 12:00 08/05/18 06:00 Intake and Output: 08/05/18 08/05/18 06:59 18:59 Intake Total 880 Output Total 700 Balance 180 - Medications Medications: Current Medications Acetaminophen (Tylenol 325mg Tab) 650 mg PO Q6H PRN PRN Reason: Pain, Mild (1-3) Last Admin: 08/04/18 21:41 Dose: 650 mg Albuterol/Ipratropium (Duoneb 3 Mg/0.5 Mg (3 Ml) Ud) 3 ml IH [id number] PRN PRN Reason: Shortness of Breath Last Admin: 08/05/18 15:20 Dose: 3 ml Ascorbic Acid (Vitamin C 500 Mg Tab) 500 mg PO DAILY [facility] Last Admin: 08/05/18 09:50 Dose: 500 mg Aspirin (Ecotrin) 81 mg PO DAILY [facility] Last Admin: 08/05/18 09:50 Dose: 81 mg Atorvastatin Calcium (Lipitor) 10 mg PO DIN [facility] Last Admin: 08/04/18 17:38 Dose: 10 mg Calcium Carbonate (Oscal) 500 mg PO DAILY [facility] Last Admin: 08/05/18 09:52 Dose: 500 mg Cholecalciferol (Vitamin D) 1,000 intlu PO DAILY [facility] Last Admin: 08/05/18 09:51 Dose: 1,000 intlu Cyanocobalamin (Vitamin B12 1000 Mcg Tab) 1,000 mcg PO BID [facility] Last Admin: 08/05/18 09:50 Dose: 1,000 mcg Furosemide (Lasix) 40 mg PO BID [facility] Last Admin: 08/05/18 09:53 Dose: 40 mg Heparin Sodium (Porcine) (Heparin) 5,000 units SC Q8 [facility]; Protocol Last Admin: 08/05/18 14:09 Dose: 5,000 units Aztreonam (Azactam 1 Gm) 100 mls @ 100 mls/hr IVPB Q12 [facility]; Protocol Stop: 08/05/18 22:01 Last Admin: 08/05/18 09:50 Dose: 100 mls/hr Linezolid (Zyvox 600mg/300ml D5w) 600 mg in 300 mls @ 200 mls/hr IVPB Q12 [facility]; Protocol Stop: 08/05/18 23:46 Last Admin: 08/05/18 09:49 Dose: 200 mls/hr Insulin Human Regular (Humulin R Low) 0 units SC ACHS [facility]; Protocol Last Admin: 08/05/18 11:37 Dose: 3 unit Isosorbide Mononitrate (Imdur) 60 mg PO DAILY [facility] Last Admin: 08/05/18 09:50 Dose: 60 mg Lisinopril (Zestril) 10 mg PO DAILY [facility] Last Admin: 08/05/18 09:53 Dose: 10 mg Metolazone (Zaroxolyn) 5 mg PO DAILY [facility] Metoprolol Tartrate (Lopressor) 100 mg PO BRKDIN [facility] Last Admin: 08/05/18 08:16 Dose: 100 mg Multivitamins (Thera Tab) 1 tab PO DAILY [facility] Last Admin: 08/05/18 09:50 Dose: 1 tab Oxycodone/Acetaminophen (Percocet 5/325 Mg Tab) 1 tab PO DAILY PRN PRN Reason: Pain, Mild (1-3) Stop: 08/07/18 15:16 Last Admin: 08/05/18 03:49 Dose: 1 tab Pantoprazole Sodium (Protonix Ec Tab) 40 mg PO 0600 [facility] Last Admin: 08/05/18 05:58 Dose: 40 mg Primidone (Mysoline) 50 mg PO HS [facility] Last Admin: 08/04/18 21:38 Dose: 50 mg Spironolactone (Aldactone) 25 mg PO DAILY [facility] Last Admin: 08/02/18 10:28 Dose: 25 mg - Labs Labs: 08/05/18 06:30 08/05/18 06:30 PT 14.3 SECONDS (9.4-12.5) H 07/29/18 17:30 INR 1.25 07/29/18 17:30 APTT 35.1 Seconds (25.1-36.5) 07/29/18 17:30 - Constitutional Appears: No Acute Distress, Chronically Ill - Head Exam Head Exam: NORMAL INSPECTION - Respiratory Exam Respiratory Exam: Decreased Breath Sounds - Cardiovascular Exam Cardiovascular Exam: +S1, +S2 - GI/Abdominal Exam GI & Abdominal Exam: Soft. absent: Tenderness Assessment and Plan - Assessment and Plan (Free Text) Plan: Assessment left leg cellulitis as well as right sided community-acquired pneumonia S/P left foot 2nd digit skin and skin structure infection CAD S/P CABG abdominal aortic aneurysm S/P repair S/P cholecystectomy S/P pacemaker placement DM S/P left toe amputation Plan continue Zyvox and Azactam day 7 for 7-10 days and will continue to monitor clinically
[2018-08-05 17:18] VITALS: BP 143/88
[2018-08-05 17:33] VITALS: PULSE 79; RESP 18; TEMP 97.7; O2SAT 95
--- NOTE | 2018-08-05 21:33 | CP.PCM.PN ---
Objective - Vital Signs/Intake and Output Vital Signs (last 24 hours): Temp Pulse Resp BP Pulse Ox 97.7 F 79 18 143/88 95 08/05/18 17:32 08/05/18 17:32 08/05/18 17:32 08/05/18 17:32 08/05/18 17:32 Intake and Output: 08/05/18 08/06/18 18:59 06:59 Intake Total 800 Balance 800 - Labs Labs: 08/05/18 06:30 08/05/18 06:30 PT 14.3 SECONDS (9.4-12.5) H 07/29/18 17:30 INR 1.25 07/29/18 17:30 APTT 35.1 Seconds (25.1-36.5) 07/29/18 17:30
== END 2018-08-05 18:09 | DRG 193 ==
LOC: ED 16:04 → ERH 18:53 → 2RNO 21:50 → 2RSO 08-01 13:56
PROVIDERS: ADMIT Internal Medicine; ATTEND Internal Medicine
PROC: 0HBNXZZ Excision of Left Foot Skin, External Approach (ICD-10-PCS; principal; 2018-08-01)
PROC: 3E0F7GC Introduction of Other Therapeutic Substance into Respiratory Tract, Via Natural or Artificial Opening (ICD-10-PCS; 2018-08-02)
DX: J18.9 Pneumonia, unspecified organism (principal); I50.23 Acute on chronic systolic (congestive) heart failure; N18.4 Chronic kidney disease, stage 4 (severe); I42.0 Dilated cardiomyopathy; L03.116 Cellulitis of left lower limb; E87.1 Hypo-osmolality and hyponatremia; N17.9 Acute kidney failure, unspecified; I25.10 Atherosclerotic heart disease of native coronary artery without angina pectoris; E11.22 Type 2 diabetes mellitus with diabetic chronic kidney disease; L89.151 Pressure ulcer of sacral region, stage 1; E11.51 Type 2 diabetes mellitus with diabetic peripheral angiopathy without gangrene; E11.40 Type 2 diabetes mellitus with diabetic neuropathy, unspecified; E11.621 Type 2 diabetes mellitus with foot ulcer; L97.529 Non-pressure chronic ulcer of other part of left foot with unspecified severity; I25.5 Ischemic cardiomyopathy; M16.11 Unilateral primary osteoarthritis, right hip; T50.2X5A Adverse effect of carbonic-anhydrase inhibitors, benzothiadiazides and other diuretics, initial encounter; Z93.3 Colostomy status; Z87.891 Personal history of nicotine dependence; Z95.1 Presence of aortocoronary bypass graft; Z90.49 Acquired absence of other specified parts of digestive tract; Z95.810 Presence of automatic (implantable) cardiac defibrillator; Z91.81 History of falling; Z79.4 Long term (current) use of insulin; Z79.82 Long term (current) use of aspirin; Z86.79 Personal history of other diseases of the circulatory system; Z89.422 Acquired absence of other left toe(s)

== ENCOUNTER 2018-08-05 18:07 | Inpatient (IN) | payer OTHER, MEDICARE ==
[2018-08-05 19:01] VITALS: BMI 31.6
[2018-08-05] MEDS ORDERED: Albuterol-Ipratrop 3 mg / 0.5 (3 ml) UD IH PRN (19:01)
[2018-08-05] MEDS: Aztreonam 1 Gm in NS 100mL 100 ML IVPB SCH ×2 (21:00→21:17)
[2018-08-05] MEDS: Linezolid 600 mg in D5W 300 ml 600 MG/300 ML BAG IVPB SCH (23:06)
[2018-08-05] MEDS: Oxycodone/Acetaminophen 5/325 mg Tab PO PRN (23:19)
[2018-08-06] MEDS: Insulin Reg-LOW-Coverage SC SCH ×5 (01:10→21:37)
[2018-08-06] MEDS: Aztreonam 1 Gm in NS 100mL 100 ML IVPB SCH ×3 (02:05→18:23)
[2018-08-06] MEDS: Pantoprazole 40 mg EC Tab PO SCH (05:07)
[2018-08-06 05:34] LABS: BASO # 0.03 K/mm3 (0.0-2.0); BASO % 0.4 % (0.0-3.0); EOS # 0.4 (0.0-0.7); EOS % 5.2 % (1.5-5.0); GRAN # 5.71 (1.4-6.5); GRAN % 72.2 % (50.0-68.0); HEMOGLOBIN 11.4 g/dL (12.0-16.0); LYMPH # 1.2 (1.2-3.4); LYMPH % 15.2 % (22.0-35.0); MEAN CELL VOLUME 92.4 fl (80.0-105.0); MEAN CORPUSCULAR HGB CONC 32.5 g/dl (31.0-37.0); MONO # 0.6 (0.1-0.6); RBC 3.8 10^6/uL (3.5-6.1); RED CELL DISTRIBUTION WIDTH 14.2 % (11.5-14.5); WHITE BLOOD COUNT 7.9 10^3/ul (4.5-11.0)
[2018-08-06] MEDS: Linezolid 600 mg in D5W 300 ml 600 MG/300 ML BAG IVPB SCH ×2 (06:51→18:18)
[2018-08-06 06:53] LABS: ALB/GLOB RATIO 1.1 (1.1-1.8); ALBUMIN 3.3 g/dL (3.0-4.8); CALCIUM 8.4 mg/dL (8.4-10.5)
[2018-08-06] MEDS: Multivitamin Therapeutic Tab PO SCH (08:26)
--- NOTE | 2018-08-06 08:56 | CP.PCM.HP ---
History of Present Illness - History of Present Illness History of Present Illness: Patient is a 73 F admitted for systolic CHF exacerbation and community acquired pneumonia. Cardiology was consulted and patient was started on milirinone drip and lasix 40mg IVP bid for exacerbation of chf. Patient's EF was 30.8 on ech ocardiogram. Podiatry was consulted for foot ulcer on the left extremity. Wound was cleaned by podiatry due to purulence expressed from found and ID started patient on a 7 day course of zyvox and azactam. Nephrology was consulted for worsening asymptomatic hyponatremia and VALE. Nephro changed lasix to po because it was believed the VALE was due to aggressive diuresis. Nephro switched diuretics to loop diuretic in setting of hyponatremia and fluid restriction was placed of 1500. Daily weights and strict Is/Os were monitored. 1x dose of tolvaptan was administered due to continued hyponatremia. Patient hyponatremic but likely due to difficulties with fluid restriction secondary to IV abx which will be completed after a 7 day course. Patient stable for transfer to TCU as patient is asymptomatic in terms of hyponatremia. Sodium is trending up. Patient leg swelling and breathing have improved significantly. Patient agrees and has no acute complaints upon transfer to TCU discussion. Patient seen and examined in TCU. Patient being treated by PT for conditionin. Patient denies fevers, chills, n/v, sob, constipation or diarrhea, dysuria. PMH CAD s/p CABG and AICD End-staged dilated cardiomyopathy s/p IV home inotropic therapy 2014 CHF, systolic (EF 30s, 2017, RVSP 24) diabetes (IDDM x 20 years, A1C 6.29 March 2018) with L toes amputation CKD stage 4 chronic ataxia with DJD Chronic sacral ulcers Umbilical hernia PSH L foot 1st and 2nd digit amputation, 2015, 2017 Port-a-cath placement for milrinone, 2014 AAA repair colectomy s/p ischemic colitis & colostomy creation Cataract b/l s/p pura Sx FH Mom - breast ca, DM; Dad - throat ca SH Former smoker. Denies drug/drink. Walk w rolling walker Independent in 5/6 ADLs at baseline (eating, bathing, dressing, toling, transfering, toileting) cooks and help sort/administer pills All Doxycycline Shell-fish Meds- Please see current medications under this note Present on Admission - Present on Admission Any Indicators Present on Admission: No Review of Systems - Review of Systems Review of Systems: 12 point ROS obtained and noted in HPI Past Patient History - Infectious Disease Hx of Infectious Diseases: None - Tetanus Immunizations Tetanus Immunization: Unknown - Past Medical History & Family History Past Medical History?: Yes - Past Social History Smoking Status: Former Smoker - CARDIAC Hx Cardiac Disorders: Yes (CABG; AICD) Hx Congestive Heart Failure: Yes Hx Hypertension: Yes - PULMONARY Hx Respiratory Disorders: No - NEUROLOGICAL Hx Neurological Disorder: No - HEENT Hx Cataracts: Yes (bilateral laser sx) - RENAL Hx Chronic Kidney Disease: Yes - ENDOCRINE/METABOLIC Hx Diabetes Mellitus Type 2: Yes - HEMATOLOGICAL/ONCOLOGICAL Hx Blood Transfusions: No Hx Blood Transfusion Reaction: No - INTEGUMENTARY Other/Comment: STage 3 sacral ulcers. BLE redness w/ scattered scabs. Under breasts folds redness. Bilateral under belly Folds redness skin excoriated - MUSCULOSKELETAL/RHEUMATOLOGICAL Hx Falls: No - GASTROINTESTINAL Hx Gastrointestinal Disorders: (umbilical hernia ileostomy) - GENITOURINARY/GYNECOLOGICAL Hx Genitourinary Disorders: (external purwick catheter) Hx Reproductive Disorders: No - PSYCHIATRIC Hx Psychophysiologic Disorder: No Hx Substance Use: No - SURGICAL HISTORY Hx Abdominal Aortic Aneurysm Repair: Yes Hx Eye Surgery: Yes (Cataracts laser) - ANESTHESIA Hx Anesthesia: Yes Hx Anesthesia Reactions: No Hx Malignant Hyperthermia: No Meds Allergies/Adverse Reactions: Allergies Allergy/AdvReac Type Severity Reaction Status Date / Time amoxicillin [From Augmentin] Allergy ANAPHYLAXIS Verified 07/29/18 20:50 clavulanic acid Allergy ANAPHYLAXIS Verified 07/29/18 20:50 [From Augmentin] doxycycline Allergy ANAPHYLAXIS Verified 04/29/18 21:11 shellfish derived Allergy ANAPHYLAXIS Verified 04/29/18 21:11 Physical Exam - Additional Findings Additional findings: - Constitutional Appears: Non-toxic, No Acute Distress - Head Exam Head Exam: NORMAL INSPECTION, NORMOCEPHALIC - Eye Exam Eye Exam: EOMI, Normal appearance. absent: Nystagmus, Scleral icterus - Respiratory Exam Respiratory Exam: Clear to Ausculation Bilateral, NORMAL BREATHING PATTERN. absent: Rales, Rhonchi, Wheezes - Cardiovascular Exam Cardiovascular Exam: REGULAR RHYTHM, +S1, +S2 - GI/Abdominal Exam GI & Abdominal Exam: Soft, Normal Bowel Sounds. absent: Distended, Firm, Guarding, Tenderness Additional comments: colostomy bag in place - Extremities Exam Extremities Exam: Normal Inspection. absent: Calf Tenderness, Pedal Edema Additional comments: currently wearing multipodus boots submetatarsal 1 ulceration dressed wtih xeroform optifoam and DSD - Neurological Exam Neurological Exam: Alert, Awake, Oriented x3 - Psychiatric Exam Psychiatric exam: Normal Affect, Normal Mood - Skin Skin Exam: Intact, Normal Color Results - Vital Signs Recent Vital Signs: Last Vital Signs Temp 97.5 F L 08/05/18 22:57 Pulse 75 08/06/18 07:48 Resp 18 08/05/18 22:57 BP 143/87 08/06/18 07:48 Pulse Ox - Labs Result Diagrams: 08/06/18 05:26 08/06/18 05:26 Labs: Laboratory Results - last 24 hr 08/05/18 08/06/18 08/06/18 21:51 04:51 05:26 WBC 7.9 RBC 3.80 Hgb 11.4 L Hct 35.1 L MCV 92.4 MCH 30.0 MCHC 32.5 RDW 14.2 Plt Count 167 MPV 9.0 Gran % 72.2 H Lymph % (Auto) 15.2 L [place] % (Auto) 7.0 H Eos % (Auto) 5.2 H Baso % (Auto) 0.4 Gran # 5.71 Lymph # (Auto) 1.2 [place] # (Auto) 0.6 Eos # (Auto) 0.4 Baso # (Auto) 0.03 Sodium Potassium Chloride Carbon Dioxide Anion Gap BUN Creatinine Est GFR ( Amer) Est GFR (Non-Af Amer) POC Glucose (mg/dL) 161 H 157 H Random Glucose Calcium Total Bilirubin AST ALT Alkaline Phosphatase Total Protein Albumin Globulin Albumin/Globulin Ratio 08/06/18 05:26 WBC RBC Hgb Hct MCV MCH MCHC RDW Plt Count MPV Gran % Lymph % (Auto) [place] % (Auto) Eos % (Auto) Baso % (Auto) Gran # Lymph # (Auto) [place] # (Auto) Eos # (Auto) Baso # (Auto) Sodium 130 L Potassium 4.6 Chloride 96 L Carbon Dioxide 23 Anion Gap 16 BUN 62 H Creatinine 2.0 H Est GFR ( Amer) 30 Est GFR (Non-Af Amer) 24 POC Glucose (mg/dL) Random Glucose 149 H Calcium 8.4 Total Bilirubin 0.3 AST 42 H D ALT 26 Alkaline Phosphatase 104 Total Protein 6.2 Albumin 3.3 Globulin 2.9 Albumin/Globulin Ratio 1.1 Assessment & Plan - Assessment and Plan (Free Text) Assessment: Patient is a 73 F, with PMH CAD s/p CABG & AICD, systolic CHF (EF 30s, 2017, RVSP 24) with End-staged dilated cardiomyopathy s/p IV home inotropic therapy, diabetes with L toe amputation, AAA repair, colostomy s/p colectomy due to ischemic colitis, CKD stage 4, and chronic ataxia with DJD, admitted for systolic CHF exacerbation and community acquired pneumonia. Patient transferred to TCU after medical evaluation and treatment for PNA and CHF exacerbation. Patient will receive 10 days of antibiotics for complete PNA treatment. Plan: Acute Exacerbation of CHF Cardio consult: - Will change to Lasix 40 mg PO bid, Held lisinopril 5 mg qd, spirinolactone 25 mg qd in setting of hyponatremia Echo from 07/31- Dilated LV. Moderate to severe LV hypokinesis. Moderate MR and TR. Dilated LA and RA. Moderate pulmonary hypertension. PPM in RV noted. LVEF: 30% Strict I/O and daily weights, fluid restriction 1200 with diet; Lasix 40mg po bid Continue with Lopressor 100 mg bid, aspirin 81 mg, imdur 60 mg qd, lipitor 10 mg qd, Metolazone 2.5mg po daily. Community acquired Pneumonia ID consulted- Dr. Trevino- Continue on Azactam 1 gm IV q12h (Day 8) and Zyvox 600 mg IV q12h (Day 7) Chest xray from 08/01-There is moderate vascular congestion and interstitial infiltrate at the right lung base. MRSA-negative, Urine culture-multiple species, probable contamination, Blood culture-no growth after 3 days, procalcitonin: 0.07, L.pneumophilia ag: negative No leukocytosis, afebrile, asymptomatic VALE on CKD stage 4 Nephro Consulted- Dr. Cedeno- recs updated as below Likely prerenal in the setting of over diuresis Switched Lasix to 40 po bid, continue metolazone, fluid restriction Monitor with repeat CMPs Hyponatremia Nephro consulted: Dr. Cedeno- Tolvaptan 15mg x 1, Held lisinopril 5 mg qd, spiri nolactone 25 mg qd in setting of hyponatremia Fluid restrictio; Lasix 40mg po bid Strict I/O and daily weights; Repeat CMP in AM Hypocalcemia noted likely 2/2 diuretic use vs. Vit. D deficiency Dr. Cedeno consulted- recommendations appreciated Ca today: 8.2. Calcium carbonate 500 mg daily Vit D level 25.9; Cholecalciferol 1000 intlu po daily Left submetatarsal ulceration and stage 1 sacral ulcer ID consulted - Dr. Trevino - recommendations appreciated Podiatry consulted- Submetarsal 1 ulceration cleansed with saline and dressed with Optifoam and DSD after surgical debridement yesterday. Foot Xrays shows no signs of osteomyelitis Sub met 1 hallux wound cultured: coagulase negative staph. Await ID reccs. Continue with Zyvox and Azactam Lower extremity weakness and gait dysfunction Complains of right hip/lower extremity pain-ordered Tylenol 650 mg po Q6h prn Likely 2/2 DJD Podiatry to follow while in house ambulates with walker and assistance at home DM ISS- low dose ACHS Chronic anemia Hemodynamically stable Continue to monitor with serial CBCs Essential tremor Primidone 50mg po HS PPx GI ppx- Protonix 40 mg qd DVT ppx- heparin 5000 C q8h Dispo: Discharge pending TCU evaluation Medical Management discussed with Dr. Herman PGY-1 Tiffany Egan
[2018-08-06] MEDS: metOLazone 5 MG TAB PO SCH (09:56)
[2018-08-06] MEDS: Cholecalciferol 1,000 INTLU TAB PO SCH (09:56)
[2018-08-06] MEDS ORDERED: Furosemide 40 mg/5 mL Oral Soln UD PO SCH (10:00)
--- NOTE | 2018-08-06 11:23 | CP.PCM.PN ---
Subjective - Date & Time of Evaluation Date of Evaluation: 08/06/18 Time of Evaluation: 11:20 - Subjective Subjective: Podiatry Progress Note for Dr. Cortés 73 yo female patient, seen and evaluated, at bedside with Dr. Cortés. Patient is AAOx3 and in NAD. She continues to have pain to her right hip which has not resolved during her hospital stay. She denies any other pedal complaints at this time. Patient denies N/V/F. Objective - Vital Signs/Intake and Output Vital Signs (last 24 hours): Temp Pulse Resp BP Pulse Ox 97.5 F L 67 18 107/74 08/05/18 22:57 08/06/18 09:57 08/05/18 22:57 08/06/18 10:19 Intake and Output: 08/06/18 08/06/18 06:59 18:59 Intake Total 240 Output Total 250 Balance -10 - Medications Medications: Current Medications Acetaminophen (Tylenol 325mg Tab) 650 mg PO Q6H PRN; Protocol PRN Reason: Pain, Mild (1-3) Albuterol/Ipratropium (Duoneb 3 Mg/0.5 Mg (3 Ml) Ud) 3 ml IH [id number] PRN; Protocol PRN Reason: Shortness of Breath Ascorbic Acid (Vitamin C 500 Mg Tab) 500 mg PO DAILY MADHAVI; Protocol Last Admin: 08/06/18 09:57 Dose: 500 mg Aspirin (Ecotrin) 81 mg PO 0800 MADHAVI; Protocol Last Admin: 08/06/18 07:49 Dose: 81 mg Atorvastatin Calcium (Lipitor) 10 mg PO DIN MADHAVI; Protocol Calcium Carbonate (Oscal) 500 mg PO DAILY MADHAVI; Protocol Last Admin: 08/06/18 09:57 Dose: 500 mg Cholecalciferol (Vitamin D) 1,000 intlu PO DAILY MADHAVI; Protocol Last Admin: 08/06/18 09:56 Dose: 1,000 intlu Cyanocobalamin (Vitamin B12 1000 Mcg Tab) 1,000 mcg PO BID MADHAVI; Protocol Last Admin: 08/06/18 09:57 Dose: 1,000 mcg Furosemide (Lasix) 40 mg PO DAILY MADHAVI; Protocol Heparin Sodium (Porcine) (Heparin) 5,000 units SC Q8 MADHAVI; Protocol Last Admin: 08/06/18 05:09 Dose: 5,000 units Aztreonam (Azactam 1 Gm) 100 mls @ 100 mls/hr IVPB 0600,1800 MADHAVI; Protocol Stop: 08/08/18 06:01 Last Admin: 08/06/18 05:07 Dose: 100 mls/hr Linezolid (Zyvox 600mg/300ml D5w) 600 mg in 300 mls @ 200 mls/hr IVPB 0600,1800 MADHAVI; Protocol Stop: 08/09/18 18:01 Last Admin: 08/06/18 06:51 Dose: 200 mls/hr Insulin Human Regular (Humulin R Low) 0 units SC ACHS MADHAVI; Protocol Last Admin: 08/06/18 06:56 Dose: 1 unit Isosorbide Mononitrate (Imdur) 60 mg PO 0600 MADHAVI; Protocol Last Admin: 08/06/18 05:07 Dose: 60 mg Lisinopril (Zestril) 10 mg PO DAILY MADHAVI; Protocol Last Admin: 08/06/18 09:57 Dose: 10 mg Metolazone (Zaroxolyn) 5 mg PO DAILY MADHAVI; Protocol Last Admin: 08/06/18 09:56 Dose: 5 mg Metoprolol Tartrate (Lopressor) 100 mg PO BRKDIN MADHAVI; Protocol Last Admin: 08/06/18 07:48 Dose: 100 mg Multivitamins (Thera Tab) 1 tab PO 0800 MADHAVI; Protocol Last Admin: 08/06/18 08:26 Dose: 1 tab Oxycodone/Acetaminophen (Percocet 5/325 Mg Tab) 1 tab PO DAILY PRN; Protocol PRN Reason: Pain, moderate (4-7) Stop: 08/09/18 10:01 Last Admin: 08/05/18 23:19 Dose: 1 tab Pantoprazole Sodium (Protonix Ec Tab) 40 mg PO 0600 MADHAVI; Protocol Last Admin: 08/06/18 05:07 Dose: 40 mg Primidone (Mysoline) 50 mg PO HS MADHAVI; Protocol Last Admin: 08/05/18 21:18 Dose: 50 mg - Labs Labs: 08/06/18 05:26 08/06/18 05:26 - Constitutional Appears: Well, Non-toxic, No Acute Distress - Head Exam Head Exam: ATRAUMATIC, NORMOCEPHALIC - Extremities Exam Additional comments: Lower extremity focused exam: Vasc: DP 1/4, PT 1/4 bilaterally, CFT <3 seconds to digits, TG warm to warm, +1 pitting edema noted circumfrentially to legs bilaterally Ortho: Partial left hallux amputation and second digit amputation. Rigid hammertoe contractures to lesser digits on the R foot Neuro: Gross sensation intact, protective sensation absent Derm: Left plantar submetatarsal head 1 ulceration; resolving. Epithelialization appreciated, no drainage, no probe to bone, no malodor, no tunneling or tracking. No cellulitis or erythema noted. - Neurological Exam Neurological Exam: Alert, Awake, Oriented x3 - Psychiatric Exam Psychiatric exam: Normal Affect, Normal Mood Assessment and Plan - Assessment and Plan (Free Text) Assessment: 73 yo female with left plantar submetatarsal head 1 ulceration; resolving. Plan: Patient seen and evaluated at bedside this morning with Dr. Cortés VSS, WBC 7.9 L foot x-ray (07/31); No OM appreciated L foot wound culture (07/30): coagulase neg staphylococcus Continue local wound care: optifoam to submet 1 ulceration Discussed with patient the importance of wearing multipodus boots at all times in bed TCU for continued abx and strengthening Podiatry will continue to follow while in TCU; upon discharge patient to follow up with Dr. Cortés in office
--- NOTE | 2018-08-06 13:31 | PN ---
DATE: 08/06/2018 CARDIOLOGY FOLLOWUP SUBJECTIVE: The patient's breathing is without an issue. PHYSICAL EXAMINATION: VITAL SIGNS: Blood pressure is 143/87, the heart rate is in the 70s. NECK: Negative JVD. LUNGS: Without rales. HEART: Reveals S1, S2. EXTREMITIES: Decreasing edema. LABORATORY DATA: BUN and creatinine 62 and 2, glucose is 157. Hemoglobin is 11.4. IMPRESSION: 1. Progressive prerenal azotemia. 2. End-stage dilated cardiomyopathy. 3. An infection of the lower extremities. 4. Coronary artery disease. 5. Anemia. PLAN: Given these findings, we will lower her Lasix dose to 40 once a day. Vinnie Vidales MD
[2018-08-06] MEDS: Oxycodone/Acetaminophen 5/325 mg Tab PO PRN (13:47)
--- NOTE | 2018-08-06 16:39 | CP.PCM.CON ---
History of Present Illness - History of Present Illness History of Present Illness: 72 year old female with PMH of CAD S/P CABG, abdominal aortic aneurysm S/P repair, S/P cholecystectomy, S/P pacemaker placement, DM, S/P left toe amputation initially came in to [facility] because of pain in her left leg and foot and was found to have foot ulcer associated with left leg and foot cellulitis. She has been improving with antibiotics and local wound care by Podiatry and is now transferred to [facility] for continued medical therapy and physical exam. Infectious Diseases consult is requested to continue her antibiotic therapy. She denies fever or chills, left leg and foot feel better, no nausea or vomiting, no headache or dizziness, no chest pain, no SOB, no rhinorrhea, no cough, no diarrhea, no dysuria. Review of Systems - Review of Systems All systems: reviewed and no additional remarkable complaints except (as per HPI) Past Patient History - Infectious Disease Hx of Infectious Diseases: None - Tetanus Immunizations Tetanus Immunization: Unknown - Past Medical History & Family History Past Medical History?: Yes - Past Social History Smoking Status: Former Smoker - CARDIAC Hx Cardiac Disorders: Yes (CABG; AICD) Hx Congestive Heart Failure: Yes Hx Hypertension: Yes - PULMONARY Hx Respiratory Disorders: No - NEUROLOGICAL Hx Neurological Disorder: No - HEENT Hx Cataracts: Yes (bilateral laser sx) - RENAL Hx Chronic Kidney Disease: Yes - ENDOCRINE/METABOLIC Hx Diabetes Mellitus Type 2: Yes - HEMATOLOGICAL/ONCOLOGICAL Hx Blood Transfusions: No Hx Blood Transfusion Reaction: No - INTEGUMENTARY Other/Comment: STage 3 sacral ulcers. BLE redness w/ scattered scabs. Under breasts folds redness. Bilateral under belly Folds redness skin excoriated - MUSCULOSKELETAL/RHEUMATOLOGICAL Hx Falls: No - GASTROINTESTINAL Hx Gastrointestinal Disorders: (umbilical hernia ileostomy) - GENITOURINARY/GYNECOLOGICAL Hx Genitourinary Disorders: (external purwick catheter) Hx Reproductive Disorders: No - PSYCHIATRIC Hx Psychophysiologic Disorder: No Hx Substance Use: No - SURGICAL HISTORY Hx Abdominal Aortic Aneurysm Repair: Yes Hx Eye Surgery: Yes (Cataracts laser) - ANESTHESIA Hx Anesthesia: Yes Hx Anesthesia Reactions: No Hx Malignant Hyperthermia: No Meds Allergies/Adverse Reactions: Allergies Allergy/AdvReac Type Severity Reaction Status Date / Time amoxicillin [From Augmentin] Allergy ANAPHYLAXIS Verified 07/29/18 20:50 clavulanic acid Allergy ANAPHYLAXIS Verified 07/29/18 20:50 [From Augmentin] doxycycline Allergy ANAPHYLAXIS Verified 04/29/18 21:11 shellfish derived Allergy ANAPHYLAXIS Verified 04/29/18 21:11 - Medications Medications: Current Medications Acetaminophen (Tylenol 325mg Tab) 650 mg PO Q6H PRN; Protocol PRN Reason: Pain, Mild (1-3) Albuterol/Ipratropium (Duoneb 3 Mg/0.5 Mg (3 Ml) Ud) 3 ml IH [id number] PRN; Protocol PRN Reason: Shortness of Breath Ascorbic Acid (Vitamin C 500 Mg Tab) 500 mg PO DAILY MAHDAVI; Protocol Aspirin (Ecotrin) 81 mg PO 0800 MADHAVI; Protocol Atorvastatin Calcium (Lipitor) 10 mg PO DIN MADHAVI; Protocol Calcium Carbonate (Oscal) 500 mg PO DAILY MADHAVI; Protocol Cholecalciferol (Vitamin D) 1,000 intlu PO DAILY MADHAVI; Protocol Cyanocobalamin (Vitamin B12 1000 Mcg Tab) 1,000 mcg PO BID MADHAVI; Protocol Furosemide (Lasix) 40 mg PO DAILY MADHAVI; Protocol Heparin Sodium (Porcine) (Heparin) 5,000 units SC Q8 MADHAVI; Protocol Last Admin: 08/06/18 05:09 Dose: 5,000 units Aztreonam (Azactam 1 Gm) 100 mls @ 100 mls/hr IVPB 0600,1800 MADHAVI; Protocol Stop: 08/08/18 06:01 Last Admin: 08/06/18 05:07 Dose: 100 mls/hr Linezolid (Zyvox 600mg/300ml D5w) 600 mg in 300 mls @ 200 mls/hr IVPB 0600,1800 MADHAVI; Protocol Stop: 08/09/18 18:01 Last Admin: 08/05/18 23:06 Dose: 200 mls/hr Insulin Human Regular (Humulin R Low) 0 units SC ACHS MADHAVI; Protocol Last Admin: 08/06/18 01:10 Dose: Not Given Isosorbide Mononitrate (Imdur) 60 mg PO 0600 MADHAVI; Protocol Last Admin: 08/06/18 05:07 Dose: 60 mg Lisinopril (Zestril) 10 mg PO DAILY MADHAVI; Protocol Metolazone (Zaroxolyn) 5 mg PO DAILY MADHAVI; Protocol Metoprolol Tartrate (Lopressor) 100 mg PO BRKDIN MADHAVI; Protocol Multivitamins (Thera Tab) 1 tab PO 0800 MADHAVI; Protocol Oxycodone/Acetaminophen (Percocet 5/325 Mg Tab) 1 tab PO DAILY PRN; Protocol PRN Reason: Pain, moderate (4-7) Stop: 08/09/18 10:01 Last Admin: 08/05/18 23:19 Dose: 1 tab Pantoprazole Sodium (Protonix Ec Tab) 40 mg PO 0600 MADHAVI; Protocol Last Admin: 08/06/18 05:07 Dose: 40 mg Primidone (Mysoline) 50 mg PO HS MADHAVI; Protocol Last Admin: 08/05/18 21:18 Dose: 50 mg Physical Exam - Constitutional Appears: No Acute Distress, Chronically Ill - Neck Exam Neck exam: Negative for: Meningismus - Respiratory Exam Respiratory Exam: Decreased Breath Sounds - Cardiovascular Exam Cardiovascular Exam: +S1, +S2 - GI/Abdominal Exam GI & Abdominal Exam: Soft. absent: Tenderness - Extremities Exam Additional comments: left foot with dressings in place Results - Vital Signs Recent Vital Signs: Last Vital Signs Temp 97.5 F L 08/05/18 22:57 Pulse 73 08/05/18 22:57 Resp 18 08/05/18 22:57 BP 139/87 08/05/18 22:57 Pulse Ox - Labs Result Diagrams: 08/06/18 05:26 08/06/18 05:26 Labs: Laboratory Results - last 24 hr 08/05/18 08/06/18 08/06/18 21:51 04:51 05:26 WBC 7.9 RBC 3.80 Hgb 11.4 L Hct 35.1 L MCV 92.4 MCH 30.0 MCHC 32.5 RDW 14.2 Plt Count 167 MPV 9.0 Gran % 72.2 H Lymph % (Auto) 15.2 L [place] % (Auto) 7.0 H Eos % (Auto) 5.2 H Baso % (Auto) 0.4 Gran # 5.71 Lymph # (Auto) 1.2 [place] # (Auto) 0.6 Eos # (Auto) 0.4 Baso # (Auto) 0.03 POC Glucose (mg/dL) 161 H 157 H Assessment & Plan - Assessment and Plan (Free Text) Plan: Assessment left leg cellulitis as well as right sided community-acquired pneumonia S/P left foot 2nd digit skin and skin structure infection CAD S/P CABG abdominal aortic aneurysm S/P repair S/P cholecystectomy S/P pacemaker placement DM S/P left toe amputation Plan continue Zyvox and Azactam day 8 for 7-10 days and will continue to monitor clinically
[2018-08-06] MEDS ORDERED: oxyCODONE 5 mg Immediate Release Tab PO STA (23:41)
[2018-08-07] MEDS: Aztreonam 1 Gm in NS 100mL 100 ML IVPB SCH ×2 (05:20→17:15)
[2018-08-07] MEDS: Linezolid 600 mg in D5W 300 ml 600 MG/300 ML BAG IVPB SCH ×2 (05:21→17:15)
[2018-08-07] MEDS: Pantoprazole 40 mg EC Tab PO SCH (05:21)
[2018-08-07] MEDS: Insulin Reg-LOW-Coverage SC SCH ×4 (06:30→22:15)
[2018-08-07] MEDS: Multivitamin Therapeutic Tab PO SCH (08:00)
[2018-08-07] MEDS: Cholecalciferol 1,000 INTLU TAB PO SCH (09:04)
[2018-08-07] MEDS: metOLazone 5 MG TAB PO SCH (09:05)
[2018-08-07] MEDS: Oxycodone/Acetaminophen 5/325 mg Tab PO PRN ×2 (10:45→22:22)
--- NOTE | 2018-08-07 13:38 | CP.PCM.CON ---
<Talia Ratliff - Last Filed: 08/07/18 14:14> History of Present Illness - History of Present Illness History of Present Illness: Talia Ratliff DO, PGY-2: Nephrology Consult Note for Dr. 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 Nephrology was consulted for VALE on CKD and Hyponatremia in the setting of aggressive diuresis. Patient denies fever, chills, nausea, vomiting, diarrhea, chest pain, palpitations, dysgeusia, dyspnea (but is not ambulating). Otherwise, 12 point ROS is negative. The patient is now in the TCU and undergo rehabilitation for her gait. She denies any shortness of breath; reports fair appetite, admits to things tasting flavorless. Otherwise, she endorses no complaints. 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, AAA repair, colectomy s/p ischemic colitis & colostomy creation, Cataract b/l s/p pura Sx FH: Mom - breast ca, DM; Dad - throat ca Social History: Former smoker, denies alcohol or illicit drug use; cooks and help sort/administer pills Allergies: Doxycycline, Shellfish, Augmentin Review of Systems - Review of Systems All systems: reviewed and no additional remarkable complaints except (as per HPI) Past Patient History - Infectious Disease Hx of Infectious Diseases: None - Tetanus Immunizations Tetanus Immunization: Unknown - Past Medical History & Family History Past Medical History?: Yes - Past Social History Smoking Status: Former Smoker - CARDIAC Hx Cardiac Disorders: Yes (CABG; AICD) Hx Congestive Heart Failure: Yes Hx Hypertension: Yes - PULMONARY Hx Respiratory Disorders: No - NEUROLOGICAL Hx Neurological Disorder: No - HEENT Hx Cataracts: Yes (bilateral laser sx) - RENAL Hx Chronic Kidney Disease: Yes - ENDOCRINE/METABOLIC Hx Diabetes Mellitus Type 2: Yes - HEMATOLOGICAL/ONCOLOGICAL Hx Blood Transfusions: No Hx Blood Transfusion Reaction: No - INTEGUMENTARY Other/Comment: STage 3 sacral ulcers. BLE redness w/ scattered scabs. Under breasts folds redness. Bilateral under belly Folds redness skin excoriated - MUSCULOSKELETAL/RHEUMATOLOGICAL Hx Falls: No - GASTROINTESTINAL Hx Gastrointestinal Disorders: (umbilical hernia ileostomy) - GENITOURINARY/GYNECOLOGICAL Hx Genitourinary Disorders: (external purwick catheter) Hx Reproductive Disorders: No - PSYCHIATRIC Hx Psychophysiologic Disorder: No Hx Substance Use: No - SURGICAL HISTORY Hx Abdominal Aortic Aneurysm Repair: Yes Hx Eye Surgery: Yes (Cataracts laser) - ANESTHESIA Hx Anesthesia: Yes Hx Anesthesia Reactions: No Hx Malignant Hyperthermia: No Meds Allergies/Adverse Reactions: Allergies Allergy/AdvReac Type Severity Reaction Status Date / Time amoxicillin [From Augmentin] Allergy ANAPHYLAXIS Verified 07/29/18 20:50 clavulanic acid Allergy ANAPHYLAXIS Verified 07/29/18 20:50 [From Augmentin] doxycycline Allergy ANAPHYLAXIS Verified 04/29/18 21:11 shellfish derived Allergy ANAPHYLAXIS Verified 04/29/18 21:11 - Medications Medications: Current Medications Acetaminophen (Tylenol 325mg Tab) 650 mg PO Q6H PRN; Protocol PRN Reason: Pain, Mild (1-3) Last Admin: 08/06/18 20:34 Dose: 650 mg Albuterol/Ipratropium (Duoneb 3 Mg/0.5 Mg (3 Ml) Ud) 3 ml IH [id number] PRN; Protocol PRN Reason: Shortness of Breath Ascorbic Acid (Vitamin C 500 Mg Tab) 500 mg PO DAILY [facility]; Protocol Last Admin: 08/07/18 09:03 Dose: 500 mg Aspirin (Ecotrin) 81 mg PO 0800 [facility]; Protocol Last Admin: 08/07/18 07:58 Dose: 81 mg Atorvastatin Calcium (Lipitor) 10 mg PO DIN [facility]; Protocol Last Admin: 08/06/18 18:18 Dose: 10 mg Calcitriol (Rocaltrol) 0.25 mcg PO F [facility] Calcium Carbonate (Oscal) 500 mg PO DAILY [facility]; Protocol Last Admin: 08/07/18 09:03 Dose: 500 mg Cholecalciferol (Vitamin D) 1,000 intlu PO DAILY [facility]; Protocol Last Admin: 08/07/18 09:04 Dose: 1,000 intlu Cyanocobalamin (Vitamin B12 1000 Mcg Tab) 1,000 mcg PO BID [facility]; Protocol Last Admin: 08/07/18 09:04 Dose: 1,000 mcg Furosemide (Lasix) 40 mg PO DAILY [facility]; Protocol Last Admin: 08/07/18 09:03 Dose: 40 mg Heparin Sodium (Porcine) (Heparin) 5,000 units SC Q8 [facility]; Protocol Last Admin: 08/07/18 05:20 Dose: 5,000 units Aztreonam (Azactam 1 Gm) 100 mls @ 100 mls/hr IVPB 0600,1800 [facility]; Protocol Stop: 08/08/18 06:01 Last Admin: 08/07/18 05:20 Dose: 100 mls/hr Linezolid (Zyvox 600mg/300ml D5w) 600 mg in 300 mls @ 200 mls/hr IVPB 0600,1800 [facility]; Protocol Stop: 08/09/18 18:01 Last Admin: 08/07/18 05:21 Dose: 200 mls/hr Insulin Human Regular (Humulin R Low) 0 units SC ACHS [facility]; Protocol Last Admin: 08/07/18 12:00 Dose: 2 unit Isosorbide Mononitrate (Imdur) 60 mg PO 0600 [facility]; Protocol Last Admin: 08/07/18 05:21 Dose: 60 mg Lisinopril (Zestril) 10 mg PO DAILY [facility]; Protocol Last Admin: 08/07/18 09:04 Dose: 10 mg Metolazone (Zaroxolyn) 5 mg PO DAILY [facility]; Protocol Last Admin: 08/07/18 09:05 Dose: 5 mg Metoprolol Tartrate (Lopressor) 100 mg PO BRKDIN [facility]; Protocol Last Admin: 08/07/18 07:59 Dose: 100 mg Multivitamins (Thera Tab) 1 tab PO 0800 [facility]; Protocol Last Admin: 08/07/18 08:00 Dose: 1 tab Oxycodone/Acetaminophen (Percocet 5/325 Mg Tab) 1 tab PO DAILY PRN; Protocol PRN Reason: Pain, moderate (4-7) Stop: 08/09/18 10:01 Last Admin: 08/07/18 10:45 Dose: 1 tab Pantoprazole Sodium (Protonix Ec Tab) 40 mg PO 0600 [facility]; Protocol Last Admin: 08/07/18 05:21 Dose: 40 mg Primidone (Mysoline) 50 mg PO HS [facility]; Protocol Last Admin: 08/06/18 21:13 Dose: 50 mg Physical Exam - Constitutional Appears: Non-toxic, No Acute Distress - Head Exam Head Exam: ATRAUMATIC, NORMOCEPHALIC - Eye Exam Eye Exam: EOMI, Normal appearance - Respiratory Exam Respiratory Exam: Clear to Auscultation Bilateral, NORMAL BREATHING PATTERN. absent: Accessory Muscle Use - Cardiovascular Exam Cardiovascular Exam: RRR, +S1, +S2 - GI/Abdominal Exam GI & Abdominal Exam: Normal Bowel Sounds - Extremities Exam Extremities exam: Positive for: normal inspection. Negative for: calf tenderness - Neurological Exam Neurological exam: Alert, CN II-XII Intact, Oriented x3 - Skin Skin Exam: Dry, Intact, Normal Color, Warm Results - Vital Signs Recent Vital Signs: Last Vital Signs Temp 97.9 F 08/06/18 16:00 Pulse 77 08/07/18 09:04 Resp 18 08/06/18 16:00 BP 127/84 08/07/18 09:04 Pulse Ox 98 08/06/18 16:00 - Labs Result Diagrams: 08/06/18 05:26 08/06/18 05:26 Labs: Laboratory Results - last 24 hr 08/06/18 08/06/18 08/07/18 17:18 21:03 05:12 POC Glucose (mg/dL) 136 H 191 H 134 H 08/07/18 11:27 POC Glucose (mg/dL) 207 H Assessment & Plan - Assessment and Plan (Free Text) Plan: 1) CKD with hyperparathyroidism and electrolyte disturbance - Calcitriol 0.25 mcg MWF - 50,000 once weekly of Ergocalciferol - Corrected Na is 131 2) CHF - daily weights - Continue on current diuretics. May increase Diuretics based on patient's weight. We will continue to follow with you Case reviewed and discussed with attending physician, Dr. Cedeno <Derek Cedeno - Last Filed: 08/08/18 08:14> Meds - Medications Medications: Current Medications Acetaminophen (Tylenol 325mg Tab) 650 mg PO Q6H PRN; Protocol PRN Reason: Pain, Mild (1-3) Last Admin: 08/06/18 20:34 Dose: 650 mg Albuterol/Ipratropium (Duoneb 3 Mg/0.5 Mg (3 Ml) Ud) 3 ml IH [id number] PRN; Protocol PRN Reason: Shortness of Breath Ascorbic Acid (Vitamin C 500 Mg Tab) 500 mg PO DAILY [facility]; Protocol Last Admin: 08/07/18 09:03 Dose: 500 mg Aspirin (Ecotrin) 81 mg PO 0800 [facility]; Protocol Last Admin: 08/07/18 07:58 Dose: 81 mg Atorvastatin Calcium (Lipitor) 10 mg PO DIN [facility]; Protocol Last Admin: 08/07/18 17:17 Dose: 10 mg Calcitriol (Rocaltrol) 0.25 mcg PO MWF [facility] Calcium Carbonate (Oscal) 500 mg PO DAILY [facility]; Protocol Last Admin: 08/07/18 09:03 Dose: 500 mg Cholecalciferol (Vitamin D) 1,000 intlu PO DAILY [facility]; Protocol Last Admin: 08/07/18 09:04 Dose: 1,000 intlu Cyanocobalamin (Vitamin B12 1000 Mcg Tab) 1,000 mcg PO BID [facility]; Protocol Last Admin: 08/07/18 17:18 Dose: 1,000 mcg Furosemide (Lasix) 40 mg PO DAILY [facility]; Protocol Last Admin: 08/07/18 09:03 Dose: 40 mg Heparin Sodium (Porcine) (Heparin) 5,000 units SC Q8 [facility]; Protocol Last Admin: 08/08/18 05:02 Dose: 5,000 units Linezolid (Zyvox 600mg/300ml D5w) 600 mg in 300 mls @ 200 mls/hr IVPB 0600,1800 [facility]; Protocol Stop: 08/09/18 18:01 Last Admin: 08/08/18 05:03 Dose: 200 mls/hr Insulin Human Regular (Humulin R Low) 0 units SC ACHS [facility]; Protocol Last Admin: 08/08/18 06:51 Dose: 1 unit Isosorbide Mononitrate (Imdur) 60 mg PO 0600 [facility]; Protocol Last Admin: 08/08/18 05:03 Dose: 60 mg Lisinopril (Zestril) 10 mg PO DAILY [facility]; Protocol Last Admin: 08/07/18 09:04 Dose: 10 mg Metoprolol Tartrate (Lopressor) 100 mg PO BRKDIN [facility]; Protocol Last Admin: 08/08/18 06:51 Dose: 100 mg Multivitamins (Thera Tab) 1 tab PO 0800 [facility]; Protocol Last Admin: 08/07/18 08:00 Dose: 1 tab Oxycodone/Acetaminophen (Percocet 5/325 Mg Tab) 1 tab PO DAILY PRN; Protocol PRN Reason: Pain, moderate (4-7) Stop: 08/09/18 10:01 Last Admin: 08/07/18 22:22 Dose: 1 tab Pantoprazole Sodium (Protonix Ec Tab) 40 mg PO 0600 [facility]; Protocol Last Admin: 08/08/18 05:03 Dose: 40 mg Primidone (Mysoline) 50 mg PO HS [facility]; Protocol Last Admin: 08/07/18 22:24 Dose: 50 mg Results - Vital Signs Recent Vital Signs: Last Vital Signs Temp 97.6 F 08/07/18 16:00 Pulse 78 08/08/18 06:51 Resp 18 08/07/18 16:00 BP 151/95 H 08/08/18 06:51 Pulse Ox 98 08/07/18 16:00 - Labs Result Diagrams: 08/08/18 05:40 08/08/18 05:40 Labs: Laboratory Results - last 24 hr 08/07/18 08/07/18 08/07/18 11:27 16:37 22:02 WBC RBC Hgb Hct MCV MCH MCHC RDW Plt Count MPV Gran % Lymph % (Auto) [place] % (Auto) Eos % (Auto) Baso % (Auto) Gran # Lymph # (Auto) [place] # (Auto) Eos # (Auto) Baso # (Auto) Sodium Potassium Chloride Carbon Dioxide Anion Gap BUN Creatinine Est GFR ( Amer) Est GFR (Non-Af Amer) POC Glucose (mg/dL) 207 H 153 H 171 H Random Glucose Calcium Total Bilirubin AST ALT Alkaline Phosphatase Total Protein Albumin Globulin Albumin/Globulin Ratio 08/08/18 08/08/18 08/08/18 05:01 05:40 05:40 WBC 6.1 D RBC 3.62 Hgb 10.7 L Hct 33.7 L MCV 93.1 MCH 29.6 MCHC 31.8 RDW 14.2 Plt Count 116 L MPV 9.3 Gran % 66.9 Lymph % (Auto) 20.4 L [place] % (Auto) 7.6 H Eos % (Auto) 4.4 Baso % (Auto) 0.7 Gran # 4.08 Lymph # (Auto) 1.2 [place] # (Auto) 0.5 Eos # (Auto) 0.3 Baso # (Auto) 0.04 Sodium 128 L Potassium 4.6 Chloride 98 Carbon Dioxide 21 Anion Gap 14 BUN 56 H Creatinine 1.7 H Est GFR ( Amer) 36 Est GFR (Non-Af Amer) 30 POC Glucose (mg/dL) 156 H Random Glucose 128 H Calcium 7.6 L Total Bilirubin 0.5 AST 30 ALT 23 Alkaline Phosphatase 93 Total Protein 6.1 Albumin 3.3 Globulin 2.8 Albumin/Globulin Ratio 1.2 Attending/Attestation - Attestation I have personally seen and examined this patient.: Yes I have fully participated in the care of the patient.: Yes I have reviewed all pertinent clinical information: Yes Notes (Text): Patient seen and examined; I agree with the resident's note as above with the following additions/edits: 73 yo F w/ pmh of htn, dm, CKD IIIB, CHF w/ systolic dysfunction, admitted with lethargy
--- NOTE | 2018-08-07 13:43 | CP.PCM.PN ---
Subjective - Date & Time of Evaluation Date of Evaluation: 08/07/18 Time of Evaluation: 13:39 - Subjective Subjective: Podiatry Progress Note for Dr. Cortés 73 yo female patient, seen and evaluated for left submetatarsal 1 ulceration. Patient is resting comfortably in bed and denies any acute events overnight. She states that she feels well today and has been continuing with PT as expected. Denies N/F/V/CP. Objective - Vital Signs/Intake and Output Vital Signs (last 24 hours): Temp Pulse Resp BP Pulse Ox 97.9 F 77 18 127/84 98 08/06/18 16:00 08/07/18 09:04 08/06/18 16:00 08/07/18 09:04 08/06/18 16:00 Intake and Output: 08/07/18 08/07/18 06:59 18:59 Intake Total 360 Output Total 905 Balance -545 - Medications Medications: Current Medications Acetaminophen (Tylenol 325mg Tab) 650 mg PO Q6H PRN; Protocol PRN Reason: Pain, Mild (1-3) Last Admin: 08/06/18 20:34 Dose: 650 mg Albuterol/Ipratropium (Duoneb 3 Mg/0.5 Mg (3 Ml) Ud) 3 ml IH [id number] PRN; Protocol PRN Reason: Shortness of Breath Ascorbic Acid (Vitamin C 500 Mg Tab) 500 mg PO DAILY [facility]; Protocol Last Admin: 08/07/18 09:03 Dose: 500 mg Aspirin (Ecotrin) 81 mg PO 0800 [facility]; Protocol Last Admin: 08/07/18 07:58 Dose: 81 mg Atorvastatin Calcium (Lipitor) 10 mg PO DIN [facility]; Protocol Last Admin: 08/06/18 18:18 Dose: 10 mg Calcitriol (Rocaltrol) 0.25 mcg PO MWF [facility] Calcium Carbonate (Oscal) 500 mg PO DAILY [facility]; Protocol Last Admin: 08/07/18 09:03 Dose: 500 mg Cholecalciferol (Vitamin D) 1,000 intlu PO DAILY [facility]; Protocol Last Admin: 08/07/18 09:04 Dose: 1,000 intlu Cyanocobalamin (Vitamin B12 1000 Mcg Tab) 1,000 mcg PO BID [facility]; Protocol Last Admin: 08/07/18 09:04 Dose: 1,000 mcg Furosemide (Lasix) 40 mg PO DAILY [facility]; Protocol Last Admin: 08/07/18 09:03 Dose: 40 mg Heparin Sodium (Porcine) (Heparin) 5,000 units SC Q8 [facility]; Protocol Last Admin: 08/07/18 13:37 Dose: 5,000 units Aztreonam (Azactam 1 Gm) 100 mls @ 100 mls/hr IVPB 0600,1800 [facility]; Protocol Stop: 08/08/18 06:01 Last Admin: 08/07/18 05:20 Dose: 100 mls/hr Linezolid (Zyvox 600mg/300ml D5w) 600 mg in 300 mls @ 200 mls/hr IVPB 0600,1800 [facility]; Protocol Stop: 08/09/18 18:01 Last Admin: 08/07/18 05:21 Dose: 200 mls/hr Insulin Human Regular (Humulin R Low) 0 units SC ACHS [facility]; Protocol Last Admin: 08/07/18 12:00 Dose: 2 unit Isosorbide Mononitrate (Imdur) 60 mg PO 0600 [facility]; Protocol Last Admin: 08/07/18 05:21 Dose: 60 mg Lisinopril (Zestril) 10 mg PO DAILY [facility]; Protocol Last Admin: 08/07/18 09:04 Dose: 10 mg Metolazone (Zaroxolyn) 5 mg PO DAILY [facility]; Protocol Last Admin: 08/07/18 09:05 Dose: 5 mg Metoprolol Tartrate (Lopressor) 100 mg PO BRKDIN [facility]; Protocol Last Admin: 08/07/18 07:59 Dose: 100 mg Multivitamins (Thera Tab) 1 tab PO 0800 [facility]; Protocol Last Admin: 08/07/18 08:00 Dose: 1 tab Oxycodone/Acetaminophen (Percocet 5/325 Mg Tab) 1 tab PO DAILY PRN; Protocol PRN Reason: Pain, moderate (4-7) Stop: 08/09/18 10:01 Last Admin: 08/07/18 10:45 Dose: 1 tab Pantoprazole Sodium (Protonix Ec Tab) 40 mg PO 0600 [facility]; Protocol Last Admin: 08/07/18 05:21 Dose: 40 mg Primidone (Mysoline) 50 mg PO HS [facility]; Protocol Last Admin: 08/06/18 21:13 Dose: 50 mg - Labs Labs: 08/06/18 05:26 08/06/18 05:26 - Constitutional Appears: Well, Non-toxic, No Acute Distress - Head Exam Head Exam: ATRAUMATIC, NORMOCEPHALIC - Extremities Exam Additional comments: Lower extremity focused exam: Vasc: DP 1/4, PT 1/4 bilaterally, CFT <3 seconds to digits, TG warm to warm, +1 pitting edema noted circumfrentially to legs bilaterally Ortho: Partial left hallux amputation and second digit amputation. Rigid hammertoe contractures to lesser digits on the R foot Neuro: Gross sensation intact, protective sensation absent Derm: Left plantar submetatarsal head 1 ulceration; resolved. Epithelialization appreciated, no drainage, no probe to bone, no malodor, no tunneling or tracking. No cellulitis or erythema noted. - Neurological Exam Neurological Exam: Alert, Awake, Oriented x3 - Psychiatric Exam Psychiatric exam: Normal Affect, Normal Mood Assessment and Plan - Assessment and Plan (Free Text) Assessment: 73 yo female with left plantar submetatarsal head 1 ulceration; resolved Plan: Patient seen and evaluated at bedside Patient pland discussed in detail with Dr. Cortés L foot x-ray (07/31); No OM appreciated L foot wound culture (07/30): coagulase neg staphylococcus Optifoam placed on location of submet 1 ulceration to help offload area and prevent breakdown TCU for continued abx and physical therapy Upon discharge from TCU patient to follow up with Dr. Cortés in office
--- NOTE | 2018-08-07 17:25 | CP.PCM.PN ---
Subjective - Date & Time of Evaluation Date of Evaluation: 08/07/18 Time of Evaluation: 10:40 - Subjective Subjective: Afebrile, comfortable, improved left foot pain. Objective - Vital Signs/Intake and Output Vital Signs (last 24 hours): Temp Pulse Resp BP Pulse Ox 97.9 F 74 18 137/85 98 08/06/18 16:00 08/06/18 18:18 08/06/18 16:00 08/06/18 18:18 08/06/18 16:00 Intake and Output: 08/07/18 08/07/18 06:59 18:59 Intake Total 360 Output Total 905 Balance -545 - Medications Medications: Current Medications Acetaminophen (Tylenol 325mg Tab) 650 mg PO Q6H PRN; Protocol PRN Reason: Pain, Mild (1-3) Last Admin: 08/06/18 20:34 Dose: 650 mg Albuterol/Ipratropium (Duoneb 3 Mg/0.5 Mg (3 Ml) Ud) 3 ml IH [id number] PRN; Protocol PRN Reason: Shortness of Breath Ascorbic Acid (Vitamin C 500 Mg Tab) 500 mg PO DAILY [facility]; Protocol Last Admin: 08/06/18 09:57 Dose: 500 mg Aspirin (Ecotrin) 81 mg PO 0800 [facility]; Protocol Last Admin: 08/06/18 07:49 Dose: 81 mg Atorvastatin Calcium (Lipitor) 10 mg PO DIN [facility]; Protocol Last Admin: 08/06/18 18:18 Dose: 10 mg Calcium Carbonate (Oscal) 500 mg PO DAILY [facility]; Protocol Last Admin: 08/06/18 09:57 Dose: 500 mg Cholecalciferol (Vitamin D) 1,000 intlu PO DAILY [facility]; Protocol Last Admin: 08/06/18 09:56 Dose: 1,000 intlu Cyanocobalamin (Vitamin B12 1000 Mcg Tab) 1,000 mcg PO BID [facility]; Protocol Last Admin: 08/06/18 18:22 Dose: 1,000 mcg Furosemide (Lasix) 40 mg PO DAILY [facility]; Protocol Heparin Sodium (Porcine) (Heparin) 5,000 units SC Q8 [facility]; Protocol Last Admin: 08/07/18 05:20 Dose: 5,000 units Aztreonam (Azactam 1 Gm) 100 mls @ 100 mls/hr IVPB 0600,1800 [facility]; Protocol Stop: 08/08/18 06:01 Last Admin: 08/07/18 05:20 Dose: 100 mls/hr Linezolid (Zyvox 600mg/300ml D5w) 600 mg in 300 mls @ 200 mls/hr IVPB 0600,1800 [facility]; Protocol Stop: 08/09/18 18:01 Last Admin: 08/07/18 05:21 Dose: 200 mls/hr Insulin Human Regular (Humulin R Low) 0 units SC ACHS [facility]; Protocol Last Admin: 08/07/18 06:30 Dose: Not Given Isosorbide Mononitrate (Imdur) 60 mg PO 0600 [facility]; Protocol Last Admin: 08/07/18 05:21 Dose: 60 mg Lisinopril (Zestril) 10 mg PO DAILY [facility]; Protocol Last Admin: 08/06/18 09:57 Dose: 10 mg Metolazone (Zaroxolyn) 5 mg PO DAILY [facility]; Protocol Last Admin: 08/06/18 09:56 Dose: 5 mg Metoprolol Tartrate (Lopressor) 100 mg PO BRKDIN [facility]; Protocol Last Admin: 08/06/18 18:18 Dose: 100 mg Multivitamins (Thera Tab) 1 tab PO 0800 [facility]; Protocol Last Admin: 08/06/18 08:26 Dose: 1 tab Oxycodone/Acetaminophen (Percocet 5/325 Mg Tab) 1 tab PO DAILY PRN; Protocol PRN Reason: Pain, moderate (4-7) Stop: 08/09/18 10:01 Last Admin: 08/06/18 13:47 Dose: 1 tab Pantoprazole Sodium (Protonix Ec Tab) 40 mg PO 0600 [facility]; Protocol Last Admin: 08/07/18 05:21 Dose: 40 mg Primidone (Mysoline) 50 mg PO HS [facility]; Protocol Last Admin: 08/06/18 21:13 Dose: 50 mg - Labs Labs: 08/06/18 05:26 08/06/18 05:26 - Constitutional Appears: No Acute Distress, Chronically Ill - Head Exam Head Exam: NORMAL INSPECTION - Respiratory Exam Respiratory Exam: Decreased Breath Sounds - Cardiovascular Exam Cardiovascular Exam: +S1, +S2 - GI/Abdominal Exam GI & Abdominal Exam: Soft. absent: Tenderness - Extremities Exam Additional comments: left foot with dressings in place Assessment and Plan - Assessment and Plan (Free Text) Plan: Assessment left leg cellulitis as well as right sided community-acquired pneumonia S/P left foot 2nd digit skin and skin structure infection CAD S/P CABG abdominal aortic aneurysm S/P repair S/P cholecystectomy S/P pacemaker placement DM S/P left toe amputation Plan continue Zyvox and Azactam day 9 for 7-10 days and will continue to monitor clinically
[2018-08-08] MEDS: Aztreonam 1 Gm in NS 100mL 100 ML IVPB SCH (05:02)
[2018-08-08] MEDS: Pantoprazole 40 mg EC Tab PO SCH (05:03)
[2018-08-08] MEDS: Linezolid 600 mg in D5W 300 ml 600 MG/300 ML BAG IVPB SCH ×2 (05:03→17:50)
[2018-08-08 06:21] LABS: BASO # 0.04 K/mm3 (0.0-2.0); BASO % 0.7 % (0.0-3.0); EOS # 0.3 (0.0-0.7); EOS % 4.4 % (1.5-5.0); GRAN # 4.08 (1.4-6.5); GRAN % 66.9 % (50.0-68.0); HEMOGLOBIN 10.7 g/dL (12.0-16.0); LYMPH # 1.2 (1.2-3.4); LYMPH % 20.4 % (22.0-35.0); MEAN CELL VOLUME 93.1 fl (80.0-105.0); MEAN CORPUSCULAR HEMOGLOBIN 29.6 pg (25.0-35.0); MEAN CORPUSCULAR HGB CONC 31.8 g/dl (31.0-37.0); MEAN PLATELET VOLUME 9.3 fl (7.0-11.0); MONO # 0.5 (0.1-0.6); MONO % 7.6 % (1.0-6.0); RBC 3.62 10^6/uL (3.5-6.1); RED CELL DISTRIBUTION WIDTH 14.2 % (11.5-14.5); WHITE BLOOD COUNT 6.1 10^3/ul (4.5-11.0)
[2018-08-08] MEDS: Insulin Reg-LOW-Coverage SC SCH ×4 (06:51→22:01)
[2018-08-08 07:09] LABS: ALB/GLOB RATIO 1.2 (1.1-1.8); ALBUMIN 3.3 g/dL (3.0-4.8); CALCIUM 7.6 mg/dL (8.4-10.5)
[2018-08-08] MEDS ORDERED: Ergocalciferol 50,000 Intl Units Cap PO SCH (08:15)
[2018-08-08] MEDS: Multivitamin Therapeutic Tab PO SCH (08:16)
[2018-08-08] MEDS: Cholecalciferol 1,000 INTLU TAB PO SCH (09:47)
--- NOTE | 2018-08-08 10:07 | CP.PCM.PN ---
Subjective - Date & Time of Evaluation Date of Evaluation: 08/08/18 Time of Evaluation: 10:04 - Subjective Subjective: Podiatry Progress Note for Dr. Cortés 73 yo female patient, seen and evaluated in TCU for left submetatarsal 1 ulceration; resolved. Patient AAOx3 and in NAD. Patient states she is in no pain today. Denies N/V/F/SOB. Objective - Vital Signs/Intake and Output Vital Signs (last 24 hours): Temp Pulse Resp BP Pulse Ox 97.6 F 78 18 143/97 H 98 08/07/18 16:00 08/08/18 06:51 08/07/18 16:00 08/08/18 09:47 08/07/18 16:00 Intake and Output: 08/08/18 08/08/18 06:59 18:59 Intake Total 240 Output Total 1420 Balance -1180 - Medications Medications: Current Medications Acetaminophen (Tylenol 325mg Tab) 650 mg PO Q6H PRN; Protocol PRN Reason: Pain, Mild (1-3) Last Admin: 08/06/18 20:34 Dose: 650 mg Albuterol/Ipratropium (Duoneb 3 Mg/0.5 Mg (3 Ml) Ud) 3 ml IH [id number] PRN; Protocol PRN Reason: Shortness of Breath Ascorbic Acid (Vitamin C 500 Mg Tab) 500 mg PO DAILY [facility]; Protocol Last Admin: 08/08/18 09:47 Dose: 500 mg Aspirin (Ecotrin) 81 mg PO 0800 [facility]; Protocol Last Admin: 08/08/18 08:15 Dose: 81 mg Atorvastatin Calcium (Lipitor) 10 mg PO DIN [facility]; Protocol Last Admin: 08/07/18 17:17 Dose: 10 mg Calcitriol (Rocaltrol) 0.25 mcg PO MWF [facility] Calcium Carbonate (Oscal) 500 mg PO DAILY [facility]; Protocol Last Admin: 08/08/18 09:46 Dose: 500 mg Cholecalciferol (Vitamin D) 1,000 intlu PO DAILY [facility]; Protocol Last Admin: 08/08/18 09:47 Dose: 1,000 intlu Cyanocobalamin (Vitamin B12 1000 Mcg Tab) 1,000 mcg PO BID [facility]; Protocol Last Admin: 08/07/18 17:18 Dose: 1,000 mcg Ergocalciferol (Drisdol 50,000 Intl Units Cap) 1 cap PO Q7D [facility] Last Admin: 08/08/18 09:45 Dose: 1 cap Furosemide (Lasix) 40 mg PO DAILY [facility]; Protocol Last Admin: 08/08/18 09:46 Dose: 40 mg Heparin Sodium (Porcine) (Heparin) 5,000 units SC Q8 [facility]; Protocol Last Admin: 08/08/18 05:02 Dose: 5,000 units Linezolid (Zyvox 600mg/300ml D5w) 600 mg in 300 mls @ 200 mls/hr IVPB 0600,1800 [facility]; Protocol Stop: 08/09/18 18:01 Last Admin: 08/08/18 05:03 Dose: 200 mls/hr Insulin Human Regular (Humulin R Low) 0 units SC ACHS [facility]; Protocol Last Admin: 08/08/18 06:51 Dose: 1 unit Isosorbide Mononitrate (Imdur) 60 mg PO 0600 [facility]; Protocol Last Admin: 08/08/18 05:03 Dose: 60 mg Lisinopril (Zestril) 10 mg PO DAILY [facility]; Protocol Last Admin: 08/08/18 09:47 Dose: 10 mg Metoprolol Tartrate (Lopressor) 100 mg PO BRKDIN [facility]; Protocol Last Admin: 08/08/18 06:51 Dose: 100 mg Multivitamins (Thera Tab) 1 tab PO 0800 [facility]; Protocol Last Admin: 08/08/18 08:16 Dose: 1 tab Oxycodone/Acetaminophen (Percocet 5/325 Mg Tab) 1 tab PO DAILY PRN; Protocol PRN Reason: Pain, moderate (4-7) Stop: 08/09/18 10:01 Last Admin: 08/07/18 22:22 Dose: 1 tab Pantoprazole Sodium (Protonix Ec Tab) 40 mg PO 0600 [facility]; Protocol Last Admin: 08/08/18 05:03 Dose: 40 mg Primidone (Mysoline) 50 mg PO HS [facility]; Protocol Last Admin: 08/07/18 22:24 Dose: 50 mg - Labs Labs: 08/08/18 05:40 08/08/18 05:40 - Constitutional Appears: Well, Non-toxic, No Acute Distress - Head Exam Head Exam: ATRAUMATIC, NORMOCEPHALIC - Extremities Exam Additional comments: Lower extremity focused exam: Vasc: DP 1/4, PT 1/4 bilaterally, CFT <3 seconds to digits, TG warm to warm, +1 pitting edema noted circumfrentially to legs bilaterally Ortho: Partial left hallux amputation and second digit amputation. Rigid hammertoe contractures to lesser digits on the R foot Neuro: Gross sensation intact, protective sensation absent Derm: Left plantar submetatarsal head 1 ulceration; resolved. Epithelialization appreciated, no drainage, no openings, no probe to bone, no malodor, no tunneling or tracking. No cellulitis or erythema noted. - Neurological Exam Neurological Exam: Alert, Awake, Oriented x3 - Psychiatric Exam Psychiatric exam: Normal Affect, Normal Mood Assessment and Plan - Assessment and Plan (Free Text) Assessment: 73 yo female with left plantar submetatarsal head 1 ulceration; resolved Plan: Patient seen and evaluated at bedside Patient plan discussed in detail with Dr. Cortés WBC 6.1 Optifoam placed on location of submet 1 ulceration to help offload area and prevent breakdown L foot x-ray (07/31); No OM appreciated L foot wound culture (07/30): coagulase neg staphylococcus TCU for continued abx and physical therapy for strengthening F/U in Dr. Cortés's in office upon
--- NOTE | 2018-08-08 12:48 | CP.PCM.PN ---
<Talia Ratliff - Last Filed: 08/08/18 14:14> Subjective - Date & Time of Evaluation Date of Evaluation: 08/08/18 Time of Evaluation: 12:48 - Subjective Subjective: Talia Ratliff DO, PGY-2: Nephrology Progress Note for Dr. Cedeno Patient seen and examined at bedside. Patient reports no dyspnea, chest pain, nausea, vomiting, anorexia, pruritus. No adverse events noted overnight. Objective - Vital Signs/Intake and Output Vital Signs (last 24 hours): Temp Pulse Resp BP Pulse Ox 97.6 F 78 18 143/97 H 98 08/07/18 16:00 08/08/18 06:51 08/07/18 16:00 08/08/18 09:47 08/07/18 16:00 Intake and Output: 08/08/18 08/08/18 06:59 18:59 Intake Total 240 Output Total 1420 Balance -1180 - Medications Medications: Current Medications Acetaminophen (Tylenol 325mg Tab) 650 mg PO Q6H PRN; Protocol PRN Reason: Pain, Mild (1-3) Last Admin: 08/06/18 20:34 Dose: 650 mg Albuterol/Ipratropium (Duoneb 3 Mg/0.5 Mg (3 Ml) Ud) 3 ml IH [id number] PRN; Protocol PRN Reason: Shortness of Breath Ascorbic Acid (Vitamin C 500 Mg Tab) 500 mg PO DAILY [facility]; Protocol Last Admin: 08/08/18 09:47 Dose: 500 mg Aspirin (Ecotrin) 81 mg PO 0800 [facility]; Protocol Last Admin: 08/08/18 08:15 Dose: 81 mg Atorvastatin Calcium (Lipitor) 10 mg PO DIN [facility]; Protocol Last Admin: 08/07/18 17:17 Dose: 10 mg Calcitriol (Rocaltrol) 0.25 mcg PO F [facility] Calcium Carbonate (Oscal) 500 mg PO DAILY [facility]; Protocol Last Admin: 08/08/18 09:46 Dose: 500 mg Cholecalciferol (Vitamin D) 1,000 intlu PO DAILY [facility]; Protocol Last Admin: 08/08/18 09:47 Dose: 1,000 intlu Cyanocobalamin (Vitamin B12 1000 Mcg Tab) 1,000 mcg PO BID [facility]; Protocol Last Admin: 08/07/18 17:18 Dose: 1,000 mcg Ergocalciferol (Drisdol 50,000 Intl Units Cap) 1 cap PO Q7D [facility] Last Admin: 08/08/18 09:45 Dose: 1 cap Furosemide (Lasix) 40 mg PO DAILY [facility]; Protocol Last Admin: 08/08/18 09:46 Dose: 40 mg Furosemide (Lasix) 20 mg PO DIN [facility] Heparin Sodium (Porcine) (Heparin) 5,000 units SC Q8 [facility]; Protocol Last Admin: 08/08/18 05:02 Dose: 5,000 units Linezolid (Zyvox 600mg/300ml D5w) 600 mg in 300 mls @ 200 mls/hr IVPB 0600,1800 [facility]; Protocol Stop: 08/09/18 18:01 Last Admin: 08/08/18 05:03 Dose: 200 mls/hr Insulin Human Regular (Humulin R Low) 0 units SC ACHS [facility]; Protocol Last Admin: 08/08/18 12:23 Dose: 1 unit Isosorbide Mononitrate (Imdur) 60 mg PO 0600 [facility]; Protocol Last Admin: 08/08/18 05:03 Dose: 60 mg Lisinopril (Zestril) 10 mg PO DAILY [facility]; Protocol Last Admin: 08/08/18 09:47 Dose: 10 mg Metoprolol Tartrate (Lopressor) 100 mg PO BRKDIN [facility]; Protocol Last Admin: 08/08/18 06:51 Dose: 100 mg Multivitamins (Thera Tab) 1 tab PO 0800 [facility]; Protocol Last Admin: 08/08/18 08:16 Dose: 1 tab Oxycodone/Acetaminophen (Percocet 5/325 Mg Tab) 1 tab PO DAILY PRN; Protocol PRN Reason: Pain, moderate (4-7) Stop: 08/09/18 10:01 Last Admin: 08/07/18 22:22 Dose: 1 tab Pantoprazole Sodium (Protonix Ec Tab) 40 mg PO 0600 [facility]; Protocol Last Admin: 08/08/18 05:03 Dose: 40 mg Primidone (Mysoline) 50 mg PO HS [facility]; Protocol Last Admin: 08/07/18 22:24 Dose: 50 mg - Labs Labs: 08/08/18 05:40 08/08/18 05:40 - Constitutional Appears: Well, Non-toxic - Head Exam Head Exam: ATRAUMATIC, NORMOCEPHALIC - Eye Exam Eye Exam: EOMI, Normal appearance - ENT Exam ENT Exam: Mucous Membranes Moist - Neck Exam Neck Exam: Normal Inspection - Respiratory Exam Respiratory Exam: Clear to Ausculation Bilateral, NORMAL BREATHING PATTERN. absent: Accessory Muscle Use - Cardiovascular Exam Cardiovascular Exam: RRR, +S1, +S2 - GI/Abdominal Exam GI & Abdominal Exam: Soft, Normal Bowel Sounds - Extremities Exam Extremities Exam: Normal Inspection. absent: Calf Tenderness - Neurological Exam Neurological Exam: Alert, Awake, Oriented x3 - Psychiatric Exam Psychiatric exam: Normal Affect, Normal Mood - Skin Skin Exam: Dry, Intact, Normal Color, Warm Assessment and Plan - Assessment and Plan (Free Text) Assessment: 1) CKD with hyperparathyroidism and electrolyte disturbance - Calcitriol 0.25 mcg MWF (this will also help with elevated phosphate) - 50,000 once weekly of Ergocalciferol - Continues to be hyponatremic 2) CHF - Daily weights - Lasix 40 mg daily - Lasix 20 mg daily added at dinner time We will continue to follow with you Case reviewed and discussed with attending physician, Dr. Cedeno <Derek Cedeno - Last Filed: 08/09/18 08:57> Objective - Vital Signs/Intake and Output Vital Signs (last 24 hours): Temp Pulse Resp BP Pulse Ox 97.9 F 76 20 149/94 H 98 08/08/18 16:00 08/09/18 08:08 08/08/18 16:00 08/09/18 08:08 08/08/18 16:00 Intake and Output: 08/09/18 08/09/18 06:59 18:59 Output Total 750 Balance -750 - Medications Medications: Current Medications Acetaminophen (Tylenol 325mg Tab) 650 mg PO Q6H PRN; Protocol PRN Reason: Pain, Mild (1-3) Last Admin: 08/06/18 20:34 Dose: 650 mg Albuterol/Ipratropium (Duoneb 3 Mg/0.5 Mg (3 Ml) Ud) 3 ml IH [id number] PRN; Protocol PRN Reason: Shortness of Breath Ascorbic Acid (Vitamin C 500 Mg Tab) 500 mg PO DAILY [facility]; Protocol Last Admin: 08/08/18 09:47 Dose: 500 mg Aspirin (Ecotrin) 81 mg PO 0800 [facility]; Protocol Last Admin: 08/09/18 08:07 Dose: 81 mg Atorvastatin Calcium (Lipitor) 10 mg PO DIN [facility]; Protocol Last Admin: 08/08/18 17:49 Dose: 10 mg Calcitriol (Rocaltrol) 0.25 mcg PO MWF [facility] Calcium Carbonate (Oscal) 500 mg PO DAILY [facility]; Protocol Last Admin: 08/08/18 09:46 Dose: 500 mg Cholecalciferol (Vitamin D) 1,000 intlu PO DAILY [facility]; Protocol Last Admin: 08/08/18 09:47 Dose: 1,000 intlu Cyanocobalamin (Vitamin B12 1000 Mcg Tab) 1,000 mcg PO BID [facility]; Protocol Last Admin: 08/08/18 17:50 Dose: 1,000 mcg Ergocalciferol (Drisdol 50,000 Intl Units Cap) 1 cap PO Q7D [facility] Last Admin: 08/08/18 09:45 Dose: 1 cap Furosemide (Lasix) 40 mg PO DAILY [facility]; Protocol Last Admin: 08/08/18 09:46 Dose: 40 mg Furosemide (Lasix) 20 mg PO DIN [facility] Last Admin: 08/08/18 17:13 Dose: 20 mg Heparin Sodium (Porcine) (Heparin) 5,000 units SC Q8 [facility]; Protocol Last Admin: 08/09/18 05:14 Dose: 5,000 units Linezolid (Zyvox 600mg/300ml D5w) 600 mg in 300 mls @ 200 mls/hr IVPB 0600,1800 [facility]; Protocol Stop: 08/09/18 18:01 Last Admin: 08/09/18 05:15 Dose: 200 mls/hr Insulin Human Regular (Humulin R Low) 0 units SC ACHS [facility]; Protocol Last Admin: 08/09/18 06:52 Dose: 1 unit Isosorbide Mononitrate (Imdur) 60 mg PO 0600 [facility]; Protocol Last Admin: 08/09/18 05:14 Dose: 60 mg Lisinopril (Zestril) 10 mg PO DAILY [facility]; Protocol Last Admin: 08/08/18 09:47 Dose: 10 mg Metoprolol Tartrate (Lopressor) 100 mg PO BRKDIN [facility]; Protocol Last Admin: 08/09/18 08:08 Dose: 100 mg Multivitamins (Thera Tab) 1 tab PO 0800 [facility]; Protocol Last Admin: 08/09/18 08:14 Dose: 1 tab Oxycodone/Acetaminophen (Percocet 5/325 Mg Tab) 1 tab PO DAILY PRN; Protocol PRN Reason: Pain, moderate (4-7) Stop: 08/09/18 10:01 Last Admin: 08/09/18 08:14 Dose: 1 tab Pantoprazole Sodium (Protonix Ec Tab) 40 mg PO 0600 [facility]; Protocol Last Admin: 08/09/18 05:15 Dose: 40 mg Primidone (Mysoline) 50 mg PO HS [facility]; Protocol Last Admin: 08/08/18 21:14 Dose: 50 mg - Labs Labs: 08/08/18 05:40 08/08/18 05:40 Attending/Attestation - Attestation I have personally seen and examined this patient.: Yes I have fully participated in the care of the patient.: Yes I have reviewed all pertinent clinical information, including history, physical exam and plan: Yes Notes (Text): Patient seen and examined; I agree with the resident's note as above with the following additions/edits: 73 yo F w/ pmh of htn, dm, CKD IIIB, CHF w/ systolic dysfunction, admitted initially with lethargy, now in TCU; Renal funciton relatively stable; has tenuous volume status given dilated cardiomyopathy but currently euvolemic on exam; weight stable; Mild hyponatremia continues to be an issue; will stop metolazone and keep on bid dosing of lasix (loop diuretics have the effect of limiting free water retention by decreasing medullary concentrating gradient); nevertheless, will still need to maintain 1.5L PO fluid restriction; if still not successful, will need to be on standing dose of tolvaptan; BP currently controlled; -d/c metolazone; continue lasix 40 mg PO in am, add 20 mg in pm; -need daily standing weights; if any increase in weights, need to increase pm lasix dose back to 40 mg; -continue B-blockers and FIDEL inhibitor (can titrate dose upward as tolerated; both for CHF optimization and anti-proteinuric effect);
--- NOTE | 2018-08-08 15:00 | CP.PCM.PN ---
<Tiffany Egan - Last Filed: 08/08/18 14:51> Subjective - Date & Time of Evaluation Date of Evaluation: 08/08/18 Time of Evaluation: 10:40 - Subjective Subjective: PGY-1 Medicine Progress Note for Dr. Gusman's service Patient seen and examined in PT room. Patient offers no acute complaints. Patient denies fevers, chills, sob, n/v, constipation or diarrhea, dysuria, SEGOVIA. Objective - Vital Signs/Intake and Output Vital Signs (last 24 hours): Temp Pulse Resp BP Pulse Ox 97.6 F 78 18 143/97 H 98 08/07/18 16:00 08/08/18 06:51 08/07/18 16:00 08/08/18 09:47 08/07/18 16:00 Intake and Output: 08/08/18 08/08/18 06:59 18:59 Intake Total 240 Output Total 1420 Balance -1180 - Medications Medications: Current Medications Acetaminophen (Tylenol 325mg Tab) 650 mg PO Q6H PRN; Protocol PRN Reason: Pain, Mild (1-3) Last Admin: 08/06/18 20:34 Dose: 650 mg Albuterol/Ipratropium (Duoneb 3 Mg/0.5 Mg (3 Ml) Ud) 3 ml IH [id number] PRN; Protocol PRN Reason: Shortness of Breath Ascorbic Acid (Vitamin C 500 Mg Tab) 500 mg PO DAILY [facility]; Protocol Last Admin: 08/08/18 09:47 Dose: 500 mg Aspirin (Ecotrin) 81 mg PO 0800 [facility]; Protocol Last Admin: 08/08/18 08:15 Dose: 81 mg Atorvastatin Calcium (Lipitor) 10 mg PO DIN [facility]; Protocol Last Admin: 08/07/18 17:17 Dose: 10 mg Calcitriol (Rocaltrol) 0.25 mcg PO F [facility] Calcium Carbonate (Oscal) 500 mg PO DAILY [facility]; Protocol Last Admin: 08/08/18 09:46 Dose: 500 mg Cholecalciferol (Vitamin D) 1,000 intlu PO DAILY [facility]; Protocol Last Admin: 08/08/18 09:47 Dose: 1,000 intlu Cyanocobalamin (Vitamin B12 1000 Mcg Tab) 1,000 mcg PO BID [facility]; Protocol Last Admin: 08/08/18 14:05 Dose: 1,000 mcg Ergocalciferol (Drisdol 50,000 Intl Units Cap) 1 cap PO Q7D [facility] Last Admin: 08/08/18 09:45 Dose: 1 cap Furosemide (Lasix) 40 mg PO DAILY [facility]; Protocol Last Admin: 08/08/18 09:46 Dose: 40 mg Furosemide (Lasix) 20 mg PO DIN [facility] Heparin Sodium (Porcine) (Heparin) 5,000 units SC Q8 [facility]; Protocol Last Admin: 08/08/18 14:04 Dose: 5,000 units Linezolid (Zyvox 600mg/300ml D5w) 600 mg in 300 mls @ 200 mls/hr IVPB 0600,1800 [facility]; Protocol Stop: 08/09/18 18:01 Last Admin: 08/08/18 05:03 Dose: 200 mls/hr Calcium Gluconate 1,000 mg/ (Sodium Chloride) 110 mls @ 110 mls/hr IVPB ONCE ONE Stop: 08/08/18 15:14 Last Admin: 08/08/18 14:32 Dose: 110 mls/hr Insulin Human Regular (Humulin R Low) 0 units SC ACHS [facility]; Protocol Last Admin: 08/08/18 12:23 Dose: 1 unit Isosorbide Mononitrate (Imdur) 60 mg PO 0600 [facility]; Protocol Last Admin: 08/08/18 05:03 Dose: 60 mg Lisinopril (Zestril) 10 mg PO DAILY [facility]; Protocol Last Admin: 08/08/18 09:47 Dose: 10 mg Metoprolol Tartrate (Lopressor) 100 mg PO BRKDIN [facility]; Protocol Last Admin: 08/08/18 06:51 Dose: 100 mg Multivitamins (Thera Tab) 1 tab PO 0800 [facility]; Protocol Last Admin: 08/08/18 08:16 Dose: 1 tab Oxycodone/Acetaminophen (Percocet 5/325 Mg Tab) 1 tab PO DAILY PRN; Protocol PRN Reason: Pain, moderate (4-7) Stop: 08/09/18 10:01 Last Admin: 08/07/18 22:22 Dose: 1 tab Pantoprazole Sodium (Protonix Ec Tab) 40 mg PO 0600 [facility]; Protocol Last Admin: 08/08/18 05:03 Dose: 40 mg Primidone (Mysoline) 50 mg PO HS [facility]; Protocol Last Admin: 10/10/18 22:24 Dose: 50 mg - Labs Labs: 08/08/18 05:40 08/08/18 05:40 - Constitutional Appears: Non-toxic, No Acute Distress - Head Exam Head Exam: NORMAL INSPECTION, NORMOCEPHALIC - Eye Exam Eye Exam: EOMI, Normal appearance. absent: Nystagmus, Scleral icterus - ENT Exam ENT Exam: Mucous Membranes Moist - Respiratory Exam Respiratory Exam: Clear to Ausculation Bilateral, NORMAL BREATHING PATTERN. absent: Rales, Rhonchi, Wheezes - Cardiovascular Exam Cardiovascular Exam: REGULAR RHYTHM, +S1, +S2. absent: Bradycardia, Tachycardia - GI/Abdominal Exam GI & Abdominal Exam: Soft, Normal Bowel Sounds. absent: Distended, Firm, Guarding, Tenderness - Extremities Exam Extremities Exam: Normal Inspection. absent: Calf Tenderness, Pedal Edema - Neurological Exam Neurological Exam: Alert, Awake, Oriented x3 - Psychiatric Exam Psychiatric exam: Normal Affect, Normal Mood - Skin Skin Exam: Intact, Normal Color Assessment and Plan - Assessment and Plan (Free Text) Assessment: Patient is a 73 F, with PMH CAD s/p CABG & AICD, systolic CHF (EF 30s, 2017, RVSP 24) with End-staged dilated cardiomyopathy s/p IV home inotropic therapy, diabetes with L toe amputation, AAA repair, colostomy s/p colectomy due to ischemic colitis, CKD stage 4, and chronic ataxia with DJD, admitted for systolic CHF exacerbation and community acquired pneumonia. Patient transferred to TCU after medical evaluation and treatment for PNA and CHF exacerbation. Patient will receive 10 days of antibiotics for complete PNA treatment. Plan: Hyponatremia Nephro consulted: Dr. Cedeno- recs as below Fluid restrictio; Lasix 40 in AM and 20 at HS Strict I/O and daily weights Community acquired Pneumonia ID consulted- Dr. Trevino- Continue on Azactam 1 gm IV q12h (Day 8) and Zyvox 600 mg IV q12h (Day 7) To complete IV abx on 10-12 Hx of systolic CHF Cardio consult: - Will change to Lasix 40 mg PO bid, Held lisinopril 5 mg qd, spirinolactone 25 mg qd in setting of hyponatremia Echo from 07/31- Dilated LV. Moderate to severe LV hypokinesis. Moderate MR and TR. Dilated LA and RA. Moderate pulmonary hypertension. PPM in RV noted. LVEF: 30% Strict I/O and daily weights, fluid restriction 1200 with diet; Lasix 40mg po bid Continue with Lopressor 100 mg bid, aspirin 81 mg, imdur 60 mg qd, lipitor 10 mg qd, lisinopril 10 mg daily, VALE on CKD stage 4 Nephro Consulted- Dr. Cdeeno- recs updated as below Likely prerenal in the setting of over diuresis Switched Lasix to 40 po daily and 20 po HS, fluid restriction Monitor with repeat CMPs Hypocalcemia noted likely 2/2 diuretic use vs. Vit. D deficiency Dr. Cedeno consulted- recommendations appreciated Calcitriol; Calcium carbonate; Vit D; Ergocalciferol Calcium gluconate IV Left submetatarsal ulceration and stage 1 sacral ulcer ID consulted - Dr. Trevino - recommendations appreciated Podiatry consulted- Submetarsal 1 ulceration cleansed with saline and dressed with Optifoam and DSD after surgical debridement yesterday. Foot Xrays shows no signs of osteomyelitis Sub met 1 hallux wound cultured: coagulase negative staph. Await ID reccs. Continue with Zyvox and Azactam Lower extremity weakness and gait dysfunction Likely 2/2 DJD Podiatry to follow while in house Patient in TCU for rehab DM ISS- low dose ACHS Chronic anemia Hemodynamically stable Continue to monitor with serial CBCs Essential tremor Primidone 50mg po HS PPx GI ppx- Protonix 40 mg qd DVT ppx- heparin 5000 C q8h Dispo: Discharge pending TCU evaluation Medical Management discussed with Dr. Herman PGY-1 Tiffany Egan <Hermila Gusman - Last Filed: 08/08/18 19:15> Objective - Vital Signs/Intake and Output Vital Signs (last 24 hours): Temp Pulse Resp BP Pulse Ox 97.9 F 78 20 133/89 98 08/08/18 16:00 08/08/18 16:00 08/08/18 16:00 08/08/18 17:49 08/08/18 16:00 - Medications Medications: Current Medications Acetaminophen (Tylenol 325mg Tab) 650 mg PO Q6H PRN; Protocol PRN Reason: Pain, Mild (1-3) Last Admin: 08/06/18 20:34 Dose: 650 mg Albuterol/Ipratropium (Duoneb 3 Mg/0.5 Mg (3 Ml) Ud) 3 ml IH [id number] PRN; Protocol PRN Reason: Shortness of Breath Ascorbic Acid (Vitamin C 500 Mg Tab) 500 mg PO DAILY [facility]; Protocol Last Admin: 08/08/18 09:47 Dose: 500 mg Aspirin (Ecotrin) 81 mg PO 0800 [facility]; Protocol Last Admin: 08/08/18 08:15 Dose: 81 mg Atorvastatin Calcium (Lipitor) 10 mg PO DIN [facility]; Protocol Last Admin: 08/08/18 17:49 Dose: 10 mg Calcitriol (Rocaltrol) 0.25 mcg PO MWF [facility] Calcium Carbonate (Oscal) 500 mg PO DAILY [facility]; Protocol Last Admin: 08/08/18 09:46 Dose: 500 mg Cholecalciferol (Vitamin D) 1,000 intlu PO DAILY [facility]; Protocol Last Admin: 08/08/18 09:47 Dose: 1,000 intlu Cyanocobalamin (Vitamin B12 1000 Mcg Tab) 1,000 mcg PO BID [facility]; Protocol Last Admin: 08/08/18 17:50 Dose: 1,000 mcg Ergocalciferol (Drisdol 50,000 Intl Units Cap) 1 cap PO Q7D [facility] Last Admin: 08/08/18 09:45 Dose: 1 cap Furosemide (Lasix) 40 mg PO DAILY [facility]; Protocol Last Admin: 08/08/18 09:46 Dose: 40 mg Furosemide (Lasix) 20 mg PO DIN [facility] Last Admin: 08/08/18 17:13 Dose: 20 mg Heparin Sodium (Porcine) (Heparin) 5,000 units SC Q8 [facility]; Protocol Last Admin: 08/08/18 14:04 Dose: 5,000 units Linezolid (Zyvox 600mg/300ml D5w) 600 mg in 300 mls @ 200 mls/hr IVPB 0600,1800 [facility]; Protocol Stop: 08/09/18 18:01 Last Admin: 08/08/18 17:50 Dose: 200 mls/hr Insulin Human Regular (Humulin R Low) 0 units SC ACHS [facility]; Protocol Last Admin: 08/08/18 17:48 Dose: 1 unit Isosorbide Mononitrate (Imdur) 60 mg PO 0600 [facility]; Protocol Last Admin: 08/08/18 05:03 Dose: 60 mg Lisinopril (Zestril) 10 mg PO DAILY [facility]; Protocol Last Admin: 08/08/18 09:47 Dose: 10 mg Metoprolol Tartrate (Lopressor) 100 mg PO BRKDIN [facility]; Protocol Last Admin: 08/08/18 17:49 Dose: 100 mg Multivitamins (Thera Tab) 1 tab PO 0800 [facility]; Protocol Last Admin: 08/08/18 08:16 Dose: 1 tab Oxycodone/Acetaminophen (Percocet 5/325 Mg Tab) 1 tab PO DAILY [facility]; Protocol PRN Reason: Pain, moderate (4-7) Stop: 08/09/18 10:01 Last Admin: 08/08/18 17:14 Dose: 1 tab Pantoprazole Sodium (Protonix Ec Tab) 40 mg PO 0600 [facility]; Protocol Last Admin: 08/08/18 05:03 Dose: 40 mg Primidone (Mysoline) 50 mg PO HS [facility]; Protocol Last Admin: 08/07/18 22:24 Dose: 50 mg - Labs Labs: 08/08/18 05:40 08/08/18 05:40 Attending/Attestation - Attestation I have personally seen and examined this patient.: Yes I have fully participated in the care of the patient.: Yes I have reviewed all pertinent clinical information, including history, physical exam and plan: Yes Notes (Text): 08/08/18 19:13 73 year old female with past medical history of CHF s/p AICD, CAD s/p CABG, diabetes and CKD who presented with CHF exacerbation and pneumonia. She was transferred to TCU for physical therapy rehabilitation. Continue with PT as tolerated. Nephrology is following for hyponatremia and CKD. Will follow up recommendations. Continue with antibiotics as per ID. She is on lasix; dose adjusted today by nephrology. Hermila Gusman MD Hospitalist.
--- NOTE | 2018-08-08 15:59 | PN ---
DATE: 08/08/2018 CARDIOLOGY FOLLOWUP SUBJECTIVE: The patient is working with physical therapy in the gym. PHYSICAL EXAMINATION: VITAL SIGNS: Blood pressure is 143/97, heart rate is in the 70s. NECK: Negative JVD. LUNGS: Without rales. HEART: Reveals S1, S2. EXTREMITIES: Trace edema. LABORATORY DATA: Hemoglobin is 10.7. Chemistries: BUN and creatinine are 56 and 1.7, glucose is 128. IMPRESSION: 1. End-stage dilated cardiomyopathy. 2. Coronary artery disease. 3. Diabetes mellitus. 4. Renal insufficiency. 5. Recurrent pedal edema. PLAN: Given these findings, the patient is doing as well as can be on physical therapy. She is off inotropes. Vinnie Vidales MD
[2018-08-08] MEDS: Oxycodone/Acetaminophen 5/325 mg Tab PO PRN (17:14)
--- NOTE | 2018-08-08 17:46 | CP.PCM.PN ---
Subjective - Date & Time of Evaluation Date of Evaluation: 08/08/18 Time of Evaluation: 11:40 - Subjective Subjective: No fevers, not in distress. Objective - Vital Signs/Intake and Output Vital Signs (last 24 hours): Temp Pulse Resp BP Pulse Ox 97.6 F 78 18 151/95 H 98 08/07/18 16:00 08/08/18 06:51 08/07/18 16:00 08/08/18 06:51 08/07/18 16:00 Intake and Output: 08/08/18 08/08/18 06:59 18:59 Intake Total 240 Output Total 1420 Balance -1180 - Medications Medications: Current Medications Acetaminophen (Tylenol 325mg Tab) 650 mg PO Q6H PRN; Protocol PRN Reason: Pain, Mild (1-3) Last Admin: 08/06/18 20:34 Dose: 650 mg Albuterol/Ipratropium (Duoneb 3 Mg/0.5 Mg (3 Ml) Ud) 3 ml IH [id number] PRN; Protocol PRN Reason: Shortness of Breath Ascorbic Acid (Vitamin C 500 Mg Tab) 500 mg PO DAILY [facility]; Protocol Last Admin: 08/07/18 09:03 Dose: 500 mg Aspirin (Ecotrin) 81 mg PO 0800 [facility]; Protocol Last Admin: 08/07/18 07:58 Dose: 81 mg Atorvastatin Calcium (Lipitor) 10 mg PO DIN [facility]; Protocol Last Admin: 08/07/18 17:17 Dose: 10 mg Calcitriol (Rocaltrol) 0.25 mcg PO MWF [facility] Calcium Carbonate (Oscal) 500 mg PO DAILY [facility]; Protocol Last Admin: 08/07/18 09:03 Dose: 500 mg Cholecalciferol (Vitamin D) 1,000 intlu PO DAILY [facility]; Protocol Last Admin: 08/07/18 09:04 Dose: 1,000 intlu Cyanocobalamin (Vitamin B12 1000 Mcg Tab) 1,000 mcg PO BID [facility]; Protocol Last Admin: 08/07/18 17:18 Dose: 1,000 mcg Furosemide (Lasix) 40 mg PO DAILY [facility]; Protocol Last Admin: 08/07/18 09:03 Dose: 40 mg Heparin Sodium (Porcine) (Heparin) 5,000 units SC Q8 [facility]; Protocol Last Admin: 08/08/18 05:02 Dose: 5,000 units Linezolid (Zyvox 600mg/300ml D5w) 600 mg in 300 mls @ 200 mls/hr IVPB 0600,1800 [facility]; Protocol Stop: 08/09/18 18:01 Last Admin: 08/08/18 05:03 Dose: 200 mls/hr Insulin Human Regular (Humulin R Low) 0 units SC ACHS [facility]; Protocol Last Admin: 08/08/18 06:51 Dose: 1 unit Isosorbide Mononitrate (Imdur) 60 mg PO 0600 [facility]; Protocol Last Admin: 08/08/18 05:03 Dose: 60 mg Lisinopril (Zestril) 10 mg PO DAILY [facility]; Protocol Last Admin: 08/07/18 09:04 Dose: 10 mg Metolazone (Zaroxolyn) 5 mg PO DAILY [facility]; Protocol Last Admin: 08/07/18 09:05 Dose: 5 mg Metoprolol Tartrate (Lopressor) 100 mg PO BRKDIN [facility]; Protocol Last Admin: 08/08/18 06:51 Dose: 100 mg Multivitamins (Thera Tab) 1 tab PO 0800 [facility]; Protocol Last Admin: 08/07/18 08:00 Dose: 1 tab Oxycodone/Acetaminophen (Percocet 5/325 Mg Tab) 1 tab PO DAILY PRN; Protocol PRN Reason: Pain, moderate (4-7) Stop: 08/09/18 10:01 Last Admin: 08/07/18 22:22 Dose: 1 tab Pantoprazole Sodium (Protonix Ec Tab) 40 mg PO 0600 [facility]; Protocol Last Admin: 08/08/18 05:03 Dose: 40 mg Primidone (Mysoline) 50 mg PO HS [facility]; Protocol Last Admin: 08/07/18 22:24 Dose: 50 mg - Labs Labs: 08/08/18 05:40 08/08/18 05:40 - Constitutional Appears: Chronically Ill - Head Exam Head Exam: NORMAL INSPECTION - Respiratory Exam Respiratory Exam: Decreased Breath Sounds - Cardiovascular Exam Cardiovascular Exam: +S1, +S2 - GI/Abdominal Exam GI & Abdominal Exam: Soft. absent: Tenderness Assessment and Plan - Assessment and Plan (Free Text) Plan: Assessment left leg cellulitis as well as right sided community-acquired pneumonia S/P left foot 2nd digit skin and skin structure infection CAD S/P CABG abdominal aortic aneurysm S/P repair S/P cholecystectomy S/P pacemaker placement DM S/P left toe amputation Plan continue Zyvox and Azactam day 10 for 7-10 days and will continue to monitor clinically - d/c antibiotics after today
[2018-08-09] MEDS: Pantoprazole 40 mg EC Tab PO SCH (05:15)
[2018-08-09] MEDS: Linezolid 600 mg in D5W 300 ml 600 MG/300 ML BAG IVPB SCH ×2 (05:15→18:15)
[2018-08-09] MEDS: Insulin Reg-LOW-Coverage SC SCH ×4 (06:52→23:12)
[2018-08-09] MEDS: Oxycodone/Acetaminophen 5/325 mg Tab PO PRN ×2 (08:14→15:22)
[2018-08-09] MEDS: Multivitamin Therapeutic Tab PO SCH (08:14)
--- NOTE | 2018-08-09 09:05 | CP.PCM.PN ---
<Talia Ratliff - Last Filed: 08/09/18 09:06> Subjective - Date & Time of Evaluation Date of Evaluation: 08/09/18 Time of Evaluation: 09:00 - Subjective Subjective: Talia Ratliff DO, PGY-2: Nephrology Progress Note Patient seen and examined at bedside. Patient denies any chest pain, nausea, vomiting, dyspnea, lower extremity swelling. She reports doing PT two times a day. Nurse reports standing weight is 179 pounds. Objective - Vital Signs/Intake and Output Vital Signs (last 24 hours): Temp Pulse Resp BP Pulse Ox 97.9 F 76 20 149/94 H 98 08/08/18 16:00 08/09/18 08:08 08/08/18 16:00 08/09/18 08:08 08/08/18 16:00 Intake and Output: 08/09/18 08/09/18 06:59 18:59 Output Total 750 Balance -750 - Medications Medications: Current Medications Acetaminophen (Tylenol 325mg Tab) 650 mg PO Q6H PRN; Protocol PRN Reason: Pain, Mild (1-3) Last Admin: 08/06/18 20:34 Dose: 650 mg Albuterol/Ipratropium (Duoneb 3 Mg/0.5 Mg (3 Ml) Ud) 3 ml IH [id number] PRN; Protocol PRN Reason: Shortness of Breath Ascorbic Acid (Vitamin C 500 Mg Tab) 500 mg PO DAILY [facility]; Protocol Last Admin: 08/08/18 09:47 Dose: 500 mg Aspirin (Ecotrin) 81 mg PO 0800 [facility]; Protocol Last Admin: 08/09/18 08:07 Dose: 81 mg Atorvastatin Calcium (Lipitor) 10 mg PO DIN [facility]; Protocol Last Admin: 08/08/18 17:49 Dose: 10 mg Calcitriol (Rocaltrol) 0.25 mcg PO F [facility] Calcium Carbonate (Oscal) 500 mg PO DAILY [facility]; Protocol Last Admin: 08/08/18 09:46 Dose: 500 mg Cholecalciferol (Vitamin D) 1,000 intlu PO DAILY [facility]; Protocol Last Admin: 08/08/18 09:47 Dose: 1,000 intlu Cyanocobalamin (Vitamin B12 1000 Mcg Tab) 1,000 mcg PO BID [facility]; Protocol Last Admin: 08/08/18 17:50 Dose: 1,000 mcg Ergocalciferol (Drisdol 50,000 Intl Units Cap) 1 cap PO Q7D [facility] Last Admin: 08/08/18 09:45 Dose: 1 cap Furosemide (Lasix) 40 mg PO DAILY [facility]; Protocol Last Admin: 08/08/18 09:46 Dose: 40 mg Furosemide (Lasix) 20 mg PO DIN [facility] Last Admin: 08/08/18 17:13 Dose: 20 mg Heparin Sodium (Porcine) (Heparin) 5,000 units SC Q8 [facility]; Protocol Last Admin: 08/09/18 05:14 Dose: 5,000 units Linezolid (Zyvox 600mg/300ml D5w) 600 mg in 300 mls @ 200 mls/hr IVPB 0600,1800 [facility]; Protocol Stop: 08/09/18 18:01 Last Admin: 08/09/18 05:15 Dose: 200 mls/hr Insulin Human Regular (Humulin R Low) 0 units SC ACHS [facility]; Protocol Last Admin: 08/09/18 06:52 Dose: 1 unit Isosorbide Mononitrate (Imdur) 60 mg PO 0600 [facility]; Protocol Last Admin: 08/09/18 05:14 Dose: 60 mg Lisinopril (Zestril) 20 mg PO DAILY [facility]; Protocol Metoprolol Tartrate (Lopressor) 100 mg PO BRKDIN [facility]; Protocol Last Admin: 08/09/18 08:08 Dose: 100 mg Multivitamins (Thera Tab) 1 tab PO 0800 [facility]; Protocol Last Admin: 08/09/18 08:14 Dose: 1 tab Oxycodone/Acetaminophen (Percocet 5/325 Mg Tab) 1 tab PO DAILY PRN; Protocol PRN Reason: Pain, moderate (4-7) Stop: 08/09/18 10:01 Last Admin: 08/09/18 08:14 Dose: 1 tab Pantoprazole Sodium (Protonix Ec Tab) 40 mg PO 0600 [facility]; Protocol Last Admin: 08/09/18 05:15 Dose: 40 mg Primidone (Mysoline) 50 mg PO HS [facility]; Protocol Last Admin: 08/08/18 21:14 Dose: 50 mg - Labs Labs: 08/08/18 05:40 08/08/18 05:40 - Constitutional Appears: Well, Non-toxic - Head Exam Head Exam: ATRAUMATIC, NORMOCEPHALIC - Eye Exam Eye Exam: EOMI, Normal appearance - ENT Exam ENT Exam: Mucous Membranes Moist - Neck Exam Neck Exam: Normal Inspection - Respiratory Exam Respiratory Exam: Clear to Ausculation Bilateral, NORMAL BREATHING PATTERN. absent: Accessory Muscle Use - Cardiovascular Exam Cardiovascular Exam: RRR, +S1, +S2 - Extremities Exam Extremities Exam: Normal Inspection. absent: Calf Tenderness - Neurological Exam Neurological Exam: Alert, Awake, Oriented x3 - Psychiatric Exam Psychiatric exam: Normal Affect, Normal Mood - Skin Skin Exam: Dry, Intact, Normal Color, Warm Assessment and Plan - Assessment and Plan (Free Text) Assessment: 1) CKD with hyperparathyroidism and electrolyte disturbance - Calcitriol 0.25 mcg MWF (this will also help with elevated phosphate) - 50,000 once weekly of Ergocalciferol 2) Hyponatremia - Considering standing dose of Tolvaptan 3) CHF - Daily weights - Lasix 40 mg in AM and 20 mg in PM - If weight goes up will need to re-institute home dose of Lasix of 40 mg BID. We will continue to follow with you Case reviewed and discussed with attending physician, Dr. Cedeno <Derek eCdeno - Last Filed: 08/10/18 09:35> Objective - Vital Signs/Intake and Output Vital Signs (last 24 hours): Temp Pulse Resp BP Pulse Ox 98 F 77 20 148/72 98 08/09/18 16:00 08/09/18 16:00 08/09/18 16:00 08/09/18 18:25 08/09/18 16:00 - Medications Medications: Current Medications Acetaminophen (Tylenol 325mg Tab) 650 mg PO Q6H PRN; Protocol PRN Reason: Pain, Mild (1-3) Last Admin: 08/10/18 05:19 Dose: 650 mg Albuterol/Ipratropium (Duoneb 3 Mg/0.5 Mg (3 Ml) Ud) 3 ml IH [id number] PRN; Protocol PRN Reason: Shortness of Breath Ascorbic Acid (Vitamin C 500 Mg Tab) 500 mg PO DAILY [facility]; Protocol Last Admin: 08/09/18 10:08 Dose: 500 mg Aspirin (Ecotrin) 81 mg PO 0800 [facility]; Protocol Last Admin: 08/09/18 08:07 Dose: 81 mg Atorvastatin Calcium (Lipitor) 10 mg PO DIN [facility]; Protocol Last Admin: 08/09/18 18:14 Dose: 10 mg Calcitriol (Rocaltrol) 0.25 mcg PO MWF [facility] Last Admin: 08/09/18 10:07 Dose: 0.25 mcg Calcium Carbonate (Oscal) 500 mg PO DAILY [facility]; Protocol Last Admin: 08/09/18 10:07 Dose: 500 mg Cholecalciferol (Vitamin D) 1,000 intlu PO DAILY [facility]; Protocol Last Admin: 08/09/18 10:08 Dose: 1,000 intlu Cyanocobalamin (Vitamin B12 1000 Mcg Tab) 1,000 mcg PO BID [facility]; Protocol Last Admin: 08/09/18 18:15 Dose: 1,000 mcg Ergocalciferol (Drisdol 50,000 Intl Units Cap) 1 cap PO Q7D [facility] Last Admin: 08/08/18 09:45 Dose: 1 cap Furosemide (Lasix) 40 mg PO DAILY [facility]; Protocol Last Admin: 08/09/18 10:07 Dose: 40 mg Furosemide (Lasix) 20 mg PO DIN [facility] Last Admin: 08/09/18 18:25 Dose: 20 mg Heparin Sodium (Porcine) (Heparin) 5,000 units SC Q8 [facility]; Protocol Last Admin: 08/10/18 05:31 Dose: 5,000 units Insulin Human Regular (Humulin R Low) 0 units SC ACHS [facility]; Protocol Last Admin: 08/10/18 07:31 Dose: Not Given Isosorbide Mononitrate (Imdur) 60 mg PO 0600 [facility]; Protocol Last Admin: 08/10/18 05:19 Dose: 60 mg Lisinopril (Zestril) 20 mg PO DAILY [facility]; Protocol Last Admin: 08/09/18 10:08 Dose: 20 mg Metoprolol Tartrate (Lopressor) 100 mg PO BRKDIN [facility]; Protocol Last Admin: 08/09/18 18:15 Dose: 100 mg Multivitamins (Thera Tab) 1 tab PO 0800 [facility]; Protocol Last Admin: 08/09/18 08:14 Dose: 1 tab Oxycodone/Acetaminophen (Percocet 5/325 Mg Tab) 1 tab PO Q6H PRN PRN Reason: Pain, moderate (4-7) Stop: 08/12/18 14:36 Last Admin: 08/10/18 01:57 Dose: 1 tab Pantoprazole Sodium (Protonix Ec Tab) 40 mg PO 0600 [facility]; Protocol Last Admin: 08/10/18 05:19 Dose: 40 mg Primidone (Mysoline) 50 mg PO HS [facility]; Protocol Last Admin: 08/09/18 21:15 Dose: 50 mg - Labs Labs: 08/10/18 08:10 08/10/18 08:10 Attending/Attestation - Attestation I have personally seen and examined this patient.: Yes I have fully participated in the care of the patient.: Yes I have reviewed all pertinent clinical information, including history, physical exam and plan: Yes Notes (Text): Patient seen and examined; I agree with the resident's note as above with the following additions/edits: 73 yo F w/ pmh of htn, dm, CKD IIIB, CHF w/ systolic dysfunction, admitted initially with lethargy, now in TCU; Appears euvolemic on exam; unfortunately, weights are erratic; will continue to obtain daily standing weights given tenuous volume status with CHF and advanced CKD; PM lasix 20 dose added yesterday after holding metolazone due to hyponatremia; reports increased urination overnight; Hypertensive CKD, BP elevated, lisinopril dose just increased; -Will monitor labs periodically; if hyponatremia persists, may need to keep on tolvaptan; -Continue lasix PO 40 mg in am, 20 mg in pm; -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
[2018-08-09] MEDS: Cholecalciferol 1,000 INTLU TAB PO SCH (10:08)
--- NOTE | 2018-08-09 10:17 | CP.PCM.PN ---
Subjective - Date & Time of Evaluation Date of Evaluation: 08/09/18 Time of Evaluation: 10:12 - Subjective Subjective: Podiatry Progress Note for Dr. Cortés 73 yo female patient, seen and evaluated in TCU for continued care of left submetatarsal 1 ulceration; resolved. Patient states that she just completed physical therapy this morning and will most likely be d/c today after she completes her antibiotics. Denies N/V/F. Objective - Vital Signs/Intake and Output Vital Signs (last 24 hours): Temp Pulse Resp BP Pulse Ox 97.9 F 76 20 143/92 H 98 08/08/18 16:00 08/09/18 08:08 08/08/18 16:00 08/09/18 10:08 08/08/18 16:00 Intake and Output: 08/09/18 08/09/18 06:59 18:59 Output Total 750 Balance -750 - Medications Medications: Current Medications Acetaminophen (Tylenol 325mg Tab) 650 mg PO Q6H PRN; Protocol PRN Reason: Pain, Mild (1-3) Last Admin: 08/06/18 20:34 Dose: 650 mg Albuterol/Ipratropium (Duoneb 3 Mg/0.5 Mg (3 Ml) Ud) 3 ml IH [id number] PRN; Protocol PRN Reason: Shortness of Breath Ascorbic Acid (Vitamin C 500 Mg Tab) 500 mg PO DAILY [facility]; Protocol Last Admin: 08/09/18 10:08 Dose: 500 mg Aspirin (Ecotrin) 81 mg PO 0800 [facility]; Protocol Last Admin: 08/09/18 08:07 Dose: 81 mg Atorvastatin Calcium (Lipitor) 10 mg PO DIN [facility]; Protocol Last Admin: 08/08/18 17:49 Dose: 10 mg Calcitriol (Rocaltrol) 0.25 mcg PO MWF [facility] Last Admin: 08/09/18 10:07 Dose: 0.25 mcg Calcium Carbonate (Oscal) 500 mg PO DAILY [facility]; Protocol Last Admin: 08/09/18 10:07 Dose: 500 mg Cholecalciferol (Vitamin D) 1,000 intlu PO DAILY [facility]; Protocol Last Admin: 08/09/18 10:08 Dose: 1,000 intlu Cyanocobalamin (Vitamin B12 1000 Mcg Tab) 1,000 mcg PO BID [facility]; Protocol Last Admin: 08/09/18 10:08 Dose: 1,000 mcg Ergocalciferol (Drisdol 50,000 Intl Units Cap) 1 cap PO Q7D [facility] Last Admin: 08/08/18 09:45 Dose: 1 cap Furosemide (Lasix) 40 mg PO DAILY [facility]; Protocol Last Admin: 08/09/18 10:07 Dose: 40 mg Furosemide (Lasix) 20 mg PO DIN [facility] Last Admin: 08/08/18 17:13 Dose: 20 mg Heparin Sodium (Porcine) (Heparin) 5,000 units SC Q8 [facility]; Protocol Last Admin: 08/09/18 05:14 Dose: 5,000 units Linezolid (Zyvox 600mg/300ml D5w) 600 mg in 300 mls @ 200 mls/hr IVPB 0600,1800 [facility]; Protocol Stop: 08/09/18 18:01 Last Admin: 08/09/18 05:15 Dose: 200 mls/hr Insulin Human Regular (Humulin R Low) 0 units SC ACHS [facility]; Protocol Last Admin: 08/09/18 06:52 Dose: 1 unit Isosorbide Mononitrate (Imdur) 60 mg PO 0600 [facility]; Protocol Last Admin: 08/09/18 05:14 Dose: 60 mg Lisinopril (Zestril) 20 mg PO DAILY [facility]; Protocol Last Admin: 08/09/18 10:08 Dose: 20 mg Metoprolol Tartrate (Lopressor) 100 mg PO BRKDIN [facility]; Protocol Last Admin: 08/09/18 08:08 Dose: 100 mg Multivitamins (Thera Tab) 1 tab PO 0800 [facility]; Protocol Last Admin: 08/09/18 08:14 Dose: 1 tab Pantoprazole Sodium (Protonix Ec Tab) 40 mg PO 0600 [facility]; Protocol Last Admin: 08/09/18 05:15 Dose: 40 mg Primidone (Mysoline) 50 mg PO HS [facility]; Protocol Last Admin: 08/08/18 21:14 Dose: 50 mg - Labs Labs: 08/08/18 05:40 08/08/18 05:40 - Constitutional Appears: Well, Non-toxic, No Acute Distress - Head Exam Head Exam: ATRAUMATIC, NORMOCEPHALIC - Extremities Exam Additional comments: Lower extremity focused exam: Vasc: DP 1/4, PT 1/4 bilaterally, CFT <3 seconds to digits, TG warm to warm, edema resolving Ortho: Partial left hallux amputation and second digit amputation. Rigid hammertoe contractures to lesser digits on the R foot Neuro: Gross sensation intact, protective sensation absent Derm: Left plantar submetatarsal head 1 ulceration; resolved. Epithelialization appreciated, no drainage, no openings, no probe to bone, no malodor, no tunneling or tracking. No cellulitis or erythema noted. - Neurological Exam Neurological Exam: Alert, Awake, Oriented x3 - Psychiatric Exam Psychiatric exam: Normal Affect, Normal Mood Assessment and Plan - Assessment and Plan (Free Text) Assessment: 73 yo female with left plantar submetatarsal head 1 ulceration; resolved Plan: Patient seen and evaluated at bedside, patient plan discussed with Dr. Cortés Patient will most likely be d/c today after receiving dose of antibiotics. Optifoam placed on location of submet 1 ulceration to help offload area and prevent breakdown L foot x-ray (07/31); No OM appreciated L foot wound culture (07/30): coagulase neg staphylococcus F/U in Dr. Cortés's in office upon discharge
--- NOTE | 2018-08-09 15:13 | PN ---
DATE: 08/09/2018 CARDIOLOGY FOLLOWUP SUBJECTIVE: The patient is without dyspnea. PHYSICAL EXAMINATION: VITAL SIGNS: Stable. NECK: Negative JVD. LUNGS: Without rales. HEART: Reveals S1, S2. EXTREMITIES: Without edema. LABORATORY DATA: Reviewed. IMPRESSION: 1. End-stage dilated cardiomyopathy. 2. Coronary artery disease. 3. History of ventricular tachycardia. 4. Congestive heart failure is resolved. 5. Weakness. PLAN: Given these findings, we will continue the patient on physical therapy. She is doing well in TCU. Vinnie Vidales MD
--- NOTE | 2018-08-09 23:55 | CP.PCM.PN ---
Subjective - Date & Time of Evaluation Date of Evaluation: 08/09/18 Time of Evaluation: 13:30 - Subjective Subjective: No fevers, not in distress. Objective - Vital Signs/Intake and Output Vital Signs (last 24 hours): Temp Pulse Resp BP Pulse Ox 98 F 77 20 148/72 98 08/09/18 16:00 08/09/18 16:00 08/09/18 16:00 08/09/18 18:25 08/09/18 16:00 - Medications Medications: Current Medications Acetaminophen (Tylenol 325mg Tab) 650 mg PO Q6H PRN; Protocol PRN Reason: Pain, Mild (1-3) Last Admin: 08/06/18 20:34 Dose: 650 mg Albuterol/Ipratropium (Duoneb 3 Mg/0.5 Mg (3 Ml) Ud) 3 ml IH [id number] PRN; Protocol PRN Reason: Shortness of Breath Ascorbic Acid (Vitamin C 500 Mg Tab) 500 mg PO DAILY [facility]; Protocol Last Admin: 08/09/18 10:08 Dose: 500 mg Aspirin (Ecotrin) 81 mg PO 0800 [facility]; Protocol Last Admin: 08/09/18 08:07 Dose: 81 mg Atorvastatin Calcium (Lipitor) 10 mg PO DIN [facility]; Protocol Last Admin: 08/09/18 18:14 Dose: 10 mg Calcitriol (Rocaltrol) 0.25 mcg PO MWF [facility] Last Admin: 08/09/18 10:07 Dose: 0.25 mcg Calcium Carbonate (Oscal) 500 mg PO DAILY [facility]; Protocol Last Admin: 08/09/18 10:07 Dose: 500 mg Cholecalciferol (Vitamin D) 1,000 intlu PO DAILY [facility]; Protocol Last Admin: 08/09/18 10:08 Dose: 1,000 intlu Cyanocobalamin (Vitamin B12 1000 Mcg Tab) 1,000 mcg PO BID [facility]; Protocol Last Admin: 08/09/18 18:15 Dose: 1,000 mcg Ergocalciferol (Drisdol 50,000 Intl Units Cap) 1 cap PO Q7D [facility] Last Admin: 08/08/18 09:45 Dose: 1 cap Furosemide (Lasix) 40 mg PO DAILY [facility]; Protocol Last Admin: 08/09/18 10:07 Dose: 40 mg Furosemide (Lasix) 20 mg PO DIN [facility] Last Admin: 08/09/18 18:25 Dose: 20 mg Heparin Sodium (Porcine) (Heparin) 5,000 units SC Q8 [facility]; Protocol Last Admin: 08/09/18 21:15 Dose: 5,000 units Insulin Human Regular (Humulin R Low) 0 units SC ACHS [facility]; Protocol Last Admin: 08/09/18 23:12 Dose: Not Given Isosorbide Mononitrate (Imdur) 60 mg PO 0600 [facility]; Protocol Last Admin: 08/09/18 05:14 Dose: 60 mg Lisinopril (Zestril) 20 mg PO DAILY [facility]; Protocol Last Admin: 08/09/18 10:08 Dose: 20 mg Metoprolol Tartrate (Lopressor) 100 mg PO BRKDIN [facility]; Protocol Last Admin: 08/09/18 18:15 Dose: 100 mg Multivitamins (Thera Tab) 1 tab PO 0800 [facility]; Protocol Last Admin: 08/09/18 08:14 Dose: 1 tab Oxycodone/Acetaminophen (Percocet 5/325 Mg Tab) 1 tab PO Q6H PRN PRN Reason: Pain, moderate (4-7) Stop: 08/12/18 14:36 Last Admin: 08/09/18 15:22 Dose: 1 tab Pantoprazole Sodium (Protonix Ec Tab) 40 mg PO 0600 [facility]; Protocol Last Admin: 08/09/18 05:15 Dose: 40 mg Primidone (Mysoline) 50 mg PO HS [facility]; Protocol Last Admin: 08/09/18 21:15 Dose: 50 mg - Labs Labs: 08/08/18 05:40 08/08/18 05:40 - Constitutional Appears: No Acute Distress, Chronically Ill - Head Exam Head Exam: NORMAL INSPECTION - Respiratory Exam Respiratory Exam: Decreased Breath Sounds - Cardiovascular Exam Cardiovascular Exam: +S1, +S2 - GI/Abdominal Exam GI & Abdominal Exam: Soft, Tenderness Assessment and Plan - Assessment and Plan (Free Text) Plan: Assessment S/P left leg cellulitis as well as right sided community-acquired pneumonia S/P left foot 2nd digit skin and skin structure infection CAD S/P CABG abdominal aortic aneurysm S/P repair S/P cholecystectomy S/P pacemaker placement DM S/P left toe amputation Plan continue to monitor off antibiotics since she is at risk for nosocomial infections
[2018-08-10] MEDS: Oxycodone/Acetaminophen 5/325 mg Tab PO PRN ×3 (01:57→20:03)
[2018-08-10] MEDS ORDERED: Nystatin 100,000 Units/gm Topical Pow(15 gm) TOP STA (02:13)
[2018-08-10] MEDS: Pantoprazole 40 mg EC Tab PO SCH (05:19)
[2018-08-10] MEDS: Insulin Reg-LOW-Coverage SC SCH ×4 (07:31→22:27)
[2018-08-10 08:28] LABS: BASO # 0.02 K/mm3 (0.0-2.0); BASO % 0.3 % (0.0-3.0); EOS # 0.3 (0.0-0.7); EOS % 3.4 % (1.5-5.0); GRAN # 5.05 (1.4-6.5); GRAN % 69.4 % (50.0-68.0); HEMOGLOBIN 11.8 g/dL (12.0-16.0); LYMPH # 1.5 (1.2-3.4); LYMPH % 20.2 % (22.0-35.0); MEAN CORPUSCULAR HEMOGLOBIN 29.6 pg (25.0-35.0); MEAN CORPUSCULAR HGB CONC 32.2 g/dl (31.0-37.0); MONO # 0.5 (0.1-0.6); MONO % 6.7 % (1.0-6.0); RBC 3.98 10^6/uL (3.5-6.1); RED CELL DISTRIBUTION WIDTH 14.2 % (11.5-14.5); WHITE BLOOD COUNT 7.3 10^3/ul (4.5-11.0)
[2018-08-10 08:55] LABS: ALB/GLOB RATIO 1.2 (1.1-1.8); ALBUMIN 3.4 g/dL (3.0-4.8); CALCIUM 8.9 mg/dL (8.4-10.5)
--- NOTE | 2018-08-10 08:55 | CP.PCM.PN ---
Subjective - Date & Time of Evaluation Date of Evaluation: 08/10/18 Time of Evaluation: 08:53 - Subjective Subjective: Podiatry Progress Note for Dr. Cortés 73 yo female patient, seen and evaluated in TCU for continued care of left submetatarsal 1 ulceration; resolved. patient states she was told she will be d/c after antiobiotics are completed. Denies N/V/F. Objective - Vital Signs/Intake and Output Vital Signs (last 24 hours): Temp Pulse Resp BP Pulse Ox 98 F 77 20 148/72 98 08/09/18 16:00 08/09/18 16:00 08/09/18 16:00 08/09/18 18:25 08/09/18 16:00 - Medications Medications: Current Medications Acetaminophen (Tylenol 325mg Tab) 650 mg PO Q6H PRN; Protocol PRN Reason: Pain, Mild (1-3) Last Admin: 08/10/18 05:19 Dose: 650 mg Albuterol/Ipratropium (Duoneb 3 Mg/0.5 Mg (3 Ml) Ud) 3 ml IH [id number] PRN; Protocol PRN Reason: Shortness of Breath Ascorbic Acid (Vitamin C 500 Mg Tab) 500 mg PO DAILY [facility]; Protocol Last Admin: 08/09/18 10:08 Dose: 500 mg Aspirin (Ecotrin) 81 mg PO 0800 [facility]; Protocol Last Admin: 08/09/18 08:07 Dose: 81 mg Atorvastatin Calcium (Lipitor) 10 mg PO DIN [facility]; Protocol Last Admin: 08/09/18 18:14 Dose: 10 mg Calcitriol (Rocaltrol) 0.25 mcg PO MWF [facility] Last Admin: 08/09/18 10:07 Dose: 0.25 mcg Calcium Carbonate (Oscal) 500 mg PO DAILY [facility]; Protocol Last Admin: 08/09/18 10:07 Dose: 500 mg Cholecalciferol (Vitamin D) 1,000 intlu PO DAILY [facility]; Protocol Last Admin: 08/09/18 10:08 Dose: 1,000 intlu Cyanocobalamin (Vitamin B12 1000 Mcg Tab) 1,000 mcg PO BID [facility]; Protocol Last Admin: 08/09/18 18:15 Dose: 1,000 mcg Ergocalciferol (Drisdol 50,000 Intl Units Cap) 1 cap PO Q7D [facility] Last Admin: 08/08/18 09:45 Dose: 1 cap Furosemide (Lasix) 40 mg PO DAILY [facility]; Protocol Last Admin: 08/09/18 10:07 Dose: 40 mg Furosemide (Lasix) 20 mg PO DIN [facility] Last Admin: 08/09/18 18:25 Dose: 20 mg Heparin Sodium (Porcine) (Heparin) 5,000 units SC Q8 [facility]; Protocol Last Admin: 08/10/18 05:31 Dose: 5,000 units Insulin Human Regular (Humulin R Low) 0 units SC ACHS [facility]; Protocol Last Admin: 08/10/18 07:31 Dose: Not Given Isosorbide Mononitrate (Imdur) 60 mg PO 0600 [facility]; Protocol Last Admin: 08/10/18 05:19 Dose: 60 mg Lisinopril (Zestril) 20 mg PO DAILY [facility]; Protocol Last Admin: 08/09/18 10:08 Dose: 20 mg Metoprolol Tartrate (Lopressor) 100 mg PO BRKDIN [facility]; Protocol Last Admin: 08/09/18 18:15 Dose: 100 mg Multivitamins (Thera Tab) 1 tab PO 0800 [facility]; Protocol Last Admin: 08/09/18 08:14 Dose: 1 tab Oxycodone/Acetaminophen (Percocet 5/325 Mg Tab) 1 tab PO Q6H PRN PRN Reason: Pain, moderate (4-7) Stop: 08/12/18 14:36 Last Admin: 08/10/18 01:57 Dose: 1 tab Pantoprazole Sodium (Protonix Ec Tab) 40 mg PO 0600 [facility]; Protocol Last Admin: 08/10/18 05:19 Dose: 40 mg Primidone (Mysoline) 50 mg PO HS [facility]; Protocol Last Admin: 08/09/18 21:15 Dose: 50 mg - Labs Labs: 08/10/18 08:10 08/08/18 05:40 - Constitutional Appears: Well, Non-toxic, No Acute Distress - Head Exam Head Exam: ATRAUMATIC, NORMOCEPHALIC - Extremities Exam Additional comments: Lower extremity focused exam: Vasc: DP 1/4, PT 1/4 bilaterally, CFT <3 seconds to digits, TG warm to warm, edema resolving Ortho: Partial left hallux amputation and second digit amputation. Rigid hammertoe contractures to lesser digits on the R foot Neuro: Gross sensation intact, protective sensation absent Derm: Left plantar submetatarsal head 1 ulceration; resolved. Epithelialization appreciated, no drainage, no openings, no probe to bone, no malodor, no tunneling or tracking. No cellulitis or erythema noted. - Neurological Exam Neurological Exam: Alert, Oriented x3 - Psychiatric Exam Psychiatric exam: Normal Affect, Normal Mood - Skin Skin Exam: Normal Color Assessment and Plan - Assessment and Plan (Free Text) Assessment: 73 yo female with left plantar submetatarsal head 1 ulceration; resolving Plan: Patient seen and evaluated at bedside, patient plan discussed with Dr. Cortés Patient will most likely be d/c today after receiving dose of antibiotics. Optifoam placed on location of submet 1 ulceration to help offload area and prevent breakdown L foot x-ray (07/31); No OM appreciated L foot wound culture (07/30): coagulase neg staphylococcus F/U in Dr. Cortés's in office upon discharge
[2018-08-10] MEDS: Multivitamin Therapeutic Tab PO SCH (09:41)
[2018-08-10] MEDS: Cholecalciferol 1,000 INTLU TAB PO SCH (09:42)
[2018-08-10 10:32] VITALS: RESP 18
[2018-08-10] MEDS ORDERED: Tolvaptan 15 MG TAB PO ONE (12:10)
--- NOTE | 2018-08-10 14:32 | CP.PCM.PN ---
<Tyshawn Price - Last Filed: 08/10/18 21:00> Subjective - Date & Time of Evaluation Date of Evaluation: 08/10/18 Time of Evaluation: 14:31 - Subjective Subjective: Pt seen and examined this morning. Pt reports perineal itching which has been relieved by nystatin powder. Objective - Vital Signs/Intake and Output Vital Signs (last 24 hours): Temp Pulse Resp BP Pulse Ox 97.1 F L 84 18 150/92 H 97 08/10/18 10:00 08/10/18 10:00 08/10/18 10:00 08/10/18 10:00 08/10/18 10:00 - Medications Medications: Current Medications Acetaminophen (Tylenol 325mg Tab) 650 mg PO Q6H PRN; Protocol PRN Reason: Pain, Mild (1-3) Last Admin: 08/10/18 05:19 Dose: 650 mg Albuterol/Ipratropium (Duoneb 3 Mg/0.5 Mg (3 Ml) Ud) 3 ml IH [id number] PRN; Protocol PRN Reason: Shortness of Breath Ascorbic Acid (Vitamin C 500 Mg Tab) 500 mg PO DAILY [facility]; Protocol Last Admin: 08/10/18 09:43 Dose: 500 mg Aspirin (Ecotrin) 81 mg PO 0800 [facility]; Protocol Last Admin: 08/10/18 09:41 Dose: 81 mg Atorvastatin Calcium (Lipitor) 10 mg PO DIN [facility]; Protocol Last Admin: 08/09/18 18:14 Dose: 10 mg Calcitriol (Rocaltrol) 0.25 mcg PO MWF [facility] Last Admin: 08/09/18 10:07 Dose: 0.25 mcg Calcium Carbonate (Oscal) 500 mg PO DAILY [facility]; Protocol Last Admin: 08/10/18 09:42 Dose: 500 mg Cholecalciferol (Vitamin D) 1,000 intlu PO DAILY [facility]; Protocol Last Admin: 08/10/18 09:42 Dose: 1,000 intlu Cyanocobalamin (Vitamin B12 1000 Mcg Tab) 1,000 mcg PO BID [facility]; Protocol Last Admin: 08/10/18 09:44 Dose: 1,000 mcg Ergocalciferol (Drisdol 50,000 Intl Units Cap) 1 cap PO Q7D [facility] Last Admin: 08/08/18 09:45 Dose: 1 cap Furosemide (Lasix) 40 mg PO DAILY [facility]; Protocol Last Admin: 08/10/18 09:41 Dose: 40 mg Furosemide (Lasix) 20 mg PO DIN [facility] Last Admin: 08/09/18 18:25 Dose: 20 mg Heparin Sodium (Porcine) (Heparin) 5,000 units SC Q8 [facility]; Protocol Last Admin: 08/10/18 14:20 Dose: 5,000 units Insulin Human Regular (Humulin R Low) 0 units SC ACHS [facility]; Protocol Last Admin: 08/10/18 11:50 Dose: 2 unit Isosorbide Mononitrate (Imdur) 60 mg PO 0600 [facility]; Protocol Last Admin: 08/10/18 05:19 Dose: 60 mg Lisinopril (Zestril) 40 mg PO DAILY [facility]; Protocol Metoprolol Tartrate (Lopressor) 100 mg PO BRKDIN [facility]; Protocol Last Admin: 08/10/18 09:40 Dose: 100 mg Multivitamins (Thera Tab) 1 tab PO 0800 [facility]; Protocol Last Admin: 08/10/18 09:41 Dose: 1 tab Oxycodone/Acetaminophen (Percocet 5/325 Mg Tab) 1 tab PO Q6H PRN PRN Reason: Pain, moderate (4-7) Stop: 08/12/18 14:36 Last Admin: 08/10/18 11:49 Dose: 1 tab Pantoprazole Sodium (Protonix Ec Tab) 40 mg PO 0600 [facility]; Protocol Last Admin: 08/10/18 05:19 Dose: 40 mg Primidone (Mysoline) 50 mg PO HS [facility]; Protocol Last Admin: 08/09/18 21:15 Dose: 50 mg - Labs Labs: 08/10/18 08:10 08/10/18 08:10 - Constitutional Appears: Non-toxic, No Acute Distress - Head Exam Head Exam: ATRAUMATIC, NORMAL INSPECTION, NORMOCEPHALIC - Eye Exam Eye Exam: EOMI - ENT Exam ENT Exam: Mucous Membranes Moist, Normal Exam - Neck Exam Neck Exam: Full ROM - Respiratory Exam Respiratory Exam: Clear to Ausculation Bilateral, NORMAL BREATHING PATTERN. absent: Accessory Muscle Use, Wheezes, Respiratory Distress - Cardiovascular Exam Cardiovascular Exam: RRR, +S1, +S2. absent: Diastolic murmur, Murmur - GI/Abdominal Exam GI & Abdominal Exam: Soft, Normal Bowel Sounds. absent: Rigid, Tenderness Additional comments: ileostomy in place, umbilical hernia - Extremities Exam Extremities Exam: Full ROM, Normal Inspection. absent: Calf Tenderness, Pedal Edema - Neurological Exam Neurological Exam: Alert, Awake, Oriented x3 - Psychiatric Exam Psychiatric exam: Normal Affect, Normal Mood - Skin Skin Exam: Dry, Intact, Warm Assessment and Plan - Assessment and Plan (Free Text) Assessment: Patient is a 73 F, with PMH CAD s/p CABG & AICD, systolic CHF (EF 30s, 2017, RVSP 24) with End-staged dilated cardiomyopathy s/p IV home inotropic therapy, diabetes with L toe amputation, AAA repair, colostomy s/p colectomy due to ischemic colitis, CKD stage 4, and chronic ataxia with DJD, admitted for systolic CHF exacerbation and community acquired pneumonia. Patient transferred to TCU after medical evaluation and treatment for PNA and CHF exacerbation. Patient will receive 10 days of antibiotics for complete PNA treatment. Plan: Hyponatremia - Na 129 - Nephro, Dr. Cedeno following - Fluid restriction; Lasix po 40 daily and 20 bedtime - Daily weights Community acquired Pneumonia - ID consulted, Dr. Trevino - Pt treated with Azactam and Zyvox, IV antibiotic treatment completed Hx of systolic CHF - Cardio consulted, - Pt on PO Lasix 40 daily and 20 bedtime - Echo from 07/31: Dilated LV. Moderate to severe LV hypokinesis. Moderate MR and TR. Dilated LA and RA. Moderate pulmonary hypertension. PPM in RV noted. LVEF: 30% - Daily weights, fluid restriction 1200 with diet - Continue Lopressor 100 mg bid, aspirin 81 mg, imdur 60 mg qd, lipitor 10 mg qd, lisinopril 40 mg daily, VALE on CKD stage 4 - Cr 2.0, BUN 58, GFR 30 - On PO Lasix - fluid restriction, continue to monitor - Nephro Consulted Hypocalcemia - Ca 8.9, corrected for albumin 9.38 improved from 08/08/18 - Continue Calcitriol; Calcium carbonate; Vit D; Ergocalciferol - Nephzuleika, Dr. Cedeno following Left submetatarsal ulceration and stage 1 sacral ulcer - Foot Xrays shows no signs of osteomyelitis - Sub met 1 hallux wound cultured: coagulase negative staph - ID consulted, continue to monitor off antibiotics - Podiatry consulted, dressed with Optifoam, followup with Dr. Cortés outpatient Lower extremity weakness and gait dysfunction - Likely 2/2 DJD - Podiatry followup, will need followup with Dr. Cortés outpatient - Patient in TCU for rehab DM - glucose today 131 - last HgbA1C 6.1% on 04/15/18 - ISS low dose - ACHS Chronic anemia - Hgb 11.8, Hemodynamically stable - Continue to monitor H/H Essential tremor - Primidone 50mg po HS PPx - Protonix 40 mg qd - heparin 5000 C q8h Dispo: estimated discharge from TCU 08/13/18 Pt seen, examined, assessment and plan discussed with Dr Naseem Price PGY1, Internal Medicine Resident <Hermila Gusman - Last Filed: 08/11/18 08:26> Objective - Vital Signs/Intake and Output Vital Signs (last 24 hours): Temp Pulse Resp BP Pulse Ox 98 F 72 18 146/88 99 08/10/18 16:00 08/10/18 16:00 08/10/18 16:00 08/11/18 08:11 08/10/18 16:00 Intake and Output: 08/11/18 08/11/18 06:59 18:59 Intake Total 360 Output Total 1250 Balance -890 - Medications Medications: Current Medications Acetaminophen (Tylenol 325mg Tab) 650 mg PO Q6H PRN; Protocol PRN Reason: Pain, Mild (1-3) Last Admin: 08/10/18 05:19 Dose: 650 mg Albuterol/Ipratropium (Duoneb 3 Mg/0.5 Mg (3 Ml) Ud) 3 ml IH [id number] PRN; Protocol PRN Reason: Shortness of Breath Ascorbic Acid (Vitamin C 500 Mg Tab) 500 mg PO DAILY [facility]; Protocol Last Admin: 08/10/18 09:43 Dose: 500 mg Aspirin (Ecotrin) 81 mg PO 0800 [facility]; Protocol Last Admin: 08/11/18 08:11 Dose: 81 mg Atorvastatin Calcium (Lipitor) 10 mg PO DIN [facility]; Protocol Last Admin: 08/10/18 17:14 Dose: 10 mg Calcitriol (Rocaltrol) 0.25 mcg PO MWF [facility] Last Admin: 08/09/18 10:07 Dose: 0.25 mcg Calcium Carbonate (Oscal) 500 mg PO DAILY [facility]; Protocol Last Admin: 08/10/18 09:42 Dose: 500 mg Cholecalciferol (Vitamin D) 1,000 intlu PO DAILY [facility]; Protocol Last Admin: 08/10/18 09:42 Dose: 1,000 intlu Cyanocobalamin (Vitamin B12 1000 Mcg Tab) 1,000 mcg PO BID [facility]; Protocol Last Admin: 08/10/18 17:15 Dose: 1,000 mcg Ergocalciferol (Drisdol 50,000 Intl Units Cap) 1 cap PO Q7D [facility] Last Admin: 08/08/18 09:45 Dose: 1 cap Furosemide (Lasix) 40 mg PO DAILY [facility]; Protocol Last Admin: 08/10/18 09:41 Dose: 40 mg Furosemide (Lasix) 20 mg PO DIN [facility] Last Admin: 08/10/18 17:13 Dose: 20 mg Heparin Sodium (Porcine) (Heparin) 5,000 units SC Q8 [facility]; Protocol Last Admin: 08/11/18 05:20 Dose: 5,000 units Insulin Human Regular (Humulin R Low) 0 units SC ACHS [facility]; Protocol Last Admin: 08/11/18 07:26 Dose: Not Given Isosorbide Mononitrate (Imdur) 60 mg PO 0600 [facility]; Protocol Last Admin: 08/11/18 05:20 Dose: 60 mg Lisinopril (Zestril) 40 mg PO DAILY [facility]; Protocol Metoprolol Tartrate (Lopressor) 100 mg PO BRKDIN [facility]; Protocol Last Admin: 08/11/18 08:11 Dose: 100 mg Multivitamins (Thera Tab) 1 tab PO 0800 [facility]; Protocol Last Admin: 08/11/18 08:11 Dose: 1 tab Oxycodone/Acetaminophen (Percocet 5/325 Mg Tab) 1 tab PO Q6H PRN PRN Reason: Pain, moderate (4-7) Stop: 08/12/18 14:36 Last Admin: 08/11/18 01:33 Dose: 1 tab Pantoprazole Sodium (Protonix Ec Tab) 40 mg PO 0600 [facility]; Protocol Last Admin: 08/11/18 05:20 Dose: 40 mg Primidone (Mysoline) 50 mg PO HS [facility]; Protocol Last Admin: 08/10/18 21:09 Dose: 50 mg - Labs Labs: 08/10/18 08:10 08/10/18 08:10 Attending/Attestation - Attestation I have personally seen and examined this patient.: Yes I have fully participated in the care of the patient.: Yes I have reviewed all pertinent clinical information, including history, physical exam and plan: Yes Notes (Text): 08/10/18 73 year old female with past medical history of CHF s/p AICD, CAD s/p CABG, diabetes and CKD who presented with CHF exacerbation and pneumonia. She was transferred to TCU for physical therapy rehabilitation. Continue with PT as tolerated. Nephrology is following for hyponatremia and CKD. Case was discussed with Dr. Cedeno today. Sodium is stable. Continue to monitory CKD. Will follow up with nephrology recommendations. Hermila Gusman MD Hospitalist.
--- NOTE | 2018-08-10 18:12 | PN ---
DATE: 08/10/2018 SUBJECTIVE: The patient is in no acute distress, nontoxic, was seen in room 316. PHYSICAL EXAMINATION: VITAL SIGNS: On exam, temperature is 98, blood pressure is 150/90, respiratory rate of 18, heart rate of 84. HEENT: Examination of HEENT is unremarkable. NECK: Supple. LUNGS: Have decreased breath sounds. HEART: Normal S1, S2. ABDOMEN: Soft. LABORATORY DATA: Laboratory examination reveals a white count of 7.3, hemoglobin of 11, platelets of 120. BUN of 58, creatinine is 2. Microbiology is reviewed. Review of orders confirms the patient's antibiotics are completed and on no antibiotics. ASSESSMENT AND PLAN: A 73-year-old female with a left leg cellulitis, right-sided community-acquired pneumonia and coronary artery disease, history of coronary bypass graft, history abdominal aortic aneurysm and repair, history of cholecystectomy, history of pacemaker placement, diabetic, currently now off of antibiotics, afebrile. The patient is at risk for developing nosocomial infections. José Luis Trevino MD
--- NOTE | 2018-08-10 23:20 | CP.PCM.PN ---
Subjective - Date & Time of Evaluation Date of Evaluation: 08/10/18 Time of Evaluation: 12:30 - Subjective Subjective: Patient reports feeling well; breathing ok; still having difficulty with ambulation and weak legs; Objective - Vital Signs/Intake and Output Vital Signs (last 24 hours): Temp Pulse Resp BP Pulse Ox 98 F 72 18 153/93 H 99 08/10/18 16:00 08/10/18 16:00 08/10/18 16:00 08/10/18 17:14 08/10/18 16:00 Intake and Output: 08/10/18 08/11/18 18:59 06:59 Intake Total 360 Output Total 1000 Balance -640 - Medications Medications: Current Medications Acetaminophen (Tylenol 325mg Tab) 650 mg PO Q6H PRN; Protocol PRN Reason: Pain, Mild (1-3) Last Admin: 08/10/18 05:19 Dose: 650 mg Albuterol/Ipratropium (Duoneb 3 Mg/0.5 Mg (3 Ml) Ud) 3 ml IH [id number] PRN; Protocol PRN Reason: Shortness of Breath Ascorbic Acid (Vitamin C 500 Mg Tab) 500 mg PO DAILY [facility]; Protocol Last Admin: 08/10/18 09:43 Dose: 500 mg Aspirin (Ecotrin) 81 mg PO 0800 [facility]; Protocol Last Admin: 08/10/18 09:41 Dose: 81 mg Atorvastatin Calcium (Lipitor) 10 mg PO DIN [facility]; Protocol Last Admin: 08/10/18 17:14 Dose: 10 mg Calcitriol (Rocaltrol) 0.25 mcg PO MWF [facility] Last Admin: 08/09/18 10:07 Dose: 0.25 mcg Calcium Carbonate (Oscal) 500 mg PO DAILY [facility]; Protocol Last Admin: 08/10/18 09:42 Dose: 500 mg Cholecalciferol (Vitamin D) 1,000 intlu PO DAILY [facility]; Protocol Last Admin: 08/10/18 09:42 Dose: 1,000 intlu Cyanocobalamin (Vitamin B12 1000 Mcg Tab) 1,000 mcg PO BID [facility]; Protocol Last Admin: 08/10/18 17:15 Dose: 1,000 mcg Ergocalciferol (Drisdol 50,000 Intl Units Cap) 1 cap PO Q7D [facility] Last Admin: 08/08/18 09:45 Dose: 1 cap Furosemide (Lasix) 40 mg PO DAILY [facility]; Protocol Last Admin: 08/10/18 09:41 Dose: 40 mg Furosemide (Lasix) 20 mg PO DIN [facility] Last Admin: 08/10/18 17:13 Dose: 20 mg Heparin Sodium (Porcine) (Heparin) 5,000 units SC Q8 [facility]; Protocol Last Admin: 08/10/18 21:10 Dose: 5,000 units Insulin Human Regular (Humulin R Low) 0 units SC ACHS [facility]; Protocol Last Admin: 08/10/18 22:27 Dose: Not Given Isosorbide Mononitrate (Imdur) 60 mg PO 0600 [facility]; Protocol Last Admin: 08/10/18 05:19 Dose: 60 mg Lisinopril (Zestril) 40 mg PO DAILY [facility]; Protocol Metoprolol Tartrate (Lopressor) 100 mg PO BRKDIN [facility]; Protocol Last Admin: 08/10/18 17:14 Dose: 100 mg Multivitamins (Thera Tab) 1 tab PO 0800 [facility]; Protocol Last Admin: 08/10/18 09:41 Dose: 1 tab Oxycodone/Acetaminophen (Percocet 5/325 Mg Tab) 1 tab PO Q6H PRN PRN Reason: Pain, moderate (4-7) Stop: 08/12/18 14:36 Last Admin: 08/10/18 20:03 Dose: 1 tab Pantoprazole Sodium (Protonix Ec Tab) 40 mg PO 0600 [facility]; Protocol Last Admin: 08/10/18 05:19 Dose: 40 mg Primidone (Mysoline) 50 mg PO HS [facility]; Protocol Last Admin: 08/10/18 21:09 Dose: 50 mg - Labs Labs: 08/10/18 08:10 08/10/18 08:10 - Constitutional Appears: Non-toxic, No Acute Distress - Eye Exam Eye Exam: Normal appearance - Respiratory Exam Respiratory Exam: Clear to Ausculation Bilateral. absent: Respiratory Distress - Cardiovascular Exam Cardiovascular Exam: RRR, +S1, +S2 - GI/Abdominal Exam GI & Abdominal Exam: Soft. absent: Distended, Tenderness - Extremities Exam Additional comments: mild b/l lower leg edema; - Neurological Exam Neurological Exam: Alert, Awake - Psychiatric Exam Psychiatric exam: Normal Mood. absent: Agitated - Skin Skin Exam: Warm. absent: Cyanosis Assessment and Plan (1) CKD (chronic kidney disease) stage 3, GFR 30-59 ml/min Assessment & Plan: Proteinuric kidney disease likely due to DM; relatively stable renal function; stable volume and electrolyte status; can expect some increase in serum creatinine with increased lisinopril dose; -avoid nephrotoxic agents (ie. NSAIDS, phosphate enema); -avoid over-diuresisi; Status: Chronic (2) Hypertensive CKD (chronic kidney disease) Assessment & Plan: BP elevated lately; will increase lisinopril further to 40 mg daily; continue rest of meds; Status: Acute (3) Hyponatremia Assessment & Plan: Mild and stable; not signficantly improved after holding metolazone and restart pm dose of lasix; -monitor periodically; -giving additional dose of tolvaptan 15 mg today; -continue PO fluid restriction to <1.5L daily; Status: Acute (4) CHF (congestive heart failure) Assessment & Plan: Relatively euvolemic by symptoms/exam; unable to get accurate standing weights; continue diuretics with lasix 40 mg in am 20 mg in pm; Status: Chronic (5) Proteinuria Status: Chronic
[2018-08-11] MEDS: Oxycodone/Acetaminophen 5/325 mg Tab PO PRN ×3 (01:33→19:35)
[2018-08-11] MEDS: Pantoprazole 40 mg EC Tab PO SCH (05:20)
[2018-08-11] MEDS: Insulin Reg-LOW-Coverage SC SCH ×3 (07:26→17:49)
[2018-08-11] MEDS: Multivitamin Therapeutic Tab PO SCH (08:11)
[2018-08-11 08:33] LABS: BASO # 0.03 K/mm3 (0.0-2.0); BASO % 0.4 % (0.0-3.0); EOS # 0.3 (0.0-0.7); EOS % 4.1 % (1.5-5.0); GRAN # 5.53 (1.4-6.5); GRAN % 75.3 % (50.0-68.0); HEMOGLOBIN 11.6 g/dL (12.0-16.0); LYMPH # 1.1 (1.2-3.4); LYMPH % 15.4 % (22.0-35.0); MEAN CELL VOLUME 92.3 fl (80.0-105.0); MEAN CORPUSCULAR HEMOGLOBIN 29.8 pg (25.0-35.0); MEAN CORPUSCULAR HGB CONC 32.3 g/dl (31.0-37.0); MEAN PLATELET VOLUME 9.2 fl (7.0-11.0); MONO # 0.4 (0.1-0.6); MONO % 4.8 % (1.0-6.0); RBC 3.89 10^6/uL (3.5-6.1); RED CELL DISTRIBUTION WIDTH 14.4 % (11.5-14.5); WHITE BLOOD COUNT 7.3 10^3/ul (4.5-11.0)
[2018-08-11 09:02] LABS: ALB/GLOB RATIO 1.2 (1.1-1.8); ALBUMIN 3.4 g/dL (3.0-4.8); CALCIUM 8.9 mg/dL (8.4-10.5)
[2018-08-11] MEDS: Cholecalciferol 1,000 INTLU TAB PO SCH (09:48)
--- NOTE | 2018-08-11 17:56 | PN ---
DATE: 08/11/2018 SUBJECTIVE: The was patient seen earlier this morning in room 316. She is comfortable. No fevers and no chills. No nausea, no vomiting. PHYSICAL EXAMINATION: VITAL SIGNS: Temperature is 97, blood pressure is 130/80, respiratory rate of 18, heart rate of 72. HEENT: Unremarkable. NECK: Supple. LUNGS: Have decreased breath sounds. HEART: Normal S1, S2. ABDOMEN: Soft, nontender. LABORATORY EXAMINATION: Reveals a white count of 7.3, hemoglobin of 11, and platelets of . BUN of 60, creatinine of 1.9. Microbiology is reviewed. Left foot culture is coag-negative staph and review of orders reveals the patient is off antibiotics. ASSESSMENT AND PLAN: A 73-year-old female seen earlier this morning, was admitted with a left leg cellulitis, right-sided community-acquired pneumonia, coronary artery disease, coronary bypass graft, history of abdominal aortic aneurysm and repair, history of cholecystectomy, pacemaker placement, diabetic. Completed her antibiotic therapy, currently off antibiotics, afebrile. The patient is at risk for developing nosocomial infections. José Luis Trevino MD
[2018-08-12] MEDS: Insulin Reg-LOW-Coverage SC SCH ×5 (01:17→22:05)
[2018-08-12] MEDS: Pantoprazole 40 mg EC Tab PO SCH (05:10)
[2018-08-12] MEDS: Multivitamin Therapeutic Tab PO SCH (08:22)
[2018-08-12 09:38] LABS: BASO # 0.03 K/mm3 (0.0-2.0); BASO % 0.4 % (0.0-3.0); EOS # 0.2 (0.0-0.7); EOS % 2.4 % (1.5-5.0); GRAN # 6.65 (1.4-6.5); GRAN % 83.5 % (50.0-68.0); HEMOGLOBIN 11.3 g/dL (12.0-16.0); LYMPH # 0.7 (1.2-3.4); LYMPH % 8.8 % (22.0-35.0); MEAN CELL VOLUME 93.9 fl (80.0-105.0); MEAN CORPUSCULAR HEMOGLOBIN 29.9 pg (25.0-35.0); MEAN CORPUSCULAR HGB CONC 31.8 g/dl (31.0-37.0); MEAN PLATELET VOLUME 9.4 fl (7.0-11.0); MONO # 0.4 (0.1-0.6); MONO % 4.9 % (1.0-6.0); RBC 3.78 10^6/uL (3.5-6.1); RED CELL DISTRIBUTION WIDTH 14.3 % (11.5-14.5)
--- NOTE | 2018-08-12 09:41 | CP.PCM.PN ---
Subjective - Date & Time of Evaluation Date of Evaluation: 08/12/18 Time of Evaluation: 09:34 - Subjective Subjective: Podiatry Progress Note for Dr. Cortés 73 yo female patient, seen and evaluated in TCU for continued care of left submetatarsal 1 ulceration; resolved. Patient is AAOx3 and in NAD. Patient states that she will most likely be d/c tomorrow after she finishes her course of antibiotics. Denies N/V/F. Objective - Vital Signs/Intake and Output Vital Signs (last 24 hours): Temp Pulse Resp BP Pulse Ox 98.1 F 81 18 133/86 100 08/11/18 16:00 08/11/18 16:00 08/11/18 16:00 08/12/18 08:21 08/11/18 16:00 Intake and Output: 08/12/18 08/12/18 06:59 18:59 Intake Total 420 Output Total 950 Balance -530 - Medications Medications: Current Medications Acetaminophen (Tylenol 325mg Tab) 650 mg PO Q6H PRN; Protocol PRN Reason: Pain, Mild (1-3) Last Admin: 08/11/18 14:43 Dose: 650 mg Albuterol/Ipratropium (Duoneb 3 Mg/0.5 Mg (3 Ml) Ud) 3 ml IH [id number] PRN; Protocol PRN Reason: Shortness of Breath Ascorbic Acid (Vitamin C 500 Mg Tab) 500 mg PO DAILY [facility]; Protocol Last Admin: 08/11/18 09:47 Dose: 500 mg Aspirin (Ecotrin) 81 mg PO 0800 [facility]; Protocol Last Admin: 08/12/18 08:22 Dose: 81 mg Atorvastatin Calcium (Lipitor) 10 mg PO DIN [facility]; Protocol Last Admin: 08/11/18 17:50 Dose: 10 mg Calcitriol (Rocaltrol) 0.25 mcg PO MWF [facility] Last Admin: 08/09/18 10:07 Dose: 0.25 mcg Calcium Carbonate (Oscal) 500 mg PO DAILY [facility]; Protocol Last Admin: 08/11/18 09:47 Dose: 500 mg Cholecalciferol (Vitamin D) 1,000 intlu PO DAILY [facility]; Protocol Last Admin: 08/11/18 09:48 Dose: 1,000 intlu Cyanocobalamin (Vitamin B12 1000 Mcg Tab) 1,000 mcg PO BID [facility]; Protocol Last Admin: 08/11/18 17:52 Dose: 1,000 mcg Ergocalciferol (Drisdol 50,000 Intl Units Cap) 1 cap PO Q7D [facility] Last Admin: 08/08/18 09:45 Dose: 1 cap Furosemide (Lasix) 40 mg PO DAILY [facility]; Protocol Last Admin: 08/11/18 09:46 Dose: 40 mg Furosemide (Lasix) 20 mg PO DIN [facility] Last Admin: 08/11/18 17:50 Dose: 20 mg Heparin Sodium (Porcine) (Heparin) 5,000 units SC Q8 [facility]; Protocol Last Admin: 08/12/18 05:09 Dose: 5,000 units Insulin Human Regular (Humulin R Low) 0 units SC ACHS [facility]; Protocol Last Admin: 08/12/18 06:48 Dose: Not Given Isosorbide Mononitrate (Imdur) 60 mg PO 0600 [facility]; Protocol Last Admin: 08/12/18 05:10 Dose: 60 mg Lisinopril (Zestril) 40 mg PO DAILY [facility]; Protocol Last Admin: 08/11/18 09:48 Dose: 40 mg Metoprolol Tartrate (Lopressor) 100 mg PO BRKDIN [facility]; Protocol Last Admin: 08/12/18 08:21 Dose: 100 mg Multivitamins (Thera Tab) 1 tab PO 0800 [facility]; Protocol Last Admin: 08/12/18 08:22 Dose: 1 tab Oxycodone/Acetaminophen (Percocet 5/325 Mg Tab) 1 tab PO Q6H PRN PRN Reason: Pain, moderate (4-7) Stop: 08/12/18 14:36 Last Admin: 08/11/18 19:35 Dose: 1 tab Pantoprazole Sodium (Protonix Ec Tab) 40 mg PO 0600 [facility]; Protocol Last Admin: 08/12/18 05:10 Dose: 40 mg Primidone (Mysoline) 50 mg PO HS [facility]; Protocol Last Admin: 08/11/18 21:21 Dose: 50 mg - Labs Labs: 08/11/18 07:00 08/11/18 07:00 - Constitutional Appears: Well, Non-toxic, No Acute Distress - Head Exam Head Exam: ATRAUMATIC, NORMOCEPHALIC - Extremities Exam Additional comments: Lower extremity focused exam: Vasc: DP 1/4, PT 1/4 bilaterally, CFT <3 seconds to digits, TG warm to warm, edema resolving Ortho: Partial left hallux amputation and second digit amputation. Rigid hammertoe contractures to lesser digits on the R foot Neuro: Gross sensation intact, protective sensation absent Derm: Left plantar submetatarsal head 1 ulceration; resolved. Epithelialization appreciated, no drainage, no openings, no probe to bone, no malodor, no tunneling or tracking. No cellulitis or erythema noted. - Neurological Exam Neurological Exam: Alert, Awake, Oriented x3 Assessment and Plan - Assessment and Plan (Free Text) Assessment: 73 yo female with left plantar submetatarsal head 1 ulceration; resolved Plan: Patient seen and evaluated at bedside with all questions and concerns addressed Patient plan discussed with Dr. Cortés Patient will most likely be d/c tomorrow after receiving dose of antibiotics. No dressing to L submet 1 today, left open to air L foot x-ray (07/31); No OM appreciated L foot wound culture (07/30): coagulase neg staphylococcus F/U in Dr. Cortés's in office upon discharge
--- NOTE | 2018-08-12 09:44 | PN ---
DATE: 08/12/2018 CARDIOLOGY FOLLOWUP: SUBJECTIVE: The patient is resting comfortably. No dyspnea noted. PHYSICAL EXAMINATION: VITAL SIGNS: Blood pressure is 133/86, the heart rate is in the 80s. NECK: Negative JVD. LUNGS: Without rales. HEART: Reveals S1, S2. EXTREMITIES: Decreasing edema. LABORATORY DATA: Hemoglobin is 11.6. Chemistries: BUN and creatinine are 60 and 1.9 with a glucose of 142. IMPRESSION: 1. End-stage dilated cardiomyopathy. 2. Coronary artery disease. 3. Diabetes mellitus. 4. Recurrent congestive heart failure, which is stable now. 5. Renal insufficiency. PLAN: Given these findings, the patient is doing well and still participating with physical therapy. Vinnie Vidales MD
[2018-08-12 09:56] LABS: ALB/GLOB RATIO 1.2 (1.1-1.8); ALBUMIN 3.5 g/dL (3.0-4.8); CALCIUM 9.1 mg/dL (8.4-10.5)
[2018-08-12] MEDS ORDERED: Sod Polystyrene Sulf 15 gm/60 ml Susp PO ONE (09:58)
[2018-08-12] MEDS ORDERED: Insulin Regular 1 UNITS/0.01 ML ML IVP ONE (10:15)
[2018-08-12] MEDS ORDERED: Sodium Chloride 0.9% 500 ML IV SCH (10:15)
[2018-08-12] MEDS: Cholecalciferol 1,000 INTLU TAB PO SCH (10:16)
--- NOTE | 2018-08-12 12:01 | CP.PCM.PN ---
<Talia Ratliff - Last Filed: 08/12/18 12:06> Subjective - Date & Time of Evaluation Date of Evaluation: 08/12/18 Time of Evaluation: 09:00 - Subjective Subjective: Talia aRtliff DO, PGY-2: Nephrology Progress Note for Dr. Cedeno Patient was seen and examined at bedside. Patient reports not feeling well this morning. Apparently, her colostomy detached and had to be repaired. She has nocturia. She was noted to be hyperkalemic this morning. She admits to polyuria and nocturia; denies chest pain, nausea, vomiting, or loose stools. Objective - Vital Signs/Intake and Output Vital Signs (last 24 hours): Temp Pulse Resp BP Pulse Ox 98.1 F 81 18 133/85 100 08/11/18 16:00 08/11/18 16:00 08/11/18 16:00 08/12/18 10:15 08/11/18 16:00 Intake and Output: 08/12/18 08/12/18 06:59 18:59 Intake Total 420 Output Total 950 Balance -530 - Medications Medications: Current Medications Acetaminophen (Tylenol 325mg Tab) 650 mg PO Q6H PRN; Protocol PRN Reason: Pain, Mild (1-3) Last Admin: 08/11/18 14:43 Dose: 650 mg Albuterol/Ipratropium (Duoneb 3 Mg/0.5 Mg (3 Ml) Ud) 3 ml IH [id number] PRN; Protocol PRN Reason: Shortness of Breath Ascorbic Acid (Vitamin C 500 Mg Tab) 500 mg PO DAILY [facility]; Protocol Last Admin: 08/12/18 10:16 Dose: 500 mg Aspirin (Ecotrin) 81 mg PO 0800 [facility]; Protocol Last Admin: 08/12/18 08:22 Dose: 81 mg Atorvastatin Calcium (Lipitor) 10 mg PO DIN [facility]; Protocol Last Admin: 08/11/18 17:50 Dose: 10 mg Calcitriol (Rocaltrol) 0.25 mcg PO MWF [facility] Last Admin: 08/12/18 10:17 Dose: 0.25 mcg Calcium Carbonate (Oscal) 500 mg PO DAILY [facility]; Protocol Last Admin: 08/12/18 10:16 Dose: 500 mg Cholecalciferol (Vitamin D) 1,000 intlu PO DAILY [facility]; Protocol Last Admin: 08/12/18 10:16 Dose: 1,000 intlu Cyanocobalamin (Vitamin B12 1000 Mcg Tab) 1,000 mcg PO BID [facility]; Protocol Last Admin: 08/12/18 10:17 Dose: 1,000 mcg Ergocalciferol (Drisdol 50,000 Intl Units Cap) 1 cap PO Q7D [facility] Last Admin: 08/08/18 09:45 Dose: 1 cap Furosemide (Lasix) 40 mg PO DAILY [facility]; Protocol Last Admin: 08/12/18 10:15 Dose: 40 mg Furosemide (Lasix) 20 mg PO DIN [facility] Last Admin: 08/11/18 17:50 Dose: 20 mg Heparin Sodium (Porcine) (Heparin) 5,000 units SC Q12H [facility]; Protocol Sodium Chloride (Sodium Chloride 0.9%) 500 mls @ 75 mls/hr IV .Q6H40M [facility] Stop: 08/12/18 16:54 Last Admin: 08/12/18 10:12 Dose: 75 mls/hr Insulin Human Regular (Humulin R Low) 0 units SC ACHS [facility]; Protocol Last Admin: 08/12/18 11:41 Dose: 2 unit Isosorbide Mononitrate (Imdur) 60 mg PO 0600 [facility]; Protocol Last Admin: 08/12/18 05:10 Dose: 60 mg Lisinopril (Zestril) 40 mg PO DAILY [facility]; Protocol Last Admin: 08/11/18 09:48 Dose: 40 mg Metoprolol Tartrate (Lopressor) 100 mg PO BRKDIN [facility]; Protocol Last Admin: 08/12/18 08:21 Dose: 100 mg Multivitamins (Thera Tab) 1 tab PO 0800 [facility]; Protocol Last Admin: 08/12/18 08:22 Dose: 1 tab Oxycodone/Acetaminophen (Percocet 5/325 Mg Tab) 1 tab PO Q6H PRN PRN Reason: Pain, moderate (4-7) Stop: 08/12/18 14:36 Last Admin: 08/11/18 19:35 Dose: 1 tab Pantoprazole Sodium (Protonix Ec Tab) 40 mg PO 0600 [facility]; Protocol Last Admin: 08/12/18 05:10 Dose: 40 mg Primidone (Mysoline) 50 mg PO HS [facility]; Protocol Last Admin: 08/11/18 21:21 Dose: 50 mg - Labs Labs: 08/12/18 09:00 08/12/18 09:00 - Constitutional Appears: Non-toxic - Head Exam Head Exam: ATRAUMATIC, NORMOCEPHALIC - Eye Exam Eye Exam: EOMI, Normal appearance - ENT Exam ENT Exam: Mucous Membranes Moist - Neck Exam Neck Exam: Normal Inspection - Respiratory Exam Respiratory Exam: Clear to Ausculation Bilateral, NORMAL BREATHING PATTERN. absent: Accessory Muscle Use - Cardiovascular Exam Cardiovascular Exam: RRR, +S1, +S2 - GI/Abdominal Exam GI & Abdominal Exam: Soft, Normal Bowel Sounds - Extremities Exam Extremities Exam: Normal Inspection. absent: Calf Tenderness - Back Exam Back Exam: NORMAL INSPECTION. absent: CVA tenderness (L), CVA tenderness (R) - Neurological Exam Neurological Exam: Alert, Awake, Oriented x3 - Psychiatric Exam Psychiatric exam: Normal Affect, Normal Mood - Skin Skin Exam: Dry, Intact, Normal Color, Warm Assessment and Plan - Assessment and Plan (Free Text) Assessment: 1) CKD with hyperkalemia - K noted to 5.9 today: given 15 of Kayexelate, 5 units IVP of regular insulin, 75 mls/hr of NS for 500 ml, Lisinopril held for today, Will restart at 20 mg; heparin changed to q12h 2) Hypertension - Will hold Lisinopril for today - Will repeat BMP tomorrow and consider restarting Lisinopril at 20 mg dosage 3) Hyponatremia - Resolved Case reviewed and discussed with attending physician, Dr. Cedeno <Derek Cedeno - Last Filed: 08/13/18 09:22> Objective - Vital Signs/Intake and Output Vital Signs (last 24 hours): Temp Pulse Resp BP Pulse Ox 97.5 F L 77 18 124/73 99 08/12/18 16:00 08/13/18 07:55 08/12/18 16:00 08/13/18 09:05 08/12/18 16:00 Intake and Output: 08/13/18 08/13/18 06:59 18:59 Intake Total 420 Output Total 1000 Balance -580 - Medications Medications: Current Medications Acetaminophen (Tylenol 325mg Tab) 650 mg PO Q6H PRN; Protocol PRN Reason: Pain, Mild (1-3) Last Admin: 08/11/18 14:43 Dose: 650 mg Albuterol/Ipratropium (Duoneb 3 Mg/0.5 Mg (3 Ml) Ud) 3 ml IH [id number] PRN; Protocol PRN Reason: Shortness of Breath Ascorbic Acid (Vitamin C 500 Mg Tab) 500 mg PO DAILY [facility]; Protocol Last Admin: 08/13/18 09:05 Dose: 500 mg Aspirin (Ecotrin) 81 mg PO 0800 [facility]; Protocol Last Admin: 08/13/18 07:54 Dose: 81 mg Atorvastatin Calcium (Lipitor) 10 mg PO DIN [facility]; Protocol Last Admin: 08/12/18 17:55 Dose: 10 mg Calcitriol (Rocaltrol) 0.25 mcg PO MWF [facility] Last Admin: 08/12/18 10:17 Dose: 0.25 mcg Calcium Carbonate (Oscal) 500 mg PO DAILY [facility]; Protocol Last Admin: 08/13/18 09:05 Dose: 500 mg Cholecalciferol (Vitamin D) 1,000 intlu PO DAILY [facility]; Protocol Last Admin: 08/13/18 09:05 Dose: 1,000 intlu Cyanocobalamin (Vitamin B12 1000 Mcg Tab) 1,000 mcg PO BID [facility]; Protocol Last Admin: 08/13/18 09:05 Dose: 1,000 mcg Ergocalciferol (Drisdol 50,000 Intl Units Cap) 1 cap PO Q7D [facility] Last Admin: 08/08/18 09:45 Dose: 1 cap Furosemide (Lasix) 40 mg PO DAILY [facility]; Protocol Last Admin: 08/13/18 09:05 Dose: 40 mg Furosemide (Lasix) 20 mg PO DIN [facility] Last Admin: 08/12/18 18:01 Dose: 20 mg Heparin Sodium (Porcine) (Heparin) 5,000 units SC Q12H [facility]; Protocol Last Admin: 08/13/18 05:32 Dose: 5,000 units Insulin Human Regular (Humulin R Low) 0 units SC ACHS [facility]; Protocol Last Admin: 08/13/18 06:44 Dose: Not Given Isosorbide Mononitrate (Imdur) 60 mg PO 0600 [facility]; Protocol Last Admin: 08/13/18 05:32 Dose: 60 mg Lisinopril (Zestril) 20 mg PO DAILY [facility]; Protocol Metoprolol Tartrate (Lopressor) 100 mg PO BRKDIN [facility]; Protocol Last Admin: 08/13/18 07:55 Dose: 100 mg Multivitamins (Thera Tab) 1 tab PO 0800 [facility]; Protocol Last Admin: 08/13/18 07:54 Dose: 1 tab Oxycodone/Acetaminophen (Percocet 5/325 Mg Tab) 1 tab PO Q6H PRN PRN Reason: Pain, moderate (4-7) Stop: 08/15/18 19:44 Last Admin: 08/12/18 20:00 Dose: 1 tab Pantoprazole Sodium (Protonix Ec Tab) 40 mg PO 0600 [facility]; Protocol Last Admin: 08/13/18 06:57 Dose: 40 mg Primidone (Mysoline) 50 mg PO HS [facility]; Protocol Last Admin: 08/12/18 21:20 Dose: 50 mg - Labs Labs: 08/13/18 06:45 08/13/18 08:00 Assessment and Plan (1) CKD (chronic kidney disease) stage 3, GFR 30-59 ml/min Status: Chronic (2) Hypertensive CKD (chronic kidney disease) Status: Acute (3) Hyponatremia Status: Acute (4) CHF (congestive heart failure) Status: Chronic (5) Proteinuria Status: Chronic Attending/Attestation - Attestation I have personally seen and examined this patient.: Yes I have fully participated in the care of the patient.: Yes I have reviewed all pertinent clinical information, including history, physical exam and plan: Yes Notes (Text): Patient seen and examined; I agree with the resident's note as above with the following edits/additions: Patient with htn, dm, CHF w/ systolic dysfunction, CKD IIIB, admitted with lethargy, now in TCU; Hyperkalemia noted today; lisinopril dose had been increased to 40 mg recently; will hold lisinopril temporarily and restart at 20 mg once safe; giving 5u regular insulin and kayexalate (although unclear if patient has any colon left s/p resection; will not work without colon); low K diet; changing subcu heparin to q12h; 500 cc NS at 75 cc/hr for kaliuresis; Otherwise appears euvolemic on exam; no CHF symptoms; will keep on diuretic regimen of lasix 40 mg in am and 20 mg in pm; HTN with elevated BP; continue current meds, holding lisinopril as above; Hyponatremia improved after tolvaptan dose; continue 1500 cc PO fluid restriction;
--- NOTE | 2018-08-12 12:39 | CP.PCM.PN ---
<Tiffany Egan - Last Filed: 08/12/18 12:39> Subjective - Date & Time of Evaluation Date of Evaluation: 08/12/18 Time of Evaluation: 11:30 - Subjective Subjective: PGY-1 Medicine Progress Note for Dr. Pablo's service Patient seen and examined at bedside. Patient reports difficulty getting rest last night 2/2 ileostomy bag opening up and nurses continuing to wake up patient. Patient reports improved breathing and leg swelling. Patient denies fevers, chills, sob, cp, n/v, constipation or diarrhea, dysuria. Objective - Vital Signs/Intake and Output Vital Signs (last 24 hours): Temp Pulse Resp BP Pulse Ox 98.1 F 81 18 133/85 100 08/11/18 16:00 08/11/18 16:00 08/11/18 16:00 08/12/18 10:15 08/11/18 16:00 Intake and Output: 08/12/18 08/12/18 06:59 18:59 Intake Total 420 Output Total 950 Balance -530 - Medications Medications: Current Medications Acetaminophen (Tylenol 325mg Tab) 650 mg PO Q6H PRN; Protocol PRN Reason: Pain, Mild (1-3) Last Admin: 08/11/18 14:43 Dose: 650 mg Albuterol/Ipratropium (Duoneb 3 Mg/0.5 Mg (3 Ml) Ud) 3 ml IH [id number] PRN; Protocol PRN Reason: Shortness of Breath Ascorbic Acid (Vitamin C 500 Mg Tab) 500 mg PO DAILY [facility]; Protocol Last Admin: 08/12/18 10:16 Dose: 500 mg Aspirin (Ecotrin) 81 mg PO 0800 [facility]; Protocol Last Admin: 08/12/18 08:22 Dose: 81 mg Atorvastatin Calcium (Lipitor) 10 mg PO DIN [facility]; Protocol Last Admin: 08/11/18 17:50 Dose: 10 mg Calcitriol (Rocaltrol) 0.25 mcg PO MWF [facility] Last Admin: 08/12/18 10:17 Dose: 0.25 mcg Calcium Carbonate (Oscal) 500 mg PO DAILY [facility]; Protocol Last Admin: 08/12/18 10:16 Dose: 500 mg Cholecalciferol (Vitamin D) 1,000 intlu PO DAILY [facility]; Protocol Last Admin: 08/12/18 10:16 Dose: 1,000 intlu Cyanocobalamin (Vitamin B12 1000 Mcg Tab) 1,000 mcg PO BID [facility]; Protocol Last Admin: 08/12/18 10:17 Dose: 1,000 mcg Ergocalciferol (Drisdol 50,000 Intl Units Cap) 1 cap PO Q7D [facility] Last Admin: 08/08/18 09:45 Dose: 1 cap Furosemide (Lasix) 40 mg PO DAILY [facility]; Protocol Last Admin: 08/12/18 10:15 Dose: 40 mg Furosemide (Lasix) 20 mg PO DIN [facility] Last Admin: 08/11/18 17:50 Dose: 20 mg Heparin Sodium (Porcine) (Heparin) 5,000 units SC Q12H [facility]; Protocol Sodium Chloride (Sodium Chloride 0.9%) 500 mls @ 75 mls/hr IV .Q6H40M [facility] Stop: 08/12/18 16:54 Last Admin: 08/12/18 10:12 Dose: 75 mls/hr Insulin Human Regular (Humulin R Low) 0 units SC ACHS [facility]; Protocol Last Admin: 08/12/18 11:41 Dose: 2 unit Isosorbide Mononitrate (Imdur) 60 mg PO 0600 [facility]; Protocol Last Admin: 08/12/18 05:10 Dose: 60 mg Lisinopril (Zestril) 40 mg PO DAILY [facility]; Protocol Last Admin: 08/11/18 09:48 Dose: 40 mg Metoprolol Tartrate (Lopressor) 100 mg PO BRKDIN [facility]; Protocol Last Admin: 08/12/18 08:21 Dose: 100 mg Multivitamins (Thera Tab) 1 tab PO 0800 [facility]; Protocol Last Admin: 08/12/18 08:22 Dose: 1 tab Oxycodone/Acetaminophen (Percocet 5/325 Mg Tab) 1 tab PO Q6H PRN PRN Reason: Pain, moderate (4-7) Stop: 08/12/18 14:36 Last Admin: 08/11/18 19:35 Dose: 1 tab Pantoprazole Sodium (Protonix Ec Tab) 40 mg PO 0600 [facility]; Protocol Last Admin: 08/12/18 05:10 Dose: 40 mg Primidone (Mysoline) 50 mg PO HS [facility]; Protocol Last Admin: 08/11/18 21:21 Dose: 50 mg - Labs Labs: 08/12/18 09:00 08/12/18 09:00 - Constitutional Appears: Non-toxic, No Acute Distress - Head Exam Head Exam: NORMAL INSPECTION, NORMOCEPHALIC - Eye Exam Eye Exam: EOMI, Normal appearance. absent: Nystagmus, Scleral icterus - ENT Exam ENT Exam: Mucous Membranes Moist - Respiratory Exam Respiratory Exam: Clear to Ausculation Bilateral, Rales, Rhonchi, Wheezes, NORMAL BREATHING PATTERN - Cardiovascular Exam Cardiovascular Exam: REGULAR RHYTHM, +S1, +S2 - GI/Abdominal Exam GI & Abdominal Exam: Soft, Normal Bowel Sounds. absent: Guarding, Rigid, Tenderness, Diminished Bowel Sounds - Extremities Exam Extremities Exam: Normal Inspection. absent: Calf Tenderness, Pedal Edema - Neurological Exam Neurological Exam: Alert, Awake, Oriented x3 - Psychiatric Exam Psychiatric exam: Normal Affect, Normal Mood - Skin Skin Exam: Intact, Normal Color Assessment and Plan - Assessment and Plan (Free Text) Assessment: Patient is a 73 F, with PMH CAD s/p CABG & AICD, systolic CHF (EF 30s, 2017, RVSP 24) with End-staged dilated cardiomyopathy s/p IV home inotropic therapy, diabetes with L toe amputation, AAA repair, colostomy s/p colectomy due to ischemic colitis, CKD stage 4, and chronic ataxia with DJD, admitted for systolic CHF exacerbation and community acquired pneumonia. Patient transferred to TCU after medical evaluation and treatment for PNA and CHF exacerbation. Patient will receive 10 days of antibiotics for complete PNA treatment. Plan: Hypokalemia Repeat BMP today Insulin 5 units and Kayexelate Held Zestril Hyponatremia Na 129 Nephro, Dr. Cedeno following Fluid restriction; Lasix po 40 daily and 20 bedtime Daily weights Hx of systolic CHF Cardio consulted, Pt on PO Lasix 40 daily and 20 bedtime Echo from 07/31: Dilated LV. Moderate to severe LV hypokinesis. Moderate MR and TR. Dilated LA and RA. Moderate pulmonary hypertension. PPM in RV noted. LVEF: 30% Daily weights, fluid restriction 1200 with diet Continue Lopressor 100 mg bid, aspirin 81 mg, imdur 60 mg qd, lipitor 10 mg qd, Held lisinopril Pneumonia Resolved VALE on CKD stage 4 On lasix 40, 20; Likely patient new baseline; further reccs as per as nephro Fluid restriction, continue to monitor Hypocalcemia Continue Calcitriol; Calcium carbonate; Vit D; Ergocalciferol Left submetatarsal ulceration and stage 1 sacral ulcer Podiatry following; open to air; D/C tomorrow with dose of Abx F/U with Dr. Cortés Lower extremity weakness and gait dysfunction Likely 2/2 DJD Patient in TCU for rehab DM last HgbA1C 6.1% on 04/15/18 ISS low dose ACHS Chronic anemia Hgb 11.8, Hemodynamically stable Continue to monitor H/H Essential tremor Primidone 50mg po HS PPx GI ppx- Protonix 40mg HS DVT ppx- Heparin 5000 units q 12 Dispo: estimated discharge from TCU 08/13/18 Pt seen, examined, assessment and plan discussed with Dr Bev Egan PGY1 <Sofía Pablo - Last Filed: 08/13/18 16:55> Objective - Vital Signs/Intake and Output Vital Signs (last 24 hours): Temp Pulse Resp BP Pulse Ox 97.5 F L 83 18 124/73 99 08/12/18 16:00 08/13/18 16:12 08/12/18 16:00 08/13/18 09:05 08/13/18 16:12 Intake and Output: 08/13/18 08/13/18 06:59 18:59 Intake Total 420 Output Total 1000 Balance -580 - Labs Labs: 08/13/18 06:45 08/13/18 08:00 Attending/Attestation - Attestation I have personally seen and examined this patient.: Yes I have fully participated in the care of the patient.: Yes I have reviewed all pertinent clinical information, including history, physical exam and plan: Yes Notes (Text): 08/13/18 16:53 73 F, with PMH CAD s/p CABG & AICD, systolic CHF (EF 30s, 2017, RVSP 24) with End-staged dilated cardiomyopathy s/p IV home inotropic therapy, diabetes with L toe amputation, AAA repair, 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 for systolic CHF exacerbation , pneumonia and foot infection. She was transfered to TCU for rehabiltation. She is hyperkalmeic today, sp treatment, will follow up repeat level.Patient is asymptomatic. Hyponatremia and Creatinin is stable. 08/13/18 16:55
[2018-08-12 16:49] VITALS: TEMP 97.5; O2SAT 99
[2018-08-12 17:21] LABS: CALCIUM 9.1 mg/dL (8.4-10.5)
[2018-08-12] MEDS ORDERED: Oxycodone/Acetaminophen 5/325 mg Tab PO PRN (19:43)
--- NOTE | 2018-08-12 19:43 | PN ---
DATE: 08/12/2018 SUBJECTIVE: The patient is in bed, in no acute distress, nontoxic. PHYSICAL EXAMINATION: VITAL SIGNS: Temperature is 98, blood pressure is 140/90, respiratory rate of 16. HEENT: Unremarkable. NECK: Supple. LUNGS: Have decreased breath sounds. HEART: Normal S1, S2. ABDOMEN: Soft, nontender. LABORATORY EXAMINATION: Reviewed. ASSESSMENT AND PLAN: A 73-year-old female who was admitted with a left leg cellulitis, right-sided community-acquired pneumonia, coronary artery disease, coronary bypass graft, history of abdominal aortic aneurysm and repair, history of cholecystectomy, pacemaker placement, diabetes. Completed the antibiotic therapy, currently off of antibiotic therapy, afebrile, improving. Review of orders confirms the patient to be off of antibiotics. We will follow with you. José Luis Trevino MD
[2018-08-13] MEDS: Insulin Reg-LOW-Coverage SC SCH ×2 (06:44→12:11)
[2018-08-13] MEDS: Pantoprazole 40 mg EC Tab PO SCH (06:57)
[2018-08-13 07:11] LABS: BASO # 0.04 K/mm3 (0.0-2.0); BASO % 0.6 % (0.0-3.0); EOS # 0.2 (0.0-0.7); EOS % 2.8 % (1.5-5.0); GRAN # 4.94 (1.4-6.5); GRAN % 72.7 % (50.0-68.0); HEMOGLOBIN 10.6 g/dL (12.0-16.0); MEAN CELL VOLUME 94.1 fl (80.0-105.0); MEAN CORPUSCULAR HEMOGLOBIN 29.9 pg (25.0-35.0); MEAN CORPUSCULAR HGB CONC 31.8 g/dl (31.0-37.0); MEAN PLATELET VOLUME 10.3 fl (7.0-11.0); MONO # 0.7 (0.1-0.6); MONO % 9.9 % (1.0-6.0); RBC 3.54 10^6/uL (3.5-6.1); RED CELL DISTRIBUTION WIDTH 14.5 % (11.5-14.5); WHITE BLOOD COUNT 6.8 10^3/ul (4.5-11.0)
[2018-08-13 07:33] LABS: CALCIUM 5.4 mg/dL (8.4-10.5)
[2018-08-13] MEDS: Multivitamin Therapeutic Tab PO SCH (07:54)
[2018-08-13 08:53] LABS: ALB/GLOB RATIO 1.2 (1.1-1.8); ALBUMIN 3.7 g/dL (3.0-4.8); CALCIUM 9.1 mg/dL (8.4-10.5)
[2018-08-13] MEDS: Cholecalciferol 1,000 INTLU TAB PO SCH (09:05)
[2018-08-13 09:11] VITALS: BP 124/73
--- NOTE | 2018-08-13 11:23 | CP.PCM.PN ---
Subjective - Date & Time of Evaluation Date of Evaluation: 08/13/18 Time of Evaluation: 11:13 - Subjective Subjective: Podiatry Progress Note for Dr. Cortés 73 yo female patient, seen and evaluated in TCU for continued care of left submetatarsal 1 ulceration; resolved. Patient is AAOx3 and in NAD. She denies any new pedal complaints at this time. She continues to participate in conditioning treatments with physical therapy daily. Denies N/V/F. Objective - Vital Signs/Intake and Output Vital Signs (last 24 hours): Temp Pulse Resp BP Pulse Ox 97.5 F L 77 18 124/73 99 08/12/18 16:00 08/13/18 07:55 08/12/18 16:00 08/13/18 09:05 08/12/18 16:00 Intake and Output: 08/13/18 08/13/18 06:59 18:59 Intake Total 420 Output Total 1000 Balance -580 - Medications Medications: Current Medications Acetaminophen (Tylenol 325mg Tab) 650 mg PO Q6H PRN; Protocol PRN Reason: Pain, Mild (1-3) Last Admin: 08/11/18 14:43 Dose: 650 mg Albuterol/Ipratropium (Duoneb 3 Mg/0.5 Mg (3 Ml) Ud) 3 ml IH [id number] PRN; Protocol PRN Reason: Shortness of Breath Ascorbic Acid (Vitamin C 500 Mg Tab) 500 mg PO DAILY MAD[facility]AVI; Protocol Last Admin: 08/13/18 09:05 Dose: 500 mg Aspirin (Ecotrin) 81 mg PO 0800 [facility]; Protocol Last Admin: 08/13/18 07:54 Dose: 81 mg Atorvastatin Calcium (Lipitor) 10 mg PO DIN [facility]; Protocol Last Admin: 08/12/18 17:55 Dose: 10 mg Calcitriol (Rocaltrol) 0.25 mcg PO MWF [facility] Last Admin: 08/12/18 10:17 Dose: 0.25 mcg Calcium Carbonate (Oscal) 500 mg PO DAILY [facility]; Protocol Last Admin: 08/13/18 09:05 Dose: 500 mg Cholecalciferol (Vitamin D) 1,000 intlu PO DAILY [facility]; Protocol Last Admin: 08/13/18 09:05 Dose: 1,000 intlu Cyanocobalamin (Vitamin B12 1000 Mcg Tab) 1,000 mcg PO BID [facility]; Protocol Last Admin: 10/16/18 09:05 Dose: 1,000 mcg Ergocalciferol (Drisdol 50,000 Intl Units Cap) 1 cap PO Q7D [facility] Last Admin: 08/08/18 09:45 Dose: 1 cap Furosemide (Lasix) 40 mg PO DAILY [facility]; Protocol Last Admin: 08/13/18 09:05 Dose: 40 mg Furosemide (Lasix) 20 mg PO DIN M[facility]AVI Last Admin: 08/12/18 18:01 Dose: 20 mg Heparin Sodium (Porcine) (Heparin) 5,000 units SC Q12H [facility]; Protocol Last Admin: 08/13/18 05:32 Dose: 5,000 units Insulin Human Regular (Humulin R Low) 0 units SC ACHS [facility]; Protocol Last Admin: 08/13/18 06:44 Dose: Not Given Isosorbide Mononitrate (Imdur) 60 mg PO 0600 M[facility]; Protocol Last Admin: 08/13/18 05:32 Dose: 60 mg Lisinopril (Zestril) 20 mg PO DAILY [facility]; Protocol Metoprolol Tartrate (Lopressor) 100 mg PO BRKDIN [facility]; Protocol Last Admin: 08/13/18 07:55 Dose: 100 mg Multivitamins (Thera Tab) 1 tab PO 0800 M[facility]AVI; Protocol Last Admin: 08/13/18 07:54 Dose: 1 tab Oxycodone/Acetaminophen (Percocet 5/325 Mg Tab) 1 tab PO Q6H PRN PRN Reason: Pain, moderate (4-7) Stop: 08/15/18 19:44 Last Admin: 08/12/18 20:00 Dose: 1 tab Pantoprazole Sodium (Protonix Ec Tab) 40 mg PO 0600 M[facility]I; Protocol Last Admin: 08/13/18 06:57 Dose: 40 mg Primidone (Mysoline) 50 mg PO HS [facility]; Protocol Last Admin: 08/12/18 21:20 Dose: 50 mg - Labs Labs: 08/13/18 06:45 08/13/18 08:00 - Constitutional Appears: Well, Non-toxic, No Acute Distress - Head Exam Head Exam: ATRAUMATIC, NORMOCEPHALIC - Extremities Exam Additional comments: Lower extremity focused exam: Vasc: DP 1/4, PT 1/4 bilaterally, CFT <3 seconds to digits, TG warm to warm, edema resolving Ortho: Partial left hallux amputation and second digit amputation. Rigid hammertoe contractures to lesser digits on the R foot Neuro: Gross sensation intact, protective sensation absent Derm: Left plantar submetatarsal head 1 ulceration; resolved. No erythema, no cellulitis, no clinical signs of infection - Neurological Exam Neurological Exam: Alert, Awake, Oriented x3 - Psychiatric Exam Psychiatric exam: Normal Affect, Normal Mood Assessment and Plan - Assessment and Plan (Free Text) Assessment: 73 yo female with left plantar submetatarsal head 1 ulceration; resolved Plan: Patient seen and evaluated at bedside, plan discussed in detail with Dr. Cortés Optifoam dressing applied to plantar submet-1 area for padding during physical therapy; Patient stable from podiatry standpoint L foot x-ray (07/31); No OM appreciated L foot wound culture (07/30): coagulase neg staphylococcus F/U in Dr. Cortés's in office upon d/c
--- NOTE | 2018-08-13 12:39 | CP.PCM.PN ---
Subjective - Date & Time of Evaluation Date of Evaluation: 08/20/18 Time of Evaluation: 12:57 - Subjective Subjective: Talia Ratliff DO, PGY-2: Nephrology Progress Note Patient was seen and examined at bedside. She denies any chest pain, nausea, vomiting, or swelling. Nursing reports no adverse events. Objective - Vital Signs/Intake and Output Vital Signs (last 24 hours): Temp Pulse Resp BP Pulse Ox 97.5 F L 77 18 124/73 99 08/12/18 16:00 08/13/18 07:55 08/12/18 16:00 08/13/18 09:05 08/12/18 16:00 Intake and Output: 08/13/18 08/13/18 06:59 18:59 Intake Total 420 Output Total 1000 Balance -580 - Medications Medications: Current Medications Acetaminophen (Tylenol 325mg Tab) 650 mg PO Q6H PRN; Protocol PRN Reason: Pain, Mild (1-3) Last Admin: 08/11/18 14:43 Dose: 650 mg Albuterol/Ipratropium (Duoneb 3 Mg/0.5 Mg (3 Ml) Ud) 3 ml IH [id number] PRN; Protocol PRN Reason: Shortness of Breath Ascorbic Acid (Vitamin C 500 Mg Tab) 500 mg PO DAILY [facility]; Protocol Last Admin: 08/13/18 09:05 Dose: 500 mg Aspirin (Ecotrin) 81 mg PO 0800 [facility]; Protocol Last Admin: 08/13/18 07:54 Dose: 81 mg Atorvastatin Calcium (Lipitor) 10 mg PO DIN [facility]; Protocol Last Admin: 08/12/18 17:55 Dose: 10 mg Calcitriol (Rocaltrol) 0.25 mcg PO MWF [facility] Last Admin: 08/12/18 10:17 Dose: 0.25 mcg Calcium Carbonate (Oscal) 500 mg PO DAILY [facility]; Protocol Last Admin: 08/13/18 09:05 Dose: 500 mg Cholecalciferol (Vitamin D) 1,000 intlu PO DAILY [facility]; Protocol Last Admin: 08/13/18 09:05 Dose: 1,000 intlu Cyanocobalamin (Vitamin B12 1000 Mcg Tab) 1,000 mcg PO BID [facility]; Protocol Last Admin: 08/13/18 09:05 Dose: 1,000 mcg Ergocalciferol (Drisdol 50,000 Intl Units Cap) 1 cap PO Q7D [facility] Last Admin: 08/08/18 09:45 Dose: 1 cap Furosemide (Lasix) 40 mg PO DAILY [facility]; Protocol Last Admin: 08/13/18 09:05 Dose: 40 mg Furosemide (Lasix) 20 mg PO DIN [facility] Last Admin: 08/12/18 18:01 Dose: 20 mg Heparin Sodium (Porcine) (Heparin) 5,000 units SC Q12H [facility]; Protocol Last Admin: 08/13/18 05:32 Dose: 5,000 units Insulin Human Regular (Humulin R Low) 0 units SC ACHS [facility]; Protocol Last Admin: 08/13/18 12:11 Dose: 2 unit Isosorbide Mononitrate (Imdur) 60 mg PO 0600 [facility]; Protocol Last Admin: 08/13/18 05:32 Dose: 60 mg Lisinopril (Zestril) 10 mg PO DAILY [facility]; Protocol Metoprolol Tartrate (Lopressor) 100 mg PO BRKDIN [facility]; Protocol Last Admin: 08/13/18 07:55 Dose: 100 mg Multivitamins (Thera Tab) 1 tab PO 0800 [facility]; Protocol Last Admin: 08/13/18 07:54 Dose: 1 tab Oxycodone/Acetaminophen (Percocet 5/325 Mg Tab) 1 tab PO Q6H PRN PRN Reason: Pain, moderate (4-7) Stop: 08/15/18 19:44 Last Admin: 08/12/18 20:00 Dose: 1 tab Pantoprazole Sodium (Protonix Ec Tab) 40 mg PO 0600 [facility]; Protocol Last Admin: 08/13/18 06:57 Dose: 40 mg Primidone (Mysoline) 50 mg PO HS [facility]; Protocol Last Admin: 08/12/18 21:20 Dose: 50 mg - Labs Labs: 08/13/18 06:45 08/13/18 08:00 - Constitutional Appears: Well, Non-toxic - Head Exam Head Exam: ATRAUMATIC, NORMOCEPHALIC - Eye Exam Eye Exam: EOMI, Normal appearance - ENT Exam ENT Exam: Mucous Membranes Moist, Normal Oropharynx - Neck Exam Neck Exam: Normal Inspection - Respiratory Exam Respiratory Exam: Clear to Ausculation Bilateral, NORMAL BREATHING PATTERN. absent: Accessory Muscle Use - Cardiovascular Exam Cardiovascular Exam: RRR, +S1, +S2 - GI/Abdominal Exam GI & Abdominal Exam: Soft, Normal Bowel Sounds - Extremities Exam Extremities Exam: Normal Inspection. absent: Calf Tenderness - Neurological Exam Neurological Exam: Alert, Awake, Oriented x3 - Psychiatric Exam Psychiatric exam: Normal Affect, Normal Mood - Skin Skin Exam: Dry, Intact, Normal Color, Warm Assessment and Plan (1) VALE (acute kidney injury) Status: Acute (2) Hyperkalemia Assessment & Plan: Lisinopril 10 mg daily Low K diet: counselled patient on avoiding foods high in Potassium including potatos, citrus fruit, bannanas patient to get repeat BMP within one week Status: Acute (3) Hypertensive CKD (chronic kidney disease) Assessment & Plan: Continue with current treatment. Status: Acute (4) CHF (congestive heart failure) Assessment & Plan: Patient advised to continue Lasix 40 mg in morning and 20 mg in evening; however, if she notices any increase in her weight and/or swelling she should take 40 mg in the evening . Status: Chronic (5) Hypoparathyroidism Assessment & Plan: continue calcitriol Status: Acute - Assessment and Plan (Free Text) Plan: Reviewed and discussed with attending physician Dr. Cedeno
[2018-08-13 16:22] VITALS: PULSE 83
--- NOTE | 2018-08-13 17:20 | CP.PCM.DIS ---
<Tiffany Egan - Last Filed: 08/13/18 17:14> Provider - Provider Date of Admission: 08/05/18 18:07 Attending physician: Sofía Pablo MD Primary care physician: Yariel Flannery MD Consults: Dr. Flash Flannery Time Spent in preparation of Discharge (in minutes): 45 Hospital Course - Lab Results Lab Results: Most Recent Lab Values WBC 6.8 10^3/ul (4.5-11.0) 08/13/18 06:45 RBC 3.54 10^6/uL (3.5-6.1) 08/13/18 06:45 Hgb 10.6 g/dL (12.0-16.0) L 08/13/18 06:45 Hct 33.3 % (36.0-48.0) L 08/13/18 06:45 MCV 94.1 fl (80.0-105.0) 08/13/18 06:45 MCH 29.9 pg (25.0-35.0) 08/13/18 06:45 MCHC 31.8 g/dl (31.0-37.0) 08/13/18 06:45 RDW 14.5 % (11.5-14.5) 08/13/18 06:45 Plt Count 54 10^3/uL (120.0-450.0) L 08/13/18 06:45 MPV 10.3 fl (7.0-11.0) 08/13/18 06:45 Gran % 72.7 % (50.0-68.0) H 08/13/18 06:45 Lymph % (Auto) 14.0 % (22.0-35.0) L 08/13/18 06:45 Clay % (Auto) 9.9 % (1.0-6.0) H 08/13/18 06:45 Eos % (Auto) 2.8 % (1.5-5.0) 08/13/18 06:45 Baso % (Auto) 0.6 % (0.0-3.0) 08/13/18 06:45 Gran # 4.94 (1.4-6.5) 08/13/18 06:45 Lymph # (Auto) 1.0 (1.2-3.4) L 08/13/18 06:45 Clay # (Auto) 0.7 (0.1-0.6) H 08/13/18 06:45 Eos # (Auto) 0.2 (0.0-0.7) 08/13/18 06:45 Baso # (Auto) 0.04 K/mm3 (0.0-2.0) 08/13/18 06:45 Sodium 133 mmol/L (132-148) 08/13/18 08:00 Potassium 5.0 mmol/L (3.6-5.0) 08/13/18 08:00 Chloride 101 mmol/L (98-107) 08/13/18 08:00 Carbon Dioxide 24 mmol/L (21-33) 08/13/18 08:00 Anion Gap 13 (10-20) 08/13/18 08:00 BUN 57 mg/dL (7-21) H 08/13/18 08:00 Creatinine 1.8 mg/dl (0.7-1.2) H 08/13/18 08:00 Est GFR ( Amer) 33 08/13/18 08:00 Est GFR (Non-Af Amer) 28 08/13/18 08:00 POC Glucose (mg/dL) 202 mg/dL (65-110) H 08/13/18 10:54 Random Glucose 140 mg/dL (70-110) H 08/13/18 08:00 Calcium 9.1 mg/dL (8.4-10.5) 08/13/18 08:00 Total Bilirubin 0.4 mg/dL (0.2-1.3) 08/13/18 08:00 AST 23 U/L (14-36) 08/13/18 08:00 ALT 28 U/L (7-56) 08/13/18 08:00 Alkaline Phosphatase 103 U/L (38-126) 08/13/18 08:00 Total Protein 6.6 g/dL (5.8-8.3) 08/13/18 08:00 Albumin 3.7 g/dL (3.0-4.8) 08/13/18 08:00 Globulin 3.0 gm/dL 08/13/18 08:00 Albumin/Globulin Ratio 1.2 (1.1-1.8) 08/13/18 08:00 - Hospital Course Hospital Course: Upon Admission Patient is a 73 F past medical history of CHF s/p AICD, CAD s/p CABG, diabetes and CKD who was admitted for systolic CHF exacerbation and community acquired pneumonia. Patient's EF was 30.8 on echocardiogram. Cardiology was consulted and patient was started on milirinone drip and lasix 40mg IVP bid for exacerbation of chf. Podiatry was consulted for foot ulcer on the left extremity. Wound was cleaned by podiatry due to purulence expressed from wound and ID started patient on a 10 day course of zyvox and azactam. Nephrology was consulted for worsening asymptomatic hyponatremia and VALE. Nephro changed lasix to po because it was believed the VALE was due to aggressive diuresis. Nephro switched diuretics to loop diuretic in setting of hyponatremia and fluid restriction was placed of 1500. Daily weights and strict Is/Os were monitored. 1x dose of tolvaptan was administered due to continued hyponatremia. Patient hyponatremic but likely due to difficulties with fluid restriction secondary to IV abx which will be completed after a 10 day course. Patient was stable and subsequently transfered to TCU as patient is asymptomatic in terms of hyponatremia. Hospital Course In TCU, pt was treated by PT for conditioning. ID continued to follow patient in TCU. Podiatry continued to follow patient for L foot wound. Xrays showed no signs of osteomyelitis, wound cultures grew coagulase negative staph. She completed her 10 day course of antibiotics on 08/09/18, with resolution of pneumonia. Nephrology continued to follow patient in TCU for VALE on CKD and continued hyponatremia. She was continued on calcitriol 0.25 mcg MWF, calcium carbonate, Vit D and 50K weekly of Ergocalciferol. She was on fluid restrictions, lasix 40 in am and 20 in pm. Her sodium trended up and patient leg swelling and breathing improved significantly. While in TCU she also had hyperkalemia. She was given 5 U Insulin and Kayexelate and her Zestril was held. Hyperkalemia resolved the next day (K 5.0). She is asymptomatic and stable for discharge. Discharge Plan Patient is stable for discharge to home as per Dr. Pablo. Patient is educated to followup with Dr. Flannery, Dr. Vidales, and Dr. Cedeno within 3-5 days of discharge from hospital. Patient is educated to continue all of the medications as reconciled in the discharge plan. Patient is educated to return to hospital if symptoms worsen or recur. Patient understands the plan as above and agrees. Disclaimer: Written above is a synopsis of patient's current hospital admission. For full report refer to EMR. Discharge Exam - Head Exam Head Exam: ATRAUMATIC, NORMOCEPHALIC - Eye Exam Eye Exam: EOMI, Normal appearance. absent: Nystagmus, Scleral icterus - Respiratory Exam Respiratory Exam: NORMAL BREATHING PATTERN. absent: Rales, Rhonchi, Wheezes, Respiratory Distress - Cardiovascular Exam Cardiovascular Exam: REGULAR RHYTHM, +S1, +S2. absent: Bradycardia, Tachycardia - GI/Abdominal Exam GI & Abdominal Exam: Normal Bowel Sounds, Soft. absent: Diminished Bowel Sounds, Distended, Firm, Guarding, Pulsatile Mass, Rebound, Rigid, Tenderness Additional comments: ielostomy on right side of abdomen - Neurological Exam Neurological exam: Alert, Oriented x3 - Psychiatric Exam Psychiatric exam: Normal Affect, Normal Mood - Skin Skin Exam: Intact, Normal Color Discharge Plan - Discharge Medications Prescriptions: RX: Ascorbic Acid [Vitamin C 500 mg Tab] 500 mg PO DAILY #14 tab RX: Atorvastatin [Lipitor] 10 mg PO DIN #14 tab RX: Calcitriol [Rocaltrol] 0.25 mcg PO MWF #14 sgl RX: Calcium Carbonate [Oscal] 500 mg PO DAILY #14 tab RX: Cholecalciferol [Vitamin D 1000 IU] 1,000 intlu PO DAILY #14 tab RX: Cyanocobalamin [Vitamin B12 1000 mcg Tab] 1,000 mcg PO BID #28 tab RX: Ergocalciferol [Drisdol 50,000 Intl Units Cap] 1 cap PO Q7D #2 cap RX: Furosemide [Lasix] 20 mg PO DIN #14 tab RX: Furosemide [Lasix] 40 mg PO DAILY #14 tab RX: Isosorbide Mononitrate [Imdur] 60 mg PO 0600 #14 tab RX: Lisinopril [Zestril] 10 mg PO DAILY #14 tab RX: Metoprolol Tartrate [Lopressor] 100 mg PO BRKDIN #28 tab RX: oxyCODONE/Acetaminophen [Percocet 5/325 mg Tab] 1 tab PO Q6H PRN #12 tab PRN Reason: Pain, Severe (8-10) - Follow Up Plan Condition: GOOD Disposition: HOME/ ROUTINE Instructions: Heart Failure, Adult (DC), Pneumonia, Adult (DC), Diabetes Type 2 (DC), Foot Care for Diabetics, Hyperkalemia (DC), Hyperkalemia (GEN) Additional Instructions: 1. Patient is stable for discharge to home as per Dr. Pablo. 2. Patient should followup with the following doctors within one week of discharge: Dr. Vidales (senior software manager), Dr. Flannery (Primary Medical Doctor), and Dr. Cedeno (Machine Or Machinery Mechanic) for continued care as patient has multiple medical issues that require technician terminal and repeater management. 3. Patient will continue her home Aspiring 81mg by mouth once daily, Oxycodone 5/325mg as needed, and Primidone 50mg by mouth at night. Patient will be taking prescribed the medications as followed: Lasix 20mg at night Lasix 40mg daily once in morning Imdur 60mg daily once in morning Lisinopril 10mg daily once in morning Lopressor 100mg twice daily 4. Patient will return to hospital if symptoms worsen or recur. 5. Patient understands the plan as above and agrees. Referrals: Yariel Flannery MD [Primary Care Provider] - Derek Cedeno MD [Staff Provider] - Vinnie Vidales MD [Staff Provider] - <Sofía Pablo - Last Filed: 08/14/18 08:46> Provider - Provider Date of Admission: 08/05/18 18:07 Attending physician: Sofía Pablo MD Primary care physician: Yariel Flannery MD Hospital Course - Lab Results Lab Results: Most Recent Lab Values WBC 6.8 10^3/ul (4.5-11.0) 08/13/18 06:45 RBC 3.54 10^6/uL (3.5-6.1) 08/13/18 06:45 Hgb 10.6 g/dL (12.0-16.0) L 08/13/18 06:45 Hct 33.3 % (36.0-48.0) L 08/13/18 06:45 MCV 94.1 fl (80.0-105.0) 08/13/18 06:45 MCH 29.9 pg (25.0-35.0) 08/13/18 06:45 MCHC 31.8 g/dl (31.0-37.0) 08/13/18 06:45 RDW 14.5 % (11.5-14.5) 08/13/18 06:45 Plt Count 54 10^3/uL (120.0-450.0) L 08/13/18 06:45 MPV 10.3 fl (7.0-11.0) 08/13/18 06:45 Gran % 72.7 % (50.0-68.0) H 08/13/18 06:45 Lymph % (Auto) 14.0 % (22.0-35.0) L 08/13/18 06:45 Clay % (Auto) 9.9 % (1.0-6.0) H 08/13/18 06:45 Eos % (Auto) 2.8 % (1.5-5.0) 08/13/18 06:45 Baso % (Auto) 0.6 % (0.0-3.0) 08/13/18 06:45 Gran # 4.94 (1.4-6.5) 08/13/18 06:45 Lymph # (Auto) 1.0 (1.2-3.4) L 08/13/18 06:45 Clay # (Auto) 0.7 (0.1-0.6) H 08/13/18 06:45 Eos # (Auto) 0.2 (0.0-0.7) 08/13/18 06:45 Baso # (Auto) 0.04 K/mm3 (0.0-2.0) 08/13/18 06:45 Sodium 133 mmol/L (132-148) 08/13/18 08:00 Potassium 5.0 mmol/L (3.6-5.0) 08/13/18 08:00 Chloride 101 mmol/L (98-107) 08/13/18 08:00 Carbon Dioxide 24 mmol/L (21-33) 08/13/18 08:00 Anion Gap 13 (10-20) 08/13/18 08:00 BUN 57 mg/dL (7-21) H 08/13/18 08:00 Creatinine 1.8 mg/dl (0.7-1.2) H 08/13/18 08:00 Est GFR ( Amer) 33 08/13/18 08:00 Est GFR (Non-Af Amer) 28 08/13/18 08:00 POC Glucose (mg/dL) 202 mg/dL (65-110) H 08/13/18 10:54 Random Glucose 140 mg/dL (70-110) H 08/13/18 08:00 Calcium 9.1 mg/dL (8.4-10.5) 08/13/18 08:00 Total Bilirubin 0.4 mg/dL (0.2-1.3) 08/13/18 08:00 AST 23 U/L (14-36) 08/13/18 08:00 ALT 28 U/L (7-56) 08/13/18 08:00 Alkaline Phosphatase 103 U/L (38-126) 08/13/18 08:00 Total Protein 6.6 g/dL (5.8-8.3) 08/13/18 08:00 Albumin 3.7 g/dL (3.0-4.8) 08/13/18 08:00 Globulin 3.0 gm/dL 08/13/18 08:00 Albumin/Globulin Ratio 1.2 (1.1-1.8) 08/13/18 08:00 Attending/Attestation - Attestation I have personally seen and examined this patient.: Yes I have fully participated in the care of the patient.: Yes I have reviewed all pertinent clinical information, including history, physical exam and plan: Yes Notes (Text): 08/14/18 08:42 Medical record note made by the resident after discussion with my direction and input after the patient was personally seen and examined by me. I have reviewed the chart and agree that the record accurately reflects by personal performance of the history, physical exam, data review, and medical decision-making, in the course for the patient. I have also personally directed the plan of care. 73 F, with PMH CAD s/p CABG & AICD, systolic CHF (EF 30s, 2017, RVSP 24) with End-staged dilated cardiomyopathy s/p IV home inotropic therapy, diabetes with L toe amputation, AAA repair, s/p colectomy due to ischemic colitis, CKD stage 4, and chronic ataxia was [place] [facility] [place] chronic systolic CHF exacerbation , pneumonia and foot infection. She was transferred to TCU for rehabilitation.She has completed IV antibiotics for Pneumonia and foot infection. Hyponatremia has improved. Hyperkalemia is resolved.Renal functions are at base line. She has been restarted on low dose of lisinopril. She will be discharged home and will follow up with PCP , cardiology and Nephrology. Management plan was discussed in detail with patient. Education was provided.
--- NOTE | 2018-08-14 03:45 | PN ---
DATE: 08/13/2018 SUBJECTIVE: The patient is seen earlier today, in no acute distress, nontoxic. PHYSICAL EXAMINATION VITAL SIGNS: Temperature is 98, blood pressure is 120/70, respiratory rate of 16. HEENT: Unremarkable. NECK: Supple. LUNGS: Have decreased breath sounds. HEART: Normal S1, S2. ABDOMEN: Soft. LABORATORY DATA: Laboratory examination reveals a white count of 6.8, hemoglobin of 10. BUN of 57, creatinine of 1.8. Chemistries reveals noted. ASSESSMENT AND PLAN: This is a 73-year-old female who was seen early this morning in transitional care in room 316, who was admitted with left leg cellulitis, right-sided community-acquired pneumonia, coronary artery disease, coronary artery bypass graft and abdominal aortic aneurysm repair, history of cholecystectomy, pacemaker placement, diabetes, completed antibiotic therapy, off of antibiotics. The patient for discharge today. We will follow with you. José Luis Trevino MD
== END 2018-08-13 16:23 | disposition home health service (06) | DRG 193 ==
LOC: TRCU 18:07
PROVIDERS: ADMIT Internal Medicine; ATTEND Internal Medicine
PROC: 3E03329 Introduction of Other Anti-infective into Peripheral Vein, Percutaneous Approach (ICD-10-PCS; 2018-08-05)
PROC: F07Z9FZ Gait Training/Functional Ambulation Treatment using Assistive, Adaptive, Supportive or Protective Equipment (ICD-10-PCS; principal; 2018-08-07)
PROC: F07Z5FZ Bed Mobility Treatment using Assistive, Adaptive, Supportive or Protective Equipment (ICD-10-PCS; 2018-08-07)
PROC: F07Z8FZ Transfer Training Treatment using Assistive, Adaptive, Supportive or Protective Equipment (ICD-10-PCS; 2018-08-07)
PROC: F07L6YZ Therapeutic Exercise Treatment of Musculoskeletal System - Lower Back / Lower Extremity using Other Equipment (ICD-10-PCS; 2018-08-07)
PROC: F08Z1FZ Dressing Techniques Treatment using Assistive, Adaptive, Supportive or Protective Equipment (ICD-10-PCS; 2018-08-07)
PROC: F08Z2FZ Grooming/Personal Hygiene Treatment using Assistive, Adaptive, Supportive or Protective Equipment (ICD-10-PCS; 2018-08-07)
PROC: F08Z0FZ Bathing/Showering Techniques Treatment using Assistive, Adaptive, Supportive or Protective Equipment (ICD-10-PCS; 2018-08-07)
DX: J18.9 Pneumonia, unspecified organism (principal); I50.23 Acute on chronic systolic (congestive) heart failure; I13.0 Hypertensive heart and chronic kidney disease with heart failure and stage 1 through stage 4 chronic kidney disease, or unspecified chronic kidney disease; E87.1 Hypo-osmolality and hyponatremia; I42.0 Dilated cardiomyopathy; N18.4 Chronic kidney disease, stage 4 (severe); N17.9 Acute kidney failure, unspecified; N25.81 Secondary hyperparathyroidism of renal origin; L03.116 Cellulitis of left lower limb; E11.621 Type 2 diabetes mellitus with foot ulcer; L97.529 Non-pressure chronic ulcer of other part of left foot with unspecified severity; R27.0 Ataxia, unspecified; I25.10 Atherosclerotic heart disease of native coronary artery without angina pectoris; E11.22 Type 2 diabetes mellitus with diabetic chronic kidney disease; E87.5 Hyperkalemia; D64.9 Anemia, unspecified; E83.51 Hypocalcemia; Z79.2 Long term (current) use of antibiotics; Z89.422 Acquired absence of other left toe(s); Z89.412 Acquired absence of left great toe; Z95.810 Presence of automatic (implantable) cardiac defibrillator; Z79.4 Long term (current) use of insulin; Z95.1 Presence of aortocoronary bypass graft

== ENCOUNTER 2018-09-22 18:00 | Inpatient (IN) | payer MEDICARE ==
[2018-09-22 18:00] VITALS: PULSE 92
[2018-09-22 19:12] LABS: HEMOGLOBIN 13.1 g/dL (12.0-16.0); MEAN CELL VOLUME 94.5 fl (80.0-105.0); MEAN CORPUSCULAR HEMOGLOBIN 29.8 pg (25.0-35.0); MEAN CORPUSCULAR HGB CONC 31.5 g/dl (31.0-37.0); MEAN PLATELET VOLUME 10.4 fl (7.0-11.0); RBC 4.4 10^6/uL (3.5-6.1); RED CELL DISTRIBUTION WIDTH 16.6 % (11.5-14.5); WHITE BLOOD COUNT 6.8 10^3/uL (4.5-11.0)
[2018-09-22 19:34] LABS: ALB/GLOB RATIO 1.1 (1.1-1.8); ALBUMIN 3.3 g/dL (3.0-4.8); CALCIUM 8.9 mg/dL (8.4-10.5)
[2018-09-22] MEDS ORDERED: Sodium Bicarbonate (8.4%) 50 Meq Syringe IVP ONE (19:41)
[2018-09-22] MEDS ORDERED: Insulin Regular 1 UNITS/0.01 ML ML SC STA (19:43)
[2018-09-22] MEDS ORDERED: Albuterol 0.083% Inhal Sol (2.5 mg/3 mL) UD INH STA (19:44)
[2018-09-22] MEDS ORDERED: Insulin Regular 1 UNITS/0.01 ML ML IVP STA (20:28)
[2018-09-22] MEDS ORDERED: Dextrose 50% SYRINGE Inj (50 ml) IVP STA (20:29)
[2018-09-22] MEDS ORDERED: Sod Polystyrene Sulf 15 gm/60 ml Susp PO STA (20:29)
--- NOTE | 2018-09-22 21:28 | ED PDOC ---
Arrival/HPI - General Chief Complaint: Weakness/Neurological Deficit Time Seen by Provider: 09/22/18 18:10 Historian: Patient - History of Present Illness Narrative History of Present Illness (Text): 09/22/18 22:54 Pt is a 73 yo F with pmhx of CAD (s/p CABG), DM, CHF s/p AICD placement, IDDM, neuropathy, PVD, HTN, HLD, ileostomy, chronic hip and knee pain presents to the ED via EMS c/o bilateral leg weakness x 1 day. Pt states she has had leg weakness for the last 8 months, but it has worsened today. Per patient, she is unable to ambulate or leave the house without her knees giving out. Today she had an episode where she was unable to get off the toilet without help, prompting her to call EMS. Associated intermittent bilateral knee and lower leg pain. Takes percocet at baseline for pain, which has not helped her symptoms. Denies fever, chills, chest pain, SOB, dizziness, back pain, bowel/bladder incontinence, headache, dizziness, numbness, paresthesias, urinary symptoms, or any other associated complaints. Past Medical History - Provider Review Nursing Documentation Reviewed: Yes - Infectious Disease Hx of Infectious Diseases: None - Tetanus Immunization Tetanus Immunization: Unknown - Cardiac Hx Cardiac Disorders: Yes (CABG; AICD) Hx Congestive Heart Failure: Yes Hx Hypertension: Yes - Pulmonary Hx Respiratory Disorders: No - Neurological Hx Neurological Disorder: No - HEENT Hx Cataracts: Yes (bilateral laser sx) - Renal Hx Renal Disorder: Yes - Endocrine/Metabolic Hx Diabetes Mellitus Type 2: Yes - Hematological/Oncological Hx Blood Transfusions: No Hx Blood Transfusion Reaction: No - Integumentary Other/Comment: STage 3 sacral ulcers. BLE redness w/ scattered scabs. Under breasts folds redness. Bilateral under belly Folds redness skin excoriated - Musculoskeletal/Rheumatological Hx Falls: No - Gastrointestinal Hx Gastrointestinal Disorders: (umbilical hernia ileostomy) - Genitourinary/Gynecological Hx Genitourinary Disorders: (external purwick catheter) Hx Reproductive Disorders: No - Psychiatric Hx Psychophysiologic Disorder: No Hx Substance Use: No - Surgical History Hx Abdominal Aortic Aneurysm Repair: Yes Hx Eye Surgery: Yes (Cataracts laser) - Anesthesia Hx Anesthesia: Yes Hx Anesthesia Reactions: No Hx Malignant Hyperthermia: No - Suicidal Assessment Feels Threatened In Home Enviroment: No Family/Social History - Physician Review Nursing Documentation Reviewed: Yes Family/Social History: No Known Family HX Smoking Status: Former Smoker Hx Alcohol Use: No Hx Substance Use: No Hx Substance Use Treatment: No Allergies/Home Meds Allergies/Adverse Reactions: Allergies amoxicillin [From Augmentin] Allergy (Verified 07/29/18 20:50) ANAPHYLAXIS clavulanic acid [From Augmentin] Allergy (Verified 07/29/18 20:50) ANAPHYLAXIS doxycycline Allergy (Verified 04/29/18 21:11) ANAPHYLAXIS shellfish derived Allergy (Verified 04/29/18 21:11) ANAPHYLAXIS Review of Systems - Physician Review All systems were reviewed & negative as marked: Yes - Review of Systems Constitutional: Normal. absent: Fatigue, Fevers Eyes: Normal. absent: Vision Changes ENT: Normal. absent: Hearing Changes, Sinus Congestion Respiratory: Normal. absent: SOB, Cough Cardiovascular: Normal. absent: Chest Pain, Palpitations Gastrointestinal: Normal. absent: Abdominal Pain, Nausea, Vomiting Genitourinary Female: Normal. absent: Dysuria, Frequency Musculoskeletal: Normal, Arthralgias (knee pain). absent: Back Pain, Neck Pain Skin: Normal, Skin Lesions (right ankle, left grover). absent: Rash, Cellulitis Neurological: Normal, Focal Weakness (bilateral lower extremities), Gait Changes. absent: Headache, Dizziness, Speech Changes, Facial Droop, Other (paresthesias, numbness) Endocrine: Normal. absent: Diaphoresis Hemo/Lymphatic: Normal Psychiatric: Normal Physical Exam Vital Signs Reviewed: Yes Vital Signs Temp Pulse Resp BP Pulse Ox 09/22/18 18:00 97.8 F 76 18 130/78 99 Temperature: Afebrile Blood Pressure: Normal Pulse: Regular Respiratory Rate: Normal Appearance: Positive for: Well-Appearing, Non-Toxic, Comfortable Pain Distress: None Mental Status: Positive for: Alert and Oriented X 3 Finger Stick Blood Glucose: 134 - Systems Exam Head: Present: Atraumatic, Normocephalic Pupils: Present: PERRL Extroacular Muscles: Present: EOMI Conjunctiva: Present: Normal Mouth: Present: Moist Mucous Membranes Neck: Present: Normal Range of Motion Respiratory/Chest: Present: Clear to Auscultation, Good Air Exchange. No: Respiratory Distress, Accessory Muscle Use, Decreased Breath Sounds, Rales, Retracting, Rhonchi Cardiovascular: Present: Regular Rate and Rhythm, Murmurs (systolic murmur ), Normal S1, S2, Peripheal Pulses Present Abdomen: Present: Normal Bowel Sounds, Other (ileostomy with stool in bag). No: Tenderness, Distention, Peritoneal Signs Back: No: Normal Inspection (healing decubitus ulcer), CVA Tenderness, Paraspinal Tenderness Upper Extremity: Present: Normal Inspection, Normal ROM, NORMAL PULSES, Capillary Refill < 2s. No: Cyanosis, Edema, Tenderness, Swelling Lower Extremity: Present: Edema (mild bilateral ankles and feet), CALF TENDERNESS (right sided), NORMAL PULSES, Tenderness (right calf), Erythema (left lower leg, pt states per baseline), Capillary Refill < 2 s, Other (well-healing wounds to right ankleand left grover). No: Cyanosis, Normal ROM (decreased at hips and knees bilaterally), Temperature Abnormalties Neurological: Present: GCS=15, CN II-XII Intact, Speech Normal, Motor Func Grossly Intact, Normal Sensory Function, Memory Normal. No: Gait Normal (unable to assess) Skin: Present: Warm, Dry, Normal Color. No: Rashes Psychiatric: Present: Alert, Oriented x 3, Normal Insight, Normal Concentration, Normal Affect, Normal Mood Medical Decision Making ED Course and Treatment: Initial Plan: * CBC, CMP * Lumbar Spine XR * Bilateral Venous Duplex Legs * Bilateral Knee XR * Reassess and Disposition CBC: wnl CMP: Potassium 5.8, BUN 35, Creatinine 2.[address] Ozuna, who recommends insulin, kayexelate, calcium gluconate. Will get EKG Will give 4 units IV insulin, 50ml 50 dextrose, 30g kayexelate, and 1g calcium gluconate EKG: no EKG changes associated with hyperkalemia Bilateral lower extremity duplex negative for DVT Knee Xrays show degenerative changes, similar to prior Xrays Lumbar CT: IMPRESSION: 1. Moderate anterior wedging compression fracture deformity involving T12 vertebral body with some retropulsion of posterior aspect of the vertebral body resulting in canal stenosis. 2. Aortobiiliac graft stent is in place which excludes a large distal abdominal aortic aneurysm. 3. Multiple bilateral renal cysts. 4. Non-obstructing calculus noted in the superior pole of the right kidney. 5. Multilevel spondylosis as above. At T12-L1, broad based disc osteophyte complex present in conjunction with retropulsion of T12 vertebral body result in moderate to severe bilateral foraminal stenosis and moderate canal stenosis. 22:15 Spoke with medical billing coordinator Nicholas and Dr. Quinones, who accept patient for admission to telemetry floor with diagnoses of hyperkalemia, bilateral leg weakness, and renal failure. Plan of care discussed with patient and family, who agree and understand necess ity for admission to hospital. Patient with stable vitals at this time. - Lab Interpretations Lab Results: 09/22/18 18:55 09/22/18 18:55 Lab Results 09/22/18 18:55: Sodium 137, Potassium 5.8 H*, Chloride 110 H, Carbon Dioxide 18 L, Anion Gap 14, BUN 35 H, Creatinine 2.1 H, Est GFR ( Amer) 28, Est GFR (Non-Af Amer) 23, Random Glucose 131 H, Calcium 8.9, Total Bilirubin 0.4, AST 21, ALT 22, Alkaline Phosphatase 85, Total Protein 6.2, Albumin 3.3, Globulin 2.9, Albumin/Globulin Ratio 1.1 09/22/18 18:55: WBC 6.8, RBC 4.40, Hgb 13.1 D, Hct 41.6, MCV 94.5, MCH 29.8, MCHC 31.5, RDW 16.6 H, Plt Count 153, MPV 10.4 I have reviewed the lab results: Yes - RAD Interpretation Narrative RAD Interpretations (Text): Exam Date: Sep 22, 2018 7:09:[address] of lumbar spine w/o contrast reviewed by radiologist, shows: COMMENTS: The paraspinal soft tissues are unremarkable. There are no lytic or blastic lesions. Note is made of moderate anterior wedging compression fracture deformity involving T12 vertebral body with some retropulsion of posterior aspect of the vertebral body resulting in canal stenosis. Aortobiiliac graft stent is in place which excludes a large distal abdominal aortic aneurysm. No acute fracture is identified. Multiple bilateral renal cysts are present. There is a 6 x 3 mm non-obstructing calculus noted in the superior pole of the right kidney. The uterus and ovaries are atrophic. Evaluation of individual levels present the following: L5-S1, broad based herniated disc is seen measuring up to 4 mm. There is moderate to severe bilateral foraminal stenosis. Canal is moderately stenotic. Bilateral hypertrophic facet disease is seen. L4-L5, broad based herniated disc is seen across the disc space measures up to 5 mm. There is moderate to severe bilateral foraminal stenosis and severe canal stenosis. Hypertrophic facet disease and ligamentum flavum hypertrophy contribute. L3-L4, broad based herniated disc is seen across the disc space measures up to 4 mm. There is moderate bilateral foraminal stenosis. Canal is mildly to moderately stenotic. Hypertrophic facet disease and ligamentum flavum hypertrophy contribute. L2-L3, broad based herniated disc is seen across the disc space measures up to 4 mm. There is moderate bilateral foraminal stenosis. Canal is mildly to moderately stenotic. Hypertrophic facet disease and ligamentum flavum hypertrophy contribute. L1-L2, broad based herniated disc is seen across the disc space measures up to 4 mm. There is moderate bilateral foraminal stenosis. Canal is mildly to moderately stenotic. Hypertrophic facet disease and ligamentum flavum hypertrophy contribute. T12-L1, there is a broad based disc osteophyte complex present in conjunction with retropulsion of T12 vertebral body result in moderate to severe bilateral foraminal stenosis and moderate canal stenosis. IMPRESSION: 1. Moderate anterior wedging compression fracture deformity involving T12 vertebral body with some retropulsion of posterior aspect of the vertebral body resulting in canal stenosis. 2. Aortobiiliac graft stent is in place which excludes a large distal abdominal aortic aneurysm. 3. Multiple bilateral renal cysts. 4. Non-obstructing calculus noted in the superior pole of the right kidney. 5. Multilevel spondylosis as above. At T12-L1, broad based disc osteophyte complex present in conjunction with retropulsion of T12 vertebral body result in moderate to severe bilateral foraminal stenosis and moderate canal stenosis. Radiology Orders: 09/22/18 18:37 LUMBAR SPINE W/O CONTRAST [CT] Stat KNEES BILATERAL [RAD] Stat 09/22/18 18:39 DUPLEX LOWER EXTRM VEIN BILAT [US] Stat Rickshaw Driver: Radiologist - EKG Interpretation EKG Interpretation (Text): 09/23/18 03:12 Rate 75; NSR; normal intervals; T wave abnormalities in V3-V5; No STEMI; No Peaked T waves or other findings consistent with hyperkalemia; similar to EKG in February of 2018. - Medication Orders Current Medication Orders: Calcium Gluconate 1,000 mg/ (Sodium Chloride) 110 mls @ 110 mls/hr IVPB ONCE ONE Stop: 09/22/18 21:44 Last Admin: 09/22/18 20:53 Dose: 110 mls/hr eMAR Start Stop Document 09/22/18 20:53 EQ (Rec: 09/22/18 20:53 EQ [id number]) Intravenous Solution Start Date 09/22/18 Start Time 20:53 Discontinued Medications Acetaminophen (Tylenol 325mg Tab) 650 mg PO STAT STA Stop: 09/22/18 21:24 Dextrose (Dextrose 50% Inj) 50 ml IVP STAT STA Stop: 09/22/18 20:30 Last Admin: 09/22/18 20:52 Dose: 50 ml IVP Administration Document 09/22/18 20:52 EQ (Rec: 09/22/18 20:52 EQ [id number]) Charges for Administration # of IVP Administrations 1 Insulin Human Regular (Humulin R) 4 units IVP STAT STA Stop: 09/22/18 20:29 Last Admin: 09/22/18 20:51 Dose: 4 unit MAR Blood Glucose Document 09/22/18 20:51 EQ (Rec: 09/22/18 20:51 EQ [id number]) Blood Glucose Finger Stick Blood Glucose (70-120) 134 IVP Administration Document 09/22/18 20:51 EQ (Rec: 09/22/18 20:51 EQ [id number]) Charges for Administration # of IVP Administrations 1 Sodium Bicarbonate (Sodium Bicarbonate 8.4% (50 Meq) Syringe) 50 meq IVP ONCE ONE Stop: 09/22/18 19:42 Last Admin: 09/22/18 20:52 Dose: 50 meq IVP Administration Document 09/22/18 20:52 EQ (Rec: 09/22/18 20:52 EQ [id number]) Charges for Administration # of IVP Administrations 1 Sodium Polystyrene Sulfonate (Kayexalate Susp) 30 gm PO STAT STA Stop: 09/22/18 20:30 Disposition/Present on Arrival - Present on Arrival Any Indicators Present on Arrival: No History of DVT/PE: No History of Uncontrolled Diabetes: No Urinary Catheter: Yes (purwick in place) History of Decub. Ulcer: Yes History Surgical Site Infection Following: None - Disposition Have Diagnosis and Disposition been Completed?: Yes Diagnosis: Hyperkalemia, Acute renal failure syndrome, Leg weakness, bilateral Disposition: HOSPITALIZED Disposition Time: 21:30 Patient Plan: Admission Condition: STABLE
[2018-09-22] MEDS ORDERED: Lactated Ringer's 1,000 ML IV SCH (23:00)
[2018-09-22] MEDS ORDERED: Sodium Chloride 0.9% 1,000 ML IV SCH (23:30)
--- NOTE | 2018-09-23 00:24 | CP.PCM.HP ---
<Gladis Peterson - Last Filed: 09/23/18 06:27> History of Present Illness - History of Present Illness History of Present Illness: Gladis Peterson, PGY-1 H&P Medicine Note for Dr. Quinones: CC: b/l leg pain Pt is a 73 yo F with pmhx of CAD (s/p CABG), DM, CHF s/p AICD placement, IDDM, neuropathy, PVD, HTN, HLD, ileostomy, chronic hip and knee pain who presents to the ED for b/l LE weakness and pain. Pt states that it started around 5PM this evening and the pt was unable to get off of her toilet. She states that she normally ambulates with a walker, but was having difficulty with it all day until the evening when she was unable to get up. She also reports that she has been having leg weakness for the past 8 months, but it has never been that bad. Pt denies falling at all during the day and states that she felt progressive weakness in her legs, but was still able to move around her house. Pt states that her had to help lift her up from the toilet and slowly brought her to the floor and called the ambulance. She states that she is still currently having b/l leg pain that is 9/10 in intensity. She states that the pain is from her knees down to her feet. She states that she is also still having some weakness in the legs but denies swelling of the legs, numbness or tinglng. She also currently denies fevers, chills, headache, lightheadedness, dizziness, chest pain, palpitations, SOB, cough, abd pain, n/v, c/d, dysuria or hematuria. Pmhx: CAD (s/p CABG), DM, CHF s/p AICD placement, IDDM, neuropathy, PVD, HTN, HLD, ileostomy, chronic hip and knee pain pshx: demetri, tonsillectomy, illeostomy, CABG Meds: All: Amox - shakes, Shellfish - eye swelling Social: quit smoking 18 years ago, was previously a 1/2 ppd x 30 yrs, denies etoh or illicit drug use Fam: Mom: HTN, DM, Breast ca. Dad: throat ca. Brother: Leukemia PMD: [place] Pharm: [employer] Present on Admission - Present on Admission Any Indicators Present on Admission: No Review of Systems - Review of Systems Review of Systems: 12 point ROS reviewed and negative except noted in HPI above. Past Patient History - Infectious Disease Hx of Infectious Diseases: None - Tetanus Immunizations Tetanus Immunization: Unknown - Past Medical History & Family History Past Medical History?: Yes - Past Social History Smoking Status: Former Smoker - CARDIAC Hx Cardiac Disorders: Yes (CABG; AICD) Hx Congestive Heart Failure: Yes Hx Hypertension: Yes - PULMONARY Hx Respiratory Disorders: No - NEUROLOGICAL Hx Neurological Disorder: No - HEENT Hx Cataracts: Yes (bilateral laser sx) - RENAL Hx Chronic Kidney Disease: Yes - ENDOCRINE/METABOLIC Hx Diabetes Mellitus Type 2: Yes - HEMATOLOGICAL/ONCOLOGICAL Hx Blood Transfusions: No Hx Blood Transfusion Reaction: No - INTEGUMENTARY Other/Comment: STage 3 sacral ulcers. BLE redness w/ scattered scabs. Under breasts folds redness. Bilateral under belly Folds redness skin excoriated - MUSCULOSKELETAL/RHEUMATOLOGICAL Hx Falls: No - GASTROINTESTINAL Hx Gastrointestinal Disorders: (umbilical hernia ileostomy) - GENITOURINARY/GYNECOLOGICAL Hx Genitourinary Disorders: (external purwick catheter) Hx Reproductive Disorders: No - PSYCHIATRIC Hx Psychophysiologic Disorder: No Hx Substance Use: No - SURGICAL HISTORY Hx Abdominal Aortic Aneurysm Repair: Yes Hx Eye Surgery: Yes (Cataracts laser) - ANESTHESIA Hx Anesthesia: Yes Hx Anesthesia Reactions: No Hx Malignant Hyperthermia: No Meds Allergies/Adverse Reactions: Allergies Allergy/AdvReac Type Severity Reaction Status Date / Time amoxicillin [From Augmentin] Allergy ANAPHYLAXIS Verified 07/29/18 20:50 clavulanic acid Allergy ANAPHYLAXIS Verified 07/29/18 20:50 [From Augmentin] doxycycline Allergy ANAPHYLAXIS Verified 04/29/18 21:11 shellfish derived Allergy ANAPHYLAXIS Verified 04/29/18 21:11 Physical Exam - Constitutional Appears: Well, Non-toxic, No Acute Distress - Head Exam Head Exam: ATRAUMATIC, NORMAL INSPECTION, NORMOCEPHALIC - Eye Exam Eye Exam: EOMI, Normal appearance, PERRL - Respiratory Exam Respiratory Exam: Decreased Breath Sounds, NORMAL BREATHING PATTERN. absent: Accessory Muscle Use, Rales, Rhonchi, Wheezes, Respiratory Distress, Stridor - Cardiovascular Exam Cardiovascular Exam: RRR, +S1, +S2, Systolic Murmur (cresendo-decrescendo murmur appreciated at R sternal border.). absent: Gallop, Rubs - GI/Abdominal Exam GI & Abdominal Exam: Normal Bowel Sounds, Soft. absent: Firm, Guarding, Te nderness Additional comments: illiostomy bag noted, fecal material noted in bad, output and air noted - Extremities Exam Extremities exam: Positive for: pedal edema (trace), tenderness, pedal pulses present (1+). Negative for: calf tenderness, joint swelling, normal inspection (pt has hx of L 1st and 2nd transmetatarsal amputation) - Back Exam Back exam: NORMAL INSPECTION. absent: CVA tenderness (L), CVA tenderness (R) Additional comments: healing decubitus ulcer - Neurological Exam Neurological exam: Alert, Oriented x3 - Psychiatric Exam Psychiatric exam: Normal Affect, Normal Mood - Skin Skin Exam: Dry, Normal Color, Warm Results - Vital Signs Recent Vital Signs: Last Vital Signs Temp 97.9 F 09/22/18 23:11 Pulse 72 09/22/18 23:11 Resp 18 09/22/18 23:11 BP 105/64 09/22/18 23:11 Pulse Ox 97 09/22/18 23:11 - Labs Result Diagrams: 09/22/18 18:55 09/22/18 18:55 Labs: Laboratory Results - last 24 hr 09/22/18 09/22/18 09/22/18 18:55 18:55 21:50 WBC 6.8 RBC 4.40 Hgb 13.1 D Hct 41.6 MCV 94.5 MCH 29.8 MCHC 31.5 RDW 16.6 H Plt Count 153 MPV 10.4 Sodium 137 Potassium 5.8 H* Chloride 110 H Carbon Dioxide 18 L Anion Gap 14 BUN 35 H Creatinine 2.1 H Est GFR ( Amer) 28 Est GFR (Non-Af Amer) 23 Random Glucose 131 H Calcium 8.9 Phosphorus Magnesium Total Bilirubin 0.4 AST 21 ALT 22 Alkaline Phosphatase 85 Total Creatine Kinase Troponin I 0.02 Total Protein 6.2 Albumin 3.3 Globulin 2.9 Albumin/Globulin Ratio 1.1 09/22/18 23:01 WBC RBC Hgb Hct MCV MCH MCHC RDW Plt Count MPV Sodium Potassium Chloride Carbon Dioxide Anion Gap BUN Creatinine Est GFR ( Amer) Est GFR (Non-Af Amer) Random Glucose Calcium Phosphorus 4.3 Magnesium 1.8 Total Bilirubin AST ALT Alkaline Phosphatase Total Creatine Kinase 30 L Troponin I Total Protein Albumin Globulin Albumin/Globulin Ratio Assessment & Plan - Assessment and Plan (Free Text) Assessment: Pt is a 73 yo F with pmhx of CAD (s/p CABG), DM, CHF s/p AICD placement, IDDM, neuropathy, PVD, HTN, HLD, ileostomy, chronic hip and knee pain who presents to the ED for b/l LE weakness and pain. U/S b/l venous doppler ordered and pre-headley read is negative for DVT. Pt was also noted to have hyperkalemia and VALE on CKD in labs. Plan: 1. Hyperkalemia 2/2 pre-existing CKD vs drug induced hyperkalemia vs Type 4 RTA: - EKG in ED showed no peaked T-waves - Pt takes lisinpril at home - In ED pt was given ca++ gluconate, kayexalate and insulin - IVF NS @ 75/hr - f/u repeat BMP - f/u Urine Na, Cl and K 2. VALE on CKD: - Cont to trend BUN/Cr - Careful hydration of NS @ 75ml/hr - Hold all nephrotoxic meds 3. Hx of CAD s/p CABG: - Cont home ASA, imdur, lopressor 4. Hx of HLD: - Cont home lipitor 5.Hx of IDDM: - ISS - HbgA1c 6. PPX: DVT: Heparin sq Case seen and discussed with Dr. Joni Peterson DO Internal Medicine Resident PGY-1 <Meir Quinones - Last Filed: 09/23/18 06:33> Results - Vital Signs Recent Vital Signs: Last Vital Signs Temp 97.8 F 09/23/18 06:00 Pulse 70 09/23/18 06:00 Resp 18 09/23/18 06:00 BP 149/92 H 09/23/18 06:00 Pulse Ox 99 09/23/18 06:00 - Labs Result Diagrams: 09/22/18 18:55 09/22/18 18:55 Labs: Laboratory Results - last 24 hr 09/22/18 09/22/18 09/22/18 18:55 18:55 21:50 WBC 6.8 RBC 4.40 Hgb 13.1 D Hct 41.6 MCV 94.5 MCH 29.8 MCHC 31.5 RDW 16.6 H Plt Count 153 MPV 10.4 Sodium 137 Potassium 5.8 H* Chloride 110 H Carbon Dioxide 18 L Anion Gap 14 BUN 35 H Creatinine 2.1 H Est GFR ( Amer) 28 Est GFR (Non-Af Amer) 23 Random Glucose 131 H Calcium 8.9 Phosphorus Magnesium Total Bilirubin 0.4 AST 21 ALT 22 Alkaline Phosphatase 85 Total Creatine Kinase Troponin I 0.02 Total Protein 6.2 Albumin 3.3 Globulin 2.9 Albumin/Globulin Ratio 1.1 09/22/18 23:01 WBC RBC Hgb Hct MCV MCH MCHC RDW Plt Count MPV Sodium Potassium Chloride Carbon Dioxide Anion Gap BUN Creatinine Est GFR ( Amer) Est GFR (Non-Af Amer) Random Glucose Calcium Phosphorus 4.3 Magnesium 1.8 Total Bilirubin AST ALT Alkaline Phosphatase Total Creatine Kinase 30 L Troponin I Total Protein Albumin Globulin Albumin/Globulin Ratio Attending/Attestation - Attestation I have personally seen and examined this patient.: Yes I have fully participated in the care of the patient.: Yes I have reviewed all pertinent clinical information: Yes Notes (Text): 09/23/18 06:32 C/O B/L LE pain, weakness and difficulty ambulating. At baseline she ambulates with a walker. Physical therapy check Vit D, B12 and folate
[2018-09-23 00:58] VITALS: BMI 26.6
[2018-09-23] MEDS ORDERED: Oxycodone/Acetaminophen 5/325 mg Tab PO STA ×2 (01:07→05:26)
[2018-09-23 07:00] LABS: ALBUMIN 2.9 g/dL (3.0-4.8); CALCIUM 8.6 mg/dL (8.4-10.5)
[2018-09-23 07:06] LABS: BASO # 0.02 K/mm3 (0.0-2.0); BASO % 0.3 % (0.0-3.0); EOS # 0.2 (0.0-0.7); GRAN # 4.8 (1.4-6.5); GRAN % 62.9 % (50.0-68.0); HEMOGLOBIN 12.4 g/dL (12.0-16.0); LYMPH # 1.9 (1.2-3.4); LYMPH % 24.8 % (22.0-35.0); MEAN CELL VOLUME 94.4 fl (80.0-105.0); MEAN CORPUSCULAR HEMOGLOBIN 29.2 pg (25.0-35.0); MEAN CORPUSCULAR HGB CONC 30.9 g/dl (31.0-37.0); MEAN PLATELET VOLUME 9.8 fl (7.0-11.0); MONO # 0.7 (0.1-0.6); RBC 4.25 10^6/uL (3.5-6.1); RED CELL DISTRIBUTION WIDTH 16.7 % (11.5-14.5); WHITE BLOOD COUNT 7.6 10^3/uL (4.5-11.0)
[2018-09-23] MEDS ORDERED: Insulin Regular 1 UNITS/0.01 ML ML SC SCH (07:30)
[2018-09-23] MEDS: Insulin Reg-LOW-Coverage SC SCH ×3 (08:44→17:37)
--- NOTE | 2018-09-23 09:41 | CARD ---
APPROVED REPORT Date of service: 09/22/2018 EKG Measurement Heart [id number] <Conclusion> Normal sinus rhythm STTW changes c/w ischemia Mildly prolonged QTc No change
[2018-09-23] MEDS ORDERED: Insulin Human NPH 1 UNITS/0.01 ML SC SCH (10:00)
--- NOTE | 2018-09-23 10:21 | CT ---
Date of service: 09/22/2018 PROCEDURE: CT Lumbar Spine without contrast HISTORY: bilateral leg weakness COMPARISON: None available. TECHNIQUE: Axial computed tomography images were obtained of the lumbar spine without the use of intravenous contrast. Coronal and sagittal reformatted images were created and reviewed. Radiation dose: Total exam DLP = 1576.41 mGy-cm. This CT exam was performed using one or more of the following dose reduction techniques: Automated exposure control, adjustment of the mA and/or kV according to patient size, and/or use of iterative reconstruction technique. FINDINGS: VERTEBRAE: Severe wedge compression fracture of T12 with slight posterior ridging of the inferior vertebral body into the spinal canal without spinal stenosis. Vacuum disc phenomenon at T11-12 and T12-L1. DISCS/SPINAL CANAL/NEURAL FORAMINA: Multilevel disc bulging particularly at L4-5 and L5-S1 with thecal sac indentation and bilateral fear foraminal encroachment. Multilevel spondylosis. PARASPINAL SOFT TISSUES: Unremarkable. OTHER FINDINGS: Large abdominal aortic aneurysm status post endograft repair. Renal calculi and cysts. IMPRESSION: Compression fracture of T12. This is of indeterminate age but likely chronic.
--- NOTE | 2018-09-23 10:45 | RAD ---
Date of service: 09/22/2018 PROCEDURE: Bilateral knees HISTORY: knee pain COMPARISON: TECHNIQUE: Two views of each knee FINDINGS: The right knee is unremarkable. Severe degenerative changes are seen in the patellofemoral joint of the left knee. There is also osteophyte formation at the tibial tuberosity. There is no significant joint effusion in either knee. IMPRESSION: Severe degenerative changes are seen in the patellofemoral joint of the left knee. There is also osteophyte formation at the tibial tuberosity.
[2018-09-23 12:43] LABS: FERRITIN 35.2 ng/mL
[2018-09-23 13:13] LABS: FOLATE > 20.0 ng/mL
[2018-09-23 15:37] LABS: URINE BILIRUBIN NEGATIVE (NEGATIVE); URINE BLOOD SMALL (NEGATIVE); URINE GLUCOSE (UA) NEGATIVE (NEGATIVE); URINE LEUKOCYTE ESTERASE NEGATIVE Leu/uL (NEGATIVE); URINE PROTEIN >=300 mg/dL (<30 mg/dL); URINE UROBILINOGEN 0.2 E.U./dL (<1 E.U./dL)
[2018-09-23 15:44] LABS: URINE APPEARANCE TURBID (CLEAR); URINE COLOR YELLOW (YELLOW)
[2018-09-23 15:48] LABS: URINE RBC 0 - 2 /hpf (0-2)
[2018-09-23 15:49] LABS: URINE BACTERIA TRACE (NEG)
[2018-09-23] MEDS: Oxycodone/Acetaminophen 5/325 mg Tab PO PRN (18:02)
[2018-09-24] MEDS: Insulin Reg-LOW-Coverage SC SCH ×5 (00:48→22:45)
[2018-09-24] MEDS: Oxycodone/Acetaminophen 5/325 mg Tab PO PRN ×2 (06:16→20:13)
[2018-09-24 07:13] LABS: BASO # 0.01 K/mm3 (0.0-2.0); BASO % 0.1 % (0.0-3.0); EOS # 0.3 (0.0-0.7); EOS % 4.3 % (1.5-5.0); GRAN # 4.55 (1.4-6.5); GRAN % 63.1 % (50.0-68.0); HEMOGLOBIN 13.1 g/dL (12.0-16.0); LYMPH # 1.6 (1.2-3.4); LYMPH % 21.6 % (22.0-35.0); MEAN CELL VOLUME 94.7 fl (80.0-105.0); MEAN CORPUSCULAR HEMOGLOBIN 29.2 pg (25.0-35.0); MEAN CORPUSCULAR HGB CONC 30.8 g/dl (31.0-37.0); MEAN PLATELET VOLUME 10.2 fl (7.0-11.0); MONO # 0.8 (0.1-0.6); MONO % 10.9 % (1.0-6.0); RBC 4.49 10^6/uL (3.5-6.1); RED CELL DISTRIBUTION WIDTH 16.6 % (11.5-14.5); WHITE BLOOD COUNT 7.2 10^3/uL (4.5-11.0)
[2018-09-24 08:51] LABS: ALBUMIN 2.9 g/dL (3.0-4.8); CALCIUM 8.5 mg/dL (8.4-10.5)
[2018-09-24] MEDS ORDERED: Sod Polystyrene Sulf 15 gm/60 ml Susp PO ONE (08:57)
[2018-09-24] MEDS: Cholecalciferol 1,000 INTLU TAB PO SCH (09:22)
[2018-09-24] MEDS: DOBUTamine 500mg/250ml D5W 500 MG/250 ML BAG IV PRN (10:47)
[2018-09-24] MEDS: Nystatin 100,000 Units/gm Topical Pow(15 gm) TOP SCH ×3 (11:36→18:03)
--- NOTE | 2018-09-24 12:57 | CP.PCM.PN ---
<Geneva Mckeon - Last Filed: 09/24/18 12:42> Subjective - Date & Time of Evaluation Date of Evaluation: 09/24/18 Time of Evaluation: 12:42 - Subjective Subjective: PGY1 Medicine Progress Note for Dr. Parada Patient was seen and evaluated at bedside this morning. No acute events overnight. Patient states lower extremity pain have been improving. Patient is able to tolerate regular diet without issue. Patient able to get out of bed to chair. Patient denies diarrhea and/or constipation. 12 Point ROS is otherwise unremarkable. Objective - Vital Signs/Intake and Output Vital Signs (last 24 hours): Temp Pulse Resp BP Pulse Ox 98.3 F 65 20 125/62 98 09/24/18 06:00 09/24/18 10:47 09/24/18 06:00 09/24/18 10:47 09/24/18 00:01 Intake and Output: 09/24/18 09/24/18 06:59 18:59 Intake Total 120 Output Total 300 Balance -180 - Medications Medications: Current Medications Ascorbic Acid (Vitamin C 500 Mg Tab) 500 mg PO DAILY [facility] Last Admin: 09/24/18 09:22 Dose: 500 mg Aspirin (Ecotrin) 81 mg PO 0800 [facility] Last Admin: 09/24/18 08:18 Dose: 81 mg Atorvastatin Calcium (Lipitor) 10 mg PO DIN [facility] Last Admin: 09/23/18 17:38 Dose: 10 mg Calcitriol (Rocaltrol) 0.25 mcg PO MWF [facility] Calcium Carbonate (Oscal) 500 mg PO DAILY [facility] Last Admin: 09/24/18 09:22 Dose: 500 mg Cholecalciferol (Vitamin D) 1,000 intlu PO DAILY [facility] Last Admin: 09/24/18 09:22 Dose: 1,000 intlu Cyanocobalamin (Vitamin B12 1000 Mcg Tab) 1,000 mcg PO BID [facility] Last Admin: 09/24/18 09:22 Dose: 1,000 mcg Furosemide (Lasix) 40 mg PO DAILY [facility] Last Admin: 09/24/18 09:22 Dose: 40 mg Furosemide (Lasix) 20 mg PO DIN [facility] Last Admin: 09/23/18 17:38 Dose: 20 mg Gabapentin (Neurontin) 100 mg PO TID [facility]; Protocol Last Admin: 09/24/18 09:21 Dose: 100 mg Heparin Sodium (Porcine) (Heparin) 5,000 units SC Q12 [facility]; Protocol Last Admin: 09/24/18 09:21 Dose: 5,000 units Dobutamine HCl/Dextrose (Dobutamine/Dextrose 5% 500mg/250ml) 500 mg in 250 mls @ 12.274 mls/hr IV .[id number] PRN; Protocol PRN Reason: TITRATE PER PROTOCOL Last Admin: 09/24/18 10:47 Dose: 5 mcg/kg/min, 12.274 mls/hr Insulin Human Regular (Humulin R Low) 0 units SC ACHS [facility]; Protocol Last Admin: 09/24/18 08:18 Dose: Not Given Isosorbide Mononitrate (Imdur) 60 mg PO 0600 [facility] Last Admin: 09/24/18 05:47 Dose: 60 mg Lisinopril (Zestril) 10 mg PO DAILY [facility] Last Admin: 09/24/18 09:21 Dose: 10 mg Metoprolol Tartrate (Lopressor) 100 mg PO BRKDIN [facility] Last Admin: 09/24/18 08:18 Dose: 100 mg Nystatin (Nystop Topical Powder) 0 gm TOP TID [facility] Last Admin: 09/24/18 11:36 Dose: 1 applic Oxycodone/Acetaminophen (Percocet 5/325 Mg Tab) 1 tab PO Q8H PRN PRN Reason: Pain, severe (8-10) Stop: 09/26/18 12:52 Last Admin: 09/24/18 06:16 Dose: 1 tab Primidone (Mysoline) 50 mg PO HS [facility] Last Admin: 09/23/18 22:27 Dose: 50 mg - Labs Labs: 09/24/18 06:30 09/24/18 08:00 - Additional Findings Additional findings: - Constitutional Appears: Well, Non-toxic, No Acute Distress - Head Exam Head Exam: ATRAUMATIC, NORMAL INSPECTION, NORMOCEPHALIC - Eye Exam Eye Exam: EOMI, Normal appearance, PERRL - Respiratory Exam Respiratory Exam: Decreased Breath Sounds, NORMAL BREATHING PATTERN. absent: Accessory Muscle Use, Rales, Rhonchi, Wheezes, Respiratory Distress, Stridor - Cardiovascular Exam Cardiovascular Exam: RRR, +S1, +S2, Systolic Murmur (cresendo-decrescendo murmur appreciated at R sternal border.). absent: Gallop, Rubs - GI/Abdominal Exam GI & Abdominal Exam: Normal Bowel Sounds, Soft. absent: Firm, Guarding, Tenderness Additional comments: illiostomy bag noted, fecal material noted in bad, output and air noted - Extremities Exam Extremities exam: Positive for: pedal edema (trace), tenderness, pedal pulses present (1+). Negative for: calf tenderness, joint swelling, normal inspection (pt has hx of L 1st and 2nd transmetatarsal amputation) - Back Exam Back exam: NORMAL INSPECTION. absent: CVA tenderness (L), CVA tenderness (R) Additional comments: healing decubitus ulcer - Neurological Exam Neurological exam: Alert, Oriented x3 - Psychiatric Exam Psychiatric exam: Normal Affect, Normal Mood - Skin Skin Exam: Dry, Normal Color, Warm Assessment and Plan - Assessment and Plan (Free Text) Assessment: Patient is a 73-year-old Female with past medical history of CAD s/p CABG, T2DM, CHF s/p AICD placement, IDDM, neuropathy, PVD, HTN, HLD, ileostomy, chronic hip and knee pain who presents to [facility] ED with a chief complaint of bilateral lower extremity weakness and pain. Bilateral lower extremity venous doppler was negative for DVT bilaterally. Patient was also noted to have hyperkalemia and VALE on CKD on initial lab results. Hyperkalemia 2/2 pre-existing CKD vs drug induced hyperkalemia vs Type 4 Renal Tubular Acidosis: - EKG in ED showed no peaked T-waves - Patient takes lisinpril at home - Given in ED: ca++ gluconate, kayexalate and insulin - Repeat BMP - Follow up Urine Na, Cl and K VALE on CKD: - Continue to trend BUN/Cr - Hold all nephrotoxic meds History of CAD s/p CABG: - Continue home ASA, imdur, lopressor History of CHF s/p AICD: - Cardiology consulted (Dr. Vidales) recommendations appreciated Start: Dubutamine 500mg in 250mg IV 5mcg/kg/min - Continue home meds: Lasix 40mg PO daily Lasix 20mg PO DIN Lisinopril 10mg PO daily Lopressor 100mg PO BRKDIN Isosorbide Mononitrate 60mg PO 0600 Chronic Low Back Pain 2/2 T12 Compression Fracture - Dr. Sarmiento (IR) consulted - Follow-up on recommendations - Appropriate pain management Neuropathy - Patient was started on Gabapentin 100mg TID - Physical Therapy eval and treat - Follow-up on recommendations History of HLD: - Continue home lipitor History of IDDM: - ISS - HbgA1c - Accu checks ACHS - Hypoglycemia protocol PPX: DVT: Heparin SC Patient seen and case discussed in detail with Dr. Tal Mckeon PGY1 <Gerry Parada - Last Filed: 09/24/18 15:44> Objective - Vital Signs/Intake and Output Vital Signs (last 24 hours): Temp Pulse Resp BP Pulse Ox 98 F 70 18 174/98 H 98 09/24/18 12:00 09/24/18 12:00 09/24/18 12:00 09/24/18 12:00 09/24/18 00:01 Intake and Output: 09/24/18 09/24/18 06:59 18:59 Intake Total 120 Output Total 300 Balance -180 - Medications Medications: Current Medications Ascorbic Acid (Vitamin C 500 Mg Tab) 500 mg PO DAILY [facility] Last Admin: 09/24/18 09:22 Dose: 500 mg Aspirin (Ecotrin) 81 mg PO 0800 [facility] Last Admin: 09/24/18 08:18 Dose: 81 mg Atorvastatin Calcium (Lipitor) 10 mg PO DIN [facility] Last Admin: 09/23/18 17:38 Dose: 10 mg Calcitriol (Rocaltrol) 0.25 mcg PO MWF [facility] Calcium Carbonate (Oscal) 500 mg PO DAILY [facility] Last Admin: 09/24/18 09:22 Dose: 500 mg Cholecalciferol (Vitamin D) 1,000 intlu PO DAILY [facility] Last Admin: 09/24/18 09:22 Dose: 1,000 intlu Cyanocobalamin (Vitamin B12 1000 Mcg Tab) 1,000 mcg PO BID [facility] Last Admin: 09/24/18 09:22 Dose: 1,000 mcg Furosemide (Lasix) 40 mg PO DAILY [facility] Last Admin: 09/24/18 09:22 Dose: 40 mg Furosemide (Lasix) 20 mg PO DIN [facility] Last Admin: 09/23/18 17:38 Dose: 20 mg Gabapentin (Neurontin) 100 mg PO TID [facility]; Protocol Last Admin: 09/24/18 14:29 Dose: 100 mg Heparin Sodium (Porcine) (Heparin) 5,000 units SC Q12 [facility]; Protocol Last Admin: 09/24/18 09:21 Dose: 5,000 units Dobutamine HCl/Dextrose (Dobutamine/Dextrose 5% 500mg/250ml) 500 mg in 250 mls @ 12.274 mls/hr IV .[id number] PRN; Protocol PRN Reason: TITRATE PER PROTOCOL Last Admin: 09/24/18 10:47 Dose: 5 mcg/kg/min, 12.274 mls/hr Insulin Human Regular (Humulin R Low) 0 units SC ACHS [facility]; Protocol Last Admin: 09/24/18 12:43 Dose: 1 unit Isosorbide Mononitrate (Imdur) 60 mg PO 0600 [facility] Last Admin: 09/24/18 05:47 Dose: 60 mg Lisinopril (Zestril) 10 mg PO DAILY [facility] Last Admin: 09/24/18 09:21 Dose: 10 mg Metoprolol Tartrate (Lopressor) 100 mg PO BRKDIN [facility] Last Admin: 09/24/18 08:18 Dose: 100 mg Nystatin (Nystop Topical Powder) 0 gm TOP TID [facility] Last Admin: 09/24/18 14:29 Dose: 1 applic Oxycodone/Acetaminophen (Percocet 5/325 Mg Tab) 1 tab PO Q8H PRN PRN Reason: Pain, severe (8-10) Stop: 09/26/18 12:52 Last Admin: 09/24/18 06:16 Dose: 1 tab Primidone (Mysoline) 50 mg PO HS [facility] Last Admin: 09/23/18 22:27 Dose: 50 mg - Labs Labs: 09/24/18 06:30 09/24/18 08:00 Attending/Attestation - Attestation I have personally seen and examined this patient.: Yes I have fully participated in the care of the patient.: Yes I have reviewed all pertinent clinical information, including history, physical exam and plan: Yes Notes (Text): 09/24/18 15:36 Attending note; Patient seen and examined with resident. Patient's by the bedside. Patient is alert and awake. Sitting in the chair. Denies any chest pain, shortness of breath. Denies any abdominal pain. Complaining of bilateral leg pain mostly below knees. Denies any back pain. Denies any urinary incontinence. Denies any sensory loss. Patient is a 73-year-old Female with past medical history of CAD s/p CABG, DM, CHF s/p AICD placement, IDDM, neuropathy, PVD, HTN, HLD, ileostomy, chronic hip and knee pain is admitted for bilateral lower extremity weakness and pain. 1. Leg weakness ; patient has chronic right hip osteoarthritis .patient refused surgery . Patient also has gait instability due to diabetic neuropathy ,loss of toes and multiple medical issues. Bilateral lower extremity venous doppler was negative for DVT. 2. Hyperkalemia : resolved. 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 Low potassium diet ordered. Continue Lasix. 3. VALE on CKD; creatinine improved. Needs outpatient nephrology follow-up. 4. Colostomy; continue to monitor output. Stool ova and parasite negative. C. difficile is negative. 5. Cardiomyopathy; cardiology evaluation appreciated. Started on dobutamine drip . Continue aspirin, lisinopril, Lasix and Imdur. 6. T12 compression fracture; age indeterminate. IR evaluation appreciated. No procedures needed at this point. 7. Chronic gait instability; multifactorial. PT evaluation appreciated. Subacute rehabilitation recommended. 8. diabetic neuropathy; continue Neurontin. Diabetes is diet controlled. The diagnosis, follow-up plan discussed with patient and patient's in detail. Upon discharge the patient will follow-up with PMD Dr. Flannery.
--- NOTE | 2018-09-24 13:55 | CON ---
DATE: 09/24/2018 CHIEF COMPLAINT/HISTORY OF PRESENT ILLNESS: Suma Min is a 73-year-old female with a complex past medical history. She was most recently admitted with lower extremity weakness. At the time of her evaluation, she was noted to have a T12 compression fracture on CT, which has progressed from prior imaging. At the current time, Ms. Min is not experiencing any back pain, and kyphoplasty is not clinically indicated. Ms. Min had an aortic stent graft placed in March 2011 for a 5 cm abdominal aortic aneurysm. She had a complex postoperative course with a right lower extremity embolus/ischemia requiring thrombolysis and left colon ischemia necessitating colectomy with ileostomy placement. In 2013, Ms. Min presented with progressive left lower extremity claudication and early rest pain. She had an occlusion of the left iliac system, which was treated with left iliac [employer]/stent with resolution of her symptoms. At that time, it was noted that there was a type 3 separation of the patient's aortic stent graft. The original placement was an Endologix stent graft with 3 component. There has been separation between the second piece and the lowest bifurcated component. Ms. Min was evaluated at that time for endovascular repair with placement of a new component at the level of separation. For unclear reasons, this was never performed. On current imaging, her aneurysm has increased to approximately 7.5 cm. Unfortunately, her baseline creatinine is between 2 and 3. She is not experiencing any abdominal pain. There are no signs of rupture. IMPRESSION: Ms. Min is a vasculopath. She has had a CABG with a history of congestive heart failure and AICD placement. She is a poorly controlled diabetic. She has a history of hypertension and significant degenerative joint disease. RECOMMENDATIONS: At the current time, there are no clinical indications for a T12 kyphoplasty. I will discuss the aortic stent graft situation with Dr. Flannery. The aneurysm is enlarging, but it is not currently symptomatic. She is a candidate for possible endovascular repair, but this is little challenging given her anatomy and her renal insufficiency. The stent graft does not necessitate treatment on this admission. Vinnie Sarmiento MD [facility] # [id number] MTDDalila
--- NOTE | 2018-09-24 16:38 | CP.PCM.PN ---
Subjective - Date & Time of Evaluation Date of Evaluation: 09/24/18 Time of Evaluation: 12:00 - Subjective Subjective: Clinical Care Coordination Note seen and examined 73 yo F arrived to ED with c/o bilateral leg weakness x 1 day. Pt states she has had leg weakness for the last 8 months, but it has become progressively worse. Pt states she has more difficulty with ambulation and was unable to lift from toilet. PMHx CAD s/p CABG, DM, CHF with EF of 30% on last Echocardiogram, s/p AICD placement, IDDM, neuropathy, CKD, PVD s/p stenting, AAA s/p endo repair, HTN, HLD, ileostomy, chronic hip and knee pain. In ED patient found to be hyperkalemic, noted for compression fracture T12 without pain and increase in size of AAA since prior diagnostic testing. Objective - Vital Signs/Intake and Output Vital Signs (last 24 hours): Temp Pulse Resp BP Pulse Ox 98 F 70 18 174/98 H 98 09/24/18 12:00 09/24/18 12:00 09/24/18 12:00 09/24/18 12:00 09/24/18 00:01 Intake and Output: 09/24/18 09/24/18 06:59 18:59 Intake Total 120 Output Total 300 Balance -180 - Medications Medications: Current Medications Ascorbic Acid (Vitamin C 500 Mg Tab) 500 mg PO DAILY [facility] Last Admin: 09/24/18 09:22 Dose: 500 mg Aspirin (Ecotrin) 81 mg PO 0800 [facility] Last Admin: 09/24/18 08:18 Dose: 81 mg Atorvastatin Calcium (Lipitor) 10 mg PO DIN [facility] Last Admin: 09/23/18 17:38 Dose: 10 mg Calcitriol (Rocaltrol) 0.25 mcg PO MWF [facility] Calcium Carbonate (Oscal) 500 mg PO DAILY [facility] Last Admin: 09/24/18 09:22 Dose: 500 mg Cholecalciferol (Vitamin D) 1,000 intlu PO DAILY [facility] Last Admin: 09/24/18 09:22 Dose: 1,000 intlu Cyanocobalamin (Vitamin B12 1000 Mcg Tab) 1,000 mcg PO BID [facility] Last Admin: 09/24/18 09:22 Dose: 1,000 mcg Furosemide (Lasix) 40 mg PO DAILY [facility] Last Admin: 09/24/18 09:22 Dose: 40 mg Furosemide (Lasix) 20 mg PO DIN [facility] Last Admin: 09/23/18 17:38 Dose: 20 mg Gabapentin (Neurontin) 100 mg PO TID [facility]; Protocol Last Admin: 09/24/18 14:29 Dose: 100 mg Heparin Sodium (Porcine) (Heparin) 5,000 units SC Q12 [facility]; Protocol Last Admin: 09/24/18 09:21 Dose: 5,000 units Dobutamine HCl/Dextrose (Dobutamine/Dextrose 5% 500mg/250ml) 500 mg in 250 mls @ 12.274 mls/hr IV .[id number] PRN; Protocol PRN Reason: TITRATE PER PROTOCOL Last Admin: 09/24/18 10:47 Dose: 5 mcg/kg/min, 12.274 mls/hr Insulin Human Regular (Humulin R Low) 0 units SC ACHS [facility]; Protocol Last Admin: 09/24/18 12:43 Dose: 1 unit Isosorbide Mononitrate (Imdur) 60 mg PO 0600 [facility] Last Admin: 09/24/18 05:47 Dose: 60 mg Lisinopril (Zestril) 10 mg PO DAILY [facility] Last Admin: 09/24/18 09:21 Dose: 10 mg Metoprolol Tartrate (Lopressor) 100 mg PO BRKDIN [facility] Last Admin: 09/24/18 08:18 Dose: 100 mg Nystatin (Nystop Topical Powder) 0 gm TOP TID [facility] Last Admin: 09/24/18 14:29 Dose: 1 applic Oxycodone/Acetaminophen (Percocet 5/325 Mg Tab) 1 tab PO Q8H PRN PRN Reason: Pain, severe (8-10) Stop: 09/26/18 12:52 Last Admin: 09/24/18 06:16 Dose: 1 tab Primidone (Mysoline) 50 mg PO HS [facility] Last Admin: 09/23/18 22:27 Dose: 50 mg - Labs Labs: 09/24/18 06:30 09/24/18 08:00 - Constitutional Appears: Well, Non-toxic, No Acute Distress - Head Exam Head Exam: ATRAUMATIC, NORMOCEPHALIC - Eye Exam Eye Exam: EOMI, Normal appearance, PERRL Pupil Exam: NORMAL ACCOMODATION - Neck Exam Neck Exam: Full ROM, Normal Inspection - Respiratory Exam Respiratory Exam: Clear to Ausculation Bilateral, Prolonged Expiratory Phase, NORMAL BREATHING PATTERN - Cardiovascular Exam Cardiovascular Exam: REGULAR RHYTHM, +S1, +S2 - GI/Abdominal Exam GI & Abdominal Exam: Soft, Normal Bowel Sounds - Rectal Exam Rectal Exam: Deferred - Extremities Exam Extremities Exam: Full ROM, Normal Capillary Refill - Neurological Exam Neurological Exam: Alert, Awake, CN II-XII Intact, Oriented x3 Neuro motor strength exam: Left Upper Extremity: 5, Right Upper Extremity: 5, Left Lower Extremity: 4 (generalized weakness ), Right Lower Extremity: 4 (generalized weakness ) Additional comments: difficulty with ambulation - Psychiatric Exam Psychiatric exam: Normal Affect, Normal Mood - Skin Skin Exam: Normal Color, Warm Assessment and Plan - Assessment and Plan (Free Text) Assessment: A: hyperkalemia difficulty ambulating LE weakness compression FX AAA with increase in size CHF with last reported EF of 30% via echocardiogram 08/15 Plan: P: hyperkalemia kayexalate given compression FX no treatment at this time difficulty with ambulation PT recommended BROOK AAA increase in size s/p endo repair out patient f/u CHF with EF of 30% Dobutamine infusion as per Dr. Vidales Will follow closely for further recommendations
--- NOTE | 2018-09-24 18:48 | CARD ---
APPROVED REPORT Date of service: 09/24/2018 EKG Measurement Heart [id number] <Conclusion> Normal sinus rhythm with sinus arrhythmia ST & T wave abnormality, consider inferolateral ischemia Mildly prolonged QTc Abnormal ECG
--- NOTE | 2018-09-24 19:08 | CON ---
DATE: 09/24/2018 HISTORY: The patient is a 73-year-old woman, who presents with diffuse weakness in the lower extremities. She was found to have a compression fracture in T12. The patient's cardiac history includes severe end-stage dilated cardiomyopathy, for which she was treated with home Primacor in the past. She has been off her Primacor over the past several months. In addition, the patient suffers from CAD and hypercholesterolemia. The patient has intermittent chronic edema in the lower extremities. SOCIAL HISTORY: The patient does not smoke. REVIEW OF SYSTEMS: Fourteen-point review of systems is reviewed in detail. Diffuse weakness as well as lower extremity weakness are her primary complaints. PHYSICAL EXAMINATION: VITAL SIGNS: The blood pressure is 125/62, the heart rate is in the 60s. NECK: Negative JVD. LUNGS: Decreased breath sounds bilaterally. HEART: Revealed S1, S2. EXTREMITIES: Trace edema. LABORATORY DATA: Hemoglobin is 13.1. Chemistries, BUN and creatinine are 32 and 1.7, glucose is 126. IMPRESSION: 1. Diffuse weakness, likely due to low cardiac output. 2. End-stage dilated cardiomyopathy. 3. Diabetes mellitus. 4. T12 compression fracture, which is likely chronic. 5. Recurrent pedal edema. 6. Dyspnea. 7. Acute systolic congestive heart failure. PLAN: Given these findings, we will give the patient a trial of IV dobutamine to help her breathing as well as to see whether it has an affect on her diffuse weakness from her low cardiac output. In addition, any anesthesia contemplated for the patient would carry with it a high risk. Vinnie Vidales MD
[2018-09-25] MEDS: DOBUTamine 500mg/250ml D5W 500 MG/250 ML BAG IV PRN (05:13)
--- NOTE | 2018-09-25 06:43 | CP.PCM.PN ---
<Geneva Mckeon - Last Filed: 09/25/18 14:49> Subjective - Date & Time of Evaluation Date of Evaluation: 09/25/18 Time of Evaluation: 06:43 - Subjective Subjective: PGY1 Medicine Progress Note for Dr. Parada Patient was seen and evaluated at bedside this morning. at bedside. No acute events overnight. Patient states lower extremity pain have been improving. Patient is able to tolerate regular diet without issue. Patient able to get out of bed to chair. Patient admits to diarrhea. 12 Point ROS is otherwise unrem arkable. Objective - Vital Signs/Intake and Output Vital Signs (last 24 hours): Temp Pulse Resp BP Pulse Ox 98.3 F 80 18 141/87 96 09/25/18 06:00 09/25/18 06:00 09/25/18 06:00 09/25/18 06:00 09/25/18 06:00 Intake and Output: 09/24/18 09/25/18 18:59 06:59 Intake Total 231 370 Output Total 300 Balance -69 370 - Medications Medications: Current Medications Ascorbic Acid (Vitamin C 500 Mg Tab) 500 mg PO DAILY [facility] Last Admin: 09/24/18 09:22 Dose: 500 mg Aspirin (Ecotrin) 81 mg PO 0800 [facility] Last Admin: 09/24/18 08:18 Dose: 81 mg Atorvastatin Calcium (Lipitor) 10 mg PO DIN [facility] Last Admin: 09/24/18 18:01 Dose: 10 mg Calcitriol (Rocaltrol) 0.25 mcg PO MWF [facility] Calcium Carbonate (Oscal) 500 mg PO DAILY [facility] Last Admin: 09/24/18 09:22 Dose: 500 mg Cholecalciferol (Vitamin D) 1,000 intlu PO DAILY [facility] Last Admin: 09/24/18 09:22 Dose: 1,000 intlu Cyanocobalamin (Vitamin B12 1000 Mcg Tab) 1,000 mcg PO BID [facility] Last Admin: 09/24/18 18:03 Dose: 1,000 mcg Furosemide (Lasix) 40 mg PO DAILY [facility] Last Admin: 09/24/18 09:22 Dose: 40 mg Furosemide (Lasix) 20 mg PO DIN [facility] Last Admin: 09/24/18 18:03 Dose: 20 mg Gabapentin (Neurontin) 100 mg PO TID [facility]; Protocol Last Admin: 09/24/18 18:01 Dose: 100 mg Heparin Sodium (Porcine) (Heparin) 5,000 units SC Q12 [facility]; Protocol Last Admin: 09/24/18 21:33 Dose: 5,000 units Dobutamine HCl/Dextrose (Dobutamine/Dextrose 5% 500mg/250ml) 500 mg in 250 mls @ 12.274 mls/hr IV .[id number] PRN; Protocol PRN Reason: TITRATE PER PROTOCOL Last Admin: 09/25/18 05:13 Dose: 5 mcg/kg/min, 12.274 mls/hr Insulin Human Regular (Humulin R Low) 0 units SC ACHS [facility]; Protocol Last Admin: 09/24/18 22:45 Dose: Not Given Isosorbide Mononitrate (Imdur) 60 mg PO 0600 [facility] Last Admin: 09/25/18 05:16 Dose: 60 mg Lisinopril (Zestril) 10 mg PO DAILY [facility] Last Admin: 09/24/18 09:21 Dose: 10 mg Metoprolol Tartrate (Lopressor) 100 mg PO BRKDIN [facility] Last Admin: 09/24/18 18:02 Dose: 100 mg Nystatin (Nystop Topical Powder) 0 gm TOP TID [facility] Last Admin: 09/24/18 18:03 Dose: 1 applic Oxycodone/Acetaminophen (Percocet 5/325 Mg Tab) 1 tab PO Q8H PRN PRN Reason: Pain, severe (8-10) Stop: 09/26/18 12:52 Last Admin: 09/24/18 20:13 Dose: 1 tab Primidone (Mysoline) 50 mg PO HS [facility] Last Admin: 09/24/18 21:33 Dose: 50 mg - Labs Labs: 09/24/18 06:30 09/24/18 08:00 - Additional Findings Additional findings: - Constitutional Appears: Well, Non-toxic, No Acute Distress - Head Exam Head Exam: ATRAUMATIC, NORMAL INSPECTION, NORMOCEPHALIC - Eye Exam Eye Exam: EOMI, Normal appearance, PERRL - Respiratory Exam Respiratory Exam: Decreased Breath Sounds, NORMAL BREATHING PATTERN. absent: Accessory Muscle Use, Rales, Rhonchi, Wheezes, Respiratory Distress, Stridor - Cardiovascular Exam Cardiovascular Exam: RRR, +S1, +S2, Systolic Murmur (cresendo-decrescendo murmur appreciated at R sternal border.). absent: Gallop, Rubs - GI/Abdominal Exam GI & Abdominal Exam: Normal Bowel Sounds, Soft. absent: Firm, Guarding, Tenderness Additional comments: illiostomy bag noted, fecal material noted in bad, output and air noted - Extremities Exam Extremities exam: Positive for: pedal edema (trace), tenderness, pedal pulses present (1+). Negative for: calf tenderness, joint swelling, normal inspection (pt has hx of L 1st and 2nd transmetatarsal amputation) - Back Exam Back exam: NORMAL INSPECTION. absent: CVA tenderness (L), CVA tenderness (R) Additional comments: healing decubitus ulcer - Neurological Exam Neurological exam: Alert, Oriented x3 - Psychiatric Exam Psychiatric exam: Normal Affect, Normal Mood - Skin Skin Exam: Dry, Normal Color, Warm Assessment and Plan - Assessment and Plan (Free Text) Assessment: Patient is a 73-year-old Female with past medical history of CAD s/p CABG, T2DM, CHF s/p AICD placement, IDDM, neuropathy, PVD, HTN, HLD, ileostomy, chronic hip and knee pain who presents to [facility] ED with a chief complaint of bilateral lower extremity weakness and pain. Bilateral lower extremity venous doppler was negative for DVT bilaterally. Patient was also noted to have hyperkalemia and VALE on CKD on initial lab results. Hyperkalemia 2/2 pre-existing CKD vs drug induced hyperkalemia vs Type 4 Renal Tubular Acidosis: - EKG in ED showed no peaked T-waves - Patient takes lisinpril at home - Given in ED: ca++ gluconate, kayexalate and insulin - Repeat BMP - Follow up Urine Na, Cl and K VALE on CKD: - Continue to trend BUN/Cr - Hold all nephrotoxic meds History of CAD s/p CABG: - Continue home ASA, imdur, lopressor History of CHF s/p AICD: - Cardiology consulted (Dr. Vidales) recommendations appreciated Per Cardiology recommendations, Continue Dubutamine 500mg in 250mg IV 5mcg/kg/min - Continue home meds: Lasix 40mg PO daily Lasix 20mg PO DIN Lisinopril 10mg PO daily Lopressor 100mg PO BRKDIN Isosorbide Mononitrate 60mg PO 0600 Chronic Low Back Pain 2/2 T12 Compression Fracture - Dr. Sarmiento (IR) consulted - Follow-up on recommendations - Appropriate pain management Neuropathy - Patient was started on Gabapentin 100mg TID - Physical Therapy eval and treat - Follow-up on recommendations History of HLD: - Continue home lipitor History of IDDM: - ISS - HbgA1c - Accu checks ACHS - Hypoglycemia protocol PPX: DVT: Heparin SC Patient seen and case discussed in detail with Dr. Tal Mckeon PGY1 <Gerry Parada - Last Filed: 09/26/18 14:27> Objective - Vital Signs/Intake and Output Vital Signs (last 24 hours): Temp Pulse Resp BP Pulse Ox 99.6 F 79 19 133/89 96 09/26/18 12:29 09/26/18 12:29 09/26/18 12:29 09/26/18 12:29 09/26/18 05:28 Intake and Output: 09/26/18 09/26/18 06:59 18:59 Intake Total 1008 Output Total 1300 Balance -292 - Medications Medications: Current Medications Ascorbic Acid (Vitamin C 500 Mg Tab) 500 mg PO DAILY [facility] Last Admin: 09/26/18 09:27 Dose: 500 mg Aspirin (Ecotrin) 81 mg PO 0800 [facility] Last Admin: 09/26/18 09:28 Dose: 81 mg Atorvastatin Calcium (Lipitor) 10 mg PO DIN [facility] Last Admin: 09/25/18 18:03 Dose: 10 mg Calcitriol (Rocaltrol) 0.25 mcg PO MWF [facility] Last Admin: 09/25/18 10:29 Dose: 0.25 mcg Calcium Carbonate (Oscal) 500 mg PO DAILY [facility] Last Admin: 09/26/18 09:27 Dose: 500 mg Cholecalciferol (Vitamin D) 1,000 intlu PO DAILY [facility] Last Admin: 09/26/18 09:27 Dose: 1,000 intlu Cyanocobalamin (Vitamin B12 1000 Mcg Tab) 1,000 mcg PO BID [facility] Last Admin: 09/26/18 09:27 Dose: 1,000 mcg Furosemide (Lasix) 40 mg PO DAILY [facility] Last Admin: 09/26/18 09:28 Dose: 40 mg Furosemide (Lasix) 20 mg PO DIN [facility] Last Admin: 09/25/18 18:04 Dose: 20 mg Gabapentin (Neurontin) 100 mg PO TID [facility]; Protocol Last Admin: 09/26/18 14:10 Dose: 100 mg Guaifenesin (Robitussin) 200 mg PO Q4H PRN PRN Reason: Cough and congestion Heparin Sodium (Porcine) (Heparin) 5,000 units SC Q12 [facility]; Protocol Last Admin: 09/26/18 09:26 Dose: 5,000 units Dobutamine HCl/Dextrose (Dobutamine/Dextrose 5% 500mg/250ml) 500 mg in 250 mls @ 18.411 mls/hr IV .[id number] PRN; Protocol PRN Reason: TITRATE PER PROTOCOL Last Admin: 09/26/18 11:18 Dose: 7.5 mcg/kg/min, 18.411 mls/hr Insulin Human Regular (Humulin R Low) 0 units SC ACHS [facility]; Protocol Last Admin: 09/26/18 12:28 Dose: 1 unit Isosorbide Mononitrate (Imdur) 60 mg PO 0600 [facility] Last Admin: 09/26/18 06:07 Dose: 60 mg Lisinopril (Zestril) 10 mg PO DAILY [facility] Last Admin: 09/26/18 09:28 Dose: 10 mg Metoprolol Tartrate (Lopressor) 100 mg PO BRKDIN [facility] Last Admin: 09/26/18 09:28 Dose: 100 mg Nystatin (Nystop Topical Powder) 0 gm TOP TID [facility] Last Admin: 09/26/18 14:10 Dose: 1 applic Pantoprazole Sodium (Protonix Ec Tab) 40 mg PO 0600 [facility] Primidone (Mysoline) 50 mg PO HS [facility] Last Admin: 09/25/18 21:01 Dose: 50 mg - Labs Labs: 09/26/18 06:00 09/26/18 06:00 Attending/Attestation - Attestation I have personally seen and examined this patient.: Yes I have fully participated in the care of the patient.: Yes I have reviewed all pertinent clinical information, including history, physical exam and plan: Yes Notes (Text): 09/26/18 14:22 Attending note; Patient seen and examined with resident. Patient's by the bedside. Patient is alert and awake. Sitting in the chair. Denies any chest pain, shortness of breath. Denies any abdominal pain. getting physical therapy. Denies any back pain. Denies any urinary incontinence. Denies any sensory loss. on dobutamine drip. Patient is a 73-year-old Female with past medical history of CAD s/p CABG, DM, CHF s/p AICD placement, cardiomyopathy, IDDM, neuropathy, PVD, HTN, HLD, ileostomy, chronic hip and knee pain is admitted for bilateral lower extremity weakness and pain. 1. Leg weakness ; patient has chronic right hip osteoarthritis. Patient also has gait instability due to diabetic neuropathy ,loss of toes and other multiple medical issues. Bilateral lower extremity venous doppler was negative for DVT. continue PT as tolerated. PT recommending BROOK. 2. VALE on CKD; creatinine is improving. increased urine output after dobutamine drip. 3. Colostomy; continue to monitor output. Stool ova and parasite negative. C. difficile is negative. 4. Cardiomyopathy; cardiology evaluation appreciated. Started on dobutamine drip. Continue aspirin, lisinopril, Lasix and Imdur. 5. T12 compression fracture; age indeterminate. IR evaluation appreciated. No procedures needed at this point. 6. History of AAA graft; currently asymptomatic. vascular surgery evaluation appreciated. endovascular stent in future recommended. 7. diabetic neuropathy; continue Neurontin. Diabetes is diet controlled. The diagnosis, follow-up plan discussed with patient and patient's in detail. Upon discharge the patient will follow-up with PMD Dr. Flannery.
[2018-09-25 07:20] LABS: BASO # 0.01 K/mm3 (0.0-2.0); BASO % 0.1 % (0.0-3.0); EOS # 0.2 (0.0-0.7); EOS % 2.4 % (1.5-5.0); GRAN # 5.76 (1.4-6.5); GRAN % 71.5 % (50.0-68.0); HEMOGLOBIN 13.3 g/dL (12.0-16.0); LYMPH # 1.3 (1.2-3.4); LYMPH % 15.6 % (22.0-35.0); MEAN CELL VOLUME 94.2 fl (80.0-105.0); MEAN CORPUSCULAR HEMOGLOBIN 29.6 pg (25.0-35.0); MEAN CORPUSCULAR HGB CONC 31.4 g/dl (31.0-37.0); MEAN PLATELET VOLUME 9.4 fl (7.0-11.0); MONO # 0.8 (0.1-0.6); MONO % 10.4 % (1.0-6.0); RBC 4.49 10^6/uL (3.5-6.1); RED CELL DISTRIBUTION WIDTH 16.5 % (11.5-14.5); WHITE BLOOD COUNT 8.1 10^3/uL (4.5-11.0)
[2018-09-25 07:45] LABS: ALBUMIN 2.9 g/dL (3.0-4.8); CALCIUM 8.5 mg/dL (8.4-10.5)
[2018-09-25] MEDS: Insulin Reg-LOW-Coverage SC SCH ×4 (08:19→22:07)
--- NOTE | 2018-09-25 08:50 | PN ---
DATE: 09/25/2018 CARDIOLOGY FOLLOWUP SUBJECTIVE: The patient's lower extremities feel stronger on IV dobutamine. OBJECTIVE: VITAL SIGNS: Blood pressure 141/87, heart rates in the 80s. NECK: Negative JVD. LUNGS: Without rales. HEART: Reveals S1, S2. EXTREMITIES: Without edema. LABORATORY DATA: Hemoglobin is 13. Chemistries, BUN and creatinine 30 and 1.7 and glucose is 135. IMPRESSION: 1. End-stage dilated cardiomyopathy. 2. Low cardiac output syndrome. 3. Renal insufficiency. 4. Diabetes mellitus. 5. Coronary artery disease. Given these findings, we will begin physical therapy on IV dobutamine. We will continue IV dobutamine for next 24 to 48 hours. Vinnie Vidales MD
[2018-09-25] MEDS: Cholecalciferol 1,000 INTLU TAB PO SCH (10:29)
[2018-09-25] MEDS: Nystatin 100,000 Units/gm Topical Pow(15 gm) TOP SCH ×3 (10:32→18:05)
--- NOTE | 2018-09-25 11:07 | CP.PCM.PN ---
Subjective - Date & Time of Evaluation Date of Evaluation: 09/25/18 Time of Evaluation: 09:00 - Subjective Subjective: Clinical Care Coordination Note seen and examined 73 yo F c/o bilateral leg weakness and difficulty with ambulation getting progressively worse. No complaints overnight AAOx3, breathing even/easy, excursion wnl, hyperkalemia resolved, incidental finding compression fracture T12 without pain and increase in size of AAA since prior diagnostic testing, no treatment at this time. PMHx CAD s/p CABG, DM, CHF with EF of 30% on last Echocardiogram, s/p AICD placement, IDDM, neuropathy, CKD, PVD s/p stenting, AAA s/p endo repair, HTN, HLD, ileostomy, DJD, chronic hip and knee pain. Patient denies fever, chills, BLANCO, dizziness, SOB at this time, cough, hemoptysis, chest pain, abdominal pain, N/V/D, hematemesis or rectal bleeding. Objective - Vital Signs/Intake and Output Vital Signs (last 24 hours): Temp Pulse Resp BP Pulse Ox 98.3 F 87 18 152/77 H 96 09/25/18 06:00 09/25/18 10:30 09/25/18 06:00 09/25/18 10:31 09/25/18 06:00 Intake and Output: 09/25/18 09/25/18 06:59 18:59 Intake Total 1270 Output Total 1800 Balance -530 - Medications Medications: Current Medications Ascorbic Acid (Vitamin C 500 Mg Tab) 500 mg PO DAILY [facility] Last Admin: 09/25/18 10:31 Dose: 500 mg Aspirin (Ecotrin) 81 mg PO 0800 [facility] Last Admin: 09/25/18 08:48 Dose: 81 mg Atorvastatin Calcium (Lipitor) 10 mg PO DIN [facility] Last Admin: 09/24/18 18:01 Dose: 10 mg Calcitriol (Rocaltrol) 0.25 mcg PO MWF [facility] Last Admin: 09/25/18 10:29 Dose: 0.25 mcg Calcium Carbonate (Oscal) 500 mg PO DAILY [facility] Last Admin: 09/25/18 10:30 Dose: 500 mg Cholecalciferol (Vitamin D) 1,000 intlu PO DAILY [facility] Last Admin: 09/25/18 10:29 Dose: 1,000 intlu Cyanocobalamin (Vitamin B12 1000 Mcg Tab) 1,000 mcg PO BID [facility] Last Admin: 09/25/18 10:30 Dose: 1,000 mcg Furosemide (Lasix) 40 mg PO DAILY [facility] Last Admin: 09/25/18 10:31 Dose: 40 mg Furosemide (Lasix) 20 mg PO DIN [facility] Last Admin: 09/24/18 18:03 Dose: 20 mg Gabapentin (Neurontin) 100 mg PO TID [facility]; Protocol Last Admin: 09/25/18 10:30 Dose: 100 mg Heparin Sodium (Porcine) (Heparin) 5,000 units SC Q12 [facility]; Protocol Last Admin: 09/25/18 10:28 Dose: 5,000 units Dobutamine HCl/Dextrose (Dobutamine/Dextrose 5% 500mg/250ml) 500 mg in 250 mls @ 12.274 mls/hr IV .[id number] PRN; Protocol PRN Reason: TITRATE PER PROTOCOL Last Admin: 09/25/18 05:13 Dose: 5 mcg/kg/min, 12.274 mls/hr Insulin Human Regular (Humulin R Low) 0 units SC ACHS [facility]; Protocol Last Admin: 09/25/18 08:19 Dose: Not Given Isosorbide Mononitrate (Imdur) 60 mg PO 0600 [facility] Last Admin: 09/25/18 05:16 Dose: 60 mg Lisinopril (Zestril) 10 mg PO DAILY [facility] Last Admin: 09/25/18 10:30 Dose: 10 mg Metoprolol Tartrate (Lopressor) 100 mg PO BRKDIN [facility] Last Admin: 09/25/18 08:48 Dose: 100 mg Nystatin (Nystop Topical Powder) 0 gm TOP TID [facility] Last Admin: 09/25/18 10:32 Dose: 1 applic Oxycodone/Acetaminophen (Percocet 5/325 Mg Tab) 1 tab PO Q8H PRN PRN Reason: Pain, severe (8-10) Stop: 09/26/18 12:52 Last Admin: 09/24/18 20:13 Dose: 1 tab Primidone (Mysoline) 50 mg PO HS [facility] Last Admin: 09/24/18 21:33 Dose: 50 mg - Labs Labs: 09/25/18 07:00 09/25/18 07:00 - Constitutional Appears: Non-toxic, No Acute Distress, Chronically Ill - Head Exam Head Exam: ATRAUMATIC, NORMOCEPHALIC - Eye Exam Eye Exam: EOMI, Normal appearance, PERRL Pupil Exam: NORMAL ACCOMODATION - Neck Exam Neck Exam: Full ROM - Respiratory Exam Respiratory Exam: Decreased Breath Sounds, NORMAL BREATHING PATTERN Additional comments: fine rales scattered bilateral lung yang - Cardiovascular Exam Cardiovascular Exam: REGULAR RHYTHM, +S2 - GI/Abdominal Exam GI & Abdominal Exam: Normal Bowel Sounds - Rectal Exam Rectal Exam: Deferred - Extremities Exam Extremities Exam: Full ROM, Normal Capillary Refill Additional comments: RLE pain secondary to DJD - Neurological Exam Neurological Exam: Alert, Awake, CN II-XII Intact, Oriented x3 Neuro motor strength exam: Left Upper Extremity: 5, Right Upper Extremity: 5, Left Lower Extremity: 4 (generalized weakness), Right Lower Extremity: 4 (generalized weakness RLE knee pain, DJD ) Additional comments: patient is a 2 person assist difficulty with ambulation and pain secondary to DJD RLE - Psychiatric Exam Psychiatric exam: Normal Affect, Normal Mood - Skin Skin Exam: Dry, Normal Color, Warm Assessment and Plan - Assessment and Plan (Free Text) Assessment: A: LE weakness/RLE weakness pain secondary to DJD Dilated cardiomyopathy T12 compression FX AAA s/p endo repair with increase size Plan: P: LE weakness/pain secondary to DJD, PT recommended BROOK Dilated cardiomyopathy recommendations as per Dr. Vidales patient tolerating Dobutamine well Cardiopulmonary evaluation is pending spoke with PT T12 compression FX no treat at this time as per Dr. Sarmiento patient is pain free AAA s/p endo repair with increase in size no intervention at this time as per Dr. Sarmiento will follow and reevaluate as an out patient will follow closely CM/SW for discharge planning
[2018-09-25] MEDS: Oxycodone/Acetaminophen 5/325 mg Tab PO PRN (21:00)
[2018-09-26] MEDS: DOBUTamine 500mg/250ml D5W 500 MG/250 ML BAG IV PRN ×3 (03:36→22:02)
[2018-09-26 06:49] LABS: CALCIUM 8.6 mg/dL (8.4-10.5)
[2018-09-26 06:51] LABS: BASO # 0.01 K/mm3 (0.0-2.0); BASO % 0.1 % (0.0-3.0); EOS # 0.3 (0.0-0.7); EOS % 4.4 % (1.5-5.0); GRAN # 5.23 (1.4-6.5); GRAN % 69.4 % (50.0-68.0); HEMOGLOBIN 13.1 g/dL (12.0-16.0); LYMPH # 1.2 (1.2-3.4); LYMPH % 15.5 % (22.0-35.0); MEAN CORPUSCULAR HEMOGLOBIN 29.6 pg (25.0-35.0); MEAN CORPUSCULAR HGB CONC 31.8 g/dl (31.0-37.0); MEAN PLATELET VOLUME 9.7 fl (7.0-11.0); MONO # 0.8 (0.1-0.6); MONO % 10.6 % (1.0-6.0); RBC 4.43 10^6/uL (3.5-6.1); RED CELL DISTRIBUTION WIDTH 16.2 % (11.5-14.5); WHITE BLOOD COUNT 7.5 10^3/uL (4.5-11.0)
[2018-09-26] MEDS: Insulin Reg-LOW-Coverage SC SCH ×4 (08:13→22:11)
[2018-09-26] MEDS: Cholecalciferol 1,000 INTLU TAB PO SCH (09:27)
[2018-09-26] MEDS: Nystatin 100,000 Units/gm Topical Pow(15 gm) TOP SCH ×3 (09:29→17:40)
--- NOTE | 2018-09-26 10:41 | PQF ---
PROVIDER RESPONSE TEXT: CKD stage I REVIEWER QUERY TEXT: Kidney Disease, Chronic CKD Stage Chronic Kidney Disease (CKD) is documented in the Medical Record. Please specify the disease stage ( includes probable or suspected) Such as: -- Chronic kidney disease Stage 1 -- Chronic kidney disease Stage 2 -- Chronic kidney disease Stage 3 -- Chronic kidney disease Stage 4 -- Chronic kidney disease Stage 5 -- Chronic kidney disease Stage 5, requiring dialysis -- End Stage Renal Disease -- Other, please specify Stages are defined by the [employer] as follows: CKD Stage I GFR >= 90 ml / min per 1.73 m2 and persistent albuminuria CKD Stage 2 GFR between 60 and 89 with persistent albuminuria CKD Stage 3 GFR between 30 and 59 CKD Stage 4 GFR between 15 and 29 CKD Stage 5 GFR between <15 or End Stage Renal Disease The patient's Clinical Indicators include: Query created by: Rekha Gutierrez on 09/26/2018 9:47 AM Electronically signed by: Matilda Lopez APN 09/26/2018 10:38 AM
--- NOTE | 2018-09-26 13:23 | CP.PCM.PN ---
<Umesh Williamson - Last Filed: 09/26/18 13:19> Subjective - Date & Time of Evaluation Date of Evaluation: 09/26/18 Time of Evaluation: 13:19 - Subjective Subjective: Internal Medicine Progress Note (Hospitalist Service) Patient seen and assessed at bedside. No acute events overnight noted by patient or nursing staff. Patient reports that she is still overall weaker than her baseline but that this has improved over the past couple of days. She denies any new complaints at this time and 12 point ROS unremarkable outside of what has been mentioned above. Objective - Vital Signs/Intake and Output Vital Signs (last 24 hours): Temp Pulse Resp BP Pulse Ox 99.6 F 79 19 133/89 96 09/26/18 12:29 09/26/18 12:29 09/26/18 12:29 09/26/18 12:29 09/26/18 05:28 Intake and Output: 09/26/18 09/26/18 06:59 18:59 Intake Total 1008 Output Total 1300 Balance -292 - Medications Medications: Current Medications Ascorbic Acid (Vitamin C 500 Mg Tab) 500 mg PO DAILY [facility] Last Admin: 09/26/18 09:27 Dose: 500 mg Aspirin (Ecotrin) 81 mg PO 0800 [facility] Last Admin: 09/26/18 09:28 Dose: 81 mg Atorvastatin Calcium (Lipitor) 10 mg PO DIN [facility] Last Admin: 09/25/18 18:03 Dose: 10 mg Calcitriol (Rocaltrol) 0.25 mcg PO MWF [facility] Last Admin: 09/25/18 10:29 Dose: 0.25 mcg Calcium Carbonate (Oscal) 500 mg PO DAILY [facility] Last Admin: 09/26/18 09:27 Dose: 500 mg Cholecalciferol (Vitamin D) 1,000 intlu PO DAILY [facility] Last Admin: 09/26/18 09:27 Dose: 1,000 intlu Cyanocobalamin (Vitamin B12 1000 Mcg Tab) 1,000 mcg PO BID [facility] Last Admin: 09/26/18 09:27 Dose: 1,000 mcg Furosemide (Lasix) 40 mg PO DAILY [facility] Last Admin: 09/26/18 09:28 Dose: 40 mg Furosemide (Lasix) 20 mg PO DIN [facility] Last Admin: 09/25/18 18:04 Dose: 20 mg Gabapentin (Neurontin) 100 mg PO TID [facility]; Protocol Last Admin: 09/26/18 09:27 Dose: 100 mg Heparin Sodium (Porcine) (Heparin) 5,000 units SC Q12 [facility]; Protocol Last Admin: 09/26/18 09:26 Dose: 5,000 units Dobutamine HCl/Dextrose (Dobutamine/Dextrose 5% 500mg/250ml) 500 mg in 250 mls @ 18.411 mls/hr IV .[id number] PRN; Protocol PRN Reason: TITRATE PER PROTOCOL Last Admin: 09/26/18 11:18 Dose: 7.5 mcg/kg/min, 18.411 mls/hr Insulin Human Regular (Humulin R Low) 0 units SC ACHS [facility]; Protocol Last Admin: 09/26/18 12:28 Dose: 1 unit Isosorbide Mononitrate (Imdur) 60 mg PO 0600 [facility] Last Admin: 09/26/18 06:07 Dose: 60 mg Lisinopril (Zestril) 10 mg PO DAILY [facility] Last Admin: 09/26/18 09:28 Dose: 10 mg Metoprolol Tartrate (Lopressor) 100 mg PO BRKDIN [facility] Last Admin: 09/26/18 09:28 Dose: 100 mg Nystatin (Nystop Topical Powder) 0 gm TOP TID [facility] Last Admin: 09/26/18 09:29 Dose: 1 applic Primidone (Mysoline) 50 mg PO HS [facility] Last Admin: 09/25/18 21:01 Dose: 50 mg - Labs Labs: 09/26/18 06:00 09/26/18 06:00 - Additional Findings Additional findings: - Constitutional Appears: Well, Non-toxic, No Acute Distress - Head Exam Head Exam: ATRAUMATIC, NORMAL INSPECTION, NORMOCEPHALIC - Eye Exam Eye Exam: EOMI, Normal appearance, PERRL - Respiratory Exam Respiratory Exam: Decreased Breath Sounds, NORMAL BREATHING PATTERN. absent: Accessory Muscle Use, Rales, Rhonchi, Wheezes, Respiratory Distress, Stridor - Cardiovascular Exam Cardiovascular Exam: RRR, +S1, +S2, Systolic Murmur. absent: Gallop, Rubs - GI/Abdominal Exam GI & Abdominal Exam: Normal Bowel Sounds, Soft. absent: Firm, Guarding, Tenderness Additional comments: Ileostomy bag noted with minimal solid fecal matter noted; Stoma pink, patent and productive - Extremities Exam Extremities exam: Positive for: pedal edema (+1 pitting extending to mid calf bilaterally), tenderness, pedal pulses present. Negative for: calf tenderness, joint swelling, normal inspection (Left first and second transmetatarsal amputation) - Back Exam Back exam: NORMAL INSPECTION. absent: CVA tenderness (L), CVA tenderness (R) Additional comments: SDU - Neurological Exam Neurological exam: Alert, Oriented x3 - Psychiatric Exam Psychiatric exam: Normal Affect, Normal Mood - Skin Skin Exam: Dry, Normal Color, Warm Assessment and Plan - Assessment and Plan (Free Text) Assessment: 73 year old female with past medical history significant for CAD s/p CABG, IDDM2, CHF s/p AICD, diabetic peripheral neuropathy, PVD, HTN, HLD, ileostomy, chronic hip and knee pain who presented with chief complaint of bilateral lower extremity weakness and pain. Plan: 1. Bilateral Lower Extremity Weakness with Gait Instability -Left Knee X-Ray showed degenerative joint changes with osteophyte formation -Bilateral LE Venous Doppler negative for DVT -Likely secondary to right hip OA, diabetic neuropathy, prior amputation and multiple comorbid medical issues -No IR intervention indicated at this time -PT recommending BROOK upon discharge -IR and PT/OT consulted, all recommendations appreciated 2. Dilated Cardiomyopathy -Continue dobutamine for 24 more hours -Continue ASA, Lopressor, Lisinopril, Lasix, and Imdur -Cardiology consulted, all recommendations 3. VALE on CKD -Improving -Continue to trend with daily CMP's -Avoid nephrotoxic agents when possible -Will need outpatient Nephrology follow-up 4. T12 Compression Fracture -Seen on Lumbar Spine CT -No IR intervention indicated at this time, per Dr. Sarmiento -IR consulted, all recommendations appreciated 5. Hyperkalemia -Resolved -Likely secondary to Type IV RTA in setting of IDDM2 -Continue potassium restricted diet -Continue to monitor with daily CMP's 6. History of IDDM2 -SSI-Low and Accuchecks ACHS -Continue carbohydrate restricted diet 7. History of CAD s/p CABG -Continue ASA, Lipitor, Lopressor and Lisinopril 8. History of Colostomy -Stool culture, C. Diff serology, and stool O/P all negative -Continue to monitor output 9. History of Vitamin D Deficiency -Continue home Vitamin D supplementation and Oscal 10. History of Diabetic Neuropathy -Continue home Gabapentin GI Prophylaxis: Protonix DVT Prophylaxis: Heparin Code Status: Full Code Patient seen and case discussed with attending, Dr. Parada. Umesh Williamson PGY2 <Gerry Parada - Last Filed: 09/26/18 14:32> Objective - Vital Signs/Intake and Output Vital Signs (last 24 hours): Temp Pulse Resp BP Pulse Ox 99.6 F 79 19 133/89 96 09/26/18 12:29 09/26/18 12:29 09/26/18 12:29 09/26/18 12:29 09/26/18 05:28 Intake and Output: 09/26/18 09/26/18 06:59 18:59 Intake Total 1008 Output Total 1300 Balance -292 - Medications Medications: Current Medications Ascorbic Acid (Vitamin C 500 Mg Tab) 500 mg PO DAILY [facility] Last Admin: 09/26/18 09:27 Dose: 500 mg Aspirin (Ecotrin) 81 mg PO 0800 [facility] Last Admin: 09/26/18 09:28 Dose: 81 mg Atorvastatin Calcium (Lipitor) 10 mg PO DIN [facility] Last Admin: 09/25/18 18:03 Dose: 10 mg Calcitriol (Rocaltrol) 0.25 mcg PO MWF [facility] Last Admin: 09/25/18 10:29 Dose: 0.25 mcg Calcium Carbonate (Oscal) 500 mg PO DAILY [facility] Last Admin: 09/26/18 09:27 Dose: 500 mg Cholecalciferol (Vitamin D) 1,000 intlu PO DAILY [facility] Last Admin: 09/26/18 09:27 Dose: 1,000 intlu Cyanocobalamin (Vitamin B12 1000 Mcg Tab) 1,000 mcg PO BID [facility] Last Admin: 09/26/18 09:27 Dose: 1,000 mcg Furosemide (Lasix) 40 mg PO DAILY [facility] Last Admin: 09/26/18 09:28 Dose: 40 mg Furosemide (Lasix) 20 mg PO DIN [facility] Last Admin: 09/25/18 18:04 Dose: 20 mg Gabapentin (Neurontin) 100 mg PO TID [facility]; Protocol Last Admin: 09/26/18 14:10 Dose: 100 mg Guaifenesin (Robitussin) 200 mg PO Q4H PRN PRN Reason: Cough and congestion Heparin Sodium (Porcine) (Heparin) 5,000 units SC Q12 [facility]; Protocol Last Admin: 09/26/18 09:26 Dose: 5,000 units Dobutamine HCl/Dextrose (Dobutamine/Dextrose 5% 500mg/250ml) 500 mg in 250 mls @ 18.411 mls/hr IV .[id number] PRN; Protocol PRN Reason: TITRATE PER PROTOCOL Last Admin: 09/26/18 11:18 Dose: 7.5 mcg/kg/min, 18.411 mls/hr Insulin Human Regular (Humulin R Low) 0 units SC [facility]; Protocol Last Admin: 09/26/18 12:28 Dose: 1 unit Isosorbide Mononitrate (Imdur) 60 mg PO 0600 [facility] Last Admin: 09/26/18 06:07 Dose: 60 mg Lisinopril (Zestril) 10 mg PO DAILY [facility] Last Admin: 09/26/18 09:28 Dose: 10 mg Metoprolol Tartrate (Lopressor) 100 mg PO BRKDIN [facility] Last Admin: 09/26/18 09:28 Dose: 100 mg Nystatin (Nystop Topical Powder) 0 gm TOP TID [facility] Last Admin: 09/26/18 14:10 Dose: 1 applic Pantoprazole Sodium (Protonix Ec Tab) 40 mg PO 0600 [facility] Primidone (Mysoline) 50 mg PO HS [facility] Last Admin: 09/25/18 21:01 Dose: 50 mg - Labs Labs: 09/26/18 06:00 09/26/18 06:00 Attending/Attestation - Attestation I have personally seen and examined this patient.: Yes I have fully participated in the care of the patient.: Yes I have reviewed all pertinent clinical information, including history, physical exam and plan: Yes Notes (Text): 09/26/18 14:29 Attending note; Patient seen and examined with resident. Patient's by the bedside. Patient is alert and awake. Denies any chest pain, shortness of breath. Denies any abdominal pain. getting physical therapy. Denies any back pain. Denies any urinary incontinence. Denies any sensory loss. on dobutamine drip. Patient is a 73-year-old Female with past medical history of CAD s/p CABG, DM, CHF s/p AICD placement, cardiomyopathy, IDDM, neuropathy, PVD, HTN, HLD, ileostomy, chronic hip and knee pain is admitted for bilateral lower extremity weakness and pain. 1. Leg weakness ; Improving slowly. patient has chronic right hip osteoarthritis. Patient also has gait instability due to diabetic neuropathy ,loss of toes and other multiple medical issues. Bilateral lower extremity venous doppler was negative for DVT. continue PT as tolerated. PT recommending BROOK. 2. VALE on CKD; creatinine is improving. 1.5 today.increased urine output after dobutamine drip. 3. Colostomy; continue to monitor output. Stool ova and parasite negative. C. difficile is negative. 4. Cardiomyopathy; cardiology evaluation appreciated. Started on dobutamine drip. Continue aspirin, lisinopril, Lasix and Imdur. 5. T12 compression fracture; age indeterminate. IR evaluation appreciated. No procedures needed at this point. 6. History of AAA graft; currently asymptomatic. vascular surgery evaluation appreciated. endovascular stent in future recommended. 7. diabetic neuropathy; continue Neurontin. Diabetes is diet controlled. we Will follow-up with cardiology closely. The diagnosis, follow-up plan discussed with patient and patient's in detail. Upon discharge the patient will follow-up with PMD Dr. Flannery. 09/26/18 14:30 09/26/18 14:31
[2018-09-26] MEDS ORDERED: Oxycodone/Acetaminophen 5/325 mg Tab PO ONE (23:15)
--- NOTE | 2018-09-27 02:53 | VASCLAB ---
DATE: 09/26/2018 SUBJECTIVE: The patient was able to ambulate around the room with physical therapy yesterday and was feeling better on IV dobutamine. Today, the patient feels weak. PHYSICAL EXAMINATION VITAL SIGNS: Blood pressure is 139/86, heart rate is in the 90s. NECK: Negative JVD. LUNGS: Without rales. HEART: S1, S2. EXTREMITIES: Without edema. LABORATORY DATA: The creatinine is finally coming down from 2.1 to 1.5 on IV dobutamine. Glucose is 153. IMPRESSION: 1. End-stage dilated cardiomyopathy. 2. Low cardiac output syndrome. 3. Improving prerenal picture with intravenous dobutamine. 4. The patient is physically feeling better on intravenous dobutamine and is able to walk. 5. Diabetes mellitus. 6. Coronary artery disease. PLAN: Given these findings, we will increase her IV dobutamine today to 7.5 in hopes of allowing her to increase her activity with physical therapy. Vinnie Vidales MD
[2018-09-27] MEDS: Pantoprazole 40 mg EC Tab PO SCH (05:45)
[2018-09-27 07:12] LABS: BASO # 0.02 K/mm3 (0.0-2.0); BASO % 0.3 % (0.0-3.0); EOS # 0.3 (0.0-0.7); EOS % 3.7 % (1.5-5.0); GRAN # 5.49 (1.4-6.5); GRAN % 69.5 % (50.0-68.0); HEMOGLOBIN 12.5 g/dL (12.0-16.0); LYMPH # 1.2 (1.2-3.4); LYMPH % 15.1 % (22.0-35.0); MEAN CELL VOLUME 92.8 fl (80.0-105.0); MEAN CORPUSCULAR HEMOGLOBIN 28.9 pg (25.0-35.0); MEAN CORPUSCULAR HGB CONC 31.1 g/dl (31.0-37.0); MEAN PLATELET VOLUME 9.8 fl (7.0-11.0); MONO # 0.9 (0.1-0.6); MONO % 11.4 % (1.0-6.0); RBC 4.33 10^6/uL (3.5-6.1); RED CELL DISTRIBUTION WIDTH 16.2 % (11.5-14.5); WHITE BLOOD COUNT 7.9 10^3/uL (4.5-11.0)
--- NOTE | 2018-09-27 07:37 | CP.PCM.PN ---
<Geneva Mckeon - Last Filed: 09/27/18 15:09> Subjective - Date & Time of Evaluation Date of Evaluation: 09/27/18 Time of Evaluation: 07:36 - Subjective Subjective: PGY1 Medicine Progress Note for Dr. Parada Patient was seen and evaluated at bedside this morning. at bedside. No acute events overnight. Patient states lower extremity pain have been improving. Patient is able to tolerate regular diet without issue. Patient able to get out of bed to chair. Patient admits to diarrhea. 12 Point ROS is otherwise unre markable. Objective - Vital Signs/Intake and Output Vital Signs (last 24 hours): Temp Pulse Resp BP Pulse Ox 98.5 F 99 H 19 152/79 H 96 09/27/18 06:00 09/27/18 06:00 09/27/18 06:00 09/27/18 06:00 09/27/18 00:01 Intake and Output: 09/27/18 09/27/18 06:59 18:59 Intake Total 2150 Output Total 1150 Balance 1000 - Medications Medications: Current Medications Ascorbic Acid (Vitamin C 500 Mg Tab) 500 mg PO DAILY [facility] Last Admin: 09/26/18 09:27 Dose: 500 mg Aspirin (Ecotrin) 81 mg PO 0800 [facility] Last Admin: 09/26/18 09:28 Dose: 81 mg Atorvastatin Calcium (Lipitor) 10 mg PO DIN [facility] Last Admin: 09/26/18 17:38 Dose: 10 mg Calcitriol (Rocaltrol) 0.25 mcg PO MWF [facility] Last Admin: 09/25/18 10:29 Dose: 0.25 mcg Calcium Carbonate (Oscal) 500 mg PO DAILY [facility] Last Admin: 09/26/18 09:27 Dose: 500 mg Cholecalciferol (Vitamin D) 1,000 intlu PO DAILY [facility] Last Admin: 09/26/18 09:27 Dose: 1,000 intlu Cyanocobalamin (Vitamin B12 1000 Mcg Tab) 1,000 mcg PO BID [facility] Last Admin: 09/26/18 17:38 Dose: 1,000 mcg Furosemide (Lasix) 40 mg PO DAILY [facility] Last Admin: 09/26/18 09:28 Dose: 40 mg Furosemide (Lasix) 20 mg PO DIN [facility] Last Admin: 09/26/18 17:38 Dose: 20 mg Gabapentin (Neurontin) 100 mg PO TID [facility]; Protocol Last Admin: 09/26/18 17:39 Dose: 100 mg Guaifenesin (Robitussin) 200 mg PO Q4H PRN PRN Reason: Cough and congestion Heparin Sodium (Porcine) (Heparin) 5,000 units SC Q12 [facility]; Protocol Last Admin: 09/26/18 22:09 Dose: 5,000 units Dobutamine HCl/Dextrose (Dobutamine/Dextrose 5% 500mg/250ml) 500 mg in 250 mls @ 18.411 mls/hr IV .[id number] PRN; Protocol PRN Reason: TITRATE PER PROTOCOL Last Admin: 09/26/18 22:02 Dose: 7.5 mcg/kg/min, 18.411 mls/hr Insulin Human Regular (Humulin R Low) 0 units SC ACHS [facility]; Protocol Last Admin: 09/26/18 22:11 Dose: 2 unit Isosorbide Mononitrate (Imdur) 60 mg PO 0600 [facility] Last Admin: 09/27/18 05:46 Dose: 60 mg Lisinopril (Zestril) 10 mg PO DAILY [facility] Last Admin: 09/26/18 09:28 Dose: 10 mg Metoprolol Tartrate (Lopressor) 100 mg PO BRKDIN [facility] Last Admin: 09/26/18 17:39 Dose: 100 mg Nystatin (Nystop Topical Powder) 0 gm TOP TID [facility] Last Admin: 09/26/18 17:40 Dose: 1 applic Pantoprazole Sodium (Protonix Ec Tab) 40 mg PO 0600 [facility] Last Admin: 09/27/18 05:45 Dose: 40 mg Primidone (Mysoline) 50 mg PO HS [facility] Last Admin: 09/26/18 22:08 Dose: 50 mg - Labs Labs: 09/27/18 06:40 09/26/18 06:00 - Additional Findings Additional findings: - Constitutional Appears: Well, Non-toxic, No Acute Distress - Head Exam Head Exam: ATRAUMATIC, NORMAL INSPECTION, NORMOCEPHALIC - Eye Exam Eye Exam: EOMI, Normal appearance, PERRL - Respiratory Exam Respiratory Exam: Decreased Breath Sounds, NORMAL BREATHING PATTERN. absent: Accessory Muscle Use, Rales, Rhonchi, Wheezes, Respiratory Distress, Stridor - Cardiovascular Exam Cardiovascular Exam: RRR, +S1, +S2, Systolic Murmur (cresendo-decrescendo murmur appreciated at R sternal border.). absent: Gallop, Rubs - GI/Abdominal Exam GI & Abdominal Exam: Normal Bowel Sounds, Soft. absent: Firm, Guarding, Tenderness Additional comments: illiostomy bag noted, fecal material noted in bad, output and air noted - Extremities Exam Extremities exam: Positive for: pedal edema (trace), tenderness, pedal pulses present (1+). Negative for: calf tenderness, joint swelling, normal inspection (pt has hx of L 1st and 2nd transmetatarsal amputation) - Back Exam Back exam: NORMAL INSPECTION. absent: CVA tenderness (L), CVA tenderness (R) Additional comments: healing decubitus ulcer - Neurological Exam Neurological exam: Alert, Oriented x3 - Psychiatric Exam Psychiatric exam: Normal Affect, Normal Mood - Skin Skin Exam: Dry, Normal Color, Warm Assessment and Plan - Assessment and Plan (Free Text) Assessment: Patient is a 73-year-old Female with past medical history of CAD s/p CABG, T2DM, CHF s/p AICD placement, IDDM, neuropathy, PVD, HTN, HLD, ileostomy, chronic hip and knee pain who presents to [facility] ED with a chief complaint of bilateral lower extremity weakness and pain. Bilateral lower extremity venous doppler was negative for DVT bilaterally. Patient was also noted to have h yperkalemia and VALE on CKD on initial lab results. Hyperkalemia 2/2 pre-existing CKD vs drug induced hyperkalemia vs Type 4 Renal Tubular Acidosis, Improved - EKG in ED showed no peaked T-waves - Patient takes lisinpril at home - Given in ED: ca++ gluconate, kayexalate and insulin - Repeat BMP - Follow up Urine Na, Cl and K VALE on CKD, Improved - Continue to trend BUN/Cr - Hold all nephrotoxic meds History of CAD s/p CABG: - Continue home ASA, imdur, lopressor History of CHF s/p AICD: - Cardiology consulted (Dr. Vidales) recommendations appreciated Per Cardiology recommendations, Continue Dubutamine 500mg in 250mg IV 5 mcg/kg/min - Continue home meds: Lasix 40mg PO daily Lasix 20mg PO DIN Lisinopril 10mg PO daily Lopressor 100mg PO BRKDIN Isosorbide Mononitrate 60mg PO 0600 Chronic Low Back Pain 2/2 T12 Compression Fracture - Dr. Sarmiento (IR) consulted - Follow-up on recommendations - Appropriate pain management Neuropathy - Patient was started on Gabapentin 100mg TID - Physical Therapy eval and treat - Follow-up on recommendations History of HLD: - Continue home lipitor History of IDDM: - ISS - HscA6d=1.8 - Accu checks ACHS - Hypoglycemia protocol PPX: DVT: Heparin SC Patient seen and case discussed in detail with Dr. Tal Mckeon PGY1 <Gerry Parada - Last Filed: 09/27/18 15:48> Objective - Vital Signs/Intake and Output Vital Signs (last 24 hours): Temp Pulse Resp BP Pulse Ox 98.4 F 84 17 131/70 96 09/27/18 12:00 09/27/18 13:48 09/27/18 12:00 09/27/18 13:48 09/27/18 00:01 Intake and Output: 09/27/18 09/27/18 06:59 18:59 Intake Total 2150 Output Total 1150 Balance 1000 - Medications Medications: Current Medications Ascorbic Acid (Vitamin C 500 Mg Tab) 500 mg PO DAILY [facility] Last Admin: 09/27/18 10:45 Dose: 500 mg Aspirin (Ecotrin) 81 mg PO 0800 [facility] Last Admin: 09/27/18 08:40 Dose: 81 mg Atorvastatin Calcium (Lipitor) 10 mg PO DIN [facility] Last Admin: 09/26/18 17:38 Dose: 10 mg Calcitriol (Rocaltrol) 0.25 mcg PO MWF [facility] Last Admin: 09/27/18 10:45 Dose: 0.25 mcg Calcium Carbonate (Oscal) 500 mg PO DAILY [facility] Last Admin: 09/27/18 10:45 Dose: 500 mg Cholecalciferol (Vitamin D) 1,000 intlu PO DAILY [facility] Last Admin: 09/27/18 10:45 Dose: 1,000 intlu Cyanocobalamin (Vitamin B12 1000 Mcg Tab) 1,000 mcg PO BID [facility] Last Admin: 09/27/18 10:50 Dose: 1,000 mcg Furosemide (Lasix) 40 mg PO DAILY [facility] Last Admin: 09/27/18 10:44 Dose: 40 mg Furosemide (Lasix) 20 mg PO DIN [facility] Last Admin: 09/26/18 17:38 Dose: 20 mg Gabapentin (Neurontin) 100 mg PO TID [facility]; Protocol Last Admin: 09/27/18 13:47 Dose: 100 mg Guaifenesin (Robitussin) 200 mg PO Q4H PRN PRN Reason: Cough and congestion Heparin Sodium (Porcine) (Heparin) 5,000 units SC Q12 [facility]; Protocol Last Admin: 09/27/18 10:47 Dose: 5,000 units Dobutamine HCl/Dextrose (Dobutamine/Dextrose 5% 500mg/250ml) 500 mg in 250 mls @ 12.274 mls/hr IV .[id number] PRN; Protocol PRN Reason: TITRATE PER PROTOCOL Last Admin: 09/27/18 13:48 Dose: 5 mcg/kg/min, 12.274 mls/hr Insulin Human Regular (Humulin R Low) 0 units SC ACHS [facility]; Protocol Last Admin: 09/27/18 13:53 Dose: 2 unit Isosorbide Mononitrate (Imdur) 60 mg PO 0600 [facility] Last Admin: 09/27/18 05:46 Dose: 60 mg Lisinopril (Zestril) 10 mg PO DAILY [facility] Last Admin: 09/27/18 10:45 Dose: 10 mg Metoprolol Tartrate (Lopressor) 100 mg PO BRKDIN [facility] Last Admin: 09/27/18 08:40 Dose: 100 mg Nystatin (Nystop Topical Powder) 0 gm TOP TID [facility] Last Admin: 09/27/18 10:59 Dose: 1 applic Pantoprazole Sodium (Protonix Ec Tab) 40 mg PO 0600 [facility] Last Admin: 09/27/18 05:45 Dose: 40 mg Primidone (Mysoline) 50 mg PO HS [facility] Last Admin: 09/26/18 22:08 Dose: 50 mg - Labs Labs: 09/27/18 06:40 09/27/18 06:40 Attending/Attestation - Attestation I have personally seen and examined this patient.: Yes I have fully participated in the care of the patient.: Yes I have reviewed all pertinent clinical information, including history, physical exam and plan: Yes Notes (Text): 09/27/18 15:45 Attending note; Patient seen and examined with resident. Patient is alert and awake. Denies any chest pain, shortness of breath. Denies any abdominal pain. getting physical therapy. Denies any back pain. Denies any urinary incontinence. Denies any sensory loss. on dobutamine drip. Patient is a 73-year-old Female with past medical history of CAD s/p CABG, DM, CHF s/p AICD placement, cardiomyopathy, IDDM, neuropathy, PVD, HTN, HLD, ileostomy, chronic hip and knee pain is admitted for bilateral lower extremity weakness and pain. 1. Leg weakness ; Improving slowly. patient has chronic right hip osteoarthritis. Patient also has gait instability due to diabetic neuropathy ,loss of toes and other multiple medical issues. Bilateral lower extremity venous doppler was negative for DVT. continue PT as tolerated. PT recommending BROOK. 2. VALE on CKD; creatinine is improving. .increased urine output after dobutamine drip. 3. Colostomy; continue to monitor output. Stool ova and parasite negative. C. difficile is negative. 4. Cardiomyopathy; cardiology evaluation appreciated. Started on dobutamine drip. Continue aspirin, lisinopril, Lasix and Imdur. 5. T12 compression fracture; age indeterminate. IR evaluation appreciated. No procedures needed at this point. 6. History of AAA graft; currently asymptomatic. vascular surgery evaluation appreciated. endovascular stent in future recommended. 7. diabetic neuropathy; continue Neurontin. Diabetes is diet controlled. case discussed with cardiology in detail. We will taper dobutamine drip. closely. continue PT. possible Dc to rehab on sunday. The diagnosis, follow-up plan discussed with patient and patient's in detail. Upon discharge the patient will follow-up with PMD Dr. Flannery. 09/27/18 15:46
[2018-09-27 07:52] LABS: CALCIUM 8.7 mg/dL (8.4-10.5)
[2018-09-27] MEDS: Insulin Reg-LOW-Coverage SC SCH ×4 (08:30→21:37)
[2018-09-27] MEDS: Cholecalciferol 1,000 INTLU TAB PO SCH (10:45)
[2018-09-27] MEDS: Nystatin 100,000 Units/gm Topical Pow(15 gm) TOP SCH ×3 (10:59→17:14)
--- NOTE | 2018-09-27 11:39 | PN ---
DATE: 09/27/2018 CARDIOLOGY FOLLOWUP SUBJECTIVE: The patient is feeling well today. PHYSICAL EXAMINATION: VITAL SIGNS: Blood pressure 147/85, heart rate in the 90s. NECK: Negative JVD. LUNGS: Without rales. HEART: S1, S2. EXTREMITIES: Without edema. LABORATORY DATA: BUN and creatinine is down to 32 and 1.5, glucose is 164, hemoglobin is 12.5. IMPRESSION: 1. End-stage dilated cardiomyopathy. 2. Low cardiac output syndrome. 3. Coronary artery disease. 4. Diabetes mellitus. 5. Weakness, which is improved. 6. Renal insufficiency which is improved on IV dobutamine. PLAN: Given these findings, we will taper the IV dobutamine today to 5 mcg/kg/minute. Physical therapy has been requested again to ambulate the patient. Vinnie Vidales MD
--- NOTE | 2018-09-27 13:22 | CP.PCM.PCO ---
Physician Communication Note - Physician Communication Note Physician Communication Note: no purewick is indicated as outpatient it is a female external catheter.
[2018-09-27] MEDS: DOBUTamine 500mg/250ml D5W 500 MG/250 ML BAG IV PRN (13:48)
[2018-09-28] MEDS: Pantoprazole 40 mg EC Tab PO SCH (05:41)
[2018-09-28] MEDS: Insulin Reg-LOW-Coverage SC SCH ×4 (08:33→21:48)
[2018-09-28] MEDS: Cholecalciferol 1,000 INTLU TAB PO SCH (09:38)
[2018-09-28] MEDS: Enoxaparin 30 mg Syringe SC SCH (09:51)
[2018-09-28] MEDS: Nystatin 100,000 Units/gm Topical Pow(15 gm) TOP SCH ×2 (11:51→15:18)
[2018-09-28] MEDS: DOBUTamine 500mg/250ml D5W 500 MG/250 ML BAG IV PRN (12:16)
--- NOTE | 2018-09-28 12:42 | CP.PCM.PN ---
<Geneva Mckeon - Last Filed: 09/28/18 12:37> Subjective - Date & Time of Evaluation Date of Evaluation: 09/28/18 Time of Evaluation: 12:37 - Subjective Subjective: PGY1 Progress Note for Dr. Parada Patient seen and examined at bedside this morning. Overnight: Patient complained of leg pain (chronic). Patient is currently resting in bed. No new updates at this time. Objective - Vital Signs/Intake and Output Vital Signs (last 24 hours): Temp Pulse Resp BP Pulse Ox 97.5 F L 96 H 18 116/77 95 09/28/18 12:00 09/28/18 12:16 09/28/18 12:00 09/28/18 12:00 09/28/18 05:42 Intake and Output: 09/28/18 09/28/18 06:59 18:59 Intake Total 540 250 Output Total 900 800 Balance -360 -550 - Medications Medications: Current Medications Acetaminophen (Tylenol 325mg Tab) 650 mg PO Q6H PRN PRN Reason: Pain, moderate (4-7) Last Admin: 09/28/18 07:42 Dose: 650 mg Ascorbic Acid (Vitamin C 500 Mg Tab) 500 mg PO DAILY [facility] Last Admin: 09/28/18 09:38 Dose: 500 mg Aspirin (Ecotrin) 81 mg PO 0800 [facility] Last Admin: 09/28/18 08:34 Dose: 81 mg Atorvastatin Calcium (Lipitor) 10 mg PO DIN [facility] Last Admin: 09/27/18 17:13 Dose: 10 mg Calcitriol (Rocaltrol) 0.25 mcg PO MWF [facility] Last Admin: 09/27/18 10:45 Dose: 0.25 mcg Calcium Carbonate (Oscal) 500 mg PO DAILY [facility] Last Admin: 09/28/18 09:47 Dose: 500 mg Cholecalciferol (Vitamin D) 1,000 intlu PO DAILY [facility] Last Admin: 09/28/18 09:38 Dose: 1,000 intlu Cyanocobalamin (Vitamin B12 1000 Mcg Tab) 1,000 mcg PO BID [facility] Last Admin: 09/28/18 09:38 Dose: 1,000 mcg Enoxaparin Sodium (Lovenox) 30 mg SC DAILY [facility]; Protocol Last Admin: 09/28/18 09:51 Dose: 30 mg Furosemide (Lasix) 40 mg PO DAILY [facility] Last Admin: 09/28/18 09:38 Dose: 40 mg Furosemide (Lasix) 20 mg PO DIN [facility] Last Admin: 09/27/18 17:13 Dose: 20 mg Gabapentin (Neurontin) 100 mg PO TID [facility]; Protocol Last Admin: 09/28/18 09:38 Dose: 100 mg Guaifenesin (Robitussin) 200 mg PO Q4H PRN PRN Reason: Cough and congestion Dobutamine HCl/Dextrose (Dobutamine/Dextrose 5% 500mg/250ml) 500 mg in 250 mls @ 12.274 mls/hr IV .[id number] PRN; Protocol PRN Reason: TITRATE PER PROTOCOL Last Admin: 09/28/18 12:16 Dose: 5 mcg/kg/min, 12.274 mls/hr Insulin Human Regular (Humulin R Low) 0 units SC ACHS [facility]; Protocol Last Admin: 09/28/18 11:51 Dose: 2 unit Isosorbide Mononitrate (Imdur) 60 mg PO 0600 [facility] Last Admin: 09/28/18 05:41 Dose: 60 mg Lisinopril (Zestril) 10 mg PO DAILY [facility] Last Admin: 09/28/18 09:38 Dose: 10 mg Metoprolol Tartrate (Lopressor) 100 mg PO BRKDIN [facility] Last Admin: 09/28/18 08:34 Dose: 100 mg Nystatin (Nystop Topical Powder) 0 gm TOP TID [facility] Last Admin: 09/28/18 11:51 Dose: 1 applic Pantoprazole Sodium (Protonix Ec Tab) 40 mg PO 0600 [facility] Last Admin: 09/28/18 05:41 Dose: 40 mg Primidone (Mysoline) 50 mg PO HS [facility] Last Admin: 09/27/18 22:06 Dose: 50 mg - Labs Labs: 09/27/18 06:40 09/27/18 06:40 - Additional Findings Additional findings: - Constitutional Appears: Well, Non-toxic, No Acute Distress - Head Exam Head Exam: ATRAUMATIC, NORMAL INSPECTION, NORMOCEPHALIC - Eye Exam Eye Exam: EOMI, Normal appearance, PERRL - Respiratory Exam Respiratory Exam: Decreased Breath Sounds, NORMAL BREATHING PATTERN. absent: Accessory Muscle Use, Rales, Rhonchi, Wheezes, Respiratory Distress, Stridor - Cardiovascular Exam Cardiovascular Exam: RRR, +S1, +S2, Systolic Murmur (cresendo-decrescendo murmur appreciated at R sternal border.). absent: Gallop, Rubs - GI/Abdominal Exam GI & Abdominal Exam: Normal Bowel Sounds, Soft. absent: Firm, Guarding, Tenderness Additional comments: illiostomy bag noted, fecal material noted in bad, output and air noted - Extremities Exam Extremities exam: Positive for: pedal edema (trace), tenderness, pedal pulses present (1+). Negative for: calf tenderness, joint swelling, normal inspection (pt has hx of L 1st and 2nd transmetatarsal amputation) - Back Exam Back exam: NORMAL INSPECTION. absent: CVA tenderness (L), CVA tenderness (R) Additional comments: healing decubitus ulcer - Neurological Exam Neurological exam: Alert, Oriented x3 - Psychiatric Exam Psychiatric exam: Normal Affect, Normal Mood - Skin Skin Exam: Dry, Normal Color, Warm Assessment and Plan - Assessment and Plan (Free Text) Assessment: Patient is a 73-year-old Female with past medical history of CAD s/p CABG, T2DM, CHF s/p AICD placement, IDDM, neuropathy, PVD, HTN, HLD, ileostomy, chronic hip and knee pain who presents to [facility] ED with a chief complaint o f bilateral lower extremity weakness and pain. Bilateral lower extremity venous doppler was negative for DVT bilaterally. Patient was also noted to have hyperkalemia and VALE on CKD on initial lab results. Hyperkalemia 2/2 pre-existing CKD vs drug induced hyperkalemia vs Type 4 Renal Tubular Acidosis, Improved - EKG in ED showed no peaked T-waves - Patient takes lisinpril at home - Given in ED: ca++ gluconate, kayexalate and insulin - Repeat BMP - Follow up Urine Na, Cl and K VALE on CKD, Improved - Continue to trend BUN/Cr - Hold all nephrotoxic meds History of CAD s/p CABG: - Continue home ASA, imdur, lopressor History of CHF s/p AICD: - Cardiology consulted (Dr. Vidales) recommendations appreciated Per Cardiology recommendations, Continue Dubutamine 500mg in 250mg IV 5 mcg/kg/min - Continue home meds: Lasix 40mg PO daily Lasix 20mg PO DIN Lisinopril 10mg PO daily Lopressor 100mg PO BRKDIN Isosorbide Mononitrate 60mg PO 0600 Chronic Low Back Pain 2/2 T12 Compression Fracture - Dr. Sarmiento (IR) consulted - Follow-up on recommendations - Appropriate pain management Neuropathy - Patient was started on Gabapentin 100mg TID - Physical Therapy eval and treat - Follow-up on recommendations History of HLD: - Continue home lipitor History of IDDM: - ISS - [id number] - Accu checks ACHS - Hypoglycemia protocol PPX: DVT: Heparin SC Patient seen and case discussed in detail with Dr. Tal Mckeon PGY1 <Gerry Parada - Last Filed: 09/29/18 12:16> Objective - Vital Signs/Intake and Output Vital Signs (last 24 hours): Temp Pulse Resp BP Pulse Ox 97.8 F 98 H 20 126/74 97 09/29/18 06:00 09/29/18 08:52 09/29/18 06:00 09/29/18 10:12 09/29/18 06:00 Intake and Output: 09/29/18 09/29/18 06:59 18:59 Intake Total 610 Output Total 450 Balance 160 - Medications Medications: Current Medications Acetaminophen (Tylenol 325mg Tab) 650 mg PO Q6H PRN PRN Reason: Pain, moderate (4-7) Last Admin: 09/29/18 06:19 Dose: 650 mg Amlodipine Besylate (Norvasc) 5 mg PO DAILY [facility] Last Admin: 09/29/18 10:12 Dose: 5 mg Ascorbic Acid (Vitamin C 500 Mg Tab) 500 mg PO DAILY [facility] Last Admin: 09/29/18 10:10 Dose: 500 mg Aspirin (Ecotrin) 81 mg PO 0800 [facility] Last Admin: 09/29/18 08:52 Dose: 81 mg Atorvastatin Calcium (Lipitor) 10 mg PO DIN [facility] Last Admin: 09/28/18 17:27 Dose: 10 mg Calcitriol (Rocaltrol) 0.25 mcg PO MWF [facility] Last Admin: 09/27/18 10:45 Dose: 0.25 mcg Calcium Carbonate (Oscal) 500 mg PO DAILY [facility] Last Admin: 09/29/18 10:10 Dose: 500 mg Cholecalciferol (Vitamin D) 1,000 intlu PO DAILY [facility] Last Admin: 09/29/18 10:10 Dose: 1,000 intlu Cyanocobalamin (Vitamin B12 1000 Mcg Tab) 1,000 mcg PO BID [facility] Last Admin: 09/29/18 10:10 Dose: 1,000 mcg Enoxaparin Sodium (Lovenox) 30 mg SC DAILY [facility]; Protocol Last Admin: 09/29/18 10:11 Dose: 30 mg Furosemide (Lasix) 40 mg PO DAILY [facility] Last Admin: 09/29/18 10:11 Dose: 40 mg Gabapentin (Neurontin) 100 mg PO TID [facility]; Protocol Last Admin: 09/29/18 10:10 Dose: 100 mg Guaifenesin (Robitussin) 200 mg PO Q4H PRN PRN Reason: Cough and congestion Dobutamine HCl/Dextrose (Dobutamine/Dextrose 5% 500mg/250ml) 500 mg in 250 mls @ 6.137 mls/hr IV .Q24H PRN; Protocol PRN Reason: TITRATE PER PROTOCOL Insulin Human Regular (Humulin R Low) 0 units SC ACHS [facility]; Protocol Last Admin: 09/29/18 08:50 Dose: 1 unit Isosorbide Mononitrate (Imdur) 60 mg PO 0600 [facility] Last Admin: 09/29/18 05:12 Dose: 60 mg Lisinopril (Zestril) 10 mg PO DAILY [facility] Last Admin: 09/28/18 09:38 Dose: 10 mg Metoprolol Tartrate (Lopressor) 100 mg PO BRKDIN [facility] Last Admin: 09/29/18 08:52 Dose: 100 mg Nystatin (Nystop Topical Powder) 0 gm TOP TID [facility] Last Admin: 09/29/18 10:12 Dose: 1 applic Pantoprazole Sodium (Protonix Ec Tab) 40 mg PO 0600 [facility] Last Admin: 09/29/18 05:12 Dose: 40 mg Primidone (Mysoline) 50 mg PO HS [facility] Last Admin: 09/28/18 21:28 Dose: 50 mg - Labs Labs: 09/29/18 07:00 09/29/18 07:00 Attending/Attestation - Attestation I have personally seen and examined this patient.: Yes I have fully participated in the care of the patient.: Yes I have reviewed all pertinent clinical information, including history, physical exam and plan: Yes Notes (Text): Attending note; Patient seen and examined with resident. Patient is alert and awake. Denies any chest pain, shortness of breath. Denies any abdominal pain. getting physical therapy. Denies any back pain. Denies any urinary incontinence. Denies any sensory loss. on dobutamine drip. Patient is a 73-year-old Female with past medical history of CAD s/p CABG, DM, CHF s/p AICD placement, cardiomyopathy, IDDM, neuropathy, PVD, HTN, HLD, ileostomy, chronic hip and knee pain is admitted for bilateral lower extremity weakness and pain. 1. Leg weakness ; Improving slowly. patient has chronic right hip osteoarthritis. Patient also has gait instability due to diabetic neuropathy ,loss of toes and other multiple medical issues. Bilateral lower extremity venous doppler was negative for DVT. continue PT as tolerated. PT recommending BROOK. 2. VALE on CKD; creatinine is improving. .increased urine output after dobutamine drip. 3. Colostomy; continue to monitor output. Stool ova and parasite negative. C. difficile is negative. 4. Cardiomyopathy; cardiology evaluation appreciated. Started on dobutamine drip. Continue aspirin, lisinopril, Lasix and Imdur. 5. T12 compression fracture; age indeterminate. IR evaluation appreciated. No procedures needed at this point. 6. History of AAA graft; currently asymptomatic. vascular surgery evaluation appreciated. endovascular stent in future recommended. 7. diabetic neuropathy; continue Neurontin. Diabetes is diet controlled. case discussed with cardiology in detail. We will taper dobutamine drip. possible Dc to rehab on sunday. The diagnosis, follow-up plan discussed with patient and patient's in detail. Upon discharge the patient will follow-up with PMD Dr. Flannery.
--- NOTE | 2018-09-28 12:47 | CP.PCM.PN ---
Subjective - Date & Time of Evaluation Date of Evaluation: 09/28/18 Time of Evaluation: 12:44 - Subjective Subjective: PGY1 Progress Note for Dr. Parada Patient seen and examined at dialysis this morning. No acute nursing events ove rnight. Patient consented for PRBC transfusion during dialysis today. 12 Point ROS is otherwise unremarkable. Objective - Vital Signs/Intake and Output Vital Signs (last 24 hours): Temp Pulse Resp BP Pulse Ox 97.5 F L 96 H 18 116/77 95 09/28/18 12:00 09/28/18 12:16 09/28/18 12:00 09/28/18 12:00 09/28/18 05:42 Intake and Output: 09/28/18 09/28/18 06:59 18:59 Intake Total 540 250 Output Total 900 800 Balance -360 -550 - Medications Medications: Current Medications Acetaminophen (Tylenol 325mg Tab) 650 mg PO Q6H PRN PRN Reason: Pain, moderate (4-7) Last Admin: 09/28/18 07:42 Dose: 650 mg Ascorbic Acid (Vitamin C 500 Mg Tab) 500 mg PO DAILY [facility] Last Admin: 09/28/18 09:38 Dose: 500 mg Aspirin (Ecotrin) 81 mg PO 0800 [facility] Last Admin: 09/28/18 08:34 Dose: 81 mg Atorvastatin Calcium (Lipitor) 10 mg PO DIN [facility] Last Admin: 09/27/18 17:13 Dose: 10 mg Calcitriol (Rocaltrol) 0.25 mcg PO MWF [facility] Last Admin: 09/27/18 10:45 Dose: 0.25 mcg Calcium Carbonate (Oscal) 500 mg PO DAILY [facility] Last Admin: 09/28/18 09:47 Dose: 500 mg Cholecalciferol (Vitamin D) 1,000 intlu PO DAILY [facility] Last Admin: 09/28/18 09:38 Dose: 1,000 intlu Cyanocobalamin (Vitamin B12 1000 Mcg Tab) 1,000 mcg PO BID [facility] Last Admin: 09/28/18 09:38 Dose: 1,000 mcg Enoxaparin Sodium (Lovenox) 30 mg SC DAILY [facility]; Protocol Last Admin: 09/28/18 09:51 Dose: 30 mg Furosemide (Lasix) 40 mg PO DAILY [facility] Last Admin: 09/28/18 09:38 Dose: 40 mg Furosemide (Lasix) 20 mg PO DIN [facility] Last Admin: 09/27/18 17:13 Dose: 20 mg Gabapentin (Neurontin) 100 mg PO TID [facility]; Protocol Last Admin: 09/28/18 09:38 Dose: 100 mg Guaifenesin (Robitussin) 200 mg PO Q4H PRN PRN Reason: Cough and congestion Dobutamine HCl/Dextrose (Dobutamine/Dextrose 5% 500mg/250ml) 500 mg in 250 mls @ 12.274 mls/hr IV .[id number] PRN; Protocol PRN Reason: TITRATE PER PROTOCOL Last Admin: 09/28/18 12:16 Dose: 5 mcg/kg/min, 12.274 mls/hr Insulin Human Regular (Humulin R Low) 0 units SC ACHS [facility]; Protocol Last Admin: 09/28/18 11:51 Dose: 2 unit Isosorbide Mononitrate (Imdur) 60 mg PO 0600 [facility] Last Admin: 09/28/18 05:41 Dose: 60 mg Lisinopril (Zestril) 10 mg PO DAILY [facility] Last Admin: 09/28/18 09:38 Dose: 10 mg Metoprolol Tartrate (Lopressor) 100 mg PO BRKDIN [facility] Last Admin: 09/28/18 08:34 Dose: 100 mg Nystatin (Nystop Topical Powder) 0 gm TOP TID [facility] Last Admin: 09/28/18 11:51 Dose: 1 applic Pantoprazole Sodium (Protonix Ec Tab) 40 mg PO 0600 [facility] Last Admin: 09/28/18 05:41 Dose: 40 mg Primidone (Mysoline) 50 mg PO HS [facility] Last Admin: 09/27/18 22:06 Dose: 50 mg - Labs Labs: 09/27/18 06:40 09/27/18 06:40 - Additional Findings Additional findings: - Constitutional Appears: Well - Head Exam Head Exam: NORMAL INSPECTION, NORMOCEPHALIC - Eye Exam Eye Exam: EOMI, Normal appearance - ENT Exam ENT Exam: Mucous Membranes Moist, Normal Exam - Neck Exam Neck Exam: Normal Inspection - Respiratory Exam Respiratory Exam: Clear to Ausculation Bilateral, NORMAL BREATHING PATTERN - Cardiovascular Exam Cardiovascular Exam: REGULAR RHYTHM, +S1, +S2 - GI/Abdominal Exam GI & Abdominal Exam: Soft. absent: Tenderness - Extremities Exam Extremities Exam: Normal Inspection. absent: Calf Tenderness - Back Exam Back Exam: NORMAL INSPECTION - Neurological Exam Neurological Exam: Alert, Awake, Oriented x3 - Psychiatric Exam Psychiatric exam: Normal Affect, Normal Mood - Skin Skin Exam: Dry, Intact, Warm
--- NOTE | 2018-09-28 13:58 | PN ---
DATE: 09/28/2018 REASON FOR CONSULTATION: Decompensated congestive heart failure, cardiomyopathy ischemic. REASON FOR DICTATION: Covering Dr. Vidales. SUBJECTIVE: The patient denies any chest pain, shortness of breath, any palpitations. Feels better. OBJECTIVE: GENERAL: Not in apparent distress. VITAL SIGNS: Temperature afebrile, heart rate 90, blood pressure 132/89. HEENT: PERRLA. Extraocular muscles intact. NECK: Supple. No carotid bruit or thyromegaly. CHEST: Clear to auscultation. HEART: S1 and S2, regular. ABDOMEN: Soft. EXTREMITIES: Clubbing, cyanosis negative. LABORATORY DATA: Blood workup as follows: WBC 7.9, hemoglobin 12.5, hematocrit 40.2, platelet count 167. Chemistries show sodium 131, potassium 4, chloride 103, carbon dioxide 23, anion gap of 10, BUN 32, creatinine 1.5. . IMPRESSION: A 73-year-old female with past medical history significant for coronary artery disease, status post coronary artery bypass graft, cardiomyopathy, diabetes, hypertension, hyperlipidemia, renal sufficiency, history of compression fracture most likely chronic, acute decompensated heart failure secondary to systolic dysfunction. RECOMMENDATION: Continue Dobutrex, continue Lasix, continue metoprolol, continue lisinopril. Monitor renal function, follow up electrolytes. We will get a mag phos level in the morning. We will put DVT prophylaxis and add mag and phos level in the morning. We will transfer care Sunday to Dr. Vidales. Ejection fraction 20% in the past. We will get TSH level also in the morning. We will follow with you. Thank you Dr. Parada for providing us the opportunity in taking of the patient, Pako Moise. Sofía Pillai MD cc: Gerry Parada MD
[2018-09-29] MEDS: Pantoprazole 40 mg EC Tab PO SCH (05:12)
[2018-09-29] MEDS: DOBUTamine 500mg/250ml D5W 500 MG/250 ML BAG IV PRN (06:31)
[2018-09-29 07:52] LABS: CALCIUM 8.4 mg/dL (8.4-10.5)
[2018-09-29 08:07] LABS: HEMOGLOBIN 12.2 g/dL (12.0-16.0); MEAN CELL VOLUME 92.7 fl (80.0-105.0); MEAN CORPUSCULAR HEMOGLOBIN 28.9 pg (25.0-35.0); MEAN CORPUSCULAR HGB CONC 31.2 g/dl (31.0-37.0); MEAN PLATELET VOLUME 9.9 fl (7.0-11.0); RBC 4.22 10^6/uL (3.5-6.1)
[2018-09-29] MEDS: Insulin Reg-LOW-Coverage SC SCH ×4 (08:50→22:32)
[2018-09-29] MEDS ORDERED: DOBUTamine 500mg/250ml D5W 500 MG/250 ML BAG IV PRN ×2 (08:52→12:22)
[2018-09-29] MEDS: Cholecalciferol 1,000 INTLU TAB PO SCH (10:10)
[2018-09-29] MEDS: Enoxaparin 30 mg Syringe SC SCH (10:11)
[2018-09-29] MEDS: Nystatin 100,000 Units/gm Topical Pow(15 gm) TOP SCH ×3 (10:12→17:34)
--- NOTE | 2018-09-29 10:15 | RAD ---
Date of service: 09/29/2018 HISTORY: CHF COMPARISON: Comparison chest 08/03/2018. FINDINGS: Situ right-sided IJ MediPort unchanged LUNGS: Pulmonary venous congestive changes with bibasilar atelectasis and small bilateral effusions. PLEURA: As above. No pneumothorax apparent. CARDIOVASCULAR: No aortic atherosclerotic calcification present. Cardiomegaly. Redemonstrated bipolar pacemaker. OSSEOUS STRUCTURES: No significant abnormalities. VISUALIZED UPPER ABDOMEN: Normal. OTHER FINDINGS: None. IMPRESSION: Mild pulmonary venous congestive changes bibasilar atelectasis and small effusions.
--- NOTE | 2018-09-29 10:50 | CP.PCM.PN ---
<Geneva Mckeon - Last Filed: 09/29/18 10:47> Subjective - Date & Time of Evaluation Date of Evaluation: 09/29/18 Time of Evaluation: 10:47 - Subjective Subjective: PGY1 Medicine Progress Note for Dr. Parada Patient was seen and evaluated at bedside this morning. Tolerating breakfast. On dobutamine drip. No acute events overnight. Patient states lower extremity pain have been improving.Patient able to get out of bed to chair. Patient admits to diarrhea. 12 Point ROS is otherwise unremarkable. Objective - Vital Signs/Intake and Output Vital Signs (last 24 hours): Temp Pulse Resp BP Pulse Ox 97.8 F 98 H 20 126/74 97 09/29/18 06:00 09/29/18 08:52 09/29/18 06:00 09/29/18 10:12 09/29/18 06:00 Intake and Output: 09/29/18 09/29/18 06:59 18:59 Intake Total 610 Output Total 450 Balance 160 - Medications Medications: Current Medications Acetaminophen (Tylenol 325mg Tab) 650 mg PO Q6H PRN PRN Reason: Pain, moderate (4-7) Last Admin: 09/29/18 06:19 Dose: 650 mg Amlodipine Besylate (Norvasc) 5 mg PO DAILY [facility] Last Admin: 09/29/18 10:12 Dose: 5 mg Ascorbic Acid (Vitamin C 500 Mg Tab) 500 mg PO DAILY [facility] Last Admin: 09/29/18 10:10 Dose: 500 mg Aspirin (Ecotrin) 81 mg PO 0800 [facility] Last Admin: 09/29/18 08:52 Dose: 81 mg Atorvastatin Calcium (Lipitor) 10 mg PO DIN [facility] Last Admin: 09/28/18 17:27 Dose: 10 mg Calcitriol (Rocaltrol) 0.25 mcg PO MWF [facility] Last Admin: 09/27/18 10:45 Dose: 0.25 mcg Calcium Carbonate (Oscal) 500 mg PO DAILY [facility] Last Admin: 09/29/18 10:10 Dose: 500 mg Cholecalciferol (Vitamin D) 1,000 intlu PO DAILY [facility] Last Admin: 09/29/18 10:10 Dose: 1,000 intlu Cyanocobalamin (Vitamin B12 1000 Mcg Tab) 1,000 mcg PO BID [facility] Last Admin: 09/29/18 10:10 Dose: 1,000 mcg Enoxaparin Sodium (Lovenox) 30 mg SC DAILY [facility]; Protocol Last Admin: 09/29/18 10:11 Dose: 30 mg Furosemide (Lasix) 40 mg PO DAILY [facility] Last Admin: 09/29/18 10:11 Dose: 40 mg Furosemide (Lasix) 20 mg PO DIN [facility] Last Admin: 09/28/18 17:27 Dose: 20 mg Gabapentin (Neurontin) 100 mg PO TID [facility]; Protocol Last Admin: 09/29/18 10:10 Dose: 100 mg Guaifenesin (Robitussin) 200 mg PO Q4H PRN PRN Reason: Cough and congestion Dobutamine HCl/Dextrose (Dobutamine/Dextrose 5% 500mg/250ml) 500 mg in 250 mls @ 6.137 mls/hr IV .Q24H PRN; Protocol PRN Reason: TITRATE PER PROTOCOL Insulin Human Regular (Humulin R Low) 0 units SC ACHS [facility]; Protocol Last Admin: 09/29/18 08:50 Dose: 1 unit Isosorbide Mononitrate (Imdur) 60 mg PO 0600 [facility] Last Admin: 09/29/18 05:12 Dose: 60 mg Lisinopril (Zestril) 10 mg PO DAILY [facility] Last Admin: 09/28/18 09:38 Dose: 10 mg Metoprolol Tartrate (Lopressor) 100 mg PO BRKDIN [facility] Last Admin: 09/29/18 08:52 Dose: 100 mg Nystatin (Nystop Topical Powder) 0 gm TOP TID [facility] Last Admin: 09/29/18 10:12 Dose: 1 applic Pantoprazole Sodium (Protonix Ec Tab) 40 mg PO 0600 [facility] Last Admin: 09/29/18 05:12 Dose: 40 mg Primidone (Mysoline) 50 mg PO HS [facility] Last Admin: 09/28/18 21:28 Dose: 50 mg - Labs Labs: 09/29/18 07:00 09/29/18 07:00 - Additional Findings Additional findings: - Constitutional Appears: Well, Non-toxic, No Acute Distress - Head Exam Head Exam: ATRAUMATIC, NORMAL INSPECTION, NORMOCEPHALIC - Eye Exam Eye Exam: EOMI, Normal appearance, PERRL - Respiratory Exam Respiratory Exam: Decreased Breath Sounds, NORMAL BREATHING PATTERN. absent: Accessory Muscle Use, Rales, Rhonchi, Wheezes, Respiratory Distress, Stridor - Cardiovascular Exam Cardiovascular Exam: RRR, +S1, +S2, Systolic Murmur (cresendo-decrescendo murmur appreciated at R sternal border.). absent: Gallop, Rubs - GI/Abdominal Exam GI & Abdominal Exam: Normal Bowel Sounds, Soft. absent: Firm, Guarding, Tenderness Additional comments: illiostomy bag noted, fecal material noted in bad, output and air noted - Extremities Exam Extremities exam: Positive for: pedal edema (trace), tenderness, pedal pulses present (1+). Negative for: calf tenderness, joint swelling, normal inspection (pt has hx of L 1st and 2nd transmetatarsal amputation) - Back Exam Back exam: NORMAL INSPECTION. absent: CVA tenderness (L), CVA tenderness (R) Additional comments: healing decubitus ulcer - Neurological Exam Neurological exam: Alert, Oriented x3 - Psychiatric Exam Psychiatric exam: Normal Affect, Normal Mood - Skin Skin Exam: Dry, Normal Color, Warm Assessment and Plan - Assessment and Plan (Free Text) Assessment: Patient is a 73-year-old Female with past medical history of CAD s/p CABG, T2DM, CHF s/p AICD placement, IDDM, neuropathy, PVD, HTN, HLD, ileostomy, chronic hip and knee pain who presents to [facility] ED with a chief complaint of bilateral lower extremity weakness and pain. Bilateral lower extremity venous doppler was negative for DVT bilaterally. Patient was also noted to have hyperkalemia and VALE on CKD on initial lab results. CHF s/p AICD: - Cardiology consulted (Dr. Vidales) recommendations appreciated Per Cardiology recommendations, titrated: Dubutamine 500mg in 250mg IV 2.5 mcg/kg/min - Continue home meds: Lasix 40mg PO daily Lasix 20mg PO DIN Lisinopril 10mg PO daily Lopressor 100mg PO BRKDIN Isosorbide Mononitrate 60mg PO 0600 - Chest X-ray obtained 09/29/18: Mild pulmonary venous congestive changes bibasilar atelectasis and small effusions (see report for details) Hyperkalemia 2/2 pre-existing CKD vs drug induced hyperkalemia vs Type 4 Renal Tubular Acidosis, Improved - EKG in ED showed no peaked T-waves - Patient takes lisinpril at home - Given in ED: ca++ gluconate, kayexalate and insulin - Repeat BMP - Follow up Urine Na, Cl and K VALE on CKD, Improved - Continue to trend BUN/Cr - Hold all nephrotoxic meds History of CAD s/p CABG: - Continue home ASA, imdur, lopressor Chronic Low Back Pain 2/2 T12 Compression Fracture - Dr. Sarmiento (IR) consulted - Follow-up on recommendations - Appropriate pain management Neuropathy - Patient was started on Gabapentin 100mg TID - Physical Therapy eval and treat - Follow-up on recommendations History of HLD: - Continue home lipitor History of IDDM: - ISS - [id number] - Accu checks ACHS - Hypoglycemia protocol PPX: DVT: Heparin SC Patient seen and case discussed in detail with Dr. Tal Mckeon PGY1 <Gerry Parada - Last Filed: 09/29/18 12:28> Objective - Vital Signs/Intake and Output Vital Signs (last 24 hours): Temp Pulse Resp BP Pulse Ox 97.8 F 98 H 20 126/74 97 09/29/18 06:00 09/29/18 08:52 09/29/18 06:00 09/29/18 10:12 09/29/18 06:00 Intake and Output: 09/29/18 09/29/18 06:59 18:59 Intake Total 610 Output Total 450 Balance 160 - Medications Medications: Current Medications Acetaminophen (Tylenol 325mg Tab) 650 mg PO Q6H PRN PRN Reason: Pain, moderate (4-7) Last Admin: 09/29/18 06:19 Dose: 650 mg Amlodipine Besylate (Norvasc) 5 mg PO DAILY [facility] Last Admin: 09/29/18 10:12 Dose: 5 mg Ascorbic Acid (Vitamin C 500 Mg Tab) 500 mg PO DAILY [facility] Last Admin: 09/29/18 10:10 Dose: 500 mg Aspirin (Ecotrin) 81 mg PO 0800 [facility] Last Admin: 09/29/18 08:52 Dose: 81 mg Atorvastatin Calcium (Lipitor) 10 mg PO DIN [facility] Last Admin: 09/28/18 17:27 Dose: 10 mg Calcitriol (Rocaltrol) 0.25 mcg PO MWF [facility] Last Admin: 09/27/18 10:45 Dose: 0.25 mcg Calcium Carbonate (Oscal) 500 mg PO DAILY [facility] Last Admin: 09/29/18 10:10 Dose: 500 mg Cholecalciferol (Vitamin D) 1,000 intlu PO DAILY [facility] Last Admin: 09/29/18 10:10 Dose: 1,000 intlu Cyanocobalamin (Vitamin B12 1000 Mcg Tab) 1,000 mcg PO BID [facility] Last Admin: 09/29/18 10:10 Dose: 1,000 mcg Enoxaparin Sodium (Lovenox) 30 mg SC DAILY [facility]; Protocol Last Admin: 09/29/18 10:11 Dose: 30 mg Furosemide (Lasix) 40 mg PO BID [facility] Gabapentin (Neurontin) 100 mg PO TID [facility]; Protocol Last Admin: 09/29/18 10:10 Dose: 100 mg Guaifenesin (Robitussin) 200 mg PO Q4H PRN PRN Reason: Cough and congestion Dobutamine HCl/Dextrose (Dobutamine/Dextrose 5% 500mg/250ml) 500 mg in 250 mls @ 12.274 mls/hr IV .[id number] PRN; Protocol PRN Reason: TITRATE PER PROTOCOL Insulin Human Regular (Humulin R Low) 0 units SC ACHS [facility]; Protocol Last Admin: 09/29/18 12:23 Dose: 2 unit Isosorbide Mononitrate (Imdur) 60 mg PO 0600 [facility] Last Admin: 09/29/18 05:12 Dose: 60 mg Lisinopril (Zestril) 10 mg PO DAILY [facility] Last Admin: 09/28/18 09:38 Dose: 10 mg Metoprolol Tartrate (Lopressor) 100 mg PO BRKDIN [facility] Last Admin: 09/29/18 08:52 Dose: 100 mg Nystatin (Nystop Topical Powder) 0 gm TOP TID [facility] Last Admin: 09/29/18 10:12 Dose: 1 applic Pantoprazole Sodium (Protonix Ec Tab) 40 mg PO 0600 [facility] Last Admin: 09/29/18 05:12 Dose: 40 mg Primidone (Mysoline) 50 mg PO HS [facility] Last Admin: 09/28/18 21:28 Dose: 50 mg - Labs Labs: 09/29/18 07:00 09/29/18 07:00 Attending/Attestation - Attestation I have personally seen and examined this patient.: Yes I have fully participated in the care of the patient.: Yes I have reviewed all pertinent clinical information, including history, physical exam and plan: Yes Notes (Text): 09/29/18 12:26 Attending note; Patient seen and examined with resident. Patient is alert and awake. Denies any chest pain, shortness of breath. Denies any abdominal pain. denies any fevers, chills. on dobutamine drip. Patient is a 73-year-old Female with past medical history of CAD s/p CABG, DM, CHF s/p AICD placement, cardiomyopathy, IDDM, neuropathy, PVD, HTN, HLD, ileostomy, chronic hip and knee pain is admitted for bilateral lower extremity weakness and pain. 1. Leg weakness ; Improving slowly. patient has chronic right hip osteoarthritis. Patient also has gait instability due to diabetic neuropathy ,loss of toes and other multiple medical issues. Bilateral lower extremity venous doppler was negative for DVT. continue PT as tolerated. PT recommending BROOK. Out of bed to chair recommended. nursing staff informed. Incentive spirometry ordered. 2. VALE on CKD; creatinine is improving. .increased urine output after dobutamine drip. 3. Colostomy; continue to monitor output. Stool ova and parasite negative. C. difficile is negative. 4. Cardiomyopathy; cardiology evaluation appreciated. Started on dobutamine drip. Continue aspirin, lisinopril, Lasix and Imdur. repeat chest x-ray showed congestion. Lasix dosage increased. 5. T12 compression fracture; age indeterminate. IR evaluation appreciated. No procedures needed at this point. 6. History of AAA graft; currently asymptomatic. vascular surgery evaluation appreciated. endovascular stent in future recommended. 7. diabetic neuropathy; continue Neurontin. Diabetes is diet controlled. 8. mild hyponatremia; fluid restriction ordered. continue dopamine drip. plan for rehabilitation once stabilized. We will follow up with case hardener tomorrow. Upon discharge the patient will follow-up with PMD Dr. Flannery. 09/29/18 12:28
--- NOTE | 2018-09-29 15:16 | PN ---
DATE: 09/29/2018 REASON FOR CONSULTATION AND FOLLOWUP: Decompensated congestive heart failure, cardiomyopathy ischemic, and history of CABG. COVERING DOCTOR: Vinnie Vidales MD SUBJECTIVE: The patient denied any chest pain, shortness of breath, or any palpitation. Feels a lot better. PHYSICAL EXAMINATION: VITAL SIGNS: Temperature afebrile, heart rate 90, and blood pressure 132/94. HEENT: PERRLA, intact. NECK: Supple. No carotid bruit or thyromegaly. CHEST: Clear to auscultation. HEART: S1 and S2 regular. ABDOMEN: Soft. EXTREMITIES: Clubbing and cyanosis negative. LABORATORY DATA: Blood workup as follows: WBC 9, hemoglobin 12.2, hematocrit 39.1, and platelet count 181. Chemistries showed sodium 130, potassium 4.7, chloride 101, carbon dioxide 21, anion gap 12, BUN 39, and creatinine 1.8. IMPRESSION: A 73-year-old female with a past medical history significant for coronary artery disease, coronary artery bypass graft, and ischemic cardiomyopathy, admitted with acute decompensated congestive heart failure, renal insufficiency, hypertension, hyperlipidemia, history of compression fracture, congestive heart failure secondary to systolic dysfunction acute on chronic. RECOMMENDATIONS: Continue Dobutrex 2.5 mcg, continue baby aspirin, continue Imdur, and Lasix to p.o. Repeat the blood workup in the morning. Continue lisinopril 10 mg. We will repeat the lab in the morning. If the patient's creatinine is 1.5 today, further we will hold Lasix at bedtime. We will continue p.o. Lasix in the morning and we will also hold FIDEL inhibitors because of the worsening renal insufficiency. We will put and we will hold p.o. Lasix as well at night. We will continue p.o. Lasix in the morning. Repeat the lab in the morning and we will transfer care tomorrow to Dr. Vinnie Vidales. Thank you for providing us the opportunity in taking care of the patient, Pako Moise. Sofía Pillai MD
[2018-09-29] MEDS: Oxycodone/Acetaminophen 5/325 mg Tab PO PRN (16:34)
[2018-09-29] MEDS ORDERED: Albuterol-Ipratrop 3 mg / 0.5 (3 ml) UD IH STA (18:01)
[2018-09-30] MEDS: Pantoprazole 40 mg EC Tab PO SCH (05:45)
[2018-09-30] MEDS: Oxycodone/Acetaminophen 5/325 mg Tab PO PRN ×4 (05:45→22:40)
[2018-09-30 07:07] LABS: CALCIUM 8.3 mg/dL (8.4-10.5)
--- NOTE | 2018-09-30 09:38 | PN ---
CARDIOLOGY FOLLOWUP DATE: 09/30/2018 SUBJECTIVE: The patient is without shortness of breath. PHYSICAL EXAMINATION: VITAL SIGNS: Blood pressure 143/80 and heart rate in the 80s. NECK: Negative JVD. LUNGS: Decreased breath sounds. HEART: Reveal S1 and S2. EXTREMITIES: Without edema. LABORATORY DATA: His hemoglobin is 12.2. Chemistries, BUN and creatinine is 47 and 2.1. IMPRESSION: 1. Congestive heart failure which is better. 2. End-stage dilated cardiomyopathy. 3. Renal insufficiency. 4. Diabetes mellitus. 5. Anemia. Given these findings, we will discontinue her IV dobutamine today. The patient is complaining of pain in her port, we will need to have that checked and possibly removed prior to transfer to rehab. If she comes back with recurrent CHF, we will consider reinstituting IV dobutamine. Vinnie Vidales MD
[2018-09-30] MEDS: Insulin Reg-LOW-Coverage SC SCH ×4 (09:50→21:43)
[2018-09-30] MEDS: Cholecalciferol 1,000 INTLU TAB PO SCH (09:51)
[2018-09-30] MEDS: Enoxaparin 30 mg Syringe SC SCH (09:52)
[2018-09-30] MEDS: Nystatin 100,000 Units/gm Topical Pow(15 gm) TOP SCH ×4 (10:22→19:38)
[2018-09-30 10:49] LABS: BASO # 0.02 K/mm3 (0.0-2.0); BASO % 0.2 % (0.0-3.0); EOS # 0.2 (0.0-0.7); EOS % 1.9 % (1.5-5.0); GRAN # 6.86 (1.4-6.5); HEMOGLOBIN 12.6 g/dL (12.0-16.0); MEAN CORPUSCULAR HEMOGLOBIN 29.3 pg (25.0-35.0); MEAN CORPUSCULAR HGB CONC 31.5 g/dl (31.0-37.0); MONO # 0.8 (0.1-0.6); MONO % 8.9 % (1.0-6.0); RBC 4.3 10^6/uL (3.5-6.1); RED CELL DISTRIBUTION WIDTH 15.8 % (11.5-14.5); WHITE BLOOD COUNT 8.8 10^3/uL (4.5-11.0)
--- NOTE | 2018-09-30 12:30 | CP.PCM.PCO ---
Physician Communication Note - Physician Communication Note Physician Communication Note: port will need to be removed Danay Rodrigues consulted
[2018-09-30] MEDS ORDERED: Albuterol 0.083% Inhal Sol (2.5 mg/3 mL) UD INH STA (14:02)
[2018-09-30] MEDS ORDERED: Albuterol 0.083% Inhal Sol (2.5 mg/3 mL) UD ONE (14:04)
--- NOTE | 2018-09-30 15:49 | CP.PCM.PN ---
Subjective - Date & Time of Evaluation Date of Evaluation: 09/30/18 Time of Evaluation: 15:46 - Subjective Subjective: PGY1 Medicine Progress Note for Dr. Ventura Patient was seen and evaluated at bedside this morning. Tolerating breakfast. Patient off dobutamine drip. Patient complained that the site of her port has been irritating and itching her. Patient also states that she felt short of breath last evening, but was able to get rest overnight. Patient states lower extremity pain have been improving. Patient able to get out of bed to chair. 12 Point ROS is otherwise unremarkable. Objective - Vital Signs/Intake and Output Vital Signs (last 24 hours): Temp Pulse Resp BP Pulse Ox 98.9 F 66 18 88/55 L 99 09/30/18 12:00 09/30/18 12:00 09/30/18 12:00 09/30/18 12:00 09/30/18 06:00 Intake and Output: 09/30/18 09/30/18 06:59 18:59 Intake Total 2387 Output Total 600 Balance 1787 - Medications Medications: Current Medications Acetaminophen (Tylenol 325mg Tab) 650 mg PO Q6H PRN PRN Reason: Pain, moderate (4-7) Last Admin: 09/30/18 14:10 Dose: 650 mg Amlodipine Besylate (Norvasc) 5 mg PO DAILY [facility] Last Admin: 09/30/18 09:52 Dose: 5 mg Ascorbic Acid (Vitamin C 500 Mg Tab) 500 mg PO DAILY [facility] Last Admin: 09/30/18 09:51 Dose: 500 mg Aspirin (Ecotrin) 81 mg PO 0800 [facility] Last Admin: 09/30/18 09:52 Dose: 81 mg Atorvastatin Calcium (Lipitor) 10 mg PO DIN [facility] Last Admin: 09/29/18 17:34 Dose: 10 mg Bacitracin (Bacitracin) 1 gm TOP BID [facility] Calcitriol (Rocaltrol) 0.25 mcg PO MWF [facility] Last Admin: 09/30/18 09:51 Dose: 0.25 mcg Calcium Carbonate (Oscal) 500 mg PO DAILY [facility] Last Admin: 09/30/18 09:57 Dose: 500 mg Cholecalciferol (Vitamin D) 1,000 intlu PO DAILY [facility] Last Admin: 09/30/18 09:51 Dose: 1,000 intlu Cyanocobalamin (Vitamin B12 1000 Mcg Tab) 1,000 mcg PO BID [facility] Last Admin: 09/30/18 09:52 Dose: 1,000 mcg Enoxaparin Sodium (Lovenox) 30 mg SC DAILY [facility]; Protocol Last Admin: 09/30/18 09:52 Dose: 30 mg Furosemide (Lasix) 40 mg PO BID [facility] Last Admin: 09/30/18 09:50 Dose: 40 mg Gabapentin (Neurontin) 100 mg PO TID [facility]; Protocol Last Admin: 09/30/18 14:11 Dose: 100 mg Guaifenesin (Robitussin) 200 mg PO Q4H PRN PRN Reason: Cough and congestion Guaifenesin (Mucinex La) 600 mg PO BID [facility] Insulin Human Regular (Humulin R Low) 0 units SC ACHS [facility]; Protocol Last Admin: 09/30/18 12:20 Dose: 2 unit Isosorbide Mononitrate (Imdur) 60 mg PO 0600 [facility] Last Admin: 09/30/18 05:44 Dose: 60 mg Lisinopril (Zestril) 10 mg PO DAILY [facility] Last Admin: 09/28/18 09:38 Dose: 10 mg Metoprolol Tartrate (Lopressor) 100 mg PO BRKDIN [facility] Last Admin: 09/30/18 09:57 Dose: 100 mg Nystatin (Nystop Topical Powder) 0 gm TOP TID [facility] Last Admin: 09/30/18 14:09 Dose: 100,000 unit Oxycodone/Acetaminophen (Percocet 5/325 Mg Tab) 1 tab PO Q6H PRN PRN Reason: Pain, moderate (4-7) Stop: 10/02/18 16:26 Last Admin: 09/30/18 12:19 Dose: 1 tab Pantoprazole Sodium (Protonix Ec Tab) 40 mg PO 0600 [facility] Last Admin: 09/30/18 05:45 Dose: 40 mg Primidone (Mysoline) 50 mg PO HS [facility] Last Admin: 09/29/18 22:35 Dose: 50 mg - Labs Labs: 09/30/18 10:39 09/30/18 05:40 - Additional Findings Additional findings: - Constitutional Appears: Well, Non-toxic, No Acute Distress - Head Exam Head Exam: ATRAUMATIC, NORMAL INSPECTION, NORMOCEPHALIC - Eye Exam Eye Exam: EOMI, Normal appearance, PERRL - Respiratory Exam Respiratory Exam: Decreased Breath Sounds, NORMAL BREATHING PATTERN. Present: Rhonchi. absent: Accessory Muscle Use, Rales, Wheezes, Respiratory Distress, Stridor - Cardiovascular Exam Cardiovascular Exam: RRR, +S1, +S2, Systolic Murmur (cresendo-decrescendo murmur appreciated at R sternal border.). absent: Gallop, Rubs - GI/Abdominal Exam GI & Abdominal Exam: Normal Bowel Sounds, Soft. absent: Firm, Guarding, Tenderness Additional comments: illiostomy bag noted, fecal material noted in bad, output and air noted - Extremities Exam Extremities exam: Positive for: pedal edema (trace), tenderness, pedal pulses present (1+). Negative for: calf tenderness, joint swelling, normal inspection (pt has hx of L 1st and 2nd transmetatarsal amputation) - Back Exam Back exam: NORMAL INSPECTION. absent: CVA tenderness (L), CVA tenderness (R) Additional comments: healing decubitus ulcer - Neurological Exam Neurological exam: Alert, Oriented x3 - Psychiatric Exam Psychiatric exam: Normal Affect, Normal Mood - Skin Skin Exam: Dry, Normal Color, Warm Assessment and Plan - Assessment and Plan (Free Text) Assessment: Patient is a 73-year-old Female with past medical history of CAD s/p CABG, T2DM, CHF s/p AICD placement, IDDM, neuropathy, PVD, HTN, HLD, ileostomy, chronic hip and knee pain who presents to [facility] ED with a chief complaint of bilateral lower extremity weakness and pain. Bilateral lower extremity venous doppler was negative for DVT bilaterally. Patient was also noted to have hyperkalemia and VALE on CKD on initial lab results. Acute on Chronic Systolic CHF s/p AICD, EF 25% - Cardiology consulted (Dr. Vidales) recommendations appreciated Discontinued: Dubutamine 500mg in 250mg IV 2.5 mcg/kg/min - Continue home meds: Lasix 40mg PO daily Lasix 20mg PO DIN Lisinopril 10mg PO daily Lopressor 100mg PO BRKDIN Isosorbide Mononitrate 60mg PO 0600 - Chest X-ray obtained 09/29/18: Mild pulmonary venous congestive changes bibasilar atelectasis and small effusions (see report for details) Hyperkalemia 2/2 pre-existing CKD vs drug induced hyperkalemia vs Type 4 Renal Tubular Acidosis, Improved - EKG in ED showed no peaked T-waves - Patient takes lisinpril at home - Given in ED: ca++ gluconate, kayexalate and insulin - Repeat BMP - Follow up Urine Na, Cl and K VALE on CKD, Improved - Likely due to lasix - Continue to trend BUN/Cr - Avoid nephrotoxic meds History of CAD s/p CABG: - Continue home ASA, imdur, lopressor Chronic Low Back Pain 2/2 T12 Compression Fracture - Dr. Sarmiento (IR) consulted - Follow-up on recommendations - Appropriate pain management Neuropathy - Patient was started on Gabapentin 100mg TID - Physical Therapy eval and treat - Follow-up on recommendations History of HLD: - Continue home lipitor History of IDDM: - ISS - [id number]=7.8 - Accu checks ACHS - Hypoglycemia protocol PPX: DVT: Heparin SC Patient seen and case discussed in detail with Dr. Lorenzo Mckeon PGY1
[2018-09-30] MEDS: Bacitracin Ointment 30 GM TUBE TOP SCH (17:32)
[2018-09-30] MEDS: guaiFENesin 200 mg/10 ml Syrup UD PO PRN (17:39)
[2018-09-30] MEDS: guaiFENesin 600 mg ER Tab PO SCH (19:36)
[2018-10-01] MEDS: Pantoprazole 40 mg EC Tab PO SCH (05:03)
[2018-10-01 08:57] LABS: GRAN % 72.9 % (50.0-68.0); HEMOGLOBIN 12.2 g/dL (12.0-16.0); LYMPH % 10.7 % (22.0-35.0); MEAN CELL VOLUME 96.4 fl (80.0-105.0); MEAN CORPUSCULAR HEMOGLOBIN 29.7 pg (25.0-35.0); MEAN CORPUSCULAR HGB CONC 30.8 g/dl (31.0-37.0); MEAN PLATELET VOLUME 11.4 fl (7.0-11.0); RBC 4.11 10^6/uL (3.5-6.1); WHITE BLOOD COUNT 6.7 10^3/uL (4.5-11.0)
[2018-10-01 08:58] LABS: BASO # 0.01 K/mm3 (0.0-2.0); BASO % 0.1 % (0.0-3.0); EOS # 0.3 (0.0-0.7); EOS % 4.8 % (1.5-5.0); GRAN # 4.88 (1.4-6.5); LYMPH # 0.7 (1.2-3.4); MONO # 0.8 (0.1-0.6); MONO % 11.5 % (1.0-6.0)
[2018-10-01 09:19] LABS: CALCIUM 8.4 mg/dL (8.4-10.5)
[2018-10-01] MEDS: Oxycodone/Acetaminophen 5/325 mg Tab PO PRN ×2 (09:19→21:45)
[2018-10-01] MEDS: Enoxaparin 30 mg Syringe SC SCH (09:20)
[2018-10-01] MEDS: Cholecalciferol 1,000 INTLU TAB PO SCH (09:21)
[2018-10-01] MEDS: guaiFENesin 600 mg ER Tab PO SCH ×2 (09:22→20:25)
[2018-10-01] MEDS: Insulin Reg-LOW-Coverage SC SCH ×4 (09:23→21:41)
[2018-10-01] MEDS ORDERED: Sod Polystyrene Sulf 15 gm/60 ml Susp PO ONE (09:29)
[2018-10-01] MEDS: Bacitracin Ointment 30 GM TUBE TOP SCH ×2 (10:00→18:22)
[2018-10-01] MEDS: Nystatin 100,000 Units/gm Topical Pow(15 gm) TOP SCH ×3 (10:11→18:25)
[2018-10-01] MEDS ORDERED: Lidocaine 2% Inj (20ml) ONE (14:29)
[2018-10-01] MEDS ORDERED: Midazolam 2 MG/2 ML VIAL ONE (15:03)
--- NOTE | 2018-10-01 15:23 | CP.PCM.PN ---
Subjective - Date & Time of Evaluation Date of Evaluation: 10/01/18 Time of Evaluation: 15:14 - Subjective Subjective: PGY1 Medicine Progress Note for Dr. Ventura Patient was seen and evaluated at bedside this morning. Tolerating breakfast. Patient off dobutamine drip. Patient complained that the site of her port has been irritating and itching her; plan is for removal today. Patient able to get out of bed to chair. 12 Point ROS is otherwise unremarkable. Of note, later in the afternoon the Patient was retaining urine, per Nurse. Objective - Vital Signs/Intake and Output Vital Signs (last 24 hours): Temp Pulse Resp BP Pulse Ox 97.8 F 80 20 103/67 100 10/01/18 12:00 10/01/18 12:00 10/01/18 12:00 10/01/18 12:00 10/01/18 05:54 Intake and Output: 10/01/18 10/01/18 06:59 18:59 Intake Total 1980 Output Total 550 Balance 1430 - Medications Medications: Current Medications Acetaminophen (Tylenol 325mg Tab) 650 mg PO Q6H PRN PRN Reason: Pain, moderate (4-7) Last Admin: 09/30/18 14:10 Dose: 650 mg Albuterol/Ipratropium (Duoneb 3 Mg/0.5 Mg (3 Ml) Ud) 3 ml IH [id number] [facility] Amlodipine Besylate (Norvasc) 5 mg PO DAILY [facility] Last Admin: 10/01/18 10:11 Dose: 5 mg Ascorbic Acid (Vitamin C 500 Mg Tab) 500 mg PO DAILY [facility] Last Admin: 10/01/18 09:19 Dose: 500 mg Aspirin (Ecotrin) 81 mg PO 0800 [facility] Last Admin: 10/01/18 09:21 Dose: 81 mg Atorvastatin Calcium (Lipitor) 10 mg PO DIN [facility] Last Admin: 09/30/18 17:04 Dose: 10 mg Bacitracin (Bacitracin) 1 gm TOP BID [facility] Last Admin: 09/30/18 17:32 Dose: 30 gm Calcitriol (Rocaltrol) 0.25 mcg PO MWF [facility] Last Admin: 09/30/18 09:51 Dose: 0.25 mcg Calcium Carbonate (Oscal) 500 mg PO DAILY [facility] Last Admin: 10/01/18 09:19 Dose: 500 mg Cholecalciferol (Vitamin D) 1,000 intlu PO DAILY [facility] Last Admin: 10/01/18 09:21 Dose: 1,000 intlu Cyanocobalamin (Vitamin B12 1000 Mcg Tab) 1,000 mcg PO BID [facility] Last Admin: 10/01/18 09:21 Dose: 1,000 mcg Enoxaparin Sodium (Lovenox) 30 mg SC DAILY [facility]; Protocol Last Admin: 10/01/18 09:20 Dose: 30 mg Furosemide (Lasix) 40 mg PO BID [facility] Last Admin: 10/01/18 10:10 Dose: 40 mg Gabapentin (Neurontin) 100 mg PO TID [facility]; Protocol Last Admin: 10/01/18 13:04 Dose: 100 mg Guaifenesin (Robitussin) 200 mg PO Q4H PRN PRN Reason: Cough and congestion Last Admin: 09/30/18 17:39 Dose: 200 mg Guaifenesin (Mucinex La) 600 mg PO BID [facility] Last Admin: 10/01/18 09:22 Dose: 600 mg Insulin Human Regular (Humulin R Low) 0 units SC [facility]; Protocol Last Admin: 10/01/18 12:05 Dose: 2 unit Isosorbide Mononitrate (Imdur) 60 mg PO 0600 [facility] Last Admin: 10/01/18 05:03 Dose: 60 mg Lisinopril (Zestril) 10 mg PO DAILY [facility] Last Admin: 09/28/18 09:38 Dose: 10 mg Metoprolol Tartrate (Lopressor) 100 mg PO BRKDIN [facility] Last Admin: 10/01/18 07:59 Dose: 100 mg Nystatin (Nystop Topical Powder) 0 gm TOP TID [facility] Last Admin: 10/01/18 10:11 Dose: 1 applic Oxycodone/Acetaminophen (Percocet 5/325 Mg Tab) 1 tab PO Q6H PRN PRN Reason: Pain, moderate (4-7) Stop: 10/02/18 16:26 Last Admin: 10/01/18 09:19 Dose: 1 tab Pantoprazole Sodium (Protonix Ec Tab) 40 mg PO 0600 [facility] Last Admin: 10/01/18 05:03 Dose: 40 mg Primidone (Mysoline) 50 mg PO HS [facility] Last Admin: 09/30/18 21:14 Dose: 50 mg - Labs Labs: 10/01/18 08:00 10/01/18 08:00 - Additional Findings Additional findings: - Constitutional Appears: Well, Non-toxic, No Acute Distress - Head Exam Head Exam: ATRAUMATIC, NORMAL INSPECTION, NORMOCEPHALIC - Eye Exam Eye Exam: EOMI, Normal appearance, PERRL - Respiratory Exam Respiratory Exam: Decreased Breath Sounds, NORMAL BREATHING PATTERN. Present: Rh onchi. absent: Accessory Muscle Use, Rales, Wheezes, Respiratory Distress, Stridor - Cardiovascular Exam Cardiovascular Exam: RRR, +S1, +S2, Systolic Murmur (cresendo-decrescendo murmur appreciated at R sternal border.). absent: Gallop, Rubs - GI/Abdominal Exam GI & Abdominal Exam: Normal Bowel Sounds, Soft. absent: Firm, Guarding, Tenderness Additional comments: illiostomy bag noted, fecal material noted in bad, output and air noted - Extremities Exam Extremities exam: Positive for: pedal edema (trace), tenderness, pedal pulses present (1+). Negative for: calf tenderness, joint swelling, normal inspection (pt has hx of L 1st and 2nd transmetatarsal amputation) - Back Exam Back exam: NORMAL INSPECTION. absent: CVA tenderness (L), CVA tenderness (R) Additional comments: healing decubitus ulcer - Neurological Exam Neurological exam: Alert, Oriented x3 - Psychiatric Exam Psychiatric exam: Normal Affect, Normal Mood - Skin Skin Exam: Dry, Normal Color, Warm Assessment and Plan - Assessment and Plan (Free Text) Assessment: Patient is a 73-year-old Female with past medical history of CAD s/p CABG, T2DM, CHF s/p AICD placement, IDDM, neuropathy, PVD, HTN, HLD, ileostomy, chronic hip and knee pain who presents to [facility] ED with a chief complaint of bilateral lower extremity weakness and pain. Bilateral lower extremity venous doppler was negative for DVT bilaterally. Patient was also noted to have hyperkalemia and VALE on CKD on initial lab results. Acute on Chronic Systolic CHF s/p AICD, EF 25% - Cardiology consulted (Dr. Vidales) recommendations appreciated Discontinued: Dubutamine 500mg in 250mg IV 2.5 mcg/kg/min - Continue home meds: Lasix 40mg PO daily Lasix 20mg PO DIN Lisinopril 10mg PO daily Lopressor 100mg PO BRKDIN Isosorbide Mononitrate 60mg PO 0600 - Chest X-ray obtained 09/29/18: Mild pulmonary venous congestive changes bibasilar atelectasis and small effusions (see report for details) Hyperkalemia 2/2 pre-existing CKD vs drug induced hyperkalemia vs Type 4 Renal Tubular Acidosis, Improved - EKG in ED showed no peaked T-waves - Patient takes lisinpril at home - Given in ED: ca++ gluconate, kayexalate and insulin - Repeat BMP - Follow up Urine Na, Cl and K VALE on CKD - Likely due to lasix - Continue to trend BUN/Cr - Avoid nephrotoxic meds History of CAD s/p CABG: - Continue home ASA, imdur, lopressor Chronic Low Back Pain 2/2 T12 Compression Fracture - Dr. Sarmiento (IR) consulted - Follow-up on recommendations - Appropriate pain management Neuropathy - Patient was started on Gabapentin 100mg TID - Physical Therapy eval and treat - Follow-up on recommendations History of HLD: - Continue home lipitor History of IDDM: - ISS - [id number] - Accu checks ACHS - Hypoglycemia protocol PPX: DVT: Heparin SC Patient seen and case discussed in detail with Dr. Lorenzo Mckeon PGY1
--- NOTE | 2018-10-01 15:53 | CT ---
Date of service: 10/01/2018 PROCEDURE: CT Chest without contrast HISTORY: r/o pneumonia COMPARISON: None available. TECHNIQUE: Contiguous axial images were obtained through the chest without intravenous contrast enhancement. Sagittal and coronal reconstructions were performed. Radiation dose: Total exam DLP = 595.33 mGy-cm. This CT exam was performed using one or more of the following dose reduction techniques: Automated exposure control, adjustment of the mA and/or kV according to patient size, and/or use of iterative reconstruction technique. FINDINGS: LUNGS: Minimal areas of consolidation are seen at the left lung base. This could represent chronic scarring or pneumonia. There is also peribronchial thickening at both lung bases left greater than right. MEDIASTINUM: Unremarkable thoracic aorta. No aneurysm. Severe cardiomegaly. Main pulmonary artery unremarkable. No vascular congestion. No lymphadenopathy. Aortic and coronary artery calcifications are seen. PLEURA: No pleural fluid. No pneumothorax. BONES: No fracture. No destructive lesion. Sternal wires UPPER ABDOMEN: Grossly unremarkable. OTHER FINDINGS: None. IMPRESSION: Minimal areas of consolidation are seen at the left lung base. This could represent chronic scarring or pneumonia. There is also peribronchial thickening at both lung bases left greater than right.
[2018-10-01] MEDS ORDERED: Albuterol-Ipratrop 3 mg / 0.5 (3 ml) UD ONE (15:55)
[2018-10-01] MEDS: Albuterol-Ipratrop 3 mg / 0.5 (3 ml) UD IH SCH ×2 (16:06→20:18)
[2018-10-01] MEDS ORDERED: DiphenhydrAMINE 50 mg/ml Inj ONE (17:00)
[2018-10-01] MEDS ORDERED: DiphenhydrAMINE 50 mg/ml Inj IVP ONE ×2 (17:01)
--- NOTE | 2018-10-01 18:19 | PN ---
DATE: 10/01/2018 SUBJECTIVE: The patient denies shortness of breath off of IV dobutamine. PHYSICAL EXAMINATION: VITAL SIGNS: On physical exam, blood pressure and vitals and heart rate is stable. NECK: Negative JVD. LUNGS: Bilateral rhonchi without wheezing. No rales noted. HEART: Reveal S1 and S2. EXTREMITIES: Without edema. LABORATORY DATA: Hemoglobin is 12.2, BUN and creatinine 58 and 2.3. IMPRESSION: 1. End-stage dilated cardiomyopathy. 2. Renal insufficiency. 3. Resolution of congestive heart failure. 4. Diabetes mellitus. 5. Coronary artery disease. PLAN: Given these findings, the patient is for port removal today. After this, the patient can be transferred to rehab to help her ambulation. Vinnie Vidales MD
--- NOTE | 2018-10-01 19:22 | VASCULAR ---
PROCEDURE: Removal of tunneled right internal jugular venous access port. CLINICAL HISTORY: Cardiomyopathy with venous port for milrinone infusion. Discontinued infusion. Possible infected PHYSICIAN(S): Vinnie Sarmiento M.D. TECHNIQUE: The relative risks and indications of the procedure were explained to the patient and consent obtained. The patient was placed supine on the arteriogram table and the right neck and chest prepped and draped usual sterile fashion. Conscious sedation and monitoring were provided throughout the procedure by a nurse. Antibiotics were given prior to the procedure. 1% Xylocaine was used to anesthetize the skin and soft tissues at the port. A 4 cm incision was made. The port was bluntly dissected and removed. The catheter was removed under fluoroscopic guidance. No retained catheter fragments were seen. The pocket was lavaged with normal saline. The pocket was closed in 2 layers. The patient tolerated the procedure well. IMPRESSION: 1. Removal of tunneled right internal jugular venous access port.
[2018-10-02] MEDS: Albuterol-Ipratrop 3 mg / 0.5 (3 ml) UD IH SCH ×7 (00:54→23:34)
[2018-10-02 01:05] LABS: URINE BILIRUBIN SMALL (NEGATIVE); URINE BLOOD LARGE (NEGATIVE); URINE GLUCOSE (UA) 100 mg/dL (NEGATIVE); URINE LEUKOCYTE ESTERASE MODERATE Leu/uL (NEGATIVE); URINE PROTEIN >=300 mg/dL (<30 mg/dL)
[2018-10-02 01:08] LABS: URINE APPEARANCE CLOUDY (CLEAR); URINE COLOR RED (YELLOW)
[2018-10-02 01:19] LABS: URINE BACTERIA FEW (NEG); URINE EPITHELIAL CELLS 0 - 2 /hpf (0-5); URINE RBC TNTC /hpf (0-2)
[2018-10-02] MEDS: Pantoprazole 40 mg EC Tab PO SCH (05:30)
[2018-10-02] MEDS: Insulin Reg-LOW-Coverage SC SCH ×4 (07:56→21:12)
[2018-10-02 08:09] LABS: CALCIUM 8.1 mg/dL (8.4-10.5)
[2018-10-02] MEDS: DOBUTamine 500mg/250ml D5W 500 MG/250 ML BAG IV PRN (08:19)
--- NOTE | 2018-10-02 08:45 | PN ---
DATE: 10/02/2018 SUBJECTIVE: The patient is complaining of dyspnea with recurrence of pedal edema on physical exam. OBJECTIVE: VITAL SIGNS: Blood pressure 123/68, heart rates in the 70s. NECK: Negative JVD. LUNGS: Rales bilaterally. HEART: Reveal S1, S2. EXTREMITIES: 1+ edema noted. LABORATORY DATA: Hemoglobin is 12.1. Chemistries, BUN and creatinine is 58 and 2.3. IMPRESSION: 1. Recurrence of congestive heart failure. 2. End-stage dilated cardiomyopathy. 3. Pedal edema. 4. Dyspnea. 5. Diabetes mellitus. Given these findings, we will restart the patient on IV dobutamine. We will continue on IV inotropes. The patient may need to go home on IV inotropes. Vinnie Vidales MD
[2018-10-02] MEDS ORDERED: Linezolid 600 mg in D5W 300 ml 600 MG/300 ML BAG IVPB SCH (10:00)
[2018-10-02] MEDS ORDERED: VANCOMYCIN IVPB STA (10:26)
[2018-10-02] MEDS ORDERED: SODIUM CHLORIDE 0.9% IVPB STA (10:26)
[2018-10-02] MEDS: guaiFENesin 600 mg ER Tab PO SCH ×2 (10:40→17:47)
[2018-10-02] MEDS: Cholecalciferol 1,000 INTLU TAB PO SCH (10:40)
[2018-10-02] MEDS: Nystatin 100,000 Units/gm Topical Pow(15 gm) TOP SCH ×3 (10:45→17:41)
[2018-10-02] MEDS: Bacitracin Ointment 30 GM TUBE TOP SCH ×2 (10:47→17:41)
--- NOTE | 2018-10-02 13:51 | CP.PCM.CON ---
History of Present Illness - History of Present Illness History of Present Illness: Palliative consult requested by Dr Steffi Parada Reason: Advance Directives 73 year old female who presented on 09/22/18 with weakness and dyspnea on exertion. She also complained of lower extremity edema and erythema L>R. PMHx: AAA, DVT, CHF, end stage dilated cardiomyopathy, HTN, DM, CKD, degenerative joint disease, decubitis ulcers,umbilical hernia,gait dysfunction, pneumonai, bacteremia PSHx: AICD,CABG & aortic stent 2010, colectomy, ileostomy, s/p [employer]ER /stent of left iliac vein, cholecystectomy, left toe amputation,bilateral cataract surgery. Bi Knee x rays: Severe degenerative changes in patellofemoral joint of left knee. Also osteophyte formation at left tibial tuberosity. Lumbar CT: Compression fracture of T12 ,age undetermined, likely chronic. US of extremities: No evidence of DVT in either lower extremities. Chest X ray: Mild pulmonary venous congestive changes bibasilar atelectasis, and small effusions. Chest CT: Small area of consolidation left lung base could represent chronic scarring or pneumonia. Also peribronchial thickening at both lung bases L>R EKG: NSR with sinus arrhythmia, St/T wave abnormality, mildy prolonged QT Family History:Non contributory Social History:Former smoker, no alcohol or drug use. Lives with family Advance Care Planning: The patient does not have an Advanced Directive. Review of Systems: Weakness, shortness of breath on exertion, 12 point review otherwise negative Past Patient History - Infectious Disease Hx of Infectious Diseases: None - Tetanus Immunizations Tetanus Immunization: Unknown - Past Medical History & Family History Past Medical History?: Yes - Past Social History Smoking Status: Former Smoker - CARDIAC Hx Cardiac Disorders: Yes (s/p AICD placement, s/p CABG) Hx Congestive Heart Failure: Yes Hx Hypercholesterolemia: Yes Hx Hypertension: Yes - PULMONARY Hx Respiratory Disorders: No - NEUROLOGICAL Hx Neurological Disorder: No - HEENT Hx Cataracts: Yes (bilateral laser sx) - RENAL Hx Chronic Kidney Disease: Yes - ENDOCRINE/METABOLIC Hx Diabetes Mellitus Type 2: Yes (Neuropathy) - HEMATOLOGICAL/ONCOLOGICAL Hx Blood Transfusions: No Hx Blood Transfusion Reaction: No - INTEGUMENTARY Other/Comment: STage 3 sacral ulcers. BLE redness w/ scattered scabs. Under breasts folds redness. Bilateral under belly Folds redness skin excoriated - MUSCULOSKELETAL/RHEUMATOLOGICAL Hx Falls: No - GASTROINTESTINAL Hx Gastrointestinal Disorders: (umbilical hernia ileostomy) - GENITOURINARY/GYNECOLOGICAL Hx Genitourinary Disorders: (external purwick catheter) Hx Reproductive Disorders: No - PSYCHIATRIC Hx Psychophysiologic Disorder: No Hx Substance Use: No - SURGICAL HISTORY Hx Abdominal Aortic Aneurysm Repair: Yes Hx Eye Surgery: Yes (Cataracts laser) - ANESTHESIA Hx Anesthesia: Yes Hx Anesthesia Reactions: No Hx Malignant Hyperthermia: No Meds Home Medications: Home Medication List Medication Instructions Recorded Confirmed Type Bacitracin Ointment [Bacitracin] 1 gm TOP BID tube 09/30/18 Rx Furosemide [Lasix] 40 mg PO BID tab 09/30/18 Rx Gabapentin [Neurontin] 100 mg PO TID cap 09/30/18 Rx Insulin Human Regular-LOW [HumuLIN 0 units SC ACHS ml 09/30/18 Rx R LOW] Nystatin [Nystop Topical Powder] 1 gm TOP TID bottle 09/30/18 Rx amLODIPine [Norvasc] 5 mg PO DAILY tab 09/30/18 Rx guaiFENesin [Mucinex LA] 600 mg PO BID tab 09/30/18 Rx oxyCODONE/Acetaminophen [Percocet 1 tab PO Q6H PRN tab 09/30/18 Rx 5/325 mg Tab] Allergies/Adverse Reactions: Allergies Allergy/AdvReac Type Severity Reaction Status Date / Time amoxicillin [From Augmentin] Allergy ANAPHYLAXIS Verified 07/29/18 20:50 clavulanic acid Allergy ANAPHYLAXIS Verified 07/29/18 20:50 [From Augmentin] doxycycline Allergy ANAPHYLAXIS Verified 04/29/18 21:11 shellfish derived Allergy ANAPHYLAXIS Verified 04/29/18 21:11 - Medications Medications: Current Medications Acetaminophen (Tylenol 325mg Tab) 650 mg PO Q6H PRN PRN Reason: Pain, moderate (4-7) Last Admin: 09/30/18 14:10 Dose: 650 mg Albuterol/Ipratropium (Duoneb 3 Mg/0.5 Mg (3 Ml) Ud) 3 ml [facility] [id number] [facility] Last Admin: 10/02/18 11:54 Dose: 3 ml Amlodipine Besylate (Norvasc) 5 mg PO DAILY [facility] Last Admin: 10/02/18 10:42 Dose: 5 mg Ascorbic Acid (Vitamin C 500 Mg Tab) 500 mg PO DAILY [facility] Last Admin: 10/02/18 10:40 Dose: 500 mg Aspirin (Ecotrin) 81 mg PO 0800 [facility] Last Admin: 10/02/18 08:19 Dose: 81 mg Atorvastatin Calcium (Lipitor) 10 mg PO DIN [facility] Last Admin: 10/01/18 20:25 Dose: 10 mg Bacitracin (Bacitracin) 1 gm TOP BID [facility] Last Admin: 10/02/18 10:47 Dose: 1 gm Calcitriol (Rocaltrol) 0.25 mcg PO MWF [facility] Last Admin: 10/02/18 10:40 Dose: 0.25 mcg Calcium Carbonate (Oscal) 500 mg PO DAILY [facility] Last Admin: 10/02/18 10:42 Dose: 500 mg Cholecalciferol (Vitamin D) 1,000 intlu PO DAILY [facility] Last Admin: 10/02/18 10:40 Dose: 1,000 intlu Cyanocobalamin (Vitamin B12 1000 Mcg Tab) 1,000 mcg PO BID [facility] Last Admin: 10/02/18 10:40 Dose: 1,000 mcg Enoxaparin Sodium (Lovenox) 30 mg SC DAILY [facility]; Protocol Last Admin: 10/01/18 09:20 Dose: 30 mg Furosemide (Lasix) 40 mg PO BID [facility] Last Admin: 10/02/18 10:40 Dose: 40 mg Gabapentin (Neurontin) 100 mg PO TID [facility]; Protocol Last Admin: 10/02/18 13:14 Dose: 100 mg Guaifenesin (Robitussin) 200 mg PO Q4H PRN PRN Reason: Cough and congestion Last Admin: 09/30/18 17:39 Dose: 200 mg Guaifenesin (Mucinex La) 600 mg PO BID [facility] Last Admin: 10/02/18 10:40 Dose: 600 mg Dobutamine HCl/Dextrose (Dobutamine/Dextrose 5% 500mg/250ml) 500 mg in 250 mls @ 12.451 mls/hr IV .Q20H5M PRN PRN Reason: Other Last Admin: 10/02/18 08:19 Dose: 12.451 mls/hr Insulin Human Regular (Humulin R Low) 0 units SC A[facility]S [facility]; Protocol Last Admin: 10/02/18 13:13 Dose: 3 unit Isosorbide Mononitrate (Imdur) 60 mg PO 0600 [facility] Last Admin: 10/02/18 05:30 Dose: 60 mg Lisinopril (Zestril) 10 mg PO DAILY [facility] Last Admin: 09/28/18 09:38 Dose: 10 mg Metoprolol Tartrate (Lopressor) 100 mg PO BRKDIN [facility] Last Admin: 10/02/18 08:18 Dose: 100 mg Nystatin (Nystop Topical Powder) 0 gm TOP TID [facility] Last Admin: 10/02/18 13:14 Dose: 1 applic Oxycodone/Acetaminophen (Percocet 5/325 Mg Tab) 1 tab PO Q6H PRN PRN Reason: Pain, moderate (4-7) Stop: 10/02/18 16:26 Last Admin: 10/01/18 21:45 Dose: 1 tab Pantoprazole Sodium (Protonix Ec Tab) 40 mg PO 0600 [facility] Last Admin: 10/02/18 05:30 Dose: 40 mg Primidone (Mysoline) 50 mg PO HS [facility] Last Admin: 10/01/18 21:41 Dose: 50 mg Physical Exam - Constitutional Appears: No Acute Distress, Chronically Ill - Head Exam Head Exam: NORMOCEPHALIC - Eye Exam Eye Exam: Normal appearance, PERRL - ENT Exam ENT Exam: Mucous Membranes Moist, Normal Oropharynx - Neck Exam Neck exam: Positive for: Normal Inspection Additional comments: no JVD - Respiratory Exam Respiratory Exam: Decreased Breath Sounds, Rales, NORMAL BREATHING PATTERN - Cardiovascular Exam Cardiovascular Exam: REGULAR RHYTHM, +S1, +S2 - GI/Abdominal Exam GI & Abdominal Exam: Normal Bowel Sounds, Soft - Extremities Exam Additional comments: 1+ edema of both lower extremities - Neurological Exam Neurological exam: Alert, Oriented x3 - Skin Skin Exam: Dry, Pallor - Additional Findings Additional findings: palliative performance scale 40% Results - Vital Signs Recent Vital Signs: Last Vital Signs Temp 98.3 F 10/02/18 12:00 Pulse 81 10/02/18 12:00 Resp 20 10/02/18 12:00 BP 117/70 10/02/18 12:00 Pulse Ox 100 10/02/18 06:00 - Labs Result Diagrams: 10/03/18 08:00 10/03/18 08:00 Labs: Laboratory Results - last 24 hr 10/01/18 10/02/18 10/02/18 18:45 07:40 08:36 Sodium 131 L Potassium 4.9 Chloride 102 Carbon Dioxide 24 Anion Gap 11 BUN 62 H Creatinine 2.6 H Est GFR ( Amer) 22 Est GFR (Non-Af Amer) 18 Random Glucose 137 H Calcium 8.1 L Procalcitonin 0.32 Urine Color Red Urine Appearance Cloudy Urine pH 5.0 Ur Specific Solomon 1.020 Urine Protein >=300 H Urine Glucose (UA) 100 H Urine Ketones Trace H Urine Blood Large H Urine Nitrate Positive H Urine Bilirubin Small H Urine Urobilinogen 1.0 H Ur Leukocyte Esterase Moderate H Urine RBC Tntc Urine WBC 5 - 10 Ur Epithelial Cells 0 - 2 Urine Bacteria Few Assessment & Plan - Assessment and Plan (Free Text) Assessment: 73 year old female with history of multiple medical comorbidites (see PMH) who is admitted with acute CHF exacerbation, community acquired pneumonia, UTI, chronic T12 fracture and deconditioning The patient is alert, oriented,of pleasant demeanor, offers no complaints. Her and daughter are at bedside. Advance care planning discussion ensued. The patient does not have a living will. Benefits and burdens of resuscitation with CPR and intubation explained, questions answered. The patient indicated that she does not want to be resuscitated with CPR/intubation. Her family is supportive of her wishes. Explained the importance of initiating POLST directive. She is hesitant to do so today. Encouraged her to discuss with her family. Offered to return tomorrow to continue advance care planning conversation. Time spent with patient in goals of care and advance care planning, 20 minutes Plan: Goals of care and advance care planning UTI Continue Zyvox, ID following Cardiology following, Continue Dobutamine, Ecotrin,Lasix, Norvasc, Lipitor, Zestril,Lopressor. Lovenox on hold due to hematuria Hyperglycemia: Fingersticks ACHS, Humulin sliding scale as ordered Deconditioning: PT/OT. BROOK when medically stable
--- NOTE | 2018-10-02 15:17 | CP.PCM.PN ---
Subjective - Date & Time of Evaluation Date of Evaluation: 10/02/18 Time of Evaluation: 15:09 - Subjective Subjective: PGY1 Medicine Progress Note for Dr. Ventura Patient was seen and evaluated at bedside this morning. Tolerating breakfast. Patient placed back on dobutamine drip. Patient able to get out of bed to chair. 12 Point ROS is otherwise unremarkable. Patient denies urinary frequency, burning, and/or urgency. Objective - Vital Signs/Intake and Output Vital Signs (last 24 hours): Temp Pulse Resp BP Pulse Ox 98.3 F 81 20 117/70 100 10/02/18 12:00 10/02/18 12:00 10/02/18 12:00 10/02/18 12:00 10/02/18 06:00 Intake and Output: 10/02/18 10/02/18 06:59 18:59 Intake Total 0 Output Total 300 Balance -300 - Medications Medications: Current Medications Acetaminophen (Tylenol 325mg Tab) 650 mg PO Q6H PRN PRN Reason: Pain, moderate (4-7) Last Admin: 09/30/18 14:10 Dose: 650 mg Albuterol/Ipratropium (Duoneb 3 Mg/0.5 Mg (3 Ml) Ud) 3 ml IH [id number] [facility] Last Admin: 10/02/18 14:42 Dose: 3 ml Amlodipine Besylate (Norvasc) 5 mg PO DAILY [facility] Last Admin: 10/02/18 10:42 Dose: 5 mg Ascorbic Acid (Vitamin C 500 Mg Tab) 500 mg PO DAILY [facility] Last Admin: 10/02/18 10:40 Dose: 500 mg Aspirin (Ecotrin) 81 mg PO 0800 [facility] Last Admin: 10/02/18 08:19 Dose: 81 mg Atorvastatin Calcium (Lipitor) 10 mg PO DIN [facility] Last Admin: 10/01/18 20:25 Dose: 10 mg Bacitracin (Bacitracin) 1 gm TOP BID [facility] Last Admin: 10/02/18 10:47 Dose: 1 gm Calcitriol (Rocaltrol) 0.25 mcg PO MWF [facility] Last Admin: 10/02/18 10:40 Dose: 0.25 mcg Calcium Carbonate (Oscal) 500 mg PO DAILY [facility] Last Admin: 10/02/18 10:42 Dose: 500 mg Cholecalciferol (Vitamin D) 1,000 intlu PO DAILY [facility] Last Admin: 10/02/18 10:40 Dose: 1,000 intlu Cyanocobalamin (Vitamin B12 1000 Mcg Tab) 1,000 mcg PO BID [facility] Last Admin: 10/02/18 10:40 Dose: 1,000 mcg Enoxaparin Sodium (Lovenox) 30 mg SC DAILY [facility]; Protocol Last Admin: 10/01/18 09:20 Dose: 30 mg Furosemide (Lasix) 40 mg PO BID [facility] Last Admin: 10/02/18 10:40 Dose: 40 mg Gabapentin (Neurontin) 100 mg PO TID [facility]; Protocol Last Admin: 10/02/18 13:14 Dose: 100 mg Guaifenesin (Robitussin) 200 mg PO Q4H PRN PRN Reason: Cough and congestion Last Admin: 09/30/18 17:39 Dose: 200 mg Guaifenesin (Mucinex La) 600 mg PO BID [facility] Last Admin: 10/02/18 10:40 Dose: 600 mg Dobutamine HCl/Dextrose (Dobutamine/Dextrose 5% 500mg/250ml) 500 mg in 250 mls @ 12.451 mls/hr IV .Q20H5M PRN PRN Reason: Other Last Admin: 10/02/18 08:19 Dose: 12.451 mls/hr Insulin Human Regular (Humulin R Low) 0 units SC ACHS [facility]; Protocol Last Admin: 10/02/18 13:13 Dose: 3 unit Isosorbide Mononitrate (Imdur) 60 mg PO 0600 [facility] Last Admin: 10/02/18 05:30 Dose: 60 mg Lisinopril (Zestril) 10 mg PO DAILY [facility] Last Admin: 09/28/18 09:38 Dose: 10 mg Metoprolol Tartrate (Lopressor) 100 mg PO BRKDIN [facility] Last Admin: 10/02/18 08:18 Dose: 100 mg Nystatin (Nystop Topical Powder) 0 gm TOP TID [facility] Last Admin: 10/02/18 13:14 Dose: 1 applic Oxycodone/Acetaminophen (Percocet 5/325 Mg Tab) 1 tab PO Q6H PRN PRN Reason: Pain, moderate (4-7) Stop: 10/02/18 16:26 Last Admin: 10/01/18 21:45 Dose: 1 tab Pantoprazole Sodium (Protonix Ec Tab) 40 mg PO 0600 [facility] Last Admin: 10/02/18 05:30 Dose: 40 mg Primidone (Mysoline) 50 mg PO HS [facility] Last Admin: 10/01/18 21:41 Dose: 50 mg - Labs Labs: 10/01/18 08:00 10/02/18 07:40 - Additional Findings Additional findings: - Constitutional Appears: Well, Non-toxic, No Acute Distress - Head Exam Head Exam: ATRAUMATIC, NORMAL INSPECTION, NORMOCEPHALIC - Eye Exam Eye Exam: EOMI, Normal appearance, PERRL - Respiratory Exam Respiratory Exam: Decreased Breath Sounds, NORMAL BREATHING PATTERN. Present: Rhonchi. absent: Accessory Muscle Use, Rales, Wheezes, Respiratory Distress, Stridor - Cardiovascular Exam Cardiovascular Exam: RRR, +S1, +S2, Systolic Murmur (cresendo-decrescendo murmur appreciated at R sternal border.). absent: Gallop, Rubs - GI/Abdominal Exam GI & Abdominal Exam: Normal Bowel Sounds, Soft. absent: Firm, Guarding, Tenderness Additional comments: illiostomy bag noted, fecal material noted in bad, output and air noted - Exam Exam: hematuria appreciated on inspection of noble bag - Extremities Exam Extremities exam: Positive for: pedal edema (trace), tenderness, pedal pulses present (1+). Negative for: calf tenderness, joint swelling, normal inspection (pt has hx of L 1st and 2nd transmetatarsal amputation) - Back Exam Back exam: NORMAL INSPECTION. absent: CVA tenderness (L), CVA tenderness (R) Additional comments: healing decubitus ulcer - Neurological Exam Neurological exam: Alert, Oriented x3 - Psychiatric Exam Psychiatric exam: Normal Affect, Normal Mood - Skin Skin Exam: Dry, Normal Color, Warm Assessment and Plan - Assessment and Plan (Free Text) Assessment: Patient is a 73-year-old Female with past medical history of CAD s/p CABG, T2DM, CHF s/p AICD placement, IDDM, neuropathy, PVD, HTN, HLD, ileostomy, chronic hip and knee pain who presents to [facility] ED with a chief complaint of bilateral lower extremity weakness and pain. Bilateral lower extremity venous doppler was negative for DVT bilaterally. Patient was also noted to have hyperkalemia and VALE on CKD on initial lab results. Patient placed back on dobutamine drip today. Patient with noble in place due to urinary retention. Hematuria present on exam likely due to traumatic noble insertion. Acute on Chronic Systolic CHF s/p AICD, EF 25% - Cardiology consulted (Dr. Vidales) recommendations appreciated Discontinued: Dubutamine 500mg in 250mg IV 2.5 mcg/kg/min - Continue home meds: Lasix 40mg PO daily Lasix 20mg PO DIN Lisinopril 10mg PO daily Lopressor 100mg PO BRKDIN Isosorbide Mononitrate 60mg PO 0600 - Chest X-ray obtained 09/29/18: Mild pulmonary venous congestive changes bibasilar atelectasis and small effusions (see report for details) Hyperkalemia 2/2 pre-existing CKD vs drug induced hyperkalemia vs Type 4 Renal Tubular Acidosis, Improved - EKG in ED showed no peaked T-waves - Patient takes lisinpril at home - Given in ED: ca++ gluconate, kayexalate and insulin - Repeat BMP - Follow up Urine Na, Cl and K VALE on CKD - Likely due to lasix - Continue to trend BUN/Cr - Avoid nephrotoxic meds Urinary retention, rule-out UTI - Patient has hematuria on physical exam - Likely due to traumatic noble insertion - Urinalysis revealed large blood present - Patient was given zyvox; now discontinued - ID consulted (Dr. Coto); recommendations appreciated - Urology consulted (Dr. Borges); recommendations appreciated - Pending urine cultures - Urinalysis consistent with UTI, but Patient asymptomatic - Monitor History of CAD s/p CABG: - Continue home ASA, imdur, lopressor Chronic Low Back Pain 2/2 T12 Compression Fracture - Dr. Sarmiento (IR) consulted - Follow-up on recommendations - Appropriate pain management Neuropathy - Patient was started on Gabapentin 100mg TID - Physical Therapy eval and treat - Follow-up on recommendations History of HLD: - Continue home lipitor History of IDDM: - ISS - [id number] - Accu checks ACHS - Hypoglycemia protocol PPX: DVT: Heparin SC Patient seen and case discussed in detail with Dr. Lorenzo Mckeon PGY1
--- NOTE | 2018-10-02 15:23 | CP.PCM.CON ---
History of Present Illness - History of Present Illness History of Present Illness: 73 year old female with PMH of CAD S/P CABG, abdominal aortic aneurysm S/P repair, S/P cholecystectomy, S/P pacemaker placement, DM, S/P left toe amputation intially came in to [facility] because of weakness and lower extremity pain. She has been in telemetry being monitored and managed medically and doing physical therapy. Throughout the admission, the patient did not complain or urinary symptoms but the patient apparently developed hematuria and urinary retention and Jaeger catheter is placed. Infectious Diseases consult is requested to see if the patient has UTI. She denies fever or chills, no flank pain, no abdominal pain, no nausea or vomiting, no chest pain, no SOB, no headache or dizziness, no cough or rhinorrhea, no diarrhea, no suprapubic pain. Review of Systems - Review of Systems All systems: reviewed and no additional remarkable complaints except (as per HPI) Past Patient History - Infectious Disease Hx of Infectious Diseases: None - Tetanus Immunizations Tetanus Immunization: Unknown - Past Medical History & Family History Past Medical History?: Yes - Past Social History Smoking Status: Former Smoker - CARDIAC Hx Cardiac Disorders: Yes (s/p AICD placement, s/p CABG) Hx Congestive Heart Failure: Yes Hx Hypercholesterolemia: Yes Hx Hypertension: Yes - PULMONARY Hx Respiratory Disorders: No - NEUROLOGICAL Hx Neurological Disorder: No - HEENT Hx Cataracts: Yes (bilateral laser sx) - RENAL Hx Chronic Kidney Disease: Yes - ENDOCRINE/METABOLIC Hx Diabetes Mellitus Type 2: Yes (Neuropathy) - HEMATOLOGICAL/ONCOLOGICAL Hx Blood Transfusions: No Hx Blood Transfusion Reaction: No - INTEGUMENTARY Other/Comment: STage 3 sacral ulcers. BLE redness w/ scattered scabs. Under breasts folds redness. Bilateral under belly Folds redness skin excoriated - MUSCULOSKELETAL/RHEUMATOLOGICAL Hx Falls: No - GASTROINTESTINAL Hx Gastrointestinal Disorders: (umbilical hernia ileostomy) - GENITOURINARY/GYNECOLOGICAL Hx Genitourinary Disorders: (external purwick catheter) Hx Reproductive Disorders: No - PSYCHIATRIC Hx Psychophysiologic Disorder: No Hx Substance Use: No - SURGICAL HISTORY Hx Abdominal Aortic Aneurysm Repair: Yes Hx Eye Surgery: Yes (Cataracts laser) - ANESTHESIA Hx Anesthesia: Yes Hx Anesthesia Reactions: No Hx Malignant Hyperthermia: No Meds Home Medications: Home Medication List Medication Instructions Recorded Confirmed Type Bacitracin Ointment [Bacitracin] 1 gm TOP BID tube 09/30/18 Rx Furosemide [Lasix] 40 mg PO BID tab 09/30/18 Rx Gabapentin [Neurontin] 100 mg PO TID cap 09/30/18 Rx Insulin Human Regular-LOW [HumuLIN 0 units SC ACHS ml 09/30/18 Rx R LOW] Nystatin [Nystop Topical Powder] 1 gm TOP TID bottle 09/30/18 Rx amLODIPine [Norvasc] 5 mg PO DAILY tab 09/30/18 Rx guaiFENesin [Mucinex LA] 600 mg PO BID tab 09/30/18 Rx oxyCODONE/Acetaminophen [Percocet 1 tab PO Q6H PRN tab 09/30/18 Rx 5/325 mg Tab] Allergies/Adverse Reactions: Allergies Allergy/AdvReac Type Severity Reaction Status Date / Time amoxicillin [From Augmentin] Allergy ANAPHYLAXIS Verified 07/29/18 20:50 clavulanic acid Allergy ANAPHYLAXIS Verified 07/29/18 20:50 [From Augmentin] doxycycline Allergy ANAPHYLAXIS Verified 04/29/18 21:11 shellfish derived Allergy ANAPHYLAXIS Verified 04/29/18 21:11 - Medications Medications: Current Medications Acetaminophen (Tylenol 325mg Tab) 650 mg PO Q6H PRN PRN Reason: Pain, moderate (4-7) Last Admin: 09/30/18 14:10 Dose: 650 mg Albuterol/Ipratropium (Duoneb 3 Mg/0.5 Mg (3 Ml) Ud) 3 ml IH [id number] [facility] Last Admin: 10/02/18 07:47 Dose: 3 ml Amlodipine Besylate (Norvasc) 5 mg PO DAILY [facility] Last Admin: 10/01/18 10:11 Dose: 5 mg Ascorbic Acid (Vitamin C 500 Mg Tab) 500 mg PO DAILY [facility] Last Admin: 10/01/18 09:19 Dose: 500 mg Aspirin (Ecotrin) 81 mg PO 0800 [facility] Last Admin: 10/02/18 08:19 Dose: 81 mg Atorvastatin Calcium (Lipitor) 10 mg PO DIN [facility] Last Admin: 10/01/18 20:25 Dose: 10 mg Bacitracin (Bacitracin) 1 gm TOP BID [facility] Last Admin: 10/01/18 18:22 Dose: 1 gm Calcitriol (Rocaltrol) 0.25 mcg PO MWF [facility] Last Admin: 09/30/18 09:51 Dose: 0.25 mcg Calcium Carbonate (Oscal) 500 mg PO DAILY [facility] Last Admin: 10/01/18 09:19 Dose: 500 mg Cholecalciferol (Vitamin D) 1,000 intlu PO DAILY [facility] Last Admin: 10/01/18 09:21 Dose: 1,000 intlu Cyanocobalamin (Vitamin B12 1000 Mcg Tab) 1,000 mcg PO BID [facility] Last Admin: 10/01/18 20:26 Dose: 1,000 mcg Enoxaparin Sodium (Lovenox) 30 mg SC DAILY [facility]; Protocol Last Admin: 10/01/18 09:20 Dose: 30 mg Furosemide (Lasix) 40 mg PO BID [facility] Last Admin: 10/01/18 18:29 Dose: 40 mg Gabapentin (Neurontin) 100 mg PO TID [facility]; Protocol Last Admin: 10/01/18 18:25 Dose: 100 mg Guaifenesin (Robitussin) 200 mg PO Q4H PRN PRN Reason: Cough and congestion Last Admin: 09/30/18 17:39 Dose: 200 mg Guaifenesin (Mucinex La) 600 mg PO BID [facility] Last Admin: 10/01/18 20:25 Dose: 600 mg Dobutamine HCl/Dextrose (Dobutamine/Dextrose 5% 500mg/250ml) 500 mg in 250 mls @ 12.451 mls/hr IV .Q20H5M PRN PRN Reason: Other Last Admin: 10/02/18 08:19 Dose: 12.451 mls/hr Insulin Human Regular (Humulin R Low) 0 units SC ACHS [facility]; Protocol Last Admin: 10/02/18 07:56 Dose: Not Given Isosorbide Mononitrate (Imdur) 60 mg PO 0600 [facility] Last Admin: 10/02/18 05:30 Dose: 60 mg Lisinopril (Zestril) 10 mg PO DAILY [facility] Last Admin: 09/28/18 09:38 Dose: 10 mg Metoprolol Tartrate (Lopressor) 100 mg PO BRKDIN [facility] Last Admin: 10/02/18 08:18 Dose: 100 mg Nystatin (Nystop Topical Powder) 0 gm TOP TID [facility] Last Admin: 10/01/18 18:25 Dose: 1 applic Oxycodone/Acetaminophen (Percocet 5/325 Mg Tab) 1 tab PO Q6H PRN PRN Reason: Pain, moderate (4-7) Stop: 10/02/18 16:26 Last Admin: 10/01/18 21:45 Dose: 1 tab Pantoprazole Sodium (Protonix Ec Tab) 40 mg PO 0600 [facility] Last Admin: 10/02/18 05:30 Dose: 40 mg Primidone (Mysoline) 50 mg PO HS [facility] Last Admin: 10/01/18 21:41 Dose: 50 mg Physical Exam - Constitutional Appears: No Acute Distress, Chronically Ill - Head Exam Head Exam: NORMAL INSPECTION - Neck Exam Neck exam: Negative for: Meningismus - Respiratory Exam Respiratory Exam: Decreased Breath Sounds - Cardiovascular Exam Cardiovascular Exam: +S1, +S2 - GI/Abdominal Exam GI & Abdominal Exam: Soft. absent: Tenderness Results - Vital Signs Recent Vital Signs: Last Vital Signs Temp 98.4 F 10/02/18 06:00 Pulse 88 10/02/18 08:19 Resp 75 H 10/02/18 06:00 BP 127/71 10/02/18 08:19 Pulse Ox 100 10/02/18 06:00 - Labs Result Diagrams: 10/01/18 08:00 10/02/18 07:40 Labs: Laboratory Results - last 24 hr 10/01/18 10/01/18 10/01/18 08:00 08:00 18:45 WBC 6.7 D RBC 4.11 Hgb 12.2 Hct 39.6 MCV 96.4 D MCH 29.7 MCHC 30.8 L RDW 16.0 H Plt Count 169 MPV 11.4 H Gran % 72.9 H Lymph % (Auto) 10.7 L [place] % (Auto) 11.5 H Eos % (Auto) 4.8 Baso % (Auto) 0.1 Gran # 4.88 Lymph # (Auto) 0.7 L [place] # (Auto) 0.8 H Eos # (Auto) 0.3 Baso # (Auto) 0.01 Sodium 129 L Potassium 5.5 H Chloride 100 Carbon Dioxide 23 Anion Gap 11 BUN 58 H Creatinine 2.3 H Est GFR ( Amer) 25 Est GFR (Non-Af Amer) 21 Random Glucose 167 H Calcium 8.4 Urine Color Red Urine Appearance Cloudy Urine pH 5.0 Ur Specific [place] 1.020 Urine Protein >=300 H Urine Glucose (UA) 100 H Urine Ketones Trace H Urine Blood Large H Urine Nitrate Positive H Urine Bilirubin Small H Urine Urobilinogen 1.0 H Ur Leukocyte Esterase Moderate H Urine RBC Tntc Urine WBC 5 - 10 Ur Epithelial Cells 0 - 2 Urine Bacteria Few 10/02/18 07:40 WBC RBC Hgb Hct MCV MCH MCHC RDW Plt Count MPV Gran % Lymph % (Auto) [place] % (Auto) Eos % (Auto) Baso % (Auto) Gran # Lymph # (Auto) [place] # (Auto) Eos # (Auto) Baso # (Auto) Sodium 131 L Potassium 4.9 Chloride 102 Carbon Dioxide 24 Anion Gap 11 BUN 62 H Creatinine 2.6 H Est GFR ( Amer) 22 Est GFR (Non-Af Amer) 18 Random Glucose 137 H Calcium 8.1 L Urine Color Urine Appearance Urine pH Ur Specific [place] Urine Protein Urine Glucose (UA) Urine Ketones Urine Blood Urine Nitrate Urine Bilirubin Urine Urobilinogen Ur Leukocyte Esterase Urine RBC Urine WBC Ur Epithelial Cells Urine Bacteria Assessment & Plan - Assessment and Plan (Free Text) Plan: Assessment hematuria and urinary retention R/O UTI S/P left leg cellulitis as well as right sided community-acquired pneumonia S/P left foot 2nd digit skin and skin structure infection CAD S/P CABG abdominal aortic aneurysm S/P repair S/P cholecystectomy S/P pacemaker placement DM S/P left toe amputation Plan urine cx on admission showed E. faecalis - will follow up urine cx and give as dose of IV Vancomycin and will monitor clinically follow up Urology recommendations
[2018-10-03] MEDS: DOBUTamine 500mg/250ml D5W 500 MG/250 ML BAG IV PRN ×2 (03:07→11:31)
[2018-10-03] MEDS: Albuterol-Ipratrop 3 mg / 0.5 (3 ml) UD IH SCH ×6 (03:15→23:53)
[2018-10-03] MEDS: Pantoprazole 40 mg EC Tab PO SCH (05:15)
[2018-10-03 08:12] LABS: HEMOGLOBIN 11.7 g/dL (12.0-16.0); MEAN CELL VOLUME 93.3 fl (80.0-105.0); MEAN CORPUSCULAR HEMOGLOBIN 29.3 pg (25.0-35.0); MEAN CORPUSCULAR HGB CONC 31.4 g/dl (31.0-37.0); MEAN PLATELET VOLUME 10.2 fl (7.0-11.0); RED CELL DISTRIBUTION WIDTH 15.4 % (11.5-14.5); WHITE BLOOD COUNT 7.7 10^3/uL (4.5-11.0)
[2018-10-03] MEDS: Insulin Reg-LOW-Coverage SC SCH ×4 (08:29→22:21)
[2018-10-03 08:40] LABS: CALCIUM 8.2 mg/dL (8.4-10.5)
[2018-10-03] MEDS: guaiFENesin 600 mg ER Tab PO SCH ×2 (10:59→20:58)
[2018-10-03] MEDS: Nystatin 100,000 Units/gm Topical Pow(15 gm) TOP SCH ×2 (11:00→14:10)
[2018-10-03] MEDS: Cholecalciferol 1,000 INTLU TAB PO SCH (11:00)
[2018-10-03] MEDS: Bacitracin Ointment 30 GM TUBE TOP SCH ×2 (11:02→18:40)
--- NOTE | 2018-10-03 11:38 | RAD ---
Date of service: 10/03/2018 HISTORY: abnormal breath sounds COMPARISON: 09/29/2018 FINDINGS: LUNGS: No active pulmonary disease. PLEURA: No significant pleural effusion identified, no pneumothorax apparent. CARDIOVASCULAR: Aortic calcification Moderate cardiomegaly improved vascular congestion OSSEOUS STRUCTURES: No significant abnormalities. VISUALIZED UPPER ABDOMEN: Normal. OTHER FINDINGS: None. IMPRESSION: Improved vascular congestion
--- NOTE | 2018-10-03 11:38 | PN ---
DATE: 10/03/2018 SUBJECTIVE: The patient's breathing is much better on IV dobutamine. OBJECTIVE: VITAL SIGNS: Blood pressure 159/77, heart rate is 100. NECK: Negative JVD. LUNGS: Decreased breath sounds. HEART: Reveal S1, S2. EXTREMITIES: Without edema. LABORATORY DATA: Hemoglobin is 11.7. Chemistries; BUN and creatinine 60 and 2.1, glucose is 186. IMPRESSION: 1. End-stage dilated cardiomyopathy. 2. Renal insufficiency. 3. Congestive heart failure, better on IV dobutamine. 4. Diabetes mellitus. 5. Pedal edema. 6. Hypertension. PLAN: Given these findings, we will need to make arrangements for home IV dobutamine. Vinnie Vidales MD
--- NOTE | 2018-10-03 13:24 | CP.PCM.PN ---
Subjective - Date & Time of Evaluation Date of Evaluation: 10/03/18 Time of Evaluation: 13:00 - Subjective Subjective: Alert, offers no complaints Objective - Vital Signs/Intake and Output Vital Signs (last 24 hours): Temp Pulse Resp BP Pulse Ox 98.4 F 82 19 143/71 98 10/03/18 12:00 10/03/18 12:00 10/03/18 12:00 10/03/18 12:00 10/03/18 06:00 Intake and Output: 10/03/18 10/03/18 06:59 18:59 Intake Total 2420 Output Total 2200 Balance 220 - Medications Medications: Current Medications Acetaminophen (Tylenol 325mg Tab) 650 mg PO Q6H PRN PRN Reason: Pain, moderate (4-7) Last Admin: 10/03/18 07:42 Dose: 650 mg Albuterol/Ipratropium (Duoneb 3 Mg/0.5 Mg (3 Ml) Ud) 3 ml IH [id number] [facility] Last Admin: 10/03/18 11:23 Dose: 3 ml Amlodipine Besylate (Norvasc) 5 mg PO DAILY [facility] Last Admin: 10/03/18 11:00 Dose: 5 mg Ascorbic Acid (Vitamin C 500 Mg Tab) 500 mg PO DAILY [facility] Last Admin: 10/03/18 11:00 Dose: 500 mg Aspirin (Ecotrin) 81 mg PO 0800 [facility] Last Admin: 10/03/18 08:30 Dose: 81 mg Atorvastatin Calcium (Lipitor) 10 mg PO DIN [facility] Last Admin: 10/02/18 17:46 Dose: 10 mg Bacitracin (Bacitracin) 1 gm TOP BID [facility] Last Admin: 10/03/18 11:02 Dose: 1 gm Calcitriol (Rocaltrol) 0.25 mcg PO MWF [facility] Last Admin: 10/02/18 10:40 Dose: 0.25 mcg Calcium Carbonate (Oscal) 500 mg PO DAILY [facility] Last Admin: 10/03/18 11:00 Dose: 500 mg Cholecalciferol (Vitamin D) 1,000 intlu PO DAILY [facility] Last Admin: 10/03/18 11:00 Dose: 1,000 intlu Cyanocobalamin (Vitamin B12 1000 Mcg Tab) 1,000 mcg PO BID [facility] [place] Last Admin: 10/03/18 10:59 Dose: 1,000 mcg Enoxaparin Sodium (Lovenox) 30 mg SC DAILY [facility]; Protocol Last Admin: 10/01/18 09:20 Dose: 30 mg Furosemide (Lasix) 40 mg IVP Q12 [facility] Last Admin: 10/03/18 10:59 Dose: 40 mg Gabapentin (Neurontin) 100 mg PO TID [facility]; Protocol Last Admin: 10/03/18 11:00 Dose: 100 mg Guaifenesin (Robitussin) 200 mg PO Q4H PRN PRN Reason: Cough and congestion Last Admin: 09/30/18 17:39 Dose: 200 mg Guaifenesin (Mucinex La) 600 mg PO BID [facility] Last Admin: 10/03/18 10:59 Dose: 600 mg Dobutamine HCl/Dextrose (Dobutamine/Dextrose 5% 500mg/250ml) 500 mg in 250 mls @ 18.677 mls/hr IV .[id number] PRN PRN Reason: Other Last Admin: 10/03/18 11:31 Dose: 18.677 mls/hr Insulin Human Regular (Humulin R Low) 0 units SC ACHS [facility]; Protocol Last Admin: 10/03/18 12:33 Dose: 2 unit Isosorbide Mononitrate (Imdur) 60 mg PO 0600 [facility] Last Admin: 10/03/18 05:15 Dose: 60 mg Lisinopril (Zestril) 10 mg PO DAILY [facility] Last Admin: 10/03/18 10:59 Dose: 10 mg Metoprolol Tartrate (Lopressor) 100 mg PO BRKDIN [facility] Last Admin: 10/03/18 08:30 Dose: 100 mg Nystatin (Nystop Topical Powder) 0 gm TOP TID [facility] Last Admin: 10/02/18 17:41 Dose: 1 applic Oxycodone/Acetaminophen (Percocet 5/325 Mg Tab) 1 tab PO Q6H PRN PRN Reason: Pain, moderate (4-7) Stop: 10/06/18 09:54 Pantoprazole Sodium (Protonix Ec Tab) 40 mg PO 0600 [facility] Last Admin: 10/03/18 05:15 Dose: 40 mg Primidone (Mysoline) 50 mg PO HS [facility] Last Admin: 10/02/18 21:09 Dose: 50 mg - Labs Labs: 10/03/18 08:00 10/03/18 08:00 - Constitutional Appears: No Acute Distress, Chronically Ill - Head Exam Head Exam: NORMOCEPHALIC - Eye Exam Eye Exam: Normal appearance, PERRL - ENT Exam ENT Exam: Mucous Membranes Moist - Respiratory Exam Respiratory Exam: Decreased Breath Sounds, NORMAL BREATHING PATTERN - Cardiovascular Exam Cardiovascular Exam: +S1, +S2 - GI/Abdominal Exam GI & Abdominal Exam: Soft, Normal Bowel Sounds - Extremities Exam Extremities Exam: Normal Capillary Refill, Pedal Edema - Neurological Exam Neurological Exam: Alert, Oriented x3 - Skin Skin Exam: Pallor Assessment and Plan - Assessment and Plan (Free Text) Assessment: 73 year old female with history of end stage cardiomyopathy, CHF,AAA, HTN,DM,decubitis ulcers, umbilical hernia who is admitted with acute CHF exacerbation, CAP,UTI,T12 fracture and deconditioning Advance care planning discussion, continued. Patient expressed that she does not want CPR or intubation. POLST Directive completed. sb Odom spouse is designated as POA. A copy of the document is placed in patients chart. Time spent in advance care planning discussion, 20 minutes Plan: Goals of care and advance care planning Acute CHF exacerbation/Cardiac disease; Continue Lasix, Ecotrin, Lopressor , Norvasc, Zestril Deconditioning: PT/OT >BROOK
--- NOTE | 2018-10-03 15:39 | CP.PCM.PN ---
<Gladis Peterson - Last Filed: 10/03/18 23:34> Subjective - Date & Time of Evaluation Date of Evaluation: 10/03/18 Time of Evaluation: 08:00 - Subjective Subjective: Gladis Peterson, PGY-1 Medicine Progress Note for Dr. Saenz: Pt was seen and examined this AM. Pt denies any acute overnight events. She states that she continues to feel weak and tired, but does admit to improved breathing. She admits to some back stiffness and that she is having some continued soreness from the site of the port removal. She states that she is tolerating her diet with no associated nausea or vomiting. She denies any other acute complaints at this time. Objective - Vital Signs/Intake and Output Vital Signs (last 24 hours): Temp Pulse Resp BP Pulse Ox 98.4 F 82 19 143/71 98 10/03/18 12:00 10/03/18 12:00 10/03/18 12:00 10/03/18 12:00 10/03/18 06:00 Intake and Output: 10/03/18 10/03/18 06:59 18:59 Intake Total 2420 Output Total 2200 Balance 220 - Medications Medications: Current Medications Acetaminophen (Tylenol 325mg Tab) 650 mg PO Q6H PRN PRN Reason: Pain, moderate (4-7) Last Admin: 10/03/18 07:42 Dose: 650 mg Albuterol/Ipratropium (Duoneb 3 Mg/0.5 Mg (3 Ml) Ud) 3 ml IH [id number] [facility] Last Admin: 10/03/18 11:23 Dose: 3 ml Amlodipine Besylate (Norvasc) 5 mg PO DAILY [facility] Last Admin: 10/03/18 11:00 Dose: 5 mg Ascorbic Acid (Vitamin C 500 Mg Tab) 500 mg PO DAILY [facility] Last Admin: 10/03/18 11:00 Dose: 500 mg Aspirin (Ecotrin) 81 mg PO 0800 [facility] Last Admin: 10/03/18 08:30 Dose: 81 mg Atorvastatin Calcium (Lipitor) 10 mg PO DIN [facility] Last Admin: 10/02/18 17:46 Dose: 10 mg Bacitracin (Bacitracin) 1 gm TOP BID [facility] Last Admin: 10/03/18 11:02 Dose: 1 gm Calcitriol (Rocaltrol) 0.25 mcg PO MWF [facility] Last Admin: 10/02/18 10:40 Dose: 0.25 mcg Calcium Carbonate (Oscal) 500 mg PO DAILY [facility] Last Admin: 10/03/18 11:00 Dose: 500 mg Cholecalciferol (Vitamin D) 1,000 intlu PO DAILY [facility] Last Admin: 10/03/18 11:00 Dose: 1,000 intlu Cyanocobalamin (Vitamin B12 1000 Mcg Tab) 1,000 mcg PO BID [facility] Last Admin: 10/03/18 10:59 Dose: 1,000 mcg Enoxaparin Sodium (Lovenox) 30 mg SC DAILY [facility]; Protocol Last Admin: 10/01/18 09:20 Dose: 30 mg Furosemide (Lasix) 40 mg IVP Q12 [facility] Last Admin: 10/03/18 10:59 Dose: 40 mg Gabapentin (Neurontin) 100 mg PO TID [facility]; Protocol Last Admin: 10/03/18 11:00 Dose: 100 mg Guaifenesin (Robitussin) 200 mg PO Q4H PRN PRN Reason: Cough and congestion Last Admin: 09/30/18 17:39 Dose: 200 mg Guaifenesin (Mucinex La) 600 mg PO BID [facility] Last Admin: 10/03/18 10:59 Dose: 600 mg Dobutamine HCl/Dextrose (Dobutamine/Dextrose 5% 500mg/250ml) 500 mg in 250 mls @ 18.677 mls/hr IV .[id number] PRN PRN Reason: Other Last Admin: 10/03/18 11:31 Dose: 18.677 mls/hr Insulin Human Regular (Humulin R Low) 0 units SC ACHS [facility]; Protocol Last Admin: 10/03/18 12:33 Dose: 2 unit Isosorbide Mononitrate (Imdur) 60 mg PO 0600 [facility] Last Admin: 10/03/18 05:15 Dose: 60 mg Lisinopril (Zestril) 10 mg PO DAILY [facility] Last Admin: 10/03/18 10:59 Dose: 10 mg Metoprolol Tartrate (Lopressor) 100 mg PO BRKDIN [facility] Last Admin: 10/03/18 08:30 Dose: 100 mg Nystatin (Nystop Topical Powder) 0 gm TOP TID [facility] Last Admin: 10/02/18 17:41 Dose: 1 applic Oxycodone/Acetaminophen (Percocet 5/325 Mg Tab) 1 tab PO Q6H PRN PRN Reason: Pain, moderate (4-7) Stop: 10/06/18 09:54 Pantoprazole Sodium (Protonix Ec Tab) 40 mg PO 0600 [facility] Last Admin: 10/03/18 05:15 Dose: 40 mg Primidone (Mysoline) 50 mg PO HS [facility] Last Admin: 10/02/18 21:09 Dose: 50 mg - Labs Labs: 10/03/18 08:00 10/03/18 08:00 - Constitutional Appears: Non-toxic, No Acute Distress, Chronically Ill - Head Exam Head Exam: ATRAUMATIC, NORMAL INSPECTION, NORMOCEPHALIC - Eye Exam Eye Exam: EOMI, Normal appearance, PERRL - ENT Exam ENT Exam: Mucous Membranes Moist, Normal Exam - Cardiovascular Exam Cardiovascular Exam: RRR, +S1, +S2. absent: Gallop, Rubs, Murmur - GI/Abdominal Exam GI & Abdominal Exam: Soft, Normal Bowel Sounds. absent: Tenderness Additional comments: illiostomy pink, patent, productive, mild herniation noted. Fecal material noted in bag, output and air noted - Extremities Exam Extremities Exam: Full ROM, Normal Capillary Refill Additional comments: pt has hx of L 1st and 2nd transmetatarsal amputation - Back Exam Back Exam: NORMAL INSPECTION. absent: CVA tenderness (L), CVA tenderness (R) - Neurological Exam Neurological Exam: Alert, Awake, Oriented x3 - Psychiatric Exam Psychiatric exam: Normal Affect, Normal Mood - Skin Skin Exam: Intact, Normal Color, Warm Assessment and Plan - Assessment and Plan (Free Text) Assessment: Pt is a 73 yo F with pmhx of CAD s/p CABG, T2DM, CHF s/p AICD placement, IDDM, neuropathy, PVD, HTN, HLD, ileostomy, chronic hip and knee pain who presents to [facility] for b/l LE weakness and pain. B/l LE venous doppler was negative for DVT bilaterally. Pt was also noted to have hyperkalemia and VALE on CKD on initial lab results. Pt on dobutamine drip, will get PICC line since pts port was removed. Pt with noble in place due to 1L of urinary retention. Hematuria is improved from yesterday, was likely 2/2 trauma from noble placement. Plan: 1. HFrEF s/p AICD, EF 25% - Pt on dobutamine, will get PICC line - Cardiology consulted - Lasix 40 IV BID - Continue home meds: Lisinopril 10mg PO daily Lopressor 100mg PO hs Imdur 60mg PO 0600 - CXR 09/29/18: Mild pulmonary venous congestive changes, bibasilar atelectasis, and small effusions 2. Hyperkalemia 2/2 pre-existing CKD - Repeat BMP in AM 3. VALE on CKD stage 4 - Likely due to lasix - Avoid nephrotoxic meds 4. Urinary retention s/p noble likely 2/2 UTI - Patient had hematuria - Likely due to traumatic noble insertion - ID consulted (Dr. Coto); recommendations appreciated - Urology consulted (Dr. Borges) - call placed awaiting call back - Urine cx + for E. Faecalis - Monitor 5. History of CAD s/p CABG: - Continue home ASA, imdur, lopressor 6. Hx of HLD: - Continue home lipitor 7. History of IDDM: - ISS - PasI7n=6.8 - Accu checks ACHS - Hypoglycemia protocol PPX: DVT: Heparin SC Patient seen and case discussed in detail with Dr. Letty Peterson DO Internal Medicine Resident PGY-1 <Fidel Saenz - Last Filed: 10/04/18 09:12> Objective - Vital Signs/Intake and Output Vital Signs (last 24 hours): Temp Pulse Resp BP Pulse Ox 98.5 F 104 H 20 152/86 H 97 10/04/18 06:00 10/04/18 08:55 10/04/18 06:00 10/04/18 08:55 10/04/18 06:00 Intake and Output: 10/04/18 10/04/18 06:59 18:59 Intake Total 614 390 Output Total 1500 1500 Balance -886 -1110 - Medications Medications: Current Medications Acetaminophen (Tylenol 325mg Tab) 650 mg PO Q6H PRN PRN Reason: Pain, moderate (4-7) Last Admin: 10/03/18 07:42 Dose: 650 mg Albuterol/Ipratropium (Duoneb 3 Mg/0.5 Mg (3 Ml) Ud) 3 ml IH [id number] Last Admin: 10/04/18 08:00 Dose: 3 ml Amlodipine Besylate (Norvasc) 5 mg PO DAILY [facility] Last Admin: 10/03/18 11:00 Dose: 5 mg Ascorbic Acid (Vitamin C 500 Mg Tab) 500 mg PO DAILY [facility] Last Admin: 10/03/18 11:00 Dose: 500 mg Aspirin (Ecotrin) 81 mg PO 0800 [facility] Last Admin: 10/03/18 08:30 Dose: 81 mg Atorvastatin Calcium (Lipitor) 10 mg PO DIN [facility] Last Admin: 10/03/18 18:34 Dose: 10 mg Bacitracin (Bacitracin) 1 gm TOP BID [facility] Last Admin: 10/03/18 18:40 Dose: 1 gm Calcitriol (Rocaltrol) 0.25 mcg PO MWF [facility] Last Admin: 10/02/18 10:40 Dose: 0.25 mcg Calcium Carbonate (Oscal) 500 mg PO DAILY [facility] Last Admin: 10/03/18 11:00 Dose: 500 mg Cholecalciferol (Vitamin D) 1,000 intlu PO DAILY [facility] Last Admin: 10/03/18 11:00 Dose: 1,000 intlu Cyanocobalamin (Vitamin B12 1000 Mcg Tab) 1,000 mcg PO BID [facility] Last Admin: 10/03/18 18:35 Dose: 1,000 mcg Enoxaparin Sodium (Lovenox) 30 mg SC DAILY [facility]; Protocol Last Admin: 10/01/18 09:20 Dose: 30 mg Furosemide (Lasix) 40 mg IVP Q12 [facility] Last Admin: 10/03/18 22:25 Dose: 40 mg Gabapentin (Neurontin) 100 mg PO TID [facility]; Protocol Last Admin: 10/03/18 18:39 Dose: Not Given Guaifenesin (Robitussin) 200 mg PO Q4H PRN PRN Reason: Cough and congestion Last Admin: 09/30/18 17:39 Dose: 200 mg Guaifenesin (Mucinex La) 600 mg PO BID [facility] Last Admin: 10/03/18 20:58 Dose: 600 mg Dobutamine HCl/Dextrose (Dobutamine/Dextrose 5% 500mg/250ml) 500 mg in 250 mls @ 18.677 mls/hr IV .[id number] PRN PRN Reason: Other Last Admin: 10/03/18 11:31 Dose: 18.677 mls/hr Insulin Human Regular (Humulin R Low) 0 units SC ACHS [facility]; Protocol Last Admin: 10/04/18 08:54 Dose: 2 unit Isosorbide Mononitrate (Imdur) 60 mg PO 0600 [facility] Last Admin: 10/04/18 05:54 Dose: 60 mg Lisinopril (Zestril) 10 mg PO DAILY [facility] Last Admin: 10/03/18 10:59 Dose: 10 mg Metoprolol Tartrate (Lopressor) 100 mg PO BRKDIN [facility] Last Admin: 10/04/18 08:55 Dose: 100 mg Nystatin (Nystop Topical Powder) 0 gm TOP TID [facility] Last Admin: 10/03/18 14:10 Dose: 1 applic Oxycodone/Acetaminophen (Percocet 5/325 Mg Tab) 1 tab PO Q6H PRN PRN Reason: Pain, moderate (4-7) Stop: 10/06/18 09:54 Last Admin: 10/04/18 05:53 Dose: 1 tab Pantoprazole Sodium (Protonix Ec Tab) 40 mg PO 0600 [facility] Last Admin: 10/04/18 05:54 Dose: 40 mg Primidone (Mysoline) 50 mg PO HS [facility] Last Admin: 10/03/18 22:25 Dose: 50 mg - Labs Labs: 10/04/18 06:15 10/04/18 06:15 Attending/Attestation - Attestation I have personally seen and examined this patient.: Yes I have fully participated in the care of the patient.: Yes I have reviewed all pertinent clinical information, including history, physical exam and plan: Yes Notes (Text): Systolic HF s/p AICD: Cardio on board, recommending mcc doubutamine. Will consult PICC team for line placement. SW on board to assist with meds set up upon DC. c/w diuretics Strict I/Os Hematuria with urinary retention most likely secondary to UTI: Tyron hematuria is improving. H/H remains stable Urology on board. Will f/u further recommendations Continue to hold blood thinners for now Hyperkalemia: K of 5.1. Will monitor and correct electrolytes as needed VALE on CKD: Monitor Cr closely Currently around baseline 10/04/18 09:06
[2018-10-03] MEDS ORDERED: Vancomycin 1gm in NS 250ml 1 GM/250 ML BAG IVPB STA (18:08)
--- NOTE | 2018-10-03 20:23 | PN ---
DATE: 10/03/2018 SUBJECTIVE: The patient is seen earlier today in 268, bed #1 and she had low-grade fevers. No nausea. She is comfortable. PHYSICAL EXAMINATION VITAL SIGNS: Temperature is 99, blood pressure is 120/60, respiratory rate of 18, heart rate of 96. HEENT: Examination of HEENT is unremarkable. NECK: Supple. CARDIOPULMONARY: Normal S1, S2. LUNGS: Have decreased breath sounds. ABDOMEN: Soft, nontender. LABORATORY DATA: Laboratory examination reveals a white count of 7.7, hemoglobin of 11 and platelets of 186. Chemistries reveals a creatinine of 2.1 and procalcitonin is 0.3. Urinalysis is noted. Microbiology reveals the Enterococcus faecalis sensitive to ampicillin, vancomycin and linezolid and stool cultures. No Salmonella, no Shigella, no Campylobacter isolated. ASSESSMENT AND PLAN: The patient is a 73-year-old female seen earlier with coronary artery disease, coronary bypass graft, abdominal aortic aneurysm with repair, status post cholecystectomy, pacemaker placement, left toe amputation and with hematuria. Urinary retention. Vancomycin was given. A dose was given yesterday. A creatinine of 2.1 and we will give another dose of vancomycin today. We will order a vancomycin random level from morning and we will follow with you. We will give you a dose starting at this time. José Luis Trevino MD
[2018-10-04] MEDS: Albuterol-Ipratrop 3 mg / 0.5 (3 ml) UD IH SCH ×6 (03:40→23:40)
[2018-10-04] MEDS: Oxycodone/Acetaminophen 5/325 mg Tab PO PRN ×2 (05:53→12:41)
[2018-10-04] MEDS: Pantoprazole 40 mg EC Tab PO SCH (05:54)
[2018-10-04 07:02] LABS: CALCIUM 8.5 mg/dL (8.4-10.5)
[2018-10-04 07:06] LABS: HEMOGLOBIN 11.7 g/dL (12.0-16.0); MEAN CELL VOLUME 93.4 fl (80.0-105.0); MEAN CORPUSCULAR HEMOGLOBIN 28.7 pg (25.0-35.0); MEAN CORPUSCULAR HGB CONC 30.8 g/dl (31.0-37.0); MEAN PLATELET VOLUME 10.3 fl (7.0-11.0); RBC 4.07 10^6/uL (3.5-6.1); RED CELL DISTRIBUTION WIDTH 15.5 % (11.5-14.5); WHITE BLOOD COUNT 7.9 10^3/uL (4.5-11.0)
[2018-10-04] MEDS: Insulin Reg-LOW-Coverage SC SCH ×4 (08:54→22:05)
[2018-10-04] MEDS: Cholecalciferol 1,000 INTLU TAB PO SCH (10:32)
[2018-10-04] MEDS: guaiFENesin 600 mg ER Tab PO SCH ×2 (10:33→17:20)
[2018-10-04] MEDS: Bacitracin Ointment 30 GM TUBE TOP SCH ×2 (10:49→17:21)
[2018-10-04] MEDS: Nystatin 100,000 Units/gm Topical Pow(15 gm) TOP SCH ×3 (10:49→17:21)
[2018-10-04] MEDS: DOBUTamine 500mg/250ml D5W 500 MG/250 ML BAG IV PRN (11:26)
--- NOTE | 2018-10-04 13:23 | CP.PCM.PN ---
Subjective - Date & Time of Evaluation Date of Evaluation: 10/04/18 Time of Evaluation: 11:05 - Subjective Subjective: Jaeger not irritating her, no suprapubic pain, no fevers, no nausea. Objective - Vital Signs/Intake and Output Vital Signs (last 24 hours): Temp Pulse Resp BP Pulse Ox 99.0 F 80 19 134/79 97 10/04/18 12:00 10/04/18 12:00 10/04/18 12:00 10/04/18 12:00 10/04/18 06:00 Intake and Output: 10/04/18 10/04/18 06:59 18:59 Intake Total 614 390 Output Total 1500 1500 Balance -886 -1110 - Medications Medications: Current Medications Acetaminophen (Tylenol 325mg Tab) 650 mg PO Q6H PRN PRN Reason: Pain, moderate (4-7) Last Admin: 10/03/18 07:42 Dose: 650 mg Albuterol/Ipratropium (Duoneb 3 Mg/0.5 Mg (3 Ml) Ud) 3 ml IH [id number] [facility] Last Admin: 10/04/18 11:27 Dose: 3 ml Amlodipine Besylate (Norvasc) 5 mg PO DAILY [facility] Last Admin: 10/04/18 10:32 Dose: 5 mg Ascorbic Acid (Vitamin C 500 Mg Tab) 500 mg PO DAILY [facility] Last Admin: 10/04/18 10:33 Dose: 500 mg Aspirin (Ecotrin) 81 mg PO 0800 [facility] Last Admin: 10/04/18 10:32 Dose: 81 mg Atorvastatin Calcium (Lipitor) 10 mg PO DIN [facility] Last Admin: 10/03/18 18:34 Dose: 10 mg Bacitracin (Bacitracin) 1 gm TOP BID [facility] Last Admin: 10/04/18 10:49 Dose: 1 gm Calcitriol (Rocaltrol) 0.25 mcg PO MWF [facility] Last Admin: 10/04/18 10:32 Dose: 0.25 mcg Calcium Carbonate (Oscal) 500 mg PO DAILY [facility] Last Admin: 10/04/18 10:33 Dose: 500 mg Cholecalciferol (Vitamin D) 1,000 intlu PO DAILY [facility] Last Admin: 10/04/18 10:32 Dose: 1,000 intlu Cyanocobalamin (Vitamin B12 1000 Mcg Tab) 1,000 mcg PO BID [facility] Last Admin: 10/04/18 10:33 Dose: 1,000 mcg Enoxaparin Sodium (Lovenox) 30 mg SC DAILY [facility]; Protocol Last Admin: 10/01/18 09:20 Dose: 30 mg Furosemide (Lasix) 40 mg IVP Q12 [facility] Last Admin: 10/04/18 10:31 Dose: 40 mg Gabapentin (Neurontin) 100 mg PO TID [facility]; Protocol Last Admin: 10/04/18 10:32 Dose: 100 mg Guaifenesin (Robitussin) 200 mg PO Q4H PRN PRN Reason: Cough and congestion Last Admin: 09/30/18 17:39 Dose: 200 mg Guaifenesin (Mucinex La) 600 mg PO BID [facility] Last Admin: 10/04/18 10:33 Dose: 600 mg Dobutamine HCl/Dextrose (Dobutamine/Dextrose 5% 500mg/250ml) 500 mg in 250 mls @ 18.677 mls/hr IV .[id number] PRN PRN Reason: Other Last Admin: 10/04/18 11:26 Dose: 18.677 mls/hr Insulin Human Regular (Humulin R Low) 0 units SC ACHS [facility]; Protocol Last Admin: 10/04/18 12:40 Dose: 4 unit Isosorbide Mononitrate (Imdur) 60 mg PO 0600 [facility] Last Admin: 10/04/18 05:54 Dose: 60 mg Lisinopril (Zestril) 10 mg PO DAILY [facility] Last Admin: 10/04/18 10:33 Dose: 10 mg Metoprolol Tartrate (Lopressor) 100 mg PO BRKDIN [facility] Last Admin: 10/04/18 08:55 Dose: 100 mg Nystatin (Nystop Topical Powder) 0 gm TOP TID [facility] Last Admin: 10/04/18 10:49 Dose: 1 applic Oxycodone/Acetaminophen (Percocet 5/325 Mg Tab) 1 tab PO Q6H PRN PRN Reason: Pain, moderate (4-7) Stop: 10/06/18 09:54 Last Admin: 10/04/18 12:41 Dose: 1 tab Pantoprazole Sodium (Protonix Ec Tab) 40 mg PO 0600 [facility] Last Admin: 10/04/18 05:54 Dose: 40 mg Primidone (Mysoline) 50 mg PO HS [facility] Last Admin: 10/03/18 22:25 Dose: 50 mg - Labs Labs: 10/04/18 06:15 10/04/18 06:15 - Constitutional Appears: Chronically Ill - Head Exam Head Exam: NORMAL INSPECTION - Neck Exam Neck Exam: absent: Meningismus - Respiratory Exam Respiratory Exam: Decreased Breath Sounds - Cardiovascular Exam Cardiovascular Exam: +S1, +S2 - GI/Abdominal Exam GI & Abdominal Exam: Soft. absent: Tenderness Assessment and Plan - Assessment and Plan (Free Text) Plan: Assessment hematuria and urinary retention R/O UTI with E. faecalis S/P left leg cellulitis as well as right sided community-acquired pneumonia S/P left foot 2nd digit skin and skin structure infection CAD S/P CABG abdominal aortic aneurysm S/P repair S/P cholecystectomy S/P pacemaker placement DM S/P left toe amputation Plan continue intermittent IV Vancomycin day 3 for 5-7 days - Vanco level today is 16.6 which is a good level - will get another level tomorrow and will continue to monitor clinically follow up Urology recommendations
--- NOTE | 2018-10-04 14:58 | CP.PCM.PCO ---
Physician Communication Note - Physician Communication Note Physician Communication Note: cardiology will reeval over weekend on Lasix 40 IVP bid, treatment for UTI
--- NOTE | 2018-10-04 16:05 | CON ---
DATE: 10/04/2018 GENITOURINARY CONSULTATION CHIEF COMPLAINT: Weakness and leg pain. HISTORY OF PRESENT ILLNESS: This is a 73-year-old female with multiple medical issues. The patient reports she was having worsening bilateral leg pain. She was then admitted to the hospital for evaluation. The patient has multiple comorbid conditions including arthritis. She reports she has not ambulated in over seven months. During her hospital admission, the patient had Jaeger catheter placed, at some point she was noted to have some bloody urine and a Urology consultation was requested. At home, the patient was maintained without a Jaeger catheter. She does report a history of frequency and urgency, but denies any prior gross hematuria. She denies any flank pain or history of stones. Prior to admission, the patient was actually on the toilet and felt that she could not get up. Her had to stand her up, and she was so unsteady on her feet and collapsed to the floor, which is why she was brought into the hospital. PAST MEDICAL HISTORY: Significant for coronary artery disease, history of open heart surgery as well as defibrillator placement, diabetes, neuropathy, peripheral vascular disease, hypertension, hyperlipidemia, chronic ileostomy, chronic hip and knee pain with arthritis, bed-bound, nonambulatory status, but normally was walking with a walker months ago. MEDICATIONS: Include bacitracin, dobutamine, DuoNeb, Ecotrin, insulin, Imdur, Lasix, Lipitor, Lopressor, Lovenox, Mucinex, Mysoline, Neurontin, Norvasc, nystatin powder, Os-Luan, Percocet, Protonix, Robitussin, Rocaltrol, Tylenol, vitamin B, vitamin C, vitamin D, Zestril, and was on the vancomycin. ALLERGIES: SHE IS ALLERGIC TO AMOXICILLIN, CLAVULANIC ACID, DOXYCYCLINE, AND SHELLFISH. FAMILY HISTORY: Noncontributory for this admission. SOCIAL HISTORY: Denies any current smoking or EtOH use. REVIEW OF SYSTEMS: Positive for weakness, leg pain, back pain, unable to ambulate, chronic ileostomy. Positive for cough and occasional shortness of breath. Denies nausea or vomiting. Positive for numbness and weakness of her lower extremities and lower extremity pain. Denies any depression or mental status changes. Other systems are negative. PHYSICAL EXAMINATION: GENERAL: The patient is seen in her bed. She is awake, alert and answering questions. Her is present. VITAL SIGNS: She is afebrile. Temperature of 99, pulse of 80, blood pressure 134/79, respirations 18. NECK: Her neck is supple. There is no adenopathy. CHEST: Examination of the chest reveals somewhat increased inspiratory effort with productive sounding cough. CARDIAC: Exam shows positive S1, S2. There is mild peripheral edema and evidence of chronic vascular disease in her upper and lower extremities. ABDOMEN: Soft, nontender, nondistended. There is no hepatosplenomegaly. There is an ileostomy draining in her right lower quadrant. GENITOURINARY: On exam, external genitalia are normal. There is a Jaeger catheter in place, which is draining clear-colored urine. LABORATORY EXAMINATION: WBC count normal at 7.9. Creatinine 1.9 with a GFR of 26, which appears to be her baseline. Urinalysis from the showed too numerous to count rbc's, 5-10 wbc's, positive nitrites, positive for protein, positive for sugar. Urine culture from 09/22 grew Enterococcus faecalis and a repeat urine culture from 10/01 again showed Enterococcus faecalis. On radiologic exam, no pertinent urologic x-rays were done. IMPRESSION AND PLAN: This is a 73-year-old female with multiple medical issues, most of which appears to be severe vascular disease. The patient is currently bed-bound and unable to ambulate. As far as the hematuria, this has grossly cleared and is likely from Jaeger trauma, plus the patient has an enterococcal urinary tract infection. She currently does not appear to be on antibiotics, and I would recommend ID consultation and retreating her urine. When the patient is in rehab and is able to stand and ambulate, Jaeger catheter should be removed for a voiding trial as it will likely be a source of recurrent infection. If the patient continues to have hematuria in the future, was having gross hematuria without presence of a bladder infection, I would recommend she should consider an elective cystoscopy as well as upper tract imaging. However, given the patient's multiple comorbidities, and she is currently DNR/DNI, I would not aggressively pursue the hematuria at this point, as we have other sources likely. Pierce Borges MD
--- NOTE | 2018-10-04 16:55 | CP.PCM.PN ---
<Geneva Mckeon - Last Filed: 10/04/18 16:49> Subjective - Date & Time of Evaluation Date of Evaluation: 10/04/18 Time of Evaluation: 07:36 - Subjective Subjective: PGY1 Medicine Progress Note for Dr. Saenz Patient was seen and examined at bedside this morning. Patient denies any acute overnight events. Patient has a PICC line in place. Patient states that she is tolerating her diet with no associated nausea or vomiting. 12 Point ROS otherwise unremarkable. Objective - Vital Signs/Intake and Output Vital Signs (last 24 hours): Temp Pulse Resp BP Pulse Ox 99.0 F 89 19 134/79 97 10/04/18 12:00 10/04/18 14:00 10/04/18 12:00 10/04/18 12:00 10/04/18 06:00 Intake and Output: 10/04/18 10/04/18 06:59 18:59 Intake Total 614 390 Output Total 1500 1500 Balance -886 -1110 - Medications Medications: Current Medications Acetaminophen (Tylenol 325mg Tab) 650 mg PO Q6H PRN PRN Reason: Pain, moderate (4-7) Last Admin: 10/03/18 07:42 Dose: 650 mg Albuterol/Ipratropium (Duoneb 3 Mg/0.5 Mg (3 Ml) Ud) 3 ml IH [id number] [facility] Last Admin: 10/04/18 15:50 Dose: 3 ml Amlodipine Besylate (Norvasc) 5 mg PO DAILY [facility] Last Admin: 10/04/18 10:32 Dose: 5 mg Ascorbic Acid (Vitamin C 500 Mg Tab) 500 mg PO DAILY [facility] Last Admin: 10/04/18 10:33 Dose: 500 mg Aspirin (Ecotrin) 81 mg PO 0800 [facility] Last Admin: 10/04/18 10:32 Dose: 81 mg Atorvastatin Calcium (Lipitor) 10 mg PO DIN [facility] Last Admin: 10/03/18 18:34 Dose: 10 mg Bacitracin (Bacitracin) 1 gm TOP BID [facility] Last Admin: 10/04/18 10:49 Dose: 1 gm Calcitriol (Rocaltrol) 0.25 mcg PO MWF [facility] Last Admin: 10/04/18 10:32 Dose: 0.25 mcg Calcium Carbonate (Oscal) 500 mg PO DAILY [facility] Last Admin: 10/04/18 10:33 Dose: 500 mg Cholecalciferol (Vitamin D) 1,000 intlu PO DAILY [facility] Last Admin: 10/04/18 10:32 Dose: 1,000 intlu Cyanocobalamin (Vitamin B12 1000 Mcg Tab) 1,000 mcg PO BID [facility] Last Admin: 10/04/18 10:33 Dose: 1,000 mcg Enoxaparin Sodium (Lovenox) 30 mg SC DAILY [facility]; Protocol Last Admin: 10/01/18 09:20 Dose: 30 mg Furosemide (Lasix) 40 mg IVP Q12 [facility] Last Admin: 10/04/18 10:31 Dose: 40 mg Gabapentin (Neurontin) 100 mg PO TID [facility]; Protocol Last Admin: 10/04/18 14:26 Dose: 100 mg Guaifenesin (Robitussin) 200 mg PO Q4H PRN PRN Reason: Cough and congestion Last Admin: 09/30/18 17:39 Dose: 200 mg Guaifenesin (Mucinex La) 600 mg PO BID [facility] Last Admin: 10/04/18 10:33 Dose: 600 mg Dobutamine HCl/Dextrose (Dobutamine/Dextrose 5% 500mg/250ml) 500 mg in 250 mls @ 18.677 mls/hr IV .[id number] PRN PRN Reason: Other Last Admin: 10/04/18 11:26 Dose: 18.677 mls/hr Insulin Human Regular (Humulin R Low) 0 units SC ACHS [facility]; Protocol Last Admin: 10/04/18 12:40 Dose: 4 unit Isosorbide Mononitrate (Imdur) 60 mg PO 0600 [facility] Last Admin: 10/04/18 05:54 Dose: 60 mg Lisinopril (Zestril) 10 mg PO DAILY [facility] Last Admin: 10/04/18 10:33 Dose: 10 mg Metoprolol Tartrate (Lopressor) 100 mg PO BRKDIN [facility] Last Admin: 10/04/18 08:55 Dose: 100 mg Nystatin (Nystop Topical Powder) 0 gm TOP TID [facility] Last Admin: 10/04/18 14:27 Dose: 1 applic Oxycodone/Acetaminophen (Percocet 5/325 Mg Tab) 1 tab PO Q6H PRN PRN Reason: Pain, moderate (4-7) Stop: 10/06/18 09:54 Last Admin: 10/04/18 12:41 Dose: 1 tab Pantoprazole Sodium (Protonix Ec Tab) 40 mg PO 0600 [facility] Last Admin: 10/04/18 05:54 Dose: 40 mg Primidone (Mysoline) 50 mg PO HS [facility] Last Admin: 10/03/18 22:25 Dose: 50 mg - Labs Labs: 10/04/18 06:15 10/04/18 06:15 - Additional Findings Additional findings: - Constitutional Appears: Non-toxic, No Acute Distress, Chronically Ill - Head Exam Head Exam: ATRAUMATIC, NORMAL INSPECTION, NORMOCEPHALIC - Eye Exam Eye Exam: EOMI, Normal appearance, PERRL - ENT Exam ENT Exam: Mucous Membranes Moist, Normal Exam - Cardiovascular Exam Cardiovascular Exam: RRR, +S1, +S2. absent: Gallop, Rubs, Murmur - GI/Abdominal Exam GI & Abdominal Exam: Soft, Normal Bowel Sounds. absent: Tenderness Additional comments: illiostomy pink, patent, productive, mild herniation noted. Fecal material noted in bag, output and air noted - Extremities Exam Extremities Exam: Full ROM, Normal Capillary Refill Additional comments: patient has history of L 1st and 2nd transmetatarsal amputation - Back Exam Back Exam: NORMAL INSPECTION. absent: CVA tenderness (L), CVA tenderness (R) - Neurological Exam Neurological Exam: Alert, Awake, Oriented x3 - Psychiatric Exam Psychiatric exam: Normal Affect, Normal Mood - Skin Skin Exam: Intact, Normal Color, Warm Assessment and Plan - Assessment and Plan (Free Text) Assessment: Pt is a 73 yo F with pmhx of CAD s/p CABG, T2DM, CHF s/p AICD placement, IDDM, neuropathy, PVD, HTN, HLD, ileostomy, chronic hip and knee pain who presents to [facility] ED for b/l LE weakness and pain. B/l LE venous doppler was negative for DVT bilaterally. Pt was also noted to have hyperkalemia and VALE on CKD on initial lab results. Pt on dobutamine drip at 7.5. Patient with PICC line since patient's port was removed. Patient with noble in place due to 1L of urinary retention. Hematuria resolved, was likely 2/2 trauma from noble placement. Plan: HFrEF s/p AICD, EF 25% - Pt on dobutamine, will get PICC line - Cardiology consulted - Lasix 40 IV BID - Continue home meds: Lisinopril 10mg PO daily Lopressor 100mg PO hs Imdur 60mg PO 0600 - CXR 09/29/18: Mild pulmonary venous congestive changes, bibasilar atelectasis, and small effusions Hyperkalemia 2/2 pre-existing CKD, Resolved - 10/04/18 K+=4.7 VALE on CKD stage 4, improved - Creatinine improved Cr=1.9 - Likely due to lasix - Avoid nephrotoxic meds 4. Urinary retention s/p noble likely 2/2 UTI, resolved - Patient had hematuria - Likely due to traumatic noble insertion - ID consulted (Dr. Coto); recommendations appreciated - Urology consulted (Dr. Borges); recommendations appreciated * Recommends Patient to go to rehab with noble in place * Once Patient is able to ambulate to bathroom can try voiding trial * Urine Cx should be addressed prior to voiding trial - Urine cx + for E. Faecalis - Monitor 5. History of CAD s/p CABG: - Continue home ASA, imdur, lopressor 6. Hx of HLD: - Continue home lipitor 7. History of IDDM: - ISS - PvsA5w=5.8 - Accu checks ACHS - Hypoglycemia protocol PPX: DVT: Heparin SC Patient is DNR/DNI at this time. Patient seen and case discussed in detail with Dr. Letty Mckeon PGY1 <Fidel Saenz - Last Filed: 10/04/18 17:14> Objective - Vital Signs/Intake and Output Vital Signs (last 24 hours): Temp Pulse Resp BP Pulse Ox 99.0 F 89 19 134/79 97 10/04/18 12:00 10/04/18 14:00 10/04/18 12:00 10/04/18 12:00 10/04/18 06:00 Intake and Output: 10/04/18 10/04/18 06:59 18:59 Intake Total 614 390 Output Total 1500 1500 Balance -886 -1110 - Medications Medications: Current Medications Acetaminophen (Tylenol 325mg Tab) 650 mg PO Q6H PRN PRN Reason: Pain, moderate (4-7) Last Admin: 10/03/18 07:42 Dose: 650 mg Albuterol/Ipratropium (Duoneb 3 Mg/0.5 Mg (3 Ml) Ud) 3 ml IH [id number] [facility] Last Admin: 10/04/18 15:50 Dose: 3 ml Amlodipine Besylate (Norvasc) 5 mg PO DAILY [facility] Last Admin: 10/04/18 10:32 Dose: 5 mg Ascorbic Acid (Vitamin C 500 Mg Tab) 500 mg PO DAILY [facility] Last Admin: 10/04/18 10:33 Dose: 500 mg Aspirin (Ecotrin) 81 mg PO 0800 [facility] Last Admin: 10/04/18 10:32 Dose: 81 mg Atorvastatin Calcium (Lipitor) 10 mg PO DIN [facility] Last Admin: 10/03/18 18:34 Dose: 10 mg Bacitracin (Bacitracin) 1 gm TOP BID [facility] Last Admin: 10/04/18 10:49 Dose: 1 gm Calcitriol (Rocaltrol) 0.25 mcg PO MWF [facility] Last Admin: 10/04/18 10:32 Dose: 0.25 mcg Calcium Carbonate (Oscal) 500 mg PO DAILY [facility] Last Admin: 10/04/18 10:33 Dose: 500 mg Cholecalciferol (Vitamin D) 1,000 intlu PO DAILY [facility] Last Admin: 10/04/18 10:32 Dose: 1,000 intlu Cyanocobalamin (Vitamin B12 1000 Mcg Tab) 1,000 mcg PO BID [facility] Last Admin: 10/04/18 10:33 Dose: 1,000 mcg Enoxaparin Sodium (Lovenox) 30 mg SC DAILY [facility]; Protocol Last Admin: 10/01/18 09:20 Dose: 30 mg Furosemide (Lasix) 40 mg IVP Q12 [facility] Last Admin: 10/04/18 10:31 Dose: 40 mg Gabapentin (Neurontin) 100 mg PO TID [facility]; Protocol Last Admin: 10/04/18 14:26 Dose: 100 mg Guaifenesin (Robitussin) 200 mg PO Q4H PRN PRN Reason: Cough and congestion Last Admin: 09/30/18 17:39 Dose: 200 mg Guaifenesin (Mucinex La) 600 mg PO BID [facility] Last Admin: 10/04/18 10:33 Dose: 600 mg Dobutamine HCl/Dextrose (Dobutamine/Dextrose 5% 500mg/250ml) 500 mg in 250 mls @ 18.677 mls/hr IV .[id number] PRN PRN Reason: Other Last Admin: 10/04/18 11:26 Dose: 18.677 mls/hr Insulin Human Regular (Humulin R Low) 0 units SC ACHS [facility]; Protocol Last Admin: 10/04/18 12:40 Dose: 4 unit Isosorbide Mononitrate (Imdur) 60 mg PO 0600 [facility] Last Admin: 10/04/18 05:54 Dose: 60 mg Lisinopril (Zestril) 10 mg PO DAILY [facility] Last Admin: 10/04/18 10:33 Dose: 10 mg Metoprolol Tartrate (Lopressor) 100 mg PO BRKDIN [facility] Last Admin: 10/04/18 08:55 Dose: 100 mg Nystatin (Nystop Topical Powder) 0 gm TOP TID [facility] Last Admin: 10/04/18 14:27 Dose: 1 applic Oxycodone/Acetaminophen (Percocet 5/325 Mg Tab) 1 tab PO Q6H PRN PRN Reason: Pain, moderate (4-7) Stop: 10/06/18 09:54 Last Admin: 10/04/18 12:41 Dose: 1 tab Pantoprazole Sodium (Protonix Ec Tab) 40 mg PO 0600 [facility] Last Admin: 10/04/18 05:54 Dose: 40 mg Primidone (Mysoline) 50 mg PO HS [facility] Last Admin: 10/03/18 22:25 Dose: 50 mg - Labs Labs: 10/04/18 06:15 10/04/18 06:15 Attending/Attestation - Attestation I have personally seen and examined this patient.: Yes I have fully participated in the care of the patient.: Yes I have reviewed all pertinent clinical information, including history, physical exam and plan: Yes Notes (Text): Clinically improved today. Systolic HF s/p AICD: Cardio on board, recommending emt intermediate doubutamine. s/p PICC line placement. SW on board to assist with meds set up upon DC. c/w diuretics Strict I/Os Hematuria with urinary retention most likely secondary to UTI: Tyron hematuria has resolved. H/H remains stable Urology on board recommends maintaining indwelling noble upon discharge. c/w Vanco for Enterobacter in urine, random vanco level today is 16.6. ID on board Hyperkalemia: K of 5.1. Will monitor and correct electrolytes as needed VALE on CKD: Monitor Cr closely Currently around baseline Pt is DNR. 10/04/18 17:02
--- NOTE | 2018-10-04 18:30 | PN ---
DATE: 10/04/[address] Vinnie Vidales SUBJECTIVE: The patient is currently on Dobutrex infusion at 7.5 mcg/kg/minute and mild short of breath, but denies any chest pain. PHYSICAL EXAMINATION VITAL SIGNS: Blood pressure is 152/86, heart rate 82, temperature 98.5, and respiration 20. HEENT: Normocephalic. CHEST: Minimal . HEART: S1, S2 regular. ABDOMEN: Soft. EXTREMITIES: Mild bilateral leg cellulitis. LABORATORY DATA: EKG reveals sinus . No sinus arrhythmia. ST-T wave abnormality. Consider inferolateral ischemia. Mild prolonged QT interval. Echocardiographic study in July of this year revealed [id number] left ventricular hypokinesis, moderate MR and TR, moderate pulmonary hypertension. ASSESSMENT: 1. End-stage cardiomyopathy. 2. Uncontrolled diabetes mellitus. 3. Hypertension. 4. Chronic renal insufficiency. RECOMMENDATIONS: Continue aspirin 81 mg once a day, Dobutrex infusion 7.5 mcg/kg/minute, continue Imdur 60 mg once daily, Lasix 40 mg intravenous twice daily, Lipitor 10 mg once a day, Lopressor 100 mg twice a day, subcutaneous Lovenox at 30 mg daily, Norvasc 5 mg once a day and Zestril 10 mg once a day. PLAN: The plan is for the patient to go home on Primacor infusion. Luís Weston MD
[2018-10-05] MEDS: DOBUTamine 500mg/250ml D5W 500 MG/250 ML BAG IV PRN (01:04)
[2018-10-05] MEDS: Albuterol-Ipratrop 3 mg / 0.5 (3 ml) UD IH SCH ×5 (03:41→20:17)
[2018-10-05] MEDS: Pantoprazole 40 mg EC Tab PO SCH (06:01)
[2018-10-05 06:39] LABS: HEMOGLOBIN 11.5 g/dL (12.0-16.0); MEAN CORPUSCULAR HEMOGLOBIN 28.8 pg (25.0-35.0); MEAN CORPUSCULAR HGB CONC 30.7 g/dl (31.0-37.0); MEAN PLATELET VOLUME 10.3 fl (7.0-11.0); RBC 3.99 10^6/uL (3.5-6.1); RED CELL DISTRIBUTION WIDTH 15.5 % (11.5-14.5); WHITE BLOOD COUNT 9.3 10^3/uL (4.5-11.0)
[2018-10-05 06:50] LABS: CALCIUM 8.6 mg/dL (8.4-10.5)
[2018-10-05] MEDS: Insulin Reg-LOW-Coverage SC SCH ×4 (08:28→22:23)
[2018-10-05] MEDS: Bacitracin Ointment 30 GM TUBE TOP SCH (10:39)
[2018-10-05] MEDS: Cholecalciferol 1,000 INTLU TAB PO SCH (10:41)
[2018-10-05] MEDS: guaiFENesin 600 mg ER Tab PO SCH ×2 (10:41→18:08)
[2018-10-05] MEDS: Nystatin 100,000 Units/gm Topical Pow(15 gm) TOP SCH ×3 (10:43→18:13)
--- NOTE | 2018-10-05 10:54 | RAD ---
Date of service: 10/05/2018 HISTORY: wheezing COMPARISON: 10/03/2018 FINDINGS: LUNGS: No active pulmonary disease. PLEURA: No significant pleural effusion identified, no pneumothorax apparent. CARDIOVASCULAR: No aortic atherosclerotic calcification present. Severe cardiomegaly mild vascular congestion OSSEOUS STRUCTURES: Sternal wires VISUALIZED UPPER ABDOMEN: Normal. OTHER FINDINGS: Pacemaker IMPRESSION: Severe cardiomegaly with mild vascular congestion
[2018-10-05] MEDS ORDERED: Bacitracin Ointment 30 GM TUBE TOP SCH (11:22)
[2018-10-05] MEDS ORDERED: Bacitracin 500 Units/gm Oint Foilpak UD TOP ONE (11:30)
--- NOTE | 2018-10-05 14:23 | CP.PCM.PN ---
Subjective - Date & Time of Evaluation Date of Evaluation: 10/05/18 Time of Evaluation: 06:10 - Subjective Subjective: Awake, alert no, distress Reason for consultation and follow up:Cardiac evaluation of cardiomyopathy, history coronary artery disease, AICD. Seen and examined by me and Dr. Flores COVERING Dr. Vinnie Vidales Objective - Vital Signs/Intake and Output Vital Signs (last 24 hours): Temp Pulse Resp BP Pulse Ox 99.1 F 101 H 20 140/79 93 L 10/05/18 12:00 10/05/18 14:00 10/05/18 12:00 10/05/18 12:00 10/05/18 10:30 Intake and Output: 10/05/18 10/05/18 06:59 18:59 Intake Total 120 Output Total 1500 Balance -1380 - Medications Medications: Current Medications Acetaminophen (Tylenol 325mg Tab) 650 mg PO Q6H PRN PRN Reason: Pain, moderate (4-7) Last Admin: 10/03/18 07:42 Dose: 650 mg Albuterol/Ipratropium (Duoneb 3 Mg/0.5 Mg (3 Ml) Ud) 3 ml IH [id number] [facility] Last Admin: 10/05/18 11:05 Dose: 3 ml Amlodipine Besylate (Norvasc) 5 mg PO DAILY [facility] Last Admin: 10/05/18 10:41 Dose: 5 mg Ascorbic Acid (Vitamin C 500 Mg Tab) 500 mg PO DAILY [facility] Last Admin: 10/05/18 10:41 Dose: 500 mg Aspirin (Ecotrin) 81 mg PO 0800 [facility] Last Admin: 10/05/18 08:29 Dose: 81 mg Atorvastatin Calcium (Lipitor) 10 mg PO DIN [facility] Last Admin: 10/04/18 17:20 Dose: 10 mg Bacitracin (Bacitracin) 1 ea TOP BID [facility] Calcitriol (Rocaltrol) 0.25 mcg PO MWF [facility] Last Admin: 10/04/18 10:32 Dose: 0.25 mcg Calcium Carbonate (Oscal) 500 mg PO DAILY [facility] Last Admin: 10/05/18 10:41 Dose: 500 mg Cholecalciferol (Vitamin D) 1,000 intlu PO DAILY [facility] Last Admin: 10/05/18 10:41 Dose: 1,000 intlu Cyanocobalamin (Vitamin B12 1000 Mcg Tab) 1,000 mcg PO BID [facility] Last Admin: 10/05/18 10:41 Dose: 1,000 mcg Furosemide (Lasix) 40 mg IVP Q12 [facility] Last Admin: 10/05/18 10:39 Dose: 40 mg Gabapentin (Neurontin) 100 mg PO TID [facility]; Protocol Last Admin: 10/05/18 13:44 Dose: 100 mg Guaifenesin (Robitussin) 200 mg PO Q4H PRN PRN Reason: Cough and congestion Last Admin: 09/30/18 17:39 Dose: 200 mg Guaifenesin (Mucinex La) 600 mg PO BID [facility] Last Admin: 10/05/18 10:41 Dose: 600 mg Dobutamine HCl/Dextrose (Dobutamine/Dextrose 5% 500mg/250ml) 500 mg in 250 mls @ 18.677 mls/hr IV .[id number] PRN PRN Reason: Other Last Admin: 10/05/18 01:04 Dose: 18.677 mls/hr Insulin Human Lispro (Humalog) 4 units SC AC [facility] Insulin Human Regular (Humulin R Low) 0 units SC ACHS [facility]; Protocol Last Admin: 10/05/18 11:57 Dose: 2 unit Isosorbide Mononitrate (Imdur) 60 mg PO 0600 [facility] Last Admin: 10/05/18 06:01 Dose: 60 mg Lisinopril (Zestril) 10 mg PO DAILY [facility] Last Admin: 10/05/18 10:41 Dose: 10 mg Metoprolol Tartrate (Lopressor) 100 mg PO BRKDIN [facility] Last Admin: 10/05/18 08:29 Dose: 100 mg Nystatin (Nystop Topical Powder) 0 gm TOP TID [facility] Last Admin: 10/05/18 13:44 Dose: 2 applic Oxycodone/Acetaminophen (Percocet 5/325 Mg Tab) 1 tab PO Q6H PRN PRN Reason: Pain, moderate (4-7) Stop: 10/06/18 09:54 Last Admin: 10/04/18 12:41 Dose: 1 tab Primidone (Mysoline) 50 mg PO HS [facility] Last Admin: 10/04/18 22:09 Dose: 50 mg - Labs Labs: 10/05/18 06:20 10/05/18 06:20 - Constitutional Appears: Non-toxic, No Acute Distress - Head Exam Head Exam: NORMAL INSPECTION, NORMOCEPHALIC - Eye Exam Eye Exam: Normal appearance Pupil Exam: NORMAL ACCOMODATION - ENT Exam ENT Exam: Mucous Membranes Moist - Cardiovascular Exam Additional comments: AICD - GI/Abdominal Exam GI & Abdominal Exam: Soft, Normal Bowel Sounds - Exam Additional comments: noble catheter - Extremities Exam Extremities Exam: Full ROM Additional comments: 2+ edema - Neurological Exam Neurological Exam: Alert, Awake, Oriented x3 - Psychiatric Exam Psychiatric exam: Normal Affect, Normal Mood - Skin Skin Exam: Dry, Normal Color, Warm Assessment and Plan - Assessment and Plan (Free Text) Assessment: A 73 year old female who came in to the ER due to weakness and pain on both legs. History of coronary artery disease, post CABG, diabetes, cardiomyopathy (EF 25%) post AICD, PVD, hypertension,hyperlipidemia, ileostomy,chronic hip and knee pain,CHF, renal insufficiency, hyperkalemia, urinary retention inserted noble catheter.UTI (E. Faecalis). On Dobutrex drip. Plan: Denies shortness of breath Heart rate controlled Blood pressure controlled Continue current medications Continue current treatment So far negative 2 liters balance post 24 hour I & O Chest X ray today showed mild vascular congestion, severe cardiomegaly Will continue Lasix IV for now Will change Dobutrex to Primacor drip Continue current medications Continue current treatment Will follow up Plan and treatment discussed with Dr. Flores COVERING Dr. Vinnie Vidales
--- NOTE | 2018-10-05 15:08 | CP.PCM.PN ---
<Gladis Peterson - Last Filed: 10/05/18 15:03> Subjective - Date & Time of Evaluation Date of Evaluation: 10/05/18 Time of Evaluation: 15:04 - Subjective Subjective: Gladis Peterson, PGY-1 Medicine Progress Note for Dr. Stephon Shaver: Pt was seen and examined this AM at bedside. Pt denies any acute overnight events. She states that she is continuing to feel weak and shaky. She states she is otherwise tolerating her diet with no associated n/v. She is denying any fevers, chills, chest pain, palpitations, cough, numbness, tingling, dysuria or hematuria. She states she is still having some SOB, but is stable since yesterday. Objective - Vital Signs/Intake and Output Vital Signs (last 24 hours): Temp Pulse Resp BP Pulse Ox 99.1 F 101 H 20 140/79 93 L 10/05/18 12:00 10/05/18 14:00 10/05/18 12:00 10/05/18 12:00 10/05/18 10:30 Intake and Output: 10/05/18 10/05/18 06:59 18:59 Intake Total 120 Output Total 1500 Balance -1380 - Medications Medications: Current Medications Acetaminophen (Tylenol 325mg Tab) 650 mg PO Q6H PRN PRN Reason: Pain, moderate (4-7) Last Admin: 10/03/18 07:42 Dose: 650 mg Albuterol/Ipratropium (Duoneb 3 Mg/0.5 Mg (3 Ml) Ud) 3 ml IH [id number] [facility] Last Admin: 10/05/18 11:05 Dose: 3 ml Amlodipine Besylate (Norvasc) 5 mg PO DAILY [facility] Last Admin: 10/05/18 10:41 Dose: 5 mg Ascorbic Acid (Vitamin C 500 Mg Tab) 500 mg PO DAILY [facility] Last Admin: 10/05/18 10:41 Dose: 500 mg Aspirin (Ecotrin) 81 mg PO 0800 [facility] Last Admin: 10/05/18 08:29 Dose: 81 mg Atorvastatin Calcium (Lipitor) 10 mg PO DIN [facility] Last Admin: 10/04/18 17:20 Dose: 10 mg Bacitracin (Bacitracin) 1 ea TOP BID [facility] Calcitriol (Rocaltrol) 0.25 mcg PO MWF [facility] Last Admin: 10/04/18 10:32 Dose: 0.25 mcg Calcium Carbonate (Oscal) 500 mg PO DAILY [facility] Last Admin: 10/05/18 10:41 Dose: 500 mg Cholecalciferol (Vitamin D) 1,000 intlu PO DAILY [facility] Last Admin: 10/05/18 10:41 Dose: 1,000 intlu Cyanocobalamin (Vitamin B12 1000 Mcg Tab) 1,000 mcg PO BID [facility] Last Admin: 10/05/18 10:41 Dose: 1,000 mcg Furosemide (Lasix) 40 mg IVP Q12 [facility] Last Admin: 10/05/18 10:39 Dose: 40 mg Gabapentin (Neurontin) 100 mg PO TID [facility]; Protocol Last Admin: 10/05/18 13:44 Dose: 100 mg Guaifenesin (Robitussin) 200 mg PO Q4H PRN PRN Reason: Cough and congestion Last Admin: 09/30/18 17:39 Dose: 200 mg Guaifenesin (Mucinex La) 600 mg PO BID [facility] Last Admin: 10/05/18 10:41 Dose: 600 mg Milrinone Lactate/Dextrose (Primacor 20mg/100ml D5w) 100 mls @ 8.879 mls/hr IV .[id number] PRN; Protocol PRN Reason: TITRATE PER MD ORDER Insulin Human Lispro (Humalog) 4 units SC AC [facility] Insulin Human Regular (Humulin R Low) 0 units SC ACHS [facility]; Protocol Last Admin: 10/05/18 11:57 Dose: 2 unit Isosorbide Mononitrate (Imdur) 60 mg PO 0600 [facility] Last Admin: 10/05/18 06:01 Dose: 60 mg Lisinopril (Zestril) 10 mg PO DAILY [facility] Last Admin: 10/05/18 10:41 Dose: 10 mg Metoprolol Tartrate (Lopressor) 100 mg PO BRKDIN [facility] Last Admin: 10/05/18 08:29 Dose: 100 mg Nystatin (Nystop Topical Powder) 0 gm TOP TID [facility] Last Admin: 10/05/18 13:44 Dose: 2 applic Oxycodone/Acetaminophen (Percocet 5/325 Mg Tab) 1 tab PO Q6H PRN PRN Reason: Pain, moderate (4-7) Stop: 10/06/18 09:54 Last Admin: 10/04/18 12:41 Dose: 1 tab Primidone (Mysoline) 50 mg PO HS [id number] Last Admin: 10/04/18 22:09 Dose: 50 mg - Labs Labs: 10/05/18 06:20 10/05/18 06:20 - Constitutional Appears: Non-toxic, No Acute Distress, Chronically Ill - Head Exam Head Exam: ATRAUMATIC, NORMAL INSPECTION, NORMOCEPHALIC - Eye Exam Eye Exam: EOMI, Normal appearance, PERRL - ENT Exam ENT Exam: Mucous Membranes Moist, Normal Oropharynx - Respiratory Exam Respiratory Exam: Rhonchi (present b/l in all lung yang), Wheezes, NORMAL BREATHING PATTERN. absent: Accessory Muscle Use, Decreased Breath Sounds, Rales, Respiratory Distress, Stridor - Cardiovascular Exam Cardiovascular Exam: RRR, +S1, +S2. absent: Gallop, Rubs - GI/Abdominal Exam GI & Abdominal Exam: Soft, Normal Bowel Sounds. absent: Guarding, Rigid, Tenderness Additional comments: illiostomy pink, patent, productive, mild herniation noted. Fecal material noted in bag, output and air note - Extremities Exam Additional comments: patient has history of L 1st and 2nd transmetatarsal amputation - Back Exam Back Exam: NORMAL INSPECTION. absent: CVA tenderness (L), CVA tenderness (R) - Neurological Exam Neurological Exam: Alert, Awake, Oriented x3 - Psychiatric Exam Psychiatric exam: Normal Affect, Normal Mood - Skin Skin Exam: Dry, Intact, Normal Color, Warm Assessment and Plan - Assessment and Plan (Free Text) Assessment: Pt is a 73 yo F with pmhx of CAD s/p CABG, T2DM, CHF s/p AICD placement, IDDM, neuropathy, PVD, HTN, HLD, ileostomy, chronic hip and knee pain who presents to [facility] for b/l LE weakness and pain. B/l LE venous doppler was negative for DVT bilaterally. Pt was also noted to have hyperkalemia and VALE on CKD on initial lab results. Pt on dobutamine drip at 7.5. Patient with PICC line since patient's port was removed. Patient with noble in place due to 1L of urinary retention. Hematuria resolved, was likely 2/2 trauma from noble placement. Plan: 1. HFrEF s/p AICD, EF 25% - Pt on dobutamine, will get PICC line - Cardiology consulted - Lasix 40 IV BID - Continue home meds: Lisinopril 10mg PO daily Lopressor 100mg PO hs Imdur 60mg PO 0600 - CXR 09/29/18: Mild pulmonary venous congestive changes, bibasilar atelectasis, and small effusions 2. Hyperkalemia 2/2 pre-existing CKD, Resolved - Will continue to monitor 3. VALE on CKD stage 4, improved - Creatinine improved Cr=1.9 - Likely due to lasix - Avoid nephrotoxic meds 4. Urinary retention s/p noble likely 2/2 UTI, resolved - Patient had hematuria - Likely due to traumatic noble insertion - ID consulted (Dr. Coto); recommendations appreciated - Urology consulted (Dr. Borges); recommendations appreciated * Recommends Patient to go to rehab with noble in place * Once Patient is able to ambulate to bathroom can try voiding trial * Urine Cx should be addressed prior to voiding trial - Urine cx + for E. Faecalis - Monitor 5. History of CAD s/p CABG: - Continue home ASA, imdur, lopressor 6. Hx of HLD: - Continue home lipitor 7. History of IDDM: - ISS - [id number]=[id number] - Accu checks ACHS - Hypoglycemia protocol 8. PPX: DVT: Heparin SC Patient is DNR/DNI at this time. Patient seen and case discussed in detail with Dr. Stephon Peterson DO Internal Medicine PGY-1 <Melissa Shaver R - Last Filed: 10/05/18 18:59> Objective - Vital Signs/Intake and Output Vital Signs (last 24 hours): Temp Pulse Resp BP Pulse Ox 99.1 F 92 H 18 103/56 L 96 10/05/18 12:00 10/05/18 18:08 10/05/18 16:20 10/05/18 18:08 10/05/18 16:20 Intake and Output: 10/05/18 10/05/18 06:59 18:59 Intake Total 120 167 Output Total 1500 Balance -1380 167 - Medications Medications: Current Medications Acetaminophen (Tylenol 325mg Tab) 650 mg PO Q6H PRN PRN Reason: Pain, moderate (4-7) Last Admin: 10/03/18 07:42 Dose: 650 mg Albuterol/Ipratropium (Duoneb 3 Mg/0.5 Mg (3 Ml) Ud) 3 ml IH [id number] [facility] Last Admin: 10/05/18 15:38 Dose: 3 ml Amlodipine Besylate (Norvasc) 5 mg PO DAILY [facility] Last Admin: 10/05/18 10:41 Dose: 5 mg Ascorbic Acid (Vitamin C 500 Mg Tab) 500 mg PO DAILY [facility] Last Admin: 10/05/18 10:41 Dose: 500 mg Aspirin (Ecotrin) 81 mg PO 0800 [facility] Last Admin: 10/05/18 08:29 Dose: 81 mg Atorvastatin Calcium (Lipitor) 10 mg PO DIN [facility] Last Admin: 10/05/18 18:08 Dose: 10 mg Bacitracin (Bacitracin) 1 ea TOP BID [facility] Last Admin: 10/05/18 18:13 Dose: 1 ea Calcitriol (Rocaltrol) 0.25 mcg PO MWF [facility] Last Admin: 10/04/18 10:32 Dose: 0.25 mcg Calcium Carbonate (Oscal) 500 mg PO DAILY [facility] Last Admin: 10/05/18 10:41 Dose: 500 mg Cholecalciferol (Vitamin D) 1,000 intlu PO DAILY [facility] Last Admin: 10/05/18 10:41 Dose: 1,000 intlu Cyanocobalamin (Vitamin B12 1000 Mcg Tab) 1,000 mcg PO BID [facility] Last Admin: 10/05/18 18:09 Dose: 1,000 mcg Furosemide (Lasix) 40 mg IVP Q12 [facility] Last Admin: 10/05/18 10:39 Dose: 40 mg Gabapentin (Neurontin) 100 mg PO TID [facility]; Protocol Last Admin: 10/05/18 18:12 Dose: 100 mg Guaifenesin (Robitussin) 200 mg PO Q4H PRN PRN Reason: Cough and congestion Last Admin: 09/30/18 17:39 Dose: 200 mg Guaifenesin (Mucinex La) 600 mg PO BID [facility] Last Admin: 10/05/18 18:08 Dose: 600 mg Milrinone Lactate/Dextrose (Primacor 20mg/100ml D5w) 100 mls @ 8.879 mls/hr IV .[id number] PRN; Protocol PRN Reason: TITRATE PER MD ORDER Last Admin: 10/05/18 16:11 Dose: 0.375 mcg/kg/min, 8.879 mls/hr Insulin Human Lispro (Humalog) 4 units SC AC [facility] Last Admin: 10/05/18 18:09 Dose: 4 units Insulin Human Regular (Humulin R Low) 0 units SC ACHS [facility]; Protocol Last Admin: 10/05/18 18:09 Dose: 2 unit Isosorbide Mononitrate (Imdur) 60 mg PO 0600 [facility] Last Admin: 10/05/18 06:01 Dose: 60 mg Lisinopril (Zestril) 10 mg PO DAILY [facility] Last Admin: 10/05/18 10:41 Dose: 10 mg Metoprolol Tartrate (Lopressor) 100 mg PO BRKDIN [facility] Last Admin: 10/05/18 18:08 Dose: 100 mg Nystatin (Nystop Topical Powder) 0 gm TOP TID [facility] Last Admin: 10/05/18 18:13 Dose: 2 applic Oxycodone/Acetaminophen (Percocet 5/325 Mg Tab) 1 tab PO Q6H PRN PRN Reason: Pain, moderate (4-7) Stop: 10/06/18 09:54 Last Admin: 10/04/18 12:41 Dose: 1 tab Primidone (Mysoline) 50 mg PO HS [facility] Last Admin: 10/04/18 22:09 Dose: 50 mg - Labs Labs: 10/05/18 06:20 10/05/18 06:20 Attending/Attestation - Attestation I have personally seen and examined this patient.: Yes I have fully participated in the care of the patient.: Yes I have reviewed all pertinent clinical information, including history, physical exam and plan: Yes Notes (Text): Patient seen and examined by me with resident at 9:05 AM on 10/05/18. Case including HPI, physical exam, and assessment and plan discussed with resident. Agree with above with following additions/corrections. Patient is a 73-year-old female with past medical history significant for coronary artery disease status post CABG, insulin-dependent type 2 diabetes, chronic systolic CHF status post AICD placement, neuropathy, peripheral vascular disease, hypertension, hyperlipidemia, ileostomy, and chronic hip and knee pain that presented to the emergency room with bilateral lower extremity weakness and pain. Patient states she is not feeling that well today. She states that she is feeling weak and more tremulous than normal. Patient states she is also having a dry cough but no sputum production. No chest pain or shortness of breath. No fevers or chills. No headaches or dizziness. No nausea, vomiting, or abdominal pain. No dysuria. No diarrhea or constipation. Physical exam: General: Awake and alert sitting up in bed in no acute distress HEENT: Normocephalic, atraumatic. Extraocular muscles intact, pupils equal and reactive, no scleral icterus. Oropharynx is pink and moist. Neck is supple. Cardiovascular: Tachycardic S1 and S2. No murmurs, rubs, or gallops appreciated Pulmonary: Normal respiratory effort. Coarse breath sounds throughout. No rales or wheezing appreciated. Gastrointestinal: Soft, nondistended. Nontender. Positive bowel sounds all 4 quadrants. No guarding. Positive colostomy in place. Musculoskeletal: Moves all extremities. No calf tenderness. Bilateral lower extremity chronic edema and venous stasis color changes. Central nervous system: AAOx3 Dermatologic: Skin warm and dry. Assessment and plan: Patient is a 73-year-old female with past medical history significant for coronary artery disease status post CABG, insulin-dependent type 2 diabetes, chronic systolic CHF status post AICD placement, neuropathy, peripheral vascular disease, hypertension, hyperlipidemia, ileostomy, and chronic hip and knee pain that presented to the emergency room with bilateral lower extremity weakness and pain. 1. Acute on chronic systolic CHF exacerbation. End-stage dilated cardiomyopathy. Cardiology following, recommendations appreciated. Continue with dobutamine drip. Patient with some tachycardia. Discussed with cardiology. Chest x-ray per radiologist today showed severe cardiomegaly with mild vascular congestion. Continue with IV Lasix. Continue with Lopressor and lisinopril. Continue to monitor ins and outs. Monitor daily weights. 2. Enterococcus faecalis UTI. Hematuria. Continue vancomycin dosing as per ID. Hematuria resolved. Patient to continue with noble catheter until able to get up and move around per urology. Urology recommendations appreciated. ID recommendations appreciated. 3. VALE on CKD. Creatinine stablized. Patient on Lasix. Continue to monitor. 4. Hyperkalemia. Resolved. Continue to monitor. 5. CAD s/p CABG. Continue aspirin, Lipitor, and Lopressor. Cardiology following, recommendations appreciated. 6. Insulin-dependent type 2 diabetes. Continue insulin sliding scale. Add Humalog 4 units subcutaneous before meals. Continue to monitor Accu-Cheks. 7. Essential hypertension. Continue Lopressor, lisinopril, Norvasc, and Imdur. 8. Hyperlipidemia. Continue Lipitor. 9. Neuropathy. Leg weakness. Gait instability. Continue gabapentin. Patient will need to go to subacute rehabilitation. Continue physical therapy. 10. T12 compression fracture. Age indeterminate. IR recommendations appreciated. Continue physical therapy. No surgical intervention 11. Diarrhea. Stool cultures negative. Stool for c-diff negative. Continue to monitor. 12. Essential tremor. Continue home Primidone 13. DVT prophylaxis. Hold anticoagulation until hematuria completely resolved. 14. Advanced directive. Patient has a POLST and is DNR/DNI. Case was discussed in detail with the patient, primary health care nurse, and patient's nurse regarding current diagnosis and treatment plan.
[2018-10-05] MEDS: Milrinone 20mg/100ml D5W 100 ML IV PRN (16:11)
[2018-10-05] MEDS: Insulin Lispro 1 UNITS/0.01 ML SC SCH (18:09)
[2018-10-05] MEDS: Bacitracin 500 Units/gm Oint Foilpak UD TOP SCH (18:13)
[2018-10-06] MEDS: Albuterol-Ipratrop 3 mg / 0.5 (3 ml) UD IH SCH ×6 (00:10→19:53)
[2018-10-06] MEDS: Milrinone 20mg/100ml D5W 100 ML IV PRN ×2 (02:11→13:21)
--- NOTE | 2018-10-06 04:57 | PN ---
DATE: 10/05/2018 SUBJECTIVE: The patient seen early this morning. No acute distress. PHYSICAL EXAMINATION: VITAL SIGNS: Temperature 97, blood pressure is 103/50, respiratory rate 20, heart rate 92. HEENT: Examination of HEENT is unremarkable. NECK: Supple. LUNGS: Decreased breath sounds. HEART: Normal S1, S2. ABDOMEN: Soft. LABORATORY DATA: Laboratory examination reveals a white count of 9.3. Chemistries are noted with a creatinine of 2 and random vanco level is ____. Microbiology reveals the enterococcus in the urine and review of orders reveals the patient to be on intermittent vancomycin. ASSESSMENT AND PLAN: This is a 73-year-old female with hematuria secondary to urinary retention and enterococcus with history of diabetes and aneurysm, intermittent vancomycin day #4 and today's vanco level is 12, complete 5 to 7 days of antibiotics. José Luis Trevino MD
[2018-10-06] MEDS: Insulin Lispro 1 UNITS/0.01 ML SC SCH ×3 (08:01→17:03)
[2018-10-06] MEDS: Oxycodone/Acetaminophen 5/325 mg Tab PO PRN (08:02)
[2018-10-06] MEDS: Insulin Reg-LOW-Coverage SC SCH ×4 (08:16→21:48)
[2018-10-06 08:43] LABS: ALBUMIN 2.6 g/dL (3.0-4.8); CALCIUM 8.4 mg/dL (8.4-10.5)
--- NOTE | 2018-10-06 08:47 | CP.PCM.PN ---
Subjective - Date & Time of Evaluation Date of Evaluation: 10/06/18 Time of Evaluation: 06:30 - Subjective Subjective: Sleeping but easily awaken, no, distress, denies shortness of breath Reason for consultation and follow up:Cardiac evaluation of cardiomyopathy, history coronary artery disease, AICD. Seen and examined by me and Dr. Flores COVERING Dr. Vinnie Vidales Objective - Vital Signs/Intake and Output Vital Signs (last 24 hours): Temp Pulse Resp BP Pulse Ox 97.9 F 106 H 20 117/55 L 96 10/06/18 00:01 10/06/18 08:02 10/05/18 18:00 10/06/18 06:00 10/05/18 16:20 Intake and Output: 10/06/18 10/06/18 06:59 18:59 Intake Total 720 Output Total 1250 Balance -530 - Medications Medications: Current Medications Acetaminophen (Tylenol 325mg Tab) 650 mg PO Q6H PRN PRN Reason: Pain, moderate (4-7) Last Admin: 10/03/18 07:42 Dose: 650 mg Albuterol/Ipratropium (Duoneb 3 Mg/0.5 Mg (3 Ml) Ud) 3 ml IH [id number] [facility] Last Admin: 10/06/18 07:14 Dose: 3 ml Amlodipine Besylate (Norvasc) 5 mg PO DAILY [facility] Last Admin: 10/05/18 10:41 Dose: 5 mg Ascorbic Acid (Vitamin C 500 Mg Tab) 500 mg PO DAILY [facility] Last Admin: 10/05/18 10:41 Dose: 500 mg Aspirin (Ecotrin) 81 mg PO 0800 [facility] Last Admin: 10/06/18 08:03 Dose: 81 mg Atorvastatin Calcium (Lipitor) 10 mg PO DIN [facility] Last Admin: 10/05/18 18:08 Dose: 10 mg Bacitracin (Bacitracin) 1 ea TOP BID [facility] Last Admin: 10/05/18 18:13 Dose: 1 ea Calcitriol (Rocaltrol) 0.25 mcg PO MWF [facility] Last Admin: 10/04/18 10:32 Dose: 0.25 mcg Calcium Carbonate (Oscal) 500 mg PO DAILY [facility] Last Admin: 10/05/18 10:41 Dose: 500 mg Cholecalciferol (Vitamin D) 1,000 intlu PO DAILY [facility] Last Admin: 12/08/18 10:41 Dose: 1,000 intlu Cyanocobalamin (Vitamin B12 1000 Mcg Tab) 1,000 mcg PO BID [facility] Last Admin: 10/05/18 18:09 Dose: 1,000 mcg Furosemide (Lasix) 40 mg IVP Q12 [facility] Last Admin: 10/05/18 21:48 Dose: 40 mg Gabapentin (Neurontin) 100 mg PO TID [facility]; Protocol Last Admin: 10/05/18 18:12 Dose: 100 mg Guaifenesin (Robitussin) 200 mg PO Q4H PRN PRN Reason: Cough and congestion Last Admin: 09/30/18 17:39 Dose: 200 mg Guaifenesin (Mucinex La) 600 mg PO BID [facility] Last Admin: 10/05/18 18:08 Dose: 600 mg Milrinone Lactate/Dextrose (Primacor 20mg/100ml D5w) 100 mls @ 8.879 mls/hr IV .[id number] PRN; Protocol PRN Reason: TITRATE PER MD ORDER Last Admin: 10/06/18 02:11 Dose: 0.375 mcg/kg/min, 8.879 mls/hr Insulin Human Lispro (Humalog) 4 units SC AC [facility] Last Admin: 10/06/18 08:01 Dose: 4 units Insulin Human Regular (Humulin R Low) 0 units SC [facility]; Protocol Last Admin: 10/06/18 08:16 Dose: 1 unit Isosorbide Mononitrate (Imdur) 60 mg PO 0600 [facility] Last Admin: 10/06/18 05:28 Dose: 60 mg Lisinopril (Zestril) 10 mg PO DAILY [facility] Last Admin: 10/05/18 10:41 Dose: 10 mg Metoprolol Tartrate (Lopressor) 100 mg PO BRKDIN [facility] Last Admin: 10/06/18 08:02 Dose: 100 mg Nystatin (Nystop Topical Powder) 0 gm TOP TID [facility] Last Admin: 10/05/18 18:13 Dose: 2 applic Oxycodone/Acetaminophen (Percocet 5/325 Mg Tab) 1 tab PO Q6H PRN PRN Reason: Pain, moderate (4-7) Stop: 10/06/18 09:54 Last Admin: 10/06/18 08:02 Dose: 1 tab Primidone (Mysoline) 50 mg PO HS [facility] Last Admin: 10/05/18 21:54 Dose: 50 mg - Labs Labs: 10/05/18 06:20 10/06/18 08:18 - Constitutional Appears: Non-toxic, No Acute Distress - Head Exam Head Exam: NORMAL INSPECTION, NORMOCEPHALIC - Eye Exam Eye Exam: Normal appearance Pupil Exam: NORMAL ACCOMODATION - ENT Exam ENT Exam: Mucous Membranes Moist - Respiratory Exam Respiratory Exam: Decreased Breath Sounds, NORMAL BREATHING PATTERN - Cardiovascular Exam Cardiovascular Exam: REGULAR RHYTHM, +S1, +S2 - GI/Abdominal Exam GI & Abdominal Exam: Soft, Normal Bowel Sounds Additional comments: ileostomy - Extremities Exam Extremities Exam: Full ROM Additional comments: 2+edema - Neurological Exam Neurological Exam: Alert, Awake, Oriented x3 - Psychiatric Exam Psychiatric exam: Normal Affect, Normal Mood - Skin Skin Exam: Dry, Normal Color, Warm Assessment and Plan - Assessment and Plan (Free Text) Assessment: A 73 year old female who came in to the ER due to weakness and pain on both le gs. History of coronary artery disease, post CABG, diabetes, cardiomyopathy (EF 25%) post AICD, PVD, hypertension,hyperlipidemia, ileostomy,chronic hip and knee pain,CHF, renal insufficiency, hyperkalemia, urinary retention inserted noble catheter. UTI (E. Faecalis). On Dobutrex drip switch to Primacor drip.Symptoms improved. Plan: Symptoms improved Denies shortness of breath, comfortable Heart rate controlled Blood pressure controlled On Norvasc 5 mg daily,ASA 81 mg daily,Lasix 40 mg daily,Imdur 60 mg daily, Lopressor 100 mg daily Continue current medications Continue current treatment Continue Milrinone drip Will repeat Chest X ray in am Continue current medications Continue current treatment Will follow up Plan and treatment discussed with Dr. Flores COVERING Dr. Vinnie Vidales
[2018-10-06] MEDS ORDERED: Vancomycin 500mg in NS 500 MG/100 ML BAG IVPB STA (09:53)
[2018-10-06] MEDS: Bacitracin 500 Units/gm Oint Foilpak UD TOP SCH ×2 (10:14→17:02)
[2018-10-06] MEDS: guaiFENesin 600 mg ER Tab PO SCH ×2 (10:15→17:03)
[2018-10-06] MEDS: Cholecalciferol 1,000 INTLU TAB PO SCH (10:15)
[2018-10-06] MEDS: Nystatin 100,000 Units/gm Topical Pow(15 gm) TOP SCH ×3 (10:30→19:10)
[2018-10-06 10:42] LABS: BASO # 0.02 K/mm3 (0.0-2.0); BASO % 0.2 % (0.0-3.0); EOS # 0.7 (0.0-0.7); EOS % 6.9 % (1.5-5.0); GRAN # 7.26 (1.4-6.5); GRAN % 77.3 % (50.0-68.0); HEMOGLOBIN 10.7 g/dL (12.0-16.0); LYMPH % 10.4 % (22.0-35.0); MEAN CELL VOLUME 93.3 fl (80.0-105.0); MEAN CORPUSCULAR HEMOGLOBIN 28.7 pg (25.0-35.0); MEAN CORPUSCULAR HGB CONC 30.7 g/dl (31.0-37.0); MEAN PLATELET VOLUME 10.5 fl (7.0-11.0); MONO # 0.5 (0.1-0.6); MONO % 5.2 % (1.0-6.0); RBC 3.73 10^6/uL (3.5-6.1); RED CELL DISTRIBUTION WIDTH 15.1 % (11.5-14.5); WHITE BLOOD COUNT 9.4 10^3/uL (4.5-11.0)
[2018-10-06 14:25] LABS: URINE BILIRUBIN NEGATIVE (NEGATIVE); URINE BLOOD MODERATE (NEGATIVE); URINE GLUCOSE (UA) NEGATIVE (NEGATIVE); URINE LEUKOCYTE ESTERASE TRACE Leu/uL (NEGATIVE); URINE PROTEIN 100 mg/dL (<30 mg/dL); URINE UROBILINOGEN 0.2 E.U./dL (<1 E.U./dL)
[2018-10-06 14:26] LABS: URINE APPEARANCE SLIGHT-CLOUDY (CLEAR); URINE COLOR YELLOW (YELLOW)
--- NOTE | 2018-10-06 15:07 | CP.PCM.PN ---
<Gladis Peterson - Last Filed: 10/06/18 14:59> Subjective - Date & Time of Evaluation Date of Evaluation: 10/06/18 Time of Evaluation: 08:30 - Subjective Subjective: Gladis Peterson, PGY-1 Medicine Progress Note for Dr. Stephon Shaver: Pt was seen and examined this AM at bedside. Pt had 6 beats of Vtach overnight, cardiology was informed this AM. She was switched from dobutamine to primacor per cardio. She states that she still feels weak but is less shaky than she was yesterday. She admits to tolerating her diet with no associated n/v. She is denying any fevers, chills, chest pain, palpitations, cough, numbness, tingling, dysuria or hematuria. She states she is still having some SOB, but is improved from yesterday. Objective - Vital Signs/Intake and Output Vital Signs (last 24 hours): Temp Pulse Resp BP Pulse Ox 98.1 F 96 H 18 99/56 L 96 10/06/18 12:00 10/06/18 14:00 10/06/18 12:00 10/06/18 13:21 10/05/18 16:20 Intake and Output: 10/06/18 10/06/18 06:59 18:59 Intake Total 720 100 Output Total 1250 Balance -530 100 - Medications Medications: Current Medications Acetaminophen (Tylenol 325mg Tab) 650 mg PO Q6H PRN PRN Reason: Pain, moderate (4-7) Last Admin: 10/03/18 07:42 Dose: 650 mg Albuterol/Ipratropium (Duoneb 3 Mg/0.5 Mg (3 Ml) Ud) 3 ml IH [id number] [facility] Last Admin: 10/06/18 10:54 Dose: 3 ml Amlodipine Besylate (Norvasc) 5 mg PO DAILY [facility] Last Admin: 10/06/18 10:15 Dose: 5 mg Ascorbic Acid (Vitamin C 500 Mg Tab) 500 mg PO DAILY [facility] Last Admin: 10/06/18 10:14 Dose: 500 mg Aspirin (Ecotrin) 81 mg PO 0800 [facility] Last Admin: 10/06/18 08:03 Dose: 81 mg Atorvastatin Calcium (Lipitor) 10 mg PO DIN [facility] Last Admin: 10/05/18 18:08 Dose: 10 mg Bacitracin (Bacitracin) 1 ea TOP BID [facility] Last Admin: 10/06/18 10:14 Dose: 1 ea Calcitriol (Rocaltrol) 0.25 mcg PO MWF [facility] Last Admin: 10/04/18 10:32 Dose: 0.25 mcg Calcium Carbonate (Oscal) 500 mg PO DAILY [facility] Last Admin: 10/06/18 10:14 Dose: 500 mg Cholecalciferol (Vitamin D) 1,000 intlu PO DAILY [facility] Last Admin: 10/06/18 10:15 Dose: 1,000 intlu Cyanocobalamin (Vitamin B12 1000 Mcg Tab) 1,000 mcg PO BID [facility] Last Admin: 10/06/18 10:14 Dose: 1,000 mcg Furosemide (Lasix) 40 mg IVP Q12 [facility] Last Admin: 10/06/18 10:13 Dose: 40 mg Gabapentin (Neurontin) 100 mg PO TID [facility]; Protocol Last Admin: 10/06/18 13:21 Dose: 100 mg Guaifenesin (Robitussin) 200 mg PO Q4H PRN PRN Reason: Cough and congestion Last Admin: 09/30/18 17:39 Dose: 200 mg Guaifenesin (Mucinex La) 600 mg PO BID [facility] Last Admin: 10/06/18 10:15 Dose: 600 mg Milrinone Lactate/Dextrose (Primacor 20mg/100ml D5w) 100 mls @ 8.879 mls/hr IV .[id number] PRN; Protocol PRN Reason: TITRATE PER MD ORDER Last Admin: 10/06/18 13:21 Dose: 0.375 mcg/kg/min, 8.879 mls/hr Insulin Human Lispro (Humalog) 4 units SC AC [facility] Last Admin: 10/06/18 12:34 Dose: 4 units Insulin Human Regular (Humulin R Low) 0 units SC ACHS [facility]; Protocol Last Admin: 10/06/18 12:33 Dose: 1 unit Isosorbide Mononitrate (Imdur) 60 mg PO 0600 [facility] Last Admin: 10/06/18 05:28 Dose: 60 mg Lisinopril (Zestril) 10 mg PO DAILY [facility] Last Admin: 10/06/18 10:14 Dose: 10 mg Metoprolol Tartrate (Lopressor) 100 mg PO BRKDIN [facility] Last Admin: 10/06/18 08:02 Dose: 100 mg Nystatin (Nystop Topical Powder) 0 gm TOP TID [facility] Last Admin: 10/06/18 10:30 Dose: 1 applic Primidone (Mysoline) 50 mg PO HS [facility] Last Admin: 10/05/18 21:54 Dose: 50 mg - Labs Labs: 10/06/18 10:00 10/06/18 08:18 - Constitutional Appears: Non-toxic, No Acute Distress, Chronically Ill - Head Exam Head Exam: ATRAUMATIC, NORMAL INSPECTION, NORMOCEPHALIC - Eye Exam Eye Exam: EOMI, Normal appearance, PERRL - Respiratory Exam Respiratory Exam: Rhonchi (diffusely present in all lung yang b/l, improved from yesterdays exam), NORMAL BREATHING PATTERN. absent: Accessory Muscle Use, Decreased Breath Sounds, Rales, Wheezes, Respiratory Distress, Stridor - Cardiovascular Exam Cardiovascular Exam: RRR, +S1, +S2. absent: Gallop, Rubs - GI/Abdominal Exam GI & Abdominal Exam: Soft, Tenderness, Normal Bowel Sounds. absent: Firm, Guarding, Rigid Additional comments: illiostomy pink, patent, productive, mild herniation noted. Fecal material noted in bag, output and air note - Extremities Exam Additional comments: patient has history of L 1st and 2nd transmetatarsal amputation - Back Exam Back Exam: NORMAL INSPECTION. absent: CVA tenderness (L), CVA tenderness (R) - Neurological Exam Neurological Exam: Alert, Awake, Oriented x3 - Psychiatric Exam Psychiatric exam: Normal Affect, Normal Mood - Skin Skin Exam: Dry, Normal Color, Warm Assessment and Plan - Assessment and Plan (Free Text) Assessment: Pt is a 73 yo F with pmhx of CAD s/p CABG, T2DM, CHF s/p AICD placement, IDDM, neuropathy, PVD, HTN, HLD, ileostomy, chronic hip and knee pain who presents to [facility] for b/l LE weakness and pain. B/l LE venous doppler was negative for DVT bilaterally. Pt was also noted to have hyperkalemia and VALE on CKD on initial lab results. Patient with PICC line since patient's port was removed. Noble still in place, no hematuria noted in bag. Pt switched to primacor from dobutamine per cardio. Plan: 1. HFrEF s/p AICD, EF 25% - Pt on Primacor - Pt noted to have 6 beats of Vtach on tele overnight, cardio called and notified - Lasix 40 IV BID - Continue home meds: Lisinopril 10mg PO daily Lopressor 100mg PO hs Imdur 60mg PO 0600 - CXR 09/29/18: Mild pulmonary venous congestive changes, bibasilar atelectasis, and small effusions 2. Hyperkalemia 2/2 pre-existing CKD, Resolved - Will continue to monitor 3. VALE on CKD stage 4, improved - Creatinine improved Cr=1.9 - Likely due to lasix - Avoid nephrotoxic meds 4. Urinary retention s/p noble likely 2/2 UTI, resolved - Patient had hematuria - Likely due to traumatic noble insertion - ID consulted (Dr. Coto) - recs appreciated - Urology consulted (Dr. Borges) - recs appreciated * Recommends Patient to go to rehab with noble in place * Once Patient is able to ambulate to bathroom can try voiding trial * Urine Cx should be addressed prior to voiding trial - Urine cx + for E. Faecalis - Monitor 5. History of CAD s/p CABG: - Continue home ASA, imdur, lopressor 6. Hx of HLD: - Continue home lipitor 7. History of IDDM: - ISS - [id number] - Accu checks ACHS - Hypoglycemia protocol 8. Hx of essential tremor: - Cont home primidone 9. Hx of neuropathy: - Pt admitted for b/l leg weakness and gait abnormality - Cont gabapentin - Will need BROOK upon d/c 10. PPX: DVT: Heparin SC Patient is DNR/DNI at this time. Patient seen and case discussed in detail with Dr. Stephon Peterson DO Internal Medicine PGY-1 <Melissa Shaver R - Last Filed: 10/07/18 21:34> Objective - Vital Signs/Intake and Output Vital Signs (last 24 hours): Temp Pulse Resp BP Pulse Ox 98.1 F 100 H 18 175/91 H 98 10/07/18 17:37 10/07/18 18:00 10/07/18 17:37 10/07/18 17:37 10/07/18 00:01 Intake and Output: 12/10/18 12/11/18 18:59 06:59 Intake Total 1140 Output Total 1400 Balance -260 - Medications Medications: Current Medications Acetaminophen (Tylenol 325mg Tab) 650 mg PO Q6H PRN PRN Reason: Pain, Mild (1-3) Albuterol/Ipratropium (Duoneb 3 Mg/0.5 Mg (3 Ml) Ud) 3 ml IH [id number] [facility] Last Admin: 10/07/18 11:52 Dose: 3 ml Amlodipine Besylate (Norvasc) 5 mg PO DAILY [facility] Last Admin: 10/07/18 09:36 Dose: 5 mg Ascorbic Acid (Vitamin C 500 Mg Tab) 500 mg PO DAILY [facility] Last Admin: 10/07/18 09:36 Dose: 500 mg Aspirin (Ecotrin) 81 mg PO 0800 [facility] Last Admin: 10/07/18 07:59 Dose: 81 mg Atorvastatin Calcium (Lipitor) 10 mg PO DIN [facility] Last Admin: 10/07/18 16:39 Dose: 10 mg Bacitracin (Bacitracin) 1 ea TOP BID [facility] Last Admin: 10/07/18 18:28 Dose: 1 ea Calcitriol (Rocaltrol) 0.25 mcg PO MWF [facility] Last Admin: 10/07/18 09:36 Dose: 0.25 mcg Calcium Carbonate (Oscal) 500 mg PO DAILY [facility] Last Admin: 10/07/18 09:36 Dose: 500 mg Cholecalciferol (Vitamin D) 1,000 intlu PO DAILY [facility] Last Admin: 10/07/18 09:36 Dose: 1,000 intlu Cyanocobalamin (Vitamin B12 1000 Mcg Tab) 1,000 mcg PO BID [facility] Last Admin: 10/07/18 18:29 Dose: 1,000 mcg Furosemide (Lasix) 40 mg IVP Q12 [facility] Last Admin: 10/07/18 09:37 Dose: 40 mg Gabapentin (Neurontin) 200 mg PO BID [facility]; Protocol Last Admin: 10/07/18 18:27 Dose: 200 mg Guaifenesin (Robitussin) 200 mg PO Q4H PRN PRN Reason: Cough and congestion Last Admin: 09/30/18 17:39 Dose: 200 mg Guaifenesin (Mucinex La) 600 mg PO BID [facility] Last Admin: 10/07/18 18:28 Dose: 600 mg Dobutamine HCl/Dextrose (Dobutamine/Dextrose 5% 500mg/250ml) 500 mg in 250 mls @ 12.193 mls/hr IV .[id number] PRN; Protocol PRN Reason: TITRATE PER PROTOCOL Last Admin: 10/07/18 09:53 Dose: 5 mcg/kg/min, 12.193 mls/hr Insulin Human Lispro (Humalog) 4 units SC AC [facility] Last Admin: 10/07/18 18:32 Dose: 4 units Insulin Human Regular (Humulin R Low) 0 units SC ACHS [facility]; Protocol Last Admin: 10/07/18 16:39 Dose: 3 unit Isosorbide Mononitrate (Imdur) 60 mg PO 0600 [facility] Last Admin: 10/07/18 05:23 Dose: 60 mg Lidocaine (Lidoderm) 1 ea TD DAILY [facility] Last Admin: 10/07/18 14:34 Dose: 1 ea Lisinopril (Zestril) 10 mg PO DAILY [facility] Last Admin: 10/07/18 09:36 Dose: 10 mg Metoprolol Tartrate (Lopressor) 100 mg PO BRKDIN [facility] Last Admin: 10/07/18 16:39 Dose: 100 mg Nystatin (Nystop Topical Powder) 0 gm TOP TID [facility] Last Admin: 10/07/18 18:25 Dose: 1 applic Oxycodone/Acetaminophen (Percocet 5/325 Mg Tab) 1 tab PO Q6H PRN PRN Reason: Pain, moderate (4-7) Stop: 10/10/18 16:12 Last Admin: 10/07/18 16:39 Dose: 1 tab Primidone (Mysoline) 50 mg PO HS [facility] Last Admin: 10/06/18 21:29 Dose: 50 mg - Labs Labs: 10/07/18 06:00 10/07/18 06:00 Attending/Attestation - Attestation I have personally seen and examined this patient.: Yes I have fully participated in the care of the patient.: Yes I have reviewed all pertinent clinical information, including history, physical exam and plan: Yes Notes (Text): Patient seen and examined by me with resident at 9:20 AM on 10/06/18. Case including HPI, physical exam, and assessment and plan discussed with resident. Agree with above with following additions/corrections. Patient is a 73-year-old female with past medical history significant for coronary artery disease status post CABG, insulin-dependent type 2 diabetes, chronic systolic CHF status post AICD placement, neuropathy, peripheral vascular disease, hypertension, hyperlipidemia, ileostomy, and chronic hip and knee pain that presented to the emergency room with bilateral lower extremity weakness and pain. Patient states she is feeling a little better today. Still feels weak. Tremors improved this morning. No chest pain or shortness of breath. No fevers or chills. No headaches or dizziness. No nausea, vomiting, or abdominal pain. No dysuria or discomfort at site of noble catheter. Physical exam: General: Awake and alert sitting up in bed in no acute distress HEENT: Normocephalic, atraumatic. Extraocular muscles intact, pupils equal and reactive, no scleral icterus. Oropharynx is pink and moist. Neck is supple. Cardiovascular: Normal rhythm. Normal S1 and S2. No murmurs, rubs, or gallops appreciated Pulmonary: Normal respiratory effort. Improved coarse breath sounds throughout. No rales or wheezing appreciated. Gastrointestinal: Soft, nondistended. Nontender. Positive bowel sounds all 4 quadrants. No guarding. Musculoskeletal: Moves all extremities. No calf tenderness. Bilateral lower extremity chronic edema and venous stasis color changes. Central nervous system: AAOx3 Dermatologic: Skin warm and dry. Assessment and plan: Patient is a 73-year-old female with past medical history significant for coronary artery disease status post CABG, insulin-dependent type 2 diabetes, chronic systolic CHF status post AICD placement, neuropathy, peripheral vascular disease, hypertension, hyperlipidemia, ileostomy, and chronic hip and knee pain that presented to the emergency room with bilateral lower extremity weakness and pain. 1. Acute on chronic systolic CHF exacerbation. End-stage dilated cardiomyopathy. Cardiology following, recommendations appreciated. Patient switched to milrinone drip as patient was tachycardic. 6 beats of vtach overnight, cardiology aware. Chest x-ray per radiologistshowed severe cardiomegaly with mild vascular congestion. Continue with IV Lasix. Continue with Lopressor and lisinopril. Continue to monitor ins and outs. Continue to monitor daily weights. 2. Enterococcus faecalis UTI. Hematuria. Continue vancomycin dosing as per ID. Hematuria resolved. Patient to continue with noble catheter until able to get up and move around per urologist. Urology recommendations appreciated. ID recommendations appreciated. 3. VALE on CKD. Creatinine stabilized. Patient on Lasix. Continue to monitor. 4. Hyperkalemia. Resolved. Continue to monitor. 5. CAD s/p CABG. Continue aspirin, Lipitor, and Lopressor. Cardiology following, recommendations appreciated. 6. Insulin-dependent type 2 diabetes. Continue insulin sliding scale. Continue Humalog 4 units subcutaneous before meals. Continue to monitor Accu-Cheks. 7. Essential hypertension. Continue Lopressor, lisinopril, Norvasc, and Imdur. 8. Hyperlipidemia. Continue Lipitor. 9. Neuropathy. Leg weakness. Gait instability. Continue gabapentin. Patient will need to go to subacute rehabilitation. Continue physical therapy. 10. T12 compression fracture. Age indeterminate. IR recommendations appreciated. Continue physical therapy. No surgical intervention 11. Diarrhea. Stool cultures negative. Stool for c-diff negative. Continue to monitor. 12. Essential tremor. Continue home Primidone 13. Advanced directive. Patient has a POLST and is DNR/DNI. Case was discussed in detail with the patient and patient's nurse regarding current diagnosis and treatment plan. All questions answered.
[2018-10-06 15:17] LABS: URINE EPITHELIAL CELLS 0 - 2 /hpf (0-5)
--- NOTE | 2018-10-06 15:51 | PN ---
DATE: 10/06/2018 SUBJECTIVE: Ms. Suma Min was seen in room 268 bed 1. She states she still has some shortness of breath and no fevers, no chills and some cough. PHYSICAL EXAMINATION: VITAL SIGNS: Temperature is 99, blood pressure is 117/50, respiratory rate of 18, heart rate of 104. HEENT: Unremarkable. NECK: Supple. LUNGS: Have decreased breath sounds. HEART: Normal S1, S2. ABDOMEN: Soft, nontender. LABORATORY DATA: Laboratory examination reveals a white count of 9.3, hemoglobin of 11. BUN of 52, creatinine of 2.1. Procalcitonin is noted and urinalysis is noted. Vancomycin random level is 12. Urine culture is Enterococcus faecalis. Repeat urine culture is Enterococcus faecalis and review of orders reveals the patient to be off of antibiotics. ASSESSMENT AND PLAN: Is a 73-year-old female known to me from previous admission, was admitted with hematuria secondary to urinary retention, enterococcus in the urine and with urinary tract infection, diabetes and aneurysm and the patient is on vancomycin day #5 today. We will give a dose of vancomycin today and order a vanco random level in a.m. Would complete 5-7 days of of intermittent vancomycin. Case discussed with cardiology. José Luis Trevino MD
[2018-10-07] MEDS: Albuterol-Ipratrop 3 mg / 0.5 (3 ml) UD IH SCH ×7 (00:08→23:40)
[2018-10-07] MEDS: Milrinone 20mg/100ml D5W 100 ML IV PRN (00:21)
[2018-10-07] MEDS ORDERED: Oxycodone/Acetaminophen 5/325 mg Tab PO STA (00:40)
[2018-10-07 00:54] VITALS: O2SAT 98
[2018-10-07 06:51] LABS: BASO # 0.02 K/mm3 (0.0-2.0); BASO % 0.2 % (0.0-3.0); EOS # 0.7 (0.0-0.7); EOS % 8.6 % (1.5-5.0); GRAN # 5.71 (1.4-6.5); GRAN % 70.1 % (50.0-68.0); HEMOGLOBIN 10.7 g/dL (12.0-16.0); LYMPH # 1.2 (1.2-3.4); LYMPH % 14.8 % (22.0-35.0); MEAN CELL VOLUME 94.1 fl (80.0-105.0); MEAN CORPUSCULAR HEMOGLOBIN 28.7 pg (25.0-35.0); MEAN CORPUSCULAR HGB CONC 30.5 g/dl (31.0-37.0); MEAN PLATELET VOLUME 10.6 fl (7.0-11.0); MONO # 0.5 (0.1-0.6); MONO % 6.3 % (1.0-6.0); RBC 3.73 10^6/uL (3.5-6.1); RED CELL DISTRIBUTION WIDTH 15.1 % (11.5-14.5); WHITE BLOOD COUNT 8.2 10^3/uL (4.5-11.0)
[2018-10-07 07:00] LABS: ALB/GLOB RATIO 0.9 (1.1-1.8); ALBUMIN 2.5 g/dL (3.0-4.8)
[2018-10-07] MEDS: Insulin Reg-LOW-Coverage SC SCH ×4 (07:59→23:06)
[2018-10-07] MEDS: Insulin Lispro 1 UNITS/0.01 ML SC SCH ×3 (08:00→18:32)
[2018-10-07] MEDS ORDERED: Vancomycin 1gm in NS 250ml 1 GM/250 ML BAG IVPB STA (08:30)
--- NOTE | 2018-10-07 08:30 | PN ---
DATE: 10/05/2018 LOCATION: The patient in room 268, bed 1. SUBJECTIVE: The patient denies any chest pain or palpitations. Her breathing is getting better, since we changed the patient to milrinone drip and placed on Dobutrex. Her tachycardia has got better. The patient has few crackles, found with some wheezing. We will continue aspirin, isosorbide mononitrate, Lasix 40 IV every 12 hour, atorvastatin, metoprolol 100 mg p.o. b.i.d., Mysoline 50 mg at bedtime, Lisinopril 10 mg daily, calcium carbonate 500 mg p.o. daily, amlodipine 5 mg daily, gabapentin 100 mg t.i.d., and ____ detailed in the note already. From tomorrow, Dr. Vidales will follow. This progress note was return on behalf of Dr. Vidales, whom we are covering. Sofía Flores MD
[2018-10-07] MEDS ORDERED: DiphenhydrAMINE 50 mg/ml Inj IVP STA (09:31)
--- NOTE | 2018-10-07 09:34 | CP.PCM.PN ---
<Geneva Mckeon - Last Filed: 10/07/18 18:42> Subjective - Date & Time of Evaluation Date of Evaluation: 10/07/18 Time of Evaluation: 10:17 - Subjective Subjective: PGY1 Medicine Progress Note for Dr. Parada Patient was seen and evaluated at bedside this morning. No V-tach events as of this morning. Patient is complaining of bilateral arm pruritus. Patient is able to tolerate breakfast without issue. Patient able to get into chair with help of PT. 12 Point ROS is otherwise unremarkable. Objective - Vital Signs/Intake and Output Vital Signs (last 24 hours): Temp Pulse Resp BP Pulse Ox 98.3 F 92 H 18 126/61 98 10/07/18 06:00 10/07/18 07:59 10/07/18 06:00 10/07/18 06:00 10/07/18 00:01 Intake and Output: 10/07/18 10/07/18 06:59 18:59 Intake Total 1120 Output Total 1600 Balance -480 - Medications Medications: Current Medications Acetaminophen (Tylenol 325mg Tab) 650 mg PO Q6H PRN PRN Reason: Pain, moderate (4-7) Last Admin: 10/03/18 07:42 Dose: 650 mg Albuterol/Ipratropium (Duoneb 3 Mg/0.5 Mg (3 Ml) Ud) 3 ml IH [id number] [facility] Last Admin: 10/07/18 07:44 Dose: 3 ml Amlodipine Besylate (Norvasc) 5 mg PO DAILY [facility] Last Admin: 10/06/18 10:15 Dose: 5 mg Ascorbic Acid (Vitamin C 500 Mg Tab) 500 mg PO DAILY [facility] Last Admin: 10/06/18 10:14 Dose: 500 mg Aspirin (Ecotrin) 81 mg PO 0800 [facility] Last Admin: 10/07/18 07:59 Dose: 81 mg Atorvastatin Calcium (Lipitor) 10 mg PO DIN [facility] Last Admin: 10/06/18 17:02 Dose: 10 mg Bacitracin (Bacitracin) 1 ea TOP BID [facility] Last Admin: 10/06/18 17:02 Dose: 1 ea Calcitriol (Rocaltrol) 0.25 mcg PO MWF [facility] Last Admin: 10/04/18 10:32 Dose: 0.25 mcg Calcium Carbonate (Oscal) 500 mg PO DAILY [facility] Last Admin: 10/06/18 10:14 Dose: 500 mg Cholecalciferol (Vitamin D) 1,000 intlu PO DAILY [facility] Last Admin: 10/06/18 10:15 Dose: 1,000 intlu Cyanocobalamin (Vitamin B12 1000 Mcg Tab) 1,000 mcg PO BID [facility] Last Admin: 10/06/18 17:02 Dose: 1,000 mcg Diphenhydramine HCl (Benadryl) 25 mg IVP STAT [facility] Stop: 10/07/18 09:32 Furosemide (Lasix) 40 mg IVP Q12 [facility] Last Admin: 10/06/18 21:25 Dose: 40 mg Gabapentin (Neurontin) 100 mg PO TID [facility]; Protocol Last Admin: 10/06/18 17:03 Dose: 100 mg Guaifenesin (Robitussin) 200 mg PO Q4H PRN PRN Reason: Cough and congestion Last Admin: 09/30/18 17:39 Dose: 200 mg Guaifenesin (Mucinex La) 600 mg PO BID [facility] Last Admin: 10/06/18 17:03 Dose: 600 mg Hydrocortisone Sodium Succinate (Solu-Cortef) 200 mg IVP STAT STA Stop: 10/07/18 09:32 Dobutamine HCl/Dextrose (Dobutamine/Dextrose 5% 500mg/250ml) 500 mg in 250 mls @ 12.193 mls/hr IV .[id number] PRN; Protocol PRN Reason: TITRATE PER PROTOCOL Insulin Human Lispro (Humalog) 4 units SC AC [facility] Last Admin: 10/07/18 08:00 Dose: 4 units Insulin Human Regular (Humulin R Low) 0 units SC ACHS [facility]; Protocol Last Admin: 10/07/18 07:59 Dose: 2 unit Isosorbide Mononitrate (Imdur) 60 mg PO 0600 [facility] Last Admin: 10/07/18 05:23 Dose: 60 mg Lisinopril (Zestril) 10 mg PO DAILY [facility] Last Admin: 10/06/18 10:14 Dose: 10 mg Metoprolol Tartrate (Lopressor) 100 mg PO BRKDIN [facility] Last Admin: 10/07/18 07:59 Dose: 100 mg Nystatin (Nystop Topical Powder) 0 gm TOP TID [facility] Last Admin: 10/06/18 19:10 Dose: 2 applic Primidone (Mysoline) 50 mg PO HS [facility] Last Admin: 10/06/18 21:29 Dose: 50 mg - Labs Labs: 10/07/18 06:00 10/07/18 06:00 - Additional Findings Additional findings: - Constitutional Appears: Non-toxic, No Acute Distress, Chronically Ill - Head Exam Head Exam: ATRAUMATIC, NORMAL INSPECTION, NORMOCEPHALIC - Eye Exam Eye Exam: EOMI, Normal appearance, PERRL - Respiratory Exam Respiratory Exam: Rhonchi (diffusely present in all lung yang b/l, improved from yesterdays exam), NORMAL BREATHING PATTERN. absent: Accessory Muscle Use, Decreased Breath Sounds, Rales, Wheezes, Respiratory Distress, Stridor - Cardiovascular Exam Cardiovascular Exam: RRR, +S1, +S2. absent: Gallop, Rubs - GI/Abdominal Exam GI & Abdominal Exam: Soft, Tenderness, Normal Bowel Sounds. absent: Firm, Guarding, Rigid Additional comments: illiostomy pink, patent, productive, mild herniation noted. Fecal material noted in bag, output and air note - Extremities Exam Additional comments: Patient's upper extremity with erythema and some excoriations bilaterally Patient has history of L 1st and 2nd transmetatarsal amputation - Back Exam Back Exam: NORMAL INSPECTION. absent: CVA tenderness (L), CVA tenderness (R) - Neurological Exam Neurological Exam: Alert, Awake, Oriented x3 - Psychiatric Exam Psychiatric exam: Normal Affect, Normal Mood - Skin Skin Exam: Dry, Normal Color, Warm Assessment and Plan - Assessment and Plan (Free Text) Assessment: Pt is a 73 yo F with pmhx of CAD s/p CABG, T2DM, CHF s/p AICD placement, IDDM, neuropathy, PVD, HTN, HLD, ileostomy, chronic hip and knee pain who presents to [facility] for b/l LE weakness and pain. B/l LE venous doppler was negative for DVT bilaterally. Pt was also noted to have hyperkalemia and VALE on CKD on initial lab results. Patient with PICC line since patient's port was removed. Noble still in place, no hematuria noted in bag. Patient was switched back to Dobutamine drip, and Primacor was discontinued, per Cardiology recommendation. Plan: HFrEF s/p AICD, EF 25% - Patient on Dobutamine drip; Primacor discontinued today - on 10/05, Patient have 6 beats of V-tach on telemetry overnight, cardio called and notified - Continue Lasix 40 IV BID - Continue home meds: Lisinopril 10mg PO daily Lopressor 100mg PO hs Imdur 60mg PO 0600 - CXR 09/29/18: Mild pulmonary venous congestive changes, bibasilar atelectasis, and small effusions Urinary retention s/p noble likely 2/2 UTI, resolved - Patient had hematuria - Likely due to traumatic noble insertion - ID consulted (Dr. Coto) - recs appreciated - Urology consulted (Dr. Borges) - recommendations appreciated * Recommends Patient to go to rehab with noble in place * Once Patient is able to ambulate to bathroom can try voiding trial * Urine Cx should be addressed prior to voiding trial * Patient was on Vancomycin x4 days; discontinued on 10/07 due to possible side effect (rash) - Urine Cx + for E. Faecalis - Monitor Upper Extremity Rash Possibly Secondary to antibiotics (Vancomycin) - Vancomycin discontinued - Patient has pruritus in bilateral forearms - Benadryl 25mg IVP STAT - Hydrocortisone 200mg IVP STAT - Monitor Chronic Low Back Pain 2/2 T12 Compression Fracture - Dr. Paddy Kapadia consulted; recommendations appreciated - Appropriate pain management VALE on CKD stage 4 - Cr=2.1 - Likely due to lasix - Avoid nephrotoxic meds Hyperkalemia 2/2 pre-existing CKD, Resolved - Will continue to monitor CMP History of CAD s/p CABG - Continue home ASA, imdur, lopressor History of HLD - Continue home lipitor History of IDDM - ISS - [id number]=0.8 - Accu checks ACHS - Hypoglycemia protocol History of Essential Tremor - Continue home primidone History of neuropathy - Patientt admitted for b/l leg weakness and gait abnormality - Continue gabapentin - Per PT recommendations; Patient will need BROOK upon discharge PPX: DVT: Heparin SC Patient is DNR/DNI at this time. Patient seen and case discussed in detail with Dr. Tal Mckeon PGY1 <Gerry Parada - Last Filed: 10/08/18 18:39> Objective - Vital Signs/Intake and Output Vital Signs (last 24 hours): Temp Pulse Resp BP Pulse Ox 98.4 F 83 20 128/68 98 10/08/18 18:00 10/08/18 18:00 10/08/18 18:00 10/08/18 18:00 10/08/18 06:00 Intake and Output: 10/08/18 10/08/18 06:59 18:59 Intake Total 1534 120 Output Total 1400 1100 Balance 134 -980 - Medications Medications: Current Medications Acetaminophen (Tylenol 325mg Tab) 650 mg PO Q6H PRN PRN Reason: Pain, Mild (1-3) Albuterol/Ipratropium (Duoneb 3 Mg/0.5 Mg (3 Ml) Ud) 3 ml IH [id number] [facility] Last Admin: 10/08/18 14:14 Dose: 3 ml Amlodipine Besylate (Norvasc) 5 mg PO DAILY [facility] Last Admin: 10/08/18 12:38 Dose: 5 mg Ascorbic Acid (Vitamin C 500 Mg Tab) 500 mg PO DAILY [facility] Last Admin: 10/08/18 12:38 Dose: 500 mg Aspirin (Ecotrin) 81 mg PO 0800 [facility] Last Admin: 10/08/18 10:32 Dose: 81 mg Atorvastatin Calcium (Lipitor) 10 mg PO DIN [facility] Last Admin: 10/08/18 17:27 Dose: 10 mg Bacitracin (Bacitracin) 1 ea TOP BID [facility] Last Admin: 10/08/18 17:27 Dose: 1 ea Calcitriol (Rocaltrol) 0.25 mcg PO MWF [facility] Last Admin: 10/07/18 09:36 Dose: 0.25 mcg Calcium Carbonate (Oscal) 500 mg PO DAILY [facility] Last Admin: 10/08/18 10:31 Dose: 500 mg Cholecalciferol (Vitamin D) 1,000 intlu PO DAILY [facility] Last Admin: 10/08/18 10:32 Dose: 1,000 intlu Cyanocobalamin (Vitamin B12 1000 Mcg Tab) 1,000 mcg PO BID [facility] Last Admin: 10/08/18 17:27 Dose: 1,000 mcg Furosemide (Lasix) 40 mg PO BID [facility] Last Admin: 10/08/18 17:27 Dose: 40 mg Gabapentin (Neurontin) 200 mg PO BID [facility]; Protocol Last Admin: 10/08/18 17:27 Dose: 200 mg Guaifenesin (Robitussin) 200 mg PO Q4H PRN PRN Reason: Cough and congestion Last Admin: 10/08/18 12:42 Dose: 200 mg Guaifenesin (Mucinex La) 600 mg PO BID [facility] Last Admin: 10/08/18 17:27 Dose: 600 mg Dobutamine HCl/Dextrose (Dobutamine/Dextrose 5% 500mg/250ml) 500 mg in 250 mls @ 12.193 mls/hr IV .[id number] PRN; Protocol PRN Reason: TITRATE PER PROTOCOL Last Admin: 10/08/18 09:15 Dose: 5 mcg/kg/min, 12.193 mls/hr Insulin Human Lispro (Humalog) 4 units SC AC [facility] Last Admin: 10/08/18 17:20 Dose: Not Given Insulin Human Regular (Humulin R Low) 0 units SC ACHS [facility]; Protocol Last Admin: 10/08/18 17:20 Dose: Not Given Isosorbide Mononitrate (Imdur) 60 mg PO 0600 [facility] Last Admin: 10/08/18 05:30 Dose: 60 mg Lidocaine (Lidoderm) 1 ea TD DAILY [facility] Last Admin: 10/08/18 10:33 Dose: 1 ea Lisinopril (Zestril) 10 mg PO DAILY [facility] Last Admin: 10/08/18 10:32 Dose: 10 mg Metoprolol Tartrate (Lopressor) 100 mg PO BRKDIN [facility] Last Admin: 10/08/18 17:27 Dose: 100 mg Nystatin (Nystop Topical Powder) 0 gm TOP TID [facility] Last Admin: 10/08/18 17:28 Dose: 1 applic Oxycodone/Acetaminophen (Percocet 5/325 Mg Tab) 1 tab PO Q6H PRN PRN Reason: Pain, moderate (4-7) Stop: 10/10/18 16:12 Last Admin: 10/08/18 05:30 Dose: 1 tab Primidone (Mysoline) 50 mg PO HS [facility] Last Admin: 10/07/18 21:51 Dose: 50 mg - Labs Labs: 10/08/18 05:57 10/08/18 05:57 Attending/Attestation - Attestation I have personally seen and examined this patient.: Yes I have fully participated in the care of the patient.: Yes I have reviewed all pertinent clinical information, including history, physical exam and plan: Yes Notes (Text): 10/08/18 18:35 Attending note; Patient seen and examined with resident. Case discussed with cardiology in detail. Patient denies any chest pain, shortness of breath. Complaining of itching. Milrinone stopped. Started on dobutamine again. Denies any shortness of breath or cough. Patient is a 73-year-old female with past medical history significant for coronary artery disease status post CABG, insulin-dependent type 2 diabetes, chronic systolic CHF status post AICD placement, neuropathy, peripheral vascular disease, hypertension, hyperlipidemia, ileostomy, and chronic hip and knee pain that presented to the emergency room with bilateral lower extremity weakness and pain. 1. Acute on chronic systolic CHF exacerbation. End-stage dilated cardiomyopathy. Cardiology recommendations appreciated. No sustained V. tach. Milrinone stopped secondary to possible minor allergic reaction. Started on dobutamine. Benadryl on IV steroid given. Chest x-ray showed severe cardiomegaly with mild vascular congestion. Continue with IV Lasix. Continue with Lopressor and lisinopril. 2. Enterococcus faecalis UTI. resolved. Case discussed with ID in detail. Treated with vancomycin. Currently patient is afebrile and nontoxic. Noble catheter in place. Follow-up urology DR. Borges as outpatient. 3. VALE on CKD. Creatinine stabilized. Patient on Lasix.Continue to monitor. 4. Hyperkalemia. Resolved. Continue to monitor. 5. CAD s/p CABG. Continue aspirin, Lipitor, and Lopressor. 6. Insulin-dependent type 2 diabetes. Continue insulin sliding scale. Continue Humalog 4 units subcutaneous before meals. 7. Essential hypertension. Continue Lopressor, lisinopril, Norvasc, and Imdur. 8. Hyperlipidemia. Continue Lipitor. 9. Neuropathy. Leg weakness. Gait instability. Continue gabapentin. Patient will need to go to subacute rehabilitation. Continue physical therapy. 10. T12 compression fracture. Age indeterminate. IR recommendations appreciated. Continue physical therapy. No surgical intervention needed. Neurology evaluation requested. Advanced directive. Patient has a POLST and is DNR/DNI. case discussed with cardiology in detail. Possible transfer to rehabilitation tomorrow. Case discussed with manager of case in detail. Long-term prognosis is poor. Upon discharge the patient will follow up with PMD .
[2018-10-07] MEDS: Cholecalciferol 1,000 INTLU TAB PO SCH (09:36)
[2018-10-07] MEDS: Bacitracin 500 Units/gm Oint Foilpak UD TOP SCH ×2 (09:36→18:28)
[2018-10-07] MEDS: guaiFENesin 600 mg ER Tab PO SCH ×2 (09:36→18:28)
[2018-10-07] MEDS: DOBUTamine 500mg/250ml D5W 500 MG/250 ML BAG IV PRN (09:53)
[2018-10-07] MEDS: Nystatin 100,000 Units/gm Topical Pow(15 gm) TOP SCH ×3 (10:25→18:25)
--- NOTE | 2018-10-07 10:45 | PN ---
DATE: 10/07/2018 SUBJECTIVE: The patient is complaining of pruritus over the past 24 hours. Her dyspnea is stable on IV ionotropes. PHYSICAL EXAMINATION: VITAL SIGNS: Blood pressure 126/61, the heart rate is in the 90s. NECK: Negative JVD. LUNGS: Without rales. HEART: Normal S1, S2. EXTREMITIES: Without change. SKIN: Marked excoriations throughout. LABORATORY DATA: Glucose 225, BUN and creatinine 53 and 2.1, hemoglobin is 10.7. IMPRESSION: 1. Need to rule out allergic reaction to her any new medications. 2. Recurrent congestive heart failure. 3. Dilated cardiomyopathy. 4. Anemia. 5. Renal insufficiency. PLAN: Given these findings, we will stop her vancomycin, we will change her back to IV dobutamine, steroids and Benadryl were given. Vinnie Vidales MD
--- NOTE | 2018-10-07 10:57 | CP.PCM.PN ---
Subjective - Date & Time of Evaluation Date of Evaluation: 10/07/18 Time of Evaluation: 10:25 - Subjective Subjective: Patient is having some itching, no fevers, no dysuria currently. Feels tired. Objective - Vital Signs/Intake and Output Vital Signs (last 24 hours): Temp Pulse Resp BP Pulse Ox 97.8 F 99 H 18 123/65 95 10/06/18 18:00 10/06/18 18:00 10/06/18 18:00 10/06/18 21:25 10/06/18 18:00 Intake and Output: 10/06/18 10/07/18 18:59 06:59 Intake Total 307 780 Output Total 900 Balance 307 -120 - Medications Medications: Current Medications Acetaminophen (Tylenol 325mg Tab) 650 mg PO Q6H PRN PRN Reason: Pain, moderate (4-7) Last Admin: 10/03/18 07:42 Dose: 650 mg Albuterol/Ipratropium (Duoneb 3 Mg/0.5 Mg (3 Ml) Ud) 3 ml IH [id number] [facility] Last Admin: 10/06/18 19:53 Dose: 3 ml Amlodipine Besylate (Norvasc) 5 mg PO DAILY [facility] Last Admin: 10/06/18 10:15 Dose: 5 mg Ascorbic Acid (Vitamin C 500 Mg Tab) 500 mg PO DAILY [facility] Last Admin: 10/06/18 10:14 Dose: 500 mg Aspirin (Ecotrin) 81 mg PO 0800 [facility] Last Admin: 10/06/18 08:03 Dose: 81 mg Atorvastatin Calcium (Lipitor) 10 mg PO DIN [facility] Last Admin: 10/06/18 17:02 Dose: 10 mg Bacitracin (Bacitracin) 1 ea TOP BID [facility] Last Admin: 10/06/18 17:02 Dose: 1 ea Calcitriol (Rocaltrol) 0.25 mcg PO MWF [facility] Last Admin: 10/04/18 10:32 Dose: 0.25 mcg Calcium Carbonate (Oscal) 500 mg PO DAILY [facility] Last Admin: 10/06/18 10:14 Dose: 500 mg Cholecalciferol (Vitamin D) 1,000 intlu PO DAILY [facility] Last Admin: 10/06/18 10:15 Dose: 1,000 intlu Cyanocobalamin (Vitamin B12 1000 Mcg Tab) 1,000 mcg PO BID [facility] Last Admin: 10/06/18 17:02 Dose: 1,000 mcg Furosemide (Lasix) 40 mg IVP Q12 [facility] Last Admin: 10/06/18 21:25 Dose: 40 mg Gabapentin (Neurontin) 100 mg PO TID [facility]; Protocol Last Admin: 10/06/18 17:03 Dose: 100 mg Guaifenesin (Robitussin) 200 mg PO Q4H PRN PRN Reason: Cough and congestion Last Admin: 09/30/18 17:39 Dose: 200 mg Guaifenesin (Mucinex La) 600 mg PO BID [facility] Last Admin: 10/06/18 17:03 Dose: 600 mg Milrinone Lactate/Dextrose (Primacor 20mg/100ml D5w) 100 mls @ 8.879 mls/hr IV .[id number] PRN; Protocol PRN Reason: TITRATE PER MD ORDER Last Admin: 10/06/18 13:21 Dose: 0.375 mcg/kg/min, 8.879 mls/hr Insulin Human Lispro (Humalog) 4 units SC AC [facility] Last Admin: 10/06/18 17:03 Dose: 4 units Insulin Human Regular (Humulin R Low) 0 units SC ACHS [facility]; Protocol Last Admin: 10/06/18 21:48 Dose: Not Given Isosorbide Mononitrate (Imdur) 60 mg PO 0600 [facility] Last Admin: 10/06/18 05:28 Dose: 60 mg Lisinopril (Zestril) 10 mg PO DAILY [facility] Last Admin: 10/06/18 10:14 Dose: 10 mg Metoprolol Tartrate (Lopressor) 100 mg PO BRKDIN [facility] Last Admin: 10/06/18 17:02 Dose: 100 mg Nystatin (Nystop Topical Powder) 0 gm TOP TID [facility] Last Admin: 10/06/18 19:10 Dose: 2 applic Primidone (Mysoline) 50 mg PO HS [facility] Last Admin: 10/06/18 21:29 Dose: 50 mg - Labs Labs: 10/06/18 10:00 10/06/18 08:18 - Constitutional Appears: Chronically Ill - Head Exam Head Exam: NORMAL INSPECTION - Respiratory Exam Respiratory Exam: Decreased Breath Sounds - Cardiovascular Exam Cardiovascular Exam: +S1, +S2 - GI/Abdominal Exam GI & Abdominal Exam: absent: Tenderness Assessment and Plan - Assessment and Plan (Free Text) Plan: Assessment hematuria and urinary retention R/O UTI with E. faecalis S/P left leg cellulitis as well as right sided community-acquired pneumonia S/P left foot 2nd digit skin and skin structure infection CAD S/P CABG abdominal aortic aneurysm S/P repair S/P cholecystectomy S/P pacemaker placement DM S/P left toe amputation Plan continue intermittent IV Vancomycin day 6 for 5-7 days - we can d/c antibiotics and observe follow up further Urology recommendations
[2018-10-07] MEDS: Lidocaine 5% Patch TD SCH (14:34)
--- NOTE | 2018-10-07 15:34 | CON ---
DATE: 10/07/2018 NEUROLOGY CONSULT CHIEF COMPLAINT: Back pain. CURRENT HISTORY OF PRESENT ILLNESS: This is a 73-year-old woman with history of coronary artery disease status post CABG, CHF status post AICD placement with ejection fraction of 25 percent, insulin-dependent diabetes, history of diabetic peripheral neuropathy, PVD status post amputation of the toes, hypertension, hyperlipidemia, ileostomy, chronic hip and knee pain who came in for bilateral lower extremity weakness and pain with a negative venous Doppler for DVT. He is known to have hyperkalemia and acute on chronic kidney injury, and the patient was switched back to dobutamine drip and Primacor was discontinued by Cardiology. She had urinary retention secondary to Jaeger likely secondary to UTI and had urine culture positive for Enterococcus faecalis on antibiotics. She was consulted for low back pain, which has evidence on the CAT scan of the dressed lumbar spine showing an old T12 compression fracture and severe degenerative disk disease throughout the lumbosacral area. She has evidence of severe diabetic peripheral neuropathy on examination, proprioception and difficulties which interferes in the balance and he is also deconditioned. We will adjust her gabapentin from 100 three times a day to 200 twice a day, and we will add a Lidoderm patch to lumbosacral area and we will recommend acute rehab. PAST MEDICAL HISTORY: As above. ALLERGIES: TO AMOXICILLIN-CLAVULANATE, DOXYCYCLINE, SHELLFISH . FAMILY HISTORY: Noncontributory. REVIEW OF SYSTEMS: A 14-point review of systems is negative except as per HPI. MEDICATIONS: Reviewed by nurses' reconciliation sheet. LABORATORY DATA: Sodium is 131, potassium 4.4, chloride 101, carbon dioxide 24, BUN of 52, creatinine 2.1, random glucose 225. Hemoglobin A1c is 66.8. PHYSICAL EXAMINATION: GENERAL: The patient is sitting up in bed, in no acute distress. VITAL SIGNS: Temperature 97.8, pulse rate of 87, blood pressure 136/85, respirations 20. HEENT: Head is atraumatic and normocephalic. PERRLA. Extraocular muscles intact. NECK: Supple. No JVD. No adenopathy noted. LUNGS: Clear to auscultation. No adventitious sounds. HEART: S1 and S2. Normal rate and rhythm. No murmurs, rubs or gallops. ABDOMEN: Soft, nontender and nondistended. Bowel sounds are present. EXTREMITIES: No clubbing. No cyanosis. Peripheral pulses 2+ felt bilaterally. NEUROLOGICAL: Patient is alert and oriented to person, place, month and year. Speech is fluent without any errors. Cranial nerves II through XII intact. Motor: Moves all extremities equally. Deconditioned atrophy upper and lower extremity muscles. Sensory: Decreased light touch to pinprick up to the calves bilaterally. Decreased vibration of the toes. DTRs are 2+ throughout on one of both knees but absent at the ankles. Coordination: [id number] intact. No dysmetria noted. Gait is deferred for now. MUSCULOSKELETAL: Has lumbosacral tightness. IMPRESSION: Low back pain secondary to degenerative disk disease, superimposed underlying musculoskeletal pain with underlying chronic T12 compression fracture. I do not think that with her multiple medical problems, kyphoplasty is the risk, therefore, we will defer more to physical therapy. In addition, we will add a Lidoderm patch and adjust her gabapentin dose. At this time, medical conditions with regards to her coronary artery disease and continue with home aspirin, Imdur and lisinopril and agree with Cardiology in regards to underlying dobutamine given that history of congestive heart failure and automatic implantable cardioverter-defibrillator with ejection fraction of 25 percent. RECOMMENDATIONS: Continue current present medical management and recommended rehab. Gabriel Thomason MD
[2018-10-07] MEDS: Oxycodone/Acetaminophen 5/325 mg Tab PO PRN (16:39)
[2018-10-08] MEDS: Albuterol-Ipratrop 3 mg / 0.5 (3 ml) UD IH SCH ×5 (02:30→19:45)
[2018-10-08] MEDS: Oxycodone/Acetaminophen 5/325 mg Tab PO PRN (05:30)
[2018-10-08 06:22] LABS: BASO # 0.02 K/mm3 (0.0-2.0); BASO % 0.2 % (0.0-3.0); EOS # 0.3 (0.0-0.7); EOS % 3.7 % (1.5-5.0); GRAN # 6.94 (1.4-6.5); GRAN % 75.5 % (50.0-68.0); HEMOGLOBIN 11.7 g/dL (12.0-16.0); LYMPH # 1.3 (1.2-3.4); LYMPH % 13.8 % (22.0-35.0); MEAN CELL VOLUME 93.5 fl (80.0-105.0); MEAN PLATELET VOLUME 10.4 fl (7.0-11.0); MONO # 0.6 (0.1-0.6); MONO % 6.8 % (1.0-6.0); RBC 4.03 10^6/uL (3.5-6.1); RED CELL DISTRIBUTION WIDTH 15.1 % (11.5-14.5); WHITE BLOOD COUNT 9.2 10^3/uL (4.5-11.0)
[2018-10-08 06:43] LABS: ALBUMIN 2.9 g/dL (3.0-4.8); CALCIUM 8.1 mg/dL (8.4-10.5)
--- NOTE | 2018-10-08 08:29 | PN ---
DATE: 10/05/2018 The patient in room 268, bed 1. This is an addendum to the progress note already done by Aubree Calloway. We are doing this progress note on behalf of Dr. Vidales whom we are covering. SUBJECTIVE: The patient is complaining of weakness, but she denies chest pain or palpitation. She says her shortness of breath is better. The patient is having episodes of sinus tachycardia. The patient is on Dobutrex drip. Clinically, she has just seemed to be improving, so I am going to switch Dobutrex to milrinone drip because of tachycardia and the patient's chest x-ray is still suggestive of mild congestion, so we will continue other therapy as has been ordered, and detailed note has been already dictated by Aubree Calloway. Sofía Flores MD
[2018-10-08] MEDS: DOBUTamine 500mg/250ml D5W 500 MG/250 ML BAG IV PRN (09:15)
--- NOTE | 2018-10-08 10:01 | CP.PCM.PN ---
Subjective - Date & Time of Evaluation Date of Evaluation: 10/08/18 Time of Evaluation: 09:00 - Subjective Subjective: Feels much better today, no nausea, no suprapubic pain, no hematuria, no fevers. Objective - Vital Signs/Intake and Output Vital Signs (last 24 hours): Temp Pulse Resp BP Pulse Ox 98.3 F 81 18 99/67 L 98 10/07/18 06:00 10/07/18 09:53 10/07/18 06:00 10/07/18 09:53 10/07/18 00:01 Intake and Output: 10/07/18 10/07/18 06:59 18:59 Intake Total 1120 Output Total 1600 Balance -480 - Medications Medications: Current Medications Acetaminophen (Tylenol 325mg Tab) 650 mg PO Q6H PRN PRN Reason: Pain, moderate (4-7) Last Admin: 10/03/18 07:42 Dose: 650 mg Albuterol/Ipratropium (Duoneb 3 Mg/0.5 Mg (3 Ml) Ud) 3 ml IH [id number] [facility] Last Admin: 10/07/18 07:44 Dose: 3 ml Amlodipine Besylate (Norvasc) 5 mg PO DAILY [facility] Last Admin: 10/07/18 09:36 Dose: 5 mg Ascorbic Acid (Vitamin C 500 Mg Tab) 500 mg PO DAILY [facility] Last Admin: 10/07/18 09:36 Dose: 500 mg Aspirin (Ecotrin) 81 mg PO 0800 [facility] Last Admin: 10/07/18 07:59 Dose: 81 mg Atorvastatin Calcium (Lipitor) 10 mg PO DIN [facility] Last Admin: 10/06/18 17:02 Dose: 10 mg Bacitracin (Bacitracin) 1 ea TOP BID [facility] Last Admin: 10/07/18 09:36 Dose: 1 ea Calcitriol (Rocaltrol) 0.25 mcg PO MWF [facility] Last Admin: 10/07/18 09:36 Dose: 0.25 mcg Calcium Carbonate (Oscal) 500 mg PO DAILY [facility] Last Admin: 10/07/18 09:36 Dose: 500 mg Cholecalciferol (Vitamin D) 1,000 intlu PO DAILY [facility] Last Admin: 10/07/18 09:36 Dose: 1,000 intlu Cyanocobalamin (Vitamin B12 1000 Mcg Tab) 1,000 mcg PO BID [facility] Last Admin: 10/07/18 09:36 Dose: 1,000 mcg Furosemide (Lasix) 40 mg IVP Q12 [facility] Last Admin: 10/07/18 09:37 Dose: 40 mg Gabapentin (Neurontin) 100 mg PO TID [facility]; Protocol Last Admin: 10/07/18 09:36 Dose: 100 mg Guaifenesin (Robitussin) 200 mg PO Q4H PRN PRN Reason: Cough and congestion Last Admin: 09/30/18 17:39 Dose: 200 mg Guaifenesin (Mucinex La) 600 mg PO BID [facility] Last Admin: 10/07/18 09:36 Dose: 600 mg Dobutamine HCl/Dextrose (Dobutamine/Dextrose 5% 500mg/250ml) 500 mg in 250 mls @ 12.193 mls/hr IV .[id number] PRN; Protocol PRN Reason: TITRATE PER PROTOCOL Last Admin: 10/07/18 09:53 Dose: 5 mcg/kg/min, 12.193 mls/hr Insulin Human Lispro (Humalog) 4 units SC AC [facility] Last Admin: 10/07/18 08:00 Dose: 4 units Insulin Human Regular (Humulin R Low) [address] [facility]; Protocol Last Admin: 10/07/18 07:59 Dose: 2 unit Isosorbide Mononitrate (Imdur) 60 mg PO 0600 [facility] Last Admin: 10/07/18 05:23 Dose: 60 mg Lisinopril (Zestril) 10 mg PO DAILY [facility] Last Admin: 10/07/18 09:36 Dose: 10 mg Metoprolol Tartrate (Lopressor) 100 mg PO BRKDIN [facility] Last Admin: 10/07/18 07:59 Dose: 100 mg Nystatin (Nystop Topical Powder) 0 gm TOP TID [facility] Last Admin: 10/06/18 19:10 Dose: 2 applic Primidone (Mysoline) 50 mg PO HS [facility] Last Admin: 10/06/18 21:29 Dose: 50 mg - Labs Labs: 10/07/18 06:00 10/07/18 06:00 - Constitutional Appears: Non-toxic, No Acute Distress, Chronically Ill - Head Exam Head Exam: NORMAL INSPECTION - ENT Exam ENT Exam: Mucous Membranes Moist - Respiratory Exam Respiratory Exam: Decreased Breath Sounds - Cardiovascular Exam Cardiovascular Exam: +S1, +S2 - GI/Abdominal Exam GI & Abdominal Exam: Soft. absent: Tenderness Assessment and Plan - Assessment and Plan (Free Text) Plan: Assessment hematuria and urinary retention R/O UTI with E. faecalis, S/P treatment with antibiotics S/P left leg cellulitis as well as right sided community-acquired pneumonia S/P left foot 2nd digit skin and skin structure infection CAD S/P CABG abdominal aortic aneurysm S/P repair S/P cholecystectomy S/P pacemaker placement DM S/P left toe amputation Plan S/P intermittent IV Vancomycin for 6 days - repeat urine cx taken with old noble still in, but patient now asymptomatic - will monitor off antibiotics and ask Noble to be changed to new Noble (Urology wants to keep the Noble) - should follow up with Urology as outpatient
[2018-10-08] MEDS: Insulin Lispro 1 UNITS/0.01 ML SC SCH ×3 (10:30→17:20)
[2018-10-08] MEDS: Bacitracin 500 Units/gm Oint Foilpak UD TOP SCH ×2 (10:31→17:27)
[2018-10-08] MEDS: guaiFENesin 600 mg ER Tab PO SCH ×2 (10:31→17:27)
[2018-10-08] MEDS: Insulin Reg-LOW-Coverage SC SCH ×3 (10:31→17:20)
[2018-10-08] MEDS: Cholecalciferol 1,000 INTLU TAB PO SCH (10:32)
[2018-10-08] MEDS: Lidocaine 5% Patch TD SCH (10:33)
[2018-10-08] MEDS: Nystatin 100,000 Units/gm Topical Pow(15 gm) TOP SCH ×3 (10:43→17:28)
[2018-10-08 12:38] VITALS: TEMP 98.4
[2018-10-08] MEDS: guaiFENesin 200 mg/10 ml Syrup UD PO PRN (12:42)
--- NOTE | 2018-10-08 12:50 | CP.PCM.DIS ---
<LaurashaziaGeneva malik - Last Filed: 10/08/18 16:57> Provider - Provider Date of Admission: 09/22/18 22:18 Attending physician: Gerry Parada MD Primary care physician: No PCP Consults: 09/23/18 00:37 Social Work Referral Routine Comment: Braylock score of 8. Physician Instructions: Reason For Exam: Protocol 09/23/18 00:54 Nursing Referral for Wound Care Routine Comment: Physician Instructions: Reason For Exam: healing blister on R. foot 09/23/18 00:58 Inpatient WARDROBE MANAGER Core Measures Referral Routine Comment: Physician Instructions: Reason For Exam: Protocol Transition In Care/Readmission Reduction Routine Comment: Physician Instructions: Reason For Exam: Protocol 09/23/18 11:38 Consult [Physician Consult] Routine Comment: Consulting Provider: Vinnie Sarmiento Consulting Physician: Vinnie Sarmiento Reason for Consult: T12 compression fx 09/23/18 14:31 Case Management Referral Routine Comment: Physician Instructions: Reason For Exam: BROOK Reason for Referral: Discharge Planning 09/24/18 10:19 Consult [Physician Consult] Routine Comment: Consulting Provider: Vinnie Vidales Consulting Physician: Vinnie Vidales Reason for Consult: hx of cardiomyopathy 09/30/18 10:46 Consult [Physician Consult] Routine Comment: Consulting Provider: Vinnie Sarmiento Consulting Physician: Vinnie Sarmiento Reason for Consult: port removal 10/02/18 07:44 Consult [Physician Consult] Routine Comment: Consulting Provider: Ayo Coto Consulting Physician: Ayo Coto Reason for Consult: UTI, PCN allergy 10/02/18 11:09 Physician Consult Routine Comment: Consulting Provider: Pierce Borges Consulting Physician: Pierce Borges Reason for Consult: Urinary retention; 10/02/18 13:20 Palliative Care Consult Routine Comment: Consulting Provider: Rekha Medeiros Physician Instructions: Reason For Exam: End stage CHF; Advanced directives 10/02/18 17:01 Wound Care [Nursing Referral for Wound Care] Routine Comment: Physician Instructions: Reason For Exam: sacral stage 1-2 10/07/18 10:26 Physician Consult Routine Comment: Consulting Provider: Gabriel Thomason Consulting Physician: Gabriel Thomason Reason for Consult: T12 Fracture Time Spent in preparation of Discharge (in minutes): 45 Diagnosis - Discharge Diagnosis (1) Acute renal failure syndrome Status: Acute Priority: Medium (2) Leg weakness, bilateral Status: Acute Priority: Medium (3) VALE (acute kidney injury) Status: Acute Priority: Medium (4) Hyperkalemia Status: Acute Priority: Medium Hospital Course - Lab Results Lab Results: Micro Results 10/06/18 14:14 Urine Urine Culture - Final Enterococcus Faecalis 10/01/18 18:45 Urine,Noble Urine Culture - Final Enterococcus Faecalis 09/23/18 23:07 Stool Stool Culture - Final NO SALMONELLA, SHIGELLA OR CAMPYLOBACTER ISOLATED. 09/22/18 15:24 Urine Urine Culture - Final Enterococcus Faecalis 09/23/18 23:05 Stool Ova and Parasite Concentrate Exam - Final 09/23/18 23:07 Stool C. difficile Antigen & Toxins A,B - Final Most Recent Lab Values WBC 9.2 10^3/uL (4.5-11.0) 10/08/18 05:57 RBC 4.03 10^6/uL (3.5-6.1) 10/08/18 05:57 Hgb 11.7 g/dL (12.0-16.0) L 10/08/18 05:57 Hct 37.7 % (36.0-48.0) 10/08/18 05:57 MCV 93.5 fl (80.0-105.0) 10/08/18 05:57 MCH 29.0 pg (25.0-35.0) 10/08/18 05:57 MCHC 31.0 g/dl (31.0-37.0) 10/08/18 05:57 RDW 15.1 % (11.5-14.5) H 10/08/18 05:57 Plt Count 261 10^3/uL (120.0-450.0) 10/08/18 05:57 MPV 10.4 fl (7.0-11.0) 10/08/18 05:57 Gran % 75.5 % (50.0-68.0) H 10/08/18 05:57 Lymph % (Auto) 13.8 % (22.0-35.0) L 10/08/18 05:57 [place] % (Auto) 6.8 % (1.0-6.0) H 10/08/18 05:57 Eos % (Auto) 3.7 % (1.5-5.0) 10/08/18 05:57 Baso % (Auto) 0.2 % (0.0-3.0) 10/08/18 05:57 Gran # 6.94 (1.4-6.5) H 10/08/18 05:57 Lymph # (Auto) 1.3 (1.2-3.4) 10/08/18 05:57 [place] # (Auto) 0.6 (0.1-0.6) 10/08/18 05:57 Eos # (Auto) 0.3 (0.0-0.7) 10/08/18 05:57 Baso # (Auto) 0.02 K/mm3 (0.0-2.0) 10/08/18 05:57 Sodium 135 mmol/L (132-148) 10/08/18 05:57 Potassium 4.7 mmol/L (3.6-5.0) 10/08/18 05:57 Chloride 102 mmol/L (98-107) 10/08/18 05:57 Carbon Dioxide 27 mmol/L (21-33) 10/08/18 05:57 Anion Gap 11 (10-20) 10/08/18 05:57 BUN 50 mg/dL (7-21) H 10/08/18 05:57 Creatinine 2.0 mg/dl (0.7-1.2) H 10/08/18 05:57 Est GFR ( Amer) 30 10/08/18 05:57 Est GFR (Non-Af Amer) 24 10/08/18 05:57 POC Glucose (mg/dL) 265 mg/dL (65-110) H 10/07/18 16:21 Random Glucose 183 mg/dL (70-110) H 10/08/18 05:57 Hemoglobin A1c 6.8 % (4.2-6.5) H 09/23/18 05:45 Calcium 8.1 mg/dL (8.4-10.5) L 10/08/18 05:57 Phosphorus 3.9 mg/dL (2.5-4.5) 09/29/18 07:00 Magnesium 1.7 mg/dL (1.7-2.2) 09/29/18 07:00 Iron 35 ug/dL (45-180) L 09/23/18 05:45 TIBC 317 ug/dL (265-497) 09/23/18 05:45 % Saturation 11 % (20-55) L 09/23/18 05:45 Ferritin 35.2 ng/mL 09/23/18 05:45 Total Bilirubin 0.3 mg/dL (0.2-1.3) 10/08/18 05:57 AST 32 U/L (14-36) 10/08/18 05:57 ALT 26 U/L (7-56) 10/08/18 05:57 Alkaline Phosphatase 98 U/L (38-126) 10/08/18 05:57 Total Creatine Kinase 30 U/L (35-230) L 09/22/18 23:01 Troponin I 0.02 ng/mL 09/22/18 21:50 Total Protein 6.0 g/dL (5.8-8.3) 10/08/18 05:57 Albumin 2.9 g/dL (3.0-4.8) L 10/08/18 05:57 Globulin 3.1 gm/dL 10/08/18 05:57 Albumin/Globulin Ratio 1.0 (1.1-1.8) L 10/08/18 05:57 Vitamin B12 969 pg/mL (239-931) H 09/23/18 05:45 25-OH Vitamin D Total 25.4 NG/ML (30.0-100.0) L 09/23/18 05:45 Folate > 20.0 ng/mL 09/23/18 05:45 Procalcitonin 0.32 NG/ML (0.19-0.49) 10/02/18 08:36 TSH 3rd Generation 2.00 mIU/mL (0.46-4.68) 09/29/18 07:00 Urine Color Yellow (YELLOW) 10/06/18 14:14 Urine Appearance Slight-cloudy (CLEAR) 10/06/18 14:14 Urine pH 6.0 (4.7-8.0) 10/06/18 14:14 Ur Specific [place] 1.010 (1.005-1.035) 10/06/18 14:14 Urine Protein 100 mg/dL (<30 mg/dL) H 10/06/18 14:14 Urine Glucose (UA) Negative mg/dL (NEGATIVE) 10/06/18 14:14 Urine Ketones Negative mg/dL (NEGATIVE) 10/06/18 14:14 Urine Blood Moderate (NEGATIVE) H 10/06/18 14:14 Urine Nitrate Negative (NEGATIVE) 10/06/18 14:14 Urine Bilirubin Negative (NEGATIVE) 10/06/18 14:14 Urine Urobilinogen 0.2 E.U./dL (<1 E.U./dL) 10/06/18 14:14 Ur Leukocyte Esterase Trace Collins/uL (NEGATIVE) H 10/06/18 14:14 Urine RBC 5 - 10 /hpf (0-2) 10/06/18 14:14 Urine WBC 5 - 10 /hpf (0-6) 10/06/18 14:14 Ur Epithelial Cells 0 - 2 /hpf (0-5) 10/06/18 14:14 Urine Bacteria Few (NEG) 10/01/18 18:45 Stool Occult Blood Negative (NEGATIVE) 09/23/18 08:50 Stool Leukocytes, Qual Negative (NEGATIVE) 09/23/18 23:07 Random Vancomycin 11.6 ug/mL (20-40) L 10/07/18 06:00 - Hospital Course Hospital Course: PGY1 Hospital Course and Discharge Summary for Dr. Parada Patient is a 73-year-old Female with multiple comorbidities and PMH of CAD s/p CABG, T2DM, CHF s/p AICD placement, IDDM, neuropathy, PVD, HTN, HLD, ileostomy, chronic hip and knee pain who presents to [facility] for b/l LE weakness and pain. Please see report for details. Patient was found to have labs consistent with Acute Kidney Injury and was subsequently admitted for evaluation and treatment for VALE. Patient underwent bilateral LE venous doppler, which was negative for DVT bilaterally. Patient was also noted to have hyperkalemia on initial lab results, which was treated and resolved. Please see report for details. Cardiology was consulted (Dr. Vidales), who recommended dobutamine drip. Patient received treatment with titration of dobutamine throughout hospital stay. Please see Cardiology reports for details. Patient was also found to have urinary retention s/p noble insertion, likely secondary to UTI (Urine cultures positive for E. Faecalis), which was treated with antibiotics. Urology was consulted. ID was consulted (Dr. Coto). Please see complete reports for details. Patient also has chronic low back pain due to T12 Compression Fracture. Dr. Thomason was consulted. Also during this hospitalization, Palliative Care was consulted. Patient decided to be DNR/DNI during this hospital stay. Please see report for details. Physical Therapy came to work with the Patient daily for rehab and strengthening and recommended rehab upon discharge. On day of discharge, noble still in place, no hematuria noted in bag. Patient was hemodynamically stable and medically optimized for discharge to rehab facility. Please see chart for details. Patient was given detailed discharge instructions both verbally and written and was explained to Patient at the level of Patient's comprehension. Patient both understands and agrees to all discharge instructions. Please see chart for more detailed summary. Patient seen and case discussed in detail with Dr. Tal Mckeon PGY1 Discharge Exam - Additional Findings Additional findings: - Constitutional Appears: Non-toxic, No Acute Distress, Chronically Ill - Head Exam Head Exam: ATRAUMATIC, NORMAL INSPECTION, NORMOCEPHALIC - Eye Exam Eye Exam: EOMI, Normal appearance, PERRL - Respiratory Exam Respiratory Exam: Rhonchi (diffusely present in all lung yang b/l, improved from yesterdays exam), NORMAL BREATHING PATTERN. absent: Accessory Muscle Use, Decreased Breath Sounds, Rales, Wheezes, Respiratory Distress, Stridor - Cardiovascular Exam Cardiovascular Exam: RRR, +S1, +S2. absent: Gallop, Rubs - GI/Abdominal Exam GI & Abdominal Exam: Soft, Tenderness, Normal Bowel Sounds. absent: Firm, Guarding, Rigid Additional comments: illiostomy pink, patent, productive, mild herniation noted. Fecal material noted in bag, output and air note - Extremities Exam Additional comments: Patient has history of L 1st and 2nd transmetatarsal amputation - Back Exam Back Exam: NORMAL INSPECTION. absent: CVA tenderness (L), CVA tenderness (R) - Neurological Exam Neurological Exam: Alert, Awake, Oriented x3 - Psychiatric Exam Psychiatric exam: Normal Affect, Normal Mood - Skin Skin Exam: Dry, Normal Color, Warm Discharge Plan - Follow Up Plan Condition: STABLE Disposition: HOME/ ROUTINE Additional Instructions: Please follow up with Dr. Flannery upon discharge from subacute rehab. You blood pressure medications were adjusted as follows - Lasix was increased to 40mg TWICE per day - Norvasc 5mg daily was ADDED to help control your blood pressure Please follow up with Dr. Vidales (Meeting Manager) and Dr. Borges (Urologist) upon discharge from subacute rehab. If your symptoms worsen, please go to the nearest emergency department. Referrals: Pierce Borges MD [Staff Provider] - Vinnie Vidales MD [Staff Provider] - <Gerry Parada - Last Filed: 10/08/18 18:42> Provider - Provider Date of Admission: 09/22/18 22:18 Attending physician: Gerry Parada MD Consults: 09/23/18 00:37 Social Work Referral Routine Comment: Braylock score of 8. Physician Instructions: Reason For Exam: Protocol 09/23/18 00:54 Nursing Referral for Wound Care Routine Comment: Physician Instructions: Reason For Exam: healing blister on R. foot 09/23/18 00:58 Inpatient WARDROBE MANAGER Core Measures Referral Routine Comment: Physician Instructions: Reason For Exam: Protocol Transition In Care/Readmission Reduction Routine Comment: Physician Instructions: Reason For Exam: Protocol 09/23/18 11:38 Consult [Physician Consult] Routine Comment: Consulting Provider: Vinnie Sarmiento Consulting Physician: Vinnie Sarmiento Reason for Consult: T12 compression fx 09/23/18 14:31 Case Management Referral Routine Comment: Physician Instructions: Reason For Exam: BROOK Reason for Referral: Discharge Planning 09/24/18 10:19 Consult [Physician Consult] Routine Comment: Consulting Provider: Vinnie Vidales Consulting Physician: Vinnie Vidales Reason for Consult: hx of cardiomyopathy 09/30/18 10:46 Consult [Physician Consult] Routine Comment: Consulting Provider: Vinnie Sarmiento Consulting Physician: Vinnie Sarmiento Reason for Consult: port removal 10/02/18 07:44 Consult [Physician Consult] Routine Comment: Consulting Provider: Ayo Coto Consulting Physician: Ayo Coto Reason for Consult: UTI, PCN allergy 10/02/18 11:09 Physician Consult Routine Comment: Consulting Provider: Pierce Borges Consulting Physician: Pierce Borges Reason for Consult: Urinary retention; 10/02/18 13:20 Palliative Care Consult Routine Comment: Consulting Provider: Rekha Medeiros Physician Instructions: Reason For Exam: End stage CHF; Advanced directives 10/02/18 17:01 Wound Care [Nursing Referral for Wound Care] Routine Comment: Physician Instructions: Reason For Exam: sacral stage 1-2 10/07/18 10:26 Physician Consult Routine Comment: Consulting Provider: Gabriel Thomason Consulting Physician: Gabriel Thomason Reason for Consult: T12 Fracture Hospital Course - Lab Results Lab Results: Micro Results 10/06/18 14:14 Urine Urine Culture - Final Enterococcus Faecalis 10/01/18 18:45 Urine,Noble Urine Culture - Final Enterococcus Faecalis 09/23/18 23:07 Stool Stool Culture - Final NO SALMONELLA, SHIGELLA OR CAMPYLOBACTER ISOLATED. 09/22/18 15:24 Urine Urine Culture - Final Enterococcus Faecalis 09/23/18 23:05 Stool Ova and Parasite Concentrate Exam - Final 09/23/18 23:07 Stool C. difficile Antigen & Toxins A,B - Final Most Recent Lab Values WBC 9.2 10^3/uL (4.5-11.0) 10/08/18 05:57 RBC 4.03 10^6/uL (3.5-6.1) 10/08/18 05:57 Hgb 11.7 g/dL (12.0-16.0) L 10/08/18 05:57 Hct 37.7 % (36.0-48.0) 10/08/18 05:57 MCV 93.5 fl (80.0-105.0) 10/08/18 05:57 MCH 29.0 pg (25.0-35.0) 10/08/18 05:57 MCHC 31.0 g/dl (31.0-37.0) 10/08/18 05:57 RDW 15.1 % (11.5-14.5) H 10/08/18 05:57 Plt Count 261 10^3/uL (120.0-450.0) 10/08/18 05:57 MPV 10.4 fl (7.0-11.0) 10/08/18 05:57 Gran % 75.5 % (50.0-68.0) H 10/08/18 05:57 Lymph % (Auto) 13.8 % (22.0-35.0) L 10/08/18 05:57 [place] % (Auto) 6.8 % (1.0-6.0) H 10/08/18 05:57 Eos % (Auto) 3.7 % (1.5-5.0) 10/08/18 05:57 Baso % (Auto) 0.2 % (0.0-3.0) 10/08/18 05:57 Gran # 6.94 (1.4-6.5) H 10/08/18 05:57 Lymph # (Auto) 1.3 (1.2-3.4) 10/08/18 05:57 [place] # (Auto) 0.6 (0.1-0.6) 10/08/18 05:57 Eos # (Auto) 0.3 (0.0-0.7) 10/08/18 05:57 Baso # (Auto) 0.02 K/mm3 (0.0-2.0) 10/08/18 05:57 Sodium 135 mmol/L (132-148) 10/08/18 05:57 Potassium 4.7 mmol/L (3.6-5.0) 10/08/18 05:57 Chloride 102 mmol/L (98-107) 10/08/18 05:57 Carbon Dioxide 27 mmol/L (21-33) 10/08/18 05:57 Anion Gap 11 (10-20) 10/08/18 05:57 BUN 50 mg/dL (7-21) H 10/08/18 05:57 Creatinine 2.0 mg/dl (0.7-1.2) H 10/08/18 05:57 Est GFR ( Amer) 30 10/08/18 05:57 Est GFR (Non-Af Amer) 24 10/08/18 05:57 POC Glucose (mg/dL) 265 mg/dL (65-110) H 10/07/18 16:21 Random Glucose 183 mg/dL (70-110) H 10/08/18 05:57 Hemoglobin A1c 6.8 % (4.2-6.5) H 09/23/18 05:45 Calcium 8.1 mg/dL (8.4-10.5) L 10/08/18 05:57 Phosphorus 3.9 mg/dL (2.5-4.5) 09/29/18 07:00 Magnesium 1.7 mg/dL (1.7-2.2) 09/29/18 07:00 Iron 35 ug/dL (45-180) L 09/23/18 05:45 TIBC 317 ug/dL (265-497) 09/23/18 05:45 % Saturation 11 % (20-55) L 09/23/18 05:45 Ferritin 35.2 ng/mL 09/23/18 05:45 Total Bilirubin 0.3 mg/dL (0.2-1.3) 10/08/18 05:57 AST 32 U/L (14-36) 10/08/18 05:57 ALT 26 U/L (7-56) 10/08/18 05:57 Alkaline Phosphatase 98 U/L (38-126) 10/08/18 05:57 Total Creatine Kinase 30 U/L (35-230) L 09/22/18 23:01 Troponin I 0.02 ng/mL 09/22/18 21:50 Total Protein 6.0 g/dL (5.8-8.3) 10/08/18 05:57 Albumin 2.9 g/dL (3.0-4.8) L 10/08/18 05:57 Globulin 3.1 gm/dL 10/08/18 05:57 Albumin/Globulin Ratio 1.0 (1.1-1.8) L 10/08/18 05:57 Vitamin B12 969 pg/mL (239-931) H 09/23/18 05:45 25-OH Vitamin D Total 25.4 NG/ML (30.0-100.0) L 09/23/18 05:45 Folate > 20.0 ng/mL 09/23/18 05:45 Procalcitonin 0.32 NG/ML (0.19-0.49) 10/02/18 08:36 TSH 3rd Generation 2.00 mIU/mL (0.46-4.68) 09/29/18 07:00 Urine Color Yellow (YELLOW) 10/06/18 14:14 Urine Appearance Slight-cloudy (CLEAR) 10/06/18 14:14 Urine pH 6.0 (4.7-8.0) 10/06/18 14:14 Ur Specific [place] 1.010 (1.005-1.035) 10/06/18 14:14 Urine Protein 100 mg/dL (<30 mg/dL) H 10/06/18 14:14 Urine Glucose (UA) Negative mg/dL (NEGATIVE) 10/06/18 14:14 Urine Ketones Negative mg/dL (NEGATIVE) 10/06/18 14:14 Urine Blood Moderate (NEGATIVE) H 10/06/18 14:14 Urine Nitrate Negative (NEGATIVE) 10/06/18 14:14 Urine Bilirubin Negative (NEGATIVE) 10/06/18 14:14 Urine Urobilinogen 0.2 E.U./dL (<1 E.U./dL) 10/06/18 14:14 Ur Leukocyte Esterase Trace Collins/uL (NEGATIVE) H 10/06/18 14:14 Urine RBC 5 - 10 /hpf (0-2) 10/06/18 14:14 Urine WBC 5 - 10 /hpf (0-6) 10/06/18 14:14 Ur Epithelial Cells 0 - 2 /hpf (0-5) 10/06/18 14:14 Urine Bacteria Few (NEG) 10/01/18 18:45 Stool Occult Blood Negative (NEGATIVE) 09/23/18 08:50 Stool Leukocytes, Qual Negative (NEGATIVE) 09/23/18 23:07 Random Vancomycin 11.6 ug/mL (20-40) L 10/07/18 06:00 Attending/Attestation - Attestation I have personally seen and examined this patient.: Yes I have fully participated in the care of the patient.: Yes I have reviewed all pertinent clinical information, including history, physical exam and plan: Yes Notes (Text): 10/08/18 18:40 Attending note; Patient seen and examined with resident. Patient denies any chest pain, shortness of breath. Itching and redness resolved. Patient is a 73-year-old female with past medical history significant for coronary artery disease status post CABG, insulin-dependent type 2 diabetes, chronic systolic CHF status post AICD placement, neuropathy, peripheral vascular disease, hypertension, hyperlipidemia, ileostomy, and chronic hip and knee pain that presented to the emergency room with bilateral lower extremity weakness and pain. 1. Acute on chronic systolic CHF exacerbation. resolving. End-stage dilated cardiomyopathy. Cardiology recommendations appreciated. on dobutamine. 2. Enterococcus faecalis UTI. resolved. Case discussed with ID in detail. Treated with vancomycin. Currently patient is afebrile and nontoxic. Noble catheter in place. Follow-up urology DR. Borges as outpatient. 3. VALE on CKD. Creatinine stabilized. Patient on Lasix.Continue to monitor. 4. Hyperkalemia. Resolved. Continue to monitor. 5. CAD s/p CABG. Continue aspirin, Lipitor, and Lopressor. 6. Insulin-dependent type 2 diabetes. Continue insulin sliding scale. Continue Humalog 4 units subcutaneous before meals. 7. Essential hypertension. Continue Lopressor, lisinopril, Norvasc, and Imdur. 8. Hyperlipidemia. Continue Lipitor. 9. Neuropathy. Leg weakness. Gait instability. Continue gabapentin. Patient will need to go to subacute rehabilitation. Continue physical therapy. 10. T12 compression fracture. Age indeterminate. IR recommendations appreciated. Continue physical therapy. No surgical intervention needed. Neurology evaluation appreciated. Started on Lidoderm patch. Continue Neurontin. Advanced directive. Patient has a POLST and is DNR/DNI. Possible transfer to rehabilitation today. Long-term prognosis is poor. Upon discharge the patient will follow up with PMD . 10/08/18 18:41
--- NOTE | 2018-10-08 15:02 | PN ---
DATE: 10/08/2018 CARDIOLOGY FOLLOWUP SUBJECTIVE: The patient's breathing is much improved on IV dobutamine. PHYSICAL EXAMINATION: VITAL SIGNS: The heart rate is in the 90s, blood pressure 131/81. NECK: Negative JVD. LUNGS: Bilateral rhonchi. HEART: Reveal S1, S2. EXTREMITIES: Without change. LABORATORY DATA: Hemoglobin is 11.7. Chemistries: BUN and creatinine are 50 and 2.0. IMPRESSION: 1. Resolution of congestive heart failure. 2. End-stage dilated cardiomyopathy. 3. Renal insufficiency. 4. Diabetes mellitus. Given these findings, the patient can be transferred to rehab on IV dobutamine with plans for home dobutamine. Vinnie Vidales MD
[2018-10-08 17:52] VITALS: BP 128/68
[2018-10-08 18:20] VITALS: PULSE 83; RESP 20
== END 2018-10-08 21:07 | DRG 291 ==
LOC: ED 18:00 → ERH 22:18 → 2RNO 23:56
PROVIDERS: ADMIT Internal Medicine; ATTEND Internal Medicine
PROC: 05PY33Z Removal of Infusion Device from Upper Vein, Percutaneous Approach (ICD-10-PCS; principal; 2018-10-01)
DX: I13.0 Hypertensive heart and chronic kidney disease with heart failure and stage 1 through stage 4 chronic kidney disease, or unspecified chronic kidney disease (principal); I50.23 Acute on chronic systolic (congestive) heart failure; J18.9 Pneumonia, unspecified organism; T83.511A Infection and inflammatory reaction due to indwelling urethral catheter, initial encounter; N17.9 Acute kidney failure, unspecified; E87.1 Hypo-osmolality and hyponatremia; I47.2 Ventricular tachycardia; J98.11 Atelectasis; L03.116 Cellulitis of left lower limb; M48.54XA Collapsed vertebra, not elsewhere classified, thoracic region, initial encounter for fracture; N39.0 Urinary tract infection, site not specified; T83.83XA Hemorrhage due to genitourinary prosthetic devices, implants and grafts, initial encounter; S37.90XA Unspecified injury of unspecified urinary and pelvic organ, initial encounter; I42.0 Dilated cardiomyopathy; I25.5 Ischemic cardiomyopathy; E11.40 Type 2 diabetes mellitus with diabetic neuropathy, unspecified; M25.569 Pain in unspecified knee; M79.669 Pain in unspecified lower leg; E87.5 Hyperkalemia; M47.9 Spondylosis, unspecified; M48.061 Spinal stenosis, lumbar region without neurogenic claudication; M48.04 Spinal stenosis, thoracic region; M25.78 Osteophyte, vertebrae; E11.22 Type 2 diabetes mellitus with diabetic chronic kidney disease; Z87.891 Personal history of nicotine dependence; Z95.1 Presence of aortocoronary bypass graft; N18.1 Chronic kidney disease, stage 1; I71.4 Abdominal aortic aneurysm, without rupture; E11.51 Type 2 diabetes mellitus with diabetic peripheral angiopathy without gangrene; E11.65 Type 2 diabetes mellitus with hyperglycemia; Z79.4 Long term (current) use of insulin; Z95.810 Presence of automatic (implantable) cardiac defibrillator; G89.29 Other chronic pain; I25.10 Atherosclerotic heart disease of native coronary artery without angina pectoris; Z79.899 Other long term (current) drug therapy; E11.42 Type 2 diabetes mellitus with diabetic polyneuropathy; K42.9 Umbilical hernia without obstruction or gangrene; G25.0 Essential tremor; L29.9 Pruritus, unspecified; Z88.8 Allergy status to other drugs, medicaments and biological substances; Z87.892 Personal history of anaphylaxis; Z88.1 Allergy status to other antibiotic agents; Z91.013 Allergy to seafood; E78.5 Hyperlipidemia, unspecified; B95.2 Enterococcus as the cause of diseases classified elsewhere; D64.9 Anemia, unspecified; E78.00 Pure hypercholesterolemia, unspecified; M16.11 Unilateral primary osteoarthritis, right hip; N25.89 Other disorders resulting from impaired renal tubular function; N28.1 Cyst of kidney, acquired; Y84.6 Urinary catheterization as the cause of abnormal reaction of the patient, or of later complication, without mention of misadventure at the time of the procedure; T50.1X5A Adverse effect of loop [high-ceiling] diuretics, initial encounter; Z53.20 Procedure and treatment not carried out because of patient's decision for unspecified reasons; Z66 Do not resuscitate; Z74.01 Bed confinement status; Z79.82 Long term (current) use of aspirin; Z80.3 Family history of malignant neoplasm of breast; Z80.6 Family history of leukemia; Z80.8 Family history of malignant neoplasm of other organs or systems; Z82.49 Family history of ischemic heart disease and other diseases of the circulatory system; Z83.3 Family history of diabetes mellitus; Z86.79 Personal history of other diseases of the circulatory system; Z89.422 Acquired absence of other left toe(s); Z90.49 Acquired absence of other specified parts of digestive tract; Z93.3 Colostomy status; Z95.820 Peripheral vascular angioplasty status with implants and grafts

== ENCOUNTER 2018-12-04 00:20 | Inpatient (IN) | payer MEDICARE ==
[2018-12-04] MEDS ORDERED: Sodium Chloride 0.9% 1,000 ML IV STA (00:47)
[2018-12-04] MEDS ORDERED: Morphine 4 mg/ml ISec IVP STA ×2 (00:47→02:42)
--- NOTE | 2018-12-04 00:51 | ED PDOC ---
Arrival/HPI - General Chief Complaint: Abdominal Pain Time Seen by Provider: 12/04/18 00:40 Historian: Patient - History of Present Illness Narrative History of Present Illness (Text): 12/04/18 00:47 73 year old female, whose past medical history includes CAD and CABG, CHF and AICD placement, IDDM, neuropathy, PVD, hypertension, hypercholesterolemia, and ileostomy presents to the emergency department with abdominal discomfort for 4 hours. Patient states pain is localized to the middle and right side of the abdomen. Patient informs having no bowel movements today. Patient denies any nausea, vomiting, diarrhea. Patient also denies any fever, chills, headache, dizziness, chest pain, shortness of breath, back pain, or any other complaints. Time/Duration: Prior to Arrival Past Medical History - Provider Review Nursing Documentation Reviewed: Yes - Infectious Disease Hx of Infectious Diseases: None - Tetanus Immunization Tetanus Immunization: Unknown - Cardiac Hx Cardiac Disorders: Yes Hx Pacemaker: Yes - Pulmonary Hx Respiratory Disorders: No - Neurological Hx Neurological Disorder: No - HEENT Hx HEENT Disorder: Yes Hx Cataracts: Yes (bilateral laser sx) - Renal Hx Renal Disorder: Yes - Endocrine/Metabolic Hx Endocrine Disorders: Yes Hx Diabetes Mellitus Type 2: Yes (Neuropathy) - Hematological/Oncological Hx Cancer: No - Integumentary Other/Comment: STage 3 sacral ulcers. BLE redness w/ scattered scabs. Under breasts folds redness. Bilateral under belly Folds redness skin excoriated - Musculoskeletal/Rheumatological Hx Falls: No - Gastrointestinal Hx Gastrointestinal Disorders: Yes (umbilical hernia ileostomy) Hx Ileostomy: Yes - Genitourinary/Gynecological Hx Genitourinary Disorders: Yes (noble) Hx Reproductive Disorders: No - Psychiatric Hx Psychophysiologic Disorder: No Hx Substance Use: No - Surgical History Hx Mastectomy: No - Anesthesia Hx Anesthesia: Yes Hx Anesthesia Reactions: No Hx Malignant Hyperthermia: No - Suicidal Assessment Feels Threatened In Home Enviroment: No Family/Social History - Physician Review Nursing Documentation Reviewed: Yes Family/Social History: No Known Family HX Smoking Status: Former Smoker Hx Alcohol Use: No Hx Substance Use: No Hx Substance Use Treatment: No Allergies/Home Meds Allergies/Adverse Reactions: Allergies amoxicillin [From Augmentin] Allergy (Verified 07/29/18 20:50) ANAPHYLAXIS clavulanic acid [From Augmentin] Allergy (Verified 07/29/18 20:50) ANAPHYLAXIS doxycycline Allergy (Verified 04/29/18 21:11) ANAPHYLAXIS shellfish derived Allergy (Verified 04/29/18 21:11) ANAPHYLAXIS Home Medications: Home Meds Medication Instructions Recorded Confirmed Ascorbic Acid [Vitamin C with Christina 500 mg PO DAILY 12/04/18 12/04/18 Hips] Aspirin [Ecotrin] 81 mg PO DAILY 12/04/18 12/04/18 Atorvastatin [Lipitor] 40 mg PO DAILY 12/04/18 12/04/18 Bumetanide [Bumex] 1 tab PO BID 12/04/18 12/04/18 Calcitriol 0.25 mcg PO MWF 12/04/18 12/04/18 Calcium Carbonate [Oscal] 500 mg PO DAILY 12/04/18 12/04/18 Cholecalciferol (Vitamin D3) 2,000 unit PO DAILY 12/04/18 12/04/18 [Vitamin D3] Cyanocobalamin [Vitamin B12] 500 mcg PO BID 12/04/18 12/04/18 Digoxin [Lanoxin] 125 mcg PO F 12/04/18 12/04/18 Isosorbide Mononitrate [Isosorbide 120 mg PO DAILY 12/04/18 12/04/18 Mononitrate ER] Metoprolol Succinate [Toprol Xl] 100 mg PO BID 12/04/18 12/04/18 Primidone [Mysoline] 50 mg PO HS 12/04/18 12/04/18 Tamsulosin HCl [Flomax] 0.4 mg PO HS 12/04/18 12/04/18 Review of Systems - Physician Review All systems were reviewed & negative as marked: Yes - Review of Systems Constitutional: absent: Fevers, Night Sweats Respiratory: absent: SOB, Cough Cardiovascular: absent: Chest Pain Gastrointestinal: Abdominal Pain. absent: Diarrhea, Nausea, Vomiting Musculoskeletal: absent: Back Pain Neurological: absent: Headache, Dizziness Physical Exam Vital Signs Reviewed: Yes Vital Signs Temp Pulse Resp BP Pulse Ox 12/04/18 00:28 98.4 F 104 H 20 161/83 H 100 Temperature: Afebrile Blood Pressure: Hypertensive Pulse: Tachycardic Respiratory Rate: Normal Appearance: Positive for: Well-Appearing, Non-Toxic, Comfortable Pain Distress: None Mental Status: Positive for: Alert and Oriented X 3 - Systems Exam Head: Present: Atraumatic, Normocephalic Pupils: Present: PERRL Extroacular Muscles: Present: EOMI Conjunctiva: Present: Normal Mouth: Present: Moist Mucous Membranes Neck: Present: Normal Range of Motion Respiratory/Chest: Present: Clear to Auscultation, Good Air Exchange. No: Respiratory Distress, Accessory Muscle Use Cardiovascular: Present: Regular Rate and Rhythm, Normal S1, S2. No: Murmurs Abdomen: Present: Tenderness (to the right abdomen, level with the ileostomy), Guarding (voluntary), Hernias (positive palpable hernia, reducible). No: Distention, Peritoneal Signs Back: Present: Normal Inspection Upper Extremity: Present: Normal Inspection. No: Cyanosis, Edema Lower Extremity: Present: Normal Inspection. No: Edema Neurological: Present: GCS=15, CN II-XII Intact, Speech Normal Skin: Present: Warm, Dry, Normal Color. No: Rashes Psychiatric: Present: Alert, Oriented x 3, Normal Insight, Normal Concentration Medical Decision Making ED Course and Treatment: 12/04/18 00:55 Impression: 73 year old female presents with abdominal pain. Plan: -- CT ABD & Pelvis -- CMP, Lipase -- CBC -- Morphine, Zofran -- Reassess and disposition Prior Visits: Notes and results from previous visits were reviewed. Progress Notes: 12/04/18 03:37 CT SCAN OF THE ABDOMEN AND PELVIS WITHOUT ORAL OR IV CONTRAST. CLINICAL INDICATION: Pain. TECHNIQUE: Axial and reformatted sagittal and coronal images of the abdomen pelvis obtained without IV contrast administration. COMPARISON: 03/17/2018. FINDINGS: Bilateral basilar atelectatic pulmonary changes. Bilateral basilar interstitial pulmonary thickening. Moderate cardiomegaly. AICD is noted in good position. Cholecystectomy. Unchanged infrarenal abdominal aortic aneurysm. Stent grafts are again noted in good position. Interval appearance of partial small bowel obstruction. The transition zone is in the right peristomal hernia in the right lower quadrant anterior abdominal wall. No evidence of incarceration or bowel perforation. Noble catheter balloon is seen in the bladder. 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 Normal unenhanced liver. Nondilated extrahepatic biliary system. Normal unenhanced spleen. Normal pancreas. Normal bilateral adrenal glands. Bilateral renal cysts are noted. Normal size of the right kidney. There is no right renal mass. There are no right renal calculi. There is no right hydronephrosis. Normal visualized right ureter. Normal size of the left kidney. There is no left renal mass. There are no left renal calculi. There is no left hydronephrosis. Normal visualized left ureter. Calcified atheromatous plaques of abdominal aorta. Normal inferior vena cava. Normal retroperitoneum. There is no pelvic mass lesion or lymphadenopathy. There is no pelvic fluid. Moderate diffuse spondylosis. IMPRESSION: Interval appearance of moderate partial small bowel obstruction. Transition zone in the right peristomal hernia of the anterior abdominal wall overlying the right lower quadrant at the site of the colostomy. No evidence of incarceration. No evidence of bowel perforation or pneumatosis intestinalis. 12/04/18 03:46 Case discussed with medical staffing coordinator, neurosurgical nurse practitioner, and Dr Myers the house physician, who accept patient admission. - Scribe Statement The provider has reviewed the documentation as recorded by the Francisca Sargent Provider Scribe Attestation: All medical record entries made by the Francisca were at my direction and personally dictated by me. I have reviewed the chart and agree that the record accurately reflects my personal performance of the history, physical exam, medical decision making, and the department course for this patient. I have also personally directed, reviewed, and agree with the discharge instructions and disposition. Disposition/Present on Arrival - Present on Arrival Any Indicators Present on Arrival: No History of DVT/PE: No History of Uncontrolled Diabetes: No Urinary Catheter: Yes History of Decub. Ulcer: No History Surgical Site Infection Following: None - Disposition Have Diagnosis and Disposition been Completed?: Yes Diagnosis: Partial small bowel obstruction Disposition: HOSPITALIZED Disposition Time: 03:42 Patient Problems: Current Active Problems Problem Status Onset Partial small bowel obstruction Acute Condition: STABLE Referrals: Yariel Flannery MD [Primary Care Provider] - Follow up with primary Forms: [employer] (Welsh)
[2018-12-04 01:32] LABS: MEAN CELL VOLUME 93.5 fl (80.0-105.0); MEAN CORPUSCULAR HEMOGLOBIN 29.2 pg (25.0-35.0); MEAN CORPUSCULAR HGB CONC 31.3 g/dl (31.0-37.0); MEAN PLATELET VOLUME 8.8 fl (7.0-11.0); RBC 3.08 10^6/uL (3.5-6.1); RED CELL DISTRIBUTION WIDTH 16.9 % (11.5-14.5); WHITE BLOOD COUNT 13.2 10^3/uL (4.5-11.0)
[2018-12-04 01:35] LABS: ALB/GLOB RATIO 0.8 (1.1-1.8); ALBUMIN 2.9 g/dL (3.0-4.8); CALCIUM 8.3 mg/dL (8.4-10.5)
--- NOTE | 2018-12-04 03:55 | CP.PCM.CON ---
<[employer] - Last Filed: 12/04/18 04:42> History of Present Illness - History of Present Illness History of Present Illness: Surgery for Dr. Mercado Ms Min, 73 F, with PMH CAD s/p CABG & AICD, systolic CHF with End-staged dilated cardiomyopathy s/p IV home inotropic therapy, diabetes with L toe amputation, AAA repair, ileostomy s/p colectomy due to ischemic colitis, CKD stage 4, and chronic ataxia with DJD, presents to the emergency department complaining of abd pain. Pain started yesterday. Located epigastric and R abd. Stoma has some gas output. Minimal output since yesterday. Denies fever, nausea, vomiting, hematemesis, hematochezia, CP , SOB, recent weight loss, sick contact, recent travel, change in meds, nor skip meds. Pt reports that she had ileostomy with colectomy in 2013 at [facility] Dr. Benavides. However, CT from 2011 EMR shows that she had stoma then. Parastomal hernia present at that time. Pt has been seeing Dr. Mercado since the surgery for parastomal hernia. Pt was asymptomatic, so surgery was offered to repair it. Pt also was reluctant to go under another surgery to reverse the ileostomy because of possible complication and her multiple comorbidities. Explained in detail that now she is symptomatic and may need parastomal hernia repair or reversal of the stoma if sxs worsen. Pt understood. CT today shows partial SBO w transition point at parastomal hernia. PMD: Dr. Flannery Cardio: Dr Vidales [facility] CAD s/p CABG and AICD End-staged dilated cardiomyopathy s/p IV home inotropic therapy 2014 CHF, systolic (EF 30s, 2017, RVSP 24) diabetes (IDDM x 20 years, A1C 6.29 March 2018) with L toes amputation CKD stage 4 chronic ataxia with DJD Chronic sacral ulcers Umbilical hernia PSH L foot 1st and 2nd digit amputation, 2015, 2017 Port-a-cath placement for milrinone, 2014 AAA repair ileostomy s/p ischemic colitis & colostomy creation Cataract b/l s/p pura Sx FH Mom - breast ca, DM; Dad - throat ca SH Former smoker. Denies drug/drink. Walk w rolling walker Independent in 5/6 ADLs at baseline (eating, bathing, dressing, toling, transfering, toileting) cooks and help sort/administer pills All Doxycycline, augmentin Shell-fish Review of Systems - Review of Systems Review of Systems: See HPI Past Patient History - Infectious Disease Hx of Infectious Diseases: None - Tetanus Immunizations Tetanus Immunization: Unknown - Past Medical History & Family History Past Medical History?: Yes - Past Social History Smoking Status: Former Smoker - CARDIAC Hx Cardiac Disorders: Yes Hx Pacemaker: Yes - PULMONARY Hx Respiratory Disorders: No - NEUROLOGICAL Hx Neurological Disorder: No - HEENT Hx HEENT Problems: Yes Hx Cataracts: Yes (bilateral laser sx) - RENAL Hx Chronic Kidney Disease: Yes - ENDOCRINE/METABOLIC Hx Endocrine Disorders: Yes Hx Diabetes Mellitus Type 2: Yes (Neuropathy) - HEMATOLOGICAL/ONCOLOGICAL Hx Cancer: No - INTEGUMENTARY Other/Comment: STage 3 sacral ulcers. BLE redness w/ scattered scabs. Under breasts folds redness. Bilateral under belly Folds redness skin excoriated - MUSCULOSKELETAL/RHEUMATOLOGICAL Hx Falls: No - GASTROINTESTINAL Hx Gastrointestinal Disorders: Yes (umbilical hernia ileostomy) Hx Ileostomy: Yes - GENITOURINARY/GYNECOLOGICAL Hx Genitourinary Disorders: Yes (noble) Hx Reproductive Disorders: No - PSYCHIATRIC Hx Psychophysiologic Disorder: No Hx Substance Use: No - SURGICAL HISTORY Hx Mastectomy: No - ANESTHESIA Hx Anesthesia: Yes Hx Anesthesia Reactions: No Hx Malignant Hyperthermia: No Meds Allergies/Adverse Reactions: Allergies Allergy/AdvReac Type Severity Reaction Status Date / Time amoxicillin [From Augmentin] Allergy ANAPHYLAXIS Verified 12/04/18 12:57 clavulanic acid Allergy ANAPHYLAXIS Verified 12/04/18 12:57 [From Augmentin] doxycycline Allergy ANAPHYLAXIS Verified 12/04/18 12:57 shellfish derived Allergy ANAPHYLAXIS Verified 12/04/18 12:57 - Medications Medications: Current Medications Hydromorphone HCl (Dilaudid) 0.5 mg IVP Q4H PRN PRN Reason: Pain, moderate (4-7) Sodium Chloride (Sodium Chloride 0.9%) 1,000 mls @ 100 mls/hr IV .Q10H MADHAVI Ondansetron HCl (Zofran Inj) 4 mg IVP Q4 PRN PRN Reason: Nausea/Vomiting Physical Exam - Constitutional Appears: No Acute Distress - Head Exam Head Exam: ATRAUMATIC, NORMAL INSPECTION, NORMOCEPHALIC - Eye Exam Eye Exam: EOMI, Normal appearance, PERRL Pupil Exam: NORMAL ACCOMODATION, PERRL - ENT Exam ENT Exam: Mucous Membranes Moist, Normal Exam - Neck Exam Neck exam: Positive for: Normal Inspection - Respiratory Exam Respiratory Exam: NORMAL BREATHING PATTERN - Cardiovascular Exam Cardiovascular Exam: REGULAR RHYTHM - GI/Abdominal Exam GI & Abdominal Exam: Hernia, Soft, Tenderness. absent: Diminished Bowel Sounds, Distended, Firm, Guarding, Hypoactive Bowel Sounds, Mass, Organomegaly, Puls atile Mass, Rebound, Rigid Additional comments: Stoma on R side. pink. Small amount of dark fluids. gas present. No skin changes. No bleeding - Exam Exam: NORMAL INSPECTION (Noble in place ) - Extremities Exam Extremities exam: Positive for: pedal edema, tenderness. Negative for: full ROM - Back Exam Back exam: NORMAL INSPECTION - Neurological Exam Neurological exam: Alert, CN II-XII Intact, Oriented x3 - Psychiatric Exam Psychiatric exam: Normal Affect, Normal Mood - Skin Skin Exam: Dry, Erythema, Intact, Warm Results - Vital Signs Recent Vital Signs: Last Vital Signs Temp 98.4 F 12/04/18 00:28 Pulse 104 H 12/04/18 00:28 Resp 20 12/04/18 00:28 BP 161/83 H 12/04/18 00:28 Pulse Ox 100 12/04/18 00:28 - Labs Result Diagrams: 12/04/18 01:06 12/04/18 01:06 Labs: Laboratory Results - last 24 hr 12/04/18 12/04/18 01:06 01:06 WBC 13.2 H D RBC 3.08 L Hgb 9.0 L D Hct 28.8 L MCV 93.5 MCH 29.2 MCHC 31.3 RDW 16.9 H Plt Count 278 MPV 8.8 Sodium 130 L Potassium 4.6 Chloride 100 Carbon Dioxide 21 Anion Gap 13 BUN 47 H Creatinine 1.7 H Est GFR ( Amer) 36 Est GFR (Non-Af Amer) 30 Random Glucose 254 H Calcium 8.3 L Total Bilirubin 0.3 AST 21 ALT 7 Alkaline Phosphatase 123 Total Protein 6.3 Albumin 2.9 L Globulin 3.4 Albumin/Globulin Ratio 0.8 L Lipase 35 Assessment & Plan - Assessment and Plan (Free Text) Assessment: partial SBO 2/2 parastomal hernia Based on NSQIP, risk of surgical complication is 20% -NPO -IVF -pain control -ambulate -Medical management -MOnitor VS, stoma output, abd pain, distension -We will monitor -Conservative management for now. May require surgery if sxs worsen. WIll DW Dr. Mercado <Segundo Mercado - Last Filed: 12/05/18 10:18> Meds - Medications Medications: Current Medications Acetaminophen (Tylenol 325mg Tab) 650 mg PO Q6H PRN PRN Reason: Pain, moderate (4-7) Last Admin: 12/04/18 21:00 Dose: 650 mg Atorvastatin Calcium (Lipitor) 40 mg PO DAILY [facility] Last Admin: 12/05/18 09:18 Dose: 40 mg Bumetanide (Bumex) 2 mg PO BID [facility] Last Admin: 12/05/18 09:17 Dose: 2 mg Calcitriol (Rocaltrol) 0.25 mcg PO [facility] Last Admin: 12/04/18 11:07 Dose: 0.25 mcg Calcium Carbonate (Oscal) 500 mg PO DAILY [facility] Last Admin: 12/05/18 09:19 Dose: 500 mg Dextrose (Dextrose 50% Inj) 0 ml IV STAT PRN; Protocol PRN Reason: Hypoglycemia Protocol Digoxin (Digoxin) 0.125 mg PO [facility] Last Admin: 12/04/18 11:08 Dose: 0.125 mg Hydromorphone HCl (Dilaudid) 0.5 mg IVP Q4H PRN PRN Reason: Pain, moderate (4-7) Last Admin: 12/05/18 03:40 Dose: 0.5 mg Sodium Chloride (Sodium Chloride 0.9%) 1,000 mls @ 60 mls/hr IV .[id number] [facility] Last Admin: 12/04/18 05:44 Dose: 60 mls/hr Dextrose (Dextrose 5% In Water 1000 Ml) 1,000 mls @ 0 mls/hr IV .Q0M PRN; Protocol PRN Reason: Hypoglycemia Protocol Dobutamine HCl 250 mg/ Sodium (Chloride) 250 mls @ 19.92 mls/hr IV .[id number] [facility] Last Admin: 12/04/18 21:26 Dose: 19.92 mls/hr Insulin Human Regular (Humulin R Low) 0 units [place] [facility]; Protocol Last Admin: 12/05/18 09:18 Dose: Not Given Isosorbide Mononitrate (Imdur) 120 mg PO DAILY [facility] Last Admin: 12/05/18 09:55 Dose: 120 mg Metoprolol Succinate (Toprol Xl) 100 mg PO DAILY [facility] Last Admin: 12/05/18 09:19 Dose: 100 mg Ondansetron HCl (Zofran Inj) 4 mg IVP Q4 PRN PRN Reason: Nausea/Vomiting Pantoprazole Sodium (Protonix Inj) 40 mg IVP Q12 [facility] Last Admin: 12/05/18 09:19 Dose: 40 mg Primidone (Mysoline) 50 mg PO [facility] Last Admin: 12/04/18 22:10 Dose: 50 mg Tamsulosin HCl (Flomax) 0.4 mg PO [facility] Last Admin: 12/04/18 22:10 Dose: 0.4 mg Results - Vital Signs Recent Vital Signs: Last Vital Signs Temp 97.9 F 12/05/18 08:22 Pulse 97 H 12/05/18 09:19 Resp 20 12/05/18 08:22 BP 132/60 12/05/18 09:19 Pulse Ox 100 12/05/18 08:22 - Labs Result Diagrams: 12/05/18 06:20 12/05/18 06:20 Labs: Laboratory Results - last 24 hr 12/04/18 12/04/18 12/04/18 11:50 13:10 17:36 WBC RBC Hgb Hct MCV MCH MCHC RDW Plt Count MPV Neut % (Auto) Lymph % (Auto) [place] % (Auto) Eos % (Auto) Baso % (Auto) Lymph # (Auto) [place] # (Auto) Eos # (Auto) Baso # (Auto) Absolute Neuts (auto) Sodium Potassium Chloride Carbon Dioxide Anion Gap BUN Creatinine Est GFR ( Amer) Est GFR (Non-Af Amer) POC Glucose (mg/dL) 153 H 180 H Random Glucose Calcium Phosphorus Magnesium Total Bilirubin AST ALT Alkaline Phosphatase Troponin I 0.03 Total Protein Albumin Globulin Albumin/Globulin Ratio Urine Color Urine Appearance Urine pH Ur Specific [place] Urine Protein Urine Glucose (UA) Urine Ketones Urine Blood Urine Nitrate Urine Bilirubin Urine Urobilinogen Ur Leukocyte Esterase Urine RBC Urine WBC Ur Epithelial Cells Urine Bacteria Stool Occult Blood 12/04/18 12/04/18 12/05/18 19:20 22:14 04:41 WBC RBC Hgb Hct MCV MCH MCHC RDW Plt Count MPV Neut % (Auto) Lymph % (Auto) [place] % (Auto) Eos % (Auto) Baso % (Auto) Lymph # (Auto) [place] # (Auto) Eos # (Auto) Baso # (Auto) Absolute Neuts (auto) Sodium Potassium Chloride Carbon Dioxide Anion Gap BUN Creatinine Est GFR ( Amer) Est GFR (Non-Af Amer) POC Glucose (mg/dL) 140 H Random Glucose Calcium Phosphorus Magnesium Total Bilirubin AST ALT Alkaline Phosphatase Troponin I 0.02 D Total Protein Albumin Globulin Albumin/Globulin Ratio Urine Color Yellow Urine Appearance Cloudy Urine pH 6.0 Ur Specific [place] >= 1.030 Urine Protein >=300 H Urine Glucose (UA) Negative Urine Ketones Negative Urine Blood Trace-intact H Urine Nitrate Negative Urine Bilirubin Negative Urine Urobilinogen 0.2 Ur Leukocyte Esterase Moderate H Urine RBC 0 - 2 Urine WBC Tntc H Ur Epithelial Cells 0 - 2 Urine Bacteria Many Stool Occult Blood 12/05/18 12/05/18 12/05/18 06:20 06:20 07:30 WBC 10.5 D RBC 2.62 L Hgb 7.8 L Hct 24.7 L MCV 94.3 MCH 29.8 MCHC 31.6 RDW 17.3 H Plt Count 218 MPV 8.5 Neut % (Auto) 83.7 H Lymph % (Auto) 11.1 L [place] % (Auto) 3.6 Eos % (Auto) 1.4 L Baso % (Auto) 0.2 Lymph # (Auto) 1.2 Gooding # (Auto) 0.4 Eos # (Auto) 0.2 Baso # (Auto) 0.02 Absolute Neuts (auto) 8.81 H Sodium 133 Potassium 4.4 Chloride 106 Carbon Dioxide 20 L Anion Gap 11 BUN 47 H Creatinine 1.7 H Est GFR ( Amer) 36 Est GFR (Non-Af Amer) 30 POC Glucose (mg/dL) Random Glucose 108 Calcium 7.7 L Phosphorus 4.5 Magnesium 1.6 L Total Bilirubin 0.3 AST 25 ALT 7 Alkaline Phosphatase 94 Troponin I Total Protein 5.4 L Albumin 2.4 L Globulin 3.0 Albumin/Globulin Ratio 0.8 L Urine Color Urine Appearance Urine pH Ur Specific [place] Urine Protein Urine Glucose (UA) Urine Ketones Urine Blood Urine Nitrate Urine Bilirubin Urine Urobilinogen Ur Leukocyte Esterase Urine RBC Urine WBC Ur Epithelial Cells Urine Bacteria Stool Occult Blood Positive H 12/05/18 07:47 WBC RBC Hgb Hct MCV MCH MCHC RDW Plt Count MPV Neut % (Auto) Lymph % (Auto) [place] % (Auto) Eos % (Auto) Baso % (Auto) Lymph # (Auto) [place] # (Auto) Eos # (Auto) Baso # (Auto) Absolute Neuts (auto) Sodium Potassium Chloride Carbon Dioxide Anion Gap BUN Creatinine Est GFR ( Amer) Est GFR (Non-Af Amer) POC Glucose (mg/dL) 130 H Random Glucose Calcium Phosphorus Magnesium Total Bilirubin AST ALT Alkaline Phosphatase Troponin I Total Protein Albumin Globulin Albumin/Globulin Ratio Urine Color Urine Appearance Urine pH Ur Specific [place] Urine Protein Urine Glucose (UA) Urine Ketones Urine Blood Urine Nitrate Urine Bilirubin Urine Urobilinogen Ur Leukocyte Esterase Urine RBC Urine WBC Ur Epithelial Cells Urine Bacteria Stool Occult Blood Assessment & Plan - Assessment and Plan (Free Text) Plan: PSBO/Colostomy hernia/CHF/CRF No plan for surgery now This consult done under my direct supervision Theo Mercado MD FACS
[2018-12-04] MEDS ORDERED: Sodium Chloride 0.9% 1,000 ML IV SCH ×2 (04:00→04:01)
--- NOTE | 2018-12-04 04:52 | CP.PCM.HP ---
<Kevin White - Last Filed: 12/04/18 06:49> History of Present Illness - History of Present Illness History of Present Illness: Medicine History and Physical for Hospitalist Service, Dr. Danielito White, DO PGY-1 This is a 73 y o female with hx multiple comorbidities, CAD s/p CABG, DM2, CHF s/p AICD placement, IDDM, neuropathy, PVD, HLD, ileostomy, chronic hip and knee pain, who presents to the ED with c/o abdominal discomfort that has been present since the am yesterday. Reports she has not had a BM yet today. States she is unable to pass flatus. Denies nausea, episodes of vomiting, or diarrhea since onset of symptoms. Pt has hx of ileostomy in 2013, as per pt's states that stool in bag is usually brown to mustard-like color, states it has been darker recently over the past several days. Denies fever, chills, chest pain, sob, urinary complaints, or other symptoms. 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 Flannery Batt Packer: Dr. Vidales Surgeon: Dr. Mercado Present on Admission - Present on Admission Any Indicators Present on Admission: Yes History of DVT/PE: No History of Uncontrolled Diabetes: No Urinary Catheter: Yes Decubitus Ulcer Present: No Review of Systems - Constitutional Constitutional: absent: Chills, Fatigue, Fever - Cardiovascular Cardiovascular: absent: Chest Pain, Dyspnea on Exertion, Leg Edema, Palpitations - Respiratory Respiratory: absent: Cough, Dyspnea on Exertion, Wheezing - Gastrointestinal Gastrointestinal: Abdominal Pain, Change in Stool Character, Constipation. absent: Diarrhea, Nausea, Vomiting - Genitourinary Genitourinary: absent: Difficulty Urinating, Dysuria Past Patient History - Infectious Disease Hx of Infectious Diseases: None - Tetanus Immunizations Tetanus Immunization: Unknown - Past Medical History & Family History Past Medical History?: Yes - Past Social History Smoking Status: Former Smoker - CARDIAC Hx Cardiac Disorders: Yes Hx Pacemaker: Yes - PULMONARY Hx Respiratory Disorders: No - NEUROLOGICAL Hx Neurological Disorder: No - HEENT Hx HEENT Problems: Yes Hx Cataracts: Yes (bilateral laser sx) - RENAL Hx Chronic Kidney Disease: Yes - ENDOCRINE/METABOLIC Hx Endocrine Disorders: Yes Hx Diabetes Mellitus Type 2: Yes (Neuropathy) - HEMATOLOGICAL/ONCOLOGICAL Hx Cancer: No - INTEGUMENTARY Other/Comment: STage 3 sacral ulcers. BLE redness w/ scattered scabs. Under breasts folds redness. Bilateral under belly Folds redness skin excoriated - MUSCULOSKELETAL/RHEUMATOLOGICAL Hx Falls: No - GASTROINTESTINAL Hx Gastrointestinal Disorders: Yes (umbilical hernia ileostomy) Hx Ileostomy: Yes - GENITOURINARY/GYNECOLOGICAL Hx Genitourinary Disorders: Yes (noble) Hx Reproductive Disorders: No - PSYCHIATRIC Hx Psychophysiologic Disorder: No Hx Substance Use: No - SURGICAL HISTORY Hx Mastectomy: No - ANESTHESIA Hx Anesthesia: Yes Hx Anesthesia Reactions: No Hx Malignant Hyperthermia: No Meds Allergies/Adverse Reactions: Allergies Allergy/AdvReac Type Severity Reaction Status Date / Time amoxicillin [From Augmentin] Allergy ANAPHYLAXIS Verified 07/29/18 20:50 clavulanic acid Allergy ANAPHYLAXIS Verified 07/29/18 20:50 [From Augmentin] doxycycline Allergy ANAPHYLAXIS Verified 04/29/18 21:11 shellfish derived Allergy ANAPHYLAXIS Verified 04/29/18 21:11 Physical Exam - Constitutional Appears: Non-toxic, No Acute Distress, Chronically Ill - Head Exam Head Exam: ATRAUMATIC, NORMOCEPHALIC - Eye Exam Eye Exam: EOMI, Normal appearance, PERRL - ENT Exam ENT Exam: Mucous Membranes Moist - Respiratory Exam Respiratory Exam: Clear to Auscultation Bilateral, NORMAL BREATHING PATTERN. absent: Rales, Rhonchi, Wheezes - Cardiovascular Exam Cardiovascular Exam: REGULAR RHYTHM, +S1, +S2. absent: Gallop, Rubs, Systolic Murmur - GI/Abdominal Exam GI & Abdominal Exam: Normal Bowel Sounds, Soft. absent: Distended, Organomegaly, Tenderness Additional comments: Colostomy bag present in area of RLQ, filled with dark-colored stool - Extremities Exam Extremities exam: Positive for: normal capillary refill, pedal pulses present. Negative for: calf tenderness, pedal edema Additional comments: Chronic atrophic changes noted on anterior shins of LEs b/l - Neurological Exam Neurological exam: Alert, CN II-XII Intact, Oriented x3 - Psychiatric Exam Psychiatric exam: Normal Affect, Normal Mood - Skin Skin Exam: Dry, Intact, Warm Results - Vital Signs Recent Vital Signs: Last Vital Signs Temp 98.4 F 12/04/18 00:28 Pulse 91 H 12/04/18 04:03 Resp 18 12/04/18 04:03 BP 127/61 12/04/18 04:03 Pulse Ox 99 12/04/18 04:03 - Labs Result Diagrams: 12/04/18 01:06 12/04/18 01:06 Labs: Laboratory Results - last 24 hr 12/04/18 12/04/18 01:06 01:06 WBC 13.2 H D RBC 3.08 L Hgb 9.0 L D Hct 28.8 L MCV 93.5 MCH 29.2 MCHC 31.3 RDW 16.9 H Plt Count 278 MPV 8.8 Sodium 130 L Potassium 4.6 Chloride 100 Carbon Dioxide 21 Anion Gap 13 BUN 47 H Creatinine 1.7 H Est GFR ( Amer) 36 Est GFR (Non-Af Amer) 30 Random Glucose 254 H Calcium 8.3 L Total Bilirubin 0.3 AST 21 ALT 7 Alkaline Phosphatase 123 Total Protein 6.3 Albumin 2.9 L Globulin 3.4 Albumin/Globulin Ratio 0.8 L Lipase 35 Assessment & Plan - Assessment and Plan (Free Text) Assessment: This is a 73 y o female with hx multiple comorbidities, CAD s/p CABG, DM2, CHF s/p AICD placement, IDDM, neuropathy, PVD, HLD, ileostomy, chronic hip and knee pain, who presents to the ED with c/o abdominal discomfort that has been present since the am yesterday. Found to have partial SBO on CT scan, admitted for management. General Surgery, Cardiology consulted. Plan: Partial SBO -Admit to tele -CT abd/pelvis: Interval appearance of moderate partial SBO, transition zone in R peristomal hernia of anterior abdominal wall overlying RLQ at site of colostomy, no evidence of incarceration or pneumatosis intestinalis -General Surgery consulted (Dr. Mercado), recs appreciated -NPO -IVF at 60 cc/hr -Cont to monitor bowel function -Consider NGT depending on worsening clinical status -Leukocytosis on admission -Dilaudid prn for pain control -Zofran prn for nausea Hx CAD s/p CABG, AICD, end-stage dilated cardiomyopathy -EKG on admission demonstrated T-wave inversions in lateral leads, slightly deeper than prior study -Trops ordered x3, cont to trend -Pt not c/o chest pain or dyspnea on exertion at this time -C/w home medication Dobutamine drip at rate of 5 (non-titrated) -Cardiology consulted (Dr. Vidales), recs appreciated -C/w ASA daily -C/w Digoxin daily, digoxin level pending -C/w Toprol XL bid -C/w Imdur daily -Repeat EKG in 24 hrs Hx CKD stage 4 -BUN/Cr 47/1.7 -Cont to monitor -C/w gentle hydration Hx colostomy -FOBT ordered for dark stool in colostomy bag, f/u results Hx chronic noble catheter placement -Etiology uncertain, possible urinary retention, per chart pt was treated for UTI with colonization of E. faecalis on prior admission -Recommend to d/c noble at this time, monitor for voiding, bladder scan ordered, if unable to void in 6 hrs, will insert new noble at that time -C/w home med Flomax daily Hx DM2 -Pt NPO -ISS: low -Fingersticks achs DVT/GI ppx: Protonix/SCD Pt seen, examined with, and plan discussed with Dr. Esteves, attending physician. Kevin White DO PGY-1, [employer] Pager #[phone] <Antonette Esteves - Last Filed: 12/04/18 08:20> Results - Vital Signs Recent Vital Signs: Last Vital Signs Temp 98.4 F 12/04/18 00:28 Pulse 95 H 12/04/18 07:02 Resp 20 12/04/18 07:02 BP 117/62 12/04/18 07:02 Pulse Ox 97 12/04/18 07:02 - Labs Result Diagrams: 12/04/18 01:06 12/04/18 01:06 Labs: Laboratory Results - last 24 hr 12/04/18 12/04/18 12/04/18 01:06 01:06 01:06 WBC 13.2 H D RBC 3.08 L Hgb 9.0 L D Hct 28.8 L MCV 93.5 MCH 29.2 MCHC 31.3 RDW 16.9 H Plt Count 278 MPV 8.8 Sodium 130 L Potassium 4.6 Chloride 100 Carbon Dioxide 21 Anion Gap 13 BUN 47 H Creatinine 1.7 H Est GFR ( Amer) 36 Est GFR (Non-Af Amer) 30 Random Glucose 254 H Calcium 8.3 L Total Bilirubin 0.3 AST 21 ALT 7 Alkaline Phosphatase 123 Troponin I 0.03 D Total Protein 6.3 Albumin 2.9 L Globulin 3.4 Albumin/Globulin Ratio 0.8 L Lipase 35 Attending/Attestation - Attestation I have personally seen and examined this patient.: Yes I have fully participated in the care of the patient.: Yes I have reviewed all pertinent clinical information: Yes Notes (Text): 12/04/18 07:29 Pt seen with the resident by the bedside. Case discussed in detail. Agree with documentation,assessment and plan of treatment
[2018-12-04] MEDS ORDERED: Dextrose 50% SYRINGE Inj (50 ml) IV PRN (05:19)
[2018-12-04] MEDS ORDERED: DOBUTAMINE IV SCH ×2 (05:30→07:30)
[2018-12-04] MEDS ORDERED: DOBUTamine 500mg/250ml D5W 500 MG/250 ML BAG IV PRN ×4 (06:01→07:14)
[2018-12-04 06:48] VITALS: BMI 22.9
[2018-12-04] MEDS ORDERED: SODIUM CHLORIDE 0.9% IV SCH (07:30)
[2018-12-04] MEDS: Insulin Reg-LOW-Coverage SC SCH ×4 (08:01→22:18)
[2018-12-04 08:14] LABS: INR 1.22; PARTIAL THROMBOPLASTIN TIME 33.4 Seconds (26.9-38.3); PROTHROMBIN TIME 13.8 SECONDS (9.4-12.5)
[2018-12-04] MEDS: SODIUM CHLORIDE 0.9% IV SCH ×2 (08:27→21:26)
[2018-12-04] MEDS: DOBUTAMINE IV SCH ×2 (08:27→21:26)
--- NOTE | 2018-12-04 09:44 | CT ---
Date of service: 12/04/2018 PROCEDURE: CT Abdomen and Pelvis without intravenous contrast HISTORY: Unspecified abdominal pain. COMPARISON: 11/30/2013 CT abdomen and pelvis. 03/19/2018 abdominal ultrasound. TECHNIQUE: Unenhanced. Neither IV nor oral contrast administered Radiation dose: Total exam DLP = 509.99 mGy-cm. This CT exam was performed using one or more of the following dose reduction techniques: Automated exposure control, adjustment of the mA and/or kV according to patient size, and/or use of iterative reconstruction technique. FINDINGS: LOWER THORAX: Stable cardiomegaly. LIVER: Unremarkable. No gross lesion or ductal dilatation. GALLBLADDER AND BILE DUCTS: Status post cholecystectomy. No abnormality is seen in the gallbladder fossa. PANCREAS: Unremarkable. No gross lesion or ductal dilatation. SPLEEN: Unremarkable. ADRENALS: Unremarkable. No mass. KIDNEYS AND URETERS: Unremarkable. No hydronephrosis. No solid mass. VASCULATURE: Aorto bi-iliac stent graft. Stable/satisfactory position. [place] aortic aneurysm stable, orthogonal measurements 7.1 x 7.3 cm. BOWEL: Large anterior abdominal wall hernia the right containing primarily small bowel. Proximal dilatation identified. More distal loops of ileum are decompressed. The ostomy site at the skin surface is unremarkable. Constipation/fecal impaction. APPENDIX: Not visualized. PERITONEUM: Unremarkable. No free fluid. No free air. LYMPH NODES: Unremarkable. No enlarged lymph nodes. BLADDER: Jaeger catheter identified in satisfactory position within a decompressed urinary bladder. REPRODUCTIVE: Unremarkable. BONES: Compression deformity T12 vertebral body likely chronic. Although not seen on the prior CT scan 11/30/2013. Severe degenerative changes right hip OTHER FINDINGS: None. IMPRESSION: Early/incomplete small bowel obstruction related to hernia, right lower quadrant. No evidence of incarceration. Additional benign and/or incidental findings described above. Concordant findings (preliminary report) provided by [facility].
[2018-12-04] MEDS ORDERED: Metoprolol Succinate 100 mg XL Tab PO SCH (10:00)
[2018-12-04] MEDS: Digoxin 125 mcg (0.125 mg) Tab PO SCH (11:08)
[2018-12-04] MEDS: Metoprolol Succinate 100 mg XL Tab PO SCH (11:09)
--- NOTE | 2018-12-04 16:10 | CP.PCM.PCO ---
Physician Communication Note - Physician Communication Note Physician Communication Note: Pain gone/+BM/Holding off NGT-Surgery
--- NOTE | 2018-12-04 16:22 | CP.PCM.PCO ---
Physician Communication Note - Physician Communication Note Physician Communication Note: Please do straight urinary cath once time
--- NOTE | 2018-12-04 16:44 | CP.PCM.CON ---
History of Present Illness - History of Present Illness History of Present Illness: Seen and examined at the bedside and emergency room, chart reviewed. Request for consult is for anemia, melena. HPI: This is a 73-year-old female with a past medical history that includes AD s/p CABG, cardiomyopathy, CHF s/p pacemaker placement, DM type 2, CKD stage 4, AAA s/p repair, colectomy due to surgical complication came to the emergency room with complaints of abdominal discomfort that started yesterday morning. She complained of ileostomy not passing stool or flatus. At time of visit there is pasty dark stool noted and does now report passing flatus. Usually the stool is brown or change management specialist in color but notice since Sunday the stool appeared dark. No bright red blood noted. Denies N/V. Denies use of NSAIDs, occasional use of Peptobismal prn, once-a-week. Hemaglobin on admission is 9. She denies ever having EGD OR colonoscopy is reluctant to have done if necessary. Patient had ct scan done and report moderate partial SBO, transition zone is right peristomal hernia, no evidence of incarceration or pneumatosis intestinalis. Denies any known weight loss or loss of appetite. PMH: CAD s/p CABG, cardiomyopathy, CHF s/p pacemaker placement, DM type 2, CKD stage 4, AAA s/p repair, colectomy,pancreatitis PSH: CABG, pacemaker placement, colectomy due to surgical complication leading to bowel gangrene, AAA with endovascular repair and stent, cholecystectomy, left toe amputation family History: Mother: Uterine/Breast Ca, Father: CHF, throat Ca, Brother: leukemia, heart transplant social history: Former tobacco use (quit 2000), Denies alcohol and illicit drugs Allergies: Shellfish Endo HX: denies EGD and colon Past Patient History - Infectious Disease Hx of Infectious Diseases: None - Tetanus Immunizations Tetanus Immunization: Unknown - Past Medical History & Family History Past Medical History?: Yes - Past Social History Smoking Status: Former Smoker - CARDIAC Hx Cardiac Disorders: Yes Hx Pacemaker: Yes - PULMONARY Hx Respiratory Disorders: No - NEUROLOGICAL Hx Neurological Disorder: No - HEENT Hx HEENT Problems: Yes Hx Cataracts: Yes (bilateral laser sx) - RENAL Hx Chronic Kidney Disease: Yes - ENDOCRINE/METABOLIC Hx Endocrine Disorders: Yes Hx Diabetes Mellitus Type 2: Yes (Neuropathy) - HEMATOLOGICAL/ONCOLOGICAL Hx Cancer: No - INTEGUMENTARY Other/Comment: STage 3 sacral ulcers. BLE redness w/ scattered scabs. Under breasts folds redness. Bilateral under belly Folds redness skin excoriated - MUSCULOSKELETAL/RHEUMATOLOGICAL Hx Falls: No - GASTROINTESTINAL Hx Gastrointestinal Disorders: Yes (umbilical hernia ileostomy) Hx Ileostomy: Yes - GENITOURINARY/GYNECOLOGICAL Hx Genitourinary Disorders: Yes (noble) Hx Reproductive Disorders: No - PSYCHIATRIC Hx Psychophysiologic Disorder: No Hx Substance Use: No - SURGICAL HISTORY Hx Mastectomy: No - ANESTHESIA Hx Anesthesia: Yes Hx Anesthesia Reactions: No Hx Malignant Hyperthermia: No Meds Allergies/Adverse Reactions: Allergies Allergy/AdvReac Type Severity Reaction Status Date / Time amoxicillin [From Augmentin] Allergy ANAPHYLAXIS Verified 12/04/18 12:57 clavulanic acid Allergy ANAPHYLAXIS Verified 12/04/18 12:57 [From Augmentin] doxycycline Allergy ANAPHYLAXIS Verified 12/04/18 12:57 shellfish derived Allergy ANAPHYLAXIS Verified 12/04/18 12:57 - Medications Medications: Current Medications Atorvastatin Calcium (Lipitor) 40 mg PO DAILY [facility] Last Admin: 12/04/18 11:07 Dose: 40 mg Bumetanide (Bumex) 2 mg PO BID [facility] Last Admin: 12/04/18 11:07 Dose: 2 mg Calcitriol (Rocaltrol) 0.25 mcg PO [facility] Last Admin: 12/04/18 11:07 Dose: 0.25 mcg Calcium Carbonate (Oscal) 500 mg PO DAILY [facility] Last Admin: 12/04/18 11:08 Dose: 500 mg Dextrose (Dextrose 50% Inj) 0 ml IV STAT PRN; Protocol PRN Reason: Hypoglycemia Protocol Digoxin (Digoxin) 0.125 mg PO [facility] Last Admin: 12/04/18 11:08 Dose: 0.125 mg Hydromorphone HCl (Dilaudid) 0.5 mg IVP Q4H PRN PRN Reason: Pain, moderate (4-7) Sodium Chloride (Sodium Chloride 0.9%) 1,000 mls @ 60 mls/hr IV .[id number] [facility] Last Admin: 12/04/18 05:44 Dose: 60 mls/hr Dextrose (Dextrose 5% In Water 1000 Ml) 1,000 mls @ 0 mls/hr IV .Q0M PRN; Protocol PRN Reason: Hypoglycemia Protocol Dobutamine HCl 250 mg/ Sodium (Chloride) 250 mls @ 19.92 mls/hr IV .[id number] [facility] Last Admin: 12/04/18 08:27 Dose: 19.92 mls/hr Insulin Human Regular (Humulin R Low) 0 units SC ACHS [facility]; Protocol Last Admin: 12/04/18 08:01 Dose: Not Given Isosorbide Mononitrate (Imdur) 120 mg PO DAILY [facility] Last Admin: 12/04/18 11:07 Dose: 120 mg Metoprolol Succinate (Toprol Xl) 100 mg PO DAILY [facility] Last Admin: 12/04/18 11:09 Dose: 100 mg Ondansetron HCl (Zofran Inj) 4 mg IVP Q4 PRN PRN Reason: Nausea/Vomiting Pantoprazole Sodium (Protonix Inj) 40 mg IVP Q12 [facility] Last Admin: 12/04/18 11:10 Dose: 40 mg Primidone (Mysoline) 50 mg PO HS [facility] Tamsulosin HCl (Flomax) 0.4 mg PO [facility] Physical Exam - Constitutional Appears: No Acute Distress - Head Exam Head Exam: NORMOCEPHALIC - Eye Exam Eye Exam: Normal appearance. absent: Scleral icterus Pupil Exam: PERRL - ENT Exam ENT Exam: Mucous Membranes Moist - Neck Exam Neck exam: Positive for: Normal Inspection - Respiratory Exam Respiratory Exam: Clear to Auscultation Bilateral, NORMAL BREATHING PATTERN. absent: Respiratory Distress - Cardiovascular Exam Cardiovascular Exam: +S1, +S2 - GI/Abdominal Exam GI & Abdominal Exam: Hernia (nontender), Normal Bowel Sounds, Soft. absent: Organomegaly, Tenderness - Extremities Exam Extremities exam: Positive for: pedal pulses present. Negative for: calf tenderness - Neurological Exam Neurological exam: Alert, Oriented x3 - Skin Skin Exam: Dry, Warm Results - Vital Signs Recent Vital Signs: Last Vital Signs Temp 98.4 F 12/04/18 00:28 Pulse 86 12/04/18 11:09 Resp 16 12/04/18 08:45 BP 132/76 12/04/18 11:09 Pulse Ox 99 12/04/18 08:45 - Labs Result Diagrams: 12/04/18 01:06 12/04/18 01:06 Labs: Laboratory Results - last 24 hr 12/04/18 12/04/18 12/04/18 01:06 01:06 01:06 WBC 13.2 H D RBC 3.08 L Hgb 9.0 L D Hct 28.8 L MCV 93.5 MCH 29.2 MCHC 31.3 RDW 16.9 H Plt Count 278 MPV 8.8 PT INR APTT Sodium 130 L Potassium 4.6 Chloride 100 Carbon Dioxide 21 Anion Gap 13 BUN 47 H Creatinine 1.7 H Est GFR ( Amer) 36 Est GFR (Non-Af Amer) 30 POC Glucose (mg/dL) Random Glucose 254 H Calcium 8.3 L Total Bilirubin 0.3 AST 21 ALT 7 Alkaline Phosphatase 123 Troponin I 0.03 D Total Protein 6.3 Albumin 2.9 L Globulin 3.4 Albumin/Globulin Ratio 0.8 L Lipase 35 Digoxin 12/04/18 12/04/18 12/04/18 07:43 07:50 07:50 WBC RBC Hgb Hct MCV MCH MCHC RDW Plt Count MPV PT 13.8 H INR 1.22 APTT 33.4 Sodium Potassium Chloride Carbon Dioxide Anion Gap BUN Creatinine Est GFR ( Amer) Est GFR (Non-Af Amer) POC Glucose (mg/dL) 191 H Random Glucose Calcium Total Bilirubin AST ALT Alkaline Phosphatase Troponin I Total Protein Albumin Globulin Albumin/Globulin Ratio Lipase Digoxin 0.4 L 12/04/18 12/04/18 11:50 13:10 WBC RBC Hgb Hct MCV MCH MCHC RDW Plt Count MPV PT INR APTT Sodium Potassium Chloride Carbon Dioxide Anion Gap BUN Creatinine Est GFR ( Amer) Est GFR (Non-Af Amer) POC Glucose (mg/dL) 153 H Random Glucose Calcium Total Bilirubin AST ALT Alkaline Phosphatase Troponin I 0.03 Total Protein Albumin Globulin Albumin/Globulin Ratio Lipase Digoxin Assessment & Plan - Assessment and Plan (Free Text) Assessment: ASSESSMENT: Abdominal pain likley secondary to PSBO Partial small bowel obstruction, transition zone Parastomal hernia no incarceration Anemia, with dark appearing stool, r/o GIB Ileostomy CAD s/p CABG DM type II PLAN: refused NG tube earlier, but have BM , no N/V or pain at time of consult. If reoccur consider insertion continue IVF for hydration. continue PPI monitor H/h for overt GI bleeding stool guaic surgical FU, may benefit from EGD when optimal ad if patient agree. Thank you for this consult and for allowing us to participate in your patient care and for allowing us to participate in your paeitn care. Seen and discussed with Dr. Tomas.
[2018-12-04] MEDS ORDERED: Insulin Regular 1 UNITS/0.01 ML ML ONE (18:00)
--- NOTE | 2018-12-04 19:22 | CARD ---
APPROVED REPORT Date of service: 12/04/2018 EKG Measurement Heart [id number] <Conclusion> Normal sinus rhythm Possible Left atrial enlargement ST & T wave abnormality, consider inferolateral ischemia Abnormal ECG
--- NOTE | 2018-12-04 20:44 | CON ---
DATE OF CONSULTATION: 12/04/2018 HISTORY: The patient is a 73-year-old woman with a documented end-stage ischemic dilated cardiomyopathy in the past, has been started on her last admission on IV dobutamine. She has been sent home on IV dobutamine. The patient is status post coronary artery disease with heart surgery in the past. In addition, she suffers from diabetes mellitus and hypercholesterolemia. She denies angina, denies shortness of breath. However, does complain of some abdominal pain. REVIEW OF SYSTEMS: Review of systems is free of cardiac symptomatology. PHYSICAL EXAMINATION: VITAL SIGNS: Blood pressure is 128/60, heart rate is in the 90s. NECK: Negative JVD. LUNGS: Without rales. CARDIAC: Heart rate S1, S2. EXTREMITIES: Without edema. LABORATORY DATA: Laboratories revealed a hemoglobin of 9 with a white count of 13.2, BUN and creatinine are 47 and 1.7. Troponins are negative. Abdominal CT with a partial small bowel obstruction noted. IMPRESSION: 1. Abdominal pain. 2. Questionable partial small bowel obstruction. 3. End-stage ischemic dilated cardiomyopathy. 4. History of congestive heart failure. 5. Coronary artery disease. 6. On IV dobutamine. PLAN: Given these findings, the patient should be treated conservatively. The risk of surgery given her poor LV is high. There is no evidence for CHF at this time. We will continue her on her IV dobutamine. Vinnie Vidales MD
[2018-12-04] MEDS ORDERED: Influenza Vaccine 60 mcg/0.5 mL SYR (4YR UP) IM ONE (23:52)
[2018-12-04] MEDS ORDERED: Pneumococcal 23-Valent Vaccine IM ONE (23:52)
[2018-12-05] MEDS: HYDROmorphone 0.5 mg/0.5 ml ISec IVP PRN ×3 (00:10→20:02)
[2018-12-05 04:58] LABS: URINE BILIRUBIN NEGATIVE (NEGATIVE); URINE BLOOD TRACE-INTACT (NEGATIVE); URINE GLUCOSE (UA) NEGATIVE (NEGATIVE); URINE LEUKOCYTE ESTERASE MODERATE Leu/uL (NEGATIVE); URINE PROTEIN >=300 mg/dL (<30 mg/dL); URINE UROBILINOGEN 0.2 E.U./dL (<1 E.U./dL)
[2018-12-05 05:07] LABS: URINE APPEARANCE CLOUDY (CLEAR); URINE COLOR YELLOW (YELLOW)
[2018-12-05 05:21] LABS: URINE BACTERIA MANY /hpf; URINE EPITHELIAL CELLS 0 - 2 /hpf (0-5); URINE RBC 0 - 2 /hpf (0-2); URINE WBC TNTC /hpf (0-6)
[2018-12-05 06:37] LABS: BASO # 0.02 K/mm3 (0.0-2.0); BASO % 0.2 % (0.0-3.0); EOS # 0.2 (0.0-0.7); EOS % 1.4 % (1.5-5.0); HEMOGLOBIN 7.8 g/dL (12.0-16.0); LYMPH # 1.2 (1.2-3.4); LYMPH % 11.1 % (22.0-35.0); MEAN CELL VOLUME 94.3 fl (80.0-105.0); MEAN CORPUSCULAR HEMOGLOBIN 29.8 pg (25.0-35.0); MEAN CORPUSCULAR HGB CONC 31.6 g/dl (31.0-37.0); MEAN PLATELET VOLUME 8.5 fl (7.0-11.0); MONO # 0.4 (0.1-0.6); MONO % 3.6 % (1.0-6.0); RBC 2.62 10^6/uL (3.5-6.1); RED CELL DISTRIBUTION WIDTH 17.3 % (11.5-14.5); WHITE BLOOD COUNT 10.5 10^3/uL (4.5-11.0)
[2018-12-05 07:09] LABS: ALB/GLOB RATIO 0.8 (1.1-1.8); ALBUMIN 2.4 g/dL (3.0-4.8); CALCIUM 7.7 mg/dL (8.4-10.5)
[2018-12-05] MEDS: Insulin Reg-LOW-Coverage SC SCH ×4 (09:18→21:32)
[2018-12-05] MEDS: Metoprolol Succinate 100 mg XL Tab PO SCH (09:19)
--- NOTE | 2018-12-05 09:25 | RAD ---
Date of service: 12/05/2018 HISTORY: reduced EF on fluids COMPARISON: 10/05/2018 FINDINGS: The right PICC line terminates in the SVC. LUNGS: The lungs are well inflated. There is severe pulmonary venous congestion. There is subsegmental atelectasis in the lung bases. PLEURA: No pleural effusions or pneumothorax. CARDIOVASCULAR: There is severe cardiomegaly. There are aortic atherosclerotic calcifications present. Status post CABG. There is stable position of left-sided AICD. OSSEOUS STRUCTURES: Within normal limits for the patient's age. VISUALIZED UPPER ABDOMEN: Normal. OTHER FINDINGS: None. IMPRESSION: Severe cardiomegaly and pulmonary venous congestion
--- NOTE | 2018-12-05 10:16 | RAD ---
Date of service: 12/05/2018 HISTORY: SBO COMPARISON: None available. FINDINGS: BOWEL: Normal. No obstruction. No free air. Aortic stent graft. BONES: Severe degenerative changes in the right hip OTHER FINDINGS: None. IMPRESSION: No active disease.
[2018-12-05] MEDS: SODIUM CHLORIDE 0.9% IV SCH ×2 (10:55→23:25)
[2018-12-05] MEDS: DOBUTAMINE IV SCH ×2 (10:55→23:25)
[2018-12-05] MEDS ORDERED: levoFLOXacin 500 mg in D5W 500 MG/100 ML BAG IVPB STA (11:32)
[2018-12-05] MEDS ORDERED: Magnesium Sulfate 2 gm/50 ml 2 GM/50 ML BAG IVPB ONE (13:03)
--- NOTE | 2018-12-05 15:50 | CP.PCM.PN ---
Subjective - Date & Time of Evaluation Date of Evaluation: 12/05/18 Time of Evaluation: 09:20 - Subjective Subjective: Surgery progress note, Dr Mercado Patient seen and examined at bedside. Resting comfortably in bed, in NAD. No acute events overnight and abdominal pain/nausea resolved. Denied fever, SOB, CP, palpitations Objective - Vital Signs/Intake and Output Vital Signs (last 24 hours): Temp Pulse Resp BP Pulse Ox 97.9 F 99 H 20 132/60 100 12/05/18 08:22 12/05/18 14:00 12/05/18 08:22 12/05/18 10:55 12/05/18 08:22 Intake and Output: 12/05/18 12/05/18 06:59 18:59 Intake Total 0 Output Total 50 Balance -50 - Medications Medications: Current Medications Acetaminophen (Tylenol 325mg Tab) 650 mg PO Q6H PRN PRN Reason: Pain, moderate (4-7) Last Admin: 12/04/18 21:00 Dose: 650 mg Atorvastatin Calcium (Lipitor) 40 mg PO DAILY [facility] Last Admin: 12/05/18 09:18 Dose: 40 mg Bumetanide (Bumex) 2 mg PO BID [facility] Last Admin: 12/05/18 09:17 Dose: 2 mg Calcitriol (Rocaltrol) 0.25 mcg PO [facility] Last Admin: 12/04/18 11:07 Dose: 0.25 mcg Calcium Carbonate (Oscal) 500 mg PO DAILY [facility] Last Admin: 12/05/18 09:19 Dose: 500 mg Dextrose (Dextrose 50% Inj) 0 ml IV STAT PRN; Protocol PRN Reason: Hypoglycemia Protocol Digoxin (Digoxin) 0.125 mg PO [facility] Last Admin: 12/04/18 11:08 Dose: 0.125 mg Hydromorphone HCl (Dilaudid) 0.5 mg IVP Q4H PRN PRN Reason: Pain, moderate (4-7) Last Admin: 12/05/18 03:40 Dose: 0.5 mg Sodium Chloride (Sodium Chloride 0.9%) 1,000 mls @ 60 mls/hr IV .[id number] [facility] Last Admin: 12/04/18 05:44 Dose: 60 mls/hr Dextrose (Dextrose 5% In Water 1000 Ml) 1,000 mls @ 0 mls/hr IV .Q0M PRN; Protocol PRN Reason: Hypoglycemia Protocol Dobutamine HCl 250 mg/ Sodium (Chloride) 250 mls @ 19.92 mls/hr IV .[id number] [facility] Last Admin: 12/05/18 10:55 Dose: 19.92 mls/hr Levofloxacin/Dextrose (Levaquin 250mg) 250 mg in 50 mls @ 50 mls/hr IVPB DAILY [facility]; Protocol Insulin Human Regular (Humulin R Low) 0 units SC ACHS [facility]; Protocol Last Admin: 12/05/18 12:02 Dose: 2 u Isosorbide Mononitrate (Imdur) 120 mg PO DAILY [facility] Last Admin: 12/05/18 09:55 Dose: 120 mg Magnesium Oxide (Mag-Ox) 400 mg PO BID [facility] Metoprolol Succinate (Toprol Xl) 100 mg PO DAILY [facility] Last Admin: 12/05/18 09:19 Dose: 100 mg Ondansetron HCl (Zofran Inj) 4 mg IVP Q4 PRN PRN Reason: Nausea/Vomiting Pantoprazole Sodium (Protonix Inj) 40 mg IVP Q12 [facility] Last Admin: 12/05/18 09:19 Dose: 40 mg Primidone (Mysoline) 50 mg PO HS [facility] Last Admin: 12/04/18 22:10 Dose: 50 mg Tamsulosin HCl (Flomax) 0.4 mg PO HS [facility] Last Admin: 12/04/18 22:10 Dose: 0.4 mg - Labs Labs: 12/05/18 06:20 12/05/18 06:20 PT 13.8 SECONDS (9.4-12.5) H 12/04/18 07:50 INR 1.22 12/04/18 07:50 APTT 33.4 Seconds (26.9-38.3) 12/04/18 07:50 - Additional Findings Additional findings: - Constitutional Appears: No Acute Distress - Head Exam Head Exam: NORMOCEPHALIC - Eye Exam Eye Exam: Normal appearance. absent: Scleral icterus Pupil Exam: PERRL - ENT Exam ENT Exam: Mucous Membranes Moist - Neck Exam Neck exam: Positive for: Normal Inspection - Respiratory Exam Respiratory Exam: Clear to Auscultation Bilateral, NORMAL BREATHING PATTERN. absent: Respiratory Distress - Cardiovascular Exam Cardiovascular Exam: +S1, +S2 - GI/Abdominal Exam GI & Abdominal Exam: Hernia (nontender), Normal Bowel Sounds, Soft. absent: Organomegaly, Tenderness Stoma on R side. pink. Small amount of dark fluids. gas present. No skin changes. No bleeding - Extremities Exam Extremities exam: Positive for: pedal pulses present. Negative for: calf tenderness - Neurological Exam Neurological exam: Alert, Oriented x3 - Skin Skin Exam: Dry, Warm Assessment and Plan - Assessment and Plan (Free Text) Assessment: 73 y/o female with PSBO/Colostomy hernia. Clinically improving AAA s/p repair colectomy CAD, s/p CABG CHF DM2 CKD stage 4 Plan: -patient is clinically improving, abd pain/nausea resolved, +BM -advance diet to clear liquid -H/H stable, continue monitoring -pain control -GI following -no surgical intervention at this time -further recs per attending surgeon Dr Rogelio Carty, DO
--- NOTE | 2018-12-05 16:49 | CP.PCM.PN ---
Subjective - Date & Time of Evaluation Date of Evaluation: 12/05/18 Time of Evaluation: 09:00 - Subjective Subjective: Gladis Peterson, PGY-1 Medicine Progress Note for Dr. Pablo: Pt was seen and examined this AM. She states that she is feeling better and her abd pain is improving. She states that she has had her bag changed 3 times since last night. She denies any other acute complaints at this time and denies any lightheadedness, dizziness or weakness. She was noted to have a hgb of 7.8, and will be transfused 1unit PRBC. Objective - Vital Signs/Intake and Output Vital Signs (last 24 hours): Temp Pulse Resp BP Pulse Ox 97.6 F 98 H 18 112/65 100 12/05/18 15:53 12/05/18 15:53 12/05/18 15:53 12/05/18 15:53 12/05/18 08:22 Intake and Output: 12/05/18 12/05/18 06:59 18:59 Intake Total 0 Output Total 50 Balance -50 - Medications Medications: Current Medications Acetaminophen (Tylenol 325mg Tab) 650 mg PO Q6H PRN PRN Reason: Pain, moderate (4-7) Last Admin: 12/04/18 21:00 Dose: 650 mg Atorvastatin Calcium (Lipitor) 40 mg PO DAILY [facility] Last Admin: 12/05/18 09:18 Dose: 40 mg Bumetanide (Bumex) 2 mg PO BID [facility] Last Admin: 12/05/18 09:17 Dose: 2 mg Calcitriol (Rocaltrol) 0.25 mcg PO MWF [facility] Last Admin: 12/04/18 11:07 Dose: 0.25 mcg Calcium Carbonate (Oscal) 500 mg PO DAILY [facility] Last Admin: 12/05/18 09:19 Dose: 500 mg Dextrose (Dextrose 50% Inj) 0 ml IV STAT PRN; Protocol PRN Reason: Hypoglycemia Protocol Digoxin (Digoxin) 0.125 mg PO MWF [facility] Last Admin: 12/04/18 11:08 Dose: 0.125 mg Hydromorphone HCl (Dilaudid) 0.5 mg IVP Q4H PRN PRN Reason: Pain, moderate (4-7) Last Admin: 12/05/18 03:40 Dose: 0.5 mg Sodium Chloride (Sodium Chloride 0.9%) 1,000 mls @ 60 mls/hr IV .[id number] [facility] Last Admin: 12/04/18 05:44 Dose: 60 mls/hr Dextrose (Dextrose 5% In Water 1000 Ml) 1,000 mls @ 0 mls/hr IV .Q0M PRN; Protocol PRN Reason: Hypoglycemia Protocol Dobutamine HCl 250 mg/ Sodium (Chloride) 250 mls @ 19.92 mls/hr IV .[id number] [facility] Last Admin: 12/05/18 10:55 Dose: 19.92 mls/hr Levofloxacin/Dextrose (Levaquin 250mg) 250 mg in 50 mls @ 50 mls/hr IVPB DAILY [facility]; Protocol Insulin Human Regular (Humulin R Low) 0 units SC ACHS [facility]; Protocol Last Admin: 12/05/18 12:02 Dose: 2 u Isosorbide Mononitrate (Imdur) 120 mg PO DAILY [facility] Last Admin: 12/05/18 09:55 Dose: 120 mg Magnesium Oxide (Mag-Ox) 400 mg PO BID [facility] Metoprolol Succinate (Toprol Xl) 100 mg PO DAILY [facility] Last Admin: 12/05/18 09:19 Dose: 100 mg Ondansetron HCl (Zofran Inj) 4 mg IVP Q4 PRN PRN Reason: Nausea/Vomiting Pantoprazole Sodium (Protonix Inj) 40 mg IVP Q12 [facility] Last Admin: 12/05/18 09:19 Dose: 40 mg Primidone (Mysoline) 50 mg PO [facility] Last Admin: 12/04/18 22:10 Dose: 50 mg Tamsulosin HCl (Flomax) 0.4 mg PO [facility] Last Admin: 12/04/18 22:10 Dose: 0.4 mg - Labs Labs: 12/05/18 06:20 12/05/18 06:20 PT 13.8 SECONDS (9.4-12.5) H 12/04/18 07:50 INR 1.22 12/04/18 07:50 APTT 33.4 Seconds (26.9-38.3) 12/04/18 07:50 - Constitutional Appears: Non-toxic - Head Exam Head Exam: ATRAUMATIC - Eye Exam Eye Exam: EOMI, Normal appearance, PERRL - Respiratory Exam Respiratory Exam: Clear to Ausculation Bilateral, NORMAL BREATHING PATTERN. absent: Accessory Muscle Use, Prolonged Expiratory Phase, Rales, Rhonchi, Wheezes - Cardiovascular Exam Cardiovascular Exam: RRR, +S1, +S2. absent: Gallop, Rubs - GI/Abdominal Exam Additional comments: Ileostomy bag present in RLQ, has minimal amount of dark colored stool in the bag. - Extremities Exam Extremities Exam: Full ROM, Normal Capillary Refill - Back Exam Back Exam: NORMAL INSPECTION. absent: CVA tenderness (L), CVA tenderness (R) - Neurological Exam Neurological Exam: Alert, Awake, Oriented x3 - Psychiatric Exam Psychiatric exam: Normal Affect, Normal Mood - Skin Skin Exam: Dry, Normal Color, Warm Assessment and Plan - Assessment and Plan (Free Text) Assessment: This is a 73 y o female with hx multiple comorbidities, CAD s/p CABG, DM2, CHF s/p AICD placement, IDDM, neuropathy, PVD, HLD, ileostomy, chronic hip and knee pain, who presents to the ED with c/o abdominal discomfort that has been present since the am yesterday. Found to have partial SBO on CT scan, admitted for management. Pts bowels are now moving well. Transfused 1 unit PRBC, will give l asix after unit of transfusion. Plan: 1) Partial SBO: Improving - Admit to tele - Pt has had multiple BMs last night into today, pts abd pain has also improved - CT abd/pelvis: Interval appearance of moderate partial SBO, transition zone in R peristomal hernia of anterior abdominal wall overlying RLQ at site of colostomy, no evidence of incarceration or pneumatosis intestinalis - General Surgery consulted (Dr. Mercado), recs appreciated - CLD, will monitor if pt can tolerate - IVF at 60 cc/hr - Dilaudid prn for pain control - Zofran prn for nausea 2) Anemia: - Pt is asymptomatic - Pts Hgb droped from 9 to 7.8 - Transfused 1unit PRBC - 20 IV lasix ordered post transfusion - Will cont to monitor in AM 3) Hx CAD s/p CABG, AICD, end-stage dilated cardiomyopathy - EKG on admission demonstrated T-wave inversions in lateral leads, slightly deeper than prior study - Trops (-) x3 - Ptdoes not complain of chest pain or dyspnea on exertion at this time - Cont home medication Dobutamine drip at rate of 5 (non-titrated) - Cardiology consulted (Dr. Vidales), recs appreciated - Cont ASA daily - Cont Digoxin daily - Dig level .4 - Cont Toprol XL bid - Cont Imdur daily 4) Hx CKD stage 4 - BUN/Cr 47/1.7 - Cont to monitor - Cont with gentle hydration 5) Hx colostomy - FOBT (+), will continue to monitor 6) Hx chronic noble catheter placement - Etiology uncertain, possible urinary retention, per chart pt was treated for UTI with colonization of E. faecalis on prior admission - Failed voiding trial s/p removal of noble, floey reinsterted. - Cont home med Flomax daily 7) Hx DM2 - Pt NPO - ISS: low - Fingersticks achs DVT/GI ppx: Protonix/SCD Pt seen, examined with, and plan discussed with Dr. Pablo, attending physician. Gladis Peterson, PGY-1
[2018-12-05] MEDS: Magnesium Oxide 400 mg Tab UD PO SCH (17:13)
--- NOTE | 2018-12-05 17:26 | CP.PCM.CON ---
History of Present Illness - History of Present Illness History of Present Illness: Podiatry consult note for Dr. Vinnie Cortés, 73 y/o female with PMHx of CAD s/p CABG, DM2, CHF s/p AICD placement, IDDM, neuropathy, PVD, HLD, ileostomy, chronic hip and knee pain was seen and evaluated at bedside for a right heel wound. Patient reports she developed the wound over the course of the last three months from being non-ambulatory at a longterm. Patient denies nausea, episodes of vomiting, fever, chills, chest pain, sob, urinary complaints, or other symptoms. Patient family present at bedside. 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, 2016), Port-a-cath placement for milrinone (2014), AAA repair, Ileostomy s/p ischemic colitis and colostomy creation, cataract b/l s/p laser treatment Allergies: Amoxicillin, clavulanic acid, doxycycline, shellfish Soc hx: quit smoking 18 y ago, previously smoked 1 ppx x 30 y; denies EtOH or illicit drug use Review of Systems - Review of Systems All systems: reviewed and no additional remarkable complaints except Review of Systems: As per HPI Past Patient History - Infectious Disease Hx of Infectious Diseases: None - Tetanus Immunizations Tetanus Immunization: Unknown - Past Medical History & Family History Past Medical History?: Yes - Past Social History Smoking Status: Former Smoker - CARDIAC Hx Cardiac Disorders: Yes (CABG,AAA,END STAGE DILATED CARDIOMYOPATHY -IV HOME THERAPHY) Hx Circulatory Problems: Yes Hx Congestive Heart Failure: Yes Hx Mitral Valve Prolapse: Yes Hx Pacemaker: Yes - PULMONARY Hx Respiratory Disorders: Yes (USED TO SMOKE PPD) Hx Pneumonia: Yes - NEUROLOGICAL Hx Neurological Disorder: No - HEENT Hx HEENT Problems: Yes Hx Cataracts: Yes (bilateral laser sx) - RENAL Hx Chronic Kidney Disease: Yes - ENDOCRINE/METABOLIC Hx Endocrine Disorders: Yes Hx Diabetes Mellitus Type 2: Yes (Neuropathy) - HEMATOLOGICAL/ONCOLOGICAL Hx Blood Disorders: Yes Hx Cancer: No - INTEGUMENTARY Other/Comment: STage 3 sacral ulcers H/O HEALED WELL. BLE redness w/ scattered scabs 2-6-19. Under breasts folds redness,MINIMAL 2-6-19. Bilateral under belly Folds redness skin excoriated 2-6-19 HEALED - MUSCULOSKELETAL/RHEUMATOLOGICAL Hx Musculoskeletal Disorders: Yes (L 1ST AND 2ND DIGIT AMPUTATED) Hx Falls: No Hx Unsteady Gait: Yes - GASTROINTESTINAL Hx Gastrointestinal Disorders: Yes (umbilical hernia ileostomy) Hx Ileostomy: Yes - GENITOURINARY/GYNECOLOGICAL Hx Genitourinary Disorders: Yes (noble) - PSYCHIATRIC Hx Psychophysiologic Disorder: No Hx Substance Use: No - SURGICAL HISTORY Hx Surgeries: Yes (L 1ST AND 2ND TOE AMPUTATE,PORT,PICC,3 STENTS.) Hx Mastectomy: No - ANESTHESIA Hx Anesthesia: Yes Hx Anesthesia Reactions: No Hx Malignant Hyperthermia: No Meds Allergies/Adverse Reactions: Allergies Allergy/AdvReac Type Severity Reaction Status Date / Time amoxicillin [From Augmentin] Allergy ANAPHYLAXIS Verified 12/04/18 12:57 clavulanic acid Allergy ANAPHYLAXIS Verified 12/04/18 12:57 [From Augmentin] doxycycline Allergy ANAPHYLAXIS Verified 12/04/18 12:57 shellfish derived Allergy ANAPHYLAXIS Verified 12/04/18 12:57 - Medications Medications: Current Medications Acetaminophen (Tylenol 325mg Tab) 650 mg PO Q6H PRN PRN Reason: Pain, moderate (4-7) Last Admin: 12/04/18 21:00 Dose: 650 mg Atorvastatin Calcium (Lipitor) 40 mg PO DAILY [facility] Last Admin: 12/05/18 09:18 Dose: 40 mg Bumetanide (Bumex) 2 mg PO BID [facility] Last Admin: 12/05/18 17:11 Dose: 2 mg Calcitriol (Rocaltrol) 0.25 mcg PO [facility] Last Admin: 12/04/18 11:07 Dose: 0.25 mcg Calcium Carbonate (Oscal) 500 mg PO DAILY [facility] Last Admin: 12/05/18 09:19 Dose: 500 mg Dextrose (Dextrose 50% Inj) 0 ml IV STAT PRN; Protocol PRN Reason: Hypoglycemia Protocol Digoxin (Digoxin) 0.125 mg PO F [facility] Last Admin: 12/04/18 11:08 Dose: 0.125 mg Hydromorphone HCl (Dilaudid) 0.5 mg IVP Q4H PRN PRN Reason: Pain, moderate (4-7) Last Admin: 12/05/18 03:40 Dose: 0.5 mg Sodium Chloride (Sodium Chloride 0.9%) 1,000 mls @ 60 mls/hr IV .[id number] [facility] Last Admin: 12/04/18 05:44 Dose: 60 mls/hr Dextrose (Dextrose 5% In Water 1000 Ml) 1,000 mls @ 0 mls/hr IV .Q0M PRN; Protocol PRN Reason: Hypoglycemia Protocol Dobutamine HCl 250 mg/ Sodium (Chloride) 250 mls @ 19.92 mls/hr IV .[id number] [facility] Last Admin: 12/05/18 10:55 Dose: 19.92 mls/hr Levofloxacin/Dextrose (Levaquin 250mg) 250 mg in 50 mls @ 50 mls/hr IVPB DAILY [facility]; Protocol Insulin Human Regular (Humulin R Low) 0 units SC ACHS [facility]; Protocol Last Admin: 12/05/18 17:12 Dose: 1 u Isosorbide Mononitrate (Imdur) 120 mg PO DAILY [facility] Last Admin: 12/05/18 09:55 Dose: 120 mg Magnesium Oxide (Mag-Ox) 400 mg PO BID [facility] Last Admin: 12/05/18 17:13 Dose: 400 mg Metoprolol Succinate (Toprol Xl) 100 mg PO DAILY [facility] Last Admin: 12/05/18 09:19 Dose: 100 mg Ondansetron HCl (Zofran Inj) 4 mg IVP Q4 PRN PRN Reason: Nausea/Vomiting Pantoprazole Sodium (Protonix Inj) 40 mg IVP Q12 [facility] Last Admin: 12/05/18 09:19 Dose: 40 mg Primidone (Mysoline) 50 mg PO [facility] Last Admin: 12/04/18 22:10 Dose: 50 mg Tamsulosin HCl (Flomax) 0.4 mg PO [facility] Last Admin: 12/04/18 22:10 Dose: 0.4 mg Physical Exam - Constitutional Appears: Well, Non-toxic, No Acute Distress - Head Exam Head Exam: ATRAUMATIC, NORMOCEPHALIC - Extremities Exam Additional comments: Bilateral Lower Extremity exam VASC: DP and PT 2/4 bilaterally, CFT less than 3 seconds to the remaining digits, no edema noted, TG within normal limits DERM: RIGHT- decubitus tissue injury noted to the right heel, wound is superficial with surrounding erythema, no probe to bone, no malodor, no signs of infection, no drainage, no malodor LEFT- hyperkeratotic lesions noted to the left hallux amputation site, no open wounds, no probe to bone, no malodor, no signs of infection, no drainage, no malodor NEURO: grossly intact bilaterally ORTHO: pain on palpation to the wound site, minimal pain with range of motion, muscular strength 5/5 - Neurological Exam Neurological exam: Alert, Oriented x3 - Psychiatric Exam Psychiatric exam: Normal Affect, Normal Mood Results - Vital Signs Recent Vital Signs: Last Vital Signs Temp 97.6 F 12/05/18 15:53 Pulse 98 H 12/05/18 15:53 Resp 18 12/05/18 15:53 BP 112/65 12/05/18 15:53 Pulse Ox 100 12/05/18 08:22 - Labs Result Diagrams: 12/05/18 06:20 12/05/18 06:20 Labs: Laboratory Results - last 24 hr 12/04/18 12/04/18 12/04/18 17:36 19:20 22:14 WBC RBC Hgb Hct MCV MCH MCHC RDW Plt Count MPV Neut % (Auto) Lymph % (Auto) [place] % (Auto) Eos % (Auto) Baso % (Auto) Lymph # (Auto) [place] # (Auto) Eos # (Auto) Baso # (Auto) Absolute Neuts (auto) Sodium Potassium Chloride Carbon Dioxide Anion Gap BUN Creatinine Est GFR ( Amer) Est GFR (Non-Af Amer) POC Glucose (mg/dL) 180 H 140 H Random Glucose Calcium Phosphorus Magnesium Total Bilirubin AST ALT Alkaline Phosphatase Troponin I 0.02 D Total Protein Albumin Globulin Albumin/Globulin Ratio Urine Color Urine Appearance Urine pH Ur Specific Spray Urine Protein Urine Glucose (UA) Urine Ketones Urine Blood Urine Nitrate Urine Bilirubin Urine Urobilinogen Ur Leukocyte Esterase Urine RBC Urine WBC Ur Epithelial Cells Urine Bacteria Stool Occult Blood Blood Type Antibody Screen Crossmatch BBK History Checked 12/05/18 12/05/18 12/05/18 04:41 06:20 06:20 WBC 10.5 D RBC 2.62 L Hgb 7.8 L Hct 24.7 L MCV 94.3 MCH 29.8 MCHC 31.6 RDW 17.3 H Plt Count 218 MPV 8.5 Neut % (Auto) 83.7 H Lymph % (Auto) 11.1 L [place] % (Auto) 3.6 Eos % (Auto) 1.4 L Baso % (Auto) 0.2 Lymph # (Auto) 1.2 [place] # (Auto) 0.4 Eos # (Auto) 0.2 Baso # (Auto) 0.02 Absolute Neuts (auto) 8.81 H Sodium 133 Potassium 4.4 Chloride 106 Carbon Dioxide 20 L Anion Gap 11 BUN 47 H Creatinine 1.7 H Est GFR ( Amer) 36 Est GFR (Non-Af Amer) 30 POC Glucose (mg/dL) Random Glucose 108 Calcium 7.7 L Phosphorus 4.5 Magnesium 1.6 L Total Bilirubin 0.3 AST 25 ALT 7 Alkaline Phosphatase 94 Troponin I Total Protein 5.4 L Albumin 2.4 L Globulin 3.0 Albumin/Globulin Ratio 0.8 L Urine Color Yellow Urine Appearance Cloudy Urine pH 6.0 Ur Specific Spray >= 1.030 Urine Protein >=300 H Urine Glucose (UA) Negative Urine Ketones Negative Urine Blood Trace-intact H Urine Nitrate Negative Urine Bilirubin Negative Urine Urobilinogen 0.2 Ur Leukocyte Esterase Moderate H Urine RBC 0 - 2 Urine WBC Tntc H Ur Epithelial Cells 0 - 2 Urine Bacteria Many Stool Occult Blood Blood Type Antibody Screen Crossmatch BBK History Checked 12/05/18 12/05/18 12/05/18 07:30 07:47 11:47 WBC RBC Hgb Hct MCV MCH MCHC RDW Plt Count MPV Neut % (Auto) Lymph % (Auto) [place] % (Auto) Eos % (Auto) Baso % (Auto) Lymph # (Auto) [place] # (Auto) Eos # (Auto) Baso # (Auto) Absolute Neuts (auto) Sodium Potassium Chloride Carbon Dioxide Anion Gap BUN Creatinine Est GFR ( Amer) Est GFR (Non-Af Amer) POC Glucose (mg/dL) 130 H 224 H Random Glucose Calcium Phosphorus Magnesium Total Bilirubin AST ALT Alkaline Phosphatase Troponin I Total Protein Albumin Globulin Albumin/Globulin Ratio Urine Color Urine Appearance Urine pH Ur Specific Spray Urine Protein Urine Glucose (UA) Urine Ketones Urine Blood Urine Nitrate Urine Bilirubin Urine Urobilinogen Ur Leukocyte Esterase Urine RBC Urine WBC Ur Epithelial Cells Urine Bacteria Stool Occult Blood Positive H Blood Type Antibody Screen Crossmatch BBK History Checked 12/05/18 12/05/18 13:30 15:38 WBC RBC Hgb Hct MCV MCH MCHC RDW Plt Count MPV Neut % (Auto) Lymph % (Auto) [place] % (Auto) Eos % (Auto) Baso % (Auto) Lymph # (Auto) [place] # (Auto) Eos # (Auto) Baso # (Auto) Absolute Neuts (auto) Sodium Potassium Chloride Carbon Dioxide Anion Gap BUN Creatinine Est GFR ( Amer) Est GFR (Non-Af Amer) POC Glucose (mg/dL) 191 H Random Glucose Calcium Phosphorus Magnesium Total Bilirubin AST ALT Alkaline Phosphatase Troponin I Total Protein Albumin Globulin Albumin/Globulin Ratio Urine Color Urine Appearance Urine pH Ur Specific Spray Urine Protein Urine Glucose (UA) Urine Ketones Urine Blood Urine Nitrate Urine Bilirubin Urine Urobilinogen Ur Leukocyte Esterase Urine RBC Urine WBC Ur Epithelial Cells Urine Bacteria Stool Occult Blood Blood Type AB POSITIVE Antibody Screen Negative Crossmatch See Detail BBK History Checked Patient has bt Assessment & Plan - Assessment and Plan (Free Text) Assessment: 73 y/o female patient seen and evaluated at bedside with Dr. Cortés for right heel wound Plan: Patient seen and evaluated Plan discussed with Dr. Milana Cortés present at bedside to evaluate patient Chart, labs and vitals were reviewed- afebrile, absent leukocytosis at this time Patient wound stable at this time from Podiatric standpoint Patient right heel to be dressed with bactroban and Optifoam Patient advised to use pillow to keep the right heel elevated at all time Patient and family demonstrated verbal understanding Podiatry will continue to follow the patient Thank you for the consult - Date & Time Date: 12/06/18 Time: 07:41
--- NOTE | 2018-12-05 18:37 | PN ---
DATE: 12/05/2018 COVERING FOR: Dr. Vinnie Vidales. SUBJECTIVE: The patient denies any chest pain and no abdominal pain at this time. PHYSICAL EXAMINATION: VITAL SIGNS: Blood pressure 132/60, heart rate 97, temperature 97.9, respirations 20. HEENT: Pale conjunctivae. CHEST: Diminished breath sounds over the bases. HEART: S1, S2. Regular. ABDOMEN: Soft. EXTREMITIES: Trace leg edema. LABORATORY DATA: Today's hemoglobin and hematocrit 7.8 and 24.7, white count and platelet count are within normal limits. Today's SMA-7: Sodium 133, potassium 4.4, chloride 106, CO2 20, glucose 108, BUN 47, creatinine 1.7. Digoxin level 0.4. Today's EKG revealed sinus tachycardia with occasional PVCs with heart rate of 101. Consider lateral ischemic ST-T wave changes. Two sets of troponin's were 0.[address] and pelvic CT scan early/incomplete small bowel obstruction related to hernia, right lower quadrant. No evidence of incarceration. Chest x-ray revealed cardiomegaly, mild CHF, ICD and dual chamber pacemaker. Sternotomy sutures for prior CABG. Echocardiographic study last July revealed moderate to severe left ventricular hypokinesis. Ejection fraction was measured at 30.8% and mild pulmonary hypertension. ASSESSMENT: 1. Improving small bowel obstruction. 2. Cardiomyopathy status post implantable cardioverter-defibrillator placement. 3. Lateral ischemia with two sets of troponin's in borderline range. 4. Chronic renal insufficiency. 5. Uncontrolled diabetes mellitus. RECOMMENDATIONS: The case was discussed with the primary physician, . Continue current Dobutrex infusion. Continue Zaroxolyn 0.125 mg Sunday, Sunday and Sunday. Continue Imdur at 30 mg once a day, IV Levaquin 250 mg daily, Lipitor 40 mg once a day, Toprol-XL at 100 mg once a day. The patient is not a suitable candidate for invasive cardiac workup at this time. Luís Weston MD
--- NOTE | 2018-12-05 18:53 | CARD ---
APPROVED REPORT Date of service: 12/05/2018 EKG Measurement Heart [id number] <Conclusion> Sinus tachycardia with occasional premature ventricular complexes Possible Left atrial enlargement ST & T wave abnormality, consider lateral ischemia Abnormal ECG
[2018-12-06] MEDS: HYDROmorphone 0.5 mg/0.5 ml ISec IVP PRN ×3 (02:08→22:40)
[2018-12-06 07:48] LABS: BASO # 0.01 K/mm3 (0.0-2.0); BASO % 0.1 % (0.0-3.0); EOS # 0.1 (0.0-0.7); EOS % 1.6 % (1.5-5.0); HEMOGLOBIN 8.5 g/dL (12.0-16.0); MEAN CELL VOLUME 93.8 fl (80.0-105.0); MEAN CORPUSCULAR HEMOGLOBIN 29.1 pg (25.0-35.0); MEAN PLATELET VOLUME 9.3 fl (7.0-11.0); MONO # 0.7 (0.1-0.6); MONO % 8.1 % (1.0-6.0); RBC 2.92 10^6/uL (3.5-6.1); WHITE BLOOD COUNT 8.6 10^3/uL (4.5-11.0)
[2018-12-06 08:09] LABS: ALB/GLOB RATIO 0.8 (1.1-1.8); ALBUMIN 2.5 g/dL (3.0-4.8); CALCIUM 7.7 mg/dL (8.4-10.5)
--- NOTE | 2018-12-06 08:09 | CP.PCM.PCO ---
Physician Communication Note - Physician Communication Note Physician Communication Note: No plans from surgery-f/u office
[2018-12-06] MEDS: Insulin Reg-LOW-Coverage SC SCH ×4 (08:36→21:42)
--- NOTE | 2018-12-06 09:07 | CP.PCM.PN ---
Subjective - Date & Time of Evaluation Date of Evaluation: 12/06/18 Time of Evaluation: 07:10 - Subjective Subjective: Surgery Progress note. Dr. Mercado Pt seen and examined at bedside. No events overnight. Wants to eat. Denies any complaints. No N/V/D. No F/C. Has been having output via ostomy. Abd pain improved. Objective - Vital Signs/Intake and Output Vital Signs (last 24 hours): Temp Pulse Resp BP Pulse Ox 97.9 F 100 H 20 126/76 100 12/06/18 06:00 12/06/18 06:00 12/06/18 06:00 12/06/18 06:00 12/06/18 06:00 Intake and Output: 12/06/18 12/06/18 06:59 18:59 Intake Total 1320 Output Total 400 Balance 920 - Medications Medications: Current Medications Acetaminophen (Tylenol 325mg Tab) 650 mg PO Q6H PRN PRN Reason: Pain, moderate (4-7) Last Admin: 12/04/18 21:00 Dose: 650 mg Atorvastatin Calcium (Lipitor) 40 mg PO DAILY [facility] Last Admin: 12/05/18 09:18 Dose: 40 mg Bumetanide (Bumex) 2 mg PO BID [facility] Last Admin: 12/05/18 17:11 Dose: 2 mg Calcitriol (Rocaltrol) 0.25 mcg PO [facility] Last Admin: 12/04/18 11:07 Dose: 0.25 mcg Calcium Carbonate (Oscal) 500 mg PO DAILY [facility] Last Admin: 12/05/18 09:19 Dose: 500 mg Dextrose (Dextrose 50% Inj) 0 ml IV STAT PRN; Protocol PRN Reason: Hypoglycemia Protocol Digoxin (Digoxin) 0.125 mg PO [facility] Last Admin: 12/04/18 11:08 Dose: 0.125 mg Hydromorphone HCl (Dilaudid) 0.5 mg IVP Q4H PRN PRN Reason: Pain, moderate (4-7) Last Admin: 12/06/18 02:08 Dose: 0.5 mg Sodium Chloride (Sodium Chloride 0.9%) 1,000 mls @ 60 mls/hr IV .[id number] [facility] Last Admin: 12/04/18 05:44 Dose: 60 mls/hr Dextrose (Dextrose 5% In Water 1000 Ml) 1,000 mls @ 0 mls/hr IV .Q0M PRN; Protocol PRN Reason: Hypoglycemia Protocol Dobutamine HCl 250 mg/ Sodium (Chloride) 250 mls @ 19.92 mls/hr IV .[id number] [facility] Last Admin: 12/05/18 23:25 Dose: 19.92 mls/hr Levofloxacin/Dextrose (Levaquin 250mg) 250 mg in 50 mls @ 50 mls/hr IVPB DAILY [facility]; Protocol Insulin Human Regular (Humulin R Low) 0 units SC ACHS [facility]; Protocol Last Admin: 12/06/18 08:36 Dose: 2 u Isosorbide Mononitrate (Imdur) 120 mg PO DAILY [facility] Last Admin: 12/05/18 09:55 Dose: 120 mg Magnesium Oxide (Mag-Ox) 400 mg PO BID [facility] Last Admin: 12/05/18 17:13 Dose: 400 mg Metoprolol Succinate (Toprol Xl) 100 mg PO DAILY [facility] Last Admin: 12/05/18 09:19 Dose: 100 mg Mupirocin (Bactroban Ointment) 10 gm TOP BID [facility] Ondansetron HCl (Zofran Inj) 4 mg IVP Q4 PRN PRN Reason: Nausea/Vomiting Pantoprazole Sodium (Protonix Inj) 40 mg IVP Q12 [facility] Last Admin: 12/05/18 21:25 Dose: 40 mg Primidone (Mysoline) [address] [facility] Last Admin: 12/05/18 21:25 Dose: 50 mg Tamsulosin HCl (Flomax) 0.[address] [facility] Last Admin: 12/05/18 21:25 Dose: 0.4 mg - Labs Labs: 12/06/18 07:35 12/06/18 07:35 PT 13.8 SECONDS (9.4-12.5) H 12/04/18 07:50 INR 1.22 12/04/18 07:50 APTT 33.4 Seconds (26.9-38.3) 12/04/18 07:50 - Constitutional Appears: Well, Non-toxic, No Acute Distress - Head Exam Head Exam: ATRAUMATIC, NORMAL INSPECTION, NORMOCEPHALIC - Eye Exam Eye Exam: EOMI, Normal appearance. absent: Scleral icterus - ENT Exam ENT Exam: Mucous Membranes Moist - Respiratory Exam Respiratory Exam: NORMAL BREATHING PATTERN. absent: Accessory Muscle Use, Respiratory Distress - GI/Abdominal Exam GI & Abdominal Exam: Soft. absent: Distended, Firm, Guarding, Rigid, Tenderness, Rebound Additional comments: ostomy with brown stool output. Abd non-tender and non-distended. - Extremities Exam Extremities Exam: Normal Inspection. absent: Calf Tenderness - Neurological Exam Neurological Exam: Alert, Awake, Oriented x3 - Psychiatric Exam Psychiatric exam: Normal Affect, Normal Mood - Skin Skin Exam: Dry, Intact, Normal Color, Warm Assessment and Plan - Assessment and Plan (Free Text) Assessment: 73yo F with partial bowel obstruction, resolved and chronic parastomal hernia. Plan: - No planned surgical intervention at this present time - Upon discharge can follow up with Dr. Mercado, in office. Call for appointment - Medical management as per Primary team Further recs as per Dr. Rogelio Stark PGY2 surgery
[2018-12-06] MEDS: Magnesium Oxide 400 mg Tab UD PO SCH ×2 (09:58→17:45)
[2018-12-06] MEDS: Metoprolol Succinate 100 mg XL Tab PO SCH (09:58)
[2018-12-06] MEDS: Digoxin 125 mcg (0.125 mg) Tab PO SCH (09:59)
[2018-12-06] MEDS ORDERED: levoFLOXacin 250 mg in D5W 250 MG/50 ML BAG IVPB SCH (10:00)
--- NOTE | 2018-12-06 10:07 | RAD ---
Date of service: 12/06/2018 HISTORY: reduced EF on fluids COMPARISON: No prior. FINDINGS: LUNGS: No active pulmonary disease. PLEURA: No significant pleural effusion identified, no pneumothorax apparent. CARDIOVASCULAR: Aortic calcification. Dual lead pacemaker Mild cardiomegaly no pulmonary vascular congestion. OSSEOUS STRUCTURES: Sternal wires VISUALIZED UPPER ABDOMEN: Normal. OTHER FINDINGS: None. IMPRESSION: No active disease.
[2018-12-06 10:46] LABS: IRON 64 ug/dL (45-180)
[2018-12-06 11:03] LABS: % IRON SATURATION 29 % (20-55); TOTAL IRON BINDING CAPACITY 220 ug/dL (265-497)
--- NOTE | 2018-12-06 11:16 | RAD ---
Date of service: 12/06/2018 HISTORY: SBO COMPARISON: 12/05/2018 FINDINGS: BOWEL: Normal. No obstruction. No free air. BONES: Severe degenerative changes in the right hip OTHER FINDINGS: Aortic stent graft. IMPRESSION: No active disease.
--- NOTE | 2018-12-06 12:21 | CP.PCM.PN ---
Subjective - Date & Time of Evaluation Date of Evaluation: 12/06/18 Time of Evaluation: 12:18 - Subjective Subjective: Podiatry consult note for Dr. Vinnie Cortés, 73 y/o female was seen and evaluated at bedside for a right heel wound. Patient was seen to be sitting in chair bedside, and denies any acute overnight events. Patient' is present at bedside. Patient states she was comfortable sleeping with the pillow under the leg to offload the heel. Objective - Vital Signs/Intake and Output Vital Signs (last 24 hours): Temp Pulse Resp BP Pulse Ox 97.9 F 104 H 20 126/76 100 12/06/18 06:00 12/06/18 10:00 12/06/18 06:00 12/06/18 09:58 12/06/18 06:00 Intake and Output: 12/06/18 12/06/18 06:59 18:59 Intake Total 1320 Output Total 400 Balance 920 - Medications Medications: Current Medications Acetaminophen (Tylenol 325mg Tab) 650 mg PO Q6H PRN PRN Reason: Pain, moderate (4-7) Last Admin: 12/04/18 21:00 Dose: 650 mg Atorvastatin Calcium (Lipitor) 40 mg PO DAILY [facility] Last Admin: 12/06/18 09:58 Dose: 40 mg Bumetanide (Bumex) 2 mg PO BID [facility] Last Admin: 12/06/18 09:58 Dose: 2 mg Calcitriol (Rocaltrol) 0.25 mcg PO [facility] Last Admin: 12/06/18 09:58 Dose: 0.25 mcg Calcium Carbonate (Oscal) 500 mg PO DAILY [facility] Last Admin: 12/06/18 09:58 Dose: 500 mg Dextrose (Dextrose 50% Inj) 0 ml IV STAT PRN; Protocol PRN Reason: Hypoglycemia Protocol Digoxin (Digoxin) 0.125 mg PO [facility] Last Admin: 12/06/18 09:59 Dose: 0.125 mg Hydromorphone HCl (Dilaudid) 0.5 mg IVP Q4H PRN PRN Reason: Pain, moderate (4-7) Last Admin: 12/06/18 02:08 Dose: 0.5 mg Sodium Chloride (Sodium Chloride 0.9%) 1,000 mls @ 60 mls/hr IV .[id number] [facility] Last Admin: 12/04/18 05:44 Dose: 60 mls/hr Dextrose (Dextrose 5% In Water 1000 Ml) 1,000 mls @ 0 mls/hr IV .Q0M PRN; P rotocol PRN Reason: Hypoglycemia Protocol Dobutamine HCl 250 mg/ Sodium (Chloride) 250 mls @ 19.92 mls/hr IV .[id number] [facility] Last Admin: 12/05/18 23:25 Dose: 19.92 mls/hr Levofloxacin/Dextrose (Levaquin 250mg) 250 mg in 50 mls @ 50 mls/hr IVPB DAILY [facility]; Protocol Last Admin: 12/06/18 09:54 Dose: 50 mls/hr Insulin Human Regular (Humulin R Low) 0 units SC ACHS [facility]; Protocol Last Admin: 12/06/18 08:36 Dose: 2 u Isosorbide Mononitrate (Imdur) 120 mg PO DAILY [facility] Last Admin: 12/06/18 09:58 Dose: 120 mg Magnesium Oxide (Mag-Ox) 400 mg PO BID [facility] Last Admin: 12/06/18 09:58 Dose: 400 mg Metoprolol Succinate (Toprol Xl) 100 mg PO DAILY [facility] Last Admin: 12/06/18 09:58 Dose: 100 mg Mupirocin (Bactroban Ointment) 10 gm TOP BID [facility] Ondansetron HCl (Zofran Inj) 4 mg IVP Q4 PRN PRN Reason: Nausea/Vomiting Pantoprazole Sodium (Protonix Inj) 40 mg IVP Q12 [facility] Last Admin: 12/06/18 09:56 Dose: 40 mg Primidone (Mysoline) 50 mg PO [facility] Last Admin: 12/05/18 21:25 Dose: 50 mg Tamsulosin HCl (Flomax) 0.4 mg PO [facility] Last Admin: 12/05/18 21:25 Dose: 0.4 mg - Labs Labs: 12/06/18 07:35 12/06/18 07:35 PT 13.8 SECONDS (9.4-12.5) H 12/04/18 07:50 INR 1.22 12/04/18 07:50 APTT 33.4 Seconds (26.9-38.3) 12/04/18 07:50 - Constitutional Appears: Well, Non-toxic, No Acute Distress - Head Exam Head Exam: ATRAUMATIC, NORMOCEPHALIC - Extremities Exam Additional comments: Bilateral Lower Extremity exam VASC: DP and PT 2/4 bilaterally, CFT less than 3 seconds to the remaining digits, no edema noted, TG within normal limits DERM: RIGHT- Stage 2 decubitus tissue injury noted to the right heel, wound is superficial with surrounding erythema, no probe to bone, no malodor, no signs of infection, no drainage, no malodor LEFT- hyperkeratotic lesions noted to the left hallux amputation site, no open wounds, no probe to bone, no malodor, no signs of infection, no drainage, no malodor NEURO: grossly intact bilaterally ORTHO: pain on palpation to the wound site, minimal pain with range of motion, muscular strength 5/5 - Neurological Exam Neurological Exam: Alert, Awake, Oriented x3 - Psychiatric Exam Psychiatric exam: Normal Affect, Normal Mood Assessment and Plan - Assessment and Plan (Free Text) Assessment: 73 y/o female patient seen and evaluated at bedside for stable right heel wound Plan: Patient seen and evaluated Plan discussed with Dr. Cortés Chart, labs and vitals were reviewed- afebrile, absent leukocytosis at this time Patient wound stable at this time from Podiatric standpoint Patient right heel to be dressed with bactroban and Optifoam Patient advised to use pillow to keep the right heel elevated at all time Patient and family demonstrated verbal understanding Podiatry will continue to follow the patient
[2018-12-06] MEDS: Mupirocin 2% Ointment 15 GM TUBE TOP SCH ×2 (12:24→17:46)
[2018-12-06] MEDS: DOBUTAMINE IV SCH (12:27)
[2018-12-06] MEDS: SODIUM CHLORIDE 0.9% IV SCH (12:27)
--- NOTE | 2018-12-06 14:07 | CP.PCM.PCO ---
Physician Communication Note - Physician Communication Note Physician Communication Note: PT rec [facility]OOK, possible EGD next wk, repeat labs
--- NOTE | 2018-12-06 16:40 | CP.PCM.PN ---
<Gladis Peterson - Last Filed: 12/06/18 17:20> Subjective - Date & Time of Evaluation Date of Evaluation: 12/06/18 Time of Evaluation: 10:00 - Subjective Subjective: Gladis Peterson, PGY-1 Medicine Progress Note for Dr. Saenz: Pt was seen and examined this AM. She states that she is feeling better and her abd pain is improving. She states that she has had her bag changed 3 times since last night. She denies any other acute complaints at this time and denies any lightheadedness, dizziness or weakness. She has responded appropriately to 1unit PRBC. She has no other acute complaints at this time. Per GI, outpt endoscopy on Sunday. Objective - Vital Signs/Intake and Output Vital Signs (last 24 hours): Temp Pulse Resp BP Pulse Ox 97.9 F 99 H 20 133/73 100 12/06/18 06:00 12/06/18 12:27 12/06/18 06:00 12/06/18 12:27 12/06/18 06:00 Intake and Output: 12/06/18 12/06/18 06:59 18:59 Intake Total 1320 Output Total 400 Balance 920 - Medications Medications: Current Medications Acetaminophen (Tylenol 325mg Tab) 650 mg PO Q6H PRN PRN Reason: Pain, moderate (4-7) Last Admin: 12/04/18 21:00 Dose: 650 mg Atorvastatin Calcium (Lipitor) 40 mg PO DAILY [facility] Last Admin: 12/06/18 09:58 Dose: 40 mg Bumetanide (Bumex) 2 mg PO BID [facility] Last Admin: 12/06/18 09:58 Dose: 2 mg Calcitriol (Rocaltrol) 0.25 mcg PO MWF [facility] Last Admin: 12/06/18 09:58 Dose: 0.25 mcg Calcium Carbonate (Oscal) 500 mg PO DAILY [facility] Last Admin: 12/06/18 09:58 Dose: 500 mg Dextrose (Dextrose 50% Inj) 0 ml IV STAT PRN; Protocol PRN Reason: Hypoglycemia Protocol Digoxin (Digoxin) 0.125 mg PO MWF [facility] Last Admin: 12/06/18 09:59 Dose: 0.125 mg Hydromorphone HCl (Dilaudid) 0.5 mg IVP Q4H PRN PRN Reason: Pain, moderate (4-7) Last Admin: 12/06/18 02:08 Dose: 0.5 mg Sodium Chloride (Sodium Chloride 0.9%) 1,000 mls @ 60 mls/hr IV .[id number] [facility] Last Admin: 12/04/18 05:44 Dose: 60 mls/hr Dextrose (Dextrose 5% In Water 1000 Ml) 1,000 mls @ 0 mls/hr IV .Q0M PRN; Protocol PRN Reason: Hypoglycemia Protocol Dobutamine HCl 250 mg/ Sodium (Chloride) 250 mls @ 19.92 mls/hr IV .[id number] [facility] Last Admin: 12/06/18 12:27 Dose: 19.92 mls/hr Levofloxacin/Dextrose (Levaquin 250mg) 250 mg in 50 mls @ 50 mls/hr IVPB DAILY [facility]; Protocol Last Admin: 12/06/18 09:54 Dose: 50 mls/hr Insulin Human Regular (Humulin R Low) 0 units SC ACHS [facility]; Protocol Last Admin: 12/06/18 12:23 Dose: 3 u Isosorbide Mononitrate (Imdur) 120 mg PO DAILY [facility] Last Admin: 12/06/18 09:58 Dose: 120 mg Magnesium Oxide (Mag-Ox) 400 mg PO BID [facility] Last Admin: 12/06/18 09:58 Dose: 400 mg Metoprolol Succinate (Toprol Xl) 100 mg PO DAILY [facility] Last Admin: 12/06/18 09:58 Dose: 100 mg Mupirocin (Bactroban Ointment) 10 gm TOP BID [facility] Last Admin: 12/06/18 12:24 Dose: 1 appful Ondansetron HCl (Zofran Inj) 4 mg IVP Q4 PRN PRN Reason: Nausea/Vomiting Pantoprazole Sodium (Protonix Inj) 40 mg IVP Q12 [facility] Last Admin: 12/06/18 09:56 Dose: 40 mg Primidone (Mysoline) 50 mg PO HS [facility] Last Admin: 12/05/18 21:25 Dose: 50 mg Tamsulosin HCl (Flomax) 0.4 mg PO HS [facility] Last Admin: 12/05/18 21:25 Dose: 0.4 mg - Labs Labs: 12/06/18 07:35 12/06/18 07:35 PT 13.8 SECONDS (9.4-12.5) H 12/04/18 07:50 INR 1.22 12/04/18 07:50 APTT 33.4 Seconds (26.9-38.3) 12/04/18 07:50 - Constitutional Appears: Non-toxic, No Acute Distress - Head Exam Head Exam: ATRAUMATIC, NORMAL INSPECTION, NORMOCEPHALIC - Eye Exam Eye Exam: EOMI, Normal appearance, PERRL - Respiratory Exam Respiratory Exam: Rales (in lower lobes b/l). absent: Accessory Muscle Use, Rhonchi, Wheezes, Respiratory Distress, Stridor - Cardiovascular Exam Cardiovascular Exam: RRR, +S1, +S2. absent: Gallop, Rubs - GI/Abdominal Exam GI & Abdominal Exam: Soft, Normal Bowel Sounds. absent: Firm, Guarding, Rigid, Tenderness Additional comments: Ileostomy bag present in RLQ, has minimal amount of dark colored stool in the bag. - Extremities Exam Extremities Exam: Full ROM, Normal Capillary Refill - Back Exam Back Exam: NORMAL INSPECTION. absent: CVA tenderness (L), CVA tenderness (R) - Neurological Exam Neurological Exam: Alert, Awake, Oriented x3 - Psychiatric Exam Psychiatric exam: Normal Affect, Normal Mood - Skin Skin Exam: Dry, Normal Color, Warm Assessment and Plan - Assessment and Plan (Free Text) Assessment: This is a 73 y o female with hx multiple comorbidities, CAD s/p CABG, DM2, CHF s/p AICD placement, IDDM, neuropathy, PVD, HLD, ileostomy, chronic hip and knee pain, who presents to the ED with c/o abdominal discomfort that has been present since the am yesterday. Found to have partial SBO on CT scan, admitted for management. Pts bowels are now moving well. Transfused 1 unit PRBC, lasix was given. Pt responded appropriately to transfusion. Will have an outpt endoscopy on Sunday. Plan: 1) Partial SBO: Improving - Admit to tele - Pt has had multiple BMs last night into today, pts abd pain has also improved - CT abd/pelvis: Interval appearance of moderate partial SBO, transition zone in R peristomal hernia of anterior abdominal wall overlying RLQ at site of colostomy, no evidence of incarceration or pneumatosis intestinalis - General Surgery consulted (Dr. Mercado), recs appreciated - HHD - IVF at 60 cc/hr - Zofran prn for nausea 2) Gram (+) bacteremia: - PICC line removal, once pts dobutamine can be started on peripheral line - ID on board - Will get repeat cultures and catheter tip culture - Start renally dosed vanc, f/u ID recs. - Repeat BCs 3) UTI: - Pt has hx of chronic Noble which was started by rehab facility - UA shows (+) LE and tntc WBCs - UCx = Gram (-) rods - Started on renally dose levaquin 4) Anemia s/p 1unit PRBC transfusion 12/05: - Pt is asymptomatic - Pt responded appropriately to transfusion - Outpt EGD likely on Sunday - Will cont to monitor in AM 5) Hx CAD s/p CABG, AICD, end-stage dilated cardiomyopathy - EKG on admission demonstrated T-wave inversions in lateral leads, slightly deeper than prior study - Trops (-) x3 - Ptdoes not complain of chest pain or dyspnea on exertion at this time - Cont home medication Dobutamine drip at rate of 5 (non-titrated) - Cardiology consulted (Dr. Vidales), recs appreciated - Cont ASA daily - Cont Digoxin daily - Dig level .4 - Cont Toprol XL bid - Cont Imdur daily 6) Hx CKD stage 4 - BUN/Cr 44/1.8 - Cont to monitor - Cont with gentle hydration 7) Hx colostomy - FOBT (+) - Outpt endoscopy, will be performed likely sunday 8) Hx chronic noble catheter placement - Etiology uncertain, possible urinary retention, per chart pt was treated for UTI with colonization of E. faecalis on prior admission - Failed voiding trial s/p removal of noble, floey reinsterted. - Cont home med Flomax daily 9) Hx DM2 - Pt NPO - ISS: low - Fingersticks achs DVT/GI ppx: Protonix/SCD Pt seen, examined with, and plan discussed with Dr. Saenz, attending physician. Gladis Peterson, PGY-1 <Fidel Saenz - Last Filed: 12/08/18 08:13> Objective - Vital Signs/Intake and Output Vital Signs (last 24 hours): Temp Pulse Resp BP Pulse Ox 98 F 105 H 18 158/92 H 97 12/07/18 08:24 02/09/19 14:00 12/07/18 08:24 12/07/18 10:46 12/07/18 08:24 Intake and Output: 12/07/18 12/07/18 06:59 18:59 Intake Total 3120 Output Total 3125 Balance -5 - Medications Medications: Current Medications Acetaminophen (Tylenol 325mg Tab) 650 mg PO Q6H PRN PRN Reason: Pain, moderate (4-7) Last Admin: 12/04/18 21:00 Dose: 650 mg Atorvastatin Calcium (Lipitor) 40 mg PO DAILY [facility] Last Admin: 12/07/18 10:46 Dose: 40 mg Bumetanide (Bumex) 2 mg PO BID [facility] Last Admin: 12/07/18 11:06 Dose: 2 mg Calcitriol (Rocaltrol) 0.25 mcg PO [facility] Last Admin: 12/06/18 09:58 Dose: 0.25 mcg Calcium Carbonate (Oscal) 500 mg PO DAILY [facility] Last Admin: 12/07/18 10:46 Dose: 500 mg Dextrose (Dextrose 50% Inj) 0 ml IV STAT PRN; Protocol PRN Reason: Hypoglycemia Protocol Digoxin (Digoxin) 0.125 mg PO [facility] Last Admin: 12/06/18 09:59 Dose: 0.125 mg Hydromorphone HCl (Dilaudid) 0.5 mg IVP Q4H PRN PRN Reason: Pain, moderate (4-7) Last Admin: 12/07/18 16:11 Dose: 0.5 mg Dextrose (Dextrose 5% In Water 1000 Ml) 1,000 mls @ 0 mls/hr IV .Q0M PRN; Protocol PRN Reason: Hypoglycemia Protocol Dobutamine HCl 250 mg/ Sodium (Chloride) 250 mls @ 19.92 mls/hr IV .[id number] [facility] Last Admin: 12/07/18 13:39 Dose: 19.92 mls/hr Daptomycin 400 mg/ Sodium (Chloride) 100 mls @ 200 mls/hr IV Q48H [facility] Stop: 12/13/18 10:01 Insulin Human Regular (Humulin R Low) 0 units [facility]; Protocol Last Admin: 12/07/18 13:00 Dose: 2 u Isosorbide Mononitrate (Imdur) 120 mg PO DAILY [facility] Last Admin: 12/07/18 10:46 Dose: 120 mg Magnesium Oxide (Mag-Ox) 400 mg PO BID [facility] Last Admin: 12/07/18 10:46 Dose: 400 mg Metoprolol Succinate (Toprol Xl) 100 mg PO DAILY [facility] Last Admin: 12/07/18 10:46 Dose: 100 mg Mupirocin (Bactroban Ointment) 10 gm TOP BID [facility] Last Admin: 12/07/18 10:47 Dose: 1 appful Ondansetron HCl (Zofran Inj) 4 mg IVP Q4 PRN PRN Reason: Nausea/Vomiting Pantoprazole Sodium (Protonix Inj) 40 mg IVP Q12 [facility] Last Admin: 12/07/18 10:46 Dose: 40 mg Primidone (Mysoline) 50 mg PO HS [facility] Last Admin: 12/06/18 22:39 Dose: 50 mg Tamsulosin HCl (Flomax) 0.4 mg PO [facility] Last Admin: 12/06/18 22:39 Dose: 0.4 mg - Labs Labs: 12/07/18 06:30 12/07/18 06:30 PT 13.8 SECONDS (9.4-12.5) H 12/04/18 07:50 INR 1.22 12/04/18 07:50 APTT 33.4 Seconds (26.9-38.3) 12/04/18 07:50 Attending/Attestation - Attestation I have personally seen and examined this patient.: Yes I have fully participated in the care of the patient.: Yes I have reviewed all pertinent clinical information, including history, physical exam and plan: Yes Notes (Text): 12/06/18 16:57 Partial SBO Gram + bacteremia UTI Acute blood loss anemia End stage dilated cardiomyopathy CKD Chronic noble catheter SBO resolved s/p transfusion with appropriate response in Hgb. Monitor closely for now pts blood culture grew Gram + bacteremia, will need repeat cultures to r/o contamination ID on board, will f/u recommendations GI on board, recommend outpatient EGD c/w dobutamine infusion.
[2018-12-06 16:57] LABS: FOLATE 17.7 ng/mL
[2018-12-06] MEDS ORDERED: Vancomycin 1gm in NS 250ml 1 GM/250 ML BAG IVPB SCH (17:30)
--- NOTE | 2018-12-06 19:17 | PN ---
DATE: 12/06/2018 SUBJECTIVE: The patient denies any chest pain or shortness of breath. She is awaiting endoscopy. PHYSICAL EXAMINATION: VITAL SIGNS: Blood pressure 132/73, heart rate 99, temperature 97.9, and respirations 20. HEENT: Pale conjunctivae. CHEST: Clear. HEART: S1 and S2 regular. EXTREMITIES: No edema. LABORATORY DATA: Hemoglobin and hematocrit 8.5 and 27.4, white count and platelet count are within normal limits. Today's SMA-7; sodium 131, potassium , chloride 105, CO2 of 20, glucose , BUN 44, and creatinine 1.8. Stool occult blood is positive. ASSESSMENT: 1. Improving small bowel obstruction. 2. Cardiomyopathy, status post implantable cardioverter-defibrillator placement. 3. Lateral ischemia with troponin in the borderline range. 4. Chronic renal insufficiency. 5. Diabetes mellitus. RECOMMENDATIONS: Continue current digoxin 0.125 mg Sunday, Sunday, and Sunday. Continue current Dobutrex infusion. Continue Imdur 20 mg once a day, Lipitor 40 mg once a day, Protonix 40 mg intravenous twice a day, and Toprol-XL 100 mg daily. The patient was started on solid diet today. Luís Weston MD
[2018-12-06] MEDS: Aztreonam 1 Gm in NS 100mL 100 ML IVPB SCH (22:38)
[2018-12-07] MEDS: SODIUM CHLORIDE 0.9% IV SCH ×2 (01:38→13:39)
[2018-12-07] MEDS: DOBUTAMINE IV SCH ×2 (01:38→13:39)
[2018-12-07] MEDS: HYDROmorphone 0.5 mg/0.5 ml ISec IVP PRN ×4 (02:52→22:08)
[2018-12-07 07:17] LABS: BASO # 0.01 K/mm3 (0.0-2.0); BASO % 0.1 % (0.0-3.0); EOS # 0.2 (0.0-0.7); EOS % 2.5 % (1.5-5.0); HEMOGLOBIN 8.6 g/dL (12.0-16.0); LYMPH # 0.9 (1.2-3.4); MEAN CELL VOLUME 93.2 fl (80.0-105.0); MEAN CORPUSCULAR HEMOGLOBIN 29.4 pg (25.0-35.0); MEAN CORPUSCULAR HGB CONC 31.5 g/dl (31.0-37.0); MONO # 0.6 (0.1-0.6); MONO % 6.5 % (1.0-6.0); RBC 2.93 10^6/uL (3.5-6.1); RED CELL DISTRIBUTION WIDTH 16.9 % (11.5-14.5); WHITE BLOOD COUNT 9.7 10^3/uL (4.5-11.0)
[2018-12-07 07:48] LABS: ALB/GLOB RATIO 0.8 (1.1-1.8); ALBUMIN 2.6 g/dL (3.0-4.8)
[2018-12-07] MEDS: Insulin Reg-LOW-Coverage SC SCH ×4 (09:03→22:09)
--- NOTE | 2018-12-07 09:17 | RAD ---
Date of service: 12/07/2018 HISTORY: reduced EF on fluids COMPARISON: 12/06/2018 FINDINGS: LUNGS: No active pulmonary disease. PLEURA: No significant pleural effusion identified, no pneumothorax apparent. CARDIOVASCULAR: No aortic atherosclerotic calcification present. Moderate cardiomegaly no pulmonary vascular congestion. OSSEOUS STRUCTURES: Sternal wires VISUALIZED UPPER ABDOMEN: Normal. OTHER FINDINGS: Dual lead pacemaker IMPRESSION: No active disease.
[2018-12-07] MEDS: Aztreonam 1 Gm in NS 100mL 100 ML IVPB SCH (10:45)
[2018-12-07] MEDS: Magnesium Oxide 400 mg Tab UD PO SCH ×2 (10:46→17:27)
[2018-12-07] MEDS: Metoprolol Succinate 100 mg XL Tab PO SCH (10:46)
[2018-12-07] MEDS: Mupirocin 2% Ointment 15 GM TUBE TOP SCH ×2 (10:47→17:27)
--- NOTE | 2018-12-07 12:12 | CP.PCM.PN ---
Subjective - Date & Time of Evaluation Date of Evaluation: 12/07/18 Time of Evaluation: 12:10 - Subjective Subjective: Podiatry consult note for Dr. Vinnie Cortés, 73 y/o female was seen and evaluated at bedside for a right heel wound. Patient denies any acute overnight events. Patient' is present at bedside. Patient states she was comfortable sleeping with the pillow under the leg to offload the heel. Objective - Vital Signs/Intake and Output Vital Signs (last 24 hours): Temp Pulse Resp BP Pulse Ox 98 F 118 H 18 158/92 H 97 12/07/18 08:24 12/07/18 10:46 12/07/18 08:24 12/07/18 10:46 12/07/18 08:24 Intake and Output: 12/07/18 12/07/18 06:59 18:59 Intake Total 3120 Output Total 3125 Balance -5 - Medications Medications: Current Medications Acetaminophen (Tylenol 325mg Tab) 650 mg PO Q6H PRN PRN Reason: Pain, moderate (4-7) Last Admin: 12/04/18 21:00 Dose: 650 mg Atorvastatin Calcium (Lipitor) 40 mg PO DAILY [facility] Last Admin: 12/07/18 10:46 Dose: 40 mg Bumetanide (Bumex) 2 mg PO BID [facility] Last Admin: 12/07/18 11:06 Dose: 2 mg Calcitriol (Rocaltrol) 0.25 mcg PO [facility] Last Admin: 12/06/18 09:58 Dose: 0.25 mcg Calcium Carbonate (Oscal) 500 mg PO DAILY [facility] Last Admin: 12/07/18 10:46 Dose: 500 mg Dextrose (Dextrose 50% Inj) 0 ml IV STAT PRN; Protocol PRN Reason: Hypoglycemia Protocol Digoxin (Digoxin) 0.125 mg PO [facility] Last Admin: 12/06/18 09:59 Dose: 0.125 mg Hydromorphone HCl (Dilaudid) 0.5 mg IVP Q4H PRN PRN Reason: Pain, moderate (4-7) Last Admin: 12/07/18 06:34 Dose: 0.5 mg Dextrose (Dextrose 5% In Water 1000 Ml) 1,000 mls @ 0 mls/hr IV .Q0M PRN; Protocol PRN Reason: Hypoglycemia Protocol Dobutamine HCl 250 mg/ Sodium (Chloride) 250 mls @ 19.92 mls/hr IV .[id number] [facility] Last Admin: 12/07/18 01:38 Dose: 19.92 mls/hr Daptomycin 400 mg/ Sodium (Chloride) 100 mls @ 200 mls/hr IV Q48H [facility] Stop: 12/13/18 10:01 Insulin Human Regular (Humulin R Low) 0 units SC ACHS [facility]; Protocol Last Admin: 12/07/18 09:03 Dose: 1 u Isosorbide Mononitrate (Imdur) 120 mg PO DAILY [facility] Last Admin: 12/07/18 10:46 Dose: 120 mg Magnesium Oxide (Mag-Ox) 400 mg PO BID [facility] Last Admin: 12/07/18 10:46 Dose: 400 mg Metoprolol Succinate (Toprol Xl) 100 mg PO DAILY [facility] Last Admin: 12/07/18 10:46 Dose: 100 mg Mupirocin (Bactroban Ointment) 10 gm TOP BID [facility] Last Admin: 12/07/18 10:47 Dose: 1 appful Ondansetron HCl (Zofran Inj) 4 mg IVP Q4 PRN PRN Reason: Nausea/Vomiting Pantoprazole Sodium (Protonix Inj) 40 mg IVP Q12 [facility] Last Admin: 12/07/18 10:46 Dose: 40 mg Primidone (Mysoline) 50 mg PO HS [facility] Last Admin: 12/06/18 22:39 Dose: 50 mg Tamsulosin HCl (Flomax) 0.4 mg PO HS [facility] Last Admin: 12/06/18 22:39 Dose: 0.4 mg - Labs Labs: 12/07/18 06:30 12/07/18 06:30 PT 13.8 SECONDS (9.4-12.5) H 12/04/18 07:50 INR 1.22 12/04/18 07:50 APTT 33.4 Seconds (26.9-38.3) 12/04/18 07:50 - Constitutional Appears: Well, Non-toxic, No Acute Distress - Head Exam Head Exam: ATRAUMATIC, NORMOCEPHALIC - Extremities Exam Additional comments: Bilateral Lower Extremity exam VASC: DP and PT 2/4 bilaterally, CFT less than 3 seconds to the remaining digits, no edema noted, TG within normal limits DERM: RIGHT- Stage 2 decubitus tissue injury noted to the right heel, wound is superficial with surrounding erythema, no probe to bone, no malodor, no signs of infection, no drainage, no malodor LEFT- hyperkeratotic lesions noted to the left hallux amputation site, no open wounds, no probe to bone, no malodor, no signs of infection, no drainage, no malodor NEURO: grossly intact bilaterally ORTHO: pain on palpation to the wound site, minimal pain with range of motion, muscular strength 5/5 - Neurological Exam Neurological Exam: Alert, Awake, Oriented x3 - Psychiatric Exam Psychiatric exam: Normal Affect, Normal Mood Assessment and Plan - Assessment and Plan (Free Text) Assessment: 73 y/o female patient seen and evaluated at bedside for stable right heel wound Plan: Patient seen and evaluated Plan discussed with Dr. Cortés Chart, labs and vitals were reviewed- afebrile, absent leukocytosis at this time Patient wound stable at this time from Podiatric standpoint Patient right heel to be dressed with bactroban and Optifoam Patient advised to use pillow to keep the right heel elevated at all time Patient and family demonstrated verbal understanding Podiatry will continue to follow the patient
--- NOTE | 2018-12-07 14:04 | CP.PCM.PN ---
<Maurice Lopez - Last Filed: 12/07/18 14:07> Subjective - Date & Time of Evaluation Date of Evaluation: 12/07/18 Time of Evaluation: 14:03 - Subjective Subjective: Patient appears comfortable. No complaints. Tolerating diet. No abdominal pain. Objective - Vital Signs/Intake and Output Vital Signs (last 24 hours): Temp Pulse Resp BP Pulse Ox 98 F 100 H 18 158/92 H 97 12/07/18 08:24 12/07/18 13:39 12/07/18 08:24 12/07/18 10:46 12/07/18 08:24 Intake and Output: 12/07/18 12/07/18 06:59 18:59 Intake Total 3120 Output Total 3125 Balance -5 - Medications Medications: Current Medications Acetaminophen (Tylenol 325mg Tab) 650 mg PO Q6H PRN PRN Reason: Pain, moderate (4-7) Last Admin: 12/04/18 21:00 Dose: 650 mg Atorvastatin Calcium (Lipitor) 40 mg PO DAILY [facility] Last Admin: 12/07/18 10:46 Dose: 40 mg Bumetanide (Bumex) 2 mg PO BID [facility] Last Admin: 12/07/18 11:06 Dose: 2 mg Calcitriol (Rocaltrol) 0.25 mcg PO [facility] Last Admin: 12/06/18 09:58 Dose: 0.25 mcg Calcium Carbonate (Oscal) 500 mg PO DAILY [facility] Last Admin: 12/07/18 10:46 Dose: 500 mg Dextrose (Dextrose 50% Inj) 0 ml IV STAT PRN; Protocol PRN Reason: Hypoglycemia Protocol Digoxin (Digoxin) 0.125 mg PO [facility] Last Admin: 12/06/18 09:59 Dose: 0.125 mg Hydromorphone HCl (Dilaudid) 0.5 mg IVP Q4H PRN PRN Reason: Pain, moderate (4-7) Last Admin: 12/07/18 06:34 Dose: 0.5 mg Dextrose (Dextrose 5% In Water 1000 Ml) 1,000 mls @ 0 mls/hr IV .Q0M PRN; Protocol PRN Reason: Hypoglycemia Protocol Dobutamine HCl 250 mg/ Sodium (Chloride) 250 mls @ 19.92 mls/hr IV .[id number] [facility] Last Admin: 12/07/18 13:39 Dose: 19.92 mls/hr Daptomycin 400 mg/ Sodium (Chloride) 100 mls @ 200 mls/hr IV Q48H [facility] Stop: 12/13/18 10:01 Insulin Human Regular (Humulin R Low) 0 units SC ACHS [facility]; Protocol Last Admin: 12/07/18 13:00 Dose: 2 u Isosorbide Mononitrate (Imdur) 120 mg PO DAILY [facility] Last Admin: 12/07/18 10:46 Dose: 120 mg Magnesium Oxide (Mag-Ox) 400 mg PO BID [facility] Last Admin: 12/07/18 10:46 Dose: 400 mg Metoprolol Succinate (Toprol Xl) 100 mg PO DAILY [facility] Last Admin: 12/07/18 10:46 Dose: 100 mg Mupirocin (Bactroban Ointment) 10 gm TOP BID [facility] Last Admin: 12/07/18 10:47 Dose: 1 appful Ondansetron HCl (Zofran Inj) 4 mg IVP Q4 PRN PRN Reason: Nausea/Vomiting Pantoprazole Sodium (Protonix Inj) 40 mg IVP Q12 [facility] Last Admin: 12/07/18 10:46 Dose: 40 mg Primidone (Mysoline) 50 mg PO [facility] Last Admin: 12/06/18 22:39 Dose: 50 mg Tamsulosin HCl (Flomax) 0.4 mg PO HS [facility] Last Admin: 12/06/18 22:39 Dose: 0.4 mg - Labs Labs: 12/07/18 06:30 12/07/18 06:30 PT 13.8 SECONDS (9.4-12.5) H 12/04/18 07:50 INR 1.22 12/04/18 07:50 APTT 33.4 Seconds (26.9-38.3) 12/04/18 07:50 - Constitutional Appears: Non-toxic, No Acute Distress - Respiratory Exam Respiratory Exam: Clear to Ausculation Bilateral, NORMAL BREATHING PATTERN - Cardiovascular Exam Cardiovascular Exam: REGULAR RHYTHM, +S1, +S2 - GI/Abdominal Exam GI & Abdominal Exam: Soft, Normal Bowel Sounds. absent: Tenderness - Extremities Exam Extremities Exam: Normal Inspection. absent: Pedal Edema - Psychiatric Exam Psychiatric exam: Normal Affect, Normal Mood - Skin Skin Exam: Normal Color, Warm Assessment and Plan - Assessment and Plan (Free Text) Assessment: Abdominal pain likley secondary to PSBO Partial small bowel obstruction, transition zone Parastomal hernia no incarceration Anemia Ileostomy CAD s/p CABG DM type II Bacteremia PLAN: Tolerating diet continue PPI monitor H/h for overt GI bleeding surgical FU may benefit from EGD when optimal ad if patient agree, possibly Sunday. F/U bactermia <Genoveva,Kovil V - Last Filed: 12/08/18 00:53> Objective - Vital Signs/Intake and Output Vital Signs (last 24 hours): Temp Pulse Resp BP Pulse Ox 98.1 F 88 20 139/87 98 12/07/18 20:49 12/07/18 20:49 12/07/18 20:49 12/07/18 20:49 12/07/18 20:49 - Medications Medications: Current Medications Acetaminophen (Tylenol 325mg Tab) 650 mg PO Q6H PRN PRN Reason: Pain, moderate (4-7) Last Admin: 12/04/18 21:00 Dose: 650 mg Atorvastatin Calcium (Lipitor) 40 mg PO DAILY [facility] Last Admin: 12/07/18 10:46 Dose: 40 mg Bumetanide (Bumex) 2 mg PO BID [facility] Last Admin: 12/07/18 17:27 Dose: 2 mg Calcitriol (Rocaltrol) 0.25 mcg PO [facility] Last Admin: 12/06/18 09:58 Dose: 0.25 mcg Calcium Carbonate (Oscal) 500 mg PO DAILY [facility] Last Admin: 12/07/18 10:46 Dose: 500 mg Dextrose (Dextrose 50% Inj) 0 ml IV STAT PRN; Protocol PRN Reason: Hypoglycemia Protocol Digoxin (Digoxin) 0.125 mg PO [facility] Last Admin: 12/06/18 09:59 Dose: 0.125 mg Hydromorphone HCl (Dilaudid) 0.5 mg IVP Q4H PRN PRN Reason: Pain, moderate (4-7) Last Admin: 12/07/18 22:08 Dose: 0.5 mg Dextrose (Dextrose 5% In Water 1000 Ml) 1,000 mls @ 0 mls/hr IV .Q0M PRN; Protocol PRN Reason: Hypoglycemia Protocol Dobutamine HCl 250 mg/ Sodium (Chloride) 250 mls @ 19.92 mls/hr IV .[id number] [facility] Last Admin: 12/07/18 13:39 Dose: 19.92 mls/hr Daptomycin 400 mg/ Sodium (Chloride) 100 mls @ 200 mls/hr IV Q48H [facility] Stop: 12/13/18 10:01 Insulin Human Regular (Humulin R Low) 0 units SC ACHS [facility]; Protocol Last Admin: 12/07/18 22:09 Dose: Not Given Isosorbide Mononitrate (Imdur) 120 mg PO DAILY [facility] Last Admin: 12/07/18 10:46 Dose: 120 mg Magnesium Oxide (Mag-Ox) 400 mg PO BID [facility] Last Admin: 12/07/18 17:27 Dose: 400 mg Metoprolol Succinate (Toprol Xl) 100 mg PO DAILY [facility] Last Admin: 12/07/18 10:46 Dose: 100 mg Mupirocin (Bactroban Ointment) 10 gm TOP BID [facility] Last Admin: 12/07/18 17:27 Dose: 1 applic Ondansetron HCl (Zofran Inj) 4 mg IVP Q4 PRN PRN Reason: Nausea/Vomiting Pantoprazole Sodium (Protonix Inj) 40 mg IVP Q12 [facility] Last Admin: 12/07/18 22:08 Dose: 40 mg Primidone (Mysoline) 50 mg PO HS [facility] Last Admin: 12/07/18 22:08 Dose: 50 mg Tamsulosin HCl (Flomax) 0.4 mg PO HS [facility] Last Admin: 12/07/18 22:08 Dose: 0.4 mg - Labs Labs: 12/07/18 06:30 12/07/18 06:30 PT 13.8 SECONDS (9.4-12.5) H 12/04/18 07:50 INR 1.22 12/04/18 07:50 APTT 33.4 Seconds (26.9-38.3) 12/04/18 07:50 Attending/Attestation - Attestation I have personally seen and examined this patient.: Yes I have fully participated in the care of the patient.: Yes I have reviewed all pertinent clinical information, including history, physical exam and plan: Yes Notes (Text): p 12/08/18 00:52
--- NOTE | 2018-12-07 18:45 | CP.PCM.PN ---
Subjective - Date & Time of Evaluation Date of Evaluation: 12/07/18 Time of Evaluation: 09:15 - Subjective Subjective: Gladis Peterson, PGY-1 Medicine Progress Note for Dr. Saenz: Pt was seen and examined this AM. She states that she is feeling better and her abd pain is improving. She states that she has had her bag changed 3 times since last night. She denies any other acute complaints at this time and denies any lightheadedness, dizziness or weakness. She has responded appropriately to 1unit PRBC. Pt had one bottle of (+) blood cx positive for gram (+) cocci, ID consulted and repeat stat blood cxs ordered. Per GI, outpt endoscopy on Sunday. Objective - Vital Signs/Intake and Output Vital Signs (last 24 hours): Temp Pulse Resp BP Pulse Ox 98.1 F 88 20 139/87 98 12/07/18 18:00 12/07/18 18:00 12/07/18 18:00 12/07/18 18:00 12/07/18 18:00 Intake and Output: 12/07/18 12/07/18 06:59 18:59 Intake Total 3120 Output Total 3125 Balance -5 - Medications Medications: Current Medications Acetaminophen (Tylenol 325mg Tab) 650 mg PO Q6H PRN PRN Reason: Pain, moderate (4-7) Last Admin: 12/04/18 21:00 Dose: 650 mg Atorvastatin Calcium (Lipitor) 40 mg PO DAILY [facility] Last Admin: 12/07/18 10:46 Dose: 40 mg Bumetanide (Bumex) 2 mg PO BID [facility] Last Admin: 12/07/18 17:27 Dose: 2 mg Calcitriol (Rocaltrol) 0.25 mcg PO MWF [facility] Last Admin: 12/06/18 09:58 Dose: 0.25 mcg Calcium Carbonate (Oscal) 500 mg PO DAILY [facility] Last Admin: 12/07/18 10:46 Dose: 500 mg Dextrose (Dextrose 50% Inj) 0 ml IV STAT PRN; Protocol PRN Reason: Hypoglycemia Protocol Digoxin (Digoxin) 0.125 mg PO MWF [facility] Last Admin: 12/06/18 09:59 Dose: 0.125 mg Hydromorphone HCl (Dilaudid) 0.5 mg IVP Q4H PRN PRN Reason: Pain, moderate (4-7) Last Admin: 12/07/18 16:11 Dose: 0.5 mg Dextrose (Dextrose 5% In Water 1000 Ml) 1,000 mls @ 0 mls/hr IV .Q0M PRN; Protocol PRN Reason: Hypoglycemia Protocol Dobutamine HCl 250 mg/ Sodium (Chloride) 250 mls @ 19.92 mls/hr IV .[id number] [facility] Last Admin: 12/07/18 13:39 Dose: 19.92 mls/hr Daptomycin 400 mg/ Sodium (Chloride) 100 mls @ 200 mls/hr IV Q48H [facility] Stop: 12/13/18 10:01 Insulin Human Regular (Humulin R Low) 0 units SC ACHS [facility]; Protocol Last Admin: 12/07/18 17:26 Dose: 1 u Isosorbide Mononitrate (Imdur) 120 mg PO DAILY [facility] Last Admin: 12/07/18 10:46 Dose: 120 mg Magnesium Oxide (Mag-Ox) 400 mg PO BID [facility] Last Admin: 12/07/18 17:27 Dose: 400 mg Metoprolol Succinate (Toprol Xl) 100 mg PO DAILY [facility] Last Admin: 12/07/18 10:46 Dose: 100 mg Mupirocin (Bactroban Ointment) 10 gm TOP BID [facility] Last Admin: 12/07/18 17:27 Dose: 1 applic Ondansetron HCl (Zofran Inj) 4 mg IVP Q4 PRN PRN Reason: Nausea/Vomiting Pantoprazole Sodium (Protonix Inj) 40 mg IVP Q12 [facility] Last Admin: 12/07/18 10:46 Dose: 40 mg Primidone (Mysoline) 50 mg PO HS [facility] Last Admin: 12/06/18 22:39 Dose: 50 mg Tamsulosin HCl (Flomax) 0.4 mg PO HS [facility] Last Admin: 12/06/18 22:39 Dose: 0.4 mg - Labs Labs: 12/07/18 06:30 12/07/18 06:30 PT 13.8 SECONDS (9.4-12.5) H 12/04/18 07:50 INR 1.22 12/04/18 07:50 APTT 33.4 Seconds (26.9-38.3) 12/04/18 07:50 - Constitutional Appears: Non-toxic, No Acute Distress - Head Exam Head Exam: ATRAUMATIC, NORMAL INSPECTION, NORMOCEPHALIC - Eye Exam Eye Exam: EOMI, Normal appearance, PERRL - Respiratory Exam Respiratory Exam: Clear to Ausculation Bilateral, NORMAL BREATHING PATTERN. absent: Accessory Muscle Use, Rales, Rhonchi, Wheezes, Respiratory Distress, Stridor - Cardiovascular Exam Cardiovascular Exam: RRR, +S1, +S2. absent: Gallop, Rubs - GI/Abdominal Exam GI & Abdominal Exam: Soft, Normal Bowel Sounds. absent: Firm, Guarding, Rigid, Tenderness Additional comments: Ileostomy bag present in RLQ, ileostomy is pink and output is noted in bag. No dark stool noted. - Extremities Exam Extremities Exam: Normal Capillary Refill. absent: Calf Tenderness - Back Exam Back Exam: NORMAL INSPECTION. absent: CVA tenderness (L), CVA tenderness (R) - Neurological Exam Neurological Exam: Alert, Awake, Oriented x3 - Psychiatric Exam Psychiatric exam: Normal Affect, Normal Mood - Skin Skin Exam: Dry, Normal Color, Warm Assessment and Plan - Assessment and Plan (Free Text) Assessment: This is a 73 y o female with hx multiple comorbidities, CAD s/p CABG, DM2, CHF s/p AICD placement, IDDM, neuropathy, PVD, HLD, ileostomy, chronic hip and knee pain, who presents to the ED with c/o abdominal discomfort that has been present since the am yesterday. Found to have partial SBO on CT scan, admitted for management. Pts bowels are now moving well. Transfused 1 unit PRBC, lasix was given. Pt responded appropriately to transfusion. Pt had one blood cx bottle (+) for gram (+) cocci, repeat bcxs have been negative. Will f/u with ID recs. Will have an outpt endoscopy on Sunday. Plan: 1) Partial SBO: Improved - Admit to tele - Pt has had multiple BMs last night into today, pts abd pain has also improved - CT abd/pelvis: Interval appearance of moderate partial SBO, transition zone in R peristomal hernia of anterior abdominal wall overlying RLQ at site of colostomy, no evidence of incarceration or pneumatosis intestinalis - General Surgery consulted (Dr. Mercado), recs appreciated - HHD - Zofran prn for nausea 2) Gram (+) bacteremia: - PICC line removal, once pts dobutamine can be started on peripheral line - ID on board - Will get repeat cultures and catheter tip culture - Blood cxs (-) after 24 hours - ID recs appreciated 3) UTI: - Pt has hx of chronic Noble which was started by rehab facility - UA shows (+) LE and tntc WBCs - UCx = Gram (-) rods - ID recs appreciated 4) Anemia s/p 1unit PRBC transfusion 12/05: - Pt is asymptomatic - Pt responded appropriately to transfusion - Outpt EGD likely on Sunday - Will cont to monitor in AM 5) Hx CAD s/p CABG, AICD, end-stage dilated cardiomyopathy - EKG on admission demonstrated T-wave inversions in lateral leads, slightly deeper than prior study - Trops (-) x3 - Ptdoes not complain of chest pain or dyspnea on exertion at this time - Cont home medication Dobutamine drip at rate of 5 (non-titrated) - Cardiology consulted (Dr. Vidales), recs appreciated - Cont ASA daily - Cont Digoxin daily - Dig level .4 - Cont Toprol XL bid - Cont Imdur daily 6) Hx CKD stage 4 - BUN/Cr 44/1.8 - Cont to monitor - Cont with gentle hydration 7) Hx colostomy - FOBT (+) - Outpt endoscopy, will be performed likely sunday 8) Hx chronic noble catheter placement - Etiology uncertain, possible urinary retention, per chart pt was treated for UTI with colonization of E. faecalis on prior admission - Failed voiding trial s/p removal of noble, floey reinsterted. - Cont home med Flomax daily 9) Hx DM2 - Pt NPO - ISS: low - Fingersticks achs DVT/GI ppx: Protonix/SCD Pt seen, examined with, and plan discussed with Dr. Saenz, attending physician. Gladis Peterson, PGY-1
--- NOTE | 2018-12-07 20:22 | CARD ---
APPROVED REPORT Date of service: 12/07/2018 EXAM: Two-dimensional and M-mode echocardiogram with Doppler and color Doppler. INDICATION r/o Vegetations 2D DIMENSIONS Left Atrium (2D)4.7 (1.6-4.0cm)IVSd0.8 (0.7-1.1cm) Aortic Root (2D)3.0 (2.0-3.7cm)LVDd6.6 (3.9-5.9cm) PWd1.0 (0.7-1.1cm)LVDs5.0 (2.5-4.0cm) FS (%) 23.8 %LVEF (%)46.6 (>50%) M-Mode DIMENSIONS Aortic Cusp Exc.1.40 (1.5-2.0cm) Mitral Valve MV E Peak Gr.179mmHg Pulmonary Valve PV Peak Aqrbytqc777.0cm/sPV Peak Grad.6mmHg Tricuspid Valve TR Peak [id number] [id number] Peak Gr.79mmHg [id number] LEFT VENTRICLE The Left Ventricle is moderately dilated. There is normal left ventricular wall thickness. The systolic function is severely impaired. There is global hypokinesis of the left ventricle. Transmitral Doppler flow pattern is abnormal. Spontaneous contrast is noted consistent with the low flow state. RIGHT VENTRICLE The right ventricle is moderately dilated and severly hypokinetic There is a catheter in the right ventricle. ATRIA The left atrium is moderately dilated. The right atrium is moderately dilated. A pacemaker is seen in the right atrium consistent with history. The atrial septum is aneurysmal. AORTIC VALVE The aortic valve is moderately thickened. No aortic regurgitation is present. There is no aortic valvular stenosis. MITRAL VALVE The mitral valve is moderately thickened. Mitral regurgitation is moderate to severe. TRICUSPID VALVE The tricuspid valve is normal in structure. There is severe tricuspid regurgitation. There is severe pulmonary hypertension. PULMONIC VALVE There is trace pulmonic valvular regurgitation. GREAT VESSELS The aortic root is normal in size. PERICARDIAL EFFUSION There is a trace pericardial effusion. <Conclusion> The Left Ventricle is moderately dilated. The systolic function is severely impaired. Spontaneous contrast is noted consistent with the low flow state. The right ventricle is moderately dilated and severly hypokinetic Mitral regurgitation is moderate to severe. There is severe tricuspid regurgitation. There is severe pulmonary hypertension. No vegitation seen
--- NOTE | 2018-12-07 21:41 | PN ---
DATE: 12/07/2018 SUBJECTIVE: The patient is still on Dobutrex infusion. Her breathing is comfortable. No retrosternal chest pain. She has bowel movement and tolerating solid diet. PHYSICAL EXAMINATION: VITAL SIGNS: Blood pressure 158/92, heart rate 118, temperature 98, respirations 20. HEENT: Pale conjunctivae. CHEST: Minimal wheezing and rhonchi. HEART: S1 and S2, regular. EXTREMITIES: No edema. LABORATORY DATA: Today's hemoglobin and hematocrit 8.6 and 27.3, white count and platelet count are within normal limits. Today's BUN and creatinine are 44 and 1.9 respectively. Glucose of 153. Today's chest x-ray report, no active disease. ASSESSMENT: 1. Status post small bowel obstruction which has resolved. 2. Cardiomyopathy, status post implantable cardioverter-defibrillator placement. 3. Lateral ischemic echocardiographic changes with borderline troponin. 5. Chronic insufficiency. 6. Diabetes mellitus. 7. Coronary artery disease, status post coronary artery bypass surgery in the past. RECOMMENDATIONS: Continue current Bumex at 2 mg twice a day, the patient will be started on IV daptomycin 400 mg every 48 hours. Continue digoxin 0.125 mg Sunday, Sunday, and Sunday. Continue current Dobutrex infusion. Continue Imdur at 120 mg once a day, Lipitor at 40 mg once a day, Toprol XL 100 mg once a day. I would review the echocardiographic study performed today. Luís Weston MD
[2018-12-08] MEDS: DOBUTAMINE IV SCH ×2 (01:41→15:57)
[2018-12-08] MEDS: SODIUM CHLORIDE 0.9% IV SCH ×2 (01:41→15:57)
[2018-12-08] MEDS: HYDROmorphone 0.5 mg/0.5 ml ISec IVP PRN ×2 (01:48→22:25)
[2018-12-08 06:55] LABS: ALB/GLOB RATIO 0.8 (1.1-1.8); ALBUMIN 2.6 g/dL (3.0-4.8)
[2018-12-08 07:51] LABS: BASO # 0.02 K/mm3 (0.0-2.0); BASO % 0.2 % (0.0-3.0); EOS # 0.2 (0.0-0.7); EOS % 2.3 % (1.5-5.0); LYMPH % 10.2 % (22.0-35.0); MEAN CELL VOLUME 94.4 fl (80.0-105.0); MEAN CORPUSCULAR HEMOGLOBIN 29.9 pg (25.0-35.0); MEAN CORPUSCULAR HGB CONC 31.7 g/dl (31.0-37.0); MEAN PLATELET VOLUME 9.6 fl (7.0-11.0); MONO # 0.5 (0.1-0.6); MONO % 4.8 % (1.0-6.0); RBC 3.01 10^6/uL (3.5-6.1); RED CELL DISTRIBUTION WIDTH 17.4 % (11.5-14.5); WHITE BLOOD COUNT 9.6 10^3/uL (4.5-11.0)
[2018-12-08] MEDS ORDERED: HYDROmorphone 0.5 mg/0.5 ml ISec IVP PRN (07:52)
[2018-12-08] MEDS: Insulin Reg-LOW-Coverage SC SCH ×4 (08:31→22:19)
[2018-12-08] MEDS ORDERED: DAPTOmycin 500 mg Inj (Cubicin) IV SCH (10:00)
[2018-12-08] MEDS: Metoprolol Succinate 100 mg XL Tab PO SCH (10:00)
[2018-12-08] MEDS: Magnesium Oxide 400 mg Tab UD PO SCH ×2 (10:00→18:00)
[2018-12-08] MEDS: Mupirocin 2% Ointment 15 GM TUBE TOP SCH ×2 (10:01→18:01)
--- NOTE | 2018-12-08 12:47 | CP.PCM.PN ---
Subjective - Date & Time of Evaluation Date of Evaluation: 12/08/18 Time of Evaluation: 12:46 - Subjective Subjective: Podiatry consult note for Dr. Vinnie Cortés, 73 y/o female was seen and evaluated at bedside for a right heel wound. Patient denies any acute overnight events. Patient' family is present at bedside. Patient states she was comfortable sleeping with the pillow under the leg to offload the heel. Objective - Vital Signs/Intake and Output Vital Signs (last 24 hours): Temp Pulse Resp BP Pulse Ox 97.5 F L 117 H 20 167/92 H 99 12/08/18 08:07 12/08/18 10:00 12/08/18 08:07 12/08/18 10:00 12/08/18 08:07 Intake and Output: 12/08/18 12/08/18 06:59 18:59 Intake Total 60 Output Total 605 Balance -545 - Medications Medications: Current Medications Acetaminophen (Tylenol 325mg Tab) 650 mg PO Q6H PRN PRN Reason: Pain, moderate (4-7) Last Admin: 12/04/18 21:00 Dose: 650 mg Atorvastatin Calcium (Lipitor) 40 mg PO DAILY [facility] Last Admin: 12/08/18 10:00 Dose: 40 mg Bumetanide (Bumex) 2 mg PO BID [facility] Last Admin: 12/08/18 10:06 Dose: 2 mg Calcitriol (Rocaltrol) 0.25 mcg PO F [facility] Last Admin: 12/06/18 09:58 Dose: 0.25 mcg Calcium Carbonate (Oscal) 500 mg PO DAILY [facility] Last Admin: 12/08/18 10:00 Dose: 500 mg Dextrose (Dextrose 50% Inj) 0 ml IV STAT PRN; Protocol PRN Reason: Hypoglycemia Protocol Digoxin (Digoxin) 0.125 mg PO [facility] Last Admin: 12/06/18 09:59 Dose: 0.125 mg Heparin Sodium (Porcine) (Heparin) 5,000 units SC Q8 [facility]; Protocol Hydromorphone HCl (Dilaudid) 0.5 mg IVP Q6H PRN PRN Reason: Pain, severe (8-10) Last Admin: 12/08/18 10:05 Dose: 0.5 mg Dextrose (Dextrose 5% In Water 1000 Ml) 1,000 mls @ 0 mls/hr IV .Q0M PRN; Pr otocol PRN Reason: Hypoglycemia Protocol Dobutamine HCl 250 mg/ Sodium (Chloride) 250 mls @ 19.92 mls/hr IV .[id number] [facility] Last Admin: 12/08/18 01:41 Dose: 19.92 mls/hr Daptomycin 400 mg/ Sodium (Chloride) 100 mls @ 200 mls/hr IV Q48H [facility] Stop: 12/13/18 10:01 Last Admin: 12/08/18 10:45 Dose: 200 mls/hr Aztreonam (Azactam 1 Gm) 100 mls @ 100 mls/hr IVPB Q12 [facility]; Protocol Stop: 12/15/18 22:01 Insulin Human Regular (Humulin R Low) 0 units SC ACHS [facility]; Protocol Last Admin: 12/08/18 11:41 Dose: 2 u Isosorbide Mononitrate (Imdur) 120 mg PO DAILY [facility] Last Admin: 12/08/18 10:00 Dose: 120 mg Magnesium Oxide (Mag-Ox) 400 mg PO BID [facility] Last Admin: 12/08/18 10:00 Dose: 400 mg Metoprolol Succinate (Toprol Xl) 100 mg PO DAILY [facility] Last Admin: 12/08/18 10:00 Dose: 100 mg Mupirocin (Bactroban Ointment) 10 gm TOP BID [facility] Last Admin: 12/08/18 10:01 Dose: 1 applic Ondansetron HCl (Zofran Inj) 4 mg IVP Q4 PRN PRN Reason: Nausea/Vomiting Pantoprazole Sodium (Protonix Inj) 40 mg IVP Q12 [facility] Last Admin: 12/08/18 10:05 Dose: 40 mg Primidone (Mysoline) 50 mg PO HS [facility] Last Admin: 12/07/18 22:08 Dose: 50 mg Tamsulosin HCl (Flomax) 0.4 mg PO HS [facility] Last Admin: 12/07/18 22:08 Dose: 0.4 mg - Labs Labs: 12/08/18 06:00 12/08/18 06:00 PT 13.8 SECONDS (9.4-12.5) H 12/04/18 07:50 INR 1.22 12/04/18 07:50 APTT 33.4 Seconds (26.9-38.3) 12/04/18 07:50 - Constitutional Appears: Well, Non-toxic, No Acute Distress - Head Exam Head Exam: ATRAUMATIC, NORMOCEPHALIC - Extremities Exam Additional comments: Bilateral Lower Extremity exam VASC: DP and PT 2/4 bilaterally, CFT less than 3 seconds to the remaining digits, no edema noted, TG within normal limits DERM: RIGHT- decubitus tissue injury noted to the right heel significantly improving, wound is superficial with surrounding erythema, no probe to bone, no malodor, no signs of infection, no drainage, no malodor LEFT- hyperkeratotic lesions noted to the left hallux amputation site, no open wounds, no probe to bone, no malodor, no signs of infection, no drainage, no malodor NEURO: grossly intact bilaterally ORTHO: pain on palpation to the wound site, minimal pain with range of motion, muscular strength 5/5 - Neurological Exam Neurological Exam: Alert, Awake, Oriented x3 - Psychiatric Exam Psychiatric exam: Normal Affect, Normal Mood Assessment and Plan - Assessment and Plan (Free Text) Assessment: 73 y/o female patient seen and evaluated at bedside for stable right heel wound Plan: Patient seen and evaluated Plan discussed with Dr. Cortés Chart, labs and vitals were reviewed- afebrile, absent leukocytosis at this time Patient wound stable at this time from Podiatric standpoint Patient right heel to be dressed with bactroban and Optifoam Patient advised to use pillow to keep the right heel elevated at all time Patient and family demonstrated verbal understanding Podiatry will continue to follow the patient
--- NOTE | 2018-12-08 14:36 | CP.PCM.PN ---
Subjective - Date & Time of Evaluation Date of Evaluation: 12/08/18 Time of Evaluation: 14:33 - Subjective Subjective: Patient is tolerating diet. No complaints. No bleeding. No abdominal pain. Objective - Vital Signs/Intake and Output Vital Signs (last 24 hours): Temp Pulse Resp BP Pulse Ox 97.5 F L 119 H 20 167/92 H 99 12/08/18 08:07 12/08/18 10:00 12/08/18 08:07 12/08/18 10:00 12/08/18 08:07 Intake and Output: 12/08/18 12/08/18 06:59 18:59 Intake Total 60 Output Total 605 Balance -545 - Medications Medications: Current Medications Acetaminophen (Tylenol 325mg Tab) 650 mg PO Q6H PRN PRN Reason: Pain, moderate (4-7) Last Admin: 12/04/18 21:00 Dose: 650 mg Atorvastatin Calcium (Lipitor) 40 mg PO DAILY [facility] Last Admin: 12/08/18 10:00 Dose: 40 mg Bumetanide (Bumex) 2 mg PO BID [facility] Last Admin: 12/08/18 10:06 Dose: 2 mg Calcitriol (Rocaltrol) 0.25 mcg PO [facility] Last Admin: 12/06/18 09:58 Dose: 0.25 mcg Calcium Carbonate (Oscal) 500 mg PO DAILY [facility] Last Admin: 12/08/18 10:00 Dose: 500 mg Dextrose (Dextrose 50% Inj) 0 ml IV STAT PRN; Protocol PRN Reason: Hypoglycemia Protocol Digoxin (Digoxin) 0.125 mg PO [facility] Last Admin: 12/06/18 09:59 Dose: 0.125 mg Heparin Sodium (Porcine) (Heparin) 5,000 units SC Q8 [facility]; Protocol Last Admin: 12/08/18 13:16 Dose: 5,000 units Hydromorphone HCl (Dilaudid) 0.5 mg IVP Q8H PRN PRN Reason: Pain, severe (8-10) Dextrose (Dextrose 5% In Water 1000 Ml) 1,000 mls @ 0 mls/hr IV .Q0M PRN; Protocol PRN Reason: Hypoglycemia Protocol Dobutamine HCl 250 mg/ Sodium (Chloride) 250 mls @ 19.92 mls/hr IV .[id number] [facility] Last Admin: 12/08/18 01:41 Dose: 19.92 mls/hr Daptomycin 400 mg/ Sodium (Chloride) 100 mls @ 200 mls/hr IV Q48H [facility] Stop: 12/13/18 10:01 Last Admin: 12/08/18 10:45 Dose: 200 mls/hr Aztreonam (Azactam 1 Gm) 100 mls @ 100 mls/hr IVPB Q12 [facility]; Protocol Stop: 12/15/18 22:01 Insulin Human Regular (Humulin R Low) 0 units SC ACHS [facility]; Protocol Last Admin: 12/08/18 11:41 Dose: 2 u Isosorbide Mononitrate (Imdur) 120 mg PO DAILY [facility] Last Admin: 12/08/18 10:00 Dose: 120 mg Magnesium Oxide (Mag-Ox) 400 mg PO BID [facility] Last Admin: 12/08/18 10:00 Dose: 400 mg Metoprolol Succinate (Toprol Xl) 100 mg PO DAILY [facility] Last Admin: 12/08/18 10:00 Dose: 100 mg Mupirocin (Bactroban Ointment) 10 gm TOP BID [facility] Last Admin: 12/08/18 10:01 Dose: 1 applic Ondansetron HCl (Zofran Inj) 4 mg IVP Q4 PRN PRN Reason: Nausea/Vomiting Pantoprazole Sodium (Protonix Inj) 40 mg IVP Q12 [facility] Last Admin: 12/08/18 10:05 Dose: 40 mg Primidone (Mysoline) 50 mg PO [facility] Last Admin: 12/07/18 22:08 Dose: 50 mg Tamsulosin HCl (Flomax) 0.4 mg PO [facility] Last Admin: 12/07/18 22:08 Dose: 0.4 mg - Labs Labs: 12/08/18 06:00 12/08/18 06:00 PT 13.8 SECONDS (9.4-12.5) H 12/04/18 07:50 INR 1.22 12/04/18 07:50 APTT 33.4 Seconds (26.9-38.3) 12/04/18 07:50 - Constitutional Appears: Non-toxic, No Acute Distress - Head Exam Head Exam: ATRAUMATIC, NORMAL INSPECTION - Eye Exam Eye Exam: EOMI, Normal appearance - Respiratory Exam Respiratory Exam: Clear to Ausculation Bilateral, NORMAL BREATHING PATTERN - Cardiovascular Exam Cardiovascular Exam: REGULAR RHYTHM, +S1, +S2 - GI/Abdominal Exam GI & Abdominal Exam: Soft, Normal Bowel Sounds. absent: Tenderness Additional comments: Light brown stool in ostomy. - Extremities Exam Extremities Exam: Full ROM, Normal Inspection - Psychiatric Exam Psychiatric exam: Normal Affect, Normal Mood - Skin Skin Exam: Normal Color, Warm Assessment and Plan - Assessment and Plan (Free Text) Assessment: Abdominal pain likley secondary to PSBO Severe pulmonary HTN Partial small bowel obstruction, transition zone Parastomal hernia no incarceration Anemia Ileostomy CAD s/p CABG DM type II Bacteremia PLAN: Tolerating diet continue PPI monitor H/h for overt GI bleeding Review of echo show significant abnormalities including RVSP of 84. On chronic dobutamine Would not recommend endoscopy at this time. There is no signs of significant bleeding and there is significant risk to the patient for anaesthesia. Continue PPI and conservative management. Hb has been stable since transfusion. F/U bactermia Case discussed with Dr. Tomas, see attestation.
--- NOTE | 2018-12-08 15:07 | CP.PCM.PN ---
Subjective - Date & Time of Evaluation Date of Evaluation: 12/08/18 Time of Evaluation: 11:15 - Subjective Subjective: Gladis Peterson, PGY-1 Medicine Progress Note for Dr. Saenz: Pt was seen and examined this AM. She states that she is feeling better and her abd pain is improving. She states that she has had her bag changed 3 times since last night. She denies any other acute complaints at this time and denies any lightheadedness, dizziness or weakness. She has responded appropriately to 1unit PRBC. Pt had one bottle of (+) blood cx positive for gram (+) cocci, ID consulted. Per GI, outpt endoscopy on Sunday. She has no additional complaints at this time. Objective - Vital Signs/Intake and Output Vital Signs (last 24 hours): Temp Pulse Resp BP Pulse Ox 97.5 F L 119 H 20 167/92 H 99 12/08/18 08:07 12/08/18 10:00 12/08/18 08:07 12/08/18 10:00 12/08/18 08:07 Intake and Output: 12/08/18 12/08/18 06:59 18:59 Intake Total 60 Output Total 605 Balance -545 - Medications Medications: Current Medications Acetaminophen (Tylenol 325mg Tab) 650 mg PO Q6H PRN PRN Reason: Pain, moderate (4-7) Last Admin: 12/04/18 21:00 Dose: 650 mg Atorvastatin Calcium (Lipitor) 40 mg PO DAILY [facility] Last Admin: 12/08/18 10:00 Dose: 40 mg Bumetanide (Bumex) 2 mg PO BID [facility] Last Admin: 12/08/18 10:06 Dose: 2 mg Calcitriol (Rocaltrol) 0.25 mcg PO MWF [facility] Last Admin: 12/06/18 09:58 Dose: 0.25 mcg Calcium Carbonate (Oscal) 500 mg PO DAILY [facility] Last Admin: 12/08/18 10:00 Dose: 500 mg Dextrose (Dextrose 50% Inj) 0 ml IV STAT PRN; Protocol PRN Reason: Hypoglycemia Protocol Digoxin (Digoxin) 0.125 mg PO MWF [facility] Last Admin: 12/06/18 09:59 Dose: 0.125 mg Heparin Sodium (Porcine) (Heparin) 5,000 units SC Q8 [facility]; Protocol Last Admin: 12/08/18 13:16 Dose: 5,000 units Hydromorphone HCl (Dilaudid) 0.5 mg IVP Q8H PRN PRN Reason: Pain, severe (8-10) Dextrose (Dextrose 5% In Water 1000 Ml) 1,000 mls @ 0 mls/hr IV .Q0M PRN; Protocol PRN Reason: Hypoglycemia Protocol Dobutamine HCl 250 mg/ Sodium (Chloride) 250 mls @ 19.92 mls/hr IV .[id number] [facility] Last Admin: 12/08/18 01:41 Dose: 19.92 mls/hr Daptomycin 400 mg/ Sodium (Chloride) 100 mls @ 200 mls/hr IV Q48H [facility] Stop: 12/13/18 10:01 Last Admin: 12/08/18 10:45 Dose: 200 mls/hr Aztreonam (Azactam 1 Gm) 100 mls @ 100 mls/hr IVPB Q12 [id number]; Protocol Stop: 12/15/18 22:01 Insulin Human Regular (Humulin R Low) 0 units SC ACHS [facility]; Protocol Last Admin: 12/08/18 11:41 Dose: 2 u Isosorbide Mononitrate (Imdur) 120 mg PO DAILY [facility] Last Admin: 12/08/18 10:00 Dose: 120 mg Magnesium Oxide (Mag-Ox) 400 mg PO BID [facility] Last Admin: 12/08/18 10:00 Dose: 400 mg Metoprolol Succinate (Toprol Xl) 100 mg PO DAILY [facility] Last Admin: 12/08/18 10:00 Dose: 100 mg Mupirocin (Bactroban Ointment) 10 gm TOP BID [facility] Last Admin: 12/08/18 10:01 Dose: 1 applic Ondansetron HCl (Zofran Inj) 4 mg IVP Q4 PRN PRN Reason: Nausea/Vomiting Pantoprazole Sodium (Protonix Inj) 40 mg IVP Q12 [facility] Last Admin: 12/08/18 10:05 Dose: 40 mg Primidone (Mysoline) 50 mg PO HS [facility] Last Admin: 12/07/18 22:08 Dose: 50 mg Tamsulosin HCl (Flomax) 0.4 mg PO HS [facility] Last Admin: 12/07/18 22:08 Dose: 0.4 mg - Labs Labs: 12/08/18 06:00 12/08/18 06:00 PT 13.8 SECONDS (9.4-12.5) H 12/04/18 07:50 INR 1.22 12/04/18 07:50 APTT 33.4 Seconds (26.9-38.3) 12/04/18 07:50 - Constitutional Appears: Non-toxic, No Acute Distress - Head Exam Head Exam: ATRAUMATIC, NORMAL INSPECTION, NORMOCEPHALIC - Eye Exam Eye Exam: EOMI, Normal appearance, PERRL - Respiratory Exam Respiratory Exam: Clear to Ausculation Bilateral, NORMAL BREATHING PATTERN. a bsent: Accessory Muscle Use, Rales, Rhonchi, Wheezes, Respiratory Distress, Stridor - Cardiovascular Exam Cardiovascular Exam: +S1, +S2. absent: Gallop, Rubs - GI/Abdominal Exam GI & Abdominal Exam: Soft, Normal Bowel Sounds. absent: Tenderness Additional comments: Ileostomy bag present in RLQ, ileostomy is pink and output is noted in bag. No dark stool noted. - Extremities Exam Extremities Exam: Normal Capillary Refill. absent: Calf Tenderness, Joint Swelling - Back Exam Back Exam: NORMAL INSPECTION. absent: CVA tenderness (L), CVA tenderness (R) - Neurological Exam Neurological Exam: Alert, Awake, Oriented x3 - Psychiatric Exam Psychiatric exam: Normal Affect, Normal Mood - Skin Skin Exam: Dry, Normal Color, Warm Assessment and Plan - Assessment and Plan (Free Text) Assessment: This is a 73 y o female with hx multiple comorbidities, CAD s/p CABG, DM2, CHF s/p AICD placement, IDDM, neuropathy, PVD, HLD, ileostomy, chronic hip and knee pain, who presents to the ED with c/o abdominal discomfort that has been present since the am yesterday. Found to have partial SBO on CT scan, admitted for management. Pts bowels are now moving well. Transfused 1 unit PRBC, lasix was given. Pt responded appropriately to transfusion. Pt had one blood cx bottle (+) for gram (+) cocci, repeat bcxs have been negative. Will f/u with ID recs, who want to culture the PICC and pull the PICC line for now, with new PICC tomorrow. Will have an outpt endoscopy on Sunday. Plan: 1) Partial SBO: Improved - Admit to tele - Pt has had multiple BMs last night into today, pts abd pain has also improved - CT abd/pelvis: Interval appearance of moderate partial SBO, transition zone in R peristomal hernia of anterior abdominal wall overlying RLQ at site of colostomy, no evidence of incarceration or pneumatosis intestinalis - General Surgery consulted (Dr. Mercado), recs appreciated - HHD - Zofran prn for nausea 2) Gram (+) bacteremia: - Per ID, PICC line removal, once the dobutamine drip can be started peripherally - PICC culture - ID on board - New PICC tomorrow - Will get repeat cultures and catheter tip culture - Blood cxs (-) after 24 hours - ID recs appreciated 3) UTI: - Pt has hx of chronic Noble which was started by rehab facility - UA shows (+) LE and tntc WBCs - UCx = Gram (-) rods - ID recs appreciated 4) Anemia s/p 1unit PRBC transfusion 12/05: - Pt is asymptomatic - Pt responded appropriately to transfusion - H&H continues to remain stable - Outpt EGD likely on Sunday - Will cont to monitor in AM 5) Hx CAD s/p CABG, AICD, end-stage dilated cardiomyopathy - EKG on admission demonstrated T-wave inversions in lateral leads, slightly deeper than prior study - Trops (-) x3 - Ptdoes not complain of chest pain or dyspnea on exertion at this time - Cont home medication Dobutamine drip at rate of 5 (non-titrated) - Cardiology consulted (Dr. Vidales), recs appreciated - Cont ASA daily - Cont Digoxin daily - Dig level .4 - Cont Toprol XL bid - Cont Imdur daily 6) Hx CKD stage 4 - BUN/Cr 43/2.0 - Cont to monitor 7) Hx colostomy - FOBT (+) - H&H has been stable s/p transfusion - Outpt endoscopy, will be performed likely sunday 8) Hx chronic noble catheter placement - Etiology uncertain, possible urinary retention, per chart pt was treated for UTI with colonization of E. faecalis on prior admission - Failed voiding trial s/p removal of noble, floey reinsterted. - Cont home med Flomax daily 9) Hx DM2 - Pt NPO - ISS: low - Fingersticks achs DVT/GI ppx: Protonix/SCD Pt seen, examined with, and plan discussed with Dr. Saenz, attending physician. Gladis Peterson, PGY-1
--- NOTE | 2018-12-08 15:26 | PN ---
DATE: 12/08/2018 SUBJECTIVE: The patient was mildly short of breath. She denies any chest pain. She denies any nausea or vomiting. PHYSICAL EXAMINATION: VITAL SIGNS: Blood pressure 169/92, heart rate 115, temperature 97.4, respirations 20. HEENT: Pale conjunctivae. CHEST: Absent breath sounds over the bases. HEART: S1 and S2, regular. EXTREMITIES: 1+ pitting edema. LABORATORY DATA: Today's hemoglobin and hematocrit 9 and 28.4, white count and platelet are within normal limits. Today's SMA-7; sodium 136, potassium 4.8, chloride 106, CO2 of 19, chloride 65, BUN 43, creatinine 2.0. Yesterday, chest x-ray revealed no active disease. ASSESSMENT: 1. Cardiomyopathy, status post implantable cardioverter-defibrillator. 2. ischemic EKG changes with borderline troponin elevation. 3. . 4. Diabetes mellitus. 5. Coronary artery disease status post coronary artery bypass surgery. 6. Klebsiella pneumonia right side incision. 7. Positive blood culture for Staphylococcus epidermis. The most recent echocardiograph study that was done yesterday did not reveal any evidence of vegetation. 8. Severe pulmonary hypertension and recent echocardiograph study. RECOMMENDATIONS: Continue Azactam at 1 g every 12 hours, daptomycin 400 mg every 48 hours, digoxin 0.125 mg Sunday, Sunday, and Sunday; Dobutrex infusion, Lipitor 40 mg once a day, Toprol XL mg daily, stop subcutaneous heparin 5,000 units every 8 hours in view of evidence of spontaneous contrast noted in the left ventricle consistent with low flow state. Luís Weston MD
--- NOTE | 2018-12-08 15:35 | PQF ---
PROVIDER RESPONSE TEXT: Anemia most likely secondary to acute blood loss. REVIEWER QUERY TEXT: Anemia Type Anemia is documented in the Medical Record. Please specify the cause (includes suspected or probable cause) Such as: -- Due to acute blood loss -- Due to chronic blood loss -- Due to iron deficiency -- Due to postoperative blood loss -- Due to chronic disease -- Other, please specify The patient's Clinical Indicators include: Patient c/o dark stools on admission, drop in H/H to 7.8/24.7 for which she was transfused with 1 UPR BC. GI consult ordered and noted anemia and melena. Please specify type and acuity of anemia present, etiology if known. Query created by: Trini Mcallister on 12/06/2018 8:23 AM Electronically signed by: Fidel Saenz MD 12/08/2018 3:33 PM
--- NOTE | 2018-12-08 17:24 | CP.PCM.CON ---
History of Present Illness - History of Present Illness History of Present Illness: 73 year old female with PMH of CAD S/P CABG, abdominal aortic aneurysm S/P repair, S/P cholecystectomy, S/P pacemaker placement, DM, S/P left toe amputation came in to [facility] because of abdominal discomfort. Cultures were taken from blood which is showing Staph epidermidis and urine cx showing Klebsiella. Patient denies having fever or chills, PICC line is having problems with blood flow, no pain in the right arm where the PICC is, diarrhea, no dysuria, no chest pain, no SOB, no headache or dizziness. Infectious Diseases consult is requested to further evaluate and manage. Review of Systems - Review of Systems All systems: reviewed and no additional remarkable complaints except (as per HPI) Past Patient History - Infectious Disease Hx of Infectious Diseases: None - Tetanus Immunizations Tetanus Immunization: Unknown - Past Medical History & Family History Past Medical History?: Yes - Past Social History Smoking Status: Former Smoker - CARDIAC Hx Cardiac Disorders: Yes (CAD, CABG, AICD placement.) Hx Congestive Heart Failure: Yes Hx Hypercholesterolemia: Yes Hx Hypertension: Yes - PULMONARY Hx Respiratory Disorders: Yes (USED TO SMOKE PPD) Hx Pneumonia: Yes - NEUROLOGICAL Hx Neurological Disorder: No - HEENT Hx HEENT Problems: Yes Hx Cataracts: Yes (bilateral laser sx) - RENAL Hx Chronic Kidney Disease: Yes - ENDOCRINE/METABOLIC Hx Diabetes Mellitus Type 2: Yes - HEMATOLOGICAL/ONCOLOGICAL Hx Blood Disorders: Yes Hx Cancer: No - INTEGUMENTARY Other/Comment: STage 3 sacral ulcers H/O HEALED WELL. BLE redness w/ scattered scabs 2-6-19. Under breasts folds redness,MINIMAL 2-6-19. Bilateral under belly Folds redness skin excoriated 2-6-19 HEALED - MUSCULOSKELETAL/RHEUMATOLOGICAL Hx Musculoskeletal Disorders: Yes (L 1ST AND 2ND DIGIT AMPUTATED) Hx Falls: No Hx Unsteady Gait: Yes - GASTROINTESTINAL Hx Gastrointestinal Disorders: Yes (umbilical hernia ileostomy) Hx Ileostomy: Yes - GENITOURINARY/GYNECOLOGICAL Hx Genitourinary Disorders: Yes (noble) - PSYCHIATRIC Hx Psychophysiologic Disorder: No Hx Substance Use: No - SURGICAL HISTORY Hx Surgeries: Yes (L 1ST AND 2ND TOE AMPUTATE,PORT,PICC,3 STENTS.) Hx Mastectomy: No - ANESTHESIA Hx Anesthesia: Yes Hx Anesthesia Reactions: No Hx Malignant Hyperthermia: No Meds Allergies/Adverse Reactions: Allergies Allergy/AdvReac Type Severity Reaction Status Date / Time amoxicillin [From Augmentin] Allergy ANAPHYLAXIS Verified 12/04/18 12:57 clavulanic acid Allergy ANAPHYLAXIS Verified 12/04/18 12:57 [From Augmentin] doxycycline Allergy ANAPHYLAXIS Verified 12/04/18 12:57 shellfish derived Allergy ANAPHYLAXIS Verified 12/04/18 12:57 - Medications Medications: Current Medications Acetaminophen (Tylenol 325mg Tab) 650 mg PO Q6H PRN PRN Reason: Pain, moderate (4-7) Last Admin: 12/04/18 21:00 Dose: 650 mg Atorvastatin Calcium (Lipitor) 40 mg PO DAILY [facility] Last Admin: 12/07/18 10:46 Dose: 40 mg Bumetanide (Bumex) 2 mg PO BID [facility] Last Admin: 12/07/18 17:27 Dose: 2 mg Calcitriol (Rocaltrol) 0.25 mcg PO [facility] Last Admin: 12/06/18 09:58 Dose: 0.25 mcg Calcium Carbonate (Oscal) 500 mg PO DAILY [facility] Last Admin: 12/07/18 10:46 Dose: 500 mg Dextrose (Dextrose 50% Inj) 0 ml IV STAT PRN; Protocol PRN Reason: Hypoglycemia Protocol Digoxin (Digoxin) 0.125 mg PO [facility] Last Admin: 12/06/18 09:59 Dose: 0.125 mg Hydromorphone HCl (Dilaudid) 0.5 mg IVP Q6H PRN PRN Reason: Pain, severe (8-10) Dextrose (Dextrose 5% In Water 1000 Ml) 1,000 mls @ 0 mls/hr IV .Q0M PRN; Protocol PRN Reason: Hypoglycemia Protocol Dobutamine HCl 250 mg/ Sodium (Chloride) 250 mls @ 19.92 mls/hr IV .[id number] [facility] Last Admin: 12/08/18 01:41 Dose: 19.92 mls/hr Daptomycin 400 mg/ Sodium (Chloride) 100 mls @ 200 mls/hr IV Q48H [facility] Stop: 12/13/18 10:01 Aztreonam (Azactam 1 Gm) 100 mls @ 100 mls/hr IVPB Q12 [facility]; Protocol Stop: 12/15/18 22:01 Insulin Human Regular (Humulin R Low) 0 units SC ACHS [facility]; Protocol Last Admin: 12/08/18 08:31 Dose: 1 u Isosorbide Mononitrate (Imdur) 120 mg PO DAILY [facility] Last Admin: 12/07/18 10:46 Dose: 120 mg Magnesium Oxide (Mag-Ox) 400 mg PO BID [facility] Last Admin: 12/07/18 17:27 Dose: 400 mg Metoprolol Succinate (Toprol Xl) 100 mg PO DAILY [facility] Last Admin: 12/07/18 10:46 Dose: 100 mg Mupirocin (Bactroban Ointment) 10 gm TOP BID [facility] Last Admin: 12/07/18 17:27 Dose: 1 applic Ondansetron HCl (Zofran Inj) 4 mg IVP Q4 PRN PRN Reason: Nausea/Vomiting Pantoprazole Sodium (Protonix Inj) 40 mg IVP Q12 [facility] Last Admin: 12/07/18 22:08 Dose: 40 mg Primidone (Mysoline) 50 mg PO [facility] Last Admin: 12/07/18 22:08 Dose: 50 mg Tamsulosin HCl (Flomax) 0.4 mg PO [facility] Last Admin: 12/07/18 22:08 Dose: 0.4 mg Physical Exam - Constitutional Appears: No Acute Distress, Chronically Ill - Head Exam Head Exam: NORMAL INSPECTION - ENT Exam ENT Exam: Mucous Membranes Moist - Neck Exam Neck exam: Negative for: Meningismus - Respiratory Exam Respiratory Exam: Decreased Breath Sounds - Cardiovascular Exam Cardiovascular Exam: +S1, +S2 - GI/Abdominal Exam GI & Abdominal Exam: Soft. absent: Tenderness Results - Vital Signs Recent Vital Signs: Last Vital Signs Temp 97.5 F L 12/08/18 08:07 Pulse 113 H 12/08/18 08:07 Resp 20 12/08/18 08:07 BP 167/92 H 12/08/18 08:07 Pulse Ox 99 12/08/18 08:07 - Labs Result Diagrams: 12/08/18 06:00 12/08/18 06:00 Labs: Laboratory Results - last 24 hr 12/07/18 12/07/18 12/07/18 11:07 16:34 21:36 WBC RBC Hgb Hct MCV MCH MCHC RDW Plt Count MPV Neut % (Auto) Lymph % (Auto) Bracken % (Auto) Eos % (Auto) Baso % (Auto) Lymph # (Auto) Bracken # (Auto) Eos # (Auto) Baso # (Auto) Absolute Neuts (auto) Sodium Potassium Chloride Carbon Dioxide Anion Gap BUN Creatinine Est GFR ( Amer) Est GFR (Non-Af Amer) POC Glucose (mg/dL) 242 H 150 H 185 H Random Glucose Calcium Total Bilirubin AST ALT Alkaline Phosphatase Total Protein Albumin Globulin Albumin/Globulin Ratio 12/08/18 12/08/18 12/08/18 06:00 06:00 07:05 WBC 9.6 RBC 3.01 L Hgb 9.0 L Hct 28.4 L MCV 94.4 MCH 29.9 MCHC 31.7 RDW 17.4 H Plt Count 225 MPV 9.6 Neut % (Auto) 82.5 H Lymph % (Auto) 10.2 L Bracken % (Auto) 4.8 Eos % (Auto) 2.3 Baso % (Auto) 0.2 Lymph # (Auto) 1.0 L Bracken # (Auto) 0.5 Eos # (Auto) 0.2 Baso # (Auto) 0.02 Absolute Neuts (auto) 7.95 H Sodium 133 Potassium 4.8 Chloride 106 Carbon Dioxide 19 L Anion Gap 13 BUN 43 H Creatinine 2.0 H Est GFR ( Amer) 30 Est GFR (Non-Af Amer) 24 POC Glucose (mg/dL) 179 H Random Glucose 165 H Calcium 8.0 L Total Bilirubin 0.3 AST 19 ALT 10 Alkaline Phosphatase 118 Total Protein 5.8 Albumin 2.6 L Globulin 3.2 Albumin/Globulin Ratio 0.8 L Assessment & Plan - Assessment and Plan (Free Text) Plan: Assessment Staph epidemidis bacteremia, R/O related to PICC line R/O UTI with Klebsiella history of hematuria and urinary retention R/O UTI with E. faecalis, S/P treatment with antibiotics S/P left leg cellulitis as well as right sided community-acquired pneumonia S/P left foot 2nd digit skin and skin structure infection CAD S/P CABG abdominal aortic aneurysm S/P repair S/P cholecystectomy S/P pacemaker placement DM S/P left toe amputation Plan started Daptomycin and azactam; repeat blood cx are negative, still concerned about PICC line, especially with difficulty flushing - would recommend removal of PICC line - once removed, need 5-7 days of IV antibiotics will monitor clinically
[2018-12-08 17:45] LABS: INR 1.48; PARTIAL THROMBOPLASTIN TIME 37.4 Seconds (26.9-38.3); PROTHROMBIN TIME 16.4 SECONDS (9.4-12.5)
[2018-12-08] MEDS: DOBUTamine 500mg/250ml D5W 500 MG/250 ML BAG IV SCH (18:50)
[2018-12-08] MEDS: Heparin25000 units/250ml 1/2NS 25,000 UNITS/250 ML BAG IV PRN (19:36)
--- NOTE | 2018-12-08 20:39 | CP.PCM.CON ---
History of Present Illness - History of Present Illness History of Present Illness: Gladis Peterson, PGY-[address] ICU Consult Note For Dr. Quinones Pt is a 73 y o female with hx multiple comorbidities, CAD s/p CABG, DM2, CHF s/p AICD placement, IDDM, neuropathy, PVD, HLD, ileostomy, chronic hip and knee pain, who presents to the ED with c/o abdominal discomfort that has been present since 12/03/18. Pt was placed NPO and then noted to have return of normal bowel function and output the next day. Stool was sent for FOBT and was noted to be (+). Pt then continued on dobutamine drip and found to have 1 bottle of blood cx (+) for staph epidermidis. Stat blood cxs were drawn and noted to be (-) after 48 hours. Pt then noted to have swelling of L arm and went for US were pt was found to have thrombus in L subclavian vein on pre-headley read. Pt was explained the risks and benefits of starting heparin drip, which was then initiated after pt agreed to start the drip. After drip was started pt was noted to have beats of Vtach which were unsustained. Cardio was made aware and requested ICU consult. At this time the pt denies fevers, chills, headaches, chest pain, palpitations, SOB, cough, abd pain, n/v, c/d, dysuria, numbness, tingling or weakness. Pmhx: CAD s/p CABG, DM2, systolic CHF s/p AICD placement, end-stage dilated cardiomyopathy s/p IV home ionotrope therapy, neuropathy, PVD, HLD, ileostomy, chronic hip and knee pain, CKD stage 4, chronic sacral ulcers Pshx: L foot 1st and 2nd digit amputation (2016, 2017), Port-a-cath placement for milrinone (2014), AAA repair, Ileostomy s/p ischemic colitis and colostomy creation, cataract b/l s/p laser treatment Allergies: Amoxicillin, clavulanic acid, doxycycline, shellfish Fam hx: Mom - breast ca, DM; Dad - throat ca; Brother - leukemia Soc hx: quit smoking 18 y ago, previously smoked 1 ppx x 30 y; denies EtOH or illicit drug use PMD: Dr. Flannery Helicopter Repairer: Dr. Vidales Review of Systems - Review of Systems Review of Systems: 12 point ROS reviewed and negative except for noted in HPI above. Past Patient History - Infectious Disease Hx of Infectious Diseases: None - Tetanus Immunizations Tetanus Immunization: Unknown - Past Medical History & Family History Past Medical History?: Yes - Past Social History Smoking Status: Former Smoker - CARDIAC Hx Cardiac Disorders: Yes (CAD, CABG, AICD placement.) Hx Congestive Heart Failure: Yes Hx Hypercholesterolemia: Yes Hx Hypertension: Yes - PULMONARY Hx Respiratory Disorders: Yes (USED TO SMOKE PPD) Hx Pneumonia: Yes - NEUROLOGICAL Hx Neurological Disorder: No - HEENT Hx HEENT Problems: Yes Hx Cataracts: Yes (bilateral laser sx) - RENAL Hx Chronic Kidney Disease: Yes - ENDOCRINE/METABOLIC Hx Diabetes Mellitus Type 2: Yes - HEMATOLOGICAL/ONCOLOGICAL Hx Blood Disorders: Yes Hx Cancer: No - INTEGUMENTARY Other/Comment: STage 3 sacral ulcers H/O HEALED WELL. BLE redness w/ scattered scabs 2-6-19. Under breasts folds redness,MINIMAL 2-6-19. Bilateral under belly Folds redness skin excoriated 2-6-19 HEALED - MUSCULOSKELETAL/RHEUMATOLOGICAL Hx Musculoskeletal Disorders: Yes (L 1ST AND 2ND DIGIT AMPUTATED) Hx Falls: No Hx Unsteady Gait: Yes - GASTROINTESTINAL Hx Gastrointestinal Disorders: Yes (umbilical hernia ileostomy) Hx Ileostomy: Yes - GENITOURINARY/GYNECOLOGICAL Hx Genitourinary Disorders: Yes (noble) - PSYCHIATRIC Hx Psychophysiologic Disorder: No Hx Substance Use: No - SURGICAL HISTORY Hx Surgeries: Yes (L 1ST AND 2ND TOE AMPUTATE,PORT,PICC,3 STENTS.) Hx Mastectomy: No - ANESTHESIA Hx Anesthesia: Yes Hx Anesthesia Reactions: No Hx Malignant Hyperthermia: No Meds Allergies/Adverse Reactions: Allergies Allergy/AdvReac Type Severity Reaction Status Date / Time amoxicillin [From Augmentin] Allergy ANAPHYLAXIS Verified 12/04/18 12:57 clavulanic acid Allergy ANAPHYLAXIS Verified 12/04/18 12:57 [From Augmentin] doxycycline Allergy ANAPHYLAXIS Verified 12/04/18 12:57 shellfish derived Allergy ANAPHYLAXIS Verified 12/04/18 12:57 - Medications Medications: Current Medications Acetaminophen (Tylenol 325mg Tab) 650 mg PO Q6H PRN PRN Reason: Pain, moderate (4-7) Last Admin: 12/04/18 21:00 Dose: 650 mg Atorvastatin Calcium (Lipitor) 40 mg PO DAILY [facility] Last Admin: 12/08/18 10:00 Dose: 40 mg Bumetanide (Bumex) 2 mg PO BID [facility] Last Admin: 12/08/18 18:00 Dose: 2 mg Calcitriol (Rocaltrol) 0.25 mcg PO [facility] Last Admin: 12/06/18 09:58 Dose: 0.25 mcg Calcium Carbonate (Oscal) 500 mg PO DAILY [facility] Last Admin: 12/08/18 10:00 Dose: 500 mg Dextrose (Dextrose 50% Inj) 0 ml IV STAT PRN; Protocol PRN Reason: Hypoglycemia Protocol Digoxin (Digoxin) 0.125 mg PO [facility] Last Admin: 12/06/18 09:59 Dose: 0.125 mg Hydromorphone HCl (Dilaudid) 0.5 mg IVP Q8H PRN PRN Reason: Pain, severe (8-10) Dextrose (Dextrose 5% In Water 1000 Ml) 1,000 mls @ 0 mls/hr IV .Q0M PRN; Protocol PRN Reason: Hypoglycemia Protocol Daptomycin 400 mg/ Sodium (Chloride) 100 mls @ 200 mls/hr IV Q48H [facility] Stop: 12/13/18 10:01 Last Admin: 12/08/18 10:45 Dose: Not Given Aztreonam (Azactam 1 Gm) 100 mls @ 100 mls/hr IVPB Q12 [facility]; Protocol Stop: 12/15/18 22:01 Heparin Sodium/Sodium Chloride (Heparin 76559 Units/250ml 1/2 Normal Saline) 25,000 units in 250 mls @ 11.953 mls/hr IV .[id number] PRN; Protocol PRN Reason: ADJUST RATE PER PROTOCOL Last Admin: 12/08/18 19:36 Dose: 18 units/kg/hr, 11.953 mls/hr Dobutamine HCl/Dextrose (Dobutamine/Dextrose 5% 500mg/250ml) 500 mg in 250 mls @ 9.961 mls/hr IV .Q24H [facility] Last Admin: 12/08/18 18:50 Dose: 9.961 mls/hr Insulin Human Regular (Humulin R Low) 0 units SC [facility]; Protocol Last Admin: 12/08/18 18:03 Dose: 1 u Isosorbide Mononitrate (Imdur) 120 mg PO DAILY [facility] Last Admin: 12/08/18 10:00 Dose: 120 mg Magnesium Oxide (Mag-Ox) 400 mg PO BID [facility] Last Admin: 12/08/18 18:00 Dose: 400 mg Metoprolol Succinate (Toprol Xl) 100 mg PO DAILY [facility] Last Admin: 12/08/18 10:00 Dose: 100 mg Mupirocin (Bactroban Ointment) 10 gm TOP BID [facility] Last Admin: 12/08/18 18:01 Dose: Not Given Ondansetron HCl (Zofran Inj) 4 mg IVP Q4 PRN PRN Reason: Nausea/Vomiting Pantoprazole Sodium (Protonix Inj) 40 mg IVP Q12 [facility] Last Admin: 12/08/18 10:05 Dose: 40 mg Primidone (Mysoline) 50 mg PO [facility] Last Admin: 12/07/18 22:08 Dose: 50 mg Tamsulosin HCl (Flomax) 0.4 mg PO [facility] Last Admin: 12/07/18 22:08 Dose: 0.4 mg Physical Exam - Constitutional Appears: Non-toxic, No Acute Distress - Head Exam Head Exam: ATRAUMATIC, NORMAL INSPECTION, NORMOCEPHALIC - Eye Exam Eye Exam: EOMI, Normal appearance, PERRL - ENT Exam ENT Exam: Mucous Membranes Dry - Neck Exam Additional comments: EJ line noted to be in place - Respiratory Exam Respiratory Exam: Clear to Auscultation Bilateral, NORMAL BREATHING PATTERN. absent: Rales, Rhonchi, Wheezes, Respiratory Distress, Stridor - Cardiovascular Exam Cardiovascular Exam: RRR, +S1, +S2. absent: Gallop, Rubs - GI/Abdominal Exam GI & Abdominal Exam: Normal Bowel Sounds, Soft. absent: Distended, Firm, Guarding, Tenderness Additional comments: Ileostomy bag present in RLQ, ileostomy is pink and output is noted in bag. No dark stool noted. - Extremities Exam Extremities exam: Positive for: normal capillary refill. Negative for: calf tenderness, tenderness - Back Exam Back exam: NORMAL INSPECTION. absent: CVA tenderness (L), CVA tenderness (R) Additional comments: sacral decubitus w/ dressing - Neurological Exam Neurological exam: Alert, Oriented x3 - Psychiatric Exam Psychiatric exam: Normal Affect, Normal Mood - Skin Skin Exam: Dry, Normal Color Additional comments: pressure ulcer on right heel. dressed Results - Vital Signs Recent Vital Signs: Last Vital Signs Temp 97.5 F L 12/08/18 08:07 Pulse 76 12/08/18 18:50 Resp 20 12/08/18 08:07 BP 114/67 12/08/18 18:50 Pulse Ox 99 12/08/18 08:07 - Labs Result Diagrams: 12/08/18 06:00 12/08/18 06:00 Labs: Laboratory Results - last 24 hr 12/07/18 12/08/18 12/08/18 21:36 06:00 06:00 WBC 9.6 RBC 3.01 L Hgb 9.0 L Hct 28.4 L MCV 94.4 MCH 29.9 MCHC 31.7 RDW 17.4 H Plt Count 225 MPV 9.6 Neut % (Auto) 82.5 H Lymph % (Auto) 10.2 L Jones % (Auto) 4.8 Eos % (Auto) 2.3 Baso % (Auto) 0.2 Lymph # (Auto) 1.0 L Jones # (Auto) 0.5 Eos # (Auto) 0.2 Baso # (Auto) 0.02 Absolute Neuts (auto) 7.95 H PT INR APTT Sodium 133 Potassium 4.8 Chloride 106 Carbon Dioxide 19 L Anion Gap 13 BUN 43 H Creatinine 2.0 H Est GFR ( Amer) 30 Est GFR (Non-Af Amer) 24 POC Glucose (mg/dL) 185 H Random Glucose 165 H Calcium 8.0 L Magnesium 1.8 Total Bilirubin 0.3 AST 19 ALT 10 Alkaline Phosphatase 118 Total Protein 5.8 Albumin 2.6 L Globulin 3.2 Albumin/Globulin Ratio 0.8 L 12/08/18 12/08/18 12/08/18 07:05 11:02 16:29 WBC RBC Hgb Hct MCV MCH MCHC RDW Plt Count MPV Neut % (Auto) Lymph % (Auto) Jones % (Auto) Eos % (Auto) Baso % (Auto) Lymph # (Auto) Jones # (Auto) Eos # (Auto) Baso # (Auto) Absolute Neuts (auto) PT INR APTT Sodium Potassium Chloride Carbon Dioxide Anion Gap BUN Creatinine Est GFR ( Amer) Est GFR (Non-Af Amer) POC Glucose (mg/dL) 179 H 215 H 190 H Random Glucose Calcium Magnesium Total Bilirubin AST ALT Alkaline Phosphatase Total Protein Albumin Globulin Albumin/Globulin Ratio 12/08/18 17:15 WBC RBC Hgb Hct MCV MCH MCHC RDW Plt Count MPV Neut % (Auto) Lymph % (Auto) Jones % (Auto) Eos % (Auto) Baso % (Auto) Lymph # (Auto) Jones # (Auto) Eos # (Auto) Baso # (Auto) Absolute Neuts (auto) PT 16.4 H INR 1.48 APTT 37.4 Sodium Potassium Chloride Carbon Dioxide Anion Gap BUN Creatinine Est GFR ( Amer) Est GFR (Non-Af Amer) POC Glucose (mg/dL) Random Glucose Calcium Magnesium Total Bilirubin AST ALT Alkaline Phosphatase Total Protein Albumin Globulin Albumin/Globulin Ratio Assessment & Plan - Assessment and Plan (Free Text) Assessment: Pt is a 73 y o female with hx multiple comorbidities, CAD s/p CABG, DM2, CHF s/p AICD placement, IDDM, neuropathy, PVD, HLD, ileostomy, chronic hip and knee pain, who presents to the ED with c/o abdominal discomfort that has been present since 12/03. ICU was consulted after unsustained Vtach which was started after heparin drip for L subclavian vein thrombosis. POLST was reviewed with pt and agrees with DNR/DNI. Plan: 1) Unsustained Vtach: - Pt currently asymptomatic, and the Vtach was unsustained - Mag wnl - f/u TSH - Pt is DNR/DNI - Cont current dobutamine drip - Pt can continue to be monitored on current tele floor - No ICU intervention required at this time Case seen and discussed with Dr. Joni Peterson, PGY-1
--- NOTE | 2018-12-08 21:10 | CP.PCM.CON ---
History of Present Illness - History of Present Illness History of Present Illness: 73 year old female with a history of CAD s/p CABG, CHF s/p AICD on dubutamine, DM, PVD, HL, ileostomy, presenting with abdominal pain, found to have bactermia, UTI, anemia, and left upper extremity DVT. The patient developed left upper extremity swelling and underwent a venous duplex of the left arma which revealed DVT. The official report is not currently available to me. She was started on a heparin drip. She denies trauma to the arm but notes to spending a lot of time in bed and leans on that arm. She denies prior blood clots. Of note her FOBT is positive. Past medical history: CAD s/p CABG, CHF s/p AICD on dubutamine, DM, PVD, HL, ileostomy Past surgical history: , colostomy, left foot digit amputation, portacath Family history: Mother had breast cancer, father had throat cancer, brother with leukemia Social history: Former tobacco Allergies: Several, see list. Review of systems: All remaining review of systems including HEENT, cardiovascular, respiratory, gastrointestinal, genitourinary, musculoskeletal, dermatologic, neurologic, and psychiatric are negative unless mentioned in the HPI. Past Patient History - Infectious Disease Hx of Infectious Diseases: None - Tetanus Immunizations Tetanus Immunization: Unknown - Past Medical History & Family History Past Medical History?: Yes - Past Social History Smoking Status: Former Smoker - CARDIAC Hx Cardiac Disorders: Yes (CAD, CABG, AICD placement.) Hx Congestive Heart Failure: Yes Hx Hypercholesterolemia: Yes Hx Hypertension: Yes - PULMONARY Hx Respiratory Disorders: Yes (USED TO SMOKE PPD) Hx Pneumonia: Yes - NEUROLOGICAL Hx Neurological Disorder: No - HEENT Hx HEENT Problems: Yes Hx Cataracts: Yes (bilateral laser sx) - RENAL Hx Chronic Kidney Disease: Yes - ENDOCRINE/METABOLIC Hx Diabetes Mellitus Type 2: Yes - HEMATOLOGICAL/ONCOLOGICAL Hx Blood Disorders: Yes Hx Cancer: No - INTEGUMENTARY Other/Comment: STage 3 sacral ulcers H/O HEALED WELL. BLE redness w/ scattered scabs 2-6-19. Under breasts folds redness,MINIMAL 2-6-19. Bilateral under belly Folds redness skin excoriated 2-6-19 HEALED - MUSCULOSKELETAL/RHEUMATOLOGICAL Hx Musculoskeletal Disorders: Yes (L 1ST AND 2ND DIGIT AMPUTATED) Hx Falls: No Hx Unsteady Gait: Yes - GASTROINTESTINAL Hx Gastrointestinal Disorders: Yes (umbilical hernia ileostomy) Hx Ileostomy: Yes - GENITOURINARY/GYNECOLOGICAL Hx Genitourinary Disorders: Yes (nolbe) - PSYCHIATRIC Hx Psychophysiologic Disorder: No Hx Substance Use: No - SURGICAL HISTORY Hx Surgeries: Yes (L 1ST AND 2ND TOE AMPUTATE,PORT,PICC,3 STENTS.) Hx Mastectomy: No - ANESTHESIA Hx Anesthesia: Yes Hx Anesthesia Reactions: No Hx Malignant Hyperthermia: No Meds Allergies/Adverse Reactions: Allergies Allergy/AdvReac Type Severity Reaction Status Date / Time amoxicillin [From Augmentin] Allergy ANAPHYLAXIS Verified 12/04/18 12:57 clavulanic acid Allergy ANAPHYLAXIS Verified 12/04/18 12:57 [From Augmentin] doxycycline Allergy ANAPHYLAXIS Verified 12/04/18 12:57 shellfish derived Allergy ANAPHYLAXIS Verified 12/04/18 12:57 - Medications Medications: Current Medications Acetaminophen (Tylenol 325mg Tab) 650 mg PO Q6H PRN PRN Reason: Pain, moderate (4-7) Last Admin: 12/04/18 21:00 Dose: 650 mg Atorvastatin Calcium (Lipitor) 40 mg PO DAILY [facility] Last Admin: 12/08/18 10:00 Dose: 40 mg Bumetanide (Bumex) 2 mg PO BID [facility] Last Admin: 12/08/18 18:00 Dose: 2 mg Calcitriol (Rocaltrol) 0.25 mcg PO F [facility] Last Admin: 12/06/18 09:58 Dose: 0.25 mcg Calcium Carbonate (Oscal) 500 mg PO DAILY [facility] Last Admin: 12/08/18 10:00 Dose: 500 mg Dextrose (Dextrose 50% Inj) 0 ml IV STAT PRN; Protocol PRN Reason: Hypoglycemia Protocol Digoxin (Digoxin) 0.125 mg PO F [facility] Last Admin: 12/06/18 09:59 Dose: 0.125 mg Hydromorphone HCl (Dilaudid) 0.5 mg IVP Q8H PRN PRN Reason: Pain, severe (8-10) Dextrose (Dextrose 5% In Water 1000 Ml) 1,000 mls @ 0 mls/hr IV .Q0M PRN; Protocol PRN Reason: Hypoglycemia Protocol Daptomycin 400 mg/ Sodium (Chloride) 100 mls @ 200 mls/hr IV Q48H [facility] Stop: 12/13/18 10:01 Last Admin: 12/08/18 10:45 Dose: Not Given Aztreonam (Azactam 1 Gm) 100 mls @ 100 mls/hr IVPB Q12 [facility]; Protocol Stop: 12/15/18 22:01 Heparin Sodium/Sodium Chloride (Heparin 29149 Units/250ml 1/2 Normal Saline) 25,000 units in 250 mls @ 11.953 mls/hr IV .[id number] PRN; Protocol PRN Reason: ADJUST RATE PER PROTOCOL Last Admin: 12/08/18 19:36 Dose: 18 units/kg/hr, 11.953 mls/hr Dobutamine HCl/Dextrose (Dobutamine/Dextrose 5% 500mg/250ml) 500 mg in 250 mls @ 9.961 mls/hr IV .Q24H [facility] Last Admin: 12/08/18 18:50 Dose: 9.961 mls/hr Insulin Human Regular (Humulin R Low) 0 units SC ACHS [facility]; Protocol Last Admin: 12/08/18 18:03 Dose: 1 u Isosorbide Mononitrate (Imdur) 120 mg PO DAILY [facility] Last Admin: 12/08/18 10:00 Dose: 120 mg Magnesium Oxide (Mag-Ox) 400 mg PO BID [facility] Last Admin: 12/08/18 18:00 Dose: 400 mg Metoprolol Succinate (Toprol Xl) 100 mg PO DAILY [facility] Last Admin: 12/08/18 10:00 Dose: 100 mg Mupirocin (Bactroban Ointment) 10 gm TOP BID [facility] Last Admin: 12/08/18 18:01 Dose: Not Given Ondansetron HCl (Zofran Inj) 4 mg IVP Q4 PRN PRN Reason: Nausea/Vomiting Pantoprazole Sodium (Protonix Inj) 40 mg IVP Q12 [facility] Last Admin: 12/08/18 10:05 Dose: 40 mg Primidone (Mysoline) 50 mg PO HS [facility] Last Admin: 12/07/18 22:08 Dose: 50 mg Tamsulosin HCl (Flomax) 0.4 mg PO HS [facility] Last Admin: 12/07/18 22:08 Dose: 0.4 mg Physical Exam - Head Exam Head Exam: ATRAUMATIC - Eye Exam Eye Exam: Normal appearance - ENT Exam ENT Exam: Mucous Membranes Dry - Respiratory Exam Respiratory Exam: NORMAL BREATHING PATTERN - Cardiovascular Exam Cardiovascular Exam: +S1, +S2 - GI/Abdominal Exam GI & Abdominal Exam: Normal Bowel Sounds - Extremities Exam Extremities exam: Positive for: pedal edema - Psychiatric Exam Psychiatric exam: Normal Affect, Normal Mood - Skin Skin Exam: Warm Results - Vital Signs Recent Vital Signs: Last Vital Signs Temp 97.5 F L 12/08/18 08:07 Pulse 76 12/08/18 18:50 Resp 20 12/08/18 08:07 BP 114/67 12/08/18 18:50 Pulse Ox 99 12/08/18 08:07 - Labs Result Diagrams: 12/08/18 06:00 12/08/18 06:00 Labs: Laboratory Results - last 24 hr 12/07/18 12/08/18 12/08/18 21:36 06:00 06:00 WBC 9.6 RBC 3.01 L Hgb 9.0 L Hct 28.4 L MCV 94.4 MCH 29.9 MCHC 31.7 RDW 17.4 H Plt Count 225 MPV 9.6 Neut % (Auto) 82.5 H Lymph % (Auto) 10.2 L [place] % (Auto) 4.8 Eos % (Auto) 2.3 Baso % (Auto) 0.2 Lymph # (Auto) 1.0 L [place] # (Auto) 0.5 Eos # (Auto) 0.2 Baso # (Auto) 0.02 Absolute Neuts (auto) 7.95 H PT INR APTT Sodium 133 Potassium 4.8 Chloride 106 Carbon Dioxide 19 L Anion Gap 13 BUN 43 H Creatinine 2.0 H Est GFR ( Amer) 30 Est GFR (Non-Af Amer) 24 POC Glucose (mg/dL) 185 H Random Glucose 165 H Calcium 8.0 L Magnesium 1.8 Total Bilirubin 0.3 AST 19 ALT 10 Alkaline Phosphatase 118 Total Protein 5.8 Albumin 2.6 L Globulin 3.2 Albumin/Globulin Ratio 0.8 L 12/08/18 12/08/18 12/08/18 07:05 11:02 16:29 WBC RBC Hgb Hct MCV MCH MCHC RDW Plt Count MPV Neut % (Auto) Lymph % (Auto) [place] % (Auto) Eos % (Auto) Baso % (Auto) Lymph # (Auto) [place] # (Auto) Eos # (Auto) Baso # (Auto) Absolute Neuts (auto) PT INR APTT Sodium Potassium Chloride Carbon Dioxide Anion Gap BUN Creatinine Est GFR ( Amer) Est GFR (Non-Af Amer) POC Glucose (mg/dL) 179 H 215 H 190 H Random Glucose Calcium Magnesium Total Bilirubin AST ALT Alkaline Phosphatase Total Protein Albumin Globulin Albumin/Globulin Ratio 12/08/18 12/08/18 17:15 21:03 WBC RBC Hgb Hct MCV MCH MCHC RDW Plt Count MPV Neut % (Auto) Lymph % (Auto) [place] % (Auto) Eos % (Auto) Baso % (Auto) Lymph # (Auto) [place] # (Auto) Eos # (Auto) Baso # (Auto) Absolute Neuts (auto) PT 16.4 H INR 1.48 APTT 37.4 Sodium Potassium Chloride Carbon Dioxide Anion Gap BUN Creatinine Est GFR ( Amer) Est GFR (Non-Af Amer) POC Glucose (mg/dL) 168 H Random Glucose Calcium Magnesium Total Bilirubin AST ALT Alkaline Phosphatase Total Protein Albumin Globulin Albumin/Globulin Ratio Assessment & Plan (1) DVT (deep venous thrombosis) Assessment and Plan: provoked from immobility agree with therapeutic anticoagulation; will require 3 month minimum duration monitor H/H given +FOBT if H/H stable, can start Eliquis Status: Acute (2) Anemia Assessment and Plan: FOBT +, anemia of CKD and chronic disease will check b12/folate stores transfusion support PRN will give a dose of Aranesp Status: Acute (3) Coagulopathy Assessment and Plan: anticoagulation Thank you for this interesting consult. Status: Acute
[2018-12-08] MEDS: Aztreonam 1 Gm in NS 100mL 100 ML IVPB SCH (22:23)
[2018-12-09 01:53] LABS: INR 1.54; PARTIAL THROMBOPLASTIN TIME 56.3 Seconds (26.9-38.3); PROTHROMBIN TIME 17.1 SECONDS (9.4-12.5)
[2018-12-09 06:36] LABS: BASO # 0.02 K/mm3 (0.0-2.0); BASO % 0.2 % (0.0-3.0); EOS # 0.1 (0.0-0.7); EOS % 0.7 % (1.5-5.0); LYMPH % 8.5 % (22.0-35.0); MEAN CELL VOLUME 95.4 fl (80.0-105.0); MEAN CORPUSCULAR HEMOGLOBIN 29.8 pg (25.0-35.0); MEAN CORPUSCULAR HGB CONC 31.3 g/dl (31.0-37.0); MEAN PLATELET VOLUME 9.5 fl (7.0-11.0); MONO # 0.8 (0.1-0.6); MONO % 6.7 % (1.0-6.0); RBC 3.02 10^6/uL (3.5-6.1); RED CELL DISTRIBUTION WIDTH 17.8 % (11.5-14.5); WHITE BLOOD COUNT 11.6 10^3/uL (4.5-11.0)
[2018-12-09 08:28] LABS: ALB/GLOB RATIO 0.8 (1.1-1.8); ALBUMIN 2.6 g/dL (3.0-4.8)
--- NOTE | 2018-12-09 08:52 | CON ---
DATE OF CONSULTATION: 12/07/2018 CHIEF COMPLAINT: Weakness times several days. HISTORY OF PRESENT ILLNESS: This is a 73-year-old female with past medical history significant for coronary artery disease, coronary artery bypass graft, diabetes mellitus, history of AICD, history of neuropathy, peripheral vascular disease, hyperlipidemia, who was admitted with abdominal pain and weakness times several days, and she had no fevers and no chills. She does have a Port-A-Cath placement for milrinone in home. She also had an AAA repair. She also has an ileostomy bag for ischemic colitis that she had at one time, and states her abdominal pain is improved today, and she is a long-time smoker. REVIEW OF SYSTEMS: Review of systems revealed the patient's 12-point review systems is reviewed. There have been no fevers reported. No chills. Has the abdominal pain. She has had mild chest discomfort on and off, and at this point, she does not have any chest pain. She has mild shortness of breath, and no dysuria or frequency. No headaches or blurred vision. PAST MEDICAL HISTORY: Significant for coronary artery disease, hypertension, peripheral vascular disease, ischemic colitis, myocardial infarction, diabetes mellitus, pancreatitis, renal disease, urinary tract infection, and arthritis. PAST SURGICAL HISTORY: Significant for coronary bypass graft, AICD, Port-A-Cath placement, AAA repair, ileostomy for the ischemic colitis, cholecystectomy. ALLERGIES: THE PATIENT IS ALLERGIC TO AMOXICILLIN, CLAVULANIC ACID, DOXYCYCLINE, AND SHELLFISH. MEDICATIONS: Medications at home are reviewed and noted. The patient is also on dobutamine. PHYSICAL EXAMINATION: GENERAL: She is in bed, in no acute distress, nontoxic, answering questions appropriately; however, chronically ill. VITAL SIGNS: Temperature of 98, blood pressure is 158/92, heart rate of 116, respiratory rate of 20, and the patient's BMI is 22. HEENT: Examination of HEENT is unremarkable. NECK: Supple. LUNGS: Have decreased breath sounds. HEART: Normal S1, S2. ABDOMEN: Soft, nontender. No rebound. No guarding. No masses. EXTREMITIES: Examination of the right heel is noted. LABORATORY DATA: Laboratory examination reveals the patient to have white count of 13,200, hemoglobin of 9. Chemistries revealed a BUN of 44, creatinine of 1.9. Urinalysis is noted to be numerous wbc's and many bacteria. Stool for occult blood is positive. Blood culture, one bottle is positive for staph. There is no further identification if sensitivity is available. The repeat blood cultures from yesterday are no growth. The patient also has Klebsiella pansensitive, Klebsiella in the urine. The patient had a chest x-ray with no active disease. ASSESSMENT AND PLAN: This is a 73-year-old female, diabetes, coronary artery disease, myocardial infarction, neuropathy, ischemic colitis, pacemaker, automatic implantable cardioverter-defibrillator, and a Port-A-Cath, presenting with sepsis with Staph bacteremia, maybe secondary to Port-A-Cath versus the automatic implantable cardioverter-defibrillator versus a contamination. The patient is also with asymptomatic bacteriuria with Klebsiella. We will treat the patient with daptomycin for now pending final repeat cultures, echo results, and an echo was done and results are pending. We will follow the CPK and the final repeat cultures. We will make further recommendations. José Luis Trevino MD
[2018-12-09] MEDS: Aztreonam 1 Gm in NS 100mL 100 ML IVPB SCH ×2 (09:19→21:41)
[2018-12-09] MEDS: Metoprolol Succinate 100 mg XL Tab PO SCH (09:20)
[2018-12-09] MEDS: Digoxin 125 mcg (0.125 mg) Tab PO SCH (09:20)
[2018-12-09] MEDS: Magnesium Oxide 400 mg Tab UD PO SCH ×2 (09:21→17:05)
[2018-12-09] MEDS: Insulin Reg-LOW-Coverage SC SCH ×4 (09:21→21:42)
[2018-12-09] MEDS: Mupirocin 2% Ointment 15 GM TUBE TOP SCH ×2 (09:23→18:15)
[2018-12-09] MEDS ORDERED: Darbepoetin Alfa 100 mcg/ml Inj SC ONE (10:00)
[2018-12-09] MEDS: Heparin25000 units/250ml 1/2NS 25,000 UNITS/250 ML BAG IV PRN (11:20)
--- NOTE | 2018-12-09 12:25 | CP.PCM.PCO ---
Physician Communication Note - Physician Communication Note Physician Communication Note: PICC reinsertion, patient on Dapto and Azactam currently, chronic Dobutumin
--- NOTE | 2018-12-09 12:26 | CP.PCM.PCO ---
Physician Communication Note - Physician Communication Note Physician Communication Note: PT rec BROOK, CM/SW D/C planning
--- NOTE | 2018-12-09 12:32 | CP.PCM.PCO ---
Physician Communication Note - Physician Communication Note Physician Communication Note: patient will need Dapto secondary to resistance
--- NOTE | 2018-12-09 12:51 | CP.PCM.PN ---
Subjective - Date & Time of Evaluation Date of Evaluation: 12/09/18 Time of Evaluation: 12:45 - Subjective Subjective: Podiatry consult note for Dr. Vinnie Cortés, 73 y/o female was seen and evaluated at bedside for a right heel wound. Patient' family is present at bedside. Patient denies any acute overnight events. Patient denies any nausea, vomiting, shortness of breath, chest pain or urinary complaints at this time. Objective - Vital Signs/Intake and Output Vital Signs (last 24 hours): Temp Pulse Resp BP Pulse Ox 98.1 F 115 H 20 141/75 94 L 12/09/18 08:00 12/09/18 10:00 12/09/18 08:00 12/09/18 08:00 12/09/18 08:00 Intake and Output: 12/09/18 12/09/18 06:59 18:59 Intake Total 120 250 Output Total 1000 Balance -880 250 - Medications Medications: Current Medications Acetaminophen (Tylenol 325mg Tab) 650 mg PO Q6H PRN PRN Reason: Pain, moderate (4-7) Last Admin: 12/09/18 09:18 Dose: 650 mg Artificial Tears (Refresh Opth Soln) 0.3 ml OU DAILY PRN PRN Reason: Dry eyes Atorvastatin Calcium (Lipitor) 40 mg PO DAILY [facility] Last Admin: 12/09/18 09:20 Dose: 40 mg Bumetanide (Bumex) 2 mg PO BID [facility] Last Admin: 12/09/18 09:20 Dose: 2 mg Calcitriol (Rocaltrol) 0.25 mcg PO [facility] [place] [place] Last Admin: 12/09/18 09:20 Dose: 0.25 mcg Calcium Carbonate (Oscal) 500 mg PO DAILY [facility] Last Admin: 12/09/18 09:20 Dose: 500 mg Dextrose (Dextrose 50% Inj) 0 ml IV STAT PRN; Protocol PRN Reason: Hypoglycemia Protocol Digoxin (Digoxin) 0.125 mg PO F [facility] Last Admin: 12/09/18 09:20 Dose: 0.125 mg Hydromorphone HCl (Dilaudid) 0.5 mg IVP Q8H PRN PRN Reason: Pain, severe (8-10) Last Admin: 12/08/18 22:25 Dose: 0.5 mg Dextrose (Dextrose 5% In Water 1000 Ml) 1,000 mls @ 0 mls/hr IV .Q0M PRN; Protocol PRN Reason: Hypoglycemia Protocol Aztreonam (Azactam 1 Gm) 100 mls @ 100 mls/hr IVPB Q12 [facility]; Protocol Stop: 12/15/18 22:01 Last Admin: 12/09/18 09:19 Dose: 100 mls/hr Heparin Sodium/Sodium Chloride (Heparin 29624 Units/250ml 1/2 Normal Saline) 25,000 units in 250 mls @ 11.953 mls/hr IV .[id number] PRN; Protocol PRN Reason: ADJUST RATE PER PROTOCOL Last Admin: 12/09/18 11:20 Dose: 19.42 units/kg/hr, 12.9 mls/hr Dobutamine HCl/Dextrose (Dobutamine/Dextrose 5% 500mg/250ml) 500 mg in 250 mls @ 9.961 mls/hr IV .Q24H [facility] Last Admin: 12/08/18 18:50 Dose: 9.961 mls/hr Daptomycin 400 mg/ Sodium (Chloride) 100 mls @ 200 mls/hr IV Q48H [facility] Stop: 12/14/18 06:01 Insulin Human Regular (Humulin R Low) 0 units SC ACHS [facility]; Protocol Last Admin: 12/09/18 09:21 Dose: 1 unit Isosorbide Mononitrate (Imdur) 120 mg PO DAILY [facility] Last Admin: 12/09/18 09:20 Dose: 120 mg Magnesium Oxide (Mag-Ox) 400 mg PO BID [facility] Last Admin: 12/09/18 09:21 Dose: 400 mg Metoprolol Succinate (Toprol Xl) 100 mg PO DAILY [facility] Last Admin: 12/09/18 09:20 Dose: 100 mg Mupirocin (Bactroban Ointment) 10 gm TOP BID [facility] Last Admin: 12/09/18 09:23 Dose: 1 applic Ondansetron HCl (Zofran Inj) 4 mg IVP Q4 PRN PRN Reason: Nausea/Vomiting Pantoprazole Sodium (Protonix Inj) 40 mg IVP Q12 [facility] Last Admin: 12/09/18 09:21 Dose: 40 mg Primidone (Mysoline) 50 mg PO HS [facility] Last Admin: 12/08/18 22:24 Dose: 50 mg Tamsulosin HCl (Flomax) 0.4 mg PO HS [facility] Last Admin: 12/08/18 22:24 Dose: 0.4 mg - Labs Labs: 12/09/18 06:15 12/09/18 08:00 PT 17.1 SECONDS (9.4-12.5) H 12/09/18 01:33 INR 1.54 12/09/18 01:33 APTT 45.8 Seconds (26.9-38.3) H 12/09/18 08:00 - Constitutional Appears: Well, Non-toxic, No Acute Distress - Head Exam Head Exam: ATRAUMATIC, NORMOCEPHALIC - Extremities Exam Additional comments: Bilateral Lower Extremity exam VASC: DP and PT 2/4 bilaterally, CFT less than 3 seconds to the remaining digit s, no edema noted, TG within normal limits DERM: RIGHT- decubitus tissue injury noted to the right heel significantly improving, wound is superficial with no surrounding erythema at this time, no probe to bone, no malodor, no signs of infection, no drainage, no malodor LEFT- hyperkeratotic lesions noted to the left hallux amputation site, no open wounds, no probe to bone, no malodor, no signs of infection, no drainage, no malodor NEURO: grossly intact bilaterally ORTHO: pain on palpation to the wound site, minimal pain with range of motion, muscular strength 5/5 - Neurological Exam Neurological Exam: Alert, Awake, Oriented x3 Neuro motor strength exam: Left Upper Extremity: 0, Right Upper Extremity: 0, Left Lower Extremity: 0, Right Lower Extremity: 0 - Psychiatric Exam Psychiatric exam: Normal Affect, Normal Mood Assessment and Plan - Assessment and Plan (Free Text) Assessment: 73 y/o female patient seen and evaluated at bedside for stable right heel wound Plan: Patient seen and evaluated Plan discussed with Dr. Cortés Chart, labs and vitals were reviewed- afebrile, positive leukocytosis WBC 11.6 likely secondary to UTI vs. bacteremia Patient wound stable at this time from Podiatric standpoint, non-infected Patient right heel to be dressed with bactroban and Optifoam Patient advised to use pillow to keep the right heel elevated at all time Patient and family demonstrated verbal understanding Podiatry will continue to follow the patient
--- NOTE | 2018-12-09 13:56 | CP.PCM.PN ---
<Martin Ochoa - Last Filed: 12/09/18 13:48> Subjective - Date & Time of Evaluation Date of Evaluation: 12/09/18 Time of Evaluation: 13:48 - Subjective Subjective: Martin Ochoa, PGY-1, Internal Medicine Progress Note for Dr. Gusman Patient seen and evaluated at bedside. Patient had no acute overnight events. Patient today reports right upper leg pain, however, this pain has been chronic as patient has chronic hip pain. Patient has adequate stool output in ostomy. Today, patient feels well and denies all symptoms including fever, chest pain, headache, shortness of breath, nausea, vomiting, dysuria, hematuria, numbness/ tingling. 12-point ROS was unremarkable except for what was mentioned above. Objective - Vital Signs/Intake and Output Vital Signs (last 24 hours): Temp Pulse Resp BP Pulse Ox 98.1 F 115 H 20 141/75 94 L 12/09/18 08:00 12/09/18 10:00 12/09/18 08:00 12/09/18 08:00 12/09/18 08:00 Intake and Output: 12/09/18 12/09/18 06:59 18:59 Intake Total 120 250 Output Total 1000 Balance -880 250 - Medications Medications: Current Medications Acetaminophen (Tylenol 325mg Tab) 650 mg PO Q6H PRN PRN Reason: Pain, moderate (4-7) Last Admin: 12/09/18 09:18 Dose: 650 mg Artificial Tears (Refresh Opth Soln) 0.3 ml OU DAILY PRN PRN Reason: Dry eyes Atorvastatin Calcium (Lipitor) 40 mg PO DAILY [facility] Last Admin: 12/09/18 09:20 Dose: 40 mg Bumetanide (Bumex) 2 mg PO BID [facility] Last Admin: 12/09/18 09:20 Dose: 2 mg Calcitriol (Rocaltrol) 0.25 mcg PO MWF [facility] Last Admin: 12/09/18 09:20 Dose: 0.25 mcg Calcium Carbonate (Oscal) 500 mg PO DAILY [facility] Last Admin: 12/09/18 09:20 Dose: 500 mg Dextrose (Dextrose 50% Inj) 0 ml IV STAT PRN; Protocol PRN Reason: Hypoglycemia Protocol Digoxin (Digoxin) 0.125 mg PO MWF [facility] Last Admin: 12/09/18 09:20 Dose: 0.125 mg Hydromorphone HCl (Dilaudid) 0.5 mg IVP Q8H PRN PRN Reason: Pain, severe (8-10) Last Admin: 12/08/18 22:25 Dose: 0.5 mg Dextrose (Dextrose 5% In Water 1000 Ml) 1,000 mls @ 0 mls/hr IV .Q0M PRN; Protocol PRN Reason: Hypoglycemia Protocol Aztreonam (Azactam 1 Gm) 100 mls @ 100 mls/hr IVPB Q12 [facility]; Protocol Stop: 12/15/18 22:01 Last Admin: 12/09/18 09:19 Dose: 100 mls/hr Heparin Sodium/Sodium Chloride (Heparin 59440 Units/250ml 1/2 Normal Saline) 25,000 units in 250 mls @ 11.953 mls/hr IV .[id number] PRN; Protocol PRN Reason: ADJUST RATE PER PROTOCOL Last Admin: 12/09/18 11:20 Dose: 19.42 units/kg/hr, 12.9 mls/hr Dobutamine HCl/Dextrose (Dobutamine/Dextrose 5% 500mg/250ml) 500 mg in 250 mls @ 9.961 mls/hr IV .Q24H [facility] Last Admin: 12/08/18 18:50 Dose: 9.961 mls/hr Daptomycin 400 mg/ Sodium (Chloride) 100 mls @ 200 mls/hr IV Q48H [facility] Stop: 12/14/18 06:01 Last Admin: 12/09/18 08:00 Dose: Not Given Insulin Human Regular (Humulin R Low) 0 units SC ACHS [facility]; Protocol Last Admin: 12/09/18 09:21 Dose: 1 unit Isosorbide Mononitrate (Imdur) 120 mg PO DAILY [facility] Last Admin: 12/09/18 09:20 Dose: 120 mg Magnesium Oxide (Mag-Ox) 400 mg PO BID [facility] Last Admin: 12/09/18 09:21 Dose: 400 mg Metoprolol Succinate (Toprol Xl) 100 mg PO DAILY [facility] Last Admin: 12/09/18 09:20 Dose: 100 mg Mupirocin (Bactroban Ointment) 10 gm TOP BID [facility] Last Admin: 12/09/18 09:23 Dose: 1 applic Ondansetron HCl (Zofran Inj) 4 mg IVP Q4 PRN PRN Reason: Nausea/Vomiting Pantoprazole Sodium (Protonix Inj) 40 mg IVP Q12 [facility] Last Admin: 12/09/18 09:21 Dose: 40 mg Primidone (Mysoline) 50 mg PO [facility] Last Admin: 12/08/18 22:24 Dose: 50 mg Tamsulosin HCl (Flomax) 0.4 mg PO [facility] Last Admin: 12/08/18 22:24 Dose: 0.4 mg - Labs Labs: 12/09/18 06:15 12/09/18 08:00 PT 17.1 SECONDS (9.4-12.5) H 12/09/18 01:33 INR 1.54 12/09/18 01:33 APTT 45.8 Seconds (26.9-38.3) H 12/09/18 08:00 - Constitutional Appears: Well, Non-toxic, No Acute Distress - Head Exam Head Exam: ATRAUMATIC, NORMAL INSPECTION, NORMOCEPHALIC - Eye Exam Eye Exam: EOMI Pupil Exam: PERRL - Respiratory Exam Respiratory Exam: Clear to Ausculation Bilateral, NORMAL BREATHING PATTERN - Cardiovascular Exam Cardiovascular Exam: REGULAR RHYTHM - GI/Abdominal Exam GI & Abdominal Exam: Soft, Normal Bowel Sounds. absent: Tenderness Additional comments: ostomy intact and with hard brown stool - Extremities Exam Extremities Exam: Full ROM. absent: Calf Tenderness - Neurological Exam Neurological Exam: Alert, Awake, CN II-XII Intact, Oriented x3 - Skin Skin Exam: Dry, Intact, Normal Color Assessment and Plan - Assessment and Plan (Free Text) Assessment: 73 year old with past medical history of CAD s/p CABG, DM II, systolic CHF s/p AICD placement, dilated cardiomyopathy on home dobutamine, neuropathy, PVD, HLD, ileostomy for ischemic colitis, chronic hip and knee pain, CKD stage 4, chronic sacral ulcer presented with partial SBO which has now resolved. Patient also was found to have gram + bacteremia on 12/06 and PICC line was removed. Repeat blood cultures were negative. Patient was found to have UTI treated with levaquin. FOBT was found to be positive and is status post 1 U of PRBCs. Patient was recently found to have left subclavian vein thrombus and started on heparin drip. Patient has had episodes of nonsustained ventricular tachycardia. Plan: Gram positive bacteremia -Blood culture 12/05: Staphylococcus epidermitis -Repeat blood culture on 12/06 was negative for 48 hours and on 12/08 was negative for 24 hours -Likely source is PICC line -PICC line has now been removed. -Patient can likely now have PICC line placed again. -Continue with daptomycin and aztreonam day 2. Treatment duration is 5-7 days Urinary tract infection -Urine culture: Klebsiella pneumoniae -UA: more than 200 protein, trace intact blood, moderate leukocyte esterase, tntc wbc, many bacteria -Continue with daptomycin and aztreonam day 2 Left subclavian vein thrombosis -Visualized on upper extremity ultrasound -Treated with heparin drip at 18 U/kg/hr. -Bridge with warfarin 5 mg daily. CKD stage IV -BUN/CR: 47/1.9 from creatinine of 2 yesterday. -Baseline creatinine is 1.7-2.0 -Hyponatremia at 130 from 133 -Bicarbonate value decreased to 15 from 19. -Aranesp dose given -Avoid nephrotoxins such as lisinopril, losartan, IV contrast Partial SBO-resolved -patient tolerating heart healthy diet -patient has adequate stool output -Continue with zofran PRN for nausea and protonix 40 Q12 Normocytic Anemia -Status post 1 U of PRBCs -FOBT was positive -Hemoglobin has been stable at 9. -Goal hemoglobin should be more than 8 due to myriad of cardiac problems Dilated cardiomyopathy with EF 46.6% -Continue with dobutamine drip as per Cardiology. -Continue with aspirin, lipitor, metoprolol, digoxin, isosorbide nitrate, and bumex as per cardiology CAD s/p CABG -Continue with home aspirin, lipitor, metoprolol, isosorbide nitrate Essential tremor -Continue with home primidone Diabetes mellitus type II -Random glucose: 183 -Continue with low SSI -Maintain euglycemia. GI prophylaxis: protonix 40 mg Q12 DVT prophylaxis: coumadin Patient plan discussed with attending. <Hermila Gusman - Last Filed: 12/09/18 15:37> Objective - Vital Signs/Intake and Output Vital Signs (last 24 hours): Temp Pulse Resp BP Pulse Ox 98.1 F 115 H 20 141/75 94 L 12/09/18 08:00 12/09/18 10:00 12/09/18 08:00 12/09/18 08:00 12/09/18 08:00 Intake and Output: 12/09/18 12/09/18 06:59 18:59 Intake Total 120 250 Output Total 1000 Balance -880 250 - Medications Medications: Current Medications Acetaminophen (Tylenol 325mg Tab) 650 mg PO Q6H PRN PRN Reason: Pain, moderate (4-7) Last Admin: 12/09/18 15:04 Dose: 650 mg Artificial Tears (Refresh Opth Soln) 0.3 ml OU DAILY PRN PRN Reason: Dry eyes Atorvastatin Calcium (Lipitor) 40 mg PO DAILY [facility] Last Admin: 12/09/18 09:20 Dose: 40 mg Bumetanide (Bumex) 2 mg PO BID [facility] Last Admin: 12/09/18 09:20 Dose: 2 mg Calcitriol (Rocaltrol) 0.25 mcg PO [facility] Last Admin: 12/09/18 09:20 Dose: 0.25 mcg Calcium Carbonate (Oscal) 500 mg PO DAILY [facility] Last Admin: 12/09/18 09:20 Dose: 500 mg Dextrose (Dextrose 50% Inj) 0 ml IV STAT PRN; Protocol PRN Reason: Hypoglycemia Protocol Digoxin (Digoxin) 0.125 mg PO [facility] Last Admin: 12/09/18 09:20 Dose: 0.125 mg Hydromorphone HCl (Dilaudid) 0.5 mg IVP Q8H PRN PRN Reason: Pain, severe (8-10) Last Admin: 12/08/18 22:25 Dose: 0.5 mg Dextrose (Dextrose 5% In Water 1000 Ml) 1,000 mls @ 0 mls/hr IV .Q0M PRN; Protocol PRN Reason: Hypoglycemia Protocol Aztreonam (Azactam 1 Gm) 100 mls @ 100 mls/hr IVPB Q12 [facility]; Protocol Stop: 12/15/18 22:01 Last Admin: 12/09/18 09:19 Dose: 100 mls/hr Dobutamine HCl/Dextrose (Dobutamine/Dextrose 5% 500mg/250ml) 500 mg in 250 mls @ 9.961 mls/hr IV .Q24H [facility] Last Admin: 12/08/18 18:50 Dose: 9.961 mls/hr Daptomycin 400 mg/ Sodium (Chloride) 100 mls @ 200 mls/hr IV Q48H [facility] Stop: 12/14/18 06:01 Last Admin: 12/09/18 08:00 Dose: Not Given Heparin Sodium/Sodium Chloride (Heparin 79913 Units/250ml 1/2 Normal Saline) 25,000 units in 250 mls @ 11.953 mls/hr IV .[id number] PRN; Protocol PRN Reason: ADJUST RATE PER PROTOCOL Insulin Human Regular (Humulin R Low) 0 units SC ACHS [facility]; Protocol Last Admin: 12/09/18 09:21 Dose: 1 unit Isosorbide Mononitrate (Imdur) 120 mg PO DAILY [facility] Last Admin: 12/09/18 09:20 Dose: 120 mg Magnesium Oxide (Mag-Ox) 400 mg PO BID [facility] Last Admin: 12/09/18 09:21 Dose: 400 mg Metoprolol Succinate (Toprol Xl) 100 mg PO DAILY [facility] Last Admin: 12/09/18 09:20 Dose: 100 mg Mupirocin (Bactroban Ointment) 10 gm TOP BID [facility] Last Admin: 12/09/18 09:23 Dose: 1 applic Ondansetron HCl (Zofran Inj) 4 mg IVP Q4 PRN PRN Reason: Nausea/Vomiting Pantoprazole Sodium (Protonix Inj) 40 mg IVP Q12 [facility] Last Admin: 12/09/18 09:21 Dose: 40 mg Primidone (Mysoline) 50 mg PO HS [facility] Last Admin: 12/08/18 22:24 Dose: 50 mg Tamsulosin HCl (Flomax) 0.4 mg PO HS [facility] Last Admin: 12/08/18 22:24 Dose: 0.4 mg Warfarin Sodium (Coumadin) 5 mg PO 1800 [facility]; Protocol - Labs Labs: 12/09/18 06:15 12/09/18 08:00 PT 17.1 SECONDS (9.4-12.5) H 12/09/18 01:33 INR 1.54 12/09/18 01:33 APTT 45.8 Seconds (26.9-38.3) H 12/09/18 08:00 Attending/Attestation - Attestation I have personally seen and examined this patient.: Yes I have fully participated in the care of the patient.: Yes I have reviewed all pertinent clinical information, including history, physical exam and plan: Yes Notes (Text): 12/09/18 15:14 73 year old female with past medical history of CAD s/p CABG, systolic CHF s/p AICD, dilated cardiomyopathy on home dobutamine, history of ischemic colitis s/p ileostomy, and CKD who presented initally with abdominal pain found to have partial SBO, now resolved. GI/Surgery are following; recommended conservative management. She was also found to have staph epidermidis bacteremia for which she is on antibiotics. Repeat cultures are negative. Picc line was removed. Will replace. ID is following. Continue with antibiotics for klebsiella UTI. She is on anticoagulation for left subclavian vein thrombus. Hematology is following. Hermila Gusman MD Hospitalist.
--- NOTE | 2018-12-09 13:58 | CP.PCM.PN ---
Subjective - Date & Time of Evaluation Date of Evaluation: 12/09/18 Time of Evaluation: 11:45 - Subjective Subjective: Patient is feeling a little better, no fevers, abdominal pain and discomfort is improving. PICC was removed yesterday. Objective - Vital Signs/Intake and Output Vital Signs (last 24 hours): Temp Pulse Resp BP Pulse Ox 97.5 F L 93 H 20 114/67 99 12/08/18 08:07 12/08/18 15:57 12/08/18 08:07 12/08/18 15:57 12/08/18 08:07 Intake and Output: 12/08/18 12/08/18 06:59 18:59 Intake Total 60 Output Total 605 Balance -545 - Medications Medications: Current Medications Acetaminophen (Tylenol 325mg Tab) 650 mg PO Q6H PRN PRN Reason: Pain, moderate (4-7) Last Admin: 12/04/18 21:00 Dose: 650 mg Atorvastatin Calcium (Lipitor) 40 mg PO DAILY [facility] Last Admin: 12/08/18 10:00 Dose: 40 mg Bumetanide (Bumex) 2 mg PO BID [facility] Last Admin: 12/08/18 10:06 Dose: 2 mg Calcitriol (Rocaltrol) 0.25 mcg PO MWF [facility] Last Admin: 12/06/18 09:58 Dose: 0.25 mcg Calcium Carbonate (Oscal) 500 mg PO DAILY [facility] Last Admin: 12/08/18 10:00 Dose: 500 mg Dextrose (Dextrose 50% Inj) 0 ml IV STAT PRN; Protocol PRN Reason: Hypoglycemia Protocol Digoxin (Digoxin) 0.125 mg PO [facility] Last Admin: 12/06/18 09:59 Dose: 0.125 mg Hydromorphone HCl (Dilaudid) 0.5 mg IVP Q8H PRN PRN Reason: Pain, severe (8-10) Dextrose (Dextrose 5% In Water 1000 Ml) 1,000 mls @ 0 mls/hr IV .Q0M PRN; Protocol PRN Reason: Hypoglycemia Protocol Dobutamine HCl 250 mg/ Sodium (Chloride) 250 mls @ 19.92 mls/hr IV .[id number] [facility] Last Admin: 12/08/18 15:57 Dose: 19.92 mls/hr Daptomycin 400 mg/ Sodium (Chloride) 100 mls @ 200 mls/hr IV Q48H [id number] Stop: 12/13/18 10:01 Last Admin: 12/08/18 10:45 Dose: Not Given Aztreonam (Azactam 1 Gm) 100 mls @ 100 mls/hr IVPB Q12 [facility]; Protocol Stop: 12/15/18 22:01 Heparin Sodium/Sodium Chloride (Heparin 27937 Units/250ml 1/2 Normal Saline) 25,000 units in 250 mls @ 11.953 mls/hr IV .[id number] PRN; Protocol PRN Reason: ADJUST RATE PER PROTOCOL Insulin Human Regular (Humulin R Low) 0 units SC ACHS [facility]; Protocol Last Admin: 12/08/18 11:41 Dose: 2 u Isosorbide Mononitrate (Imdur) 120 mg PO DAILY [facility] Last Admin: 12/08/18 10:00 Dose: 120 mg Magnesium Oxide (Mag-Ox) 400 mg PO BID [facility] Last Admin: 12/08/18 10:00 Dose: 400 mg Metoprolol Succinate (Toprol Xl) 100 mg PO DAILY [facility] Last Admin: 12/08/18 10:00 Dose: 100 mg Mupirocin (Bactroban Ointment) 10 gm TOP BID [facility] Last Admin: 12/08/18 10:01 Dose: 1 applic Ondansetron HCl (Zofran Inj) 4 mg IVP Q4 PRN PRN Reason: Nausea/Vomiting Pantoprazole Sodium (Protonix Inj) 40 mg IVP Q12 [facility] Last Admin: 12/08/18 10:05 Dose: 40 mg Primidone (Mysoline) 50 mg PO HS [facility] Last Admin: 12/07/18 22:08 Dose: 50 mg Tamsulosin HCl (Flomax) 0.4 mg PO HS [facility] Last Admin: 12/07/18 22:08 Dose: 0.4 mg - Labs Labs: 12/08/18 06:00 12/08/18 06:00 PT 13.8 SECONDS (9.4-12.5) H 12/04/18 07:50 INR 1.22 12/04/18 07:50 APTT 33.4 Seconds (26.9-38.3) 12/04/18 07:50 - Constitutional Appears: Chronically Ill - Head Exam Head Exam: NORMAL INSPECTION - ENT Exam ENT Exam: Mucous Membranes Moist - Neck Exam Neck Exam: absent: Meningismus - Respiratory Exam Respiratory Exam: Decreased Breath Sounds - Cardiovascular Exam Cardiovascular Exam: +S1, +S2 - GI/Abdominal Exam GI & Abdominal Exam: Soft. absent: Tenderness Additional comments: colostomy in place Assessment and Plan - Assessment and Plan (Free Text) Plan: Assessment Staph epidemidis bacteremia, R/O related to PICC line S/P removal of PICC line 12/08/2018 R/O UTI with Klebsiella history of hematuria and urinary retention R/O UTI with E. faecalis, S/P treatment with antibiotics S/P left leg cellulitis as well as right sided community-acquired pneumonia S/P left foot 2nd digit skin and skin structure infection CAD S/P CABG abdominal aortic aneurysm S/P repair S/P cholecystectomy S/P pacemaker placement DM S/P left toe amputation Plan continue Daptomycin (Day 2 from time of PICC removal) and azactam; repeat blood cx are negative; now that it is removed, need 5-7 days of IV antibiotics will continue to monitor clinically
--- NOTE | 2018-12-09 14:21 | CP.PCM.PN ---
<Molly Shaver - Last Filed: 12/09/18 14:17> Subjective - Date & Time of Evaluation Date of Evaluation: 12/09/18 Time of Evaluation: 06:50 - Subjective Subjective: PGY5 GI Follow-up Pt seen and examined bedside tolerating diet has output in ileostomy ROS: 12 point ROS conducted neg other than above Objective - Vital Signs/Intake and Output Vital Signs (last 24 hours): Temp Pulse Resp BP Pulse Ox 98.1 F 115 H 20 141/75 94 L 12/09/18 08:00 12/09/18 10:00 12/09/18 08:00 12/09/18 08:00 12/09/18 08:00 Intake and Output: 12/09/18 12/09/18 06:59 18:59 Intake Total 120 250 Output Total 1000 Balance -880 250 - Medications Medications: Current Medications Acetaminophen (Tylenol 325mg Tab) 650 mg PO Q6H PRN PRN Reason: Pain, moderate (4-7) Last Admin: 12/09/18 09:18 Dose: 650 mg Apixaban (Eliquis) 10 mg PO BID [facility]; Protocol Stop: 12/12/18 10:01 Artificial Tears (Refresh Opth Soln) 0.3 ml OU DAILY PRN PRN Reason: Dry eyes Atorvastatin Calcium (Lipitor) 40 mg PO DAILY [facility] Last Admin: 12/09/18 09:20 Dose: 40 mg Bumetanide (Bumex) 2 mg PO BID [facility] Last Admin: 12/09/18 09:20 Dose: 2 mg Calcitriol (Rocaltrol) 0.25 mcg PO F [facility] Last Admin: 12/09/18 09:20 Dose: 0.25 mcg Calcium Carbonate (Oscal) 500 mg PO DAILY [facility] Last Admin: 12/09/18 09:20 Dose: 500 mg Dextrose (Dextrose 50% Inj) 0 ml IV STAT PRN; Protocol PRN Reason: Hypoglycemia Protocol Digoxin (Digoxin) 0.125 mg PO F [facility] Last Admin: 12/09/18 09:20 Dose: 0.125 mg Hydromorphone HCl (Dilaudid) 0.5 mg IVP Q8H PRN PRN Reason: Pain, severe (8-10) Last Admin: 12/08/18 22:25 Dose: 0.5 mg Dextrose (Dextrose 5% In Water 1000 Ml) 1,000 mls @ 0 mls/hr IV .Q0M PRN; Protocol PRN Reason: Hypoglycemia Protocol Aztreonam (Azactam 1 Gm) 100 mls @ 100 mls/hr IVPB Q12 [id number]; Protocol Stop: 12/15/18 22:01 Last Admin: 12/09/18 09:19 Dose: 100 mls/hr Heparin Sodium/Sodium Chloride (Heparin 43904 Units/250ml 1/2 Normal Saline) 25,000 units in 250 mls @ 11.953 mls/hr IV .[id number] PRN; Protocol PRN Reason: ADJUST RATE PER PROTOCOL Stop: 12/09/18 17:59 Last Admin: 12/09/18 11:20 Dose: 19.42 units/kg/hr, 12.9 mls/hr Dobutamine HCl/Dextrose (Dobutamine/Dextrose 5% 500mg/250ml) 500 mg in 250 mls @ 9.961 mls/hr IV .Q24H [facility] Last Admin: 12/08/18 18:50 Dose: 9.961 mls/hr Daptomycin 400 mg/ Sodium (Chloride) 100 mls @ 200 mls/hr IV Q48H [facility] Stop: 12/14/18 06:01 Last Admin: 12/09/18 08:00 Dose: Not Given Insulin Human Regular (Humulin R Low) 0 units SC ACHS [facility]; Protocol Last Admin: 12/09/18 09:21 Dose: 1 unit Isosorbide Mononitrate (Imdur) 120 mg PO DAILY [facility] Last Admin: 12/09/18 09:20 Dose: 120 mg Magnesium Oxide (Mag-Ox) 400 mg PO BID [facility] Last Admin: 12/09/18 09:21 Dose: 400 mg Metoprolol Succinate (Toprol Xl) 100 mg PO DAILY [facility] Last Admin: 12/09/18 09:20 Dose: 100 mg Mupirocin (Bactroban Ointment) 10 gm TOP BID [facility] Last Admin: 12/09/18 09:23 Dose: 1 applic Ondansetron HCl (Zofran Inj) 4 mg IVP Q4 PRN PRN Reason: Nausea/Vomiting Pantoprazole Sodium (Protonix Inj) 40 mg IVP Q12 [facility] Last Admin: 12/09/18 09:21 Dose: 40 mg Primidone (Mysoline) 50 mg PO [facility] Last Admin: 12/08/18 22:24 Dose: 50 mg Tamsulosin HCl (Flomax) 0.4 mg PO [facility] Last Admin: 12/08/18 22:24 Dose: 0.4 mg - Labs Labs: 12/09/18 06:15 12/09/18 08:00 PT 17.1 SECONDS (9.4-12.5) H 12/09/18 01:33 INR 1.54 12/09/18 01:33 APTT 45.8 Seconds (26.9-38.3) H 12/09/18 08:00 - Constitutional Appears: Well, No Acute Distress - Head Exam Head Exam: ATRAUMATIC, NORMOCEPHALIC - Eye Exam Eye Exam: Normal appearance - ENT Exam ENT Exam: Mucous Membranes Moist, Normal Exam - Neck Exam Neck Exam: Normal Inspection - Respiratory Exam Respiratory Exam: Clear to Ausculation Bilateral, NORMAL BREATHING PATTERN. absent: Rhonchi, Wheezes, Respiratory Distress - Cardiovascular Exam Cardiovascular Exam: REGULAR RHYTHM, +S1, +S2 - GI/Abdominal Exam GI & Abdominal Exam: Soft, Normal Bowel Sounds. absent: Distended, Firm, Guarding, Rigid, Tenderness, Organomegaly, Rebound Additional comments: ileostomy intact, brown liquid stool in bag - Extremities Exam Extremities Exam: absent: Joint Swelling, Pedal Edema - Neurological Exam Neurological Exam: Alert, Awake, Oriented x3 - Psychiatric Exam Psychiatric exam: Normal Affect, Normal Mood - Skin Skin Exam: Dry, Intact, Normal Color, Warm Assessment and Plan - Assessment and Plan (Free Text) Assessment: Abdominal pain likley secondary to PSBO Severe pulmonary HTN Partial small bowel obstruction, transition zone Parastomal hernia no incarceration Anemia Ileostomy CAD s/p CABG DM type II Bacteremia PLAN: Tolerating diet continue PPI monitor H/h for overt GI bleeding Review of echo show significant abnormalities including RVSP of 84. On chronic dobutamine Would not recommend endoscopy at this time. There is no signs of significant bleeding and there is significant risk to the patient for anaesthesia. Continue PPI and conservative management. Hb has been stable since transfusion. F/U as oupt Case discussed with Dr. Tomas, see attestation. <Crystal Tomas V - Last Filed: 12/09/18 23:42> Objective - Vital Signs/Intake and Output Vital Signs (last 24 hours): Temp Pulse Resp BP Pulse Ox 98.4 F 103 H 20 136/85 98 12/09/18 17:52 12/09/18 22:00 12/09/18 17:52 12/09/18 17:52 12/09/18 17:52 Intake and Output: 12/09/18 12/10/18 18:59 06:59 Intake Total 250 800 Output Total 600 Balance 250 200 - Medications Medications: Current Medications Acetaminophen (Tylenol 325mg Tab) 650 mg PO Q6H PRN PRN Reason: Pain, moderate (4-7) Last Admin: 12/09/18 15:04 Dose: 650 mg Artificial Tears (Refresh Opth Soln) 0.3 ml OU DAILY PRN PRN Reason: Dry eyes Atorvastatin Calcium (Lipitor) 40 mg PO DAILY [facility] Last Admin: 12/09/18 09:20 Dose: 40 mg Bumetanide (Bumex) 2 mg PO BID [facility] Last Admin: 12/09/18 17:06 Dose: 2 mg Calcitriol (Rocaltrol) 0.25 mcg PO [facility] Last Admin: 12/09/18 09:20 Dose: 0.25 mcg Calcium Carbonate (Oscal) 500 mg PO DAILY [facility] Last Admin: 12/09/18 09:20 Dose: 500 mg Dextrose (Dextrose 50% Inj) 0 ml IV STAT PRN; Protocol PRN Reason: Hypoglycemia Protocol Digoxin (Digoxin) 0.125 mg PO F [facility] Last Admin: 12/09/18 09:20 Dose: 0.125 mg Hydromorphone HCl (Dilaudid) 0.5 mg IVP Q8H PRN PRN Reason: Pain, severe (8-10) Last Admin: 12/09/18 23:16 Dose: 0.5 mg Dextrose (Dextrose 5% In Water 1000 Ml) 1,000 mls @ 0 mls/hr IV .Q0M PRN; Protocol PRN Reason: Hypoglycemia Protocol Aztreonam (Azactam 1 Gm) 100 mls @ 100 mls/hr IVPB Q12 [facility]; Protocol Stop: 12/15/18 22:01 Last Admin: 12/09/18 21:41 Dose: 100 mls/hr Dobutamine HCl/Dextrose (Dobutamine/Dextrose 5% 500mg/250ml) 500 mg in 250 mls @ 9.961 mls/hr IV .Q24H [facility] Last Admin: 12/09/18 18:17 Dose: 9.961 mls/hr Daptomycin 400 mg/ Sodium (Chloride) 100 mls @ 200 mls/hr IV Q48H [facility] Stop: 12/14/18 06:01 Last Admin: 12/09/18 08:00 Dose: Not Given Heparin Sodium/Sodium Chloride (Heparin 55656 Units/250ml 1/2 Normal Saline) 25,000 units in 250 mls @ 11.953 mls/hr IV .[id number] PRN; Protocol PRN Reason: ADJUST RATE PER PROTOCOL Last Admin: 12/09/18 17:06 Dose: 19.42 units/kg/hr, 12.9 mls/hr Insulin Human Regular (Humulin R Low) 0 units SC ACHS [facility]; Protocol Last Admin: 12/09/18 21:42 Dose: Not Given Isosorbide Mononitrate (Imdur) 120 mg PO DAILY [facility] Last Admin: 12/09/18 09:20 Dose: 120 mg Magnesium Oxide (Mag-Ox) 400 mg PO BID [facility] Last Admin: 12/09/18 17:05 Dose: 400 mg Metoprolol Succinate (Toprol Xl) 100 mg PO DAILY [facility] Last Admin: 12/09/18 09:20 Dose: 100 mg Mupirocin (Bactroban Ointment) 10 gm TOP BID [facility] Last Admin: 12/09/18 18:15 Dose: Not Given Ondansetron HCl (Zofran Inj) 4 mg IVP Q4 PRN PRN Reason: Nausea/Vomiting Pantoprazole Sodium (Protonix Inj) 40 mg IVP Q12 [facility] Last Admin: 12/09/18 21:43 Dose: 40 mg Primidone (Mysoline) 50 mg PO HS [facility] Last Admin: 12/09/18 21:42 Dose: 50 mg Tamsulosin HCl (Flomax) 0.4 mg PO HS [facility] Last Admin: 12/09/18 21:42 Dose: 0.4 mg Warfarin Sodium (Coumadin) 5 mg PO 1800 [facility]; Protocol Last Admin: 12/09/18 17:05 Dose: 5 mg - Labs Labs: 12/09/18 06:15 12/09/18 08:00 PT 17.1 SECONDS (9.4-12.5) H 12/09/18 01:33 INR 1.54 12/09/18 01:33 APTT 58.5 Seconds (26.9-38.3) H 12/09/18 20:22 Attending/Attestation - Attestation I have personally seen and examined this patient.: Yes I have fully participated in the care of the patient.: Yes I have reviewed all pertinent clinical information, including history, physical exam and plan: Yes Notes (Text): This is an addendum to GI progress report dictated by the GI Fellow.The patient was seen and examined earlier. Medical records, lab studies, imagings were reviewed. Last 24 hours events reviewed. Agreed with the above treatment plan as outlined in GI Fellow 's notes with the addition of the following 12/09/18 23:41
[2018-12-09] MEDS ORDERED: Heparin25000 units/250ml 1/2NS 25,000 UNITS/250 ML BAG IV PRN (14:37)
[2018-12-09] MEDS: Lubricant Eye Drops UD OU PRN (15:45)
[2018-12-09] MEDS: HYDROmorphone 0.5 mg/0.5 ml ISec IVP PRN ×2 (17:06→23:16)
--- NOTE | 2018-12-09 17:52 | PN ---
DATE: 12/09/2018 SUBJECTIVE: The patient had 5-beat runs of nonsustained ventricular tachycardia yesterday. She denies any dizziness. She was able to sleep comfortably last night with slight elevation of the head. PHYSICAL EXAMINATION: VITAL SIGNS: Blood pressure 141/75, heart rate 115, temperature 98.1, and respirations 20. HEENT: Pale conjunctivae. CHEST: Bibasilar rales. HEART: S1 and S2, regular. ABDOMEN: Soft. EXTREMITIES: 1+ pitting edema. LABORATORY DATA: Today's hemoglobin and hematocrit 9 and 28.8, white count 11.6, platelet count 233,000. Today's SMA-7; sodium 130, potassium 5, chloride 106, CO2 of 15, glucose 183, BUN 47, and creatinine 1.9. ASSESSMENT: 1. Cardiomyopathy, status post implantable cardioverter-defibrillator placement. 2. Nonsustained ventricular tachycardia. 3. Coronary artery disease status post coronary artery bypass surgery. 4. Staphylococcus epidermidis positive blood culture which could be contamination. 5. Severe pulmonary hypertension. RECOMMENDATIONS: Continue on current IV Azactam at 1 g every 12 hours; continue IV daptomycin 400 mg every 48 hours; continue digoxin 0.125 mg Sunday, Sunday, and Sunday; continue Dobutrex infusion and IV heparin infusion; continue magnesium oxide 400 mg once a day; Lipitor 40 mg once a day; Imdur 120 mg once a day; Toprol XL 100 mg once a day. I would request electrophysiology consult from the patient's original knife finisher, Dr. Luciano Renee. Luís Weston MD
[2018-12-09] MEDS: DOBUTamine 500mg/250ml D5W 500 MG/250 ML BAG IV SCH (18:17)
--- NOTE | 2018-12-09 18:43 | US ---
PROCEDURE: Left upper extremity venous ultrasound HISTORY: Arm pain and swelling. Evaluate for deep venous thrombosis. PHYSICIAN(S): Vinnie Sarmiento MD. FINDINGS: The left internal jugular vein is sonographically normal and compressible. There is adherent hypoechoic occlusive thrombus in the left subclavian vein. There is superficial thrombophlebitis noted in the left basilic vein above the elbow IMPRESSION: 1. Adherent partially occlusive thrombus in the left subclavian vein 2. Superficial thrombophlebitis in the left basilic vein
[2018-12-10 02:55] LABS: INR 1.42; PROTHROMBIN TIME 15.8 SECONDS (9.4-12.5)
[2018-12-10] MEDS: HYDROmorphone 0.5 mg/0.5 ml ISec IVP PRN ×3 (03:44→17:24)
[2018-12-10 06:43] LABS: BASO # 0.02 K/mm3 (0.0-2.0); BASO % 0.2 % (0.0-3.0); EOS # 0.3 (0.0-0.7); EOS % 1.9 % (1.5-5.0); HEMOGLOBIN 8.5 g/dL (12.0-16.0); LYMPH # 0.9 (1.2-3.4); LYMPH % 6.5 % (22.0-35.0); MEAN CELL VOLUME 94.1 fl (80.0-105.0); MEAN CORPUSCULAR HEMOGLOBIN 29.3 pg (25.0-35.0); MEAN CORPUSCULAR HGB CONC 31.1 g/dl (31.0-37.0); MEAN PLATELET VOLUME 9.1 fl (7.0-11.0); MONO # 0.7 (0.1-0.6); MONO % 5.6 % (1.0-6.0); RBC 2.9 10^6/uL (3.5-6.1); RED CELL DISTRIBUTION WIDTH 17.7 % (11.5-14.5); WHITE BLOOD COUNT 13.2 10^3/uL (4.5-11.0)
[2018-12-10 06:44] LABS: INR 1.4; PARTIAL THROMBOPLASTIN TIME 59.3 Seconds (26.9-38.3); PROTHROMBIN TIME 15.8 SECONDS (9.4-12.5)
[2018-12-10 06:58] LABS: ALB/GLOB RATIO 0.8 (1.1-1.8); ALBUMIN 2.5 g/dL (3.0-4.8)
--- NOTE | 2018-12-10 08:03 | CON ---
DATE: 12/09/2018 ELECTROPHYSIOLOGY CONSULTATION TYPE OF CONSULTATION: Electrophysiology. Thank you very much for this consult. REASON FOR EVALUATION: 1. Ventricular tachycardia. 2. Status post dual chamber [employer] AICD. 3. Systolic heart failure. 4. Coronary artery disease, atherosclerotic heart disease. 5. Small bowel obstruction. HISTORY OF PRESENT ILLNESS: The patient is a very pleasant 73-year-old female with past medical history significant for coronary artery disease, status post coronary artery bypass graft surgery, diabetes, systolic heart failure, ischemic cardiomyopathy, dual chamber AICD placement, neuropathy, severe peripheral vascular disease, hyperlipidemia, history of bowel obstruction, status post ileostomy, chronic arthritis who presents to the emergency department here at [facility] on 12/04[facility]2018 with abdominal discomfort with suspicion of small bowel obstruction. The patient has a history of ileostomy. The patient has been in and out of the hospital for various issues over the last 8 to 9 months. The patient does have a [employer] dual chamber AICD, which I had been following fairly regularly. In addition, the patient was initiated on IV inotropic therapy in the form of dobutamine and is cared for by Dr. Vinnie Reynoso. I have been asked to see her in regards to evaluation of her device. The patient was seen and examined. Family is at the bedside. Denies any history of palpitation, dizziness, syncope, or device discharge. PAST MEDICAL HISTORY: As mentioned in the history of present illness. Ischemic cardiomyopathy, history of CABG, end-stage dilated cardiomyopathy, on home ionotropic therapy. PAST SURGICAL HISTORY: Significant for AICD implantation on 08/21/2014, amputation of her first and second digit, amputation on her left foot, Port-A-Cath placement and subsequent removal, currently the patient has a PICC line in her right upper extremity, history of ischemic colitis, cataracts, laser surgery. ALLERGIES: AMOXICILLIN, , DOXYCYCLINE. FAMILY HISTORY: Significant for malignancy in both her mother and father, brother also has leukemia. SOCIAL HISTORY: The patient has a remote history of smoking, quitting some 18 years ago. Denies any ETOH or drug abuse. REVIEW OF SYSTEMS: Devoid of chills, fatigue, fever, chest pain, palpitations, lower extremity edema, cough, wheezes, sputum production, abdominal pain, change in stool color from urostomy bag. Does have the aforementioned abdominal pain, which has improved. No urinary complaints. PHYSICAL EXAMINATION: GENERAL: On exam, the patient appears to be nontoxic. No acute distress. Appears chronically ill and has lost considerable weight since I last seen her with wasting of her fascial muscles. VITAL SIGNS: Currently, temperature is 98.1. The patient appears to be in sinus rhythm, sinus tach 90s to 110s. Blood pressure is 140/75. Mean arterial pressure is 97. Respiratory rate of 20. The patient is sating 94%. HEENT: Examination of her head is atraumatic, normocephalic. Extraocular movements appeared to be intact. Pupils equal, round, and reactive to light and accommodation. Mucous membranes do appear moist. NECK: Supple. CHEST: Clear to auscultation bilaterally. Equal breath sounds are heard. No bibasilar rales are appreciated at this time. ABDOMEN: Soft. Colostomy bag is noted in the right lower quadrant. Currently empty. EXTREMITIES: No cyanosis or clubbing. The patient does have some degree of pallor. LABORATORY DATA: The patient has a white count of 11.6, hemoglobin and hematocrit of 9 and 28.8, platelets of 233. INR is 1.54, PT 17.1, PTT is 56.3. Potassium is 5, sodium 130. BUN and creatinine of 47 and 1.9, calcium is low at 8. ALT and AST are 16 and 8 respectively. Albumin is 2.6, globulin is 3.3, TSH is 1.24. Review of echocardiogram which is done on 12/06/2018 shows left ventricle is moderately dilated. There is normal left ventricular wall thickness. Systolic function is severely impaired. Global hypokinesis is noted. Right ventricle is moderately dilated. Severely hypokinetic. Left atrium is moderately dilated. Right atrium is moderately dilated. Aortic valve is moderately thickened. No aortic regurgitation. Mitral valve is moderately thickened. Mitral regurgitation is moderate to severe. Tricuspid valve is notable for severe tricuspid regurgitation, severe pulmonary hypertension. No growth vegetations are seen on cardiac structures. On review of interrogation, the patient has a [employer] Evera XT device, serial #[id number] device, has approximately 6.8 years remaining. Catheter thresholds on the atrium of 0.75 volts, 0.4 milliseconds. RV thresholds are chronically elevated, automated measures of measuring RV threshold had been turned off historically. There is a value of 5 volts at 0.4 milliseconds. The patient does not pace in the ventricle. R waves measured 6.5, Q waves are small at 0.3 millivolts. The patient is set AAI, DD, or managed ventricular pacing mode 60 to 130. In terms of arrhythmia history, there are four episodes of what appeared to be nonsustained ventricular tachycardia. No clear evidence of atrial fibrillation is noted. On review of episodes of non-sustained ventricular tachycardia, findings are consistent with mostly ventricular tachycardia with intermittent VA conduction, cannot completely rule out the presence of supraventricular tachycardia given the degree of systolic dysfunction, VT is likely the most common. In addition, in terms of her volume status, there appeared to be increasing and had been chronically elevated for sometime and again it is increasing at this point. ASSESSMENT AND PLAN: 1. Ventricular tachycardia, which at this point appears to be nonsustained. We would continue her current medications, which currently include metoprolol succinate 100 mg p.o. daily. At this point if the patient has sustained episodes, we may consider amiodarone therapy, but at this point, the patient should be maintained on metoprolol that is Toprol XL 100 mg daily. 2. Status post [employer] dual chamber automatic implantable cardioverter-defibrillator with what appears to be baseline function. [employer] will make arrangements for device interrogation in the upcoming days in regards to finding out a true right ventricular threshold, again the automated right ventricular threshold checking outward and has been turned off. 3. Systolic heart failure. The patient's volume status is increasing, would consider keeping patient even at this point or perhaps gently diuresing her. 4. Coronary artery disease, atherosclerotic heart disease, management as per Dr. Weston/Dr. Reynoso. 5. Small bowel obstruction, which is currently being managed on this admission. 6. Moderate to severe mitral regurgitation, which further complicates her heart failure status. 7. Pulmonary hypertension, likely secondary to severe systolic heart failure. Thank you for allowing me to participate in the care of your patient. Please do not hesitate to call if you have any questions in regards to her care. Greater than 90 minutes were spent in reviewing medical record, interviewing patient, interrogating her device, and coordinating her care. Luciano Renee MD cc: MD Vinnie Bellamy MD Mohammad Irfan, MD
[2018-12-10] MEDS: Insulin Reg-LOW-Coverage SC SCH ×4 (09:29→21:19)
[2018-12-10] MEDS: Magnesium Oxide 400 mg Tab UD PO SCH ×2 (09:31→17:16)
[2018-12-10] MEDS: Metoprolol Succinate 100 mg XL Tab PO SCH (09:31)
[2018-12-10] MEDS: Aztreonam 1 Gm in NS 100mL 100 ML IVPB SCH ×2 (09:32→21:06)
[2018-12-10] MEDS: Mupirocin 2% Ointment 15 GM TUBE TOP SCH ×2 (09:32→18:24)
[2018-12-10] MEDS ORDERED: Magnesium Sulfate 1 gm in D5W 1 GM/100 ML BAG IVPB ONE (10:16)
--- NOTE | 2018-12-10 12:48 | PN ---
DATE: 12/10/2018 CARDIOLOGY FOLLOWUP HISTORY: The patient with an episode of ventricular tachycardia. PHYSICAL EXAMINATION VITAL SIGNS: Blood pressure is 126/84, heart rate is 107. NECK: Negative JVD. LUNGS: Decreased breath sounds bilaterally. HEART: Reveals S1, S2. EXTREMITIES: Without change. LABORATORY DATA: Hemoglobin is 8.5. Chemistries, BUN and creatinine are 48 and 1.9, the magnesium was 1.8 several days ago with a potassium of 4.6 today. IMPRESSION 1. Ventricular tachycardia. 2. End-stage dilated cardiomyopathy. 3. Renal insufficiency. 4. Diabetes mellitus. PLAN: Given these findings, Dr. Callahan's note is appreciated. However, we will stop her IV dobutamine at this time which may be a contributing factor to have ventricular tachycardia. The patient already has an ICD. We will check her magnesium and consider replacement. Vinnie Vidales MD
--- NOTE | 2018-12-10 12:50 | CP.PCM.PCO ---
Physician Communication Note - Physician Communication Note Physician Communication Note: thrombus/hep drip, coumadin subtherapuetic INR, antibiotics dapto, azactam
--- NOTE | 2018-12-10 13:36 | CP.PCM.PN ---
<Martin Ochoa - Last Filed: 12/10/18 13:33> Subjective - Date & Time of Evaluation Date of Evaluation: 12/10/18 Time of Evaluation: 13:34 - Subjective Subjective: Martin Ochoa, PGY-1, Internal Medicine Progress Note for Dr. Gusman Patient was seen and evaluated at bedside. Patient had no acute overnight events. Patient continues to report left shoulder pain and right hip pain. Patient denies headache, fever, chest pain, heart palpitations, shortness of breath, nausea, vomiting, constipation, diarrhea, dysuria, hematuria. 12-point ROS was unremarkable except for what was mentioned above. Objective - Vital Signs/Intake and Output Vital Signs (last 24 hours): Temp Pulse Resp BP Pulse Ox 98 F 107 H 20 126/84 98 12/10/18 08:10 12/10/18 08:10 12/10/18 08:10 12/10/18 08:10 12/10/18 08:10 Intake and Output: 12/10/18 12/10/18 06:59 18:59 Intake Total 800 Output Total 600 Balance 200 - Medications Medications: Current Medications Acetaminophen (Tylenol 325mg Tab) 650 mg PO Q6H PRN PRN Reason: Pain, moderate (4-7) Last Admin: 12/09/18 15:04 Dose: 650 mg Artificial Tears (Refresh Opth Soln) 0.3 ml OU DAILY PRN PRN Reason: Dry eyes Last Admin: 12/09/18 15:45 Dose: 1 drop Atorvastatin Calcium (Lipitor) 40 mg PO DAILY [facility] Last Admin: 12/10/18 09:31 Dose: 40 mg Bumetanide (Bumex) 2 mg PO BID [facility] Last Admin: 12/10/18 09:30 Dose: 2 mg Calcitriol (Rocaltrol) 0.25 mcg PO F [facility] Last Admin: 12/09/18 09:20 Dose: 0.25 mcg Calcium Carbonate (Oscal) 500 mg PO DAILY [facility] Last Admin: 12/10/18 09:31 Dose: 500 mg Dextrose (Dextrose 50% Inj) 0 ml IV STAT PRN; Protocol PRN Reason: Hypoglycemia Protocol Digoxin (Digoxin) 0.125 mg PO F [facility] Last Admin: 12/09/18 09:20 Dose: 0.125 mg Hydromorphone HCl (Dilaudid) 0.5 mg IVP Q8H PRN PRN Reason: Pain, severe (8-10) Last Admin: 12/10/18 10:35 Dose: 0.5 mg Dextrose (Dextrose 5% In Water 1000 Ml) 1,000 mls @ 0 mls/hr IV .Q0M PRN; Protocol PRN Reason: Hypoglycemia Protocol Aztreonam (Azactam 1 Gm) 100 mls @ 100 mls/hr IVPB Q12 [facility]; Protocol Stop: 12/15/18 22:01 Last Admin: 12/10/18 09:32 Dose: 100 mls/hr Daptomycin 400 mg/ Sodium (Chloride) 100 mls @ 200 mls/hr IV Q48H [facility] Stop: 12/14/18 06:01 Last Admin: 12/09/18 08:00 Dose: Not Given Heparin Sodium/Sodium Chloride (Heparin 91449 Units/250ml 1/2 Normal Saline) 25,000 units in 250 mls @ 11.953 mls/hr IV .[id number] PRN; Protocol PRN Reason: ADJUST RATE PER PROTOCOL Last Admin: 12/09/18 17:06 Dose: 19.42 units/kg/hr, 12.9 mls/hr Insulin Human Regular (Humulin R Low) 0 units SC ACHS [facility]; Protocol Last Admin: 12/10/18 12:45 Dose: 2 unit Isosorbide Mononitrate (Imdur) 120 mg PO DAILY [facility] Last Admin: 12/10/18 09:31 Dose: 120 mg Magnesium Oxide (Mag-Ox) 400 mg PO BID [facility] Last Admin: 12/10/18 09:31 Dose: 400 mg Metoprolol Succinate (Toprol Xl) 100 mg PO DAILY [facility] Last Admin: 12/10/18 09:31 Dose: 100 mg Mupirocin (Bactroban Ointment) 10 gm TOP BID [facility] Last Admin: 12/10/18 09:32 Dose: Not Given Ondansetron HCl (Zofran Inj) 4 mg IVP Q4 PRN PRN Reason: Nausea/Vomiting Pantoprazole Sodium (Protonix Inj) 40 mg IVP Q12 [facility] Last Admin: 12/10/18 09:31 Dose: 40 mg Primidone (Mysoline) 50 mg PO HS [facility] Last Admin: 12/09/18 21:42 Dose: 50 mg Tamsulosin HCl (Flomax) 0.4 mg PO HS [facility] Last Admin: 12/09/18 21:42 Dose: 0.4 mg Warfarin Sodium (Coumadin) 5 mg PO 1800 [facility]; Protocol Last Admin: 12/09/18 17:05 Dose: 5 mg - Labs Labs: 12/10/18 06:30 12/10/18 06:30 PT 15.8 SECONDS (9.4-12.5) H 12/10/18 06:30 INR 1.40 12/10/18 06:30 APTT 59.3 Seconds (26.9-38.3) H 12/10/18 06:30 - Constitutional Appears: Well, Non-toxic, No Acute Distress - Head Exam Head Exam: ATRAUMATIC, NORMAL INSPECTION, NORMOCEPHALIC - Eye Exam Eye Exam: EOMI Pupil Exam: PERRL - ENT Exam ENT Exam: Mucous Membranes Moist - Neck Exam Neck Exam: Full ROM - Respiratory Exam Respiratory Exam: Clear to Ausculation Bilateral, NORMAL BREATHING PATTERN - Cardiovascular Exam Cardiovascular Exam: REGULAR RHYTHM, RRR - GI/Abdominal Exam GI & Abdominal Exam: Soft, Normal Bowel Sounds. absent: Tenderness - Extremities Exam Extremities Exam: Full ROM Additional comments: negative Bryant's sign - Neurological Exam Neurological Exam: Alert, Awake, CN II-XII Intact, Oriented x3 - Psychiatric Exam Psychiatric exam: Normal Affect, Normal Mood - Skin Skin Exam: Dry, Intact, Normal Color Assessment and Plan - Assessment and Plan (Free Text) Assessment: 73 year old with past medical history of CAD s/p CABG, DM II, systolic CHF s/p AICD placement, dilated cardiomyopathy on home dobutamine, neuropathy, PVD, HLD, ileostomy for ischemic colitis, chronic hip and knee pain, CKD stage 4, chronic sacral ulcer presented with partial SBO which has now resolved. Patient also was found to have gram + bacteremia on 12/06 and PICC line was removed. Repeat blood cultures were negative. Patient was found to have UTI treated with levaquin. FOBT was found to be positive and is status post 1 U of PRBCs. Patient was recently found to have left subclavian vein thrombus and started on heparin drip. Patient has had episodes of nonsustained ventricular tachycardia with most recent episode of 6 beats and patient was asymptomatic at the time. Plan: Nonsustained Ventricular Tachycardia -6 beats of Ventricular tachycardia -As per Dr. Renee, EP, continue with metoprolol succinate 100 mg daily -Will consider amiodarone if patient has sustained episodes -AICD to be evaluated in the next few days by [employer] Gram positive bacteremia -Blood culture 12/05: Staphylococcus epidermitis -Repeat blood culture on 12/06 was negative for 3 days hours and on 12/08 was negative for 48 hours -Likely source is PICC line -PICC line was removed. New PICC line was inserted on 12/09 -Continue with daptomycin and aztreonam day 3 post PICC removal. Treatment duration is 5-7 days post PICC removal Urinary tract infection -Urine culture: Klebsiella pneumoniae -UA: more than 200 protein, trace intact blood, moderate leukocyte esterase, tntc wbc, many bacteria -Continue with daptomycin and aztreonam day 3 post PICC removal. Left subclavian vein thrombosis -Visualized on upper extremity ultrasound -Heparin and warfarin were stopped and eliquis 5 mg BID was started as per Dr. Hyde. CKD stage IV -BUN/CR: 48/1.9 from creatinine of 1.9 yesterday. -Baseline creatinine is 1.7-2.0 -Hyponatremia at 130 from 130 -Bicarbonate value increased to 18 from 16. -Aranesp dose given -Avoid nephrotoxins such as lisinopril, losartan, IV contrast Partial SBO-resolved -patient tolerating heart healthy diet -patient has adequate stool output -Continue with zofran PRN for nausea and protonix 40 Q12 Normocytic Anemia -Status post 1 U of PRBCs -FOBT was positive -Hemoglobin has been stable at 8.5 -Goal hemoglobin should be more than 8 due to myriad of cardiac problems Dilated cardiomyopathy with EF 46.6% -Continue with dobutamine drip as per Cardiology. -Continue with aspirin, lipitor, metoprolol, digoxin, isosorbide nitrate, and bumex as per cardiology CAD s/p CABG -Continue with home aspirin, lipitor, metoprolol, isosorbide nitrate Essential tremor -Continue with home primidone Diabetes mellitus type II -Random glucose: 171 -Continue with low SSI -Maintain euglycemia. GI prophylaxis: protonix 40 mg Q12 DVT prophylaxis: eliquis Disposition: PT initially recommended [facility]. PT was reconsulted for further e valuation. Patient plan discussed with attending. <Hermila Gusman - Last Filed: 12/10/18 16:08> Objective - Vital Signs/Intake and Output Vital Signs (last 24 hours): Temp Pulse Resp BP Pulse Ox 98 F 107 H 20 126/84 98 12/10/18 08:10 12/10/18 08:10 12/10/18 08:10 12/10/18 08:10 12/10/18 08:10 Intake and Output: 12/10/18 12/10/18 06:59 18:59 Intake Total 800 Output Total 600 Balance 200 - Medications Medications: Current Medications Acetaminophen (Tylenol 325mg Tab) 650 mg PO Q6H PRN PRN Reason: Pain, moderate (4-7) Last Admin: 12/09/18 15:04 Dose: 650 mg Apixaban (Eliquis) 5 mg PO BID [facility]; Protocol Artificial Tears (Refresh Opth Soln) 0.3 ml OU DAILY PRN PRN Reason: Dry eyes Last Admin: 12/09/18 15:45 Dose: 1 drop Atorvastatin Calcium (Lipitor) 40 mg PO DAILY [facility] Last Admin: 12/10/18 09:31 Dose: 40 mg Bumetanide (Bumex) 2 mg PO BID [facility] Last Admin: 12/10/18 09:30 Dose: 2 mg Calcitriol (Rocaltrol) 0.25 mcg PO [facility] Last Admin: 12/09/18 09:20 Dose: 0.25 mcg Calcium Carbonate (Oscal) 500 mg PO DAILY [facility] Last Admin: 12/10/18 09:31 Dose: 500 mg Dextrose (Dextrose 50% Inj) 0 ml IV STAT PRN; Protocol PRN Reason: Hypoglycemia Protocol Digoxin (Digoxin) 0.125 mg PO [facility] Last Admin: 12/09/18 09:20 Dose: 0.125 mg Hydromorphone HCl (Dilaudid) 0.5 mg IVP Q8H PRN PRN Reason: Pain, severe (8-10) Last Admin: 12/10/18 10:35 Dose: 0.5 mg Dextrose (Dextrose 5% In Water 1000 Ml) 1,000 mls @ 0 mls/hr IV .Q0M PRN; Protocol PRN Reason: Hypoglycemia Protocol Aztreonam (Azactam 1 Gm) 100 mls @ 100 mls/hr IVPB Q12 [facility]; Protocol Stop: 02/17/19 22:01 Last Admin: 12/10/18 09:32 Dose: 100 mls/hr Daptomycin 400 mg/ Sodium (Chloride) 100 mls @ 200 mls/hr IV Q48H [facility] Stop: 12/14/18 06:01 Last Admin: 12/09/18 08:00 Dose: Not Given Insulin Human Regular (Humulin R Low) 0 units SC ACHS [facility]; Protocol Last Admin: 12/10/18 12:45 Dose: 2 unit Isosorbide Mononitrate (Imdur) 120 mg PO DAILY [facility] Last Admin: 12/10/18 09:31 Dose: 120 mg Magnesium Oxide (Mag-Ox) 400 mg PO BID [facility] Last Admin: 12/10/18 09:31 Dose: 400 mg Metoprolol Succinate (Toprol Xl) 100 mg PO DAILY [facility] Last Admin: 12/10/18 09:31 Dose: 100 mg Mupirocin (Bactroban Ointment) 10 gm TOP BID [facility] Last Admin: 12/10/18 09:32 Dose: Not Given Ondansetron HCl (Zofran Inj) 4 mg IVP Q4 PRN PRN Reason: Nausea/Vomiting Pantoprazole Sodium (Protonix Inj) 40 mg IVP Q12 [facility] Last Admin: 12/10/18 09:31 Dose: 40 mg Primidone (Mysoline) 50 mg PO [facility] Last Admin: 12/09/18 21:42 Dose: 50 mg Tamsulosin HCl (Flomax) 0.4 mg PO HS [facility] Last Admin: 12/09/18 21:42 Dose: 0.4 mg - Labs Labs: 12/10/18 06:30 12/10/18 06:30 PT 15.8 SECONDS (9.4-12.5) H 12/10/18 06:30 INR 1.40 12/10/18 06:30 APTT 59.3 Seconds (26.9-38.3) H 12/10/18 06:30 Attending/Attestation - Attestation I have personally seen and examined this patient.: Yes I have fully participated in the care of the patient.: Yes I have reviewed all pertinent clinical information, including history, physical exam and plan: Yes Notes (Text): 12/10/18 16:07 73 year old female with past medical history of CAD s/p CABG, systolic CHF s/p AICD, dilated cardiomyopathy on home dobutamine, history of ischemic colitis s/p ileostomy, and CKD who presented initally with abdominal pain found to have partial SBO, now resolved. GI/Surgery are following; recommended conservative management. She was also found to have staph epidermidis bacteremia for which she is on antibiotics. Repeat cultures are negative. Picc line was removed and replaced. ID is following. Continue with antibiotics for klebsiella UTI. She is on anticoagulation for left subclavian vein thrombus. Hematology is following. She had episode of NSVT for which cardiology and EPS are following. Dobutamine drip was discontinued. Will need AICD interrogation. PT follow up requested for d/c planning. Hermila Gusman MD Hospitalist.
--- NOTE | 2018-12-10 16:48 | CP.PCM.PN ---
Subjective - Date & Time of Evaluation Date of Evaluation: 12/10/18 Time of Evaluation: 09:55 - Subjective Subjective: Afebrile, comfortable, no pain at the new PICC line site on the right arm. Objective - Vital Signs/Intake and Output Vital Signs (last 24 hours): Temp Pulse Resp BP Pulse Ox 98.1 F 115 H 20 141/75 94 L 12/09/18 08:00 12/09/18 10:00 12/09/18 08:00 12/09/18 08:00 12/09/18 08:00 Intake and Output: 12/09/18 12/09/18 06:59 18:59 Intake Total 120 250 Output Total 1000 Balance -880 250 - Medications Medications: Current Medications Acetaminophen (Tylenol 325mg Tab) 650 mg PO Q6H PRN PRN Reason: Pain, moderate (4-7) Last Admin: 12/09/18 09:18 Dose: 650 mg Artificial Tears (Refresh Opth Soln) 0.3 ml OU DAILY PRN PRN Reason: Dry eyes Atorvastatin Calcium (Lipitor) 40 mg PO DAILY [facility] Last Admin: 12/09/18 09:20 Dose: 40 mg Bumetanide (Bumex) 2 mg PO BID [facility] Last Admin: 12/09/18 09:20 Dose: 2 mg Calcitriol (Rocaltrol) 0.25 mcg PO [facility] Last Admin: 12/09/18 09:20 Dose: 0.25 mcg Calcium Carbonate (Oscal) 500 mg PO DAILY [facility] Last Admin: 12/09/18 09:20 Dose: 500 mg Dextrose (Dextrose 50% Inj) 0 ml IV STAT PRN; Protocol PRN Reason: Hypoglycemia Protocol Digoxin (Digoxin) 0.125 mg PO [facility] Last Admin: 12/09/18 09:20 Dose: 0.125 mg Hydromorphone HCl (Dilaudid) 0.5 mg IVP Q8H PRN PRN Reason: Pain, severe (8-10) Last Admin: 12/08/18 22:25 Dose: 0.5 mg Dextrose (Dextrose 5% In Water 1000 Ml) 1,000 mls @ 0 mls/hr IV .Q0M PRN; Pro tocol PRN Reason: Hypoglycemia Protocol Aztreonam (Azactam 1 Gm) 100 mls @ 100 mls/hr IVPB Q12 [facility]; Protocol Stop: 12/15/18 22:01 Last Admin: 12/09/18 09:19 Dose: 100 mls/hr Heparin Sodium/Sodium Chloride (Heparin 02896 Units/250ml 1/2 Normal Saline) 25,000 units in 250 mls @ 11.953 mls/hr IV .[id number] PRN; Protocol PRN Reason: ADJUST RATE PER PROTOCOL Last Admin: 12/09/18 11:20 Dose: 19.42 units/kg/hr, 12.9 mls/hr Dobutamine HCl/Dextrose (Dobutamine/Dextrose 5% 500mg/250ml) 500 mg in 250 mls @ 9.961 mls/hr IV .Q24H [facility] Last Admin: 12/08/18 18:50 Dose: 9.961 mls/hr Daptomycin 400 mg/ Sodium (Chloride) 100 mls @ 200 mls/hr IV Q48H [facility] Stop: 12/14/18 06:01 Last Admin: 12/09/18 08:00 Dose: Not Given Insulin Human Regular (Humulin R Low) 0 units SC ACHS [facility]; Protocol Last Admin: 12/09/18 09:21 Dose: 1 unit Isosorbide Mononitrate (Imdur) 120 mg PO DAILY [facility] Last Admin: 12/09/18 09:20 Dose: 120 mg Magnesium Oxide (Mag-Ox) 400 mg PO BID [facility] Last Admin: 12/09/18 09:21 Dose: 400 mg Metoprolol Succinate (Toprol Xl) 100 mg PO DAILY [facility] Last Admin: 12/09/18 09:20 Dose: 100 mg Mupirocin (Bactroban Ointment) 10 gm TOP BID [facility] Last Admin: 12/09/18 09:23 Dose: 1 applic Ondansetron HCl (Zofran Inj) 4 mg IVP Q4 PRN PRN Reason: Nausea/Vomiting Pantoprazole Sodium (Protonix Inj) 40 mg IVP Q12 [facility] Last Admin: 12/09/18 09:21 Dose: 40 mg Primidone (Mysoline) 50 mg PO HS [facility] Last Admin: 12/08/18 22:24 Dose: 50 mg Tamsulosin HCl (Flomax) 0.4 mg PO HS [facility] Last Admin: 12/08/18 22:24 Dose: 0.4 mg - Labs Labs: 12/09/18 06:15 02/11/19 08:00 PT 17.1 SECONDS (9.4-12.5) H 12/09/18 01:33 INR 1.54 12/09/18 01:33 APTT 45.8 Seconds (26.9-38.3) H 12/09/18 08:00 - Constitutional Appears: No Acute Distress, Chronically Ill - Head Exam Head Exam: NORMAL INSPECTION - Neck Exam Neck Exam: absent: Meningismus - Respiratory Exam Respiratory Exam: Decreased Breath Sounds - Cardiovascular Exam Cardiovascular Exam: +S1, +S2 - GI/Abdominal Exam GI & Abdominal Exam: Soft. absent: Tenderness Additional comments: colostomy site intact - Extremities Exam Additional comments: Right arm PICC line site clean and intact Assessment and Plan - Assessment and Plan (Free Text) Plan: Assessment Rik ochoaidis bacteremia, R/O related to PICC line S/P removal of PICC line 12/08/2018 R/O UTI with Klebsiella history of hematuria and urinary retention R/O UTI with E. faecalis, S/P treatment with antibiotics S/P left leg cellulitis as well as right sided community-acquired pneumonia S/P left foot 2nd digit skin and skin structure infection CAD S/P CABG abdominal aortic aneurysm S/P repair S/P cholecystectomy S/P pacemaker placement DM S/P left toe amputation Plan continue Daptomycin (Day 3 from time of PICC removal) and azactam; repeat blood cx are negative; now that it is removed, need 5-7 days of IV antibiotics will continue to monitor clinically
[2018-12-11 06:16] LABS: BASO # 0.02 K/mm3 (0.0-2.0); BASO % 0.1 % (0.0-3.0); EOS # 0.1 (0.0-0.7); EOS % 0.6 % (1.5-5.0); HEMOGLOBIN 8.7 g/dL (12.0-16.0); LYMPH # 0.8 (1.2-3.4); MEAN CELL VOLUME 95.2 fl (80.0-105.0); MEAN CORPUSCULAR HGB CONC 31.5 g/dl (31.0-37.0); MEAN PLATELET VOLUME 9.2 fl (7.0-11.0); MONO # 0.7 (0.1-0.6); RBC 2.9 10^6/uL (3.5-6.1)
[2018-12-11 06:27] LABS: INR 2.17; PARTIAL THROMBOPLASTIN TIME 39.6 Seconds (26.9-38.3); PROTHROMBIN TIME 24.5 SECONDS (9.4-12.5)
[2018-12-11 07:43] LABS: ALB/GLOB RATIO 0.8 (1.1-1.8); ALBUMIN 2.5 g/dL (3.0-4.8); CALCIUM 8.2 mg/dL (8.4-10.5)
[2018-12-11] MEDS: Insulin Reg-LOW-Coverage SC SCH ×4 (08:30→21:42)
[2018-12-11] MEDS ORDERED: Dextrose 50% SYRINGE Inj (50 ml) IVP ONE (08:44)
[2018-12-11] MEDS ORDERED: Insulin Regular 1 UNITS/0.01 ML ML SC ONE (08:46)
[2018-12-11] MEDS: HYDROmorphone 0.5 mg/0.5 ml ISec IVP PRN ×2 (08:50→19:02)
[2018-12-11] MEDS ORDERED: Calcium Gluconate in NS 1 GM/50 ML BAG IV ONE (09:00)
[2018-12-11] MEDS: Aztreonam 1 Gm in NS 100mL 100 ML IVPB SCH ×2 (09:46→21:41)
[2018-12-11] MEDS: Digoxin 125 mcg (0.125 mg) Tab PO SCH (09:48)
[2018-12-11] MEDS: Metoprolol Succinate 100 mg XL Tab PO SCH (09:49)
[2018-12-11] MEDS: Magnesium Oxide 400 mg Tab UD PO SCH ×2 (09:49→17:11)
[2018-12-11] MEDS: Mupirocin 2% Ointment 15 GM TUBE TOP SCH ×2 (09:50→17:11)
[2018-12-11] MEDS: Sodium Bicarbonate 8.4% 50 MEQ in Dextrose 5%/0.45% NS 1,000 ML IV SCH ×2 (10:48→21:10)
--- NOTE | 2018-12-11 11:53 | CP.PCM.PN ---
Subjective - Date & Time of Evaluation Date of Evaluation: 12/11/18 Time of Evaluation: 11:51 - Subjective Subjective: Podiatry consult note for Dr. Vinnie Cortés, 73 y/o female was seen and evaluated at bedside for a right heel wound. Patient' family is present at bedside. Patient denies any acute overnight events. Patient denies any nausea, vomiting, shortness of breath, chest pain or urinary complaints at this time. Objective - Vital Signs/Intake and Output Vital Signs (last 24 hours): Temp Pulse Resp BP Pulse Ox 98.2 F 88 21 135/78 99 12/11/18 06:00 12/11/18 09:49 12/11/18 06:00 12/11/18 09:49 12/11/18 06:00 Intake and Output: 12/11/18 12/11/18 06:59 18:59 Intake Total 0 Output Total 625 Balance -625 - Medications Medications: Current Medications Acetaminophen (Tylenol 325mg Tab) 650 mg PO Q6H PRN PRN Reason: Pain, moderate (4-7) Last Admin: 12/09/18 15:04 Dose: 650 mg Apixaban (Eliquis) 5 mg PO BID [facility]; Protocol Last Admin: 12/11/18 09:48 Dose: 5 mg Artificial Tears (Refresh Opth Soln) 0.3 ml OU DAILY PRN PRN Reason: Dry eyes Last Admin: 12/09/18 15:45 Dose: 1 drop Atorvastatin Calcium (Lipitor) 40 mg PO DAILY [facility] Last Admin: 12/11/18 09:46 Dose: 40 mg Bumetanide (Bumex) 2 mg PO BID [facility] Last Admin: 12/11/18 09:47 Dose: 2 mg Calcitriol (Rocaltrol) 0.25 mcg PO F [facility] Last Admin: 12/11/18 09:47 Dose: 0.25 mcg Calcium Carbonate (Oscal) 500 mg PO DAILY [facility] Last Admin: 12/11/18 09:48 Dose: 500 mg Dextrose (Dextrose 50% Inj) 0 ml IV STAT PRN; Protocol PRN Reason: Hypoglycemia Protocol Digoxin (Digoxin) 0.125 mg PO F [facility] Last Admin: 12/11/18 09:48 Dose: 0.125 mg Hydromorphone HCl (Dilaudid) 0.5 mg IVP Q8H PRN PRN Reason: Pain, severe (8-10) Last Admin: 12/11/18 08:50 Dose: 0.5 mg Dextrose (Dextrose 5% In Water 1000 Ml) 1,000 mls @ 0 mls/hr IV .Q0M PRN; Protocol PRN Reason: Hypoglycemia Protocol Aztreonam (Azactam 1 Gm) 100 mls @ 100 mls/hr IVPB Q12 [facility]; Protocol Stop: 12/15/18 22:01 Last Admin: 12/11/18 09:46 Dose: 100 mls/hr Daptomycin 400 mg/ Sodium (Chloride) 100 mls @ 200 mls/hr IV Q48H [facility] Stop: 12/16/18 10:01 Last Admin: 12/11/18 09:46 Dose: 200 mls/hr Sodium Bicarbonate 50 meq/ (Dextrose/Sodium Chloride) 1,050 mls @ 100 mls/hr IV .[id number] [facility] Last Admin: 12/11/18 10:48 Dose: 100 mls/hr Insulin Human Regular (Humulin R Low) 0 units SC ACHS [facility]; Protocol Last Admin: 12/11/18 08:30 Dose: 1 unit Isosorbide Mononitrate (Imdur) 120 mg PO DAILY [facility] Last Admin: 12/11/18 09:48 Dose: 120 mg Magnesium Oxide (Mag-Ox) 400 mg PO BID [facility] Last Admin: 12/11/18 09:49 Dose: 400 mg Metoprolol Succinate (Toprol Xl) 100 mg PO DAILY [facility] Last Admin: 12/11/18 09:49 Dose: 100 mg Mupirocin (Bactroban Ointment) 10 gm TOP BID [facility] Last Admin: 12/11/18 09:50 Dose: 1 applic Ondansetron HCl (Zofran Inj) 4 mg IVP Q4 PRN PRN Reason: Nausea/Vomiting Pantoprazole Sodium (Protonix Inj) 40 mg IVP Q12 [facility] Last Admin: 12/11/18 09:49 Dose: 40 mg Primidone (Mysoline) 50 mg PO HS [facility] Last Admin: 12/10/18 21:06 Dose: 50 mg Tamsulosin HCl (Flomax) 0.4 mg PO HS [facility] Last Admin: 12/10/18 21:06 Dose: 0.4 mg - Labs Labs: 12/11/18 05:30 12/11/18 05:30 PT 24.5 SECONDS (9.4-12.5) H 12/11/18 05:30 INR 2.17 12/11/18 05:30 APTT 39.6 Seconds (26.9-38.3) H 12/11/18 05:30 - Constitutional Appears: Well, Non-toxic, No Acute Distress - Head Exam Head Exam: ATRAUMATIC, NORMOCEPHALIC - Extremities Exam Additional comments: Bilateral Lower Extremity exam VASC: DP and PT 2/4 bilaterally, CFT less than 3 seconds to the remaining digits , no edema noted, TG within normal limits DERM: RIGHT- decubitus tissue injury noted to the right heel significantly improving, wound is superficial with no surrounding erythema at this time, no probe to bone, no malodor, no signs of infection, no drainage, no malodor LEFT- hyperkeratotic lesions noted to the left hallux amputation site, no open wounds, no probe to bone, no malodor, no signs of infection, no drainage, no malodor NEURO: grossly intact bilaterally ORTHO: pain on palpation to the wound site, minimal pain with range of motion, muscular strength 5/5 - Neurological Exam Neurological Exam: Alert, Awake, Oriented x3 - Psychiatric Exam Psychiatric exam: Normal Affect, Normal Mood Assessment and Plan - Assessment and Plan (Free Text) Assessment: 73 y/o female patient seen and evaluated at bedside for stable right heel wound Plan: Patient seen and evaluated Plan discussed with Dr. Cortés Chart, labs and vitals were reviewed- afebrile, positive leukocytosis WBC 11.6 likely secondary to UTI vs. bacteremia Patient wound stable at this time from Podiatric standpoint, non-infected Patient right heel wound cleansed with saline and dressed with Optifoam Lotion applied to bilateral feet and legs for xerosis Patient advised to use pillow to keep the right heel elevated at all time Patient and family demonstrated verbal understanding Podiatry will continue to follow the patient
--- NOTE | 2018-12-11 12:04 | CP.PCM.PN ---
Subjective - Date & Time of Evaluation Date of Evaluation: 12/11/18 Time of Evaluation: 11:00 - Subjective Subjective: Has some pain in legs, no evidence of bleeding on Eliquis. Objective - Vital Signs/Intake and Output Vital Signs (last 24 hours): Temp Pulse Resp BP Pulse Ox 98.2 F 88 21 135/78 99 12/11/18 06:00 12/11/18 09:49 12/11/18 06:00 12/11/18 09:49 12/11/18 06:00 Intake and Output: 12/11/18 12/11/18 06:59 18:59 Intake Total 0 Output Total 625 Balance -625 - Medications Medications: Current Medications Acetaminophen (Tylenol 325mg Tab) 650 mg PO Q6H PRN PRN Reason: Pain, moderate (4-7) Last Admin: 12/09/18 15:04 Dose: 650 mg Apixaban (Eliquis) 5 mg PO BID [facility]; Protocol Last Admin: 12/11/18 09:48 Dose: 5 mg Artificial Tears (Refresh Opth Soln) 0.3 ml OU DAILY PRN PRN Reason: Dry eyes Last Admin: 12/09/18 15:45 Dose: 1 drop Atorvastatin Calcium (Lipitor) 40 mg PO DAILY [facility] Last Admin: 12/11/18 09:46 Dose: 40 mg Bumetanide (Bumex) 2 mg PO BID [facility] Last Admin: 12/11/18 09:47 Dose: 2 mg Calcitriol (Rocaltrol) 0.25 mcg PO [facility] [place] Last Admin: 12/11/18 09:47 Dose: 0.25 mcg Calcium Carbonate (Oscal) 500 mg PO DAILY [facility] Last Admin: 12/11/18 09:48 Dose: 500 mg Dextrose (Dextrose 50% Inj) 0 ml IV STAT PRN; Protocol PRN Reason: Hypoglycemia Protocol Digoxin (Digoxin) 0.125 mg PO [facility] [place] Last Admin: 12/11/18 09:48 Dose: 0.125 mg Hydromorphone HCl (Dilaudid) 0.5 mg IVP Q8H PRN PRN Reason: Pain, severe (8-10) Last Admin: 12/11/18 08:50 Dose: 0.5 mg Dextrose (Dextrose 5% In Water 1000 Ml) 1,000 mls @ 0 mls/hr IV .Q0M PRN; Pro tocol PRN Reason: Hypoglycemia Protocol Aztreonam (Azactam 1 Gm) 100 mls @ 100 mls/hr IVPB Q12 [facility]; Protocol Stop: 12/15/18 22:01 Last Admin: 12/11/18 09:46 Dose: 100 mls/hr Daptomycin 400 mg/ Sodium (Chloride) 100 mls @ 200 mls/hr IV Q48H [facility] Stop: 12/16/18 10:01 Last Admin: 12/11/18 09:46 Dose: 200 mls/hr Sodium Bicarbonate 50 meq/ (Dextrose/Sodium Chloride) 1,050 mls @ 100 mls/hr IV .[id number] [facility] Last Admin: 12/11/18 10:48 Dose: 100 mls/hr Insulin Human Regular (Humulin R Low) 0 units SC ACHS [facility]; Protocol Last Admin: 12/11/18 08:30 Dose: 1 unit Isosorbide Mononitrate (Imdur) 120 mg PO DAILY [facility] Last Admin: 12/11/18 09:48 Dose: 120 mg Magnesium Oxide (Mag-Ox) 400 mg PO BID [facility] Last Admin: 12/11/18 09:49 Dose: 400 mg Metoprolol Succinate (Toprol Xl) 100 mg PO DAILY [facility] Last Admin: 12/11/18 09:49 Dose: 100 mg Mupirocin (Bactroban Ointment) 10 gm TOP BID [facility] Last Admin: 12/11/18 09:50 Dose: 1 applic Ondansetron HCl (Zofran Inj) 4 mg IVP Q4 PRN PRN Reason: Nausea/Vomiting Pantoprazole Sodium (Protonix Inj) 40 mg IVP Q12 [facility] Last Admin: 12/11/18 09:49 Dose: 40 mg Primidone (Mysoline) 50 mg PO HS [facility] Last Admin: 12/10/18 21:06 Dose: 50 mg Tamsulosin HCl (Flomax) 0.4 mg PO HS [facility] Last Admin: 12/10/18 21:06 Dose: 0.4 mg - Labs Labs: 12/11/18 05:30 12/11/18 05:30 PT 24.5 SECONDS (9.4-12.5) H 12/11/18 05:30 INR 2.17 12/11/18 05:30 APTT 39.6 Seconds (26.9-38.3) H 12/11/18 05:30 - Head Exam Head Exam: ATRAUMATIC - Eye Exam Eye Exam: Normal appearance - ENT Exam ENT Exam: Mucous Membranes Dry - Respiratory Exam Respiratory Exam: NORMAL BREATHING PATTERN - Cardiovascular Exam Cardiovascular Exam: +S1, +S2 - GI/Abdominal Exam GI & Abdominal Exam: Normal Bowel Sounds - Extremities Exam Extremities Exam: Pedal Edema Assessment and Plan (1) DVT (deep venous thrombosis) Assessment & Plan: suspect provoked from immobility on Eliquis 5mg BID - reduced renal function noted would continue with Eliquis for now as CrCl ~ 30; if worsens to < 25 chronically then agree with coumadin minimum duration of 3 months Status: Acute (2) Anemia Assessment & Plan: hypoproliferative erythroid response anemia of CKD - s/p Aranesp FOBT positive; monitor for acute drop in H/H while on anticoagulation no evidence of iron deficiency will check b12/folate stores Status: Acute (3) Coagulopathy Assessment & Plan: anticoagulation Status: Acute
[2018-12-11 12:45] LABS: TROPONIN I 0.08 ng/mL
--- NOTE | 2018-12-11 13:25 | CP.PCM.PN ---
Subjective - Date & Time of Evaluation Date of Evaluation: 12/11/18 Time of Evaluation: 10:45 - Subjective Subjective: Afebrile, comfortable, no pain at the PICC site, no abdominal pain. Objective - Vital Signs/Intake and Output Vital Signs (last 24 hours): Temp Pulse Resp BP Pulse Ox 98 F 86 20 126/84 98 12/10/18 08:10 12/10/18 14:00 12/10/18 08:10 12/10/18 08:10 12/10/18 08:10 Intake and Output: 12/10/18 12/10/18 06:59 18:59 Intake Total 800 Output Total 600 Balance 200 - Medications Medications: Current Medications Acetaminophen (Tylenol 325mg Tab) 650 mg PO Q6H PRN PRN Reason: Pain, moderate (4-7) Last Admin: 12/09/18 15:04 Dose: 650 mg Apixaban (Eliquis) 5 mg PO BID [facility]; Protocol Artificial Tears (Refresh Opth Soln) 0.3 ml OU DAILY PRN PRN Reason: Dry eyes Last Admin: 12/09/18 15:45 Dose: 1 drop Atorvastatin Calcium (Lipitor) 40 mg PO DAILY [facility] Last Admin: 12/10/18 09:31 Dose: 40 mg Bumetanide (Bumex) 2 mg PO BID [facility] Last Admin: 12/10/18 09:30 Dose: 2 mg Calcitriol (Rocaltrol) 0.25 mcg PO [facility] [place] Last Admin: 12/09/18 09:20 Dose: 0.25 mcg Calcium Carbonate (Oscal) 500 mg PO DAILY [facility] Last Admin: 12/10/18 09:31 Dose: 500 mg Dextrose (Dextrose 50% Inj) 0 ml IV STAT PRN; Protocol PRN Reason: Hypoglycemia Protocol Digoxin (Digoxin) 0.125 mg PO [facility] [place] Last Admin: 12/09/18 09:20 Dose: 0.125 mg Hydromorphone HCl (Dilaudid) 0.5 mg IVP Q8H PRN PRN Reason: Pain, severe (8-10) Last Admin: 12/10/18 10:35 Dose: 0.5 mg Dextrose (Dextrose 5% In Water 1000 Ml) 1,000 mls @ 0 mls/hr IV .Q0M PRN; Protocol PRN Reason: Hypoglycemia Protocol Aztreonam (Azactam 1 Gm) 100 mls @ 100 mls/hr IVPB Q12 [facility]; Protocol Stop: 12/15/18 22:01 Last Admin: 12/10/18 09:32 Dose: 100 mls/hr Daptomycin 400 mg/ Sodium (Chloride) 100 mls @ 200 mls/hr IV Q48H [facility] Stop: 12/14/18 06:01 Last Admin: 12/09/18 08:00 Dose: Not Given Insulin Human Regular (Humulin R Low) 0 units SC ACHS [facility]; Protocol Last Admin: 12/10/18 12:45 Dose: 2 unit Isosorbide Mononitrate (Imdur) 120 mg PO DAILY [facility] Last Admin: 12/10/18 09:31 Dose: 120 mg Magnesium Oxide (Mag-Ox) 400 mg PO BID [facility] Last Admin: 12/10/18 09:31 Dose: 400 mg Metoprolol Succinate (Toprol Xl) 100 mg PO DAILY [facility] Last Admin: 12/10/18 09:31 Dose: 100 mg Mupirocin (Bactroban Ointment) 10 gm TOP BID [facility] Last Admin: 12/10/18 09:32 Dose: Not Given Ondansetron HCl (Zofran Inj) 4 mg IVP Q4 PRN PRN Reason: Nausea/Vomiting Pantoprazole Sodium (Protonix Inj) 40 mg IVP Q12 [facility] Last Admin: 12/10/18 09:31 Dose: 40 mg Primidone (Mysoline) 50 mg PO [facility] Last Admin: 12/09/18 21:42 Dose: 50 mg Tamsulosin HCl (Flomax) 0.4 mg PO [facility] Last Admin: 12/09/18 21:42 Dose: 0.4 mg - Labs Labs: 12/10/18 06:30 12/10/18 06:30 PT 15.8 SECONDS (9.4-12.5) H 12/10/18 06:30 INR 1.40 12/10/18 06:30 APTT 59.3 Seconds (26.9-38.3) H 12/10/18 06:30 - Constitutional Appears: Non-toxic, Chronically Ill - Head Exam Head Exam: NORMAL INSPECTION - Respiratory Exam Respiratory Exam: Decreased Breath Sounds - Cardiovascular Exam Cardiovascular Exam: +S1, +S2 - GI/Abdominal Exam GI & Abdominal Exam: Soft. absent: Tenderness Assessment and Plan - Assessment and Plan (Free Text) Plan: Assessment Staph epidermidis bacteremia, R/O related to PICC line S/P removal of PICC line 12/08/2018 R/O UTI with Klebsiella history of hematuria and urinary retention R/O UTI with E. faecalis, S/P treatment with antibiotics S/P left leg cellulitis as well as right sided community-acquired pneumonia S/P left foot 2nd digit skin and skin structure infection CAD S/P CABG abdominal aortic aneurysm S/P repair S/P cholecystectomy S/P pacemaker placement DM S/P left toe amputation Plan continue Daptomycin (Day 4 from time of PICC removal) and azactam; repeat blood cx are negative; now that it is removed, need 5-7 days of IV antibiotics will continue to monitor clinically
--- NOTE | 2018-12-11 13:46 | CP.PCM.PCO ---
Physician Communication Note - Physician Communication Note Physician Communication Note: manual interrogation pend as per EP, repeat labs in am, cont. antibiotic
[2018-12-11 16:41] LABS: ALB/GLOB RATIO 0.8 (1.1-1.8); ALBUMIN 2.4 g/dL (3.0-4.8); CALCIUM 7.9 mg/dL (8.4-10.5)
[2018-12-11] MEDS: Lubricant Eye Drops UD OU PRN (17:12)
--- NOTE | 2018-12-11 17:37 | CP.PCM.PN ---
<Martin Ochoa - Last Filed: 12/11/18 17:34> Subjective - Date & Time of Evaluation Date of Evaluation: 12/11/18 Time of Evaluation: 17:48 - Subjective Subjective: Martin Ochoa, PGY-1, Internal Medicine Progress Note for Dr. Gusman Patient seen and evaluated at bedside. Patient denies any acute overnight events, but had 7 beats of Vtach this morning. Patient continues to report chronic left shoulder and right hip pain but denies headache, dizziness, chest pain, heart palpitations, shortness of breath, nausea, vomiting, constipation, diarrhea, dysuria, hematuria. 12-point ROS was unremarkable except for what was mentioned above. Objective - Vital Signs/Intake and Output Vital Signs (last 24 hours): Temp Pulse Resp BP Pulse Ox 98.2 F 80 20 132/75 97 12/11/18 16:00 12/11/18 16:00 12/11/18 16:00 12/11/18 16:00 12/11/18 16:00 Intake and Output: 12/11/18 12/11/18 06:59 18:59 Intake Total 0 Output Total 625 Balance -625 - Medications Medications: Current Medications Acetaminophen (Tylenol 325mg Tab) 650 mg PO Q6H PRN PRN Reason: Pain, moderate (4-7) Last Admin: 12/09/18 15:04 Dose: 650 mg Apixaban (Eliquis) 5 mg PO BID [facility]; Protocol Last Admin: 12/11/18 17:11 Dose: 5 mg Artificial Tears (Refresh Opth Soln) 0.3 ml OU DAILY PRN PRN Reason: Dry eyes Last Admin: 12/11/18 17:12 Dose: 1 drop Atorvastatin Calcium (Lipitor) 40 mg PO DAILY [facility] Last Admin: 12/11/18 09:46 Dose: 40 mg Bumetanide (Bumex) 2 mg PO BID [facility] Last Admin: 12/11/18 17:11 Dose: 2 mg Calcitriol (Rocaltrol) 0.25 mcg PO MWF [facility] Last Admin: 12/11/18 09:47 Dose: 0.25 mcg Calcium Carbonate (Oscal) 500 mg PO DAILY [facility] Last Admin: 12/11/18 09:48 Dose: 500 mg Dextrose (Dextrose 50% Inj) 0 ml IV STAT PRN; Protocol PRN Reason: Hypoglycemia Protocol Digoxin (Digoxin) 0.125 mg PO MWF [facility] Last Admin: 12/11/18 09:48 Dose: 0.125 mg Hydromorphone HCl (Dilaudid) 0.5 mg IVP Q8H PRN PRN Reason: Pain, severe (8-10) Last Admin: 12/11/18 08:50 Dose: 0.5 mg Dextrose (Dextrose 5% In Water 1000 Ml) 1,000 mls @ 0 mls/hr IV .Q0M PRN; Protocol PRN Reason: Hypoglycemia Protocol Aztreonam (Azactam 1 Gm) 100 mls @ 100 mls/hr IVPB Q12 [facility]; Protocol Stop: 12/15/18 22:01 Last Admin: 12/11/18 09:46 Dose: 100 mls/hr Daptomycin 400 mg/ Sodium (Chloride) 100 mls @ 200 mls/hr IV Q48H [facility] Stop: 12/16/18 10:01 Last Admin: 12/11/18 09:46 Dose: 200 mls/hr Sodium Bicarbonate 50 meq/ (Dextrose/Sodium Chloride) 1,050 mls @ 100 mls/hr IV .[id number] [facility] Last Admin: 12/11/18 10:48 Dose: 100 mls/hr Insulin Human Regular (Humulin R Low) 0 units SC [facility]; Protocol Last Admin: 12/11/18 16:14 Dose: 2 unit Isosorbide Mononitrate (Imdur) 120 mg PO DAILY [facility] Last Admin: 12/11/18 09:48 Dose: 120 mg Magnesium Oxide (Mag-Ox) 400 mg PO BID [facility] Last Admin: 12/11/18 17:11 Dose: 400 mg Metoprolol Succinate (Toprol Xl) 100 mg PO DAILY [facility] Last Admin: 12/11/18 09:49 Dose: 100 mg Mupirocin (Bactroban Ointment) 10 gm TOP BID [facility] Last Admin: 12/11/18 17:11 Dose: 1 applic Ondansetron HCl (Zofran Inj) 4 mg IVP Q4 PRN PRN Reason: Nausea/Vomiting Pantoprazole Sodium (Protonix Inj) 40 mg IVP Q12 [facility] Last Admin: 12/11/18 09:49 Dose: 40 mg Primidone (Mysoline) 50 mg PO HS [facility] Last Admin: 12/10/18 21:06 Dose: 50 mg Tamsulosin HCl (Flomax) 0.4 mg PO HS [facility] Last Admin: 12/10/18 21:06 Dose: 0.4 mg - Labs Labs: 12/11/18 05:30 12/11/18 16:13 PT 24.5 SECONDS (9.4-12.5) H 12/11/18 05:30 INR 2.17 12/11/18 05:30 APTT 39.6 Seconds (26.9-38.3) H 12/11/18 05:30 - Constitutional Appears: Well, Non-toxic, No Acute Distress - Head Exam Head Exam: ATRAUMATIC, NORMAL INSPECTION, NORMOCEPHALIC - Eye Exam Eye Exam: EOMI, PERRL - ENT Exam ENT Exam: Mucous Membranes Moist - Respiratory Exam Respiratory Exam: Clear to Ausculation Bilateral, NORMAL BREATHING PATTERN - Cardiovascular Exam Cardiovascular Exam: REGULAR RHYTHM, RRR - GI/Abdominal Exam GI & Abdominal Exam: Soft, Normal Bowel Sounds. absent: Tenderness - Extremities Exam Extremities Exam: Full ROM - Back Exam Back Exam: absent: CVA tenderness (L), CVA tenderness (R) - Neurological Exam Neurological Exam: Alert, Awake, CN II-XII Intact, Oriented x3 - Skin Skin Exam: Dry, Intact, Normal Color Assessment and Plan - Assessment and Plan (Free Text) Assessment: 73 year old with past medical history of CAD s/p CABG, DM II, systolic CHF s/p AICD placement, dilated cardiomyopathy on home dobutamine, neuropathy, PVD, HLD, ileostomy for ischemic colitis, chronic hip and knee pain, CKD stage 4, chronic sacral ulcer presented with partial SBO which has now resolved. Patient also was found to have gram + bacteremia on 12/06 and PICC line was removed. Repeat blood cultures were negative. Patient was found to have UTI treated with levaquin. FOBT was found to be positive and is status post 1 U of PRBCs. Patient was recently found to have left subclavian vein thrombus and started on heparin drip. Patient has had episodes of nonsustained ventricular tachycardia with most recent episode of 7 beats and patient was asymptomatic at the time. Plan: Nonsustained Ventricular Tachycardia -7 beats of Ventricular tachycardia today and was asymptomatic. -As per Dr. Renee EP, continue with metoprolol succinate 100 mg daily -Will consider amiodarone if patient has sustained episodes -AICD to be evaluated in the next few days by [employer] Hyperkalemia -K: 5.7 -Given kayexalate, insulin 10 U + D50, and calcium gluconate -Will recheck BMP Gram positive bacteremia -Blood culture 12/05: Staphylococcus epidermitis -Repeat blood culture on 12/06 was negative for 4 days and on 12/08 was negative for 3 days -Likely source is PICC line -PICC line was removed. New PICC line was inserted on 12/09 -Continue with daptomycin and aztreonam day 4 post PICC removal. Treatment duration is 5-7 days post PICC removal Urinary tract infection -Urine culture: Klebsiella pneumoniae -UA: more than 200 protein, trace intact blood, moderate leukocyte esterase, tntc wbc, many bacteria -Continue with daptomycin and aztreonam day 4 post PICC removal. Left subclavian vein thrombosis -Visualized on upper extremity ultrasound -Continue eliquis 5 mg BID was started as per Dr. Hyde. CKD stage IV -BUN/CR: 50/2 from creatinine of 1.9 yesterday. -Baseline creatinine is 1.7-2.0 -Hyponatremia at 130 from 130 -Bicarbonate value decreased to 16 from 18. -Aranesp dose given -Avoid nephrotoxins such as lisinopril, losartan, IV contrast Partial SBO-resolved -patient tolerating heart healthy diet -patient has adequate stool output -Continue with zofran PRN for nausea and protonix 40 Q12 Normocytic Anemia -Status post 1 U of PRBCs -FOBT was positive -Hemoglobin has been stable at 8.7 -Goal hemoglobin should be more than 8 due to myriad of cardiac problems Dilated cardiomyopathy with EF 46.6% -Stopped dobutamine drip as per cadiology. -Continue with aspirin, lipitor, metoprolol, digoxin, isosorbide nitrate, and b umex as per cardiology CAD s/p CABG -Continue with home aspirin, lipitor, metoprolol, isosorbide nitrate Essential tremor -Continue with home primidone Diabetes mellitus type II -Random glucose: 182 -Continue with low SSI -Maintain euglycemia. GI prophylaxis: protonix 40 mg Q12 DVT prophylaxis: eliquis Disposition: PT initially recommended [facility]. Patient's wants patient to have home PT however. Patient plan discussed with attending. <Naseem,Anwar A - Last Filed: 12/12/18 08:46> Objective - Vital Signs/Intake and Output Vital Signs (last 24 hours): Temp Pulse Resp BP Pulse Ox 97.9 F 80 20 140/65 97 12/12/18 07:53 12/12/18 07:53 12/12/18 07:53 12/12/18 07:53 12/12/18 07:53 Intake and Output: 12/12/18 12/12/18 06:59 18:59 Intake Total 960 Output Total 625 Balance 335 - Medications Medications: Current Medications Acetaminophen (Tylenol 325mg Tab) 650 mg PO Q6H PRN PRN Reason: Pain, moderate (4-7) Last Admin: 12/09/18 15:04 Dose: 650 mg Apixaban (Eliquis) 5 mg PO BID [facility]; Protocol Last Admin: 12/11/18 17:11 Dose: 5 mg Artificial Tears (Refresh Opth Soln) 0.3 ml OU DAILY PRN PRN Reason: Dry eyes Last Admin: 12/11/18 17:12 Dose: 1 drop Atorvastatin Calcium (Lipitor) 40 mg PO DAILY [facility] Last Admin: 12/11/18 09:46 Dose: 40 mg Bumetanide (Bumex) 2 mg PO BID [facility] Last Admin: 12/11/18 17:11 Dose: 2 mg Calcitriol (Rocaltrol) 0.25 mcg PO [facility] [place] [place] Last Admin: 12/11/18 09:47 Dose: 0.25 mcg Calcium Carbonate (Oscal) 500 mg PO DAILY [facility] Last Admin: 12/11/18 09:48 Dose: 500 mg Dextrose (Dextrose 50% Inj) 0 ml IV STAT PRN; Protocol PRN Reason: Hypoglycemia Protocol Digoxin (Digoxin) 0.125 mg PO [facility] [place] [place] Last Admin: 12/11/18 09:48 Dose: 0.125 mg Hydromorphone HCl (Dilaudid) 0.5 mg IVP Q8H PRN PRN Reason: Pain, severe (8-10) Last Admin: 12/12/18 07:28 Dose: 0.5 mg Dextrose (Dextrose 5% In Water 1000 Ml) 1,000 mls @ 0 mls/hr IV .Q0M PRN; Protocol PRN Reason: Hypoglycemia Protocol Aztreonam (Azactam 1 Gm) 100 mls @ 100 mls/hr IVPB Q12 [facility]; Protocol Stop: 12/15/18 22:01 Last Admin: 12/11/18 21:41 Dose: 100 mls/hr Daptomycin 400 mg/ Sodium (Chloride) 100 mls @ 200 mls/hr IV Q48H [facility] Stop: 12/16/18 10:01 Last Admin: 12/11/18 09:46 Dose: 200 mls/hr Sodium Bicarbonate 50 meq/ (Dextrose/Sodium Chloride) 1,050 mls @ 100 mls/hr IV .[id number] [facility] Last Admin: 12/12/18 06:09 Dose: 100 mls/hr Insulin Human Regular (Humulin R Low) 0 units SC ACHS [facility]; Protocol Last Admin: 12/12/18 08:09 Dose: 1 unit Isosorbide Mononitrate (Imdur) 120 mg PO DAILY [facility] Last Admin: 12/11/18 09:48 Dose: 120 mg Magnesium Oxide (Mag-Ox) 400 mg PO BID [facility] Last Admin: 12/11/18 17:11 Dose: 400 mg Metoprolol Succinate (Toprol Xl) 100 mg PO DAILY [facility] Last Admin: 12/11/18 09:49 Dose: 100 mg Mupirocin (Bactroban Ointment) 10 gm TOP BID [facility] Last Admin: 12/11/18 17:11 Dose: 1 applic Ondansetron HCl (Zofran Inj) 4 mg IVP Q4 PRN PRN Reason: Nausea/Vomiting Pantoprazole Sodium (Protonix Inj) 40 mg IVP Q12 [facility] Last Admin: 12/11/18 21:41 Dose: 40 mg Primidone (Mysoline) 50 mg PO HS [facility] Last Admin: 12/11/18 21:41 Dose: 50 mg Tamsulosin HCl (Flomax) 0.4 mg PO HS [facility] Last Admin: 12/11/18 21:41 Dose: 0.4 mg - Labs Labs: 12/12/18 05:45 12/12/18 05:45 PT 24.6 SECONDS (9.4-12.5) H 12/12/18 05:45 INR 2.18 12/12/18 05:45 APTT 40.1 Seconds (26.9-38.3) H 12/12/18 05:45 Attending/Attestation - Attestation I have personally seen and examined this patient.: Yes I have fully participated in the care of the patient.: Yes I have reviewed all pertinent clinical information, including history, physical exam and plan: Yes Notes (Text): 12/11/18 73 year old female with past medical history of CAD s/p CABG, systolic CHF s/p AICD, dilated cardiomyopathy on home dobutamine, history of ischemic colitis s/p ileostomy, and CKD who presented initally with abdominal pain found to have partial SBO, now resolved. GI/Surgery are following; recommended conservative management. She was also found to have staph epidermidis bacteremia for which she is on antibiotics. Repeat cultures are negative. Picc line was removed and replaced. ID is following. Continue with antibiotics for klebsiella UTI. She is on anticoagulation for left subclavian vein thrombus. Hematology is follow ing. She had episode of NSVT for which cardiology and EPS are following. Dobutamine drip was discontinued. Repeat CXR is ordered. Kayexalate given for hyperkalemia. Will repeat level. Will need AICD interrogation prior to discharge. Hermila Gusman MD Hospitalist.
--- NOTE | 2018-12-11 19:19 | PN ---
DATE: 12/11/2018 CARDIOLOGY FOLLOWUP SUBJECTIVE: The patient is off IV dobutamine and off IV inotropes. She denies change in her breathing pattern. PHYSICAL EXAMINATION: VITAL SIGNS: Blood pressure 135/78, heart rates in the 80s. No more ventricular arrhythmias noted. NECK: Negative JVD. LUNGS: Without rales. HEART: S1, S2. EXTREMITIES: Without edema. LABORATORY DATA: Hemoglobin is 8.7. Chemistries, BUN and creatinine are 50 and 2. Glucose is 162. IMPRESSION: 1. End-stage dilated cardiomyopathy. 2. Coronary artery disease. 3. Atrial fibrillation. 4. Low cardiac output. 5. Hypercholesterolemia. 6. Hyperkalemia. Given these findings, we will repeat the potassium stat. We will keep off ionotropic therapy. Vinnie Vidales MD
[2018-12-12] MEDS ORDERED: HYDROmorphone 0.5 mg/0.5 ml ISec IVP ONE (00:02)
[2018-12-12] MEDS: Sodium Bicarbonate 8.4% 50 MEQ in Dextrose 5%/0.45% NS 1,000 ML IV SCH ×2 (06:09→21:34)
[2018-12-12 06:39] LABS: BASO # 0.02 K/mm3 (0.0-2.0); BASO % 0.2 % (0.0-3.0); EOS # 0.5 (0.0-0.7); HEMOGLOBIN 8.7 g/dL (12.0-16.0); LYMPH # 1.3 (1.2-3.4); LYMPH % 10.7 % (22.0-35.0); MEAN CELL VOLUME 95.2 fl (80.0-105.0); MEAN CORPUSCULAR HGB CONC 31.5 g/dl (31.0-37.0); MEAN PLATELET VOLUME 9.2 fl (7.0-11.0); MONO # 0.6 (0.1-0.6); MONO % 5.5 % (1.0-6.0); RBC 2.9 10^6/uL (3.5-6.1); RED CELL DISTRIBUTION WIDTH 18.2 % (11.5-14.5); WHITE BLOOD COUNT 11.7 10^3/uL (4.5-11.0)
[2018-12-12 06:52] LABS: INR 2.18; PARTIAL THROMBOPLASTIN TIME 40.1 Seconds (26.9-38.3); PROTHROMBIN TIME 24.6 SECONDS (9.4-12.5)
[2018-12-12 07:15] LABS: ALB/GLOB RATIO 0.7 (1.1-1.8); ALBUMIN 2.3 g/dL (3.0-4.8); ALT/SGPT 26 U/L (7-56); AST/SGOT 41 U/L (14-36); BLOOD UREA NITROGEN 50 mg/dL (7-21); CALCIUM 7.8 mg/dL (8.4-10.5); GFR NON-AFRICAN AMERICAN 23
[2018-12-12] MEDS: HYDROmorphone 0.5 mg/0.5 ml ISec IVP PRN ×2 (07:28→14:58)
[2018-12-12] MEDS: Insulin Reg-LOW-Coverage SC SCH ×3 (08:09→21:36)
--- NOTE | 2018-12-12 08:11 | RAD ---
Date of service: 12/12/2018 HISTORY: reeval COMPARISON: Portable chest 12/07/2018. FINDINGS: LUNGS: AICD/pacemaker as well as right PICC unchanged in appearance/position. No definitive consolidation appreciated bilaterally. Increased interstitial markings may reflect pulmonary vascular congestion. PLEURA: No significant pleural effusion identified, no pneumothorax apparent. CARDIOVASCULAR: Calcific atherosclerotic changes are seen related to the thoracic aorta. Prominent cardiac size unchanged with borderline pulmonary vascular congestion. Mild pulmonary vascular congestion suspected. Post CABG changes reiterated. OSSEOUS STRUCTURES: No significant abnormalities. VISUALIZED UPPER ABDOMEN: Normal. OTHER FINDINGS: None. IMPRESSION: Increased reticular markings and mild increase in central hilar vascular markings may indicate pulmonary vascular congestion in the interval. Clinically correlate further. No definitive consolidation or pleural effusion bilaterally.
[2018-12-12] MEDS: Magnesium Oxide 400 mg Tab UD PO SCH ×2 (09:31→17:49)
[2018-12-12] MEDS: Metoprolol Succinate 100 mg XL Tab PO SCH (09:33)
[2018-12-12] MEDS: Aztreonam 1 Gm in NS 100mL 100 ML IVPB SCH ×2 (09:34→21:33)
[2018-12-12] MEDS: Mupirocin 2% Ointment 15 GM TUBE TOP SCH ×2 (09:36→17:48)
[2018-12-12] MEDS ORDERED: Primacor 1 mg/ml Inj (10 ml) IVP ONE (12:26)
[2018-12-12] MEDS: Lubricant Eye Drops UD OU PRN (13:10)
--- NOTE | 2018-12-12 13:27 | PN ---
DATE: 12/12/2018 SUBJECTIVE: The patient is weak. PHYSICAL EXAMINATION: VITAL SIGNS: Blood pressure 140/65, heart rates in the 80s. NECK: Negative JVD. LUNGS: Bilateral rales at the bases. HEART: Reveal S1, S2. EXTREMITIES: Trace edema. LABORATORY DATA: Hemoglobin is 8.4, BUN and creatinine 50 and 2.1. IMPRESSION: 1. Recurrent congestive heart failure. 2. End-stage dilated cardiomyopathy. 3. Renal insufficiency. 4. Anemia. 5. Coronary artery disease. 6. Weakness. Given these findings, we will restart the patient on her IV Primacor. The patient will very likely need home Primacor. We will continue her diuretics at this time. Vinnie Vidales MD
--- NOTE | 2018-12-12 14:39 | CP.PCM.PN ---
Subjective - Date & Time of Evaluation Date of Evaluation: 12/12/18 Time of Evaluation: 11:30 - Subjective Subjective: No fevers, comfortable, no pain at the PICC site. Objective - Vital Signs/Intake and Output Vital Signs (last 24 hours): Temp Pulse Resp BP Pulse Ox 98.2 F 85 21 135/78 99 12/11/18 06:00 12/11/18 10:00 12/11/18 06:00 12/11/18 09:49 12/11/18 10:00 Intake and Output: 12/11/18 12/11/18 06:59 18:59 Intake Total 0 Output Total 625 Balance -625 - Medications Medications: Current Medications Acetaminophen (Tylenol 325mg Tab) 650 mg PO Q6H PRN PRN Reason: Pain, moderate (4-7) Last Admin: 12/09/18 15:04 Dose: 650 mg Apixaban (Eliquis) 5 mg PO BID [facility]; Protocol Last Admin: 12/11/18 09:48 Dose: 5 mg Artificial Tears (Refresh Opth Soln) 0.3 ml OU DAILY PRN PRN Reason: Dry eyes Last Admin: 12/09/18 15:45 Dose: 1 drop Atorvastatin Calcium (Lipitor) 40 mg PO DAILY [facility] Last Admin: 12/11/18 09:46 Dose: 40 mg Bumetanide (Bumex) 2 mg PO BID [facility] Last Admin: 12/11/18 09:47 Dose: 2 mg Calcitriol (Rocaltrol) 0.25 mcg [place] [facility] [place] Admin: 12/11/18 09:47 Dose: 0.25 mcg Calcium Carbonate (Oscal) 500 mg PO DAILY [facility] Last Admin: 12/11/18 09:48 Dose: 500 mg Dextrose (Dextrose 50% Inj) 0 ml IV STAT PRN; Protocol PRN Reason: Hypoglycemia Protocol Digoxin (Digoxin) 0.125 mg PO [facility] [place] Last Admin: 12/11/18 09:48 Dose: 0.125 mg Hydromorphone HCl (Dilaudid) 0.5 mg IVP Q8H PRN PRN Reason: Pain, severe (8-10) Last Admin: 12/11/18 08:50 Dose: 0.5 mg Dextrose (Dextrose 5% In Water 1000 Ml) 1,000 mls @ 0 mls/hr IV .Q0M PRN; Protocol PRN Reason: Hypoglycemia Protocol Aztreonam (Azactam 1 Gm) 100 mls @ 100 mls/hr IVPB Q12 [facility]; Protocol Stop: 12/15/18 22:01 Last Admin: 12/11/18 09:46 Dose: 100 mls/hr Daptomycin 400 mg/ Sodium (Chloride) 100 mls @ 200 mls/hr IV Q48H [facility] Stop: 12/16/18 10:01 Last Admin: 12/11/18 09:46 Dose: 200 mls/hr Sodium Bicarbonate 50 meq/ (Dextrose/Sodium Chloride) 1,050 mls @ 100 mls/hr IV .[id number] [facility] Last Admin: 12/11/18 10:48 Dose: 100 mls/hr Insulin Human Regular (Humulin R Low) 0 units SC ACHS [facility]; Protocol Last Admin: 12/11/18 11:53 Dose: 3 unit Isosorbide Mononitrate (Imdur) 120 mg PO DAILY [facility] Last Admin: 12/11/18 09:48 Dose: 120 mg Magnesium Oxide (Mag-Ox) 400 mg PO BID [facility] Last Admin: 12/11/18 09:49 Dose: 400 mg Metoprolol Succinate (Toprol Xl) 100 mg PO DAILY [facility] Last Admin: 12/11/18 09:49 Dose: 100 mg Mupirocin (Bactroban Ointment) 10 gm TOP BID [facility] Last Admin: 12/11/18 09:50 Dose: 1 applic Ondansetron HCl (Zofran Inj) 4 mg IVP Q4 PRN PRN Reason: Nausea/Vomiting Pantoprazole Sodium (Protonix Inj) 40 mg IVP Q12 [facility] Last Admin: 12/11/18 09:49 Dose: 40 mg Primidone (Mysoline) 50 mg PO HS [facility] Last Admin: 12/10/18 21:06 Dose: 50 mg Tamsulosin HCl (Flomax) 0.4 mg PO HS [facility] Last Admin: 12/10/18 21:06 Dose: 0.4 mg - Labs Labs: 12/11/18 05:30 12/11/18 05:30 PT 24.5 SECONDS (9.4-12.5) H 12/11/18 05:30 INR 2.17 12/11/18 05:30 APTT 39.6 Seconds (26.9-38.3) H 12/11/18 05:30 - Constitutional Appears: No Acute Distress, Chronically Ill - Head Exam Head Exam: NORMAL INSPECTION - Respiratory Exam Respiratory Exam: Decreased Breath Sounds - Cardiovascular Exam Cardiovascular Exam: +S1, +S2 - GI/Abdominal Exam GI & Abdominal Exam: Soft. absent: Tenderness - Extremities Exam Additional comments: right arm PICC line site clean Assessment and Plan - Assessment and Plan (Free Text) Plan: Assessment Staph epidermidis bacteremia, R/O related to PICC line S/P removal of PICC line 12/08/2018 R/O UTI with Klebsiella history of hematuria and urinary retention R/O UTI with E. faecalis, S/P treatment with antibiotics S/P left leg cellulitis as well as right sided community-acquired pneumonia S/P left foot 2nd digit skin and skin structure infection CAD S/P CABG abdominal aortic aneurysm S/P repair S/P cholecystectomy S/P pacemaker placement DM S/P left toe amputation Plan continue Daptomycin (Day 5 from time of PICC removal) and azactam; repeat blood cx are negative; now that it is removed, need 5-7 days of IV antibiotics will continue to monitor clinically
--- NOTE | 2018-12-12 15:08 | CP.PCM.PN ---
<Martin Ochoa - Last Filed: 12/12/18 15:05> Subjective - Date & Time of Evaluation Date of Evaluation: 12/12/18 Time of Evaluation: 15:05 - Subjective Subjective: Martin Ochoa, PGY-1, Internal Medicine Progress Note for Dr. Gusman Patient was seen and evaluated at bedside. Patient had no acute overnight events. Patient continues to report right hip pain and left shoulder pain. Patient denies any other symptoms at this time including chest pain, shortness of breath, abdominal distension. 12-point ROS was unremarkable except for what was mentioned above. Objective - Vital Signs/Intake and Output Vital Signs (last 24 hours): Temp Pulse Resp BP Pulse Ox 97.9 F 84 20 140/63 97 12/12/18 07:53 12/12/18 14:00 12/12/18 07:53 12/12/18 13:09 12/12/18 07:53 Intake and Output: 12/12/18 12/12/18 06:59 18:59 Intake Total 960 Output Total 625 Balance 335 - Medications Medications: Current Medications Acetaminophen (Tylenol 325mg Tab) 650 mg PO Q6H PRN PRN Reason: Pain, moderate (4-7) Last Admin: 12/09/18 15:04 Dose: 650 mg Apixaban (Eliquis) 5 mg PO BID [facility]; Protocol Last Admin: 12/12/18 09:32 Dose: 5 mg Artificial Tears (Refresh Opth Soln) 0.3 ml OU DAILY PRN PRN Reason: Dry eyes Last Admin: 12/12/18 13:10 Dose: 1 drop Atorvastatin Calcium (Lipitor) 40 mg PO DAILY [facility] Last Admin: 12/12/18 09:33 Dose: 40 mg Bumetanide (Bumex) 2 mg PO BID [facility] Last Admin: 12/12/18 09:31 Dose: 2 mg Calcitriol (Rocaltrol) 0.25 mcg PO F [facility] Last Admin: 12/11/18 09:47 Dose: 0.25 mcg Calcium Carbonate (Oscal) 500 mg PO DAILY [facility] Last Admin: 12/12/18 09:36 Dose: 500 mg Dextrose (Dextrose 50% Inj) 0 ml IV STAT PRN; Protocol PRN Reason: Hypoglycemia Protocol Digoxin (Digoxin) 0.125 mg PO F [facility] Last Admin: 12/11/18 09:48 Dose: 0.125 mg Furosemide (Lasix) 40 mg IVP DAILY [facility] Last Admin: 12/12/18 13:09 Dose: 40 mg Hydromorphone HCl (Dilaudid) 0.5 mg IVP Q8H PRN PRN Reason: Pain, severe (8-10) Last Admin: 12/12/18 14:58 Dose: 0.5 mg Dextrose (Dextrose 5% In Water 1000 Ml) 1,000 mls @ 0 mls/hr IV .Q0M PRN; Protocol PRN Reason: Hypoglycemia Protocol Aztreonam (Azactam 1 Gm) 100 mls @ 100 mls/hr IVPB Q12 [facility]; Protocol Stop: 12/15/18 22:01 Last Admin: 12/12/18 09:34 Dose: 100 mls/hr Daptomycin 400 mg/ Sodium (Chloride) 100 mls @ 200 mls/hr IV Q48H [facility] Stop: 12/16/18 10:01 Last Admin: 12/11/18 09:46 Dose: 200 mls/hr Sodium Bicarbonate 50 meq/ (Dextrose/Sodium Chloride) 1,050 mls @ 100 mls/hr IV .[id number] [facility] Last Admin: 12/12/18 06:09 Dose: 100 mls/hr Milrinone Lactate/Dextrose (Primacor 20mg/100ml D5w) 100 mls @ 3.984 mls/hr IV .Q24H PRN; Protocol PRN Reason: TITRATE PER MD ORDER Insulin Human Regular (Humulin R Low) 0 units SC ACHS [facility]; Protocol Last Admin: 12/12/18 11:34 Dose: 1 unit Isosorbide Mononitrate (Imdur) 60 mg PO DAILY [facility] Magnesium Oxide (Mag-Ox) 400 mg PO BID [facility] Last Admin: 12/12/18 09:31 Dose: 400 mg Metoprolol Succinate (Toprol Xl) 100 mg PO DAILY [facility] Last Admin: 12/12/18 09:33 Dose: 100 mg Mupirocin (Bactroban Ointment) 10 gm TOP BID [facility] Last Admin: 12/12/18 09:36 Dose: 1 applic Ondansetron HCl (Zofran Inj) 4 mg IVP Q4 PRN PRN Reason: Nausea/Vomiting Pantoprazole Sodium (Protonix Inj) 40 mg IVP Q12 [facility] Last Admin: 12/12/18 09:34 Dose: 40 mg Primidone (Mysoline) 50 mg PO [facility] Last Admin: 12/11/18 21:41 Dose: 50 mg Tamsulosin HCl (Flomax) 0.4 mg PO [facility] Last Admin: 12/11/18 21:41 Dose: 0.4 mg - Labs Labs: 12/12/18 05:45 12/12/18 05:45 PT 24.6 SECONDS (9.4-12.5) H 12/12/18 05:45 INR 2.18 12/12/18 05:45 APTT 40.1 Seconds (26.9-38.3) H 12/12/18 05:45 - Constitutional Appears: Well, Non-toxic, No Acute Distress - Head Exam Head Exam: ATRAUMATIC, NORMAL INSPECTION, NORMOCEPHALIC - Eye Exam Eye Exam: EOMI Pupil Exam: PERRL - ENT Exam ENT Exam: Mucous Membranes Moist - Neck Exam Neck Exam: Full ROM - Respiratory Exam Respiratory Exam: Clear to Ausculation Bilateral, NORMAL BREATHING PATTERN - Cardiovascular Exam Cardiovascular Exam: Tachycardia, REGULAR RHYTHM - GI/Abdominal Exam GI & Abdominal Exam: Soft, Normal Bowel Sounds. absent: Tenderness - Extremities Exam Extremities Exam: Full ROM, Pedal Edema (+2 bilaterally with saldana) - Neurological Exam Neurological Exam: Alert, Awake, CN II-XII Intact, Oriented x3 - Skin Skin Exam: Dry, Intact, Normal Color Assessment and Plan - Assessment and Plan (Free Text) Assessment: 73 year old with past medical history of CAD s/p CABG, DM II, systolic CHF s/p AICD placement, dilated cardiomyopathy on home dobutamine, neuropathy, PVD, HLD, ileostomy for ischemic colitis, chronic hip and knee pain, CKD stage 4, chronic sacral ulcer presented with partial SBO which has now resolved. Patient also was found to have gram + bacteremia on 12/06 and PICC line was removed. Repeat blood cultures were negative. Patient was found to have UTI treated with levaquin. FOBT was found to be positive and is status post 1 U of PRBCs. Patient was recently found to have left subclavian vein thrombus and started on heparin drip. Patient has had episodes of nonsustained ventricular tachycardia with most recent episode of 4 beats and patient was asymptomatic at the time. Plan: Nonsustained Ventricular Tachycardia -4 beats of Ventricular tachycardia today and was asymptomatic. -As per Dr. Renee, EP, continue with metoprolol succinate 100 mg daily -Will consider amiodarone if patient has sustained episodes -AICD evaluated with no parameters changed at this time. Hyperkalemia-resolved -K: 4.8 Gram positive bacteremia -Blood culture 12/05: Staphylococcus epidermitis -Repeat blood culture on 12/06 was negative for 4 days and on 12/08 was negative for 3 days -Likely source is PICC line -PICC line was removed. New PICC line was inserted on 12/09 -Continue with daptomycin and aztreonam day 5 post PICC removal. Treatment duration is 5-7 days post PICC removal Urinary tract infection -Urine culture: Klebsiella pneumoniae -UA: more than 200 protein, trace intact blood, moderate leukocyte esterase, tntc wbc, many bacteria -Continue with daptomycin and aztreonam day 5 post PICC removal. Left subclavian vein thrombosis -Visualized on upper extremity ultrasound -Continue eliquis 5 mg BID was started as per Dr. Hyde. CKD stage IV -BUN/CR: 50/2.1 from creatinine of 1.9 yesterday. -Baseline creatinine is 1.7-2.0 -Hyponatremia at 129 from 130 -Bicarbonate value increased to 19 from 18 -Aranesp dose given -Avoid nephrotoxins such as lisinopril, losartan, IV contrast Partial SBO-resolved -patient tolerating heart healthy diet -patient has adequate stool output -Continue with zofran PRN for nausea and protonix 40 Q12 Normocytic Anemia -Status post 1 U of PRBCs -FOBT was positive -Hemoglobin has been stable at 8.7 -Goal hemoglobin should be more than 8 due to myriad of cardiac problems Dilated cardiomyopathy with EF 46.6% -CXR shows more pulmonary vascular congestion and bilateral lower extremity edema worsened. -Stopped dobutamine drip as per cadiology. -As per Dr. Vidales, will restart milrinone -Continue with aspirin, lipitor, metoprolol, digoxin as per cardiology -Started lasix 40 mg daily -Started isosorbide nitrate 60 mg daily CAD s/p CABG -Continue with home aspirin, lipitor, metoprolol -Started isosorbide nitrate Essential tremor -Continue with home primidone Diabetes mellitus type II -Random glucose: 192 -Continue with low SSI -Maintain euglycemia. GI prophylaxis: protonix 40 mg Q12 DVT prophylaxis: eliquis Disposition: PT initially recommended [facility]. Patient's wants patient to have home PT however. Patient plan discussed with attending. <Hermila Gusman - Last Filed: 12/12/18 17:36> Objective - Vital Signs/Intake and Output Vital Signs (last 24 hours): Temp Pulse Resp BP Pulse Ox 97.9 F 89 20 142/70 97 12/12/18 07:53 12/12/18 15:28 12/12/18 07:53 12/12/18 15:28 12/12/18 07:53 Intake and Output: 12/12/18 12/12/18 06:59 18:59 Intake Total 960 Output Total 625 Balance 335 - Medications Medications: Current Medications Acetaminophen (Tylenol 325mg Tab) 650 mg PO Q6H PRN PRN Reason: Pain, moderate (4-7) Last Admin: 12/09/18 15:04 Dose: 650 mg Apixaban (Eliquis) 5 mg PO BID [facility]; Protocol Last Admin: 12/12/18 09:32 Dose: 5 mg Artificial Tears (Refresh Opth Soln) 0.3 ml OU DAILY PRN PRN Reason: Dry eyes Last Admin: 12/12/18 13:10 Dose: 1 drop Atorvastatin Calcium (Lipitor) 40 mg PO DAILY [facility] Last Admin: 12/12/18 09:33 Dose: 40 mg Bumetanide (Bumex) 2 mg PO BID [facility] Last Admin: 12/12/18 09:31 Dose: 2 mg Calcitriol (Rocaltrol) 0.25 mcg PO [facility] [place] Last Admin: 12/11/18 09:47 Dose: 0.25 mcg Calcium Carbonate (Oscal) 500 mg PO DAILY [facility] Last Admin: 12/12/18 09:36 Dose: 500 mg Dextrose (Dextrose 50% Inj) 0 ml IV STAT PRN; Protocol PRN Reason: Hypoglycemia Protocol Digoxin (Digoxin) 0.125 mg PO F [facility] Last Admin: 12/11/18 09:48 Dose: 0.125 mg Furosemide (Lasix) 40 mg IVP DAILY [facility] Last Admin: 12/12/18 13:09 Dose: 40 mg Hydromorphone HCl (Dilaudid) 0.5 mg IVP Q8H PRN PRN Reason: Pain, severe (8-10) Last Admin: 12/12/18 14:58 Dose: 0.5 mg Dextrose (Dextrose 5% In Water 1000 Ml) 1,000 mls @ 0 mls/hr IV .Q0M PRN; Protocol PRN Reason: Hypoglycemia Protocol Aztreonam (Azactam 1 Gm) 100 mls @ 100 mls/hr IVPB Q12 [facility]; Protocol Stop: 12/15/18 22:01 Last Admin: 12/12/18 09:34 Dose: 100 mls/hr Daptomycin 400 mg/ Sodium (Chloride) 100 mls @ 200 mls/hr IV Q48H [facility] Stop: 12/16/18 10:01 Last Admin: 12/11/18 09:46 Dose: 200 mls/hr Sodium Bicarbonate 50 meq/ (Dextrose/Sodium Chloride) 1,050 mls @ 100 mls/hr IV .[id number] [facility] Last Admin: 12/12/18 06:09 Dose: 100 mls/hr Milrinone Lactate/Dextrose (Primacor 20mg/100ml D5w) 100 mls @ 3.984 mls/hr IV .Q24H PRN; Protocol PRN Reason: TITRATE PER MD ORDER Last Admin: 12/12/18 15:28 Dose: 0.2 mcg/kg/min, 3.984 mls/hr Insulin Human Regular (Humulin R Low) 0 units SC ACHS [facility]; Protocol Last Admin: 12/12/18 11:34 Dose: 1 unit Isosorbide Mononitrate (Imdur) 60 mg PO DAILY [facility] Magnesium Oxide (Mag-Ox) 400 mg PO BID [facility] Last Admin: 12/12/18 09:31 Dose: 400 mg Metoprolol Succinate (Toprol Xl) 100 mg PO DAILY [facility] Last Admin: 12/12/18 09:33 Dose: 100 mg Mupirocin (Bactroban Ointment) 10 gm TOP BID [facility] Last Admin: 12/12/18 09:36 Dose: 1 applic Ondansetron HCl (Zofran Inj) 4 mg IVP Q4 PRN PRN Reason: Nausea/Vomiting Pantoprazole Sodium (Protonix Inj) 40 mg IVP Q12 [facility] Last Admin: 12/12/18 09:34 Dose: 40 mg Primidone (Mysoline) 50 mg PO HS [facility] Last Admin: 12/11/18 21:41 Dose: 50 mg Tamsulosin HCl (Flomax) 0.4 mg PO HS [facility] Last Admin: 12/11/18 21:41 Dose: 0.4 mg - Labs Labs: 12/12/18 05:45 12/12/18 05:45 PT 24.6 SECONDS (9.4-12.5) H 12/12/18 05:45 INR 2.18 12/12/18 05:45 APTT 40.1 Seconds (26.9-38.3) H 12/12/18 05:45 Attending/Attestation - Attestation I have personally seen and examined this patient.: Yes I have fully participated in the care of the patient.: Yes I have reviewed all pertinent clinical information, including history, physical exam and plan: Yes Notes (Text): 12/12/18 17:34 73 year old female with past medical history of CAD s/p CABG, systolic CHF s/p AICD, dilated cardiomyopathy on home dobutamine, history of ischemic colitis s/p ileostomy, and CKD who presented initally with abdominal pain found to have p artial SBO, now resolved. GI/Surgery are following; recommended conservative management. She was also found to have staph epidermidis bacteremia for which she is on antibiotics. Repeat cultures are negative. Picc line was removed and replaced. ID is following. Continue with antibiotics for klebsiella UTI. She is on anticoagulation for left subclavian vein thrombus. Hematology is following. She had episode of NSVT earlier this week. Dobutamine drip was discontinued. EPS evaluation was appreciated. AICD interrogated today. CXR showed increased congestion. Cardiology is following and started lasix and milrinone drip. Hermila Gusman MD Hospitalist.
[2018-12-12] MEDS: Milrinone 20mg/100ml D5W 100 ML IV PRN (15:28)
--- NOTE | 2018-12-12 19:04 | CP.PCM.PN ---
Subjective - Date & Time of Evaluation Date of Evaluation: 12/12/18 Time of Evaluation: 12:00 - Subjective Subjective: Feels tired, at bedside. Objective - Vital Signs/Intake and Output Vital Signs (last 24 hours): Temp Pulse Resp BP Pulse Ox 97.1 F L 85 19 129/51 L 97 12/12/18 18:00 12/12/18 18:00 12/12/18 18:00 12/12/18 18:00 12/12/18 07:53 - Medications Medications: Current Medications Acetaminophen (Tylenol 325mg Tab) 650 mg PO Q6H PRN PRN Reason: Pain, moderate (4-7) Last Admin: 12/09/18 15:04 Dose: 650 mg Apixaban (Eliquis) 5 mg PO BID [facility]; Protocol Last Admin: 12/12/18 17:49 Dose: 5 mg Artificial Tears (Refresh Opth Soln) 0.3 ml OU DAILY PRN PRN Reason: Dry eyes Last Admin: 12/12/18 13:10 Dose: 1 drop Atorvastatin Calcium (Lipitor) 40 mg PO DAILY [facility] Last Admin: 12/12/18 09:33 Dose: 40 mg Bumetanide (Bumex) 2 mg PO BID [facility] Last Admin: 12/12/18 17:49 Dose: 2 mg Calcitriol (Rocaltrol) 0.[address] [facility] [place] Last Admin: 12/11/18 09:47 Dose: 0.25 mcg Calcium Carbonate (Oscal) 500 mg PO DAILY [facility] Last Admin: 12/12/18 09:36 Dose: 500 mg Dextrose (Dextrose 50% Inj) 0 ml IV STAT PRN; Protocol PRN Reason: Hypoglycemia Protocol Digoxin (Digoxin) 0.[address] [facility] [place] Last Admin: 12/11/18 09:48 Dose: 0.125 mg Furosemide (Lasix) 40 mg IVP DAILY [facility] Last Admin: 12/12/18 13:09 Dose: 40 mg Hydromorphone HCl (Dilaudid) 0.5 mg IVP Q8H PRN PRN Reason: Pain, severe (8-10) Last Admin: 12/12/18 14:58 Dose: 0.5 mg Dextrose (Dextrose 5% In Water 1000 Ml) 1,000 mls @ 0 mls/hr IV .Q0M PRN; Protocol PRN Reason: Hypoglycemia Protocol Aztreonam (Azactam 1 Gm) 100 mls @ 100 mls/hr IVPB Q12 [facility]; Protocol Stop: 12/15/18 22:01 Last Admin: 12/12/18 09:34 Dose: 100 mls/hr Daptomycin 400 mg/ Sodium (Chloride) 100 mls @ 200 mls/hr IV Q48H [facility] Stop: 12/16/18 10:01 Last Admin: 12/11/18 09:46 Dose: 200 mls/hr Sodium Bicarbonate 50 meq/ (Dextrose/Sodium Chloride) 1,050 mls @ 100 mls/hr IV .[id number] [facility] Last Admin: 12/12/18 06:09 Dose: 100 mls/hr Milrinone Lactate/Dextrose (Primacor 20mg/100ml D5w) 100 mls @ 3.984 mls/hr IV .Q24H PRN; Protocol PRN Reason: TITRATE PER MD ORDER Last Admin: 12/12/18 15:28 Dose: 0.2 mcg/kg/min, 3.984 mls/hr Insulin Human Regular (Humulin R Low) 0 units SC ACHS [facility]; Protocol Last Admin: 12/12/18 11:34 Dose: 1 unit Isosorbide Mononitrate (Imdur) 60 mg PO DAILY [facility] Magnesium Oxide (Mag-Ox) 400 mg PO BID [facility] Last Admin: 12/12/18 17:49 Dose: 400 mg Metoprolol Succinate (Toprol Xl) 100 mg PO DAILY [facility] Last Admin: 12/12/18 09:33 Dose: 100 mg Mupirocin (Bactroban Ointment) 10 gm TOP BID [facility] Last Admin: 12/12/18 17:48 Dose: Not Given Ondansetron HCl (Zofran Inj) 4 mg IVP Q4 PRN PRN Reason: Nausea/Vomiting Pantoprazole Sodium (Protonix Inj) 40 mg IVP Q12 [facility] Last Admin: 12/12/18 09:34 Dose: 40 mg Primidone (Mysoline) 50 mg PO HS [facility] Last Admin: 12/11/18 21:41 Dose: 50 mg Tamsulosin HCl (Flomax) 0.4 mg PO HS [facility] Last Admin: 12/11/18 21:41 Dose: 0.4 mg - Labs Labs: 12/12/18 05:45 12/12/18 05:45 PT 24.6 SECONDS (9.4-12.5) H 12/12/18 05:45 INR 2.18 12/12/18 05:45 APTT 40.1 Seconds (26.9-38.3) H 12/12/18 05:45 - Head Exam Head Exam: ATRAUMATIC - Eye Exam Eye Exam: Normal appearance - ENT Exam ENT Exam: Mucous Membranes Dry - Respiratory Exam Respiratory Exam: NORMAL BREATHING PATTERN - Cardiovascular Exam Cardiovascular Exam: +S1, +S2 - GI/Abdominal Exam GI & Abdominal Exam: Normal Bowel Sounds Assessment and Plan (1) DVT (deep venous thrombosis) Assessment & Plan: suspect provoked from immobility on Eliquis 5mg BID - reduced renal function noted would continue with Eliquis for now as CrCl ~ 30; if worsens to < 25 chronically then agree with coumadin minimum duration of 3 months Status: Acute (2) Anemia Assessment & Plan: hypoproliferative erythroid response anemia of CKD - s/p Aranesp FOBT positive; monitor for acute drop in H/H while on anticoagulation no evidence of iron deficiency f/u b12/folate stores Status: Acute (3) Coagulopathy Assessment & Plan: anticoagulation Status: Acute
[2018-12-13] MEDS: HYDROmorphone 0.5 mg/0.5 ml ISec IVP PRN ×2 (00:58→15:33)
[2018-12-13] MEDS: Insulin Reg-LOW-Coverage SC SCH ×4 (08:32→21:31)
[2018-12-13 09:02] LABS: BASO # 0.02 K/mm3 (0.0-2.0); BASO % 0.2 % (0.0-3.0); EOS # 0.4 (0.0-0.7); EOS % 3.4 % (1.5-5.0); HEMOGLOBIN 8.8 g/dL (12.0-16.0); LYMPH # 1.2 (1.2-3.4); MEAN CELL VOLUME 94.3 fl (80.0-105.0); MEAN CORPUSCULAR HEMOGLOBIN 29.7 pg (25.0-35.0); MEAN CORPUSCULAR HGB CONC 31.5 g/dl (31.0-37.0); MEAN PLATELET VOLUME 8.9 fl (7.0-11.0); MONO % 7.5 % (1.0-6.0); RBC 2.96 10^6/uL (3.5-6.1)
[2018-12-13 09:13] LABS: ALB/GLOB RATIO 0.7 (1.1-1.8); ALBUMIN 2.2 g/dL (3.0-4.8); CALCIUM 7.6 mg/dL (8.4-10.5)
[2018-12-13] MEDS: Magnesium Oxide 400 mg Tab UD PO SCH ×2 (11:19→17:41)
[2018-12-13] MEDS: Digoxin 125 mcg (0.125 mg) Tab PO SCH (11:30)
[2018-12-13] MEDS: Milrinone 20mg/100ml D5W 100 ML IV PRN (11:31)
[2018-12-13] MEDS: Mupirocin 2% Ointment 15 GM TUBE TOP SCH ×2 (11:34→17:43)
[2018-12-13] MEDS: Aztreonam 1 Gm in NS 100mL 100 ML IVPB SCH ×2 (11:37→21:22)
[2018-12-13] MEDS: Sodium Bicarbonate 8.4% 50 MEQ in Dextrose 5%/0.45% NS 1,000 ML IV SCH (11:38)
--- NOTE | 2018-12-13 11:55 | CP.PCM.PN ---
<Martin Ochoa - Last Filed: 12/13/18 11:52> Subjective - Date & Time of Evaluation Date of Evaluation: 12/13/18 Time of Evaluation: 11:52 - Subjective Subjective: Martin Ochoa, PGY-1, Internal Medicine Progress Note for Dr. Gusman Patient seen and evaluated at bedside. Patient had bladder retention yesterday found to be 400 mL on bladder scan. Jaeger was placed and 800 mL of urine was drained. Patient today complains of insomnia overnight due to being unable to elevate the bed. Patient denies headache, fever, chest pain, shortness of breath, nausea, vomiting, constipation, diarrhea, dysuria, hematuria. 12-point ROS was unremarkable except for what was mentioned above. Objective - Vital Signs/Intake and Output Vital Signs (last 24 hours): Temp Pulse Resp BP Pulse Ox 97.8 F 81 20 101/49 L 98 12/13/18 06:00 12/13/18 06:00 12/13/18 06:00 12/13/18 11:21 12/13/18 06:00 Intake and Output: 12/13/18 12/13/18 06:59 18:59 Intake Total 1588 100 Output Total 900 Balance 688 100 - Medications Medications: Current Medications Acetaminophen (Tylenol 325mg Tab) 650 mg PO Q6H PRN PRN Reason: Pain, moderate (4-7) Last Admin: 12/13/18 06:42 Dose: 650 mg Apixaban (Eliquis) 5 mg PO BID [facility]; Protocol Last Admin: 12/13/18 11:19 Dose: 5 mg Artificial Tears (Refresh Opth Soln) 0.3 ml OU DAILY PRN PRN Reason: Dry eyes Last Admin: 12/12/18 13:10 Dose: 1 drop Atorvastatin Calcium (Lipitor) 40 mg PO DAILY [facility] Last Admin: 12/13/18 11:30 Dose: 40 mg Calcitriol (Rocaltrol) 0.25 mcg PO F [facility] Last Admin: 12/13/18 11:19 Dose: 0.25 mcg Calcium Carbonate (Oscal) 500 mg PO DAILY [facility] Last Admin: 12/13/18 11:24 Dose: 500 mg Dextrose (Dextrose 50% Inj) 0 ml IV STAT PRN; Protocol PRN Reason: Hypoglycemia Protocol Digoxin (Digoxin) 0.125 mg PO [facility] Last Admin: 12/13/18 11:30 Dose: 0.125 mg Furosemide (Lasix) 40 mg IVP DAILY [facility] Last Admin: 12/13/18 11:21 Dose: 40 mg Hydromorphone HCl (Dilaudid) 0.5 mg IVP Q8H PRN PRN Reason: Pain, severe (8-10) Last Admin: 12/13/18 00:58 Dose: 0.5 mg Dextrose (Dextrose 5% In Water 1000 Ml) 1,000 mls @ 0 mls/hr IV .Q0M PRN; Protocol PRN Reason: Hypoglycemia Protocol Aztreonam (Azactam 1 Gm) 100 mls @ 100 mls/hr IVPB Q12 [facility]; Protocol Stop: 12/15/18 22:01 Last Admin: 12/13/18 11:37 Dose: 100 mls/hr Daptomycin 400 mg/ Sodium (Chloride) 100 mls @ 200 mls/hr IV Q48H [facility] Stop: 12/16/18 10:01 Last Admin: 12/11/18 09:46 Dose: 200 mls/hr Sodium Bicarbonate 50 meq/ (Dextrose/Sodium Chloride) 1,050 mls @ 100 mls/hr IV .[id number] [facility] Last Admin: 12/13/18 11:38 Dose: 100 mls/hr Milrinone Lactate/Dextrose (Primacor 20mg/100ml D5w) 100 mls @ 3.984 mls/hr IV .Q24H PRN; Protocol PRN Reason: TITRATE PER MD ORDER Last Admin: 12/13/18 11:31 Dose: 0.2 mcg/kg/min, 3.984 mls/hr Insulin Human Regular (Humulin R Low) 0 units SC [facility]; Protocol Last Admin: 12/13/18 08:32 Dose: 2 unit Isosorbide Mononitrate (Imdur) 60 mg PO DAILY [facility] Magnesium Oxide (Mag-Ox) 400 mg PO BID [facility] Last Admin: 12/13/18 11:19 Dose: 400 mg Metoprolol Succinate (Toprol Xl) 50 mg PO DAILY [facility] Mupirocin (Bactroban Ointment) 10 gm TOP BID [facility] Last Admin: 12/13/18 11:34 Dose: Not Given Ondansetron HCl (Zofran Inj) 4 mg IVP Q4 PRN PRN Reason: Nausea/Vomiting Pantoprazole Sodium (Protonix Inj) 40 mg IVP Q12 [facility] Last Admin: 12/12/18 21:33 Dose: 40 mg Primidone (Mysoline) 50 mg PO [facility] Last Admin: 12/12/18 21:33 Dose: 50 mg Tamsulosin HCl (Flomax) 0.4 mg PO [facility] Last Admin: 12/12/18 21:33 Dose: 0.4 mg - Labs Labs: 12/13/18 08:50 12/13/18 08:50 PT 24.6 SECONDS (9.4-12.5) H 12/12/18 05:45 INR 2.18 12/12/18 05:45 APTT 40.1 Seconds (26.9-38.3) H 12/12/18 05:45 - Constitutional Appears: Well, Non-toxic, No Acute Distress - Head Exam Head Exam: ATRAUMATIC, NORMAL INSPECTION, NORMOCEPHALIC - Eye Exam Eye Exam: EOMI Pupil Exam: PERRL - Respiratory Exam Respiratory Exam: Clear to Ausculation Bilateral, NORMAL BREATHING PATTERN - Cardiovascular Exam Cardiovascular Exam: REGULAR RHYTHM, RRR - GI/Abdominal Exam GI & Abdominal Exam: Soft, Normal Bowel Sounds. absent: Tenderness - Extremities Exam Extremities Exam: Pedal Edema (saldana of bilateral lower extremities). absent: Full ROM (unable to move bilateral lower extremities) - Neurological Exam Neurological Exam: Alert, Awake, CN II-XII Intact, Oriented x3 Neuro motor strength exam: Left Upper Extremity: 5, Right Upper Extremity: 5, Left Lower Extremity: 0, Right Lower Extremity: 0 - Skin Skin Exam: Dry, Intact Assessment and Plan - Assessment and Plan (Free Text) Assessment: 73 year old with past medical history of CAD s/p CABG, DM II, systolic CHF s/p AICD placement, dilated cardiomyopathy on home dobutamine, neuropathy, PVD, HLD, ileostomy for ischemic colitis, chronic hip and knee pain, CKD stage 4, chronic sacral ulcer presented with partial SBO which has now resolved. Patient also was found to have gram + bacteremia on 12/06 and PICC line was removed. Repeat blood cultures were negative. Patient was found to have UTI treated with levaquin. FOBT was found to be positive and is status post 1 U of PRBCs. Patient was recently found to have left subclavian vein thrombus and started on heparin drip. Patient has had episodes of nonsustained ventricular tachycardia with most recent episode of 4 beats and patient was asymptomatic at the time. Plan: Nonsustained Ventricular Tachycardia -4 beats of Ventricular tachycardia yesterday and was asymptomatic. -As per Dr. Renee EP, continue with metoprolol succinate 100 mg daily -Will consider amiodarone if patient has sustained episodes -AICD evaluated with no parameters changed at this time. Gram positive bacteremia -Blood culture 12/05: Staphylococcus epidermitis -Repeat blood culture on 12/06 was negative for 5 days and on 12/08 was negative for 5 days -Likely source is PICC line -PICC line was removed. New PICC line was inserted on 12/09 -Continue with daptomycin and aztreonam day 6 post PICC removal. Treatment duration is 5-7 days post PICC removal Urinary tract infection -Urine culture: Klebsiella pneumoniae -UA: more than 200 protein, trace intact blood, moderate leukocyte esterase, tntc wbc, many bacteria -Continue with daptomycin and aztreonam day 6 post PICC removal. Left subclavian vein thrombosis -Visualized on upper extremity ultrasound -Continue eliquis 5 mg BID was started as per Dr. Hyde. Watch for worsening of renal status of creatinine clearance less than 15. If so, discontinue eliquis. At this time, creatinine clearance was 35. CKD stage IV -BUN/CR: 50/1.8 from creatinine of 2.1 yesterday. -Baseline creatinine is 1.7-2.0 -Hyponatremia at 129 from 129 -Bicarbonate value increased to 20 from 19 -Aranesp dose given -Avoid nephrotoxins such as lisinopril, losartan, IV contrast Partial SBO-resolved -patient tolerating heart healthy diet -patient has adequate stool output -Continue with zofran PRN for nausea and protonix 40 Q12 Normocytic Anemia -Status post 1 U of PRBCs -FOBT was positive -Hemoglobin has been stable at 8.8 -Goal hemoglobin should be more than 8 due to myriad of cardiac problems Dilated cardiomyopathy with EF 46.6% -CXR 12/12 shows more pulmonary vascular congestion and bilateral lower extremity edema worsened. -Clinically improved today -Stopped dobutamine drip as per cadiology. -As per Dr. Vidales, continue milrinone drip -Continue with aspirin, lipitor, digoxin, lasix, isosorbide nitrate as per cardiology -Started metoprolol succinate 50 mg daily CAD s/p CABG -Continue with home aspirin, lipitor, metoprolol, isosorbide nitrate -Started isosorbide nitrate Essential tremor -Continue with home primidone Diabetes mellitus type II -Random glucose: 222 -Continue with low SSI -Maintain euglycemia. GI prophylaxis: protonix 40 mg Q12 DVT prophylaxis: eliquis Disposition: PT initially recommended [facility]. Patient's wants patient to have home PT however. Patient plan discussed with attending. <Hermila Gusman - Last Filed: 12/13/18 17:13> Objective - Vital Signs/Intake and Output Vital Signs (last 24 hours): Temp Pulse Resp BP Pulse Ox 98.1 F 86 18 101/49 L 98 12/13/18 12:00 12/13/18 14:00 12/13/18 12:00 12/13/18 12:00 12/13/18 06:00 Intake and Output: 12/13/18 12/13/18 06:59 18:59 Intake Total 1588 100 Output Total 900 Balance 688 100 - Medications Medications: Current Medications Acetaminophen (Tylenol 325mg Tab) 650 mg PO Q6H PRN PRN Reason: Pain, moderate (4-7) Last Admin: 12/13/18 06:42 Dose: 650 mg Apixaban (Eliquis) 5 mg PO BID [facility]; Protocol Last Admin: 12/13/18 11:19 Dose: 5 mg Artificial Tears (Refresh Opth Soln) 0.3 ml OU DAILY PRN PRN Reason: Dry eyes Last Admin: 12/12/18 13:10 Dose: 1 drop Atorvastatin Calcium (Lipitor) 40 mg PO DAILY [facility] Last Admin: 12/13/18 11:30 Dose: 40 mg Calcitriol (Rocaltrol) 0.25 mcg PO MWF [facility] Last Admin: 12/13/18 11:19 Dose: 0.25 mcg Calcium Carbonate (Oscal) 500 mg PO DAILY [facility] Last Admin: 12/13/18 11:24 Dose: 500 mg Dextrose (Dextrose 50% Inj) 0 ml IV STAT PRN; Protocol PRN Reason: Hypoglycemia Protocol Digoxin (Digoxin) 0.125 mg PO F [facility] Last Admin: 12/13/18 11:30 Dose: 0.125 mg Furosemide (Lasix) 40 mg IVP DAILY [facility] Last Admin: 12/13/18 11:21 Dose: 40 mg Hydromorphone HCl (Dilaudid) 0.5 mg IVP Q8H PRN PRN Reason: Pain, severe (8-10) Last Admin: 12/13/18 15:33 Dose: 0.5 mg Dextrose (Dextrose 5% In Water 1000 Ml) 1,000 mls @ 0 mls/hr IV .Q0M PRN; Protocol PRN Reason: Hypoglycemia Protocol Aztreonam (Azactam 1 Gm) 100 mls @ 100 mls/hr IVPB Q12 [facility]; Protocol Stop: 12/15/18 22:01 Last Admin: 12/13/18 11:37 Dose: 100 mls/hr Daptomycin 400 mg/ Sodium (Chloride) 100 mls @ 200 mls/hr IV Q48H [facility] Stop: 12/16/18 10:01 Last Admin: 12/13/18 13:48 Dose: 200 mls/hr Sodium Bicarbonate 50 meq/ (Dextrose/Sodium Chloride) 1,050 mls @ 100 mls/hr IV .[id number] [facility] Last Admin: 12/13/18 11:38 Dose: 100 mls/hr Milrinone Lactate/Dextrose (Primacor 20mg/100ml D5w) 100 mls @ 3.984 mls/hr IV .Q24H PRN; Protocol PRN Reason: TITRATE PER MD ORDER Last Admin: 12/13/18 11:31 Dose: 0.2 mcg/kg/min, 3.984 mls/hr Insulin Human Regular (Humulin R Low) 0 units SC ACHS [facility]; Protocol Last Admin: 12/13/18 13:54 Dose: Not Given Isosorbide Mononitrate (Imdur) 60 mg PO DAILY [facility] Magnesium Oxide (Mag-Ox) 400 mg PO BID [facility] Last Admin: 12/13/18 11:19 Dose: 400 mg Metoprolol Succinate (Toprol Xl) 50 mg PO DAILY [facility] Mupirocin (Bactroban Ointment) 10 gm TOP BID [facility] Last Admin: 12/13/18 11:34 Dose: Not Given Ondansetron HCl (Zofran Inj) 4 mg IVP Q4 PRN PRN Reason: Nausea/Vomiting Pantoprazole Sodium (Protonix Inj) 40 mg IVP Q12 [facility] Last Admin: 12/13/18 11:50 Dose: 40 mg Primidone (Mysoline) 50 mg PO HS [facility] Last Admin: 12/12/18 21:33 Dose: 50 mg Tamsulosin HCl (Flomax) 0.4 mg PO HS [facility] Last Admin: 12/12/18 21:33 Dose: 0.4 mg - Labs Labs: 12/13/18 08:50 12/13/18 08:50 PT 24.6 SECONDS (9.4-12.5) H 12/12/18 05:45 INR 2.18 12/12/18 05:45 APTT 40.1 Seconds (26.9-38.3) H 12/12/18 05:45 Attending/Attestation - Attestation I have personally seen and examined this patient.: Yes I have fully participated in the care of the patient.: Yes I have reviewed all pertinent clinical information, including history, physical exam and plan: Yes Notes (Text): 12/13/18 17:12 73 year old female with past medical history of CAD s/p CABG, systolic CHF s/p AICD, dilated cardiomyopathy on home dobutamine, history of ischemic colitis s/p ileostomy, and CKD who presented initally with abdominal pain found to have partial SBO, now resolved. She was also found to have staph epidermidis bacteremia for which she is on antibiotics. Repeat cultures are negative. Picc line was removed and replaced. ID is following. Continue with antibiotics for klebsiella UTI. She is on anticoagulation for left subclavian vein thrombus. Hematology is following. She had episode of NSVT earlier this week. Dobutamine drip was discontinued. EPS evaluation was appreciated. AICD interrogated yesterday. Patient is on iv lasix and milrinone drip for CHF. Cardiology is following. Hermila Gusman MD Hospitalist.
--- NOTE | 2018-12-13 13:49 | CP.PCM.PN ---
Subjective - Date & Time of Evaluation Date of Evaluation: 12/13/18 Time of Evaluation: 13:48 - Subjective Subjective: Podiatry consult note for Dr. Vinnie Cortés, 73 y/o female was seen and evaluated at bedside for a right heel wound. Patient' family is present at bedside. Patient denies any acute overnight events. Patient denies any nausea, vomiting, shortness of breath, chest pain or urinary complaints at this time. Objective - Vital Signs/Intake and Output Vital Signs (last 24 hours): Temp Pulse Resp BP Pulse Ox 98.1 F 75 18 101/49 L 98 12/13/18 12:00 12/13/18 12:00 12/13/18 12:00 12/13/18 12:00 12/13/18 06:00 Intake and Output: 12/13/18 12/13/18 06:59 18:59 Intake Total 1588 100 Output Total 900 Balance 688 100 - Medications Medications: Current Medications Acetaminophen (Tylenol 325mg Tab) 650 mg PO Q6H PRN PRN Reason: Pain, moderate (4-7) Last Admin: 12/13/18 06:42 Dose: 650 mg Apixaban (Eliquis) 5 mg PO BID [facility]; Protocol Last Admin: 12/13/18 11:19 Dose: 5 mg Artificial Tears (Refresh Opth Soln) 0.3 ml OU DAILY PRN PRN Reason: Dry eyes Last Admin: 12/12/18 13:10 Dose: 1 drop Atorvastatin Calcium (Lipitor) 40 mg PO DAILY [facility] Last Admin: 12/13/18 11:30 Dose: 40 mg Calcitriol (Rocaltrol) 0.25 mcg PO MWF [facility] Last Admin: 12/13/18 11:19 Dose: 0.25 mcg Calcium Carbonate (Oscal) 500 mg PO DAILY [facility] Last Admin: 12/13/18 11:24 Dose: 500 mg Dextrose (Dextrose 50% Inj) 0 ml IV STAT PRN; Protocol PRN Reason: Hypoglycemia Protocol Digoxin (Digoxin) 0.125 mg PO MWF [facility] Last Admin: 12/13/18 11:30 Dose: 0.125 mg Furosemide (Lasix) 40 mg IVP DAILY [facility] Last Admin: 12/13/18 11:21 Dose: 40 mg Hydromorphone HCl (Dilaudid) 0.5 mg IVP Q8H PRN PRN Reason: Pain, severe (8-10) Last Admin: 12/13/18 00:58 Dose: 0.5 mg Dextrose (Dextrose 5% In Water 1000 Ml) 1,000 mls @ 0 mls/hr IV .Q0M PRN; Protocol PRN Reason: Hypoglycemia Protocol Aztreonam (Azactam 1 Gm) 100 mls @ 100 mls/hr IVPB Q12 [facility]; Protocol Stop: 12/15/18 22:01 Last Admin: 12/13/18 11:37 Dose: 100 mls/hr Daptomycin 400 mg/ Sodium (Chloride) 100 mls @ 200 mls/hr IV Q48H [facility] Stop: 12/16/18 10:01 Last Admin: 12/11/18 09:46 Dose: 200 mls/hr Sodium Bicarbonate 50 meq/ (Dextrose/Sodium Chloride) 1,050 mls @ 100 mls/hr IV .[id number] [facility] Last Admin: 12/13/18 11:38 Dose: 100 mls/hr Milrinone Lactate/Dextrose (Primacor 20mg/100ml D5w) 100 mls @ 3.984 mls/hr IV .Q24H [facility]N; Protocol PRN Reason: TITRATE PER MD ORDER Last Admin: 12/13/18 11:31 Dose: 0.2 mcg/kg/min, 3.984 mls/hr Insulin Human Regular (Humulin R Low) 0 units SC ACHS [facility]; Protocol Last Admin: 12/13/18 08:32 Dose: 2 unit Isosorbide Mononitrate (Imdur) 60 mg PO DAILY [facility] Magnesium Oxide (Mag-Ox) 400 mg PO BID [facility] Last Admin: 12/13/18 11:19 Dose: 400 mg Metoprolol Succinate (Toprol Xl) 50 mg PO DAILY [facility] Mupirocin (Bactroban Ointment) 10 gm TOP BID [facility] Last Admin: 12/13/18 11:34 Dose: Not Given Ondansetron HCl (Zofran Inj) 4 mg IVP Q4 PRN PRN Reason: Nausea/Vomiting Pantoprazole Sodium (Protonix Inj) 40 mg IVP Q12 [facility] Last Admin: 12/13/18 11:50 Dose: 40 mg Primidone (Mysoline) 50 mg PO HS [facility] Last Admin: 12/12/18 21:33 Dose: 50 mg Tamsulosin HCl (Flomax) 0.4 mg PO HS [facility] Last Admin: 12/12/18 21:33 Dose: 0.4 mg - Labs Labs: 12/13/18 08:50 12/13/18 08:50 PT 24.6 SECONDS (9.4-12.5) H 12/12/18 05:45 INR 2.18 12/12/18 05:45 APTT 40.1 Seconds (26.9-38.3) H 12/12/18 05:45 - Constitutional Appears: Well, Non-toxic, No Acute Distress - Head Exam Head Exam: ATRAUMATIC, NORMOCEPHALIC - Extremities Exam Additional comments: Bilateral Lower Extremity exam VASC: DP and PT 2/4 bilaterally, CFT less than 3 seconds to the remaining digits, no edema noted, TG within normal limits DERM: RIGHT- decubitus tissue injury noted to the right heel significantly improving, wound is superficial with no surrounding erythema at this time, no probe to bone, no malodor, no signs of infection, no drainage, no malodor LEFT- hyperkeratotic lesions noted to the left hallux amputation site, no open wounds, no probe to bone, no malodor, no signs of infection, no drainage, no malodor NEURO: grossly intact bilaterally ORTHO: pain on palpation to the wound site, minimal pain with range of motion, muscular strength 5/5 - Neurological Exam Neurological Exam: Alert, Awake, Oriented x3 - Psychiatric Exam Psychiatric exam: Normal Affect, Normal Mood Assessment and Plan - Assessment and Plan (Free Text) Assessment: 73 y/o female patient seen and evaluated at bedside for stable right heel wound Plan: Patient seen and evaluated Plan discussed with Dr. Cortés Chart, labs and vitals were reviewed- afebrile, positive leukocytosis WBC 11.6 likely secondary to UTI vs. bacteremia Patient wound stable at this time from Podiatric standpoint, non-infected Patient right heel wound cleansed with saline and dressed with Optifoam Lotion applied to bilateral feet and legs for xerosis Patient advised to use pillow to keep the right heel elevated at all time Patient and family demonstrated verbal understanding Podiatry will continue to follow the patient
--- NOTE | 2018-12-13 14:05 | PN ---
DATE: 12/13/2018 CARDIOLOGY FOLLOWUP SUBJECTIVE: The patient has general malaise and weakness. Her breathing is better. PHYSICAL EXAMINATION: VITAL SIGNS: Blood pressure is 136/69, heart rate in the 70s, atrial fibrillation. NECK: Negative JVD. LUNGS: Clear to auscultation. HEART: Reveal S1, S2. EXTREMITIES: No edema noted. LABORATORY DATA: Hemoglobin is 8.8. Chemistries, BUN and creatinine are 50 and 1.8, glucose is 222. IMPRESSION: 1. Congestive heart failure resolved with intravenous Primacor. 2. General malaise. 3. Diabetes mellitus. 4. Renal insufficiency. 5. Low cardiac output syndrome. 6. Urinary retention. Given these findings, we will decrease her Lopressor to 50 daily. We will continue her IV Primacor. Vinnie Vidales MD
--- NOTE | 2018-12-13 15:47 | CP.PCM.PN ---
Subjective - Date & Time of Evaluation Date of Evaluation: 12/13/18 Time of Evaluation: 09:20 - Subjective Subjective: No pain in the right arm where PICC line is, no fevers, no abdominal pain. Objective - Vital Signs/Intake and Output Vital Signs (last 24 hours): Temp Pulse Resp BP Pulse Ox 97.9 F 84 20 140/63 97 12/12/18 07:53 12/12/18 14:00 12/12/18 07:53 12/12/18 13:09 12/12/18 07:53 Intake and Output: 12/12/18 12/12/18 06:59 18:59 Intake Total 960 Output Total 625 Balance 335 - Medications Medications: Current Medications Acetaminophen (Tylenol 325mg Tab) 650 mg PO Q6H PRN PRN Reason: Pain, moderate (4-7) Last Admin: 12/09/18 15:04 Dose: 650 mg Apixaban (Eliquis) 5 mg PO BID [facility]; Protocol Last Admin: 12/12/18 09:32 Dose: 5 mg Artificial Tears (Refresh Opth Soln) 0.3 ml OU DAILY PRN PRN Reason: Dry eyes Last Admin: 12/12/18 13:10 Dose: 1 drop Atorvastatin Calcium (Lipitor) 40 mg PO DAILY [facility] Last Admin: 12/12/18 09:33 Dose: 40 mg Bumetanide (Bumex) 2 mg PO BID [facility] Last Admin: 12/12/18 09:31 Dose: 2 mg Calcitriol (Rocaltrol) 0.25 mcg PO MWF [facility] Last Admin: 12/11/18 09:47 Dose: 0.25 mcg Calcium Carbonate (Oscal) 500 mg PO DAILY [facility] Last Admin: 12/12/18 09:36 Dose: 500 mg Dextrose (Dextrose 50% Inj) 0 ml IV STAT PRN; Protocol PRN Reason: Hypoglycemia Protocol Digoxin (Digoxin) 0.125 mg PO F [facility] Last Admin: 12/11/18 09:48 Dose: 0.125 mg Furosemide (Lasix) 40 mg IVP DAILY [facility] Last Admin: 12/12/18 13:09 Dose: 40 mg Hydromorphone HCl (Dilaudid) 0.5 mg IVP Q8H PRN PRN Reason: Pain, severe (8-10) Last Admin: 12/12/18 07:28 Dose: 0.5 mg Dextrose (Dextrose 5% In Water 1000 Ml) 1,000 mls @ 0 mls/hr IV .Q0M PRN; Shubham col PRN Reason: Hypoglycemia Protocol Aztreonam (Azactam 1 Gm) 100 mls @ 100 mls/hr IVPB Q12 [facility]; Protocol Stop: 12/15/18 22:01 Last Admin: 12/12/18 09:34 Dose: 100 mls/hr Daptomycin 400 mg/ Sodium (Chloride) 100 mls @ 200 mls/hr IV Q48H [facility] Stop: 12/16/18 10:01 Last Admin: 12/11/18 09:46 Dose: 200 mls/hr Sodium Bicarbonate 50 meq/ (Dextrose/Sodium Chloride) 1,050 mls @ 100 mls/hr IV .[id number] [facility] Last Admin: 12/12/18 06:09 Dose: 100 mls/hr Milrinone Lactate/Dextrose (Primacor 20mg/100ml D5w) 100 mls @ 3.984 mls/hr IV .Q24H [facility]; Protocol PRN Reason: TITRATE PER MD ORDER Insulin Human Regular (Humulin R Low) 0 units SC ACHS [facility]; Protocol Last Admin: 12/12/18 11:34 Dose: 1 unit Isosorbide Mononitrate (Imdur) 60 mg PO DAILY [facility] Magnesium Oxide (Mag-Ox) 400 mg PO BID [facility] Last Admin: 12/12/18 09:31 Dose: 400 mg Metoprolol Succinate (Toprol Xl) 100 mg PO DAILY [facility] Last Admin: 12/12/18 09:33 Dose: 100 mg Mupirocin (Bactroban Ointment) 10 gm TOP BID [facility] Last Admin: 12/12/18 09:36 Dose: 1 applic Ondansetron HCl (Zofran Inj) 4 mg IVP Q4 PRN PRN Reason: Nausea/Vomiting Pantoprazole Sodium (Protonix Inj) 40 mg IVP Q12 [facility] Last Admin: 12/12/18 09:34 Dose: 40 mg Primidone (Mysoline) 50 mg PO HS [facility] Last Admin: 12/11/18 21:41 Dose: 50 mg Tamsulosin HCl (Flomax) 0.4 mg PO HS [facility] Last Admin: 12/11/18 21:41 Dose: 0.4 mg - Labs Labs: 12/12/18 05:45 12/12/18 05:45 PT 24.6 SECONDS (9.4-12.5) H 12/12/18 05:45 INR 2.18 12/12/18 05:45 APTT 40.1 Seconds (26.9-38.3) H 12/12/18 05:45 - Constitutional Appears: No Acute Distress, Chronically Ill - Head Exam Head Exam: NORMAL INSPECTION - Respiratory Exam Respiratory Exam: Decreased Breath Sounds - Cardiovascular Exam Cardiovascular Exam: +S1, +S2 - GI/Abdominal Exam GI & Abdominal Exam: Soft. absent: Tenderness Assessment and Plan - Assessment and Plan (Free Text) Plan: Assessment Staph epidermidis bacteremia, R/O related to PICC line S/P removal of PICC line 12/08/2018 R/O UTI with Klebsiella history of hematuria and urinary retention R/O UTI with E. faecalis, S/P treatment with antibiotics S/P left leg cellulitis as well as right sided community-acquired pneumonia S/P left foot 2nd digit skin and skin structure infection CAD S/P CABG abdominal aortic aneurysm S/P repair S/P cholecystectomy S/P pacemaker placement DM S/P left toe amputation Plan continue Daptomycin (Day 6 from time of PICC removal) and azactam; repeat blood cx are negative; now that it is removed, need 5-7 days of IV antibiotics will continue to monitor clinically while the patient is in the hospital
[2018-12-13] MEDS: Lubricant Eye Drops UD OU PRN (17:41)
[2018-12-14] MEDS: Sodium Bicarbonate 8.4% 50 MEQ in Dextrose 5%/0.45% NS 1,000 ML IV SCH (01:47)
[2018-12-14] MEDS: HYDROmorphone 0.5 mg/0.5 ml ISec IVP PRN ×3 (01:52→21:22)
[2018-12-14 05:47] LABS: BASO # 0.01 K/mm3 (0.0-2.0); BASO % 0.1 % (0.0-3.0); EOS # 0.2 (0.0-0.7); EOS % 1.5 % (1.5-5.0); HEMOGLOBIN 8.6 g/dL (12.0-16.0); LYMPH % 7.7 % (22.0-35.0); MEAN CELL VOLUME 94.4 fl (80.0-105.0); MEAN CORPUSCULAR HEMOGLOBIN 29.9 pg (25.0-35.0); MEAN CORPUSCULAR HGB CONC 31.6 g/dl (31.0-37.0); MEAN PLATELET VOLUME 8.6 fl (7.0-11.0); MONO # 0.8 (0.1-0.6); RBC 2.88 10^6/uL (3.5-6.1); RED CELL DISTRIBUTION WIDTH 17.9 % (11.5-14.5); WHITE BLOOD COUNT 12.9 10^3/uL (4.5-11.0)
[2018-12-14 06:04] LABS: ALB/GLOB RATIO 0.7 (1.1-1.8); ALBUMIN 2.2 g/dL (3.0-4.8); CALCIUM 7.8 mg/dL (8.4-10.5)
[2018-12-14] MEDS: Insulin Reg-LOW-Coverage SC SCH ×4 (08:02→21:22)
[2018-12-14] MEDS: Aztreonam 1 Gm in NS 100mL 100 ML IVPB SCH ×2 (09:41→21:21)
[2018-12-14] MEDS ORDERED: Levalbuterol 0.63 MG/3 ML Inhal Soln UD IH PRN (09:48)
[2018-12-14] MEDS: Magnesium Oxide 400 mg Tab UD PO SCH (09:58)
[2018-12-14] MEDS: Metoprolol Succinate 50 mg XL Tab PO SCH (10:06)
[2018-12-14] MEDS: Lubricant Eye Drops UD OU PRN (10:10)
[2018-12-14] MEDS: Mupirocin 2% Ointment 15 GM TUBE TOP SCH ×3 (10:48→23:15)
--- NOTE | 2018-12-14 12:06 | CP.PCM.PN ---
<Martin Ochoa - Last Filed: 12/14/18 12:00> Subjective - Date & Time of Evaluation Date of Evaluation: 12/14/18 Time of Evaluation: 12:01 - Subjective Subjective: Martin Ohcoa, PGY-1, Internal Medicine Progress Note for Dr. Gusman Patient seen and evaluated at bedside. Patient had no acute overnight events. Patient reports increased generalized weakness, left calf swelling, and continuation of right hip and left shoulder pain. Patient denied headache, fever, chest pain, shortness of breath, nausea, vomiting, constipation, diarrhea, dysuria, hematuria. 12-point ROS was unremarkable except for what was mentioned above. Objective - Vital Signs/Intake and Output Vital Signs (last 24 hours): Temp Pulse Resp BP Pulse Ox 98.6 F 102 H 18 100/64 99 12/14/18 06:00 12/14/18 10:06 12/14/18 06:00 12/14/18 10:06 12/14/18 06:00 Intake and Output: 12/14/18 12/14/18 06:59 18:59 Intake Total 1888 Output Total 600 Balance 1288 - Medications Medications: Current Medications Acetaminophen (Tylenol 325mg Tab) 650 mg PO Q6H PRN PRN Reason: Pain, moderate (4-7) Last Admin: 12/13/18 06:42 Dose: 650 mg Apixaban (Eliquis) 5 mg PO BID [facility]; Protocol Last Admin: 12/14/18 09:58 Dose: 5 mg Artificial Tears (Refresh Opth Soln) 0.3 ml OU DAILY PRN PRN Reason: Dry eyes Last Admin: 12/14/18 10:10 Dose: 1 drop Atorvastatin Calcium (Lipitor) 40 mg PO DAILY [facility] Last Admin: 12/14/18 09:58 Dose: 40 mg Calcitriol (Rocaltrol) 0.25 mcg PO MWF [facility] Last Admin: 12/13/18 11:19 Dose: 0.25 mcg Calcium Carbonate (Oscal) 500 mg PO DAILY [facility] Last Admin: 12/14/18 09:58 Dose: 500 mg Dextrose (Dextrose 50% Inj) 0 ml IV STAT PRN; Protocol PRN Reason: Hypoglycemia Protocol Digoxin (Digoxin) 0.125 mg PO F [facility] Last Admin: 12/13/18 11:30 Dose: 0.125 mg Furosemide (Lasix) 40 mg IVP DAILY [facility] Last Admin: 12/14/18 09:56 Dose: 40 mg Hydromorphone HCl (Dilaudid) 0.5 mg IVP Q8H PRN PRN Reason: Pain, severe (8-10) Last Admin: 12/14/18 10:14 Dose: 0.5 mg Dextrose (Dextrose 5% In Water 1000 Ml) 1,000 mls @ 0 mls/hr IV .Q0M PRN; Protocol PRN Reason: Hypoglycemia Protocol Aztreonam (Azactam 1 Gm) 100 mls @ 100 mls/hr IVPB Q12 [facility]; Protocol Stop: 12/15/18 22:01 Last Admin: 12/14/18 09:41 Dose: 100 mls/hr Daptomycin 400 mg/ Sodium (Chloride) 100 mls @ 200 mls/hr IV Q48H [facility] Stop: 12/16/18 10:01 Last Admin: 12/13/18 13:48 Dose: 200 mls/hr Sodium Bicarbonate 50 meq/ (Dextrose/Sodium Chloride) 1,050 mls @ 100 mls/hr IV .[id number] [facility] Last Admin: 12/14/18 01:47 Dose: 100 mls/hr Milrinone Lactate/Dextrose (Primacor 20mg/100ml D5w) 100 mls @ 3.984 mls/hr IV .Q24H PRN; Protocol PRN Reason: TITRATE PER MD ORDER Last Admin: 12/13/18 11:31 Dose: 0.2 mcg/kg/min, 3.984 mls/hr Insulin Human Regular (Humulin R Low) 0 units SC ACHS [facility]; Protocol Last Admin: 12/14/18 08:02 Dose: 2 unit Isosorbide Mononitrate (Imdur) 60 mg PO DAILY [facility] Last Admin: 12/14/18 10:07 Dose: 60 mg Levalbuterol HCl (Xopenex) 0.63 mg IH [id number] PRN PRN Reason: Shortness of Breath Last Admin: 12/14/18 10:17 Dose: 0.63 mg Magnesium Oxide (Mag-Ox) 400 mg PO BID [facility] Last Admin: 12/14/18 09:58 Dose: 400 mg Metoprolol Succinate (Toprol Xl) 50 mg PO DAILY [facility] Last Admin: 12/14/18 10:06 Dose: 50 mg Mupirocin (Bactroban Ointment) 10 gm TOP BID [facility] Last Admin: 12/14/18 10:48 Dose: Not Given Ondansetron HCl (Zofran Inj) 4 mg IVP Q4 PRN PRN Reason: Nausea/Vomiting Pantoprazole Sodium (Protonix Inj) 40 mg IVP Q12 [facility] Last Admin: 12/14/18 09:55 Dose: 40 mg Primidone (Mysoline) [address] [facility] Last Admin: 12/13/18 21:22 Dose: 50 mg Tamsulosin HCl (Flomax) 0.[address] [facility] Last Admin: 12/13/18 21:22 Dose: 0.4 mg - Labs Labs: 12/14/18 05:40 12/14/18 05:40 PT 24.6 SECONDS (9.4-12.5) H 12/12/18 05:45 INR 2.18 12/12/18 05:45 APTT 40.1 Seconds (26.9-38.3) H 12/12/18 05:45 - Constitutional Appears: Well, Non-toxic, No Acute Distress - Head Exam Head Exam: ATRAUMATIC, NORMAL INSPECTION, NORMOCEPHALIC - Eye Exam Eye Exam: EOMI Pupil Exam: PERRL - Respiratory Exam Respiratory Exam: crackles present at bilateral bases - Cardiovascular Exam Cardiovascular Exam: REGULAR RHYTHM, RRR - GI/Abdominal Exam GI & Abdominal Exam: Soft, Normal Bowel Sounds. absent: Tenderness - Extremities Exam Extremities Exam: Pedal Edema (saldana of bilateral lower extremities). absent: Full ROM (unable to move bilateral lower extremities) - Neurological Exam Neurological Exam: Alert, Awake, CN II-XII Intact, Oriented x3 Neuro motor strength exam: Left Upper Extremity: 5, Right Upper Extremity: 5, Left Lower Extremity: 0, Right Lower Extremity: 0 - Skin Skin Exam: Dry, Intact Assessment and Plan - Assessment and Plan (Free Text) Assessment: 73 year old with past medical history of CAD s/p CABG, DM II, systolic CHF s/p AICD placement, dilated cardiomyopathy on home dobutamine, neuropathy, PVD, HLD, ileostomy for ischemic colitis, chronic hip and knee pain, CKD stage 4, chronic sacral ulcer presented with partial SBO which has now resolved. Patient also was found to have gram + bacteremia on 12/06 and PICC line was removed. Repeat blood cultures were negative. Patient was found to have UTI treated with levaquin. FOBT was found to be positive and is status post 1 U of PRBCs. Patient was recently found to have left subclavian vein thrombus and started on heparin drip. Patient has had episodes of nonsustained ventricular tachycardia with interrogation of pacemaker. Plan: Nonsustained Ventricular Tachycardia -As per Dr. Renee, EP, continue with metoprolol succinate 100 mg daily -Will consider amiodarone if patient has sustained episodes -AICD evaluated with no parameters changed at this time. Gram positive bacteremia -Blood culture 12/05: Staphylococcus epidermitis -Repeat blood culture on 12/06 was negative for 5 days and on 12/08 was negative for 5 days -Likely source is PICC line -PICC line was removed. New PICC line was inserted on 12/09 -Continue with daptomycin and aztreonam day 7 post PICC removal. She has completed full duration of antibiotics. Urinary tract infection -Urine culture: Klebsiella pneumoniae -UA: more than 200 protein, trace intact blood, moderate leukocyte esterase, tntc wbc, many bacteria -Continue with daptomycin and aztreonam day 7 post PICC removal. She has completed full duration of antibiotics. Left subclavian vein thrombosis -Visualized on upper extremity ultrasound -Continue eliquis 5 mg BID was started as per Dr. Hyde. Watch for worsening of renal status of creatinine clearance less than 25. If so, discontinue eliquis. At this time, creatinine clearance was 38 CKD stage IV -BUN/CR: 47/1.8 from creatinine of 2.1 yesterday. -Baseline creatinine is 1.7-2.0 -Hyponatremia at 129 from 129 -Bicarbonate value increased to 22 from 20. Will stop D5W with sodium bicarbonate drip at this time. -Aranesp dose given -Avoid nephrotoxins such as lisinopril, losartan, IV contrast Partial SBO-resolved -patient tolerating heart healthy diet -patient has adequate stool output -Continue with zofran PRN for nausea and protonix 40 Q12 Normocytic Anemia -Status post 1 U of PRBCs -FOBT was positive -Hemoglobin has been stable at 8.6 -Goal hemoglobin should be more than 8 due to myriad of cardiac problems Dilated cardiomyopathy with EF 46.6% -CXR 12/12 shows more pulmonary vascular congestion and bilateral lower extremity edema worsened. -Clinically improved today -As per Dr. Vidales, continue milrinone drip -Continue with aspirin, lipitor, digoxin, lasix, isosorbide nitrate, metoprolol succinate as per cardiology CAD s/p CABG -Continue with home aspirin, lipitor, metoprolol succinate, isosorbide nitrate Essential tremor -Continue with home primidone Diabetes mellitus type II -Random glucose: 213 -Continue with low SSI -Maintain euglycemia. Deconditioning -OOB order placed for patient to start ambulating for progress towards baseline GI prophylaxis: protonix 40 mg Q12 DVT prophylaxis: eliquis Disposition: PT initially recommended [facility]. Patient's wants patient to have home PT however. PT now recommends home with services for patient with PT 3x a week for 1 month. Patient plan discussed with attending. <Hermila Gusman - Last Filed: 12/14/18 12:42> Objective - Vital Signs/Intake and Output Vital Signs (last 24 hours): Temp Pulse Resp BP Pulse Ox 98.6 F 102 H 18 100/64 99 12/14/18 06:00 12/14/18 10:06 12/14/18 06:00 12/14/18 10:06 12/14/18 06:00 Intake and Output: 12/14/18 12/14/18 06:59 18:59 Intake Total 1888 100 Output Total 600 Balance 1288 100 - Medications Medications: Current Medications Acetaminophen (Tylenol 325mg Tab) 650 mg PO Q6H PRN PRN Reason: Pain, moderate (4-7) Last Admin: 12/13/18 06:42 Dose: 650 mg Apixaban (Eliquis) 5 mg PO BID [facility]; Protocol Last Admin: 12/14/18 09:58 Dose: 5 mg Artificial Tears (Refresh Opth Soln) 0.3 ml OU DAILY PRN PRN Reason: Dry eyes Last Admin: 12/14/18 10:10 Dose: 1 drop Atorvastatin Calcium (Lipitor) 40 mg PO DAILY [facility] Last Admin: 12/14/18 09:58 Dose: 40 mg Calcitriol (Rocaltrol) 0.25 mcg PO MWF [facility] Last Admin: 12/13/18 11:19 Dose: 0.25 mcg Calcium Carbonate (Oscal) 500 mg PO DAILY [facility] Last Admin: 12/14/18 09:58 Dose: 500 mg Dextrose (Dextrose 50% Inj) 0 ml IV STAT PRN; Protocol PRN Reason: Hypoglycemia Protocol Digoxin (Digoxin) 0.125 mg PO MWF [facility] Last Admin: 12/13/18 11:30 Dose: 0.125 mg Furosemide (Lasix) 40 mg IVP DAILY [facility] Last Admin: 12/14/18 09:56 Dose: 40 mg Hydromorphone HCl (Dilaudid) 0.5 mg IVP Q8H PRN PRN Reason: Pain, severe (8-10) Last Admin: 12/14/18 10:14 Dose: 0.5 mg Dextrose (Dextrose 5% In Water 1000 Ml) 1,000 mls @ 0 mls/hr IV .Q0M PRN; Protocol PRN Reason: Hypoglycemia Protocol Aztreonam (Azactam 1 Gm) 100 mls @ 100 mls/hr IVPB Q12 [facility]; Protocol Stop: 12/15/18 22:01 Last Admin: 12/14/18 09:41 Dose: 100 mls/hr Daptomycin 400 mg/ Sodium (Chloride) 100 mls @ 200 mls/hr IV Q48H [facility] Stop: 12/16/18 10:01 Last Admin: 12/13/18 13:48 Dose: 200 mls/hr Milrinone Lactate/Dextrose (Primacor 20mg/100ml D5w) 100 mls @ 3.984 mls/hr IV .Q24H PRN; Protocol PRN Reason: TITRATE PER MD ORDER Last Admin: 12/14/18 12:21 Dose: 0.2 mcg/kg/min, 3.984 mls/hr Insulin Human Regular (Humulin R Low) 0 units SC ACHS [facility]; Protocol Last Admin: 12/14/18 12:20 Dose: 2 unit Isosorbide Mononitrate (Imdur) 60 mg PO DAILY [facility] Last Admin: 12/14/18 10:07 Dose: 60 mg Levalbuterol HCl (Xopenex) 0.63 mg IH [id number] PRN PRN Reason: Shortness of Breath Last Admin: 12/14/18 10:17 Dose: 0.63 mg Magnesium Oxide (Mag-Ox) 400 mg PO BID [facility] Last Admin: 02/16/19 09:58 Dose: 400 mg Metoprolol Succinate (Toprol Xl) 50 mg PO DAILY [facility] Last Admin: 12/14/18 10:06 Dose: 50 mg Mupirocin (Bactroban Ointment) 10 gm TOP BID [facility] Last Admin: 12/14/18 10:48 Dose: Not Given Ondansetron HCl (Zofran Inj) 4 mg IVP Q4 PRN PRN Reason: Nausea/Vomiting Pantoprazole Sodium (Protonix Inj) 40 mg IVP Q12 [facility] Last Admin: 12/14/18 09:55 Dose: 40 mg Primidone (Mysoline) 50 mg PO HS [facility] Last Admin: 12/13/18 21:22 Dose: 50 mg Tamsulosin HCl (Flomax) 0.[address] [facility] Last Admin: 12/13/18 21:22 Dose: 0.4 mg - Labs Labs: 12/14/18 05:40 12/14/18 05:40 PT 24.6 SECONDS (9.4-12.5) H 12/12/18 05:45 INR 2.18 12/12/18 05:45 APTT 40.1 Seconds (26.9-38.3) H 12/12/18 05:45 Attending/Attestation - Attestation I have personally seen and examined this patient.: Yes I have fully participated in the care of the patient.: Yes I have reviewed all pertinent clinical information, including history, physical exam and plan: Yes Notes (Text): 12/14/18 12:40 73 year old female with past medical history of CAD s/p CABG, systolic CHF s/p AICD, dilated cardiomyopathy on home dobutamine, history of ischemic colitis s/p ileostomy, and CKD who presented initally with abdominal pain found to have partial SBO, now resolved. She was also found to have staph epidermidis bacteremia for which she is on antibiotics, almost completed. Repeat cultures are negative. Picc line was removed and replaced. ID is following. Continue with antibiotics for klebsiella UTI. She is on anticoagulation for left subclavian vein thrombus. Hematology is following. She had episode of NSVT earlier this week. Dobutamine drip was discontinued. EPS evaluation was appreciated. AICD was interrogated. Patient is on iv lasix and milrinone drip for CHF. Cardiology is following. PT follow up requested for discharge planning. Hermila Gusman MD Hospitalist.
--- NOTE | 2018-12-14 12:11 | CP.PCM.PN ---
Subjective - Date & Time of Evaluation Date of Evaluation: 12/14/18 Time of Evaluation: 09:50 - Subjective Subjective: No fevers, not in distress, no pain in the right arm. Objective - Vital Signs/Intake and Output Vital Signs (last 24 hours): Temp Pulse Resp BP Pulse Ox 98.1 F 86 18 101/49 L 98 12/13/18 12:00 12/13/18 14:00 12/13/18 12:00 12/13/18 12:00 12/13/18 06:00 Intake and Output: 12/13/18 12/13/18 06:59 18:59 Intake Total 1588 100 Output Total 900 Balance 688 100 - Medications Medications: Current Medications Acetaminophen (Tylenol 325mg Tab) 650 mg PO Q6H PRN PRN Reason: Pain, moderate (4-7) Last Admin: 12/13/18 06:42 Dose: 650 mg Apixaban (Eliquis) 5 mg PO BID [facility]; Protocol Last Admin: 12/13/18 11:19 Dose: 5 mg Artificial Tears (Refresh Opth Soln) 0.3 ml OU DAILY PRN PRN Reason: Dry eyes Last Admin: 12/12/18 13:10 Dose: 1 drop Atorvastatin Calcium (Lipitor) 40 mg PO DAILY [facility] Last Admin: 12/13/18 11:30 Dose: 40 mg Calcitriol (Rocaltrol) 0.25 mcg PO [facility] Last Admin: 12/13/18 11:19 Dose: 0.25 mcg Calcium Carbonate (Oscal) 500 mg PO DAILY [facility] Last Admin: 12/13/18 11:24 Dose: 500 mg Dextrose (Dextrose 50% Inj) 0 ml IV STAT PRN; Protocol PRN Reason: Hypoglycemia Protocol Digoxin (Digoxin) 0.125 mg PO F [facility] Last Admin: 12/13/18 11:30 Dose: 0.125 mg Furosemide (Lasix) 40 mg IVP DAILY [facility] Last Admin: 12/13/18 11:21 Dose: 40 mg Hydromorphone HCl (Dilaudid) 0.5 mg IVP Q8H PRN PRN Reason: Pain, severe (8-10) Last Admin: 12/13/18 15:33 Dose: 0.5 mg Dextrose (Dextrose 5% In Water 1000 Ml) 1,000 mls @ 0 mls/hr IV .Q0M PRN; Protocol PRN Reason: Hypoglycemia Protocol Aztreonam (Azactam 1 Gm) 100 mls @ 100 mls/hr IVPB Q12 [facility]; Protocol Stop: 12/15/18 22:01 Last Admin: 12/13/18 11:37 Dose: 100 mls/hr Daptomycin 400 mg/ Sodium (Chloride) 100 mls @ 200 mls/hr IV Q48H [facility] Stop: 12/16/18 10:01 Last Admin: 12/13/18 13:48 Dose: 200 mls/hr Sodium Bicarbonate 50 meq/ (Dextrose/Sodium Chloride) 1,050 mls @ 100 mls/hr IV .[id number] [facility] Last Admin: 12/13/18 11:38 Dose: 100 mls/hr Milrinone Lactate/Dextrose (Primacor 20mg/100ml D5w) 100 mls @ 3.984 mls/hr IV .Q24H PRN; Protocol PRN Reason: TITRATE PER MD ORDER Last Admin: 12/13/18 11:31 Dose: 0.2 mcg/kg/min, 3.984 mls/hr Insulin Human Regular (Humulin R Low) 0 units SC ACHS [facility]; Protocol Last Admin: 12/13/18 13:54 Dose: Not Given Isosorbide Mononitrate (Imdur) 60 mg PO DAILY [facility] Magnesium Oxide (Mag-Ox) 400 mg PO BID [facility] Last Admin: 12/13/18 11:19 Dose: 400 mg Metoprolol Succinate (Toprol Xl) 50 mg PO DAILY [facility] Mupirocin (Bactroban Ointment) 10 gm TOP BID [facility] Last Admin: 12/13/18 11:34 Dose: Not Given Ondansetron HCl (Zofran Inj) 4 mg IVP Q4 PRN PRN Reason: Nausea/Vomiting Pantoprazole Sodium (Protonix Inj) 40 mg IVP Q12 [facility] Last Admin: 12/13/18 11:50 Dose: 40 mg Primidone (Mysoline) 50 mg PO HS [facility] Last Admin: 12/12/18 21:33 Dose: 50 mg Tamsulosin HCl (Flomax) 0.4 mg PO HS [facility] Last Admin: 12/12/18 21:33 Dose: 0.4 mg - Labs Labs: 12/13/18 08:50 12/13/18 08:50 PT 24.6 SECONDS (9.4-12.5) H 12/12/18 05:45 INR 2.18 12/12/18 05:45 APTT 40.1 Seconds (26.9-38.3) H 12/12/18 05:45 - Constitutional Appears: Chronically Ill - Head Exam Head Exam: NORMAL INSPECTION - Respiratory Exam Respiratory Exam: Decreased Breath Sounds - Cardiovascular Exam Cardiovascular Exam: +S1, +S2 - GI/Abdominal Exam GI & Abdominal Exam: Soft. absent: Tenderness Assessment and Plan - Assessment and Plan (Free Text) Plan: Assessment Staph epidermidis bacteremia, R/O related to PICC line S/P removal of PICC line 12/08/2018 R/O UTI with Klebsiella history of hematuria and urinary retention R/O UTI with E. faecalis, S/P treatm ent with antibiotics S/P left leg cellulitis as well as right sided community-acquired pneumonia S/P left foot 2nd digit skin and skin structure infection CAD S/P CABG abdominal aortic aneurysm S/P repair S/P cholecystectomy S/P pacemaker placement DM S/P left toe amputation Plan continue Daptomycin (Day 7 from time of PICC removal) and azactam; repeat blood cx are negative; now that it is removed, need 5-7 days of IV antibiotics will continue to monitor clinically while the patient is in the hospital discussed with medical team
[2018-12-14] MEDS: Milrinone 20mg/100ml D5W 100 ML IV PRN (12:21)
--- NOTE | 2018-12-14 12:51 | PN ---
DATE: 12/14/2018 CARDIOLOGY FOLLOWUP SUBJECTIVE: The patient is complaining of back pain. Her dyspnea is stable. PHYSICAL EXAMINATION: VITAL SIGNS: Blood pressure 145/74, and heart rates in the 90s. NECK: Negative JVD. LUNGS: Crackles at the bases. HEART: Reveal S1 and S2. EXTREMITIES: Without edema. LABORATORY DATA: BUN and creatinine 47 and 1.8. Hemoglobin is 8.6. IMPRESSION: 1. End-stage dilated cardiomyopathy. 2. Coronary artery disease. 3. Anemia. 4. Renal insufficiency. 5. Diffuse back pain. Given these findings, the patient is in mild CHF. She is currently on IV antibiotics for questionable reasons. We will continue her IV Primacor. The patient is currently on pain medications Dilaudid for pain. The patient's prognosis is poor. Vinnie Vidales MD
--- NOTE | 2018-12-14 19:26 | CP.PCM.PN ---
Subjective - Date & Time of Evaluation Date of Evaluation: 12/13/18 Time of Evaluation: 18:00 - Subjective Subjective: No complaints, less swelling in arm Objective - Vital Signs/Intake and Output Vital Signs (last 24 hours): Temp Pulse Resp BP Pulse Ox 98.5 F 96 H 18 125/81 96 12/14/18 18:00 12/14/18 18:00 12/14/18 18:00 12/14/18 18:00 12/14/18 09:00 Intake and Output: 12/14/18 12/15/18 18:59 06:59 Intake Total 1248 Output Total 1500 Balance -252 - Medications Medications: Current Medications Acetaminophen (Tylenol 325mg Tab) 650 mg PO Q6H PRN PRN Reason: Pain, moderate (4-7) Last Admin: 12/13/18 06:42 Dose: 650 mg Apixaban (Eliquis) 5 mg PO BID [facility]; Protocol Last Admin: 12/14/18 17:41 Dose: 5 mg Artificial Tears (Refresh Opth Soln) 0.3 ml OU DAILY PRN PRN Reason: Dry eyes Last Admin: 12/14/18 10:10 Dose: 1 drop Atorvastatin Calcium (Lipitor) 40 mg PO DAILY [facility] Last Admin: 12/14/18 09:58 Dose: 40 mg Calcitriol (Rocaltrol) 0.25 mcg PO [facility] Last Admin: 12/13/18 11:19 Dose: 0.25 mcg Calcium Carbonate (Oscal) 500 mg PO DAILY [facility] Last Admin: 12/14/18 09:58 Dose: 500 mg Dextrose (Dextrose 50% Inj) 0 ml IV STAT PRN; Protocol PRN Reason: Hypoglycemia Protocol Digoxin (Digoxin) 0.125 mg PO [facility] Last Admin: 12/13/18 11:30 Dose: 0.125 mg Furosemide (Lasix) 40 mg IVP DAILY [facility] Last Admin: 12/14/18 09:56 Dose: 40 mg Hydromorphone HCl (Dilaudid) 0.5 mg IVP Q8H PRN PRN Reason: Pain, severe (8-10) Last Admin: 12/14/18 10:14 Dose: 0.5 mg Dextrose (Dextrose 5% In Water 1000 Ml) 1,000 mls @ 0 mls/hr IV .Q0M [facility]N; Protocol PRN Reason: Hypoglycemia Protocol Aztreonam (Azactam 1 Gm) 100 mls @ 100 mls/hr IVPB Q12 [facility]; Protocol Stop: 12/15/18 22:01 Last Admin: 12/14/18 09:41 Dose: 100 mls/hr Daptomycin 400 mg/ Sodium (Chloride) 100 mls @ 200 mls/hr IV Q48H [facility] Stop: 12/16/18 10:01 Last Admin: 12/13/18 13:48 Dose: 200 mls/hr Milrinone Lactate/Dextrose (Primacor 20mg/100ml D5w) 100 mls @ 3.984 mls/hr IV .Q24H [facility]; Protocol PRN Reason: TITRATE PER MD ORDER Last Admin: 12/14/18 12:21 Dose: 0.2 mcg/kg/min, 3.984 mls/hr Insulin Human Regular (Humulin R Low) 0 units SC ACHS [facility]; Protocol Last Admin: 12/14/18 17:41 Dose: 2 unit Isosorbide Mononitrate (Imdur) 60 mg PO DAILY [facility] Last Admin: 12/14/18 10:07 Dose: 60 mg Levalbuterol HCl (Xopenex) 0.63 mg IH [id number] PRN PRN Reason: Shortness of Breath Last Admin: 12/14/18 10:17 Dose: 0.63 mg Magnesium Oxide (Mag-Ox) 400 mg PO BID [facility] Last Admin: 12/14/18 09:58 Dose: 400 mg Metoprolol Succinate (Toprol Xl) 50 mg PO DAILY [facility] Last Admin: 12/14/18 10:06 Dose: 50 mg Mupirocin (Bactroban Ointment) 10 gm TOP BID [facility] Last Admin: 12/14/18 15:30 Dose: 1 applic Ondansetron HCl (Zofran Inj) 4 mg IVP Q4 PRN PRN Reason: Nausea/Vomiting Pantoprazole Sodium (Protonix Inj) 40 mg IVP Q12 [facility] Last Admin: 12/14/18 09:55 Dose: 40 mg Primidone (Mysoline) 50 mg PO HS [facility] Last Admin: 12/13/18 21:22 Dose: 50 mg Tamsulosin HCl (Flomax) 0.4 mg PO HS [facility] Last Admin: 12/13/18 21:22 Dose: 0.4 mg - Labs Labs: 12/14/18 05:40 12/14/18 05:40 PT 24.6 SECONDS (9.4-12.5) H 12/12/18 05:45 INR 2.18 12/12/18 05:45 APTT 40.1 Seconds (26.9-38.3) H 12/12/18 05:45 - Head Exam Head Exam: ATRAUMATIC - Eye Exam Eye Exam: Normal appearance - ENT Exam ENT Exam: Mucous Membranes Dry - Respiratory Exam Respiratory Exam: NORMAL BREATHING PATTERN - Cardiovascular Exam Cardiovascular Exam: +S1, +S2 - GI/Abdominal Exam GI & Abdominal Exam: Normal Bowel Sounds Assessment and Plan (1) DVT (deep venous thrombosis) Assessment & Plan: suspect provoked from immobility on Eliquis 5mg BID - reduced renal function noted would continue with Eliquis for now as CrCl ~ 30; if worsens to < 25 chronically then agree with coumadin minimum duration of 3 months Status: Acute (2) Anemia Assessment & Plan: hypoproliferative erythroid response anemia of CKD - s/p Aranesp FOBT positive; monitor for acute drop in H/H while on anticoagulation no evidence of iron/b12/folate deficiency Status: Acute (3) Coagulopathy Assessment & Plan: anticoagulation Status: Acute
--- NOTE | 2018-12-14 19:27 | CP.PCM.PN ---
Subjective - Date & Time of Evaluation Date of Evaluation: 12/14/18 Time of Evaluation: 19:00 - Subjective Subjective: No complaints. Objective - Vital Signs/Intake and Output Vital Signs (last 24 hours): Temp Pulse Resp BP Pulse Ox 98.5 F 96 H 18 125/81 96 12/14/18 18:00 12/14/18 18:00 12/14/18 18:00 12/14/18 18:00 12/14/18 09:00 Intake and Output: 12/14/18 12/15/18 18:59 06:59 Intake Total 1248 Output Total 1500 Balance -252 - Medications Medications: Current Medications Acetaminophen (Tylenol 325mg Tab) 650 mg PO Q6H PRN PRN Reason: Pain, moderate (4-7) Last Admin: 12/13/18 06:42 Dose: 650 mg Apixaban (Eliquis) 5 mg PO BID [facility]; Protocol Last Admin: 12/14/18 17:41 Dose: 5 mg Artificial Tears (Refresh Opth Soln) 0.3 ml OU DAILY PRN PRN Reason: Dry eyes Last Admin: 12/14/18 10:10 Dose: 1 drop Atorvastatin Calcium (Lipitor) 40 mg PO DAILY [facility] Last Admin: 12/14/18 09:58 Dose: 40 mg Calcitriol (Rocaltrol) 0.25 mcg PO [facility] [place] Last Admin: 12/13/18 11:19 Dose: 0.25 mcg Calcium Carbonate (Oscal) 500 mg PO DAILY [facility] Last Admin: 12/14/18 09:58 Dose: 500 mg Dextrose (Dextrose 50% Inj) 0 ml IV STAT PRN; Protocol PRN Reason: Hypoglycemia Protocol Digoxin (Digoxin) 0.125 mg PO [facility] [place] Last Admin: 12/13/18 11:30 Dose: 0.125 mg Furosemide (Lasix) 40 mg IVP DAILY [facility] Last Admin: 12/14/18 09:56 Dose: 40 mg Hydromorphone HCl (Dilaudid) 0.5 mg IVP Q8H PRN PRN Reason: Pain, severe (8-10) Last Admin: 12/14/18 10:14 Dose: 0.5 mg Dextrose (Dextrose 5% In Water 1000 Ml) 1,000 mls @ 0 mls/hr IV .Q0M PRN; Protocol PRN Reason: Hypoglycemia Protocol Aztreonam (Azactam 1 Gm) 100 mls @ 100 mls/hr IVPB Q12 [facility]; Protocol Stop: 12/15/18 22:01 Last Admin: 12/14/18 09:41 Dose: 100 mls/hr Daptomycin 400 mg/ Sodium (Chloride) 100 mls @ 200 mls/hr IV Q48H [facility] Stop: 12/16/18 10:01 Last Admin: 12/13/18 13:48 Dose: 200 mls/hr Milrinone Lactate/Dextrose (Primacor 20mg/100ml D5w) 100 mls @ 3.984 mls/hr IV .Q24H PRN; Protocol PRN Reason: TITRATE PER MD ORDER Last Admin: 12/14/18 12:21 Dose: 0.2 mcg/kg/min, 3.984 mls/hr Insulin Human Regular (Humulin R Low) 0 units SC ACHS [facility]; Protocol Last Admin: 12/14/18 17:41 Dose: 2 unit Isosorbide Mononitrate (Imdur) 60 mg PO DAILY [facility] Last Admin: 12/14/18 10:07 Dose: 60 mg Levalbuterol HCl (Xopenex) 0.63 mg IH [id number] PRN PRN Reason: Shortness of Breath Last Admin: 12/14/18 10:17 Dose: 0.63 mg Magnesium Oxide (Mag-Ox) 400 mg PO BID [facility] [place] Last Admin: 12/14/18 09:58 Dose: 400 mg Metoprolol Succinate (Toprol Xl) 50 mg PO DAILY [facility] Last Admin: 12/14/18 10:06 Dose: 50 mg Mupirocin (Bactroban Ointment) 10 gm TOP BID [facility] [place] Last Admin: 12/14/18 15:30 Dose: 1 applic Ondansetron HCl (Zofran Inj) 4 mg IVP Q4 PRN PRN Reason: Nausea/Vomiting Pantoprazole Sodium (Protonix Inj) 40 mg IVP Q12 [facility] [place] Last Admin: 12/14/18 09:55 Dose: 40 mg Primidone (Mysoline) 50 mg PO HS [facility] [place] Last Admin: 12/13/18 21:22 Dose: 50 mg Tamsulosin HCl (Flomax) 0.4 mg PO HS [facility] [place] Last Admin: 12/13/18 21:22 Dose: 0.4 mg - Labs Labs: 12/14/18 05:40 12/14/18 05:40 PT 24.6 SECONDS (9.4-12.5) H 12/12/18 05:45 INR 2.18 12/12/18 05:45 APTT 40.1 Seconds (26.9-38.3) H 12/12/18 05:45 - Head Exam Head Exam: ATRAUMATIC - Eye Exam Eye Exam: Normal appearance - ENT Exam ENT Exam: Mucous Membranes Dry - Respiratory Exam Respiratory Exam: NORMAL BREATHING PATTERN - Cardiovascular Exam Cardiovascular Exam: +S1, +S2 - GI/Abdominal Exam GI & Abdominal Exam: Normal Bowel Sounds Assessment and Plan (1) DVT (deep venous thrombosis) Assessment & Plan: suspect provoked from immobility on Eliquis 5mg BID - reduced renal function noted would continue with Eliquis for now as CrCl ~ 30; if worsens to < 25 chronically then agree with coumadin minimum duration of 3 months Status: Acute (2) Anemia Assessment & Plan: hypoproliferative erythroid response anemia of CKD - s/p Aranesp FOBT positive; monitor for acute drop in H/H while on anticoagulation no evidence of iron/b12/folate deficiency Status: Acute (3) Coagulopathy Assessment & Plan: anticoagulation Status: Acute
[2018-12-15] MEDS: HYDROmorphone 0.5 mg/0.5 ml ISec IVP PRN (05:05)
[2018-12-15 07:01] LABS: BASO # 0.01 K/mm3 (0.0-2.0); BASO % 0.1 % (0.0-3.0); EOS # 0.3 (0.0-0.7); EOS % 2.5 % (1.5-5.0); HEMOGLOBIN 8.7 g/dL (12.0-16.0); LYMPH # 0.9 (1.2-3.4); LYMPH % 7.6 % (22.0-35.0); MEAN CELL VOLUME 94.9 fl (80.0-105.0); MEAN CORPUSCULAR HEMOGLOBIN 29.8 pg (25.0-35.0); MEAN CORPUSCULAR HGB CONC 31.4 g/dl (31.0-37.0); MEAN PLATELET VOLUME 8.8 fl (7.0-11.0); MONO # 0.8 (0.1-0.6); MONO % 6.8 % (1.0-6.0); RBC 2.92 10^6/uL (3.5-6.1); RED CELL DISTRIBUTION WIDTH 18.2 % (11.5-14.5); WHITE BLOOD COUNT 11.8 10^3/uL (4.5-11.0)
[2018-12-15 07:10] LABS: ALB/GLOB RATIO 0.7 (1.1-1.8); ALBUMIN 2.2 g/dL (3.0-4.8); CALCIUM 7.6 mg/dL (8.4-10.5)
[2018-12-15] MEDS: Insulin Reg-LOW-Coverage SC SCH ×5 (08:21→21:46)
[2018-12-15] MEDS: Aztreonam 1 Gm in NS 100mL 100 ML IVPB SCH ×2 (10:03→21:46)
[2018-12-15] MEDS: Lubricant Eye Drops UD OU PRN (10:03)
[2018-12-15] MEDS: Magnesium Oxide 400 mg Tab UD PO SCH ×2 (10:04→17:53)
[2018-12-15] MEDS: Mupirocin 2% Ointment 15 GM TUBE TOP SCH ×2 (10:05→18:17)
[2018-12-15] MEDS: Metoprolol Succinate 50 mg XL Tab PO SCH (10:08)
--- NOTE | 2018-12-15 11:25 | CP.PCM.PN ---
Subjective - Date & Time of Evaluation Date of Evaluation: 12/15/18 Time of Evaluation: 10:40 - Subjective Subjective: Continues to have chronic back pain, no fevers. Objective - Vital Signs/Intake and Output Vital Signs (last 24 hours): Temp Pulse Resp BP Pulse Ox 98.6 F 102 H 18 100/64 99 12/14/18 06:00 12/14/18 10:06 12/14/18 06:00 12/14/18 10:06 12/14/18 06:00 Intake and Output: 12/14/18 12/14/18 06:59 18:59 Intake Total 1888 Output Total 600 Balance 1288 - Medications Medications: Current Medications Acetaminophen (Tylenol 325mg Tab) 650 mg PO Q6H PRN PRN Reason: Pain, moderate (4-7) Last Admin: 12/13/18 06:42 Dose: 650 mg Apixaban (Eliquis) 5 mg PO BID [facility]; Protocol Last Admin: 12/14/18 09:58 Dose: 5 mg Artificial Tears (Refresh Opth Soln) 0.3 ml OU DAILY PRN PRN Reason: Dry eyes Last Admin: 12/14/18 10:10 Dose: 1 drop Atorvastatin Calcium (Lipitor) 40 mg PO DAILY [facility] Last Admin: 12/14/18 09:58 Dose: 40 mg Calcitriol (Rocaltrol) 0.25 mcg PO [facility] [place] Last Admin: 12/13/18 11:19 Dose: 0.25 mcg Calcium Carbonate (Oscal) 500 mg PO DAILY [facility] Last Admin: 12/14/18 09:58 Dose: 500 mg Dextrose (Dextrose 50% Inj) 0 ml IV STAT PRN; Protocol PRN Reason: Hypoglycemia Protocol Digoxin (Digoxin) 0.125 mg PO F [facility] Last Admin: 12/13/18 11:30 Dose: 0.125 mg Furosemide (Lasix) 40 mg IVP DAILY [facility] Last Admin: 12/14/18 09:56 Dose: 40 mg Hydromorphone HCl (Dilaudid) 0.5 mg IVP Q8H PRN PRN Reason: Pain, severe (8-10) Last Admin: 12/14/18 10:14 Dose: 0.5 mg Dextrose (Dextrose 5% In Water 1000 Ml) 1,000 mls @ 0 mls/hr IV .Q0M PRN; Prot ocol PRN Reason: Hypoglycemia Protocol Aztreonam (Azactam 1 Gm) 100 mls @ 100 mls/hr IVPB Q12 [facility]; Protocol Stop: 12/15/18 22:01 Last Admin: 12/14/18 09:41 Dose: 100 mls/hr Daptomycin 400 mg/ Sodium (Chloride) 100 mls @ 200 mls/hr IV Q48H [facility] Stop: 12/16/18 10:01 Last Admin: 12/13/18 13:48 Dose: 200 mls/hr Sodium Bicarbonate 50 meq/ (Dextrose/Sodium Chloride) 1,050 mls @ 100 mls/hr IV .[id number] [facility] Last Admin: 12/14/18 01:47 Dose: 100 mls/hr Milrinone Lactate/Dextrose (Primacor 20mg/100ml D5w) 100 mls @ 3.984 mls/hr IV .Q24H PRN; Protocol PRN Reason: TITRATE PER MD ORDER Last Admin: 12/13/18 11:31 Dose: 0.2 mcg/kg/min, 3.984 mls/hr Insulin Human Regular (Humulin R Low) 0 units SC ACHS [facility]; Protocol Last Admin: 12/14/18 08:02 Dose: 2 unit Isosorbide Mononitrate (Imdur) 60 mg PO DAILY [facility] Last Admin: 12/14/18 10:07 Dose: 60 mg Levalbuterol HCl (Xopenex) 0.63 mg IH [id number] PRN PRN Reason: Shortness of Breath Last Admin: 12/14/18 10:17 Dose: 0.63 mg Magnesium Oxide (Mag-Ox) 400 mg PO BID [facility] Last Admin: 12/14/18 09:58 Dose: 400 mg Metoprolol Succinate (Toprol Xl) 50 mg PO DAILY [facility] Last Admin: 12/14/18 10:06 Dose: 50 mg Mupirocin (Bactroban Ointment) 10 gm TOP BID [facility] Last Admin: 12/14/18 10:48 Dose: Not Given Ondansetron HCl (Zofran Inj) 4 mg IVP Q4 PRN PRN Reason: Nausea/Vomiting Pantoprazole Sodium (Protonix Inj) 40 mg IVP Q12 [facility] Last Admin: 12/14/18 09:55 Dose: 40 mg Primidone (Mysoline) 50 mg PO HS [facility] Last Admin: 12/13/18 21:22 Dose: 50 mg Tamsulosin HCl (Flomax) 0.4 mg PO [facility] Last Admin: 12/13/18 21:22 Dose: 0.4 mg - Labs Labs: 12/14/18 05:40 12/14/18 05:40 PT 24.6 SECONDS (9.4-12.5) H 12/12/18 05:45 INR 2.18 12/12/18 05:45 APTT 40.1 Seconds (26.9-38.3) H 12/12/18 05:45 - Constitutional Appears: Chronically Ill - Head Exam Head Exam: NORMAL INSPECTION - Respiratory Exam Respiratory Exam: Decreased Breath Sounds - Cardiovascular Exam Cardiovascular Exam: +S1, +S2 - GI/Abdominal Exam GI & Abdominal Exam: Soft. absent: Tenderness Assessment and Plan - Assessment and Plan (Free Text) Plan: Assessment Staph epidermidis bacteremia, R/O related to PICC line S/P removal of PICC line 12/08/2018 R/O UTI with Klebsiella history of hematuria and urinary retention R/O UTI with E. faecalis, S/P treatment with antibiotics S/P left leg cellulitis as well as right sided community-acquired pneumonia S/P left foot 2nd digit skin and skin structure infection CAD S/P CABG abdominal aortic aneurysm S/P repair S/P cholecystectomy S/P pacemaker placement DM S/P left toe amputation Plan on Daptomycin (Day 7 from time of PICC removal and we can d/c antibiotics) and azactam; repeat blood cx are negative; now that it is removed, needed 5-7 days of IV antibiotics will continue to monitor clinically while the patient is in the hospital discussed with medical team previously
--- NOTE | 2018-12-15 11:49 | CP.PCM.PN ---
Subjective - Date & Time of Evaluation Date of Evaluation: 12/15/18 Time of Evaluation: 11:49 - Subjective Subjective: Podiatry consult note: Dr. Vinnie Cortés 73F patient seen and evaluated this morning for R heel ulceration; stable. Patient is resting comfortably and in NAD. She denies any pain to ulceration site. No acute events overnight. Denies nausea/vomiting/fever/shortness of breath/chest pain. Objective - Vital Signs/Intake and Output Vital Signs (last 24 hours): Temp Pulse Resp BP Pulse Ox 97.6 F 95 H 20 132/56 L 97 12/15/18 06:00 12/15/18 10:08 12/15/18 06:00 12/15/18 10:08 12/15/18 06:00 Intake and Output: 12/15/18 12/15/18 06:59 18:59 Intake Total 708 Output Total 600 Balance 108 - Medications Medications: Current Medications Acetaminophen (Tylenol 325mg Tab) 650 mg PO Q6H PRN PRN Reason: Pain, moderate (4-7) Last Admin: 12/15/18 08:26 Dose: 650 mg Apixaban (Eliquis) 5 mg PO BID [facility]; Protocol Last Admin: 12/15/18 10:04 Dose: 5 mg Artificial Tears (Refresh Opth Soln) 0.3 ml OU DAILY PRN PRN Reason: Dry eyes Last Admin: 12/15/18 10:03 Dose: 1 drop Atorvastatin Calcium (Lipitor) 40 mg PO DAILY [facility] Last Admin: 12/15/18 10:04 Dose: 40 mg Calcitriol (Rocaltrol) 0.25 mcg PO F [facility] Last Admin: 12/13/18 11:19 Dose: 0.25 mcg Calcium Carbonate (Oscal) 500 mg PO DAILY [facility] Last Admin: 12/15/18 10:51 Dose: 500 mg Dextrose (Dextrose 50% Inj) 0 ml IV STAT PRN; Protocol PRN Reason: Hypoglycemia Protocol Digoxin (Digoxin) 0.125 mg PO F [facility] Last Admin: 12/13/18 11:30 Dose: 0.125 mg Furosemide (Lasix) 40 mg IVP BID [facility] Dextrose (Dextrose 5% In Water 1000 Ml) 1,000 mls @ 0 mls/hr IV .Q0M PRN; Protocol PRN Reason: Hypoglycemia Protocol Aztreonam (Azactam 1 Gm) 100 mls @ 100 mls/hr IVPB Q12 [facility]; Protocol Stop: 12/15/18 22:01 Last Admin: 12/15/18 10:03 Dose: 100 mls/hr Daptomycin 400 mg/ Sodium (Chloride) 100 mls @ 200 mls/hr IV Q48H [facility] Stop: 12/16/18 10:01 Last Admin: 12/15/18 10:42 Dose: 200 mls/hr Milrinone Lactate/Dextrose (Primacor 20mg/100ml D5w) 100 mls @ 3.984 mls/hr IV .Q24H PRN; Protocol PRN Reason: TITRATE PER MD ORDER Last Admin: 12/14/18 12:21 Dose: 0.2 mcg/kg/min, 3.984 mls/hr Insulin Human Regular (Humulin R Low) 0 units SC ACHS [facility]; Protocol Last Admin: 12/15/18 08:21 Dose: 2 unit Isosorbide Mononitrate (Imdur) 60 mg PO DAILY [facility] Last Admin: 12/15/18 10:04 Dose: 60 mg Levalbuterol HCl (Xopenex) 0.63 mg IH [id number] PRN PRN Reason: Shortness of Breath Last Admin: 12/14/18 10:17 Dose: 0.63 mg Magnesium Oxide (Mag-Ox) 400 mg PO BID [facility] Last Admin: 12/15/18 10:04 Dose: 400 mg Metoprolol Succinate (Toprol Xl) 50 mg PO DAILY [facility] Last Admin: 12/15/18 10:08 Dose: 50 mg Mupirocin (Bactroban Ointment) 10 gm TOP BID [facility] Last Admin: 12/15/18 10:05 Dose: 1 applic Ondansetron HCl (Zofran Inj) 4 mg IVP Q4 PRN PRN Reason: Nausea/Vomiting Pantoprazole Sodium (Protonix Inj) 40 mg IVP Q12 [facility] Last Admin: 12/15/18 10:04 Dose: 40 mg Primidone (Mysoline) 50 mg PO HS [facility] Last Admin: 12/14/18 21:22 Dose: 50 mg Spironolactone (Aldactone) 12.5 mg PO DAILY [facility] Last Admin: 12/15/18 10:42 Dose: 12.5 mg Tamsulosin HCl (Flomax) 0.4 mg PO HS [facility] Last Admin: 12/14/18 21:22 Dose: 0.4 mg Tramadol HCl (Ultram) 50 mg PO Q8H PRN PRN Reason: Pain, moderate (4-7) Last Admin: 12/15/18 10:43 Dose: 50 mg - Labs Labs: 12/15/18 06:30 12/15/18 06:30 PT 24.6 SECONDS (9.4-12.5) H 12/12/18 05:45 INR 2.18 12/12/18 05:45 APTT 40.1 Seconds (26.9-38.3) H 12/12/18 05:45 - Constitutional Appears: Non-toxic, No Acute Distress - Extremities Exam Additional comments: Bilateral Lower Extremity exam Vasc: DP and PT 2/4 bilaterally, CFT less than 3 seconds to the remaining digits, no edema noted, TG within normal limits Ortho: no tenderness upon palpation to the ulceration site, minimal pain with range of motion, muscular strength 5/5 Neuro: gross and protective sensation intact b/l Derm: R decubitus tissue injury noted to the right heel, significantly improving, wound is superficial with no surrounding erythema at this time, no probe to bone, no malodor, no signs of infection, no drainage, no malodor - Neurological Exam Neurological Exam: Alert, Awake, Oriented x3 - Psychiatric Exam Psychiatric exam: Normal Affect, Normal Mood Assessment and Plan - Assessment and Plan (Free Text) Assessment: 73F patient seen and evaluated at bedside for R heel ulceration; stable Plan: Patient seen and evaluated Plan discussed with Dr. Cortés Afebrile, WBC 11.8 likely secondary to UTI vs. bacteremia Patient wound stable at this time from Podiatric standpoint, non-infected Patient right heel wound cleansed with saline and dressed with Optifoam Lotion to be applied to bilateral feet and legs for xerosis daily Will continue to follow the patient
--- NOTE | 2018-12-15 12:07 | CP.PCM.PN ---
<Martin Ochoa - Last Filed: 12/15/18 12:01> Subjective - Date & Time of Evaluation Date of Evaluation: 12/15/18 Time of Evaluation: 12:24 - Subjective Subjective: Martin Ochoa, PGY-1, Internal Medicine Progress Note for Dr. Gusman Patient seen and evaluated at bedside. Patient had no acute overnight events. Patient reports generalized weakness, left calf swelling, and continuation of right hip and left shoulder pain. Patient was out of bed yesterday but needed the help of 3 people. Patient denied headache, fever, chest pain, shortness of breath, nausea, vomiting, constipation, diarrhea, dysuria, hematuria. 12-point R OS was unremarkable except for what was mentioned above. Objective - Vital Signs/Intake and Output Vital Signs (last 24 hours): Temp Pulse Resp BP Pulse Ox 97.6 F 95 H 20 132/56 L 97 12/15/18 06:00 12/15/18 10:08 12/15/18 06:00 12/15/18 10:08 12/15/18 06:00 Intake and Output: 12/15/18 12/15/18 06:59 18:59 Intake Total 708 Output Total 600 Balance 108 - Medications Medications: Current Medications Acetaminophen (Tylenol 325mg Tab) 650 mg PO Q6H PRN PRN Reason: Pain, moderate (4-7) Last Admin: 12/15/18 08:26 Dose: 650 mg Apixaban (Eliquis) 5 mg PO BID [facility]; Protocol Last Admin: 12/15/18 10:04 Dose: 5 mg Artificial Tears (Refresh Opth Soln) 0.3 ml OU DAILY PRN PRN Reason: Dry eyes Last Admin: 12/15/18 10:03 Dose: 1 drop Atorvastatin Calcium (Lipitor) 40 mg PO DAILY [facility] Last Admin: 12/15/18 10:04 Dose: 40 mg Calcitriol (Rocaltrol) 0.25 mcg PO [facility] Last Admin: 12/13/18 11:19 Dose: 0.25 mcg Calcium Carbonate (Oscal) 500 mg PO DAILY [facility] Last Admin: 12/15/18 10:51 Dose: 500 mg Dextrose (Dextrose 50% Inj) 0 ml IV STAT PRN; Protocol PRN Reason: Hypoglycemia Protocol Digoxin (Digoxin) 0.125 mg PO [facility] Last Admin: 12/13/18 11:30 Dose: 0.125 mg Furosemide (Lasix) 40 mg IVP BID [facility] Dextrose (Dextrose 5% In Water 1000 Ml) 1,000 mls @ 0 mls/hr IV .Q0M PRN; Protocol PRN Reason: Hypoglycemia Protocol Aztreonam (Azactam 1 Gm) 100 mls @ 100 mls/hr IVPB Q12 [facility]; Protocol Stop: 12/15/18 22:01 Last Admin: 12/15/18 10:03 Dose: 100 mls/hr Daptomycin 400 mg/ Sodium (Chloride) 100 mls @ 200 mls/hr IV Q48H [facility] Stop: 12/16/18 10:01 Last Admin: 12/15/18 10:42 Dose: 200 mls/hr Milrinone Lactate/Dextrose (Primacor 20mg/100ml D5w) 100 mls @ 3.984 mls/hr IV .Q24H PRN; Protocol PRN Reason: TITRATE PER MD ORDER Last Admin: 12/14/18 12:21 Dose: 0.2 mcg/kg/min, 3.984 mls/hr Insulin Human Regular (Humulin R Low) 0 units SC ACHS [facility]; Protocol Last Admin: 12/15/18 08:21 Dose: 2 unit Isosorbide Mononitrate (Imdur) 60 mg PO DAILY [facility] Last Admin: 12/15/18 10:04 Dose: 60 mg Levalbuterol HCl (Xopenex) 0.63 mg IH [id number] PRN PRN Reason: Shortness of Breath Last Admin: 12/14/18 10:17 Dose: 0.63 mg Magnesium Oxide (Mag-Ox) 400 mg PO BID [facility] Last Admin: 12/15/18 10:04 Dose: 400 mg Metoprolol Succinate (Toprol Xl) 50 mg PO DAILY [facility] Last Admin: 12/15/18 10:08 Dose: 50 mg Mupirocin (Bactroban Ointment) 10 gm TOP BID [facility] Last Admin: 12/15/18 10:05 Dose: 1 applic Ondansetron HCl (Zofran Inj) 4 mg IVP Q4 PRN PRN Reason: Nausea/Vomiting Pantoprazole Sodium (Protonix Inj) 40 mg IVP Q12 [facility] Last Admin: 12/15/18 10:04 Dose: 40 mg Primidone (Mysoline) 50 mg PO [facility] Last Admin: 12/14/18 21:22 Dose: 50 mg Spironolactone (Aldactone) 12.5 mg PO DAILY [facility] Last Admin: 12/15/18 10:42 Dose: 12.5 mg Tamsulosin HCl (Flomax) 0.4 mg PO [facility] Last Admin: 12/14/18 21:22 Dose: 0.4 mg Tramadol HCl (Ultram) 50 mg PO Q8H PRN PRN Reason: Pain, moderate (4-7) Last Admin: 12/15/18 10:43 Dose: 50 mg - Labs Labs: 12/15/18 06:30 12/15/18 06:30 PT 24.6 SECONDS (9.4-12.5) H 12/12/18 05:45 INR 2.18 12/12/18 05:45 APTT 40.1 Seconds (26.9-38.3) H 12/12/18 05:45 - Constitutional Appears: Well, Non-toxic, No Acute Distress - Head Exam Head Exam: ATRAUMATIC, NORMAL INSPECTION, NORMOCEPHALIC - Eye Exam Eye Exam: EOMI Pupil Exam: PERRL - Respiratory Exam Respiratory Exam: crackles present at bilateral bases - Cardiovascular Exam Cardiovascular Exam: REGULAR RHYTHM, RRR - GI/Abdominal Exam GI & Abdominal Exam: Soft, Normal Bowel Sounds. absent: Tenderness - Extremities Exam Extremities Exam: Pedal Edema (saldana of bilateral lower extremities). absent: Full ROM (unable to move bilateral lower extremities) - Neurological Exam Neurological Exam: Alert, Awake, CN II-XII Intact, Oriented x3 Neuro motor strength exam: Left Upper Extremity: 4, Right Upper Extremity: 5, Left Lower Extremity: 0, Right Lower Extremity: 0 - Skin Skin Exam: Dry, Intact Assessment and Plan - Assessment and Plan (Free Text) Assessment: 73 year old with past medical history of CAD s/p CABG, DM II, systolic CHF s/p AICD placement, dilated cardiomyopathy on home dobutamine, neuropathy, PVD, HLD, ileostomy for ischemic colitis, chronic hip and knee pain, CKD stage 4, chronic sacral ulcer presented with partial SBO which has now resolved. Patient also was found to have gram + bacteremia on 12/06 and PICC line was removed. Repeat blood cultures were negative. Patient was found to have UTI treated with levaquin. FOBT was found to be positive and is status post 1 U of PRBCs. Patient was recently found to have left subclavian vein thrombus and started on heparin drip. Patient has had episodes of nonsustained ventricular tachycardia with interrogation of pacemaker. Plan: Nonsustained Ventricular Tachycardia -As per Dr. Renee, EP, continue with metoprolol succinate 100 mg daily -Will consider amiodarone if patient has sustained episodes -AICD evaluated with no parameters changed at this time. Gram positive bacteremia -Blood culture 12/05: Staphylococcus epidermitis -Repeat blood culture on 12/06 was negative for 5 days and on 12/08 was negative for 5 days -Likely source is PICC line -PICC line was removed. New PICC line was inserted on 12/09 -Continue with daptomycin day 8 post PICC removal. She has completed full duration of antibiotics. Urinary tract infection -Urine culture: Klebsiella pneumoniae -UA: more than 200 protein, trace intact blood, moderate leukocyte esterase, tntc wbc, many bacteria -Continue with aztreonam day 8 post PICC removal. She has completed full duration of antibiotics. Left subclavian vein thrombosis -Visualized on upper extremity ultrasound -Continue eliquis 5 mg BID was started as per Dr. Hyde. Watch for worsening of renal status of creatinine clearance less than 25. If so, discontinue eliquis. At this time, creatinine clearance was 40 CKD stage IV -BUN/CR: 43/1.6 from creatinine of 1.8 yesterday. -Baseline creatinine is 1.7-2.0 -Hyponatremia at 131 from 130 -Bicarbonate value increased to 24 from 22 -Aranesp dose given -Avoid nephrotoxins such as lisinopril, losartan, IV contrast Partial SBO-resolved -patient tolerating heart healthy diet -patient has adequate stool output -Continue with zofran PRN for nausea and protonix 40 Q12 Normocytic Anemia -Status post 1 U of PRBCs -FOBT was positive -Hemoglobin has been stable at 8.7 -Goal hemoglobin should be more than 8 due to myriad of cardiac problems Dilated cardiomyopathy with EF 46.6% -CXR 12/12 shows more pulmonary vascular congestion and bilateral lower extremity edema worsened. -Clinically improved today -Currently negative fluid balance -As per Dr. Vidales, continue milrinone drip -Continue with lipitor, digoxin, lasix, isosorbide nitrate, metoprolol succinate as per cardiology -Started spironolactone as per cardiology. CAD s/p CABG -Continue with home lipitor, metoprolol succinate, isosorbide nitrate Essential tremor -Continue with home primidone Diabetes mellitus type II -Random glucose: 208 -Continue with low SSI -Maintain euglycemia. Deconditioning -OOB order placed for patient to start ambulating for progress towards baseline -Will follow up with PT regarding further recommendations for discharge Chronic Right hip Pain -Started tramadol 50 Q8. Stopped dilaudid due to patient's increasing weakness GI prophylaxis: protonix 40 mg Q12 DVT prophylaxis: eliquis Disposition: PT initially recommended [facility]. Patient's wants patient to have home PT however. PT now recommends home with services for patient with PT 3x a week for 1 month. Patient plan discussed with attending. <Hermila Gusman - Last Filed: 12/15/18 14:14> Objective - Vital Signs/Intake and Output Vital Signs (last 24 hours): Temp Pulse Resp BP Pulse Ox 98 F 93 H 20 116/49 L 97 12/15/18 12:00 12/15/18 12:00 12/15/18 12:00 12/15/18 12:00 12/15/18 06:00 Intake and Output: 12/15/18 12/15/18 06:59 18:59 Intake Total 708 Output Total 600 Balance 108 - Medications Medications: Current Medications Acetaminophen (Tylenol 325mg Tab) 650 mg PO Q6H PRN PRN Reason: Pain, moderate (4-7) Last Admin: 12/15/18 08:26 Dose: 650 mg Apixaban (Eliquis) 5 mg PO BID [facility]; Protocol Last Admin: 12/15/18 10:04 Dose: 5 mg Artificial Tears (Refresh Opth Soln) 0.3 ml OU DAILY PRN PRN Reason: Dry eyes Last Admin: 12/15/18 10:03 Dose: 1 drop Atorvastatin Calcium (Lipitor) 40 mg PO DAILY [facility] Last Admin: 12/15/18 10:04 Dose: 40 mg Calcitriol (Rocaltrol) 0.25 mcg PO [facility] Last Admin: 12/13/18 11:19 Dose: 0.25 mcg Calcium Carbonate (Oscal) 500 mg PO DAILY [facility] Last Admin: 12/15/18 10:51 Dose: 500 mg Dextrose (Dextrose 50% Inj) 0 ml IV STAT PRN; Protocol PRN Reason: Hypoglycemia Protocol Digoxin (Digoxin) 0.125 mg PO [facility] Last Admin: 12/13/18 11:30 Dose: 0.125 mg Furosemide (Lasix) 40 mg IVP BID [facility] Dextrose (Dextrose 5% In Water 1000 Ml) 1,000 mls @ 0 mls/hr IV .Q0M PRN; Protocol PRN Reason: Hypoglycemia Protocol Aztreonam (Azactam 1 Gm) 100 mls @ 100 mls/hr IVPB Q12 [facility]; Protocol Stop: 12/15/18 22:01 Last Admin: 12/15/18 10:03 Dose: 100 mls/hr Daptomycin 400 mg/ Sodium (Chloride) 100 mls @ 200 mls/hr IV Q48H [facility] Stop: 12/16/18 10:01 Last Admin: 12/15/18 10:42 Dose: 200 mls/hr Milrinone Lactate/Dextrose (Primacor 20mg/100ml D5w) 100 mls @ 3.984 mls/hr IV .Q24H PRN; Protocol PRN Reason: TITRATE PER MD ORDER Last Admin: 12/14/18 12:21 Dose: 0.2 mcg/kg/min, 3.984 mls/hr Insulin Human Regular (Humulin R Low) 0 units SC ACHS [facility]; Protocol Last Admin: 12/15/18 12:52 Dose: 2 unit Isosorbide Mononitrate (Imdur) 60 mg PO DAILY [facility] Last Admin: 12/15/18 10:04 Dose: 60 mg Levalbuterol HCl (Xopenex) 0.63 mg IH [id number] PRN PRN Reason: Shortness of Breath Last Admin: 12/14/18 10:17 Dose: 0.63 mg Magnesium Oxide (Mag-Ox) 400 mg PO BID [facility] Last Admin: 12/15/18 10:04 Dose: 400 mg Metoprolol Succinate (Toprol Xl) 50 mg PO DAILY [facility] Last Admin: 12/15/18 10:08 Dose: 50 mg Mupirocin (Bactroban Ointment) 10 gm TOP BID [facility] Last Admin: 12/15/18 10:05 Dose: 1 applic Ondansetron HCl (Zofran Inj) 4 mg IVP Q4 PRN PRN Reason: Nausea/Vomiting Pantoprazole Sodium (Protonix Inj) 40 mg IVP Q12 [facility] Last Admin: 12/15/18 10:04 Dose: 40 mg Primidone (Mysoline) 50 mg PO HS [facility] Last Admin: 12/14/18 21:22 Dose: 50 mg Spironolactone (Aldactone) 12.5 mg PO DAILY [facility] Last Admin: 12/15/18 10:42 Dose: 12.5 mg Tamsulosin HCl (Flomax) 0.4 mg PO HS [facility] Last Admin: 12/14/18 21:22 Dose: 0.4 mg Tramadol HCl (Ultram) 50 mg PO Q8H PRN PRN Reason: Pain, moderate (4-7) Last Admin: 12/15/18 10:43 Dose: 50 mg - Labs Labs: 12/15/18 06:30 12/15/18 06:30 PT 24.6 SECONDS (9.4-12.5) H 12/12/18 05:45 INR 2.18 12/12/18 05:45 APTT 40.1 Seconds (26.9-38.3) H 12/12/18 05:45 Attending/Attestation - Attestation I have personally seen and examined this patient.: Yes I have fully participated in the care of the patient.: Yes I have reviewed all pertinent clinical information, including history, physical exam and plan: Yes Notes (Text): 12/15/18 14:10 73 year old female with past medical history of CAD s/p CABG, systolic CHF s/p AICD, dilated cardiomyopathy on home dobutamine, history of ischemic colitis s/p ileostomy, and CKD who presented initally with abdominal pain found to have partial SBO, now resolved. She was also found to have staph epidermidis bacteremia and klebsiella UTI for which she was started on antibiotics, completed. Repeat cultures are negative. Picc line was removed and replaced. ID is following. She is on anticoagulation for left subclavian vein thrombus. Hematology is following. LE extremity dopplers ordered for increased LE swelling. She had episode of NSVT last week. Dobutamine drip was discontinued. EPS evaluation was appreciated. AICD was interrogated. Patient is on iv lasix and milrinone drip for CHF. Cardiology is following and started aldactone today. PT initially recommended [facility]. However patient refused, wishing to be discharged home. However patient reports generalized weakness over past few days. I have discussed with her how she may benefit from rehab. PT follow up is requested. Hermila Gusman MD Hospitalist.
--- NOTE | 2018-12-15 12:46 | PN ---
DATE: 12/15/2018 SUBJECTIVE: The patient feels weak and orthopneic. Denies any chest pain. No reported sustained ventricular tachycardia. She is on milrinone infusion. PHYSICAL EXAMINATION: VITAL SIGNS: Blood pressure 164/94, heart rate 104, temperature 97.6, respirations 20. HEENT: Pale conjunctivae. CHEST: Diminished breath sounds at the bases. HEART: S1 and S2, regular. EXTREMITIES: 2+ left leg edema, 1+ right leg edema. LABORATORY DATA: Hemoglobin and hematocrit 8.7 and 27.7, white count 11.8, platelet count 270,000. The patient SMA-7; sodium 131, potassium 4.4, chloride 101, CO2 of 24, glucose 208, BUN 43, and creatinine 1.6. ASSESSMENT: 1. End-stage cardiomyopathy. 2. Coronary artery disease. 3. Chronic insufficiency. 4. Anemia. 5. Nonsustained ventricular tachycardia. 6. Uncontrolled diabetes mellitus and hyponatremia. 7. Uncontrolled hypertension. RECOMMENDATIONS: Continue digoxin 0.125 mg Sunday, Sunday and Sunday; continue Eliquis 5 mg twice a day, increase Lasix to 40 mg intravenously twice a day; continue milrinone infusion; continue Toprol XL 50 mg daily, start Aldactone 2.5 mg daily. Luís Weston MD
[2018-12-15] MEDS: Milrinone 20mg/100ml D5W 100 ML IV PRN (14:16)
--- NOTE | 2018-12-15 21:37 | CP.PCM.PN ---
Subjective - Date & Time of Evaluation Date of Evaluation: 12/15/18 Time of Evaluation: 20:00 - Subjective Subjective: No complaints, noted right post. tibial DVT Objective - Vital Signs/Intake and Output Vital Signs (last 24 hours): Temp Pulse Resp BP Pulse Ox 98 F 92 H 20 118/68 98 12/15/18 12:00 12/15/18 17:32 12/15/18 17:32 12/15/18 17:53 12/15/18 17:32 Intake and Output: 12/15/18 12/16/18 18:59 06:59 Intake Total 580 Output Total 900 Balance -320 - Medications Medications: Current Medications Acetaminophen (Tylenol 325mg Tab) 650 mg PO Q6H PRN PRN Reason: Pain, moderate (4-7) Last Admin: 12/15/18 08:26 Dose: 650 mg Apixaban (Eliquis) 5 mg PO BID [facility]; Protocol Last Admin: 12/15/18 17:53 Dose: 5 mg Artificial Tears (Refresh Opth Soln) 0.3 ml OU DAILY PRN PRN Reason: Dry eyes Last Admin: 12/15/18 10:03 Dose: 1 drop Atorvastatin Calcium (Lipitor) 40 mg PO DAILY [facility] Last Admin: 12/15/18 10:04 Dose: 40 mg Calcitriol (Rocaltrol) 0.25 mcg PO [facility] Last Admin: 12/13/18 11:19 Dose: 0.25 mcg Calcium Carbonate (Oscal) 500 mg PO DAILY [facility] Last Admin: 12/15/18 10:51 Dose: 500 mg Dextrose (Dextrose 50% Inj) 0 ml IV STAT PRN; Protocol PRN Reason: Hypoglycemia Protocol Digoxin (Digoxin) 0.125 mg PO [facility] Last Admin: 12/13/18 11:30 Dose: 0.125 mg Furosemide (Lasix) 40 mg IVP BID [facility] Last Admin: 12/15/18 17:53 Dose: 40 mg Dextrose (Dextrose 5% In Water 1000 Ml) 1,000 mls @ 0 mls/hr IV .Q0M PRN; Protocol PRN Reason: Hypoglycemia Protocol Aztreonam (Azactam 1 Gm) 100 mls @ 100 mls/hr IVPB Q12 [facility]; Protocol Stop: 12/15/18 22:01 Last Admin: 12/15/18 10:03 Dose: 100 mls/hr Daptomycin 400 mg/ Sodium (Chloride) 100 mls @ 200 mls/hr IV Q48H [facility] Stop: 12/16/18 10:01 Last Admin: 12/15/18 10:42 Dose: 200 mls/hr Milrinone Lactate/Dextrose (Primacor 20mg/100ml D5w) 100 mls @ 3.984 mls/hr IV .Q24H PRN; Protocol PRN Reason: TITRATE PER MD ORDER Last Admin: 12/15/18 14:16 Dose: 0.2 mcg/kg/min, 3.984 mls/hr Insulin Human Regular (Humulin R Low) 0 units SC [facility]; Protocol Last Admin: 12/15/18 17:52 Dose: 3 unit Isosorbide Mononitrate (Imdur) 60 mg PO DAILY [facility] Last Admin: 12/15/18 10:04 Dose: 60 mg Levalbuterol HCl (Xopenex) 0.63 mg IH [id number] PRN PRN Reason: Shortness of Breath Last Admin: 12/14/18 10:17 Dose: 0.63 mg Magnesium Oxide (Mag-Ox) 400 mg PO BID [facility] Last Admin: 12/15/18 17:53 Dose: 400 mg Metoprolol Succinate (Toprol Xl) 50 mg PO DAILY [facility] Last Admin: 12/15/18 10:08 Dose: 50 mg Mupirocin (Bactroban Ointment) 10 gm TOP BID [facility] Last Admin: 12/15/18 18:17 Dose: 1 applic Ondansetron HCl (Zofran Inj) 4 mg IVP Q4 PRN PRN Reason: Nausea/Vomiting Pantoprazole Sodium (Protonix Inj) 40 mg IVP Q12 [facility] Last Admin: 12/15/18 21:17 Dose: 40 mg Primidone (Mysoline) 50 mg PO HS [facility] Last Admin: 12/15/18 21:17 Dose: 50 mg Spironolactone (Aldactone) 12.5 mg PO DAILY [facility] Last Admin: 12/15/18 10:42 Dose: 12.5 mg Tamsulosin HCl (Flomax) 0.4 mg PO HS [facility] Last Admin: 12/15/18 21:17 Dose: 0.4 mg Tramadol HCl (Ultram) 50 mg PO Q8H PRN PRN Reason: Pain, moderate (4-7) Last Admin: 12/15/18 10:43 Dose: 50 mg - Labs Labs: 12/15/18 06:30 12/15/18 06:30 PT 24.6 SECONDS (9.4-12.5) H 12/12/18 05:45 INR 2.18 12/12/18 05:45 APTT 40.1 Seconds (26.9-38.3) H 12/12/18 05:45 - Head Exam Head Exam: ATRAUMATIC - Eye Exam Eye Exam: Normal appearance - ENT Exam ENT Exam: Mucous Membranes Dry - Respiratory Exam Respiratory Exam: NORMAL BREATHING PATTERN - Cardiovascular Exam Cardiovascular Exam: +S1, +S2 - GI/Abdominal Exam GI & Abdominal Exam: Normal Bowel Sounds - Extremities Exam Extremities Exam: Pedal Edema Assessment and Plan (1) DVT (deep venous thrombosis) Assessment & Plan: Left subclavian DVT newly discovered right post. tibial DVT suspect provoked from immobility on Eliquis 5mg BID - reduced renal function noted would continue with Eliquis for now as CrCl ~ 30; if worsens to < 25 chronically then agree with coumadin minimum duration of 3 months Status: Acute (2) Anemia Assessment & Plan: hypoproliferative erythroid response anemia of CKD - s/p Aranesp FOBT positive; monitor for acute drop in H/H while on anticoagulation no evidence of iron/b12/folate deficiency Status: Acute (3) Coagulopathy Assessment & Plan: anticoagulation Status: Acute
[2018-12-16 06:05] LABS: BASO # 0.01 K/mm3 (0.0-2.0); BASO % 0.1 % (0.0-3.0); EOS # 0.4 (0.0-0.7); EOS % 3.4 % (1.5-5.0); HEMOGLOBIN 8.5 g/dL (12.0-16.0); LYMPH % 8.2 % (22.0-35.0); MEAN CELL VOLUME 94.4 fl (80.0-105.0); MEAN CORPUSCULAR HEMOGLOBIN 29.6 pg (25.0-35.0); MEAN CORPUSCULAR HGB CONC 31.4 g/dl (31.0-37.0); MEAN PLATELET VOLUME 8.7 fl (7.0-11.0); MONO % 7.9 % (1.0-6.0); RBC 2.87 10^6/uL (3.5-6.1); RED CELL DISTRIBUTION WIDTH 18.1 % (11.5-14.5); WHITE BLOOD COUNT 12.1 10^3/uL (4.5-11.0)
[2018-12-16 06:12] LABS: ALB/GLOB RATIO 0.7 (1.1-1.8); ALBUMIN 2.3 g/dL (3.0-4.8); CALCIUM 7.8 mg/dL (8.4-10.5)
--- NOTE | 2018-12-16 08:33 | US ---
HISTORY: Leg pain and swelling. Evaluate for DVT PHYSICIAN(S): Vinnie Sarmiento MD. TECHNIQUE: Duplex sonography and color-flow Doppler with graded compression were used to evaluate the deep venous systems of both lower extremities. FINDINGS: There is hypoechoic occlusive thrombus in the right popliteal and visualized tibial veins. The right femoral vein and right common femoral vein are patent and compressible. There is no sonographic evidence for deep venous thrombosis the visualized segments of the left lower extremity IMPRESSION: Acute hypoechoic thrombus in the right popliteal and visualized tibial veins
--- NOTE | 2018-12-16 08:40 | CP.PCM.PN ---
Subjective - Date & Time of Evaluation Date of Evaluation: 12/16/18 Time of Evaluation: 08:37 - Subjective Subjective: Podiatry consult note: Dr. Vinnie Cortés 73 y/o F patient seen and evaluated this morning for R heel ulceration; stable. Patient is resting comfortably and in NAD. She denies any pain to ulceration site. She states that she has pain in her right hip. She denies any acute events overnight. She denies any overnight nausea/vomiting/fever/shortness of breath/chest pain. Objective - Vital Signs/Intake and Output Vital Signs (last 24 hours): Temp Pulse Resp BP Pulse Ox 98 F 98 H 20 122/86 97 12/16/18 06:00 12/16/18 06:00 12/16/18 06:00 12/16/18 06:00 12/16/18 06:00 Intake and Output: 12/16/18 12/16/18 06:59 18:59 Intake Total 988 Output Total 1600 Balance -612 - Medications Medications: Current Medications Acetaminophen (Tylenol 325mg Tab) 650 mg PO Q6H PRN PRN Reason: Pain, moderate (4-7) Last Admin: 12/16/18 01:26 Dose: 650 mg Apixaban (Eliquis) 5 mg PO BID [facility]; Protocol Last Admin: 12/15/18 17:53 Dose: 5 mg Artificial Tears (Refresh Opth Soln) 0.3 ml OU DAILY PRN PRN Reason: Dry eyes Last Admin: 12/15/18 10:03 Dose: 1 drop Atorvastatin Calcium (Lipitor) 40 mg PO DAILY [facility] Last Admin: 12/15/18 10:04 Dose: 40 mg Calcitriol (Rocaltrol) 0.25 mcg PO MWF [facility] Last Admin: 12/13/18 11:19 Dose: 0.25 mcg Calcium Carbonate (Oscal) 500 mg PO DAILY [facility] Last Admin: 12/15/18 10:51 Dose: 500 mg Dextrose (Dextrose 50% Inj) 0 ml IV STAT PRN; Protocol PRN Reason: Hypoglycemia Protocol Digoxin (Digoxin) 0.125 mg PO F [facility] Last Admin: 12/13/18 11:30 Dose: 0.125 mg Furosemide (Lasix) 40 mg IVP BID [facility] Last Admin: 12/15/18 17:53 Dose: 40 mg Dextrose (Dextrose 5% In Water 1000 Ml) 1,000 mls @ 0 mls/hr IV .Q0M PRN; Protocol PRN Reason: Hypoglycemia Protocol Daptomycin 400 mg/ Sodium (Chloride) 100 mls @ 200 mls/hr IV Q48H [facility] Stop: 12/16/18 10:01 Last Admin: 12/15/18 10:42 Dose: 200 mls/hr Milrinone Lactate/Dextrose (Primacor 20mg/100ml D5w) 100 mls @ 3.984 mls/hr IV .Q24H PRN; Protocol PRN Reason: TITRATE PER MD ORDER Last Admin: 12/15/18 14:16 Dose: 0.2 mcg/kg/min, 3.984 mls/hr Insulin Human Regular (Humulin R Low) 0 units SC ACHS [facility]; Protocol Last Admin: 12/15/18 21:46 Dose: Not Given Isosorbide Mononitrate (Imdur) 60 mg PO DAILY [facility] Last Admin: 12/15/18 10:04 Dose: 60 mg Levalbuterol HCl (Xopenex) 0.63 mg IH [id number] PRN PRN Reason: Shortness of Breath Last Admin: 12/14/18 10:17 Dose: 0.63 mg Magnesium Oxide (Mag-Ox) 400 mg PO BID [facility] Last Admin: 12/15/18 17:53 Dose: 400 mg Metoprolol Succinate (Toprol Xl) 50 mg PO DAILY [facility] Last Admin: 12/15/18 10:08 Dose: 50 mg Mupirocin (Bactroban Ointment) 10 gm TOP BID [facility] Last Admin: 12/15/18 18:17 Dose: 1 applic Ondansetron HCl (Zofran Inj) 4 mg IVP Q4 PRN PRN Reason: Nausea/Vomiting Pantoprazole Sodium (Protonix Inj) 40 mg IVP Q12 [facility] Last Admin: 12/15/18 21:17 Dose: 40 mg Primidone (Mysoline) 50 mg PO HS [facility] Last Admin: 12/15/18 21:17 Dose: 50 mg Spironolactone (Aldactone) 12.5 mg PO DAILY [facility] Last Admin: 12/15/18 10:42 Dose: 12.5 mg Tamsulosin HCl (Flomax) 0.4 mg PO HS [facility] Last Admin: 12/15/18 21:17 Dose: 0.4 mg Tramadol HCl (Ultram) 50 mg PO Q8H PRN PRN Reason: Pain, moderate (4-7) Last Admin: 12/16/18 08:01 Dose: 50 mg - Labs Labs: 12/16/18 05:55 12/16/18 05:55 PT 24.6 SECONDS (9.4-12.5) H 12/12/18 05:45 INR 2.18 12/12/18 05:45 APTT 40.1 Seconds (26.9-38.3) H 12/12/18 05:45 - Constitutional Appears: Well, Non-toxic, No Acute Distress - Head Exam Head Exam: ATRAUMATIC, NORMOCEPHALIC - Extremities Exam Additional comments: Bilateral Lower Extremity exam Vasc: DP and PT 2/4 bilaterally, cap refill < 3 seconds to the remaining digits, no edema noted, Temp gradient within normal limits. Neuro: gross and protective sensation intact b/l. Derm: R decubitus tissue injury noted to the right heel, significantly improving, wound is superficial with no surrounding erythema at this time, no probe to bone, no malodor, no signs of infection, no drainage, no malodor. MSK: no tenderness upon palpation to the ulceration site, minimal pain with range of motion, muscular strength 5/5 - Neurological Exam Neurological Exam: Alert, Awake, Oriented x3 - Psychiatric Exam Psychiatric exam: Normal Affect, Normal Mood Assessment and Plan - Assessment and Plan (Free Text) Assessment: 73 y/o F patient seen and evaluated at bedside for R heel ulceration; stable Plan: Patient seen and evaluated Plan discussed with Dr. Cortés Charts, labs and vitals reviewed; Afebrile, WBC 12.1 likely secondary to UTI vs. bacteremia Patient wound stable at this time from Podiatric standpoint, non-infected Patient right heel wound dressed with bactroban and DSD. Lotion to be applied to bilateral feet and legs for xerosis daily Podiatry will continue to follow up the patient while in house
[2018-12-16] MEDS: Insulin Reg-LOW-Coverage SC SCH ×5 (09:23→22:14)
[2018-12-16] MEDS: Digoxin 125 mcg (0.125 mg) Tab PO SCH (09:39)
[2018-12-16] MEDS: Metoprolol Succinate 50 mg XL Tab PO SCH (09:39)
[2018-12-16] MEDS: Magnesium Oxide 400 mg Tab UD PO SCH ×2 (09:40→18:22)
[2018-12-16] MEDS: Lubricant Eye Drops UD OU PRN (09:42)
[2018-12-16 09:43] VITALS: PULSE 95
[2018-12-16] MEDS: Morphine 2 mg/ml ISec IVP PRN ×2 (10:30→18:19)
[2018-12-16] MEDS: Mupirocin 2% Ointment 15 GM TUBE TOP SCH ×2 (10:42→18:50)
--- NOTE | 2018-12-16 12:48 | CP.PCM.PN ---
Subjective - Date & Time of Evaluation Date of Evaluation: 12/16/18 Time of Evaluation: 09:35 - Subjective Subjective: No nausea, no diarrhea, no fevers. Objective - Vital Signs/Intake and Output Vital Signs (last 24 hours): Temp Pulse Resp BP Pulse Ox 97.6 F 95 H 20 132/56 L 97 12/15/18 06:00 12/15/18 10:08 12/15/18 06:00 12/15/18 10:08 12/15/18 06:00 Intake and Output: 12/15/18 12/15/18 06:59 18:59 Intake Total 708 Output Total 600 Balance 108 - Medications Medications: Current Medications Acetaminophen (Tylenol 325mg Tab) 650 mg PO Q6H PRN PRN Reason: Pain, moderate (4-7) Last Admin: 12/15/18 08:26 Dose: 650 mg Apixaban (Eliquis) 5 mg PO BID [facility]; Protocol Last Admin: 12/15/18 10:04 Dose: 5 mg Artificial Tears (Refresh Opth Soln) 0.3 ml OU DAILY PRN PRN Reason: Dry eyes Last Admin: 12/15/18 10:03 Dose: 1 drop Atorvastatin Calcium (Lipitor) 40 mg PO DAILY [facility] Last Admin: 12/15/18 10:04 Dose: 40 mg Calcitriol (Rocaltrol) 0.25 mcg PO [facility] [place] Last Admin: 12/13/18 11:19 Dose: 0.25 mcg Calcium Carbonate (Oscal) 500 mg PO DAILY [facility] Last Admin: 12/15/18 10:51 Dose: 500 mg Dextrose (Dextrose 50% Inj) 0 ml IV STAT PRN; Protocol PRN Reason: Hypoglycemia Protocol Digoxin (Digoxin) 0.125 mg PO [facility] [place] Last Admin: 12/13/18 11:30 Dose: 0.125 mg Furosemide (Lasix) 40 mg IVP BID [facility] Dextrose (Dextrose 5% In Water 1000 Ml) 1,000 mls @ 0 mls/hr IV .Q0M PRN; Protocol PRN Reason: Hypoglycemia Protocol Aztreonam (Azactam 1 Gm) 100 mls @ 100 mls/hr IVPB Q12 [facility]; Protocol Stop: 12/15/18 22:01 Last Admin: 12/15/18 10:03 Dose: 100 mls/hr Daptomycin 400 mg/ Sodium (Chloride) 100 mls @ 200 mls/hr IV Q48H [facility] Stop: 12/16/18 10:01 Last Admin: 12/15/18 10:42 Dose: 200 mls/hr Milrinone Lactate/Dextrose (Primacor 20mg/100ml D5w) 100 mls @ 3.984 mls/hr IV .Q24H PRN; Protocol PRN Reason: TITRATE PER MD ORDER Last Admin: 12/14/18 12:21 Dose: 0.2 mcg/kg/min, 3.984 mls/hr Insulin Human Regular (Humulin R Low) 0 units SC ACHS [facility]; Protocol Last Admin: 12/15/18 08:21 Dose: 2 unit Isosorbide Mononitrate (Imdur) 60 mg PO DAILY [facility] Last Admin: 12/15/18 10:04 Dose: 60 mg Levalbuterol HCl (Xopenex) 0.63 mg IH [id number] PRN PRN Reason: Shortness of Breath Last Admin: 12/14/18 10:17 Dose: 0.63 mg Magnesium Oxide (Mag-Ox) 400 mg PO BID [facility] Last Admin: 12/15/18 10:04 Dose: 400 mg Metoprolol Succinate (Toprol Xl) 50 mg PO DAILY [facility] Last Admin: 12/15/18 10:08 Dose: 50 mg Mupirocin (Bactroban Ointment) 10 gm TOP BID [facility] Last Admin: 12/15/18 10:05 Dose: 1 applic Ondansetron HCl (Zofran Inj) 4 mg IVP Q4 PRN PRN Reason: Nausea/Vomiting Pantoprazole Sodium (Protonix Inj) 40 mg IVP Q12 [facility] Last Admin: 12/15/18 10:04 Dose: 40 mg Primidone (Mysoline) 50 mg PO HS [facility] Last Admin: 12/14/18 21:22 Dose: 50 mg Spironolactone (Aldactone) 12.5 mg PO DAILY [facility] Last Admin: 12/15/18 10:42 Dose: 12.5 mg Tamsulosin HCl (Flomax) 0.4 mg PO HS [facility] Last Admin: 12/14/18 21:22 Dose: 0.4 mg Tramadol HCl (Ultram) 50 mg PO Q8H PRN PRN Reason: Pain, moderate (4-7) Last Admin: 12/15/18 10:43 Dose: 50 mg - Labs Labs: 12/15/18 06:30 12/15/18 06:30 PT 24.6 SECONDS (9.4-12.5) H 12/12/18 05:45 INR 2.18 12/12/18 05:45 APTT 40.1 Seconds (26.9-38.3) H 12/12/18 05:45 - Constitutional Appears: Chronically Ill - Head Exam Head Exam: NORMAL INSPECTION - Neck Exam Neck Exam: absent: Meningismus - Respiratory Exam Respiratory Exam: Decreased Breath Sounds - Cardiovascular Exam Cardiovascular Exam: +S1, +S2 - GI/Abdominal Exam GI & Abdominal Exam: Soft. absent: Tenderness Assessment and Plan - Assessment and Plan (Free Text) Plan: Assessment Staph epidermidis bacteremia, R/O related to PICC line S/P removal of PICC line 12/08/2018, S/P treatment with antibiotics R/O UTI with Klebsiella history of hematuria and urinary retention R/O UTI with E. faecalis, S/P treatment with antibiotics S/P left leg cellulitis as well as right sided community-acquired pneumonia S/P left foot 2nd digit skin and skin structure infection CAD S/P CABG abdominal aortic aneurysm S/P repair S/P cholecystectomy S/P pacemaker placement DM S/P left toe amputation Plan completed 7 days of Daptomycin (from time of PICC removal) and azactam; repeat blood cx are negative; 2D echo does not show vegetations will continue to monitor clinically while the patient is in the hospital patient found to have right leg popliteal thrombosis - medical team to manage
--- NOTE | 2018-12-16 14:11 | CP.PCM.PN ---
<Martin Ochoa - Last Filed: 12/16/18 14:02> Subjective - Date & Time of Evaluation Date of Evaluation: 12/16/18 Time of Evaluation: 14:12 - Subjective Subjective: Martin Ochoa, PGY-1, Internal Medicine Progress Note for Dr. Gusman Patient seen and evaluated at bedside. Patient had no acute overnight events. Patient reports generalized weakness, and continuation of right hip and left shoulder pain. Right hip pain is significantly worse today after switching to tramadol. Patient was out of bed yesterday but needed the help of 3 people. Patient denied headache, fever, chest pain, shortness of breath, nausea, vomiting, constipation, diarrhea, dysuria, hematuria. 12-point ROS was unremarkable except for what was mentioned above. Objective - Vital Signs/Intake and Output Vital Signs (last 24 hours): Temp Pulse Resp BP Pulse Ox 98.4 F 92 H 19 154/77 H 97 12/16/18 12:00 12/16/18 12:00 12/16/18 12:00 12/16/18 12:00 12/16/18 06:00 Intake and Output: 12/16/18 12/16/18 06:59 18:59 Intake Total 988 Output Total 1600 Balance -612 - Medications Medications: Current Medications Acetaminophen (Tylenol 325mg Tab) 650 mg PO Q6H PRN PRN Reason: Pain, moderate (4-7) Last Admin: 12/16/18 01:26 Dose: 650 mg Apixaban (Eliquis) 5 mg PO BID [facility]; Protocol Last Admin: 12/16/18 09:38 Dose: 5 mg Artificial Tears (Refresh Opth Soln) 0.3 ml OU DAILY PRN PRN Reason: Dry eyes Last Admin: 12/16/18 09:42 Dose: 1 drop Atorvastatin Calcium (Lipitor) 40 mg PO DAILY [facility] Last Admin: 12/16/18 09:39 Dose: 40 mg Calcitriol (Rocaltrol) 0.25 mcg PO MWF [facility] Last Admin: 12/16/18 09:38 Dose: 0.25 mcg Calcium Carbonate (Oscal) 500 mg PO DAILY [facility] Last Admin: 12/16/18 09:41 Dose: 500 mg Dextrose (Dextrose 50% Inj) 0 ml IV STAT PRN; Protocol PRN Reason: Hypoglycemia Protocol Digoxin (Digoxin) 0.125 mg PO MWF [facility] Last Admin: 12/16/18 09:39 Dose: 0.125 mg Furosemide (Lasix) 40 mg IVP BID [facility] Last Admin: 12/16/18 09:37 Dose: 40 mg Dextrose (Dextrose 5% In Water 1000 Ml) 1,000 mls @ 0 mls/hr IV .Q0M PRN; Protocol PRN Reason: Hypoglycemia Protocol Milrinone Lactate/Dextrose (Primacor 20mg/100ml D5w) 100 mls @ 3.984 mls/hr IV .Q24H PRN; Protocol PRN Reason: TITRATE PER MD ORDER Last Admin: 12/15/18 14:16 Dose: 0.2 mcg/kg/min, 3.984 mls/hr Insulin Human Regular (Humulin R Low) 0 units SC [facility]; Protocol Last Admin: 12/16/18 12:31 Dose: 1 unit Isosorbide Mononitrate (Imdur) 60 mg PO DAILY [facility] Last Admin: 12/16/18 09:40 Dose: 60 mg Levalbuterol HCl (Xopenex) 0.63 mg IH [id number] PRN PRN Reason: Shortness of Breath Last Admin: 12/14/18 10:17 Dose: 0.63 mg Magnesium Oxide (Mag-Ox) 400 mg PO BID [facility] Last Admin: 12/16/18 09:40 Dose: 400 mg Metoprolol Succinate (Toprol Xl) 50 mg PO DAILY [facility] Last Admin: 12/16/18 09:39 Dose: 50 mg Morphine Sulfate (Morphine) 2 mg IVP Q6 PRN PRN Reason: Pain, severe (8-10) Last Admin: 12/16/18 10:30 Dose: 2 mg Mupirocin (Bactroban Ointment) 10 gm TOP BID [facility] Last Admin: 12/16/18 10:42 Dose: Not Given Ondansetron HCl (Zofran Inj) 4 mg IVP Q4 PRN PRN Reason: Nausea/Vomiting Pantoprazole Sodium (Protonix Inj) 40 mg IVP Q12 [facility] Last Admin: 12/16/18 09:37 Dose: 40 mg Primidone (Mysoline) 50 mg PO HS [facility] Last Admin: 12/15/18 21:17 Dose: 50 mg Spironolactone (Aldactone) 12.5 mg PO DAILY [facility] Last Admin: 12/16/18 09:40 Dose: 12.5 mg Tamsulosin HCl (Flomax) 0.4 mg PO HS [facility] Last Admin: 12/15/18 21:17 Dose: 0.4 mg - Labs Labs: 12/16/18 05:55 12/16/18 05:55 PT 24.6 SECONDS (9.4-12.5) H 12/12/18 05:45 INR 2.18 12/12/18 05:45 APTT 40.1 Seconds (26.9-38.3) H 12/12/18 05:45 - Constitutional Appears: Well, Non-toxic, No Acute Distress - Head Exam Head Exam: ATRAUMATIC, NORMAL INSPECTION, NORMOCEPHALIC - Eye Exam Eye Exam: EOMI Pupil Exam: PERRL - Respiratory Exam Respiratory Exam: clear to auscultation bilaterally - Cardiovascular Exam Cardiovascular Exam: REGULAR RHYTHM, RRR - GI/Abdominal Exam GI & Abdominal Exam: Soft, Normal Bowel Sounds. absent: Tenderness - Extremities Exam Extremities Exam: Pedal Edema (saldana of bilateral lower extremities). absent: Full ROM - Neurological Exam Neurological Exam: Alert, Awake, CN II-XII Intact, Oriented x3 Neuro motor strength exam: Left Upper Extremity: 4, Right Upper Extremity: 5, Left Lower Extremity: 2, Right Lower Extremity: 2 Assessment and Plan - Assessment and Plan (Free Text) Assessment: 73 year old with past medical history of CAD s/p CABG, DM II, systolic CHF s/p AICD placement, dilated cardiomyopathy on home dobutamine, neuropathy, PVD, HLD, ileostomy for ischemic colitis, chronic hip and knee pain, CKD stage 4, chronic sacral ulcer presented with partial SBO which has now resolved. Patient also was found to have gram + bacteremia on 12/06 and PICC line was removed. Repeat blood cultures were negative. Patient was found to have UTI treated with levaquin. FOBT was found to be positive and is status post 1 U of PRBCs. Patient was recently found to have left subclavian vein thrombus and started on heparin ip. Patient has had episodes of nonsustained ventricular tachycardia with interrogation of pacemaker. Patient was found to have right posterior tibial DVT on duplex ultrasound on 12/15 Plan: Nonsustained Ventricular Tachycardia -As per Dr. Renee, EP, continue with metoprolol succinate 100 mg daily -Will consider amiodarone if patient has sustained episodes -AICD evaluated with no parameters changed at this time. Gram positive bacteremia -Blood culture 12/05: Staphylococcus epidermitis -Repeat blood culture on 12/06 was negative for 5 days and on 12/08 was negative for 5 days -Likely source is PICC line -PICC line was removed. New PICC line was inserted on 12/09 -She has completed full duration of antibiotics. Urinary tract infection -Urine culture: Klebsiella pneumoniae -UA: more than 200 protein, trace intact blood, moderate leukocyte esterase, tntc wbc, many bacteria -Continue with aztreonam day 8 post PICC removal. She has completed full duration of antibiotics. Left subclavian vein thrombosis and Right popliteal and tibial veins -Visualized on upper extremity ultrasound -Continue eliquis 5 mg BID was started as per Dr. Hyde. Even though patient has new thrombus in popliteal and tibial veins, Dr. Hyde recommends continuing the eliquis. He attributes the new thrombus to prolonged immobilization. As a result, patient should be out of bed with frequently movement of lower and upper extremities. Watch for worsening of renal status of creatinine clearance less than 25. If so, discontinue eliquis. At this time, creatinine clearance was 40 CKD stage IV -BUN/CR: 42/1.6 from creatinine of 1.6 yesterday. -Baseline creatinine is 1.7-2.0 -Hyponatremia at 130 from 131 -Aranesp dose given -Avoid nephrotoxins such as lisinopril, losartan, IV contrast Partial SBO-resolved -patient tolerating heart healthy diet -patient has adequate stool output -Continue with zofran PRN for nausea and protonix 40 Q12 Normocytic Anemia -Status post 1 U of PRBCs -FOBT was positive -Hemoglobin has been stable at 8.5 -Goal hemoglobin should be more than 8 due to myriad of cardiac problems Dilated cardiomyopathy with EF 46.6% -CXR 12/12 shows more pulmonary vascular congestion and bilateral lower extremity edema worsened. -Clinically improved today -Currently negative fluid balance -As per Dr. Vidales, continue milrinone drip -Continue with lipitor, digoxin, lasix, spironolactone, isosorbide nitrate, metoprolol succinate as per cardiology CAD s/p CABG -Continue with home lipitor, metoprolol succinate, isosorbide nitrate Essential tremor -Continue with home primidone Diabetes mellitus type II -Random glucose: 170 -Continue with low SSI -Maintain euglycemia. Deconditioning -OOB order placed for patient to start ambulating for progress towards baseline -Will follow up with PT regarding further recommendations for discharge Chronic Right hip Pain -Started morphine 2 mg Q6PRN for pain. Stopped tramadol. GI prophylaxis: protonix 40 mg Q12 DVT prophylaxis: eliquis Disposition: [facility] with patient in agreement Patient plan discussed with attending. <Hermila Gusman - Last Filed: 12/16/18 14:32> Objective - Vital Signs/Intake and Output Vital Signs (last 24 hours): Temp Pulse Resp BP Pulse Ox 98.4 F 92 H 19 154/77 H 97 12/16/18 12:00 12/16/18 12:00 12/16/18 12:00 12/16/18 12:00 12/16/18 06:00 Intake and Output: 12/16/18 12/16/18 06:59 18:59 Intake Total 988 Output Total 1600 Balance -612 - Medications Medications: Current Medications Acetaminophen (Tylenol 325mg Tab) 650 mg PO Q6H PRN PRN Reason: Pain, moderate (4-7) Last Admin: 12/16/18 01:26 Dose: 650 mg Apixaban (Eliquis) 5 mg PO BID [facility]; Protocol Last Admin: 12/16/18 09:38 Dose: 5 mg Artificial Tears (Refresh Opth Soln) 0.3 ml OU DAILY PRN PRN Reason: Dry eyes Last Admin: 12/16/18 09:42 Dose: 1 drop Atorvastatin Calcium (Lipitor) 40 mg PO DAILY [facility] Last Admin: 12/16/18 09:39 Dose: 40 mg Calcitriol (Rocaltrol) 0.25 mcg PO F [facility] Last Admin: 12/16/18 09:38 Dose: 0.25 mcg Calcium Carbonate (Oscal) 500 mg PO DAILY [facility] Last Admin: 12/16/18 09:41 Dose: 500 mg Dextrose (Dextrose 50% Inj) 0 ml IV STAT PRN; Protocol PRN Reason: Hypoglycemia Protocol Digoxin (Digoxin) 0.125 mg PO F [facility] Last Admin: 12/16/18 09:39 Dose: 0.125 mg Furosemide (Lasix) 40 mg IVP BID [facility] Last Admin: 12/16/18 09:37 Dose: 40 mg Dextrose (Dextrose 5% In Water 1000 Ml) 1,000 mls @ 0 mls/hr IV .Q0M PRN; Protocol PRN Reason: Hypoglycemia Protocol Milrinone Lactate/Dextrose (Primacor 20mg/100ml D5w) 100 mls @ 3.984 mls/hr IV .Q24H PRN; Protocol PRN Reason: TITRATE PER MD ORDER Last Admin: 12/15/18 14:16 Dose: 0.2 mcg/kg/min, 3.984 mls/hr Insulin Human Regular (Humulin R Low) [address] [facility]; Protocol Last Admin: 12/16/18 12:31 Dose: 1 unit Isosorbide Mononitrate (Imdur) 60 mg PO DAILY [facility] Last Admin: 12/16/18 09:40 Dose: 60 mg Levalbuterol HCl (Xopenex) 0.63 mg IH [id number] PRN PRN Reason: Shortness of Breath Last Admin: 12/14/18 10:17 Dose: 0.63 mg Magnesium Oxide (Mag-Ox) 400 mg PO BID [facility] Last Admin: 12/16/18 09:40 Dose: 400 mg Metoprolol Succinate (Toprol Xl) 50 mg PO DAILY [facility] Last Admin: 12/16/18 09:39 Dose: 50 mg Morphine Sulfate (Morphine) 2 mg IVP Q6 PRN PRN Reason: Pain, severe (8-10) Last Admin: 12/16/18 10:30 Dose: 2 mg Mupirocin (Bactroban Ointment) 10 gm TOP BID [facility] Last Admin: 12/16/18 10:42 Dose: Not Given Ondansetron HCl (Zofran Inj) 4 mg IVP Q4 PRN PRN Reason: Nausea/Vomiting Pantoprazole Sodium (Protonix Inj) 40 mg IVP Q12 [facility] Last Admin: 12/16/18 09:37 Dose: 40 mg Primidone (Mysoline) 50 mg PO HS [facility] Last Admin: 12/15/18 21:17 Dose: 50 mg Spironolactone (Aldactone) 12.5 mg PO DAILY [facility] Last Admin: 12/16/18 09:40 Dose: 12.5 mg Tamsulosin HCl (Flomax) 0.4 mg PO HS [facility] Last Admin: 12/15/18 21:17 Dose: 0.4 mg - Labs Labs: 12/16/18 05:55 12/16/18 05:55 PT 24.6 SECONDS (9.4-12.5) H 12/12/18 05:45 INR 2.18 12/12/18 05:45 APTT 40.1 Seconds (26.9-38.3) H 12/12/18 05:45 Attending/Attestation - Attestation I have personally seen and examined this patient.: Yes I have fully participated in the care of the patient.: Yes I have reviewed all pertinent clinical information, including history, physical exam and plan: Yes Notes (Text): 12/16/18 14:30 73 year old female with past medical history of CAD s/p CABG, systolic CHF s/p AICD, dilated cardiomyopathy on home dobutamine, history of ischemic colitis s/p ileostomy, and CKD who presented initally with abdominal pain found to have pa rtial SBO, now resolved. She was also found to have staph epidermidis bacteremia and klebsiella UTI for which she is s/p antibiotics. Repeat cultures are negative. Picc line was removed and replaced. ID is following. She is on anticoagulation for left subclavian vein thrombus and now also right posterior tibial thrombus. Hematology is following. Will need at least 3 months of anticoagulation. She had episode of NSVT last week. Dobutamine drip was discontinued. EPS evaluation was appreciated. AICD was interrogated. Patient is on iv lasix, aldactone and milrinone drip for CHF. Cardiology is following. PT follow up appreciated; still recommending [facility]. Discussed with patient and at bedside. Hermila Gusman MD Hospitalist.
--- NOTE | 2018-12-16 14:20 | PN ---
DATE: 12/16/2018 CARDIOLOGY FOLLOWUP SUBJECTIVE: The patient's breathing is fine off of ionotropic therapy. PHYSICAL EXAMINATION VITAL SIGNS: Blood pressure is 122/69 and heart rates in the 90s. NECK: Negative JVD. LUNGS: Without rales. HEART: Reveal S1 and S2. EXTREMITIES: Without edema. LABORATORY DATA: Hemoglobin is 8.5. Chemistries, BUN and creatinine 42 and 1.6. IMPRESSION: 1. End-stage dilated cardiomyopathy. 2. Coronary artery disease. 3. History of congestive heart failure. 4. Dyspnea is resolved. 5. Chronic pain in the lower back and lower extremities. Given these findings, we will start the patient on morphine. The patient refuses oxycodone for now. We will continue her low-dose ionotropic therapy. Vinnie Vidales MD
[2018-12-16] MEDS: Milrinone 20mg/100ml D5W 100 ML IV PRN (19:46)
--- NOTE | 2018-12-16 21:10 | CP.PCM.PN ---
Subjective - Date & Time of Evaluation Date of Evaluation: 12/16/18 Time of Evaluation: 18:00 - Subjective Subjective: Feels weak. Objective - Vital Signs/Intake and Output Vital Signs (last 24 hours): Temp Pulse Resp BP Pulse Ox 98.6 F 82 20 140/71 97 12/16/18 17:57 12/16/18 19:46 12/16/18 17:57 12/16/18 19:46 12/16/18 06:00 Intake and Output: 12/16/18 12/17/18 18:59 06:59 Intake Total 100 838 Output Total 740 Balance 100 98 - Medications Medications: Current Medications Acetaminophen (Tylenol 325mg Tab) 650 mg PO Q6H PRN PRN Reason: Pain, moderate (4-7) Last Admin: 12/16/18 01:26 Dose: 650 mg Apixaban (Eliquis) 5 mg PO BID [facility]; Protocol Last Admin: 12/16/18 18:22 Dose: 5 mg Artificial Tears (Refresh Opth Soln) 0.3 ml OU DAILY PRN PRN Reason: Dry eyes Last Admin: 12/16/18 09:42 Dose: 1 drop Atorvastatin Calcium (Lipitor) 40 mg PO DAILY [facility] Last Admin: 12/16/18 09:39 Dose: 40 mg Calcitriol (Rocaltrol) 0.25 mcg PO [facility] [place] Last Admin: 12/16/18 09:38 Dose: 0.25 mcg Calcium Carbonate (Oscal) 500 mg PO DAILY [facility] Last Admin: 12/16/18 09:41 Dose: 500 mg Dextrose (Dextrose 50% Inj) 0 ml IV STAT PRN; Protocol PRN Reason: Hypoglycemia Protocol Digoxin (Digoxin) 0.125 mg PO [facility] [place] Last Admin: 12/16/18 09:39 Dose: 0.125 mg Furosemide (Lasix) 40 mg IVP BID [facility] Last Admin: 12/16/18 18:20 Dose: 40 mg Dextrose (Dextrose 5% In Water 1000 Ml) 1,000 mls @ 0 mls/hr IV .Q0M PRN; Protocol PRN Reason: Hypoglycemia Protocol Milrinone Lactate/Dextrose (Primacor 20mg/100ml D5w) 100 mls @ 3.984 mls/hr IV .Q24H PRN; Protocol PRN Reason: TITRATE PER MD ORDER Last Admin: 12/16/18 19:46 Dose: 0.2 mcg/kg/min, 3.984 mls/hr Insulin Human Regular (Humulin R Low) 0 units SC ACHS [facility]; Protocol Last Admin: 12/16/18 18:24 Dose: 1 unit Isosorbide Mononitrate (Imdur) 60 mg PO DAILY [facility] Last Admin: 12/16/18 09:40 Dose: 60 mg Levalbuterol HCl (Xopenex) 0.63 mg IH [id number] PRN PRN Reason: Shortness of Breath Last Admin: 12/14/18 10:17 Dose: 0.63 mg Magnesium Oxide (Mag-Ox) 400 mg PO BID [facility] Last Admin: 12/16/18 18:22 Dose: 400 mg Metoprolol Succinate (Toprol Xl) 50 mg PO DAILY [facility] Last Admin: 12/16/18 09:39 Dose: 50 mg Morphine Sulfate (Morphine) 2 mg IVP Q6 PRN PRN Reason: Pain, severe (8-10) Last Admin: 12/16/18 18:19 Dose: 2 mg Mupirocin (Bactroban Ointment) 10 gm TOP BID [facility] Last Admin: 12/16/18 18:50 Dose: Not Given Ondansetron HCl (Zofran Inj) 4 mg IVP Q4 PRN PRN Reason: Nausea/Vomiting Pantoprazole Sodium (Protonix Inj) 40 mg IVP Q12 [facility] Last Admin: 12/16/18 09:37 Dose: 40 mg Primidone (Mysoline) 50 mg PO HS [facility] Last Admin: 12/15/18 21:17 Dose: 50 mg Spironolactone (Aldactone) 12.5 mg PO DAILY [facility] Last Admin: 12/16/18 09:40 Dose: 12.5 mg Tamsulosin HCl (Flomax) 0.4 mg PO HS [facility] Last Admin: 12/15/18 21:17 Dose: 0.4 mg - Labs Labs: 12/16/18 05:55 12/16/18 05:55 PT 24.6 SECONDS (9.4-12.5) H 12/12/18 05:45 INR 2.18 12/12/18 05:45 APTT 40.1 Seconds (26.9-38.3) H 12/12/18 05:45 - Head Exam Head Exam: ATRAUMATIC - Eye Exam Eye Exam: Normal appearance - ENT Exam ENT Exam: Mucous Membranes Dry - Respiratory Exam Respiratory Exam: NORMAL BREATHING PATTERN - Cardiovascular Exam Cardiovascular Exam: +S1, +S2 - GI/Abdominal Exam GI & Abdominal Exam: Normal Bowel Sounds - Extremities Exam Extremities Exam: Pedal Edema Assessment and Plan (1) DVT (deep venous thrombosis) Assessment & Plan: Left subclavian and posterior tibial DVTs suspect provoked from immobility on Eliquis 5mg BID - reduced renal function noted would continue with Eliquis for now as CrCl ~ 30; if worsens to < 25 chronically then agree with coumadin minimum duration of 3 months Status: Acute (2) Anemia Assessment & Plan: hypoproliferative erythroid response anemia of CKD - s/p Aranesp FOBT positive; monitor for acute drop in H/H while on anticoagulation no evidence of iron/b12/folate deficiency Status: Acute (3) Coagulopathy Assessment & Plan: anticoagulation Status: Acute
[2018-12-17 06:34] VITALS: O2SAT 97
[2018-12-17 06:54] LABS: BASO # 0.01 K/mm3 (0.0-2.0); BASO % 0.1 % (0.0-3.0); EOS # 0.5 (0.0-0.7); EOS % 4.9 % (1.5-5.0); HEMOGLOBIN 8.8 g/dL (12.0-16.0); LYMPH # 0.9 (1.2-3.4); LYMPH % 8.5 % (22.0-35.0); MEAN CELL VOLUME 95.7 fl (80.0-105.0); MEAN CORPUSCULAR HEMOGLOBIN 29.3 pg (25.0-35.0); MEAN CORPUSCULAR HGB CONC 30.7 g/dl (31.0-37.0); MEAN PLATELET VOLUME 8.8 fl (7.0-11.0); MONO # 0.7 (0.1-0.6); RED CELL DISTRIBUTION WIDTH 18.2 % (11.5-14.5); WHITE BLOOD COUNT 10.3 10^3/uL (4.5-11.0)
[2018-12-17 07:12] LABS: ALB/GLOB RATIO 0.7 (1.1-1.8); ALBUMIN 2.1 g/dL (3.0-4.8)
[2018-12-17] MEDS: Insulin Reg-LOW-Coverage SC SCH ×2 (08:12→12:11)
[2018-12-17] MEDS: Magnesium Oxide 400 mg Tab UD PO SCH ×2 (10:33→17:59)
[2018-12-17] MEDS: Mupirocin 2% Ointment 15 GM TUBE TOP SCH ×2 (10:37→18:00)
[2018-12-17] MEDS: Morphine 2 mg/ml ISec IVP PRN (12:07)
[2018-12-17] MEDS: Lubricant Eye Drops UD OU PRN (12:07)
--- NOTE | 2018-12-17 12:17 | CP.PCM.PN ---
Subjective - Date & Time of Evaluation Date of Evaluation: 12/17/18 Time of Evaluation: 12:15 - Subjective Subjective: Podiatry consult note: Dr. Vinnie Cortés 73 y/o F patient seen and evaluated this morning for R heel ulceration; stable. Patient is resting comfortably and in NAD. She denies any pain to ulceration site. She states that she has pain in her right decubitus ulcer. She denies any acute events overnight. She denies any overnight nausea/vomiting/fever/shortness of breath/chest pain. Objective - Vital Signs/Intake and Output Vital Signs (last 24 hours): Temp Pulse Resp BP Pulse Ox 98.4 F 94 H 21 93/63 L 97 12/17/18 06:00 12/17/18 06:00 12/17/18 06:00 12/17/18 10:34 12/17/18 06:00 Intake and Output: 12/17/18 12/17/18 06:59 18:59 Intake Total 838 780 Output Total 740 600 Balance 98 180 - Medications Medications: Current Medications Acetaminophen (Tylenol 325mg Tab) 650 mg PO Q6H PRN PRN Reason: Pain, moderate (4-7) Last Admin: 12/16/18 01:26 Dose: 650 mg Apixaban (Eliquis) 5 mg PO BID [facility]; Protocol Last Admin: 12/17/18 10:33 Dose: 5 mg Artificial Tears (Refresh Opth Soln) 0.3 ml OU DAILY PRN PRN Reason: Dry eyes Last Admin: 12/16/18 09:42 Dose: 1 drop Atorvastatin Calcium (Lipitor) 40 mg PO DAILY [facility] Last Admin: 12/17/18 10:33 Dose: 40 mg Calcitriol (Rocaltrol) 0.25 mcg PO [facility] [place] Last Admin: 12/16/18 09:38 Dose: 0.25 mcg Calcium Carbonate (Oscal) 500 mg PO DAILY [facility] Last Admin: 12/17/18 10:33 Dose: 500 mg Dextrose (Dextrose 50% Inj) 0 ml IV STAT PRN; Protocol PRN Reason: Hypoglycemia Protocol Digoxin (Digoxin) 0.125 mg PO [facility] [place] Last Admin: 12/16/18 09:39 Dose: 0.125 mg Furosemide (Lasix) 40 mg IVP BID [facility] Last Admin: 12/17/18 10:34 Dose: 40 mg Dextrose (Dextrose 5% In Water 1000 Ml) 1,000 mls @ 0 mls/hr IV .Q0M PRN; Protocol PRN Reason: Hypoglycemia Protocol Milrinone Lactate/Dextrose (Primacor 20mg/100ml D5w) 100 mls @ 3.984 mls/hr IV .Q24H PRN; Protocol PRN Reason: TITRATE PER MD ORDER Last Admin: 12/16/18 19:46 Dose: 0.2 mcg/kg/min, 3.984 mls/hr Insulin Human Regular (Humulin R Low) 0 units SC ACHS [facility]; Protocol Last Admin: 12/17/18 08:12 Dose: Not Given Isosorbide Mononitrate (Imdur) 60 mg PO DAILY [facility] Last Admin: 12/16/18 09:40 Dose: 60 mg Levalbuterol HCl (Xopenex) 0.63 mg IH [id number] PRN PRN Reason: Shortness of Breath Last Admin: 12/14/18 10:17 Dose: 0.63 mg Magnesium Oxide (Mag-Ox) 400 mg PO BID [facility] Last Admin: 12/17/18 10:33 Dose: 400 mg Metoprolol Succinate (Toprol Xl) 50 mg PO DAILY [facility] Last Admin: 12/16/18 09:39 Dose: 50 mg Morphine Sulfate (Morphine) 2 mg IVP Q6 PRN PRN Reason: Pain, severe (8-10) Last Admin: 12/16/18 18:19 Dose: 2 mg Mupirocin (Bactroban Ointment) 10 gm TOP BID [facility] Last Admin: 12/17/18 10:37 Dose: Not Given Ondansetron HCl (Zofran Inj) 4 mg IVP Q4 PRN PRN Reason: Nausea/Vomiting Pantoprazole Sodium (Protonix Inj) 40 mg IVP Q12 [facility] Last Admin: 12/17/18 10:34 Dose: 40 mg Primidone (Mysoline) 50 mg PO HS [facility] Last Admin: 12/16/18 22:14 Dose: 50 mg Spironolactone (Aldactone) 12.5 mg PO DAILY [facility] Last Admin: 12/16/18 09:40 Dose: 12.5 mg Tamsulosin HCl (Flomax) 0.4 mg PO HS [facility] Last Admin: 12/16/18 22:14 Dose: 0.4 mg - Labs Labs: 12/17/18 06:00 12/17/18 06:00 PT 24.6 SECONDS (9.4-12.5) H 12/12/18 05:45 INR 2.18 12/12/18 05:45 APTT 40.1 Seconds (26.9-38.3) H 12/12/18 05:45 - Constitutional Appears: Non-toxic, No Acute Distress - Head Exam Head Exam: ATRAUMATIC - Extremities Exam Additional comments: Bilateral Lower Extremity exam Vasc: DP and PT 2/4 bilaterally, cap refill < 3 seconds to the remaining digits, no edema noted, Temp gradient within normal limits. Neuro: gross and protective sensation intact b/l. Derm: R decubitus tissue injury noted to the right heel, significantly improving, wound is superficial with no surrounding erythema at this time, no probe to bone, no malodor, no signs of infection, no drainage, no malodor. MSK: no tenderness upon palpation to the ulceration site, minimal pain with r arthur of motion, muscular strength 5/5 - Neurological Exam Neurological Exam: Alert, Awake Assessment and Plan - Assessment and Plan (Free Text) Assessment: 73 y/o F patient seen and evaluated at bedside for R heel ulceration; stable Plan: Patient seen and evaluated Plan discussed with Dr. Cortés Charts, labs and vitals reviewed; Afebrile, WBC 10.1 likely secondary to UTI vs. bacteremia Patient wound stable at this time from Podiatric standpoint, non-infected Patient right heel wound dressed with bactroban and DSD. Lotion to be applied to bilateral feet and legs for xerosis daily Podiatry will continue to follow up the patient while in house
[2018-12-17 12:42] VITALS: BP 139/64; RESP 18; TEMP 98.2
--- NOTE | 2018-12-17 12:49 | CP.PCM.PN ---
Subjective - Date & Time of Evaluation Date of Evaluation: 12/17/18 Time of Evaluation: 09:15 - Subjective Subjective: Comfortable in bed, afebrile, not in distress. Objective - Vital Signs/Intake and Output Vital Signs (last 24 hours): Temp Pulse Resp BP Pulse Ox 98.2 F 100 H 18 139/64 97 12/17/18 12:00 12/17/18 12:00 12/17/18 12:00 12/17/18 12:00 12/17/18 06:00 Intake and Output: 12/17/18 12/17/18 06:59 18:59 Intake Total 838 780 Output Total 740 600 Balance 98 180 - Medications Medications: Current Medications Acetaminophen (Tylenol 325mg Tab) 650 mg PO Q6H PRN PRN Reason: Pain, moderate (4-7) Last Admin: 12/16/18 01:26 Dose: 650 mg Apixaban (Eliquis) 5 mg PO BID [facility]; Protocol Last Admin: 12/17/18 10:33 Dose: 5 mg Artificial Tears (Refresh Opth Soln) 0.3 ml OU DAILY PRN PRN Reason: Dry eyes Last Admin: 12/17/18 12:07 Dose: 1 drop Atorvastatin Calcium (Lipitor) 40 mg PO DAILY [facility] Last Admin: 12/17/18 10:33 Dose: 40 mg Calcitriol (Rocaltrol) 0.25 mcg PO [facility] [place] Last Admin: 12/16/18 09:38 Dose: 0.25 mcg Calcium Carbonate (Oscal) 500 mg PO DAILY [facility] Last Admin: 12/17/18 10:33 Dose: 500 mg Dextrose (Dextrose 50% Inj) 0 ml IV STAT PRN; Protocol PRN Reason: Hypoglycemia Protocol Digoxin (Digoxin) 0.125 mg PO F [facility] Last Admin: 12/16/18 09:39 Dose: 0.125 mg Furosemide (Lasix) 40 mg IVP BID [facility] Last Admin: 12/17/18 10:34 Dose: 40 mg Dextrose (Dextrose 5% In Water 1000 Ml) 1,000 mls @ 0 mls/hr IV .Q0M PRN; Protocol PRN Reason: Hypoglycemia Protocol Milrinone Lactate/Dextrose (Primacor 20mg/100ml D5w) 100 mls @ 3.984 mls/hr IV .Q24H PRN; Protocol PRN Reason: TITRATE PER MD ORDER Last Admin: 12/16/18 19:46 Dose: 0.2 mcg/kg/min, 3.984 mls/hr Insulin Human Regular (Humulin R Low) 0 units SC [facility]; Protocol Last Admin: 12/17/18 12:11 Dose: 1 unit Isosorbide Mononitrate (Imdur) 60 mg PO DAILY [facility] Last Admin: 12/16/18 09:40 Dose: 60 mg Levalbuterol HCl (Xopenex) 0.63 mg IH [id number] PRN PRN Reason: Shortness of Breath Last Admin: 12/14/18 10:17 Dose: 0.63 mg Magnesium Oxide (Mag-Ox) 400 mg PO BID [facility] Last Admin: 12/17/18 10:33 Dose: 400 mg Metoprolol Succinate (Toprol Xl) 50 mg PO DAILY [facility] Last Admin: 12/16/18 09:39 Dose: 50 mg Morphine Sulfate (Morphine) 2 mg IVP Q6 PRN PRN Reason: Pain, severe (8-10) Last Admin: 12/17/18 12:07 Dose: 2 mg Mupirocin (Bactroban Ointment) 10 gm TOP BID [facility] Last Admin: 12/17/18 10:37 Dose: Not Given Ondansetron HCl (Zofran Inj) 4 mg IVP Q4 PRN PRN Reason: Nausea/Vomiting Pantoprazole Sodium (Protonix Inj) 40 mg IVP Q12 [facility] Last Admin: 12/17/18 10:34 Dose: 40 mg Primidone (Mysoline) 50 mg PO HS [facility] Last Admin: 12/16/18 22:14 Dose: 50 mg Spironolactone (Aldactone) 12.5 mg PO DAILY [facility] Last Admin: 12/16/18 09:40 Dose: 12.5 mg Tamsulosin HCl (Flomax) 0.4 mg PO HS [facility] Last Admin: 12/16/18 22:14 Dose: 0.4 mg - Labs Labs: 12/17/18 06:00 12/17/18 06:00 PT 24.6 SECONDS (9.4-12.5) H 12/12/18 05:45 INR 2.18 12/12/18 05:45 APTT 40.1 Seconds (26.9-38.3) H 12/12/18 05:45 - Constitutional Appears: Chronically Ill - Head Exam Head Exam: NORMAL INSPECTION - Respiratory Exam Respiratory Exam: Decreased Breath Sounds - Cardiovascular Exam Cardiovascular Exam: +S1, +S2 - GI/Abdominal Exam GI & Abdominal Exam: Soft. absent: Tenderness Assessment and Plan - Assessment and Plan (Free Text) Plan: Assessment Staph epidermidis bacteremia, R/O related to PICC line S/P removal of PICC line 12/08/2018, S/P treatment with antibiotics R/O UTI with Klebsiella history of hematuria and urinary retention R/O UTI with E. faecalis, S/P treatment with antibiotics S/P left leg cellulitis as well as right sided community-acquired pneumonia S/P left foot 2nd digit skin and skin structure infection CAD S/P CABG abdominal aortic aneurysm S/P repair S/P cholecystectomy S/P pacemaker placement DM S/P left toe amputation Plan completed 7 days of Daptomycin (from time of PICC removal) and azactam; repeat blood cx are negative; 2D echo does not show vegetations will continue to follow clinically while the patient is in the hospital patient found to have right leg popliteal thrombosis - medical team to manage
[2018-12-17] MEDS: Metoprolol Succinate 50 mg XL Tab PO SCH (15:00)
[2018-12-17 15:05] VITALS: PULSE 102
--- NOTE | 2018-12-17 16:05 | CP.PCM.DIS ---
<Martin Ochoa - Last Filed: 12/17/18 16:01> Provider - Provider Date of Admission: 12/04/18 09:40 Attending physician: Hermila Gusman MD Primary care physician: Yariel Flannery MD Consults: 12/04/18 05:16 Cardiology Consult Routine Comment: Consulting Provider: Vinnie Vidales Consulting Physician: Vinnie Vidales Reason for Consult: Hx CAD, s/p AICD, on dobutamine drip as home med, pt known to you 12/04/18 05:18 General Surgery Consult Routine Comment: Consulting Provider: Segundo Mercado Consulting Physician: Segundo Mercado Reason for Consult: partial SBO, hx colostomy 12/04/18 10:25 Gastroenterology Consult Routine Comment: Consulting Provider: Crystal Tomas V Consulting Physician: Crystal Tomas V Reason for Consult: anemia, melena 12/04/18 23:52 Inpatient SALES COMPENSATION ANALYST Core Measures Referral Routine Comment: Physician Instructions: Reason For Exam: EVALUATION Nursing Referral for Wound Care Routine Comment: RIGHT HEEL OPEN WOUND HEALING Physician Instructions: Reason For Exam: EVALUATION Transition In Care/Readmission Reduction Routine Comment: Physician Instructions: Reason For Exam: EVALUATION 12/04/18 23:55 Nursing Referral for Palliative Care Routine Comment: Physician Instructions: Reason For Exam: EVALUATION 12/05/18 11:26 Nursing Referral for Wound Care Routine Comment: RIGHT HEEL PRESSURE ULCER STAGE 2 Physician Instructions: Reason For Exam: evaluation 12/05/18 14:36 Consult [Physician Consult] Routine Comment: Consulting Provider: Vinnie Cortés Consulting Physician: Vinnie Cortés Reason for Consult: right heel ulcer 12/06/18 16:03 Infectious Disease Consult Routine Comment: Consulting Provider: Rogers Butt Consulting Physician: Rogers Butt Reason for Consult: Gram (+) cocci in clusters in blood 12/08/18 15:22 Hematology Oncology Consult Routine Comment: Consulting Provider: José Manuel Hyde Consulting Physician: José Manuel Hyde Reason for Consult: L proximal subclavian thrombus 12/08/18 23:52 Nursing Referral for Wound Care Routine Comment: Physician Instructions: Reason For Exam: RT HEEL ULCER 12/09/18 13:12 Physician Consult Routine Comment: Consulting Provider: Luciano Renee Consulting Physician: Luciano Renee Reason for Consult: NSVT 12/09/18 20:34 Nursing Referral for Wound Care Routine Comment: Physician Instructions: Reason For Exam: rt heel ulcer 12/10/18 20:33 Nursing Referral for Wound Care Routine Comment: Physician Instructions: Reason For Exam: rt heel ulcer Time Spent in preparation of Discharge (in minutes): 60 Diagnosis - Discharge Diagnosis (1) Anemia Status: Acute (2) Coagulopathy Status: Acute (3) DVT (deep venous thrombosis) Status: Acute (4) CHF (congestive heart failure) Status: Chronic (5) CKD (chronic kidney disease) stage 3, GFR 30-59 ml/min Status: Chronic Hospital Course - Lab Results Lab Results: Micro Results 12/08/18 11:00 Blood Blood Culture - Final NO GROWTH AFTER 5 DAYS 12/08/18 11:00 Blood Gram Stain - Final TEST NOT PERFORMED 12/06/18 16:53 Blood Blood Culture - Final NO GROWTH AFTER 5 DAYS 12/06/18 16:53 Blood Gram Stain - Final TEST NOT PERFORMED 12/06/18 16:53 Blood Blood Culture - Final NO GROWTH AFTER 5 DAYS 12/06/18 16:53 Blood Gram Stain - Final TEST NOT PERFORMED 12/05/18 00:20 Blood S.aureus & Coag-Neg Staph PNA FISH - Final TEST NOT PERFORMED 12/05/18 00:20 Blood Blood Culture - Final Staphylococcus Epidermidis 12/05/18 00:20 Blood Gram Stain - Final 12/05/18 04:41 Urine,Catheterized Urine Culture - Final Klebsiella Pneumoniae Ssp Pneu Most Recent Lab Values WBC 10.3 10^3/uL (4.5-11.0) 12/17/18 06:00 RBC 3.00 10^6/uL (3.5-6.1) L 12/17/18 06:00 Hgb 8.8 g/dL (12.0-16.0) L 12/17/18 06:00 Hct 28.7 % (36.0-48.0) L 12/17/18 06:00 MCV 95.7 fl (80.0-105.0) 12/17/18 06:00 MCH 29.3 pg (25.0-35.0) 12/17/18 06:00 MCHC 30.7 g/dl (31.0-37.0) L 12/17/18 06:00 RDW 18.2 % (11.5-14.5) H 12/17/18 06:00 Plt Count 291 10^3/uL (120.0-450.0) 12/17/18 06:00 MPV 8.8 fl (7.0-11.0) 12/17/18 06:00 Neut % (Auto) 79.5 % (50.0-68.0) H 12/17/18 06:00 Lymph % (Auto) 8.5 % (22.0-35.0) L 12/17/18 06:00 [place] % (Auto) 7.0 % (1.0-6.0) H 12/17/18 06:00 Eos % (Auto) 4.9 % (1.5-5.0) 12/17/18 06:00 Baso % (Auto) 0.1 % (0.0-3.0) 12/17/18 06:00 Lymph # (Auto) 0.9 (1.2-3.4) L 12/17/18 06:00 [place] # (Auto) 0.7 (0.1-0.6) H 12/17/18 06:00 Eos # (Auto) 0.5 (0.0-0.7) 12/17/18 06:00 Baso # (Auto) 0.01 K/mm3 (0.0-2.0) 12/17/18 06:00 Absolute Neuts (auto) 8.21 (1.4-6.5) H 12/17/18 06:00 PT 24.6 SECONDS (9.4-12.5) H 12/12/18 05:45 INR 2.18 12/12/18 05:45 APTT 40.1 Seconds (26.9-38.3) H 12/12/18 05:45 Sodium 132 mmol/L (132-148) 12/17/18 06:00 Potassium 4.4 mmol/L (3.6-5.0) 12/17/18 06:00 Chloride 102 mmol/L (98-107) 12/17/18 06:00 Carbon Dioxide 26 mmol/L (21-33) 12/17/18 06:00 Anion Gap 9 (10-20) L 12/17/18 06:00 BUN 40 mg/dL (7-21) H 12/17/18 06:00 Creatinine 1.6 mg/dl (0.7-1.2) H 12/17/18 06:00 Est GFR ( Amer) 38 12/17/18 06:00 Est GFR (Non-Af Amer) 32 12/17/18 06:00 POC Glucose (mg/dL) 233 mg/dL (65-110) H 12/14/18 11:21 Random Glucose 100 mg/dL (70-110) 12/17/18 06:00 Calcium 8.0 mg/dL (8.4-10.5) L 12/17/18 06:00 Phosphorus 3.6 mg/dL (2.5-4.5) 12/10/18 12:35 Magnesium 1.7 mg/dL (1.7-2.2) 12/10/18 12:35 Iron 64 ug/dL (45-180) 12/06/18 07:00 TIBC 220 ug/dL (265-497) L 12/06/18 07:00 % Saturation 29 % (20-55) 12/06/18 07:00 Ferritin 322.0 ng/mL 12/06/18 07:00 Total Bilirubin 0.4 mg/dL (0.2-1.3) 12/17/18 06:00 AST 19 U/L (14-36) 12/17/18 06:00 ALT 15 U/L (7-56) 12/17/18 06:00 Alkaline Phosphatase 103 U/L (38-126) 12/17/18 06:00 Lactate Dehydrogenase 763 U/L (333-699) H 12/11/18 06:00 Total Creatine Kinase < 20 U/L (35-230) L 12/11/18 06:00 Troponin I 0.08 ng/mL D 12/11/18 06:00 Total Protein 5.0 g/dL (5.8-8.3) L 12/17/18 06:00 Albumin 2.1 g/dL (3.0-4.8) L 12/17/18 06:00 Globulin 2.9 gm/dL 12/17/18 06:00 Albumin/Globulin Ratio 0.7 (1.1-1.8) L 12/17/18 06:00 Lipase 35 U/L (23-300) 12/04/18 01:06 Vitamin B12 > 1000 pg/mL (239-931) H 12/12/18 05:45 Folate 17.7 ng/mL 12/06/18 07:00 TSH 3rd Generation 1.24 mIU/mL (0.46-4.68) 12/09/18 08:00 Urine Color Yellow (YELLOW) 12/05/18 04:41 Urine Appearance Cloudy (CLEAR) 12/05/18 04:41 Urine pH 6.0 (4.7-8.0) 12/05/18 04:41 Ur Specific [place] >= 1.030 (1.005-1.035) 12/05/18 04:41 Urine Protein >=300 mg/dL (<30 mg/dL) H 12/05/18 04:41 Urine Glucose (UA) Negative mg/dL (NEGATIVE) 12/05/18 04:41 Urine Ketones Negative mg/dL (NEGATIVE) 12/05/18 04:41 Urine Blood Trace-intact (NEGATIVE) H 12/05/18 04:41 Urine Nitrate Negative (NEGATIVE) 12/05/18 04:41 Urine Bilirubin Negative (NEGATIVE) 12/05/18 04:41 Urine Urobilinogen 0.2 E.U./dL (<1 E.U./dL) 12/05/18 04:41 Ur Leukocyte Esterase Moderate Collins/uL (NEGATIVE) H 12/05/18 04:41 Urine RBC 0 - 2 /hpf (0-2) 12/05/18 04:41 Urine WBC Tntc /hpf (0-6) H 12/05/18 04:41 Ur Epithelial Cells 0 - 2 /hpf (0-5) 12/05/18 04:41 Urine Bacteria Many /hpf (NONE) 12/05/18 04:41 Stool Occult Blood Positive (NEGATIVE) H 12/05/18 07:30 Digoxin 0.4 ng/mL (0.8-2.0) L 12/04/18 07:50 Blood Type AB POSITIVE 12/05/18 13:30 Antibody Screen Negative 12/05/18 13:30 Crossmatch See Detail 12/05/18 13:30 BBK History Checked Patient has bt 12/05/18 13:30 - Hospital Course Hospital Course: Martin Ochoa, PGY-1, Internal Medicine Discharge Summary for Dr. Gusman 73 year old female with past medical history of CAD s/p CABG, systolic CHF s/p AICD, dilated cardiomyopathy on home dobutamine, history of ischemic colitis s/p ileostomy, IDDM, PVD, HLD, and CKD who presented with abdominal pain X1 day. Patient reported she had no BM and was unable to pass flatus. CT of abd/pelvis upon admission exhibited moderate partial SBO, transition zone in R peristomal hernia of anterior abdominal wall overlying RLQ at site of colostomy, with no evidence of incarceration or pneumatosis intestinalis. Patient was admitted to Telemetry, given IVF at 60 cc/hr, placed NPO and patient subsequently had diet progressed and had resolution of partial SBO. Subsequently, patient was found to have gram + bacteremia with Staphylococcus epidermitis. As patient had PICC line, PICC line had to be removed, and PICC line was replaced in 48 hours with repeat blood cultures negative. Patient was later started on warfarin for left upper extremity DVT seen on ultrasound on 12/08 and later switched to eliquis as per Dr. Hyde recommendations. She was later found to have a right lower extremity DVT and as per Dr. Hyde, was continued on eliquis 5 mg BID. Patient had multiple episodes of nonsustained ventricular tachycardia. Dr. Renee, EP, had [employer] evaluate AICD, who changed no parameters. Patient had been changed to dobutamine from home milrinone on admission due to decreased blood pressure, but was switched back to milrinone after multiple episodes of NSVT. Patient had worsening of CHF and was started on lasix and stopped bumex. Patient's CHF improved. Patient was deconditioned as she had not been mobile for many days and physical therapy worked with her with some improvement. Patient will be discharged to [facility] for further reconditioning prior to returning to home. Patient was stable and ready for discharge on 12/17. She reported improvement of symptoms. She was told to follow up with PCP in 1-2 weeks. She was instructed to continue medications as prescribed. She was instructed to follow rehab regimen as instructed at [facility]. In addition, she was told to return to the emergency department if he had any recurring or new concerning symptoms. - Date & Time of H&P Date of H&P: 12/04/18 Time of H&P: 04:52 Discharge Exam - Head Exam Head Exam: NORMAL INSPECTION - Eye Exam Eye Exam: EOMI, PERRL - Respiratory Exam Respiratory Exam: Rales - Cardiovascular Exam Cardiovascular Exam: REGULAR RHYTHM, RRR - GI/Abdominal Exam GI & Abdominal Exam: Normal Bowel Sounds, Soft. absent: Tenderness - Extremities Exam Additional comments: +2/5 strength of bilateral lower extremities, +4/5 of LUE, +5/5 of RUE, +2 pitting edema of bilateral lower extremities - Neurological Exam Neurological exam: Alert, CN II-XII Intact, Oriented x3 Discharge Plan - Discharge Medications Prescriptions: Apixaban [Eliquis] 5 mg PO BID 30 Days #60 tab Furosemide 40 mg PO BID 30 Days #60 tablet Furosemide [Lasix] 40 mg IVP BID 30 Days #60 vial Milrinone 20mg/100ml D5W [Primacor 20mg/100ml D5W] 20 mg IV DAILY 30 Days #30 bag Spironolactone [Aldactone] 12.5 mg PO DAILY 3 Days #30 tab traMADol [Ultram] 50 mg PO Q8 PRN #90 tab PRN Reason: Pain, Severe (8-10) - Follow Up Plan Condition: STABLE Disposition: REHAB FACILITY/REHAB UNIT Instructions: Kidney Failure, Heart Failure (DC), Heart Failure (GEN), Pacemaker (DC), Pacemaker (GEN), Pulmonary Embolism (DC), Pulmonary Embolism (GEN), Pulmonary Edema (DC), Pulmonary Edema (GEN), Deep Venous Thrombosis (ED), Deep Venous Thrombosis (DC), Deep Venous Thrombosis (GEN), Leg Edema (ED), Ascites (DC), Ascites (GEN) Additional Instructions: Please follow up with your PMD in 7-14 days. Please take all medications as prescribed Please follow all directions at subacute rehabilitation facility. Please return to the emergency department if you have any new or concerning symptoms. Referrals: Yariel Flannery MD [Primary Care Provider] - <Hermila Gusman - Last Filed: 12/17/18 17:25> Provider - Provider Date of Admission: 12/04/18 09:40 Attending physician: Hermila Gusman MD Primary care physician: Yariel Flannery MD Consults: 12/04/18 05:16 Cardiology Consult Routine Comment: Consulting Provider: Vinnie Vidales Consulting Physician: Vinnie Vidales Reason for Consult: Hx CAD, s/p AICD, on dobutamine drip as home med, pt kn own to you 12/04/18 05:18 General Surgery Consult Routine Comment: Consulting Provider: Segundo Mercado Consulting Physician: Segundo Mercado Reason for Consult: partial SBO, hx colostomy 12/04/18 10:25 Gastroenterology Consult Routine Comment: Consulting Provider: Crystal Tomas V Consulting Physician: Crystal Tomas V Reason for Consult: anemia, melena 12/04/18 23:52 Inpatient SALES COMPENSATION ANALYST Core Measures Referral Routine Comment: Physician Instructions: Reason For Exam: EVALUATION Nursing Referral for Wound Care Routine Comment: RIGHT HEEL OPEN WOUND HEALING Physician Instructions: Reason For Exam: EVALUATION Transition In Care/Readmission Reduction Routine Comment: Physician Instructions: Reason For Exam: EVALUATION 12/04/18 23:55 Nursing Referral for Palliative Care Routine Comment: Physician Instructions: Reason For Exam: EVALUATION 12/05/18 11:26 Nursing Referral for Wound Care Routine Comment: RIGHT HEEL PRESSURE ULCER STAGE 2 Physician Instructions: Reason For Exam: evaluation 12/05/18 14:36 Consult [Physician Consult] Routine Comment: Consulting Provider: Vinnie Cortés Consulting Physician: Vinnie Cortés Reason for Consult: right heel ulcer 12/06/18 16:03 Infectious Disease Consult Routine Comment: Consulting Provider: Rogers Butt Consulting Physician: Rogers Butt Reason for Consult: Gram (+) cocci in clusters in blood 12/08/18 15:22 Hematology Oncology Consult Routine Comment: Consulting Provider: José Manuel Hyde Consulting Physician: José Manuel Hyde Reason for Consult: L proximal subclavian thrombus 12/08/18 23:52 Nursing Referral for Wound Care Routine Comment: Physician Instructions: Reason For Exam: RT HEEL ULCER 12/09/18 13:12 Physician Consult Routine Comment: Consulting Provider: Luciano Renee Consulting Physician: Luciano Renee Reason for Consult: NSVT 12/09/18 20:34 Nursing Referral for Wound Care Routine Comment: Physician Instructions: Reason For Exam: rt heel ulcer 12/10/18 20:33 Nursing Referral for Wound Care Routine Comment: Physician Instructions: Reason For Exam: rt heel ulcer Hospital Course - Lab Results Lab Results: Micro Results 12/08/18 11:00 Blood Blood Culture - Final NO GROWTH AFTER 5 DAYS 12/08/18 11:00 Blood Gram Stain - Final TEST NOT PERFORMED 12/06/18 16:53 Blood Blood Culture - Final NO GROWTH AFTER 5 DAYS 12/06/18 16:53 Blood Gram Stain - Final TEST NOT PERFORMED 12/06/18 16:53 Blood Blood Culture - Final NO GROWTH AFTER 5 DAYS 12/06/18 16:53 Blood Gram Stain - Final TEST NOT PERFORMED 12/05/18 00:20 Blood S.aureus & Coag-Neg Staph PNA FISH - Final TEST NOT PERFORMED 12/05/18 00:20 Blood Blood Culture - Final Staphylococcus Epidermidis 12/05/18 00:20 Blood Gram Stain - Final 12/05/18 04:41 Urine,Catheterized Urine Culture - Final Klebsiella Pneumoniae Ssp Pneu Most Recent Lab Values WBC 10.3 10^3/uL (4.5-11.0) 12/17/18 06:00 RBC 3.00 10^6/uL (3.5-6.1) L 12/17/18 06:00 Hgb 8.8 g/dL (12.0-16.0) L 12/17/18 06:00 Hct 28.7 % (36.0-48.0) L 12/17/18 06:00 MCV 95.7 fl (80.0-105.0) 12/17/18 06:00 MCH 29.3 pg (25.0-35.0) 12/17/18 06:00 MCHC 30.7 g/dl (31.0-37.0) L 12/17/18 06:00 RDW 18.2 % (11.5-14.5) H 12/17/18 06:00 Plt Count 291 10^3/uL (120.0-450.0) 12/17/18 06:00 MPV 8.8 fl (7.0-11.0) 12/17/18 06:00 Neut % (Auto) 79.5 % (50.0-68.0) H 12/17/18 06:00 Lymph % (Auto) 8.5 % (22.0-35.0) L 12/17/18 06:00 [place] % (Auto) 7.0 % (1.0-6.0) H 12/17/18 06:00 Eos % (Auto) 4.9 % (1.5-5.0) 12/17/18 06:00 Baso % (Auto) 0.1 % (0.0-3.0) 12/17/18 06:00 Lymph # (Auto) 0.9 (1.2-3.4) L 12/17/18 06:00 [place] # (Auto) 0.7 (0.1-0.6) H 12/17/18 06:00 Eos # (Auto) 0.5 (0.0-0.7) 12/17/18 06:00 Baso # (Auto) 0.01 K/mm3 (0.0-2.0) 12/17/18 06:00 Absolute Neuts (auto) 8.21 (1.4-6.5) H 12/17/18 06:00 PT 24.6 SECONDS (9.4-12.5) H 12/12/18 05:45 INR 2.18 12/12/18 05:45 APTT 40.1 Seconds (26.9-38.3) H 12/12/18 05:45 Sodium 132 mmol/L (132-148) 12/17/18 06:00 Potassium 4.4 mmol/L (3.6-5.0) 12/17/18 06:00 Chloride 102 mmol/L (98-107) 12/17/18 06:00 Carbon Dioxide 26 mmol/L (21-33) 12/17/18 06:00 Anion Gap 9 (10-20) L 12/17/18 06:00 BUN 40 mg/dL (7-21) H 12/17/18 06:00 Creatinine 1.6 mg/dl (0.7-1.2) H 12/17/18 06:00 Est GFR ( Amer) 38 12/17/18 06:00 Est GFR (Non-Af Amer) 32 12/17/18 06:00 POC Glucose (mg/dL) 233 mg/dL (65-110) H 12/14/18 11:21 Random Glucose 100 mg/dL (70-110) 12/17/18 06:00 Calcium 8.0 mg/dL (8.4-10.5) L 12/17/18 06:00 Phosphorus 3.6 mg/dL (2.5-4.5) 12/10/18 12:35 Magnesium 1.7 mg/dL (1.7-2.2) 12/10/18 12:35 Iron 64 ug/dL (45-180) 12/06/18 07:00 TIBC 220 ug/dL (265-497) L 12/06/18 07:00 % Saturation 29 % (20-55) 12/06/18 07:00 Ferritin 322.0 ng/mL 12/06/18 07:00 Total Bilirubin 0.4 mg/dL (0.2-1.3) 12/17/18 06:00 AST 19 U/L (14-36) 12/17/18 06:00 ALT 15 U/L (7-56) 12/17/18 06:00 Alkaline Phosphatase 103 U/L (38-126) 12/17/18 06:00 Lactate Dehydrogenase 763 U/L (333-699) H 12/11/18 06:00 Total Creatine Kinase < 20 U/L (35-230) L 12/11/18 06:00 Troponin I 0.08 ng/mL D 12/11/18 06:00 Total Protein 5.0 g/dL (5.8-8.3) L 12/17/18 06:00 Albumin 2.1 g/dL (3.0-4.8) L 12/17/18 06:00 Globulin 2.9 gm/dL 12/17/18 06:00 Albumin/Globulin Ratio 0.7 (1.1-1.8) L 12/17/18 06:00 Lipase 35 U/L (23-300) 12/04/18 01:06 Vitamin B12 > 1000 pg/mL (239-931) H 12/12/18 05:45 Folate 17.7 ng/mL 12/06/18 07:00 TSH 3rd Generation 1.24 mIU/mL (0.46-4.68) 12/09/18 08:00 Urine Color Yellow (YELLOW) 12/05/18 04:41 Urine Appearance Cloudy (CLEAR) 12/05/18 04:41 Urine pH 6.0 (4.7-8.0) 12/05/18 04:41 Ur Specific [place] >= 1.030 (1.005-1.035) 12/05/18 04:41 Urine Protein >=300 mg/dL (<30 mg/dL) H 12/05/18 04:41 Urine Glucose (UA) Negative mg/dL (NEGATIVE) 12/05/18 04:41 Urine Ketones Negative mg/dL (NEGATIVE) 12/05/18 04:41 Urine Blood Trace-intact (NEGATIVE) H 12/05/18 04:41 Urine Nitrate Negative (NEGATIVE) 12/05/18 04:41 Urine Bilirubin Negative (NEGATIVE) 12/05/18 04:41 Urine Urobilinogen 0.2 E.U./dL (<1 E.U./dL) 12/05/18 04:41 Ur Leukocyte Esterase Moderate Collins/uL (NEGATIVE) H 12/05/18 04:41 Urine RBC 0 - 2 /hpf (0-2) 12/05/18 04:41 Urine WBC Tntc /hpf (0-6) H 12/05/18 04:41 Ur Epithelial Cells 0 - 2 /hpf (0-5) 12/05/18 04:41 Urine Bacteria Many /hpf (NONE) 12/05/18 04:41 Stool Occult Blood Positive (NEGATIVE) H 12/05/18 07:30 Digoxin 0.4 ng/mL (0.8-2.0) L 12/04/18 07:50 Blood Type AB POSITIVE 12/05/18 13:30 Antibody Screen Negative 12/05/18 13:30 Crossmatch See Detail 12/05/18 13:30 BBK History Checked Patient has bt 12/05/18 13:30 Attending/Attestation - Attestation I have personally seen and examined this patient.: Yes I have fully participated in the care of the patient.: Yes I have reviewed all pertinent clinical information, including history, physical exam and plan: Yes Notes (Text): 12/17/18 17:22 73 year old female with past medical history of CAD s/p CABG, systolic CHF s/p AICD, dilated cardiomyopathy on home dobutamine, history of ischemic colitis s/p ileostomy, and CKD who presented initally with abdominal pain found to have partial SBO, now resolved. She is tolerating diet and having bowel movements. She was also found to have staph epidermidis bacteremia and klebsiella UTI for which she was started on iv antibiotics. She has completed course of antibiotics. Repeat cultures are negative. Picc line was removed and replaced. She is on anticoagulation for left subclavian vein thrombus and now also right posterior tibial thrombus. She will need at least 3 months of anticoagulation as per hematology. She had episode of NSVT last week. Dobutamine drip was discontinued. EPS evaluation was appreciated. AICD was interrogated. Patient was started on lasix, aldactone and milrinone drip for CHF as per cardiology with improvement of symptoms. She was seen by PT who recommended [facility] which patient and are agreeable for today. Patient is discharged to [facility]. Follow up with pmd. Follow up with cardiology. Follow up with hematology. Continue with anticoagulation for at least 3 months. Hermila Gusman MD Hospitalist.
--- NOTE | 2018-12-17 17:37 | PN ---
DATE: 12/17/2018 CARDIOLOGY FOLLOWUP SUBJECTIVE: The patient's pain is much improved. The patient is without shortness of breath. PHYSICAL EXAMINATION: VITAL SIGNS: Blood pressure is 139/64, the heart rate is 98. Normal sinus rhythm. NECK: Negative JVD. LUNGS: No rales noted. HEART: Reveals S1, S2. EXTREMITIES: Without edema. Her pain in her hip is better. LABORATORY DATA: Hemoglobin is 8.8. Chemistries, BUN and creatinine are 40 and 1.6. IMPRESSION: 1. End-stage dilated cardiomyopathy. 2. Resolution of congestive heart failure. 3. Renal insufficiency. 4. Paroxysmal atrial fibrillation. 5. Coronary artery disease. 6. Diabetes mellitus. Given these findings, the patient is stable for discharge. Her ventricular arrhythmias are well controlled. The patient is for transfer to subacute rehab today. Vinnie Vidales MD
--- NOTE | 2018-12-17 21:14 | CP.PCM.PN ---
Subjective - Date & Time of Evaluation Date of Evaluation: 12/17/18 Time of Evaluation: 15:00 - Subjective Subjective: Feeling better, for rehab placement at bedside. Objective - Vital Signs/Intake and Output Vital Signs (last 24 hours): Temp Pulse Resp BP Pulse Ox 98.2 F 102 H 18 139/64 97 12/17/18 12:00 12/17/18 15:00 12/17/18 12:00 12/17/18 17:59 12/17/18 06:00 Intake and Output: 12/17/18 12/18/18 18:59 06:59 Intake Total 780 Output Total 600 Balance 180 - Labs Labs: 12/17/18 06:00 12/17/18 06:00 PT 24.6 SECONDS (9.4-12.5) H 12/12/18 05:45 INR 2.18 12/12/18 05:45 APTT 40.1 Seconds (26.9-38.3) H 12/12/18 05:45 - Head Exam Head Exam: ATRAUMATIC - Eye Exam Eye Exam: Normal appearance - ENT Exam ENT Exam: Mucous Membranes Dry - Respiratory Exam Respiratory Exam: NORMAL BREATHING PATTERN - Cardiovascular Exam Cardiovascular Exam: +S1, +S2 - GI/Abdominal Exam GI & Abdominal Exam: Normal Bowel Sounds Assessment and Plan (1) DVT (deep venous thrombosis) Assessment & Plan: provoked from immobility on anticoagulation Status: Acute (2) Anemia Assessment & Plan: chronic disease Status: Acute (3) Coagulopathy Assessment & Plan: anticoagulation Status: Acute
== END 2018-12-17 18:40 | DRG 394 ==
LOC: ED 00:20 → ERH 03:42 → OBSVTOIN 09:40 → ERH 21:56 → 3RNO 22:49 → 2RNO 12-12 15:14
PROVIDERS: ADMIT Internal Medicine; ATTEND Internal Medicine
PROC: 30233N1 Transfusion of Nonautologous Red Blood Cells into Peripheral Vein, Percutaneous Approach (ICD-10-PCS; principal; 2018-12-05)
PROC: 02PYX3Z Removal of Infusion Device from Great Vessel, External Approach (ICD-10-PCS; 2018-12-08)
PROC: 02HV33Z Insertion of Infusion Device into Superior Vena Cava, Percutaneous Approach (ICD-10-PCS; 2018-12-09)
PROC: B548ZZA Ultrasonography of Superior Vena Cava, Guidance (ICD-10-PCS; 2018-12-09)
PROC: 4B02XTZ Measurement of Cardiac Defibrillator, External Approach (ICD-10-PCS; 2018-12-12)
DX: K43.3 Parastomal hernia with obstruction, without gangrene (principal); I42.0 Dilated cardiomyopathy; T80.218A Other infection due to central venous catheter, initial encounter; I13.0 Hypertensive heart and chronic kidney disease with heart failure and stage 1 through stage 4 chronic kidney disease, or unspecified chronic kidney disease; I50.22 Chronic systolic (congestive) heart failure; N18.4 Chronic kidney disease, stage 4 (severe); K92.1 Melena; D62 Acute posthemorrhagic anemia; I82.B12 Acute embolism and thrombosis of left subclavian vein; I47.2 Ventricular tachycardia; N39.0 Urinary tract infection, site not specified; R78.81 Bacteremia; I82.449 Acute embolism and thrombosis of unspecified tibial vein; E87.1 Hypo-osmolality and hyponatremia; I82.431 Acute embolism and thrombosis of right popliteal vein; L89.612 Pressure ulcer of right heel, stage 2; E11.40 Type 2 diabetes mellitus with diabetic neuropathy, unspecified; E11.22 Type 2 diabetes mellitus with diabetic chronic kidney disease; E11.51 Type 2 diabetes mellitus with diabetic peripheral angiopathy without gangrene; I25.5 Ischemic cardiomyopathy; I25.10 Atherosclerotic heart disease of native coronary artery without angina pectoris; D63.1 Anemia in chronic kidney disease; I27.20 Pulmonary hypertension, unspecified; E87.5 Hyperkalemia; E78.00 Pure hypercholesterolemia, unspecified; B96.1 Klebsiella pneumoniae [K. pneumoniae] as the cause of diseases classified elsewhere; I34.0 Nonrheumatic mitral (valve) insufficiency; E78.5 Hyperlipidemia, unspecified; L98.429 Non-pressure chronic ulcer of back with unspecified severity; G89.29 Other chronic pain; I48.0 Paroxysmal atrial fibrillation; G47.00 Insomnia, unspecified; Z66 Do not resuscitate; I25.2 Old myocardial infarction; Z79.4 Long term (current) use of insulin; Z93.2 Ileostomy status; Z89.422 Acquired absence of other left toe(s); Z95.810 Presence of automatic (implantable) cardiac defibrillator; Z95.1 Presence of aortocoronary bypass graft; Z86.79 Personal history of other diseases of the circulatory system; Z90.49 Acquired absence of other specified parts of digestive tract